=== PATIENT | male | born 1945 | race Caucasian/White ===

== ENCOUNTER → 2023-12-17 | Outpatient (CLI) | payer MEDICARE, BC, SELFPAY ==
--- NOTE | 2023-12-17 | IMM_PTH ---
PATIENT: NANCY SY LOC: [facility] U#:[id number] AGE/SX: 78/M ROOM: RE12/17/[address]: Dr. Brody Topete DO : 1945 BED: DIS: 12/17/2023 SPEC #: [id number] RECD: 12/19/23 13:13 STATUS: JULIANNE REQ #: [id number] TIMUR: 12/17/23 00:[address]: Brody Topete DEPT: IMMUNOHISTOCHEMISTRY RECD BY: Ángel Ye ENTERED: 12/19/23 13:15 SP TYPE: IMMUNO OTHR DR: Dr. George Garrett MD Tissues: Vertebra, NOS Procedures: CD138 (add) CD20 (add) CD3 (add) CD45 (add) CD5 (add) CD79A (add) KAPPA (add) KI-67 (add) LAMBDA (add) P53 (add) Pankeratin (initial) PHYSICIAN & INSTITUTION [address] [address] SPECIMEN INFORMATION: Tissue Source: T-11 kyphoplasty Clinical Info: Wedge compression fracture, T11 Specimen Number: [id number] CPT code: 22256,63694f54 METHODOLOGY: Deparaffinized sections of prefer/formalin-fixed tissue or PAP/DQ stained slides are incubated with monoclonal/polyclonal antibodies/oligonucleotide probes. Localization is made via biotin free immunoperoxidase method. Appropriate controls are performed and reacted as expected. Results on target cell population are indicated in the following table: RESULTS: ANTIBODY / CLONE RESULT AE1-3 (AE1/AE3/PCK26) negative CD3 (PS1) positive CD5 (SP10) positive CD20 (L26) positive, a few cells CD45 (RP2/18) positive CD79a (11E3) positive CD138 (B-A38) positive [place] (polyclonal) positive Lambda (polyclonal) positive P53 (DO-7) negative (null pattern) Ki-67 (30-9) positive, moderate These tests were developed and their performance characteristics determined by [facility]. They may not have been cleared or approved by the U.S. Food and Drug Administration. The FDA has determined that such clearance or approval is not necessary. The above immunohistochemical/dualISH markers are ordered by Dr. Trino Watts and reviewed by the Pathologist. INTERPRETATION: Thoracic 11 vertebral bone: A piece of bone with reactive changes. Plasma cells, polytypic in nature. Negative for malignancy. SJ/mr 12/22/23
--- NOTE | 2023-12-17 07:30 | BONBX_PTH ---
PATIENT: NANCY SY [facility] U#:[id number] AGE/SX: 78/M ROOM: RE12/17/[address]: Dr. Brody Topete DO : 1945 BED: DIS: 12/17/2023 SPEC #: [id number] RECD: 12/17/23 15:20 STATUS: JULIANNE REKalina #: [id number] TIMUR: 12/17/23 07:[address]: Brody Topete DEPT: SURGICAL PATHOLOGY RECD BY: Kaitlin Mahajan ENTERED: 12/18/23 10:14 SP TYPE: Bone OTHR DR: Dr. George Garrett MD [facility] Tissues: Vertebra, NOS Procedures: Decalcification bone/plaque Surgery Specimen Level V HEADER OPERATION: Thoracic 11 kyphoplasty PRE-OP DIAGNOSIS: Wedge compression fracture, T11 TISSUE SUBMITTED: Thoracic 11 vertebral body bone MICROSCOPIC DIAGNOSIS T 11 vertebral body, core biopsy: Chronic repair to reactive change. Polytypic (benign) plasma cell population. See comment. / 12/19/2023 COMMENT Findings are consistent with fracture site. Clinical correlation is suggested. Immunohistochemistry ([id number]) supports the above diagnosis. Case has been reviewed in consultation with Dr. Blackwood who concurs with the above diagnosis. IDC:CATERINA MICROSCOPIC DESCRIPTION Slides are reviewed. GROSS DESCRIPTION Received in fixative is one container labeled with the patient's name and designated Vertebral body T11. The specimen consists of an elongated piece of bone measuring 1.0cm in length and 0.1cm in diameter. The entire specimen is submitted in one cassette after decalcification. CATERINA/ 12/18/2023 TC:3 CPT:16218,02481
== END | disposition home or self-care (01) ==
LOC: LABSPEC 15:20
PROVIDERS: PCP Family Medicine; Visit Provider Orthopaedic Surgery
DX: M48.54XA Collapsed vertebra, not elsewhere classified, thoracic region, initial encounter for fracture (principal)
CPT/HCPCS: 88307; 88311; 88341; 88342

== ENCOUNTER 2024-01-22 16:00 | Outpatient (RCR) | payer MEDICARE, BC, SELFPAY ==
--- NOTE | 2024-01-13 16:40 | HP.PTEVAL_ITS ---
Patient's Visit Information Visit Information Visit Information: NANCY SY is a 78 year old M referred to Physical Therapy by Dr. Brody Topete, DO with a diagnosis of WEDGE COMPRESSION FRACTURE T11-T12 VERTEBRA, DDD LUMBAR. Date of Evaluation: 01/13/24 Physical Therapist: Mark Fuentes, PT, Cert MDT, OCS Visit Plan Frequency: 2-3x /Week Duration: 4-6 Weeks Plan: S/P THORACIC KYPHOPLASTY T11-12 5~ 5 WEEKS AGO PRECAUTION: OSTEOPOROSISAND PT INTERVENTIONS DLS, POSTURAL EX'S , LE FLEXABILITY , BALANCE PROGRAM , FUNCTIONAL STRENGTHENING AND MODALITIES NEEDED Subjective Subjective: This 78 y/o male presents to physical therapy with lumbar pain due to compression fracture. Patient fell Dec 3 at home . Patient fell forward . Patient to ER at [facility] did x-rays lumbar DDD. Patient pain worse thus seen DR Topete did x-rays thoracic spine and MRI showed compression fracture T11-T12. Patient had kyphoplasty T11-T12 ~ 5 weeks . Patient continue to have pain lumbar and ~ 2weeks ago had epidural injection lumbar. Patient located symmetrical lumbar. Aggravating factors walk/standing ~ 10mins ,lifting bending affect housework tasks and ADLS. Alleviating factors sitting and rest. Described ache . Coughing/sneezing-. Bowel/bladder -Denies paresthesia/tingling. Patient is good because laying flat. No prior PT. Medication Hydrocodone Patient condition affects QOL and function. Patient goals to decrease pain. 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: unremarkable FLEXABILITY: severe hamstring tightness MMT: quads/hams 4/5 ,hip flexion 4/5 ,hip abduction 4-/5 ,ankle 4/5 LUMBAR ROM: flexion mod loss ,extension mod/severe loss ,side glides mod loss Special Tests L/S Slump test left side: Negative L/S Slump test right side: Negative L/S Left Straight Leg Raise: Negative L/S Right Straight Leg Raise: Negative Balance/Special Test Scores Functional Gait Assessment Score: 12 % Disability: 60.0000 Oswestry Low Back Score: 33 Goals Goal 1:: Patient to be I with HEP for back Goal Time Frame: 4-6 Weeks Goal 2:: Patient to improve 50% function and less pain to improve ADLS Goal Time Frame: 4-6 Weeks Goal 3:: Patient to improve back oswestry score by 5 points to improve QOL and function. Goal Time Frame: 4-6 Weeks Goal 4:: Patient to be improve lumbar ROM for function of recovery to put on shoes. Goal Time Frame: 4-6 Weeks Goal 5:: Patient to improve functional gait assessment score by 5 points to improve QOL and decrease risk of falls Goal Time Frame: 4-6 Weeks Rehabilitation Potential Physical Therapy Diagnosis: Patient had compression fracture from T11-T12 with kyphoplasty ~ 5 weeks ago with weakness unsteady with gait and lumbar pain with walking and standing , < 10mins impairs function and ADL's thus benefit from skilled PT Rehabilitation Potential: Good Anticipated Interventions Patient/Client Instruction: Educate patient on: Condition and Plan of Care For the Purpose of:: To decrease pain, To increase ROM, To improve muscle performance and motor function, To improve ability to perform ADL's, To increase tolerance to activity/condition/position, To improve ability of physical actions for home/community/work/leisure, To improve health of tissue, To decrease soft tissue restriction and To increase flexibility/ROM Therapeutic Exercise to Include: Strength training, Endurance training, Body mechanics, Postural training, Flexibilty training and Dynamic Lumbar Stabilization For the Purpose of:: To decrease pain, To increase ROM, To improve muscle performance and motor function, To improve ability to perform ADL's, To increase tolerance to activity/condition/position, To improve ability of physical actions for home/community/work/leisure, To improve health of tissue, To decrease soft tissue restriction, To increase flexibility/ROM, To reduce risk of recurrence and To improve tolerance to ADL's TENS: Yes IF ES: Yes Cryotherapy (ice pack, ice massage): Yes Thermo therapy (hot pack): Yes Ultrasound (thermal/non thermal): Yes For the Purpose of:: To decrease pain, To improve nutrient delivery to tissue, To increase oxygenation perfusion, To improve health of tissue and To decrease soft tissue restriction Text: Thank you for the opportunity to evaluate your patient. For Medicare and Medicare HMO plans, please review the plan of care and approve it. It will need to be FAXED BACK to us at [phone] for Medicare purposes. For Medicare only, by signing this I certify the plan of care. Please let me know if there are questions or concerns regarding this plan of care. Physician Signature: Date:
--- NOTE | 2024-04-02 11:50 | HP.PT.NRP ---
Patient Information Patient Information: NANCY SY was seen in my office for initial evaluation on 01/13/24. The following Plan of Care was established for this patient: POC Established Initial Frequency: 2-3x /Week Initial Duration: 4-6 Weeks Anticipated Interventions Patient/Client Instruction: Educate patient on: Condition and Plan of Care For the Purpose of:: To decrease pain, To increase ROM, To improve muscle performance and motor function, To improve ability to perform ADL's, To increase tolerance to activity/condition/position, To improve ability of physical actions for home/community/work/leisure, To improve health of tissue, To decrease soft tissue restriction and To increase flexibility/ROM Therapeutic Exercise to Include: Strength training, Endurance training, Body mechanics, Postural training, Flexibilty training and Dynamic Lumbar Stabilization For the Purpose of:: To decrease pain, To increase ROM, To improve muscle performance and motor function, To improve ability to perform ADL's, To increase tolerance to activity/condition/position, To improve ability of physical actions for home/community/work/leisure, To improve health of tissue, To decrease soft tissue restriction, To increase flexibility/ROM, To reduce risk of recurrence and To improve tolerance to ADL's TENS: Yes IF ES: Yes Cryotherapy (ice pack, ice massage): Yes Thermo therapy (hot pack): Yes Ultrasound (thermal/non thermal): Yes For the Purpose of:: To decrease pain, To improve nutrient delivery to tissue, To increase oxygenation perfusion, To improve health of tissue and To decrease soft tissue restriction Last Seen Last Seen: This patient was last seen in our office . Pertinent comments regarding their Physical therapy will appear below: Patient seen for WEDGE COMPRESSION FRACTURE T11-T12 VERTEBRA, DDD LUMBAR for HEP and postural strengthening and D/C At this point I will be discontinuing this patient from physical therapy. I would be happy to see this patient again in the future if found appropriate by the physician. Thank you! Mark Fuentes, PT, Cert MDT, OCS Balance/Gait/Functional tests Balance/Special Test Scores Functional Gait Assessment Score: 12 % Disability: 60.0000 Oswestry Low Back Score: 33
== END 2024-01-22 19:00 | disposition home or self-care (01) ==
LOC: PT 16:00
PROVIDERS: PCP Nurse Practitioner Primary Care; Referring Provider Orthopaedic Surgery; Visit Provider Orthopaedic Surgery
DX: S22.080D Wedge compression fracture of T11-T12 vertebra, subsequent encounter for fracture with routine healing (principal); M51.36 Other intervertebral disc degeneration, lumbar region; M80.88XD Other osteoporosis with current pathological fracture, vertebra(e), subsequent encounter for fracture with routine healing
CPT/HCPCS: 97110; 97162

== ENCOUNTER 2025-03-23 15:58 | Inpatient (IN) | payer MEDICARE, BC, SELFPAY ==
[2025-03-23] VITALS (16 sets, daily range): BP systolic 117–165; BP diastolic 64–89; PULSE 93–106; RESP 16–23; TEMP 36.6–36.9; O2SAT 92–98; BMI 27.4; BMI 26.6
--- NOTE | 2025-03-23 17:04 | EX.ED.DYSGE1 ---
HPI History of Present Illness Chief Complaint: [facility] Medical History CKD (chronic kidney disease), stage II Former tobacco use BPH (benign prostatic hyperplasia) HLD (hyperlipidemia) Chronic anemia Pancreatitis Osteoporosis Osteopenia Kidney stones Arthritis Allergies Hemorrhoids Hypertension Home Medications ?Medication ?Instructions ?Recorded ?Last Taken ?Type carvedilol 3.125 mg tablet 3.125 mg PO BID 07/09/23 03/22/25 History amlodipine 10 mg tablet 10 mg PO QDAY 07/26/24 03/22/25 History buspirone 15 mg tablet 15 mg PO BID 07/26/24 03/22/25 History calcium carbonate 1,000 mg PO QDAY 07/26/24 03/22/25 History cyanocobalamin (vitamin B-12) 1,000 mcg PO QDAY 07/26/24 03/22/25 History 1,000 mcg capsule losartan 25 mg tablet 100 mg PO DAILY 07/26/24 03/22/25 History melatonin 5 mg capsule mg PO 07/26/24 03/22/25 History paroxetine HCl 40 mg tablet 40 mg PO QDAY 07/26/24 03/22/25 History tamsulosin 0.4 mg capsule (Flomax) 0.4 mg PO QDAY 07/26/24 03/22/25 History cholecalciferol (vitamin D3) 1,250 1,250 mcg PO QWEEK 09/23/24 Unknown History mcg (50,000 unit) capsule acetaminophen 325 mg tablet 650 mg PO Q6H PRN pain 03/23/25 03/23/25 History (Tylenol) Allergy/AdvReac Type Severity Reaction Status Date / Time No Known Allergies Allergy Verified 03/23/25 16:56 Family History Father Alcoholism Brother Depression Suicide attempt Grandmother Parkinson disease Sister Osteoporosis Mother Non-alcoholic cirrhosis Surgical History S/P tonsillectomy S/P appendectomy Hx of cholecystectomy Social History household members: spouse Smoking Status: Former smoker how long ago did patient quit smoking: Quit pipe smoking 15 yrs prior, smoked since 14 ~20 refill/day. alcohol intake: never substance use type: does not use EXAM Physical Exam Const Vital Signs: 03/23/25 15:59 03/23/25 16:56 03/23/25 18:00 Temperature 98.4 F Temperature Source Oral Pulse Rate 102 H 94 Respiratory Rate 16 18 Respiratory Effort Normal Respiratory Pattern Normal Blood Pressure 134/80 H 149/80 H Blood Pressure Mean 98 103 Pulse Ox 94 95 Oxygen Delivery Method Room Air Room Air 03/23/25 19:24 03/23/25 19:30 03/23/25 19:45 Temperature Temperature Source Pulse Rate 93 93 Respiratory Rate 19 H 21 H Respiratory Effort Respiratory Pattern Blood Pressure 148/80 H Blood Pressure Mean 100 Pulse Ox 94 95 Oxygen Delivery Method 03/23/25 20:00 03/23/25 20:00 03/23/25 20:01 Temperature 97.9 F Temperature Source Pulse Rate 97 97 97 Respiratory Rate 20 H 19 H 16 Respiratory Effort Respiratory Pattern Blood Pressure 165/84 H 165/84 H 165/84 H Blood Pressure Mean 111 105 111 Pulse Ox 95 92 98 Oxygen Delivery Method Room Air MDM MDM MDM Narrative Medical decision making narrative: HISTORY OF PRESENT ILLNESS: Chief complaint: Lower extremity swelling, difficulty ambulating 80-year-old male history of osteoporosis, hypertension, presents with a myriad complaints. States last 2 weeks has had worsening swelling in bilateral lower extremities. His daughter and state he started a water pill 2 weeks ago and use it for 3 days but did not relieve his symptoms. Patient is also concerned about difficulty walking and balance issues. Also concerned about chronic back pain. He states balance issues have made been made worse by swelling. He notes shortness of breath and dyspnea on exertion. Denies cough fever chills. Denies any bleeding diathesis. Denies any palpitations. Denies any history of liver dysfunction, alcohol abuse. Denies decreased urination or history of kidney dysfunction. In terms of balance issues his last fall was 1 month ago and has had no imaging of his back despite recent hospitalization. Patient denies active cancer, being bedridden for greater than 3 days, denies unilateral leg swelling, denies any varicose veins, denies any calf tenderness, denies tenderness along deep venous system. Denies major surgery within 12 weeks, recent paralysis, previous DVT. Of note the patient notes a fall approximate 1 month ago which he injured his back. He notes he has a history of compression fractures in the back and this was never evaluated despite his recent hospitalization because his pain was thought to be due to already known compression fractures. REVIEW OF SYSTEMS: Pertinent positives: Leg swelling, shortness of breath, back pain, balance difficulties Pertinent negatives: As per HPI PHYSICAL EXAM: Nursing triage notes reviewed, Vital signs reviewed Constitutional: Elderly, chronically ill-appearing male HENT: MMM Eyes: Pupils equal round and reactive to light, Extraocular muscles intact Neck: No stridor, no JVD, full neck ROM Lungs: Clear to auscultation, No wheezing or rales. No increased work of breathing, no conversational dyspnea, no accessory muscle use, no nasal flaring. No respiratory distress noted Heart: Regular rate and rhythm, No murmurs, No rubs and No gallops, 2+ distal pulses (radial, femoral, posterior tibial) in all extremities Abdomen: Soft, there is no tenderness, rigidity, rebound or guarding, no obvious peritoneal signs, no palpable pulsatile abdominal masses, no auscultated abdominal bruit : No CVAT Back: TTP over thoracolumbar junction Extremities: 3+ pitting edema bilaterally, no calf tenderness, no rashes or signs of infection. Compartments are soft Neuro: No new focal neurological deficits, cranial nerves II through XII intact, 5/5 strength in all present extremities. Intact sensation to light touch in all present extremities, 2+ reflexes bilateral patella tendons. Skin: Skin pallor noted MEDICAL DECISION MAKING: Chief Complaint: please see HPI External records reviewed: Reviewed prior outpatient visits, reviewed medications Factors affecting care: As per HPI Social determinants of health: Elderly History obtained from others: Family Consults: Hospitalist (Dr. Pham) recommended inpatient admission. [facility] Narrative: The patient was initially hemodynamically stable, afebrile and nontoxic-appearing. Exam without focal neurologic deficit. No ataxia, truncal ataxia. Gait was short and shuffling but not ataxic. Cardiopulmonary exam unremarkable for rales or signs of respiratory distress. Lower extremities with symmetric 3+ pitting edema bilaterally. I considered the following differential diagnosis: ICH, intracranial mass, CVA, bony injury to thoracic lumbar spine, ACS, arrhythmia, CHF, liver failure, kidney failure, venous insufficiency I obtained a broad lab and imaging workup to further determine if the patient was suffering from a life-threatening etiology. ALL IMAGES (IF OBTAINED) HAVE BEEN PERSONALLY REVIEWED AND INTERPRETED BY MYSELF. Chest x-ray was read and reviewed personally myself showed no evidence of obvious pneumonia, pneumothorax or heart failure. Radiologist agreed my interpretation CT scan of the brain shows no evidence of ICH CT scan of the thoracic spine is remarkable for T9 compression fracture [address] scan of the lumbar spine compression fracture L1 vertebra Bilateral DVT ultrasounds negative for acute DVT CBC without leukocytosis, mild anemia, no thrombocytopenia BMP without significant electrolyte abnormalities, no acute kidney injury, LFTs without evidence of hepatobiliary obstruction Initial troponin negative. Delta troponin remains negative, third troponin remains negative effectively ruling out ACS The synthesis of the patient's history, physical exam, labs and images suggest venous insufficiency causing lower extremity edema. Chronic compression fractures of the T and L-spine that are causing immobility and difficulty ambulating. Given his advanced age and his difficulty performing ADLs he will require admission to the hospital for further evaluation, management and possible placement. Discussed with hospitalist Dr. Pham The patient and/or family, caregivers express understanding. The patient and/or family, caregivers agrees with the plan. Shared decision making: I will have a discussion with the patient and or visitors regarding risk/benefits of further testing or admission. They will be made aware of of the risk/benefits inherent in this decision they will be given the opportunity to voice understanding. Total critical care time today provided was at least 0 minutes. This excludes separately billable procedures. Critical care time (if documented) is secondary to the patient having high probability of clinically significant/life threatening deterioration in the patient's condition which required my urgent intervention. Impression: 1. Bilateral lower extremity edema 2. Gait dysfunction 3. T9 compression fracture 4. L1 compression fracture Dispo: Admit This note was generated with [employer] dictation software. It may contain incorrect words, spelling, and punctuation that were not noted in review of the chart prior to signing. Lab Data Labs: Laboratory Results - last 24 hr 03/23/25 03/23/25 17:41 19:41 WBC 8.0 RBC 3.92 L Hgb 12.6 L Hct 37.2 L MCV 94.9 H MCH 32.1 H MCHC 33.9 RDW Std Deviation 47.0 H RDW Coeff of Stefanie 13.5 Plt Count 232 MPV 8.9 Immature Gran % (Auto) 0.500 Neut % (Auto) 75.3 H Lymph % (Auto) 10.3 L [place] % (Auto) 10.1 H Eos % (Auto) 3.3 Baso % (Auto) 0.5 Absolute Neuts (auto) 6.0 Absolute Lymphs (auto) 0.82 L Nucleated RBC % 0 Sodium 144 Potassium 3.8 Chloride 105 Carbon Dioxide 28.5 Anion Gap 10 BUN 15 Creatinine 0.84 Estim Creat Clear Calc 71.31 Est GFR (MDRD) Non-Af 89 BUN/Creatinine Ratio 17.4 Glucose 95 Calcium 9.2 Magnesium 1.6 Total Bilirubin 0.29 AST 16 ALT 9 Alkaline Phosphatase 112 Troponin T High Sens 33 H Troponin T Hi Sens 2 Hr 27 H NT pro BNP II 417 Total Protein 6.2 Albumin 3.8 Globulin 2.4 Albumin/Globulin Ratio 1.5 Lipase 21 Radiography Diagnostic Testing: Clinical Impression(s) from Imaging Studies Venous Duplex 03/23/25 17:33 IMPRESSION: No DVT. Reading Location: [facility] Brain CT 03/23/25 18:12 IMPRESSION: No acute intracranial abnormality. Reading Location: [facility] Lumbar Spine CT 03/23/25 18:12 IMPRESSION: 1. Severe compression deformity of L1 vertebral body, likely chronic. However, this does results in moderate spinal canal stenosis. 2. If symptoms persist, further evaluation with MRI is recommended. Reading Location: [facility] Thoracic Spine CT 03/23/25 18:12 IMPRESSION: 1. No acute fracture. 2. Moderate to severe compression deformity of T9 vertebral body with lucency along the anterior aspect, acute fracture can not be excluded. Reading Location: [facility] Chest X-Ray 03/23/25 18:20 IMPRESSION: No Acute Findings. Reading Location: [facility] Discharge Plan Disposition Disposition: Acute Care [facility] Discharge Date/Time: 03/23/25 22:13
--- NOTE | 2025-03-23 17:26 | EKG12_ITS ---
Test Reason : GENERAL Blood Pressure : */* mmHG Vent. Rate : 99 BPM Atrial Rate : 99 BPM P-R Int : 136 ms QRS Dur : 78 ms QT Int : 366 ms P-R-T Axes : 51 -9 -16 degrees QTcB Int : 469 ms Sinus rhythm with occasional Premature ventricular complexes Otherwise normal ECG Confirmed by LISANDRO GOODSON, AMANDA ([id number]), assignment editor BEVERLEY ZAPATA ([id number]) on 03/25/2025 1:10:30 PM Referred By: Confirmed By: AMANDA MCMAHON MD
--- NOTE | 2025-03-23 17:33 | US_ITS ---
PROCEDURE: VENOUS DUPLEX IMAG/EFRAIN EXTREM 03/23/2025 REASON FOR EXAM: M 80 y/o TECHNIQUE: VENOUS DUPLEX IMAG/EFRAIN EXTREM COMPARISON: None. FINDINGS: Normal compressibility and color Doppler flow of the bilateral lower extremities. Edema is visualized in the bilateral calves. US/Venous Duplex Imag/Efrain Extrem IMPRESSION: No DVT. Reading Location: [id number]
[2025-03-23 17:53] LABS: Hematocrit 37.2 % (40-54); Hemoglobin 12.6 g/dL (13.0-16.5); Immature Granulocytes Count 0.040 X10^3/uL (0.0-0.0); Mean Corp Hgb Conc 33.9 g/dL (32-36); Mean Corpuscular Volume 94.9 fL (80-94); Mean Platelet Vol. 8.9 fl (6.2-12.0); NRBC Flagged by Analyzer 0 % (0-5); Platelet Count 232 K/mm3 (150-450); RBC Distribution Width CV 13.5 % (11.6-14.6); RBC Distribution Width SD 47.0 fl (35.1-43.9); Red Blood Count 3.92 M/mm3 (4.6-6.2); White Blood Count 8.0 K/mm3 (4.4-11.0)
--- NOTE | 2025-03-23 18:12 | CT_ITS ---
EXAM: CT Thoracic Spine Without Intravenous Contrast CLINICAL INDICATION: MID BACK PAIN TECHNIQUE: Axial computed tomography images of the thoracic spine without intravenous contrast. This CT exam was performed using one or more of the following dose reduction techniques: automated exposure control, adjustment of the mA and/or kV according to patient size, and/or use of iterative reconstruction technique. COMPARISON: No relevant prior studies available. FINDINGS: VERTEBRAE: Moderate to severe compression deformity of T9 vertebral body with lucency along the anterior aspect, acute fracture can not be excluded. Severe compression deformity of T11 vertebral body status post vertebroplasty. Moderate compression deformity of the L1 vertebral body. No acute fracture. DISCS/SPINAL CANAL/NEURAL FORAMINA: No acute findings. No significant spinal canal stenosis. SOFT TISSUES: Unremarkable. CT/Spine Thoracic without Contras IMPRESSION: 1. No acute fracture. 2. Moderate to severe compression deformity of T9 vertebral body with lucency along the anterior aspect, acute fracture can not be excluded. Reading Location: [id number]
--- NOTE | 2025-03-23 18:12 | CT_ITS ---
PROCEDURE: BRAIN/HEAD WITHOUT CONTRAST 03/23/2025 REASON FOR EXAM: DIZZINESS, BALANCE ISSUE TECHNIQUE: BRAIN/HEAD WITHOUT CONTRAST Coronal and Sagittal reconstruction series were provided. One or more dose reduction techniques were used (e.g., Automated exposure control, adjustment of the mA and/or kV according to patient size, use of iterative reconstruction technique. RADIATION DOSE SUMMARY: CTDlvol: 27.09 mGy DLP: 3804.78 mGycm COMPARISON: None. FINDINGS: Mild global parenchymal atrophy. Chronic microvascular ischemia. No evidence of acute hemorrhage or infarction. No extra-axial blood or fluid collections. The paranasal sinuses are clear. The mastoid air cells are well aerated. The calvarial vault and skull base are intact. CT/Brain/Head without Contrast IMPRESSION: No acute intracranial abnormality. Reading Location: [id number]
--- NOTE | 2025-03-23 18:12 | CT_ITS ---
EXAM: CT Lumbar Spine Without Intravenous Contrast CLINICAL INDICATION: LOW BACK PAIN TECHNIQUE: Axial computed tomography images of the lumbar spine without intravenous contrast. This CT exam was performed using one or more of the following dose reduction techniques: automated exposure control, adjustment of the mA and/or kV according to patient size, and/or use of iterative reconstruction technique. COMPARISON: No relevant prior studies available. FINDINGS: VERTEBRAE: Severe compression deformity of L1 vertebral body, likely chronic. However, this does results in moderate spinal canal stenosis. DISCS/SPINAL CANAL/NEURAL FORAMINA: See above. SOFT TISSUES: Unremarkable. CT/Spine Lumbar without Contrast IMPRESSION: 1. Severe compression deformity of L1 vertebral body, likely chronic. However , this does results in moderate spinal canal stenosis. 2. If symptoms persist, further evaluation with MRI is recommended. Reading Location: [id number]
--- NOTE | 2025-03-23 18:20 | RAD_ITS ---
PROCEDURE: CHEST 1 VIEW (PORTABLE) 03/23/2025 REASON FOR EXAM: DIZZINESS, SHORTNESS OF BREATH TECHNIQUE: Frontal view of the chest. COMPARISON: None. FINDINGS: The heart is partially obscured due to low lung volumes. Left basilar linear opacities which may represent atelectasis versus scar. The lungs are otherwise clear. No acute osseous abnormalities. RAD/Chest 1 View (Portable) IMPRESSION: No Acute Findings. Reading Location: [id number]
[2025-03-23 19:03] LABS: AST(SGOT) 16 U/L (<=37); Alanine Aminotransfer ALT/SGPT 9 U/L (<=46); Albumin, Serum 3.8 g/dL (3.4-4.8); Alkaline Phosphatase 112 U/L (40-129); Anion Gap 10 (5-15); BUN 15 mg/dL (4-19); BUN/Creat Ratio 17.4 RATIO (10-20); Calcium,Total 9.2 mg/dL (7.6-11.0); Carbon Dioxide 28.5 mmol/L (21.0-32.0); Chloride 105 mmol/L (98-108); Estimated Creatinine Clearance 71.31 ml/min (50-250); Globulin 2.4 g/dL (2.2-4.2); Glucose 95 mg/dL (70-99); Lipase 21 U/L (13-75); Potassium 3.8 mmol/L (3.3-5.1); Pro- Brain NATRIURETIC PEPTIDE 417 pg/mL (<=1800); Troponin T High Sensitivity 33 ng/L (<=22)
--- NOTE | 2025-03-23 20:09 | HP.PCM.HOS_ITS ---
HPI - General General Date of Admission: 03/23/25 Date of Service: 03/23/25 Chief Complaint: Acute on Chronic back pain, increased BL LE edema, chronic debility HPI Narrative The patient is a 80 y/o M w/ PMHx: Possible Chronic macrocytic anemia, CKD stage II per GFR trending, OA, Allergic rhinitis, Former tobacco use who presents to [facility] ED on 03/23/2025 with 2 weeks of progressively worsening swelling to bilateral lower extremities started on a recent diuretic pill 2 weeks previous using it for 3 days however it did not improve his symptoms so potentially discontinued with difficulty walking, worsened back discomfort and balance issues made worse by his recent increased swelling with no specific dyspnea or any recent cough, fevers or chills prompting ED evaluation he notes that his most recent fall was within the last 2 to 3 weeks. He states that his back discomfort is primarily worsened with any activity or standing attempts. He has been much more sessile since this discomfort. When he does attempt any kind of ambulation his pain is severe, 10 out of 10 with significant debility. He has been attempting to use assistive devices. He denies any specific increased paresthesias above his baseline. He denies any urinary or stool incontinence. Workup in the ED included T98.4, heart rate 102, BP 134 bradycardia, respiratory rate 16, 94% room air with most recent repeat vital signs heart rate 97, BP 165/84, respiratory rate 16, 98% on room air, CBC with WC 8.0, hemoglobin 12.6, MCV 94.9, platelet 232 with lymphopenia, CMP with BUN/creatinine 15/0.84, GFR 89, troponin initial 33 with repeat delta pending, NT proBNP II 417, bilateral lower extremity duplex ultrasounds negative, CT brain with no acute intracranial abnormality with mild global parenchymal atrophy and chronic microvascular ischemia, CT of the lumbar spine with severe compression deformity L1 vertebral body likely chronic however it does result in moderate spinal canal stenosis, CT of the thoracic spine with no acute fracture, moderate to severe compression deformity T9 vertebral body with lucency along the anterior aspect with inability to rule out an acute fracture, chest x-ray with no acute findings. [facility] Medical History CKD (chronic kidney disease), stage II Former tobacco use BPH (benign prostatic hyperplasia) HLD (hyperlipidemia) Chronic anemia Pancreatitis Osteoporosis Osteopenia Kidney stones Arthritis Allergies Hemorrhoids Hypertension Home Medications ?Medication ?Instructions ?Recorded ?Last Taken ?Type carvedilol 3.125 mg tablet 3.125 mg PO BID 07/09/23 History amlodipine 10 mg tablet 10 mg PO QDAY 07/26/2403/22 History buspirone 15 mg tablet 15 mg PO BID 07/26/24 History calcium carbonate 1,000 mg PO QDAY 07/26/24 History cyanocobalamin (vitamin B-12) 1,000 mcg PO QDAY 03/22/25 History 1,000 mcg capsule losartan 25 mg tablet 100 mg PO DAILY 07/26/24 History melatonin 5 mg capsule mg PO 07/26/24 03/22/25 Hist ory paroxetine HCl 40 mg tablet 40 mg PO QDAY 07/26/24 History tamsulosin 0.4 mg capsule (Flomax) 0.4 mg PO QDAY 07/0303/22/25 History cholecalciferol (vitamin D3) 1,250 1,250 mcg PO QWEEK 09/23/24 Unknown History mcg (50,000 unit) capsule acetaminophen 325 mg tablet 650 mg PO Q6H PRN pain 03/23/25 History (Tylenol) Allergy/AdvReac Type Severity Reaction Status Date / Time No Known Allergies Allergy Verified 03/23/25 16:56 Family History (Updated 03/23/25 @ 21:[address] Merry Pham MD) Father Alcoholism Brother Depression Suicide attempt Grandmother Parkinson disease Sister Osteoporosis Mother Non-alcoholic cirrhosis Surgical History S/P tonsillectomy S/P appendectomy Hx of cholecystectomy Social History (Updated 03/23/25 @ 21:[address] Merry Pham MD) household members: spouse Smoking Status: Former smoker how long ago did patient quit smoking: Quit pipe smoking 15 yrs prior, smoked since 14 ~20 refill/day. alcohol intake: never substance use type: does not use ROS ROS Narrative Admission Review of Systems: CONSTITUTIONAL: No weight loss, fever, chills, weakness or fatigue. HEENT: Eyes: No visual loss, blurred vision, double vision or yellow sclerae. Ears, Nose, Throat: No hearing loss, sneezing, congestion, runny nose or sore throat. SKIN: No rash or itching, lesions, wounds except + occasional stage ecchymoses, abrasion, venous stasis skin changes. CARDIOVASCULAR: + Worsened bilateral lower extremity edema. No chest pain, chest pressure or chest discomfort, palpitations, orthopnea, syncopal events. RESPIRATORY: No shortness of breath, cough or sputum, wheezing, hemoptysis. GASTROINTESTINAL: No anorexia, nausea, vomiting or diarrhea, abdominal pain, melena, BRBPR. GENITOURINARY: + BPH with obstructive pathology. No dysuria, frequency, urgency or acute retention. NEUROLOGICAL: + Gait debility, chronic neuropathy, general debility with falls. No headache, dizziness, syncope, paralysis, ataxia, focal weakness, change in bowel or bladder control, seizure. MUSCULOSKELETAL: + muscle, back pain, joint pain or stiffness. HEMATOLOGIC: + Possible chronic anemia, easy bleeding/bruising. LYMPHATICS: No enlarged nodes. No history of splenectomy. PSYCHIATRIC: + History of anxiety and depression. ENDOCRINOLOGIC: No reports of sweating, cold or heat intolerance. No polyuria or polydipsia. ALLERGIES: No history of asthma, hives, eczema or rhinitis. Vital Signs Vital Signs Vital Signs: 03/23/25 15:59 03/23/25 16:56 03/23/25 18:00 Temperature 98.4 F Temperature Source Oral Pulse Rate 102 H 94 Respiratory Rate 16 18 Respiratory Effort Normal Respiratory Pattern Normal Blood Pressure 134/80 H 149/80 H Blood Pressure Mean 98 103 Pulse Ox 94 95 Oxygen Delivery Method Room Air Room Air 03/23/25 20:00 03/23/25 20:01 Temperature 97.9 F Temperature Source Pulse Rate 97 97 Respiratory Rate 20 H 16 Respiratory Effort Respiratory Pattern Blood Pressure 165/84 H 165/84 H Blood Pressure Mean 111 111 Pulse Ox 95 98 Oxygen Delivery Method Room Air Weight Weight: 185 lb 13.595 oz Body Mass Index (BMI) 27.4 Physical Exam Narrative Physical Examination: General: Awake, alert, oriented x 3 and cooperative, hard of hearing, seated upright in ED bed in no apparent distress, notes currently at rest his back is not hurting but with any movement attempts 10 out of 10 severe. Skin: Normal color, normal turgor, no icterus, no cyanosis except occasional stage ecchymoses, abrasion, bilateral lower extremity venous stasis skin changes. HEENT: AT/NC, EOMI, PERRLA, MMM, no carotid bruits or overt marked JVD noted. Lungs: Mildly diminished, greater bases, appropriate effort, no appreciated rales, ronchi or wheezing. Heart: Regular rate and rhythm; no gallop, rub audible. Abdomen: Soft, overweight, NTTP, ND, mildly hyperactive BS, no HSM. Extremities: No cyanosis, no clubbing, significant pedal to knee bilateral 3+ pitting edema. Neurological: Patient awake, alert, oriented as noted, hard of hearing cognitive function intact; pupils equally reactive to light and accommodation, cranial nerves grossly normal, moving all 4 extremities, no obvious specific focal deficits, strength moderately to severely globally decreased. Psychiatric: Affect appears mildly flat, fatigued, no acute evidence of depressive or anxiety feelings but does have underlying history. Results Lab / Micro Data 03/23/25 17:41 03/23/25 17:41 Labs: Laboratory Results - last 24 hr 03/23/25 17:41: WBC 8.0, RBC 3.92 L, Hgb 12.6 L, Hct 37.2 L, MCV 94.9 H, MCH 32.1 H, MCHC 33.9, RDW Std Deviation 47.0 H, RDW Coeff of Stefanie 13.5, Plt Count 232, MPV 8.9, Immature Gran % (Auto) 0.500, Neut % (Auto) 75.3 H, Lymph % (Auto) 10.3 L, [place] % (Auto) 10.1 H, Eos % (Auto) 3.3, Baso % (Auto) 0.5, Absolute Neuts (auto) 6.0, Absolute Lymphs (auto) 0.82 L, Nucleated RBC % 0, Sodium 144, Potassium 3.8, Chloride 105, Carbon Dioxide 28.5, Anion Gap 10, BUN 15, Creatinine 0.84, Estim Creat Clear Calc 71.31, Est GFR (MDRD) Non-Af 89, BUN/Creatinine Ratio 17.4, Glucose 95, Calcium 9.2, Total Bilirubin 0.29, AST 16, ALT 9, Alkaline Phosphatase 112, Troponin T High Sens 33 H, NT pro BNP II 417, Total Protein 6.2, Albumin 3.8, Globulin 2.4, Albumin/Globulin Ratio 1.5, Lipase 21 Imaging Radiology Impression Venous Duplex 03/23/25 17:33 IMPRESSION: No DVT. Reading Location: [facility] Brain CT 03/23/25 18:12 IMPRESSION: No acute intracranial abnormality. Reading Location: [facility] Lumbar Spine CT 03/23/25 18:12 IMPRESSION: 1. Severe compression deformity of L1 vertebral body, likely chronic. However, this does results in moderate spinal canal stenosis. 2. If symptoms persist, further evaluation with MRI is recommended. Reading Location: [facility] Thoracic Spine CT 03/23/25 18:12 IMPRESSION: 1. No acute fracture. 2. Moderate to severe compression deformity of T9 vertebral body with lucency along the anterior aspect, acute fracture can not be excluded. Reading Location: [facility] Chest X-Ray 03/23/25 18:20 IMPRESSION: No Acute Findings. Reading Location: [facility] Assessment & Plan Assessment/Plan (1) Acute on chronic back pain: PLAN: Plan The patient is a 80 y/o M w/ PMHx: Possible Chronic macrocytic anemia, CKD stage II per GFR trending, OA, Allergic rhinitis, Former tobacco use who presents to [facility] ED on 03/23/2025 with 2 weeks of progressively worsening swelling to bilateral lower extremities started on a recent diuretic pill 2 weeks previous using it for 3 days however it did not improve his symptoms so potentially discontinued with difficulty walking, worsened back discomfort and balance issues made worse by his recent increased swelling with no specific dyspnea or any recent cough, fevers or chills prompting ED evaluation he notes that his most recent fall was within the last 2 to 3 weeks. #1. Acute significant bilateral lower extremity swelling of unclear etiology, anasarca: Will admit to PCU given mildly elevated troponin concurrently as noted, will maintain on fall precautions, will initiate IV judicious pulse dose Lasix regimen to assist with reduction of swelling, will place snug nikki wraps of bilateral lower extremity elevation, duplex ultrasound of note negative, echocardiogram requested, will continue treatment and evaluation as noted of also acute on chronic back pain, magnesium level requested, TSH level requested, FLP in AM. Will maintain on baby aspirin in the interim. #2. Acute on chronic back pain, debility with severe compression deformity L1 vertebral body likely chronic resulting in moderate spinal canal stenosis in addition to moderate to severe compression deformity T9 vertebral body with lucency along the anterior aspect potentially secondary to an acute fracture made more difficult by #1: Complicates presentation especially given lower extremity swelling, will maintain on fall precautions, offloading, lidocaine patches, judicious low-dose IV Toradol scheduled x 5 doses, low-dose 3 times daily 100 mg gabapentin, low-dose as needed tizanidine, breakthrough oral pain medication only as needed, PT/OT/case meds consulted for discharge planning. Will request MRI of the thoracic and lumbar spine. Will consult orthospine. #3. Chronic debility, imbalance, admit FTT: Noted to be ongoing for several weeks, likely secondary to chronic findings of the back as noted #2 CT of the brain with mild global parenchymal atrophy, chronic microvascular ischemic changes with no evidence of any acute hemorrhage or infarct and at this point would have expected findings, unfortunately may be a component of the significant parenchymal atrophy component, will as noted continue treatment #1, #2, continue PT/OT/case management consultation for discharge planning. #4. Mildly elevated troponin of unclear significance: Initial troponin 33, repeat delta pending, will maintain on satellite project site monitor be cautious, will obtain magnesium level, FLP in AM, maintain on low-dose baby aspirin in the interim, if enzymes rise notably would obtain echocardiogram. #5. Chronic Kidney Disease Stage II per GFR trending although not significant amount of data: Admission BUN/Cr 15/0.4, GFR 89, baseline renal function 0.8-0.9 only 2 points of data however, repeat BMP in AM. #6. Hypertension: Continue home regimen including Coreg, losartan, amlodipine, IV Lasix as noted, PRN hydralazine. #7. Hyperlipidemia: Per current list not on statin therapy, FLP in AM. #8. Anxiety and depression: Will continue patient home buspirone as well as paroxetine home regimen, encourage continued outpatient follow-up with PCP as previously arranged. #9. BPH with obstructive pathology: Will continue patient on Flomax regimen, monitor for retention. #10. Former tobacco use: Encourage continued tobacco cessation. #11. DVT prophylaxis: Lovenox. #12. CODE status: Patient HCPOA and living will are not in place but his who is present would be his medical decision-maker if necessary. Discussed CODE status at length including difference between FULL code, DNR-CCA and DNR-CC status. Following discussions about the differences in these status, requested Full Code status. Advanced Care Planning Face to Face Time: 16 minutes. Charges/Coding Visit Charges Inpatient E&M: 05078 Init Hosp L3 Procedures Hospitalists Procedures: 24843 Advncd Care Plan 30 Min
[2025-03-23 21:26] LABS: Troponin T High Sens 2 HR 27 ng/L (<=22)
--- OUTSIDE RECORDS SUMMARY | 2025-03-23 21:34 | XMS RPT_ITS | CCD ---
Author Organization [facility] Care Team Providers Care Esthetician And Manager Medical Spa Name Role Phone YOLANDA GOODSON, ARACELI Ontiveros Primary Care Physician [phone] SUNDAY WOOD LAST MAKER-VEGETABLE LOADER MACHINE OPERATOR, KATHERINE Bowie Primary Care Physicia n SUNDAY, KATHERINE Primary Care Unavailable KATHERINE BRAND Attending Unavailable SUNDAY, KATHERINE Primary Care Unavailable KATHERINE BRAND Attending Unavailable SUNDAY, KATHERINE Primary Care Unavailable KATHERINE BRAND Attending Unavailable INDRA MORENON-VEGETABLE LOADER MACHINE OPERATOROSMEL Admitting Unavailable SUNDAY, KATHERINE Primary Care Unavailable ILDA SCHMIDT DO Attending Unavailable BRODY PATE DO Consulting Unavailable SUNDAY, KATHERINE Primary Care Unavailable EDUARDA APARICIO, DR BADILLO Attending Unavailable KILEY RIVAS-FORREST STONE Admitting Unava ilable SUNDAY KATHERINE Consulting Unavailable SUNDAY, KATHERINE Primary Care Unavailable CURLY GOODSON, DR BENDER Attending UnavailSIERRA Lao DO Attending Unavailable SUNDAY, KATHERINE Primary Care Unavailable SUNDAY, KATHERINE Primary Care Unavailable KATHERINE BRAND Attending Unavailable Abraham Martins Attending Unavailable Sunday STAFFING AND SCHEDULING COORDINATOR, Katherine Primary Care Unavailable Brody Pate Attending Unavailable Araceli Guerrero Primary Care Unavailable Brody Pate Attending Unavailable Broyd Pate Referring Unavailable Sunday STAFFING AND SCHEDULING COORDINATOR, Katherine Primary Care Unavailable Sunday STAFFING AND SCHEDULING COORDINATOR, Katherine Referring Unavailable Amber Greenwood Attending Unavailable Sunday STAFFING AND SCHEDULING COORDINATOR, Katherine Primary Care Unavailable Sunday STAFFING AND SCHEDULING COORDINATOR, Katherine Referring Unavailable Amber Greenwood Attending Unavailable Sunday STAFFING AND SCHEDULING COORDINATOR, Katherine Primary Care Unavailable SUNDAY WOOD LAST MAKER-VEGETABLE LOADER MACHINE OPERATOR, KATHERINE S Primary Care Unava ilable SUNDAY WOOD LAST MAKER-VEGETABLE LOADER MACHINE OPERATOR, KATHERINE S Attending Unava ilable SUNDAY WOOD LAST MAKER-VEGETABLE LOADER MACHINE OPERATOR, KATHERINE S Attending Unava ilable SUNDAY WOOD LAST MAKER-VEGETABLE LOADER MACHINE OPERATOR, KATHERINE S Primary Care Unava ilable SUNDAY WOOD LAST MAKER-VEGETABLE LOADER MACHINE OPERATOR, KATHERINE S Primary Care Unava ilable SUNDAY WOOD LAST MAKER-VEGETABLE LOADER MACHINE OPERATOR, KATHERINE S Attending Unava ilable SUNDAY WOOD LAST MAKER-VEGETABLE LOADER MACHINE OPERATOR, KATHERINE S Attending Unava ilable SUNDAY WOOD LAST MAKER-VEGETABLE LOADER MACHINE OPERATOR, KATHERINE S Primary Care Unava ilable SUNDAY WOOD LAST MAKER-VEGETABLE LOADER MACHINE OPERATOR, KATHERINE S Attending Unava ilable SUNDAY WOOD LAST MAKER-VEGETABLE LOADER MACHINE OPERATOR, KATHERINE S Primary Care Unava ilable SOFIA, SIERRA Attending Unavailable SUNDAY WOOD LAST MAKER-VEGETABLE LOADER MACHINE OPERATOR, KATHERINE S Primary Care Unava ilable SUNDAY WOOD LAST MAKER-VEGETABLE LOADER MACHINE OPERATOR, KATHERINE S Primary Care Unava ilable SHRUTHILALITOCOOPER WOOD LAST MAKER-VEGETABLE LOADER MACHINE OPERATOR, OSMEL Chavez Admitting Unavailable TWILA GOODSON FACP, PAULINO Glaser Attending Unavail able SUNDAY WOOD LAST MAKER-VEGETABLE LOADER MACHINE OPERATOR, KATHERINE S Primary Care Unava ilable ALEKSLEY WOOD LAST MAKER-VEGETABLE LOADER MACHINE OPERATOR, OSMEL Chavez Admitting Unavailable PATE DO, BRODY Consulting Unavailable PLUNK DO, LIDA Attending Unavailable SUNDAY WOOD LAST MAKER-VEGETABLE LOADER MACHINE OPERATOR, KATHERINE S Primary Care Unava ilable SEFFENS WOOD LAST MAKER-VEGETABLE LOADER MACHINE OPERATOR, DANY Attending Unavai lable SUNDAY WOOD LAST MAKER-VEGETABLE LOADER MACHINE OPERATOR, KATHERINE S Attending Unava ilable SUNDAY WOOD LAST MAKER-VEGETABLE LOADER MACHINE OPERATOR, KATHERINE S Primary Care Unava ilable AMBER GREENWOOD MD Attending Unavailable SUNDAY WOOD LAST MAKER-VEGETABLE LOADER MACHINE OPERATOR, KATHERINE S Primary Care Unava ilable SUNDAY WOOD LAST MAKER-VEGETABLE LOADER MACHINE OPERATOR, KATHERINE S Primary Care Unava ilable SUNDAY WOOD LAST MAKER-VEGETABLE LOADER MACHINE OPERATOR, KATHERINE S Attending Unava ilable SUNDAY WOOD LAST MAKER-VEGETABLE LOADER MACHINE OPERATOR, KATHERINE S Attending Unava ilable SUNDAY WOOD LAST MAKER-VEGETABLE LOADER MACHINE OPERATOR, KATHERINE S Primary Care Unava ilable Allergies Allergy Classification Reported Allergen(s) Allergy Type Date of Onset Reaction(s) Facility (20 sources) Atenolol; Translations: [atenolol] Drug Allergy [facility] (20 sources) buPROPion; Translations: [bupropion] Drug Allergy [facility] (20 sources) Erythromycin; Translations: [erythromycin] Drug Allergy [facility] (20 sources) Loratadine; Translations: [loratadine] Drug Allergy [facility] (20 sources) Niacin; Translations: [niacin] Drug Allergy [facility] (17 sources) cyclobenzaprine; Translations: [cyclobenzaprine ] Drug Allergy Drowsiness, function (observable entity) [facility] (17 sources) fexofenadine; Translations: [fexofenadine] Drug Allergy Nausea (finding) [facility] Medications Current Medications Medication Drug Class(es) Dates Sig (Normalized) Sig (Original) acetaminophen 500 mg oral tablet (14 sources) Start: 02-25-2024 take 1 mg by mouth every six hours as needed for pain acetaminophen 500 mg oral tablet mg = tab(s), Oral, q6hr, PRN as needed for pain, 0 Refill(s) Start Date: 02/25/24 Status: Ordered Repeat number: 1 alendronic acid 70 mg oral tablet (4 sources) Bisphosphonate Start: 08-04-2024 End: 07-06-2025 alendronate 70 mg oral tablet Dose : 70 mg = 1 tab(s), Oral, qWeek, # 12 tab(s), 3 Refill(s), Pharmacy: [facility], 167.5, cm, 07/08/24 15:00:00 EST, Height, kg, 07/08/24 15:00:00 EST, Dosing Weight Start Date: 08/04/24 Stop Date: 07/06/25 Status: Ordered Quantity: 12.0 Unit: tab(s) Repeat number: 4 amLODIPine 10 mg oral tablet (16 sources) Dihydropyridine Calcium Channel Alejandro Start: 03-09-2025 amLODIPine 10 mg oral tablet Dose : 5 mg = 0.5 tab(s), Oral, qDay, # 15 tab(s), 3 Refill(s), other reason (Rx) Start Date: 03/09/25 Status: Ordered Quantity: 15.0 Unit: tab(s) Repeat number: 4 Start: 10-19-2024 amLODIPine 10 mg oral tablet Dose : 10 mg = 1 tab(s), Oral, qDay, # 90 tab(s), 3 Refill(s), [id number] 167.5, cm, 08/05/24 14:30:00 EST, Height, kg, 08/18/24 14:39:00 EST, Dosing Weight Start Date: 10/19/24 Status: Ordered Quantity: 90.0 Unit: tab(s) Repeat number: 4 Start: 10-21-2023 amLODIPine 10 mg oral tablet Dose : 10 mg = 1 tab(s), Oral, qDay, # 30 tab(s), 11 Refill(s), [id number] 175.3, cm, 10/21/23 15:04:00 EST, Height, kg, 10/21/23 15:04:00 EST, Dosing Weight Start Date: 10/21/23 Status: Ordered Quantity: 30.0 Unit: tab(s) Repeat number: 12 Start: 10-08-2023 amLODIPine 5 m g oral tablet Dose : 5 mg = 1 tab(s), Oral, qDay, # 30 tab(s), 1 Refill(s), [id number] 175.3, cm, 10/08/23 13:00:00 EST, Height, kg, 10/08/23 13:00:00 EST, Dosing Weight Start Date: 10/08/23 Status: Ordered busPIRone hydrochloride 30 m g oral tablet (16 sources) Start: 02-15-2025 End: 02-10-2026 busPIRone 30 mg oral tablet Dose : 30 mg = 1 tab(s), Oral, BID, # 180 tab(s), 3 Refill(s), Pharmacy: [facility], 167.5, cm, 02/10/25 14:35:00 EDT, Height, kg, 02/10/25 14:35:00 EDT, Dosing Weight Start Date: 02/15/25 Stop Date: 02/10/26 Status: Ordered Quantity: 180.0 Unit: tab(s) Repeat number: 4 Start: 10-21-2023 End: 01-19-2025 busPIRone 15 mg oral tablet Dose : 15 mg = 1 tab(s), Oral, BID, # 200 tab(s), 3 Refill(s), Pharmacy: [facility] #[id number], 175.3, cm, 11/11/23 14:58:00 EDT, Height, kg, 11/11/23 14:58:00 EDT, Dosing Weight Start Date: 12/16/23 Stop Date: 01/19/25 Status: Ordered Quantity: 200.0 Unit: tab(s) Repeat number: 4 Start: 10-08-2023 End: 12-07-2023 busPIRone 10 mg oral tablet Dose : 10 mg = 1 tab(s), Oral, BID, # 60 tab(s), 1 Refill(s), Pharmacy: [facility] #[id number], 175.3, cm, 10/08/23 13:00:00 EST, Height, kg, 10/08/23 13:00:00 EST, Dosing Weight Start Date: 10/08/23 Stop Date: 12/07/23 Status: Ordered calcium carbonate 500 mg chewable tablet (3 sources) Start: 11-03-2024 calcium carbon ate 500 mg (200 mg elemental calcium) oral tablet, chewable Dose : 1,000 mg = 2 tab(s), Chewed, qDay, 0 Refill(s) Start Date: 11/03/24 Status: Ordered Repeat number: 1 carvedilol 12.5 mg oral tablet (20 sources) alpha-Adrenergic Alejandro, beta-Adrenergic Alejandro Start: 12-27-2024 carvedilol 12.5 mg oral tablet Dose : 12.5 mg = 1 tab(s), Oral, BID, # 180 tab(s), 3 Refill(s), Pharmacy: [facility], 167.5, cm, 11/03/24 15:02:00 EST, Height, kg, 11/03/24 15:02:00 EST, Dosing Weight Start Date: 12/27/24 Status: Ordered Quantity: 180.0 Unit: tab(s) Repeat number: 4 Start: 01-06-2024 carvedilol 12. 5 mg oral tablet Dose : 12.5 mg = 1 tab(s), Oral, BID, # 180 tab(s), 3 Refill(s), Pharmacy: [facility], 175.3, cm, 11/11/23 14:58:00 EDT, Height, kg, 11/11/23 14:58:00 EDT, Dosing Weight Start Date: 01/06/24 Status: Ordered Quantity: 180.0 Unit: tab(s) Repeat number: 4 Start: 10-08-2023 carvedilol 12. 5 mg oral tablet Dose : 12.5 mg = 1 tab(s), Oral, BID, # 180 tab(s), 0 Refill(s) Start Date: 10/08/23 Status: Ordered Start: 07-09-2023 take 3.125 mg by margareth th twice daily at mealtime Carvedilol Active 3.125 MG PO TWICE A DAY July 09, 2023 1:00am must administer with a meal/food Start: 04-24-2023 take 1 tablet by margareth th in the morning, then take 0.5 tablet by mouth in the evening Coreg 12.5 mg oral tablet See Instructions, 1 Tablet in the Morning and 0.5 tablet in the PM, # 135 tab(s), 3 Refill(s), Pharmacy: [facility], 175, cm, 04/24/23 13:34:00 EDT, Height, kg, 04/24/23 13:34:00 EDT, Dosing Weight Start Date: 04/24/23 Status: Ordered Start: 11-05-2021 End: 10-31-2022 take 1 tablet by mouth in the morning, then take 0.5 tablet by mouth in the evening Coreg 12.5 mg oral tablet See Instructions, 1 Tablet in the Morning and 0.5 tablet in the PM, # 135 tab(s), 3 Refill(s), Pharmacy: [facility], 175, cm, 06/04/22 14:06:00 EDT, Height, kg, 06/04/22 14:06:00 EDT, Dosing Weight Start Date: 06/04/22 Status: Ordered dexamethasone 6 mg oral tablet (1 source) Corticosteroid Start: 07-09-2023 take 6 mg by mouth once daily Dexamethasone Active 6 MG PO DAILY July 09, 2023 1:00am ferrous sulfate 325 mg delayed release oral tablet (14 sources) Start: 03-17-2019 ferrous sulfate 325 mg (65 mg elemental iron) oral delayed release tablet Dose : 325 mg = 1 tab(s), Oral, qDay, 0 Refill(s) Start Date: 03/17/19 Status: Ordered fexofenadine hydrochloride 180 mg oral tablet (2 sources) Histamine-1 Receptor Antagonist Start: 02-07-2023 Sallie 24 Hour Allergy oral tablet Dose : 180 mg = 1 tab(s), Oral, Daily, # 90 tab(s), 0 Refill(s), Pharmacy: [facility] #[id number], Seasonal allergies Allergic conjunctivitis, 177.8, cm, 02/07/23 14:35:00 EDT, Height Start Date: 02/07/23 Status: Ordered FLUoxetine 10 mg oral capsule (1 source) Serotonin Reuptake Inhibitor Start: 07-09-2023 take 10 mg by mouth once daily Fluoxetine Active 10 MG PO DAILY July 09, 2023 1:00am hydrOXYzine hydrochloride 25 mg oral tablet (8 sources) Antihistamine Start: 02-15-2025 hydrOXYzine hydrochloride 25 mg oral tablet Dose : 25 mg = 1 tab(s), Oral, QID, PRN as needed for anxiety, # 40 tab(s), 3 Refill(s), Pharmacy: [facility], 167.5, cm, 02/10/25 14:35:00 EDT, Height, kg, 02/10/25 14:35:00 EDT, Dosing Weight Start Date: 02/15/25 Status: Ordered Quantity: 40.0 Unit: tab(s) Repeat number: 4 Start: 10-08-2023 Vistaril 25 mg oral capsule Dose : 25 mg = 1 cap(s), Oral, QID, PRN as needed for anxiety, # 40 cap(s), 0 Refill(s), [id number] 175.3, cm, 10/08/23 13:00:00 EST, Height, kg, 10/08/23 13:00:00 EST, Dosing Weight Start Date: 10/08/23 Status: Ordered lidocaine 0.05 mg/mg medicated patch (3 sources) Antiarrhythmic, Amide Local Anesthetic Start: 05-01-2024 End: 05-31-2024 Lidoderm 5% topical patch Apply 2 patch(es), Topical, qDay, remove patches after 12 hours, X 30 day(s), # 60 patch(es), 0 Refill(s), [id number] 167.6, cm, 04/26/24 13:56:00 EDT, Height, 84, kg, 04/26/24 13:56:00 EDT, Dosing Weight Start Date: 05/01/24 Stop Date: 05/31/24 Status: Ordered losartan potassium 100 mg oral tablet (20 sources) Angiotensin 2 Receptor Alejandro Start: 11-15-2024 End: 11-10-2025 losartan 100 mg oral tablet Dose : 100 mg = 1 tab(s), Oral, qDay, # 90 tab(s), 3 Refill(s), Pharmacy: [facility], 167.5, cm, 11/03/24 15:02:00 EST, Height, kg, 11/03/24 15:02:00 EST, Dosing Weight Start Date: 11/15/24 Stop Date: 11/10/25 Status: Ordered Quantity: 90.0 Unit: tab(s) Repeat number: 4 Start: 11-11-2023 End: 11-05-2024 losartan 100 mg oral tablet Dose : 100 mg = 1 tab(s), Oral, qDay, # 90 tab(s), 3 Refill(s), Pharmacy: [place] [id number], 175.3, cm, 10/21/23 15:04:00 EST, Height, kg, 10/21/23 15:04:00 EST, Dosing Weight Start Date: 11/11/23 Stop Date: 11/05/24 Status: Ordered Quantity: 90.0 Unit: tab(s) Repeat number: 4 Start: 09-25-2023 losartan 100 m g oral tablet Dose : 100 mg = 1 tab(s), Oral, qDay, # 30 tab(s), 0 Refill(s), Pharmacy: [facility], 170, cm, 09/25/23 14:04:00 EST, Height, kg, 09/25/23 14:04:00 EST, Dosing Weight Start Date: 09/25/23 Status: Ordered Start: 07-09-2023 take 25 mg by mouth once daily Losartan Active 25 MG PO DAILY July 09, 2023 1:00am Start: 02-17-2023 End: 02-12-2024 losartan 50 mg oral tablet D ose : 50 mg = 1 tab(s), Oral, qDay, # 90 tab(s), 3 Refill(s), Pharmacy: [facility], 177.8, cm, 02/07/23 14:35:00 EDT, Height, kg, 02/07/23 14:35:00 EDT, Dosing Weight Start Date: 02/17/23 Stop Date: 02/12/24 Status: Ordered Start: 12-26-2021 End: 12-21-2022 losartan 50 mg oral tablet D ose : 50 mg = 1 tab(s), Oral, qDay, # 90 tab(s), 3 Refill(s), Pharmacy: [facility], 175.5, cm, 09/20/21 14:05:00 EST, Height, kg, 09/20/21 14:05:00 EST, Dosing Weight Start Date: 12/26/21 Stop Date: 12/21/22 Status: Ordered melatonin 5 mg oral tablet (20 sources) Start: 03-17-2019 melatonin 5 mg oral tablet Dose : 5 mg = 1 tab(s), Oral, qHS, PRN as needed for insomnia, 0 Refill(s) Start Date: 03/17/19 Status: Ordered Repeat number: 1 meloxicam 7.5 mg oral tablet (3 sources) Nonsteroidal Anti-inflammatory Drug Start: 02-10-2025 meloxicam 7.5 mg oral tablet Dose : 7.5 mg = 1 tab(s), Oral, qDay, 0 Refill(s) Start Date: 02/10/25 Status: Ordered Repeat number: 1 PARoxetine hydrochloride 40 mg oral tablet (20 sources) Serotonin Reuptake Inhibitor Start: 09-29-2024 End: 09-24-2025 Paxil 40 mg oral tablet Dose : 40 mg = 1 tab(s), Oral, Daily, # 90 tab(s), 3 Refill(s), Pharmacy: [facility], 167.5, cm, 08/05/24 14:30:00 EST, Height, kg, 08/18/24 14:39:00 EST, Dosing Weight Start Date: 09/29/24 Stop Date: 09/24/25 Status: Ordered Quantity: 90.0 Unit: tab(s) Repeat number: 4 Start: 09-09-2023 End: 09-03-2024 Paxil 40 mg oral tablet Dose : 40 mg = 1 tab(s), Oral, Daily, # 90 tab(s), 3 Refill(s), Pharmacy: [facility], 175, cm, 09/09/23 14:33:00 EST, Height, kg, 09/09/23 14:33:00 EST, Dosing Weight Start Date: 09/09/23 Stop Date: 09/03/24 Status: Ordered Quantity: 90.0 Unit: tab(s) Repeat number: 4 Start: 06-04-2022 End: 05-30-2023 Paxil 40 mg oral tablet Dose : 40 mg = 1 tab(s), Oral, Daily, # 90 tab(s), 3 Refill(s), Pharmacy: [facility], 175, cm, 06/04/22 14:06:00 EDT, Height, kg, 06/04/22 14:06:00 EDT, Dosing Weight Start Date: 06/04/22 Stop Date: 05/30/23 Status: Ordered Start: 06-04-2021 Paxil 40 mg or al tablet Dose : 40 mg = 1 tab(s), Oral, Daily, In absence of PCP, # 90 tab(s), 3 Refill(s), Pharmacy: [facility], 177.8, cm, 02/20/21 13:44:00 EDT, Height, kg, 02/20/21 13:44:00 EDT, Dosing Weight Start Date: 06/04/21 Status: Ordered potassium chloride 10 meq or al tablet (5 sources) Start: 03-10-2025 Potassium Chlo ride (Eqv-K-Tab) 10 mEq oral tablet, extended release Dose : 10 mEq = 1 tab(s), Oral, BID, # 60 tab(s), 11 Refill(s), Pharmacy: [facility], 167.6, cm, 03/09/25 15:00:00 EDT, Height, kg, 03/09/25 15:00:00 EDT, Dosing Weight Start Date: 03/10/25 Status: Ordered Quantity: 60.0 Unit: tab(s) Repeat number: 12 Start: 05-01-2024 End: 05-31-2024 K-Tab 20 mEq oral tablet, ex tended release Dose : 60 mEq = 3 tab(s), Oral, qDay, Take with food- 2 tabs qam, 1 tab qpm, # 90 cap(s), 0 Refill(s), [id number] 167.6, cm, 04/26/24 13:56:00 EDT, Height, kg, 04/26/24 13:56:00 EDT, Dosing Weight Start Date: 05/01/24 Stop Date: 05/31/24 Status: Ordered predniSONE 20 mg oral tablet (1 source) Start: 02-27-2025 End: 03-02-2025 predniSONE 20 mg oral tablet Dose : 40 mg = 2 tab(s), Oral, qDayM, X 3 day(s), # 6 tab(s), 0 Refill(s), 03/02/25 8:00:00 AM EDT, Pharmacy: [facility], 167.6, cm, 02/22/25 22:34:00 EDT, Height, kg, 02/22/25 22:34:00 EDT, Dosing Weight Start Date: 02/27/25 Stop Date: 03/02/25 Status: Ordered Quantity: 6.0 Unit: tab(s) Repeat number: 1 Psyllium (7 sources) Start: 04-25-2024 Metamucil 1.7 gram(s), Oral, PCSupper, PRN constipation, 0 Refill(s) Start Date: 04/25/24 Status: Ordered Start: 04-25-2024 Metamucil 1.7 gram(s), Oral, PCSupper, 0 Refill(s) Start Date: 04/25/24 Status: Ordered tamsulosin hydrochloride 0.4 mg oral capsule (15 sources) alpha-Adrenergic Alejandro Start: 02-22-2025 Floma x 0.4 mg oral capsule Dose : 0.4 mg = 1 cap(s), Oral, qDay, # 90 cap(s), 3 Refill(s), Pharmacy: [facility], 167.5, cm, 02/10/25 14:35:00 EDT, Height, kg, 02/10/25 14:35:00 EDT, Dosing Weight Start Date: 02/22/25 Status: Ordered Quantity: 90.0 Unit: cap(s) Repeat number: 4 Start: 02-25-2024 Flomax 0.4 mg oral capsule Dose : 0.4 mg = 1 cap(s), Oral, qDay, # 30 cap(s), 11 Refill(s), Pharmacy: [facility], 175.3, cm, 02/25/24 11:32:00 EDT, Height, kg, 02/25/24 11:32:00 EDT, Dosing Weight Start Date: 02/25/24 Status: Ordered Quantity: 30.0 Unit: cap(s) Repeat number: 12 Start: 07-03-2020 Flomax 0.4 mg oral capsule Dose : 0.4 mg = 1 cap(s), Oral, qDayPC, # 30 cap(s), 1 Refill(s), [id number] 177.8, cm, 06/26/20 16:09:00 EDT, Height, kg, 06/26/20 16:09:00 EDT, Dosing Weight Start Date: 07/03/20 Status: Ordered terazosin 2 mg oral capsule (7 sources) alpha-Adrenergic Alejandro Start: 09-09-2023 teraz osin 2 mg oral capsule Dose : 2 mg = 1 cap(s), Oral, BID, # 180 cap(s), 3 Refill(s), Pharmacy: [facility], 175, cm, 09/09/23 14:33:00 EST, Height, kg, 09/09/23 14:33:00 EST, Dosing Weight Start Date: 09/09/23 Status: Ordered Start: 03-17-2023 terazosin 2 mg oral capsule Dose : 2 mg = 1 cap(s), Oral, BID, filling in lieu of pcp, # 90 cap(s), 0 Refill(s), Pharmacy: [facility], 177.8, cm, 02/07/23 14:35:00 EDT, Height, kg, 02/07/23 14:35:00 EDT, Dosing Weight Start Date: 03/17/23 Status: Ordered Start: 02-03-2023 terazosin 2 mg oral capsule Dose : 2 mg = 1 cap(s), Oral, BID, filling in lieu of pcp, # 90 cap(s), 0 Refill(s), Pharmacy: [facility], 175, cm, 01/08/23 13:11:00 EDT, Height, kg, 01/08/23 13:11:00 EDT, Dosing Weight Start Date: 02/03/23 Status: Ordered Start: 08-08-2022 terazosin 2 mg oral capsule Dose : 2 mg = 1 cap(s), Oral, BID, # 90 cap(s), 3 Refill(s), Pharmacy: [facility], 175, cm, 06/04/22 14:06:00 EDT, Height, kg, 06/04/22 14:06:00 EDT, Dosing Weight Start Date: 08/08/22 Status: Ordered Start: 01-10-2022 terazosin 2 mg oral capsule Dose : 2 mg = 1 cap(s), Oral, qHS, # 90 cap(s), 3 Refill(s), Pharmacy: [facility], 175, cm, 01/10/22 13:17:00 EDT, Height, kg, 01/10/22 13:17:00 EDT, Dosing Weight Start Date: 01/10/22 Status: Ordered tetrahydrozoline (3 sources) Start: 09-25-2023 Visine A.C. 0. 05%-0.25% ophthalmic solution 0 Refill(s) Start Date: 09/25/23 Status: Ordered Start: 02-10-2023 End: 04-11-2023 Visine A.C. 0.05%-0.25% opht halmic solution Dose = 1 drop(s), Eyes, both, qDay, PRN as needed for ocular congestion, X 30 day(s), # 30 mL, 1 Refill(s), Pharmacy: [facility]/pharmacy #[id number], Allergic conjunctivitis, 177.8, cm, 02/07/23 14:35:00 EDT, Height Start Date: 02/10/23 Stop Date: 04/11/23 Status: Ordered Vitamin B12 1000 mcg oral tablet (17 sources) Start: 04-24-2023 Vitamin B12 10 00 mcg oral tablet Dose : 1,000 mcg = 1 tab(s), Oral, qDay, 0 Refill(s) Start Date: 04/24/23 Status: Ordered Repeat number: 1 Start: 04-24-2023 Vitamin B12 10 00 mcg oral tablet Dose : 1,000 mcg = 1 tab(s), Oral, qDay, 0 Refill(s) Start Date: 04/24/23 Status: Ordered Vitamin C 500 mg oral tablet (14 sources) Start: 03-17-2019 Vitamin C 500 mg oral tablet Dose : 1,000 mg = 2 tab(s), Oral, qDay, 0 Refill(s) Start Date: 03/17/19 Status: Ordered Vitamin D3 1250 mcg (50,000 intl units) oral capsule (9 sources) Start: 06-07-2024 Vitamin D3 125 0 mcg (50,000 intl units) oral capsule Dose : 1,250 mcg = 1 cap(s), Oral, qWeek, # 12 cap(s), 3 Refill(s), Pharmacy: [facility], 167.5, cm, 06/03/24 14:36:00 EDT, Height, kg, 06/03/24 14:36:00 EDT, Dosing Weight Start Date: 06/07/24 Status: Ordered Quantity: 12.0 Unit: cap(s) Repeat number: 4 Start: 06-07-2024 Vitamin D3 125 0 mcg (50,000 intl units) oral capsule Dose : 1,250 mcg = 1 cap(s), Oral, qWeek, # 12 cap(s), 3 Refill(s), Pharmacy: [facility], 167.5, cm, 06/03/24 14:36:00 EDT, Height, kg, 06/03/24 14:36:00 EDT, Dosing Weight Start Date: 06/07/24 Status: Ordered Completed/Discontinued Medications Medication Drug Class(es) Dates Sig (Normalized) Sig (Original) 1 ml denosumab 60 mg/ml prefilled syringe (3 sources) RANK Ligand Inhibitor Start: 11-03-2024 Prolia 60 mg/mL subcutaneous solution Dose : 60 mg = 1 mL, Subcutaneous, q6mo, # 1 mL, 0 Refill(s) Start Date: 11/03/24 Status: Ordered Quantity: 1.0 Unit: mL Repeat number: 1 LORazepam 1 mg oral tablet (15 sources) Benzodiazepine Start: 01-21-2025 End: 01-24-2025 LORazepam 1 mg oral tablet Dose : 1 mg = 1 tab(s), Oral, qDay, PRN as needed for anxiety, in lieu of pcp, # 3 tab(s), 0 Refill(s), Pharmacy: [facility], Anxiety, 167.5, cm, 11/03/24 15:02:00 EST, Height, 76.4, kg, 11/03/24 15:02:00 EST, Dosing Weight Start Date: 01/21/25 Stop Date: 01/24/25 Status: Ordered Quantity: 3.0 Unit: tab(s) Repeat number: 1 Indications: Anxiety disorder, unspecified; Start: 08-05-2024 End: 10-04-2024 LORazepam 1 mg oral tablet D ose : 1 mg = 1 tab(s), Oral, TID, PRN as needed for anxiety, X 30 day(s), # 30 tab(s), 1 Refill(s), 10/04/24 3:14:00 PM EST, Pharmacy: [facility] 1812, Anxiety, 167.5, cm, 08/05/24 14:30:00 EST, Height, 78.7, kg, 08/05/24 14:30:00 EST, Dosing Weight Start Date: 08/05/24 Stop Date: 10/04/24 Status: Ordered Quantity: 30.0 Unit: tab(s) Repeat number: 2 Indication: Anxiety disorder, unspecified Start: 04-25-2024 LORazepam 1 mg oral tablet Dose : 1 mg = 1 tab(s), Oral, TID, PRN as needed for anxiety, 0 Refill(s), 87.5 Start Date: 04/25/24 Status: Ordered Start: 09-09-2023 End: 11-08-2023 LORazepam 1 mg oral tablet D ose : 1 mg = 1 tab(s), Oral, qDay, PRN for anxiety, # 30 tab(s), 1 Refill(s), Pharmacy: [id number], Anxiety, 175, cm, 09/09/23 14:33:00 EST, Height, 89.3, kg, 09/09/23 14:33:00 EST, Dosing Weight Start Date: 09/09/23 Stop Date: 11/08/23 Status: Ordered Start: 09-12-2022 End: 11-11-2022 LORazepam 1 mg oral tablet D ose : 1 mg = 1 tab(s), Oral, qDay, PRN for anxiety, # 30 tab(s), 1 Refill(s), Pharmacy: [facility], Anxiety, 175, cm, 06/04/22 14:06:00 EDT, Height, 90.2, kg, 06/04/22 14:06:00 EDT, Dosing Weight Start Date: 09/12/22 Stop Date: 11/11/22 Status: Ordered Start: 06-04-2021 End: 11-01-2021 LORazepam 1 mg oral tablet D ose : 1 mg = 1 tab(s), Oral, qDay, PRN for anxiety, # 30 tab(s), 4 Refill(s), Pharmacy: [facility], Anxiety, 177.8, cm, 02/20/21 13:44:00 EDT, Height, 96.7, kg, 02/20/21 13:44:00 EDT, Dosing Weight Start Date: 06/04/21 Stop Date: 11/01/21 Status: Ordered valACYclovir 1000 mg oral tablet (1 source) Herpesvirus Nucleoside Analog DNA Polymerase Inhibitor, Herpes Simplex Virus Nucleoside Analog DNA Polymerase Inhibitor, Herpes Zoster Virus Nucleoside Analog DNA Polymerase Inhibitor Start: 10-02-2023 End: 10-09-2023 Valtrex 1 g oral tablet Dose : 1 gram(s) = 1 tab(s), Oral, BID, X 7 day(s), # 14 tab(s), 0 Refill(s), 10/09/23 7:58:00 PM EST, 87.3 Start Date: 10/02/23 Stop Date: 10/09/23 Status: Ordered Problems Active Problems Problem Classification Problem Date Documented Date Episodic/Chronic Anxiety disorders (20 sources) Anxiety; Translations: [Anxiety disorder] Onset: 04-25-2024 03-11-2020 Chronic Chronic obstructive pulmonary disease and bronchiectasis (2 sources) Bronchitis; Translations: [Bronchitis, not specified as acute or chronic] Onset: 02-22-2025 Episodic Deficiency and other anemia (20 sources) Anemia; Translations: [Anemia, unspecified] Episodic E Codes: Fall (1 source) Fall; Translations: [Unspecified fall, initial encounter] Onset: 08-18-2024 Episodic Essential hypertension (20 sources) Hypertensive disorder; Translations: [Essential hypertension] Onset: 04-23-2024 03-11-2020 Chronic Genitourinary symptoms and ill-defined conditions (15 sources) Urinary incontinence 10-15-2023 Chronic Hemorrhoids (1 source) Hemorrhoids; Translations: [Unspecified hemorrhoids] 07-09-2023 Episodic Hyperplasia of prostate (20 sources) Benign prostatic hyperplasia 02-20-2021 Chronic Inflammation; infection of eye (except that caused by tuberculosis or sexually transmitteddisease) (4 sources) Allergic conjunctivitis 02-07-2023 Episodic Inflammatory conditions of male genital organs (1 source) Prostatitis 05-26-2014 Episodic Malaise and fatigue (4 sources) Asthenia; Translations: [Weakness] Onset: 04-27-2024 Episodic Nutritional deficiencies (11 sources) Vitamin D deficiency; Translations: [Vitamin D deficiency, unspecified] Onset: 10-27-2024 06-07-2024 Chronic Osteoporosis (9 sources) Osteoporosis; Translations: [Age-related osteoporosis without current pathological fracture] Onset: 10-27-2024 06-15-2024 Chronic Other connective tissue disease (2 sources) Recurrent falls ; Translations: [Repeated falls] Onset: 02-23-2025 Episodic Other connective tissue disease (1 source) Repeated falls; Translations: [Repeated falls] Onset: 02-22-2025 Episodic Other fractures (2 sources) Closed fracture lumbar vertebra, wedge ; Translations: [Wedge compression fracture of first lumbar vertebra, initial encounter for closed fracture] Onset: 04-23-2024 Episodic Other fractures (14 sources) Compression fracture of thoracic spine 11-19-2023 Episodic Other fractures (1 source) Collapse of vertebra; Translations: [Collapsed vertebra, not elsewhere classified, site unspecified, initial encounter for fracture] Onset: 04-27-2024 Episodic Other fractures (11 sources) Burst fracture of lumbar vertebra 05-20-2024 Episodic Other fractures (1 source) Closed fracture lumbar vertebra, burst ; Translations: [Stable burst fracture of unspecified lumbar vertebra, initial encounter for closed fracture] Episodic Other fractures (1 source) Wedge compression fracture of first lumbar vertebra, initial encounter for closed fracture; Translations: [Wedge compression fracture of first lumbar vertebra, initial encounter for closed fracture] Onset: 02-22-2025 Episodic Other hereditary and degenerative nervous system conditions (3 sources) 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 Other inflammatory condition of skin (18 sources) Scalp itchy 12-10-2022 Episodic Other injuries and conditions due to external causes (2 sources) Abrasion and/or friction burn of skin 04-24-2023 Episodic Other lower respiratory disease (1 source) Solitary nodule of lung; Translations: [Solitary pulmonary nodule] Onset: 02-23-2025 Episodic Other lower respiratory disease (1 source) Lung mass 03-10-2025 Episodic Other lower respiratory disease (1 source) Solitary pulmonary nodule; Translations: [Solitary pulmonary nodule] Onset: 02-22-2025 Episodic Other nervous system disorders (17 sources) Impairment of balance 09-09-2023 Episodic Other screening for suspected conditions (not mental disorders or infectious disease) (2 sources) Encounter for screening for malignant neoplasm of prostate; Translations: [Screening for malignant neoplasm done] Episodic Pneumonia (except that caused by tuberculosis or sexually transmitted disease) (1 source) Pneumonia; Translations: [Pneumonia, unspecified organism] Onset: 04-23-2024 Episodic Residual codes; unclassified (20 sources) Insomnia 03-11-2020 Episodic Residual codes; unclassified (1 source) Edema of lower leg 03-10-2025 Episodic Respiratory failure; insufficiency; arrest (adult) (3 sources) Acute respiratory failure; Translations: [Acute respiratory failure with hypoxia] Onset: 04-23-2024 Episodic Spondylosis; intervertebral disc disorders; other back problems (1 source) Other intervertebral disc degeneration, lumbar region; Translations: [Other intervertebral disc degeneration, lumbar region] Onset: 04-07-2024 Chronic Spondylosis; intervertebral disc disorders; other back problems (7 sources) Low back pain 09-09-2023 Episodic Unclassified (20 sources) Patient encounter status 06-05-2022 Unclassified (2 sources) Pain of left shoulder region 09-25-2023 Viral infection (2 sources) Herpes zoster without complication; Translations: [Zoster without complications] Onset: 10-02-2023 Episodic Past or Other Problems Problem Classification Problem Date Documented Date Episodic/Chronic Deficiency and other anemia (2 sources) Anemia, unspecified; Translations: [Anemia, unspecified] Onset: 05-19-2024 Episodic Fluid and electrolyte disorders (11 sources) Hyperosmolality with hypernatremia; Translations: [Hyperosmolality and hypernatremia] Onset: 04-25-2024 Episodic Genitourinary symptoms and ill-defined conditions (2 sources) Unspecified symptoms and signs involving the genitourinary system; Translations: [Unspecified symptoms and signs involving the genitourinary system] Onset: 08-05-2024 Episodic Other fractures (1 source) Wedge compression fracture of T11-T12 vertebra, subsequent encounter for fracture with routine healing; Translations: [Wedge compression fracture of T11-T12 vertebra, subsequent encounter for fracture with routine healing] Onset: 04-07-2024 Episodic Other fractures (1 source) Collapsed vertebra, not elsewhere classified, thoracic region, initial encounter for fracture; Translations: [Collapsed vertebra, not elsewhere classified, thoracic region, initial encounter for fracture] Onset: 12-25-2023 Episodic Pathological fracture (1 source) Other osteoporosis with current pathological fracture, vertebra(e), initial encounter for fracture; Translations: [Other osteoporosis with current pathological fracture, vertebra(e), initial encounter for fracture] Onset: 04-07-2024 Episodic Results Test Name Value Interpretation Reference Range Facility .GFRon 03-10-2025 Estimated Glomerular Filtration Rate 90 ml/min/1.73sqm Normal [facility] Comment on above: Result Comment: Stages of Chronic Kidney Disease (CKD) Stage Description eGFR(ml/min/1.73 sq.m.) CKD 1 Normal kidney function or >=90 normal kindney function with possible kidney damage (ex. Proteinuria) CKD 2 Kidney damage with mild loss 60-89 of kidney function CKD 3a Mild to moderate loss of kidney 45-59 function CKD 3b Moderate to severe loss of 30-44 of kindey function CKD 4 Severe loss of kidney function 15-29 CKD 5 Kidney failure <15 Note: (go live 2024) the eGFR calculation was updated to the 2020 CKD-EPI creatinine equation without a race factor to calculate the eGFR results. Performed By: #### V IDH #### [address] [address] BMPon 03-10-2025 BUN/Creatinine Ratio 26 ratio Normal 7-27 [facility] Comment on above: Order Comment: stat please Performed By: #### V IDH #### [address] [address] Calcium [Mass/Vol] 8.6 mg/dL Normal 8.4-10.2 [facility] Comment on above: Order Comment: stat please Performed By: #### V IDH #### [address] [address] Chloride [Moles/Vol] 103 mmol/L Normal 98-107 [facility] Comment on above: Order Comment: stat please Performed By: #### V IDH #### [place] [address] CO2 [Moles/Vol] 33 mmol/L High 23-31 [facility] Comment on above: Order Comment: stat please Performed By: #### V IDH #### [address] [address] Creatinine [Mass/Vol] 0.81 mg/dL Normal 0.67-1.17 [facility] Comment on above: Order Comment: stat please Performed By: #### V IDH #### [address] [address] Electrolyte Balance 4.0 mEq/L Normal 4.0-15.0 [facility] Comment on above: Order Comment: stat please Performed By: #### V IDH #### [address] [address] Glucose [Mass/Vol] 109 mg/dL Normal 83-110 [facility] Comment on above: Order Comment: stat please Performed By: #### V IDH #### [address] [address] Potassium [Moles/Vol] 3.2 mmol/L Low 3.5-5.1 [facility] Comment on above: Order Comment: stat please Performed By: #### V IDH #### [facility] [address] [place], [place] [address] Sodium [Moles/Vol] 140 mmol/L Normal 136-145 [facility] Comment on above: Order Comment: stat please Performed By: #### V IDH #### [facility] [address] [place], [place] [address] Urea nitrogen [Mass/Vol] 21 mg/dL High 7-18 [facility] Comment on above: Order Comment: stat please Performed By: #### V IDH #### [facility] [address] [place], [place] [address] LABORATORYOrdered By: SYSTEM SYSTEM on 03-10-2025 Calcium [Mass/Vol] 8.6 mg/dL Normal 8.4 - 10. 2 mg/dL AO ADM SS Chloride [Moles/Vol] 103 mmol/L Normal 98 - 10 7 mmol/L AO ADM SS CO2 [Moles/Vol] 33 mmol/L High 23 - 31 mmol/L AO ADM SS Creatinine [Mass/Vol] 0.81 mg/dL Normal 0.67 - 1.17 mg/dL AO ADM SS Electrolyte Balance 4.0 mEq/L Normal 4.0 - 15 .0 mEq/L AO ADM SS Estimated Glomerular Filtration Rate 90 ml/min/1.73sqm Invalid Interpretation Code AO Chemistry S Comment on above: Interpretive Data: Stages of Chronic Kidney Disease (CKD) Stage Description eGFR(ml/min/1.73 sq.m.) CKD 1 Normal kidney function or >=90 normal kindney function with possible kidney damage (ex. Proteinuria) CKD 2 Kidney damage with mild loss 60-89 of kidney function CKD 3a Mild to moderate loss of kidney 45-59 function CKD 3b Moderate to severe loss of 30-44 of kindey function CKD 4 Severe loss of kidney function 15-29 CKD 5 Kidney failure <15 Note: (go live 2024) the eGFR calculation was updated to the 2020 CKD-EPI creatinine equation without a race factor to calculate the eGFR results. Glucose [Mass/Vol] 109 mg/dL Normal 83 - 110 mg/dL AO ADM SS Potassium [Moles/Vol] 3.2 mmol/L Low 3.5 - 5.1 mmol/L AO ADM SS Sodium [Moles/Vol] 140 mmol/L Normal 136 - 145 mmol/L AO ADM SS Urea nitrogen [Mass/Vol] 21 mg/dL High 7 - 18 mg/dL AO ADM SS Urea nitrogen/Creatinine [Mass ratio] 26 ratio Normal 7 - 27 ratio AO ADM SS .Auto Diffon 03-09-2025 Basophil, Absolute 0.1 10 3/mcL Normal 0.0-0.3 [facility] Comment on above: Performed By: #### F ERR, BMP, ANEU, MORPH, TSH, ADIFF, CBC, GFR, FE, FT4 ####[address] [address] Basophils/100 WBC (Bld) 0.5 % Normal 0.0-2.5 [facility] Comment on above: Performed By: #### F ERR, BMP, ANEU, MORPH, TSH, ADIFF, CBC, GFR, FE, FT4 ####[address] [address] Eosinophil, Absolute 0.2 10 3/mcL Normal 0.0-0.7 [facility] Comment on above: Performed By: #### F ERR, BMP, ANEU, MORPH, TSH, ADIFF, CBC, GFR, FE, FT4 ####[address] [address] Eosinophils/100 WBC (Bld) 2.5 % Normal 0.0-6.0 [facility] Comment on above: Performed By: #### F ERR, BMP, ANEU, MORPH, TSH, ADIFF, CBC, GFR, FE, FT4 ####[address] [address] Lymphocyte, Absolute 0.8 10 3/mcL Low 0.9-4.3 [facility] Comment on above: Performed By: #### F ERR, BMP, ANEU, MORPH, TSH, ADIFF, CBC, GFR, FE, FT4 ####[address] [address] Lymphocytes/100 WBC (Bld) 8.3 % Low 20.0-40.0 [facility] Comment on above: Performed By: #### F ERR, BMP, ANEU, MORPH, TSH, ADIFF, CBC, GFR, FE, FT4 ####[facility] [place], [place] [address] Monocyte, Absolute 0.6 10 3/mcL Normal 0.1-1.4 [facility] Comment on above: Performed By: #### F ERR, BMP, ANEU, MORPH, TSH, ADIFF, CBC, GFR, FE, FT4 ####[place] [address] [place], [place] [address] Monocytes/100 WBC (Bld) 6.4 % Normal 2.0-13.0 [facility] Comment on above: Performed By: #### F ERR, BMP, ANEU, MORPH, TSH, ADIFF, CBC, GFR, FE, FT4 ####[place] [address] [place], [place] [address] Neutrophils/100 WBC (Bld) 82.3 % High 50.0-75.0 [facility] Comment on above: Performed By: #### F ERR, BMP, ANEU, MORPH, TSH, ADIFF, CBC, GFR, FE, FT4 ####[place] [address] [place], [place] [address] .GFRon 03-09-2025 Estimated Glomerular Filtration Rate 90 ml/min/1.73sqm Normal [facility] Comment on above: Result Comment: Stages of Chronic Kidney Disease (CKD) Stage Description eGFR(ml/min/1.73 sq.m.) CKD 1 Normal kidney function or >=90 normal kindney function with possible kidney damage (ex. Proteinuria) CKD 2 Kidney damage with mild loss 60-89 of kidney function CKD 3a Mild to moderate loss of kidney 45-59 function CKD 3b Moderate to severe loss of 30-44 of kindey function CKD 4 Severe loss of kidney function 15-29 CKD 5 Kidney failure <15 Note: (go live 2024) the eGFR calculation was updated to the 2020 CKD-EPI creatinine equation without a race factor to calculate the eGFR results. Performed By: #### F ERR, BMP, ANEU, MORPH, TSH, ADIFF, CBC, GFR, FE, FT4 ####[place] [address] [place], [place] [address] .Morphon 03-09-2025 Platelet Estimate Normal Normal [facility] Comment on above: Performed By: #### F ERR, BMP, ANEU, MORPH, TSH, ADIFF, CBC, GFR, FE, FT4 ####[address] [address] .NEUABSon 03-09-2025 Neutrophil, Absolute 7.9 10 3/mcL Normal 2.3-8.1 [facility] Comment on above: Performed By: #### F ERR, BMP, ANEU, MORPH, TSH, ADIFF, CBC, GFR, FE, FT4 ####[place] [address] [place], [place] [address] BMPon 03-09-2025 BUN/Creatinine Ratio 25 ratio Normal 7-27 [facility] Comment on above: Performed By: #### F ERR, BMP, ANEU, MORPH, TSH, ADIFF, CBC, GFR, FE, FT4 ####[place] [address] [place] [address] Calcium [Mass/Vol] 9.1 mg/dL Normal 8.4-10.2 [facility] Comment on above: Performed By: #### F ERR, BMP, ANEU, MORPH, TSH, ADIFF, CBC, GFR, FE, FT4 ####[place] [address] [place], [place] [address] Chloride [Moles/Vol] 108 mmol/L High 98-107 [facility] Comment on above: Performed By: #### F ERR, BMP, ANEU, MORPH, TSH, ADIFF, CBC, GFR, FE, FT4 ####[address] [address] CO2 [Moles/Vol] 33 mmol/L High 23-31 [facility] Comment on above: Performed By: #### F ERR, BMP, ANEU, MORPH, TSH, ADIFF, CBC, GFR, FE, FT4 ####[place] [address] [place], [place] [address] Creatinine [Mass/Vol] 0.80 mg/dL Normal 0.67-1.17 [facility] Comment on above: Performed By: #### F ERR, BMP, ANEU, MORPH, TSH, ADIFF, CBC, GFR, FE, FT4 ####[address] [address] Electrolyte Balance 8.0 mEq/L Normal 4.0-15.0 [facility] Comment on above: Performed By: #### F ERR, BMP, ANEU, MORPH, TSH, ADIFF, CBC, GFR, FE, FT4 ####[address] [address] Glucose [Mass/Vol] 112 mg/dL High 83-110 [facility] Comment on above: Performed By: #### F ERR, BMP, ANEU, MORPH, TSH, ADIFF, CBC, GFR, FE, FT4 ####[address] [address] Potassium [Moles/Vol] 3.2 mmol/L Low 3.5-5.1 [facility] Comment on above: Performed By: #### F ERR, BMP, ANEU, MORPH, TSH, ADIFF, CBC, GFR, FE, FT4 ####[address] [address] Sodium [Moles/Vol] 149 mmol/L High 136-145 [facility] Comment on above: Performed By: #### F ERR, BMP, ANEU, MORPH, TSH, ADIFF, CBC, GFR, FE, FT4 ####[address] [address] Urea nitrogen [Mass/Vol] 20 mg/dL High 7-18 [facility] Comment on above: Performed By: #### F ERR, BMP, ANEU, MORPH, TSH, ADIFF, CBC, GFR, FE, FT4 ####[address] [address] CBCon 03-09-2025 Erythrocyte distribution width (RBC) [Ratio] 14.2 % Normal 11.5-15.5 [facility] Comment on above: Performed By: #### F ERR, BMP, ANEU, MORPH, TSH, ADIFF, CBC, GFR, FE, FT4 ####[place] [address] [place], [place] [address] Hematocrit (Bld) [Volume fraction] 40.6 % Normal 40.0-52.0 [facility] Comment on above: Performed By: #### F ERR, BMP, ANEU, MORPH, TSH, ADIFF, CBC, GFR, FE, FT4 ####[facility] [place] [id number] Hgb 13.8 G/dL Normal 13.0-17.5 [facility] Comment on above: Performed By: #### F ERR, BMP, ANEU, MORPH, TSH, ADIFF, CBC, GFR, FE, FT4 ####[place] [address] [place] [id number] MCH (RBC) [Entitic mass] 31.9 pg Normal 27.0-33.0 [facility] Comment on above: Performed By: #### F ERR, BMP, ANEU, MORPH, TSH, ADIFF, CBC, GFR, FE, FT4 ####[address] [address] MCHC 34.0 G/dL Normal 32.0-36.0 [facility] Comment on above: Performed By: #### F ERR, BMP, ANEU, MORPH, TSH, ADIFF, CBC, GFR, FE, FT4 ####[place] [address] [place], [place] [address] MCV (RBC) [Entitic vol] 93.9 fL Normal 81.0-100.0 [facility] Comment on above: Performed By: #### F ERR, BMP, ANEU, MORPH, TSH, ADIFF, CBC, GFR, FE, FT4 ####[place] [address] [place], [place] [address] Platelet 281 10 3/mcL Normal 150-450 [facility] Comment on above: Performed By: #### F ERR, BMP, ANEU, MORPH, TSH, ADIFF, CBC, GFR, FE, FT4 ####[place] [address] [place] [id number] Platelet mean volume (Bld) [Entitic vol] 7.1 fL Normal 6.4-10.5 [facility] Comment on above: Performed By: #### F ERR, BMP, ANEU, MORPH, TSH, ADIFF, CBC, GFR, FE, FT4 ####[facility] [place], [place] [address] RBC 4.33 10 6/mcL Low 4.50-6.00 [facility] Comment on above: Performed By: #### F ERR, BMP, ANEU, MORPH, TSH, ADIFF, CBC, GFR, FE, FT4 ####[place] [address] [place], [place] [address] WBC 9.7 10 3/mcL Normal 4.5-10.8 [facility] Comment on above: Performed By: #### F ERR, BMP, ANEU, MORPH, TSH, ADIFF, CBC, GFR, FE, FT4 ####[place] [address] [place], [place] [address] FEon 03-09-2025 Iron [Mass/Vol] 83 ug/dL Normal 65-175 [facility] Comment on above: Performed By: #### F ERR, BMP, ANEU, MORPH, TSH, ADIFF, CBC, GFR, FE, FT4 ####[place] [address] [place], [place] [address] Saturnino 03-09-2025 Ferritin [Mass/Vol] 731.0 ng/mL High 26.0-388.0 [facility] Comment on above: Performed By: #### F ERR, BMP, ANEU, MORPH, TSH, ADIFF, CBC, GFR, FE, FT4 ####[place] [address] [place], [place] [address] FT4on 03-09-2025 Free T4 [Mass/Vol] 1.12 ng/dL Normal 0.76-1.46 [facility] Comment on above: Performed By: #### F ERR, BMP, ANEU, MORPH, TSH, ADIFF, CBC, GFR, FE, FT4 ####[place] [address] [place], [place] [address] LABORATORYOrdered By: SYSTEM SYSTEM on 03-09-2025 Basophils (Bld) [#/Vol] 0.1 103/mcL Normal 0.0 - 0.3 10^3/mcL AO Workflow SS Basophils/100 WBC (Bld) 0.5 % Normal 0.0 - 2.5 % AO Workflow SS Calcium [Mass/Vol] 9.1 mg/dL Normal 8.4 - 10. 2 mg/dL AO ADM SS Chloride [Moles/Vol] 108 mmol/L High 98 - 10 7 mmol/L AO ADM SS CO2 [Moles/Vol] 33 mmol/L High 23 - 31 mmol/L AO ADM SS Creatinine [Mass/Vol] 0.80 mg/dL Normal 0.67 - 1.17 mg/dL AO ADM SS Electrolyte Balance 8.0 mEq/L Normal 4.0 - 15 .0 mEq/L AO ADM SS Eosinophil, Absolute 0.2 103/mcL Normal 0.0 - 0 .7 10^3/mcL AO Workflow SS Eosinophils/100 WBC (Bld) 2.5 % Normal 0.0 - 6.0 % AO Workflow SS Erythrocyte distribution width (RBC) [Ratio] 14.2 % Normal 11.5 - 15.5 % AO Workflow SS Estimated Glomerular Filtration Rate 90 ml/min/1.73sqm Invalid Interpretation Code AO Chemistry S Comment on above: Interpretive Data: Stages of Chronic Kidney Disease (CKD) Stage Description eGFR(ml/min/1.73 sq.m.) CKD 1 Normal kidney function or >=90 normal kindney function with possible kidney damage (ex. Proteinuria) CKD 2 Kidney damage with mild loss 60-89 of kidney function CKD 3a Mild to moderate loss of kidney 45-59 function CKD 3b Moderate to severe loss of 30-44 of kindey function CKD 4 Severe loss of kidney function 15-29 CKD 5 Kidney failure <15 Note: (go live 2024) the eGFR calculation was updated to the 2020 CKD-EPI creatinine equation without a race factor to calculate the eGFR results. Ferritin [Mass/Vol] 731.0 ng/mL High 26.0 - 3 88.0 ng/mL AO ADM SS Free T4 [Mass/Vol] 1.12 ng/dL Normal 0.76 - 1. 46 ng/dL AO ADM SS Glucose [Mass/Vol] 112 mg/dL High 83 - 110 mg/dL AO ADM SS Hematocrit (Bld) [Volume fraction] 40.6 % Normal 40.0 - 52.0 % AO Workflow SS Hemoglobin (Bld) [Mass/Vol] 13.8 G/dL Normal 13.0 - 17.5 G/dL AO Workflow SS Iron [Mass/Vol] 83 ug/dL Normal 65 - 175 mcg/dL AO ADM SS Lymphocytes (Bld) [#/Vol] 0.8 103/mcL Low 0.9 - 4.3 10^3/mcL AO Workflow SS Lymphocytes/100 WBC (Bld) 8.3 % Low 20.0 - 40.0 % AO Workflow SS MCH (RBC) [Entitic mass] 31.9 pg Normal 27.0 - 33.0 pg AO Workflow SS MCHC 34.0 G/dL Normal 32.0 - 36.0 G/dL AO Workflow SS MCV (RBC) [Entitic vol] 93.9 fL Normal 81.0 - 100.0 fL AO Workflow SS Monocytes (Bld) [#/Vol] 0.6 103/mcL Normal 0.1 - 1.4 10^3/mcL AO Workflow SS Monocytes/100 WBC (Bld) 6.4 % Normal 2.0 - 13.0 % AO Workflow SS Neutrophils (Bld) [#/Vol] 7.9 103/mcL Normal 2.3 - 8.1 10^3/mcL AO Workflow SS Neutrophils/100 WBC (Bld) 82.3 % High 50.0 - 75.0 % AO Workflow SS Platelet mean volume (Bld) [Entitic vol] 7.1 fL Normal 6.4 - 10.5 fL AO Workflow SS Platelets (Bld) [#/Vol] 281 103/mcL Normal 150 - 450 10^3/mcL AO Workflow SS Potassium [Moles/Vol] 3.2 mmol/L Low 3.5 - 5.1 mmol/L AO ADM SS RBC (Bld) [#/Vol] 4.33 106/mcL Low 4.50 - 6.0 0 10^6/mcL AO Workflow SS Sodium [Moles/Vol] 149 mmol/L High 136 - 145 mmol/L AO ADM SS TSH Qn 1.32 m[IU]/L Normal 0.36 - 3.74 mcIU/mL AO ADM SS Urea nitrogen [Mass/Vol] 20 mg/dL High 7 - 18 mg/dL AO ADM SS Urea nitrogen/Creatinine [Mass ratio] 25 ratio Normal 7 - 27 ratio AO ADM SS WBC (Bld) [#/Vol] 9.7 103/mcL Normal 4.5 - 10.8 10^3/mcL AO Workflow SS LABORATORYOrdered By: Bossman Sims on 03-09-2025 Platelets LM Ql (Bld) Normal (03/09/25 4:07 PM) Normal AO Hematology S TSHon 03-09-2025 TSH Qn 1.32 m[IU]/L Normal 0.36-3.74 [facility] Comment on above: Performed By: #### F ERR, BMP, ANEU, MORPH, TSH, ADIFF, CBC, GFR, FE, FT4 ####[facility] [place], [place] [address] MYCOon 02-26-2025 Mycoplasma IgG Negative Normal [facility] Comment on above: Result Comment: INTE RPRETATION OF MYCOPLASMA IgG BY EIA: Negative: No detectable M. pneumoniae IgG antibody. Positive: Mycoplasma pneumoniae IgG antibody Detected. Equivocal: Equivocal for IgG antibodies to Mycoplasma pneumoniae. Suggest repeat testing in 10-14 days. Performed By: #### V IDH #### [facility] [address] [place], [place] [address] MRSAPCRon 02-24-2025 MRSA (PCR) Not detected Normal Not Detected [facility] Comment on above: Order Comment: 2024 16:17:44 EDT @AO Notified SAMANTHA Dowell of unlabeled specimen and recollect. [facility] Result Comment: Note s [id number] Performed By: #### M RSAPCR, RESCVID #### [facility] [address] [place] [id number] MRSA PCR Int See Below Normal [facility] Comment on above: Order Comment: 2024 16:17:44 EDT @AO Notified SAMANTHA Dowell of unlabeled specimen and recollect. [facility] Result Comment: Clinical Interpretation: MRSA DNA not detected by Real-Time Polymerase Chain Reaction (PCR). A negative result may be due to intermittent colonization. Colonization may vary depending on patient treatment, patient status, or exposure to high-risk environments. As with all PCR based in vitro diagnostic tests, extremely low levels of target below the limit of detection of the assay may be detected, but results may not be reproducible. Performed By: #### M RSAPCR, RESCVID #### [place] [id number] .Auto Diffon 02-23-2025 Basophil, Absolute 0.1 10 3/mcL Normal 0.0-0.3 [facility] Comment on above: Performed By: #### A DIFF, GFR, CBC, CMP, MG, ANEU #### [address] [address] Lymphocyte, Absolute 0.7 10 3/mcL Low 0.9-4.3 [facility] Comment on above: Performed By: #### A DIFF, GFR, CBC, CMP, MG, ANEU #### [address] [address] Monocyte, Absolute 1.0 10 3/mcL Normal 0.1-1.4 [facility] Comment on above: Performed By: #### A DIFF, GFR, CBC, CMP, MG, ANEU #### [address] [address] .Auto DiffOrdered By: SYSTEM SYSTEM on 02-23-2025 Basophils/100 WBC (Bld) 0.6 % Normal 0.0-2.5 AO Workflow SS Comment on above: Performed By: #### A DIFF, GFR, CBC, CMP, MG, ANEU #### [address] [address] Eosinophil, Absolute 0.1 103/mcL Normal 0.0-0.7 AO Workflow SS Comment on above: Performed By: #### A DIFF, GFR, CBC, CMP, MG, ANEU #### [address] [address] Eosinophils/100 WBC (Bld) 1.1 % Normal 0.0-6.0 AO Workflow SS Comment on above: Performed By: #### A DIFF, GFR, CBC, CMP, MG, ANEU #### [address] [address] Lymphocytes/100 WBC (Bld) 6.9 % Low 20.0-40.0 AO Workflow SS Comment on above: Performed By: #### A DIFF, GFR, CBC, CMP, MG, ANEU #### [place] [address] [place], [place] [address] Monocytes/100 WBC (Bld) 9.4 % Normal 2.0-13.0 AO Workflow SS Comment on above: Performed By: #### A DIFF, GFR, CBC, CMP, MG, ANEU #### [place] [address] [place], [place] [address] Neutrophils/100 WBC (Bld) 82.0 % High 50.0-75.0 AO Workflow SS Comment on above: Performed By: #### A DIFF, GFR, CBC, CMP, MG, ANEU #### [address] [address] .GFRon 02-23-2025 Estimated Glomerular Filtration Rate 95 ml/min/1.73sqm Normal [facility] Comment on above: Result Comment: Stages of Chronic Kidney Disease (CKD) Stage Description eGFR(ml/min/1.73 sq.m.) CKD 1 Normal kidney function or >=90 normal kindney function with possible kidney damage (ex. Proteinuria) CKD 2 Kidney damage with mild loss 60-89 of kidney function CKD 3a Mild to moderate loss of kidney 45-59 function CKD 3b Moderate to severe loss of 30-44 of kindey function CKD 4 Severe loss of kidney function 15-29 CKD 5 Kidney failure <15 Note: (go live 2024) the eGFR calculation was updated to the 2020 CKD-EPI creatinine equation without a race factor to calculate the eGFR results. Performed By: #### M RSAPCR, RESCVID #### [address] [address] .NEUABSon 02-23-2025 Neutrophil, Absolute 8.8 10 3/mcL High 2.3-8.1 [facility] Comment on above: Performed By: #### M RSAPCR, RESCVID #### [address] [address] CBCon 02-23-2025 Hgb 12.9 G/dL Low 13.0-17.5 [facility] Comment on above: Performed By: #### A DIFF, GFR, CBC, CMP, MG, ANEU #### [address] [address] Platelet 204 10 3/mcL Normal 150-450 [facility] Comment on above: Performed By: #### A DIFF, GFR, CBC, CMP, MG, ANEU #### [address] [address] RBC 3.96 10 6/mcL Low 4.50-6.00 [facility] Comment on above: Performed By: #### A DIFF, GFR, CBC, CMP, MG, ANEU #### [address] [address] WBC 10.8 10 3/mcL Normal 4.5-10.8 [facility] Comment on above: Performed By: #### A DIFF, GFR, CBC, CMP, MG, ANEU #### [place] [address] CBCOrdered By: SYSTEM SYSTEM on 02-23-2025 Erythrocyte distribution width (RBC) [Ratio] 14.4 % Normal 11.5-15.5 AO Workflow SS Comment on above: Performed By: #### A DIFF, GFR, CBC, CMP, MG, ANEU #### [place] [address] Hematocrit (Bld) [Volume fraction] 37.0 % Low 40.0-52.0 AO Workflow SS Comment on above: Performed By: #### A DIFF, GFR, CBC, CMP, MG, ANEU #### [address] [address] MCH (RBC) [Entitic mass] 32.5 pg Normal 27.0-33.0 AO Workflow SS Comment on above: Performed By: #### A DIFF, GFR, CBC, CMP, MG, ANEU #### [place] [address] MCHC 34.7 G/dL Normal 32.0-36.0 AO Workflow SS Comment on above: Performed By: #### A DIFF, GFR, CBC, CMP, MG, ANEU #### [place] [id number] MCV (RBC) [Entitic vol] 93.5 fL Normal 81.0-100.0 AO Workflow SS Comment on above: Performed By: #### A DIFF, GFR, CBC, CMP, MG, ANEU #### [place] [address] [place], [place] [address] Platelet mean volume (Bld) [Entitic vol] 6.8 fL Normal 6.4-10.5 AO Workflow SS Comment on above: Performed By: #### A DIFF, GFR, CBC, CMP, MG, ANEU #### [place] [id number] [place], [place] [address] CMPon 02-23-2025 Albumin Level 3.2 G/dL Low 3.4-4.8 [facility] Comment on above: Performed By: #### M RSAPCR, RESCVID #### [address] [address] Albumin/Globulin [Mass ratio] 1.0 {ratio} Low 1.1-2.5 [facility] Comment on above: Performed By: #### M RSAPCR, RESCVID #### [address] [address] ALP [Catalytic activity/Vol] 67 U/L Normal 40-135 [facility] Comment on above: Performed By: #### M RSAPCR, RESCVID #### [address] [address] ALT [Catalytic activity/Vol] 15 U/L Low 16-63 [facility] Comment on above: Performed By: #### M RSAPCR, RESCVID #### [address] [address] AST [Catalytic activity/Vol] 15 U/L Normal 10-40 [facility] Comment on above: Performed By: #### M RSAPCR, RESCVID #### [address] [address] Bili Total 0.7 mg/dL Normal 0.2-1.0 [facility] Comment on above: Result Comment: Use of this assay is not recommended for patients undergoing treatment with eltrombopag due to the potential for falsely elevated results. Performed By: #### M RSAPCR, RESCVID #### [address] [address] BUN/Creatinine Ratio 37 ratio High 7-27 [facility] Comment on above: Performed By: #### M RSAPCR, RESCVID #### [address] [address] Calcium [Mass/Vol] 8.0 mg/dL Low 8.4-10.2 [facility] Comment on above: Performed By: #### M RSAPCR, RESCVID #### [address] [address] Chloride [Moles/Vol] 109 mmol/L High 98-107 [facility] Comment on above: Performed By: #### M RSAPCR, RESCVID #### [address] [address] CO2 [Moles/Vol] 27 mmol/L Normal 23-31 [facility] Comment on above: Performed By: #### M RSAPCR, RESCVID #### [address] [address] Creatinine [Mass/Vol] 0.67 mg/dL Normal 0.67-1.17 [facility] Comment on above: Performed By: #### M RSAPCR, RESCVID #### [address] [address] Electrolyte Balance 8.0 mEq/L Normal 4.0-15.0 [facility] Comment on above: Performed By: #### M RSAPCR, RESCVID #### [address] [address] Globulin 3.2 G/dL Normal 2.7-4.4 [facility] Comment on above: Performed By: #### M RSAPCR, RESCVID #### [address] [address] Glucose [Mass/Vol] 107 mg/dL Normal 83-110 [facility] Comment on above: Performed By: #### M RSAPCR, RESCVID #### [address] [address] Potassium [Moles/Vol] 3.4 mmol/L Low 3.5-5.1 [facility] Comment on above: Performed By: #### M RSAPCR, RESCVID #### [facility] [address] [place] [address] Sodium [Moles/Vol] 144 mmol/L Normal 136-145 [facility] Comment on above: Performed By: #### M RSAPCR, RESCVID #### [facility] [address] [place] [address] Total Protein 6.4 G/dL Normal 6.4-8.2 [facility] Comment on above: Performed By: #### M RSAPCR, RESCVID #### [facility] [address] [place] [address] Urea nitrogen [Mass/Vol] 25 mg/dL High 7-18 [facility] Comment on above: Performed By: #### M RSAPCR, RESCVID #### [facility] [address] [place] [address] ANGIOGRAPHY CHEST W/CONTR Diana 02-23-2025 CT ANGIOGRAPHY CHEST W/CONTRAST ORIGINAL EXAMINATION: CTA OF THE CHEST 02/22/2025 10:28 pm TECHNIQUE: CTA of the chest was performed after the administration of intravenous contrast. Multiplanar reformatted images are provided for review. MIP images are provided for review. Automated exposure control, iterative reconstruction, and/or weight based adjustment of the mA/kV was utilized to reduce the radiation dose to as low as reasonably achievable. COMPARISON: One view chest radiograph from same day, MRI lumbar spine 04/23/2024 CTA chest 10/02/2018 HISTORY: ORDERING SYSTEM PROVIDED HISTORY: Reason for Exam: SOB, hypoxia, evaluate for PE FINDINGS: Age indeterminate chronic appearing fracture of the left lateral 6th, 7th, and 8th ribs. 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 Multilevel degenerative changes of the visualized spine. No acute soft tissue abnormality. Mildly dilated fluid-filled loops of proximal small bowel measuring up to 3.2 cm (image 287 of series 2). Size prominent fluid-filled loops of transverse colon and proximal ascending colon are noted measuring up to 6.3 cm. 1.4 cm left thyroid lobe hypodense nodule, not requiring further follow-up per size criteria.. No pathologically enlarged supraclavicular, axillary, mediastinal or hilar lymph nodes. The heart is normal size. The coronary arteries are atherosclerotic. No pericardial effusion. The thoracic aorta is normal caliber and atherosclerotic. The pulmonary arteries are adequately opacified. No pulmonary embolism. The main pulmonary artery is normal in caliber. 8 mm mass arising from the posterior wall the right mainstem bronchus is new from prior exam. Scattered pleuroparenchymal scarring. Curvilinear consolidation against the left major fissure within the posterior left upper lobe and anterior left lower lobe, new from prior. Trace right pleural effusion with adjacent right lower lobe compressive atelectasis. No pneumothorax, focal consolidation, left pleural effusion, or suspicious pulmonary nodule. IMPRESSION: No pulmonary embolism. Curvilinear consolidation within the left lung against the major fissure, likely represents dependent atelectasis although pneumonia is not excluded. Trace right pleural effusion with layering subsegmental opacities, likely compressive atelectasis. 8 mm mass arising from the posterior wall of the right mainstem bronchus for which benign and malignant etiologies cannot be entirely excluded. Consider repeat CT chest preceded by vigorous coughing (to exclude the possibility of mucous) versus bronchoscopy for further evaluation. Dilated loops of partially visualized small bowel are present in the visualized upper abdomen, which could represent obstruction or ileus. Recommend further evaluation with CT abdomen pelvis. Worsening compression of a severe L1 burst fracture with retropulsion resulting in at least moderate canal stenosis. I have reviewed the resident's preliminary report and agree with findings and impression. Interpreted by: Fam Wagner Preliminary Report By: Araceli Berumen Electronically signed By Fam Wagner Dictated Date: 02/22/2025 11:42:14 PM Prelim Date: 02/23/2025 12:07:36 AM Sign Date: 02/23/2025 4:22:10 PM Ordering Provider: OSMEL BURRELL Interpreted by: Fam Wagner Preliminary Report By: Araceli Berumen Electronically signed By Fam Wagner Dictated Date: 02/22/2025 11:42:14 PM Prelim Date: 02/23/2025 12:07:36 AM Sign Date: 02/23/2025 4:22:10 PM Ordering Provider: OSMEL BURRELL [facility] LABORATORYOrdered By: Rosa Zuniga on 02-23-2025 MRSA (PCR) Not Detected 1 (02/23/25 4:33 PM) Normal Not Detected [facility] Comment on above: Result Comment: [place] [id number] MRSA PCR Int See Below 2 *NA* (02/23/25 4:33 PM) Invalid Interpretation Code AH Auto [facility]iro/Sero SS Comment on above: Result Comment: Clinical Interpretation: MRSA DNA not detected by Real-Time Polymerase Chain Reaction (PCR). A negative result may be due to intermittent colonization. Colonization may vary depending on patient treatment, patient status, or exposure to high-risk environments. As with all PCR based in vitro diagnostic tests, extremely low levels of target below the limit of detection of the assay may be detected, but results may not be reproducible. LABORATORYOrdered By: SYSTEM SYSTEM on 02-23-2025 Albumin BCP dye [Mass/Vol] 3.2 G/dL Low 3.4 - 4.8 G/dL AO ADM SS Albumin/Globulin [Mass ratio] 1.0 {ratio} Low 1.1 - 2.5 ratio AO ADM SS ALP [Catalytic activity/Vol] 67 U/L Normal 40 - 135 U/L AO ADM SS ALT With P-5'-P [Catalytic activity/Vol] 15 U/L Low 16 - 63 U/L AO ADM SS AST With P-5'-P [Catalytic activity/Vol] 15 U/L Normal 10 - 40 U/L AO ADM SS Basophils (Bld) [#/Vol] 0.1 103/mcL Normal 0.0 - 0.3 10^3/mcL AO Workflow SS Bilirubin [Mass/Vol] 0.7 mg/dL Normal 0.2 - 1 .0 mg/dL AO ADM SS Comment on above: Interpretive Data: U se of this assay is not recommended for patients undergoing treatment with eltrombopag due to the potential for falsely elevated results. Calcium [Mass/Vol] 8.0 mg/dL Low 8.4 - 10. 2 mg/dL AO ADM SS Chloride [Moles/Vol] 109 mmol/L High 98 - 10 7 mmol/L AO ADM SS CO2 [Moles/Vol] 27 mmol/L Normal 23 - 31 mmol/L AO ADM SS Creatinine [Mass/Vol] 0.67 mg/dL Normal 0.67 - 1.17 mg/dL AO ADM SS Electrolyte Balance 8.0 mEq/L Normal 4.0 - 15 .0 mEq/L AO ADM SS Estimated Glomerular Filtration Rate 95 ml/min/1.73sqm Invalid Interpretation Code AO Chemistry S Comment on above: Interpretive Data: Stages of Chronic Kidney Disease (CKD) Stage Description eGFR(ml/min/1.73 sq.m.) CKD 1 Normal kidney function or >=90 normal kindney function with possible kidney damage (ex. Proteinuria) CKD 2 Kidney damage with mild loss 60-89 of kidney function CKD 3a Mild to moderate loss of kidney 45-59 function CKD 3b Moderate to severe loss of 30-44 of kindey function CKD 4 Severe loss of kidney function 15-29 CKD 5 Kidney failure <15 Note: (go live 2024) the eGFR calculation was updated to the 2020 CKD-EPI creatinine equation without a race factor to calculate the eGFR results. Globulin 3.2 G/dL Normal 2.7 - 4.4 G/dL AO ADM SS Glucose [Mass/Vol] 107 mg/dL Normal 83 - 110 mg/dL AO ADM SS Hemoglobin (Bld) [Mass/Vol] 12.9 G/dL Low 13.0 - 17.5 G/dL AO Workflow SS Lymphocytes (Bld) [#/Vol] 0.7 103/mcL Low 0.9 - 4.3 10^3/mcL AO Workflow SS Magnesium [Mass/Vol] 2.2 mg/dL Normal 1.8 - 2 .4 mg/dL AO ADM SS Monocytes (Bld) [#/Vol] 1.0 103/mcL Normal 0.1 - 1.4 10^3/mcL AO Workflow SS Neutrophils (Bld) [#/Vol] 8.8 103/mcL High 2.3 - 8.1 10^3/mcL AO Workflow SS Platelets (Bld) [#/Vol] 204 103/mcL Normal 150 - 450 10^3/mcL AO Workflow SS Potassium [Moles/Vol] 3.4 mmol/L Low 3.5 - 5.1 mmol/L AO ADM SS Protein [Mass/Vol] 6.4 G/dL Normal 6.4 - 8.2 G/dL AO ADM SS RBC (Bld) [#/Vol] 3.96 106/mcL Low 4.50 - 6.0 0 10^6/mcL AO Workflow SS Sodium [Moles/Vol] 144 mmol/L Normal 136 - 145 mmol/L AO ADM SS Urea nitrogen [Mass/Vol] 25 mg/dL High 7 - 18 mg/dL AO ADM SS Urea nitrogen/Creatinine [Mass ratio] 37 ratio High 7 - 27 ratio AO ADM SS WBC (Bld) [#/Vol] 10.8 103/mcL Normal 4.5 - 10.8 10^3/mcL AO Workflow SS LABORATORYOrdered By: Clement Oconnor on 02-23-2025 M. pneumoniae IgM IA Ql (S) Negative 11 (02/23/25 5:52 AM) Normal Man Viro/Sero SS Comment on above: Interpretive Data: I NTERPRETATION OF MYCOPLASMA IgM: Negative: IgM to M. pneumoniae Absent, or at levels below the assay limit of detection. Positive: IgM to M. pneumoniae Present. Invalid: Test results are invalid due to invalid internal control. Assay was performed in duplicate. Repeat testing is suggested if clinically indicated. MGon 02-23-2025 Magnesium [Mass/Vol] 2.2 mg/dL Normal 1.8-2.4 [facility] Comment on above: Performed By: #### M RSAPCR, RESCVID #### [address] [address] MYCOon 02-23-2025 Mycoplasma IgM Negative Normal [facility] Comment on above: Result Comment: INTE RPRETATION OF MYCOPLASMA IgM: Negative: IgM to M. pneumoniae Absent, or at levels below the assay limit of detection. Positive: IgM to M. pneumoniae Present. Invalid: Test results are invalid due to invalid internal control. Assay was performed in duplicate. Repeat testing is suggested if clinically indicated. Performed By: #### V IDH #### [facility] [address] [place], [place] [address] RESCVIDon 02-23-2025 Adenovirus Not detected Normal Not Detected [facility] Comment on above: Performed By: #### M RSAPCR, RESCVID #### [address] [address] Bordetella Parapertussis Not detected Normal Not Detected [facility] Comment on above: Performed By: #### M RSAPCR, RESCVID #### [facility] [address] [place] [address] Bordetella Pertussis Not detected Normal Not Detected [facility] Comment on above: Performed By: #### M RSAPCR, RESCVID #### [facility] [address] [place] [address] Chlamydophila pneumoniae Not detected Normal Not Detected [facility] Comment on above: Performed By: #### M RSAPCR, RESCVID #### [facility] [address] [place] [address] Coronavirus 229E (Not COVID-19) Not detected Normal Not Detected [facility] Comment on above: Performed By: #### M RSAPCR, RESCVID #### [facility] [address] [place] [address] Coronavirus HKU1 (Not COVID-19) Not detected Normal Not Detected [facility] Comment on above: Performed By: #### M RSAPCR, RESCVID #### [facility] [address] [place] [address] Coronavirus NL63 (Not COVID-19) Not detected Normal Not Detected [facility] Comment on above: Performed By: #### M RSAPCR, RESCVID #### [facility] [address] [place], [place] [id number] Coronavirus OC43 (Not COVID-19) Not detected Normal Not Detected [facility] Comment on above: Performed By: #### M RSAPCR, RESCVID #### [facility] [address] [place], [place] [id number] Human Metapneumovirus Not detected Normal Not Detected [facility] Comment on above: Performed By: #### M RSAPCR, RESCVID #### [facility] [address] [place] [address] Influenza A Not detected Normal Not Detected [facility] Comment on above: Performed By: #### M RSAPCR, RESCVID #### [facility] [address] [place] [address] Influenza B Not detected Normal Not Detected [facility] Comment on above: Performed By: #### M RSAPCR, RESCVID #### [facility] [address] [place] [address] Mycoplasma pneumoniae Not detected Normal Not Detected [facility] Comment on above: Performed By: #### M RSAPCR, RESCVID #### [facility] [address] [place] [address] Parainfluenza 1 Not detected Normal Not Detected [facility] Comment on above: Performed By: #### M RSAPCR, RESCVID #### [facility] [address] [place], [place] [id number] Parainfluenza 2 Not detected Normal Not Detected [facility] Comment on above: Performed By: #### M RSAPCR, RESCVID #### [facility] [address] [place] [address] Parainfluenza 3 Not detected Normal Not Detected [facility] Comment on above: Performed By: #### M RSAPCR, RESCVID #### [facility] [address] [place] [address] Parainfluenza 4 Not detected Normal Not Detected [facility] Comment on above: Performed By: #### M RSAPCR, RESCVID #### [facility] [address] [place] [address] Respiratory Syncytial Virus Not detected Normal Not Detected [facility] Comment on above: Performed By: #### M RSAPCR, RESCVID #### [facility] [address] [place], [place] [id number] Rhinovirus/Enteroviru s Not detected Normal Not Detected [facility] Comment on above: Performed By: #### M RSAPCR, RESCVID #### [facility] [address] [place], [place] [id number] SARS-CoV-2 (COVID-19) RNA DARYA+probe Ql (Unsp spec) Not detected Normal Not Detected [facility] Comment on above: Result Comment: This assay has been validated in the [facility] for use with nasopharyngeal specimens in [facility]. If a non-validated specimen or test collection method was used, please interpret the results with caution, especially if the test result is negative. A positive test result for COVID-19 indicates that RNA from SARS-CoV-2 was detected, and the patient is infected with the virus and presumed to be contagious. Laboratory test results should always be considered in the context of clinical observations and epidemiological data in making a final diagnosis and patient management decisions. Patient management should follow current CDC guidelines. A negative test result for this test means that SARS-CoV-2 RNA was not present in the specimen above the limit of detection. However, a negative result does not rule out COVID-19 and should not be used as the sole basis for treatment or patient management decisions. A negative result does not exclude the possibility of COVID-19. When diagnostic testing is negative, the possibility of a false negative result should be considered in the context of a patient's recent exposures and the presence of clinical signs and symptoms consistent with COVID-19. The possibility of a false negative result should especially be considered if the patient???s recent exposures or clinical presentation indicate that COVID-19 is likely, and diagnostic tests for other causes of illness (e.g., other respiratory illness) are negative. If COVID-19 is still suspected based on exposure history together with other clinical findings, re-testing should be considered by healthcare providers in consultation with public health authorities. Performed By: #### M RSAPCR, RESCVID #### [place] [address] XR ABDOMEN APon 02-23-2025 XR ABDOMEN AP ORIGINAL EXAMINATION: ONE SUPINE XRAY VIEW(S) OF THE ABDOMEN02/23/2025 10:28 am ABDOMEN 1 VIEW/KUB COMPARISON: None HISTORY: ORDERING SYSTEM PROVIDED HISTORY: Reason for Exam: Dilated loops of bowel on CTA chest FINDINGS: Moderate small and large bowel gas visualized. Numerous tubes/wires project over the upper abdomen and are presumably extrinsic to the patient. Augmentation cement seen in the lower thoracic spine. Contrast material seen in the urinary bladder. Degenerative changes seen of the hips and spine. Enthesophytes noted in the pelvis. IMPRESSION: Nonspecific gaseous distension of the small and large bowel Interpreted by: Derrek John MD Preliminary Report By: Derrek John MD Electronically signed By Derrek John MD Dictated Date: 02/23/2025 11:01:16 AM Prelim Date: 02/23/2025 11:03:02 AM Sign Date: 02/23/2025 11:03:02 AM Ordering Provider: THAO MERINO Normal [facility] .Auto Diffon 02-22-2025 Basophil, Absolute 0.0 10 3/mcL Normal 0.0-0.3 [facility] Comment on above: Performed By: #### M RSAPCR, RESCVID #### [facility] [address] [place] [address] Basophils/100 WBC (Bld) 0.4 % Normal 0.0-2.5 [facility] Comment on above: Performed By: #### M RSAPCR, RESCVID #### [address] [address] Eosinophil, Absolute 0.2 10 3/mcL Normal 0.0-0.7 [facility] Comment on above: Performed By: #### M RSAPCR, RESCVID #### [address] [address] Eosinophils/100 WBC (Bld) 1.8 % Normal 0.0-6.0 [facility] Comment on above: Performed By: #### M RSAPCR, RESCVID #### [address] [address] Lymphocyte, Absolute 0.8 10 3/mcL Low 0.9-4.3 [facility] Comment on above: Performed By: #### M RSAPCR, RESCVID #### [address] [address] Lymphocytes/100 WBC (Bld) 6.3 % Low 20.0-40.0 [facility] Comment on above: Performed By: #### M RSAPCR, RESCVID #### [address] [address] Monocyte, Absolute 1.2 10 3/mcL Normal 0.1-1.4 [facility] Comment on above: Performed By: #### M RSAPCR, RESCVID #### [address] [address] Monocytes/100 WBC (Bld) 9.5 % Normal 2.0-13.0 [facility] Comment on above: Performed By: #### M RSAPCR, RESCVID #### [address] [address] Neutrophils/100 WBC (Bld) 82.0 % High 50.0-75.0 [facility] Comment on above: Performed By: #### M RSAPCR, RESCVID #### [address] [address] .GFRon 02-22-2025 Estimated Glomerular Filtration Rate 91 ml/min/1.73sqm Normal [facility] Comment on above: Result Comment: Stages of Chronic Kidney Disease (CKD) Stage Description eGFR(ml/min/1.73 sq.m.) CKD 1 Normal kidney function or >=90 normal kindney function with possible kidney damage (ex. Proteinuria) CKD 2 Kidney damage with mild loss 60-89 of kidney function CKD 3a Mild to moderate loss of kidney 45-59 function CKD 3b Moderate to severe loss of 30-44 of kindey function CKD 4 Severe loss of kidney function 15-29 CKD 5 Kidney failure <15 Note: (go live 2024) the eGFR calculation was updated to the 2020 CKD-EPI creatinine equation without a race factor to calculate the eGFR results. Performed By: #### V IDH #### [facility] [address] [place] [id number] .MDWon 02-22-2025 Monocyte Distribution Width 19.17 Normal 0.00-20.00 [facility] Comment on above: Result Comment: For ED adult patients suspected of sepsis, MDW<=20.0 does not rule out sepsis or risk of sepsis Performed By: #### M RSAPCR, RESCVID #### [address] [address] .NEUABSon 02-22-2025 Neutrophil, Absolute 10.5 10 3/mcL High 2.3-8.1 A [facility] Comment on above: Performed By: #### M RSAPCR, RESCVID #### [address] [address] BMPon 02-22-2025 BUN/Creatinine Ratio 38 ratio High 7-27 [facility] Comment on above: Performed By: #### M RSAPCR, RESCVID #### [address] [address] Calcium [Mass/Vol] 9.0 mg/dL Normal 8.4-10.2 [facility] Comment on above: Performed By: #### M RSAPCR, RESCVID #### [address] [address] Chloride [Moles/Vol] 106 mmol/L Normal 98-107 [facility] Comment on above: Performed By: #### M RSAPCR, RESCVID #### [address] [address] CO2 [Moles/Vol] 28 mmol/L Normal 23-31 [facility] Comment on above: Performed By: #### M RSAPCR, RESCVID #### [address] [address] Creatinine [Mass/Vol] 0.77 mg/dL Normal 0.67-1.17 [facility] Comment on above: Performed By: #### M RSAPCR, RESCVID #### [address] [address] Electrolyte Balance 8.0 mEq/L Normal 4.0-15.0 [facility] Comment on above: Performed By: #### M RSAPCR, RESCVID #### [address] [address] Glucose [Mass/Vol] 128 mg/dL High 83-110 [facility] Comment on above: Performed By: #### M RSAPCR, RESCVID #### [address] [address] Potassium [Moles/Vol] 3.7 mmol/L Normal 3.5-5.1 [facility] Comment on above: Performed By: #### M RSAPCR, RESCVID #### [address] [address] Sodium [Moles/Vol] 142 mmol/L Normal 136-145 [facility] Comment on above: Performed By: #### M RSAPCR, RESCVID #### [address] [address] Urea nitrogen [Mass/Vol] 29 mg/dL High 7-18 [facility] Comment on above: Performed By: #### M RSAPCR, RESCVID #### [place] [address] CBCon 02-22-2025 Erythrocyte distribution width (RBC) [Ratio] 14.1 % Normal 11.5-15.5 [facility] Comment on above: Performed By: #### M RSAPCR, RESCVID #### [place] [address] Hematocrit (Bld) [Volume fraction] 41.7 % Normal 40.0-52.0 [facility] Comment on above: Performed By: #### M RSAPCR, RESCVID #### [place] [address] Hgb 14.1 G/dL Normal 13.0-17.5 [facility] Comment on above: Performed By: #### M RSAPCR, RESCVID #### [place] [address] MCH (RBC) [Entitic mass] 32.0 pg Normal 27.0-33.0 [facility] Comment on above: Performed By: #### M RSAPCR, RESCVID #### [place] [address] MCHC 33.9 G/dL Normal 32.0-36.0 [facility] Comment on above: Performed By: #### M RSAPCR, RESCVID #### [place] [address] MCV (RBC) [Entitic vol] 94.3 fL Normal 81.0-100.0 [facility] Comment on above: Performed By: #### M RSAPCR, RESCVID #### [place] [address] Platelet 240 10 3/mcL Normal 150-450 [facility] Comment on above: Performed By: #### M RSAPCR, RESCVID #### [place] [address] Platelet mean volume (Bld) [Entitic vol] 7.2 fL Normal 6.4-10.5 [facility] Comment on above: Performed By: #### M RSAPCR, RESCVID #### [facility] [address] [place] [address] RBC 4.42 10 6/mcL Low 4.50-6.00 [facility] Comment on above: Performed By: #### M RSAPCR, RESCVID #### [facility] [address] [place] [address] WBC 12.8 10 3/mcL High 4.5-10.8 [facility] Comment on above: Performed By: #### M RSAPCR, RESCVID #### [address] [address] CVFLURVon 02-22-2025 FLU A PCR Negative Normal Negative [facility] Comment on above: Performed By: #### C VFLURV ####[place] [address] FLU B PCR Negative Normal Negative [facility] Comment on above: Performed By: #### C VFLURV ####[place] [address] RSV PCR Negative Normal Negative [facility] Comment on above: Performed By: #### C VFLURV ####[place] [address] SARS-CoV-2 (COVID-19) RNA DARYA+probe Ql (Unsp spec) Negative Normal Negative [facility] Comment on above: Result Comment: Resu lts from the Xpert Xpress CoV-2/Flu/RSV plus test should be correlated with the clinical history, epidemiological data, and other data available to the clinical evaluating the patient. Performance of the Xpert Xpress CoV-2/Flu/RSV plus test has only been established in nasopharyngeal swab specimen. Erroneous test results might occur from improper specimen collection, failure to follow the recommended sample collection, handling and storage procedures, technical error, or sample mix-up. False negative results may occur if a virus is present at a level below the analytical limit of detection. Viral nucleic acid may persist in vivo, independent of virus viability. Detection of analyte target(s) does not imply that the corresponding virus(es) are infectious or are the causative agents for clinical symptoms. Recent patient exposure to FluMist or other live attenuated influenza vaccines may cause inaccurate positive results. Performed By: #### C VFLURV ####[id number] [place], [place] [address] LABORATORYOrdered By: Fili Sotelo on 02-22-2025 Adenovirus DNA DARYA+non-probe Ql (Nph) Not Detected *NA* (02/22/25 6:51 PM) Invalid Interpretation Code Not Detected AH Auto Viro/Sero SS B. parapertussis [id number] DNA DARYA+non-probe Ql (Nph) Not Detected *NA* (02/22/25 6:51 PM) Invalid Interpretation Code Not Detected AH Auto Viro/Sero SS B. pertussis toxin promoter region DARYA+non-probe Ql (Nph) Not Detected *NA* (02/22/25 6:51 PM) Invalid Interpretation Code Not Detected AH Auto Viro/Sero SS C. pneumoniae DNA DARYA+non-probe Ql (Nph) Not Detected *NA* (02/22/25 6:51 PM) Invalid Interpretation Code Not Detected AH Auto Viro/Sero SS FLUAV RNA DARYA+non-probe Ql (Nph) Not Detected *NA* (02/22/25 6:51 PM) Invalid Interpretation Code Not Detected AH Auto Viro/Sero SS FLUBV RNA DARYA+non-probe Ql (Nph) Not Detected *NA* (02/22/25 6:51 PM) Invalid Interpretation Code Not Detected AH Auto Viro/Sero SS hMPV RNA DARYA+non-probe Ql (Nph) Not Detected *NA* (02/22/25 6:51 PM) Invalid Interpretation Code Not Detected AH Auto Viro/Sero SS M. pneumoniae DNA DARYA+non-probe Ql (Nph) Not Detected *NA* (02/22/25 6:51 PM) Invalid Interpretation Code Not Detected AH Auto Viro/Sero SS Parainfluenza virus 1 RNA DARYA+non-probe Ql (Nph) Not Detected *NA* (02/22/25 6:51 PM) Invalid Interpretation Code Not Detected AH Auto Viro/Sero SS Parainfluenza virus 2 RNA DARYA+non-probe Ql (Nph) Not Detected *NA* (02/22/25 6:51 PM) Invalid Interpretation Code Not Detected AH Auto Viro/Sero SS Parainfluenza virus 3 RNA DARYA+non-probe Ql (Nph) Not Detected *NA* (02/22/25 6:51 PM) Invalid Interpretation Code Not Detected AH Auto Viro/Sero SS Parainfluenza virus 4 RNA DARYA+non-probe Ql (Nph) Not Detected *NA* (02/22/25 6:51 PM) Invalid Interpretation Code Not Detected AH Auto Viro/Sero SS Rhinovirus+Enteroviru s RNA DARYA+non-probe Ql (Nph) Not Detected *NA* (02/22/25 6:51 PM) Invalid Interpretation Code Not Detected AH Auto Viro/Sero SS RSV RNA DARYA+non-probe Ql (Nph) Not Detected *NA* (02/22/25 6:51 PM) Invalid Interpretation Code Not Detected AH Auto Viro/Sero SS SARS-CoV-2 (COVID-19) RNA DARYA+probe Ql (Resp) Not Detected 5 *NA* (02/22/25 6:51 PM) Invalid Interpretation Code Not Detected AH Auto Viro/Sero SS Comment on above: Interpretive Data: T his assay has been validated in the [facility] for use with nasopharyngeal specimens in [facility]. If a non-validated specimen or test collection method was used, please interpret the results with caution, especially if the test result is negative. A positive test result for COVID-19 indicates that RNA from SARS-CoV-2 was detected, and the patient is infected with the virus and presumed to be contagious. Laboratory test results should always be considered in the context of clinical observations and epidemiological data in making a final diagnosis and patient management decisions. Patient management should follow current CDC guidelines. A negative test result for this test means that SARS-CoV-2 RNA was not present in the specimen above the limit of detection. However, a negative result does not rule out COVID-19 and should not be used as the sole basis for treatment or patient management decisions. A negative result does not exclude the possibility of COVID-19. When diagnostic testing is negative, the possibility of a false negative result should be considered in the context of a patient's recent exposures and the presence of clinical signs and symptoms consistent with COVID-19. The possibility of a false negative result should especially be considered if the patient s recent exposures or clinical presentation indicate that COVID-19 is likely, and diagnostic tests for other causes of illness (e.g., other respiratory illness) are negative. If COVID-19 is still suspected based on exposure history together with other clinical findings, re-testing should be considered by healthcare providers in consultation with public health authorities. LABORATORYOrdered By: Graciela Soliz on 02-22-2025 FLUAV RNA DARYA+probe Ql (Resp) Negative (02/22/25 6:51 PM) Normal Negative AO Auto Urine SS FLUBV RNA DARYA+probe Ql (Resp) Negative (02/22/25 6:51 PM) Normal Negative AO Auto Urine SS RSV RNA DARYA+probe Ql (Resp) Negative (02/22/25 6:51 PM) Normal Negative AO Auto Urine SS SARS-CoV-2 (COVID-19) RNA DARYA+probe Ql (Resp) Negative 10 (02/22/25 6:51 PM) Normal Negative AO Auto Urine SS Comment on above: Interpretive Data: R esults from the Xpert Xpress CoV-2/Flu/RSV plus test should be correlated with the clinical history, epidemiological data, and other data available to the clinical evaluating the patient. Performance of the Xpert Xpress CoV-2/Flu/RSV plus test has only been established in nasopharyngeal swab specimen. Erroneous test results might occur from improper specimen collection, failure to follow the recommended sample collection, handling and storage procedures, technical error, or sample mix-up. False negative results may occur if a virus is present at a level below the analytical limit of detection. Viral nucleic acid may persist in vivo, independent of virus viability. Detection of analyte target(s) does not imply that the corresponding virus(es) are infectious or are the causative agents for clinical symptoms. Recent patient exposure to FluMist or other live attenuated influenza vaccines may cause inaccurate positive results. UA RBC 3-5 /HPF Invalid Interpretation Code 0-2 AO Auto Urine SS UA Squam Epithelial Negative Normal 0-20 AO Au to Urine SS WBC LM.HPF (Urine sed) [#/Area] 0-2 /HPF Normal 0-5 AO Auto Urine SS LABORATORYOrdered By: Joyce Daniels on 02-22-2025 Appearance (U) Clear (02/22/25 5:56 PM) Normal Clear AO Auto Urine SS Bilirubin Ql (U) Moderate *ABN* (02/22/25 5:56 PM) Invalid Interpretation Code Negative AO Auto Urine SS Color (U) Yellow (02/22/25 5:56 PM) Normal AO Auto Urine SS Glucose Test strip (U) [Mass/Vol] Negative Normal Negative AO Auto Urine SS Hemoglobin Auto test strip (U) [Mass/Vol] Negative (02/22/25 5:56 PM) Normal Negative AO Auto Urine SS Ketones Ql (U) 15 mg/dL Invalid Interpretation Code Negative AO Auto Urine SS UA Leuk Est Negative (02/22/25 5:56 PM) Normal Negative AO Auto Urine SS UA Nitrite Negative (02/22/25 5:56 PM) Normal Negative AO Auto Urine SS UA pH 6.0 (02/22/25 5:56 PM) Normal 5.0 - 8.0 AO Auto Urine SS UA Protein 30 mg/dL Normal Negative AO Auto Urine SS UA Spec Grav 1.025 (02/22/25 5:56 PM) Normal 1.015-1.025 AO Auto Urine SS UA Specimen Type Void (02/22/25 5:56 PM) Normal AO Auto Urine SS UA Urobilinogen 2.0 E.U./dL Invalid Interpretation Code 0.2-1.0 AO Auto Urine SS LABORATORYOrdered By: SYSTEM SYSTEM on 02-22-2025 Basophils (Bld) [#/Vol] 0.0 103/mcL Normal 0.0 - 0.3 10^3/mcL AO Workflow SS Basophils/100 WBC (Bld) 0.4 % Normal 0.0 - 2.5 % AO Workflow SS Calcium [Mass/Vol] 9.0 mg/dL Normal 8.4 - 10. 2 mg/dL AO ADM SS Chloride [Moles/Vol] 106 mmol/L Normal 98 - 10 7 mmol/L AO ADM SS CO2 [Moles/Vol] 28 mmol/L Normal 23 - 31 mmol/L AO ADM SS Creatinine [Mass/Vol] 0.77 mg/dL Normal 0.67 - 1.17 mg/dL AO ADM SS Electrolyte Balance 8.0 mEq/L Normal 4.0 - 15 .0 mEq/L AO ADM SS Eosinophil, Absolute 0.2 103/mcL Normal 0.0 - 0 .7 10^3/mcL AO Workflow SS Eosinophils/100 WBC (Bld) 1.8 % Normal 0.0 - 6.0 % AO Workflow SS Erythrocyte distribution width (RBC) [Ratio] 14.1 % Normal 11.5 - 15.5 % AO Workflow SS Estimated Glomerular Filtration Rate 91 ml/min/1.73sqm Invalid Interpretation Code AO Chemistry S Comment on above: Interpretive Data: Stages of Chronic Kidney Disease (CKD) Stage Description eGFR(ml/min/1.73 sq.m.) CKD 1 Normal kidney function or >=90 normal kindney function with possible kidney damage (ex. Proteinuria) CKD 2 Kidney damage with mild loss 60-89 of kidney function CKD 3a Mild to moderate loss of kidney 45-59 function CKD 3b Moderate to severe loss of 30-44 of kindey function CKD 4 Severe loss of kidney function 15-29 CKD 5 Kidney failure <15 Note: (go live 2024) the eGFR calculation was updated to the 2020 CKD-EPI creatinine equation without a race factor to calculate the eGFR results. Glucose [Mass/Vol] 128 mg/dL High 83 - 110 mg/dL AO ADM SS Hematocrit (Bld) [Volume fraction] 41.7 % Normal 40.0 - 52.0 % AO Workflow SS Hemoglobin (Bld) [Mass/Vol] 14.1 G/dL Normal 13.0 - 17.5 G/dL AO Workflow SS Lymphocytes (Bld) [#/Vol] 0.8 103/mcL Low 0.9 - 4.3 10^3/mcL AO Workflow SS Lymphocytes/100 WBC (Bld) 6.3 % Low 20.0 - 40.0 % AO Workflow SS MCH (RBC) [Entitic mass] 32.0 pg Normal 27.0 - 33.0 pg AO Workflow SS MCHC 33.9 G/dL Normal 32.0 - 36.0 G/dL AO Workflow SS MCV (RBC) [Entitic vol] 94.3 fL Normal 81.0 - 100.0 fL AO Workflow SS Monocyte distribution width Auto (Bld) [Entitic vol] 19.17 1 Normal 0.00 - 20.00 AO Workflow SS Comment on above: Result Comment: For ED adult patients suspected of sepsis, MDW<=20.0 does not rule out sepsis or risk of sepsis Monocytes (Bld) [#/Vol] 1.2 103/mcL Normal 0.1 - 1.4 10^3/mcL AO Workflow SS Monocytes/100 WBC (Bld) 9.5 % Normal 2.0 - 13.0 % AO Workflow SS Natriuretic peptide.B prohormone N-Terminal [Mass/Vol] 303 pg/mL Normal 0 - 450 pg/mL AO ADM SS Comment on above: Interpretive Data: N T-proBNP results of less than 300 pg/mL effectively rules out acute congestive heart failure with 99% negative predictive value. Neutrophils (Bld) [#/Vol] 10.5 103/mcL High 2.3 - 8.1 10^3/mcL AO Workflow SS Neutrophils/100 WBC (Bld) 82.0 % High 50.0 - 75.0 % AO Workflow SS Platelet mean volume (Bld) [Entitic vol] 7.2 fL Normal 6.4 - 10.5 fL AO Workflow SS Platelets (Bld) [#/Vol] 240 103/mcL Normal 150 - 450 10^3/mcL AO Workflow SS Potassium [Moles/Vol] 3.7 mmol/L Normal 3.5 - 5.1 mmol/L AO ADM SS RBC (Bld) [#/Vol] 4.42 106/mcL Low 4.50 - 6.0 0 10^6/mcL AO Workflow SS Sodium [Moles/Vol] 142 mmol/L Normal 136 - 145 mmol/L AO ADM SS Troponin I.cardiac DL <= 0.01 ng/mL [Mass/Vol] 9 ng/L Normal 0 - 76 ng/L AO ADM SS Comment on above: Interpretive Data: H igh Sensitive Troponin I Reference Ranges: Female: 0-51 ng/L Male: 0-76 ng/L Testing performed on [employer] using a homogeneous sandwich chemiluminescent immunoassay based on [employer] technology. Urea nitrogen [Mass/Vol] 29 mg/dL High 7 - 18 mg/dL AO ADM SS Urea nitrogen/Creatinine [Mass ratio] 38 ratio High 7 - 27 ratio AO ADM SS WBC (Bld) [#/Vol] 12.8 103/mcL High 4.5 - 10.8 10^3/mcL AO Workflow SS No Panel Informationon 02-22 Legionella Urine Ag Presumptive negative for L. pneumophila serogroup 1 antigen in urine, suggesting no recent or current infection. Legionnaire's disease cannot be ruled out since other serogroups and species may also cause disease. [facility] Microscopic examination of blood, culture Culture has been received in lab and is no growth to date. Routine cultures are held for 5 days. [facility] Streptococcus Pneumoniae Urine Antig Presumptive negative for pneumococcal pneumonia, suggesting no current or recent pneumococcal infection. Infection due to Strep pneumoniae cannot be ruled out since the antigen present in the sample may be below the detection limit of the test. [facility] Comment on above: This test has not be en evaluated on patients taking antibiotics for greater than 24 hours or on patients who have recently completed an antibiotic regimen. The accuracy of this test has not been proven in young children. PBNPon 02-22-2025 Natriuretic peptide B (Bld) [Mass/Vol] 303 pg/mL Normal 0-450 [facility] Comment on above: Result Comment: NT-p roBNP results of less than 300 pg/mL effectively rules out acute congestive heart failure with 99% negative predictive value. Performed By: #### V IDH #### [address] [address] [facility] 02-22-2025 High Sensitivity Troponin I 9 ng/L Normal 0-76 [facility] Comment on above: Result Comment: High Sensitive Troponin I Reference Ranges: Female: 0-51 ng/L Male: 0-76 ng/L Testing performed on [employer] using a homogeneous sandwich chemiluminescent immunoassay based on [employer] technology. Performed By: #### M RSAPCR, RESCVID #### [facility] [address] [place] [id number] [place] [address] 02-22-2025 Color (U) Yellow Normal [facility] Comment on above: Performed By: #### U AMIC, UA ####[address] [place], [place] [address] Glucose (U) [Mass/Vol] Negative Normal Negative [facility] Comment on above: Performed By: #### U AMIC, UA ####[address] [place], [place] [address] Ketones Ql (U) 15 mg/dL Abnormal Negative [facility] Comment on above: Performed By: #### U AMIC, UA ####[address] [place] [address] UA Appear Clear Normal Clear [facility] Comment on above: Performed By: #### U AMIC, UA ####[address] [place], [place] [address] UA Bili Moderate Abnormal Negative [facility] Comment on above: Performed By: #### U AMIC, UA ####[address] [place] [address] UA Blood Negative Normal Negative [facility] Comment on above: Performed By: #### U AMIC, UA ####[address] [place] [address] UA Leuk Est Negative Normal Negative [facility] Comment on above: Performed By: #### U AMIC, UA ####[address] [place] [address] UA Nitrite Negative Normal Negative [facility] Comment on above: Performed By: #### U AMIC, UA ####[address] [place] [address] UA pH 6.0 Normal 5.0 - 8.0 [facility] Comment on above: Performed By: #### U AMIC, UA ####[address] [place] [address] UA Protein 30 mg/dL Normal Negative [facility] Comment on above: Performed By: #### U AMIC, UA ####[address] [place] [address] UA Spec Grav 1.025 Normal 1.015-1.025 [facility] Comment on above: Performed By: #### U AMIC, UA ####[address] [place] [address] UA Specimen Type Void Normal [facility] Comment on above: Performed By: #### U AMIC, UA ####[address] [place] [address] UA Urobilinogen 2.0 E.U./dL Abnormal 0.2-1.0 [facility] Comment on above: Performed By: #### U AMIC, UA ####[id number] [place], [place] [address] UAMICon 02-22-2025 UA RBC 3-5 Abnormal 0-2 [facility] Comment on above: Performed By: #### U AMIC, UA ####[address] [place], [place] [address] UA Squam Epithelial Negative Normal 0-20 [facility] Comment on above: Performed By: #### U AMIC, UA ####[address] [place], [place] [address] UA WBC 0-2 Normal 0-5 [facility] Comment on above: Performed By: #### U AMIC, UA ####[address] [place], [place] [address] XR CHEST 1 VIEWon 02-22-2025 XR CHEST 1 VIEW ORIGINAL EXAMINATION: ONE XRAY VIEW OF THE CHEST02/22/2025 6:37 pm COMPARISON: 04/22/2024. HISTORY: ORDERING SYSTEM PROVIDED HISTORY: Reason for Exam: SOB FINDINGS: The cardiomediastinal contours are stable. Atherosclerosis of the aorta. Low lung volumes with associated bronchovascular crowding. Linear opacity at the left lung base likely represents subsegmental atelectasis. Vertical lucent line extending through the right lung with lung markings beyond it likely represents a skin fold. No focal consolidation, large pleural effusion, or visible pneumothorax. No acute osseous abnormality. Degenerative changes of the spine and shoulders. IMPRESSION: Hypoventilatory changes with no definite acute radiographic findings. ATTENDING ADDENDUM: PARTIALLY VISUALIZED UPPER ABDOMEN DEMONSTRATES GAS-FILLED POSSIBLY DILATED BOWEL. IF THERE ARE REFERABLE SYMPTOMS, CONSIDER RADIOGRAPH OR CT FOR FURTHER EVALUATION. Interpreted by: Fam Wagner Preliminary Report By: Araceli Berumen Electronically signed By Fam Wagner Dictated Date: 02/22/2025 7:08:15 PM Prelim Date: 02/22/2025 7:11:47 PM Sign Date: 02/22/2025 7:30:02 PM Ordering Provider: BRYN Smallwood [facility] L/S Spine Min 4 Viewson 03 L/S Spine Min 4 Views [facility] [address] [place], [place] [id number] L/S Spine Min 4 Views MR#: [id number] Acct: [id number] Name: NANCY SY Rep #: [id number] : [id number] M [id number] From: Izaiah Fontanez MD PCP: NOAH ResendizC Status: DEP AMB Study: L/S Spine Min 4 Views Date of Exam: 11/09/24 Exam# [id number] Ordering Dr: Brody Malhotra MD PROCEDURE: L/S SPINE MIN 4 VIEWS (RADSPLS), 11/09/2024 REASON FOR EXAM: HX OF FX, PAIN TECHNIQUE: AP, lateral, bilateral oblique, and lateral flexion/extension views of the lumbar spine were obtained. COMPARISON: None FINDINGS: Fracture/dislocation: Severe L1 anterior wedge compression deformity with roughly 60-70% loss of anterior vertebral body height. Severe anterior wedge compression deformity at T11, with roughly 80-90% loss of anterior vertebral body height, post kyphoplasty/vertebrop lasty at that level. Vertebral body heights: As above. Alignment: Trace lumbar scoliosis may be positional. Limited motion with flexion/extension noted. Disc spaces: Variable disc height loss up to moderate in the visualized lower thoracic spine.. Facets: Facet arthropathy greatest from L4-S1. Soft tissues: Atherosclerosis. Presumed pelvic phleboliths. Foreign bodies: None visible. Bone mineralization: Demineralization. Other: RIGHT upper quadrant surgical clips. RAD/L/S Spine Min 4 Views IMPRESSION: 1. Demineralization with age-indeterminate T11 greater than L1 compression deformities as described, post T11 kyphoplasty/vertebrop lasty. Correlate with history and point tenderness. Comparison with any available outside imaging would also be helpful. 2. Multiple level spondylosis and additional description as above. Reading Location: [id number] CC: STAFFING AND SCHEDULING COORDINATOR-C Katherine Brand; Dr. Brody Mlahotra MD Obstetrics Gynecology Md: Signed Normal [facility] Thoracic Spine Min 4 Viewson 11-09-2024 Thoracic Spine Min 4 Views [facility] Imaging Services [address], [place] [address] Thoracic Spine Min 4 Views MR#: [id number] Acct: [id number] Name: NANCY SY Rep #: [id number] : 1945 M 79 From: Izaiah Fontanez MD PCP: LOIS Resendiz Status: DEP AMB Study: Thoracic Spine Min 4 Views Date of Exam: 11/09 Exam# [id number] Ordering Dr: Brody Malhotra MD PROCEDURE: THORACIC SPINE MIN 4 VIEWS (RADSPT4), 11/09/2024 REASON FOR EXAM: HX OF FX, PAIN TECHNIQUE: AP, lateral, lateral flexion and extension, bilateral oblique, and swimmer's views of the thoracic spine were obtained. COMPARISON: None FINDINGS: Fracture/dislocation: Severe T11 anterior wedge compression deformity with roughly 80-90% loss of anterior vertebral body height post kyphoplasty/vertebrop lasty. L1 compression deformity better depicted on concurrent lumbar spinal radiographs, reported separately. Vertebral body heights: As above. Alignment: Exaggerated kyphosis centered at the thoracolumbar junction related to the above compression fractures. Mild scoliosis. Limited motion with flexion/extension. Disc spaces: Diffuse disc height loss is up to moderate with osteophytes, endplate sclerosis, as well as disc/osteophyte complexes. Facets: Grossly unremarkable, not well evaluated. Soft tissues: Atherosclerosis. Foreign bodies: None visible. Bone mineralization: Marked demineralization. Other: RIGHT upper quadrant surgical clips. RAD/Thoracic Spine Min 4 Views IMPRESSION: 1. Marked demineralization with severe age-indeterminate T11 and L1 anterior wedge compression deformity post T11 kyphoplasty/vertebrop lasty. Correlate with history and point tenderness. Comparison with any available outside imaging would be helpful. 2. Multilevel spondylosis at additional description as above. Reading Location: [facility] CC: STAFFING AND SCHEDULING COORDINATOR-Shahla Brand; Dr. Brody Malhotra MD Obstetrics Gynecology Md: Signed Normal [facility] Office Visit Reporton 2024 Office Visit Report [place] [address] [place] [address] OFFICE VISIT Date of Service: 10/21/24 MR#: [id number] Acct: [id number] Patient: NANCY SY Rep #: [id number] : 1945 Provider: Kathy Young Age/Sex: 79/M Location: [facility] Status: Signed Intake Vital Signs 09/23/24 15:33 10/07/24 11:34 Height 5 ft 9 in 5 ft 9 in Weight: 168 lb 6 oz BMI 24.8 BP 132/81 H Blood Pressure Location Rt brachial Position Sitting Pulse 95 Pulse Source Monitor Pulse Oximetry (%) 93 Oxygen Delivery Method room air Intake Visit Reasons: Prolia - B B Chief Complaint: POSITIVE AT HOME TEST Allergies No Known Allergies Allergy (Unverified 09/23/24 15:35) Have you fallen in the past year?: No Office Procedures Injections Procedure performed by: Norma Quezada Lot number: [id number] 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: [employer] date: 02/28/27 Dose of injection: 1 mL Site of injection: Sub-Q Medication Given: Yes Is this a patient provided medication?: No Office Meds Prolia 60 mg/mL subcutaneous syringe Performing Provider: Amber Greenwood MD Performing Location: [facility] Administered by: Norma Quezada RN on 10/21/24 15:55 Dose Route Admin Location Dispensed Lot Number Expiration Date [facility] Man ufacturer 60 mg subcut Left arm 1 mL [id number] 02/28/27 88816-361-28 [employer] Assessment and Plan Assessment and Plan (1) Osteoporosis: Status: Chronic Qualifiers: Osteoporosis type: age-related Presence of current pathological fracture: without current pathological fracture Qualified Code(s): M81.0 - Age-related osteoporosis without current pathological fracture Orders: Orders Prolia Injection 10/21/24 M81.0 - Age-related osteoporosis without current pathological fracture Clinical Quality Measures Falls Risk Screening/Assistive Devices Have you fallen in the past year?: No 10/22/24 0806 Date Amber Greenwood MD Cosigner Signature: Date (if applicable) CC: Normal [facility] TFTESTon 10-14-2024 Free Testost Direct 1.8 pg/mL Low 6.6-18.1 [facility] Comment on above: Result Comment: Perf ormed At: BN [facility] [address] [place], [place] [id number] Dominick Rae MD Ph:[phone] Performed At: [facility] [address] [id number] Ernesto Vigil PhD Ph:[phone] Performed By: #### 1 [address], VI ####[place] [address]#### PTH ####[address] [address] Testosterone Lvl 489 ng/dL Normal 264-916 [facility] Comment on above: Result Comment: Adul t male reference interval is based on a population of healthy nonobese males (BMI <30) between 19 and 39 years old. Yamilex, et.al. JCEM 2017,102;7969-2290. PMID: [id number]. Performed By: #### 1 [address], VI ####[place] [id number]#### PTH ####[address] [address] .Auto Diffon 10-08-2024 Basophil, Absolute 0.1 10 3/mcL Normal 0.0-0.2 [facility] Comment on above: Performed By: #### A SHERRELL, ADIFF, GFR, LIPID, CBC, PSA, CMP ####[place] [address] [place] [id number] Basophils/100 WBC (Bld) 0.8 % Normal 0.0-2.5 [facility] Comment on above: Performed By: #### A SHERRELL, ADIFF, GFR, LIPID, CBC, PSA, CMP ####[place] [address] [place], [place] [address] Eosinophil, Absolute 0.5 10 3/mcL Normal 0.0-0.7 [facility] Comment on above: Performed By: #### A SHERRELL, ADIFF, GFR, LIPID, CBC, PSA, CMP ####[address] [address] Eosinophils/100 WBC (Bld) 7.6 % High 0.0-7.0 [facility] Comment on above: Performed By: #### A SHERRELL, ADIFF, GFR, LIPID, CBC, PSA, CMP ####[address] [address] Lymphocyte, Absolute 1.1 10 3/mcL Normal 0.9-4.3 [facility] Comment on above: Performed By: #### A SHERRELL, ADIFF, GFR, LIPID, CBC, PSA, CMP ####[address] [address] Lymphocytes/100 WBC (Bld) 15.7 % Low 20.0-40.0 [facility] Comment on above: Performed By: #### A SHERRELL, ADIFF, GFR, LIPID, CBC, PSA, CMP ####[address] [address] Monocyte, Absolute 0.8 10 3/mcL Normal 0.1-1.4 [facility] Comment on above: Performed By: #### A SHERRELL, ADIFF, GFR, LIPID, CBC, PSA, CMP ####[address] [address] Monocytes/100 WBC (Bld) 11.4 % Normal 2.0-13.0 [facility] Comment on above: Performed By: #### A SHERRELL, ADIFF, GFR, LIPID, CBC, PSA, CMP ####[address] [address] Neutrophils/100 WBC (Bld) 64.5 % Normal 50.0-75.0 [facility] Comment on above: Performed By: #### A SHERRELL, ADIFF, GFR, LIPID, CBC, PSA, CMP ####[address] [address] .GFRon 10-08-2024 Estimated Glomerular Filtration Rate 87 ml/min/1.73sqm Normal [facility] Comment on above: Result Comment: Stages of Chronic Kidney Disease (CKD) Stage Description eGFR(ml/min/1.73 sq.m.) CKD 1 Normal kidney function or >=90 normal kindney function with possible kidney damage (ex. Proteinuria) CKD 2 Kidney damage with mild loss 60-89 of kidney function CKD 3a Mild to moderate loss of kidney 45-59 function CKD 3b Moderate to severe loss of 30-44 of kindey function CKD 4 Severe loss of kidney function 15-29 CKD 5 Kidney failure <15 Note: (go live 2024) the eGFR calculation was updated to the 2020 CKD-EPI creatinine equation without a race factor to calculate the eGFR results. Performed By: #### A SHERRELL, ADIFF, GFR, LIPID, CBC, PSA, CMP ####[place] [address] .NEUABSon 10-08-2024 Neutrophil, Absolute 4.5 10 3/mcL Normal 2.3-8.1 [facility] Comment on above: Performed By: #### A SHERRELL, ADIFF, GFR, LIPID, CBC, PSA, CMP ####[place] [id number] CBCon 10-08-2024 Erythrocyte distribution width (RBC) [Ratio] 13.7 % Normal 11.5-15.5 [facility] Comment on above: Performed By: #### A SHERRELL, ADIFF, GFR, LIPID, CBC, PSA, CMP ####[place] [id number] Hematocrit (Bld) [Volume fraction] 39.2 % Low 40.0-52.0 [facility] Comment on above: Performed By: #### A SHERRELL, ADIFF, GFR, LIPID, CBC, PSA, CMP ####[place] [id number] Hgb 13.6 G/dL Normal 13.0-17.5 [facility] Comment on above: Performed By: #### A SHERRELL, ADIFF, GFR, LIPID, CBC, PSA, CMP ####[facility] [place], [place] [address] MCH (RBC) [Entitic mass] 32.2 pg Normal 27.0-33.0 [facility] Comment on above: Performed By: #### A SHERRELL, ADIFF, GFR, LIPID, CBC, PSA, CMP ####[place] [id number] [place] [phone] MCHC 34.7 G/dL Normal 32.0-36.0 [facility] Comment on above: Performed By: #### A SHERRELL, ADIFF, GFR, LIPID, CBC, PSA, CMP ####[place] [address] [place] [phone] MCV (RBC) [Entitic vol] 92.7 fL Normal 81.0-100.0 [facility] Comment on above: Performed By: #### A SHERRELL, ADIFF, GFR, LIPID, CBC, PSA, CMP ####[place] [id number] Platelet 271 10 3/mcL Normal 150-450 [facility] Comment on above: Performed By: #### A SHERRELL, ADIFF, GFR, LIPID, CBC, PSA, CMP ####[place] [id number] Platelet mean volume (Bld) [Entitic vol] 7.2 fL Normal 6.4-10.5 [facility] Comment on above: Performed By: #### A SHERRELL, ADIFF, GFR, LIPID, CBC, PSA, CMP ####[place] [id number] RBC 4.23 10 6/mcL Low 4.50-6.00 [facility] Comment on above: Performed By: #### A SHERRELL, ADIFF, GFR, LIPID, CBC, PSA, CMP ####[place] [address] [place] [phone] WBC 7.0 10 3/mcL Normal 4.5-10.8 [facility] Comment on above: Performed By: #### A SHERRELL, ADIFF, GFR, LIPID, CBC, PSA, CMP ####[address] [address] CMPon 10-08-2024 Albumin Level 3.8 G/dL Normal 3.4-4.8 [facility] Comment on above: Performed By: #### A SHERRELL, ADIFF, GFR, LIPID, CBC, PSA, CMP ####[address] [address] Albumin/Globulin [Mass ratio] 1.3 {ratio} Normal 1.1-2.5 [facility] Comment on above: Performed By: #### A SHERRELL, ADIFF, GFR, LIPID, CBC, PSA, CMP ####[place] [id number] ALP [Catalytic activity/Vol] 124 U/L Normal 40-135 [facility] Comment on above: Performed By: #### A SHERRELL, ADIFF, GFR, LIPID, CBC, PSA, CMP ####[address] [address] ALT [Catalytic activity/Vol] 15 U/L Low 16-63 [facility] Comment on above: Performed By: #### A SHERRELL, ADIFF, GFR, LIPID, CBC, PSA, CMP ####[address] [address] AST [Catalytic activity/Vol] 15 U/L Normal 10-40 [facility] Comment on above: Performed By: #### A SHERRELL, ADIFF, GFR, LIPID, CBC, PSA, CMP ####[address] [address] Bili Total 0.4 mg/dL Normal 0.2-1.0 [facility] Comment on above: Result Comment: Use of this assay is not recommended for patients undergoing treatment with eltrombopag due to the potential for falsely elevated results. Performed By: #### A SHERRELL, ADIFF, GFR, LIPID, CBC, PSA, CMP ####[place] [address] [place], [place] [address] BUN/Creatinine Ratio 24 ratio Normal 7-27 [facility] Comment on above: Performed By: #### A SHERRELL, ADIFF, GFR, LIPID, CBC, PSA, CMP ####[address] [address] Calcium [Mass/Vol] 9.2 mg/dL Normal 8.4-10.2 [facility] Comment on above: Performed By: #### A SHERRELL, ADIFF, GFR, LIPID, CBC, PSA, CMP ####[address] [address] Chloride [Moles/Vol] 106 mmol/L Normal 98-107 [facility] Comment on above: Performed By: #### A SHERRELL, ADIFF, GFR, LIPID, CBC, PSA, CMP ####[place] [address] [place], [place] [address] CO2 [Moles/Vol] 32 mmol/L High 23-31 [facility] Comment on above: Performed By: #### A SHERRELL, ADIFF, GFR, LIPID, CBC, PSA, CMP ####[address] [address] Creatinine [Mass/Vol] 0.90 mg/dL Normal 0.70-1.30 [facility] Comment on above: Result Comment: Test ing performed on Siemens Dimension EXL analyzer using a modified kinetic Mars technique. Performed By: #### A SHERRELL, ADIFF, GFR, LIPID, CBC, PSA, CMP ####[address] [address] Electrolyte Balance 5.0 mEq/L Normal 4.0-15.0 [facility] Comment on above: Performed By: #### A SHERRELL, ADIFF, GFR, LIPID, CBC, PSA, CMP ####[address] [address] Globulin 3.0 G/dL Normal 1.5-3.8 [facility] Comment on above: Performed By: #### A SHERRELL, ADIFF, GFR, LIPID, CBC, PSA, CMP ####[address] [address] Glucose [Mass/Vol] 108 mg/dL Normal 83-110 [facility] Comment on above: Performed By: #### A SHERRELL, ADIFF, GFR, LIPID, CBC, PSA, CMP ####[place] [address] [place], [place] [address] Potassium [Moles/Vol] 3.9 mmol/L Normal 3.5-5.1 [facility] Comment on above: Performed By: #### A SHERRELL, ADIFF, GFR, LIPID, CBC, PSA, CMP ####[place] [address] [place], [place] [address] Sodium [Moles/Vol] 143 mmol/L Normal 136-145 [facility] Comment on above: Performed By: #### A SHERRELL, ADIFF, GFR, LIPID, CBC, PSA, CMP ####[place] [address] [place], [place] [address] Total Protein 6.8 G/dL Normal 6.4-8.2 [facility] Comment on above: Performed By: #### A SHERRELL, ADIFF, GFR, LIPID, CBC, PSA, CMP ####[place] [address] [address] Urea nitrogen [Mass/Vol] 22 mg/dL High 7-18 [facility] Comment on above: Performed By: #### A SHERRELL, ADIFF, GFR, LIPID, CBC, PSA, CMP ####[place] [address] [place], [place] [address] LABORATORYOrdered By: SYSTEM SYSTEM on 10-08-2024 25-hydroxyvitamin D3 [Mass/Vol] 68.5 ng/mL Invalid Interpretation Code AO ADM SS Comment on above: Interpretive Data: I nterpretive Values Based on Total 25(OH) Vitamin D: Deficient <20 ng/mL Insufficient 20 - <30 ng/mL Sufficient 30-100 ng/mL Parathyrin.intact [Mass/Vol] 45.9 pg/mL Normal 18.5 - 88.0 pg/mL AH ADM SS Albumin BCP dye [Mass/Vol] 3.8 G/dL Normal 3.4 - 4.8 G/dL AO ADM SS Albumin/Globulin [Mass ratio] 1.3 {ratio} Normal 1.1 - 2.5 ratio AO ADM SS ALP [Catalytic activity/Vol] 124 U/L Normal 40 - 135 U/L AO ADM SS ALT With P-5'-P [Catalytic activity/Vol] 15 U/L Low 16 - 63 U/L AO ADM SS AST With P-5'-P [Catalytic activity/Vol] 15 U/L Normal 10 - 40 U/L AO ADM SS Basophils (Bld) [#/Vol] 0.1 103/mcL Normal 0.0 - 0.2 10^3/mcL AO Workflow SS Basophils/100 WBC (Bld) 0.8 % Normal 0.0 - 2.5 % AO Workflow SS Bilirubin [Mass/Vol] 0.4 mg/dL Normal 0.2 - 1 .0 mg/dL AO ADM SS Comment on above: Interpretive Data: U se of this assay is not recommended for patients undergoing treatment with eltrombopag due to the potential for falsely elevated results. Calcium [Mass/Vol] 9.2 mg/dL Normal 8.4 - 10. 2 mg/dL AO ADM SS Chloride [Moles/Vol] 106 mmol/L Normal 98 - 10 7 mmol/L AO ADM SS CO2 [Moles/Vol] 32 mmol/L High 23 - 31 mmol/L AO ADM SS Creatinine [Mass/Vol] 0.90 mg/dL Normal 0.70 - 1.30 mg/dL AO ADM SS Comment on above: Interpretive Data: T esting performed on Siemens Dimension EXL analyzer using a modified kinetic Mars technique. Electrolyte Balance 5.0 mEq/L Normal 4.0 - 15 .0 mEq/L AO ADM SS Eosinophil, Absolute 0.5 103/mcL Normal 0.0 - 0 .7 10^3/mcL AO Workflow SS Eosinophils/100 WBC (Bld) 7.6 % High 0.0 - 7.0 % AO Workflow SS Erythrocyte distribution width (RBC) [Ratio] 13.7 % Normal 11.5 - 15.5 % AO Workflow SS Estimated Glomerular Filtration Rate 87 ml/min/1.73sqm Invalid Interpretation Code AO Chemistry S Comment on above: Interpretive Data: Stages of Chronic Kidney Disease (CKD) Stage Description eGFR(ml/min/1.73 sq.m.) CKD 1 Normal kidney function or >=90 normal kindney function with possible kidney damage (ex. Proteinuria) CKD 2 Kidney damage with mild loss 60-89 of kidney function CKD 3a Mild to moderate loss of kidney 45-59 function CKD 3b Moderate to severe loss of 30-44 of kindey function CKD 4 Severe loss of kidney function 15-29 CKD 5 Kidney failure <15 Note: (go live 2024) the eGFR calculation was updated to the 2020 CKD-EPI creatinine equation without a race factor to calculate the eGFR results. Globulin 3.0 G/dL Normal 1.5 - 3.8 G/dL AO ADM SS Glucose [Mass/Vol] 108 mg/dL Normal 83 - 110 mg/dL AO ADM SS Hematocrit (Bld) [Volume fraction] 39.2 % Low 40.0 - 52.0 % AO Workflow SS Hemoglobin (Bld) [Mass/Vol] 13.6 G/dL Normal 13.0 - 17.5 G/dL AO Workflow SS Lymphocytes (Bld) [#/Vol] 1.1 103/mcL Normal 0.9 - 4.3 10^3/mcL AO Workflow SS Lymphocytes/100 WBC (Bld) 15.7 % Low 20.0 - 40.0 % AO Workflow SS MCH (RBC) [Entitic mass] 32.2 pg Normal 27.0 - 33.0 pg AO Workflow SS MCHC 34.7 G/dL Normal 32.0 - 36.0 G/dL AO Workflow SS MCV (RBC) [Entitic vol] 92.7 fL Normal 81.0 - 100.0 fL AO Workflow SS Monocytes (Bld) [#/Vol] 0.8 103/mcL Normal 0.1 - 1.4 10^3/mcL AO Workflow SS Monocytes/100 WBC (Bld) 11.4 % Normal 2.0 - 13.0 % AO Workflow SS Neutrophils (Bld) [#/Vol] 4.5 103/mcL Normal 2.3 - 8.1 10^3/mcL AO Workflow SS Neutrophils/100 WBC (Bld) 64.5 % Normal 50.0 - 75.0 % AO Workflow SS Platelet mean volume (Bld) [Entitic vol] 7.2 fL Normal 6.4 - 10.5 fL AO Workflow SS Platelets (Bld) [#/Vol] 271 103/mcL Normal 150 - 450 10^3/mcL AO Workflow SS Potassium [Moles/Vol] 3.9 mmol/L Normal 3.5 - 5.1 mmol/L AO ADM SS Prostate specific Ag [Mass/Vol] 0.90 ng/mL Normal 0.00 - 4.00 ng/mL AO ADM SS Protein [Mass/Vol] 6.8 G/dL Normal 6.4 - 8.2 G/dL AO ADM SS RBC (Bld) [#/Vol] 4.23 106/mcL Low 4.50 - 6.0 0 10^6/mcL AO Workflow SS Sodium [Moles/Vol] 143 mmol/L Normal 136 - 145 mmol/L AO ADM SS Urea nitrogen [Mass/Vol] 22 mg/dL High 7 - 18 mg/dL AO ADM SS Urea nitrogen/Creatinine [Mass ratio] 24 ratio Normal 7 - 27 ratio AO ADM SS WBC (Bld) [#/Vol] 7.0 103/mcL Normal 4.5 - 10.8 10^3/mcL AO Workflow SS LABORATORYOrdered By: Tan Ramos on 10-08-2024 Cholesterol [Mass/Vol] 153 mg/dL Normal 0 - 200 mg/dL AO ADM SS Comment on above: Interpretive Data: C holesterol Reference Interval: Less than 200 Desirable 200-239 Borderline high risk 240 and above High risk Cholesterol in HDL [Mass/Vol] 46 mg/dL Normal 40 - 60 mg/dL AO ADM SS Cholesterol in LDL [Mass/Vol] 99 mg/dL Normal 0 - 130 mg/dL AO ADM SS Triglyceride [Mass/Vol] 42 mg/dL Normal 0 - 150 mg/dL AO ADM SS Comment on above: Interpretive Data: T riglyceride Reference Interval: Less than 150 Normal 150-199 Borderline high risk 200-499 High risk 500 or higher Very high risk LIPIDon 10-08-2024 Cholesterol [Mass/Vol] 153 mg/dL Normal 0-200 [facility] Comment on above: Result Comment: Chol esterol Reference Interval: Less than 200 Desirable 200-239 Borderline high risk 240 and above High risk Performed By: #### A SHERRELL, ADIFF, GFR, LIPID, CBC, PSA, CMP ####[place] [address] [place], [place] [address] Cholesterol in HDL [Mass/Vol] 46 mg/dL Normal 40-60 [facility] Comment on above: Performed By: #### A SHERRELL, ADIFF, GFR, LIPID, CBC, PSA, CMP ####[place] [address] [place], [place] [address] Cholesterol in LDL [Mass/Vol] 99 mg/dL Normal 0-130 [facility] Comment on above: Performed By: #### A SHERRELL, ADIFF, GFR, LIPID, CBC, PSA, CMP ####[address] [place], [place] [address] Triglyceride [Mass/Vol] 42 mg/dL Normal 0-150 [facility] Comment on above: Result Comment: Trig lyceride Reference Interval: Less than 150 Normal 150-199 Borderline high risk 200-499 High risk 500 or higher Very high risk Performed By: #### A SHERRELL, ADIFF, GFR, LIPID, CBC, PSA, CMP ####[place] [address] [place], [place] [address] PSAon 10-08-2024 Prostate Specific Antigen 0.90 ng/mL Normal 0.00-4.00 [facility] Comment on above: Performed By: #### A SHERRELL, ADIFF, GFR, LIPID, CBC, PSA, CMP ####[place] [address] [place] [id number] PTHon 10-08-2024 PTH, Intact 45.9 pg/mL Normal 18.5-88.0 [facility] Comment on above: Performed By: #### 1 [address], [facility] ####[place] [address] [place] [address]#### PTH ####[place] [address] VIDHon 10-08-2024 Vit. D 25-Hydroxy 68.5 ng/mL Normal [facility] Comment on above: Result Comment: Inte rpretive Values Based on Total 25(OH) Vitamin D: Deficient <20 ng/mL Insufficient 20 - <30 ng/mL Sufficient 30-100 ng/mL Performed By: #### 1 [address], VIDH ####[place] [address] [place] [address]#### PTH ####[place] [address] Endocrinology Visit Reporton 09-23-2024 Endocrinology Visit Report [facility] [address] [place] [address]. [address] [place] [address] OFFICE VISIT Date of Service: 09/23/24 MR#: [id number] Acct: [id number] Name: NANCY SY Rep #: [id number] : 1945 Provider: Kathy Young Age/Sex: 79/M Location: [facility] Status: Signed Intake Vital Signs 07/09/23 14:26 09/23/24 15:33 Height 5 ft 9 in 5 ft 9 in Weight: 168 lb 6 oz BMI 24.8 BP 132/81 H Blood Pressure Location Rt brachial Position Sitting Pulse 95 Pulse Source Monitor Pulse Oximetry (%) 93 Oxygen Delivery Method room air Intake Visit Reasons: Osteoporosis Chief Complaint: POSITIVE AT HOME TEST Is patient in pain?: No Allergies No Known Allergies Allergy (Unverified 09/23/24 15:35) Medications ???Medication ???Instructions ???Recorded ???Confirmed ???Type carvedilol 3.125 mg tablet 3.125 mg PO BID 07/09/23 07/26/24 History dexamethasone 6 mg tablet 6 mg PO DAILY #5 tabs 07/09/23 07/09/23 Rx amlodipine 10 mg tablet 10 mg PO QDAY 07/26/24 07/26/24 History buspirone 15 mg tablet 15 mg PO BID 07/26/24 07/26/24 History calcium carbonate 1,000 mg PO QDAY 07/26/24 07/26/24 History cyanocobalamin (vitamin B-12) 1,000 mcg PO QDAY 07/26/24 07/26/24 History 1,000 mcg capsule losartan 25 mg tablet 100 mg PO DAILY 07/26/24 07/26/24 History melatonin 5 mg capsule mg PO 07/26/24 07/26/24 History paroxetine HCl 40 mg tablet 40 mg PO QDAY 07/26/24 07/26/24 History tamsulosin 0.4 mg capsule (Flomax) 0.4 mg PO QDAY 07/26/24 07/26/24 History alendronate 10 mg tablet 10 mg PO QAM 09/23/24 09/23/24 History cholecalciferol (vitamin D3) 1,250 1,250 mcg PO QWEEK 09/23/24 09/23/24 History mcg (50,000 unit) capsule Have you fallen in the past year?: Yes PFSH Medical History Pancreatitis Osteoporosis Osteopenia Kidney stones Gallstones Bone fracture Back problem Arthritis Allergies Hemorrhoids Hypertension Surgical History Hx of cholecystectomy Family History Father Alcoholism Brother Depression Suicide attempt Grandmother Parkinson disease Sister Osteoporosis Social History (Updated 09/23/24 @ 16:[address] Amber Greenwood MD) household members: spouse HPI JONA SY, is a 79 M who presents to the office today for evaluation and management of osteoporosis. In August, he had a fall and suffered a vertebral fracture. In April, he was lifting a case of water and felt something pop and was noted to have a vertebral fracture. Labs showed vitamin D level of 13.5 and calcium of 8.9 He was started on vitamin D 50,000 IU weekly. He states his labs improved, but I don't have a copy. He was started on Alendronate on August 07, after 3 months of being on vitamin D. He is having some heartburn. T-score left forearm -2.8 Current Symptoms: presents with heartburn, frequent falls, muscle weakness and unsteady gait/balance Risk Factors: has history of tobacco use, has history of prior fracture, has history of age is greater than 65 and has history of fall risk Pertinent treatment/medication history: biphosphonates Osteoporosis/Bone Results: No Data to Display ROS Const Constitutional: Positive for fatigue and frequent falls; No weight change ENT ENT: No dizziness/vertigo Cardio Cardiology: No chest pain at rest, chest pain with exertion, shortness of breath or palpitations Musc Musculoskeletal: Positive for muscle weakness Neuro Neurology: Positive for unsteady gait/balance and frequent falls Gastro GI: Positive for heartburn Skin Skin: No wounds Endo Endocrine: Positive for fatigue; No weight change Exam Const General: cooperative, healthy appearing, comfortable, no acute distress, well developed and not cushingoid Nutritional Appearance: well nourished Orientation: alert, awake and oriented x3 HENMT Head: normal to inspection Ears: hearing grossly normal bilaterally Nose: external nose normal Mouth: oral mucosae normal Eyes General: appearance normal, both eyes and all related structures Alignment and Position: alignment normal Periorbital: periorbital findings normal Eyelids: eyelids normal Conjunctivae: conjunctivae normal Neck Neck: normal visual inspection Neck mass: No Thyroid: thyroid normal Lymphatic: no lymphadenopathy noted Chest Chest palpation inspection: normal inspection of the chest Resp Effort Inspection: normal respiratory effort, able to speak in complete sentences, symmetric chest movement, no audible wheezes and no cough Auscultation: Bilateral: Clear to Auscultation Cardio Rate: regular rate Rhythm (more content not included)... Normal [facility] CT HEAD OR BRAIN W/O CONTRAS Ton 08-18-2024 CT HEAD OR BRAIN W/O CONTRAST ORIGINAL EXAMINATION: CT OF THE HEAD WITHOUT CONTRAST 08/18/2024 3:07 pm TECHNIQUE: CT of the head was performed without the administration of intravenous contrast. Automated exposure control, iterative reconstruction, and/or weight based adjustment of the mA/kV was utilized to reduce the radiation dose to as low as reasonably achievable. COMPARISON: None. HISTORY: ORDERING SYSTEM PROVIDED HISTORY: Reason for Exam: pain FINDINGS: BRAIN/VENTRICLES: There is no acute intracranial hemorrhage, mass effect or midline shift. No abnormal extra-axial fluid collection. The garcia-white differentiation is maintained without evidence of an acute infarct. Mild generalized volume loss is appreciated with associated prominence of the sulci and ventricles. There is no evidence of hydrocephalus. ORBITS: The visualized portion of the orbits demonstrate no acute abnormality. SINUSES: The visualized paranasal sinuses and mastoid air cells demonstrate no acute abnormality. SOFT TISSUES/SKULL: No acute abnormality of the visualized skull. Small left frontal soft tissue injury.. IMPRESSION: No acute intracranial abnormality. Suspect small left frontal soft tissue injury. Interpreted by: Ephraim Quinones Preliminary Report By: Ephraim Quinones Electronically signed By Ephraim Quinones Dictated Date: 08/18/2024 3:09:42 PM Prelim Date: 08/18/2024 3:16:57 PM Sign Date: 08/18/2024 3:16:57 PM Ordering Provider: SIERRA Smallwood [facility] XR ELBOW MINIMUM 3 VIEWS [facility] 08-18-2024 XR ELBOW MINIMUM 3 VIEWS LEFT ORIGINAL EXAMINATION: THREE XRAY VIEWS OF THE LEFT ELBOW 08/18/2024 3:06 pm COMPARISON: None. HISTORY: ORDERING SYSTEM PROVIDED HISTORY: Reason for Exam: fall FINDINGS: No acute fracture or dislocation is seen. There is mild soft tissue edema in around the elbow. Joint spaces appear maintained. No aggressive osseous lesion is seen. No large joint effusion. IMPRESSION: No acute fracture or dislocation is seen. Mild soft tissue swelling is noted. I have personally reviewed the images of this examination and agree with the resident's findings and interpretation. Interpreted by: Vasu Hathaway Preliminary Report By: Kanu North Electronically signed By Vasu Hathaway Dictated Date: 08/18/2024 3:16:46 PM Prelim Date: 08/18/2024 3:28:37 PM Sign Date: 08/18/2024 3:28:37 PM Ordering Provider: SIERRA BLACK [facility] XR RIBS 2 VIEWS LEFT/PA CHES T(AO)on 08-18-2024 XR RIBS 2 VIEWS LEFT/PA CHEST(AO) ORIGINAL EXAMINATION: 2 XRAY VIEWS OF LEFT RIBS WITH 1 XRAY VIEWS OF THE CHEST 08/18/2024 3:08 pm COMPARISON: Chest x-ray April 22, 2024. HISTORY: ORDERING SYSTEM PROVIDED HISTORY: Reason for Exam: fall FINDINGS: The cardiomediastinal silhouette is within normal limits. There is no pleural effusion, focal consolidation, or pneumothorax. There is no central vascular congestion. No displaced rib fractures are seen. No acute osseous abnormality. Augmentation cement is noted within the T12 vertebral body. IMPRESSION: No evidence of displaced rib fracture. No acute cardiopulmonary process I have personally reviewed the images of this examination and agree with the resident's findings and interpretation. Interpreted by: Vasu Hathaway Preliminary Report By: Kanu North Electronically signed By Vasu Hathaway Dictated Date: 08/18/2024 3:20:05 PM Prelim Date: 08/18/2024 3:31:12 PM Sign Date: 08/18/2024 3:31:12 PM Ordering Provider: SIERRA BLACK [facility] No Panel Informationon 08-05 Culture Urine 10,000 - 50,000 cfu/ml Mixed growth consistent with normal urogenital yobany. [facility] LABORATORYOrdered By: SYSTEM SYSTEM on 08-03-2024 25-hydroxyvitamin D3 [Mass/Vol] 44.2 ng/mL Invalid Interpretation Code AO ADM SS Comment on above: Interpretive Data: I nterpretive Values Based on Total 25(OH) Vitamin D: Deficient <20 ng/mL Insufficient 20 - <30 ng/mL Sufficient 30-100 ng/mL Ceferino 08-03-2024 Vit. D 25-Hydroxy 44.2 ng/mL Normal [facility] Comment on above: Result Comment: Inte rpretive Values Based on Total 25(OH) Vitamin D: Deficient <20 ng/mL Insufficient 20 - <30 ng/mL Sufficient 30-100 ng/mL Performed By: #### V [facility] #### [id number] [place], [place] [address] BD BONE DENSITY DEXA AXIAL S Formerly [facility] 06-11-2024 BD BONE DENSITY DEXA AXIAL SKELETON ORIGINAL EXAMINATION: BONE DENSITOMETRY 06/11/2024 2:22 pm TECHNIQUE: A bone density dual x-ray absorptiometry (DEXA) scan was performed of the axial (e.g. hips, spine) and/or appendicular (e.g. radius) skeleton as appropriate. COMPARISON: None. HISTORY: ORDERING SYSTEM PROVIDED HISTORY: Reason for Exam: Osteoporosis Screening screening multiple spine fx and kyphoplasty FINDINGS: T Score Left Femoral Neck: -1.9 Left Femoral Neck: 0.678 (g/cm2) T Score Left Hip: -2.0 Left Hip: 0.738 (g/cm2) T Score Left Forearm: -2.8 Left Forearm: 0.666 (g/cm2) IMPRESSION: Osteoporosis by WHO criteria. World Health Organization criteria: (Comparing with young normal sex matched population) - Normal: T-score at or above -1 SD (standard deviation) - Osteopenia: T-score between -1 and -2.5 SD - Osteoporosis: T-score at or below -2.5 SD The NOF recommends that FDA-approved medical therapies be considered in post-menopausal women and men age >/= 50 years with a: * Hip or vertebral fracture, or * T-score of /= 20% for major osteoporotic fractures or * >/= 3% for hip fractures All treatment decisions require clinical judgement and consideration of individual patient factors, including patient preferences, comorbidities, previous drug use, risk factors not captured in the FRAX registered model (e.g., frailty, falls, vitamin D deficiency, increased bone turnover, interval significant decline in bone density) and possible under- or over-estimation of fracture risk by FRAX. Interpreted by: Jeremiah Jha DO Preliminary Report By: Jeremiah Jha DO Electronically signed By Jeremiah Jha DO Dictated Date: 06/11/2024 3:00:53 PM Prelim Date: 06/11/2024 3:10:47 PM Sign Date: 06/11/2024 3:10:47 PM Ordering Provider: KATHERINE BRAND [facility] .Auto Diffon 06-03-2024 Basophil, Absolute 0.1 10 3/mcL Normal 0.0-0.2 [facility] Comment on above: Performed By: #### A SHERRELL, ADIFF, GFR, CBC, CMP, VIDH ####[place] [address]#### B12 ####[address] [address] Basophils/100 WBC (Bld) 0.5 % Normal 0.0-2.5 [facility] Comment on above: Performed By: #### A SHERRELL, ADIFF, GFR, CBC, CMP, VIDH ####[place] [address]#### B12 ####[address] [address] Eosinophil, Absolute 0.2 10 3/mcL Normal 0.0-0.7 [facility] Comment on above: Performed By: #### A SHERRELL, ADIFF, GFR, CBC, CMP, VIDH ####[place] [address]#### B12 ####[address] [address] Eosinophils/100 WBC (Bld) 2.4 % Normal 0.0-7.0 [facility] Comment on above: Performed By: #### A SHERRELL, ADIFF, GFR, CBC, CMP, VIDH ####[place] [address]#### B12 ####[address] [address] Lymphocyte, Absolute 0.9 10 3/mcL Normal 0.9-4.3 [facility] Comment on above: Performed By: #### A SHERRELL, ADIFF, GFR, CBC, CMP, VIDH ####[place] [address]#### B12 ####[address] [address] Lymphocytes/100 WBC (Bld) 8.6 % Low 20.0-40.0 [facility] Comment on above: Performed By: #### A SHERRELL, ADIFF, GFR, CBC, CMP, VIDH ####[place] [address]#### B12 ####[address] [address] Monocyte, Absolute 0.9 10 3/mcL Normal 0.1-1.4 [facility] Comment on above: Performed By: #### A SHERRELL, ADIFF, GFR, CBC, CMP, VIDH ####[place] [address]#### B12 ####[address] [address] Monocytes/100 WBC (Bld) 8.7 % Normal 2.0-13.0 [facility] Comment on above: Performed By: #### A SHERRELL, ADIFF, GFR, CBC, CMP, VIDH ####[place] [address]#### B12 ####[address] [address] Neutrophils/100 WBC (Bld) 79.8 % High 50.0-75.0 [facility] Comment on above: Performed By: #### A SHERRELL, ADIFF, GFR, CBC, CMP, VIDH ####[place] [address]#### B12 ####[address] [address] .GFRon 06-03-2024 GFR Non- 95 ml/min/1.73sqm Normal [facility] Comment on above: Result Comment: GFR Population mean for , Non- Americans Ages 20-29 = 116 mL/min/1.73 sq.m. Ages 30-39 = 107 mL/min/1.73 sq.m. Ages 40-49 = 99 mL/min/1.73 sq.m. Ages 50-59 = 93 mL/min/1.73 sq.m. Ages 60-69 = 85 mL/min/1.73 sq.m. Ages 70+ = 75 mL/min/1.73 sq.m. Chronic Kidney Disease: Less than 60 mL/min/1.73 square meters End Stage Renal Disease: Less than 15 mL/min/1.73 square meters Performed By: #### A SHERRELL, ADIFF, GFR, CBC, CMP, VIDH ####[place] [address]#### B12 ####[place] [address] GFR 115 ml/min/1.73sqm [facility] Comment on above: Result Comment: GFR Population mean for , Non- Americans Ages 20-29 = 116 mL/min/1.73 sq.m. Ages 30-39 = 107 mL/min/1.73 sq.m. Ages 40-49 = 99 mL/min/1.73 sq.m. Ages 50-59 = 93 mL/min/1.73 sq.m. Ages 60-69 = 85 mL/min/1.73 sq.m. Ages 70+ = 75 mL/min/1.73 sq.m. Chronic Kidney Disease: Less than 60 mL/min/1.73 square meters End Stage Renal Disease: Less than 15 mL/min/1.73 square meters Performed By: #### A SHERRELL, ADIFF, GFR, CBC, CMP, VIDH ####[place] [address]#### B12 ####[place] [address] .NEUABSon 06-03-2024 Neutrophil, Absolute 8.4 10 3/mcL High 2.3-8.1 [facility] Comment on above: Performed By: #### A SHERRELL, ADIFF, GFR, CBC, CMP, VIDH ####[place] [address]#### B12 ####[address] [address] B12on 06-03-2024 Cobalamin (Vitamin B12) [Mass/Vol] 633 pg/mL Normal 211-911 [facility] Comment on above: Performed By: #### A SHERRELL, ADIFF, GFR, CBC, CMP, VIDH ####[place] [address]#### B12 ####[place] [address] CBCon 06-03-2024 Erythrocyte distribution width (RBC) [Ratio] 13.9 % Normal 11.5-15.5 [facility] Comment on above: Performed By: #### A SHERRELL, ADIFF, GFR, CBC, CMP, VIDH ####[place] [address]#### B12 ####[place] [address] Hematocrit (Bld) [Volume fraction] 39.9 % Low 40.0-52.0 [facility] Comment on above: Performed By: #### A SHERRELL, ADIFF, GFR, CBC, CMP, VIDH ####[place] [address]#### B12 ####[place] [address] Hgb 13.8 G/dL Normal 13.0-17.5 [facility] Comment on above: Performed By: #### A SHERRELL, ADIFF, GFR, CBC, CMP, VIDH ####[place] [address]#### B12 ####[place] [address] MCH (RBC) [Entitic mass] 32.3 pg Normal 27.0-33.0 [facility] Comment on above: Performed By: #### A SHERRELL, ADIFF, GFR, CBC, CMP, VIDH ####[place] [address]#### B12 ####[place] [address] MCHC 34.5 G/dL Normal 32.0-36.0 [facility] Comment on above: Performed By: #### A SHERRELL, ADIFF, GFR, CBC, CMP, VIDH ####[place] [address]#### B12 ####[place] [address] MCV (RBC) [Entitic vol] 93.6 fL Normal 81.0-100.0 [facility] Comment on above: Performed By: #### A SHERRELL, ADIFF, GFR, CBC, CMP, VIDH ####[place] [address]#### B12 ####[place] [address] Platelet 260 10 3/mcL Normal 150-450 [facility] Comment on above: Performed By: #### A SHERRELL, ADIFF, GFR, CBC, CMP, VIDH ####[place] [address]#### B12 ####[place] [address] Platelet mean volume (Bld) [Entitic vol] 7.4 fL Normal 6.4-10.5 [facility] Comment on above: Performed By: #### A SHERRELL, ADIFF, GFR, CBC, CMP, VIDH ####[place] [address]#### B12 ####[place] [address] RBC 4.27 10 6/mcL Low 4.50-6.00 [facility] Comment on above: Performed By: #### A SHERRELL, ADIFF, GFR, CBC, CMP, VIDH ####[place] [address]#### B12 ####[place] [address] WBC 10.5 10 3/mcL Normal 4.5-10.8 [facility] Comment on above: Performed By: #### A SHERRELL, ADIFF, GFR, CBC, CMP, VIDH ####[place] [address]#### B12 ####[place] [address] CMPon 06-03-2024 Albumin Level 3.8 G/dL Normal 3.4-4.8 [facility] Comment on above: Performed By: #### A SHERRELL, ADIFF, GFR, CBC, CMP, VIDH ####[place] [address]#### B12 ####[place] [address] Albumin/Globulin [Mass ratio] 1.5 {ratio} Normal 1.1-2.5 [facility] Comment on above: Performed By: #### A SHERRELL, ADIFF, GFR, CBC, CMP, VIDH ####[place] [address]#### B12 ####[place] [address] ALP [Catalytic activity/Vol] 148 U/L High 40-135 [facility] Comment on above: Performed By: #### A SHERRELL, ADIFF, GFR, CBC, CMP, VIDH ####[place] [address]#### B12 ####[place] [address] ALT [Catalytic activity/Vol] 23 U/L Normal 16-63 [facility] Comment on above: Performed By: #### A SHERRELL, ADIFF, GFR, CBC, CMP, VIDH ####[place] [address]#### B12 ####[place] [address] AST [Catalytic activity/Vol] 15 U/L Normal 10-40 [facility] Comment on above: Performed By: #### A SHERRELL, ADIFF, GFR, CBC, CMP, VIDH ####[place] [address]#### B12 ####[place] [address] Bili Total 0.4 mg/dL Normal 0.2-1.0 [facility] Comment on above: Result Comment: Use of this assay is not recommended for patients undergoing treatment with eltrombopag due to the potential for falsely elevated results. Performed By: #### A SHERRELL, ADIFF, GFR, CBC, CMP, VIDH ####[place] [address]#### B12 ####[place] [address] BUN/Creatinine Ratio 18 ratio Normal 7-27 [facility] Comment on above: Performed By: #### A SHERRELL, ADIFF, GFR, CBC, CMP, VIDH ####[place] [address]#### B12 ####[place] [address] Calcium [Mass/Vol] 8.9 mg/dL Normal 8.4-10.2 [facility] Comment on above: Performed By: #### A SHERRELL, ADIFF, GFR, CBC, CMP, VIDH ####[place] [address]#### B12 ####[place] [address] Chloride [Moles/Vol] 104 mmol/L Normal 98-107 [facility] Comment on above: Performed By: #### A SHERRELL, ADIFF, GFR, CBC, CMP, VIDH ####[place] [address]#### B12 ####[place] [address] CO2 [Moles/Vol] 30 mmol/L Normal 23-31 [facility] Comment on above: Performed By: #### A SHERRELL, ADIFF, GFR, CBC, CMP, VIDH ####[place] [address]#### B12 ####[address] [address] Creatinine [Mass/Vol] 0.79 mg/dL Normal 0.70-1.30 [facility] Comment on above: Result Comment: Test ing performed on Siemens Dimension EXL analyzer using a modified kinetic Mars technique. Performed By: #### A SHERRELL, ADIFF, GFR, CBC, CMP, VIDH ####[place] [address]#### B12 ####[place] [address] Electrolyte Balance 9.0 mEq/L Normal 4.0-15.0 [facility] Comment on above: Performed By: #### A SHERRELL, ADIFF, GFR, CBC, CMP, VIDH ####[place] [address]#### B12 ####[place] [address] Globulin 2.5 G/dL Normal [facility] Comment on above: Performed By: #### A SHERRELL, ADIFF, GFR, CBC, CMP, VIDH ####[place] [address]#### B12 ####[place] [address] Glucose [Mass/Vol] 106 mg/dL Normal 83-110 [facility] Comment on above: Performed By: #### A SHERRELL, ADIFF, GFR, CBC, CMP, VIDH ####[place] [address]#### B12 ####[place] [address] Potassium [Moles/Vol] 3.5 mmol/L Normal 3.5-5.1 [facility] Comment on above: Performed By: #### A SHERRELL, ADIFF, GFR, CBC, CMP, VIDH ####[place] [address]#### B12 ####[place] [address] Sodium [Moles/Vol] 143 mmol/L Normal 136-145 [facility] Comment on above: Performed By: #### A SHERRELL, ADIFF, GFR, CBC, CMP, VIDH ####[place] [address]#### B12 ####[place] [address] Total Protein 6.3 G/dL Low 6.4-8.2 [facility] Comment on above: Performed By: #### A SHERRELL, ADIFF, GFR, CBC, CMP, VIDH ####[place] [address]#### B12 ####[place] [address] Urea nitrogen [Mass/Vol] 14 mg/dL Normal 7-18 [facility] Comment on above: Performed By: #### A SHERRELL, ADIFF, GFR, CBC, CMP, VIDH ####[place] [address]#### B12 ####[place] [address] LABORATORYOrdered By: SYSTEM SYSTEM on 06-03-2024 25-hydroxyvitamin D3 [Mass/Vol] 13.5 ng/mL Invalid Interpretation Code AO ADM SS Comment on above: Interpretive Data: I nterpretive Values Based on Total 25(OH) Vitamin D: Deficient <20 ng/mL Insufficient 20 - <30 ng/mL Sufficient 30-100 ng/mL Albumin BCP dye [Mass/Vol] 3.8 G/dL Normal 3.4 - 4.8 G/dL AO ADM SS Albumin/Globulin [Mass ratio] 1.5 {ratio} Normal 1.1 - 2.5 ratio AO ADM SS ALP [Catalytic activity/Vol] 148 U/L High 40 - 135 U/L AO ADM SS ALT With P-5'-P [Catalytic activity/Vol] 23 U/L Normal 16 - 63 U/L AO ADM SS AST With P-5'-P [Catalytic activity/Vol] 15 U/L Normal 10 - 40 U/L AO ADM SS Basophils (Bld) [#/Vol] 0.1 103/mcL Normal 0.0 - 0.2 10^3/mcL AO Workflow SS Basophils/100 WBC (Bld) 0.5 % Normal 0.0 - 2.5 % AO Workflow SS Bilirubin [Mass/Vol] 0.4 mg/dL Normal 0.2 - 1 .0 mg/dL AO ADM SS Comment on above: Interpretive Data: U se of this assay is not recommended for patients undergoing treatment with eltrombopag due to the potential for falsely elevated results. Calcium [Mass/Vol] 8.9 mg/dL Normal 8.4 - 10. 2 mg/dL AO ADM SS Chloride [Moles/Vol] 104 mmol/L Normal 98 - 10 7 mmol/L AO ADM SS CO2 [Moles/Vol] 30 mmol/L Normal 23 - 31 mmol/L AO ADM SS Cobalamin (Vitamin B12) [Mass/Vol] 633 pg/mL Normal 211 - 911 pg/mL AH ADM SS Creatinine [Mass/Vol] 0.79 mg/dL Normal 0.70 - 1.30 mg/dL AO ADM SS Comment on above: Interpretive Data: T esting performed on Siemens Dimension EXL analyzer using a modified kinetic Mars technique. Electrolyte Balance 9.0 mEq/L Normal 4.0 - 15 .0 mEq/L AO ADM SS Eosinophil, Absolute 0.2 103/mcL Normal 0.0 - 0 .7 10^3/mcL AO Workflow SS Eosinophils/100 WBC (Bld) 2.4 % Normal 0.0 - 7.0 % AO Workflow SS Erythrocyte distribution width (RBC) [Ratio] 13.9 % Normal 11.5 - 15.5 % AO Workflow SS GFR/1.73 sq M.predicted among blacks MDRD (S/P/Bld) [Vol rate/Area] 115 ml/min/1.73sqm Invalid Interpretation Code AO Chemistry S Comment on above: Interpretive Data: GFR Population mean for , Non- Americans Ages 20-29 = 116 mL/min/1.73 sq.m. Ages 30-39 = 107 mL/min/1.73 sq.m. Ages 40-49 = 99 mL/min/1.73 sq.m. Ages 50-59 = 93 mL/min/1.73 sq.m. Ages 60-69 = 85 mL/min/1.73 sq.m. Ages 70+ = 75 mL/min/1.73 sq.m. Chronic Kidney Disease: Less than 60 mL/min/1.73 square meters End Stage Renal Disease: Less than 15 mL/min/1.73 square meters GFR/1.73 sq M.predicted among non-blacks MDRD (S/P/Bld) [Vol rate/Area] 95 ml/min/1.73sqm Invalid Interpretation Code AO Chemistry S Comment on above: Interpretive Data: GFR Population mean for , Non- Americans Ages 20-29 = 116 mL/min/1.73 sq.m. Ages 30-39 = 107 mL/min/1.73 sq.m. Ages 40-49 = 99 mL/min/1.73 sq.m. Ages 50-59 = 93 mL/min/1.73 sq.m. Ages 60-69 = 85 mL/min/1.73 sq.m. Ages 70+ = 75 mL/min/1.73 sq.m. Chronic Kidney Disease: Less than 60 mL/min/1.73 square meters End Stage Renal Disease: Less than 15 mL/min/1.73 square meters Globulin 2.5 G/dL Invalid Interpretation Code AO ADM SS Glucose [Mass/Vol] 106 mg/dL Normal 83 - 110 mg/dL AO ADM SS Hematocrit (Bld) [Volume fraction] 39.9 % Low 40.0 - 52.0 % AO Workflow SS Hemoglobin (Bld) [Mass/Vol] 13.8 G/dL Normal 13.0 - 17.5 G/dL AO Workflow SS Lymphocytes (Bld) [#/Vol] 0.9 103/mcL Normal 0.9 - 4.3 10^3/mcL AO Workflow SS Lymphocytes/100 WBC (Bld) 8.6 % Low 20.0 - 40.0 % AO Workflow SS MCH (RBC) [Entitic mass] 32.3 pg Normal 27.0 - 33.0 pg AO Workflow SS MCHC 34.5 G/dL Normal 32.0 - 36.0 G/dL AO Workflow SS MCV (RBC) [Entitic vol] 93.6 fL Normal 81.0 - 100.0 fL AO Workflow SS Monocytes (Bld) [#/Vol] 0.9 103/mcL Normal 0.1 - 1.4 10^3/mcL AO Workflow SS Monocytes/100 WBC (Bld) 8.7 % Normal 2.0 - 13.0 % AO Workflow SS Neutrophils (Bld) [#/Vol] 8.4 103/mcL High 2.3 - 8.1 10^3/mcL AO Workflow SS Neutrophils/100 WBC (Bld) 79.8 % High 50.0 - 75.0 % AO Workflow SS Platelet mean volume (Bld) [Entitic vol] 7.4 fL Normal 6.4 - 10.5 fL AO Workflow SS Platelets (Bld) [#/Vol] 260 103/mcL Normal 150 - 450 10^3/mcL AO Workflow SS Potassium [Moles/Vol] 3.5 mmol/L Normal 3.5 - 5.1 mmol/L AO ADM SS Protein [Mass/Vol] 6.3 G/dL Low 6.4 - 8.2 G/dL AO ADM SS RBC (Bld) [#/Vol] 4.27 106/mcL Low 4.50 - 6.0 0 10^6/mcL AO Workflow SS Sodium [Moles/Vol] 143 mmol/L Normal 136 - 145 mmol/L AO ADM SS Urea nitrogen [Mass/Vol] 14 mg/dL Normal 7 - 18 mg/dL AO ADM SS Urea nitrogen/Creatinine [Mass ratio] 18 ratio Normal 7 - 27 ratio AO ADM SS WBC (Bld) [#/Vol] 10.5 103/mcL Normal 4.5 - 10.8 10^3/mcL AO Workflow SS VIDHon 06-03-2024 Vit. D 25-Hydroxy 13.5 ng/mL Normal [facility] Comment on above: Result Comment: Inte rpretive Values Based on Total 25(OH) Vitamin D: Deficient <20 ng/mL Insufficient 20 - <30 ng/mL Sufficient 30-100 ng/mL Performed By: #### A SHERRELL, ADIFF, GFR, CBC, CMP, VIDH ####[place] [address]#### B12 ####[facility] [place] [id number] .Auto Diffon 05-19-2024 Basophil, Absolute 0.0 10 3/mcL Normal 0.0-0.2 [facility] Comment on above: Performed By: #### V IDH #### [address] [address] Basophils/100 WBC (Bld) 0.5 % Normal 0.0-2.5 [facility] Comment on above: Performed By: #### V IDH #### [address] [address] Eosinophil, Absolute 0.2 10 3/mcL Normal 0.0-0.4 [facility] Comment on above: Performed By: #### V IDH #### [address] [address] Eosinophils/100 WBC (Bld) 3.6 % Normal 0.0-7.0 [facility] Comment on above: Performed By: #### V IDH #### [address] [address] Lymphocyte, Absolute 1.0 10 3/mcL Normal 0.8-3.9 [facility] Comment on above: Performed By: #### V IDH #### [address] [address] Lymphocytes/100 WBC (Bld) 15.6 % Normal 10.0-50.0 [facility] Comment on above: Performed By: #### V IDH #### [address] [address] Monocyte, Absolute 0.6 10 3/mcL Normal 0.2-1.0 [facility] Comment on above: Performed By: #### V IDH #### [address] [address] Monocytes/100 WBC (Bld) 8.6 % Normal 1.7-13.0 [facility] Comment on above: Performed By: #### V IDH #### [address] [address] Neutrophils/100 WBC (Bld) 71.7 % Normal 37.0-80.0 [facility] Comment on above: Performed By: #### V IDH #### [address] [address] .GFRon 05-19-2024 GFR Non- 92 ml/min/1.73sqm Normal [facility] Comment on above: Result Comment: GFR Population mean for , Non- Americans Ages 20-29 = 116 mL/min/1.73 sq.m. Ages 30-39 = 107 mL/min/1.73 sq.m. Ages 40-49 = 99 mL/min/1.73 sq.m. Ages 50-59 = 93 mL/min/1.73 sq.m. Ages 60-69 = 85 mL/min/1.73 sq.m. Ages 70+ = 75 mL/min/1.73 sq.m. Chronic Kidney Disease: Less than 60 mL/min/1.73 square meters End Stage Renal Disease: Less than 15 mL/min/1.73 square meters Performed By: #### [facility] #### [address] [address] GFR 112 ml/min/1.73sqm Normal [facility] Comment on above: Result Comment: GFR Population mean for , Non- Americans Ages 20-29 = 116 mL/min/1.73 sq.m. Ages 30-39 = 107 mL/min/1.73 sq.m. Ages 40-49 = 99 mL/min/1.73 sq.m. Ages 50-59 = 93 mL/min/1.73 sq.m. Ages 60-69 = 85 mL/min/1.73 sq.m. Ages 70+ = 75 mL/min/1.73 sq.m. Chronic Kidney Disease: Less than 60 mL/min/1.73 square meters End Stage Renal Disease: Less than 15 mL/min/1.73 square meters Performed By: #### V IDH #### [id number] [place], [place] [address] .NEUABSon 05-19-2024 Neutrophil, Absolute 4.8 10 3/mcL Normal 2.9-6.2 [facility] Comment on above: Performed By: #### V IDH #### [address] [address] CBCon 05-19-2024 Erythrocyte distribution width (RBC) [Ratio] 13.5 % Normal 11.5-14.5 [facility] Comment on above: Performed By: #### V IDH #### [place] [address] Hematocrit (Bld) [Volume fraction] 39.3 % Low 42.0-52.0 [facility] Comment on above: Performed By: #### V IDH #### [place] [address] Hgb 13.4 G/dL Low 14.0-18.0 [facility] Comment on above: Performed By: #### V IDH #### [address] [address] MCH (RBC) [Entitic mass] 32.1 pg High 27.0-31.2 [facility] Comment on above: Performed By: #### V IDH #### [place] [address] MCHC 34.1 G/dL Normal 31.8-35.4 [facility] Comment on above: Performed By: #### V IDH #### [address] [address] MCV (RBC) [Entitic vol] 94.0 fL Normal 80.0-94.0 [facility] Comment on above: Performed By: #### V IDH #### [address] [address] Platelet 186 10 3/mcL Normal 130-400 [facility] Comment on above: Performed By: #### V IDH #### [address] [address] Platelet mean volume (Bld) [Entitic vol] 7.3 fL Low 7.4-10.4 [facility] Comment on above: Performed By: #### V IDH #### [address] [address] RBC 4.18 10 6/mcL Normal 4.04-6.13 [facility] Comment on above: Performed By: #### V IDH #### [address] [address] WBC 6.6 10 3/mcL Normal 4.6-10.8 [facility] Comment on above: Performed By: #### V IDH #### [address] [address] CMPon 05-19-2024 Albumin Level 3.5 G/dL Normal 3.4-4.8 [facility] Comment on above: Performed By: #### V IDH #### [address] [address] Albumin/Globulin [Mass ratio] 1.3 {ratio} Normal 1.1-2.5 [facility] Comment on above: Performed By: #### V IDH #### [address] [address] ALP [Catalytic activity/Vol] 186 U/L High 40-135 [facility] Comment on above: Performed By: #### V IDH #### [address] [address] ALT [Catalytic activity/Vol] 26 U/L Normal 16-63 [facility] Comment on above: Performed By: #### V IDH #### [address] [address] AST [Catalytic activity/Vol] 14 U/L Normal 10-40 [facility] Comment on above: Performed By: #### V IDH #### [address] [address] Bili Total 0.5 mg/dL Normal 0.2-1.0 [facility] Comment on above: Result Comment: Use of this assay is not recommended for patients undergoing treatment with eltrombopag due to the potential for falsely elevated results. Performed By: #### V IDH #### [address] [address] BUN/Creatinine Ratio 21 ratio Normal 7-27 [facility] Comment on above: Performed By: #### V IDH #### [address] [address] Calcium [Mass/Vol] 9.0 mg/dL Normal 8.4-10.2 [facility] Comment on above: Performed By: #### V IDH #### [place] [id number] Chloride [Moles/Vol] 108 mmol/L High 98-107 [facility] Comment on above: Performed By: #### V IDH #### [place] [address] CO2 [Moles/Vol] 29 mmol/L Normal 23-31 [facility] Comment on above: Performed By: #### V IDH #### [place] [address] Creatinine [Mass/Vol] 0.81 mg/dL Normal 0.70-1.30 [facility] Comment on above: Result Comment: Test ing performed on Siemens Dimension EXL analyzer using a modified kinetic Mars technique. Performed By: #### V IDH #### [address] [address] Electrolyte Balance 7.0 mEq/L Normal 4.0-15.0 [facility] Comment on above: Performed By: #### V IDH #### [address] [address] Globulin 2.6 G/dL Normal [facility] Comment on above: Performed By: #### V IDH #### [address] [address] Glucose [Mass/Vol] 112 mg/dL High 83-110 [facility] Comment on above: Performed By: #### V IDH #### [address] [address] Potassium [Moles/Vol] 4.1 mmol/L Normal 3.5-5.1 [facility] Comment on above: Performed By: #### V IDH #### [id number] [place], [place] [address] Sodium [Moles/Vol] 144 mmol/L Normal 136-145 [facility] Comment on above: Performed By: #### V IDH #### [id number] [place], [place] [address] Total Protein 6.1 G/dL Low 6.4-8.2 [facility] Comment on above: Performed By: #### V IDH #### [id number] [place], [place] [address] Urea nitrogen [Mass/Vol] 17 mg/dL Normal 7-18 [facility] Comment on above: Performed By: #### V IDH #### [address] [address] LABORATORYOrdered By: SYSTEM SYSTEM on 05-19-2024 Albumin BCP dye [Mass/Vol] 3.5 G/dL Normal 3.4 - 4.8 G/dL AO ADM SS Albumin/Globulin [Mass ratio] 1.3 {ratio} Normal 1.1 - 2.5 ratio AO ADM SS ALP [Catalytic activity/Vol] 186 U/L High 40 - 135 U/L AO ADM SS ALT With P-5'-P [Catalytic activity/Vol] 26 U/L Normal 16 - 63 U/L AO ADM SS AST With P-5'-P [Catalytic activity/Vol] 14 U/L Normal 10 - 40 U/L AO ADM SS Basophils (Bld) [#/Vol] 0.0 103/mcL Normal 0.0 - 0.2 10^3/mcL AO Workflow SS Basophils/100 WBC (Bld) 0.5 % Normal 0.0 - 2.5 % AO Workflow SS Bilirubin [Mass/Vol] 0.5 mg/dL Normal 0.2 - 1 .0 mg/dL AO ADM SS Comment on above: Interpretive Data: U se of this assay is not recommended for patients undergoing treatment with eltrombopag due to the potential for falsely elevated results. Calcium [Mass/Vol] 9.0 mg/dL Normal 8.4 - 10. 2 mg/dL AO ADM SS Chloride [Moles/Vol] 108 mmol/L High 98 - 10 7 mmol/L AO ADM SS CO2 [Moles/Vol] 29 mmol/L Normal 23 - 31 mmol/L AO ADM SS Creatinine [Mass/Vol] 0.81 mg/dL Normal 0.70 - 1.30 mg/dL AO ADM SS Comment on above: Interpretive Data: T esting performed on Siemens Dimension EXL analyzer using a modified kinetic Mars technique. Electrolyte Balance 7.0 mEq/L Normal 4.0 - 15 .0 mEq/L AO ADM SS Eosinophil, Absolute 0.2 103/mcL Normal 0.0 - 0 .4 10^3/mcL AO Workflow SS Eosinophils/100 WBC (Bld) 3.6 % Normal 0.0 - 7.0 % AO Workflow SS Erythrocyte distribution width (RBC) [Ratio] 13.5 % Normal 11.5 - 14.5 % AO Workflow SS GFR/1.73 sq M.predicted among blacks MDRD (S/P/Bld) [Vol rate/Area] 112 ml/min/1.73sqm Invalid Interpretation Code AO Chemistry S Comment on above: Interpretive Data: GFR Population mean for , Non- Americans Ages 20-29 = 116 mL/min/1.73 sq.m. Ages 30-39 = 107 mL/min/1.73 sq.m. Ages 40-49 = 99 mL/min/1.73 sq.m. Ages 50-59 = 93 mL/min/1.73 sq.m. Ages 60-69 = 85 mL/min/1.73 sq.m. Ages 70+ = 75 mL/min/1.73 sq.m. Chronic Kidney Disease: Less than 60 mL/min/1.73 square meters End Stage Renal Disease: Less than 15 mL/min/1.73 square meters GFR/1.73 sq M.predicted among non-blacks MDRD (S/P/Bld) [Vol rate/Area] 92 ml/min/1.73sqm Invalid Interpretation Code AO Chemistry S Comment on above: Interpretive Data: GFR Population mean for , Non- Americans Ages 20-29 = 116 mL/min/1.73 sq.m. Ages 30-39 = 107 mL/min/1.73 sq.m. Ages 40-49 = 99 mL/min/1.73 sq.m. Ages 50-59 = 93 mL/min/1.73 sq.m. Ages 60-69 = 85 mL/min/1.73 sq.m. Ages 70+ = 75 mL/min/1.73 sq.m. Chronic Kidney Disease: Less than 60 mL/min/1.73 square meters End Stage Renal Disease: Less than 15 mL/min/1.73 square meters Globulin 2.6 G/dL Invalid Interpretation Code AO ADM SS Glucose [Mass/Vol] 112 mg/dL High 83 - 110 mg/dL AO ADM SS Hematocrit (Bld) [Volume fraction] 39.3 % Low 42.0 - 52.0 % AO Workflow SS Hemoglobin (Bld) [Mass/Vol] 13.4 G/dL Low 14.0 - 18.0 G/dL AO Workflow SS Lymphocytes (Bld) [#/Vol] 1.0 103/mcL Normal 0.8 - 3.9 10^3/mcL AO Workflow SS Lymphocytes/100 WBC (Bld) 15.6 % Normal 10.0 - 50.0 % AO Workflow SS MCH (RBC) [Entitic mass] 32.1 pg High 27.0 - 31.2 pg AO Workflow SS MCHC 34.1 G/dL Normal 31.8 - 35.4 G/dL AO Workflow SS MCV (RBC) [Entitic vol] 94.0 fL Normal 80.0 - 94.0 fL AO Workflow SS Monocytes (Bld) [#/Vol] 0.6 103/mcL Normal 0.2 - 1.0 10^3/mcL AO Workflow SS Monocytes/100 WBC (Bld) 8.6 % Normal 1.7 - 13.0 % AO Workflow SS Neutrophils (Bld) [#/Vol] 4.8 103/mcL Normal 2.9 - 6.2 10^3/mcL AO Workflow SS Neutrophils/100 WBC (Bld) 71.7 % Normal 37.0 - 80.0 % AO Workflow SS Platelet mean volume (Bld) [Entitic vol] 7.3 fL Low 7.4 - 10.4 fL AO Workflow SS Platelets (Bld) [#/Vol] 186 103/mcL Normal 130 - 400 10^3/mcL AO Workflow SS Potassium [Moles/Vol] 4.1 mmol/L Normal 3.5 - 5.1 mmol/L AO ADM SS Protein [Mass/Vol] 6.1 G/dL Low 6.4 - 8.2 G/dL AO ADM SS RBC (Bld) [#/Vol] 4.18 106/mcL Normal 4.04 - 6.1 3 10^6/mcL AO Workflow SS Sodium [Moles/Vol] 144 mmol/L Normal 136 - 145 mmol/L AO ADM SS Urea nitrogen [Mass/Vol] 17 mg/dL Normal 7 - 18 mg/dL AO ADM SS Urea nitrogen/Creatinine [Mass ratio] 21 ratio Normal 7 - 27 ratio AO ADM SS WBC (Bld) [#/Vol] 6.6 103/mcL Normal 4.6 - 10.8 10^3/mcL AO Workflow SS Brandt 05-01-2024 Potassium [Moles/Vol] 3.4 mmol/L Low 3.5-5.1 [facility] ([place] Comment on above: Performed By: #### C MANNIE, ABDIEL, ANEU, BMP, GFR #### [address] [place] [address] LABORATORYOrdered By: SYSTEM SYSTEM on 05-01-2024 Magnesium [Mass/Vol] 2.1 mg/dL Normal 1.8 - 2 .4 mg/dL AO ADM SS Potassium [Moles/Vol] 3.4 mmol/L Low 3.5 - 5.1 mmol/L AO ADM SS MGon 05-01-2024 Magnesium [Mass/Vol] 2.1 mg/dL Normal 1.8-2.4 [facility] ([place] Comment on above: Performed By: #### C MANNIE, ABDIEL, ANEU, BMP, GFR #### [address] [address] Brandt 04-30-2024 Potassium [Moles/Vol] 3.2 mmol/L Low 3.5-5.1 [facility] ([place] Comment on above: Performed By: #### C BC, ABDIEL, ANEU, BMP, GFR #### [address] [place] [address] LABORATORYOrdered By: SYSTEM SYSTEM on 04-30-2024 Potassium [Moles/Vol] 3.2 mmol/L Low 3.5 - 5.1 mmol/L AO ADM SS Brandt 04-28-2024 Potassium [Moles/Vol] 3.1 mmol/L Low 3.5-5.1 [facility] ([place] Comment on above: Performed By: #### C BC, ADIFF, ANEU, BMP, GFR #### [address] [address] LABORATORYOrdered By: SYSTEM SYSTEM on 04-28-2024 Potassium [Moles/Vol] 3.1 mmol/L Low 3.5 - 5.1 mmol/L AO ADM SS .Auto Diffon 04-27-2024 Basophil, Absolute 0.1 10 3/mcL Normal 0.0-0.2 [facility] ([place] Comment on above: Performed By: #### C BC, ADIFF, ANEU, BMP, GFR #### [address] [address] Basophils/100 WBC (Bld) 0.4 % Normal 0.0-2.5 [facility] ([place]) Comment on above: Performed By: #### C BC, ADIFF, ANEU, BMP, GFR #### [address] [address] Eosinophil, Absolute 0.3 10 3/mcL Normal 0.0-0.4 [facility] ([place] Comment on above: Performed By: #### C BC, ADIFF, ANEU, BMP, GFR #### [address] [address] Eosinophils/100 WBC (Bld) 2.4 % Normal 0.0-7.0 [facility] ([place] Comment on above: Performed By: #### C BC, ADIFF, ANEU, BMP, GFR #### [address] [address] Lymphocyte, Absolute 1.0 10 3/mcL Normal 0.8-3.9 [facility] ([place] Comment on above: Performed By: #### C BC, ADIFF, ANEU, BMP, GFR #### [address] [address] Lymphocytes/100 WBC (Bld) 8.8 % Low 10.0-50.0 [facility] ([place] Comment on above: Performed By: #### C BC, ADIFF, ANEU, BMP, GFR #### [address] [address] Monocyte, Absolute 1.0 10 3/mcL Normal 0.2-1.0 [facility] ([place] Comment on above: Performed By: #### C BC, ADIFF, ANEU, BMP, GFR #### [address] [address] Monocytes/100 WBC (Bld) 8.9 % Normal 1.7-13.0 [facility] ([place] Comment on above: Performed By: #### C BC, ADIFF, ANEU, BMP, GFR #### [address] [address] Neutrophils/100 WBC (Bld) 79.5 % Normal 37.0-80.0 [facility] ([place] Comment on above: Performed By: #### C BC, ADIFF, ANEU, BMP, GFR #### [address] [address] .GFRon 04-27-2024 GFR 122 ml/min/1.73sqm Normal [facility] ([place] Comment on above: Result Comment: GFR Population mean for , Non- Americans Ages 20-29 = 116 mL/min/1.73 sq.m. Ages 30-39 = 107 mL/min/1.73 sq.m. Ages 40-49 = 99 mL/min/1.73 sq.m. Ages 50-59 = 93 mL/min/1.73 sq.m. Ages 60-69 = 85 mL/min/1.73 sq.m. Ages 70+ = 75 mL/min/1.73 sq.m. Chronic Kidney Disease: Less than 60 mL/min/1.73 square meters End Stage Renal Disease: Less than 15 mL/min/1.73 square meters Performed By: #### C BC, ADIFF, ANEU, BMP, GFR #### [address] [address] GFR Non- 101 ml/min/1.73sqm Normal [facility] ([place] Comment on above: Result Comment: GFR Population mean for , Non- Americans Ages 20-29 = 116 mL/min/1.73 sq.m. Ages 30-39 = 107 mL/min/1.73 sq.m. Ages 40-49 = 99 mL/min/1.73 sq.m. Ages 50-59 = 93 mL/min/1.73 sq.m. Ages 60-69 = 85 mL/min/1.73 sq.m. Ages 70+ = 75 mL/min/1.73 sq.m. Chronic Kidney Disease: Less than 60 mL/min/1.73 square meters End Stage Renal Disease: Less than 15 mL/min/1.73 square meters Performed By: #### C BC, ADIFF, ANEU, BMP, GFR #### [address] [address] .NEUABSon 04-27-2024 Neutrophil, Absolute 9.2 10 3/mcL High 2.9-6.2 [facility] ([place] Comment on above: Performed By: #### C BC, ADIFF, ANEU, BMP, GFR #### [address] [address] CBCon 04-27-2024 Erythrocyte distribution width (RBC) [Ratio] 13.6 % Normal 11.5-14.5 [facility] ([place] Comment on above: Performed By: #### C BC, ADIFF, ANEU, BMP, GFR #### [address] [address] Hematocrit (Bld) [Volume fraction] 36.7 % Low 42.0-52.0 [facility] ([place] Comment on above: Performed By: #### C BC, ADIFF, ANEU, BMP, GFR #### [address] [address] Hgb 12.6 G/dL Low 14.0-18.0 [facility] ([place] Comment on above: Performed By: #### C BC, ADIFF, ANEU, BMP, GFR #### [address] [address] MCH (RBC) [Entitic mass] 32.3 pg High 27.0-31.2 [facility] ([place] Comment on above: Performed By: #### C BC, ADIFF, ANEU, BMP, GFR #### [address] [address] MCHC 34.4 G/dL Normal 31.8-35.4 [facility] ([place] Comment on above: Performed By: #### C BC, ADIFF, ANEU, BMP, GFR #### [address] [address] MCV (RBC) [Entitic vol] 93.9 fL Normal 80.0-94.0 [facility] ([place] Comment on above: Performed By: #### C BC, ADIFF, ANEU, BMP, GFR #### [address] [address] Platelet 238 10 3/mcL Normal 130-400 [facility] ([place] Comment on above: Performed By: #### C BC, ADIFF, ANEU, BMP, GFR #### [address] [address] Platelet mean volume (Bld) [Entitic vol] 7.4 fL Normal 7.4-10.4 [facility] ([place] Comment on above: Performed By: #### C BC, ADIFF, ANEU, BMP, GFR #### [address] [address] RBC 3.91 10 6/mcL Low 4.04-6.13 [facility] ([place] Comment on above: Performed By: #### C BC, ADIFF, ANEU, BMP, GFR #### [address] [address] WBC 11.5 10 3/mcL High 4.6-10.8 [facility] ([place] Comment on above: Performed By: #### C BC, ADIFF, ANEU, BMP, GFR #### [address] [address] CMPon 04-27-2024 Albumin Level 3.1 G/dL Low 3.4-4.8 [facility] ([place] Comment on above: Performed By: #### C BC, ADIFF, ANEU, BMP, GFR #### [address] [address] Albumin/Globulin [Mass ratio] 1.2 {ratio} Normal 1.1-2.5 [facility] ([place] Comment on above: Performed By: #### C BC, ADIFF, ANEU, BMP, GFR #### [address] [address] ALP [Catalytic activity/Vol] 121 U/L Normal 40-135 [facility] ([place] Comment on above: Performed By: #### C BC, ADIFF, ANEU, BMP, GFR #### [address] [address] ALT [Catalytic activity/Vol] 58 U/L Normal 16-63 [facility] ([place] Comment on above: Performed By: #### C BC, ADIFF, ANEU, BMP, GFR #### [address] [address] AST [Catalytic activity/Vol] 26 U/L Normal 10-40 [facility] ([place] Comment on above: Performed By: #### C BC, ADIFF, ANEU, BMP, GFR #### [address] [address] Bili Total 0.4 mg/dL Normal 0.2-1.0 [facility] ([place] Comment on above: Result Comment: Use of this assay is not recommended for patients undergoing treatment with eltrombopag due to the potential for falsely elevated results. Performed By: #### C BC, ADIFF, ANEU, BMP, GFR #### [address] [address] BUN/Creatinine Ratio 23 ratio Normal 7-27 [facility] ([place] Comment on above: Performed By: #### C BC, ADIFF, ANEU, BMP, GFR #### [address] [address] Calcium [Mass/Vol] 8.6 mg/dL Normal 8.4-10.2 [facility] ([place] Comment on above: Performed By: #### C BC, ADIFF, ANEU, BMP, GFR #### [place] [id number] Chloride [Moles/Vol] 107 mmol/L Normal 98-107 [facility] ([place] Comment on above: Performed By: #### C BC, ADIFF, ANEU, BMP, GFR #### [place] [address] CO2 [Moles/Vol] 32 mmol/L High 23-31 [facility] ([place] Comment on above: Performed By: #### C BC, ADIFF, ANEU, BMP, GFR #### [place] [address] Creatinine [Mass/Vol] 0.75 mg/dL Normal 0.70-1.30 [facility] ([place] Comment on above: Performed By: #### C BC, ADIFF, ANEU, BMP, GFR #### [place] [address] Electrolyte Balance 7.0 mEq/L Normal 4.0-15.0 [facility] ([place]) Comment on above: Performed By: #### C BC, ADIFF, ANEU, BMP, GFR #### [place] [address] Globulin 2.6 G/dL Normal [facility] ([place] Comment on above: Performed By: #### C BC, ADIFF, ANEU, BMP, GFR #### [place] [address] Glucose [Mass/Vol] 98 mg/dL Normal 83-110 [facility] ([place] Comment on above: Performed By: #### C BC, ADIFF, ANEU, BMP, GFR #### [place] [address] Potassium [Moles/Vol] 3.2 mmol/L Low 3.5-5.1 [facility] ([place] Comment on above: Performed By: #### C BC, ADIFF, ANEU, BMP, GFR #### [address] [place] [address] Sodium [Moles/Vol] 146 mmol/L High 136-145 [facility] ([place] Comment on above: Performed By: #### C BC, ADIFF, ANEU, BMP, GFR #### [address] [address] Total Protein 5.7 G/dL Low 6.4-8.2 [facility] ([place] Comment on above: Performed By: #### C BC, ADIFF, ANEU, BMP, GFR #### [place] [address] [address] Urea nitrogen [Mass/Vol] 17 mg/dL Normal 7-18 [facility] ([place] Comment on above: Performed By: #### C BC, ADIFF, ANEU, BMP, GFR #### [address] [address] LABORATORYOrdered By: SYSTEM SYSTEM on 04-27-2024 Albumin BCP dye [Mass/Vol] 3.1 G/dL Low 3.4 - 4.8 G/dL AO ADM SS Albumin/Globulin [Mass ratio] 1.2 {ratio} Normal 1.1 - 2.5 ratio AO ADM SS ALP [Catalytic activity/Vol] 121 U/L Normal 40 - 135 U/L AO ADM SS ALT With P-5'-P [Catalytic activity/Vol] 58 U/L Normal 16 - 63 U/L AO ADM SS AST With P-5'-P [Catalytic activity/Vol] 26 U/L Normal 10 - 40 U/L AO ADM SS Basophil, Absolute 0.1 103/mcL Normal 0.0 - 0.2 10^3/mcL AO Workflow SS Basophils/100 WBC (Bld) 0.4 % Normal 0.0 - 2.5 % AO Workflow SS Bilirubin [Mass/Vol] 0.4 mg/dL Normal 0.2 - 1 .0 mg/dL AO ADM SS Comment on above: Interpretive Data: U se of this assay is not recommended for patients undergoing treatment with eltrombopag due to the potential for falsely elevated results. Calcium [Mass/Vol] 8.6 mg/dL Normal 8.4 - 10. 2 mg/dL AO ADM SS Chloride [Moles/Vol] 107 mmol/L Normal 98 - 10 7 mmol/L AO ADM SS CO2 [Moles/Vol] 32 mmol/L High 23 - 31 mmol/L AO ADM SS Creatinine [Mass/Vol] 0.75 mg/dL Normal 0.70 - 1.30 mg/dL AO ADM SS Electrolyte Balance 7.0 mEq/L Normal 4.0 - 15 .0 mEq/L AO ADM SS Eosinophil, Absolute 0.3 103/mcL Normal 0.0 - 0 .4 10^3/mcL AO Workflow SS Eosinophils/100 WBC (Bld) 2.4 % Normal 0.0 - 7.0 % AO Workflow SS Erythrocyte distribution width (RBC) [Ratio] 13.6 % Normal 11.5 - 14.5 % AO Workflow SS GFR/1.73 sq M.predicted among blacks MDRD (S/P/Bld) [Vol rate/Area] 122 ml/min/1.73sqm Invalid Interpretation Code AO Chemistry S Comment on above: Interpretive Data: GFR Population mean for , Non- Americans Ages 20-29 = 116 mL/min/1.73 sq.m. Ages 30-39 = 107 mL/min/1.73 sq.m. Ages 40-49 = 99 mL/min/1.73 sq.m. Ages 50-59 = 93 mL/min/1.73 sq.m. Ages 60-69 = 85 mL/min/1.73 sq.m. Ages 70+ = 75 mL/min/1.73 sq.m. Chronic Kidney Disease: Less than 60 mL/min/1.73 square meters End Stage Renal Disease: Less than 15 mL/min/1.73 square meters GFR/1.73 sq M.predicted among non-blacks MDRD (S/P/Bld) [Vol rate/Area] 101 ml/min/1.73sqm Invalid Interpretation Code AO Chemistry S Comment on above: Interpretive Data: GFR Population mean for , Non- Americans Ages 20-29 = 116 mL/min/1.73 sq.m. Ages 30-39 = 107 mL/min/1.73 sq.m. Ages 40-49 = 99 mL/min/1.73 sq.m. Ages 50-59 = 93 mL/min/1.73 sq.m. Ages 60-69 = 85 mL/min/1.73 sq.m. Ages 70+ = 75 mL/min/1.73 sq.m. Chronic Kidney Disease: Less than 60 mL/min/1.73 square meters End Stage Renal Disease: Less than 15 mL/min/1.73 square meters Globulin 2.6 G/dL Invalid Interpretation Code AO ADM SS Glucose [Mass/Vol] 98 mg/dL Normal 83 - 110 mg/dL AO ADM SS Hematocrit (Bld) [Volume fraction] 36.7 % Low 42.0 - 52.0 % AO Workflow SS Hemoglobin (Bld) [Mass/Vol] 12.6 G/dL Low 14.0 - 18.0 G/dL AO Workflow SS Lymphocyte, Absolute 1.0 103/mcL Normal 0.8 - 3 .9 10^3/mcL AO Workflow SS Lymphocytes/100 WBC (Bld) 8.8 % Low 10.0 - 50.0 % AO Workflow SS MCH (RBC) [Entitic mass] 32.3 pg High 27.0 - 31.2 pg AO Workflow SS MCHC 34.4 G/dL Normal 31.8 - 35.4 G/dL AO Workflow SS MCV (RBC) [Entitic vol] 93.9 fL Normal 80.0 - 94.0 fL AO Workflow SS Monocyte, Absolute 1.0 103/mcL Normal 0.2 - 1.0 10^3/mcL AO Workflow SS Monocytes/100 WBC (Bld) 8.9 % Normal 1.7 - 13.0 % AO Workflow SS Neutrophil, Absolute 9.2 103/mcL High 2.9 - 6 .2 10^3/mcL AO Workflow SS Neutrophils/100 WBC (Bld) 79.5 % Normal 37.0 - 80.0 % AO Workflow SS Platelet mean volume (Bld) [Entitic vol] 7.4 fL Normal 7.4 - 10.4 fL AO Workflow SS Platelets (Bld) [#/Vol] 238 103/mcL Normal 130 - 400 10^3/mcL AO Workflow SS Protein [Mass/Vol] 5.7 G/dL Low 6.4 - 8.2 G/dL AO ADM SS RBC (Bld) [#/Vol] 3.91 106/mcL Low 4.04 - 6.1 3 10^6/mcL AO Workflow SS Sodium [Moles/Vol] 146 mmol/L High 136 - 145 mmol/L AO ADM SS Urea nitrogen [Mass/Vol] 17 mg/dL Normal 7 - 18 mg/dL AO ADM SS Urea nitrogen/Creatinine [Mass ratio] 23 ratio Normal 7 - 27 ratio AO ADM SS WBC (Bld) [#/Vol] 11.5 103/mcL High 4.6 - 10.8 10^3/mcL AO Workflow SS MYCOon 04-27-2024 Mycoplasma IgG Negative Normal [facility] ([place]) Comment on above: Order Comment: Cassie [place] [id number] 04/23/2024 15:31:57 EDT.Called and faxed to Archie Mayen @[address] [place] [address] Result Comment: INTE RPRETATION OF MYCOPLASMA IgG BY EIA: Negative: No detectable M. pneumoniae IgG antibody. Positive: Mycoplasma pneumoniae IgG antibody Detected. Equivocal: Equivocal for IgG antibodies to Mycoplasma pneumoniae. Suggest repeat testing in 10-14 days. Performed By: #### C MANNIE, IVETT MEADOWS, BMP, GFR #### [place] [address] [address] .GFRon 04-26-2024 GFR 112 ml/min/1.73sqm Normal [facility] ([place] Comment on above: Result Comment: GFR Population mean for , Non- Americans Ages 20-29 = 116 mL/min/1.73 sq.m. Ages 30-39 = 107 mL/min/1.73 sq.m. Ages 40-49 = 99 mL/min/1.73 sq.m. Ages 50-59 = 93 mL/min/1.73 sq.m. Ages 60-69 = 85 mL/min/1.73 sq.m. Ages 70+ = 75 mL/min/1.73 sq.m. Chronic Kidney Disease: Less than 60 mL/min/1.73 square meters End Stage Renal Disease: Less than 15 mL/min/1.73 square meters Performed By: #### C BC, ADIFF, ANEU, BMP, GFR #### [place] [address] [address] GFR Non- 92 ml/min/1.73sqm Normal [facility] ([place]) Comment on above: Result Comment: GFR Population mean for , Non- Americans Ages 20-29 = 116 mL/min/1.73 sq.m. Ages 30-39 = 107 mL/min/1.73 sq.m. Ages 40-49 = 99 mL/min/1.73 sq.m. Ages 50-59 = 93 mL/min/1.73 sq.m. Ages 60-69 = 85 mL/min/1.73 sq.m. Ages 70+ = 75 mL/min/1.73 sq.m. Chronic Kidney Disease: Less than 60 mL/min/1.73 square meters End Stage Renal Disease: Less than 15 mL/min/1.73 square meters Performed By: #### C BC, ADIFF, ANEU, BMP, GFR #### [address] [address] BMPon 04-26-2024 BUN/Creatinine Ratio 23 ratio Normal 7-27 [facility] ([place]) Comment on above: Performed By: #### C BC, ADIFF, ANEU, BMP, GFR #### [address] [address] Calcium [Mass/Vol] 8.9 mg/dL Normal 8.4-10.2 [facility] ([place]) Comment on above: Performed By: #### C BC, ADIFF, ANEU, BMP, GFR #### [address] [address] Chloride [Moles/Vol] 109 mmol/L High 98-107 [facility] ([place] Comment on above: Performed By: #### C BC, ADIFF, ANEU, BMP, GFR #### [address] [address] CO2 [Moles/Vol] 32 mmol/L High 23-31 [facility] ([place]) Comment on above: Performed By: #### C BC, ADIFF, ANEU, BMP, GFR #### [address] [address] Creatinine [Mass/Vol] 0.81 mg/dL Normal 0.70-1.30 [facility] ([place]) Comment on above: Performed By: #### C BC, ADIFF, ANEU, BMP, GFR #### [address] [address] Electrolyte Balance 6.0 mEq/L Normal 4.0-15.0 [facility] ([place]) Comment on above: Performed By: #### C BC, ADIFF, ANEU, BMP, GFR #### [address] [address] Glucose [Mass/Vol] 108 mg/dL Normal 83-110 [facility] ([place]) Comment on above: Performed By: #### C BC, ADIFF, ANEU, BMP, GFR #### [address] [address] Potassium [Moles/Vol] 3.2 mmol/L Low 3.5-5.1 [facility] ([place]) Comment on above: Performed By: #### C BC, ADIFF, ANEU, BMP, GFR #### [address] [address] Sodium [Moles/Vol] 147 mmol/L High 136-145 [facility] ([place]) Comment on above: Performed By: #### C BC, ADIFF, ANEU, BMP, GFR #### [address] [address] Urea nitrogen [Mass/Vol] 19 mg/dL High 7-18 [facility] ([place]) Comment on above: Performed By: #### C BC, ADIFF, ANEU, BMP, GFR #### [address] [address] LABORATORYOrdered By: SYSTEM SYSTEM on 04-26-2024 Calcium [Mass/Vol] 8.9 mg/dL Normal 8.4 - 10. 2 mg/dL AO ADM SS Chloride [Moles/Vol] 109 mmol/L High 98 - 10 7 mmol/L AO ADM SS CO2 [Moles/Vol] 32 mmol/L High 23 - 31 mmol/L AO ADM SS Creatinine [Mass/Vol] 0.81 mg/dL Normal 0.70 - 1.30 mg/dL AO ADM SS Electrolyte Balance 6.0 mEq/L Normal 4.0 - 15 .0 mEq/L AO ADM SS GFR/1.73 sq M.predicted among blacks MDRD (S/P/Bld) [Vol rate/Area] 112 ml/min/1.73sqm Invalid Interpretation Code AO Chemistry S Comment on above: Interpretive Data: GFR Population mean for , Non- Americans Ages 20-29 = 116 mL/min/1.73 sq.m. Ages 30-39 = 107 mL/min/1.73 sq.m. Ages 40-49 = 99 mL/min/1.73 sq.m. Ages 50-59 = 93 mL/min/1.73 sq.m. Ages 60-69 = 85 mL/min/1.73 sq.m. Ages 70+ = 75 mL/min/1.73 sq.m. Chronic Kidney Disease: Less than 60 mL/min/1.73 square meters End Stage Renal Disease: Less than 15 mL/min/1.73 square meters GFR/1.73 sq M.predicted among non-blacks MDRD (S/P/Bld) [Vol rate/Area] 92 ml/min/1.73sqm Invalid Interpretation Code AO Chemistry S Comment on above: Interpretive Data: GFR Population mean for , Non- Americans Ages 20-29 = 116 mL/min/1.73 sq.m. Ages 30-39 = 107 mL/min/1.73 sq.m. Ages 40-49 = 99 mL/min/1.73 sq.m. Ages 50-59 = 93 mL/min/1.73 sq.m. Ages 60-69 = 85 mL/min/1.73 sq.m. Ages 70+ = 75 mL/min/1.73 sq.m. Chronic Kidney Disease: Less than 60 mL/min/1.73 square meters End Stage Renal Disease: Less than 15 mL/min/1.73 square meters Glucose [Mass/Vol] 108 mg/dL Normal 83 - 110 mg/dL AO ADM SS Potassium [Moles/Vol] 3.2 mmol/L Low 3.5 - 5.1 mmol/L AO ADM SS Sodium [Moles/Vol] 147 mmol/L High 136 - 145 mmol/L AO ADM SS Urea nitrogen [Mass/Vol] 19 mg/dL High 7 - 18 mg/dL AO ADM SS Urea nitrogen/Creatinine [Mass ratio] 23 ratio Normal 7 - 27 ratio AO ADM SS .Auto Diffon 04-25-2024 Basophil, Absolute 0.0 10 3/mcL Normal 0.0-0.2 [facility] ([place] Comment on above: Performed By: #### C BC, ADIFF, ANEU, BMP, GFR #### [address] [address] Basophils/100 WBC (Bld) 0.4 % Normal 0.0-2.5 [facility] ([place] Comment on above: Performed By: #### C BC, ADIFF, ANEU, BMP, GFR #### [address] [address] Eosinophil, Absolute 0.3 10 3/mcL Normal 0.0-0.4 [facility] ([place] Comment on above: Performed By: #### C BC, ADIFF, ANEU, BMP, GFR #### [address] [address] Eosinophils/100 WBC (Bld) 3.1 % Normal 0.0-7.0 [facility] ([place] Comment on above: Performed By: #### C BC, ADIFF, ANEU, BMP, GFR #### [address] [address] Lymphocyte, Absolute 1.0 10 3/mcL Normal 0.8-3.9 [facility] ([place] Comment on above: Performed By: #### C BC, ADIFF, ANEU, BMP, GFR #### [address] [address] Lymphocytes/100 WBC (Bld) 10.3 % Normal 10.0-50.0 [facility] ([place] Comment on above: Performed By: #### C BC, ADIFF, ANEU, BMP, GFR #### [address] [address] Monocyte, Absolute 0.9 10 3/mcL Normal 0.2-1.0 [facility] ([place] Comment on above: Performed By: #### C BC, ADIFF, ANEU, BMP, GFR #### [address] [address] Monocytes/100 WBC (Bld) 9.1 % Normal 1.7-13.0 [facility] ([place] Comment on above: Performed By: #### C BC, ADIFF, ANEU, BMP, GFR #### [address] [address] Neutrophils/100 WBC (Bld) 77.1 % Normal 37.0-80.0 [facility] ([place] Comment on above: Performed By: #### C BC, ADIFF, ANEU, BMP, GFR #### [address] [address] .GFRon 04-25-2024 GFR 107 ml/min/1.73sqm Normal [facility] ([place]) Comment on above: Result Comment: GFR Population mean for , Non- Americans Ages 20-29 = 116 mL/min/1.73 sq.m. Ages 30-39 = 107 mL/min/1.73 sq.m. Ages 40-49 = 99 mL/min/1.73 sq.m. Ages 50-59 = 93 mL/min/1.73 sq.m. Ages 60-69 = 85 mL/min/1.73 sq.m. Ages 70+ = 75 mL/min/1.73 sq.m. Chronic Kidney Disease: Less than 60 mL/min/1.73 square meters End Stage Renal Disease: Less than 15 mL/min/1.73 square meters Performed By: #### C BC, ADIFF, ANEU, BMP, GFR #### [address] [address] GFR Non- 88 ml/min/1.73sqm Normal [facility] ([place]) Comment on above: Result Comment: GFR Population mean for , Non- Americans Ages 20-29 = 116 mL/min/1.73 sq.m. Ages 30-39 = 107 mL/min/1.73 sq.m. Ages 40-49 = 99 mL/min/1.73 sq.m. Ages 50-59 = 93 mL/min/1.73 sq.m. Ages 60-69 = 85 mL/min/1.73 sq.m. Ages 70+ = 75 mL/min/1.73 sq.m. Chronic Kidney Disease: Less than 60 mL/min/1.73 square meters End Stage Renal Disease: Less than 15 mL/min/1.73 square meters Performed By: #### C BC, ADIFF, ANEU, BMP, GFR #### [address] [address] .NEUABSon 04-25-2024 Neutrophil, Absolute 7.4 10 3/mcL High 2.9-6.2 [facility] ([place] Comment on above: Performed By: #### C BC, ADIFF, ANEU, BMP, GFR #### [address] [address] BMPon 04-25-2024 BUN/Creatinine Ratio 31 ratio High 7-27 [facility] ([place] Comment on above: Performed By: #### C BC, ADIFF, ANEU, BMP, GFR #### [address] [address] Calcium [Mass/Vol] 8.9 mg/dL Normal 8.4-10.2 [facility] ([place] Comment on above: Performed By: #### C BC, ADIFF, ANEU, BMP, GFR #### [address] [address] Chloride [Moles/Vol] 110 mmol/L High 98-107 [facility] [place] Comment on above: Performed By: #### C BC, ADIFF, ANEU, BMP, GFR #### [address] [address] CO2 [Moles/Vol] 30 mmol/L Normal 23-31 [facility] ([place]) Comment on above: Performed By: #### C BC, ADIFF, ANEU, BMP, GFR #### [address] [address] Creatinine [Mass/Vol] 0.84 mg/dL Normal 0.70-1.30 [facility] ([place]) Comment on above: Performed By: #### C BC, ADIFF, ANEU, BMP, GFR #### [address] [address] Electrolyte Balance 8.0 mEq/L Normal 4.0-15.0 [facility] ([place]) Comment on above: Performed By: #### C BC, ADIFF, ANEU, BMP, GFR #### [address] [address] Glucose [Mass/Vol] 120 mg/dL High 83-110 [facility] ([place] Comment on above: Performed By: #### C BC, ADIFF, ANEU, BMP, GFR #### [address] [address] Potassium [Moles/Vol] 3.5 mmol/L Normal 3.5-5.1 [facility] ([place]) Comment on above: Performed By: #### C BC, ADIFF, ANEU, BMP, GFR #### [address] [address] Sodium [Moles/Vol] 148 mmol/L High 136-145 [facility] ([place] Comment on above: Performed By: #### C BC, ADIFF, ANEU, BMP, GFR #### [address] [address] Urea nitrogen [Mass/Vol] 26 mg/dL High 7-18 [facility] ([place]) Comment on above: Performed By: #### C BC, ADIFF, ANEU, BMP, GFR #### [address] [address] CBCon 04-25-2024 Erythrocyte distribution width (RBC) [Ratio] 14.1 % Normal 11.5-14.5 [facility] ([place]) Comment on above: Performed By: #### C BC, ADIFF, ANEU, BMP, GFR #### [address] [address] Hematocrit (Bld) [Volume fraction] 36.6 % Low 42.0-52.0 [facility] ([place]) Comment on above: Performed By: #### C BC, ADIFF, ANEU, BMP, GFR #### [address] [address] Hgb 12.8 G/dL Low 14.0-18.0 [facility] ([place] Comment on above: Performed By: #### C BC, ADIFF, ANEU, BMP, GFR #### [address] [address] MCH (RBC) [Entitic mass] 32.9 pg High 27.0-31.2 [facility] ([place]) Comment on above: Performed By: #### C BC, ADIFF, ANEU, BMP, GFR #### [address] [address] MCHC 34.9 G/dL Normal 31.8-35.4 [facility] ([place] Comment on above: Performed By: #### C BC, ADIFF, ANEU, BMP, GFR #### [address] [address] MCV (RBC) [Entitic vol] 94.1 fL High 80.0-94.0 [facility] ([place]) Comment on above: Performed By: #### C BC, ADIFF, ANEU, BMP, GFR #### [address] [address] Platelet 218 10 3/mcL Normal 130-400 [facility] ([place]) Comment on above: Performed By: #### C BC, ADIFF, ANEU, BMP, GFR #### [address] [address] Platelet mean volume (Bld) [Entitic vol] 7.3 fL Low 7.4-10.4 [facility] ([place]) Comment on above: Performed By: #### C BC, ADIFF, ANEU, BMP, GFR #### [address] [address] RBC 3.89 10 6/mcL Low 4.04-6.13 [facility] ([place]) Comment on above: Performed By: #### C BC, ADIFF, ANEU, BMP, GFR #### [address] [address] WBC 9.6 10 3/mcL Normal 4.6-10.8 [facility] ([place]) Comment on above: Performed By: #### C BC, ADIFF, ANEU, BMP, GFR #### [facility] [place] [address] [place], [place] [address] LABORATORYOrdered By: SYSTEM SYSTEM on 04-25-2024 Basophil, Absolute 0.0 103/mcL Normal 0.0 - 0.2 10^3/mcL AO Workflow SS Basophils/100 WBC (Bld) 0.4 % Normal 0.0 - 2.5 % AO Workflow SS Calcium [Mass/Vol] 8.9 mg/dL Normal 8.4 - 10. 2 mg/dL AO ADM SS Chloride [Moles/Vol] 110 mmol/L High 98 - 10 7 mmol/L AO ADM SS CO2 [Moles/Vol] 30 mmol/L Normal 23 - 31 mmol/L AO ADM SS Creatinine [Mass/Vol] 0.84 mg/dL Normal 0.70 - 1.30 mg/dL AO ADM SS Electrolyte Balance 8.0 mEq/L Normal 4.0 - 15 .0 mEq/L AO ADM SS Eosinophil, Absolute 0.3 103/mcL Normal 0.0 - 0 .4 10^3/mcL AO Workflow SS Eosinophils/100 WBC (Bld) 3.1 % Normal 0.0 - 7.0 % AO Workflow SS Erythrocyte distribution width (RBC) [Ratio] 14.1 % Normal 11.5 - 14.5 % AO Workflow SS GFR/1.73 sq M.predicted among blacks MDRD (S/P/Bld) [Vol rate/Area] 107 ml/min/1.73sqm Invalid Interpretation Code AO Chemistry S Comment on above: Interpretive Data: GFR Population mean for , Non- Americans Ages 20-29 = 116 mL/min/1.73 sq.m. Ages 30-39 = 107 mL/min/1.73 sq.m. Ages 40-49 = 99 mL/min/1.73 sq.m. Ages 50-59 = 93 mL/min/1.73 sq.m. Ages 60-69 = 85 mL/min/1.73 sq.m. Ages 70+ = 75 mL/min/1.73 sq.m. Chronic Kidney Disease: Less than 60 mL/min/1.73 square meters End Stage Renal Disease: Less than 15 mL/min/1.73 square meters GFR/1.73 sq M.predicted among non-blacks MDRD (S/P/Bld) [Vol rate/Area] 88 ml/min/1.73sqm Invalid Interpretation Code AO Chemistry S Comment on above: Interpretive Data: GFR Population mean for , Non- Americans Ages 20-29 = 116 mL/min/1.73 sq.m. Ages 30-39 = 107 mL/min/1.73 sq.m. Ages 40-49 = 99 mL/min/1.73 sq.m. Ages 50-59 = 93 mL/min/1.73 sq.m. Ages 60-69 = 85 mL/min/1.73 sq.m. Ages 70+ = 75 mL/min/1.73 sq.m. Chronic Kidney Disease: Less than 60 mL/min/1.73 square meters End Stage Renal Disease: Less than 15 mL/min/1.73 square meters Glucose [Mass/Vol] 120 mg/dL High 83 - 110 mg/dL AO ADM SS Hematocrit (Bld) [Volume fraction] 36.6 % Low 42.0 - 52.0 % AO Workflow SS Hemoglobin (Bld) [Mass/Vol] 12.8 G/dL Low 14.0 - 18.0 G/dL AO Workflow SS Lymphocyte, Absolute 1.0 103/mcL Normal 0.8 - 3 .9 10^3/mcL AO Workflow SS Lymphocytes/100 WBC (Bld) 10.3 % Normal 10.0 - 50.0 % AO Workflow SS MCH (RBC) [Entitic mass] 32.9 pg High 27.0 - 31.2 pg AO Workflow SS MCHC 34.9 G/dL Normal 31.8 - 35.4 G/dL AO Workflow SS MCV (RBC) [Entitic vol] 94.1 fL High 80.0 - 94.0 fL AO Workflow SS Monocyte, Absolute 0.9 103/mcL Normal 0.2 - 1.0 10^3/mcL AO Workflow SS Monocytes/100 WBC (Bld) 9.1 % Normal 1.7 - 13.0 % AO Workflow SS Neutrophil, Absolute 7.4 103/mcL High 2.9 - 6 .2 10^3/mcL AO Workflow SS Neutrophils/100 WBC (Bld) 77.1 % Normal 37.0 - 80.0 % AO Workflow SS Platelet mean volume (Bld) [Entitic vol] 7.3 fL Low 7.4 - 10.4 fL AO Workflow SS Platelets (Bld) [#/Vol] 218 103/mcL Normal 130 - 400 10^3/mcL AO Workflow SS Potassium [Moles/Vol] 3.5 mmol/L Normal 3.5 - 5.1 mmol/L AO ADM SS RBC (Bld) [#/Vol] 3.89 106/mcL Low 4.04 - 6.1 3 10^6/mcL AO Workflow SS Sodium [Moles/Vol] 148 mmol/L High 136 - 145 mmol/L AO ADM SS Urea nitrogen [Mass/Vol] 26 mg/dL High 7 - 18 mg/dL AO ADM SS Urea nitrogen/Creatinine [Mass ratio] 31 ratio High 7 - 27 ratio AO ADM SS WBC (Bld) [#/Vol] 9.6 103/mcL Normal 4.6 - 10.8 10^3/mcL AO Workflow SS .Auto Diffon 04-24-2024 Basophil, Absolute 0.0 10 3/mcL Normal 0.0-0.2 [facility] [place] Comment on above: Performed By: #### C MANNIE, ABDIEL, ANEU, BMP, GFR #### [address] [address] Basophils/100 WBC (Bld) 0.4 % Normal 0.0-2.5 [facility] ([place]) Comment on above: Performed By: #### C BCABDIEL, ANEU, BMP, GFR #### [address] [address] Eosinophil, Absolute 0.1 10 3/mcL Normal 0.0-0.4 [facility] ([place] Comment on above: Performed By: #### C BC, ABDIEL, ANEU, BMP, GFR #### [address] [address] Eosinophils/100 WBC (Bld) 0.6 % Normal 0.0-7.0 [facility] ([place]) Comment on above: Performed By: #### C BC, ADROSIE, ANEU, BMP, GFR #### [address] [address] Lymphocyte, Absolute 1.1 10 3/mcL Normal 0.8-3.9 [facility] ([place] Comment on above: Performed By: #### C BC, ADROSIE, ANEU, BMP, GFR #### [address] [address] Lymphocytes/100 WBC (Bld) 8.7 % Low 10.0-50.0 [facility] ([place] Comment on above: Performed By: #### C BC, ADIFF, ANEU, BMP, GFR #### [address] [address] Monocyte, Absolute 1.0 10 3/mcL Normal 0.2-1.0 [facility] ([place]) Comment on above: Performed By: #### C BC, ADIFF, ANEU, BMP, GFR #### [address] [address] Monocytes/100 WBC (Bld) 7.8 % Normal 1.7-13.0 [facility] ([place]) Comment on above: Performed By: #### C BC, ADIFF, ANEU, BMP, GFR #### [address] [address] Neutrophils/100 WBC (Bld) 82.5 % High 37.0-80.0 [facility] ([place] Comment on above: Performed By: #### C BC, ADIFF, ANEU, BMP, GFR #### [address] [address] .GFRon 04-24-2024 GFR 107 ml/min/1.73sqm Normal [facility] ([place]) Comment on above: Result Comment: GFR Population mean for , Non- Americans Ages 20-29 = 116 mL/min/1.73 sq.m. Ages 30-39 = 107 mL/min/1.73 sq.m. Ages 40-49 = 99 mL/min/1.73 sq.m. Ages 50-59 = 93 mL/min/1.73 sq.m. Ages 60-69 = 85 mL/min/1.73 sq.m. Ages 70+ = 75 mL/min/1.73 sq.m. Chronic Kidney Disease: Less than 60 mL/min/1.73 square meters End Stage Renal Disease: Less than 15 mL/min/1.73 square meters Performed By: #### M RSAPCR #### [address] [address] GFR Non- 88 ml/min/1.73sqm Normal [facility] ([place]) Comment on above: Result Comment: GFR Population mean for , Non- Americans Ages 20-29 = 116 mL/min/1.73 sq.m. Ages 30-39 = 107 mL/min/1.73 sq.m. Ages 40-49 = 99 mL/min/1.73 sq.m. Ages 50-59 = 93 mL/min/1.73 sq.m. Ages 60-69 = 85 mL/min/1.73 sq.m. Ages 70+ = 75 mL/min/1.73 sq.m. Chronic Kidney Disease: Less than 60 mL/min/1.73 square meters End Stage Renal Disease: Less than 15 mL/min/1.73 square meters Performed By: #### M RSAPCR #### [place] [address] .NEUABSon 04-24-2024 Neutrophil, Absolute 10.2 10 3/mcL High 2.9-6.2 [facility] ([place]) Comment on above: Performed By: #### M RSAPCR #### [place] [id number] CBCon 04-24-2024 Erythrocyte distribution width (RBC) [Ratio] 13.5 % Normal 11.5-14.5 [facility] ([place]) Comment on above: Performed By: #### C BC ADIFF, ANEU, BMP, GFR #### [facility] [address] [address] Hematocrit (Bld) [Volume fraction] 37.7 % Low 42.0-52.0 [facility] ([place] Comment on above: Performed By: #### C BC, ADIFF, ANEU, BMP, GFR #### [facility] [address] [address] Hgb 13.1 G/dL Low 14.0-18.0 [facility] ([place] Comment on above: Performed By: #### C BC, ADIFF, ANEU, BMP, GFR #### [address] [address] MCH (RBC) [Entitic mass] 32.9 pg High 27.0-31.2 [facility] ([place]) Comment on above: Performed By: #### C BC, ADIFF, ANEU, BMP, GFR #### [place] [id number] MCHC 34.8 G/dL Normal 31.8-35.4 [facility] ([place] Comment on above: Performed By: #### C BC, ADIFF, ANEU, BMP, GFR #### [place] [id number] MCV (RBC) [Entitic vol] 94.4 fL High 80.0-94.0 [facility] ([place] Comment on above: Performed By: #### C BC, ADIFF, ANEU, BMP, GFR #### [place] [address] Platelet 226 10 3/mcL Normal 130-400 [facility] ([place] Comment on above: Performed By: #### C BC, ADIFF, ANEU, BMP, GFR #### [place] [address] Platelet mean volume (Bld) [Entitic vol] 7.5 fL Normal 7.4-10.4 [facility] ([place] Comment on above: Performed By: #### C BC, ADIFF, ANEU, BMP, GFR #### [place] [id number] RBC 4.00 10 6/mcL Low 4.04-6.13 [facility] ([place] Comment on above: Performed By: #### C BC, ADIFF, ANEU, BMP, GFR #### [place] [id number] WBC 12.3 10 3/mcL High 4.6-10.8 [facility] ([place] Comment on above: Performed By: #### C BC, ADIFF, ANEU, BMP, GFR #### [place] [address] CMPon 04-24-2024 Albumin Level 3.2 G/dL Low 3.4-4.8 [facility] ([place] Comment on above: Performed By: #### M RSAPCR #### [address] [address] Albumin/Globulin [Mass ratio] 1.1 {ratio} Normal 1.1-2.5 [facility] ([place] Comment on above: Performed By: #### M RSAPCR #### [address] [address] ALP [Catalytic activity/Vol] 150 U/L High 40-135 [facility] ([place] Comment on above: Performed By: #### M RSAPCR #### [address] [address] ALT [Catalytic activity/Vol] 90 U/L High 16-63 [facility] ([place] Comment on above: Performed By: #### M RSAPCR #### [address] [address] AST [Catalytic activity/Vol] 28 U/L Normal 10-40 [facility] ([place] Comment on above: Performed By: #### M RSAPCR #### [address] [address] Bili Total 0.5 mg/dL Normal 0.2-1.0 [facility] ([place] Comment on above: Result Comment: Use of this assay is not recommended for patients undergoing treatment with eltrombopag due to the potential for falsely elevated results. Performed By: #### M RSAPCR #### [address] [address] BUN/Creatinine Ratio 36 ratio High 7-27 [facility] [place] Comment on above: Performed By: #### M RSAPCR #### [address] [address] Calcium [Mass/Vol] 8.8 mg/dL Normal 8.4-10.2 [facility] ([place] Comment on above: Performed By: #### M RSAPCR #### [address] [address] Chloride [Moles/Vol] 109 mmol/L High 98-107 [facility] [place] Comment on above: Performed By: #### M RSAPCR #### [address] [address] CO2 [Moles/Vol] 32 mmol/L High 23-31 [facility] ([place] Comment on above: Performed By: #### M RSAPCR #### [address] [address] Creatinine [Mass/Vol] 0.84 mg/dL Normal 0.70-1.30 [facility] ([place] Comment on above: Performed By: #### M RSAPCR #### [address] [address] Electrolyte Balance 5.0 mEq/L Normal 4.0-15.0 [facility] ([place] Comment on above: Performed By: #### M RSAPCR #### [address] [address] Globulin 2.9 G/dL Normal [facility] ([place] Comment on above: Performed By: #### M RSAPCR #### [address] [address] Glucose [Mass/Vol] 111 mg/dL High 83-110 [facility] ([place] Comment on above: Performed By: #### M RSAPCR #### [address] [address] Potassium [Moles/Vol] 3.4 mmol/L Low 3.5-5.1 [facility] ([place] Comment on above: Performed By: #### M RSAPCR #### [address] [address] Sodium [Moles/Vol] 146 mmol/L High 136-145 [facility] ([place] Comment on above: Performed By: #### M RSAPCR #### [address] [address] Total Protein 6.1 G/dL Low 6.4-8.2 [facility] ([place] Comment on above: Performed By: #### M RSAPCR #### [facility] [address] [place] [address] Urea nitrogen [Mass/Vol] 30 mg/dL High 7-18 [facility] ([place]) Comment on above: Performed By: #### M RSAPCR #### [address] [address] LABORATORYOrdered By: SYSTEM SYSTEM on 04-24-2024 Albumin BCP dye [Mass/Vol] 3.2 G/dL Low 3.4 - 4.8 G/dL AO ADM SS Albumin/Globulin [Mass ratio] 1.1 {ratio} Normal 1.1 - 2.5 ratio AO ADM SS ALP [Catalytic activity/Vol] 150 U/L High 40 - 135 U/L AO ADM SS ALT With P-5'-P [Catalytic activity/Vol] 90 U/L High 16 - 63 U/L AO ADM SS AST With P-5'-P [Catalytic activity/Vol] 28 U/L Normal 10 - 40 U/L AO ADM SS Basophil, Absolute 0.0 103/mcL Normal 0.0 - 0.2 10^3/mcL AO Workflow SS Basophils/100 WBC (Bld) 0.4 % Normal 0.0 - 2.5 % AO Workflow SS Bilirubin [Mass/Vol] 0.5 mg/dL Normal 0.2 - 1 .0 mg/dL AO ADM SS Comment on above: Interpretive Data: U se of this assay is not recommended for patients undergoing treatment with eltrombopag due to the potential for falsely elevated results. Calcium [Mass/Vol] 8.8 mg/dL Normal 8.4 - 10. 2 mg/dL AO ADM SS Chloride [Moles/Vol] 109 mmol/L High 98 - 10 7 mmol/L AO ADM SS CO2 [Moles/Vol] 32 mmol/L High 23 - 31 mmol/L AO ADM SS Creatinine [Mass/Vol] 0.84 mg/dL Normal 0.70 - 1.30 mg/dL AO ADM SS Electrolyte Balance 5.0 mEq/L Normal 4.0 - 15 .0 mEq/L AO ADM SS Eosinophil, Absolute 0.1 103/mcL Normal 0.0 - 0 .4 10^3/mcL AO Workflow SS Eosinophils/100 WBC (Bld) 0.6 % Normal 0.0 - 7.0 % AO Workflow SS Erythrocyte distribution width (RBC) [Ratio] 13.5 % Normal 11.5 - 14.5 % AO Workflow SS GFR/1.73 sq M.predicted among blacks MDRD (S/P/Bld) [Vol rate/Area] 107 ml/min/1.73sqm Invalid Interpretation Code AO Chemistry S Comment on above: Interpretive Data: GFR Population mean for , Non- Americans Ages 20-29 = 116 mL/min/1.73 sq.m. Ages 30-39 = 107 mL/min/1.73 sq.m. Ages 40-49 = 99 mL/min/1.73 sq.m. Ages 50-59 = 93 mL/min/1.73 sq.m. Ages 60-69 = 85 mL/min/1.73 sq.m. Ages 70+ = 75 mL/min/1.73 sq.m. Chronic Kidney Disease: Less than 60 mL/min/1.73 square meters End Stage Renal Disease: Less than 15 mL/min/1.73 square meters GFR/1.73 sq M.predicted among non-blacks MDRD (S/P/Bld) [Vol rate/Area] 88 ml/min/1.73sqm Invalid Interpretation Code AO Chemistry S Comment on above: Interpretive Data: GFR Population mean for , Non- Americans Ages 20-29 = 116 mL/min/1.73 sq.m. Ages 30-39 = 107 mL/min/1.73 sq.m. Ages 40-49 = 99 mL/min/1.73 sq.m. Ages 50-59 = 93 mL/min/1.73 sq.m. Ages 60-69 = 85 mL/min/1.73 sq.m. Ages 70+ = 75 mL/min/1.73 sq.m. Chronic Kidney Disease: Less than 60 mL/min/1.73 square meters End Stage Renal Disease: Less than 15 mL/min/1.73 square meters Globulin 2.9 G/dL Invalid Interpretation Code AO ADM SS Glucose [Mass/Vol] 111 mg/dL High 83 - 110 mg/dL AO ADM SS Hematocrit (Bld) [Volume fraction] 37.7 % Low 42.0 - 52.0 % AO Workflow SS Hemoglobin (Bld) [Mass/Vol] 13.1 G/dL Low 14.0 - 18.0 G/dL AO Workflow SS Lymphocyte, Absolute 1.1 103/mcL Normal 0.8 - 3 .9 10^3/mcL AO Workflow SS Lymphocytes/100 WBC (Bld) 8.7 % Low 10.0 - 50.0 % AO Workflow SS MCH (RBC) [Entitic mass] 32.9 pg High 27.0 - 31.2 pg AO Workflow SS MCHC 34.8 G/dL Normal 31.8 - 35.4 G/dL AO Workflow SS MCV (RBC) [Entitic vol] 94.4 fL High 80.0 - 94.0 fL AO Workflow SS Monocyte, Absolute 1.0 103/mcL Normal 0.2 - 1.0 10^3/mcL AO Workflow SS Monocytes/100 WBC (Bld) 7.8 % Normal 1.7 - 13.0 % AO Workflow SS Neutrophil, Absolute 10.2 103/mcL High 2.9 - 6 .2 10^3/mcL AO Workflow SS Neutrophils/100 WBC (Bld) 82.5 % High 37.0 - 80.0 % AO Workflow SS Platelet mean volume (Bld) [Entitic vol] 7.5 fL Normal 7.4 - 10.4 fL AO Workflow SS Platelets (Bld) [#/Vol] 226 103/mcL Normal 130 - 400 10^3/mcL AO Workflow SS Potassium [Moles/Vol] 3.4 mmol/L Low 3.5 - 5.1 mmol/L AO ADM SS Protein [Mass/Vol] 6.1 G/dL Low 6.4 - 8.2 G/dL AO ADM SS RBC (Bld) [#/Vol] 4.00 106/mcL Low 4.04 - 6.1 3 10^6/mcL AO Workflow SS Sodium [Moles/Vol] 146 mmol/L High 136 - 145 mmol/L AO ADM SS Urea nitrogen [Mass/Vol] 30 mg/dL High 7 - 18 mg/dL AO ADM SS Urea nitrogen/Creatinine [Mass ratio] 36 ratio High 7 - 27 ratio AO ADM SS WBC (Bld) [#/Vol] 12.3 103/mcL High 4.6 - 10.8 10^3/mcL AO Workflow SS .Auto DiffOrdered By: SYSTEM SYSTEM on 04-23-2024 Basophil, Absolute 0.0 103/mcL Normal 0.0-0.2 AO Wo rkflow SS Comment on above: Performed By: #### C MANNIE, ABDIEL, ANEU, BMP, GFR #### [address] [address] Basophils/100 WBC (Bld) 0.1 % Normal 0.0-2.5 AO Workflow SS Comment on above: Performed By: #### C BC, ADIFF, ANEU, BMP, GFR #### [address] [address] Eosinophil, Absolute 0.0 103/mcL Normal 0.0-0.4 AO Workflow SS Comment on above: Performed By: #### C BC, ADIFF, ANEU, BMP, GFR #### [address] [address] Eosinophils/100 WBC (Bld) 0.1 % Normal 0.0-7.0 AO Workflow SS Comment on above: Performed By: #### C BC, ADIFF, ANEU, BMP, GFR #### [address] [address] Lymphocyte, Absolute 0.4 103/mcL Low 0.8-3.9 AO Workflow SS Comment on above: Performed By: #### C BC, ADIFF, ANEU, BMP, GFR #### [address] [address] Lymphocytes/100 WBC (Bld) 6.9 % Low 10.0-50.0 AO Workflow SS Comment on above: Performed By: #### C BC, ADIFF, ANEU, BMP, GFR #### [address] [address] Monocyte, Absolute 0.1 103/mcL Low 0.2-1.0 AO Wo rkflow SS Comment on above: Performed By: #### C BC, ADIFF, ANEU, BMP, GFR #### [address] [address] Monocytes/100 WBC (Bld) 2.7 % Normal 1.7-13.0 AO Workflow SS Comment on above: Performed By: #### C BC, ADIFF, ANEU, BMP, GFR #### [address] [address] Neutrophils/100 WBC (Bld) 90.2 % High 37.0-80.0 AO Workflow SS Comment on above: Performed By: #### C BC, ADIFF, ANEU, BMP, GFR #### [address] [address] .GFRon 04-23-2024 GFR 95 ml/min/1.73sqm Normal [facility] ([place]) Comment on above: Result Comment: GFR Population mean for , Non- Americans Ages 20-29 = 116 mL/min/1.73 sq.m. Ages 30-39 = 107 mL/min/1.73 sq.m. Ages 40-49 = 99 mL/min/1.73 sq.m. Ages 50-59 = 93 mL/min/1.73 sq.m. Ages 60-69 = 85 mL/min/1.73 sq.m. Ages 70+ = 75 mL/min/1.73 sq.m. Chronic Kidney Disease: Less than 60 mL/min/1.73 square meters End Stage Renal Disease: Less than 15 mL/min/1.73 square meters Performed By: #### C BC, ADIFF, ANEU, BMP, GFR #### [address] [address] GFR Non- 79 ml/min/1.73sqm Normal [facility] ([place]) Comment on above: Result Comment: GFR Population mean for , Non- Americans Ages 20-29 = 116 mL/min/1.73 sq.m. Ages 30-39 = 107 mL/min/1.73 sq.m. Ages 40-49 = 99 mL/min/1.73 sq.m. Ages 50-59 = 93 mL/min/1.73 sq.m. Ages 60-69 = 85 mL/min/1.73 sq.m. Ages 70+ = 75 mL/min/1.73 sq.m. Chronic Kidney Disease: Less than 60 mL/min/1.73 square meters End Stage Renal Disease: Less than 15 mL/min/1.73 square meters Performed By: #### C BC, ADIFF, ANEU, BMP, GFR #### [address] [address] .NEUABSOrdered By: SYSTEM SY STEM on 04-23-2024 Neutrophil, Absolute 4.8 103/mcL Normal 2.9-6.2 AO Workflow SS Comment on above: Performed By: #### C BC, ADIFF, ANEU, BMP, GFR #### [place] [id number] .Urinalysis Microscopic (AO) on 04-23-2024 UA RBC None Seen Normal None Seen [facility] ([place]) Comment on above: Performed By: #### C BC, ADIFF, ANEU, BMP, GFR #### [place] [address] UA Squam Epithelial None Seen Normal None Seen [facility] ([place]) Comment on above: Performed By: #### C BC, ADIFF, ANEU, BMP, GFR #### [place] [address] UA WBC None Seen Normal None Seen [facility] ([place] Comment on above: Performed By: #### C BC, ADIFF, ANEU, BMP, GFR #### [place] [address] CBCOrdered By: PeerJ SYSTEM on 04-23-2024 Erythrocyte distribution width (RBC) [Ratio] 13.5 % Normal 11.5-14.5 AO Workflow SS Comment on above: Performed By: #### C BC, ADIFF, ANEU, BMP, GFR #### [place] [address] Hematocrit (Bld) [Volume fraction] 38.7 % Low 42.0-52.0 AO Workflow SS Comment on above: Performed By: #### C BC, ADIFF, ANEU, BMP, GFR #### [place] [address]67 MCH (RBC) [Entitic mass] 32.6 pg High 27.0-31.2 AO Workflow SS Comment on above: Performed By: #### C BC, ADIFF, ANEU, BMP, GFR #### [place] [id number] MCHC 34.6 G/dL Normal 31.8-35.4 AO Workflow SS Comment on above: Performed By: #### C BC, ADIFF, ANEU, BMP, GFR #### [address] [address] MCV (RBC) [Entitic vol] 94.4 fL High 80.0-94.0 AO Workflow SS Comment on above: Performed By: #### C BC, ADIFF, ANEU, BMP, GFR #### [address] [address] Platelet mean volume (Bld) [Entitic vol] 7.7 fL Normal 7.4-10.4 AO Workflow SS Comment on above: Performed By: #### C BC, ADIFF, ANEU, BMP, GFR #### [address] [address] CBCon 04-23-2024 Hgb 13.4 G/dL Low 14.0-18.0 [facility] ([place] Comment on above: Performed By: #### C BC, ADIFF, ANEU, BMP, GFR #### [address] [address] Platelet 235 10 3/mcL Normal 130-400 [facility] ([place] Comment on above: Performed By: #### C BC, ADIFF, ANEU, BMP, GFR #### [address] [address] RBC 4.10 10 6/mcL Normal 4.04-6.13 [facility] ([place] Comment on above: Performed By: #### C BC, ADIFF, ANEU, BMP, GFR #### [address] [address] WBC 5.3 10 3/mcL Normal 4.6-10.8 [facility] ([place] Comment on above: Performed By: #### C BC, ADIFF, ANEU, BMP, GFR #### [place] [address] [address] CMPon 04-23-2024 Albumin Level 3.1 G/dL Low 3.4-4.8 [facility] ([place] Comment on above: Performed By: #### C BC, ADIFF, ANEU, BMP, GFR #### [address] [address] ALT [Catalytic activity/Vol] 125 U/L High 16-63 [facility] ([place] Comment on above: Performed By: #### C BC, ADIFF, ANEU, BMP, GFR #### [address] [address] AST [Catalytic activity/Vol] 79 U/L High 10-40 [facility] ([place] Comment on above: Performed By: #### C BC, ADIFF, ANEU, BMP, GFR #### [address] [address] Bili Total 0.4 mg/dL Normal 0.2-1.0 [facility] ([place] Comment on above: Result Comment: Use of this assay is not recommended for patients undergoing treatment with eltrombopag due to the potential for falsely elevated results. Performed By: #### C BC, ADIFF, ANEU, BMP, GFR #### [address] [address] BUN/Creatinine Ratio 33 ratio High 7-27 [facility] ([place] Comment on above: Performed By: #### C BC, ADIFF, ANEU, BMP, GFR #### [address] [address] Calcium [Mass/Vol] 8.7 mg/dL Normal 8.4-10.2 [facility] ([place] Comment on above: Performed By: #### C BC, ADIFF, ANEU, BMP, GFR #### [address] [address] Chloride [Moles/Vol] 107 mmol/L Normal 98-107 [facility] ([place] Comment on above: Performed By: #### C BC, ADIFF, ANEU, BMP, GFR #### [address] [address] CO2 [Moles/Vol] 29 mmol/L Normal 23-31 [facility] ([place] Comment on above: Performed By: #### C BC, ADIFF, ANEU, BMP, GFR #### [address] [address] Creatinine [Mass/Vol] 0.93 mg/dL Normal 0.70-1.30 [facility] ([place] Comment on above: Performed By: #### C BC, ADIFF, ANEU, BMP, GFR #### [address] [address] Electrolyte Balance 8.0 mEq/L Normal 4.0-15.0 [facility] ([place] Comment on above: Performed By: #### C BC, ADIFF, ANEU, BMP, GFR #### [address] [address] Glucose [Mass/Vol] 173 mg/dL High 83-110 [facility] ([place] Comment on above: Performed By: #### C BC, ADIFF, ANEU, BMP, GFR #### [address] [address] Potassium [Moles/Vol] 3.9 mmol/L Normal 3.5-5.1 [facility] ([place] Comment on above: Performed By: #### C BC, ADIFF, ANEU, BMP, GFR #### [address] [address] Sodium [Moles/Vol] 144 mmol/L Normal 136-145 [facility] ([place] Comment on above: Performed By: #### C BC, ADIFF, ANEU, BMP, GFR #### [address] [address] Total Protein 6.2 G/dL Low 6.4-8.2 [facility] ([place] Comment on above: Performed By: #### C BC, ADIFF, ANEU, BMP, GFR #### [address] [address] Urea nitrogen [Mass/Vol] 31 mg/dL High 7-18 [facility] ([place] Comment on above: Performed By: #### C BC, ADIFF, ANEU, BMP, GFR #### [address] [address] CMPOrdered By: SYSTEM SYSTEM on 04-23-2024 Albumin/Globulin [Mass ratio] 1.0 {ratio} Low 1.1-2.5 AO ADM SS Comment on above: Performed By: #### C BC, ADIFF, ANEU, BMP, GFR #### [place] [address] [place], [place] [address] ALP [Catalytic activity/Vol] 183 U/L High 40-135 AO ADM SS Comment on above: Performed By: #### C BC, ADIFF, ANEU, BMP, GFR #### [place] [address] [place], [place] [address] Globulin 3.1 G/dL Normal AO ADM SS Comment on above: Performed By: #### C BC, ADIFF, ANEU, BMP, GFR #### [place] [address] [place], [place] [address] LABORATORYOrdered By: Tan De León on 04-23-2024 Adenovirus DNA DARYA+non-probe Ql (Nph) Not Detected *NA* (04/23/24 10:33 AM) Invalid Interpretation Code Not Detected AH Auto Viro/Sero SS B. parapertussis [id number] DNA DARYA+non-probe Ql (Nph) Not Detected *NA* (04/23/24 10:33 AM) Invalid Interpretation Code Not Detected AH Auto Viro/Sero SS B. pertussis toxin promoter region DARYA+non-probe Ql (Nph) Not Detected *NA* (04/23/24 10:33 AM) Invalid Interpretation Code Not Detected AH Auto Viro/Sero SS C. pneumoniae DNA DARYA+non-probe Ql (Nph) Not Detected *NA* (04/23/24 10:33 AM) Invalid Interpretation Code Not Detected AH Auto Viro/Sero SS FLUAV RNA DARYA+non-probe Ql (Nph) Not Detected *NA* (04/23/24 10:33 AM) Invalid Interpretation Code Not Detected AH Auto Viro/Sero SS FLUBV RNA DARYA+non-probe Ql (Nph) Not Detected *NA* (04/23/24 10:33 AM) Invalid Interpretation Code Not Detected AH Auto Viro/Sero SS hMPV RNA DARYA+non-probe Ql (Nph) Not Detected *NA* (04/23/24 10:33 AM) Invalid Interpretation Code Not Detected AH Auto Viro/Sero SS M. pneumoniae DNA DARYA+non-probe Ql (Nph) Not Detected *NA* (04/23/24 10:33 AM) Invalid Interpretation Code Not Detected AH Auto Viro/Sero SS Parainfluenza virus 1 RNA DARYA+non-probe Ql (Nph) Not Detected *NA* (04/23/24 10:33 AM) Invalid Interpretation Code Not Detected AH Auto Viro/Sero SS Parainfluenza virus 2 RNA DARYA+non-probe Ql (Nph) Not Detected *NA* (04/23/24 10:33 AM) Invalid Interpretation Code Not Detected AH Auto Viro/Sero SS Parainfluenza virus 3 RNA DARYA+non-probe Ql (Nph) Not Detected *NA* (04/23/24 10:33 AM) Invalid Interpretation Code Not Detected AH Auto Viro/Sero SS Parainfluenza virus 4 RNA DARYA+non-probe Ql (Nph) Not Detected *NA* (04/23/24 10:33 AM) Invalid Interpretation Code Not Detected AH Auto Viro/Sero SS Rhinovirus+Enteroviru s RNA DARYA+non-probe Ql (Nph) Not Detected *NA* (04/23/24 10:33 AM) Invalid Interpretation Code Not Detected AH Auto Viro/Sero SS RSV RNA DARYA+non-probe Ql (Nph) Not Detected *NA* (04/23/24 10:33 AM) Invalid Interpretation Code Not Detected AH Auto Viro/Sero SS SARS-CoV-2 (COVID-19) RNA DARYA+probe Ql (Resp) Not Detected 4 *NA* (04/23/24 10:33 AM) Invalid Interpretation Code Not Detected AH Auto Viro/Sero SS Comment on above: Interpretive Data: T his assay has been validated in the [facility] for use with nasopharyngeal specimens in [facility]. If a non-validated specimen or test collection method was used, please interpret the results with caution, especially if the test result is negative. A positive test result for COVID-19 indicates that RNA from SARS-CoV-2 was detected, and the patient is infected with the virus and presumed to be contagious. Laboratory test results should always be considered in the context of clinical observations and epidemiological data in making a final diagnosis and patient management decisions. Patient management should follow current CDC guidelines. A negative test result for this test means that SARS-CoV-2 RNA was not present in the specimen above the limit of detection. However, a negative result does not rule out COVID-19 and should not be used as the sole basis for treatment or patient management decisions. A negative result does not exclude the possibility of COVID-19. When diagnostic testing is negative, the possibility of a false negative result should be considered in the context of a patient's recent exposures and the presence of clinical signs and symptoms consistent with COVID-19. The possibility of a false negative result should especially be considered if the patient s recent exposures or clinical presentation indicate that COVID-19 is likely, and diagnostic tests for other causes of illness (e.g., other respiratory illness) are negative. If COVID-19 is still suspected based on exposure history together with other clinical findings, re-testing should be considered by healthcare providers in consultation with public health authorities. MRSA (PCR) Not Detected 1 (04/23/24 3:29 AM) Normal Not Detected Auto Viro/Sero SS Comment on above: Result Comment: [place] [id number] MRSA PCR Int MRSA DNA not detecte d by Real-Time Polymerase Chain Reaction (PCR). A negative result may be due to intermittent colonization. Colonization may vary depending on patient treatment, patient status, or exposure to high-risk environments.As with all PCR based in vitro diagnostic tests, extremely low levels of target below the limit of detection of the assay may be detected, but results may not be reproducible. Invalid Interpretation Code Auto Viro/Sero SS LABORATORYOrdered By: SYSTEM SYSTEM on 04-23-2024 Albumin BCP dye [Mass/Vol] 3.1 G/dL Low 3.4 - 4.8 G/dL AO ADM SS ALT With P-5'-P [Catalytic activity/Vol] 125 U/L High 16 - 63 U/L AO ADM SS AST With P-5'-P [Catalytic activity/Vol] 79 U/L High 10 - 40 U/L AO ADM SS Bilirubin [Mass/Vol] 0.4 mg/dL Normal 0.2 - 1 .0 mg/dL AO ADM SS Comment on above: Interpretive Data: U se of this assay is not recommended for patients undergoing treatment with eltrombopag due to the potential for falsely elevated results. Hemoglobin (Bld) [Mass/Vol] 13.4 G/dL Low 14.0 - 18.0 G/dL AO Workflow SS Platelets (Bld) [#/Vol] 235 103/mcL Normal 130 - 400 10^3/mcL AO Workflow SS Protein [Mass/Vol] 6.2 G/dL Low 6.4 - 8.2 G/dL AO ADM SS RBC (Bld) [#/Vol] 4.10 106/mcL Normal 4.04 - 6.1 3 10^6/mcL AO Workflow SS WBC (Bld) [#/Vol] 5.3 103/mcL Normal 4.6 - 10.8 10^3/mcL AO Workflow SS LABORATORYOrdered By: Graciela Soliz on 04-23-2024 Appearance (U) Clear (04/23/24 3:19 AM) Normal Clear AO Auto Urine SS Bilirubin Ql (U) Negative (04/23/24 3:19 AM) Normal Negative AO Auto Urine SS Color (U) Dark yellow Invalid Interpretation Code AO Auto Urine SS Glucose Test strip (U) [Mass/Vol] Negative Normal Negative AO Auto Urine SS Hemoglobin Auto test strip (U) [Mass/Vol] Negative (04/23/24 3:19 AM) Normal Negative AO Auto Urine SS Ketones Ql (U) 15 mg/dL Invalid Interpretation Code Negative AO Auto Urine SS UA Leuk Est Negative (04/23/24 3:19 AM) Normal Negative AO Auto Urine SS UA Nitrite Negative (04/23/24 3:19 AM) Normal Negative AO Auto Urine SS UA pH 6.0 (04/23/24 3:19 AM) Normal 5.0 - 8.0 AO Auto Urine SS UA Protein 30 mg/dL Normal Negative AO Auto Urine SS UA RBC None Seen /HPF Normal None Seen AO Auto Ur ine SS UA Spec Grav >=1.030 *ABN* (04/23/24 3:19 AM) Invalid Interpretation Code 1.015-1.025 AO Auto Urine SS UA Specimen Type Clean Catch (04/23/24 3:19 AM) Normal AO Auto Urine SS UA Squam Epithelial None Seen /HPF Normal None Seen A O Auto Urine SS UA Urobilinogen >=8.0 E.U./dL Invalid Interpretation Code 0.2-1.0 AO Auto Urine SS WBC LM.HPF (Urine sed) [#/Area] None Seen /HPF Normal None Seen AO Auto Urine SS MGOrdered By: SYSTEM SYSTEM on 04-23-2024 Magnesium [Mass/Vol] 1.8 mg/dL Normal 1.8-2.4 AO A DM SS Comment on above: Performed By: #### C BC, ADIFF, ANEU, BMP, GFR #### [place] [address] [place], [place] [address] MRI SPINE LUMBAR W/O CONTRAS Ton 04-23-2024 MRI SPINE LUMBAR W/O CONTRAST ORIGINAL INDICATION:ORDERING SYSTEM PROVIDED HISTORY: Reason for Exam: Worsening lumbar pain, inability to ambulate TECHNIQUE: MRI of the lumbar spine was performed without the administration of intravenous contrast, according to standard protocol. COMPARISON: MRI lumbar spine 11/18/2023, lumbar spine x-rays 04/22/2024 FINDINGS: ALIGNMENT: Trace degenerative anterolisthesis of L5 on S1. VERTEBRAE: Redemonstrated is a remote compression fracture of the T11 vertebral body status post augmentation changes. Height loss is greater than 25% and unchanged. There is a recent L1 burst fracture with less than 25% height loss extending through the left paracentral posterior cortex (sagittal T2 image 10 series 5). Diffuse STIR hyperintensity with corresponding T1 hypointensity is noted. Trace posterosuperior retropulsion. There is laxity of the posterior longitudinal ligament which appears intact (sagittal T2 image 9). No epidural hematoma. Remote fracture of the approximate S2 vertebral body. DISCS: Widespread disc desiccation. Preserved disc height at each lumbar level. Widened disc height at T11-T12, T12-L1, and L1-L2 associated with adjacent compression fractures. CONUS MEDULLARIS AND CAUDA EQUINA: The conus medullaris terminates at L1-L2 and is normal. The cauda equina are unremarkable. SPINAL CANAL: Overall reduced caliber of the spinal canal secondary to congenitally short pedicles. PARAVERTEBRAL SOFT TISSUES: Mild prevertebral and bilateral paraspinal edema at the L1 level. Multilevel posterior paraspinous muscle atrophy. EVALUATION OF INDIVIDUAL LEVELS DEMONSTRATES: T12-L1: No disc herniation, central canal stenosis or significant foraminal narrowing. Mild bilateral facet arthrosis. L1-L2: No disc herniation, central canal stenosis or significant foraminal narrowing. Mild right foraminal narrowing. Mild bilateral facet arthrosis. L2-L3: Small circumferential disc bulge, small canal, and mild facet arthrosis causes mild bilateral foraminal narrowing without central canal stenosis. L3-L4: Small circumferential disc bulge asymmetric to the right extraforaminal zone and mild facet arthrosis causes moderate bilateral foraminal narrowing the central canal stenosis. L4-L5: Diffuse posterior disc bulge, dorsal lipomatosis, congenitally small canal, ligamentum flavum hypertrophy and facet arthrosis causes bilateral lateral recess narrowing, mild to moderate central canal stenosis and moderately severe bilateral foraminal narrowing. Disc may impinge the exited right L4 nerve root. L5-S1: Small diffuse posterior disc bulge, disc unroofing associated with an anterolisthesis of L5 on S1, and moderately severe facet arthrosis causes severe left and [id number] right foraminal narrowing without central canal stenosis. LIMITED EVALUATION OF UPPER SACRUM AND SACROILIAC JOINTS: Degenerative changes of the bilateral sacroiliac joints. IMPRESSION: 1. Recent L1 burst fracture with less than 25% height loss, trace retropulsion and without an associated epidural hematoma. 2. Stable remote compression fracture of the T11 vertebral body with post augmentation changes. 3. 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 4. Level by level findings as described. Interpreted by: Modesto Lunsford MD Preliminary Report By: Modesto Lunsford MD Electronically signed By Modesto Lunsford MD Dictated Date: 04/23/2024 10:34:51 AM Prelim Date: 04/23/2024 10:53:15 AM Sign Date: 04/23/2024 10:53:15 AM Ordering Provider: OSMEL BURRELL Pending [facility] To [facility] ([place]) MRSAPCRon 04-23-2024 MRSA (PCR) Not detected Normal Not Detected [facility] ([place]) Comment on above: Result Comment: [place] [id number] Performed By: #### M RSAPCR #### [place] [address] MRSA PCR Int Count includes the [facility]) Comment on above: Result Comment: MRSA DNA not detected by Real-Time Polymerase Chain Reaction (PCR). A negative result may be due to intermittent colonization. Colonization may vary depending on patient treatment, patient status, or exposure to high-risk environments. As with all PCR based in vitro diagnostic tests, extremely low levels of target below the limit of detection of the assay may be detected, but results may not be reproducible. See Below Performed By: #### M RSAPCR #### [place] [id number] [facility] 04-23-2024 Mycoplasma IgM Positive Abnormal [facility] ([place]) Comment on above: Order Comment: Resul t called to [facility] [place] [id number] 04/23/2024 15:31:57 EDT.Called and faxed to [facility] @[address] [place] [address] Result Comment: INTE RPRETATION OF MYCOPLASMA IgM: Negative: IgM to M. pneumoniae Absent, or at levels below the assay limit of detection. Positive: IgM to M. pneumoniae Present. Invalid: Test results are invalid due to invalid internal control. Assay was performed in duplicate. Repeat testing is suggested if clinically indicated. Performed By: #### C BC, ADIFF, ANEU, BMP, GFR #### [place] [id number] RESCVIDon 04-23-2024 Adenovirus Not detected Normal Not Detected [facility] ([place]) Comment on above: Performed By: #### C BC, ADIFF, ANEU, BMP, GFR #### [place] [id number] Bordetella Parapertussis Not detected Normal Not Detected [facility] ([place] Comment on above: Performed By: #### C BC, ADIFF, ANEU, BMP, GFR #### [place] [id number] Bordetella Pertussis Not detected Normal Not Detected [facility] ([place] Comment on above: Performed By: #### C BC, ADIFF, ANEU, BMP, GFR #### [address] [address] Chlamydophila pneumoniae Not detected Normal Not Detected [facility] ([place] Comment on above: Performed By: #### C BC, ADIFF, ANEU, BMP, GFR #### [place] [id number] Coronavirus 229E (Not COVID-19) Not detected Normal Not Detected [facility] ([place]) Comment on above: Performed By: #### C BC, ADIFF, ANEU, BMP, GFR #### [address] [address] Coronavirus HKU1 (Not COVID-19) Not detected Normal Not Detected [facility] ([place]) Comment on above: Performed By: #### C BC, ADIFF, ANEU, BMP, GFR #### [place] [address] Coronavirus NL63 (Not COVID-19) Not detected Normal Not Detected [facility] ([place]) Comment on above: Performed By: #### C BC, ADIFF, ANEU, BMP, GFR #### [place] [address] Coronavirus OC43 (Not COVID-19) Not detected Normal Not Detected [facility] ([place]) Comment on above: Performed By: #### C BC, ADIFF, ANEU, BMP, GFR #### [place] [address] Human Metapneumovirus Not detected Normal Not Detected [facility] ([place]) Comment on above: Performed By: #### C BC, ADIFF, ANEU, BMP, GFR #### [place] [address] Influenza A Not detected Normal Not Detected [facility] ([place]) Comment on above: Performed By: #### C BC, ADIFF, ANEU, BMP, GFR #### [address] [address] Influenza B Not detected Normal Not Detected [facility] ([place]) Comment on above: Performed By: #### C BC, ADIFF, ANEU, BMP, GFR #### [address] [address] Mycoplasma pneumoniae Not detected Normal Not Detected [facility] ([place]) Comment on above: Performed By: #### C BC, ADIFF, ANEU, BMP, GFR #### [place] [address] Parainfluenza 1 Not detected Normal Not Detected [facility] ([place] Comment on above: Performed By: #### C BC, ADIFF, ANEU, BMP, GFR #### [place] [id number] Parainfluenza 2 Not detected Normal Not Detected [facility] ([place] Comment on above: Performed By: #### C BC, ADIFF, ANEU, BMP, GFR #### [place] [id number] Parainfluenza 3 Not detected Normal Not Detected [facility] [place] Comment on above: Performed By: #### C BC, ADIFF, ANEU, BMP, GFR #### [place] [address] Parainfluenza 4 Not detected Normal Not Detected [facility] ([place] Comment on above: Performed By: #### C BC, ADIFF, ANEU, BMP, GFR #### [place] [address] Respiratory Syncytial Virus Not detected Normal Not Detected [facility] ([place] Comment on above: Performed By: #### C BC, ADIFF, ANEU, BMP, GFR #### [place] [address] Rhinovirus/Enteroviru s Not detected Normal Not Detected [facility] ([place] Comment on above: Performed By: #### C BC, ADIFF, ANEU, BMP, GFR #### [place] [id number] SARS-CoV-2 (COVID-19) RNA DARYA+probe Ql (Unsp spec) Not detected Normal Not Detected [facility] ([place]) Comment on above: Result Comment: This assay has been validated in the [facility] for use with nasopharyngeal specimens in [facility]. If a non-validated specimen or test collection method was used, please interpret the results with caution, especially if the test result is negative. A positive test result for COVID-19 indicates that RNA from SARS-CoV-2 was detected, and the patient is infected with the virus and presumed to be contagious. Laboratory test results should always be considered in the context of clinical observations and epidemiological data in making a final diagnosis and patient management decisions. Patient management should follow current CDC guidelines. A negative test result for this test means that SARS-CoV-2 RNA was not present in the specimen above the limit of detection. However, a negative result does not rule out COVID-19 and should not be used as the sole basis for treatment or patient management decisions. A negative result does not exclude the possibility of COVID-19. When diagnostic testing is negative, the possibility of a false negative result should be considered in the context of a patient's recent exposures and the presence of clinical signs and symptoms consistent with COVID-19. The possibility of a false negative result should especially be considered if the patient?s recent exposures or clinical presentation indicate that COVID-19 is likely, and diagnostic tests for other causes of illness (e.g., other respiratory illness) are negative. If COVID-19 is still suspected based on exposure history together with other clinical findings, re-testing should be considered by healthcare providers in consultation with public health authorities. Performed By: #### C BC, ABDIEL ANEU, BMP, GFR #### [place] [address] UAon 04-23-2024 Color (U) Dark yellow Normal [facility] ([place] Comment on above: Performed By: #### C ABDIEL CHAND ANEU, BMP, GFR #### [address] [address] Glucose (U) [Mass/Vol] Negative Normal Negative [facility] ([place] Comment on above: Performed By: #### C BC, ABDIEL ANEU, BMP, GFR #### [address] [address] Ketones Ql (U) 15 mg/dL Abnormal Negative [facility] ([place] Comment on above: Performed By: #### C BC, ADROSIE, ANEU, BMP, GFR #### [address] [address] UA Appear Clear Normal Clear [facility] ([place] Comment on above: Performed By: #### C BC, ADROSIE, ANEU, BMP, GFR #### [place] [id number] UA Blood Negative Normal Negative [facility] ([place] Comment on above: Performed By: #### C BC, ADIFF, ANEU, BMP, GFR #### [address] [address] UA Leuk Est Negative Normal Negative [facility] ([place] Comment on above: Performed By: #### C BC, ADIFF, ANEU, BMP, GFR #### [address] [address] UA Nitrite Negative Normal Negative [facility] ([place] Comment on above: Performed By: #### C BC, ADIFF, ANEU, BMP, GFR #### [place] [address] UA pH 6.0 Normal 5.0 - 8.0 [facility] ([place] Comment on above: Performed By: #### C BC, ADIFF, ANEU, BMP, GFR #### [place] [address] UA Protein 30 mg/dL Normal Negative [facility] ([place] Comment on above: Performed By: #### C BC, ADIFF, ANEU, BMP, GFR #### [place] [address] UA Spec Grav >=1.030 Abnormal 1.015-1.025 [facility] ([place] Comment on above: Performed By: #### C BC, ADIFF, ANEU, BMP, GFR #### [place] [address] UA Specimen Type Clean Catch Normal [facility] ([place] Comment on above: Performed By: #### C BC, ADIFF, ANEU, BMP, GFR #### [place] [address] UA Urobilinogen >=8.0 Abnormal 0.2-1.0 [facility] ([place] Comment on above: Performed By: #### C BC, ADIFF, ANEU, BMP, GFR #### [place] [address] Urobilinogen (U) [Mass/Vol] Negative Normal Negative [facility] ([place]) Comment on above: Performed By: #### C BC, ADIFF, ANEU, BMP, GFR #### [place] [address] [address] .Auto Diffon 04-22-2024 Basophil, Absolute 0.1 10 3/mcL Normal 0.0-0.2 [facility] ([place]) Comment on above: Performed By: #### M RSAPCR #### [address] [address] Basophils/100 WBC (Bld) 0.6 % Normal 0.0-2.5 [facility] ([place]) Comment on above: Performed By: #### M RSAPCR #### [address] [address] Eosinophil, Absolute 0.4 10 3/mcL Normal 0.0-0.4 [facility] ([place]) Comment on above: Performed By: #### M RSAPCR #### [address] [address] Eosinophils/100 WBC (Bld) 3.4 % Normal 0.0-7.0 [facility] ([place]) Comment on above: Performed By: #### M RSAPCR #### [address] [address] Lymphocyte, Absolute 0.7 10 3/mcL Low 0.8-3.9 [facility] ([place]) Comment on above: Performed By: #### M RSAPCR #### [address] [address] Lymphocytes/100 WBC (Bld) 6.6 % Low 10.0-50.0 [facility] ([place]) Comment on above: Performed By: #### M RSAPCR #### [address] [address] Monocyte, Absolute 0.9 10 3/mcL Normal 0.2-1.0 [facility] ([place]) Comment on above: Performed By: #### M RSAPCR #### [address] [address] Monocytes/100 WBC (Bld) 8.5 % Normal 1.7-13.0 [facility] [place] Comment [place] above: Performed By: #### M RSAPCR #### [address] [address] Neutrophils/100 WBC (Bld) 80.9 % High 37.0-80.0 [facility] ([place] Comment on above: Performed By: #### M RSAPCR #### [address] [address] .GFRon 04-22-2024 GFR Non- 115 ml/min/1.73sqm Normal [facility] ([place] Comment on above: Result Comment: GFR Population mean for , Non- Americans Ages 20-29 = 116 mL/min/1.73 sq.m. Ages 30-39 = 107 mL/min/1.73 sq.m. Ages 40-49 = 99 mL/min/1.73 sq.m. Ages 50-59 = 93 mL/min/1.73 sq.m. Ages 60-69 = 85 mL/min/1.73 sq.m. Ages 70+ = 75 mL/min/1.73 sq.m. Chronic Kidney Disease: Less than 60 mL/min/1.73 square meters End Stage Renal Disease: Less than 15 mL/min/1.73 square meters Performed By: #### M RSAPCR #### [address] [address] GFR 139 ml/min/1.73sqm Normal [facility] ([place] Comment on above: Result Comment: GFR Population mean for , Non- Americans Ages 20-29 = 116 mL/min/1.73 sq.m. Ages 30-39 = 107 mL/min/1.73 sq.m. Ages 40-49 = 99 mL/min/1.73 sq.m. Ages 50-59 = 93 mL/min/1.73 sq.m. Ages 60-69 = 85 mL/min/1.73 sq.m. Ages 70+ = 75 mL/min/1.73 sq.m. Chronic Kidney Disease: Less than 60 mL/min/1.73 square meters End Stage Renal Disease: Less than 15 mL/min/1.73 square meters Performed By: #### M RSAPCR #### [address] [address] .MDWon 04-22-2024 Monocyte Distribution Width 19.45 Normal 0.00-20.00 [facility] ([place] Comment on above: Result Comment: For ED adult patients suspected of sepsis, MDW<=20.0 does not rule out sepsis or risk of sepsis Performed By: #### M RSAPCR #### [place] [address] .NEUABSon 04-22-2024 Neutrophil, Absolute 8.8 10 3/mcL High 2.9-6.2 [facility] ([place] Comment on above: Performed By: #### M RSAPCR #### [place] [address] BMPon 04-22-2024 BUN/Creatinine Ratio 33 ratio High 7-27 [facility] [place] Comment on above: Performed By: #### M RSAPCR #### [place] [address] Calcium [Mass/Vol] 8.9 mg/dL Normal 8.4-10.2 [facility] ([place] Comment on above: Performed By: #### M RSAPCR #### [place] [address] Chloride [Moles/Vol] 106 mmol/L Normal 98-107 [facility] [place] Comment on above: Performed By: #### M RSAPCR #### [place] [phone] CO2 [Moles/Vol] 30 mmol/L Normal 23-31 [facility] ([place] Comment on above: Performed By: #### M RSAPCR #### [place] [phone] Creatinine [Mass/Vol] 0.67 mg/dL Low 0.70-1.30 [facility] ([place] Comment on above: Performed By: #### M RSAPCR #### [place] [address] Electrolyte Balance 9.0 mEq/L Normal 4.0-15.0 [facility] ([place] Comment on above: Performed By: #### M RSAPCR #### [address] [address] Glucose [Mass/Vol] 111 mg/dL High 83-110 [facility] ([place] Comment on above: Performed By: #### M RSAPCR #### [address] [address] Potassium [Moles/Vol] 3.9 mmol/L Normal 3.5-5.1 [facility] ([place] Comment on above: Performed By: #### M RSAPCR #### [address] [address] Sodium [Moles/Vol] 145 mmol/L Normal 136-145 [facility] ([place] Comment on above: Performed By: #### M RSAPCR #### [place] [phone] Urea nitrogen [Mass/Vol] 22 mg/dL High 7-18 [facility] ([place] Comment on above: Performed By: #### M RSAPCR #### [address] [address] CBCon 04-22-2024 Erythrocyte distribution width (RBC) [Ratio] 13.6 % Normal 11.5-14.5 [facility] ([place] Comment on above: Performed By: #### M RSAPCR #### [address] [address] Hematocrit (Bld) [Volume fraction] 42.5 % Normal 42.0-52.0 [facility] [place] Comment on above: Performed By: #### M RSAPCR #### [address] [address] Hgb 14.8 G/dL Normal 14.0-18.0 [facility] ([place] Comment on above: Performed By: #### M RSAPCR #### [address] [address] MCH (RBC) [Entitic mass] 32.9 pg High 27.0-31.2 [facility] [place] Comment on above: Performed By: #### M RSAPCR #### [place] [address] MCHC 34.7 G/dL Normal 31.8-35.4 [facility] [place] Comment on above: Performed By: #### M RSAPCR #### [place] [address] MCV (RBC) [Entitic vol] 94.8 fL High 80.0-94.0 [facility] [place] Comment on above: Performed By: #### M RSAPCR #### [place] [address] Platelet 223 10 3/mcL Normal 130-400 [facility] ([place] Comment on above: Performed By: #### M RSAPCR #### [place] [address] Platelet mean volume (Bld) [Entitic vol] 7.3 fL Low 7.4-10.4 [facility] [place] Comment on above: Performed By: #### M RSAPCR #### [place] [address] RBC 4.49 10 6/mcL Normal 4.04-6.13 [facility] [place] Comment on above: Performed By: #### M RSAPCR #### [place] [address] WBC 10.8 10 3/mcL Normal 4.6-10.8 [facility] [place] Comment on above: Performed By: #### M RSAPCR #### [place] [address] CVFLURVon 04-22-2024 FLU A PCR Negative Normal Negative [facility] [place] Comment on above: Performed By: #### M RSAPCR #### [place] [address] FLU B PCR Negative Normal Negative [facility] [place] Comment on above: Performed By: #### M RSAPCR #### [place] [address] RSV PCR Negative Normal Negative [facility] ([place] Comment on above: Performed By: #### M RSAPCR #### [address] [address] SARS-CoV-2 (COVID-19) RNA DAYRA+probe Ql (Unsp spec) Negative Normal Negative [facility] ([place] Comment on above: Result Comment: Resu lts from the Xpert Xpress CoV-2/Flu/RSV plus test should be correlated with the clinical history, epidemiological data, and other data available to the clinical evaluating the patient. Performance of the Xpert Xpress CoV-2/Flu/RSV plus test has only been established in nasopharyngeal swab specimen. Erroneous test results might occur from improper specimen collection, failure to follow the recommended sample collection, handling and storage procedures, technical error, or sample mix-up. False negative results may occur if a virus is present at a level below the analytical limit of detection. Viral nucleic acid may persist in vivo, independent of virus viability. Detection of analyte target(s) does not imply that the corresponding virus(es) are infectious or are the causative agents for clinical symptoms. Recent patient exposure to FluMist or other live attenuated influenza vaccines may cause inaccurate positive results. Performed By: #### M RSAPCR #### [address] [address] LABORATORYOrdered By: Leida Combs on 04-22-2024 M. pneumoniae IgM IA Ql (S) Positive 9 *ABN* (04/22/24 10:09 PM) Invalid Interpretation Code MILLER P[place]leton Viro/Sero SS Comment on above: Interpretive Data: I NTERPRETATION OF MYCOPLASMA IgM: Negative: IgM to M. pneumoniae Absent, or at levels below the assay limit of detection. Positive: IgM to M. pneumoniae Present. Invalid: Test results are invalid due to invalid internal control. Assay was performed in duplicate. Repeat testing is suggested if clinically indicated. LABORATORYOrdered By: Graciela Soliz on 04-22-2024 FLUAV RNA DARYA+probe Ql (Resp) Negative (04/22/24 6:28 PM) Normal Negative AO Auto Urine SS FLUBV RNA DARYA+probe Ql (Resp) Negative (04/22/24 6:28 PM) Normal Negative AO Auto Urine SS RSV RNA DARYA+probe Ql (Resp) Negative (04/22/24 6:28 PM) Normal Negative AO Auto Urine SS SARS-CoV-2 (COVID-19) RNA DARYA+probe Ql (Resp) Negative 8 (04/22/24 6:28 PM) Normal Negative AO Auto Urine SS Comment on above: Interpretive Data: R esults from the Xpert Xpress CoV-2/Flu/RSV plus test should be correlated with the clinical history, epidemiological data, and other data available to the clinical evaluating the patient. Performance of the Xpert Xpress CoV-2/Flu/RSV plus test has only been established in nasopharyngeal swab specimen. Erroneous test results might occur from improper specimen collection, failure to follow the recommended sample collection, handling and storage procedures, technical error, or sample mix-up. False negative results may occur if a virus is present at a level below the analytical limit of detection. Viral nucleic acid may persist in vivo, independent of virus viability. Detection of analyte target(s) does not imply that the corresponding virus(es) are infectious or are the causative agents for clinical symptoms. Recent patient exposure to FluMist or other live attenuated influenza vaccines may cause inaccurate positive results. LABORATORYOrdered By: SYSTEM SYSTEM on 04-22-2024 Monocyte distribution width Auto (Bld) [Entitic vol] 19.45 1 Normal 0.00 - 20.00 AO Workflow SS Comment on above: Result Comment: For ED adult patients suspected of sepsis, MDW<=20.0 does not rule out sepsis or risk of sepsis Natriuretic peptide.B prohormone N-Terminal [Mass/Vol] 525 pg/mL High 0 - 450 pg/mL AO ADM SS Comment on above: Interpretive Data: N T-proBNP results of less than 300 pg/mL effectively rules out acute congestive heart failure with 99% negative predictive value. Troponin I.cardiac DL <= 0.01 ng/mL [Mass/Vol] 6 ng/L Normal 0 - 76 ng/L AO ADM SS Comment on above: Interpretive Data: H igh Sensitive Troponin I Reference Ranges: Female: 0-51 ng/L Male: 0-76 ng/L Testing performed on [employer] using a homogeneous sandwich chemiluminescent immunoassay based on [employer] technology. No Panel Informationon 04-22 Legionella Urine Ag Presumptive negative for L. pneumophila serogroup 1 antigen in urine, suggesting no recent or current infection. Legionnaire's disease cannot be ruled out since other serogroups and species may also cause disease. [facility] Streptococcus Pneumoniae Urine Antig Presumptive negative for pneumococcal pneumonia, suggesting no current or recent pneumococcal infection. Infection due to Strep pneumoniae cannot be ruled out since the antigen present in the sample may be below the detection limit of the test. [facility] Comment on above: This test has not be en evaluated on patients taking antibiotics for greater than 24 hours or on patients who have recently completed an antibiotic regimen. The accuracy of this test has not been proven in young children. PBNPon 04-22-2024 Natriuretic peptide B (Bld) [Mass/Vol] 525 pg/mL High 0-450 [facility] ([place] Comment on above: Result Comment: NT-p roBNP results of less than 300 pg/mL effectively rules out acute congestive heart failure with 99% negative predictive value. Performed By: #### C BC, ADIFF, ANEU, FERR, FE, CMP, GFR, LIPID #### [address] [address] #### B12 #### [place] [address] TROPHSon 04-22-2024 High Sensitivity Troponin I 6 ng/L Normal 0-76 [facility] ([place] Comment on above: Result Comment: High Sensitive Troponin I Reference Ranges: Female: 0-51 ng/L Male: 0-76 ng/L Testing performed on [employer] using a homogeneous sandwich chemiluminescent immunoassay based on [employer] technology. Performed By: #### C BC, ADIFF, ANEU, FERR, FE, CMP, GFR, LIPID #### [address] [address] #### B12 #### [place] [address] XR CHEST 1 VIEWon 04-22-2024 XR CHEST 1 VIEW ORIGINAL EXAMINATION: ONE XRAY VIEW OF THE CHEST04/22/2024 7:55 pm COMPARISON: Chest radiograph 09/30/2018 HISTORY: ORDERING SYSTEM PROVIDED HISTORY: Reason for Exam: Low oxygen, wheezing. chest pain FINDINGS: Stable cardiomediastinal silhouette. Patchy retrocardiac and left upper lung opacities. Low lung volumes with bronchovascular crowding bilaterally. No pneumothorax or large pleural effusion. No acute osseous abnormalities. IMPRESSION: Hypoventilatory changes. Retrocardiac and left upper lung patchy opacities may represent a developing infectious/inflammato ry process such as pneumonia. Follow-up to resolution is recommended. I have personally reviewed the images and agree with the resident's findings and interpretation. Interpreted by: Ephraim Quinones Preliminary Report By: Diomedes Felix Electronically signed By Ephraim Quinones Dictated Date: 04/22/2024 8:10:38 PM Prelim Date: 04/22/2024 8:17:13 PM Sign Date: 04/22/2024 10:33:35 PM Ordering Provider: ANTOINE Smallwood [facility] ([place]) XR SPINE LUMBAR AP/LATon XR SPINE LUMBAR AP/LAT ORIGINAL EXAMINATION: 3 XRAY VIEWS OF THE LUMBAR SPINE COMPARISON: CT lumbar spine 08/11/2023, MR lumbar spine 11/18/2023 HISTORY: ORDERING SYSTEM PROVIDED HISTORY: Reason for Exam: Pt lifted a case of water and has been in bed for 4 days. Hx of a compression fx at T11 from a fall. low back pain FINDINGS: 5 lumbar-type vertebral bodies are visualized. Compression deformity of the L1 vertebral body, which appears new from prior MR. Remote T11 compression deformity with vertebral cement augmentation. No significant spondylolisthesis. [id number] multilevel degenerative changes with intervertebral disc height loss, endplate osteophyte formation, and facet arthrosis. The visualized bony pelvis is unremarkable. Pelvic phleboliths. Scattered vascular calcifications. IMPRESSION: Compression deformity of the L1 vertebral body, of indeterminate age, however new from prior 11/18/2023 exam. Remote T11 compression deformity status post augmentation. I have personally reviewed the images and agree with the resident's findings and interpretation. Interpreted by: Ephraim Quinones Preliminary Report By: Diomedes Felxi Electronically signed By Ephraim Quinones Dictated Date: 04/22/2024 8:00:23 PM Prelim Date: 04/22/2024 8:05:51 PM Sign Date: 04/22/2024 10:32:15 PM Ordering Provider: ANTOINE Smallwood [facility] ([place]) B12on 02-20-2024 Cobalamin (Vitamin B12) [Mass/Vol] 696 pg/mL Normal 211-911 [facility] ([place] Comment on above: Performed By: #### C BC, ADIFF, ANEU, BMP, GFR #### [address] [address] .Auto Diffon 02-19-2024 Basophil, Absolute 0.0 10 3/mcL Normal 0.0-0.2 [facility] ([place] Comment on above: Performed By: #### C BC, ADIFF, ANEU, FERR, FE, CMP, GFR, LIPID #### [place] [address] #### B12 #### [address] [address] Basophils/100 WBC (Bld) 0.5 % Normal 0.0-2.5 [facility] ([place] Comment on above: Performed By: #### C BC, ADIFF, ANEU, FERR, FE, CMP, GFR, LIPID #### [place] [address] #### B12 #### [address] [address] Eosinophil, Absolute 0.2 10 3/mcL Normal 0.0-0.4 [facility] ([place] Comment on above: Performed By: #### C BC, ADIFF, ANEU, FERR, FE, CMP, GFR, LIPID #### [place] [address] #### B12 #### [address] [address] Eosinophils/100 WBC (Bld) 3.2 % Normal 0.0-7.0 [facility] ([place] Comment on above: Performed By: #### C BC, ADIFF, ANEU, FERR, FE, CMP, GFR, LIPID #### [place] [address] #### B12 #### [address] [address] Lymphocyte, Absolute 0.9 10 3/mcL Normal 0.8-3.9 [facility] ([place] Comment on above: Performed By: #### C BC, ADIFF, ANEU, FERR, FE, CMP, GFR, LIPID #### [address] [address] #### B12 #### [address] [address] Lymphocytes/100 WBC (Bld) 12.6 % Normal 10.0-50.0 [facility] ([place] Comment on above: Performed By: #### C BC, ADIFF, ANEU, FERR, FE, CMP, GFR, LIPID #### [place] [address] #### B12 #### [address] [address] Monocyte, Absolute 0.8 10 3/mcL Normal 0.2-1.0 [facility] ([place]) Comment on above: Performed By: #### C BC, ADIFF, ANEU, FERR, FE, CMP, GFR, LIPID #### [place] [address] #### B12 #### [address] [address] Monocytes/100 WBC (Bld) 10.9 % Normal 1.7-13.0 [facility] ([place] Comment on above: Performed By: #### C BC, ADIFF, ANEU, FERR, FE, CMP, GFR, LIPID #### [place] [address] #### B12 #### [address] [address] Neutrophils/100 WBC (Bld) 72.8 % Normal 37.0-80.0 [facility] ([place]) Comment on above: Performed By: #### C BC, ADIFF, ANEU, FERR, FE, CMP, GFR, LIPID #### [place] [address] #### B12 #### [address] [address] .GFRon 02-19-2024 GFR 99 ml/min/1.73sqm Normal [facility] ([place] Comment on above: Result Comment: GFR Population mean for , Non- Americans Ages 20-29 = 116 mL/min/1.73 sq.m. Ages 30-39 = 107 mL/min/1.73 sq.m. Ages 40-49 = 99 mL/min/1.73 sq.m. Ages 50-59 = 93 mL/min/1.73 sq.m. Ages 60-69 = 85 mL/min/1.73 sq.m. Ages 70+ = 75 mL/min/1.73 sq.m. Chronic Kidney Disease: Less than 60 mL/min/1.73 square meters End Stage Renal Disease: Less than 15 mL/min/1.73 square meters Performed By: #### C BC, ADIFF, ANEU, BMP, GFR #### [address] [address] GFR Non- 82 ml/min/1.73sqm Normal [facility] ([place] Comment on above: Result Comment: GFR Population mean for , Non- Americans Ages 20-29 = 116 mL/min/1.73 sq.m. Ages 30-39 = 107 mL/min/1.73 sq.m. Ages 40-49 = 99 mL/min/1.73 sq.m. Ages 50-59 = 93 mL/min/1.73 sq.m. Ages 60-69 = 85 mL/min/1.73 sq.m. Ages 70+ = 75 mL/min/1.73 sq.m. Chronic Kidney Disease: Less than 60 mL/min/1.73 square meters End Stage Renal Disease: Less than 15 mL/min/1.73 square meters Performed By: #### C BC, ADIFF, ANEU, BMP, GFR #### [address] [address] .NEUABSon 02-19-2024 Neutrophil, Absolute 5.1 10 3/mcL Normal 2.9-6.2 [facility] ([place] Comment on above: Performed By: #### C BC, ADIFF, ANEU, FERR, FE, CMP, GFR, LIPID #### [address] [address] #### B12 #### [place] [address] CBCon 02-19-2024 Erythrocyte distribution width (RBC) [Ratio] 14.3 % Normal 11.5-14.5 [facility] ([place] Comment on above: Performed By: #### C BC, ADIFF, ANEU, FERR, FE, CMP, GFR, LIPID #### [place] [address] #### B12 #### [place] [address] Hematocrit (Bld) [Volume fraction] 37.8 % Low 42.0-52.0 [facility] ([place] Comment on above: Performed By: #### C BC, ADIFF, ANEU, FERR, FE, CMP, GFR, LIPID #### [place] [address] #### B12 #### [place] [address] Hgb 13.1 G/dL Low 14.0-18.0 [facility] ([place] Comment on above: Performed By: #### C BC, ADIFF, ANEU, FERR, FE, CMP, GFR, LIPID #### [place] [address] #### B12 #### [place] [address] MCH (RBC) [Entitic mass] 32.6 pg High 27.0-31.2 [facility] ([place] Comment on above: Performed By: #### C BC, ADIFF, ANEU, FERR, FE, CMP, GFR, LIPID #### [place] [address] #### B12 #### [place] [address] MCHC 34.7 G/dL Normal 31.8-35.4 [facility] ([place] Comment on above: Performed By: #### C BC, ADIFF, ANEU, FERR, FE, CMP, GFR, LIPID #### [place] [address] #### B12 #### [place] [address] MCV (RBC) [Entitic vol] 94.1 fL High 80.0-94.0 [facility] ([place] Comment on above: Performed By: #### C BC, ADIFF, ANEU, FERR, FE, CMP, GFR, LIPID #### [place] [address] #### B12 #### [place] [address] Platelet 233 10 3/mcL Normal 130-400 [facility] ([place] Comment on above: Performed By: #### C BC, ADIFF, ANEU, FERR, FE, CMP, GFR, LIPID #### [place] [address] #### B12 #### [place] [address] Platelet mean volume (Bld) [Entitic vol] 6.9 fL Low 7.4-10.4 [facility] ([place] Comment on above: Performed By: #### C BC, ADIFF, ANEU, FERR, FE, CMP, GFR, LIPID #### [place] [address] #### B12 #### [place] [address] RBC 4.02 10 6/mcL Low 4.04-6.13 [facility] ([place] Comment on above: Performed By: #### C BC, ADIFF, ANEU, FERR, FE, CMP, GFR, LIPID #### [place] [address] #### B12 #### [place] [address] WBC 7.0 10 3/mcL Normal 4.6-10.8 [facility] ([place] Comment on above: Performed By: #### C BC, ADIFF, ANEU, FERR, FE, CMP, GFR, LIPID #### [place] [address] #### B12 #### [address], [place] [id number] [place] [address] 02-19-2024 Albumin Level 3.6 G/dL Normal 3.4-4.8 [facility] ([place] Comment on above: Performed By: #### C BC, ADIFF, ANEU, BMP, GFR #### [address] [address] Albumin/Globulin [Mass ratio] 1.2 {ratio} Normal 1.1-2.5 [facility] ([place]) Comment on above: Performed By: #### C BC, ADIFF, ANEU, BMP, GFR #### [address] [address] ALP [Catalytic activity/Vol] 102 U/L Normal 40-135 [facility] ([place]) Comment on above: Performed By: #### C BC, ADIFF, ANEU, BMP, GFR #### [address] [address] ALT [Catalytic activity/Vol] 24 U/L Normal 16-63 [facility] ([place] Comment on above: Performed By: #### C BC, ADIFF, ANEU, BMP, GFR #### [address] [address] AST [Catalytic activity/Vol] 14 U/L Normal 10-40 [facility] ([place] Comment on above: Performed By: #### C BC, ADIFF, ANEU, BMP, GFR #### [address] [address] Bili Total 0.5 mg/dL Normal 0.2-1.0 [facility] ([place]) Comment on above: Result Comment: Use of this assay is not recommended for patients undergoing treatment with eltrombopag due to the potential for falsely elevated results. Performed By: #### C BC, ADIFF, ANEU, BMP, GFR #### [address] [address] BUN/Creatinine Ratio 23 ratio Normal 7-27 [facility] ([place] Comment on above: Performed By: #### C BC, ADIFF, ANEU, BMP, GFR #### [address] [address] Calcium [Mass/Vol] 8.7 mg/dL Normal 8.4-10.2 [facility] ([place] Comment on above: Performed By: #### C BC, ADIFF, ANEU, BMP, GFR #### [address] [address] Chloride [Moles/Vol] 104 mmol/L Normal 98-107 [facility] [place] Comment on above: Performed By: #### C BC, ADIFF, ANEU, BMP, GFR #### [address] [address] CO2 [Moles/Vol] 29 mmol/L Normal 23-31 [facility] ([place] Comment on above: Performed By: #### C BC, ADIFF, ANEU, BMP, GFR #### [address] [address] Creatinine [Mass/Vol] 0.90 mg/dL Normal 0.70-1.30 [facility] ([place] Comment on above: Performed By: #### C BC, ADIFF, ANEU, BMP, GFR #### [address] [address] Electrolyte Balance 10.0 mEq/L Normal 4.0-15.0 [facility] ([place]) Comment on above: Performed By: #### C BC, ADIFF, ANEU, BMP, GFR #### [address] [address] Globulin 2.9 G/dL Normal [facility] ([place] Comment on above: Performed By: #### C BC, ADIFF, ANEU, BMP, GFR #### [address] [address] Glucose [Mass/Vol] 105 mg/dL Normal 83-110 [facility] ([place] Comment on above: Performed By: #### C BC, ADIFF, ANEU, BMP, GFR #### [address] [address] Potassium [Moles/Vol] 4.1 mmol/L Normal 3.5-5.1 [facility] ([place] Comment on above: Performed By: #### C BC, ADIFF, ANEU, BMP, GFR #### [address] [address] Sodium [Moles/Vol] 143 mmol/L Normal 136-145 [facility] [place] Comment on above: Performed By: #### C BC, ADIFF, ANEU, BMP, GFR #### [address] [address] Total Protein 6.5 G/dL Normal 6.4-8.2 [facility] ([place] Comment on above: Performed By: #### C BC, ADIFF, ANEU, BMP, GFR #### [address] [address] Urea nitrogen [Mass/Vol] 21 mg/dL High 7-18 [facility] ([place] Comment on above: Performed By: #### C BC, ADIFF, ANEU, BMP, GFR #### [address] [address] FEon 02-19-2024 Iron [Mass/Vol] 79 ug/dL Normal 65-175 [facility] ([place] Comment on above: Performed By: #### C BC, ADIFF, ANEU, BMP, GFR #### [address] [address] Saturnino 02-19-2024 Ferritin [Mass/Vol] 511.0 ng/mL High 26.0-388.0 [facility] [place] Comment on above: Performed By: #### C BC, ADIFF, ANEU, FERR, FE, CMP, GFR, LIPID #### [address] [address] #### B12 #### [address] [address] LIPIDon 02-19-2024 Cholesterol [Mass/Vol] 184 mg/dL Normal 0-200 [facility] ([place] Comment on above: Result Comment: Chol esterol Reference Interval: Less than 200 Desirable 200-239 Borderline high risk 240 and above High risk Performed By: #### C BC, ADIFF, ANEU, BMP, GFR #### [place] [place], [place] [address] Cholesterol in HDL [Mass/Vol] 44 mg/dL Normal 40-60 [facility] ([place] Comment on above: Performed By: #### C BC, ADIFF, ANEU, BMP, GFR #### [address] [place], [place] [address] Cholesterol in LDL [Mass/Vol] 125 mg/dL Normal 0-130 [facility] ([place] Comment on above: Performed By: #### C BC, ADIFF, ANEU, BMP, GFR #### [address] [address] Triglyceride [Mass/Vol] 75 mg/dL Normal 0-150 [facility] [place] Comment on above: Result Comment: Trig lyceride Reference Interval: Less than 150 Normal 150-199 Borderline high risk 200-499 High risk 500 or higher Very high risk Performed By: #### C BC, ADIFF, ANEU, BMP, GFR #### [address] [address] Inital Evaluation (1) - PTon 01-13-2024 Inital Evaluation (1) - PT [facility] [address] [place] [address] [address] [place] [address] / REHABILITATION SERVICES INITIAL EVALUATION MR#: [id number] Acct: [id number] Name: NANCY SY Rep #: [id number] : 1945 78 From: Mark Fuentes PT, Cert. MD Cross, OCS Referring Dr.: Dr. Brody Pate DO Status: RE G RCR Insurance: MEDICARE PART A B [facility] Patient's Visit Information Visit Information Visit Information: NANCY SY is a 78 year old M referred to Physical Therapy by Dr. Brody Pate DO with a diagnosis of WEDGE COMPRESSION FRACTURE T11-T12 VERTEBRA, DDD LUMBAR. Date of Evaluation: 01/13/24 Physical Therapist: Mark Fuentes PT, Cert T, OCS Visit Plan Frequency: 2-3x /Week Duration: 4-6 Weeks Plan: S/P THORACIC KYPHOPLASTY T11-12 5 5 WEEKS AGO PRECAUTION: OSTEOPOROSISAND PT INTERVENTIONS DLS, POSTURAL EX'S , LE FLEXABILITY , BALANCE PROGRAM , FUNCTIONAL STRENGTHENING AND MODALITIES NEEDED Subjective Subjective: This 78 y/o male presents to physical therapy with lumbar pain due to compression fracture. Patient fell Dec 3 at home . Patient fell forward . Patient to ER at [facility] did x-rays lumbar DDD. Patient pain worse thus seen DR Pate did x-rays thoracic spine and MRI showed compression fracture T11-T12. Patient had kyphoplasty T11-T12 5 weeks . Patient continue to have pain lumbar and 2weeks ago had epidural injection lumbar. Patient located symmetrical lumbar. Aggravating factors walk/standing 10mins ,lifting bending affect housework tasks and ADLS. Alleviating factors sitting and rest. Described ache . Coughing/sneezing-. Bowel/bladder -Denies paresthesia/tingling. Patient is good because laying flat. No prior PT. Medication Hydrocodone Patient condition affects QOL and function. Patient goals to decrease pain. 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 PALPATION: unremarkable FLEXABILITY: severe hamstring tightness MMT: quads/hams 4/5 ,hip flexion 4/5 ,hip abduction 4-/5 ,ankle 4/5 LUMBAR ROM: flexion mod loss ,extension mod/severe loss ,side glides mod loss Special Tests L/S Slump test left side: Negative L/S Slump test right side: Negative L/S Left Straight Leg Raise: Negative L/S Right Straight Leg Raise: Negative Balance/Special Test Scores Functional Gait Assessment Score: 12 % Disability: 60.0000 Oswestry Low Back Score: 33 Goals Goal 1:: Patient to be I with HEP for back Goal Time Frame: 4-6 Weeks Goal 2:: Patient to improve 50% function and less pain to improve ADLS Goal Time Frame: 4-6 Weeks Goal 3:: Patient to improve back oswestry score by 5 points to improve QOL and function. Goal Time Frame: 4-6 Weeks Goal 4:: Patient to be improve lumbar ROM for function of recovery to put on shoes. Goal Time Frame: 4-6 Weeks Goal 5:: Patient to improve functional gait assessment score by 5 points to improve QOL and decrease risk of falls Goal Time Frame: 4-6 Weeks Rehabilitation Potential Physical Therapy Diagnosis: Patient had compression fracture from T11-T12 with kyphoplasty 5 weeks ago with weakness unsteady with gait and lumbar pain with walking and standing , < 10mins impairs function and ADL's thus benefit from skilled PT Rehabilitation Potential: Good Anticipated Interventions Patient/Client Instruction: Educate patient on: Condition and Plan of Care For the Purpose of:: To decrease pain, To increase ROM, To improve muscle performance and motor function, To improve ability to perform ADL's, To increase tolerance to activity/condition/po sition, To improve ability of physical actions for home/community/work/l eisure, To improve health of tissue, To decrease soft tissue restriction and To increase flexibility/ROM Therapeutic Exercise to Include: Strength training, Endurance training, Body mechanics, Postural training, Flexibilty training and Dynamic Lumbar Stabilization For the Purpose of:: To decrease pain, To increase ROM, To improve muscle performance and motor function, To improve ability to perform ADL's, To increase tolerance to activity/condition/po sition, To improve ability of physical actions for home/community/work/l eisure, To improve health of tissue, To decrease soft tissue restriction, To increase flexibility/ROM, To reduce risk of recurrence and To improve tolerance to ADL's TENS: Yes IF ES: Yes Cryotherapy (ice pack, ice massage): Yes Thermo therapy (hot pack): Yes Ultrasound (thermal/non thermal): Yes For the Purpose of:: To decrease pain, To improve nutrient delivery to tissue, To increase oxygenation perfusion, To improve health of tissue and To dec (more content not included)... Normal [facility] CD138 (add)on 12-17-2023 CD138 (add) Patient Age/Sex Location Account Attending Physician NANCY SY 78/M LABSPEC [id number] Dr. Brody Pate DO Specimen: [id number] Received: 12/19/23 Status: [facility] Num: [id number] Spec Type: IMMUNO Subm Dr: Dr. Brody Pate DO PHYSICIAN INSTITUTION [place] [address] SPECIMEN INFORMATION: Tissue Source: T-11 kyphoplasty Clinical Info: Wedge compression fracture, T11 Specimen Number: [id number] CPT code: 98617,75378i73 METHODOLOGY: Deparaffinized sections of prefer/formalin-fixed tissue or PAP/DQ stained slides are incubated with monoclonal/polyclonal antibodies/oligonucle otide probes. Localization is made via biotin free immunoperoxidase method. Appropriate controls are performed and reacted as expected. Results on target cell population are indicated in the following table: RESULTS: ANTIBODY / CLONE RESULT AE1-3 (AE1/AE3/PCK26) negative CD3 (PS1) positive CD5 (SP10) positive CD20 (L26) positive, a few cells CD45 (RP2/18) positive CD79a (11E3) positive CD138 (B-A38) positive Hanahan (polyclonal) positive Lambda (polyclonal) positive P53 (DO-7) negative (null pattern) Ki-67 (30-9) positive, moderate These tests were developed and their performance characteristics determined by [facility]. They may not have been cleared or approved by the U.S. Food and Drug Administration. The FDA has determined that such clearance or approval is not necessary. The above immunohistochemical/d ualISH markers are ordered by Dr. Trino Watts and reviewed by the Pathologist. INTERPRETATION: Thoracic 11 vertebral bone: A piece of bone with reactive changes. Plasma cells, polytypic in nature. Negative for malignancy. SJ/mr 12/22/23 Signed (signature on file) Dr. Jimenez Blackwood MD 12/22/23 0928 -------- Normal [facility] Comment on above: Performed By: #### P CD138. #### [facility] [address] [place], [address] Decalcification bone/plaqueo n 12-17-2023 Decalcification bone/plaque Patient Age/Sex Location Account Attending Physician NANCY SY 78/M LABSPEC [id number] Dr. Brody Pate DO Specimen: [id number] Received: 12/17/23 Status: [facility] Num: [id number] Spec Type: Bone Subm Dr: Dr. Brody Pate DO HEADER OPERATION: Thoracic 11 kyphoplasty PRE-OP DIAGNOSIS: Wedge compression fracture, T11 TISSUE SUBMITTED: Thoracic 11 vertebral body bone -------- MICROSCOPIC DIAGNOSIS T 11 vertebral body, core biopsy: Chronic repair to reactive change. Polytypic (benign) plasma cell population. See comment. /mr 12/19/2023 COMMENT Findings are consistent with fracture site. Clinical correlation is suggested. Immunohistochemistry ([id number]) supports the above diagnosis. Case has been reviewed in consultation with Dr. Blackwood who concurs with the above diagnosis. IDC:[email or web address] MICROSCOPIC DESCRIPTION Slides are reviewed. GROSS DESCRIPTION Received in fixative is one container labeled with the patient's name and designated Vertebral body T11. The specimen consists of an elongated piece of bone measuring 1.0cm in length and 0.1cm in diameter. The entire specimen is submitted in one cassette after decalcification. / 12/18/2023 TC:3 CPT:36662,38599 -------- Patient Age/Sex Location Account Attending Physician -------- NANCY SY 78/M LABSPEC [id number] Dr. Brody Pate, DO -------- Signed (signature on file) Dr. Jimenez Blackwood MD 12/22/23 0923 -------- Normal [facility] Comment on above: Performed By: #### P DEC #### [facility] [address] [place] [address] [address] [place], [place], [id number] MRI SPINE LUMBAR W/O CONTRAS Ton 11-18-2023 MRI SPINE LUMBAR W/O CONTRAST ORIGINAL HISTORY: Fall in August, low back pain COMPARISON: CT 11 August 2023 TECHNIQUE: 1. Sagittal T1-weighted images. 2. Sagittal T2-weighted images with and without fat saturation. 3. Axial T1-weighted images. 4. Axial T2-weighted images. FINDINGS: There are 5 lumbar type vertebral bodies for the purpose of this dictation. There is mild grade 1 anterolisthesis at L5-S1. The lumbar vertebral bodies are intact. There is a compression deformity at T11, with greater than 25% loss of anterior vertebral body height. There is mild edema in the T11 body. There is possibly a minimal compression deformity along the superior endplate of T12. There is disc desiccation and disc space narrowing in the lumbar spine, most prominently at L4-L5. The tip of the conus is at the L2 level. There is no abnormal signal within the visualized spinal cord. The specific findings by level: L2-L3: There is mild facet and ligamentum flavum hypertrophy. L3-L4: There is a mild posterior disc bulge. There is mild facet ligamentum flavum hypertrophy. L4-L5: There is a mild posterior disc bulge with a mild superimposed central protrusion. There is mild facet and ligamentum flavum hypertrophy. There is mild stenosis. L5-S1: There is a mild posterior disc bulge/pseudo bulge with a small superimposed central extrusion. There is mild to moderate left and mild right facet hypertrophy. 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 Milder degenerative changes at the remaining lumbar levels, without significant stenosis. T11 compression fracture, likely acute to subacute, with edema in the T11 body. There is questionable slight involvement of the superior endplate of T12 is well. This area is not covered on the comparison CT. Interpreted by: Mark Narvaez MD Preliminary Report By: Mark Narvaez MD Electronically signed By Mark Narvaez MD Dictated Date: 11/18/2023 3:51:11 PM Prelim Date: 11/18/2023 3:56:09 PM Sign Date: 11/18/2023 3:56:09 PM Ordering Provider: KATHERINE Smallwood [facility] ([place]) .Auto Diffon 10-20-2023 Basophil, Absolute 0.0 10 3/mcL Normal 0.0-0.2 [facility] ([place] Comment on above: Performed By: #### C ABDIEL CHAND ANEU, BMP, GFR #### [address] [address] Basophils/100 WBC (Bld) 0.6 % Normal 0.0-2.5 [facility] ([place]) Comment on above: Performed By: #### C ABDIEL CHAND ANEU, BMP, GFR #### [address] [address] Eosinophil, Absolute 0.5 10 3/mcL High 0.0-0.4 [facility] ([place]) Comment on above: Performed By: #### C BC, ADIFF, ANEU, BMP, GFR #### [address] [address] Eosinophils/100 WBC (Bld) 7.2 % High 0.0-7.0 [facility] ([place] Comment on above: Performed By: #### C BC, ADIFF, ANEU, BMP, GFR #### [address] [address] Lymphocyte, Absolute 1.0 10 3/mcL Normal 0.8-3.9 [facility] ([place] Comment on above: Performed By: #### C BC, ADIFF, ANEU, BMP, GFR #### [address] [address] Lymphocytes/100 WBC (Bld) 14.0 % Normal 10.0-50.0 [facility] ([place] Comment on above: Performed By: #### C BC, ADIFF, ANEU, BMP, GFR #### [address] [address] Monocyte, Absolute 0.7 10 3/mcL Normal 0.2-1.0 [facility] ([place] Comment on above: Performed By: #### C BC, ADIFF, ANEU, BMP, GFR #### [address] [address] Monocytes/100 WBC (Bld) 9.8 % Normal 1.7-13.0 [facility] ([place] Comment on above: Performed By: #### C BC, ADIFF, ANEU, BMP, GFR #### [address] [address] Neutrophils/100 WBC (Bld) 68.4 % Normal 37.0-80.0 [facility] ([place] Comment on above: Performed By: #### C BC, ADIFF, ANEU, BMP, GFR #### [address] [address] .GFRon 10-20-2023 GFR 88 ml/min/1.73sqm Normal [facility] ([place]) Comment on above: Result Comment: GFR Population mean for , Non- Americans Ages 20-29 = 116 mL/min/1.73 sq.m. Ages 30-39 = 107 mL/min/1.73 sq.m. Ages 40-49 = 99 mL/min/1.73 sq.m. Ages 50-59 = 93 mL/min/1.73 sq.m. Ages 60-69 = 85 mL/min/1.73 sq.m. Ages 70+ = 75 mL/min/1.73 sq.m. Chronic Kidney Disease: Less than 60 mL/min/1.73 square meters End Stage Renal Disease: Less than 15 mL/min/1.73 square meters Performed By: #### C BC, ADIFF, ANEU, BMP, GFR #### [address] [address] GFR Non- 72 ml/min/1.73sqm Normal [facility] ([place] Comment on above: Result Comment: GFR Population mean for , Non- Americans Ages 20-29 = 116 mL/min/1.73 sq.m. Ages 30-39 = 107 mL/min/1.73 sq.m. Ages 40-49 = 99 mL/min/1.73 sq.m. Ages 50-59 = 93 mL/min/1.73 sq.m. Ages 60-69 = 85 mL/min/1.73 sq.m. Ages 70+ = 75 mL/min/1.73 sq.m. Chronic Kidney Disease: Less than 60 mL/min/1.73 square meters End Stage Renal Disease: Less than 15 mL/min/1.73 square meters Performed By: #### C BC, ADIFF, ANEU, BMP, GFR #### [address] [address] .NEUABSon 10-20-2023 Neutrophil, Absolute 4.8 10 3/mcL Normal 2.9-6.2 [facility] ([place] Comment on above: Performed By: #### C BC, ADIFF, ANEU, BMP, GFR #### [place] [id number] CBCon 10-20-2023 Erythrocyte distribution width (RBC) [Ratio] 15.2 % High 11.5-14.5 [facility] ([place]) Comment on above: Performed By: #### C BC, ADIFF, ANEU, BMP, GFR #### [place] [address] Hematocrit (Bld) [Volume fraction] 41.4 % Low 42.0-52.0 [facility] ([place]) Comment on above: Performed By: #### C BC, ADIFF, ANEU, BMP, GFR #### [place] [address] Hgb 14.3 G/dL Normal 14.0-18.0 [facility] ([place] Comment on above: Performed By: #### C BC, ADIFF, ANEU, BMP, GFR #### [place] [address] MCH (RBC) [Entitic mass] 31.5 pg High 27.0-31.2 [facility] ([place] Comment on above: Performed By: #### C BC, ADIFF, ANEU, BMP, GFR #### [place] [address] MCHC 34.4 G/dL Normal 31.8-35.4 [facility] ([place] Comment on above: Performed By: #### C BC, ADIFF, ANEU, BMP, GFR #### [place] [address] MCV (RBC) [Entitic vol] 91.5 fL Normal 80.0-94.0 [facility] ([place] Comment on above: Performed By: #### C BC, ADIFF, ANEU, BMP, GFR #### [place] [address] Platelet 217 10 3/mcL Normal 130-400 [facility] ([place] Comment on above: Performed By: #### C BC, ADIFF, ANEU, BMP, GFR #### [place] [address] Platelet mean volume (Bld) [Entitic vol] 6.9 fL Low 7.4-10.4 [facility] ([place] Comment on above: Performed By: #### C BC, ADIFF, ANEU, BMP, GFR #### [address] [address] RBC 4.53 10 6/mcL Normal 4.04-6.13 [facility] ([place] Comment on above: Performed By: #### C BC, ADIFF, ANEU, BMP, GFR #### [place] [address] WBC 7.1 10 3/mcL Normal 4.6-10.8 [facility] ([place] Comment on above: Performed By: #### C BC, ADIFF, ANEU, BMP, GFR #### [address] [address] CMPon 10-20-2023 Albumin Level 3.6 G/dL Normal 3.4-4.8 [facility] ([place] Comment on above: Performed By: #### C BC, ADIFF, ANEU, BMP, GFR #### [place] [address] Albumin/Globulin [Mass ratio] 1.2 {ratio} Normal 1.1-2.5 [facility] ([place] Comment on above: Performed By: #### C BC, ADIFF, ANEU, BMP, GFR #### [address] [address] ALP [Catalytic activity/Vol] 94 U/L Normal 40-135 [facility] [place] Comment on above: Performed By: #### C BC, ADIFF, ANEU, BMP, GFR #### [place] [id number] ALT [Catalytic activity/Vol] 34 U/L Normal 16-63 [facility] ([place] Comment on above: Performed By: #### C BC, ADIFF, ANEU, BMP, GFR #### [place] [id number] AST [Catalytic activity/Vol] 24 U/L Normal 10-40 [facility] ([place] Comment on above: Performed By: #### C BC, ADIFF, ANEU, BMP, GFR #### [address] [address] Bili Total 0.4 mg/dL Normal 0.2-1.0 [facility] ([place] Comment on above: Result Comment: Use of this assay is not recommended for patients undergoing treatment with eltrombopag due to the potential for falsely elevated results. Performed By: #### C BC, ADIFF, ANEU, BMP, GFR #### [address] [address] BUN/Creatinine Ratio 17 ratio Normal 7-27 [facility] [place] Comment on above: Performed By: #### C BC, ADIFF, ANEU, BMP, GFR #### [address] [address] Calcium [Mass/Vol] 8.8 mg/dL Normal 8.4-10.2 [facility] [place] Comment on above: Performed By: #### C BC, ADIFF, ANEU, BMP, GFR #### [address] [address] Chloride [Moles/Vol] 106 mmol/L Normal 98-107 [facility] [place] Comment on above: Performed By: #### C BC, ADIFF, ANEU, BMP, GFR #### [address] [address] CO2 [Moles/Vol] 32 mmol/L High 23-31 [facility] ([place] Comment on above: Performed By: #### C BC, ADIFF, ANEU, BMP, GFR #### [address] [address] Creatinine [Mass/Vol] 1.00 mg/dL Normal 0.70-1.30 [facility] ([place] Comment on above: Performed By: #### C BC, ADIFF, ANEU, BMP, GFR #### [address] [address] Electrolyte Balance 5.0 mEq/L Normal 4.0-15.0 [facility] ([place]) Comment on above: Performed By: #### C BC, ADIFF, ANEU, BMP, GFR #### [address] [address] Globulin 3.0 G/dL Normal [facility] ([place] Comment on above: Performed By: #### C BC, ADIFF, ANEU, BMP, GFR #### [address] [address] Glucose [Mass/Vol] 120 mg/dL High 83-110 [facility] ([place] Comment on above: Performed By: #### C BC, ADIFF, ANEU, BMP, GFR #### [address] [address] Potassium [Moles/Vol] 4.5 mmol/L Normal 3.5-5.1 [facility] ([place] Comment on above: Performed By: #### C BC, ADIFF, ANEU, BMP, GFR #### [address] [address] Sodium [Moles/Vol] 143 mmol/L Normal 136-145 [facility] [place] Comment on above: Performed By: #### C BC, ADIFF, ANEU, BMP, GFR #### [address] [address] Total Protein 6.6 G/dL Normal 6.4-8.2 [facility] ([place] Comment on above: Performed By: #### C BC, ADIFF, ANEU, BMP, GFR #### [address] [address] Urea nitrogen [Mass/Vol] 17 mg/dL Normal 7-18 [facility] ([place] Comment on above: Performed By: #### C BC, ADIFF, ANEU, BMP, GFR #### [address] [address] LABORATORYOrdered By: SYSTEM SYSTEM on 10-20-2023 Albumin BCP dye [Mass/Vol] 3.6 G/dL Normal 3.4 - 4.8 G/dL AO ADM SS Albumin/Globulin [Mass ratio] 1.2 {ratio} Normal 1.1 - 2.5 ratio AO ADM SS ALP [Catalytic activity/Vol] 94 U/L Normal 40 - 135 U/L AO ADM SS ALT With P-5'-P [Catalytic activity/Vol] 34 U/L Normal 16 - 63 U/L AO ADM SS AST With P-5'-P [Catalytic activity/Vol] 24 U/L Normal 10 - 40 U/L AO ADM SS Basophil, Absolute 0.0 103/mcL Normal 0.0 - 0.2 10^3/mcL AO Workflow SS Basophils/100 WBC (Bld) 0.6 % Normal 0.0 - 2.5 % AO Workflow SS Bilirubin [Mass/Vol] 0.4 mg/dL Normal 0.2 - 1 .0 mg/dL AO ADM SS Comment on above: Interpretive Data: U se of this assay is not recommended for patients undergoing treatment with eltrombopag due to the potential for falsely elevated results. Calcium [Mass/Vol] 8.8 mg/dL Normal 8.4 - 10. 2 mg/dL AO ADM SS Chloride [Moles/Vol] 106 mmol/L Normal 98 - 10 7 mmol/L AO ADM SS CO2 [Moles/Vol] 32 mmol/L High 23 - 31 mmol/L AO ADM SS Creatinine [Mass/Vol] 1.00 mg/dL Normal 0.70 - 1.30 mg/dL AO ADM SS Electrolyte Balance 5.0 mEq/L Normal 4.0 - 15 .0 mEq/L AO ADM SS Eosinophil, Absolute 0.5 103/mcL High 0.0 - 0 .4 10^3/mcL AO Workflow SS Eosinophils/100 WBC (Bld) 7.2 % High 0.0 - 7.0 % AO Workflow SS Erythrocyte distribution width (RBC) [Ratio] 15.2 % High 11.5 - 14.5 % AO Workflow SS GFR/1.73 sq M.predicted among blacks MDRD (S/P/Bld) [Vol rate/Area] 88 ml/min/1.73sqm Invalid Interpretation Code AO Chemistry S Comment on above: Interpretive Data: GFR Population mean for , Non- Americans Ages 20-29 = 116 mL/min/1.73 sq.m. Ages 30-39 = 107 mL/min/1.73 sq.m. Ages 40-49 = 99 mL/min/1.73 sq.m. Ages 50-59 = 93 mL/min/1.73 sq.m. Ages 60-69 = 85 mL/min/1.73 sq.m. Ages 70+ = 75 mL/min/1.73 sq.m. Chronic Kidney Disease: Less than 60 mL/min/1.73 square meters End Stage Renal Disease: Less than 15 mL/min/1.73 square meters GFR/1.73 sq M.predicted among non-blacks MDRD (S/P/Bld) [Vol rate/Area] 72 ml/min/1.73sqm Invalid Interpretation Code AO Chemistry S Comment on above: Interpretive Data: GFR Population mean for , Non- Americans Ages 20-29 = 116 mL/min/1.73 sq.m. Ages 30-39 = 107 mL/min/1.73 sq.m. Ages 40-49 = 99 mL/min/1.73 sq.m. Ages 50-59 = 93 mL/min/1.73 sq.m. Ages 60-69 = 85 mL/min/1.73 sq.m. Ages 70+ = 75 mL/min/1.73 sq.m. Chronic Kidney Disease: Less than 60 mL/min/1.73 square meters End Stage Renal Disease: Less than 15 mL/min/1.73 square meters Globulin 3.0 G/dL Invalid Interpretation Code AO ADM SS Glucose [Mass/Vol] 120 mg/dL High 83 - 110 mg/dL AO ADM SS Hematocrit (Bld) [Volume fraction] 41.4 % Low 42.0 - 52.0 % AO Workflow SS Hemoglobin (Bld) [Mass/Vol] 14.3 G/dL Normal 14.0 - 18.0 G/dL AO Workflow SS Lymphocyte, Absolute 1.0 103/mcL Normal 0.8 - 3 .9 10^3/mcL AO Workflow SS Lymphocytes/100 WBC (Bld) 14.0 % Normal 10.0 - 50.0 % AO Workflow SS MCH (RBC) [Entitic mass] 31.5 pg High 27.0 - 31.2 pg AO Workflow SS MCHC 34.4 G/dL Normal 31.8 - 35.4 G/dL AO Workflow SS MCV (RBC) [Entitic vol] 91.5 fL Normal 80.0 - 94.0 fL AO Workflow SS Monocyte, Absolute 0.7 103/mcL Normal 0.2 - 1.0 10^3/mcL AO Workflow SS Monocytes/100 WBC (Bld) 9.8 % Normal 1.7 - 13.0 % AO Workflow SS Neutrophil, Absolute 4.8 103/mcL Normal 2.9 - 6 .2 10^3/mcL AO Workflow SS Neutrophils/100 WBC (Bld) 68.4 % Normal 37.0 - 80.0 % AO Workflow SS Platelet mean volume (Bld) [Entitic vol] 6.9 fL Low 7.4 - 10.4 fL AO Workflow SS Platelets (Bld) [#/Vol] 217 103/mcL Normal 130 - 400 10^3/mcL AO Workflow SS Potassium [Moles/Vol] 4.5 mmol/L Normal 3.5 - 5.1 mmol/L AO ADM SS Prostate specific Ag [Mass/Vol] 0.81 ng/mL Normal 0.00 - 4.00 ng/mL AO ADM SS Protein [Mass/Vol] 6.6 G/dL Normal 6.4 - 8.2 G/dL AO ADM SS RBC (Bld) [#/Vol] 4.53 106/mcL Normal 4.04 - 6.1 3 10^6/mcL AO Workflow SS Sodium [Moles/Vol] 143 mmol/L Normal 136 - 145 mmol/L AO ADM SS Urea nitrogen [Mass/Vol] 17 mg/dL Normal 7 - 18 mg/dL AO ADM SS Urea nitrogen/Creatinine [Mass ratio] 17 ratio Normal 7 - 27 ratio AO ADM SS WBC (Bld) [#/Vol] 7.1 103/mcL Normal 4.6 - 10.8 10^3/mcL AO Workflow SS LABORATORYOrdered By: Graciela Soliz on 10-20-2023 Cholesterol [Mass/Vol] 192 mg/dL Normal 0 - 200 mg/dL AO ADM SS Comment on above: Interpretive Data: C holesterol Reference Interval: Less than 200 Desirable 200-239 Borderline high risk 240 and above High risk Cholesterol in HDL [Mass/Vol] 39 mg/dL Low 40 - 60 mg/dL AO ADM SS Cholesterol in LDL [Mass/Vol] 136 mg/dL High 0 - 130 mg/dL AO ADM SS Triglyceride [Mass/Vol] 85 mg/dL Normal 0 - 150 mg/dL AO ADM SS Comment on above: Interpretive Data: T riglyceride Reference Interval: Less than 150 Normal 150-199 Borderline high risk 200-499 High risk 500 or higher Very high risk LIPIDon 10-20-2023 Cholesterol [Mass/Vol] 192 mg/dL Normal 0-200 [facility] ([place]) Comment on above: Result Comment: Chol esterol Reference Interval: Less than 200 Desirable 200-239 Borderline high risk 240 and above High risk Performed By: #### C BC, ADIFF, ANEU, BMP, GFR #### [address] [address] Cholesterol in HDL [Mass/Vol] 39 mg/dL Low 40-60 [facility] ([place]) Comment on above: Performed By: #### C BC, ADIFF, ANEU, BMP, GFR #### [address] [address] Cholesterol in LDL [Mass/Vol] 136 mg/dL High 0-130 [facility] ([place]) Comment on above: Performed By: #### C BC, ADIFF, ANEU, BMP, GFR #### [address] [address] Triglyceride [Mass/Vol] 85 mg/dL Normal 0-150 [facility] ([place]) Comment on above: Result Comment: Trig lyceride Reference Interval: Less than 150 Normal 150-199 Borderline high risk 200-499 High risk 500 or higher Very high risk Performed By: #### C BC, ADIFF, ANEU, BMP, GFR #### [address] [address] PSAon 10-20-2023 Prostate Specific Antigen 0.81 ng/mL Normal 0.00-4.00 [facility] ([place]) Comment on above: Performed By: #### C BC, ADIFF, ANEU, BMP, GFR #### [address] [address] [address] SPINE LUMBAR W/O CONTRAST on 08-11-2023 CT SPINE LUMBAR W/O CONTRAST ORIGINAL EXAMINATION: CT OF THE LUMBAR SPINE WITHOUT CONTRAST 08/11/2023 TECHNIQUE: CT of the lumbar spine was performed without the administration of intravenous contrast. Multiplanar reformatted images are provided for review. Adjustment of mA and/or kV according to patient size was utilized. Automated exposure control, iterative reconstruction, and/or weight based adjustment of the mA/kV was utilized to reduce the radiation dose to as low as reasonably achievable. COMPARISON: CT abdomen pelvis 06/30/2020 HISTORY: ORDERING SYSTEM PROVIDED HISTORY: Reason for Exam: lower back pain, fall FINDINGS: BONES/ALIGNMENT: There are 5 lumbar type vertebral bodies present. There is normal alignment of the spine. The vertebral body heights are maintained. No acute fracture. No osseous destructive lesion is seen. DEGENERATIVE CHANGES: Diffuse osteopenia and degenerative changes in spine and sacroiliac joints. Multilevel disc bulges, facet and ligamentum flavum hypertrophy, and endplate spurring. No high-grade (moderate or severe) spinal canal stenosis. Variable foraminal stenosis. Mild spinal canal stenosis at L4-5. At least moderate bilateral foraminal stenosis at L4-5. SOFT TISSUES/RETROPERITONE UM: No paraspinal mass is seen. Nonaneurysmal atherosclerotic aorta iliac arteries. IMPRESSION: No acute fracture or traumatic listhesis of lumbar spine. Multilevel degenerative changes in the lumbar spine are worst at L4-5, where there is mild spinal canal and moderate foraminal stenosis at L4-5. I have personally reviewed the images of this examination and agree with the resident's findings and interpretation. Interpreted by: Vasu Jensen Preliminary Report By: Gabrielle Smith Electronically signed By Vasu Jensen Dictated Date: 08/11/2023 7:16:07 PM Prelim Date: 08/11/2023 7:23:41 PM Sign Date: 08/11/2023 7:30:27 PM Ordering Provider: VANESSA JAIMES Pending Sale To [facility] ([place]) LABORATORYOrdered By: SYSTEM SYSTEM on 04-17-2023 Albumin BCP dye [Mass/Vol] 4.0 G/dL Invalid Interpretation Code 3.4 - 4.8 G/dL AO ADM SS Albumin/Globulin [Mass ratio] 1.3 {ratio} Invalid Interpretation Code 1.1 - 2.5 ratio AO ADM SS ALP [Catalytic activity/Vol] 84 U/L Invalid Interpretation Code 40 - 135 U/L AO ADM SS ALT With P-5'-P [Catalytic activity/Vol] 44 U/L Invalid Interpretation Code 16 - 63 U/L AO ADM SS AST With P-5'-P [Catalytic activity/Vol] 32 U/L Invalid Interpretation Code 10 - 40 U/L AO ADM SS Basophil, Absolute 0.0 103/mcL Invalid Interpretation Code 0.0 - 0.2 10^3/mcL AO Workflow SS Basophils/100 WBC (Bld) 0.5 % Invalid Interpretation Code 0.0 - 2.5 % AO Workflow SS Bilirubin [Mass/Vol] 0.4 mg/dL Invalid Interpretation Code 0.2 - 1.0 mg/dL AO ADM SS Comment on above: Interpretive Data: U se of this assay is not recommended for patients undergoing treatment with eltrombopag due to the potential for falsely elevated results. Calcium [Mass/Vol] 8.7 mg/dL Invalid Interpretation Code 8.4 - 10.2 mg/dL AO ADM SS Chloride [Moles/Vol] 105 mmol/L Invalid Interpretation Code 98 - 107 mmol/L AO ADM SS CO2 [Moles/Vol] 31 mmol/L Invalid Interpretation Code 23 - 31 mmol/L AO ADM SS Creatinine [Mass/Vol] 0.99 mg/dL Invalid Interpretation Code 0.70 - 1.30 mg/dL AO ADM SS Electrolyte Balance 7.0 mEq/L Invalid Interpretation Code 4.0 - 15.0 mEq/L AO ADM SS Eosinophil, Absolute 0.4 103/mcL Invalid Interpretation Code 0.0 - 0.4 10^3/mcL AO Workflow SS Eosinophils/100 WBC (Bld) 5.4 % Invalid Interpretation Code 0.0 - 7.0 % AO Workflow SS Erythrocyte distribution width (RBC) [Ratio] 13.7 % Invalid Interpretation Code 11.5 - 14.5 % AO Workflow SS GFR/1.73 sq M.predicted among blacks MDRD (S/P/Bld) [Vol rate/Area] 89 ml/min/1.73sqm Invalid Interpretation Code AO Chemistry S Comment on above: Interpretive Data: GFR Population mean for , Non- Americans Ages 20-29 = 116 mL/min/1.73 sq.m. Ages 30-39 = 107 mL/min/1.73 sq.m. Ages 40-49 = 99 mL/min/1.73 sq.m. Ages 50-59 = 93 mL/min/1.73 sq.m. Ages 60-69 = 85 mL/min/1.73 sq.m. Ages 70+ = 75 mL/min/1.73 sq.m. Chronic Kidney Disease: Less than 60 mL/min/1.73 square meters End Stage Renal Disease: Less than 15 mL/min/1.73 square meters GFR/1.73 sq M.predicted among non-blacks MDRD (S/P/Bld) [Vol rate/Area] 73 ml/min/1.73sqm Invalid Interpretation Code AO Chemistry S Comment on above: Interpretive Data: GFR Population mean for , Non- Americans Ages 20-29 = 116 mL/min/1.73 sq.m. Ages 30-39 = 107 mL/min/1.73 sq.m. Ages 40-49 = 99 mL/min/1.73 sq.m. Ages 50-59 = 93 mL/min/1.73 sq.m. Ages 60-69 = 85 mL/min/1.73 sq.m. Ages 70+ = 75 mL/min/1.73 sq.m. Chronic Kidney Disease: Less than 60 mL/min/1.73 square meters End Stage Renal Disease: Less than 15 mL/min/1.73 square meters Globulin 3.0 G/dL Invalid Interpretation Code AO ADM SS Glucose [Mass/Vol] 101 mg/dL Invalid Interpretation Code 83 - 110 mg/dL AO ADM SS Hematocrit (Bld) [Volume fraction] 40.5 % Invalid Interpretation Code 42.0 - 52.0 % AO Workflow SS Hemoglobin (Bld) [Mass/Vol] 13.9 G/dL Invalid Interpretation Code 14.0 - 18.0 G/dL AO Workflow SS Lymphocyte, Absolute 1.0 103/mcL Invalid Interpretation Code 0.8 - 3.9 10^3/mcL AO Workflow SS Lymphocytes/100 WBC (Bld) 13.6 % Invalid Interpretation Code 10.0 - 50.0 % AO Workflow SS MCH (RBC) [Entitic mass] 31.1 pg Invalid Interpretation Code 27.0 - 31.2 pg AO Workflow SS MCHC 34.3 G/dL Invalid Interpretation Code 31.8 - 35.4 G/dL AO Workflow SS MCV (RBC) [Entitic vol] 90.7 fL Invalid Interpretation Code 80.0 - 94.0 fL AO Workflow SS Monocyte, Absolute 1.0 103/mcL Invalid Interpretation Code 0.2 - 1.0 10^3/mcL AO Workflow SS Monocytes/100 WBC (Bld) 13.3 % Invalid Interpretation Code 1.7 - 13.0 % AO Workflow SS Neutrophil, Absolute 4.8 103/mcL Invalid Interpretation Code 2.9 - 6.2 10^3/mcL AO Workflow SS Neutrophils/100 WBC (Bld) 67.2 % Invalid Interpretation Code 37.0 - 80.0 % AO Workflow SS Platelet mean volume (Bld) [Entitic vol] 6.8 fL Invalid Interpretation Code 7.4 - 10.4 fL AO Workflow SS Platelets (Bld) [#/Vol] 222 103/mcL Invalid Interpretation Code 130 - 400 10^3/mcL AO Workflow SS Potassium [Moles/Vol] 4.4 mmol/L Invalid Interpretation Code 3.5 - 5.1 mmol/L AO ADM SS Protein [Mass/Vol] 7.0 G/dL Invalid Interpretation Code 6.4 - 8.2 G/dL AO ADM SS RBC (Bld) [#/Vol] 4.47 106/mcL Invalid Interpretation Code 4.04 - 6.13 10^6/mcL AO Workflow SS Sodium [Moles/Vol] 143 mmol/L Invalid Interpretation Code 136 - 145 mmol/L AO ADM SS Urea nitrogen [Mass/Vol] 16 mg/dL Invalid Interpretation Code 7 - 18 mg/dL AO ADM SS Urea nitrogen/Creatinine [Mass ratio] 16 ratio Invalid Interpretation Code 7 - 27 ratio AO ADM SS WBC (Bld) [#/Vol] 7.2 103/mcL Invalid Interpretation Code 4.6 - 10.8 10^3/mcL AO Workflow SS LABORATORYOrdered By: Chino Murcia on 04-17-2023 Protein [Mass/Vol] 6.7 G/dL Invalid Interpretation Code 5.7 - 8.2 G/dL AH ADM SS Comment on above: Interpretive Data: * *Note - New Reference Range in effect 20 LABORATORYOrdered By: SYSTEM SYSTEM on 03-05-2023 Cobalamin (Vitamin B12) [Mass/Vol] 245 pg/mL Invalid Interpretation Code 211 - 911 pg/mL ADM SS Ferritin [Mass/Vol] 345.0 ng/mL Invalid Interpretation Code 26.0 - 388.0 ng/mL AO ADM SS Folate [Mass/Vol] 13.88 ng/mL Invalid Interpretation Code 5.38 - 24.00 ng/mL AH ADM SS Iron [Mass/Vol] 85 ug/dL Invalid Interpretation Code 65 - 175 mcg/dL AO ADM SS LABORATORYOrdered By: SYSTEM SYSTEM on 12-03-2022 Albumin BCP dye [Mass/Vol] 3.7 G/dL Invalid Interpretation Code 3.4 - 4.8 G/dL AO ADM SS Albumin/Globulin [Mass ratio] 1.3 {ratio} Invalid Interpretation Code 1.1 - 2.5 ratio AO ADM SS ALP [Catalytic activity/Vol] 80 U/L Invalid Interpretation Code 40 - 135 U/L AO ADM SS ALT With P-5'-P [Catalytic activity/Vol] 43 U/L Invalid Interpretation Code 16 - 63 U/L AO ADM SS AST With P-5'-P [Catalytic activity/Vol] 25 U/L Invalid Interpretation Code 10 - 40 U/L AO ADM SS Bilirubin [Mass/Vol] 0.4 mg/dL Invalid Interpretation Code 0.2 - 1.0 mg/dL AO ADM SS Calcium [Mass/Vol] 8.8 mg/dL Invalid Interpretation Code 8.4 - 10.2 mg/dL AO ADM SS Chloride [Moles/Vol] 106 mmol/L Invalid Interpretation Code 98 - 107 mmol/L AO ADM SS CO2 [Moles/Vol] 31 mmol/L Invalid Interpretation Code 23 - 31 mmol/L AO ADM SS Creatinine [Mass/Vol] 0.88 mg/dL Invalid Interpretation Code 0.70 - 1.30 mg/dL AO ADM SS Electrolyte Balance 7.0 mEq/L Invalid Interpretation Code 4.0 - 15.0 mEq/L AO ADM SS GFR 102 ml/min/1.73sqm Invalid Interpretation Code AO Chemistry S GFR Non- 84 ml/min/1.73sqm Invalid Interpretation Code AO Chemistry S Globulin 2.9 G/dL Invalid Interpretation Code AO ADM SS Glucose [Mass/Vol] 94 mg/dL Invalid Interpretation Code 83 - 110 mg/dL AO ADM SS Potassium [Moles/Vol] 4.5 mmol/L Invalid Interpretation Code 3.5 - 5.1 mmol/L AO ADM SS Prostate specific Ag [Mass/Vol] 0.82 ng/mL Invalid Interpretation Code 0.00 - 4.00 ng/mL AO ADM SS Protein [Mass/Vol] 6.6 G/dL Invalid Interpretation Code 6.4 - 8.2 G/dL AO ADM SS Sodium [Moles/Vol] 144 mmol/L Invalid Interpretation Code 136 - 145 mmol/L AO ADM SS Urea nitrogen [Mass/Vol] 14 mg/dL Invalid Interpretation Code 7 - 18 mg/dL AO ADM SS Urea nitrogen/Creatinine [Mass ratio] 16 ratio Invalid Interpretation Code 7 - 27 ratio AO ADM SS LABORATORYOrdered By: Bossman Sims on 12-03-2022 Basophil, Absolute 0.0 103/mcL Invalid Interpretation Code 0.0 - 0.2 10^3/mcL AO Workflow SS Basophils/100 WBC (Bld) 0.4 % Invalid Interpretation Code 0.0 - 2.5 % AO Workflow SS Eosinophil, Absolute 0.3 103/mcL Invalid Interpretation Code 0.0 - 0.4 10^3/mcL AO Workflow SS Eosinophils/100 WBC (Bld) 3.9 % Invalid Interpretation Code 0.0 - 7.0 % AO Workflow SS Erythrocyte distribution width (RBC) [Ratio] 13.9 % Invalid Interpretation Code 11.5 - 14.5 % AO Workflow SS Hematocrit (Bld) [Volume fraction] 39.6 % Invalid Interpretation Code 42.0 - 52.0 % AO Workflow SS Hemoglobin (Bld) [Mass/Vol] 13.5 G/dL Invalid Interpretation Code 14.0 - 18.0 G/dL AO Workflow SS Lymphocyte, Absolute 1.0 103/mcL Invalid Interpretation Code 0.8 - 3.9 10^3/mcL AO Workflow SS Lymphocytes/100 WBC (Bld) 12.4 % Invalid Interpretation Code 10.0 - 50.0 % AO Workflow SS MCH (RBC) [Entitic mass] 31.0 pg Invalid Interpretation Code 27.0 - 31.2 pg AO Workflow SS MCHC 34.2 G/dL Invalid Interpretation Code 31.8 - 35.4 G/dL AO Workflow SS MCV (RBC) [Entitic vol] 90.7 fL Invalid Interpretation Code 80.0 - 94.0 fL AO Workflow SS Monocyte, Absolute 0.9 103/mcL Invalid Interpretation Code 0.2 - 1.0 10^3/mcL AO Workflow SS Monocytes/100 WBC (Bld) 10.8 % Invalid Interpretation Code 1.7 - 13.0 % AO Workflow SS Neutrophil, Absolute 5.8 103/mcL Invalid Interpretation Code 2.9 - 6.2 10^3/mcL AO Workflow SS Neutrophils/100 WBC (Bld) 72.5 % Invalid Interpretation Code 37.0 - 80.0 % AO Workflow SS Platelet mean volume (Bld) [Entitic vol] 7.3 fL Invalid Interpretation Code 7.4 - 10.4 fL AO Workflow SS Platelets (Bld) [#/Vol] 225 103/mcL Invalid Interpretation Code 130 - 400 10^3/mcL AO Workflow SS RBC (Bld) [#/Vol] 4.37 106/mcL Invalid Interpretation Code 4.04 - 6.13 10^6/mcL AO Workflow SS WBC (Bld) [#/Vol] 8.0 103/mcL Invalid Interpretation Code 4.6 - 10.8 10^3/mcL AO Workflow SS LABORATORYOrdered By: Jackelin Salcido on 12-03-2022 Cholesterol [Mass/Vol] 186 mg/dL Invalid Interpretation Code 0 - 200 mg/dL AO ADM SS Cholesterol in HDL [Mass/Vol] 41 mg/dL Invalid Interpretation Code 40 - 60 mg/dL AO ADM SS Cholesterol in LDL [Mass/Vol] 127 mg/dL Invalid Interpretation Code 0 - 130 mg/dL AO ADM SS Triglyceride [Mass/Vol] 90 mg/dL Invalid Interpretation Code 0 - 150 mg/dL AO ADM SS LABORATORYOrdered By: Jackelin Salcido on 01-10-2022 Albumin BCP dye [Mass/Vol] 3.8 G/dL Invalid Interpretation Code 3.4 - 4.8 G/dL AO ADM SS Albumin/Globulin [Mass ratio] 1.2 {ratio} Invalid Interpretation Code 1.1 - 2.5 ratio AO ADM SS ALP [Catalytic activity/Vol] 86 U/L Invalid Interpretation Code 40 - 135 U/L AO ADM SS ALT With P-5'-P [Catalytic activity/Vol] 29 U/L Invalid Interpretation Code 16 - 63 U/L AO ADM SS AST With P-5'-P [Catalytic activity/Vol] 23 U/L Invalid Interpretation Code 10 - 40 U/L AO ADM SS Bilirubin [Mass/Vol] 0.4 mg/dL Invalid Interpretation Code 0.2 - 1.0 mg/dL AO ADM SS Calcium [Mass/Vol] 8.8 mg/dL Invalid Interpretation Code 8.4 - 10.2 mg/dL AO ADM SS Chloride [Moles/Vol] 108 mmol/L Invalid Interpretation Code 98 - 107 mmol/L AO ADM SS Cholesterol [Mass/Vol] 212 mg/dL Invalid Interpretation Code 0 - 200 mg/dL AO ADM SS Cholesterol in HDL [Mass/Vol] 42 mg/dL Invalid Interpretation Code 40 - 60 mg/dL AO ADM SS Cholesterol in LDL [Mass/Vol] 154 mg/dL Invalid Interpretation Code 0 - 130 mg/dL AO ADM SS CO2 [Moles/Vol] 30 mmol/L Invalid Interpretation Code 23 - 31 mmol/L AO ADM SS Creatinine [Mass/Vol] 0.86 mg/dL Invalid Interpretation Code 0.70 - 1.30 mg/dL AO ADM SS Electrolyte Balance 8.0 mEq/L Invalid Interpretation Code 4.0 - 15.0 mEq/L AO ADM SS Globulin 3.1 G/dL Invalid Interpretation Code AO ADM SS Glucose [Mass/Vol] 103 mg/dL Invalid Interpretation Code 83 - 110 mg/dL AO ADM SS Potassium [Moles/Vol] 4.3 mmol/L Invalid Interpretation Code 3.5 - 5.1 mmol/L AO ADM SS Protein [Mass/Vol] 6.9 G/dL Invalid Interpretation Code 6.4 - 8.2 G/dL AO ADM SS Sodium [Moles/Vol] 146 mmol/L Invalid Interpretation Code 136 - 145 mmol/L AO ADM SS Triglyceride [Mass/Vol] 80 mg/dL Invalid Interpretation Code 0 - 150 mg/dL AO ADM SS Urea nitrogen [Mass/Vol] 17 mg/dL Invalid Interpretation Code 7 - 18 mg/dL AO ADM SS Urea nitrogen/Creatinine [Mass ratio] 20 ratio Invalid Interpretation Code 7 - 27 ratio AO ADM SS LABORATORYOrdered By: Tan Ramos on 01-10-2022 Basophil, Absolute 0.00 103/mcL Invalid Interpretation Code 0.00 - 0.19 10^3/mcL AO Auto Heme SS Basophils/100 WBC (Bld) 0.4 % Invalid Interpretation Code 0.0 - 2.5 % AO Auto Heme SS Eosinophil, Absolute 0.30 103/mcL Invalid Interpretation Code 0.00 - 0.40 10^3/mcL AO Auto Heme SS Eosinophils/100 WBC (Bld) 4.6 % Invalid Interpretation Code 0.0 - 7.0 % AO Auto Heme SS Erythrocyte distribution width (RBC) [Ratio] 13.6 % Invalid Interpretation Code 11.5 - 14.5 % AO Auto Heme SS Hematocrit (Bld) [Volume fraction] 40.6 % Invalid Interpretation Code 42.0 - 52.0 % AO Auto Heme SS Hemoglobin (Bld) [Mass/Vol] 14.0 G/dL Invalid Interpretation Code 14.0 - 18.0 G/dL AO Auto Heme SS Lymphocyte, Absolute 0.80 103/mcL Invalid Interpretation Code 0.77 - 3.85 10^3/mcL AO Auto Heme SS Lymphocytes/100 WBC (Bld) 12.6 % Invalid Interpretation Code 10.0 - 50.0 % AO Auto Heme SS MCH (RBC) [Entitic mass] 31.3 pg Invalid Interpretation Code 27.0 - 31.2 pg AO Auto Heme SS MCHC (RBC) [Mass/Vol] 34.5 G/dL Invalid Interpretation Code 31.8 - 35.4 G/dL AO Auto Heme SS MCV (RBC) [Entitic vol] 90.6 fL Invalid Interpretation Code 80.0 - 94.0 fL AO Auto Heme SS Monocyte, Absolute 0.60 103/mcL Invalid Interpretation Code 0.15 - 1.00 10^3/mcL AO Auto Heme SS Monocytes/100 WBC (Bld) 9.6 % Invalid Interpretation Code 1.7 - 13.0 % AO Auto Heme SS Neutrophil, Absolute 4.90 103/mcL Invalid Interpretation Code 2.85 - 6.16 10^3/mcL AO Auto Heme SS Neutrophils/100 WBC (Bld) 72.8 % Invalid Interpretation Code 37.0 - 80.0 % AO Auto Heme SS Platelet mean volume (Bld) [Entitic vol] 7.5 fL Invalid Interpretation Code 7.4 - 10.4 fL AO Auto Heme SS Platelets (Bld) [#/Vol] 238 103/mcL Invalid Interpretation Code 130 - 400 10^3/mcL AO Auto Heme SS RBC (Bld) [#/Vol] 4.48 106/mcL Invalid Interpretation Code 4.04 - 6.13 10^6/mcL AO Auto Heme SS WBC (Bld) [#/Vol] 6.70 103/mcL Invalid Interpretation Code 4.60 - 10.80 10^3/mcL AO Auto Heme SS LABORATORYOrdered By: SYSTEM SYSTEM on 01-10-2022 GFR 105 ml/min/1.73sqm Invalid Interpretation Code AO Chemistry S GFR Non- 87 ml/min/1.73sqm Invalid Interpretation Code AO Chemistry S Vital Signs Date Time Vital Sign Value Performing Clinician Faci lisy 08-18-2024 15:56-0500 Diastolic Blood Pressure Non-Invasive 80 mm[Hg] SIERRA BLACK DO [facility] 08-18-2024 15:56-0500 Heart rate 88 /min SIERRA FROMLEIT DO [facility] 08-18-2024 15:56-0500 Respiratory rate 16 /min SIERRA FROMMELT DO [facility] 08-18-2024 15:56-0500 Systolic Blood Pressure Non-Invasive 145 mm[Hg] SIERRA FROMMELT DO [facility] 08-18-2024 14:28-0500 Body temperature 97.52 [degF] SIERRA FROMMELT DO [facility] 08-18-2024 14:28-0500 Body weight 77 kg SIERRA FROMMELT DO [facility] 08-18-2024 14:28-0500 Diastolic Blood Pressure Non-Invasive 74 mm[Hg] SIERRA FROMMELT DO [facility] 08-18-2024 14:28-0500 Heart rate 93 /min SIERRA LOT DO [facility] 08-18-2024 14:28-0500 Respiratory rate 16 /min SIERRA FROMLEIT DO [facility] 08-18-2024 14:28-0500 Systolic Blood Pressure Non-Invasive 139 mm[Hg] SIERRA FROMMELT DO [facility] 05-01-2024 06:47-0400 Body temperature 97.7 [degF] FORREST CAO APRN-VEGETABLE LOADER MACHINE OPERATOR [facility] 05-01-2024 06:47-0400 Diastolic Blood Pressure Non-Invasive 89 mm[Hg] FORREST CAO APRN-VEGETABLE LOADER MACHINE OPERATOR [facility] 05-01-2024 06:47-0400 Heart rate 72 /min FORREST MARCANOKIMBERLEEERWIN WOOD LAST MAKER-VEGETABLE LOADER MACHINE OPERATOR [facility] 05-01-2024 06:47-0400 Reason For Taking VItal Signs FORREST CAO [employer] MAK[employer]-VEGETABLE LOADER MACHINE OPERATOR [facility] 05-01-2024 06:47-0400 Systolic Blood Pressure Non-Invasive 156 mm[Hg] FORREST RUGGIEROERWIN WOOD LAST MAKER-VEGETABLE LOADER MACHINE OPERATOR [facility] 04-30-2024 19:14-0400 Body temperature 97.88 [degF] FORREST RUGGIEROERWIN WOOD LAST MAKER-VEGETABLE LOADER MACHINE OPERATOR [facility] 04-30-2024 19:14-0400 Diastolic Blood Pressure Non-Invasive 84 mm[Hg] FORREST RUGGIEROERWIN WOOD LAST MAKER-VEGETABLE LOADER MACHINE OPERATOR [facility] 04-30-2024 19:14-0400 Heart rate 92 /min FORREST KRYSKIMBERLEEERWIN WOOD LAST MAKER-VEGETABLE LOADER MACHINE OPERATOR [facility] 04-30-2024 19:14-0400 Reason For Taking VItal Signs FORREST MARCANOKIMBERLEEERWIN WOOD LAST MAKER-VEGETABLE LOADER MACHINE OPERATOR [facility] 04-30-2024 19:14-0400 Systolic Blood Pressure Non-Invasive 158 mm[Hg] FORREST RUGGIEROERWIN WOOD LAST MAKER-VEGETABLE LOADER MACHINE OPERATOR [facility] 04-30-2024 11:41-0400 Heart rate 65 /min FORREST KRYSKIMBERLEEERWIN WOOD LAST MAKER-VEGETABLE LOADER MACHINE OPERATOR [facility] 04-30-2024 07:31-0400 Body temperature 98.24 [degF] FORREST RUGGIEROERWIN WOOD LAST MAKER-VEGETABLE LOADER MACHINE OPERATOR [facility] 04-30-2024 07:31-0400 Diastolic Blood Pressure Non-Invasive 90 mm[Hg] FORREST CAO [employer] MAKER-VEGETABLE LOADER MACHINE OPERATOR [facility] 04-30-2024 07:31-0400 Heart rate 87 /min FORREST MONIKERWIN WOOD LAST MAKER-VEGETABLE LOADER MACHINE OPERATOR [facility] 04-30-2024 07:31-0400 Reason For Taking VItal Signs FORREST MARCANOKIMBERLEEERWIN WOOD LAST MAKER-VEGETABLE LOADER MACHINE OPERATOR [facility] 04-30-2024 07:31-0400 Respiratory rate 18 /min FORREST MARCANOKIMBERLEEERWIN WOOD LAST MAKER-VEGETABLE LOADER MACHINE OPERATOR [facility] 04-30-2024 07:31-0400 Systolic Blood Pressure Non-Invasive 175 mm[Hg] FORREST RUGGIEROERWIN WOOD LAST MAKER-VEGETABLE LOADER MACHINE OPERATOR [facility] [facility] 04-29-2024 18:38-0400 Respiratory rate 18 /min FORREST CAO WOOD LAST MAKER-VEGETABLE LOADER MACHINE OPERATOR [facility] 04-29-2024 11:27-0400 Respiratory rate 18 /min FORREST RUGGIEROERWIN WOOD LAST MAKER-VEGETABLE LOADER MACHINE OPERATOR [facility] 04-26-2024 19:20-0400 Heart rate 95 /min FORREST RUGGIEROERWIN WOOD LAST MAKER-VEGETABLE LOADER MACHINE OPERATOR [facility] 04-26-2024 13:56-0400 Body height 167.6 cm FORREST CAO WOOD LAST MAKER-VEGETABLE LOADER MACHINE OPERATOR [facility] 04-26-2024 13:56-0400 Body weight 84 kg FORREST MONIKERWIN WOOD LAST MAKER-VEGETABLE LOADER MACHINE OPERATOR [facility] 04-26-2024 13:56-0400 Body weight 29.9 kg/m2 FORREST RUGGIEROERWIN WOOD LAST MAKER-VEGETABLE LOADER MACHINE OPERATOR [facility] 04-26-2024 10:52-0400 Blood Pressure Location OSMEL BURRELL WOOD LAST MAKER-VEGETABLE LOADER MACHINE OPERATOR [facility] 04-26-2024 10:52-0400 Blood Pressure Method OSMEL HARMON WOOD LAST MAKER-VEGETABLE LOADER MACHINE OPERATOR [facility] 04-26-2024 10:52-0400 Respiratory rate 18 /min OSMEL BURRELL WOOD LAST MAKER-VEGETABLE LOADER MACHINE OPERATOR [facility] 04-26-2024 10:51-0400 Body temperature 97.7 [degF] OSMEL INDRA WOOD LAST MAKER-VEGETABLE LOADER MACHINE OPERATOR [facility] 04-26-2024 10:51-0400 Diastolic Blood Pressure Non-Invasive 87 mm[Hg] OSMEL BURRELL WOOD LAST MAKER-VEGETABLE LOADER MACHINE OPERATOR [facility] 04-26-2024 10:51-0400 Heart rate 90 /min OSMEL BURRELL WOOD LAST MAKER-VEGETABLE LOADER MACHINE OPERATOR [facility] 04-26-2024 10:51-0400 Systolic Blood Pressure Non-Invasive 142 mm[Hg] OSMEL INDRA WOOD LAST MAKER-VEGETABLE LOADER MACHINE OPERATOR [facility] 04-26-2024 10:07-0400 Heart rate 86 /min OSMEL BURRELL WOOD LAST MAKER-VEGETABLE LOADER MACHINE OPERATOR [facility] 04-26-2024 10:07-0400 Respiratory rate 18 /min OSMEL BURRELL WOOD LAST MAKER-VEGETABLE LOADER MACHINE OPERATOR [facility] 04-26-2024 06:35-0400 Body temperature 98.06 [degF] OSMEL HAWKINSDarronCOOPER WOOD LAST MAKER-VEGETABLE LOADER MACHINE OPERATOR [facility] 04-26-2024 06:35-0400 Diastolic Blood Pressure Non-Invasive 71 mm[Hg] OSMEL BURRELL WOOD LAST MAKER-VEGETABLE LOADER MACHINE OPERATOR [facility] 04-26-2024 06:35-0400 Heart rate 94 /min OSMEL FINKLEY WOOD LAST MAKER-VEGETABLE LOADER MACHINE OPERATOR [facility] 04-26-2024 06:35-0400 Reason For Taking VItal Signs OSMEL BURRELL WOOD LAST MAKER-VEGETABLE LOADER MACHINE OPERATOR [facility] 04-26-2024 06:35-0400 Respiratory rate 18 /min OSMEL FINKLEY WOOD LAST MAKER-VEGETABLE LOADER MACHINE OPERATOR [facility] 04-26-2024 06:35-0400 Systolic Blood Pressure Non-Invasive 157 mm[Hg] OSMEL HAWKINS-COOPER WOOD LAST MAKER-VEGETABLE LOADER MACHINE OPERATOR [facility] 04-26-2024 06:14-0400 Heart rate 87 /min OSMEL FINKLEY WOOD LAST MAKER-VEGETABLE LOADER MACHINE OPERATOR [facility] 04-26-2024 03:04-0400 Body temperature 97.88 [degF] OSMEL BURRELL WOOD LAST MAKER-VEGETABLE LOADER MACHINE OPERATOR [facility] 04-26-2024 03:04-0400 Diastolic Blood Pressure Non-Invasive 89 mm[Hg] OSMEL BURRELL WOOD LAST MAKER-VEGETABLE LOADER MACHINE OPERATOR [facility] 04-26-2024 03:04-0400 Heart rate 93 /min OSMEL FINKLEY WOOD LAST MAKER-VEGETABLE LOADER MACHINE OPERATOR [facility] 04-26-2024 03:04-0400 Reason For Taking VItal Signs OSMEL FINKLEY WOOD LAST MAKER-VEGETABLE LOADER MACHINE OPERATOR [facility] 04-26-2024 03:04-0400 Systolic Blood Pressure Non-Invasive 168 mm[Hg] OSMEL HAWKINS-COOPER WOOD LAST MAKER-VEGETABLE LOADER MACHINE OPERATOR [facility] 04-25-2024 23:26-0400 Reason For Taking VItal Signs OSMEL SHRUTHIDOMINIK WOOD LAST MAKER-VEGETABLE LOADER MACHINE OPERATOR [facility] 04-24-2024 15:40-0400 Heart rate 77 /min OSMEL FINKLEY WOOD LAST MAKER-VEGETABLE LOADER MACHINE OPERATOR [facility] 04-24-2024 06:40-0400 Heart rate 90 /min OSMEL FINKLEY WOOD LAST MAKER-VEGETABLE LOADER MACHINE OPERATOR [facility] 04-22-2024 19:16-0400 Blood Pressure Cuff Size OSMEL GARCIAYDarronCOOPER WOOD LAST MAKER-VEGETABLE LOADER MACHINE OPERATOR [facility] 04-22-2024 19:16-0400 Blood Pressure Location OSMELTING BURRELL WOOD LAST MAKER-VEGETABLE LOADER MACHINE OPERATOR [facility] 04-22-2024 19:16-0400 Blood Pressure Method OSMELTING HARMON WOOD LAST MAKER-VEGETABLE LOADER MACHINE OPERATOR [facility] 04-22-2024 18:00-0400 Body height 175.3 cm OSMEL GARCIADOMINIK WOOD LAST MAKER-VEGETABLE LOADER MACHINE OPERATOR [facility] 04-22-2024 18:00-0400 Body weight 87.5 kg OSMEL SHRUTHIDOMINIK WOOD LAST MAKER-VEGETABLE LOADER MACHINE OPERATOR [facility] 10-02-2023 19:44-0500 Blood Pressure Cuff Size DR NAPOLEON RAWLS MD [facility] 10-02-2023 19:44-[address] NAPOLEON RAWLS MD [facility] 10-02-2023 19:44-[address] NAPOLEON RAWLS MD [facility] 10-02-2023 19:44-0500 Body height 175.[address] NAPOLEON RAWLS MD [facility] 10-02-2023 19:44-0500 Body temperature 96.98 [degF] DR NAPOLEON RAWLS MD [facility] 10-02-2023 19:44-0500 Body weight 87.[address] NAPOLEON RAWLS MD [facility] 10-02-2023 19:44-0500 Diastolic Blood Pressure Non-Invasive 91 mm[Hg] DR NAPOLEON RAWLS MD [facility] 10-02-2023 19:44-0500 Heart rate 90 /min DR NAPOLEON RAWLS MD [facility] 10-02-2023 19:44-0500 Reason For Taking VItal Signs DR NAPOLEON RAWLS MD [facility] 10-02-2023 19:44-0500 Respiratory rate 20 /min DR NAPOLEON RAWLS MD [facility] 10-02-2023 19:44-0500 Systolic Blood Pressure Non-Invasive 170 mm[Hg] DR NAPOLEON RAWLS MD [facility] Encounters Encounter Date Encounter Type Care Provider Facility Start: 03-10-2025 End: 03-10-2025 ambulatory KATHERINE BRAND WOOD LAST MAKER-VEGETABLE LOADER MACHINE OPERATOR Facility:[facility] Start: 03-10-2025 End: 03-10-2025 Patient encounter procedure KATHERINE BRAND WOOD LAST MAKER-VEGETABLE LOADER MACHINE OPERATOR [facility] Start: 03-09-2025 End: 03-09-2025 ambulatory KATHERINE BRAND WOOD LAST MAKER-VEGETABLE LOADER MACHINE OPERATOR Facility:[facility] Start: 03-09-2025 End: 03-09-2025 Patient encounter procedure KATHERINE Bowie SUNDAY WOOD LAST MAKER-VEGETABLE LOADER MACHINE OPERATOR [facility] Start: 02-22-2025 End: 02-24-2025 Evaluation and management of inpatient OSMEL HAWKINSDarronCOOPER WOOD LAST MAKER-VEGETABLE LOADER MACHINE OPERATOR [facility] Start: 11-09-2024 End: 11-09-2024 ambulatory Abraham Martins Facility:[facility] Start: 10-21-2024 End: 10-21-2024 ambulatory Katherine Brand STAFFING AND SCHEDULING COORDINATOR Facility:[facility] Start: 10-08-2024 End: 10-08-2024 ambulatory KATHERINE Jamir BRAND WOOD LAST MAKER-VEGETABLE LOADER MACHINE OPERATOR [facility] Start: 10-08-2024 End: 10-08-2024 Patient encounter procedure AMBER GREENWOOD MD [facility] Start: 09-23-2024 End: 09-23-2024 ambulatory Katherine Brand STAFFING AND SCHEDULING COORDINATOR Facility:[facility] Start: 08-18-2024 End: 08-18-2024 Emergency department patient visit SIERRA BLACK [facility] Start: 08-05-2024 End: 08-09-2024 ambulatory KATHERINE Jamir CLAYSUNDAY WOOD LAST MAKER-VEGETABLE LOADER MACHINE OPERATOR [facility] Start: 08-05-2024 End: 08-09-2024 Outreach Lab KATHERINE Jamir SUNDAY WOOD LAST MAKER-VEGETABLE LOADER MACHINE OPERATOR [facility] Start: 08-03-2024 End: 08-03-2024 ambulatory KATHERINE Jamir SUNDAY WOOD LAST MAKER-VEGETABLE LOADER MACHINE OPERATOR Facility[facility] Start: 08-03-2024 End: 08-03-2024 Patient encounter procedure KATHERINE Bowie SUNDAY WOOD LAST MAKER-VEGETABLE LOADER MACHINE OPERATOR [facility] Start: 07-02-2024 ambulatory KATHERINE Jamir TOTH ER WOOD LAST MAKER-VEGETABLE LOADER MACHINE OPERATOR Facility[facility] Start: 06-11-2024 End: 06-11-2024 ambulatory KATHERINE BRAND WOOD LAST MAKER-VEGETABLE LOADER MACHINE OPERATOR Facility[facility] Start: 06-11-2024 End: 06-11-2024 Patient encounter procedure KATHERINE BRAND WOOD LAST MAKER-VEGETABLE LOADER MACHINE OPERATOR [facility] Start: 06-03-2024 End: 06-03-2024 ambulatory KATHERINE BRAND WOOD LAST MAKER-VEGETABLE LOADER MACHINE OPERATOR Facility[facility] Start: 06-03-2024 End: 06-03-2024 Patient encounter procedure KATHERINE BRAND WOOD LAST MAKER-VEGETABLE LOADER MACHINE OPERATOR [facility] Start: 05-19-2024 End: 05-23-2024 ambulatory KATHERINE BRAND WOOD LAST MAKER-VEGETABLE LOADER MACHINE OPERATOR Facility[facility] Start: 05-19-2024 End: 05-23-2024 Outreach Lab DANY TORRES WOOD LAST MAKER-VEGETABLE LOADER MACHINE OPERATOR [facility] Start: 05-19-2024 End: 05-19-2024 AMB External Visit DANY TORRES WOOD LAST MAKER-VEGETABLE LOADER MACHINE OPERATOR [facility] Start: 04-26-2024 End: 05-01-2024 Evaluation and management of inpatient FORREST MARCANOKIMBERLEEERWIN WOOD LAST MAKER-VEGETABLE LOADER MACHINE OPERATOR [facility] Start: 04-22-2024 End: 04-26-2024 Evaluation and management of inpatient OSMEL BURRELL WOOD LAST MAKER-VEGETABLE LOADER MACHINE OPERATOR [facility] Start: 02-19-2024 End: 02-19-2024 ambulatory KATHERINE SUNDAY Facility:[facility] Start: 01-22-2024 End: 01-22-2024 ambulatory Brody Pate Facility:[facility] Start: 12-17-2023 End: 12-17-2023 ambulatory [facility] Work Phone: Start: 12-17-2023 End: 12-17-2023 Patient encounter procedure [facility] Specimen Work Phone: Start: 12-17-2023 End: 12-17-2023 ambulatory Brody Pate Facility:[facility] Start: 11-18-2023 End: 11-18-2023 ambulatory [facility]INE [facility] Facility:[facility] Start: 11-18-2023 End: 11-18-2023 Patient encounter procedure KATHERINE BRAND WOOD LAST MAKER-VEGETABLE LOADER MACHINE OPERATOR [facility] Start: 10-20-2023 End: 10-20-2023 ambulatory KATHERINEJOCELYN CLAYMER Facility:[facility] Start: 10-20-2023 End: 10-20-2023 Patient encounter procedure KATHERINE Boiwe SUNDAY WOOD LAST MAKER-VEGETABLE LOADER MACHINE OPERATOR [facility] Start: 10-02-2023 End: 10-02-2023 Emergency department patient visit DR NAPOLEON RAWLS MD [facility] Start: 09-15-2023 End: 04-01-2024 ambulatory KATHERINE BRAND Facility:[facility] Start: 08-11-2023 End: 08-11-2023 Emergency department patient visit ISERRA BLACK DO Facility:[facility] Start: 04-17-2023 End: 04-17-2023 Patient encounter procedure KATHERINE BRAND WOOD LAST MAKER-VEGETABLE LOADER MACHINE OPERATOR [facility] Start: 03-05-2023 End: 03-05-2023 Patient encounter procedure KATHERINE BRAND WOOD LAST MAKER-VEGETABLE LOADER MACHINE OPERATOR [facility] Start: 12-03-2022 End: 12-03-2022 Patient encounter procedure KATHERINE BRAND WOOD LAST MAKER-VEGETABLE LOADER MACHINE OPERATOR [facility] Start: 12-03-2022 End: 12-03-2022 Well adult monitoring check done KATHERINE BRAND WOOD LAST MAKER-VEGETABLE LOADER MACHINE OPERATOR [facility] Start: 01-10-2022 End: 01-10-2022 Patient encounter procedure ARACELI GUERRERO MD [facility] Procedures Date Procedure Procedure Detail Performing Clinician Start: 09-25-2018 Cholecystectomy ARACELI GUERRERO MD Appendectomy ARACELI GUERRERO MD Colonoscopy ARACELI GUERRERO MD CT guided kyphoplast y of fracture of thoracic spine OSMEL BURRELL WOOD LAST MAKER-VEGETABLE LOADER MACHINE OPERATOR Comment on above: Pt reports T13 and T 11 Tonsillectomy ARACELI GUERRERO MD Wrist joint structur e (body structure) ARACELI GUERRERO MD Comment on above: Left Immunizations Immunization Date Immunization Notes Care Provider Ines [facility] 12-07-2024 pneumococcal 21-hang nt [id number] OSMEL BURRELL WOOD LAST MAKER-VEGETABLE LOADER MACHINE OPERATOR [facility] 06-15-2024 influenza virus vacc ine, unspecified formulation KATHERINE BRAND WOOD LAST MAKER-VEGETABLE LOADER MACHINE OPERATOR [facility] 06-15-2024 SARS-CoV-2 (COVID-19 ) [id number] KATHERINE BRAND WOOD LAST MAKER-VEGETABLE LOADER MACHINE OPERATOR [facility] 09-08-2023 influenza virus vacc ine, unspecified formulation DR NAPOLEON RAWLS MD [facility] 09-08-2023 RSV vaccine preF3, recombinant DR NAPOLEON RAWLS MD [facility] 04-24-2023 tetanus toxoid, redu hector diphtheria toxoid, and acellular pertussis vaccine, adsorbed; Translations: [Boostrix (Tdap)] DR NAPOLEON RAWLS MD [facility] 07-24-2022 COVID-19, mRNA, LNP- S, bivalent, PF, 50 mcg/0.5 mL dose; Translations: [Moderna COVID-19 Bivalent Booster Vaccine PF] KATHERINE BRAND WOOD LAST MAKER-VEGETABLE LOADER MACHINE OPERATOR [facility] 07-24-2022 SARS-CoV-2 (CV19)mRNA-1273 bivalent vac; Translations: [Moderna COVID-19 Bivalent Booster Vaccine PF] DR NAPOLEON RAWLS MD [facility] 06-04-2022 influenza, high dose seasonal, preservative-free KATHERINE SUNDAY WOOD LAST MAKER-VEGETABLE LOADER MACHINE OPERATOR [facility] 01-10-2022 COVID-19, mRNA, LNP- S, PF, 100 mcg or 50 mcg dose; Translations: [Moderna COVID-19 Vaccine] ARACELI GUERRERO MD [facility] 08-17-2021 influenza, high dose seasonal, preservative-free; Translations: [Fluad Quadrivalent PF ] ARACELI GUERRERO MD [facility] 07-19-2021 SARS-CoV-2 (COVID-19 ) mRNA-1273 vaccine ARACELI GUERRERO MD [facility] Comment on above: Result Comment: 2020: [id number] 11-29-2020 SARS-CoV-2 (COVID-19 ) mRNA-1273 vaccine ARACELI GUERRERO MD [facility] 11-01-2020 SARS-CoV-2 (COVID-19 ) mRNA-1273 vaccine ARACELI GUERRERO MD [facility] 07-20-2020 influenza virus vacc ine, unspecified formulation ARACELI GUERRERO MD [facility] Comment on above: Result Comment: [facility] influenza, injectabl e, quadrivalent, preservative free; Translations: [Fluarix PF Quadrivalent ] ARACELI GUERRERO MD [facility] 10-28-2018 influenza virus vacc ine, unspecified formulation ARACELI GUERRERO MD [facility] 07-17-2017 influenza virus vacc ine, unspecified formulation ARACELI GUERRERO MD [facility] 08-18-2015 influenza virus vacc ine, unspecified formulation ARACELI GUERRERO MD [facility] 11-28-2014 pneumococcal conjuga te vaccine, 13 valent ARACELI GUERRERO MD [facility] 07-14-2014 influenza virus vacc ine, unspecified formulation ARACELI GUERRERO MD [facility] 10-28-2012 pneumococcal polysaccharide vaccine, 23 valent ARACELI GUERRERO MD [facility] Payers Date Payer Category Payer Medicare [id number] 2023 Self-pay [id number] 2023 Private Health Insurance [id number] [id number] 2023 Unknown [id number] 2016 Unknown [id number] 2011 Medicare [id number] 1946 Unknown [id number] 2.16.8 40.1.240738.3.579.2.627 1946 Unknown [id number] 2.16.8 40.1.409217.3.579.2.627 1946 Unknown [id number] 2.16.8 40.1.285395.3.579.2.7 1946 Unknown [id number] 2.16.8 40.1.847939.3.579.2.627 1946 Unknown [id number] 2.16.8 40.1.741948.3.579.2.627 1946 Unknown [id number] 2.16.8 40.1.214787.3.579.2.627 1946 Unknown [id number] 2.16.8 40.1.137253.3.579.2.627 1946 Unknown [id number] 2.16.8 40.1.723283.3.579.2.627 194 Unknown [id number] 2.16. 840.1.415443.3.579.2.627 1946 Unknown [id number] 2.16. 840.1.184654.3.579.2.627 194 Unknown [id number] 2.16. 840.1.510785.3.579.2.627 1946 Unknown [id number] 2.16.8 40.1.892307.3.579.2.627 1946 Unknown [id number] 2.16.8 40.1.188671.3.579.2.627 1946 Unknown [id number] 2.16.8 40.1.143984.3.579.2.627 1946 Unknown [id number] 2.16.8 40.1.667288.3.579.2.627 1946 Unknown [id number] 2.16.8 40.1.774482.3.579.2.627 194 Unknown [id number] 2.16.8 40.1.966788.3.579.2.627 1946 Unknown [id number] 2.16.8 40.1.210552.3.579.2.627 194 Unknown [id number] 2.16.8 40.1.895796.3.579.2.627 194 Unknown [id number] 2.16.8 40.1.546929.3.579.2.627 194 Unknown [id number] 2.16.8 40.1.589782.3.579.2.627 Unknown [id number] 2.16.8 40.1.097334.3.579.2.462 Unknown [id number] 2.16.8 40.1.521134.3.579.2.462 Unknown [id number] 2.16.8 40.1.199709.3.579.2.462 Unknown [id number] 2.16.8 40.1.435688.3.579.2.462 Unknown [id number] 2.16.8 40.1.826023.3.579.2.462 Social History Date Type Detail Facility Start: 09-16-2018 End: 02-10-2025 Tobacco smoking status Ex-smoker (finding) [facility] Start: 1945 Sex Assigned At Male A [facility] Sexual Orientation [facility] Start: 10-27-2019 Sex Male (finding) [facility] Functional Status Date Assessment Result Facility 08-18-2024 Functional Status Independent [facility] 08-18-2024 Functional Status Identified as high risk, Room located near nursing station [facility] 05-01-2024 Functional Status Nurse Jayden jackson q2hrs Performed Other: 7am-250pm [facility] 05-01-2024 Functional Status Walker [facility] 05-01-2024 Functional Status bilateral knee high removed/off [facility] 05-01-2024 Functional Status Non-Slip footw ear, toileting offered, supervised while toileting, Room check performed [facility] 05-01-2024 [facility] 04[facility]30[facility]24 [facility] 04[facility]30[facility] 04-30-[facility]24 Functional Status [facility] 04-30-2024 Functional Status Mod I [facility] 04-30-[facility]24 [facility] 04-29-2024 Functional Status Berkley Ho brianne [facility] 04-29-2024 [facility] 04-29-2024 Functional [facility] 04-28-2024 Functional [facility] 04-28-2024 Functional Status [facility] 04-27-2024 Functional Status Berkley Ho [facility] 04-27-2024 Functional Status OT Toilet Transfers [facility] 04-26-2024 Functional Status Single level home [facility] 04-26-2024 Functional Status Mod A Berkley Luong [facility] 04-26-2024 Functional Status Min A Berkley Luong [facility] 04-26-2024 Functional Status Identified as high risk, Fall ID band on, Room located near nursing station, Bed alert on, Door open, Non-Slip footwear [facility] 04-26-2024 Functional Status Berkley Ho [facility] 04-25-2024 Functional Status 7pm-7am Berkley Ho [facility] 04-25-2024 Functional Status 25 Berkley Ho [facility] 04-25-2024 Functional Status Berkley Ho [facility] 04-25-2024 Functional Status Berkley Ho [facility] 04-25-2024 Functional Status Berkley Ho [facility] 04-25-2024 Functional Status Berkley Ho [facility] 04-25-2024 Functional Status Berkley Ho [facility] 04-24-2024 Functional Status Berkley Ho [facility] 04-24-2024 Functional Status Done Berkley Ho [facility] 04-24-2024 Functional Status Berkley Ho [facility] 04-24-2024 Functional Status Berkley Ho [facility] 04-23-2024 Functional Status Front wheeled [facility] 04-23-2024 Functional Status Single level home [facility] 10-02-2023 Functional Status Awake, Resting [facility] Mental Status Date Assessment Result Facility 08-18-2024 Mental Status Orientation Oriented x 4 [facility] 08-18-2024 Mental Status [facility] 05-01-2024 Mental Status Oriented x 4 [facility] 04-30-2024 Mental Status [facility] 04-30-2024 Mental Status [facility] 04-30-[address] [facility] 04-26-2024 Mental Status Oriented x [address] [facility] 04-26-2024 Mental Status [facility] 04-26-2024 Mental Status [facility] 10-02-2023 Mental Status Oriented x [address] [facility] Clinical Notes 10-02-2023 to 02-28-2025 Note Date & Type Note Facility 02-28-2025 Note . MICRO - Microbiology PROCEDURE: Blood Culture (bacterial) [*1] SOURCE: Blood BODY SITE: COLLECTED DATE/TIME: 02/22/2025 17:56 EDT RECEIVED DATE/TIME: 02/23/2025 14:24 EDT START DATE/TIME: 02/23/2025 14:24 EDT FREE TEXT SOURCE: FINAL REPORTS Final Report [] Verified Date/Time/Personnel: 02/28/2025 14:59 EDT Blood Culture: No Growth at 5 days. PRELIMINARY REPORTS Preliminary Report [] Verified Date/Time/Personnel: 02/23/2025 14:59 EDT Culture has been received in lab and is no growth to date. Routine cultures are held for 5 days. Performing Locations *1: This test was performed at: [facility], [address] [place] [address], [facility] , [facility] 02-28-2025 Note . MICRO - Microbiology PROCEDURE: Blood Culture (bacterial) [*1] SOURCE: Blood BODY SITE: COLLECTED DATE/TIME: 02/22/2025 17:56 EDT RECEIVED DATE/TIME: 02/23/2025 14:24 EDT START DATE/TIME: 02/23/2025 14:24 EDT FREE TEXT SOURCE: FINAL REPORTS Final Report [] Verified Date/Time/Personnel: 02/28/2025 14:59 EDT Blood Culture: No Growth at 5 days. PRELIMINARY REPORTS Preliminary Report [] Verified Date/Time/Personnel: 02/23/2025 14:59 EDT Culture has been received in lab and is no growth to date. Routine cultures are held for 5 days. Performing Locations *1: This test was performed at: [facility], [address] [place] [address], [id number] , [facility] 02-24-2025 Hospital Discharg e instructions Patient Education 02/24/2025 12:59:09 Spinal Compression Fracture Spinal Compression Fracture A spinal compression fracture is a collapse of the bones that form the spine (vertebrae). With this type of fracture, the vertebrae become pushed (compressed) into a wedge shape. Most compression fractures happen in the middle or lower part of the spine. What are the causes? This condition may be caused by: Thinning and loss of density in the bones (osteoporosis). This is the most common cause. A fall. A car or motorcycle accident. Cancer. Trauma, such as a heavy, direct hit to the head or back. What increases the risk? You are more likely to develop this condition if: You are 60 years or older. You have osteoporosis. You have certain types of cancer, including: ?Multiple myeloma. ?Lymphoma. ?Prostate cancer. ?Lung cancer. ?Breast cancer. What are the signs or symptoms? Symptoms of this condition include: Severe pain. Pain that gets worse over time. Pain that is worse when you stand, walk, sit, or bend. Sudden pain that is so bad that it is hard for you to move. Bending or humping of the spine. Gradual loss of height. Numbness, tingling, or weakness in the back and legs. Trouble walking. Your symptoms will depend on the cause of the fracture and how quickly it develops. How is this diagnosed? This condition may be diagnosed based on symptoms, medical history, and a physical exam. During the physical exam, your health care provider may tap along the length of your spine to check for tenderness. Tests may be done to confirm the diagnosis. They may include: A bone mineral density test to check for osteoporosis. Imaging tests, such as a spine X-ray, CT scan, or MRI. How is this treated? Treatment for this condition depends on the cause and severity of the condition. Some fractures may heal on their own with supportive care. Treatment may include: Pain medicine. Rest. A back brace. Physical therapy exercises. Medicine to strengthen bone. Calcium and vitamin D supplements. Fractures that cause the back to become misshapen, cause nerve pain or weakness, or do not respond to other treatment may be treated with surgery. This may include: Vertebroplasty. Bone cement is injected into the collapsed vertebrae to stabilize them. Balloon kyphoplasty. The collapsed vertebrae are expanded with a balloon and then bone cement is injected into them. Spinal fusion. The collapsed vertebrae are connected (fused) to normal vertebrae. Follow these instructions at home: Medicines Take oxhz-pnm-tenvudl and prescription medicines only as told by your health care provider. Do not drive or operate heavy machinery while taking prescription pain medicine. If you are taking prescription pain medicine, take actions to prevent or treat constipation. Your health care provider may recommend that you: ?Drink enough fluid to keep your urine pale yellow. ?Eat foods that are high in fiber, such as fresh fruits and vegetables, whole grains, and beans. ?Limit foods that are high in fat and processed sugars, such as fried or sweet foods. ?Take an timo-fem-dxvhfag or prescription medicine for constipation. If you have a brace: Wear the brace as told by your health care provider. Remove it only as told by your health care provider. Loosen the brace if your fingers or toes tingle, become numb, or turn cold and blue. Keep the brace clean. If the brace is not waterproof: ?Do not let it get wet. ?Cover it with a watertight covering when you take a bath or a shower. Managing pain, stiffness, and swelling If directed, apply ice to the injured area: ?If you have a removable brace, remove it as told by your health care provider. ?Put ice in a plastic bag. ?Place a towel between your skin and the bag. ?Leave the ice on for 30 minutes every two hours at first. Then apply the ice as needed. Activity Rest as told by your health care provider. ?Avoid sitting for a long time without moving. Get up to take short walks every 1 2 hours. This is important to improve blood flow and breathing. Ask for help if you feel weak or unsteady. Return to your normal activities as directed by your health care provider. Ask what activities are safe for you. Do exercises to improve motion and strength in your back (physical therapy), as recommended by your health care provider. Exercise regularly as directed by your health care provider. General instructions Do not drink alcohol. Alcohol can interfere with your treatment. Do not use any products that contain nicotine or tobacco, such as cigarettes and e-cigarettes. These can delay bone healing. If you need help quitting, ask your health care provider. Keep all follow-up visits as told by your health care provider. This is important. It can help to prevent permanent injury, disability, and long-lasting (chronic) pain. Contact a health care provider if: You have a fever. You develop a cough that makes your pain worse. Your pain medicine is not helping. Your pain does not get better over time. You cannot return to your normal activities as planned or expected. Get help right away if: Your pain is very bad and it suddenly gets worse. You are unable to move any body part (paralysis) that is below the level of your injury. You have numbness, tingling, or weakness in any body part that is below the level of your injury. You cannot control your bladder or bowels. Summary A spinal compression fracture is a collapse of the bones that form the spine (vertebrae). With this type of fracture, the vertebrae become pushed (compressed) into a wedge shape. Your symptoms and treatment will depend on the cause and severity of the fracture and how quickly it develops. Some fractures may heal on their own with supportive care. Fractures that cause the back to become misshapen, cause nerve pain or weakness, or do not respond to other treatment may be treated with surgery. This information is not intended to replace advice given to you by your health care provider. Make sure you discuss any questions you have with your health care provider. Document Released: 08/18/2006 Document Revised: 10/14/2019 Document Reviewed: 09/29/2018 [employer] Patient Education 2020 [employer]. 02/24/2025 12:58:21 Weakness, Hkdq-wg-Pupc Weakness Weakness is a lack of strength. You may feel weak all over your body (generalized), or you may feel weak in one part of your body (focal). There are many potential causes of weakness. Sometimes, the cause of your weakness may not be known. Some causes of weakness can be serious, so it is important to see your doctor. Follow these instructions at home: Activity Rest as needed. Try to get enough sleep. Most adults need 7 8 hours of sleep each night. Talk to your doctor about how much sleep you need each night. Do exercises, such as arm curls and leg raises, for 30 minutes at least 2 days a week or as told by your doctor. Think about working with a physical therapist or hop strainer to help you get stronger. General instructions Take qsrr-kqu-izcmfmn and prescription medicines only as told by your doctor. Eat a healthy, well-balanced diet. This includes: ?Proteins to build muscles, such as lean meats and fish. ?Fresh fruits and vegetables. ?Carbohydrates to boost energy, such as whole grains. Drink enough fluid to keep your pee (urine) pale yellow. Keep all follow-up visits as told by your doctor. This is important. Contact a doctor if: Your weakness does not get better or it gets worse. Your weakness affects your ability to: ?Think clearly. ?Do your normal daily activities. Get help right away if you: Have sudden weakness on one side of your face or body. Have chest pain. Have trouble breathing or shortness of breath. Have problems with your vision. Have trouble talking or swallowing. Have trouble standing or walking. Are light-headed. Pass out (lose consciousness). Summary Weakness is a lack of strength. You may feel weak all over your body or just in one part of your body. There are many potential causes of weakness. Sometimes, the cause of your weakness may not be known. Rest as needed, and try to get enough sleep. Most adults need 7 8 hours of sleep each night. Eat a healthy, well-balanced diet. This information is not intended to replace advice given to you by your health care provider. Make sure you discuss any questions you have with your health care provider. Document Released: 07/31/2009 Document Revised: 03/24/2019 Document Reviewed: 03/24/2019 [employer] Patient Education 2020 [employer]. Follow Up Care 02/22/2025 17:35:43 With:IWONA ARCHER DO Address: [address] [place] [address]- [phone] When: Unknown Comments:Please call to schedule with pulmonology for post-hospital appointment regarding 8mm pulmonary nodule. With:ZANDRA RICHMOND MD Address: [address] [place] [address]- [phone] When: Unknown Comments:Please call to schedule your post-hospital follow-up appointment with orthopedic spine doctor for worsening lumbar fractures. With:KATHERINE BRAND APRN-BERTHA Address: [address] [facility] [place] [address] [phone] When:2-4 days [facility] 02-24-2025 Note Discharge Instructions Thank you for allowing [facility] to assist you with your healthcare needs. The following is important discharge information regarding your hospital visit. Your Care Team KATHERINE BRAND APRN-THAO JAIMES APRN, CNP Your Diagnosis Acute hypoxic respiratory failure Bronchitis Compression fracture of L1 lumbar vertebra Falls Pulmonary nodule Weakness What to do next Instructions From Your Doctor You were admitted after having a fall. You had a CT scan that showed worsening compression fracture of L1 vertebra. This is the same 1 that was fractured last year. Recommend that you follow-up with your orthospine surgeon. You did well with therapy and are safe to go home. You were started on prednisone for bronchitis. Your lung sounds improved with this. The prednisone will also help with back pain. Please hold off on taking any meloxicam while you are taking prednisone. You received a dose of prednisone in the hospital before discharge. You will have an additional 3 days that we will start 02/25/2025. You had a CT of your chest that showed an 8 mm nodule. 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 Your indicated that she would prefer to make your appointments. Scheduled Follow-Up Appointments Appointment Type When With Where Contact Information StatusPC OV 03/09/2025 03:00 PM EDT KATHERINE BRAND APRN-BERTHA [facility] [address] [place] [phone] Confirmed PC OV 05/05/2025 03:00 PM EDT KATHERINE BRAND APRN-BERTHA [facility] [address] [place] [phone] Confirmed Follow Up Appointments Follow Up with IWONA ARCHER DO Where:[address] [place] [address]- [phone] Additional Information: Please call to schedule with pulmonology for post-hospital appointment regarding 8mm pulmonary nodule. Follow Up with ZANDRA RICHMOND MD Where:[address] [place] [address]- [phone] Additional Information: Please call to schedule your post-hospital follow-up appointment with orthopedic spine doctor for worsening lumbar fractures. Follow Up with KATHERINE BRAND When:Within 2-4 days Where:[address] [place] [address]- [phone] The Following Activity and Diet Have Been Ordered for You Discharge Activity - Ordered -- Resume your pre-hospitalization activity, 02/24/25 12:06:00 EDT Discharge Diet - Ordered -- No changes were made to your diet during your hospital stay. Please resume your pre hospitalization diet on discharge., 02/24/25 12:06:00 EDT Someone Will Contact You Regarding These Home Health Referrals Consult Home Health - OT (Home Health OT Consult) - Ordered -- 02/24/25 12:06:00 EDT, Home Therapy Order: OT Eval & Treat, Home Therapy Instruction: Full weight bearing, Reason: ADL assistance Consult Home Health - PT (Home Health PT Consult) - Ordered -- 02/24/25 12:06:00 EDT, Home Therapy Order: PT Eval & Treat, Reason: General Debility, Home Therapy Instruction: Full weight bearing Allergies Sallie Nausea Claritin Slo-Niacin atenolol buPROPion cyclobenzaprine Drowsiness erythromycin Medications Please ask your primary doctor or pharmacist before taking any other medication not listed, including over the counter drugs, herbal medications, vitamins and or supplements as they may interact with your home medications. What How Much When Why Instructions Last Dose New predniSONE (predniSONE 20 mg oral tablet) 2 tab(s) by mouth Once a day with a meal Duration: 3 Days Pickup at [facility] Unchanged acetaminophen (acetaminophen 500 mg oral tablet) by mouth Every 6 hours as needed for as needed for pain Unchanged amLODIPine (amLODIPine 10 mg oral tablet) 1 tab(s) by mouth Once a day Unchanged busPIRone (busPIRone 30 mg oral tablet) 1 tab(s) by mouth Two (2) times a day Duration: 90 Days Unchanged calcium carbonate (calcium carbonate 500 mg (200 mg elemental calcium) oral tablet, chewable) 2 tab(s) Chewed Once a day Unchanged carvedilol (carvedilol 12.5 mg oral tablet) 1 tab(s) by mouth Two (2) times a day Unchanged cholecalciferol (Vitamin D3 1250 mcg (50,000 intl units) oral capsule) 1 cap by mouth Every week Unchanged cyanocobalamin (Vitamin B12 1000 mcg oral tablet) 1 tab(s) by mouth Once a day Unchanged denosumab (Prolia 60 mg/ mL subcutaneous solution) 1 Milliliter Subcutaneous Every 6 months Unchanged hydrOXYzine (hydrOXYzine hydrochloride 25 mg oral tablet) 1 tab(s) by mouth Four (4) times a day as needed for as needed for anxiety Unchanged LORazepam (LORazepam 1 mg oral tablet) 1 tab(s) by mouth Once a day as needed for as needed for anxiety Anxiety Duration: 3 Days in lieu of pcp Unchanged losartan (losartan 100 mg oral tablet) 1 tab(s) by mouth Once a day Duration: 90 Days Unchanged melatonin (melatonin 5 mg oral tablet) 1 tab(s) by mouth Daily at bedtime as needed for as needed for insomnia Unchanged meloxicam (meloxicam 7.5 mg oral tablet) 1 tab(s) by mouth Once a day Unchanged PARoxetine (Paxil 40 mg oral tablet) 1 tab(s) by mouth Every day Duration: 90 Days Unchanged tamsulosin (Flomax 0.4 mg oral capsule) 1 cap by mouth Once a day Pharmacy Information [facility]: [address] [place], [place] [phone] Please take this list to your next doctor s visit. Bring all medications you take, including over the counter medications, herbals and other supplements with you to your doctor s visit. Patients and families are reminded to discard old lists and to update any records with all medication providers or retail pharmacies. Medication Leaflets prednisone (JANET sandoval ashutosh Shanks What is the most important information I should know about prednisone? You should not use prednisone if you have a fungal infection anywhere in your body. You should not stop using prednisone suddenly. Follow your doctor's instructions about tapering your dose. What is prednisone? Prednisone is a steroid that reduces inflammation in the body, and also suppresses your immune system. Prednisone is used to treat many different conditions such as hormonal disorders, skin diseases, arthritis, lupus, psoriasis, allergic conditions, ulcerative colitis, Crohn's disease, eye diseases, lung diseases, asthma, tuberculosis, blood cell disorders, kidney disorders, leukemia, lymphoma, multiple sclerosis, organ transplant rejection, swelling from a brain tumor or injury. Prednisone may also be used for purposes not listed in this medication guide. What should I discuss with my healthcare provider before taking prednisone? You should not use prednisone if you are allergic to it, or if you have a fungal infection anywhere in your body. Steroid medication can weaken your immune system, making it easier for you to get an infection or worsening an infection you already have. Tell your doctor about any illness or infection you've had within the past several weeks. Tell your doctor if you have ever had: heart problems, high blood pressure, or a heart attack; glaucoma or cataracts; herpes infection of the eyes; past or present tuberculosis; a parasite infection that causes diarrhea (such as threadworms); any illness that causes diarrhea; underactive thyroid; diabetes; a stomach ulcer, diverticulitis; a colostomy or ileostomy; osteoporosis or low bone mineral density (steroid medication can increase your risk of bone loss); low levels of calcium or potassium in your blood; cirrhosis or other liver disease; mental illness or psychosis; or a muscle disorder such as myasthenia gravis. Long-term use of steroids may lead to bone loss (osteoporosis), especially if you smoke or drink alcohol, if you do not exercise, or if you do not get enough vitamin D or calcium in your diet. It is not known whether this medicine will harm an unborn baby. Tell your doctor if you are or plan to become . You should not breastfeed while using prednisone. How should I take prednisone? Follow all directions on your prescription label and read all medication guides or instruction sheets. Your doctor may occasionally change your dose. Use the medicine exactly as directed. Prednisone is taken daily or every other day, depending on the condition being treated. You may need to take the medicine at a certain time of day. Follow your doctor's instructions about when and how often to take this medicine. Take with food if prednisone upsets your stomach. Measure liquid medicine carefully. Use the dosing syringe provided, or use a medicine dose-measuring device (not a kitchen spoon). Swallow the delayed-release tablet whole and do not crush, chew, or break it. Prednisone can weaken (suppress) your immune system, and you may get an infection more easily. Call your doctor if you have signs of infection (fever, weakness, cold or flu symptoms, skin sores, diarrhea, frequent or recurring illness). If you have major surgery or a severe injury or infection, your prednisone dose needs may change. Make sure any doctor caring for you knows you are using this medicine. If you use this medicine long-term, you may need medical tests and vision exams. In case of emergency, wear or carry medical identification to let others know you use a steroid. You should not stop using prednisone suddenly. Follow your doctor's instructions about tapering your dose. Store at room temperature away from moisture, heat, and light. What happens if I miss a dose? Take the medicine as soon as you can, but skip the missed dose if it is almost time for your next dose. Do not take two doses at one time. What happens if I overdose? Seek emergency medical attention or call the Poison Help line at . High doses or long-term use of prednisone can lead to thinning skin, easy bruising, changes in body fat (especially in your face, neck, back, and waist), increased acne or facial hair, menstrual problems, impotence, or loss of interest in sex. What should I avoid while taking prednisone? Do not receive a 'live' vaccine while using prednisone. The vaccine may not work as well and may not fully protect you from disease. Live vaccines include measles, mumps, rubella (MMR), polio, rotavirus, typhoid, yellow fever, varicella (chickenpox), zoster (shingles), and nasal flu (influenza) vaccine. Avoid being near people who are sick or have infections. Call your doctor for preventive treatment if you are exposed to chickenpox or measles. These conditions can be serious or even fatal in people who are using steroid medicine. Avoid drinking alcohol. What are the possible side effects of prednisone? Get emergency medical help if you have signs of an allergic reaction: hives; difficult breathing; swelling of your face, lips, tongue, or throat. Call your doctor at once if you have: muscle pain or weakness; blurred vision, tunnel vision, eye pain, or seeing halos around lights; severe depression, changes in personality, unusual thoughts or behavior; bloody or tarry stools, coughing up blood or vomit that looks like coffee grounds; swelling, rapid weight gain, feeling short of breath; irregular heartbeats; severe headache, pounding in your neck or ears; decreased adrenal gland hormones--muscle weakness, tiredness, diarrhea, nausea, menstrual changes, skin discoloration, craving salty foods, and feeling light-headed; or low potassium level--leg cramps, constipation, irregular heartbeats, fluttering in your chest, increased thirst or urination, numbness or tingling, muscle weakness or limp feeling. Prednisone can affect growth in children. Tell your doctor if your child is not growing at a normal rate while using this medicine. Common side effects may include: weight gain (especially in your face or your upper back and torso); increased appetite; mood changes, trouble sleeping; changes in your menstrual periods; problems with memory or thought; muscle or joint pain; weakness; headache, dizziness, spinning sensation; nausea, bloating, loss of appetite; slow wound healing; or acne, increased sweating, thinning skin, bruising, pinpoint spots under your skin. This is not a complete list of side effects and others may occur. Call your doctor for medical advice about side effects. You may report side effects to FDA at 8-239-LMH-2765. What other drugs will affect prednisone? Sometimes it is not safe to use certain medications at the same time. Some drugs can affect your blood levels of other drugs you take, which may increase side effects or make the medications less effective. Tell your doctor about all your current medicines. Many drugs can affect prednisone, especially: bupropion; cyclosporine; digoxin; ketoconazole; an antibiotic; control pills or hormone replacement therapy; a diuretic or 'water pill'; insulin or oral diabetes medicine; a blood thinner--warfarin, Coumadin, Jantoven; or NSAIDs (nonsteroidal anti-inflammatory drugs)--aspirin, ibuprofen (Advil, Motrin), naproxen (Aleve), celecoxib, diclofenac, indomethacin, meloxicam, and others. This list is not complete and many other drugs may affect prednisone. This includes prescription and tqhr-zwx-dmhctcx medicines, vitamins, and herbal products. Not all possible drug interactions are listed here. Where can I get more information? Your pharmacist can provide more information about prednisone. Remember, keep this and all other medicines out of the reach of children, never share your medicines with others, and use this medication only for the indication prescribed. Every effort has been made to ensure that the information provided by [employer] is accurate, up-to-date, and complete, but no guarantee is made to that effect. Drug information contained herein may be time sensitive. [employer] information has been compiled for use by healthcare practitioners and consumers in the [place] and therefore [employer] does not warrant that uses outside of the [place] are appropriate, unless specifically indicated otherwise. [employer]'s drug information does not endorse drugs, diagnose patients or recommend therapy. [employer] drug information is an informational resource designed to assist licensed healthcare practitioners in caring for their patients and/or to serve consumers viewing this service as a supplement to, and not a substitute for, the expertise, skill, knowledge and judgment of healthcare practitioners. The absence of a warning for a given drug or drug combination in no way should be construed to indicate that the drug or drug combination is safe, effective or appropriate for any given patient. [employer] does not assume any responsibility for any aspect of healthcare administered with the aid of information [employer] provides. The information contained herein is not intended to cover all possible uses, directions, precautions, warnings, drug interactions, allergic reactions, or adverse effects. If you have questions about the drugs you are taking, check with your doctor, nurse or pharmacist. Copyright 2427-2688 [employer]. Version: 10.. Revision Date: 11/26/2018. Education Materials Spinal Compression Fracture A spinal compression fracture is a collapse of the bones that form the spine (vertebrae). With this type of fracture, the vertebrae become pushed (compressed) into a wedge shape. Most compression fractures happen in the middle or lower part of the spine. What are the causes? This condition may be caused by: Thinning and loss of density in the bones (osteoporosis). This is the most common cause. A fall. A car or motorcycle accident. Cancer. Trauma, such as a heavy, direct hit to the head or back. What increases the risk? You are more likely to develop this condition if: You are 60 years or older. You have osteoporosis. You have certain types of cancer, including: ? Multiple myeloma. ? Lymphoma. ? Prostate cancer. ? Lung cancer. ? Breast cancer. What are the signs or symptoms? Symptoms of this condition include: Severe pain. Pain that gets worse over time. Pain that is worse when you stand, walk, sit, or bend. Sudden pain that is so bad that it is hard for you to move. Bending or humping of the spine. Gradual loss of height. Numbness, tingling, or weakness in the back and legs. Trouble walking. Your symptoms will depend on the cause of the fracture and how quickly it develops. How is this diagnosed? This condition may be diagnosed based on symptoms, medical history, and a physical exam. During the physical exam, your health care provider may tap along the length of your spine to check for tenderness. Tests may be done to confirm the diagnosis. They may include: A bone mineral density test to check for osteoporosis. Imaging tests, such as a spine X-ray, CT scan, or MRI. How is this treated? Treatment for this condition depends on the cause and severity of the condition. Some fractures may heal on their own with supportive care. Treatment may include: Pain medicine. Rest. A back brace. Physical therapy exercises. Medicine to strengthen bone. Calcium and vitamin D supplements. Fractures that cause the back to become misshapen, cause nerve pain or weakness, or do not respond to other treatment may be treated with surgery. This may include: Vertebroplasty. Bone cement is injected into the collapsed vertebrae to stabilize them. Balloon kyphoplasty. The collapsed vertebrae are expanded with a balloon and then bone cement is injected into them. Spinal fusion. The collapsed vertebrae are connected (fused) to normal vertebrae. Follow these instructions at home: Medicines Take nwsl-yne-ziyrgdq and prescription medicines only as told by your health care provider. Do not drive or operate heavy machinery while taking prescription pain medicine. If you are taking prescription pain medicine, take actions to prevent or treat constipation. Your health care provider may recommend that you: ? Drink enough fluid to keep your urine pale yellow. ? Eat foods that are high in fiber, such as fresh fruits and vegetables, whole grains, and beans. ? Limit foods that are high in fat and processed sugars, such as fried or sweet foods. ? Take an nufi-ctv-umyhzxl or prescription medicine for constipation. If you have a brace: Wear the brace as told by your health care provider. Remove it only as told by your health care provider. Loosen the brace if your fingers or toes tingle, become numb, or turn cold and blue. Keep the brace clean. If the brace is not waterproof: ? Do not let it get wet. ? Cover it with a watertight covering when you take a bath or a shower. Managing pain, stiffness, and swelling If directed, apply ice to the injured area: ? If you have a removable brace, remove it as told by your health care provider. ? Put ice in a plastic bag. ? Place a towel between your skin and the bag. ? Leave the ice on for 30 minutes every two hours at first. Then apply the ice as needed. Activity Rest as told by your health care provider. ? Avoid sitting for a long time without moving. Get up to take short walks every 1 2 hours. This is important to improve blood flow and breathing. Ask for help if you feel weak or unsteady. Return to your normal activities as directed by your health care provider. Ask what activities are safe for you. Do exercises to improve motion and strength in your back (physical therapy), as recommended by your health care provider. Exercise regularly as directed by your health care provider. General instructions Do not drink alcohol. Alcohol can interfere with your treatment. Do not use any products that contain nicotine or tobacco, such as cigarettes and e-cigarettes. These can delay bone healing. If you need help quitting, ask your health care provider. Keep all follow-up visits as told by your health care provider. This is important. It can help to prevent permanent injury, disability, and long-lasting (chronic) pain. Contact a health care provider if: You have a fever. You develop a cough that makes your pain worse. Your pain medicine is not helping. Your pain does not get better over time. You cannot return to your normal activities as planned or expected. Get help right away if: Your pain is very bad and it suddenly gets worse. You are unable to move any body part (paralysis) that is below the level of your injury. You have numbness, tingling, or weakness in any body part that is below the level of your injury. You cannot control your bladder or bowels. Summary A spinal compression fracture is a collapse of the bones that form the spine (vertebrae). With this type of fracture, the vertebrae become pushed (compressed) into a wedge shape. Your symptoms and treatment will depend on the cause and severity of the fracture and how quickly it develops. Some fractures may heal on their own with supportive care. Fractures that cause the back to become misshapen, cause nerve pain or weakness, or do not respond to other treatment may be treated with surgery. This information is not intended to replace advice given to you by your health care provider. Make sure you discuss any questions you have with your health care provider. Document Released: 08/18/2006 Document Revised: 10/14/2019 Document Reviewed: 09/29/2018 [employer] Patient Education 2020 [employer]. Weakness Weakness is a lack of strength. You may feel weak all over your body (generalized), or you may feel weak in one part of your body (focal). There are many potential causes of weakness. Sometimes, the cause of your weakness may not be known. Some causes of weakness can be serious, so it is important to see your doctor. Follow these instructions at home: Activity Rest as needed. Try to get enough sleep. Most adults need 7 8 hours of sleep each night. Talk to your doctor about how much sleep you need each night. Do exercises, such as arm curls and leg raises, for 30 minutes at least 2 days a week or as told by your doctor. Think about working with a physical therapist or hop strainer to help you get stronger. General instructions Take nmrl-djk-yhnzewq and prescription medicines only as told by your doctor. Eat a healthy, well-balanced diet. This includes: ? Proteins to build muscles, such as lean meats and fish. ? Fresh fruits and vegetables. ? Carbohydrates to boost energy, such as whole grains. Drink enough fluid to keep your pee (urine) pale yellow. Keep all follow-up visits as told by your doctor. This is important. Contact a doctor if: Your weakness does not get better or it gets worse. Your weakness affects your ability to: ? Think clearly. ? Do your normal daily activities. Get help right away if you: Have sudden weakness on one side of your face or body. Have chest pain. Have trouble breathing or shortness of breath. Have problems with your vision. Have trouble talking or swallowing. Have trouble standing or walking. Are light-headed. Pass out (lose consciousness). Summary Weakness is a lack of strength. You may feel weak all over your body or just in one part of your body. There are many potential causes of weakness. Sometimes, the cause of your weakness may not be known. Rest as needed, and try to get enough sleep. Most adults need 7 8 hours of sleep each night. Eat a healthy, well-balanced diet. This information is not intended to replace advice given to you by your health care provider. Make sure you discuss any questions you have with your health care provider. Document Released: 07/31/2009 Document Revised: 03/24/2019 Document Reviewed: 03/24/2019 [employer] Patient Education 2020 [employer]. Additional Information VACCINATE! IT SAVES LIVES! Members of the community who have not yet received the COVID-19 vaccine and would like to receive it can visit one of [facility] vaccine clinics. There are many vaccine clinic locations within the [facility]. For locations and available times, please visit https://gettheshot.coronavirus.o hio.gov/. It is important to note that some COVID mobile vaccine clinics are held outdoors and may be canceled in rainy or stormy conditions. To learn more about pediatric vaccinations (ages 5-11), we invite you to visit the [facility] webpage. [email or web address] To learn more about the COVID-19 vaccine, we invite you to visit the CDC website for a list of frequently asked questions.https://www.cdc.gov/co ronavirus/2019-ncov/vaccines/faq .html [facility] Patient Portal Access Instructions: Stay connected with your healthcare team and access your personal medical information anytime with the [facility] Patient Portal. Please follow the directions below to create your [facility] account: 1.Access the email account you provided upon registration to the hospital/physician office.2.Look for an invitation email from [facility].3.Open the email and access the invitation link: Accept Invitation to [facility].4.Fill in the required britt to create your account. To access your account, visit [email or web address]. Click the blue button labeled Access Patient Portal and then log in with the username and password that you created in the steps above. You will be able to view your test results, lab results, a summary of your visits, upcoming appointments and more. There is also a convenient messaging option where you can send secure messages to your provider. In addition, you will have the ability to download any documents or summaries to your computer and/or send the information securely to a physician. Remember that your healthcare information is confidential, so carefully consider who you will allow to register on the [facility] Patient Portal for access to your information. You can also access the [facility] Patient Portal on the [facility]. Simply click on Patient Portal and then log into your account. If you would like to receive a full copy of your medical records, please contact the [facility] Medical Records Department by calling [phone], Friday through Friday between 8 a.m. and 4:30 p.m. HOW TO SAFELY DISPOSE OF PRESCRIPTION MEDICATIONS Please use one of the following methods to safely dispose of your unused medications. 1.Use a drug disposal kit: the drug disposal pouch allows you to safely discard your old and unused drugs. Ask your nurse to give you one when you are discharged.2.Visit a local take-back location: Many local pharmacies and police departments have programs that collect old and unwanted prescription drugs. Call your local pharmacy or go to http://bit.ly/7Z9Yg7a to find one close to you.3.Make use of household items: Use cat litter or old coffee grounds to dispose medications if other options are not available. Mix your drugs with these household products, seal them in an airtight container and throw it into the garbage. Call [facility]: [phone] to be sure your drugs can be disposed of in this way. Some medicines may require a different approach.4.Never flush your medications down the toilet. IF YOU HAVE BEEN PRESCRIBED AN OPIOID FOR PAIN If you have been prescribed an opioid (such as hydrocodone, oxycodone or morphine), it is critical to understand the possible side effects and risks of opioid pain medications. Even when taken as directed, opioids can have several side effects including: Tolerance, meaning you might need to take more of a medication for the same pain relief. Nausea, vomiting and/or constipation. Sleepiness, dizziness, dry mouth, confusion, depression or itching. Physical dependence, meaning you have withdrawal symptoms when a medication is stopped, can develop within a few days. KNOW YOUR RESPONSIBILITIES It is important to know exactly how much and how often to take the opioid pain medications you are prescribed. Never take opioids in higher amounts or more often than prescribed. Do not combine opioids with alcohol or other drugs that cause drowsiness, such as benzodiazepines, also known as benzos, including diazepam and alprazolam, muscle relaxants or sleep aids. Never sell or share prescription opioids. This is illegal. Store opioids in a secure place and out of reach of others (including children, family, friends and visitors). The last page of this document has been signed and retained as a CHART COPY. Signatures Patient Education Materials Spinal Compression Fracture Weakness, Jsde-qh-Nynu Medication Leaflets prednisone My discharge plan and instructions have been reviewed and explained to me and I,NANCY SY understand my current condition and have read and understand these discharge instructions. I have received a written copy of the plan/instructions. If I have questions, I am aware that I should contact my doctor. Patient/Hand Striper Signature: Date/Time: Relationship to Patient: Witness Name/Signature: Date/Time: [facility] 02-23-2025 Note . MICRO - Microbiology PROCEDURE: Legionella Urine Ag [*1] SOURCE: Urine BODY SITE: COLLECTED DATE/TIME: 02/22/2025 17:56 EDT RECEIVED DATE/TIME: 02/23/2025 15:31 EDT START DATE/TIME: 02/23/2025 15:32 EDT FREE TEXT SOURCE: FINAL REPORTS Final Report [] Verified Date/Time/Personnel: 02/23/2025 15:51 EDT Presumptive negative for L. pneumophila serogroup 1 antigen in urine, suggesting no recent or current infection. Legionnaire's disease cannot be ruled out since other serogroups and species may also cause disease. Performing Locations *1: This test was performed at: [address], [facility]- , [facility] 02-23-2025 Note . MICRO - Microbiology PROCEDURE: Streptococcus Pneumoniae Urine Antig [^1 *1] SOURCE: Urine BODY SITE: COLLECTED DATE/TIME: 02/22/2025 17:56 EDT RECEIVED DATE/TIME: 02/23/2025 15:31 EDT START DATE/TIME: 02/23/2025 15:31 EDT FREE TEXT SOURCE: FINAL REPORTS Final Report [] Verified Date/Time/Personnel: 02/23/2025 15:50 EDT Presumptive negative for pneumococcal pneumonia, suggesting no current or recent pneumococcal infection. Infection due to Strep pneumoniae cannot be ruled out since the antigen present in the sample may be below the detection limit of the test. Interpretive Data ^1: Streptococcus Pneumoniae Urine Antig This test has not been evaluated on patients taking antibiotics for greater than 24 hours or on patients who have recently completed an antibiotic regimen. The accuracy of this test has not been proven in young children. 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 Bronchitis 2. Acute hypoxic respiratory failure 3. Pulmonary nodule 4. Compression fracture of L1 lumbar vertebra 5. Weakness 6. Falls Bronchitis DuoNebs 4 times daily. Prednisone 40 mg daily. Encourage incentive spirometer. Patient has expiratory wheezing in the lung bases. No fevers or leukocytosis. CTA chest showed trace right pleural effusion with adjacent right lower lobe compressive atelectasis. Will hold off on antibiotics for now. Encourage incentive spirometer. Acute hypoxic respiratory failure secondary to the above. Attempt weaning trial. Ambulate patient on room air. Pulmonary nodule Patient has a prior history of tobacco use. He quit 20 years ago. CTA of the chest showed 8 mm soft tissue nodule arising from the posterior wall of the right mainstem bronchus. Bronchoscopy was recommended. He will be referred to pulmonology in [place]. Patient and updated on results. L1 compression fracture Patient has a known L1 compression fracture from 04/2024. At that time he had an MRI done showed less than 25% height loss, trace retropulsion. Also noted stable remote compression fracture of the T11 vertebral body with posterior augmentation changes. Multilevel spondylotic changes resulting in moderate to severe foraminal narrowing including moderate bilateral at L3-L4, moderate to severe bilateral L4-L5, severe left and mild to moderate right at L5-S1. Patient is moving fairly well with therapy though not quite ready to be independent, especially with oxygen tubing. He will need to follow up with his orthospine, Dr. Torres, who he has been seeing already. Weakness and Falls-patient sustained a mechanical fall about 3 days ago. States he tripped on a pillow. Therapy consulted. DVT prophylaxis: Lovenox Code Status: Full code Plan of care discussed with patient. All questions answered. Patient verbalizes understanding is agreeable to plan of care. This dictation was performed using voice recognition software and may include grammatical and/or spelling errors. Future Appointments Appointment Date:03/09/2025 03:00:00 PM Scheduled Provider:KATHERINE BRAND Location:[facility] ([place], [place]) Appointment Type:JUNIE PERAZA Appointment Date:05/05/2025 03:00:00 PM Scheduled Provider:KATHERINE BRAND Location:[facility] ([place], [place]) Appointment Type: OV Future Scheduled Tests Laboratory* Vitamin D Level 11/03/24 * Vitamin D Level 07/25/24 [facility] 06-25-2025 Note Date of Service 02/23/2025 Chief Complaint c/o rib pain and sob s/p fall on friday. -loc. Pt states he tripped over a pillow on the floor and fell History of Present Illness 80-year-old male with past medical history significant for hypertension, BPH, anxiety, L1 compression fracture, lumbar stenosis, chronic back pain. Patient presented to [facility] emergency department 02/22/2025 with dyspnea, weakness, falls.He sustained a mechanical fall about 3 days ago. In the emergency department he was afebrile and hemodynamically stable. Oxygen saturations were 90% on room air and dropped to 86% with ambulation. White blood cell count was 12.8. Urinalysis negative for nitrates or leukocyte esterase. BMP unremarkable. BNP 303, troponin 9. COVID/flu/RSV negative. X-ray chest showed hypoventilatory changes. Partially visualized upper abdomen demonstrates gas-filled, possibly dilated bowel. Patient was subsequently admitted. CTA of the chest was done and negative for PE. This was notable for 8 mm soft tissue nodule arisingfrom the posterior wall of the right mainstem bronchus. Consideration for malignant versus benign etiology. Bronchoscopy recommended. Also noted worsening severe L1 compression deformity with retropulsion resulting in at least moderate canal stenosis. Overnight vital signs remained stable. He had not yet been trialed on room air this morning. White blood cell count 10.8. Potassium 3.4. Denies fever or chills. No headaches or dizziness. Denies any chest pain or palpitations. Admits cough, no sputum production. He chronically has postnasal drip and raspy voice. Admits wheezing. No N/V/C/D. Noloss of bowel or bladder function. No new paresthesias. Patient states that his back pain is different but not worse. Review of Systems See HPI for specific ROS. All other systems reviewed and negative. Physical Exam Vitals and Measurements T: 36.7 C (Oral) TMIN: 36.5 C (Oral) TMAX: 37.0 C (Oral) HR: 95 (Monitored) RR: 20 BP: 144/61 SpO2:95% HT: 167.6 cm WT: 75.9 kg BMI: 27.02 Weight Dosing Weight: 75.9 kg (02/22/25) Dosing Weight: 77.3 kg (02/22/25) GEN: Appears chronically ill EYES: No conjunctival erythema, drainage. EOMI EARS: Hearing grossly intact. NOSE: No nasal discharge. THROAT: Oral cavity and pharynx pink and moist. CHEST: Normal S1 and S2. Rhythm is regular. Expiratory wheezing in the bases. ABD: Positive bowel sounds x 4 quads. Soft, nondistended, nontender. EXT: No significant deformity or joint abnormality. Peripheral pulses intact. NEURO: Sensation grossly intact SKIN: Skin color normal PSYCH: The mental examination revealed the patient was alert and oriented x 4, forgetful Lab Results 02/23 05:52 WBC: 10.8 Hgb: 12.9 L Hct: 37.0 L Platelet: 204 Neutrophil %: 82.0 H Glucose Level: 107 Sodium Level: 144 Potassium Level: 3.4 L BUN: 25 H Creatinine Lvl (s): 0.67 02/22 17:56 WBC: 12.8 H Hgb: 14.1 Hct: 41.7 Platelet: 240 Neutrophil %: 82.0 H Glucose Level: 128 H Sodium Level: 142 Potassium Level: 3.7 BUN: 29 H Creatinine Lvl (s): 0.77 Imaging Results and Diagnostics XR Abdomen AP Result Date: February 23, 2025 Verified By: BONI GOODSON, DERREK Chavez CLINICAL STATEMENT: IMPRESSION: Nonspecific gaseous distension of the small and large bowel CT Angiography Chest w/ Contrast Result Date: February 22, 2025 Verified By: CLINICAL STATEMENT: IMPRESSION: XR Chest 1 View Result Date: February 22, 2025 Verified By: FAM WAGNER DO CLINICAL STATEMENT: IMPRESSION: Hypoventilatory changes with no definite acute radiographic findings. ATTENDING ADDENDUM: PARTIALLY VISUALIZED UPPER ABDOMEN DEMONSTRATES GAS-FILLED POSSIBLY DILATEDBOWEL. IF THERE ARE REFERABLE SYMPTOMS, CONSIDER RADIOGRAPH OR CT FORFURTHER EVALUATION. Assessment/Plan 1. Bronchitis 2. Acute hypoxic respiratory failure 3. Pulmonary nodule 4. Compression fracture of L1 lumbar vertebra 5. Weakness 6. Falls Bronchitis DuoNebs 4 times daily. Prednisone 40 mg daily. Encourage incentive spirometer. Patient has expiratory wheezing in the lung bases. No fevers or leukocytosis. CTA chest showed trace right pleural effusion with adjacent right lower lobe compressive atelectasis. Will hold off on antibiotics for now. Encourage incentive spirometer. Acute hypoxic respiratory failure secondary to the above. Attempt weaning trial. Ambulate patient on room air. Pulmonary nodule Patient has a prior history of tobacco use. He quit 20 years ago. CTA of the chestshowed 8 mm soft tissue nodule arising from the posterior wall of the right mainstem bronchus. Bronchoscopy was recommended. He will be referred to pulmonology in [place]. Patient and updated onresults. L1 compression fracture Patient has a known L1 compression fracture from 04/2024. At that time he had an MRI done showed less than 25% height loss, trace retropulsion. Also noted stable remote compression fracture of the T11 vertebral body with posterior augmentation changes. Multilevel spondylotic changes resulting in moderate to severe foraminal narrowing including moderate bilateral at L3-L4, moderate to severe bilateral L4-L5, severe left and mild to moderate right at L5-S1. Patient is moving fairly well with therapy though not quite ready to be independent, especially with oxygen tubing. He will need to follow up with his orthospine, Dr. Torres, who he has been seeing already. Weakness and Falls-patient sustained a mechanical fall about 3 days ago. States he tripped on a pillow. Therapy consulted. DVT prophylaxis: Lovenox Code Status: Full code Plan of care discussed with patient. All questions answered. Patient verbalizes understanding is agreeable to plan of care. This dictation was performed using voice recognition software and may include grammatical and/or spelling errors. Problem List/Past Medical History Ongoing Anemia Anxiety Balance problem BPH (benign prostatic hyperplasia) Burst fracture of lumbar vertebra Compression fracture of T11 vertebra Generalized anxiety disorder Hypertension Insomnia Itchy scalp Osteoporosis Resting tremor Screening for colon cancer Screening for osteoporosis Screening for prostate cancer Urinary incontinence Vitamin D deficiency Well adult exam Procedure/Surgical History Cholecystectomy: 09/25/18 Kyphoplasty of fracture of thoracic spine Colonoscopy Wrist joint Tonsillectomy Appendectomy Medications Home Medications (15) Active acetaminophen 500 mg oral tablet , PRN, Oral, q6hr amLODIPine 10 mg oral tablet 10 mg = 1 tab(s), Oral, qDay busPIRone 30 mg oral tablet 30 mg = 1 tab(s), Oral, BID calcium carbonate 500 mg (200 mg elemental calcium) oral tablet, chewable 1,000 mg = 2 tab(s), Chewed, qDay carvedilol 12.5 mg oral tablet 12.5 mg = 1 tab(s), Oral, BID Flomax 0.4 mg oral capsule 0.4 mg = 1 cap(s), Oral, qDay hydrOXYzine hydrochloride 25 mg oral tablet 25 mg = 1 tab(s), PRN, Oral, QID LORazepam 1 mg oral tablet 1 mg = 1 tab(s), PRN, Oral, qDay losartan 100 mg oral tablet 100 mg = 1 tab(s), Oral, qDay melatonin 5 mg oral tablet 5 mg = 1 tab(s), PRN, Oral, qHS meloxicam 7.5 mg oral tablet 7.5 mg = 1 tab(s), Oral, qDay Paxil 40 mg oral tablet 40 mg = 1 tab(s), Oral, Daily Prolia 60 mg/mL subcutaneous solution 60 mg = 1 mL, Subcutaneous, q6mo Vitamin B12 1000 mcg oral tablet 1,000 mcg = 1 tab(s), Oral, qDay Vitamin D3 1250 mcg (50,000 intl units) oral capsule 1,250 mcg = 1 cap(s), Oral, qWeek Allergies Sallie Nausea Claritin Slo-Niacin atenolol buPROPion cyclobenzaprine Drowsiness erythromycin Social History Smoking Status - 05/26/2014 Current every day smoker Alcohol - Low Risk, 08/26/2018 Use: Current. 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 Days per week: 1-2 times/week., 03/11/2020 Home/Environment OTher risks in environment: no current smoke exposure. 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 Current Home Treatments Blood Pressure monitoring, cane multiple, grab bars in shower and bed, pulse ox. Spouse Name: Leida (10/16/1947). Marital Status: ., 02/22/2025 Nutrition/Health Caffeine intake amount: 4 servings daily., 03/16/2019 Sexual - No Risk, 07/03/2018 Substance Abuse - Denies Substance Abuse, 08/26/2018 Use: Never., 09/16/2018 Tobacco - Denies Tobacco Use, 08/26/2018 Nicotine Use: Former smoker, quit more than 30 days ago. Type: Pipe. Number of years: 40. Stopped at age: 71 Years., 02/10/2025 Family History Alcohol abuse: Father. Autism: Son. COPD - Chronic obstructive pulmonary disease: Sister. Cirrhosis of liver: Father. Hepatic failure: Mother. Hyperlipidaemia: Sister. Lymphoma: Brother. Prostate cancer: Brother. Stable: Sister. Health Status Family Member(s) Family Member(s) Relationship: Mother, Name: Alvaro, Age: 77 Years, Cause: Headache failure Relationship: Father, Name: Alvaro, Age: 62 Years, Cause: Cirrhosis of the liver Relationship: Maternal Grandmother, Age: 69 Years, Cause: Parkinson Relationship: Paternal Grandfather, Age: 84 Years, Cause: Old age Relationship: Maternal Grandfather, Age: 91 Years Relationship: Paternal Grandfather, Age: 85 Years, Cause: Old age Relationship: Brother, Name: Alvaro, #1, Age: 70 Years, Cause: Suicide, depresion,prostate cancer Immunizations pneumococcal 13-valent conjugate vaccine: 0 unknown unit (11/28/14) pneumococcal 23-valent vaccine(Pneumovax: 0 unknown unit (10/28/12) SARS-CoV-2 (COVID-19) mRNA-1273 vaccine: 50 mcg (01/10/22) SARS-CoV-2 (COVID-19) mRNA-1273 vaccine: 0.25 unknown unit (07/19/21) SARS-CoV-2 (COVID-19) mRNA-1273 vaccine: 0.5 unknown unit (11/29/20) SARS-CoV-2 (COVID-19) mRNA-1273 vaccine: 0.5 unknown unit (11/01/20) tetanus/diphtheria/pertussMUL.ORD![id number]: 0.5 mL (04/24/23) Code Status Code Status - Ordered -- 02/22/25 20:25:00 EDT, Full Code, Constant Order Digitally Signed by THAO MERINO APRN-BERTHA on 02/23/2025 11:54 AM Digitally Signed by PAULINO MATTSON MD [facility]06-25-2025 Note* Exam Date Time Procedure Performing Provider Status 02/23/25 10:27 AM XR Abdomen AP DERREK JOHN MD ; Auth (Verified) [id number] ORIGINAL EXAMINATION: ONE SUPINE XRAY VIEW(S) OF THE ABDOMEN02/23/2025 10:28 am ABDOMEN 1 VIEW/KUB COMPARISON: None HISTORY: ORDERING SYSTEM PROVIDED HISTORY: Reason for Exam: Dilated loops of bowel on CTA chest FINDINGS: Moderate small and large bowel gas visualized. Numerous tubes/wires project over the upper abdomen and are presumably extrinsic to the patient. Augmentation cement seen in the lower thoracic spine. Contrast material seen in the urinary bladder. Degenerative changes seen of the hips and spine. Enthesophytes noted in the pelvis. IMPRESSION: Nonspecific gaseous distension of the small and large bowel Interpreted by: Derrek John MD Preliminary Report By: Derrek John MD Electronically signed By Derrek John MD Dictated Date: 02/23/2025 11:01:16 AM Prelim Date: 02/23/2025 11:03:02 AM Sign Date: 02/23/2025 11:03:02 AM Ordering Provider[facility]* Exam Date Time Procedure Performing Provider Status 02/22/25 10:[address] Angiography Chest w/ Contrast FAM ROBERT DO; Auth (Verified) [id number] ORIGINAL EXAMINATION: CTA OF THE CHEST 02/22/2025 10:28 pm TECHNIQUE: CTA of the chest was performed after the administration of intravenous contrast. Multiplanar reformatted images are provided for review. MIP images are provided for review. Automated exposure control, iterative reconstruction, and/or weight based adjustment of the mA/kV was utilized to reduce the radiation dose to as low as reasonably achievable. COMPARISON: One view chest radiograph from same day, MRI lumbar spine 04/23/2024 CTA chest 10/02/2018 HISTORY: ORDERING SYSTEM PROVIDED HISTORY: Reason for Exam: SOB, hypoxia, evaluate for PE FINDINGS: Age indeterminate chronic appearing fracture of the left lateral 6th, 7th, and 8th ribs. 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 Multilevel degenerative changes of the visualized spine. No acute soft tissue abnormality. Mildly dilated fluid-filled loops of proximal small bowel measuring up to 3.2 cm (image 287 of series 2). Size prominent fluid-filled loops of transverse colon and proximal ascending colon are noted measuring up to 6.3 cm. 1.4 cm left thyroid lobe hypodense nodule, not requiring further follow-up per size criteria.. No pathologically enlarged supraclavicular, axillary, mediastinal or hilar lymph nodes. The heart is normal size. The coronary arteries are atherosclerotic. No pericardial effusion. The thoracic aorta is normal caliber and atherosclerotic. The pulmonary arteries are adequately opacified. No pulmonary embolism. The main pulmonary artery is normal in caliber. 8 mm mass arising from the posterior wall the right mainstem bronchus is new from prior exam. Scattered pleuroparenchymal scarring. Curvilinear consolidation against the left major fissure within the posterior left upper lobe and anterior left lower lobe, new from prior. Trace right pleural effusion with adjacent right lower lobe compressive atelectasis. No pneumothorax, focal consolidation, left pleural effusion, or suspicious pulmonary nodule. IMPRESSION: No pulmonary embolism. Curvilinear consolidation within the left lung against the major fissure, likely represents dependent atelectasis although pneumonia is not excluded. Trace right pleural effusion with layering subsegmental opacities, likely compressive atelectasis. 8 mm mass arising from the posterior wall of the right mainstem bronchus for which benign and malignant etiologies cannot be entirely excluded. Consider repeat CT chest preceded by vigorous coughing (to exclude the possibility of mucous) versus bronchoscopy for further evaluation. Dilated loops of partially visualized small bowel are present in the visualized upper abdomen, which could represent obstruction or ileus. Recommend further evaluation with CT abdomen pelvis. Worsening compression of a severe L1 burst fracture with retropulsion resulting in at least moderate canal stenosis. I have reviewed the resident's preliminary report and agree with findings and impression. Interpreted by: Fam Wagner Preliminary Report By: Araceli Berumen Electronically signed By Fam Wagner Dictated Date: 02/22/2025 11:42:14 PM Prelim Date: 02/23/2025 12:07:36 AM Sign Date: 02/23/2025 4:22:10 PM Ordering Provider: OSMEL BURRELL Interpreted by: Fam Wagner Preliminary Report By: Araceli Berumen Electronically signed By Fam Wagner Dictated Date: 02/22/2025 11:42:14 PM Prelim Date: 02/23/2025 12:07:36 AM Sign Date: 02/23/2025 4:22:10 PM Ordering Provider: OSMEL BURRELL [facility]06-24-2025 HCoV HKU1 RNA DARYA+non-probe Ql (Nph) Not Detected *NA* (02/22/25 6:51 PM)AH Auto Viro/Sero [id number] Note* Exam Date Time Procedure Performing Provider Status 02/22/25 6:37 PM XR Chest 1 View FAM WAGNER DO; Auth (Verified) [id number] ORIGINAL EXAMINATION: ONE XRAY VIEW OF THE CHEST02/22/2025 6:37 pm COMPARISON: 04/22/2024. HISTORY: ORDERING SYSTEM PROVIDED HISTORY: Reason for Exam: SOB FINDINGS: The cardiomediastinal contours are stable. Atherosclerosis of the aorta. Low lung volumes with associated bronchovascular crowding. Linear opacity at the left lung base likely represents subsegmental atelectasis. Vertical lucent line extending through the right lung with lung markings beyond it likely represents a skin fold. No focal consolidation, large pleural effusion, or visible pneumothorax. No acute osseous abnormality. Degenerative changes of the spine and shoulders. IMPRESSION: Hypoventilatory changes with no definite acute radiographic findings. ATTENDING ADDENDUM: PARTIALLY VISUALIZED UPPER ABDOMEN DEMONSTRATES GAS-FILLED POSSIBLY DILATED BOWEL. IF THERE ARE REFERABLE SYMPTOMS, CONSIDER RADIOGRAPH OR CT FOR FURTHER EVALUATION. Interpreted by: Fam Wagner Preliminary Report By: Araceli Berumen Electronically signed By Fam Wagner Dictated Date: 02/22/2025 7:08:15 PM Prelim Date: 02/22/2025 7:11:47 PM Sign Date: 02/22/2025 7:30:02 PM Ordering Provider: BRYN CONTRERAS [facility]06-24-2025 Note* Exam Date Time Procedure Performing Provider Status 02/22/25 5:59 PM EKG [ED AOH] - CV BRYN CONTRERAS DO; (Verified) ECG Final Report Sinus tachycardia Multiple premature complexes, vent & supraven Borderline T abnormalities, inferior leads Electronic Signature: BRYN CONTRERAS DO 02/22/2025 18:02:45 [facility]12-18-2024 Hospital Discharge instructions Patient Education 08/18/2024 15:45:08 Fall, Mechanical Mechanical Fall You have had a fall today. It appears that the cause is what is called mechanical. That means that you slipped, tripped, or lost your balance. If your fall had been because of fainting or a seizure, you might need other tests. It is normal to feel sore and tight in your muscles and back the next day, and not just the musclesyou injured at first. Remember, all the parts of your body are connected, so while initially one area hurts, the next day another may hurt. Also, when you injure yourself, it causes inflammation, which then causes the muscles to tighten up and hurt more. After the initial worsening, it should gradually improve over the next few days. Do report more severe pain. Even without a definite head injury, you can still get a concussion from your head suddenly jerkingforward, backward, or sideways when falling. Concussions and even bleeding can still happen, especially if you have had a recent injury or take blood thinner medicine. It is not unusual to have a mild headache and feel tired and even nauseous or dizzy. Home care Rest today and go back to your normal activities when you are feeling back to normal. If you were injured during the fall, follow the advice from your healthcare provider regarding careof your injury. At first, do not try to stretch out the sore spots. If there is a strain, stretching may make it worse. Massage may help relax the muscles without stretching them. You can use an ice pack or cold compress on and off to the sore spots 10 to 20 minutes at a time, as often as you feel comfortable. This may help reduce the inflammation, swelling and pain. If you have any scrapes or abrasions, they usually heal within 10 days. It is important to keep theabrasions clean while they initially start to heal. However, an infection may happen even with proper care, so watch for early signs of infection (such as warmth, redness, or swelling). Medicines Talk to your healthcare provider before taking new medicines, especially if you have other medical problems or are taking other medicines. If you need anything for pain, you can take acetaminophen or ibuprofen, unless you were given a different pain medicine to use. Talk with your healthcare provider before using these medicines if you have chronic liver or kidney disease, or ever had a stomach ulcer or gastrointestinal bleeding, or are taking blood thinner medicines. Be careful if you are given prescription pain medicines, narcotics, or medicine for muscle spasm. They can make you sleepy and dizzy, and can affect your coordination, reflexes, and judgment. Do not drive or do work where you can injure yourself when taking them. Fall prevention Fix, remove, or replace anything that caused your fall. Make your home safe by keeping walkways clear of objects you may trip over. Use nonslip pads under rugs. Don't use small area rugs or throw rugs. Don't walk in poorly lit areas. Don't stand on chairs or wobbly ladders. Use caution when reaching overhead or looking upward. This position can cause a loss of balance. Be sure your shoes fit properly, have nonslip bottoms and are in good condition. Be cautious when going up and down curbs, and walking on uneven sidewalks. If your balance is poor, consider using a cane or walker. Stay as active as you can. Balance, flexibility, strength, and endurance all come from exercise. They all play a role in preventing falls. If you have pets, know where they are before you stand up or walk so you don't trip over them. Limit alcohol intake. Alcohol can cause balance problems and increase the risk of falls. Use night lights. Have your eyes tested to be sure you are seeing well, even if you already wear glasses. Follow-up Follow up with your healthcare provider, or as advised. If X-rays or CT scans were done, you will be notified if there is a change in the reading, especially if it affects treatment. Call 911 Call 911 if any of these happen: Trouble breathing Confused or difficulty arousing Fainting or loss of consciousness Rapid or very slow heart rate Seizure Difficulty with speech or vision, weakness of an arm or leg Difficulty walking or talking, loss of balance, numbness or weakness in one side of your body, or facial droop When to seek medical advice Call your healthcare provider right away if any of these happen: Repeated mechanical falls, or unexplained falls Dizziness Severe headache Blood in vomit, stools (black or red color) 9313-2820 [employer]. [address] [place] [address], [place] [address]. All rights reserved. This information is not intended as a substitute for professional medical care. Always follow yourhealthcare professional's instructions. Follow Up Care 08/18/2024 14:28:40 With:KATHERINE BRAND APRN-VEGETABLE LOADER MACHINE OPERATOR Address: [address] [facility] [place] [phone] When:2-4 days [facility] 12-18-2024 Note Discharge Instructions Thank you for allowing [facility] to assist you with your healthcare needs. The following is importantdischarge information regarding your hospital visit. Diagnosis from Today's Visit Fall What to Do Next Instructions from Your Care Team No qualifying data available. Post Acute Orders No qualifying data available. You Need to Schedule the Following Appointments Follow Up with KATHERINE BRAND When:Within 2-4 days Where:[address] [facility] [place] [phone] Allergies Sallie Nausea Claritin Slo-Niacin atenolol buPROPion cyclobenzaprine Drowsiness erythromycin Medications Please ask your primary doctor or pharmacist before taking any other medication not listed, including over the counter drugs, herbal medications, vitamins and or supplements as they may interact withyour home medications. What How Much When Why Instructions Last Dose Unchanged acetaminophen (acetaminophen 500 mg oral tablet) by mouth Every 6 hours as needed for as needed for pain Unchanged alendronate (alendronate 70 mg oral tablet) 1 tab(s) by mouth Every week Duration: 84 Days Unchanged amLODIPine (amLODIPine 10 mg oral tablet) 1 tab(s) by mouth Once a day Unchanged busPIRone (busPIRone 15 mg oral tablet) 1 tab(s) by mouth Two (2) times a day Duration: 100 Days Unchanged carvedilol (carvedilol 12.5 mg oral tablet) 1 tab(s) by mouth Two (2) times a day Unchanged cholecalciferol (Vitamin D3 1250 mcg (50,000 intl units) oral capsule) 1 cap by mouth Every week Unchanged cyanocobalamin (Vitamin B12 1000 mcg oral tablet) 1 tab(s) by mouth Once a day Unchanged LORazepam (LORazepam 1 mg oral tablet) 1 tab(s) by mouth Three (3) times a day as needed for as needed for anxiety Anxiety Duration: 30 Days Unchanged losartan (losartan 100 mg oral tablet) 1 tab(s) by mouth Once a day Duration: 90 Days Unchanged melatonin (melatonin 5 mg oral tablet) 1 tab(s) by mouth Daily at bedtime as needed for as needed for insomnia Unchanged PARoxetine (Paxil 40 mg oral tablet) 1 tab(s) by mouth Every day Duration: 90 Days Unchanged tamsulosin (Flomax 0.4 mg oral capsule) 1 cap by mouth Once a day Please take this list to your next doctor s visit. Bring all medications you take, including over the counter medications, herbals and other supplements with you to your doctor s visit. Patients and families are reminded to discard old lists and to update any records with all medication providers or retail pharmacies. Education Materials Mechanical Fall You have had a fall today. It appears that the cause is what is called mechanical. That means that you slipped, tripped, or lost your balance. If your fall had been because of fainting or a seizure, you might need other tests. It is normal to feel sore and tight in your muscles and back the next day, and not just the musclesyou injured at first. Remember, all the parts of your body are connected, so while initially one area hurts, the next day another may hurt. Also, when you injure yourself, it causes inflammation, which then causes the muscles to tighten up and hurt more. After the initial worsening, it should gradually improve over the next few days. Do report more severe pain. Even without a definite head injury, you can still get a concussion from your head suddenly jerkingforward, backward, or sideways when falling. Concussions and even bleeding can still happen, especially if you have had a recent injury or take blood thinner medicine. It is not unusual to have a mild headache and feel tired and even nauseous or dizzy. Home care Rest today and go back to your normal activities when you are feeling back to normal. If you were injured during the fall, follow the advice from your healthcare provider regarding careof your injury. At first, do not try to stretch out the sore spots. If there is a strain, stretching may make it worse. Massage may help relax the muscles without stretching them. You can use an ice pack or cold compress on and off to the sore spots 10 to 20 minutes at a time, as often as you feel comfortable. This may help reduce the inflammation, swelling and pain. If you have any scrapes or abrasions, they usually heal within 10 days. It is important to keep theabrasions clean while they initially start to heal. However, an infection may happen even with proper care, so watch for early signs of infection (such as warmth, redness, or swelling). Medicines Talk to your healthcare provider before taking new medicines, especially if you have other medical problems or are taking other medicines. If you need anything for pain, you can take acetaminophen or ibuprofen, unless you were given a different pain medicine to use. Talk with your healthcare provider before using these medicines if you have chronic liver or kidney disease, or ever had a stomach ulcer or gastrointestinal bleeding, or are taking blood thinner medicines. Be careful if you are given prescription pain medicines, narcotics, or medicine for muscle spasm. They can make you sleepy and dizzy, and can affect your coordination, reflexes, and judgment. Do not drive or do work where you can injure yourself when taking them. Fall prevention Fix, remove, or replace anything that caused your fall. Make your home safe by keeping walkways clear of objects you may trip over. Use nonslip pads under rugs. Don't use small area rugs or throw rugs. Don't walk in poorly lit areas. Don't stand on chairs or wobbly ladders. Use caution when reaching overhead or looking upward. This position can cause a loss of balance. Be sure your shoes fit properly, have nonslip bottoms and are in good condition. Be cautious when going up and down curbs, and walking on uneven sidewalks. If your balance is poor, consider using a cane or walker. Stay as active as you can. Balance, flexibility, strength, and endurance all come from exercise. They all play a role in preventing falls. If you have pets, know where they are before you stand up or walk so you don't trip over them. Limit alcohol intake. Alcohol can cause balance problems and increase the risk of falls. Use night lights. Have your eyes tested to be sure you are seeing well, even if you already wear glasses. Follow-up Follow up with your healthcare provider, or as advised. If X-rays or CT scans were done, you will be notified if there is a change in the reading, especially if it affects treatment. Call 911 Call 911 if any of these happen: Trouble breathing Confused or difficulty arousing Fainting or loss of consciousness Rapid or very slow heart rate Seizure Difficulty with speech or vision, weakness of an arm or leg Difficulty walking or talking, loss of balance, numbness or weakness in one side of your body, or facial droop When to seek medical advice Call your healthcare provider right away if any of these happen: Repeated mechanical falls, or unexplained falls Dizziness Severe headache Blood in vomit, stools (black or red color) [phone] [employer]. [address] [place] [address]. All rights reserved. This information is not intended as a substitute for professional medical care. Always follow yourhealthcare professional's instructions. Additional Information VACCINATE! IT SAVES LIVES! Members of the community who have not yet received the COVID-19 vaccine and would like to receive it can visit one of [facility] vaccine clinics. There are many vaccine clinic locations within the [facility]. For locations and available times, please visit www.[email or web address].[email or web address]/. It is important to note that some COVID mobile vaccine clinics are held outdoors and may be canceled in rainy or stormy conditions. To learn more about pediatric vaccinations (ages 5-11), we invite you to visit the [facility] webpage. [email or web address]/[email or web address] [email or web address] learn more about the COVID-19 vaccine, we invite you to visit the CDC website for a list of frequently asked questions. https://www.cdc.gov/coronavirus/2019-ncov/vaccines/faq.html [facility] Patient Portal Access Instructions: Stay connected with your healthcare team and access your personal medical information anytime with the [facility] Patient Portal. If you would like a full copy of your medical records please contact the [facility] Medical Records Department Friday through Friday between 8a.m. and 4:30p.m. Please follow the directions below to access the portal: 1.Access the email account you provided upon registration to the hospital.2.Look for an invitation email from [facility].3.Open the email and access the invitation link: Accept Invitation to [facility]4.Fill in the required britt to create your account. Sign into [email or web address] with your username and password that you created in the above steps to stay up to date. You can then view a summary of results, a summary of your visits, and the ability to download your summaries to your computer or send the information securely to a physician. Remember that your healthcare information is confidential, so carefully consider who you will allow to register on the [facility] Patient Portal for access to your information. You can also access the [facility] Patient Portal on the [email or web address] dylan. Simply click on Health Records under [employer] and then click on the [employer] logo. HOW TO SAFELY DISPOSE OF PRESCRIPTION MEDICATIONS Please use one of the following methods to safely dispose of your unused medications. 1.Use a drug disposal kit: the drug disposal pouch allows you to safely discard your old and unuseddrugs. Ask your nurse to give you one when you are discharged.2.Visit a local take-back location: Many local pharmacies and police departments have programs that collect old and unwanted prescriptiondrugs. Call your local pharmacy or go to http://[place].Moat/0P6En6p to find one close to you.3.Make use of household items: Use cat litter or old coffee grounds to dispose medications if other options arenot available. Mix your drugs with these household products, seal them in an airtight container andthrow it into the garbage. Call [facility]: [phone] to be sure your drugs can be disposed of in this way. Some medicines may require a different approach.4.Never flush your medications down the toilet. IF YOU HAVE BEEN PRESCRIBED AN OPIOIDS FOR PAIN If you have been prescribed an opioid (such as hydrocodone, oxycodone or morphine), it is critical to understand the possible side effects and risks of opioid pain medications. Even when taken as directed, opioids can have several side effects including: Tolerance, meaning you might need to take more of a medication for the same pain relief. Nausea, vomiting and/or constipation. Sleepiness, dizziness, dry mouth, confusion, depression or itching. Physical dependence, meaning you have withdrawal symptoms when a medication is stopped ? this can develop within a few days. KNOW YOUR RESPONSIBILITIES It is important to know exactly how much and how often to take the opioid pain medications you are prescribed. Never take opioids in higher amounts or more often than prescribed. Do not combine opioids with alcohol or other drugs that cause drowsiness, such as benzodiazepines, also known as benzos,including diazepam and alprazolam, muscle relaxants or sleep aids. Never sell or share prescriptionopioids. This is illegal. Store opioids in a secure place and out of reach of others (including children, family, friends and visitors). The last page(s) of this document has been signed and retained as a CHART COPY Signatures Patient Education Materials Fall, Mechanical Medication Leaflets My discharge plan and instructions have been reviewed and explained to me and I,ALVARO NANCY Shahla understand my current condition and have read and understand these discharge instructions. I have received a written copy of the plan/instructions. If I have questions, I am aware that I should contact my doctor. Patient/Hand Striper Signature: Date/Time: Relationship to Patient: Witness Name/Signature: Date/Time: [facility]12-18-2024 Note* Exam Date Time Procedure Performing Provider Status 08/18/24 3:07 PM XR Ribs 2 Views Left /PA Chest (AO) Auth (Verified) [id number] ORIGINAL EXAMINATION: 2 XRAY VIEWS OF LEFT RIBS WITH 1 XRAY VIEWS OF THE CHEST 08/18/2024 3:08 pm COMPARISON: Chest x-ray April 22, 2024. HISTORY: ORDERING SYSTEM PROVIDED HISTORY: Reason for Exam: fall FINDINGS: The cardiomediastinal silhouette is within normal limits. There is no pleural effusion, focal consolidation, or pneumothorax. There is no central vascular congestion. No displaced rib fractures are seen. No acute osseous abnormality. Augmentation cement is noted within the T12 vertebral body. IMPRESSION: No evidence of displaced rib fracture. No acute cardiopulmonary process I have personally reviewed the images of this examination and agree with the resident's findings and interpretation. Interpreted by: Vasu Hathaway Preliminary Report By: Kanu North Electronically signed By Vasu Hathaway Dictated Date: 08/18/2024 3:20:05 PM Prelim Date: 08/18/2024 3:31:12 PM Sign Date: 08/18/2024 3:31:12 PM Ordering Provider: [facility]12-18-2024 Note* Exam Date Time Procedure Performing Provider Status 08/18/24 3:[address] Head or Brain w/o Contrast Auth (Verified) [id number] ORIGINAL EXAMINATION: CT OF THE HEAD WITHOUT CONTRAST 08/18/2024 3:07 pm TECHNIQUE: CT of the head was performed without the administration of intravenous contrast. Automated exposure control, iterative reconstruction, and/or weight based adjustment of the mA/kV was utilized to reduce the radiation dose to as low as reasonably achievable. COMPARISON: None. HISTORY: ORDERING SYSTEM PROVIDED HISTORY: Reason for Exam: pain FINDINGS: BRAIN/VENTRICLES: There is no acute intracranial hemorrhage, mass effect or midline shift. No abnormal extra-axial fluid collection. The garcia-white differentiation is maintained without evidence of an acute infarct. Mild generalized volume loss is appreciated with associated prominence of the sulci and ventricles. There is no evidence of hydrocephalus. ORBITS: The visualized portion of the orbits demonstrate no acute abnormality. SINUSES: The visualized paranasal sinuses and mastoid air cells demonstrate no acute abnormality. SOFT TISSUES/SKULL: No acute abnormality of the visualized skull. Small left frontal soft tissue injury.. IMPRESSION: No acute intracranial abnormality. Suspect small left frontal soft tissue injury. Interpreted by: Ephraim Quinones Preliminary Report By: Ephraim Quinones Electronically signed By Ephraim Quinones Dictated Date: 08/18/2024 3:09:42 PM Prelim Date: 08/18/2024 3:16:57 PM Sign Date: 08/18/2024 3:16:57 PM Ordering Provider: [facility]12-18-2024 Note* Exam Date Time Procedure Performing Provider Status 08/18/24 3:06 PM XR Elbow Minimum 3 Views Left Auth (Verified) [id number] ORIGINAL EXAMINATION: THREE XRAY VIEWS OF THE LEFT ELBOW 08/18/2024 3:06 pm COMPARISON: None. HISTORY: ORDERING SYSTEM PROVIDED HISTORY: Reason for Exam: fall FINDINGS: No acute fracture or dislocation is seen. There is mild soft tissue edema in around the elbow. Joint spaces appear maintained. No aggressive osseous lesion is seen. No large joint effusion. IMPRESSION: No acute fracture or dislocation is seen. Mild soft tissue swelling is noted. I have personally reviewed the images of this examination and agree with the resident's findings and interpretation. Interpreted by: Vasu Hathaway Preliminary Report By: Kanu North Electronically signed By Vasu Hathaway Dictated Date: 08/18/2024 3:16:46 PM Prelim Date: 08/18/2024 3:28:37 PM Sign Date: 08/18/2024 3:28:37 PM Ordering Provider: [facility]12-06-2024 Note. MICRO - Microbiology PROCEDURE: Urine Culture [*1] SOURCE: Urine, Clean Catch BODY SITE: COLLECTED DATE/TIME: 08/05/2024 15:13 EST RECEIVED DATE/TIME: 08/05/2024 19:03 EST START DATE/TIME: 08/05/2024 19:03 EST FREE TEXT SOURCE: FINAL REPORTS Final Report [] Verified Date/Time/Personnel: 08/06/2024 14:49 EST 10,000 - 50,000 cfu/ml Mixed growth consistent with normal urogenital yobany. Performing Locations *1: This test was performed at: [facility], [address] [place] [address], [facility] , [facility]10-11-2024 Note ORIGINAL EXAMINATION: BONE DENSITOMETRY 06/11/2024 2:22 pm TECHNIQUE: A bone density dual x-ray absorptiometry (DEXA) scan was performed of the axial (e.g. hips, spine) and/or appendicular (e.g. radius) skeleton as appropriate. COMPARISON: None. HISTORY: ORDERING SYSTEM PROVIDED HISTORY: Reason for Exam: Osteoporosis Screening screening multiple spine fx and kyphoplasty FINDINGS: T Score Left Femoral Neck: -1.9 Left Femoral Neck: 0.678 (g/cm2) T Score Left Hip: -2.0 Left Hip: 0.738 (g/cm2) T Score Left Forearm: -2.8 Left Forearm: 0.666 (g/cm2) IMPRESSION: Osteoporosis by WHO criteria. World Health Organization criteria: (Comparing with young normal sex matched population) - Normal: T-score at or above -1 SD (standard deviation) - Osteopenia: T-score between -1 and -2.5 SD - Osteoporosis: T-score at or below -2.5 SD The NOF recommends that FDA-approved medical therapies be considered in post-menopausal women and men age >/= 50 years with a: * Hip or vertebral fracture, or * T-score of /= 20% for major osteoporotic fractures or * >/= 3% for hip fractures All treatment decisions require clinical judgement and consideration of individual patient factors, including patient preferences, comorbidities, previous drug use, risk factors not captured in the FRAX registered model (e.g., frailty, falls, vitamin D deficiency, increased bone turnover, interval significant decline in bone density) and possible under- or over-estimation of fracture risk by FRAX. Interpreted by: Jeremiah Jha DO Preliminary Report By: Jeremiah Jha DO Electronically signed By Jeremiah Jha DO Dictated Date: 06/11/2024 3:00:53 PM Prelim Date: 06/11/2024 3:10:47 PM Sign Date: 06/11/2024 3:10:47 PM Ordering Provider: [facility]08-31-2024 Hospital Discharge instructions Patient Education 05/01/2024 12:03:53 Lumbar Spine Fracture Lumbar Spine Fracture A lumbar spine fracture is a break in one of the bones of the lower back. Lumbar spine fractures can vary from mild to severe. The most severe types are those that: Cause the broken bones to move out of place (unstable). Injure or press on the spinal cord. During recovery, it is normal to have pain and stiffness in the lower back for weeks. What are the causes? This condition may be caused by: A fall. A car accident. A gunshot wound. A hard, direct hit to the back. What increases the risk? You are more likely to develop this condition if: You are in a situation that could result in a fall or other violent injury. You have a condition that causes weakness in the bones (osteoporosis). What are the signs or symptoms? The main symptom of this condition is severe pain in the lower back. If a fracture is complex or severe, there may also be: A misshapen or swollen area on the lower back. Limited ability to move an area of the lower back. Inability to empty the bladder (urinary retention). Loss of bowel or bladder control (incontinence). Loss of strength or sensation in the legs, feet, and toes. Inability to move (paralysis). How is this diagnosed? This condition is diagnosed based on: A physical exam. Symptoms and what happened just before they developed. The results of imaging tests, such as an X-ray, CT scan, or MRI. If your nerves have been damaged, you may also have other tests to find out the extent of the damage. How is this treated? Treatment for this condition depends on how severe the injury is. Most fractures can be treated with: A back brace. Bed rest and activity restrictions. Pain medicine. Physical therapy. Fractures that are complex, involve multiple bones, or make the spine unstable may require surgery.Surgery is done: To remove pressure from the nerves or spinal cord. To stabilize the broken pieces of bone. Follow these instructions at home: Medicines Take xtot-qhe-vqgoykc and prescription medicines only as told by your health care provider. Do not drive or use heavy machinery while taking prescription pain medicine. If you are taking prescription pain medicine, take actions to prevent or treat constipation. Your health care provider may recommend that you: ?Drink enough fluid to keep your urine pale yellow. ?Eat foods that are high in fiber, such as fresh fruits and vegetables, whole grains, and beans. ?Limit foods that are high in fat and processed sugars, such as fried or sweet foods. ?Take an dikz-ivs-wifledi or prescription medicine for constipation. If you have a brace: Wear the back brace as told by your health care provider. Remove it only as told by your health care provider. Keep the brace clean. If the brace is not waterproof: ?Do not let it get wet. ?Cover it with a watertight covering when you take a bath or a shower. Activity Stay in bed (on bed rest) only as directed by your health care provider. Do exercises to improve motion and strength in your back (physical therapy), if your health care provider tells you to do so. Return to your normal activities as directed by your health care provider. Ask your health care provider what activities are safe for you. Managing pain, stiffness, and swelling If directed, put ice on the injured area: ?If you have a removable brace, remove it as told by your health care provider. ?Put ice in a plastic bag. ?Place a towel between your skin and the bag. ?Leave the ice on for 20 minutes, 2 3 times a day. General instructions Do not use any products that contain nicotine or tobacco, such as cigarettes and e-cigarettes. These can delay healing after injury. If you need help quitting, ask your health care provider. Do not drink alcohol. Alcohol can interfere with your treatment. Keep all follow-up visits as directed by your health care provider. This is important. ?Failing to follow up as recommended could result in permanent injury, disability, or long-lasting (chronic) pain. Contact a health care provider if: You have a fever. Your pain medicine is not helping. Your pain does not get better over time. You cannot return to your normal activities as planned or expected. Get help right away if: You have difficulty breathing. Your pain is very bad and it suddenly gets worse. You have numbness, tingling, or weakness in any part of your body. You are unable to empty your bladder. You cannot control your bladder or bowels. You are unable to move any body part (paralysis) that is below the level of your injury. You vomit. You have pain in your abdomen. Summary A lumbar spine fracture is a break in one of the bones of the lower back. The main symptom of this condition is severe pain in the lower back. If a fracture is complex, there may also be numbness, tingling, or paralysis in the legs. Treatment depends on how severe the injury is. Most fractures can be treated with a back brace, bedrest and activity restrictions, pain medicine, and physical therapy. Fractures that are complex, involve multiple bones, or make the spine unstable may require surgery. This information is not intended to replace advice given to you by your health care provider. Make sure you discuss any questions you have with your health care provider. Document Released: 12/03/2007 Document Revised: 10/03/2018 Document Reviewed: 10/03/2018 [employer] Patient Education 2020 [employer]. 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 Follow-up as scheduled. [facility] 08-31-2024 Note Discharge Instructions Thank you for allowing [facility] to assist you with your healthcare needs. The following is importantdischarge information regarding your hospital visit. Your Care Team [facility] Your Diagnosis Asthenia Compression fracture of spine Hypertension What to do next Scheduled Follow-Up Appointments Appointment Type When With Where Contact Information StatusPC OV 08/18/2024 03:00 PM EST KATHERINE BRAND [facility] [address] [place] [phone] Confirmed Follow Up Appointments Follow Up with KATHERINE BRAND Where:[address] [place] [address] [phone] Follow Up with BRODY PATE DO, Orthopedic When:05/25/2024 03:00 PM EDT Where:[address] [facility], [facility] [address] [place] [phone] Additional Information: This appointment can serve as your post-hospital follow- up appointment. Follow-up as scheduled. The Following Activity and Diet Have Been Ordered for You Discharge Activity - Ordered -- Resume your pre-hospitalization activity, 05/01/24 11:30:00 EDT Discharge Diet - Ordered -- No changes were made to your diet during your hospital stay. Please resume your pre hospitalization diet on discharge., 05/01/24 11:30:00 EDT The Following Equipment Has Been Ordered for You Home Equipment - Walker No qualifying data available. The Following Treatments Have Been Ordered for You Discharge Labs Discharge Outpatient Labwork - Ordered -- BMP, hypokalemia, follow-up within: 3-5 days, Results Notify to: KATHERINE BRAND, 05/01/24 11:30:00 EDT Discharge Radiology No qualifying data available. Other Therapies No qualifying data available. Post Acute Orders No qualifying data available. Someone Will Contact You Regarding These Home Health Referrals No home referrals have been ordered for you. No one will call you. Allergies Sallie Nausea Claritin Slo-Niacin atenolol buPROPion cyclobenzaprine Drowsiness erythromycin Medications Please ask your primary doctor or pharmacist before taking any other medication not listed, including over the counter drugs, herbal medications, vitamins and or supplements as they may interact withyour home medications. What How Much When Instructions Last Dose New lidocaine topical (Lidoderm 5% topical patch) 2 patch(es) Topical Once a day DUE TO BE APPLIED AT BEDTIME ON FOR 12 HOURS AND OFF FOR 12 HOURS Duration: 30 Days remove patches after 12 hours Pickup at [facility] 181104/30/24 New potassium chloride (K-Tab 20 mEq oral tablet, extended release) 3 tab(s) by mouth Once a day DUE 05/02/24 Duration: 30 Days Take with food- 2 tabs qam, 1 tab qpm Pickup at [facility] 181105/01/24 08 Unchanged acetaminophen (acetaminophen 500 mg oral tablet) by mouth Every 6 hours as needed for as needed for pain 05/01/24 08 Unchanged amLODIPine (amLODIPine 10 mg oral tablet) 1 tab(s) by mouth Once a day 04/30/24 Unchanged ascorbic acid (Vitamin C 500 mg oral tablet) 2 tab(s) by mouth Once a day 05/01/24 1130 Unchanged busPIRone (busPIRone 15 mg oral tablet) 1 tab(s) by mouth Two (2) times a day Duration: 100 Days 05/01/24 0800 Unchanged carvedilol (carvedilol 12.5 mg oral tablet) 1 tab(s) by mouth Two (2) times a day 05/01/24 0800 Unchanged cyanocobalamin (Vitamin B12 1000 mcg oral tablet) 1 tab(s) by mouth Once a day 05/01/24 0800 Unchanged ferrous sulfate (ferrous sulfate 325 mg (65 mg elemental iron) oral delayed release tablet) 1 tab(s) by mouth Once a day 05/01/24 0800 Unchanged hydrOXYzine (Vistaril 25 mg oral capsule) 1 cap by mouth Four (4) times a day as needed for as needed for anxiety N/A Unchanged LORazepam (LORazepam 1 mg oral tablet) 1 tab(s) by mouth Three (3) times a day as needed for as needed for anxiety N/A Unchanged losartan (losartan 100 mg oral tablet) 1 tab(s) by mouth Once a day Duration: 90 Days 05/01/24 0800 Unchanged melatonin (melatonin 5 mg oral tablet) 1 tab(s) by mouth Daily at bedtime as needed for as needed for insomnia N/A Unchanged PARoxetine (Paxil 40 mg oral tablet) 1 tab(s) by mouth Every day Duration: 90 Days 05/01/24 08 Unchanged psyllium (Metamucil) 1.7 gram(s) by mouth Daily after supper 04/30/2024 Unchanged tamsulosin (Flomax 0.4 mg oral capsule) 1 cap by mouth Once a day 05/01/24 08 Pharmacy Information [facility]: [address] [place], [place] [phone] Please take this list to your next doctor s visit. Bring all medications you take, including over the counter medications, herbals and other supplements with you to your doctor s visit. Patients and families are reminded to discard old lists and to update any records with all medication providers or retail pharmacies. Medication Leaflets potassium chloride (oral/injection) (eddi TASS ee um) Allan Potassium 99, Klor-Con, K-Tab, Potassium Chloride Proamp What is the most important information I should know about potassium chloride? You should not use this medicine if you have high levels of potassium in your blood (hyperkalemia),or if you also take a 'potassium-sparing' diuretic. What is potassium chloride? Potassium is a mineral that is needed for several functions of your body, especially the beating ofyour heart. Potassium chloride is used to prevent or to treat low blood levels of potassium (hypokalemia). Potassium levels can be low as a result of a disease or from taking certain medicines, or after a prolonged illness with diarrhea or vomiting. Potassium chloride may also be used for purposes not listed in this medication guide. What should I discuss with my healthcare provider before taking potassium chloride? You should not use potassium chloride if you are allergic to it, or if: you have high levels of potassium in your blood (hyperkalemia); or you take a 'potassium-sparing' diuretic (water pill) such as amiloride, spironolactone, or triamterene. Tell your doctor if you have ever had: heart problems; high blood pressure; liver or kidney disease; a large tissue injury such as a severe burn; an electrolyte imbalance (such as low levels of calcium or magnesium in your blood); trouble swallowing; slow digestion; stomach bleeding, an ulcer, or a blockage in your stomach or intestines; an adrenal gland disorder; diabetes; or severe dehydration. Tell your doctor if you are or . How should I take potassium chloride? Follow all directions on your prescription label and read all medication guides or instruction sheets. Your doctor may occasionally change your dose. Use the medicine exactly as directed. Potassium chloride oral is taken by mouth. Potassium chloride injection is given as a slow infusioninto a vein. A healthcare provider will give you this medicine by injection if you have severely low potassium levels. Tell your caregivers if you feel any burning, pain, or swelling around the IV needle when potassium chloride is injected. Take oral potassium chloride with food if the medicine upsets your stomach. Always follow directions on the medicine label about giving this medicine to a child. Take the tablet or capsule with a full glass of water. Do not crush, chew, or suck on a potassium tablet or capsule. Sucking on the pill could irritate your mouth or throat. Measure liquid medicine carefully. Use the dosing syringe provided, or use a medicine dose-measuring device (not a kitchen spoon). Mix the oral solution with least 4 ounces of water before taking it. You may need to follow a special diet while using potassium chloride. Follow all instructions of your doctor or dietitian. Learn about the foods to eat or avoid to help control your condition. Call your doctor if you have trouble swallowing a potassium chloride capsule or tablet. You may be able to dissolve the tablet in water, or mix the medicine from a capsule with soft food. Carefully follow your doctor's instructions. You may need frequent medical tests. Your heart function may need to be checked using an electrocardiograph or ECG (sometimes called an EKG). Even if you have no symptoms, tests can help your doctor determine if this medicine is effective. Some tablets are made with a shell that is not absorbed or melted in the body. Part of this shell may appear in your stool. This is normal and will not make the medicine less effective. Store at room temperature away from moisture, heat, and light. Keep the medication in a closed container. What happens if I miss a dose? Take the medicine as soon as you can, but skip the missed dose if it is almost time for your next dose. Do not take two doses at one time. What happens if I overdose? Seek emergency medical attention or call the Poison Help line at . Overdose symptoms may include stomach pain, vomiting, irregular heartbeats, chest pain, muscle weakness, loss of movement, numbness or tingling, or feeling light-headed. What should I avoid while taking potassium chloride? Do not use potassium supplements or other products that contain potassium, unless your doctor has told you to. Salt substitutes or low-salt foods often contain potassium. Read the label of any food or medicine to see if it contains potassium. What are the possible side effects of potassium chloride? Get emergency medical help if you have signs of an allergic reaction: hives; difficult breathing; swelling of your face, lips, tongue, or throat. Stop using potassium chloride and call your doctor at once if you have: severe throat irritation; chest pain, trouble breathing; pain, burning, bruising, swelling, irritation, or skin changes where the medicine was injected; stomach bloating, severe vomiting, severe stomach pain; high potassium level--nausea, weakness, tingly feeling, chest pain, irregular heartbeats, loss of movement; or signs of stomach bleeding--bloody or tarry stools, coughing up blood or vomit that looks like coffee grounds. Common side effects may include: nausea, vomiting, diarrhea; gas, stomach pain; or the appearance of a potassium chloride tablet in your stool. This is not a complete list of side effects and others may occur. Call your doctor for medical advice about side effects. You may report side effects to FDA at 6-090-JLP-6705. What other drugs will affect potassium chloride? Tell your doctor about all your other medicines, especially: medicine to prevent organ transplant rejection; a diuretic or 'water pill'; or heart or blood pressure medication. This list is not complete. Other drugs may affect potassium chloride, including prescription and yizs-vaf-rzkhwlv medicines, vitamins, and herbal products. Not all possible drug interactions are listed here. Where can I get more information? Your pharmacist can provide more information about potassium chloride. Remember, keep this and all other medicines out of the reach of children, never share your medicines with others, and use this medication only for the indication prescribed. Every effort has been made to ensure that the information provided by [employer]. ('[employer]') is accurate, up-to-date, and complete, but no guarantee is made to that effect. Drug information contained herein may be time sensitive. [employer] information has been compiled for use by healthcare practitioners and consumers in the [place] and therefore [employer] does not warrant that uses outside of the [place] are appropriate, unless specifically indicated otherwise. [employer] drug information does not endorse drugs, diagnose patients or recommend therapy. [employer] drug information isan informational resource designed to assist licensed healthcare practitioners in caring for their p atients and/or to serve consumers viewing this service as a supplement to, and not a substitute for, the expertise, skill, knowledge and judgment of healthcare practitioners. The absence of a warningfor a given drug or drug combination in no way should be construed to indicate that the drug or drug combination is safe, effective or appropriate for any given patient. [employer] does not assume any responsibility for any aspect of healthcare administered with the aid of information [employer] provides. The information contained herein is not intended to cover all possible uses, directions, precautions, warnings, drug interactions, allergic reactions, or adverse effects. If you have questions about the drugs you are taking, check with your doctor, nurse or pharmacist. Copyright 2080-2458 [employer]. Version: 16.. Revision Date: 04/09/2023. Education Materials Lumbar Spine Fracture A lumbar spine fracture is a break in one of the bones of the lower back. Lumbar spine fractures can vary from mild to severe. The most severe types are those that: Cause the broken bones to move out of place (unstable). Injure or press on the spinal cord. During recovery, it is normal to have pain and stiffness in the lower back for weeks. What are the causes? This condition may be caused by: A fall. A car accident. A gunshot wound. A hard, direct hit to the back. What increases the risk? You are more likely to develop this condition if: You are in a situation that could result in a fall or other violent injury. You have a condition that causes weakness in the bones (osteoporosis). What are the signs or symptoms? The main symptom of this condition is severe pain in the lower back. If a fracture is complex or severe, there may also be: A misshapen or swollen area on the lower back. Limited ability to move an area of the lower back. Inability to empty the bladder (urinary retention). Loss of bowel or bladder control (incontinence). Loss of strength or sensation in the legs, feet, and toes. Inability to move (paralysis). How is this diagnosed? This condition is diagnosed based on: A physical exam. Symptoms and what happened just before they developed. The results of imaging tests, such as an X-ray, CT scan, or MRI. If your nerves have been damaged, you may also have other tests to find out the extent of the damage. How is this treated? Treatment for this condition depends on how severe the injury is. Most fractures can be treated with: A back brace. Bed rest and activity restrictions. Pain medicine. Physical therapy. Fractures that are complex, involve multiple bones, or make the spine unstable may require surgery.Surgery is done: To remove pressure from the nerves or spinal cord. To stabilize the broken pieces of bone. Follow these instructions at home: Medicines Take dnmt-kaj-yyvfdzq and prescription medicines only as told by your health care provider. Do not drive or use heavy machinery while taking prescription pain medicine. If you are taking prescription pain medicine, take actions to prevent or treat constipation. Your health care provider may recommend that you: ? Drink enough fluid to keep your urine pale yellow. ? Eat foods that are high in fiber, such as fresh fruits and vegetables, whole grains, and beans. ? Limit foods that are high in fat and processed sugars, such as fried or sweet foods. ? Take an lcpe-szc-vvidfuf or prescription medicine for constipation. If you have a brace: Wear the back brace as told by your health care provider. Remove it only as told by your health care provider. Keep the brace clean. If the brace is not waterproof: ? Do not let it get wet. ? Cover it with a watertight covering when you take a bath or a shower. Activity Stay in bed (on bed rest) only as directed by your health care provider. Do exercises to improve motion and strength in your back (physical therapy), if your health care provider tells you to do so. Return to your normal activities as directed by your health care provider. Ask your health care provider what activities are safe for you. Managing pain, stiffness, and swelling If directed, put ice on the injured area: ? If you have a removable brace, remove it as told by your health care provider. ? Put ice in a plastic bag. ? Place a towel between your skin and the bag. ? Leave the ice on for 20 minutes, 2 3 times a day. General instructions Do not use any products that contain nicotine or tobacco, such as cigarettes and e-cigarettes. These can delay healing after injury. If you need help quitting, ask your health care provider. Do not drink alcohol. Alcohol can interfere with your treatment. Keep all follow-up visits as directed by your health care provider. This is important. ? Failing to follow up as recommended could result in permanent injury, disability, or long-lasting (chronic) pain. Contact a health care provider if: You have a fever. Your pain medicine is not helping. Your pain does not get better over time. You cannot return to your normal activities as planned or expected. Get help right away if: You have difficulty breathing. Your pain is very bad and it suddenly gets worse. You have numbness, tingling, or weakness in any part of your body. You are unable to empty your bladder. You cannot control your bladder or bowels. You are unable to move any body part (paralysis) that is below the level of your injury. You vomit. You have pain in your abdomen. Summary A lumbar spine fracture is a break in one of the bones of the lower back. The main symptom of this condition is severe pain in the lower back. If a fracture is complex, there may also be numbness, tingling, or paralysis in the legs. Treatment depends on how severe the injury is. Most fractures can be treated with a back brace, bedrest and activity restrictions, pain medicine, and physical therapy. Fractures that are complex, involve multiple bones, or make the spine unstable may require surgery. This information is not intended to replace advice given to you by your health care provider. Make sure you discuss any questions you have with your health care provider. Document Released: 12/03/2007 Document Revised: 10/03/2018 Document Reviewed: 10/03/2018 [employer] Patient Education 2020 [employer] Additional Information VACCINATE! IT SAVES LIVES! Members of the community who have not yet received the COVID-19 vaccine and would like to receive it can visit one of [facility] vaccine clinics. There are many vaccine clinic locations within the [facility]. For locations and available times, please visit [email or web address].[place].gov/. It is important to note that some COVID mobile vaccine clinics are held outdoors and may be canceled in rainy or stormy conditions. To learn more about pediatric vaccinations (ages 5-11), we invite you to visit the [facility] webpage. [email or web address] learn more about the COVID-19 vaccine, we invite you to visit the CDC website for a list of frequently asked questions.https://www.cdc.gov/coronavirus/2019-ncov/vaccines/faq.html [facility] Patient Portal Access Instructions: Stay connected with your healthcare team and access your personal medical information anytime with the [facility] Patient Portal. Please follow the directions below to create your [facility] account: 1.Access the email account you provided upon registration to the hospital/physician office.2.Look for an invitation email from [facility].3.Open the email and access the invitation link: AcceptInvitation to [facility]t.4.Fill in the required britt to create your account. To access your account, visit [facility]OneChart. Click the blue button labeled Access Patient Portal and then log in with the username and password that you created in the steps above. You will be able to view your test results, lab results, a summary of your visits, upcoming appointments and more. There is also a convenient messaging option where you can send secure messages to your p rovider. In addition, you will have the ability to download any documents or summaries to your computer and/or send the information securely to a physician. Remember that your healthcare information is confidential, so carefully consider who you will allowto register on the [facility] Patient Portal for access to your information. You can also access the [facility] Patient Portal on the [employer] Anywhere dylan. Simply click on Patient Portal and then log into your account. If you would like to receive a full copy of your medical records, please contact the [facility] Medical Records Department by calling [phone], Friday through Friday between 8 a.m. and 4:30 p.m. HOW TO SAFELY DISPOSE OF PRESCRIPTION MEDICATIONS Please use one of the following methods to safely dispose of your unused medications. 1.Use a drug disposal kit: the drug disposal pouch allows you to safely discard your old and unuseddrugs. Ask your nurse to give you one when you are discharged.2.Visit a local take-back location: Many local pharmacies and police departments have programs that collect old and unwanted prescriptiondrugs. Call your local pharmacy or go to http://[place].Moat/1X1Vb9o to find one close to you.3.Make use of household items: Use cat litter or old coffee grounds to dispose medications if other options arenot available. Mix your drugs with these household products, seal them in an airtight container andthrow it into the garbage. Call [facility]: [phone] to be sure your drugs can be disposed of in this way. Some medicines may require a different approach.4.Never flush your medications down the toilet. IF YOU HAVE BEEN PRESCRIBED AN OPIOID FOR PAIN If you have been prescribed an opioid (such as hydrocodone, oxycodone or morphine), it is critical to understand the possible side effects and risks of opioid pain medications. Even when taken as directed, opioids can have several side effects including: Tolerance, meaning you might need to take more of a medication for the same pain relief. Nausea, vomiting and/or constipation. Sleepiness, dizziness, dry mouth, confusion, depression or itching. Physical dependence, meaning you have withdrawal symptoms when a medication is stopped, can develop within a few days. KNOW YOUR RESPONSIBILITIES It is important to know exactly how much and how often to take the opioid pain medications you are prescribed. Never take opioids in higher amounts or more often than prescribed. Do not combine opioids with alcohol or other drugs that cause drowsiness, such as benzodiazepines, also known as benzos, including diazepam and alprazolam, muscle relaxants or sleep aids. Never sell or share prescription opioids. This is illegal. Store opioids in a secure place and out of reach of others (including children, family, friends and visitors). The last page of this document has been signed and retained as a CHART COPY. Signatures Patient Education Materials Lumbar Spine Fracture Medication Leaflets potassium chloride (oral/injection) My discharge plan and instructions have been reviewed and explained to me and I,ALVARO NANCY Shahla understand my current condition and have read and understand these discharge instructions. I have received a written copy of the plan/instructions. If I have questions, I am aware that I should contact my doctor. Patient/Hand Striper Signature: Date/Time: Relationship to Patient: Witness Name/Signature: Date/Time: [facility]08-27-2024 Note Date of Service 04/27/24 History of Present Illness This is a 79-year-old male With past medical history of T11 compression fracture, hypertension, BPH, anxiety. He presented to [facility] on 04/22/2024 with complaints of severe back pain. Has a history ofchronic back pain with chronic T11 compression fracture. He is status post a kyphoplasty from Novemberof this year. Approximately 5 days ago he had acute onset low back pain while lifting a case of water. Per patient, he has been immobile due to the pain and laying in bed for the past 5 days. Had no improvement prompting presentation to the ER. L-spine x-ray demonstrated compression deformity of the L1 vertebral body that is age-indeterminate but new since October of this year. Patient was hypoxic requiring 2 L nasal cannula. Chest x-ray demonstrating left upper lung patchy opacity that may represent developing infection. Was started on antibiotics for pneumonia with ceftriaxone and doxycycline. Lab work was largely unremarkable, however did have elevated liver enzymes with alk phos of 183, AST 79, ALT 125. These trended down, MRI L- spine was obtained which demonstrated L1 burst fracture with less than 25% height loss and moderate to severe lumbar foraminal stenosis. Was seen by Dr. Bryan orthopedic surgery who recommended pain control and mobilization. Was seen by PT/OT who recommended longterm facility. Has been maintained on 1 L nasal cannula. Completed 5 days of treatment for pneumonia. He was subsequently admitted to [facility] T[facility]. On exam today, pt denies any fever or chills. No headache or dizziness. Denies chest pain, palpitations. No cough, dyspnea, sputum production. Denies N/V/D/C. No melena/hematochezia. No dysuria or hematuria. No new paresthesias. Review of Systems See HPI for specific ROS. All other systems reviewed and negative. Physical Exam Vitals and Measurements T: 36.5 C (Oral) TMIN: 36.5 C (Oral) TMAX: 37.0 C (Oral) HR: 95 (Monitored) RR: 18 BP: 129/95 SpO2:99% Weight Dosing Weight: 84 kg (04/26/24) GEN: Appears chronically ill EYES: No conjunctival erythema, drainage. EOMI EARS: Hearing grossly intact. NOSE: No nasal discharge. THROAT: Oral cavity and pharynx pink and moist. CHEST: Normal S1 and S2. Rhythm is regular. Clear to auscultation, without rales, rhonchi, wheezing. ABD: Positive bowel sounds x 4 quads. Soft, nondistended, nontender. EXT: No significant deformity or joint abnormality. No edema. Peripheral pulses intact. NEURO: Sensation grossly intact SKIN: Skin color normal PSYCH: The mental examination revealed the patient was alert and oriented x 4 Lab Results 04/27 05:21 WBC: 11.5 H Hgb: 12.6 L Hct: 36.7 L Platelet: 238 Neutrophil %: 79.5 Glucose Level: 98 Sodium Level: 146 H Potassium Level: 3.2 L BUN: 17 Creatinine Lvl (s): 0.75 Assessment/Plan 1. Asthenia 2. Hypertension 3. Compression fracture of spine Asthenia consult PT and OT. HTN- SBP goal 140 or less. Continue home antihypertensives. Compression fracture scheduled Tylenol 1000 mg 3 times daily. Continue with physical therapy services. Code Status:Full Code. Plan of care discussed with patient. All questions answered. Patient verbalizes understanding is agreeable to plan of care. This dictation was performed using voice recognition software and may include grammatical and/or spelling errors. Problem List/Past Medical History Ongoing Anemia Anxiety Balance problem BPH (benign prostatic hyperplasia) Compression fracture of T11 vertebra Hypertension Insomnia Itchy scalp Low back pain Screening for colon cancer Screening for prostate cancer Urinary incontinence Well adult exam Procedure/Surgical History Cholecystectomy: 09/25/18 Colonoscopy Wrist joint Tonsillectomy Appendectomy Medications Home Medications (14) Active acetaminophen 500 mg oral tablet , PRN, Oral, q6hr amLODIPine 10 mg oral tablet 10 mg = 1 tab(s), Oral, qDay busPIRone 15 mg oral tablet 15 mg = 1 tab(s), Oral, BID carvedilol 12.5 mg oral tablet 12.5 mg = 1 tab(s), Oral, BID ferrous sulfate 325 mg (65 mg elemental iron) oral delayed release tablet 325 mg = 1 tab(s), Oral, qDay Flomax 0.4 mg oral capsule 0.4 mg = 1 cap(s), Oral, qDay LORazepam 1 mg oral tablet 1 mg = 1 tab(s), PRN, Oral, TID losartan 100 mg oral tablet 100 mg = 1 tab(s), Oral, qDay melatonin 5 mg oral tablet 5 mg = 1 tab(s), PRN, Oral, qHS Metamucil 1.7 gram(s), Oral, PCSupper Paxil 40 mg oral tablet 40 mg = 1 tab(s), Oral, Daily Vistaril 25 mg oral capsule 25 mg = 1 cap(s), PRN, Oral, QID Vitamin B12 1000 mcg oral tablet 1,000 mcg = 1 tab(s), Oral, qDay Vitamin C 500 mg oral tablet 1,000 mg = 2 tab(s), Oral, qDay Allergies Sallie Nausea Claritin Slo-Niacin atenolol buPROPion cyclobenzaprine Drowsiness erythromycin Social History Smoking Status - 05/26/2014 Current every day smoker Alcohol - Low Risk, 08/26/2018 Use: Current. 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 Days per week: 1-2 times/week., 03/11/2020 Home/Environment OTher risks in environment: no current smoke exposure. 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 Current Home Treatments Blood Pressure monitoring, cane multiple, grab bars, pulse ox. Spouse Name: Leida (10/16/1947)., 04/26/2024 Nutrition/Health Caffeine intake amount: 4 servings daily., 03/16/2019 Sexual - No Risk, 07/03/2018 Substance Abuse - Denies Substance Abuse, 08/26/2018 Use: Never., 09/16/2018 Tobacco - Denies Tobacco Use, 08/26/2018 Tobacco Use: Former smoker, quit more than 30 days ago. Type: Pipe. Number of years: 40. Stopped atage: 71 Years., 09/16/2018 Family History Alcohol abuse: Father. Autism: Son. COPD - Chronic obstructive pulmonary disease: Sister. Cirrhosis of liver: Father. Hepatic failure: Mother. Hyperlipidaemia: Sister. Lymphoma: Brother. Prostate cancer: Brother. Stable: Sister. Health Status Family Member(s) Family Member(s) Relationship: Mother, Name: Alvaro, Age: 77 Years, Cause: Headache failure Relationship: Father, Name: Alvaro, Age: 62 Years, Cause: Cirrhosis of the liver Relationship: Maternal Grandmother, Age: 69 Years, Cause: Parkinson Relationship: Paternal Grandfather, Age: 84 Years, Cause: Old age Relationship: Maternal Grandfather, Age: 91 Years Relationship: Paternal Grandfather, Age: 85 Years, Cause: Old age Relationship: Brother, Name: Alvaro, #1, Age: 70 Years, Cause: Suicide, depresion,prostate cancer Immunizations pneumococcal 13-valent conjugate vaccine: 0 unknown unit (11/28/14) pneumococcal 23-valent vaccine(Pneumovax: 0 unknown unit (10/28/12) SARS-CoV-2 (COVID-19) mRNA-1273 vaccine: 50 mcg (01/10/22) SARS-CoV-2 (COVID-19) mRNA-1273 vaccine: 0.25 unknown unit (07/19/21) SARS-CoV-2 (COVID-19) mRNA-1273 vaccine: 0.5 unknown unit (11/29/20) SARS-CoV-2 (COVID-19) mRNA-1273 vaccine: 0.5 unknown unit (11/01/20) tetanus/diphth/pertuss (Tdap) adult/adol: 0.5 mL (04/24/23) Code Status Code Status - Ordered -- 04/26/24 14:00:00 EDT, Full Code, Constant Order Digitally Signed by THAO MERINO on 04/27/2024 06:06 PM [facility]08-27-2024 Evaluation + Plan noteExtracted from: Title:History and Physical Author:THAO MERINO Date:04/27/24 1. Asthenia 2. Hypertension 3. Compression fracture of spine Asthenia consult PT and OT. HTN- SBP goal 140 or less. Continue home antihypertensives. Compression fracture scheduled Tylenol 1000 mg 3 times daily. Continue with physical therapy services. Code Status:Full Code. Plan of care discussed with patient. All questions answered. Patient verbalizes understanding is agreeable to plan of care. This dictation was performed using voice recognition software and may include grammatical and/or spelling errors. Future Appointments Appointment Date:08/18/2024 03:00:00 PM Scheduled Provider:KATHEIRNE BRAND Location:[facility] ([place], [place]) Appointment Type:PC OV [facility] 08-26-2024 Nurse Progress note I read and agree with Yannick Krueger vital signs documentation Digitally Signed by Elissa De La Rosa Orthopedic Technician on 04/26/2024 03:34 PM [facility]08-26-2024 Hospital Discharge instructions Patient Education 04/26/2024 13:32:24 Acute Pain, Adult Acute Pain, Adult Acute pain is a type of sudden pain that may last for just a few days or for as long as six months.It is often related to an illness, injury, or medical procedure. Acute pain may be mild, moderate, or severe. Pain can make it hard for you to do your normal, daily activities. It can cause anxiety and lead toother problems if it is left untreated. Treatment depends on the cause and severity of your pain. Acute pain usually goes away once your injury has healed or you are no longer ill. Follow these instructions at home: Medicines Take hyqh-qmn-xogdmuy and prescription medicines only as told by your health care provider. Take the lowest dose of medicine for the shortest amount of time needed to relieve the pain. If you are taking prescription pain medicine: ?Do not stop taking the medicine suddenly. Talk to your health care provider about how and when to discontinue prescription medicine. ?Do not take more pills than told by your health care provider even if your pain is severe. ?Do not take other nfez-gij-ixfkewq pain medicines in addition to prescription pain medicine unlesstold by your health care provider. ?Ask your health care provider if the medicine requires you to avoid driving or using heavy machinery. ?Ask your health care provider if the medicine can cause constipation. You may need to take these actions to prevent or treat constipation: ?Drink enough fluid to keep your urine pale yellow. ?Eat foods that are high in fiber, such as beans, whole grains, and fresh fruits and vegetables. ?Take btcf-sda-ojsatfq or prescription medicines. ?Limit foods that are high in fat and processed sugars, such as fried or sweet foods. Managing pain, stiffness, and swelling If directed, put ice on the affected area. To do this: Put ice in a plastic bag. Place a towel between your skin and the bag. Leave the ice on for 20 minutes, 2 3 times a day. If directed, apply heat to the affected area as often as told by your health care provider. Use theheat source that your health care provider recommends, such as a moist heat pack or a heating pad. Place a towel between your skin and the heat source. Leave the heat on for 20 30 minutes. Remove the heat if your skin turns bright red. This is especially important if you are unable to feel pain, heat, or cold. You may have a greater risk of getting burned. Activity Rest as told by your health care provider. Return to your normal activities as told by your health care provider. Ask your health care provider what activities are safe for you. General instructions Check your pain level as told by your health care provider. Ask your health care provider if other strategies such as distraction, relaxation, or physical therapies can help your pain. Keep all follow-up visits as told by your health care provider. This is important. Contact a health care provider if: Your pain is not controlled by medicine. Your pain does not improve or gets worse. You have side effects from pain medicines, such as vomiting or confusion. Get help right away if you: Have severe pain. Have trouble breathing. Lose consciousness. Have chest pain or pressure that lasts for more than a few minutes, or if you have other symptoms along with chest pain, including if you: ?Have pain or discomfort in one or both arms, your back, neck, jaw, or stomach. ?Have shortness of breath. ?Break out in a cold sweat. ?Feel nauseous. ?Become light-headed. These symptoms may represent a serious problem that is an emergency. Do not wait to see if the symptoms will go away. Get medical help right away. Call your local emergency services (911 in the [place] Do not drive yourself to the hospital. Summary Acute pain may be mild, moderate, or severe. It usually goes away once your injury has healed or you are no longer ill. Take nnay-rrj-tltpqek and prescription medicines only as told by your health care provider. Ask your health care provider if the medicine prescribed to you can cause constipation. Contact a health care provider if your pain is not controlled by medicine. This information is not intended to replace advice given to you by your health care provider. Make sure you discuss any questions you have with your health care provider. Document Released: 09/01/2016 Document Revised: 01/03/2020 Document Reviewed: 01/03/2020 [employer] Patient Education 2020 [employer]. Follow Up Care 04/22/2024 17:53:30 With:KATHERINE BRAND APRN-VEGETABLE LOADER MACHINE OPERATOR Address: [address] [facility] [place] [address]- [phone] When:3-5 days Comments:Please call to schedule your post-hospital follow-up appointment. With:BRODY PATE DO, Orthopedic Address: [address] [place] [address], [address] [facility] [place] [address]- [phone] When:05/25/2024 15:00:00 Comments:This appointment can serve as your post-hospital follow-up appointment with orthopedics. Follow-up as scheduled. [facility] 08-26-2024 Nurse Progress note I agree with Yannick FOX Digital Campaign Specialist assessment and vital signs. I was present forall care Digitally Signed by Elissa De La Rosa Orthopedic Technician on 04/26/2024 01:36 PM [facility]08-26-2024 Note Discharge Instructions Thank you for allowing [facility] to assist you with your healthcare needs. The following is importantdischarge information regarding your hospital visit. Your Care Team Reji Cao CNP Your Diagnosis Acute hypoxic respiratory failure Anxiety Compression fracture of L1 vertebra HTN (hypertension) Hypernatremia Pneumonia What to do next Scheduled Follow-Up Appointments Appointment Type When With Where Contact Information StatusPC OV 08/18/2024 03:00 PM EST KATHERINE BRAND APRN-BERTHA [facility] [address] [place] [address] [phone] Confirmed Follow Up Appointments Follow Up with KATHERINE BRAND When:Within 3-5 days Where:[address], [place] [id number] [phone] Additional Information: Please call to schedule your post-hospital follow-up appointment. Follow Up with BRODY PATE DO, Orthopedic When:05/25/2024 03:00 PM EDT Where:[facility] [address] [facility] [place] [address]- [phone] Additional Information: This appointment can serve as your post-hospital follow- up appointment withorthopedics. Follow-up as scheduled. The Following Activity and Diet Have Been Ordered for You Transfer of Care Activity - Ordered -- Activity As Tolerated, 04/26/24 10:43:00 EDT Transfer of Care Diet - Ordered -- Type of Diet: Regular Diet, 04/26/24 10:43:00 EDT The Following Treatments Have Been Ordered for You Discharge Labs No qualifying data available. Discharge Radiology No qualifying data available. Other Therapies Transfer of Care OT - Ordered -- Reason for therapy: weakness, 04/26/24 10:43:00 EDT Transfer of Care PT - Ordered -- Reason for therapy: weakness, 04/26/24 10:43:00 EDT Post Acute Orders Transfer of Care Admission Level of Care - Ordered -- Level of Care SNF, 04/26/24 10:44:15 EDT Transfer of Care Code Status - Ordered -- Full Code, Constant Order Transfer of Care Orders Electronically Signed By - Ordered -- 04/26/24 10:43:00 EDT, FORREST CAO APRN-VEGETABLE LOADER MACHINE OPERATOR Transfer of Care Oxygen Therapy - Ordered -- Oxygen (CONTINUOUS), Mobile in the Home, Nasal Cannula, 2 liters per minute, 99 month(s), 04/26/24 10:43:00 EDT Transfer of Care Prognosis - Ordered -- Fair, Patient Aware: Yes Transfer of Care Rehab Potential - Ordered -- Rehab potential fair, 04/26/24 10:44:15 EDT Allergies Sallie Nausea Claritin Slo-Niacin atenolol buPROPion cyclobenzaprine Drowsiness erythromycin Medications Please ask your primary doctor or pharmacist before taking any other medication not listed, including over the counter drugs, herbal medications, vitamins and or supplements as they may interact withyour home medications. What How Much When Instructions Last Dose Unchanged acetaminophen (acetaminophen 500 mg oral tablet) by mouth Every 6 hours as needed for as needed for pain Unchanged amLODIPine (amLODIPine 10 mg oral tablet) 1 tab(s) by mouth Once a day Unchanged ascorbic acid (Vitamin C 500 mg oral tablet) 2 tab(s) by mouth Once a day Unchanged busPIRone (busPIRone 15 mg oral tablet) 1 tab(s) by mouth Two (2) times a day Duration: 100 Days Unchanged carvedilol (carvedilol 12.5 mg oral tablet) 1 tab(s) by mouth Two (2) times a day Unchanged cyanocobalamin (Vitamin B12 1000 mcg oral tablet) 1 tab(s) by mouth Once a day Unchanged ferrous sulfate (ferrous sulfate 325 mg (65 mg elemental iron) oral delayed release tablet) 1 tab(s) by mouth Once a day Unchanged hydrOXYzine (Vistaril 25 mg oral capsule) 1 cap by mouth Four (4) times a day as needed for as needed for anxiety Unchanged LORazepam (LORazepam 1 mg oral tablet) 1 tab(s) by mouth Three (3) times a day as needed for as needed for anxiety Unchanged losartan (losartan 100 mg oral tablet) 1 tab(s) by mouth Once a day Duration: 90 Days Unchanged melatonin (melatonin 5 mg oral tablet) 1 tab(s) by mouth Daily at bedtime as needed for as needed for insomnia Unchanged PARoxetine (Paxil 40 mg oral tablet) 1 tab(s) by mouth Every day Duration: 90 Days Unchanged psyllium (Metamucil) 1.7 gram(s) by mouth Daily after supper Unchanged tamsulosin (Flomax 0.4 mg oral capsule) 1 cap by mouth Once a day What How Much When Comments Stop Taking ibuprofen (ibuprofen 200 mg oral tablet) by mouth Every 6 hours as needed for as needed for pain Please take this list to your next doctor s visit. Bring all medications you take, including over the counter medications, herbals and other supplements with you to your doctor s visit. Patients and families are reminded to discard old lists and to update any records with all medication providers or retail pharmacies. Education Materials Acute Pain, Adult Acute pain is a type of sudden pain that may last for just a few days or for as long as six months.It is often related to an illness, injury, or medical procedure. Acute pain may be mild, moderate, or severe. Pain can make it hard for you to do your normal, daily activities. It can cause anxiety and lead toother problems if it is left untreated. Treatment depends on the cause and severity of your pain. Acute pain usually goes away once your injury has healed or you are no longer ill. Follow these instructions at home: Medicines Take qall-jzr-bwxbhbq and prescription medicines only as told by your health care provider. Take the lowest dose of medicine for the shortest amount of time needed to relieve the pain. If you are taking prescription pain medicine: ? Do not stop taking the medicine suddenly. Talk to your health care provider about how and when to discontinue prescription medicine. ? Do not take more pills than told by your health care provider even if your pain is severe. ? Do not take other yyay-ghy-klykiig pain medicines in addition to prescription pain medicine unless told by your health care provider. ? Ask your health care provider if the medicine requires you to avoid driving or using heavy machinery. ? Ask your health care provider if the medicine can cause constipation. You may need to take these actions to prevent or treat constipation: ? Drink enough fluid to keep your urine pale yellow. ? Eat foods that are high in fiber, such as beans, whole grains, and fresh fruits and vegetables. ? Take atyc-ias-ubyzxhp or prescription medicines. ? Limit foods that are high in fat and processed sugars, such as fried or sweet foods. Managing pain, stiffness, and swelling If directed, put ice on the affected area. To do this: Put ice in a plastic bag. Place a towel between your skin and the bag. Leave the ice on for 20 minutes, 2 3 times a day. If directed, apply heat to the affected area as often as told by your health care provider. Use theheat source that your health care provider recommends, such as a moist heat pack or a heating pad. Place a towel between your skin and the heat source. Leave the heat on for 20 30 minutes. Remove the heat if your skin turns bright red. This is especially important if you are unable to feel pain, heat, or cold. You may have a greater risk of getting burned. Activity Rest as told by your health care provider. Return to your normal activities as told by your health care provider. Ask your health care provider what activities are safe for you. General instructions Check your pain level as told by your health care provider. Ask your health care provider if other strategies such as distraction, relaxation, or physical therapies can help your pain. Keep all follow-up visits as told by your health care provider. This is important. Contact a health care provider if: Your pain is not controlled by medicine. Your pain does not improve or gets worse. You have side effects from pain medicines, such as vomiting or confusion. Get help right away if you: Have severe pain. Have trouble breathing. Lose consciousness. Have chest pain or pressure that lasts for more than a few minutes, or if you have other symptoms along with chest pain, including if you: ? Have pain or discomfort in one or both arms, your back, neck, jaw, or stomach. ? Have shortness of breath. ? Break out in a cold sweat. ? Feel nauseous. ? Become light-headed. These symptoms may represent a serious problem that is an emergency. Do not wait to see if the symptoms will go away. Get medical help right away. Call your local emergency services (911 in the [place] Do not drive yourself to the hospital. Summary Acute pain may be mild, moderate, or severe. It usually goes away once your injury has healed or you are no longer ill. Take izni-omu-hwkevic and prescription medicines only as told by your health care provider. Ask your health care provider if the medicine prescribed to you can cause constipation. Contact a health care provider if your pain is not controlled by medicine. This information is not intended to replace advice given to you by your health care provider. Make sure you discuss any questions you have with your health care provider. Document Released: 09/01/2016 Document Revised: 01/03/2020 Document Reviewed: 01/03/2020 Elsevier Patient Education 2020 [employer]. Additional Information VACCINATE! IT SAVES LIVES! Members of the community who have not yet received the COVID-19 vaccine and would like to receive it can visit one of [facility] vaccine clinics. There are many vaccine clinic locations within the [facility]. For locations and available times, please visit https://gettheshot.coronavirus.[place].gov/. It is important to note that some COVID mobile vaccine clinics are held outdoors and may be canceled in rainy or stormy conditions. To learn more about pediatric vaccinations (ages 5-11), we invite you to visit the [facility] webpage. https://www.[employer].org/pages/9582-Wapdg-Gfcztzgjirc-Rqyiwzjqvy-Poorz-Enf stions.htmlTo learn more about the COVID-19 vaccine, we invite you to visit the CDC website for a list of frequently asked questions.https://www.cdc.gov/coronavirus/2019-ncov/vaccines/faq.html [facility] Patient Portal Access Instructions: Stay connected with your healthcare team and access your personal medical information anytime with the [facility] Patient Portal. Please follow the directions below to create your [facility] account: 1.Access the email account you provided upon registration to the hospital/physician office.2.Look for an invitation email from [facility].3.Open the email and access the invitation link: AcceptInvitation to [facility].4.Fill in the required britt to create your account. To access your account, visit [facility]. Click the blue button labeled Access Patient Portal and then log in with the username and password that you created in the steps above. You will be able to view your test results, lab results, a summary of your visits, upcoming appointments and more. There is also a convenient messaging option where you can send secure messages to your p rovider. In addition, you will have the ability to download any documents or summaries to your computer and/or send the information securely to a physician. Remember that your healthcare information is confidential, so carefully consider who you will allowto register on the [facility] [place] [facility] Patient Portal for access to your information. You can also access the [facility] on the [facility] dylan. Simply click on Patient Portal and then log into your account. If you would like to receive a full copy of your medical records, please contact the [facility] Medical Records Department by calling [phone], Friday through Friday between 8 a.m. and 4:30 p.m. HOW TO SAFELY DISPOSE OF PRESCRIPTION MEDICATIONS Please use one of the following methods to safely dispose of your unused medications. 1.Use a drug disposal kit: the drug disposal pouch allows you to safely discard your old and unuseddrugs. Ask your nurse to give you one when you are discharged.2.Visit a local take-back location: Many local pharmacies and police departments have programs that collect old and unwanted prescriptiondrugs. Call your local pharmacy or go to http://jslyhl/2L8Tw5f to find one close to you.3.Make use of household items: Use cat litter or old coffee grounds to dispose medications if other options arenot available. Mix your drugs with these household products, seal them in an airtight container andthrow it into the garbage. Call [facility]: [phone] to be sure your drugs can be disposed of in this way. Some medicines may require a different approach.4.Never flush your medications down the toilet. IF YOU HAVE BEEN PRESCRIBED AN OPIOID FOR PAIN If you have been prescribed an opioid (such as hydrocodone, oxycodone or morphine), it is critical to understand the possible side effects and risks of opioid pain medications. Even when taken as directed, opioids can have several side effects including: Tolerance, meaning you might need to take more of a medication for the same pain relief. Nausea, vomiting and/or constipation. Sleepiness, dizziness, dry mouth, confusion, depression or itching. Physical dependence, meaning you have withdrawal symptoms when a medication is stopped, can develop within a few days. KNOW YOUR RESPONSIBILITIES It is important to know exactly how much and how often to take the opioid pain medications you are prescribed. Never take opioids in higher amounts or more often than prescribed. Do not combine opioids with alcohol or other drugs that cause drowsiness, such as benzodiazepines, also known as benzos, including diazepam and alprazolam, muscle relaxants or sleep aids. Never sell or share prescription opioids. This is illegal. Store opioids in a secure place and out of reach of others (including children, family, friends and visitors). The last page of this document has been signed and retained as a CHART COPY. Signatures Patient Education Materials Acute Pain, Adult Medication Leaflets My discharge plan and instructions have been reviewed and explained to me and I,NANCY SY understand my current condition and have read and understand these discharge instructions. I have received a written copy of the plan/instructions. If I have questions, I am aware that I should contact my doctor. Patient/Hand Striper Signature: Date/Time: Relationship to Patient: Witness Name/Signature: Date/Time: [facility]08-26-2024 Nurse Progress note I read and agree with Yannick FOX student nursing assessment and vital signs. I was present for all care. Digitally Signed by Elissa De La Rosa Orthopedic Technician on 04/26/2024 11:49 AM [facility]08-26-2024 Pastoral care Progress note Pastoral Care Note Entered On: 04/26/2024 9:52 EDT Performed On: 04/26/2024 9:49 EDT by Shakir Braxton Pastoral Care Type of Pastoral Visit : Initial visit Spiritual Care Visit Initiated by : Neuropsychologist Spiritual Care Reason for Visit : General Spiritual Assessment : Spiritual, not Baptism, Peaceful Spiritual Care Emotional Assessment : Accepting of Situation, Thoughtful/Reflective Spiritual Care Intervention : Affirmation, Supportive presence Spiritual Outcomes : Embraces Present Moment Spiritual Plan of Care : Spiritual Care Declined, No Further Action Pastoral Care Comments : patient states that he is doing some better slowly and surely; talked about his acceptance of slow but sure process; 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 Pt usually only drinks cola. at bedside and also updated on plan of care. Digitally Signed by Ines Santiago RN on 04/25/2024 05:12 PM [facility]08-25-2024 Note Date of Service 04/25/2024 Chief Complaint Back pain Subjective Per nursing, did have some confusion overnight. On and off of 2 L nasal cannula. No complaint of shortness of breath. Noncompliant with incentive spirometer. Encourage compliance. Sodium mildly elevated 148, per nursing and patient he does not drink much water, drinks mostly Coca-Cola. Encourage toincrease water intake. Objective Vitals and Measurements T: 36.8 C (Oral) TMIN: 36.5 C (Oral) TMAX: 36.8 C (Oral) HR: 87 RR: 18 BP: 148/80 SpO2: 95% Intake and Output 7AM Yesterday to 7AM Today Intake and Output (Last 24 hours) Intake Oral Intake 480.00 Output Urine Voided 1340.00 Urine Count 5.00 Total Summary Total Intake 480.00 Total Output 1340.00 Fluid Balance -860.00 Physical Exam Physical Exam General: Alert, appropriate and awake, oriented to time, people and place Skin: No rash. Warm, Dry, Intact HEENT: Head is normocephalic and atraumatic. No lesions. Pupils equal in size. Extraocular movements within normal limits. Nose: No septal deviation. Mouth: Oropharynx mucosa is without lesion. Neck: Supple. No lymphadenopathy, thyromegaly noted. Lungs: Bilaterally clear/diminished breath sounds with no crepitation or wheeze. Unlabored Cardiovascular: Heart is regular rhythm, S1S2, No extra-audible heart tones Abdomen: Abdomen is soft, nontender. Bowel sounds positive all four quadrants. Extremities: No clubbing, cyanosis or edema. Peripheral pulses palpable. No calf tenderness. Adequate peripheral circulation. Neurological: Following simple commands, moving all extremities. Weight Dosing Weight: 87.5 kg (04/22/24) Medications Medications (22) Active Scheduled: (14) acetaminophen 500 mg Tablet 1,000 mg 2 tab(s), Oral, TID albuterol - ipratropium 2.5 mg-0.5 mg/3 mL Inhal Gay UD 3 mL, Inhalation, QIDRT amLODIPine 5 mg tablet 10 mg 2 tab(s), Oral, qDay busPIRone 5 mg Tablet 15 mg 3 tab(s), Oral, BID carvedilol 12.5 mg tablet 12.5 mg 1 tab(s), Oral, BID cefTRIAXone 2 g, IV Piggyback, qDay docusate-senna (Senokot S) 50 mg-8.6 mg Tablet 1 tab(s), Oral, BID heparin 5,000 units/mL (1 mL) vial 5,000 unit(s) 1 mL, Subcutaneous, q8h lidocaine patch REMOVAL 1 EA, Miscellaneous, q24h lidocaine topical 4% patch 1 patch(es), Transdermal, q24h losartan 50 mg tablet 100 mg 2 tab(s), Oral, qDay paroxetine 20 mg tablet 40 mg 2 tab(s), Oral, Daily psyllium REC Packet 0.5 packet(s), Oral, qDay tamsulosin 0.4 mg Capsule 0.4 mg 1 cap(s), Oral, qDay Continuous: (0) PRN: (8) acetaminophen 325 mg Tablet 650 mg 2 tab(s), Oral, q4h acetaminophen 325 mg Tablet 650 mg 2 tab(s), Oral, q6hr albuterol 0.083% Soln UD (2.5mg/3 mL) 2.5 mg 3 mL, Inhalation, q4hRT melatonin 3 mg tablet 6 mg 2 tab(s), Oral, qHS morphine 2 mg/mL 1 mL syringe 1 mg 0.5 mL, IV Push, q3h ondansetron 2 mg/ 1 mL 2 mL INJ 4 mg 2 mL, IV Push, q4h oxycodone 5 mg tablet (immediate release) 5 mg 1 tab(s), Oral, q4h tramadol 50 mg Tablet 50 mg 1 tab(s), Oral, q4h Lab Results 04/25 05:36 WBC: 9.6 Hgb: 12.8 L Hct: 36.6 L Platelet: 218 Neutrophil %: 77.1 Glucose Level: 120 H Sodium Level: 148 H Potassium Level: 3.5 BUN: 26 H Creatinine Lvl (s): 0.84 04/24 05:29 WBC: 12.3 H Hgb: 13.1 L Hct: 37.7 L Platelet: 226 Neutrophil %: 82.5 H Glucose Level: 111 H Sodium Level: 146 H Potassium Level: 3.4 L BUN: 30 H Creatinine Lvl (s): 0.84 EKG No qualifying data available. Assessment/Plan Acute hypoxic respiratory failure Pneumonia L1 compression fracture Lumbar spine foraminal stenosis Hypernatremia Hypertension BPH Anxiety Acute hypoxic respiratory failure secondary to pneumonia, currently on 2 L nasal cannula. Wean for oxygen saturation of 90% or greater. Encourage incentive spirometer Continue ceftriaxone for treatment of pneumonia. L1 compression fracture with lumbar spine foraminal stenosis on MRI. Continue conservative management, continue pain control and PT/OT. Will need outpatient follow-up with orthospine at [place] Hypernatremia, sodium 148. Encourage increased water intake. Patient states he drinks mostly Coca-Cola, per nursing has not drink much water here. Hypertension, blood pressure stable. BPH, continue Flomax Anxiety, patient takes as needed Ativan at home. Typically takes this 1-2 times per week. Was givenone-time dose of Ativan yesterday, did have some increased confusion overnight. Hold off on any other benzodiazepines as this most likely contributed to his confusion accompanied by narcotics. PT/OT recommending SNF, anticipate placement and discharge tomorrow. CODE STATUS: Full code Discussed with Dr. Schmidt Time Spent Total time spent reviewing labs, diagnostics, evaluating the patient, and medical decision makin minutes Digitally Signed by FORREST CAO on 04/25/2024 11:21 AM Digitally Signed by FORREST CAO on 04/25/2024 11:22 AM [facility]08-24-2024 Note Date of Service 04/04/2024 Chief Complaint Weakness, back pain Subjective Patient seen and examined at the bedside. In no acute distress. Continues to endorse back pain. No chest pain or shortness of breath. No nausea, vomiting, diarrhea Objective Vitals and Measurements T: 36.4 C (Oral) TMIN: 36.4 C (Oral) TMAX: 36.9 C (Oral) HR: 84 RR: 20 BP: 138/80 SpO2: 94% Intake and Output 7AM Yesterday to 7AM Today Intake and Output (Last 24 hours) Intake Oral Intake 240.00 Output Urine Voided 820.00 Stool Count 0.00 Emesis Count 0.00 Total Summary Total Intake 240.00 Total Output 820.00 Fluid Balance -580.00 Physical Exam Physical Exam General: Alert, appropriate and awake, oriented to time, people and place Skin: No rash. Warm, Dry, Intact HEENT: Head is normocephalic and atraumatic. No lesions. Pupils equal in size. Extraocular movements within normal limits. Nose: No septal deviation. Mouth: Oropharynx mucosa is without lesion. Neck: Supple. No lymphadenopathy, thyromegaly noted. Lungs: Bilaterally clear/diminished breath sounds with no crepitation or wheeze. Unlabored Cardiovascular: Heart is regular rhythm, S1S2, No extra-audible heart tones Abdomen: Abdomen is soft, nontender. Bowel sounds positive all four quadrants. Extremities: No clubbing, cyanosis or edema. Peripheral pulses palpable. No calf tenderness. Adequate peripheral circulation. Neurological: Following simple commands, moving all extremities. Weight Dosing Weight: 87.5 kg (04/22/24) Medications Medications (20) Active Scheduled: (12) acetaminophen 500 mg Tablet 1,000 mg 2 tab(s), Oral, TID albuterol - ipratropium 2.5 mg-0.5 mg/3 mL Inhal Gay UD 3 mL, Inhalation, QIDRT amLODIPine 5 mg tablet 10 mg 2 tab(s), Oral, qDay busPIRone 5 mg Tablet 15 mg 3 tab(s), Oral, BID carvedilol 12.5 mg tablet 12.5 mg 1 tab(s), Oral, BID cefTRIAXone 2 g, IV Piggyback, qDay heparin 5,000 units/mL (1 mL) vial 5,000 unit(s) 1 mL, Subcutaneous, q8h lidocaine patch REMOVAL 1 EA, Miscellaneous, q24h lidocaine topical 4% patch 1 patch(es), Transdermal, q24h losartan 50 mg tablet 100 mg 2 tab(s), Oral, qDay paroxetine 20 mg tablet 40 mg 2 tab(s), Oral, Daily tamsulosin 0.4 mg Capsule 0.4 mg 1 cap(s), Oral, qDay Continuous: (0) PRN: (8) acetaminophen 325 mg Tablet 650 mg 2 tab(s), Oral, q4h acetaminophen 325 mg Tablet 650 mg 2 tab(s), Oral, q6hr albuterol 0.083% Soln UD (2.5mg/3 mL) 2.5 mg 3 mL, Inhalation, q4hRT melatonin 3 mg tablet 6 mg 2 tab(s), Oral, qHS morphine 2 mg/mL 1 mL syringe 1 mg 0.5 mL, IV Push, q3h ondansetron 2 mg/ 1 mL 2 mL INJ 4 mg 2 mL, IV Push, q4h oxycodone 5 mg tablet (immediate release) 5 mg 1 tab(s), Oral, q4h tramadol 50 mg Tablet 50 mg 1 tab(s), Oral, q4h Lab Results 04/24 05:29 WBC: 12.3 H Hgb: 13.1 L Hct: 37.7 L Platelet: 226 Neutrophil %: 82.5 H Glucose Level: 111 H Sodium Level: 146 H Potassium Level: 3.4 L BUN: 30 H Creatinine Lvl (s): 0.84 04/23 05:00 WBC: 5.3 Hgb: 13.4 L Hct: 38.7 L Platelet: 235 Neutrophil %: 90.2 H Glucose Level: 173 H Sodium Level: 144 Potassium Level: 3.9 BUN: 31 H Creatinine Lvl (s): 0.93 EKG No qualifying data available. Assessment/Plan Acute hypoxic respiratory failure Pneumonia L1 compression fracture Lumbar spine foraminal stenosis Hypertension BPH Anxiety Acute hypoxic respiratory failure secondary to pneumonia, currently on 2 L nasal cannula. Wean for oxygen saturation of 90% or greater Continue antibiotics for pneumonia. Mycoplasma IgM is positive, however patient is nontoxic. No fevers. Respiratory ID panel PCR mycoplasma negative. Very low suspicion for acute mycoplasma infection, discontinue doxycycline. L1 compression fracture with lumbar spine foraminal stenosis on MRI. Continue conservative management, continue pain control and PT/OT. Will need outpatient follow-up with orthospine at [place] Hypertension, blood pressure stable. BPH, continue Flomax Anxiety, continue home medications CODE STATUS: Full code Discussed with Dr. Schmidt Time Spent Total time spent reviewing labs, diagnostics, evaluating the patient, and medical decision makin minutes Digitally Signed by FORREST CAO on 04/24/2024 11:27 AM [facility]08-23-2024 Note. MICRO - Microbiology PROCEDURE: Legionella Urine Ag [*1] SOURCE: Urine BODY SITE: COLLECTED DATE/TIME: 04/22/2024 22:09 EDT RECEIVED DATE/TIME: 04/23/2024 16:31 EDT START DATE/TIME: 04/23/2024 16:31 EDT FREE TEXT SOURCE: FINAL REPORTS Final Report [] Verified Date/Time/Personnel: 04/23/2024 16:49 EDT Presumptive negative for L. pneumophila serogroup 1 antigen in urine, suggesting no recent or current infection. Legionnaire's disease cannot be ruled out since other serogroups and species may also cause disease. Performing Locations *1: This test was performed at: [address], [facility] , [facility] ([place])04-23-2024 Note. MICRO - Microbiology PROCEDURE: Streptococcus Pneumoniae Urine Antig [^1 *1] SOURCE: Urine BODY SITE: COLLECTED DATE/TIME: 04/22/2024 22:09 EDT RECEIVED DATE/TIME: 04/23/2024 16:31 EDT START DATE/TIME: 04/23/2024 16:31 EDT FREE TEXT SOURCE: FINAL REPORTS Final Report [] Verified Date/Time/Personnel: 04/23/2024 16:49 EDT Presumptive negative for pneumococcal pneumonia, suggesting no current or recent pneumococcal infection. Infection due to Strep pneumoniae cannot be ruled out since the antigen present in the sample may be below the detection limit of the test. Interpretive Data ^1: Streptococcus Pneumoniae Urine Antig This test has not been evaluated on patients taking antibiotics for greater than 24 hours or on patients who have recently completed an antibiotic regimen. The accuracy of this test has not been proven in young children. Performing Locations *1: This test was performed at: [address], [id number] , [facility] ([place])04-23-2024 Evaluation + Plan noteExtracted from: Title:History and Physical Author:RADHA CAO WOOD LAST MAKER-VEGETABLE LOADER MACHINE OPERATOR Date:04/23/24 Acute hypoxic respiratory fa ilure Pneumonia L1 compression fracture Lumbar spine foraminal stenosis Hypertension BPH Anxiety Acute hypoxic respiratory failure secondary to pneumonia, currently on 2 L nasal cannula. Wean for oxygen saturation of 90% or greater Chest x-ray, no productive cough or fevers but is hypoxic with radiographic findings suggestive of pneumonia. Continue ceftriaxone. Continue doxycycline, awaiting respiratory ID panel. L1 compression fracture that is new, most likely from injury approximately 5 days ago. MRI L-spine done here demonstrating L1 burst fracture with less than 25% height loss with trace retropulsion. Stable remote T11 compression fracture. Spondylotic changes resulting in moderate to severe foraminal stenosis throughout the lumbar spine down to S1. No loss of bowel or bladder control, no lower extremity weakness, numbness, paresthesia. Dr. Pate who the patient follows with was consulted who recommended mobilization and pain control. To follow-up with him in the outpatient setting. Hypertension, blood pressure stable. BPH, continue Flomax Anxiety, continue home medications CODE STATUS: Full code Discussed with patient and at the bedside, discussed with Dr. Schmidt. Future Appointments Appointment Date:08/18/2024 03:00:00 PM Scheduled Provider:KATHERINE BRAND APRN-VEGETABLE LOADER MACHINE OPERATOR Location:[facility] ([place], [place]) Appointment Type:[facility] 08-23-2024 Note Date of Service 04/23/2024 Chief Complaint C/o bilat low back pain since Friday this week. States lifted a case of water and has been sore since. States unable to ambulate around house or get out of bed for the past few days. Denies numbness/tingling. Audible wheezing also noted. History of Present Illness This is a 79-year-old male With past medical history of T11 compression fracture, hypertension, BPH, anxiety. He presented to [facility] on 04/22/2024 with complaints of severe back pain. Has a history of chronic back pain with chronic T11 compression fracture. He is status post a kyphoplasty from November of this year. Approximately 5 days ago he had acute onset low back pain while lifting a case of water. Per patient, he has been immobile due to the pain and laying in bed for the past 5 days. Had no improvement prompting presentation to the ER. L-spine x-ray demonstrated compression deformity of the L1 vertebral body that is age-indeterminate but new since October of this year. Patient was hypoxic requiring 2 L nasal cannula. Chest x-ray demonstrating left upper lung patchy opacity thatmay represent developing infection. Was started on antibiotics for pneumonia with ceftriaxone and doxycycline. Lab work was largely unremarkable, however did have elevated liver enzymes with alk phosof 183, AST 79, ALT 125. On exam, patient continues to endorse low back pain. Does not feel he is able to mobilize. No chestpain, no shortness of breath. Does endorse a nonproductive cough. No nausea, vomiting, diarrhea. Review of Systems Review of Systems: Reviewed in detail, including general health, HEENT, cardiovascular, respiratory, gastrointestinal, genitourinary, endocrine, musculoskeletal, neurologic, vascular, skin, and psychiatric. All are negative except for those listed in the History of Present Illness Physical Exam Vitals and Measurements T: 36.7 C (Oral) TMIN: 36.5 C (Oral) TMAX: 36.7 C (Oral) HR: 86 RR: 20 BP: 134/82 SpO2: 95% HT: 175.3 cm WT: 87.5 kg Weight Dosing Weight: 87.5 kg (04/22/24) Physical Exam General: Alert, appropriate and awake, oriented to time, people and place Skin: No rash. Warm, Dry, Intact HEENT: Head is normocephalic and atraumatic. No lesions. Pupils equal in size. Extraocular movements within normal limits. Nose: No septal deviation. Mouth: Oropharynx mucosa is without lesion. Neck: Supple. No lymphadenopathy, thyromegaly noted. Lungs: Bilaterally clear/diminished breath sounds with no crepitation or wheeze. Unlabored Cardiovascular: Heart is regular rhythm, S1S2, No extra-audible heart tones Abdomen: Abdomen is soft, nontender. Bowel sounds positive all four quadrants. Extremities: No clubbing, cyanosis or edema. Peripheral pulses palpable. No calf tenderness. Adequate peripheral circulation. Neurological: Following simple commands, moving all extremities. Lab Results 04/23 05:00 WBC: 5.3 Hgb: 13.4 L Hct: 38.7 L Platelet: 235 Neutrophil %: 90.2 H Glucose Level: 173 H Sodium Level: 144 Potassium Level: 3.9 BUN: 31 H Creatinine Lvl (s): 0.93 04/22 18:28 WBC: 10.8 Hgb: 14.8 Hct: 42.5 Platelet: 223 Neutrophil %: 80.9 H Glucose Level: 111 H Sodium Level: 145 Potassium Level: 3.9 BUN: 22 H Creatinine Lvl (s): 0.67 L Assessment/Plan Acute hypoxic respiratory failure Pneumonia L1 compression fracture Lumbar spine foraminal stenosis Hypertension BPH Anxiety Acute hypoxic respiratory failure secondary to pneumonia, currently on 2 L nasal cannula. Wean for oxygen saturation of 90% or greater Chest x-ray, no productive cough or fevers but is hypoxic with radiographic findings suggestive of pneumonia. Continue ceftriaxone. Continue doxycycline, awaiting respiratory ID panel. L1 compression fracture that is new, most likely from injury approximately 5 days ago. MRI L-spine done here demonstrating L1 burst fracture with less than 25% height loss with trace retropulsion. Stable remote T11 compression fracture. Spondylotic changes resulting in moderate to severe foraminal stenosis throughout the lumbar spine down to S1. No loss of bowel or bladder control, no lower extremity weakness, numbness, paresthesia. Dr. Pate who the patient follows with was consulted who recommended mobilization and pain control. To follow-up with him in the outpatient setting. Hypertension, blood pressure stable. BPH, continue Flomax Anxiety, continue home medications CODE STATUS: Full code Discussed with patient and at the bedside, discussed with Dr. Schmidt. Problem List/Past Medical History Ongoing Anemia Anxiety Balance problem BPH (benign prostatic hyperplasia) Compression fracture of T11 vertebra Hypertension Insomnia Itchy scalp Low back pain Screening for colon cancer Screening for prostate cancer Urinary incontinence Well adult exam Procedure/Surgical History Cholecystectomy: 09/25/18 Colonoscopy Wrist joint Tonsillectomy Appendectomy Medications Home Medications (14) Active acetaminophen 500 mg oral tablet , PRN, Oral, q6hr amLODIPine 10 mg oral tablet 10 mg = 1 tab(s), Oral, qDay busPIRone 15 mg oral tablet 15 mg = 1 tab(s), Oral, BID carvedilol 12.5 mg oral tablet 12.5 mg = 1 tab(s), Oral, BID ferrous sulfate 325 mg (65 mg elemental iron) oral delayed release tablet 325 mg = 1 tab(s), Oral, qDay Flomax 0.4 mg oral capsule 0.4 mg = 1 cap(s), Oral, qDay ibuprofen 200 mg oral tablet , PRN, Oral, q6hr losartan 100 mg oral tablet 100 mg = 1 tab(s), Oral, qDay melatonin 5 mg oral tablet 5 mg = 1 tab(s), PRN, Oral, qHS Paxil 40 mg oral tablet 40 mg = 1 tab(s), Oral, Daily terazosin 2 mg oral capsule 2 mg = 1 cap(s), Oral, BID Vistaril 25 mg oral capsule 25 mg = 1 cap(s), PRN, Oral, QID Vitamin B12 1000 mcg oral tablet 1,000 mcg = 1 tab(s), Oral, qDay Vitamin C 500 mg oral tablet 1,000 mg = 2 tab(s), Oral, qDay Allergies Sallie Nausea Claritin Slo-Niacin atenolol buPROPion cyclobenzaprine Drowsiness erythromycin Social History Smoking Status - 05/26/2014 Current every day smoker Alcohol - Low Risk, 08/26/2018 Use: Current. 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 Days per week: 1-2 times/week., 03/11/2020 Home/Environment Primary Border Measurer: Self, lives with his Leida, and their son Juan. OTher risks in environment: no current smoke exposure. Spouse Name: Leida (10/16/1947)., 01/10/2022 Nutrition/Health Caffeine intake amount: 4 servings daily., 03/16/2019 Sexual - No Risk, 07/03/2018 Substance Abuse - Denies Substance Abuse, 08/26/2018 Use: Never., 09/16/2018 Tobacco - Denies Tobacco Use, 08/26/2018 Tobacco Use: Former smoker, quit more than 30 days ago. Type: Pipe. Number of years: 40. Stopped atage: 71 Years., 09/16/2018 Family History Alcohol abuse: Father. Autism: Son. COPD - Chronic obstructive pulmonary disease: Sister. Cirrhosis of liver: Father. Hepatic failure: Mother. Hyperlipidaemia: Sister. Lymphoma: Brother. Prostate cancer: Brother. Stable: Sister. Health Status Family Member(s) Family Member(s) Relationship: Mother, Name: Alvaro, Age: 77 Years, Cause: Headache failure Relationship: Father, Name: Alvaro, Age: 62 Years, Cause: Cirrhosis of the liver Relationship: Maternal Grandmother, Age: 69 Years, Cause: Parkinson Relationship: Paternal Grandfather, Age: 84 Years, Cause: Old age Relationship: Maternal Grandfather, Age: 91 Years Relationship: Paternal Grandfather, Age: 85 Years, Cause: Old age Relationship: Brother, Name: Alvaro, #1, Age: 70 Years, Cause: Suicide, depresion,prostate cancer Immunizations pneumococcal 13-valent conjugate vaccine: 0 unknown unit (11/28/14) pneumococcal 23-valent vaccine(Pneumovax: 0 unknown unit (10/28/12) SARS-CoV-2 (COVID-19) mRNA-1273 vaccine: 50 mcg (01/10/22) SARS-CoV-2 (COVID-19) mRNA-1273 vaccine: 0.25 unknown unit (07/19/21) SARS-CoV-2 (COVID-19) mRNA-1273 vaccine: 0.5 unknown unit (11/29/20) SARS-CoV-2 (COVID-19) mRNA-1273 vaccine: 0.5 unknown unit (11/01/20) tetanus/diphth/pertuss (Tdap) adult/adol: 0.5 mL (04/24/23) Code Status Code Status - Ordered -- 04/22/24 20:56:00 EDT, Full Code, Constant Order Digitally Signed by FORREST CAO on 04/23/2024 12:30 PM Digitally Signed by FORREST CAO on 04/23/2024 12:30 PM [facility]08-23-2024 Orthopaedic surgery Consult note Date of Service 04/23/2024 Reason for Consultation Back pain History of Present Illness The patient is a 79-year-old male known to myself who has been admitted for acute severe exacerbation of chronic back pain. He presented to the ER last night and was subsequently admitted. Lumbar MRIwas performed which showed subacute compression of the L1 vertebral body. The patient describes pain in the lumbar region and is worse with activity. He denies any other acute numbness tingling weakness or changes in bowel or bladder function Physical Exam Vitals and Measurements T: 36.7 C (Oral) TMIN: 36.5 C (Oral) TMAX: 36.7 C (Oral) HR: 86 RR: 20 BP: 134/82 SpO2: 95% HT: 175.3 cm WT: 87.5 kg Weight Dosing Weight: 87.5 kg (04/22/24) A&O, NAD Abdomen soft and nontender No tenderness of the cervical or thoracic spine Minimal tenderness of the upper lumbar midline Mild to moderate back pain with movement Extremities: Sensation and motor intact grossly without focal deficit. Pulses and reflexes are normal and symmetric Lab Results 04/23 05:00 WBC: 5.3 Hgb: 13.4 L Hct: 38.7 L Platelet: 235 Neutrophil %: 90.2 H Glucose Level: 173 H Sodium Level: 144 Potassium Level: 3.9 BUN: 31 H Creatinine Lvl (s): 0.93 04/22 18:28 WBC: 10.8 Hgb: 14.8 Hct: 42.5 Platelet: 223 Neutrophil %: 80.9 H Glucose Level: 111 H Sodium Level: 145 Potassium Level: 3.9 BUN: 22 H Creatinine Lvl (s): 0.67 L Assessment/Plan L1 compression fracture I had a lengthy discussion with the patient. I reviewed his imaging with him. He does have an acute/subacute compression fracture at L1. At this point I recommend pain control and mobilization as tolerated with physical therapy. The patient can follow-up in the clinic upon discharge for reevaluation and to discuss further treatment options. He understands and agrees with the treatment plan Problem List/Past Medical History Ongoing Anemia Anxiety Balance problem BPH (benign prostatic hyperplasia) Compression fracture of T11 vertebra Hypertension Insomnia Itchy scalp Low back pain Screening for colon cancer Screening for prostate cancer Urinary incontinence Well adult exam Procedure/Surgical History Cholecystectomy: 09/25/18 Colonoscopy Tonsillectomy Wrist joint Appendectomy Medications Inpatient albuterol 2.5 mg/3 mL (0.083%) inhalation solution, 2.5 mg= 3 mL, Inhalation, q4hRT, PRN amLODIPine, 10 mg= 2 tab(s), Oral, qDay busPIRone, 15 mg= 3 tab(s), Oral, BID carvedilol 12.5 mg oral tablet, 12.5 mg= 1 tab(s), Oral, BID DuoNeb, 3 mL, Inhalation, QIDRT Flomax, 0.4 mg= 1 cap(s), Oral, qDay heparin 5000 units/mL injection, 5000 unit(s)= 1 mL, Subcutaneous, q8h lidocaine (lidocaine Patch REMOVAL), 1 EA, Miscellaneous, q24h lidocaine 4% topical patch, 1 patch(es), Transdermal, q24h losartan, 100 mg= 2 tab(s), Oral, qDay melatonin, 6 mg= 2 tab(s), Oral, qHS, PRN morphine, 1 mg= 0.5 mL, IV Push, q3h, PRN Paxil, 40 mg= 2 tab(s), Oral, Daily Rocephin terazosin, 2 mg= 1 cap(s), Oral, BID traMADol, 50 mg= 1 tab(s), Oral, q4h, PRN Tylenol, 650 mg= 2 tab(s), Oral, q4h, PRN Tylenol, 650 mg= 2 tab(s), Oral, q6hr, PRN Tylenol, 1000 mg= 2 tab(s), Oral, TID Vibramycin Zofran, 4 mg= 2 mL, IV Push, q4h, PRN Home acetaminophen 500 mg oral tablet, Oral, q6hr, PRN amLODIPine 10 mg oral tablet, 10 mg= 1 tab(s), Oral, qDay, 11 refills busPIRone 15 mg oral tablet, 15 mg= 1 tab(s), Oral, BID, 3 refills carvedilol 12.5 mg oral tablet, 12.5 mg= 1 tab(s), Oral, BID, 3 refills ferrous sulfate 325 mg (65 mg elemental iron) oral delayed release tablet, 325 mg= 1 tab(s), Oral, qDay Flomax 0.4 mg oral capsule, 0.4 mg= 1 cap(s), Oral, qDay, 11 refills ibuprofen 200 mg oral tablet, Oral, q6hr, PRN losartan 100 mg oral tablet, 100 mg= 1 tab(s), Oral, qDay, 3 refills melatonin 5 mg oral tablet, 5 mg= 1 tab(s), Oral, qHS, PRN Paxil 40 mg oral tablet, 40 mg= 1 tab(s), Oral, Daily, 3 refills terazosin 2 mg oral capsule, 2 mg= 1 cap(s), Oral, BID Vistaril 25 mg oral capsule, 25 mg= 1 cap(s), Oral, QID, PRN Vitamin B12 1000 mcg oral tablet, 1000 mcg= 1 tab(s), Oral, qDay Vitamin C 500 mg oral tablet, 1000 mg= 2 tab(s), Oral, qDay Allergies Sallie Nausea Claritin Slo-Niacin atenolol buPROPion cyclobenzaprine Drowsiness erythromycin Social History Smoking Status - 05/26/2014 Current every day smoker Alcohol - Low Risk, 08/26/2018 Use: Current. 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 Days per week: 1-2 times/week., 03/11/2020 Home/Environment Primary Border Measurer: Self, lives with his Leida, and their son Juan. OTher risks in environment: no current smoke exposure. Spouse Name: Leida (10/16/1947)., 01/10/2022 Nutrition/Health Caffeine intake amount: 4 servings daily., 03/16/2019 Sexual - No Risk, 07/03/2018 Substance Abuse - Denies Substance Abuse, 08/26/2018 Use: Never., 09/16/2018 Tobacco - Denies Tobacco Use, 08/26/2018 Tobacco Use: Former smoker, quit more than 30 days ago. Type: Pipe. Number of years: 40. Stopped atage: 71 Years., 09/16/2018 Family History Alcohol abuse: Father. Autism: Son. COPD - Chronic obstructive pulmonary disease: Sister. Cirrhosis of liver: Father. Hepatic failure: Mother. Hyperlipidaemia: Sister. Lymphoma: Brother. Prostate cancer: Brother. Stable: Sister. Health Status Family Member(s) Family Member(s) Relationship: Mother, Name: Alvaro, Age: 77 Years, Cause: Headache failure Relationship: Father, Name: Alvaro, Age: 62 Years, Cause: Cirrhosis of the liver Relationship: Maternal Grandmother, Age: 69 Years, Cause: Parkinson Relationship: Paternal Grandfather, Age: 84 Years, Cause: Old age Relationship: Maternal Grandfather, Age: 91 Years Relationship: Paternal Grandfather, Age: 85 Years, Cause: Old age Relationship: Brother, Name: Alvaro, #1, Age: 70 Years, Cause: Suicide, depresion,prostate cancer Immunizations pneumococcal 13-valent conjugate vaccine: 0 unknown unit (11/28/14) pneumococcal 23-valent vaccine(Pneumovax: 0 unknown unit (10/28/12) SARS-CoV-2 (COVID-19) mRNA-1273 vaccine: 50 mcg (01/10/22) SARS-CoV-2 (COVID-19) mRNA-1273 vaccine: 0.25 unknown unit (07/19/21) SARS-CoV-2 (COVID-19) mRNA-1273 vaccine: 0.5 unknown unit (11/29/20) SARS-CoV-2 (COVID-19) mRNA-1273 vaccine: 0.5 unknown unit (11/01/20) tetanus/diphth/pertuss (Tdap) adult/adol: 0.5 mL (04/24/23) Digitally Signed by BRODY PATE DO on 04/23/2024 11:58 AM [facility]08-23-2024 HCoV 229E RNA DARYA+non-probe Ql (Nph) Not Detected *NA* (04/23/24 10:33 AM) Auto Viro/Sero [id number] Note ORIGINAL INDICATION:ORDERING SYSTEM PROVIDED HISTORY: Reason for Exam: Worsening lumbar pain, inability to ambulate TECHNIQUE: MRI of the lumbar spine was performed without the administration of intravenous contrast, according to standard protocol. COMPARISON: MRI lumbar spine 11/18/2023, lumbar spine x-rays 04/22/2024 FINDINGS: ALIGNMENT: Trace degenerative anterolisthesis of L5 on S1. VERTEBRAE: Redemonstrated is a remote compression fracture of the T11 vertebral body status post augmentation changes. Height loss is greater than 25% and unchanged. There is a recent L1 burst fracture with less than 25% height loss extending through the left paracentral posterior cortex (sagittal T2 image 10 series 5). Diffuse STIR hyperintensity with corresponding T1 hypointensity is noted. Trace posterosuperior retropulsion. There is laxity of the posterior longitudinal ligament which appears intact (sagittal T2 image 9). No epidural hematoma. Remote fracture of the approximate S2 vertebral body. DISCS: Widespread disc desiccation. Preserved disc height at each lumbar level. Widened disc height at T11-T12, T12-L1, and L1-L2 associated with adjacent compression fractures. CONUS MEDULLARIS AND CAUDA EQUINA: The conus medullaris terminates at L1-L2 and is normal. The cauda equina are unremarkable. SPINAL CANAL: Overall reduced caliber of the spinal canal secondary to congenitally short pedicles. PARAVERTEBRAL SOFT TISSUES: Mild prevertebral and bilateral paraspinal edema at the L1 level. Multilevel posterior paraspinous muscle atrophy. EVALUATION OF INDIVIDUAL LEVELS DEMONSTRATES: T12-L1: No disc herniation, central canal stenosis or significant foraminal narrowing. Mild bilateral facet arthrosis. L1-L2: No disc herniation, central canal stenosis or significant foraminal narrowing. Mild right foraminal narrowing. Mild bilateral facet arthrosis. L2-L3: Small circumferential disc bulge, small canal, and mild facet arthrosis causes mild bilateral foraminal narrowing without central canal stenosis. L3-L4: Small circumferential disc bulge asymmetric to the right extraforaminal zone and mild facet arthrosis causes moderate bilateral foraminal narrowing the central canal stenosis. L4-L5: Diffuse posterior disc bulge, dorsal lipomatosis, congenitally small canal, ligamentum flavum hypertrophy and facet arthrosis causes bilateral lateral recess narrowing, mild to moderate central canal stenosis and moderately severe bilateral foraminal narrowing. Disc may impinge the exited right L4 nerve root. L5-S1: Small diffuse posterior disc bulge, disc unroofing associated with an anterolisthesis of L5 on S1, and moderately severe facet arthrosis causes severe left and ckdh-ei-aqolfopd right foraminal narrowing without central canal stenosis. LIMITED EVALUATION OF UPPER SACRUM AND SACROILIAC JOINTS: Degenerative changes of the bilateral sacroiliac joints. IMPRESSION: 1. Recent L1 burst fracture with less than 25% height loss, trace retropulsion and without an associated epidural hematoma. 2. Stable remote compression fracture of the T11 vertebral body with post augmentation changes. 3. Multilevel spondylotic changes resulting in moderate to severe foraminal narrowing including moderate bilateral at L3-L4, moderately severe bilateral L4-5, and severe left and cekw-di-doyalrog right at L5-S1. 4. Level by level findings as described. Interpreted by: Modesto Lunsford MD Preliminary Report By: Modesto Lunsford MD Electronically signed By Modesto Lunsford MD Dictated Date: 04/23/2024 10:34:51 AM Prelim Date: 04/23/2024 10:53:15 AM Sign Date: 04/23/2024 10:53:15 AM [facility] Note ORIGINAL EXAMINATION: ONE XRAY VIEW OF THE CHEST04/22/2024 7:55 pm COMPARISON: Chest radiograph 09/30/2018 HISTORY: ORDERING SYSTEM PROVIDED HISTORY: Reason for Exam: Low oxygen, wheezing. chest pain FINDINGS: Stable cardiomediastinal silhouette. Patchy retrocardiac and left upper lung opacities. Low lung volumes with bronchovascular crowding bilaterally. No pneumothorax or large pleural effusion. No acute osseous abnormalities. IMPRESSION: Hypoventilatory changes. Retrocardiac and left upper lung patchy opacities may represent a developing infectious/inflammatory process such as pneumonia. Follow-up to resolution is recommended. I have personally reviewed the images and agree with the resident's findings and interpretation. Interpreted by: Ephraim Quinones Preliminary Report By: Diomedes Felix Electronically signed By Ephraim Quinones Dictated Date: 04/22/2024 8:10:38 PM Prelim Date: 04/22/2024 8:17:13 PM Sign Date: 04/22/2024 10:33:35 PM Ordering Provider: [facility]08-22[facility]2024 Note ORIGINAL EXAMINATION: 3 XRAY VIEWS OF THE LUMBAR SPINE COMPARISON: CT lumbar spine 08/11/2023, MR lumbar spine 11/18/2023 HISTORY: ORDERING SYSTEM PROVIDED HISTORY: Reason for Exam: Pt lifted a case of water and has been in bed for 4 days. Hx of a compression fx at T11 from a fall. low back pain FINDINGS: 5 lumbar-type vertebral bodies are visualized. Compression deformity of the L1 vertebral body, which appears new from prior MR. Remote T11 compression deformity with vertebral cement augmentation. No significant spondylolisthesis. Pixu-un-pxbqvgkj multilevel degenerative changes with intervertebral disc height loss, endplate osteophyte formation, and facet arthrosis. The visualized bony pelvis is unremarkable. Pelvic phleboliths. Scattered vascular calcifications. IMPRESSION: Compression deformity of the L1 vertebral body, of indeterminate age, however new from prior 11/18/2023 exam. Remote T11 compression deformity status post augmentation. I have personally reviewed the images and agree with the resident's findings and interpretation. Interpreted by: Ephraim Quinones Preliminary Report By: Diomedes Felix Electronically signed By Ephraim Quinones Dictated Date: 04/22/2024 8:00:23 PM Prelim Date: 04/22/2024 8:05:51 PM Sign Date: 04/22/2024 10:32:15 PM [facility]ing [facility] Sinus rhythm Borderline repolarization abnormality Compared to ECG at 09/25/2018 15:33:45 BORDERLINE ECG Electronic Signature: SIERRA BLACK DO 04/22/2024 18:29:41[facility] 03-19-2024 Note ORIGINAL HISTORY: Fall in August, low back pain COMPARISON: CT 11 August 2023 TECHNIQUE: 1. Sagittal T1-weighted images. 2. Sagittal T2-weighted images with and without fat saturation. 3. Axial T1-weighted images. 4. Axial T2-weighted images. FINDINGS: There are 5 lumbar type vertebral bodies for the purpose of this dictation. There is mild grade 1 anterolisthesis at L5-S1. The lumbar vertebral bodies are intact. There is a compression deformity at T11, with greater than 25% loss of anterior vertebral body height. There is mild edema in the T11 body. There is possibly a minimal compression deformity along the superior endplate of T12. There is disc desiccation and disc space narrowing in the lumbar spine, most prominently at L4-L5. The tip of the conus is at the L2 level. There is no abnormal signal within the visualized spinal cord. The specific findings by level: L2-L3: There is mild facet and ligamentum flavum hypertrophy. L3-L4: There is a mild posterior disc bulge. There is mild facet ligamentum flavum hypertrophy. L4-L5: There is a mild posterior disc bulge with a mild superimposed central protrusion. There is mild facet and ligamentum flavum hypertrophy. There is mild stenosis. L5-S1: There is a mild posterior disc bulge/pseudo bulge with a small superimposed central extrusion. There is mild to moderate left and mild right facet hypertrophy. 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 Milder degenerative changes at the remaining lumbar levels, without significant stenosis. T11 compression fracture, likely acute to subacute, with edema in the T11 body. There is questionable slight involvement of the superior endplate of T12 is well. This area is not covered on the comparison CT. Interpreted by: Mark Narvaez MD Preliminary Report By: Mark Narvaez MD Electronically signed By Mark Narvaez MD Dictated Date: 11/18/2023 3:51:11 PM Prelim Date: 11/18/2023 3:56:09 PM Sign Date: 11/18/2023 3:56:09 PM Ordering Provider: [facility]2024 Hospital Discharge instructions Patient Education 10/02/2023 19:58:09 Shingles (Herpes Zoster) Shingles (Herpes Zoster) Talk to your healthcare provider about the shingles vaccine. Shingles is also called herpes zoster. It is a painful skin rash caused by the herpes zoster virus.This is the same virus that causes chickenpox. After a person has chickenpox, the virus remains inactive in the nerve cells. Years later, the virus can become active again and travel to the skin. Most people have shingles only once, but it is possible to have it more than once. What are the risk factors for shingles? Anyone who has ever had chickenpox can develop shingles. But your risk is greater if you: Are 50 years of age or older Have an illness that weakens your immune system, such as HIV/AIDS Have cancer, especially Hodgkin disease or lymphoma Take medicines that weaken your immune system What are the symptoms of shingles? The first sign of shingles is usually pain, burning, tingling, or itching on one part of your face or body. You may also feel as if you have the flu, with fever and chills. A red rash with small blisters appears within a few days. The rash may appear as follows: oThe blisters can occur anywhere, but they re most common on the back, chest, or abdomen. oThey usually appear on only one side of the body, spreading along the nerve pathway where the virus was inactive. oThe rash can also form around an eye, along one side of the face or neck, or in the mouth. oIn a few people, usually those with weakened immune systems, shingles appear on more than one partof the body at once. After a few days, the blisters become dry and form a crust. The crust falls off in days to weeks. The blisters generally do not leave scars. How is shingles treated? For most people, shingles heals on its own in a few weeks. But treatment is recommended to help relieve pain, speed healing, and reduce the risk of complications. Antiviral medicines are prescribed within the first 72 hours of the appearance of the rash. To lessen symptoms: Apply ice packs (wrapped in a thin towel) or cool compresses, or soak in a cool bath. Use calamine lotion to calm itchy skin. Ask your healthcare provider about bydv-xme-nascdme pain relievers. If your pain is severe, your healthcare provider may prescribe stronger pain medicines. What are the complications of shingles? Shingles often goes away with no lasting effects. But some people have serious problems long after the blisters have healed: Postherpetic neuralgia. This is the most common complication. It is severe nerve pain at the place where the rash used to be. It can last for months, or even years after you have had shingles. Medicines can be prescribed to help relieve the pain and improve quality of life. Bacterial infection. Shingles blisters may become infected with bacteria. Antibiotic medicine is used to treat the infection. Eye problems. A person with shingles on the face should see his or her healthcare provider right away. Shingles can cause serious problems with vision, and even blindness. Very rarely shingles can also lead to pneumonia, hearing problems, brain inflammation, or even . When to seek medical care Contact your healthcare provider if you experience any of the following: Symptoms that don t go away with treatment A rash or blisters near your eye Increased drainage, fever, or rash after treatment, or severe pain that doesn t go away How can shingles be prevented? You can only get shingles if you have had chickenpox in the past. Those who have never had chickenpox can get the virus from you. Although instead of developing shingles, the person may get chickenpox. Until your blisters form scabs, avoid contact with others, especially the following: women who have never had chickenpox or the vaccine Infants who were born early (prematurely) or who had low weight at People with weak immune system (for example, people receiving chemotherapy for cancer, people who have had organ transplants, or people with HIV infections) The shingles vaccine Shingles vaccines are available to help prevent shingles or make it less painful. Vaccination is recommended for adults 50 and older, even if you've had shingles in the past. Talk with your healthcare provider about the most appropriate time for you to get vaccinated, and which vaccine is best for you. 6981-3370 The [employer]. [address] [place] [address]. All rights reserved. This information is not intended as a substitute for professional medical care. Always follow yourhealthcare professional's instructions. 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 The following is importantdischarge information regarding your hospital visit. Diagnosis from Today's Visit Rash Shingles What to Do Next Instructions from Your Care Team No qualifying data available. Post Acute Orders No qualifying data available. You Need to Schedule the Following Appointments Follow Up with KATHERINE BRAND When Within 2-4 days Where: [address] [place] [phone] Allergies Sallie (Nausea) Claritin Slo-Niacin atenolol buPROPion cyclobenzaprine (Drowsiness) erythromycin Medications Please ask your primary doctor or pharmacist before taking any other medication not listed, including over the counter drugs, herbal medications, vitamins and or supplements as they may interact withur home medications. What How Much When Why Instructions Last Dose New valACYclovir (Valtrex 1 g oral tablet) 1 tab(s) by mouth Two (2) times a day Duration: 7 Days Printed Prescription Unchanged ascorbic acid (Vitamin C 500 mg oral tablet) 2 tab(s) by mouth Once a day Unchanged carvedilol (Coreg 12.5 mg oral tablet) See instructions 1 Tablet in the Morning and 0.5 tablet in the PM Unchanged cyanocobalamin (Vitamin B12 1000 mcg oral tablet) 1 tab(s) by mouth Once a day Unchanged ferrous sulfate (ferrous sulfate 325 mg (65 mg elemental iron) oral delayed release tablet) 1 tab(s) by mouth Once a day Unchanged LORazepam (LORazepam 1 mg oral tablet) 1 tab(s) by mouth Once a day as needed for for anxiety Anxiety Duration: 30 Days Unchanged losartan (losartan 100 mg oral tablet) 1 tab(s) by mouth Once a day Unchanged melatonin (melatonin 5 mg oral tablet) 1 tab(s) by mouth Daily at bedtime as needed for as needed for insomnia Unchanged PARoxetine (Paxil 40 mg oral tablet) 1 tab(s) by mouth Every day Duration: 90 Days Unchanged terazosin (terazosin 2 mg oral capsule) 1 cap by mouth Two (2) times a day Unchanged tetrahydrozoline ophthalmic (Visine A.C. 0.05%-0.25% ophthalmic solution) Please take this list to your next doctor s visit. Bring all medications you take, including over the counter medications, herbals and other supplements with you to your doctor s visit. Patients and families are reminded to discard old lists and to update any records with all medication providers or retail pharmacies. Medication Leaflets valacyclovir (mike a LENARD escamilla) Valtrex What is the most important information I should know about valacyclovir? Follow all directions on your medicine label and package. Tell each of your healthcare providers about all your medical conditions, allergies, and all medicines you use. What is valacyclovir? Valacyclovir is an antiviral medicine that is used to treat or prevent herpes virus episodes, including genital herpes or shingles (herpes zoster) in adults. Valacyclovir is used to reduce the chance that an adult with genital herpes will pass this virus jose uninfected sex partner. Valacyclovir is also used to treat cold sores in adults and children at least 12 years old, or chickenpox in children 2 to 18 years old. There is no cure for herpes and valacyclovir will not prevent you from developing symptoms in the future. If you have genital herpes, your sex partner may be infected even if they have no symptoms. Amedical test is the only way to accurately diagnose genital herpes. Valacyclovir may also be used for purposes not listed in this medication guide. What should I discuss with my healthcare provider before taking valacyclovir? You should not use this medicine if you are allergic to valacyclovir or acyclovir (Zovirax). Tell your doctor if you have ever had: kidney disease (or if you are on dialysis); a weak immune system; HIV or AIDS; or a kidney transplant or bone marrow transplant. Tell your doctor if you are or plan to become . Herpes can be passed to your baby during childbirth if you have a genital lesion when your baby is born. If you have genital herpes, it is very important to prevent herpes lesions during . Take your medicine as directed to best control your infection. It may not be safe to breastfeed while using this medicine. Ask your doctor about any risk. Do not give this medicine to a child without medical advice. How should I take valacyclovir? Follow all directions on your prescription label and read all medication guides or instruction sheets. Your doctor may occasionally change your dose. Use the medicine exactly as directed. Start taking valacyclovir as soon as possible after the first appearance of symptoms (such as tingling, burning, blisters, or rash). This medicine may not be effective if taken after you already havesymptoms. You may take valacyclovir with or without food. Tell your doctor if a child taking this medicine cannot swallow the valacyclovir tablet. Your pharmacist may prepare an oral suspension (liquid) form of valacyclovir. Shake this suspensionbefore you measure a dose. Use the dosing syringe provided, or use a medicine dose-measuring device(not a kitchen spoon). Lesions caused by herpes viruses should be kept as clean and dry as possible. Wearing loose clothing may help to prevent irritation of the lesions. Some herpes infections need to be treated for longer than others. You may need to take the medicinefor only 1 day or for just a few days. To prevent recurrent genital herpes, you may need to take valacyclovir for up to 1 year. Use this medicine for the full prescribed length of time, even if your symptoms quickly improve. Follow your doctor's dosing instructions very carefully. Taking more valacyclovir than prescribed will not make this medicine more effective. Drink plenty of water while you are taking valacyclovir to keep your kidneys working properly. Store at room temperature away from moisture and heat. Keep the bottle tightly closed when not in use. Store the oral suspension in a refrigerator and throw away suspension any left over after 28 days of use. What happens if I miss a dose? Take the medicine as soon as you can, but skip the missed dose if it is almost time for your next dose. Do not take two doses at one time. What happens if I overdose? Seek emergency medical attention or call the Poison Help line at . What should I avoid while taking valacyclovir? Avoid sexual intercourse or use a latex condom to help keep you from spreading the herpes virus to others. Avoid letting infected areas come into contact with other people. Avoid touching an infectedarea and then touching your eyes. Wash your hands frequently to prevent the spread of infection. Valacyclovir will not prevent the spread of sexually transmitted diseases other than the virus thatcauses genital herpes. Do not share this medicine with another person, even if they have the same symptoms you have. What are the possible side effects of valacyclovir? Get emergency medical help if you have signs of an allergic reaction: hives; difficult breathing; swelling of your face, lips, tongue, or throat. Call your doctor at once if you have: confusion, agitation, or you feel shaky or unsteady; hallucinations (seeing or hearing things that are not real); problems with speech; a seizure; or kidney problems--little or no urination, swelling in your feet or ankles, feeling tired or short ofbreath. Serious side effects may be more likely in adults who are 65 or older. Stop taking valacyclovir and call your doctor right away if you have any of the following signs of a serious side effect that can harm red blood cells: fever, pale skin; unusual bleeding (nosebleeds, bleeding gums); red or pink urine, little or no urination; purple or red spots on the skin (not related to herpes or chickenpox); feeling weak or tired; stomach pain, bloody diarrhea, vomiting; or swelling in your face, hands, or feet. Common side effects may include: nausea, stomach pain; or headache. This is not a complete list of side effects and others may occur. Call your doctor for medical advice about side effects. You may report side effects to FDA at 5-484-SYL-9627. What other drugs will affect valacyclovir? Valacyclovir can harm your kidneys, especially if you also use certain medicines for infections, cancer, osteoporosis, organ transplant rejection, bowel disorders, high blood pressure, or pain or arthritis (including Advil, Motrin, and Aleve). Other drugs may affect valacyclovir, including prescription and disj-hwn-ohwldyq medicines, vitamins, and herbal products. Tell your doctor about all your current medicines and any medicine you startor stop using. Where can I get more information? Your pharmacist can provide more information about valacyclovir. Remember, keep this and all other medicines out of the reach of children, never share your medicines with others, and use this medication only for the indication prescribed. Every effort has been made to ensure that the information provided by [employer]') is accurate, up-to-date, and complete, but no guarantee is made to that effect. Drug information contained herein may be time sensitive. [employer] information has been compiled for use by healthcare practitioners and consumers in the [place] and therefore [employer] does not warrant that uses outside of the [place] are appropriate, unless specifically indicated otherwise. [employer] drug information does not endorse drugs, diagnose patients or recommend therapy. [employer] drug information isan informational resource designed to assist licensed healthcare practitioners in caring for their p atients and/or to serve consumers viewing this service as a supplement to, and not a substitute for, the expertise, skill, knowledge and judgment of healthcare practitioners. The absence of a warningfor a given drug or drug combination in no way should be construed to indicate that the drug or drug combination is safe, effective or appropriate for any given patient. [employer] does not assume any responsibility for any aspect of healthcare administered with the aid of information [employer] provides. The information contained herein is not intended to cover all possible uses, directions, precautions, warnings, drug interactions, allergic reactions, or adverse effects. If you have questions about the drugs you are taking, check with your doctor, nurse or pharmacist. Copyright 4930-5338 [employer]. Version: 12.. Revision Date: 10/27/2020. Education Materials Shingles (Herpes Zoster) Talk to your healthcare provider about the shingles vaccine. Shingles is also called herpes zoster. It is a painful skin rash caused by the herpes zoster virus.This is the same virus that causes chickenpox. After a person has chickenpox, the virus remains inactive in the nerve cells. Years later, the virus can become active again and travel to the skin. Most people have shingles only once, but it is possible to have it more than once. What are the risk factors for shingles? Anyone who has ever had chickenpox can develop shingles. But your risk is greater if you: Are 50 years of age or older Have an illness that weakens your immune system, such as HIV/AIDS Have cancer, especially Hodgkin disease or lymphoma Take medicines that weaken your immune system What are the symptoms of shingles? The first sign of shingles is usually pain, burning, tingling, or itching on one part of your face or body. You may also feel as if you have the flu, with fever and chills. A red rash with small blisters appears within a few days. The rash may appear as follows: oThe blisters can occur anywhere, but they re most common on the back, chest, or abdomen. oThey usually appear on only one side of the body, spreading along the nerve pathway where the virus was inactive. oThe rash can also form around an eye, along one side of the face or neck, or in the mouth. oIn a few people, usually those with weakened immune systems, shingles appear on more than one partof the body at once. After a few days, the blisters become dry and form a crust. The crust falls off in days to weeks. The blisters generally do not leave scars. How is shingles treated? For most people, shingles heals on its own in a few weeks. But treatment is recommended to help relieve pain, speed healing, and reduce the risk of complications. Antiviral medicines are prescribed within the first 72 hours of the appearance of the rash. To lessen symptoms: Apply ice packs (wrapped in a thin towel) or cool compresses, or soak in a cool bath. Use calamine lotion to calm itchy skin. Ask your healthcare provider about zbci-dcx-ulfxibo pain relievers. If your pain is severe, your healthcare provider may prescribe stronger pain medicines. What are the complications of shingles? Shingles often goes away with no lasting effects. But some people have serious problems long after the blisters have healed: Postherpetic neuralgia. This is the most common complication. It is severe nerve pain at the place where the rash used to be. It can last for months, or even years after you have had shingles. Medicines can be prescribed to help relieve the pain and improve quality of life. Bacterial infection. Shingles blisters may become infected with bacteria. Antibiotic medicine is used to treat the infection. Eye problems. A person with shingles on the face should see his or her healthcare provider right away. Shingles can cause serious problems with vision, and even blindness. Very rarely shingles can also lead to pneumonia, hearing problems, brain inflammation, or even . When to seek medical care Contact your healthcare provider if you experience any of the following: Symptoms that don t go away with treatment A rash or blisters near your eye Increased drainage, fever, or rash after treatment, or severe pain that doesn t go away How can shingles be prevented? You can only get shingles if you have had chickenpox in the past. Those who have never had chickenpox can get the virus from you. Although instead of developing shingles, the person may get chickenpox. Until your blisters form scabs, avoid contact with others, especially the following: women who have never had chickenpox or the vaccine Infants who were born early (prematurely) or who had low weight at People with weak immune system (for example, people receiving chemotherapy for cancer, people who have had organ transplants, or people with HIV infections) The shingles vaccine Shingles vaccines are available to help prevent shingles or make it less painful. Vaccination is recommended for adults 50 and older, even if you've had shingles in the past. Talk with your healthcare provider about the most appropriate time for you to get vaccinated, and which vaccine is best for you. 0588-8623 The [employer]. [address] [place] [address], [place] [address]. All rights reserved. This information is not intended as a substitute for professional medical care. Always follow yourhealthcare professional's instructions. Additional Information VACCINATE! IT SAVES LIVES! Members of the community who have not yet received the COVID-19 vaccine and would like to receive it can visit one of [facility] vaccine clinics. There are many vaccine clinic locations within the [facility]. For locations and available times, please visit [email or web address] It is important to note that some COVID mobile vaccine clinics are held outdoors and may be canceled in rainy or stormy conditions. To learn more about pediatric vaccinations (ages 5-11), we invite you to visit the [facility] webpage. https://www.[email or web address]/[email or web address]-[email or web address] stions.htmlTo learn more about the COVID-19 vaccine, we invite you to visit the CDC website for a list of frequently asked questions. https://www.cdc.gov/coronavirus/2019-ncov/vaccines/faq.html [facility] Patient Portal Access Instructions: Stay connected with your healthcare team and access your personal medical information anytime with the [facility] Patient Portal. If you would like a full copy of your medical records please contact the [facility] Medical Records Department Friday through Friday between 8a.m. and 4:30p.m. Please follow the directions below to access the portal: 1.Access the email account you provided upon registration to the [facility].2.Look for an invitation email from [facility].3.Open the email and access the invitation link: Accept Invitation to [facility]4.Fill in the required britt to create your account. Sign into [email or web address] with your username and password that you created in the above steps to stay up to date. You can then view a summary of results, a summary of your visits, and the ability to download your summaries to your computer or send the information securely to a physician. Remember that your healthcare information is confidential, so carefully consider who you will allow to register on the [facility] Patient Portal for access to your information. You can also access the [facility] Patient Portal on the [employer]. Simply click on Health Records under [employer] and then click on the [employer] logo. HOW TO SAFELY DISPOSE OF PRESCRIPTION MEDICATIONS Please use one of the following methods to safely dispose of your unused medications. 1.Use a drug disposal kit: the drug disposal pouch allows you to safely discard your old and unuseddrugs. Ask your nurse to give you one when you are discharged.2.Visit a local take-back location: Many local pharmacies and police departments have programs that collect old and unwanted prescriptiondrugs. Call your local pharmacy or go to http://[place].Moat/2K4Zb3r to find one close to you.3.Make use of household items: Use cat litter or old coffee grounds to dispose medications if other options arenot available. Mix your drugs with these household products, seal them in an airtight container andthrow it into the garbage. Call [facility]: [phone] to be sure your drugs can be disposed of in this way. Some medicines may require a different approach.4.Never flush your medications down the toilet. IF YOU HAVE BEEN PRESCRIBED AN OPIOIDS FOR PAIN If you have been prescribed an opioid (such as hydrocodone, oxycodone or morphine), it is critical to understand the possible side effects and risks of opioid pain medications. Even when taken as directed, opioids can have several side effects including: Tolerance, meaning you might need to take more of a medication for the same pain relief. Nausea, vomiting and/or constipation. Sleepiness, dizziness, dry mouth, confusion, depression or itching. Physical dependence, meaning you have withdrawal symptoms when a medication is stopped ? this can develop within a few days. KNOW YOUR RESPONSIBILITIES It is important to know exactly how much and how often to take the opioid pain medications you are prescribed. Never take opioids in higher amounts or more often than prescribed. Do not combine opioids with alcohol or other drugs that cause drowsiness, such as benzodiazepines, also known as benzos,including diazepam and alprazolam, muscle relaxants or sleep aids. Never sell or share prescriptionopioids. This is illegal. Store opioids in a secure place and out of reach of others (including children, family, friends and visitors). The last page(s) of this document has been signed and retained as a CHART COPY Signatures Patient Education Materials Shingles (Herpes Zoster) Medication Leaflets valacyclovir My discharge plan and instructions have been reviewed and explained to me and IALVARO KENNETH C understand my current condition and have read and understand these discharge instructions. I have received a written copy of the plan/instructions. If I have questions, I am aware that I should contact my doctor. Patient/Hand Striper Signature: Date/Time: Relationship to Patient: Witness Name/Signature: [facility] No data available for this section [facility] + Plan note Future Appointments Appointment Date:12/10/2022 02:30:00 PM Scheduled Provider:KATHERINE BRAND APRN-BERTHA Location:[facility] Appointment Type:PC OV Follow Up [facility] Evaluation + Plan note Future Appointments Appointment Date:06/10/2023 02:30:00 PM Scheduled Provider:KATHERINE BRAND APRN-BERTHA Location:[facility] Appointment Type:PC OV [facility] Evaluation + Plan note Future Appointments Appointment Date:04/24/2023 01:30:00 PM Scheduled Provider:KATHERINE BRAND APRN-BERTHA Location:[facility] Appointment Type:PC OV Appointment Date:06/10/2023 02:30:00 PM Scheduled Provider:KATHERINE BRAND APRN-BERTHA Location:[facility] Appointment Type:PC OV Future Scheduled Tests Laboratory* Protein Electrophoresis Urine 04/15/23 [facility] Evaluation + Plan note Future Appointments Appointment Date:10/23/2023 02:00:00 PM Scheduled Provider:KATHERINE BRAND APRN-VEGETABLE LOADER MACHINE OPERATOR Location:[facility] Appointment Type:PC OV Future Scheduled Tests Laboratory* Ferritin 10/12/23 * Iron Level 10/12/23 * Protein Electrophoresis Urine 04/15/23 * Vitamin B12 Level 10/12/23 * Complete Blood Count 10/12/23 * Lipid Profile 10/12/23 * Complete Metabolic Panel 10/12/23 [facility] Evaluation + Plan note Future Appointments Appointment Date:10/21/2023 03:00:00 PM Scheduled Provider:KATHERINE BRAND APRN-BERTHA Location[facility] Appointment Type:PC OV Future Scheduled Tests Laboratory* Ferritin 10/12/23 * Iron Level 10/12/23 * Protein Electrophoresis Urine 04/15/23 * Vitamin B12 Level 10/12/23 * Complete Blood Count 10/12/23 * Lipid Profile 10/12/23 * Complete Metabolic Panel 10/12/23 Radiology* MRI Spine Lumbar w/o Contrast 10/15/23 [facility] Evaluation + Plan note Future Appointments Appointment Date:03/09/2024 03:30:00 PM Scheduled Provider:KATHERINE BRAND APRN-VEGETABLE LOADER MACHINE OPERATOR Location:[facility] Appointment Type:PC OV Future Scheduled Tests Laboratory* Ferritin 10/12/23 * Iron Level 10/12/23 * Protein Electrophoresis Urine 04/15/23 * Vitamin B12 Level 10/12/23 * Complete Blood Count 10/12/23 * Lipid Profile 10/12/23 * Complete Metabolic Panel 10/12/23 [facility] Evaluation + Plan note Future Appointments Appointment Date:08/18/2024 03:00:00 PM Scheduled Provider:KATHERINE BRAND APRN-BERTHA Location:[facility] Appointment Type:PC OV [facility] evaluation + Plan note Future Appointments Appointment Date:07/08/2024 03:00:00 PM Scheduled Provider:KATHERINE BRAND APRN-BERTHA Location:[facility] Appointment Type:PC OV Appointment Date:08/18/2024 03:00:00 PM Scheduled Provider:KATHERINE BRAND APRN-VEGETABLE LOADER MACHINE OPERATOR Location:[facility] Appointment Type:PC OV Future Scheduled Tests Radiology* BD Bone Density DEXA Axial Skeleton Adult (21 yrs or older) 06/03/24 [facility] Evaluation + Plan note Future Appointments Appointment Date:07/08/2024 03:00:00 PM Scheduled Provider:KATHERINE BRAND APRN-BERTHA Location:[facility] ([place], [place]) Appointment Type:PC OV Appointment Date:08/18/2024 03:00:00 PM Scheduled Provider:KATHERINE BRAND APRN-BERTHA Location:[facility] Appointment Type:PC OV [facility] Evaluation + Plan note Future Appointments Appointment Date:08/05/2024 02:30:00 PM Scheduled Provider:KATHERINE BRAND APRN-BERTHA Location:[facility] ([place] [place]) Appointment Type:PC OV Future Scheduled Tests Laboratory* Vitamin D Level 07/25/24 [facility] Evaluation + Plan note Future Appointments Appointment Date:11/03/2024 03:00:00 PM Scheduled Provider:KATHERINE BRAND APRN-BERTHA Location:[facility] ([place], [place]) Appointment Type:PC OV Future Scheduled Tests Laboratory* Prostate Specific Antigen 11/03/24 * Complete Blood Count 11/03/24 * Lipid Profile 11/03/24 * Vitamin D Level 11/03/24 * Vitamin D Level 07/25/24 * Complete Metabolic Panel 11/03/24 [facility] Evaluation + Plan note Future Appointments Appointment Date:11/03/2024 03:00:00 PM Scheduled Provider:KATHERINE BRAND APRN-BERTHA Location:[facility] ([place], [place]) Appointment Type:PC OV Diagnostic Tests Pending * Testosterone,Free and Total 10/08/24 Future Scheduled Tests Laboratory* Vitamin D Level 11/03/24 * Vitamin D Level 07/25/24 [facility] Evaluation + Plan note Future Appointments Appointment Date:11/03/2024 03:00:00 PM Scheduled Provider:KATHERINE BRAND APRN-BERTHA Location:[facility] Appointment Type:PC OV Future Scheduled Tests Laboratory* Vitamin D Level 25 * Vitamin D Level 07/25/24 [facility] Evaluation + Plan note Future Appointments Appointment Date:03/23/2025 02:30:00 PM Scheduled Provider:KATHERINE BRAND Location:[facility] Appointment Type:PC OV Appointment Date:05/05/2025 03:00:00 PM Scheduled Provider:KATHERINE BRAND Location:[facility] Appointment Type:PC OV Future Scheduled Tests Laboratory* Vitamin D Level 25 * Vitamin D Level 07/25/24 [facility] Evaluation + Plan note Future Appointments Appointment Date:03/23/2025 02:30:00 PM Scheduled Provider:KATHERINE BRAND Location:[facility] Appointment Type:PC OV Appointment Date:05/05/2025 03:00:00 PM Scheduled Provider:KATHERINE BRAND Location:[facility] Appointment Type:PC OV Future Scheduled Tests Laboratory* Basic Metabolic Panel 03/24/25 * Vitamin D Level 25 * Vitamin D Level 07/25/24 [facility] Evaluation noteNo assessment information available [facility] Work Phone: Hospital Discharge instructions No data available for this section [facility] Progress note No data available for this section [facility] Chief Complaint and Reason for Visit Chief Complaint THORACIC 11 KYPHOPLA STY Summary Purpose Family History No Family History Records Found Advance Directives No Advanced Directives Records FoundNo Advanced Directives Records FoundNo Advanced Directives Records Found Additional Source Comments Care Team (unrecognized sect ion and content) Team Status: Active Member Role Status Dates Dr. Araceli Guerrero MD Family Provider Active Dr. Araceli Guerrero MD Primary Care Provider Active Team Status: Inactive Member Role Status Dates Dr. Araceli Guerrero MD Primary Care Provider Active Dr. Brody Pate , DO Attending Provider Active Goals (unrecognized section and content) Goals may be documented in a n alternate section (unrecognized sect ion and content) No Status Records FoundNo Status Records FoundNo Status Records Found INFORMATION SOURCE (unrecogn ized section and content) DATE CREATED AUTHOR 05/06/2024 [facility] ([place]) DATE CREATED AUTHOR AUTHOR'S ORGANIZ ATION 11/19/2024 [facility] DATE CREATED AUTHOR AUTHOR'S ORGANIZ ATION 03/13/2025 [facility] FOR RECORDS PERTAINING TO PATIENTS WHO ARE OR HAVE BEEN ENROLLED IN A CHEMICAL DEPENDENCY/SUBSTANCEABUSE PROGRAM, SOME INFORMATION MAY BE OMITTED. This clinical summary was aggregated from multiple sources. Caution should be exercised in using it in the provision of clinical care. This summary normalizes information from multiple sources, and as a consequence, information in this document may materially change the coding, format and clinical context of patient data. In addition, data may be omitted in some cases. CLINICAL DECISIONS SHOULD BE BASED ON THE PRIMARY CLINICAL RECORDS. [facility]. provides no warranty or guarantee of the accuracy or completeness of information in this document.
[2025-03-23 21:49] LABS: Magnesium 1.6 mg/dL (1.5-2.2)
--- NOTE | 2025-03-23 22:14 | ECHOD_ITS ---
Reason For Study Reason For Study: Edema Procedure This was a 2D Doppler, Color Flow transthoracic echocardiogram. Patient scanned supine due to back pain. Exam performed portable in patient room. Left Ventricle Normal LV size. The estimated ejection fraction is 55 %. No evidence for diastolic dysfunction. No regional wall motion abnormalities noted. Right Ventricle Normal RV size. Normal systolic function. Atria The left atrium is mildly enlarged. Normal right atrium. No doppler evidence for ASD. Mitral Valve There is no mitral valve stenosis. Trivial mitral valve insufficiency. Tricuspid Valve There is no tricuspid stenosis. Trivial tricuspid valve insufficiency. Pulmonary artery systolic pressure is 35 mmHg. Aortic Valve Trisinus/trileaflet aortic valve. There is no aortic stenosis. No aortic valve insufficiency. Pulmonic Valve There is no pulmonic valvular stenosis. No pulmonic valve insufficiency. Great Vessels Normal sized aortic root. Pericardium/Pleural No pericardial effusion. MMode/2D Measurements & Calculations LVIDd: 4.7 cm IVSd: 1.3 cm Ao root diam: 3.7 cm LVIDs: 3.0 cm LVPWd: 1.1 cm RVDd: 3.7 cm FS: 35.4 % LAV(MOD-bp): 65.6 ml LVAd ap4: 31.1 cm2 SV(MOD-sp4): 52.0 ml LAV(MOD-bp) Indexed: 34.0 ml/m2 LVLd ap4: 7.9 cm SI(MOD-sp4): 27.0 ml/m2 LAV(MOD-sp2): 69.4 ml EDV(MOD-sp4): 98.1 ml LAV(MOD-sp4): 61.0 ml EDV(sp4-el): 103.4 ml LVAs ap4: 18.0 cm2 LVLs ap4: 6.2 cm ESV(MOD-sp4): 46.1 ml ESV(sp4-el): 44.3 ml EF(MOD-sp4): 53.0 % EF(sp4-el): 57.2 % SV(sp4-el): 59.1 ml LA A4 area: 21.9 cm2 LA dimension(2D): 4.3 cm RA A4 area: 17.7 cm2 TAPSE: 2.0 cm Time Measurements MV dec time: 0.17 sec Doppler Measurements & Calculations MV E max lino: 76.2 cm/sec Lat Peak E' Lino: 11.1 cm/sec Med Peak E' Lino: 10.6 cm/sec MV A max lino: 89.9 cm/sec E/E' lat: 6.9 E/E' med: 7.2 MV E/A: 0.85 MV V2 max: 112.6 cm/sec MV P1/2t max lino: 96.2 cm/sec Ao V2 max: 154.5 cm/sec MV max P.1 mmHg MV P1/2t: 66.5 msec Ao max P.6 mmHg MV V2 mean: 68.5 cm/sec Ao V2 mean: 99.7 cm/sec MV mean P.2 mmHg MV dec slope: 423.5 cm/sec2 Ao mean P.6 mmHg MV V2 VTI: 23.6 cm MVA(P1/2t): 3.3 cm2 Ao V2 VTI: 32.3 cm AV (velocity ratio): 0.73 LV V1 max: 114.5 cm/sec TR max lino: 305.9 cm/sec LV V1 max P.3 mmHg TR max P.4 mmHg LV V1 mean P.8 mmHg LV V1 mean: 78.7 cm/sec LV V1 VTI: 23.7 cm ECHO/Echo Complete Interpretation Summary The estimated ejection fraction is 55 %. No evidence for diastolic dysfunction. The left atrium is mildly enlarged. Trivial mitral valve insufficiency. Ordering Physician: Merry Pham Performed By: Tommie Gurrola RCS
[2025-03-23 22:31] LABS: Troponin T High Sens 4 HR 28 ng/L (<=22)
[2025-03-23] MEDS: 0.9% Saline Lock 10 ML Syringe IV (23:14)
[2025-03-24] MEDS: MELATONIN 3 MG TABLET PO (01:31)
[2025-03-24 01:35] VITALS: BP 128/67; PULSE 98; RESP 18; TEMP 36.7; O2SAT 92
[2025-03-24] MEDS: hydrOXYzine PAM 25 MG Capsule PO ×5 (02:22→21:51)
[2025-03-24 04:33] VITALS: BMI 26.6
[2025-03-24 05:45] VITALS: BP 136/71; PULSE 90; RESP 16; TEMP 36.7; O2SAT 92
[2025-03-24] MEDS: 0.9% Saline Lock 10 ML Syringe IV (05:50)
[2025-03-24 06:13] LABS: Hematocrit 34.2 % (40-54); Hemoglobin 11.6 g/dL (13.0-16.5); Immature Granulocytes Count 0.030 X10^3/uL (0.0-0.0); Mean Corp Hgb Conc 33.9 g/dL (32-36); Mean Corpuscular Volume 94.5 fL (80-94); Mean Platelet Vol. 9.0 fl (6.2-12.0); NRBC Flagged by Analyzer 0 % (0-5); Platelet Count 219 K/mm3 (150-450); RBC Distribution Width CV 13.6 % (11.6-14.6); RBC Distribution Width SD 47.5 fl (35.1-43.9); Red Blood Count 3.62 M/mm3 (4.6-6.2); White Blood Count 7.2 K/mm3 (4.4-11.0)
[2025-03-24 07:28] LABS: AST(SGOT) 14 U/L (<=37); Alanine Aminotransfer ALT/SGPT 7 U/L (<=46); Albumin, Serum 3.3 g/dL (3.4-4.8); Alkaline Phosphatase 102 U/L (40-129); Anion Gap 9 (5-15); BUN 16 mg/dL (4-19); BUN/Creat Ratio 18.8 RATIO (10-20); Calcium,Total 8.7 mg/dL (7.6-11.0); Carbon Dioxide 30.9 mmol/L (21.0-32.0); Chloride 105 mmol/L (98-108); Cholesterol 106 mg/dL (<=200); Estimated Creatinine Clearance 65.88 ml/min (50-250); Ferritin 680 ng/mL (37-417); Globulin 2.2 g/dL (2.2-4.2); Glucose 96 mg/dL (70-99); Low Density Lipoprotein Calc. 62 mg/dL; Potassium 3.7 mmol/L (3.3-5.1); Triglycerides 45 mg/dL; Very Low Density Lipoprotein 9 mg/dL (5-40); Vitamin B12 1246 pg/mL (180-914); cholesterol:hdl ratio screen 3.02
[2025-03-24 07:50] LABS: Iron 49 ug/dL (65-175); Iron Binding Capacity,Unsat 119 ug/dL (228-428)
[2025-03-24 07:56] LABS: Iron Binding Capacity,Total 168 ug/dL (250-450)
--- NOTE | 2025-03-24 09:00 | MRI_ITS ---
PROCEDURE: SPINE THORACIC (ROUTINE) 03/24/2025 REASON FOR EXAM: THORACIC SPINE ACUTE FX TECHNIQUE: SPINE THORACIC (ROUTINE) Multiplanar and multisequence images were obtained. CONTRAST: None COMPARISON: March 23, 2025 FINDINGS: Vertebrae: Grade 3 biconcave compression fracture of T9 vertebral body with some fluid signal in the central portion of the body. Review of prior CT also showed vacuum disc on either side of the vertebral body and in the vertebral body itself. This is likely chronic. Retropulsion of the posterior aspect of the mid body 5 mm. Grade 3 T11 biconcave and anterior wedge compression fracture. Some low signal in the vertebral body from augmentation is seen. Very mild T2 prolongation on the inversion recovery images at the mid and anterior aspect of the vertebral body suggesting chronic fracture. There is some retropulsion of the posterior inferior margin of the proximally 3.8 mm. Grade 3 biconcave compression fracture of L1 vertebral body. Moderate bone marrow edema is seen involving the vertebral body. Retropulsion of the posterior superior margin of the vertebral body of the proximally 7 mm. Additionally, there is protrusion of the anterior aspect of the vertebral body a proximally 8 mm. Alignment: Straightening of the normal thoracic kyphosis. Acute kyphosis lower thoracic spine related to fractures. Spinal Cord: There is effacement of the anterior thecal sac from the fracture T9 vertebral body in the retropulsed portion of the body. This contacts the cord but is not associated with any abnormal cord signal. Exit foramina at T9/10 are severely narrowed. Retropulsion of T11 creates an extradural defect that approaches the cord but does not deform the cord. No abnormal cord signal seen there. images: MRI/Spine Thoracic (Routine) IMPRESSION: 1. Straightening of the upper thoracic spine. Acute kyphosis lower thoracic s pine related to multiple fractures. 2. There is contact of the spinal cord by the T9 vertebral body with no abnorm al signal seen. 3. Severe exit foraminal narrowing T9/10. Correlate with radiculopathy at T9. Reading Location: [id number]
--- NOTE | 2025-03-24 09:00 | MRI_ITS ---
PROCEDURE: SPINE LUMBAR (ROUTINE) 03/24/2025 REASON FOR EXAM: L1 VERTEBRAL BODY FX, SPINAL CANAL NARROWING TECHNIQUE: SPINE LUMBAR (ROUTINE) COMPARISON: November 09, 2024 FINDINGS: Vertebrae: Grade 3 T11 biconcave and anterior wedge compression fracture. Some low signal in the vertebral body from augmentation is seen. Very mild T2 prolongation on the inversion recovery images at the mid and anterior aspect of the vertebral body suggesting chronic fracture. There is some retropulsion of the posterior inferior margin of the proximally 3.8 mm. Grade 3 biconcave compression fracture of L1 vertebral body. Moderate bone marrow edema is seen involving the vertebral body. Retropulsion of the posterior superior margin of the vertebral body of the proximally 7 mm. Additionally, there is protrusion of the anterior aspect of the vertebral body a proximally 8 mm. No abnormal signal in the other vertebral bodies. No fluid signal in the intervertebral discs. No paraspinal soft tissue mass is seen. Alignment: Acute kyphosis at T12. Lumbar lordosis is otherwise preserved. Conus Medullaris: Terminates at L1/2. There is contact of the distal spinal cord by the retropulsed L1 vertebral body. This is not imaged in the axial plane. No abnormal signal in the sagittal plane. T12-L1: In the sagittal plane, there is no significant disc protrusion. Exit foramina are narrowed but there is fat around the exiting nerve roots. L1-2: Minimal, diffuse disc bulge slightly greater at the level of the foramen and far left lateral. Moderate thickening of the ligamentum flavum. No central stenosis. However, there is exit foraminal narrowing on the right greater than the left. Correlate with L1 radiculopathy on the right. L2-3: Mild, diffuse disc bulge. Pium-to-qmfxkope thickening of ligamentum flavum. Minimal facet hypertrophy. No central stenosis or exit foraminal narrowing. L3-4: Mild, diffuse disc bulge. Moderate thickening of ligamentum flavum. Minimal bilateral facet hypertrophy. Borderline narrowing of the exit foramina. Correlate with L3 radiculopathy. L4-5: Moderate, diffuse disc bulge. Severe thickening of ligamentum flavum. Lmop-xz-iyronmaw facet hypertrophy. Central stenosis to 9 mm AP. Wlkdn-tzwomqf-ajnu-left severe exit foraminal narrowing. Correlate with L4 radiculopathy. L5-S1: Mild, diffuse disc bulge. Moderate facet hypertrophy. Mild thickening of ligamentum flavum. No central stenosis. Exit foraminal narrowing primarily from facet disease. Correlate with L5 radiculopathy. Sacrum: Unremarkable MRI/Spine Lumbar (Routine) IMPRESSION: 1. Fractures of T11 and L1 vertebral bodies. Very mild bone marrow edema invo lving the T11 vertebral body along with evidence of prior vertebroplasty suggesting it is chronic. Moderate bone marrow edema i nvolving the L1 vertebral body. This is likely subacute to chronic. Retropulsion of T11 of approximately 4 mm, and retropulsi on of L1 of approximately 7 mm. This contacts the distal cord. No abnormal cord signal seen. 2. Multilevel degenerative changes throughout the remainder of the lumbar spin e. Central stenosis at L4/5. Exit foraminal narrowing at L1/2 on the right, L3/4, L4/5 and L5/S1 as above. Reading Location: [id number]
[2025-03-24] MEDS: Lidocaine 5% Patch 2 PATCH TOPICAL (10:27)
[2025-03-24 10:59] VITALS: O2SAT 95
[2025-03-24 11:45] VITALS: BP 152/74; PULSE 84; RESP 16; TEMP 36.6; O2SAT 95
[2025-03-24 12:02] LABS: FOLATES,SERUM (FOLIC ACID) 8.06 ng/mL (4.60-34.80)
--- NOTE | 2025-03-24 13:04 | CASEMGMT ---
SAMANTHA SALAZAR Assessment Face to Face with patient for initial transition planning/care coordination assessment. SAMANTHA SALAZAR introduced self and role at [facility], pt voices understanding. Pt is A&Ox4 and is resting comfortably in bed and is calm. Care providers, pharmacy, and demographics verified. Admitting dx: Acute on chronic back pain, Worsening BL LE Edema LACE Strata: 1 PCP: Katherine Brand Specialists: Hx with Dr Topete ([facility]), Roscoe (PM), Dr Greenwood (Endocrinology) [facility] Insurance: [employer] A[employer], [employer] Prescription Benefit: Yes LNOK: Leida (W) Living Arrangements: Pt lives with his in a single story home with 2 steps to enter ADLs/IADLs: Pt reports that he is indep at baseline. However, pt states that he has recently been requiring assistance through his Transportation: Self, DME: [facility]. Shower chair. Grab bars. BP Machine. Pulse ox. Noted that the pt has a hx of recent falls. Medical alert system resources offered. However, pt declined these resources and states that he will set this up at a later time HHC/SNF: Hx @ for OP PT. Hx with HHC in November but is unsure of the agency. Hx @ [facility]. Pt?s goal: Return to PLOF Plan: TBD. Anticipate SNF vs Home with HHC. Current 6-Click score is 16. PT/OT ordered and pending. Spine MRIs pending. Ortho consult. Per nursing, pt has been a x2 assist. At this time, the pt states that he would be open to SNF @ [place] if warranted. However, if pt is safe to return home pt would be agreeable for skilled HHC. Pt denies any further questions or concerns at this time. Report given to PRODUCTION HARDENER CM. Marck Walton RN, CM
--- NOTE | 2025-03-24 14:57 | PCM.PROGNOTE ---
Subjective Subjective Patient seen and examined. He complains of the lower extremity swelling. He denied any fever or chills, shortness of breath, palpitations, dizziness, nausea or vomiting. I saw him with his nurse present bedside. Review of systems otherwise negative. Objective Data Objective Data Vital Signs: Vital Signs Temp Pulse Resp BP Pulse Ox O2 Del Method 97.9 F 84 16 152/74 H 95 Room Air 03/24/25 11:45 03/24/25 11:45 03/24/25 11:45 03/24/25 11:45 03/24/25 11:45 03/24/25 11:45 Oxygen Delivery Method Room Air Weight: 170 lb 6.995 oz Body Mass Index (BMI) 26.6 Intake & Output: Intake and Output for Last 24 Hours 03/22/25 03/23/25 03/24/25 23:59 23:59 23:59 Intake Total 240 / 240 240 / 240 Output Total 700 / 700 1050 / 1050 Balance -460 / -460 -810 / -810 Lab / Micro Data 03/24/25 05:40 03/24/25 05:40 Labs: Laboratory Results - last 24 hr 03/23/25 17:41: WBC 8.0, RBC 3.92 L, Hgb 12.6 L, Hct 37.2 L, MCV 94.9 H, MCH 32.1 H, MCHC 33.9, RDW Std Deviation 47.0 H, RDW Coeff of Stefanie 13.5, Plt Count 232, MPV 8.9, Immature Gran % (Auto) 0.500, Neut % (Auto) 75.3 H, Lymph % (Auto) 10.3 L, Boone % (Auto) 10.1 H, Eos % (Auto) 3.3, Baso % (Auto) 0.5, Absolute Neuts (auto) 6.0, Absolute Lymphs (auto) 0.82 L, Nucleated RBC % 0, Sodium 144, Potassium 3.8, Chloride 105, Carbon Dioxide 28.5, Anion Gap 10, BUN 15, Creatinine 0.84, Estim Creat Clear Calc 71.31, Est GFR (MDRD) Non-Af 89, BUN/Creatinine Ratio 17.4, Glucose 95, Calcium 9.2, Total Bilirubin 0.29, AST 16, ALT 9, Alkaline Phosphatase 112, Troponin T High Sens 33 H, NT pro BNP II 417, Total Protein 6.2, Albumin 3.8, Globulin 2.4, Albumin/Globulin Ratio 1.5, Lipase 21 03/23/25 19:41: Magnesium 1.6, Troponin T Hi Sens 2 Hr 27 H 03/23/25 21:52: Troponin T Hi Sens 4Hr 28 H 03/24/25 05:40: WBC 7.2, RBC 3.62 L, Hgb 11.6 L, Hct 34.2 L, MCV 94.5 H, MCH 32.0, MCHC 33.9, RDW Std Deviation 47.5 H, RDW Coeff of Stefanie 13.6, Plt Count 219, MPV 9.0, Immature Gran % (Auto) 0.400, Neut % (Auto) 61.6, Lymph % (Auto) 19.2, Boone % (Auto) 13.4 H, Eos % (Auto) 5.0, Baso % (Auto) 0.4, Absolute Neuts (auto) 4.4, Absolute Lymphs (auto) 1.38, Nucleated RBC % 0, Sodium 145, Potassium 3.7, Chloride 105, Carbon Dioxide 30.9, Anion Gap 9, BUN 16, Creatinine 0.85, Estim Creat Clear Calc 65.88, Est GFR (MDRD) Non-Af 88, BUN/Creatinine Ratio 18.8, Glucose 96, Calcium 8.7, Iron 49 L, TIBC 168 L, Iron Saturation 29.2, Unsaturated IBC 119 L, Ferritin 680 H, Total Bilirubin 0.36, AST 14, ALT 7, Alkaline Phosphatase 102, Total Protein 5.6 L, Albumin 3.3 L, Globulin 2.2, Albumin/Globulin Ratio 1.5, Triglycerides 45, Cholesterol 106, LDL Cholesterol, Calc 62, VLDL Cholesterol 9, HDL Cholesterol 35 L, Cholesterol/HDL Ratio 3.02, Vitamin B12 1246 H, TSH 0.640 03/24/25 10:38: Serum Folate 8.06 Radiography Diagnostic Testing: Radiology Impression Venous Duplex 03/23/25 17:33 IMPRESSION: No DVT. Reading Location: [facility] Brain CT 03/23/25 18:12 IMPRESSION: No acute intracranial abnormality. Reading Location: [facility] Lumbar Spine CT 03/23/25 18:12 IMPRESSION: 1. Severe compression deformity of L1 vertebral body, likely chronic. However, this does results in moderate spinal canal stenosis. 2. If symptoms persist, further evaluation with MRI is recommended. Reading Location: [facility] Thoracic Spine CT 03/23/25 18:12 IMPRESSION: 1. No acute fracture. 2. Moderate to severe compression deformity of T9 vertebral body with lucency along the anterior aspect, acute fracture can not be excluded. Reading Location: [facility] Chest X-Ray 03/23/25 18:20 IMPRESSION: No Acute Findings. Reading Location: [facility] Echocardiogram 03/23/25 22:14 Interpretation Summary The estimated ejection fraction is 55 %. No evidence for diastolic dysfunction. The left atrium is mildly enlarged. Trivial mitral valve insufficiency. Ordering Physician: Merry Pham Performed By: Tommie Gurrola RCS Physical Exam Const alert, oriented x3 and no apparent distress Constitutional Narrative: frail General Appearance: cooperative HEENT normocephalic and head/scalp atraumatic Mouth: dry mucous membranes Eyes PERRL Neck no lymphadenopathy and supple Lymph Lymphatic: no lymphadenopathy noted and no lymphedema noted Resp Resp Narrative: mildly diminished breath sounds bibasally, Cardio regular rate, regular rhythm, S1 normal heart sound, S2 normal heart sound and no murmurs GI normal to inspection, nondistended, normoactive bowel sounds and soft to palpation Extremity Extremity Narrative: both LEs wrapped in IAN bandage. Skin Skin Narrative: as under extremities. Neuro CN's II-XII intact bilaterally Motor Exam: general weakness Psych thought process normal and cooperative Appearance: appropriate Assessment & Plan Assessment/Plan (1) Acute on chronic back pain: PLAN: Plan #Debility and weakness due to mechanical falls with resultant compression fractures Patient complaining of acute on chronic back pain. Imaging done showed severe compression fracture of L1 with moderate spinal canal stenosis in addition to moderate to severe compression deformity of T9 vertebral body. MRI of the lumbar spine and thoracic spine ordered. Orthospine consulted. On IV Toradol as well as gabapentin and tenacity and then as needed. Lidocaine patch pain meds as needed. B2 tomorrow. Fall precautions. #Bilateral lower extremity swelling Etiology is unclear. 2D echo done today showed EF of 55% with no diastolic dysfunction. His got on the phone and give more of his history. She said he had been having this lower extremity edema for some weeks now and was seen at [facility] where he was told that he may need Lasix. She states that he had some cardiac testing done though she does not know the exact ones he had done and these were all negative. He was on Lasix for some time but it did not really help. Patient currently on IV Lasix. He is diuresing very well. Bilateral lower extremities wrapped in Ian bandage but swelling does seem to have improved a bit. Hypertension: On Coreg and losartan as well as amlodipine. 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
[2025-03-24 17:45] VITALS: BP 135/89; PULSE 64; RESP 16; TEMP 36.5; O2SAT 93
[2025-03-24 21:47] VITALS: BP 117/64; PULSE 91; RESP 18; TEMP 36.5; O2SAT 92
[2025-03-25] VITALS (7 sets, daily range): BP systolic 101–144; BP diastolic 64–73; PULSE 88–103; RESP 18–20; TEMP 36.6–36.7; O2SAT 94–98; BMI 25.8
[2025-03-25] MEDS: 0.9% Saline Lock 10 ML Syringe IV (06:08)
[2025-03-25 06:48] LABS: Hematocrit 34.4 % (40-54); Hemoglobin 11.5 g/dL (13.0-16.5); Immature Granulocytes Count 0.020 X10^3/uL (0.0-0.0); Mean Corp Hgb Conc 33.4 g/dL (32-36); Mean Corpuscular Volume 95.3 fL (80-94); Mean Platelet Vol. 9.2 fl (6.2-12.0); NRBC Flagged by Analyzer 0 % (0-5); Platelet Count 208 K/mm3 (150-450); RBC Distribution Width CV 13.4 % (11.6-14.6); RBC Distribution Width SD 47.3 fl (35.1-43.9); Red Blood Count 3.61 M/mm3 (4.6-6.2); White Blood Count 7.2 K/mm3 (4.4-11.0)
[2025-03-25 08:36] LABS: Anion Gap 10 (5-15); BUN 17 mg/dL (4-19); BUN/Creat Ratio 22.6 RATIO (10-20); Calcium,Total 8.1 mg/dL (7.6-11.0); Carbon Dioxide 30.4 mmol/L (21.0-32.0); Chloride 104 mmol/L (98-108); Estimated Creatinine Clearance 70.00 ml/min (50-250); Glucose 94 mg/dL (70-99); Potassium 3.1 mmol/L (3.3-5.1)
[2025-03-25] MEDS: hydrOXYzine PAM 25 MG Capsule PO ×2 (09:49→15:06)
--- NOTE | 2025-03-25 10:10 | PN_ITS ---
Subjective Subjective Patient seen and examined. He said he felt short of breath during the night and felt like he was dying. He denies any chest pain, palpitations, nausea, vomitng or any other symptoms. He is on 2L of oxygen. He is cumulative negative balance by 1.79L. K is 3.1 today. Objective Data Objective Data Vital Signs: Vital Signs Temp Pulse Resp BP Pulse Ox O2 Del Method O2 Flow Rate 97.9 F 93 18 126/67 H 94 Nasal Cannula 2 03/25/25 09:41 03/25/25 09:41 03/25/25 09:41 03/25/25 09:41 03/25/25 09:41 03/25/25 09:41 03/25/25 09:41 Oxygen Flow Rate (L/min) 2 Oxygen Delivery Method Nasal Cannula Weight: 165 lb 2.02 oz Body Mass Index (BMI) 25.8 Intake & Output: Intake and Output for Last 24 Hours 03/23/25 03/24/25 03/25/25 23:59 23:59 23:59 Intake Total 240 / 240 720 / 720 Output Total 700 / 700 1850 / 1850 200 / 200 Balance -460 / -460 -1130 / -1130 -200 / -200 Lab / Micro Data 03/25/25 05:35 03/25/25 05:35 Labs: Laboratory Results - last 24 hr 03/24/25 10:38: Serum Folate 8.06 03/25/25 05:35: WBC 7.2, RBC 3.61 L, Hgb 11.5 L, Hct 34.4 L, MCV 95.3 H, MCH 31.9, MCHC 33.4, RDW Std Deviation 47.3 H, RDW Coeff of Stefanie 13.4, Plt Count 208, MPV 9.2, Immature Gran % (Auto) 0.300, Neut % (Auto) 60.9, Lymph % (Auto) 18.3 L , Hardeman % (Auto) 13.5 H, Eos % (Auto) 6.6 H, Baso % (Auto) 0.4, Absolute Neuts (auto) 4.4, Absolute Lymphs (auto) 1.31, Nucleated RBC % 0, Sodium 145, P otassium 3.1 L, Chloride 104, Carbon Dioxide 30.4, Anion Gap 10, BUN 17, Creatinine 0.75, Estim Creat Clear Calc 70.00, Est GFR (MDRD) Non-Af 92, B UN/Creatinine Ratio 22.6 H, Glucose 94, Calcium 8.1 Radiography Diagnostic Testing: Radiology Impression Echocardiogram 03/23/25 22:14 Interpretation Summary The estimated ejection fraction is 55 %. No evidence for diastolic dysfunction. The left atrium is mildly enlarged. Trivial mitral valve insufficiency. Ordering Physician: Merry Pham Performed By: Tommie Gurrola RCS Lumbar Spine MRI 03/24/25 09:00 IMPRESSION: 1. Fractures of T11 and L1 vertebral bodies. Very mild bone marrow edema involving the T11 vertebral body along with evidence of prior vertebroplasty suggesting it is chronic. Moderate bone marrow edema involving the L1 vertebral body. This is likely subacute to chronic. Retropulsion of T11 of approximately 4 mm, and retropulsion of L1 of approximately 7 mm. This contacts the distal cord. No abnormal cord signal seen. 2. Multilevel degenerative changes throughout the remainder of the lumbar spine. Central stenosis at L4/5. Exit foraminal narrowing at L1/2 on the right, L3/4, L4/5 and L5/S1 as above. Reading Location: [facility] Thoracic Spine MRI 03/24/25 09:00 IMPRESSION: 1. Straightening of the upper thoracic spine. Acute kyphosis lower thoracic spine related to multiple fractures. 2. There is contact of the spinal cord by the T9 vertebral body with no abnormal signal seen. 3. Severe exit foraminal narrowing T9/10. Correlate with radiculopathy at T9. Reading Location: [facility] Physical Exam Const alert, oriented x3 and no apparent distress Constitutional Narrative: frail General Appearance: cooperative HEENT normocephalic and head/scalp atraumatic Eyes PERRL Neck no lymphadenopathy and supple Lymph Lymphatic: no lymphadenopathy noted and no lymphedema noted Resp Resp Narrative: mildly diminished breath sounds bibasally, Cardio regular rate, regular rhythm, S1 normal heart sound, S2 normal heart sound and no murmurs GI normal to inspection, nondistended, normoactive bowel sounds and soft to palpation Extremity Extremity Narrative: both LEs wrapped in IAN bandage. Skin Skin Narrative: as under extremities. Neuro CN's II-XII intact bilaterally Motor Exam: general weakness Psych thought process normal and cooperative Appearance: appropriate Assessment & Plan Assessment/Plan (1) Acute on chronic back pain: PLAN: Plan #Debility and weakness due to mechanical falls with resultant compression fractures * Patient complaining of acute on chronic back pain. Imaging done showed severe compression fracture of L1 with moderate spinal canal stenosis in addition to moderate to severe compression deformity of T9 vertebral body. * Lumbar spine MRI showed fractures of T11 and L1 vertebral bodies which is chronic with moderate bone marrow edema and foraminal narrowing at L1 and L2 and L3-L4, L4-L5, L5-S1. * Thoracic spine MRI showed straightening of the upper thoracic spine with acute kyphosis of the lower thoracic spine related to multiple fractures and severe exit foraminal narrowing at T9-10. * PT OT on board. Fall precautions. On lidocaine patch as needed as well as IV Toradol and gabapentin. * PT/OT on board. Fall precautions. * orthospine consulted. #Bilateral lower extremity swelling * Etiology is unclear. 2D echo done today showed EF of 55% with no diastolic dysfunction. His got on the phone and give more of his history. She said he had been having this lower extremity edema for some weeks now and was seen at [facility] where he was told that he may need Lasix. She states that he had some cardiac testing done though she does not know the exact ones he had done and these were all negative. He was on Lasix for some time but it did not really help. * Patient currently on IV Lasix. He is diuresing very well. Bilateral lower extremities wrapped in Ian bandage but swelling does seem to have improved a bit. #Hypoxia: * Patient requiring 2 L of oxygen today. His lungs have bilateral crackles. He is being diuresed so is not likely fluid overload. * I suspect patient likely has atelectasis and chest x-ray on admission 2 days ago did show linear basilar opacities on the left which could to represent atelectasis versus scar * Encourage incentive spirometry use. * Breathing treatments bronchodilators. Titrate oxygen to maintain saturation above 90%. * Hypertension: On Coreg and losartan as well as amlodipine. 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
--- NOTE | 2025-03-25 12:29 | CASEMGMT ---
Addendum entered by Rom Schaefer 03/25/25 13:28: SAMANTHA SALAZAR spoke w/pt and again. They choose [facility] as 1st choice. did not want to give additional choices until hearing back from [facility]. Addendum entered by Rom Schaefer 03/25/25 13:02: Reviewed SNF list w/pt and also w/ on the phone. inquired about [facility]. This was not on original SNF list. A new list of SNF providers including quality and resource use data and consistent with the patient?s preferred geographic region, medical needs, and insurance network were provided from the [employer] Guide that included [facility], which has a 2-star rating. New list e-mailed to , Leida, @ [email or web address]. Original Note: SAMANTHA SALAZAR NOTE: Therapy notes reviewed. Additional therapy recommended. SAMANTHA SALAZAR to room. Pt sitting up in chair. Introduced self and role. Pt states he thinks it would be a good idea to go somewhere to get therapy before returning home, stating he has fallen @ home & wants to get stronger before returning home. A list of SNF providers including quality and resource use data and consistent with the patient?s preferred geographic region, medical needs, and insurance network were provided from the [employer] Guide. Chao KNIGHT RN, CM
--- NOTE | 2025-03-25 13:07 | CONS.ORTHO ---
HPI Consult Data Date of Consult: 03/25/25 HPI Narrative HPI Narrative: NANCY SY, is a 80 M who presents with back pain. Patient was admitted on Friday night because of hypoxia and pedal edema. Patient is a poor historian. Most of the history was taken through patient's on speaker phone. Patient apparently had multiple falls over the last 2 to 3 years. He initially underwent kyphoplasty by Dr. Topete or Dr. Torres, patient is unsure. He had good improvement of his pain from this. He has had multiple falls since this kyphoplasty procedure which was based on imaging likely at T11 level. He however had more recent falls about a month ago which caused him to have worsening back pain. He denies any mid back or upper back pain at this time but says that she has significant pain throughout the back most severe in the beltline region in the lower lumbar region. He is on nasal oxygen. He has been evaluated for cardiac and pulmonary reasons for hypoxia and pedal edema. He says that the pain has been constant since the fall about a month ago. He says that he has worked with physical therapy here in the hospital and has been able to walk with the help of a walker. Past medical history: Chronic macrocytic anemia, CKD stage II per GFR trending, OA, Allergic rhinitis, Former tobacco use [facility] Medical History CKD (chronic kidney disease), stage II Former tobacco use BPH (benign prostatic hyperplasia) HLD (hyperlipidemia) Chronic anemia Pancreatitis Osteoporosis Osteopenia Kidney stones Arthritis Allergies Hemorrhoids Hypertension Home Medications ?Medication ?Instructions ?Recorded ?Last Taken ?Type carvedilol 3.125 mg tablet 3.125 mg PO BID 07/09/23 03/22/25 History amlodipine 10 mg tablet 10 mg PO QDAY 07/26/24 03/22/25 History buspirone 15 mg tablet 15 mg PO BID 07/26/24 03/22/25 History calcium carbonate 1,000 mg PO QDAY 07/26/24 03/22/25 History cyanocobalamin (vitamin B-12) 1,000 mcg PO QDAY 07/26/24 03/22/25 History 1,000 mcg capsule losartan 25 mg tablet 100 mg PO DAILY 07/26/24 03/22/25 History melatonin 5 mg capsule 5 mg PO QHS PRN Sleep 07/26/24 03/22/25 History paroxetine HCl 40 mg tablet 40 mg PO QDAY 07/26/24 03/22/25 History tamsulosin 0.4 mg capsule (Flomax) 0.4 mg PO QDAY 07/26/24 03/22/25 History cholecalciferol (vitamin D3) 1,250 1,250 mcg PO QWEEK 09/23/24 Unknown History mcg (50,000 unit) capsule acetaminophen 325 mg tablet 650 mg PO Q6H PRN pain 03/23/25 03/23/25 History (Tylenol) hydroxyzine HCl 25 mg tablet 25 mg PO 4X/DAY Anxiety 03/24/25 Unknown History Allergy/AdvReac Type Severity Reaction Status Date / Time No Known Allergies Allergy Verified 03/23/25 16:56 Family History Father Alcoholism Brother Depression Suicide attempt Grandmother Parkinson disease Sister Osteoporosis Mother Non-alcoholic cirrhosis Surgical History S/P tonsillectomy S/P appendectomy Hx of cholecystectomy Social History household members: spouse Smoking Status: Former smoker how long ago did patient quit smoking: Quit pipe smoking 15 yrs prior, smoked since 14 ~20 refill/day. alcohol intake: never substance use type: does not use Vital Signs Vital Signs Vital Signs: 03/24/25 17:45 03/24/25 21:47 03/24/25 22:00 Temperature 97.7 F L 97.7 F L Temperature Source Oral Temporal Pulse Rate 64 91 Respiratory Rate 16 18 Respiratory Effort Normal Non-Labored Respiratory Depth Normal Respiratory Pattern Normal Blood Pressure 135/89 H 117/64 Blood Pressure Mean 104 81 Blood Pressure Source Monitor Monitor Blood Pressure Position Semi-Fowlers Semi-Fowlers Blood Pressure Location Left Arm Right Arm Pulse Ox 93 92 Oxygen Delivery Method Room Air Room Air Room Air Oxygen Flow Rate (L/min) 03/25/25 03:52 03/25/25 04:27 03/25/25 07:44 Temperature 97.9 F Temperature Source Temporal Pulse Rate 90 Respiratory Rate 18 Respiratory Effort Normal Non-Labored Respiratory Depth Normal Respiratory Pattern Normal Blood Pressure 130/71 H Blood Pressure Mean 90 Blood Pressure Source Monitor Blood Pressure Position Semi-Fowlers Blood Pressure Location Right Arm Pulse Ox 95 Oxygen Delivery Method Nasal Cannula Nasal Cannula Oxygen Flow Rate (L/min) 2 2 03/25/25 09:41 03/25/25 10:00 03/25/25 11:24 Temperature 97.9 F Temperature Source Temporal Pulse Rate 93 Respiratory Rate 18 Respiratory Effort Normal Non-Labored Respiratory Depth Normal Respiratory Pattern Normal Blood Pressure 126/67 H Blood Pressure Mean 86 Blood Pressure Source Blood Pressure Position Blood Pressure Location Pulse Ox 94 97 Oxygen Delivery Method Nasal Cannula Nasal Cannula Oxygen Flow Rate (L/min) 2 2 2 03/25/25 11:24 Temperature Temperature Source Pulse Rate Respiratory Rate Respiratory Effort Respiratory Depth Respiratory Pattern Blood Pressure Blood Pressure Mean Blood Pressure Source Blood Pressure Position Blood Pressure Location Pulse Ox Oxygen Delivery Method Oxygen Flow Rate (L/min) 2 Weight Weight: 165 lb 2.02 oz Body Mass Index (BMI) 25.8 Physical Exam Narrative Examination the back shows midline tenderness throughout the thoracic and lumbar spine. Paraspinal tenderness to lower lumbar region. Neurologic evaluation of lower extremity shows 4 x 5 power in all muscle groups. There is obvious kyphosis in the lower thoracic region. Patient is able to sit up and lean forward without significant worsening of pain. Lab / Micro Data 03/25/25 05:35 03/25/25 05:35 Labs: Laboratory Results - last 24 hr 03/25/25 05:35: WBC 7.2, RBC 3.61 L, Hgb 11.5 L, Hct 34.4 L, MCV 95.3 H, MCH 31.9, MCHC 33.4, RDW Std Deviation 47.3 H, RDW Coeff of Stefanie 13.4, Plt Count 208, MPV 9.2, Immature Gran % (Auto) 0.300, Neut % (Auto) 60.9, Lymph % (Auto) 18.3 L, [place] % (Auto) 13.5 H, Eos % (Auto) 6.6 H, Baso % (Auto) 0.4, Absolute Neuts (auto) 4.4, Absolute Lymphs (auto) 1.31, Nucleated RBC % 0, Sodium 145, Potassium 3.1 L, Chloride 104, Carbon Dioxide 30.4, Anion Gap 10, BUN 17, Creatinine 0.75, Estim Creat Clear Calc 70.00, Est GFR (MDRD) Non-Af 92, BUN/Creatinine Ratio 22.6 H, Glucose 94, Calcium 8.1 Imaging Radiology Impression Lumbar Spine MRI 03/24/25 09:00 IMPRESSION: 1. Fractures of T11 and L1 vertebral bodies. Very mild bone marrow edema involving the T11 vertebral body along with evidence of prior vertebroplasty suggesting it is chronic. Moderate bone marrow edema involving the L1 vertebral body. This is likely subacute to chronic. Retropulsion of T11 of approximately 4 mm, and retropulsion of L1 of approximately 7 mm. This contacts the distal cord. No abnormal cord signal seen. 2. Multilevel degenerative changes throughout the remainder of the lumbar spine. Central stenosis at L4/5. Exit foraminal narrowing at L1/2 on the right, L3/4, L4/5 and L5/S1 as above. Reading Location: [facility] Thoracic Spine MRI 03/24/25 09:00 IMPRESSION: 1. Straightening of the upper thoracic spine. Acute kyphosis lower thoracic spine related to multiple fractures. 2. There is contact of the spinal cord by the T9 vertebral body with no abnormal signal seen. 3. Severe exit foraminal narrowing T9/10. Correlate with radiculopathy at T9. Reading Location: [facility] Assessment & Plan Assessment/Plan (1) Thoracic compression fracture: QUALIFIERS: Encounter type: initial encounter Thoracic vertebra fracture level: T9 Qualified Code(s): S22.070A - Wedge compression fracture of T9-T10 vertebra, initial encounter for closed fracture (2) Lumbar compression fracture: QUALIFIERS: Encounter type: initial encounter Lumbar vertebra fracture level: L1 Qualified Code(s): S32.010A - Wedge compression fracture of first lumbar vertebra, initial encounter for closed fracture (3) History of kyphoplasty: (4) Thoracolumbar kyphosis: QUALIFIERS: Kyphosis type: other secondary Qualified Code(s): M40.15 - Other secondary kyphosis, thoracolumbar region (5) Osteoporosis: QUALIFIERS: Osteoporosis type: age-related Presence of current pathological fracture: without current pathological fracture Qualified Code(s): M81.0 - Age-related osteoporosis without current pathological fracture PLAN: Plan Reviewed recently done CT and MRI of thoracic and lumbar spine since admission. Also reviewed thoracic and lumbar x-rays from October. These show compression fracture deformities at L1, T11, T9. T11 has cement augmentation from history of kyphoplasty. L1 fracture was visible even in the October x-ray. T9 fracture however is not new as it was not present in October x-ray. MRI shows intravertebral cleft at T9 from compression fracture nonhealing. Hyperintensity also noticed on L1 suggesting subacute nature of the L1 fracture. Internal gibbus and cord indentation noticed. Significant thoracolumbar kyphosis noticed. Osteopenia noticed. Explained imaging findings in detail. Patient has had multiple compression fractures likely pathologic from osteoporosis. Patient is on Prolia and is anticipating second dose in late April. He should continue with this treatment. For his more recent T9 fracture and subacute L1 fracture, treatment options were discussed. Explained to him that most compression fractures heal over 6 to 12 weeks. Patient may consider kyphoplasty for either T9 or T9 and L1 if his pain is affecting his quality of life and not improving with time. His most recent fall about a month ago may have caused a new T9 fracture. Explained to patient and that the fractures are not related to hypoxia or pedal edema. However, use of pain medications for the pain may cause respiratory depression. Purpose of kyphoplasty at T9 or T11 would be for pain control alone and not improve hypoxia, pedal edema or balance issues. Explained that there is internal gibbus with cord indentation which may cause myelopathy. If the balance difficulties are not worsening with time, this may be observed. Kyphoplasty will likely not improve myelopathy. Patient wishes to think over his options and follow-up with me on an outpatient basis. Charges/Coding Visit Charges Inpatient E&M: 40497 Init Hosp L3
--- NOTE | 2025-03-25 13:34 | CASEMGMT ---
Addendum entered by Cindy Jo 03/25/25 14:06: [facility] declined. RN CM updated. Cindy Jo DC Planning Asst. Original Note: Discharge Planning SNF referral made to [facility]. Cindy Jo DC Planning Asst.
--- NOTE | 2025-03-25 14:16 | CASEMGMT ---
Addendum entered by Rom Schaefer 03/25/25 17:16: Dr Fabian states pt may be medically ready Sat or Sun. Alta @ [facility] has been made aware. Received message from Alta, [facility] staff development coordinator rn, that they are able to accept pt. Pt and family made aware and voice appreciation. Message sent to [facility] that pt has chosen another facility and to cancel referral. Dr Fabian made aware [facility] has accepted pt & they can take pt as early as tomorrow. Green sheet on chart w/instructions for pt dc to [facility] when medically ready. Addendum entered by Rom Schaefer 03/25/25 16:22: Pt and family made aware, if pt not accepted @ [facility], of cost of W/C van transport to [facility] and that insurance does not cover this. states she is aware of this. She is considering transporting pt herself, but she is not sure yet. Addendum entered by Rom Schaefer 03/25/25 16:10: SAMANTHA SALAZAR to room. and dtr in room visiting. Pt remains sitting up in recliner. They were notified [facility] has accepted. They state they really have their heart set on [facility]. Reinforced that [facility] not able to accept and made aware they stated they do not have any beds available. Further questions answered. They stated they would now like a referral sent to [facility]. They state if [facility] not able to accept pt, then they would be agreeable to pt going to [facility]. Referral sent to [facility]. Addendum entered by Cindy Jo 03/25/25 15:22: [facility] declined and [facility] has accepted. SAMANTHA SALAZAR updated. Cindy Jo DC Planning Asst. Original Note: SAMANTHA SALAZAR note: SAMANTHA SALAZAR to room. Pt placed call to . Pt and both updated that [facility] not able to accept pt. states the next 2 preferences are: 1) [facility] 2) [facility] Referrals sent. Awaiting response. Chao KNIGHT RN, CM
[2025-03-26] VITALS (10 sets, daily range): BP systolic 114–159; BP diastolic 64–82; PULSE 82–101; RESP 16–18; TEMP 36.6–36.8; O2SAT 96–98; BMI 23.8; BMI 25.7
[2025-03-26] MEDS: hydrOXYzine PAM 25 MG Capsule PO ×5 (00:19→23:45)
[2025-03-26 05:38] LABS: Hematocrit 34.4 % (40-54); Hemoglobin 11.6 g/dL (13.0-16.5); Immature Granulocytes Count 0.030 X10^3/uL (0.0-0.0); Mean Corp Hgb Conc 33.7 g/dL (32-36); Mean Corpuscular Volume 95.3 fL (80-94); Mean Platelet Vol. 9.1 fl (6.2-12.0); NRBC Flagged by Analyzer 0.3 % (0-5); Platelet Count 210 K/mm3 (150-450); RBC Distribution Width CV 13.2 % (11.6-14.6); RBC Distribution Width SD 46.3 fl (35.1-43.9); Red Blood Count 3.61 M/mm3 (4.6-6.2); White Blood Count 7.2 K/mm3 (4.4-11.0)
[2025-03-26 06:15] LABS: Anion Gap 8 (5-15); BUN 17 mg/dL (4-19); BUN/Creat Ratio 21.8 RATIO (10-20); Calcium,Total 8.5 mg/dL (7.6-11.0); Carbon Dioxide 32.6 mmol/L (21.0-32.0); Chloride 103 mmol/L (98-108); Estimated Creatinine Clearance 70.00 ml/min (50-250); Glucose 96 mg/dL (70-99); Potassium 3.3 mmol/L (3.3-5.1)
[2025-03-26] MEDS: Senna/Docusate Sodium 1 Tablet 2 TABLET PO (08:53)
[2025-03-26] MEDS: Albuterol 2.5 MG/3 ML VIAL.NEB. INHALATION (08:55)
--- NOTE | 2025-03-26 10:57 | PN_ITS ---
Subjective Subjective Patient seen and examined. He had no active complaints. I saw him with his nurse by his bedside. The swelling in his lower extremities has improved markedly. Patient however has bilateral crackles which is likely due to atelectasis. He is not doing very well with the incentive spirometry and encouraged to use it. His is also on the phone and was reviewing him and she was updated. He is to go to the TCU upon discharge. Objective Data Objective Data Vital Signs: Vital Signs Temp Pulse Resp BP Pulse Ox O2 Del Method O2 Flow Rate 98.2 F 101 H 18 159/82 H 96 Nasal Cannula 2 03/26/25 08:38 03/26/25 08:38 03/26/25 09:07 03/26/25 08:38 03/26/25 08:38 03/26/25 08:38 03/26/25 08:38 Oxygen Flow Rate (L/min) 2 Oxygen Delivery Method Nasal Cannula Weight: 164 lb Body Mass Index (BMI) 25.7 Intake & Output: Intake and Output for Last 24 Hours 03/24/25 03/25/25 03/26/25 23:59 23:59 23:59 Intake Total 720 / 720 400 / 400 Output Total 1850 / 1850 1300 / 1300 300 / 300 Balance -1130 / -1130 -900 / -900 -300 / -300 Lab / Micro Data 03/26/25 05:05 03/26/25 05:05 Labs: Laboratory Results - last 24 hr 03/26/25 05:05: WBC 7.2, RBC 3.61 L, Hgb 11.6 L, Hct 34.4 L, MCV 95.3 H, MCH 32.1 H, MCHC 33.7, RDW Std Deviation 46.3 H, RDW Coeff of Stefanie 13.2, Plt Count 210, MPV 9.1, Immature Gran % (Auto) 0.400, Neut % (Auto) 64.6, Lymph % (Auto) 14.1 L, [place] % (Auto) 13.0 H, Eos % (Auto) 7.5 H, Baso % (Auto) 0.4, Absolute Neuts (auto) 4.6, Absolute Lymphs (auto) 1.01, Nucleated RBC % 0.3, Sodium 144, Potassium 3.3, Chloride 103, Carbon Dioxide 32.6 H, Anion Gap 8, BUN 17, Creatinine 0.79, Estim Creat Clear Calc 70.00, Est GFR (MDRD) Non-Af 91, B UN/Creatinine Ratio 21.8 H, Glucose 96, Calcium 8.5 Physical Exam Const alert, oriented x3 and no apparent distress Constitutional Narrative: frail General Appearance: cooperative HEENT normocephalic and head/scalp atraumatic Eyes PERRL Neck no lymphadenopathy and supple Lymph Lymphatic: no lymphadenopathy noted and no lymphedema noted Resp Resp Narrative: mildly diminished breath sounds bibasally, Cardio regular rate, regular rhythm, S1 normal heart sound, S2 normal heart sound and no murmurs GI normal to inspection, nondistended, normoactive bowel sounds and soft to palpation Extremity Extremity Narrative: bilateral LE swelling has resolved. General Extremity: no tenderness to palpation of joints or extremities Skin Skin Narrative: as under extremities. Neuro CN's II-XII intact bilaterally Motor Exam: general weakness Psych thought process normal and cooperative Appearance: appropriate Assessment & Plan Assessment/Plan (1) Acute on chronic back pain: PLAN: Plan #Debility and weakness due to mechanical falls with resultant compression fractures * Patient complaining of acute on chronic back pain. Imaging done showed severe compression fracture of L1 with moderate spinal canal stenosis in addition to moderate to severe compression deformity of T9 vertebral body. * Lumbar spine MRI showed fractures of T11 and L1 vertebral bodies which is chronic with moderate bone marrow edema and foraminal narrowing at L1 and L2 and L3-L4, L4-L5, L5-S1. * Thoracic spine MRI showed straightening of the upper thoracic spine with acute kyphosis of the lower thoracic spine related to multiple fractures and severe exit foraminal narrowing at T9-10. * PT OT on board. Fall precautions. On lidocaine patch as needed as well as IV Toradol and gabapentin. * PT/OT on board. Fall precautions. * orthospine consulted. #Bilateral lower extremity swelling * Etiology is unclear. 2D echo done today showed EF of 55% with no diastolic dysfunction. His got on the phone and give more of his history. She said he had been having this lower extremity edema for some weeks now and was seen at [facility] where he was told that he may need Lasix. She states that he had some cardiac testing done though she does not know the exact ones he had done and these were all negative. He was on Lasix for some time but it did not really help. * Patient currently on IV Lasix. He is diuresing very well. * bilateral LE sweling has resolved. * will switch to PO lasix #Hypoxia: * Patient still on 2 L of oxygen. His lungs have bilateral crackles. He is being diuresed so is not likely fluid overload. * likely has atelectasis. Will repeat CXR today. * encourage incentive spirometry. * Breathing treatments bronchodilators. Titrate oxygen to maintain saturation above 90%. * #Hypokalemia: K is 3.3. Improved from 3.1 yesterday. Hypertension: On Coreg and losartan as well as amlodipine. 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 DVT prophylaxis: lovenox COde status: full code Charges/Coding Visit Charges Inpatient E&M: 95628 Subs Hosp L2
--- NOTE | 2025-03-26 15:20 | RAD_ITS ---
EXAM: XR Chest, 1 View CLINICAL INDICATION: 2 L NC REQUIREMENT TECHNIQUE: Frontal view of the chest. COMPARISON: No relevant prior studies available. FINDINGS: LUNGS AND PLEURAL SPACES: See below. HEART: Cardiomegaly with mild congestion. MEDIASTINUM: Unremarkable. Normal mediastinal contour. BONES/JOINTS: Unremarkable. No acute fracture. RAD/Chest 1 View (Portable) IMPRESSION: Cardiomegaly with mild congestion. Reading Location: [id number]
[2025-03-27 02:37] VITALS: BP 121/67; PULSE 85; RESP 18; TEMP 36.6; O2SAT 96
[2025-03-27 02:42] VITALS: BMI 25.5
[2025-03-27 06:10] LABS: Hematocrit 33.8 % (40-54); Hemoglobin 11.5 g/dL (13.0-16.5); Immature Granulocytes Count 0.040 X10^3/uL (0.0-0.0); Mean Corp Hgb Conc 34.0 g/dL (32-36); Mean Corpuscular Volume 94.4 fL (80-94); Mean Platelet Vol. 9.1 fl (6.2-12.0); NRBC Flagged by Analyzer 0 % (0-5); Platelet Count 211 K/mm3 (150-450); RBC Distribution Width CV 13.4 % (11.6-14.6); RBC Distribution Width SD 45.9 fl (35.1-43.9); Red Blood Count 3.58 M/mm3 (4.6-6.2); White Blood Count 8.2 K/mm3 (4.4-11.0)
[2025-03-27 06:31] LABS: Anion Gap 8 (5-15); BUN 18 mg/dL (4-19); BUN/Creat Ratio 26.9 RATIO (10-20); Calcium,Total 8.5 mg/dL (7.6-11.0); Carbon Dioxide 32.2 mmol/L (21.0-32.0); Chloride 104 mmol/L (98-108); Estimated Creatinine Clearance 70.00 ml/min (50-250); Glucose 95 mg/dL (70-99); Potassium 3.0 mmol/L (3.3-5.1)
[2025-03-27] MEDS: Potassium Chloride 10mEq/100mL 10 MEQ/100 ML IV.SOLN. 100 MEQ IV BOLUS ×4 (08:29→11:26)
[2025-03-27 08:35] VITALS: BP 126/81; PULSE 112; RESP 18; TEMP 36.9; O2SAT 93
[2025-03-27] MEDS: hydrOXYzine PAM 25 MG Capsule PO ×2 (08:38→13:29)
[2025-03-27] MEDS: Senna/Docusate Sodium 1 Tablet 2 TABLET PO (08:39)
[2025-03-27 09:37] VITALS: O2SAT 87; O2SAT 93; O2SAT 94
[2025-03-27 11:30] VITALS: BP 115/67; PULSE 97; RESP 16; TEMP 36.8; O2SAT 93
--- NOTE | 2025-03-27 12:23 | TREXTCAR_ITS ---
Diet Diet Order/Speech Therapy: INPATIENT Hospital Diet / Speech Therapy Order(s) 03/23/25 22:15 Diet: Cardiac - Heart Healthy Food consistency:: Regular Liquid Consistency:: Regular/Thin Routine Orders/Code Status Enema Type: Fleetz Enema Frequency: Daily PRN Suppository Frequency: Daily PRN Code Status: Full Code DC O2, CPAP, BIPAP needs Home O2 Discharge instructions: Yes Type of respiratory needs?: Oxygen Oxygen frequency: Continuous Continuous oxygen liters per minute: 2 Wound(s) Intergluteal Cleft: Wound Type: excoriated Therapies Weight Bearing: Weight bearing as tolerated Physical Therapy: Eval and Treat Occupational Therapy: Eval and Treat Problem/Diagnosis (1) Acute on chronic back pain: Status: Acute Code(s): M54.9 - Dorsalgia, unspecified; G89.29 - Other chronic pain Plan #Debility and weakness due to mechanical falls with resultant compression fractures * Patient complaining of acute on chronic back pain. Imaging done showed severe compression fracture of L1 with moderate spinal canal stenosis in addition to moderate to severe compression deformity of T9 vertebral body. * Lumbar spine MRI showed fractures of T11 and L1 vertebral bodies which is chronic with moderate bone marrow edema and foraminal narrowing at L1 and L2 and L3-L4, L4-L5, L5-S1. * Thoracic spine MRI showed straightening of the upper thoracic spine with acute kyphosis of the lower thoracic spine related to multiple fractures and severe exit foraminal narrowing at T9-10. * PT OT on board. Fall precautions. On lidocaine patch as needed as well as IV Toradol and gabapentin. * PT/OT on board. Fall precautions. * orthospine consulted. #Bilateral lower extremity swelling * Etiology is unclear. 2D echo done today showed EF of 55% with no diastolic dysfunction. His got on the phone and give more of his history. She said he had been having this lower extremity edema for some weeks now and was seen at [facility] where he was told that he may need Lasix. She states that he had some cardiac testing done though she does not know the exact ones he had done and these were all negative. He was on Lasix for some time but it did not really help. * Patient currently on IV Lasix. He is diuresing very well. * bilateral LE sweling has resolved. * will switch to PO lasix #Hypoxia: * Patient still on 2 L of oxygen. His lungs have bilateral crackles. He is being diuresed so is not likely fluid overload. * likely has atelectasis. Will repeat CXR today. * encourage incentive spirometry. * Breathing treatments bronchodilators. Titrate oxygen to maintain saturation above 90%. * #Hypokalemia: K is 3.3. Improved from 3.1 yesterday. Hypertension: On Coreg and losartan as well as amlodipine. 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 Will discontinue 120ml EPHP TID with medpass, per pt request. Discharge Plan Admission Admit Date/Time: 03/23/25 20:15 Primary Reason for Your Visit: lower extremity swelling, hypoxia Attending Provider: Katarina Fabian Primary Care Provider: Katherine Brand NP Consulting Providers: Mike Freire; Merry Pham Instructions Patient Instructions: ED Peripheral Edema, Bilateral Additional Instructions / Restrictions: amlodipine stopped as it can cause lower extremity swelling also Discharge Orders/Prescriptions Prescriptions: New furosemide 40 mg Tablet 40 mg PO DAILY Qty: 30 2RF albuterol sulfate 90 mcg/actuation aerosol powdr breath activated 1 inh inhalation Q6H PRN (Reason: shortness of breath) Qty: 1 0RF potassium chloride [K-Tab] 20 mEq tablet extended release 20 meq PO DAILY Qty: 30 0RF Continued carvedilol 3.125 mg tablet 3.125 mg PO BID Rx Instructions: must administer with a meal/food losartan 25 mg tablet 100 mg PO DAILY calcium carbonate 500 mg calcium (1,250 mg) tablet,chewable 1,000 mg PO QDAY paroxetine HCl 40 mg tablet 40 mg PO QDAY tamsulosin [Flomax] 0.4 mg capsule 0.4 mg PO QDAY buspirone 15 mg tablet 15 mg PO BID cyanocobalamin (vitamin B-12) 1,000 mcg capsule 1,000 mcg PO QDAY melatonin 5 mg capsule 5 mg PO QHS PRN cholecalciferol (vitamin D3) 1,250 mcg (50,000 unit) capsule 1,250 mcg PO QWEEK acetaminophen [Tylenol] 325 mg tablet 650 mg PO Q6H PRN (Reason: pain) hydroxyzine HCl 25 mg tablet 25 mg PO 4X/DAY Discontinued amlodipine 10 mg tablet 10 mg PO QDAY Referrals / Follow Up: Mike Freire MD [Med Staff - Active Staff] - Within 2 Weeks (see to establish care for back pain) Katherine Brand NP, [facility] [Primary Care Provider] - Within 1 Week Disposition Disposition (needs filled in before D/C Order can be placed): [facility]
[2025-03-27 13:28] VITALS: BP 127/71; PULSE 95; RESP 18; TEMP 36.3; O2SAT 96
--- NOTE | 2025-03-27 13:37 | DS.PCM_ITS ---
Providers Date of Admission: 03/23/25 Date of Discharge: 03/27/25 Primary Care Physician: Katherine Brand, LOIS Consultations 03/23/25 22:14 Consult: Orthopedics Routine Consulting Provider: Mike Freire Reason for Consult: Acute on chronic back pain, fall w/ L1 vertebral body comp fx, canal narrow EMERGENT Consult: No MD Notified: Yes Date Notified: 03/23/25 Time Notified: 20:20 Method of Notification: Text Reason For Visit: ACUTE ON CHRONIC BACK PAIN, WORSENING BL LE EDEMA Diagnosis Discharge Diagnosis (1) Acute on chronic back pain: Status: Acute Code(s): M54.9 - Dorsalgia, unspecified; G89.29 - Other chronic pain Plan #Debility and weakness due to mechanical falls with resultant compression fractures * Patient complaining of acute on chronic back pain. Imaging done showed severe compression fracture of L1 with moderate spinal canal stenosis in addition to moderate to severe compression deformity of T9 vertebral body. * Lumbar spine MRI showed fractures of T11 and L1 vertebral bodies which is chronic with moderate bone marrow edema and foraminal narrowing at L1 and L2 and L3-L4, L4-L5, L5-S1. * Thoracic spine MRI showed straightening of the upper thoracic spine with acute kyphosis of the lower thoracic spine related to multiple fractures and severe exit foraminal narrowing at T9-10. * PT OT on board. Fall precautions. On lidocaine patch as needed as well as IV Toradol and gabapentin. * PT/OT on board. Fall precautions. * orthospine consulted. #Bilateral lower extremity swelling * Etiology is unclear. 2D echo done today showed EF of 55% with no diastolic dysfunction. His got on the phone and give more of his history. She said he had been having this lower extremity edema for some weeks now and was seen at [facility] where he was told that he may need Lasix. She states that he had some cardiac testing done though she does not know the exact ones he had done and these were all negative. He was on Lasix for some time but it did not really help. * Patient currently on IV Lasix. He is diuresing very well. * bilateral LE sweling has resolved. * will switch to PO lasix #Hypoxia: * Patient still on 2 L of oxygen. His lungs have bilateral crackles. He is being diuresed so is not likely fluid overload. * likely has atelectasis. Will repeat CXR today. * encourage incentive spirometry. * Breathing treatments bronchodilators. Titrate oxygen to maintain saturation above 90%. * #Hypokalemia: K is 3.3. Improved from 3.1 yesterday. Hypertension: On Coreg and losartan as well as amlodipine. 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 DVT prophylaxis: lovenox COde status: full code Medications at Discharge Home Medications carvedilol 3.125 mg tablet 3.125 mg PO BID 07/09/23 buspirone 15 mg tablet 15 mg PO BID 07/26/24 calcium carbonate 1,000 mg PO QDAY 07/26/24 cyanocobalamin (vitamin B-12) 1,000 mcg capsule 1,000 mcg PO QDAY 07/26/24 losartan 25 mg tablet 100 mg PO DAILY 07/26/24 melatonin 5 mg capsule 5 mg PO QHS PRN Sleep 07/26/24 paroxetine HCl 40 mg tablet 40 mg PO QDAY 07/26/24 tamsulosin 0.4 mg capsule (Flomax) 0.4 mg PO QDAY 07/26/24 cholecalciferol (vitamin D3) 1,250 mcg (50,000 unit) capsule 1,250 mcg PO QWEEK 09/23/24 acetaminophen 325 mg tablet (Tylenol) 650 mg PO Q6H PRN pain 03/23/25 hydroxyzine HCl 25 mg tablet 25 mg PO 4X/DAY Anxiety 03/24/25 albuterol sulfate 90 mcg/actuation breath activated powder inhaler 1 inh inhalation Q6H PRN shortness of breath #1 ea 03/27/25 furosemide 40 mg tablet 40 mg PO DAILY #30 tabs 03/27/25 potassium chloride 20 mEq tablet,extended release (K-Tab) 20 meq PO DAILY #30 tabs 03/27/25 Hospital Course Operations None Procedures 2-D Echocardiogram Summary of Care Provided Minutes Spent on Discharge: 45 Hospital Course: Patient is a 80-year-old male with past medical history as outlined who was admitted through the ED on 03/23/2025 with complaint of progressively worsening swelling of his lower extremities. He had recently been started on Lasix about 2 weeks prior to admission. He used it for 3 days but said his symptoms did not improve so he stopped the Lasix. He had a history of back pain and balance issues and so went back to the ED after he fell. He said the back pain was worsened by activity. He went back to the ED and proBNP was 417. Bilateral lower extremity duplex were negative and CT brain showed no acute intracranial pathology. CT of the lumbar spine showed severe compression deformity of the L1 vertebral body which was likely chronic and resulting in moderate spinal canal stenosis and CT of the thoracic spine showed no acute fracture and showed moderate to severe compression deformity at T9 vertebral body with inability to rule out acute fracture. Chest x-ray showed no acute cardiopulmonary findings. He was admitted and managed for bilateral lower extremity edema. Patient did develop some hypoxia during this admission requiring 2 L of oxygen. He was diuresed with IV Lasix 40 mg twice daily. He did have 2D echo which showed EF of 55% with no evidence of diastolic dysfunction and no regional wall motion abnormalities noted and pulmonary artery systolic pressure of 35 mmHg. The lower extremity swelling subsequently resolved. Orthopedic surgery was consulted and recommended patient follow-up on outpatient basis with spine surgery. Patient was discharged to transitional care unit on 03/27/2025 on p.o. Lasix 40 mg daily with potassium supplementation. His amlodipine was discontinued as it could be the cause of his lower extremity swelling. He is to follow-up with his primary care doctor within 1 to 2 weeks. Patient did have walking pulse ox and required 2 L of oxygen. Patient seen and examined prior to discharge. He had no active complaints. He still felt weak due to the back pain. He was encouraged to use his incentive spirometer. Labs and vitals reviewed. Home medication reviewed and reconciled. Physical Exam Const alert, oriented x3 and no apparent distress Constitutional Narrative: frail General Appearance: cooperative HEENT normocephalic and head/scalp atraumatic Mouth: oral and palatal mucosa normal Eyes PERRL, EOMs intact bilaterally and conjunctivae normal Neck no lymphadenopathy and supple Lymph Lymphatic: no lymphadenopathy noted and no lymphedema noted Resp Resp Narrative: mildly diminished breath sounds bibasally, Cardio regular rate, regular rhythm, S1 normal heart sound, S2 normal heart sound and no murmurs GI normal to inspection, nondistended, normoactive bowel sounds and soft to palpation Extremity normal to inspection, full ROM and no clubbing, cyanosis or edema Extremity Narrative: bilateral LE swelling has resolved. General Extremity: no tenderness to palpation of joints or extremities Skin Skin Narrative: as under extremities. Neuro oriented x3, CN's II-XII intact bilaterally and moves all extremities Sensorium / Orientation: awake Motor Exam: general weakness Psych thought process normal and cooperative Mood & Affect: anxious Weight / BMI Weight Weight: 163 lb 2.273 oz Body Mass Index (BMI) 25.5 ABG / Lab / Microbiology Data 03/27/25 05:25 03/27/25 05:25 Laboratory: Laboratory Results - last 24 hr 03/27/25 05:25: WBC 8.2, RBC 3.58 L, Hgb 11.5 L, Hct 33.8 L, MCV 94.4 H, MCH 32.1 H, MCHC 34.0, RDW Std Deviation 45.9 H, RDW Coeff of Stefanie 13.4, Plt Count 211, MPV 9.1, Immature Gran % (Auto) 0.500, Neut % (Auto) 69.0, Lymph % (Auto) 12.6 L, Dent % (Auto) 11.8 H, Eos % (Auto) 5.7 H, Baso % (Auto) 0.4, Absolute Neuts (auto) 5.7, Absolute Lymphs (auto) 1.03, Nucleated RBC % 0, Sodium 145, P otassium 3.0 L, Chloride 104, Carbon Dioxide 32.2 H, Anion Gap 8, BUN 18, C reatinine 0.67 L, Estim Creat Clear Calc 70.00, Est GFR (MDRD) Non-Af 95, B UN/Creatinine Ratio 26.9 H, Glucose 95, Calcium 8.5 Radiography Diagnostic Testing: Radiology Impression Chest X-Ray 03/26/25 15:20 IMPRESSION: Cardiomegaly with mild congestion. Reading Location: [facility] D/C Instructions Discharge Activity: Return to Normal Activity Weight Bearing Status: Weight bearing as tolerated Call your doctor if you observe: Fever of 101 or Higher, Shortness of breath, Dizziness, Swelling in the ankles and Chest pain DC O2, CPAP, BIPAP Needs Home O2 Discharge instructions: Yes Type of respiratory needs?: Oxygen Oxygen frequency: Continuous Continuous oxygen liters per minute: 2 DC home with Oxygen: Yes Home O2 MD Review: I have reviewed the oxygen testing, and the patient qualifies for home oxygen equipment and portability. The patient is mobile in the home and the community. Meaningful Use Info Meaningful Use Meaningful Use Diagnoses (Choose all that apply): None applicable Discharge Plan Admission Admit Date/Time: 03/23/25 20:15 Primary Reason for Your Visit: lower extremity swelling, hypoxia Attending Provider: Katarina Fabian Primary Care Provider: Katherine Brand NP Consulting Providers: Mike Freire; Merry Pham Instructions Patient Instructions: ED Peripheral Edema, Bilateral Additional Instructions / Restrictions: amlodipine stopped as it can cause lower extremity swelling also Discharge Orders/Prescriptions Prescriptions: New furosemide 40 mg Tablet 40 mg PO DAILY Qty: 30 2RF albuterol sulfate 90 mcg/actuation aerosol powdr breath activated 1 inh inhalation Q6H PRN (Reason: shortness of breath) Qty: 1 0RF potassium chloride [K-Tab] 20 mEq tablet extended release 20 meq PO DAILY Qty: 30 0RF Continued carvedilol 3.125 mg tablet 3.125 mg PO BID Rx Instructions: must administer with a meal/food losartan 25 mg tablet 100 mg PO DAILY calcium carbonate 500 mg calcium (1,250 mg) tablet,chewable 1,000 mg PO QDAY paroxetine HCl 40 mg tablet 40 mg PO QDAY tamsulosin [Flomax] 0.4 mg capsule 0.4 mg PO QDAY buspirone 15 mg tablet 15 mg PO BID cyanocobalamin (vitamin B-12) 1,000 mcg capsule 1,000 mcg PO QDAY melatonin 5 mg capsule 5 mg PO QHS PRN cholecalciferol (vitamin D3) 1,250 mcg (50,000 unit) capsule 1,250 mcg PO QWEEK acetaminophen [Tylenol] 325 mg tablet 650 mg PO Q6H PRN (Reason: pain) hydroxyzine HCl 25 mg tablet 25 mg PO 4X/DAY Discontinued amlodipine 10 mg tablet 10 mg PO QDAY Referrals / Follow Up: Mike Freire MD [Med Staff - Active Staff] - Within 2 Weeks (see to establish care for back pain) Katherine Brand NP, [employer] [Primary Care Provider] - Within 1 Week Disposition Disposition (needs filled in before D/C Order can be placed): [facility] Charges/Coding Visit Charges Inpatient E&M: 59050 Disch Hosp >30min
== END 2025-03-27 13:40 | disposition skilled nursing facility (03) | DRG 552 ==
LOC: ED 20:06 → PCU 21:30
PROVIDERS: Admitting Provider Family Medicine; Emergency Provider Emergency Medicine; PCP Nurse Practitioner Primary Care; Visit Provider Student in an Organized Health Care Education/Training Program
DX: M54.9 Dorsalgia, unspecified (principal); M80.08XA Age-related osteoporosis with current pathological fracture, vertebra(e), initial encounter for fracture; J98.11 Atelectasis; N13.8 Other obstructive and reflux uropathy; D63.1 Anemia in chronic kidney disease; R62.7 Adult failure to thrive; I12.9 Hypertensive chronic kidney disease with stage 1 through stage 4 chronic kidney disease, or unspecified chronic kidney disease; F32.A Depression, unspecified; N18.2 Chronic kidney disease, stage 2 (mild); M19.90 Unspecified osteoarthritis, unspecified site; E78.5 Hyperlipidemia, unspecified; D53.9 Nutritional anemia, unspecified; E87.6 Hypokalemia; F41.9 Anxiety disorder, unspecified; M40.15 Other secondary kyphosis, thoracolumbar region; R60.0 Localized edema; R53.81 Other malaise; Z87.891 Personal history of nicotine dependence; N40.1 Benign prostatic hyperplasia with lower urinary tract symptoms; G89.29 Other chronic pain; M85.80 Other specified disorders of bone density and structure, unspecified site; R09.02 Hypoxemia; Z90.49 Acquired absence of other specified parts of digestive tract; R29.6 Repeated falls; Z68.25 Body mass index [BMI] 25.0-25.9, adult
CPT/HCPCS: 36415; 70450; 71045; 72128; 72131; 72146; 72148; 80048; 80053; 80061; 82607; 82728; 82746; 83540; 83550; 83690; 83735; 83880; 84443; 84484; 85025; 93005; 93306; 93970; 94640; 94668; 97116; 97162; 97166; 97530; 97535; 97802; 99285; Q9957; A4216; J1938

== ENCOUNTER 2025-03-27 14:11 | Inpatient (IN) | payer MEDICARE, BC, SELFPAY ==
--- OUTSIDE RECORDS SUMMARY | 2025-03-27 14:24 | XMS RPT_ITS | CCD ---
Author Organization [facility] Care Team Providers Care Director Of Analytical Development Name Role Phone YOLANDA GOODSON, ARACELI Ontiveros Primary Care Physician SUNDAY PARKING OFFICER-RIP AND GROOVE MACHINE OPERATOR, KATHERINE Bowie Primary Care Physicia n KATHERINE BRAND Primary Care Unavailable KATHERINE BRAND Attending Unavailable SUNDAY, KATHERINE Primary Care Unavailable KATHERINE BRAND Attending Unavailable SUNDAY, KATHERINE Primary Care Unavailable KATHERINE BRAND Attending Unavailable INDRA PARKING OFFICER-RIP AND GROOVE MACHINE OPERATOR, OSMEL Chavez Admitting Unavailable SUNDAY, KATHERINE Primary Care Unavailable LIDA SCHMIDT DO Attending Unavailable PATE DOBRODY Consulting Unavailable SUNDAY, KATHERINE Primary Care Unavailable EDUARDA APARICIO, DR BADILLO Attending Unavailable KILEY PARKING OFFICER-RIP AND GROOVE MACHINE OPERATORFORREST Admitting Unava ilable KATHERINE BRAND Consulting Unavailable SUNDAY, KATHERINE Primary Care Unavailable CURLY GOODSON, DR BENDER Attending Unavailab SIERRA Keyes DO Attending Unavailable SUNDAY, KATHERINE Primary Care Unavailable SUNDAY, KATHERINE Primary Care Unavailable KATHERINE BRAND Attending Unavailable SUNDAY PARKING OFFICER-RIP AND GROOVE MACHINE OPERATOR, KATHERINE S Primary Care Unava ilable SUNDAY PARKING OFFICER-RIP AND GROOVE MACHINE OPERATOR, KATHERINE S Attending Unava ilable SUNDAY PARKING OFFICER-RIP AND GROOVE MACHINE OPERATOR, KATHERINE S Attending Unava ilable SUNDAY PARKING OFFICER-RIP AND GROOVE MACHINE OPERATOR, KATHERINE S Primary Care Unava ilable SUNDAY PARKING OFFICER-RIP AND GROOVE MACHINE OPERATOR, KATHERINE S Primary Care Unava ilable SUNDAY PARKING OFFICER-RIP AND GROOVE MACHINE OPERATOR, KATHERINE S Attending Unava ilable SUNDAY PARKING OFFICER-RIP AND GROOVE MACHINE OPERATOR, KATHERINE S Attending Unava ilable SUNDAY PARKING OFFICER-RIP AND GROOVE MACHINE OPERATOR, KATHERINE S Primary Care Unava ilable SUNDAY PARKING OFFICER-RIP AND GROOVE MACHINE OPERATOR, KATHERINE S Attending Unava ilable SUNDAY PARKING OFFICER-RIP AND GROOVE MACHINE OPERATOR, KATHERINE S Primary Care Unava ilable SIERRA BLACK Attending Unavailable SUNDAY PARKING OFFICER-RIP AND GROOVE MACHINE OPERATOR, KATHERINE S Primary Care Unava ilable SUNDAY PARKING OFFICER-RIP AND GROOVE MACHINE OPERATOR, KATHERINE S Primary Care Unava ilable SHRUTHI-COOPER PARKING OFFICER-RIP AND GROOVE MACHINE OPERATOR, OSMEL Chavez Admitting Unavailable TWILA GOODSON FACP, PAULINO Glaser Attending Unavail able SUNDAY PARKING OFFICER-RIP AND GROOVE MACHINE OPERATOR, KATHERINE S Primary Care Unava ilable SHRUTHI-COOPER PARKING OFFICER-RIP AND GROOVE MACHINE OPERATOR, OSMEL Chavez Admitting Unavailable BRODY PATE DO Consulting Unavailable LIDA SCHMIDT DO Attending Unavailable SUNDAY PARKING OFFICER-RIP AND GROOVE MACHINE OPERATOR, KATHERINE S Primary Care Unava ilable SEFFENS PARKING OFFICER-RIP AND GROOVE MACHINE OPERATOR, DANY Attending Unavai lable SUNDAY PARKING OFFICER-RIP AND GROOVE MACHINE OPERATOR, KATHERINE S Attending Unava ilable SUNDAY PARKING OFFICER-RIP AND GROOVE MACHINE OPERATOR, KATHERINE S Primary Care Unava ilable AMBER GREENWOOD MD Attending Unavailable SUNDAY PARKING OFFICER-RIP AND GROOVE MACHINE OPERATOR, KATHERINE S Primary Care Unava ilable SUNDAY PARKING OFFICER-RIP AND GROOVE MACHINE OPERATOR, KATHERINE S Primary Care Unava ilable SUNDAY PARKING OFFICER-RIP AND GROOVE MACHINE OPERATOR, KATHERINE S Attending Unava ilable SUNDAY PARKING OFFICER-RIP AND GROOVE MACHINE OPERATOR, KATHERINE S Attending Unava ilable SUNDAY PARKING OFFICER-RIP AND GROOVE MACHINE OPERATOR, KATHERINE S Primary Care Unava ilable Sunday HOUSEKEEPING ROOM INSPECTOR-C, Katherine Primary Care Provider Dr. Marco Camahco DO Emergency Provider Dr. Merry Pham MD Admit Provider [phone] Dr. Merry Pham MD Attending Provider Sunday, Katherine Referring Unavailable [place], Katherine Primary Care Unavailable Amber Greenwood Attending Unavailable Sunday, Katherine Primary Care Unavailable Abraham Martins Attending Unavailable Merry Pham Admitting Unavailable Koram, Katarina Annette Attending Unavailable Sunday, Katherine Primary Care Unavailable Zandra Freire Consulting Unavailable Merry Pham Consulting Unavailable Koram, Katarina Annette Consulting Unavailable Shady Loving Attending Unavailabl e Sunday, Katherine Primary Care Unavailable Zandra Freire Attending Unavailable Merry Pham Attending Unavailable Sunday, Katherine Referring Unavailable Sunday, Katherine Primary Care Unavailable Amber Greenwood Attending Unavailable Vero GOODSON, Dr. Merry Wheat Other Provider [phone] Tani GOODSON, Dr. Mckeon Other Provider [phone] Caren GOODSON, Dr. Katarina Bryant Attending Provider Inder GOODSON, Dr. Caruso Attending Provider Caren GOODSON, Dr. Katarina Bryant Other Provider [phone] Tani GOODSON, Dr. Mckeon Attending Provider [phone] Allergies Allergy Classification Reported Allergen(s) Allergy Type Date of Onset Reaction(s) Facility (20 sources) Atenolol; Translations: [atenolol] Drug Allergy [facility] (20 sources) buPROPion; Translations: [bupropion] Drug Allergy [facility] (20 sources) Erythromycin; Translations: [erythromycin] Drug Allergy [facility] (20 sources) Loratadine; Translations: [loratadine] Drug Allergy [facility] (20 sources) Niacin; Translations: [niacin] Drug Allergy [facility] (17 sources) cyclobenzaprine; Translations: [cyclobenzaprine ] Drug Allergy Drowsiness, function (observable entity) [facility] (17 sources) fexofenadine; Translations: [fexofenadine] Drug Allergy Nausea (finding) [facility] Medications Current Medications Medication Drug Class(es) Dates Sig (Normalized) Sig (Original) acetaminophen 325 mg oral tablet (16 sources) Start: 03-23-2025 take 2 tablets by mouth every six hours as needed for pain Acetaminophen (Tylenol) 325 mg tablet Active 650 mg PO EVERY 6 HOURS as needed for pain March 23, 2025 12:00am Start: 02-25-2024 take 1 mg by mouth e very six hours as needed for pain acetaminophen 500 mg oral tablet mg = tab(s), Oral, q6hr, PRN as needed for pain, 0 Refill(s) Start Date: 02/25/24 Status: Ordered Repeat number: 1 200 actuat albuterol 0.09 mg/actuat dry powder inhaler (1 source) beta2-Adrenergic Agonist Start: 03-27-2025 Albut bryant Sulfate 90 mcg/actuation aerosol powdr breath activated Active 1 NMA INHALATION EVERY 6 HOURS as needed for shortness of breath 1 0 March 27, 2025 12:00am amLODIPine 10 mg oral tablet (18 sources) Dihydropyridine Calcium Channel Alejandro Start: 10-21-2023 End: 03-27-2025 amLODIPine 10 mg oral tablet Dose : 5 mg = 0.5 tab(s), Oral, qDay, # 15 tab(s), 3 Refill(s), other reason (Rx) Start Date: 03/09/25 Status: Ordered Quantity: 15.0 Unit: tab(s) Repeat number: 4 Start: 10-08-2023 amLODIPine 5 m g oral tablet Dose : 5 mg = 1 tab(s), Oral, qDay, # 30 tab(s), 1 Refill(s), [id number] 175.3, cm, 10/08/23 13:00:00 EST, Height, kg, 10/08/23 13:00:00 EST, Dosing Weight Start Date: 10/08/23 Status: Ordered busPIRone hydrochloride 30 m g oral tablet (18 sources) Start: 02-15-2025 End: 02-10-2026 busPIRone 30 mg oral tablet Dose : 30 mg = 1 tab(s), Oral, BID, # 180 tab(s), 3 Refill(s), Pharmacy: [facility], 167.5, cm, 02/10/25 14:35:00 EDT, Height, kg, 02/10/25 14:35:00 EDT, Dosing Weight Start Date: 02/15/25 Stop Date: 02/10/26 Status: Ordered Quantity: 180.0 Unit: tab(s) Repeat number: 4 Start: 10-21-2023 End: 01-19-2025 take 1 tablet by mouth twice daily Buspirone 15 mg tablet Active 15 mg PO TWICE A DAY July 26, 2024 1:00am Start: 10-08-2023 End: 12-07-2023 busPIRone 10 mg oral tablet Dose : 10 mg = 1 tab(s), Oral, BID, # 60 tab(s), 1 Refill(s), [id number] 175.3, cm, 10/08/23 13:00:00 EST, Height, kg, 10/08/23 13:00:00 EST, Dosing Weight Start Date: 10/08/23 Stop Date: 12/07/23 Status: Ordered calcium carbonate 500 mg chewable tablet (5 sources) Start: 11-03-2024 calcium carbon ate 500 mg (200 mg elemental calcium) oral tablet, chewable Dose : 1,000 mg = 2 tab(s), Chewed, qDay, 0 Refill(s) Start Date: 11/03/24 Status: Ordered Repeat number: 1 Start: 07-26-2024 take 1 tablet by margareth once daily Calcium Carbonate 500 mg calcium (1,250 mg) tablet,chewable Active 1000 mg PO daily July 26, 2024 1:00am carvedilol 12.5 mg oral tablet (20 sources) alpha-Adrenergic Alejandro, beta-Adrenergic Alejandro Start: 12-27-2024 carvedilol 12.5 mg oral tablet Dose : 12.5 mg = 1 tab(s), Oral, BID, # 180 tab(s), 3 Refill(s), Pharmacy: [facility], 167.5, cm, 11/03/24 15:02:00 EST, Height, kg, 11/03/24 15:02:00 EST, Dosing Weight Start Date: 12/27/24 Status: Ordered Quantity: 180.0 Unit: tab(s) Repeat number: 4 Start: 01-06-2024 carvedilol 12. 5 mg oral tablet Dose : 12.5 mg = 1 tab(s), Oral, BID, # 180 tab(s), 3 Refill(s), Pharmacy: [facility], 175.3, cm, 11/11/23 14:58:00 EDT, Height, kg, 11/11/23 14:58:00 EDT, Dosing Weight Start Date: 01/06/24 Status: Ordered Quantity: 180.0 Unit: tab(s) Repeat number: 4 Start: 10-08-2023 carvedilol 12. 5 mg oral tablet Dose : 12.5 mg = 1 tab(s), Oral, BID, # 180 tab(s), 0 Refill(s) Start Date: 10/08/23 Status: Ordered Start: 07-09-2023 take 1 tablet by margareth th twice daily at mealtime Carvedilol 3.125 mg tablet Active 3.125 mg PO TWICE A DAY July 09, 2023 1:00am must administer with a meal/food Start: 04-24-2023 take 1 tablet by margareth th in the morning, then take 0.5 tablet by mouth in the evening Coreg 12.5 mg oral tablet See Instructions, 1 Tablet in the Morning and 0.5 tablet in the PM, # 135 tab(s), 3 Refill(s), Pharmacy: [facility], 175, cm, 04/24/23 [...] PM, # 135 tab(s), 3 Refill(s), Pharmacy: [facility], 175, cm, 06/04/22 14:06:00 EDT, Height, kg, 06/04/22 14:06:00 EDT, Dosing Weight Start Date: 06/04/22 Status: Ordered cholecalciferol 1.25 mg oral capsule (4 sources) Vitamin D Start: 09-23-2024 take 1 capsule by mouth every week Cholecalciferol (Vitamin D3) 1,250 mcg (50,000 unit) capsule Active 1250 ug PO EVERY WEEK September 23, 2024 1:00am Start: 07-26-2024 End: 09-23-2024 take 1 capsule by mouth once daily Cholecalciferol (Vitamin D3) 25 mcg (1,000 unit) capsule Discontinued 25 ug PO daily July 26, 2024 1:00am September 23, 2024 4:37pm ferrous sulfate 325 mg delayed release oral [...] Daily, # 90 tab(s), 0 Refill(s), Pharmacy: [id number], Seasonal allergies Allergic conjunctivitis, 177.8, cm, 02/07/23 14:35:00 EDT, Height Start Date: 02/07/23 Status: Ordered furosemide 40 mg oral tablet (1 source) Loop Diuretic Start: 03-27-2025 take 1 tablet by mouth once daily Furosemide 40 mg Tablet Active 40 mg PO DAILY 30 2 March 27, 2025 12:00am hydrOXYzine hydrochloride 25 mg oral tablet (9 sources) Antihistamine Start: 03-24-2025 take 1 tablet by mouth four times daily Hydroxyzine Hcl 25 mg tablet Active 25 mg PO 4 TIMES DAILY March 24, 2025 12:00am Anxiety Start: 02-15-2025 hydrOXYzine hy drochloride 25 mg oral tablet Dose : 25 mg = 1 tab(s), Oral, QID, PRN as needed for anxiety, # 40 tab(s), 3 Refill(s), Pharmacy: [facility], 167.5, cm, 02/10/25 14:35:00 EDT, Height, kg, 02/10/25 14:35:00 EDT, Dosing Weight Start Date: 02/15/25 Status: Ordered Quantity: 40.0 Unit: tab(s) Repeat number: 4 Start: 10-08-2023 Vistaril 25 mg oral capsule Dose : 25 mg = 1 cap(s), Oral, QID, PRN as needed for anxiety, # 40 cap(s), 0 Refill(s), Pharmacy: [id number], 175.3, cm, 10/08/23 13:00:00 EST, Height, kg, 10/08/23 13:00:00 EST, Dosing Weight Start Date: 10/08/23 Status: Ordered lidocaine 0.05 mg/mg medicated patch (3 sources) Antiarrhythmic, Amide Local Anesthetic Start: 05-01-2024 End: 05-31-2024 Lidoderm 5% topical patch Apply 2 patch(es), Topical, qDay, remove patches after 12 hours, X 30 day(s), # 60 patch(es), 0 Refill(s), [id number] 167.6, cm, 04/26/24 13:56:00 EDT, Height, 84, kg, 04/26/24 13:56:00 EDT, Dosing Weight Start Date: 05/01/24 Stop Date: 05/31/24 Status: Ordered losartan potassium 100 mg oral tablet (20 sources) Angiotensin 2 Receptor Alejandro Start: 11-15-2024 End: 11-10-2025 losartan 100 mg oral tablet Dose : 100 mg = 1 tab(s), Oral, qDay, # 90 tab(s), 3 Refill(s), Pharmacy: [facility], 167.5, cm, 11/03/24 15:02:00 EST, Height, kg, 11/03/24 15:02:00 EST, Dosing Weight Start Date: 11/15/24 Stop Date: 11/10/25 Status: Ordered Quantity: 90.0 Unit: tab(s) Repeat number: 4 Start: 07-26-2024 take 4 tablets by [facility] once daily Losartan 25 mg tablet Active 100 mg PO DAILY July 26, 2024 9:46am Start: 11-11-2023 End: 11-05-2024 losartan 100 mg oral tablet Dose : 100 mg = 1 tab(s), Oral, qDay, # 90 tab(s), 3 Refill(s), Pharmacy: [facility], 175.3, cm, 10/21/23 15:04:00 EST, Height, kg, 10/21/23 15:04:00 EST, Dosing Weight Start Date: 11/11/23 Stop Date: 11/05/24 Status: Ordered Quantity: 90.0 Unit: tab(s) Repeat number: 4 Start: 09-25-2023 losartan 100 m g oral tablet Dose : 100 mg = 1 tab(s), Oral, qDay, # 30 tab(s), 0 Refill(s), Pharmacy: [facility], 170, cm, 09/25/23 14:04:00 EST, Height, kg, 09/25/23 14:04:00 EST, Dosing Weight Start Date: 09/25/23 Status: Ordered Start: 07-09-2023 End: 07-26-2024 take 1 tablet by mouth once daily Losartan 25 mg tablet Discontinued 25 mg PO DAILY July 09, 2023 1:00am July 26, 2024 9:49am Start: 02-17-2023 End: 02-12-2024 losartan 50 mg oral tablet D ose : 50 mg = 1 tab(s), Oral, qDay, # 90 tab(s), 3 Refill(s), Pharmacy: [facility], 177.8, cm, 02/07/23 14:35:00 EDT, Height, kg, 02/07/23 14:35:00 EDT, Dosing Weight Start Date: 02/17/23 Stop Date: 02/12/24 Status: Ordered Start: 12-26-2021 End: 12-21-2022 losartan 50 mg oral tablet D ose : 50 mg = 1 tab(s), Oral, qDay, # 90 tab(s), 3 Refill(s), Pharmacy: [facility], 175.5, cm, 09/20/21 14:05:00 EST, Height, kg, 09/20/21 14:05:00 EST, Dosing Weight Start Date: 12/26/21 Stop Date: 12/21/22 Status: Ordered melatonin 5 mg oral capsule (20 sources) Start: 07-26-2024 take 1 capsule by mouth at bedtime as needed Melatonin 5 mg capsule Active 5 mg PO AT BEDTIME NEEDED July 26, 2024 1:00am Sleep Start: 03-17-2019 melatonin 5 mg oral tablet [...] tablet (20 sources) Serotonin Reuptake Inhibitor Start: 09-09-2023 End: 09-24-2025 take 1 tablet by mouth once daily Paroxetine Hcl 40 mg tablet Active 40 mg PO daily July 26, 2024 1:00am Start: 06-04-2022 End: 05-30-2023 Paxil 40 mg oral tablet Dose : 40 mg = 1 tab(s), Oral, Daily, # 90 tab(s), 3 Refill(s), Pharmacy: [facility], 175, cm, 06/04/22 14:06:00 EDT, Height, kg, 06/04/22 14:06:00 EDT, Dosing Weight Start Date: 06/04/22 Stop Date: 05/30/23 Status: Ordered Start: 06-04-2021 Paxil 40 mg or al tablet Dose : 40 mg = 1 tab(s), Oral, Daily, In absence of PCP, # 90 tab(s), 3 Refill(s), Pharmacy: [facility], 177.8, cm, 02/20/21 13:44:00 EDT, Height, kg, 02/20/21 13:44:00 EDT, Dosing Weight Start Date: 06/04/21 Status: Ordered potassium chloride 20 meq extended release oral tablet (6 sources) Start: 03-27-2025 take 1 tablet by mouth once daily Potassium Chloride (K-Tab) 20 mEq tablet extended release Active 20 meq PO DAILY 30 0 March 27, 2025 12:00am Start: 03-10-2025 Potassium Chlo ride (Eqv-K-Tab) 10 mEq oral tablet, extended release Dose : 10 mEq = 1 tab(s), Oral, BID, # 60 tab(s), 11 Refill(s), Pharmacy: [facility], 167.6, cm, 03/09/25 [...] qpm, # 90 cap(s), 0 Refill(s), [id number] 167.6, cm, 04/26/24 13:56:00 EDT, Height, kg, 04/26/24 13:56:00 EDT, Dosing Weight Start Date: 05/01/24 Stop Date: 05/31/24 Status: Ordered predniSONE 20 mg oral tablet (1 source) Start: 02-27-2025 End: 03-02-2025 predniSONE 20 mg oral tablet Dose : 40 mg = 2 tab(s), Oral, qDayM, X 3 day(s), # 6 tab(s), 0 Refill(s), 03/02/25 8:00:00 AM EDT, Pharmacy: [facility], 167.6, cm, 02/22/25 [...] Ordered tamsulosin hydrochloride 0.4 mg oral capsule (17 sources) alpha-Adrenergic Alejandro Start: 02-25-2024 take 1 capsule by mouth once daily Tamsulosin (Flomax) 0.4 mg capsule Active 0.4 mg PO daily July 26, 2024 1:00am Start: 07-03-2020 Flomax 0.4 mg oral capsule Dose : 0.4 mg = 1 cap(s), Oral, qDayPC, # 30 cap(s), 1 Refill(s), [id number] 177.8, cm, 06/26/20 16:09:00 EDT, Height, kg, 06/26/20 16:09:00 EDT, Dosing Weight Start Date: 07/03/20 Status: Ordered terazosin 2 mg oral capsule (7 sources) alpha-Adrenergic Alejandro Start: 09-09-2023 teraz osin 2 mg oral capsule Dose : 2 mg = 1 cap(s), Oral, BID, # 180 cap(s), 3 Refill(s), Pharmacy: [facility], 175, cm, 09/09/23 14:33:00 EST, Height, kg, 09/09/23 14:33:00 EST, Dosing Weight Start Date: 09/09/23 Status: Ordered Start: 03-17-2023 terazosin 2 mg oral capsule Dose : 2 mg = 1 cap(s), Oral, BID, filling in lieu of pcp, # 90 cap(s), 0 Refill(s), Pharmacy: [facility], 177.8, cm, 02/07/23 14:35:00 EDT, Height, kg, 02/07/23 14:35:00 EDT, Dosing Weight Start Date: 03/17/23 Status: Ordered Start: 02-03-2023 terazosin 2 mg oral capsule Dose : 2 mg = 1 cap(s), Oral, BID, filling in lieu of pcp, # 90 cap(s), 0 Refill(s), Pharmacy: [facility], 175, cm, 01/08/23 13:11:00 EDT, Height, kg, 01/08/23 13:11:00 EDT, Dosing Weight Start Date: 02/03/23 Status: Ordered Start: 08-08-2022 terazosin 2 mg oral capsule Dose : 2 mg = 1 cap(s), Oral, BID, # 90 cap(s), 3 Refill(s), Pharmacy: [facility], 175, cm, 06/04/22 14:06:00 EDT, Height, kg, 06/04/22 14:06:00 EDT, Dosing Weight Start Date: 08/08/22 Status: Ordered Start: 01-10-2022 terazosin 2 mg oral capsule Dose : 2 mg = 1 cap(s), Oral, qHS, # 90 cap(s), 3 Refill(s), Pharmacy: [facility], 175, cm, 01/10/22 [...] day(s), # 30 mL, 1 Refill(s), Pharmacy: [id number], Allergic conjunctivitis, 177.8, cm, 02/07/23 14:35:00 EDT, Height Start Date: 02/10/23 Stop Date: 04/11/23 Status: Ordered vitamin b12 1 mg oral capsule (2 sources) Vitamin B12 Start: 07-26-2024 take 1 capsule by mouth once daily Cyanocobalamin (Vitamin B-12) 1,000 mcg capsule Active 1000 ug PO daily July 26, 2024 1:00am Vitamin B12 1000 mcg oral tablet (17 [...] qWeek, # 12 cap(s), 3 Refill(s), Pharmacy: [facility], 167.5, cm, 06/03/24 14:36:00 EDT, Height, kg, 06/03/24 14:36:00 EDT, Dosing Weight Start Date: 06/07/24 Status: Ordered Quantity: 12.0 Unit: cap(s) Repeat number: 4 Start: 06-07-2024 Vitamin D3 125 0 mcg (50,000 intl units) oral capsule Dose : 1,250 mcg = 1 cap(s), Oral, qWeek, # 12 cap(s), 3 Refill(s), Pharmacy: [facility], 167.5, cm, 06/03/24 14:36:00 EDT, Height, kg, 06/03/24 14:36:00 EDT, Dosing Weight Start Date: 06/07/24 Status: Ordered Completed/Discontinued Medications Medication Drug Class(es) Dates Sig (Normalized) Sig (Original) alendronic acid 10 mg oral tablet (6 sources) Bisphosphonate Start: 09-23-2024 End: 03-23-2025 take 1 tablet by mouth once daily in the morning Alendronate 10 mg tablet Discontinued 10 mg PO EVERY MORNING September 23, 2024 1:00am March 23, 2025 5:02pm Start: 08-04-2024 End: 07-06-2025 alendronate 70 mg oral table t Dose : 70 mg = 1 tab(s), Oral, qWeek, # 12 tab(s), 3 Refill(s), Pharmacy: [facility], 167.5, cm, 07/08/24 15:00:00 EST, Height, kg, 07/08/24 15:00:00 EST, Dosing Weight Start Date: 08/04/24 Stop Date: 07/06/25 Status: Ordered Quantity: 12.0 Unit: tab(s) Repeat number: 4 1 ml denosumab 60 mg/ml prefilled syringe (3 sources) RANK Ligand Inhibitor Start: 11-03-2024 Prolia 60 mg/mL subcutaneous solution Dose : 60 mg = 1 mL, Subcutaneous, q6mo, # 1 mL, 0 Refill(s) Start Date: 11/03/24 Status: Ordered Quantity: 1.0 Unit: mL Repeat number: 1 dexamethasone 6 mg oral tablet (3 sources) Corticosteroid Start: 07-09-2023 End: 03-23-2025 take 1 tablet by mouth once daily Dexamethasone 6 mg tablet Discontinued 6 mg PO DAILY 5 July 09, 2023 1:00am March 23, 2025 5:01pm FLUoxetine 10 mg oral capsule (3 sources) Serotonin Reuptake Inhibitor Start: 07-09-2023 End: 07-26-2024 take 1 capsule by mouth once daily Fluoxetine 10 mg capsule Discontinued 10 mg PO DAILY July 09, 2023 1:00am July 26, 2024 9:49am LORazepam 1 mg oral tablet (15 sources) Benzodiazepine Start: 01-21-2025 End: 01-24-2025 LORazepam 1 mg oral tablet Dose : 1 mg = 1 tab(s), Oral, qDay, PRN as needed for anxiety, in lieu of pcp, # 3 tab(s), 0 Refill(s), Pharmacy: [facility], Anxiety, 167.5, cm, 11/03/24 15:02:00 EST, Height, [...] 1 Refill(s), 10/04/24 3:14:00 PM EST, Pharmacy: [facility], Anxiety, 167.5, cm, 08/05/24 14:30:00 EST, Height, [...] anxiety, # 30 tab(s), 1 Refill(s), Pharmacy: [facility], Anxiety, 175, cm, 09/09/23 14:33:00 EST, Height, 89.3, kg, 09/09/23 14:33:00 EST, Dosing Weight Start Date: 09/09/23 Stop Date: 11/08/23 Status: Ordered Start: 09-12-2022 End: 11-11-2022 LORazepam 1 mg oral tablet D ose : 1 mg = 1 tab(s), Oral, qDay, PRN for anxiety, # 30 tab(s), 1 Refill(s), Pharmacy: [facility], Anxiety, 175, cm, 06/04/22 14:06:00 EDT, Height, 90.2, kg, 06/04/22 14:06:00 EDT, Dosing Weight Start Date: 09/12/22 Stop Date: 11/11/22 Status: Ordered Start: 06-04-2021 End: 11-01-2021 LORazepam 1 mg oral tablet D ose : 1 mg = 1 tab(s), Oral, qDay, PRN for anxiety, # 30 tab(s), 4 Refill(s), Pharmacy: [facility], Anxiety, 177.8, cm, 02/20/21 13:44:00 EDT, Height, 96.7, kg, 02/20/21 13:44:00 EDT, Dosing Weight Start Date: 10/4/21 Stop Date: 11/01/21 Status: Ordered valACYclovir 1000 [...] (15 sources) Urinary incontinence 10-15-2023 Chronic Hemorrhoids (3 sources) Hemorrhoids; Translations: [Unspecified hemorrhoids] 07-09-2023 Episodic Hyperplasia [...] deficiency, unspecified] Onset: 10-27-2024 06-07-2024 Chronic Osteoporosis (13 sources) Osteoporosis; Translations: [Age-related osteoporosis without current pathological fracture] Onset: 10-27-2024 06-15-2024 Chronic Other acquired deformities (1 source) Other secondary kyphosis, thoracolumbar region; Translations: [Other secondary kyphosis, thoracolumbar region] Onset: 03-27-2025 Chronic Other acquired deformities (2 sources) Acquired kyphosis; Translations: [Unspecified kyphosis, thoracolumbar region] 03-25-2025 Chronic Other connective tissue disease (2 sources) Recurrent falls ; Translations: [Repeated falls] Onset: 02-23-2025 Episodic Other connective tissue disease (1 source) Repeated falls; Translations: [Repeated falls] Onset: 02-22-2025 Episodic Other fractures (2 sources) Closed fracture lumbar vertebra, wedge ; Translations: [Wedge compression fracture of first lumbar vertebra, initial encounter for closed fracture] Onset: 04-23-2024 Episodic Other fractures (16 sources) Compression fracture of thoracic spine; Translations: [Wedge compression fracture of unspecified thoracic vertebra, initial encounter for closed fracture] 11-19-2023 Episodic Other fractures (1 source) Collapse of vertebra; Translations: [Collapsed vertebra, not elsewhere classified, site unspecified, initial encounter for fracture] Onset: 04-27-2024 Episodic Other fractures (11 sources) Burst fracture of lumbar vertebra 05-20-2024 Episodic Other fractures (1 source) Closed fracture lumbar vertebra, burst ; Translations: [Stable burst fracture of unspecified lumbar vertebra, initial encounter for closed fracture] Episodic Other fractures (2 sources) Wedge compression fracture of first lumbar vertebra, initial encounter for closed fracture; Translations: [Wedge compression fracture of first lumbar vertebra, initial encounter for closed fracture] Onset: 02-22-2025 Episodic Other fractures (1 source) Wedge compression fracture of T9-T10 vertebra, initial encounter for closed fracture; Translations: [Wedge compression fracture of T9-T10 vertebra, initial encounter for closed fracture] Onset: 03-27-2025 Episodic Other fractures (2 sources) Compression fracture of lumbar spine; Translations: [Wedge compression fracture of unspecified lumbar vertebra, initial encounter for closed fracture] 03-25-2025 Episodic Other hereditary and degenerative nervous system [...] Onset: 02-22-2025 Episodic Other nervous system disorders (1 source) Other chronic pain; Translations: [Other chronic pain] Onset: 03-27-2025 Chronic Other nervous system disorders (17 sources) Impairment [...] source) Edema of lower leg 03-10-2025 Episodic Residual codes; unclassified (1 source) Other specified postprocedural states; Translations: [Other specified postprocedural states] Onset: 03-27-2025 Episodic Residual codes; unclassified (2 sources) H/O Spinal surgery; Translations: [Other specified postprocedural states] 03-25-2025 Episodic Respiratory failure; insufficiency; arrest (adult) (3 sources) Acute respiratory failure; Translations: [Acute respiratory failure with hypoxia] Onset: 04-23-2024 Episodic Spondylosis; intervertebral disc disorders; other back problems (12 sources) Low back pain; Translations: [Exacerbation of backache] Onset: 03-27-2025 09-09-2023 Episodic Unclassified (20 sources) Patient encounter status 06-05-2022 Unclassified (2 sources) Pain of left shoulder region 09-25-2023 Unclassified (1 source) see to establish care for back pain Viral infection (4 sources) Herpes zoster without complication; Translations: [Zoster [...] involving the genitourinary system] Onset: 08-05-2024 Episodic Results Test Name Value Interpretation Reference Range Facility Absolute lymphocyte countOrd ered By: Katarina Fabian on 03-27-2025 Lymphocytes Auto (Unsp spec) [#/Vol] 1.03 10*3/uL 0.83-4.51 [facility] Absolute neutrophil countOrd ered By: Katarina Fabian on 03-27-2025 Neutrophils (Bld) [#/Vol] 5.7 10*3/uL 2.0-7.7 [facility] Anion gap in Serum or Plasma Ordered By: Katarina Fabian on 03-27-2025 Anion gap [Moles/Vol] 8 mmol/L 5-15 [facility] Automated lymphocyte count a s percentage of total leukocytesOrdered By: Katarina Fabian on 03-27-2025 Lymphocytes/100 WBC Auto (Unsp spec) 12.6 % Low 19-41 [facility] BUN/creatinine ratioOrdered By: Katarina Fabian on 03-27-2025 Urea nitrogen/Creatinine [Mass ratio] 26.9 mg/mg High 10- [facility] Basic Metabolic Profile (BMP )on 03-27-2025 BUN/CRE 26.9 RATIO High 10 [facility] Comment on above: Performed By: #### L 500.2500, L100.0100 #### [facility] [address] [place], [address] Calcium [Mass/Vol] 8.5 mg/dL Normal 7.6-11.0 [facility] Comment on above: Performed By: #### L 500.2500, L100.0100 #### [facility] [address] [place], [address] Chloride [Moles/Vol] 104 mmol/L Normal 98-108 [facility] Comment on above: Performed By: #### L 500.2500, L100.0100 #### [facility] [address] [place], [address] CO2 [Moles/Vol] 32.2 mmol/L High 21.0-32.0 [facility] Comment on above: Performed By: #### L 500.2500, L100.0100 #### [facility] [address] [place], [address] Creatinine [Mass/Vol] 0.67 mg/dL Low 0.70-1.20 [facility] Comment on above: Performed By: #### L 500.2500, L100.0100 #### [facility] [address] [place], [address] ECRCL 70.00 ml/min Normal 50-250 [facility] Comment on above: Performed By: #### L 500.2500, L100.0100 #### [facility] [address] [place], [address] GAP 8 Normal 5-15 [facility] Comment on above: Performed By: #### L 500.2500, L100.0100 #### [facility] [address] [place], [address] GFR/1.73 sq M.predicted among non-blacks MDRD (S/P/Bld) [Vol rate/Area] 95 mL/min/{1.73_m2} Normal >60 [facility] Comment on above: Result Comment: mL/m in/1.73m2 CKD-EPI Creatinine Equation (2020) Performed By: #### L 500.2500, L100.0100 #### [facility] [address] [place], [address] Glucose [Mass/Vol] 95 mg/dL Normal 70-99 [facility] Comment on above: Performed By: #### L 500.2500, L100.0100 #### [facility] [address] [place], [address] Potassium [Moles/Vol] 3.0 mmol/L Low 3.3-5.1 [facility] Comment on above: Performed By: #### L 500.2500, L100.0100 #### [facility] [address] [place], [address] Sodium [Moles/Vol] 145 mmol/L Normal 133-145 [facility] Comment on above: Performed By: #### L 500.2500, L100.0100 #### [facility] [address] [place], [address] Urea nitrogen [Mass/Vol] 18 mg/dL Normal 4-19 [facility] Comment on above: Performed By: #### L 500.2500, L100.0100 #### [facility] [address] [place], [address] Basophil percentageOrdered B y: Katarina Fabian on 03-27-2025 Basophils/100 WBC (Bld) 0.4 % 0-1 [facility] CBC W/Diff, Automatedon 03-02 Absolute Lymph 1.03 X10 3/uL Normal 0.83-4.51 [facility] Comment on above: Performed By: #### L 500.2500, L100.0100 #### [facility] [address] [place], [address] Absolute Neut 5.7 X10 3/uL Normal 2.0-7.7 [facility] Comment on above: Performed By: #### L 500.2500, L100.0100 #### [facility] [address] [place], [address] Basophils/100 WBC (Bld) 0.4 % Normal 0-1 [facility] Comment on above: Performed By: #### L 500.2500, L100.0100 #### [facility] [address] [place], [address] Eosinophils/100 WBC (Bld) 5.7 % High 0-5 [facility] Comment on above: Performed By: #### L 500.2500, L100.0100 #### [facility] [address] [place], [address] Erythrocyte distribution width (RBC) [Ratio] 13.4 % Normal 11.6-14.6 [facility] Comment on above: Performed By: #### L 500.2500, L100.0100 #### [facility] [address] [place], [address] Hematocrit (Bld) [Volume fraction] 33.8 % Low 40-54 [facility] Comment on above: Performed By: #### L 500.2500, L100.0100 #### [facility] [address] [place], [address] Hemoglobin (Bld) [Mass/Vol] 11.5 g/dL Low 13.0-16.5 [facility] Comment on above: Performed By: #### L 500.2500, L100.0100 #### [facility] [address] [place], [address] IG% 0.500 Normal 0.0-0.9 [facility] Comment on above: Result Comment: IG% - Immature Granulocytes (promyelocytes, myelocytes and metamyelocytes) > 1% indicates that a LEFT SHIFT is Present. Performed By: #### L 500.2500, L100.0100 #### [facility] [address] [place], [address] Lymphocytes/100 WBC (Bld) 12.6 % Low 19-41 [facility] Comment on above: Performed By: #### L 500.2500, L100.0100 #### [facility] [address] [place], [address] MCH (RBC) [Entitic mass] 32.1 pg High 27.0-32.0 [facility] Comment on above: Performed By: #### L 500.2500, L100.0100 #### [facility] [address] [place], [address] MCHC (RBC) [Mass/Vol] 34.0 g/dL Normal 32-36 [facility] Comment on above: Performed By: #### L 500.2500, L100.0100 #### [facility] [address] [place], [address] MCV (RBC) [Entitic vol] 94.4 fL High 80-94 [facility] Comment on above: Performed By: #### L 500.2500, L100.0100 #### [facility] [address] [place], [address] Monocytes/100 WBC (Bld) 11.8 % High 0-10 [facility] Comment on above: Performed By: #### L 500.2500, L100.0100 #### [facility] [address] [place], [address] Neutrophils/100 WBC (Bld) 69.0 % Normal 47-70 [facility] Comment on above: Performed By: #### L 500.2500, L100.0100 #### [facility] [address] [place], [address] Nucleated RBC (Bld) [#/Vol] 0 10*3/uL Normal 0-5 [facility] Comment on above: Performed By: #### L 500.2500, L100.0100 #### [facility] [address] [place], [address] Platelet mean volume (Bld) [Entitic vol] 9.1 fL Normal 6.2-12.0 [facility] Comment on above: Performed By: #### L 500.2500, L100.0100 #### [facility] [address] [place], [address] Platelets (Bld) [#/Vol] 211 10*3/uL Normal 150-450 [facility] Comment on above: Performed By: #### L 500.2500, L100.0100 #### [facility] [address] [place], [address] RBC (Bld) [#/Vol] 3.58 10*6/uL Low 4.6-6.2 [facility] Comment on above: Performed By: #### L 500.2500, L100.0100 #### [facility] [address] [place], [address] RDW SD 45.9 fl High 35.1-43.9 [facility] Comment on above: Performed By: #### L 500.2500, L100.0100 #### [facility] [address] [place], [address] WBC (Bld) [#/Vol] 8.2 10*3/uL Normal 4.4-11.0 [facility] Comment on above: Performed By: #### L 500.2500, L100.0100 #### [facility] [address] [place], [address] Carbon dioxide, total [Moles /volume] in Central venous bloodOrdered By: Katarina Fabian on 03-27-2025 CO2 [Moles/Vol] 32.2 mmol/L High 21.0-32.0 [facility] Chloride assayOrdered By: Smiley Fabian on 03-27-2025 Chloride [Moles/Vol] 104 mmol/L 98-108 [facility] Eosinophil percentageOrdered By: Katarina Fabian on 03-27-2025 Eosinophils/100 WBC (Bld) 5.7 % High 0-5 [facility] Erythrocyte distribution wid th ratioOrdered By: Katarina Fabian on 03-27-2025 Erythrocyte distribution width (RBC) [Ratio] 13.4 % 11.6-14.6 [facility] Erythrocyte distribution wid th standard deviationOrdered By: Katarina Fabian on 03-27-2025 Erythrocyte distribution width (RBC) [Ratio] 45.9 fl High 35.1-43.9 [facility] Glomerular filtration rate ( GFR) estimation/1.73 sq m using serum, plasma, or whole bOrdered By: Katarina Fabian on 03-27-2025 GFR/1.73 sq M.predicted among non-blacks MDRD (S/P/Bld) [Vol rate/Area] 95 mL/min/{1.73_m2} >60 [facility] Comment on above: mL/min/1.73m2 CKD-EP I Creatinine Equation (2020) Hematocrit Auto (Bld) [Volum e fraction]Ordered By: Katarina Fabian on 03-27-2025 Hematocrit (Bld) [Volume fraction] 33.8 % Low 40-54 [facility] Hemoglobin measurementOrdere d By: Katarina Fabian on 03-27-2025 Hemoglobin (Bld) [Mass/Vol] 11.5 g/dL Low 13.0-16.5 [facility] Immature granulocytes/100 WB C Auto (Bld)Ordered By: Katarina Fabian 03-27-2025 Immature granulocytes/100 WBC (Bld) 0.500 % 0.0-0.9 [facility] Comment on above: IG% - Immature Granu locytes (promyelocytes, myelocytes and metamyelocytes) > 1% indicates that a LEFT SHIFT is Present. MCV (mean corpuscular volume ) determinationOrdered By: Katarina Fabian on 03-27-2025 MCV (RBC) [Entitic vol] 94.4 fL High 80-94 [facility] Mean corpuscular hemoglobin (MCH) determinationOrdered By: Katarina Fabian 03-27-2025 MCH (RBC) [Entitic mass] 32.1 pg High 27.0-32.0 [facility] Mean corpuscular hemoglobin concentration (MCHC) determinationOrdered By: Katarina Fabian 03-27-2025 MCHC (RBC) [Mass/Vol] 34.0 g/dL 32-36 [facility] Mean platelet volume determi nationOrdered By: Katarina Fabian on 03-27-2025 Platelet mean volume (Bld) [Entitic vol] 9.1 fL 6.2-12.0 [facility] Monocyte percentageOrdered B y: Katarina Fabian on 03-27-2025 Monocytes/100 WBC (Bld) 11.8 % High 0-10 [facility] Neutrophil percentageOrdered By: Katarina Fabian on 03-27-2025 Neutrophils/100 WBC (Bld) 69.0 % 47-70 [facility] Nucleated red blood cell per centageOrdered By: Katarina Fabian on 03-27-2025 Nucleated RBC/100 WBC (Bld) [Ratio] 0 % 0-5 [facility] Platelet countOrdered By: Smiley Fabian on 03-27-2025 Platelets (Bld) [#/Vol] 211 10*3/uL 150-450 [facility] Potassium measurement (mass/ volume)Ordered By: Katarina Fabian on 03-27-2025 Potassium (Unsp spec) [Mass/Vol] 3.0 mmol/L Low 3.3-5.1 [facility] RBC Auto (Bld) [#/Vol]Ordere d By: Katarina Fabian on 03-27-2025 RBC (Bld) [#/Vol] 3.58 10*6/uL Low 4.6-6.2 [facility] Serum creatinine measurement (mass/volume)Ordered By: Katarina Fabian on 03-27-2025 Creatinine [Mass/Vol] 0.67 mg/dL Low 0.70-1.20 [facility] Serum glucose measurement (m ass/volume)Ordered By: Katarina Fabian on 03-27-2025 Glucose [Mass/Vol] 95 mg/dL 70-99 [facility] Serum or plasma calcium jovita urement (mass/volume)Ordered By: Katarina Fabian on 03-27-2025 Calcium [Mass/Vol] 8.5 mg/dL 7.6-11.0 [facility] Serum or plasma urea nitroge n measurement (mass/volume)Ordered By: Katarina Fabian on 03-27-2025 Urea nitrogen [Mass/Vol] 18 mg/dL 4-19 [facility] Sodium levelOrdered By: Katarina Fabian on 03-27-2025 Sodium [Moles/Vol] 145 mmol/L 133-145 [facility] White blood cell (WBC) count Ordered By: Katarina Fabian on 03-27-2025 WBC (Bld) [#/Vol] 8.2 10*3/uL 4.4-11.0 [facility] Basic Metabolic Profile (BMP )on 03-26-2025 BUN/CRE 21.8 RATIO High 10-20 [facility] Comment on above: Performed By: #### L 100.0100, L500.2500 #### [facility] [address] [place], [address] Calcium [Mass/Vol] 8.5 mg/dL Normal 7.6-11.0 [facility] Comment on above: Performed By: #### L 100.0100, L500.2500 #### [facility] [address] [place], [address] Chloride [Moles/Vol] 103 mmol/L Normal 98-108 [facility] Comment on above: Performed By: #### L 100.0100, L500.2500 #### [facility] [address] [place], [address] CO2 [Moles/Vol] 32.6 mmol/L High 21.0-32.0 [facility] Comment on above: Result Comment: QC O K Performed By: #### L 100.0100, L500.2500 #### [facility] [address] [place], [address] Creatinine [Mass/Vol] 0.79 mg/dL Normal 0.70-1.20 [facility] Comment on above: Performed By: #### L 100.0100, L500.2500 #### [facility] [address] [place], [address] ECRCL 70.00 ml/min Normal 50-250 [facility] Comment on above: Performed By: #### L 100.0100, L500.2500 #### [facility] [address] [place], [address] GAP 8 Normal 5-15 [facility] Comment on above: Performed By: #### L 100.0100, L500.2500 #### [facility] [address] [place], [address] GFR/1.73 sq M.predicted among non-blacks MDRD (S/P/Bld) [Vol rate/Area] 91 mL/min/{1.73_m2} Normal >60 [facility] Comment on above: Result Comment: mL/m in/1.73m2 CKD-EPI Creatinine Equation (2020) Performed By: #### L 100.0100, L500.2500 #### [facility] [address] [place], [address] Glucose [Mass/Vol] 96 mg/dL Normal 70-99 [facility] Comment on above: Performed By: #### L 100.0100, L500.2500 #### [facility] [address] [place], [address] Potassium [Moles/Vol] 3.3 mmol/L Normal 3.3-5.1 [facility] Comment on above: Performed By: #### L 100.0100, L500.2500 #### [facility] [address] [place], [address] Sodium [Moles/Vol] 144 mmol/L Normal 133-145 [facility] Comment on above: Performed By: #### L 100.0100, L500.2500 #### [facility] [address] [place], [address] Urea nitrogen [Mass/Vol] 17 mg/dL Normal 4-19 [facility] Comment on above: Performed By: #### L 100.0100, L500.2500 #### [facility] [address] [place], [address] CBC W/Diff, Automatedon 07-2 -2024 Absolute Lymph 1.01 X10 3/uL Normal 0.83-4.51 [facility] Comment on above: Performed By: #### L 100.0100, L500.2500 #### [facility] [address] [place], [address] Absolute Neut 4.6 X10 3/uL Normal 2.0-7.7 [facility] Comment on above: Performed By: #### L 100.0100, L500.2500 #### [facility] [address] [place], [address] Basophils/100 WBC (Bld) 0.4 % Normal 0-1 [facility] Comment on above: Performed By: #### L 100.0100, L500.2500 #### [facility] [address] [place], [address] Eosinophils/100 WBC (Bld) 7.5 % High 0-5 [facility] Comment on above: Performed By: #### L 100.0100, L500.2500 #### [facility] [address] [place], [address] Erythrocyte distribution width (RBC) [Ratio] 13.2 % Normal 11.6-14.6 [facility] Comment on above: Performed By: #### L 100.0100, L500.2500 #### [facility] [address] [place], [address] Hematocrit (Bld) [Volume fraction] 34.4 % Low 40-54 [facility] Comment on above: Performed By: #### L 100.0100, L500.2500 #### [facility] [address] [place], [address] Hemoglobin (Bld) [Mass/Vol] 11.6 g/dL Low 13.0-16.5 [facility] Comment on above: Performed By: #### L 100.0100, L500.2500 #### [facility] [address] [place], [address] IG% 0.400 Normal 0.0-0.9 [facility] Comment on above: Result Comment: IG% - Immature Granulocytes (promyelocytes, myelocytes and metamyelocytes) > 1% indicates that a LEFT SHIFT is Present. Performed By: #### L 100.0100, L500.2500 #### [facility] [address] [place], [address] Lymphocytes/100 WBC (Bld) 14.1 % Low 19-41 [facility] Comment on above: Performed By: #### L 100.0100, L500.2500 #### [facility] [address] [place], [address] MCH (RBC) [Entitic mass] 32.1 pg High 27.0-32.0 [facility] Comment on above: Performed By: #### L 100.0100, L500.2500 #### [facility] [address] [place], [address] MCHC (RBC) [Mass/Vol] 33.7 g/dL Normal 32-36 [facility] Comment on above: Performed By: #### L 100.0100, L500.2500 #### [facility] [address] [place], [address] MCV (RBC) [Entitic vol] 95.3 fL High 80-94 [facility] Comment on above: Performed By: #### L 100.0100, L500.2500 #### [facility] [address] [place], [address] Monocytes/100 WBC (Bld) 13.0 % High 0-10 [facility] Comment on above: Performed By: #### L 100.0100, L500.2500 #### [facility] [address] [place], [address] Neutrophils/100 WBC (Bld) 64.6 % Normal 47-70 [facility] Comment on above: Performed By: #### L 100.0100, L500.2500 #### [facility] [address] [place], [address] Nucleated RBC (Bld) [#/Vol] 0.3 10*3/uL Normal 0-5 [facility] Comment on above: Performed By: #### L 100.0100, L500.2500 #### [facility] [address] [place], [address] Platelet mean volume (Bld) [Entitic vol] 9.1 fL Normal 6.2-12.0 [facility] Comment on above: Performed By: #### L 100.0100, L500.2500 #### [facility] [address] [place], [address] Platelets (Bld) [#/Vol] 210 10*3/uL Normal 150-450 [facility] Comment on above: Performed By: #### L 100.0100, L500.2500 #### [facility] [address] [place], [address] RBC (Bld) [#/Vol] 3.61 10*6/uL Low 4.6-6.2 [facility] Comment on above: Performed By: #### L 100.0100, L500.2500 #### [facility] [address] [place], [address] RDW SD 46.3 fl High 35.1-43.9 [facility] Comment on above: Performed By: #### L 100.0100, L500.2500 #### [facility] [address] [place], [address] WBC (Bld) [#/Vol] 7.2 10*3/uL Normal 4.4-11.0 [facility] Comment on above: Performed By: #### L 100.0100, L500.2500 #### [facility] [address] [place], [place], [id number] Chest 1 View (Portable)on Chest 1 View (Portable) [facility] [address] [place], [place] [address] Chest 1 View (Portable) MR#: [id number] Acct: [id number] Name: NANCY SY Rep #: [id number] : 1945 M 80 From: Izaiah Baptiste MD PCP: LOIS Resendiz Status: ADM IN Study: Chest 1 View (Portable) Date of Exam: 03/26/25 Exam# [id number] Ordering Dr: Katarina Fabian MD EXAM: XR Chest, 1 View CLINICAL INDICATION: 2 L NC REQUIREMENT TECHNIQUE: Frontal view of the chest. COMPARISON: No relevant prior studies available. FINDINGS: LUNGS AND PLEURAL SPACES: See below. HEART: Cardiomegaly with mild congestion. MEDIASTINUM: Unremarkable. Normal mediastinal contour. BONES/JOINTS: Unremarkable. No acute fracture. RAD/Chest 1 View (Portable) IMPRESSION: Cardiomegaly with mild congestion. Reading Location: [facility] CC: HOUSEKEEPING ROOM INSPECTOR-C Katherine Brand; Dr. Katarina Fabian MD Lard Renderer: Signed Normal [facility] Basic Metabolic Profile (BMP )on 03-25-2025 BUN/CRE 22.6 RATIO High 10-20 [facility] Comment on above: Performed By: #### L 100.0100, L500.2500 #### [facility] [address] [place], [place], [id number] Calcium [Mass/Vol] 8.1 mg/dL Normal 7.6-11.0 [facility] Comment on above: Performed By: #### L 100.0100, L500.2500 #### [facility] [address] [place], [address] Chloride [Moles/Vol] 104 mmol/L Normal 98-108 [facility] Comment on above: Performed By: #### L 100.0100, L500.2500 #### [facility] [address] [place], [address] CO2 [Moles/Vol] 30.4 mmol/L Normal 21.0-32.0 [facility] Comment on above: Performed By: #### L 100.0100, L500.2500 #### [facility] [address] [place], [address] Creatinine [Mass/Vol] 0.75 mg/dL Normal 0.70-1.20 [facility] Comment on above: Performed By: #### L 100.0100, L500.2500 #### [facility] [address] [place], [address] ECRCL 70.00 ml/min Normal 50-250 [facility] Comment on above: Performed By: #### L 100.0100, L500.2500 #### [facility] [address] [place], [address] GAP 10 Normal 5-15 [facility] Comment on above: Performed By: #### L 100.0100, L500.2500 #### [facility] [address] [place], [address] GFR/1.73 sq M.predicted among non-blacks MDRD (S/P/Bld) [Vol rate/Area] 92 mL/min/{1.73_m2} Normal >60 [facility] [facility] Comment on above: Result Comment: mL/m in/1.73m2 CKD-EPI Creatinine Equation (2020) Performed By: #### L 100.0100, L500.2500 #### [facility] [address] [place], [address] Glucose [Mass/Vol] 94 mg/dL Normal 70-99 [facility] Comment on above: Performed By: #### L 100.0100, L500.2500 #### [facility] [address] [place], [address] Potassium [Moles/Vol] 3.1 mmol/L Low 3.3-5.1 [facility] Comment on above: Performed By: #### L 100.0100, L500.2500 #### [facility] [address] [place], [address] Sodium [Moles/Vol] 145 mmol/L Normal 133-145 [facility] Comment on above: Performed By: #### L 100.0100, L500.2500 #### [facility] [address] [place], [address] Urea nitrogen [Mass/Vol] 17 mg/dL Normal 4-19 [facility] Comment on above: Performed By: #### L 100.0100, L500.2500 #### [facility] [address] [place], [address] CBC W/Diff, Automatedon 07-2 -2024 Absolute Lymph 1.31 X10 3/uL Normal 0.83-4.51 [facility] Comment on above: Performed By: #### L 100.0100, L500.2500 #### [facility] [address] [place], [address] Absolute Neut 4.4 X10 3/uL Normal 2.0-7.7 [facility] Comment on above: Performed By: #### L 100.0100, L500.2500 #### [facility] [address] [place], [address] Basophils/100 WBC (Bld) 0.4 % Normal 0-1 [facility] Comment on above: Performed By: #### L 100.0100, L500.2500 #### [facility] [address] [place], [address] Eosinophils/100 WBC (Bld) 6.6 % High 0-5 [facility] Comment on above: Performed By: #### L 100.0100, L500.2500 #### [facility] [address] [place], [address] Erythrocyte distribution width (RBC) [Ratio] 13.4 % Normal 11.6-14.6 [facility] Comment on above: Performed By: #### L 100.0100, L500.2500 #### [facility] [address] [place], [address] Hematocrit (Bld) [Volume fraction] 34.4 % Low 40-54 [facility] Comment on above: Performed By: #### L 100.0100, L500.2500 #### [facility] [address] [place], [address] Hemoglobin (Bld) [Mass/Vol] 11.5 g/dL Low 13.0-16.5 [facility] Comment on above: Performed By: #### L 100.0100, L500.2500 #### [facility] [address] [place], [address] IG% 0.300 Normal 0.0-0.9 [facility] Comment on above: Result Comment: IG% - Immature Granulocytes (promyelocytes, myelocytes and metamyelocytes) > 1% indicates that a LEFT SHIFT is Present. Performed By: #### L 100.0100, L500.2500 #### [facility] [address] [place], [address] Lymphocytes/100 WBC (Bld) 18.3 % Low 19-41 [facility] Comment on above: Performed By: #### L 100.0100, L500.2500 #### [facility] [address] [place], [address] MCH (RBC) [Entitic mass] 31.9 pg Normal 27.0-32.0 [facility] Comment on above: Performed By: #### L 100.0100, L500.2500 #### [facility] [address] [place], [address] MCHC (RBC) [Mass/Vol] 33.4 g/dL Normal 32-36 [facility] Comment on above: Performed By: #### L 100.0100, L500.2500 #### [facility] [address] [place], [address] MCV (RBC) [Entitic vol] 95.3 fL High 80-94 [facility] Comment on above: Performed By: #### L 100.0100, L500.2500 #### [facility] [address] [place], [address] Monocytes/100 WBC (Bld) 13.5 % High 0-10 [facility] Comment on above: Performed By: #### L 100.0100, L500.2500 #### [facility] [address] [place], [address] Neutrophils/100 WBC (Bld) 60.9 % Normal 47-70 [facility] Comment on above: Performed By: #### L 100.0100, L500.2500 #### [facility] [address] [place], [address] Nucleated RBC (Bld) [#/Vol] 0 10*3/uL Normal 0-5 [facility] Comment on above: Performed By: #### L 100.0100, L500.2500 #### [facility] [address] [place], [address] Platelet mean volume (Bld) [Entitic vol] 9.2 fL Normal 6.2-12.0 [facility] Comment on above: Performed By: #### L 100.0100, L500.2500 #### [facility] [address] [place], [address] Platelets (Bld) [#/Vol] 208 10*3/uL Normal 150-450 [facility] Comment on above: Performed By: #### L 100.0100, L500.2500 #### [facility] [address] [place], [address] RBC (Bld) [#/Vol] 3.61 10*6/uL Low 4.6-6.2 [facility] Comment on above: Performed By: #### L 100.0100, L500.2500 #### [facility] [address] [place], [address] RDW SD 47.3 fl High 35.1-43.9 [facility] Comment on above: Performed By: #### L 100.0100, L500.2500 #### [facility] [address] [place], [address] WBC (Bld) [#/Vol] 7.2 10*3/uL Normal 4.4-11.0 [facility] Comment on above: Performed By: #### L 100.0100, L500.2500 #### [facility] [address] [place], [address] Consultation - Orthopedicson 03-25-2025 Consultation - Orthopedics [facility] Medical Records Department [address] [place] [address] Consultation - Orthopedics 03/25/25 1307 MR#: [id number] Acct: [id number] Name: NANCY SY Rep #: [id number] : 1945 80 From: Zandra Freire MD PCP: LOIS Resendiz Status:ADM IN Location: [place] [address] HPI Consult Data Date of Consult: 03/25/25 HPI Narrative HPI Narrative: NANCY SY, is a 80 M who presents with back pain. Patient was admitted on Friday night because of hypoxia and pedal edema. Patient is a poor historian. Most of the history was taken through patient's on speaker phone. Patient apparently had multiple falls over the last 2 to 3 years. He initially underwent kyphoplasty by Dr. Pate or Dr. Torres, patient is unsure. He had good improvement of his pain from this. He has had multiple falls since this kyphoplasty procedure which was based on imaging likely at T11 level. He however had more recent falls about a month ago which caused him to have worsening back pain. He denies any mid back or upper back pain at this time but says that she has significant pain throughout the back most severe in the beltline region in the lower lumbar region. He is on nasal oxygen. He has been evaluated for cardiac and pulmonary reasons for hypoxia and pedal edema. He says that the pain has been constant since the fall about a month ago. He says that he has worked with physical therapy here in the hospital and has been able to walk with the help of a walker. Past medical history: Chronic macrocytic anemia, CKD stage II per GFR trending, OA, Allergic rhinitis, Former tobacco use [facility] Medical History CKD (chronic kidney disease), stage II Former tobacco use BPH (benign prostatic hyperplasia) HLD (hyperlipidemia) Chronic anemia Pancreatitis Osteoporosis Osteopenia Kidney stones Arthritis Allergies Hemorrhoids Hypertension Home Medications ???Medication ???Instructions ???Recorded ???Last Taken ???Type carvedilol 3.125 mg tablet 3.125 mg PO BID 07/09/23 03/22/25 History amlodipine 10 mg tablet 10 mg PO QDAY 07/26/24 03/22/25 Hi story buspirone 15 mg tablet 15 mg PO BID 07/26/24 03/22/25 His tory calcium carbonate 1,000 mg PO QDAY 07/26/24 03/22/25 History cyanocobalamin (vitamin B-12) 1,000 mcg PO QDAY 07/26/24 5 History 1,000 mcg capsule losartan 25 mg tablet 100 mg PO DAILY 07/26/24 03/22/25 History melatonin 5 mg capsule 5 mg PO QHS PRN Sleep 07/26/24 History paroxetine HCl 40 mg tablet 40 mg PO QDAY 07/26/24 03/22/25 Hi story tamsulosin 0.4 mg capsule (Flomax) 0.4 mg PO QDAY 07/26/24 03/22/25 History cholecalciferol (vitamin D3) 1,250 1,250 mcg PO QWEEK 09/23/24 Unkn own History mcg (50,000 unit) capsule acetaminophen 325 mg tablet 650 mg PO Q6H PRN pain 03/23/25 History (Tylenol) hydroxyzine HCl 25 mg tablet 25 mg PO 4X/DAY Anxiety 03/24/25 U nknown History Allergy/AdvReac Type Severity Reaction Status Date / Time No Known Allergies Allergy Verified 03/23/25 16:56 Family History Father Alcoholism Brother Depression Suicide attempt Grandmother Parkinson disease Sister Osteoporosis Mother Non-alcoholic cirrhosis Surgical History S/P tonsillectomy S/P appendectomy Hx of cholecystectomy Social History household members: spouse Smoking Status: Former smoker how long ago did patient quit smoking: Quit pipe smoking 15 yrs prior, smoked since 13 20 refill/day. alcohol intake: never substance use type: does not use Vital Signs Vital Signs Vital Signs: 03/24/25 17:45 03/24/25 21:47 03/24/25 22:00 Temperature 97.7 F L 97.7 F L Temperature Source Oral Temporal Pulse Rate 64 91 Respiratory Rate 16 18 Respiratory Effort Normal Non-Labored Respiratory Depth Normal Respiratory Pattern Normal Blood Pressure 135/89 H 117/64 Blood Pressure Mean 104 81 Blood Pressure Source Monitor Monitor Blood Pressure Position Semi-Fowlers Semi-Fowlers Blood Pressure Location Left Arm Right Arm Pulse Ox 93 92 Oxygen Delivery Method Room Air Room Air Room Air Oxygen Flow Rate (L/min) 03/25/25 03:52 03/25/25 04:27 03/25/25 07:44 Temperature 97.9 F Temperature Source Temporal Pulse Rate 90 Respiratory Rate 18 Respiratory Effort Normal Non-Labored Respiratory Depth Normal Respiratory Pattern Normal Blood Pressure 130/71 H Blood Pressure Mean 90 Blood Pressure Source Monitor Blood Pressure Position Semi-Fowlers Blood Pressure Location Right Arm Pulse Ox 95 Oxygen Delivery Metho (more content not included)... Normal [facility] Electrocardiogram reportOrde red By: Shady Loving on 03-25-2025 EKG study [facility] Cardiovascular Services [address] [place] [address] 12 Lead EKG 03/23/25 1734 MR#: [id number] Acct: [id number] Name: NANCY SY Rep #:[id number] : 1945 80 From: Shady wang MD Attending Dr: Dr. Katarina Fabian MD Status: ADM IN Ordering Dr: Marco Camacho DO Date: 03/23/25 Location: [facility] Sex: M C Admitted: 03/23/25 Test Reason : GENERAL Blood Pressure : */* mmHG Vent. Rate : 99 BPM Atrial Rate : 99 BPM P-R Int : 136 ms QRS Dur : 78 ms QT Int : 366 ms P-R-T Axes : 51 -9 -16 degrees QTcB Int : 469 ms Sinus rhythm with occasional Premature ventricular complexes Otherwise normal ECG Confirmed by INDER GOODSON, FRANNY ([id number]), editor managing director BEVERLEY ZAPATA ([id number]) on 03/25/2025 1:10:30 PM Referred By: Confirmed By: FRANNY LOVING MD 03/25/25 1310 Date _ Shady Loving MD CC: LOIS Brand; Dr. Katarina Fabian MD; Dr. Marco Camacho DO ~ Signed [facility] Work Phone: Magnetic resonance imaging r eportOrdered By: Abraham Marlow on 03-25-2025 Study report [facility] Imaging Services [address] [place] [address] Spine Thoracic (Routine) MR#: [id number] Acct: [id number] Name: NANCY SY Rep #: [id number] : 1945 M 80 From: Eloise Marlow MD PCP: NOAH ResendizC Status: ADM I N Study:Spine Thoracic (Routine) Date of Exam: 03/24/25 Exam# [id number] Ordering Dr: Kimberlee Pham MD PROCEDURE: SPINE THORACIC (ROUTINE) 03/24/2025 REASON FOR EXAM: THORACIC SPINE ACUTE FX TECHNIQUE: SPINE THORACIC (ROUTINE) Multiplanar and multisequence images were obtained. CONTRAST: None COMPARISON: March 23, 2025 FINDINGS: Vertebrae: Grade 3 biconcave compression fracture of T9 vertebral body with somefluid signal in the central portion of the body. Review of prior CT also showed vacuum disc on either side of the vertebral body and in the vertebral body itself. This is likely chronic. Retropulsion of the posterior aspect of the mid body 5 mm. Grade 3 T11 biconcave and anterior wedge compression fracture. Some low signal in the vertebral body from augmentation is seen. Very mild T2 prolongation on the inversion recovery images at the mid and anterior aspect of the vertebral body suggesting chronic fracture. There is some retropulsion of the posterior inferior margin of the proximally 3.8 mm. Grade 3 biconcave compression fracture of L1 vertebral body. Moderate bone marrow edema is seen involving the vertebral body. Retropulsion of the posterior superior margin of the vertebral body of the proximally 7 mm. Additionally, there is protrusion of the anterior aspect of the vertebral body a proximally 8 mm. Alignment: Straightening of the normal thoracic kyphosis. Acute kyphosis lower thoracic spine related to fractures. Spinal Cord: There is effacement of the anterior thecal sac from the fracture [id number] body in the retropulsed portion of the body. This contacts the cord but is not associated with any abnormal cord signal. Exit foramina at T9/10 are severely narrowed. Retropulsion of T11 creates an extradural defect that approaches the cord but does not deform the cord. No abnormal cord signal seen there. images: MRI/Spine Thoracic (Routine) IMPRESSION: 1. Straightening of the upper thoracic spine. Acute kyphosis lower thoracic spine related to multiple fractures. 2. There is contact of the spinal cord by the T9 vertebral body with no abnormal signal seen. 3. Severe exit foraminal narrowing T9/10. Correlate with radiculopathy at T9. Reading Location: [id number] CC: HOUSEKEEPING ROOM INSPECTORLeighann Brand; Dr. Merry Pham MD ~ Lard Renderer: Signed [facility] Study report [facility] Imaging Services [address] [place], [place] [address] Spine Lumbar (Routine) MR#: [id number] Acct: [id number] Name: NANCY SY Rep #: [id number] : 1945 M 80 From: Eloise Marlow MD PCP: LOIS Resendiz Status: ADM I N Study:Spine Lumbar (Routine) Date of Exam: 03/24/25 Exam# [id number] Ordering Dr: Kimberlee Pham MD PROCEDURE: SPINE LUMBAR (ROUTINE) 03/24/2025 REASON FOR EXAM: L1 VERTEBRAL BODY FX, SPINAL CANAL NARROWING TECHNIQUE: SPINE LUMBAR (ROUTINE) COMPARISON: November 09, 2024 FINDINGS: Vertebrae: Grade 3 T11 biconcave and anterior wedge compression fracture. Some low signal in the vertebral body from augmentation is seen. Very mild T2 prolongation on the inversion recovery images at the mid and anterior aspect of the vertebral body suggesting chronic fracture. There is some retropulsion of the posterior inferior margin of the proximally 3.8 mm. Grade 3 biconcave compression fracture of L1 vertebral body. Moderate bone marrow edema is seen involving the vertebral body. Retropulsion of the posterior superior margin of the vertebral body of the proximally 7 mm. Additionally, there is protrusion of the anterior aspect of the vertebral body a proximally 8 mm. No abnormal signal in the other vertebral bodies. No fluid signal in the intervertebral discs. No paraspinal soft tissue mass is seen. Alignment: Acute kyphosis at T12. Lumbar lordosis is otherwise preserved. Conus Medullaris: Terminates at L1/2. There is contact of the distal spinal cord by the retropulsed L1 vertebral body. This is not imaged in the axial plane. No abnormal signal in the sagittal plane. T12-L1: In the sagittal plane, there is no significant disc protrusion. Exit foramina are narrowed but there is fat around the exiting nerve roots. L1-2: Minimal, diffuse disc bulge slightly greater at the level of the foramen and far left lateral. Moderate thickening of the ligamentum flavum. No central stenosis. However, there is exit foraminal narrowing on the right greater than the left. Correlate with L1 radiculopathy on the right. L2-3: Mild, diffuse disc bulge. Jrkx-zl-gqjaycny thickening of ligamentum flavum. Minimal facet hypertrophy. No central stenosis or exit foraminal narrowing. L3-4: Mild, diffuse disc bulge. Moderate thickening of ligamentum flavum. Minimal bilateral facet hypertrophy. Borderline narrowing of the exit foramina. Correlate with L3 radiculopathy. L4-5: Moderate, diffuse disc bulge. Severe thickening of ligamentum flavum. Zute-ab-ogaihheu facet hypertrophy. Central stenosis to 9 mm AP. Fpvhe-uhrckea-uldr-l eft severe exit foraminal narrowing. Correlate with L4 radiculopathy. L5-S1: Mild, diffuse disc bulge. Moderate facet hypertrophy. Mild thickening of ligamentum flavum. No central stenosis. Exit foraminal narrowing primarily from facet disease. Correlate with L5 radiculopathy. Sacrum: Unremarkable MRI/Spine Lumbar (Routine) IMPRESSION: 1. Fractures of T11 and L1 vertebral bodies. Very mild bone marrow edema involving the T11 vertebral body along with evidence of prior vertebroplasty suggesting it is chronic. Moderate bone marrow edema involving the L1 vertebral body. This is likely subacute to chronic. Retropulsion of T11 of approximately 4 mm, and retropulsion of L1 of approximately 7 mm. This contacts the distal cord. No abnormal cord signal seen. 2. Multilevel degenerative changes throughout the remainder of the lumbar spine. Central stenosis at L4/5. Exit foraminal narrowing at L1/2 on the right, L3/4, L4/5 and L5/S1 as above. Reading Location: [id number] CC: LOIS Brand; Dr. Merry Pham MD ~ Lard Renderer: Signed [facility] Bilirubin, totalOrdered By: Merry Pham on 03-24-2025 Bilirubin [Mass/Vol] 0.36 mg/dL 0.00-1.30 [facility] CBC W/Diff, Automatedon 07-2 -2024 Absolute Lymph 1.38 X10 3/uL Normal 0.83-4.51 [facility] Comment on above: Performed By: #### L 503.6550, L501.9520, L503.0106, L503.6030, L100.0100, L500.4050, L500.4100 #### [facility] [address] [place], [address] Absolute Neut 4.4 X10 3/uL Normal 2.0-7.7 [facility] Comment on above: Performed By: #### L 503.6550, L501.9520, L503.0106, L503.6030, L100.0100, L500.4050, L500.4100 #### [facility] [address] [place], [address] Basophils/100 WBC (Bld) 0.4 % Normal 0-1 [facility] Comment on above: Performed By: #### L 503.6550, L501.9520, L503.0106, L503.6030, L100.0100, L500.4050, L500.4100 #### [facility] [address] [place], [address] Eosinophils/100 WBC (Bld) 5.0 % Normal 0-5 [facility] Comment on above: Performed By: #### L 503.6550, L501.9520, L503.0106, L503.6030, L100.0100, L500.4050, L500.4100 #### [facility] [address] [place], [address] Erythrocyte distribution width (RBC) [Ratio] 13.6 % Normal 11.6-14.6 [facility] Comment on above: Performed By: #### L 503.6550, L501.9520, L503.0106, L503.6030, L100.0100, L500.4050, L500.4100 #### [facility] [address] [place], [address] Hematocrit (Bld) [Volume fraction] 34.2 % Low 40-54 [facility] Comment on above: Performed By: #### L 503.6550, L501.9520, L503.0106, L503.6030, L100.0100, L500.4050, L500.4100 #### [facility] [address] [place], [address] Hemoglobin (Bld) [Mass/Vol] 11.6 g/dL Low 13.0-16.5 [facility] Comment on above: Performed By: #### L 503.6550, L501.9520, L503.0106, L503.6030, L100.0100, L500.4050, L500.4100 #### [facility] [address] [place], [address] IG% 0.400 Normal 0.0-0.9 [facility] Comment on above: Result Comment: IG% - Immature Granulocytes (promyelocytes, myelocytes and metamyelocytes) > 1% indicates that a LEFT SHIFT is Present. Performed By: #### L 503.6550, L501.9520, L503.0106, L503.6030, L100.0100, L500.4050, L500.4100 #### [facility] [address] [place], [address] Lymphocytes/100 WBC (Bld) 19.2 % Normal 19-41 [facility] Comment on above: Performed By: #### L 503.6550, L501.9520, L503.0106, L503.6030, L100.0100, L500.4050, L500.4100 #### [facility] [address] [place], [address] MCH (RBC) [Entitic mass] 32.0 pg Normal 27.0-32.0 [facility] Comment on above: Performed By: #### L 503.6550, L501.9520, L503.0106, L503.6030, L100.0100, L500.4050, L500.4100 #### [facility] [address] [place], [address] MCHC (RBC) [Mass/Vol] 33.9 g/dL Normal 32-36 [facility] Comment on above: Performed By: #### L 503.6550, L501.9520, L503.0106, L503.6030, L100.0100, L500.4050, L500.4100 #### [facility] [address] [place], [address] MCV (RBC) [Entitic vol] 94.5 fL High 80-[address] [facility] Comment on above: Performed By: #### L 503.6550, L501.9520, L503.0106, L503.6030, L100.0100, L500.4050, L500.4100 #### [facility] [address] [place], [address] Monocytes/100 WBC (Bld) 13.4 % High 0-10 [facility] Comment on above: Performed By: #### L 503.6550, L501.9520, L503.0106, L503.6030, L100.0100, L500.4050, L500.4100 #### [facility] [address] [place], [address] Neutrophils/100 WBC (Bld) 61.6 % Normal 47-70 [facility] Comment on above: Performed By: #### L 503.6550, L501.9520, L503.0106, L503.6030, L100.0100, L500.4050, L500.4100 #### [facility] [address] [place], [address] Nucleated RBC (Bld) [#/Vol] 0 10*3/uL Normal 0-5 [facility] Comment on above: Performed By: #### L 503.6550, L501.9520, L503.0106, L503.6030, L100.0100, L500.4050, L500.4100 #### [facility] [address] [place], [address] Platelet mean volume (Bld) [Entitic vol] 9.0 fL Normal 6.2-12.0 [facility] Comment on above: Performed By: #### L 503.6550, L501.9520, L503.0106, L503.6030, L100.0100, L500.4050, L500.4100 #### [facility] [address] [place], [address] Platelets (Bld) [#/Vol] 219 10*3/uL Normal 150-450 [facility] Comment on above: Performed By: #### L 503.6550, L501.9520, L503.0106, L503.6030, L100.0100, L500.4050, L500.4100 #### [facility] [address] [place], [address] RBC (Bld) [#/Vol] 3.62 10*6/uL Low 4.6-6.2 [facility] Comment on above: Performed By: #### L 503.6550, L501.9520, L503.0106, L503.6030, L100.0100, L500.4050, L500.4100 #### [facility] [address] [place], [address] RDW SD 47.5 fl High 35.1-43.9 [facility] Comment on above: Performed By: #### L 503.6550, L501.9520, L503.0106, L503.6030, L100.0100, L500.4050, L500.4100 #### [facility] [address] [place], [address] WBC (Bld) [#/Vol] 7.2 10*3/uL Normal 4.4-11.0 [facility] Comment on above: Performed By: #### L 503.6550, L501.9520, L503.0106, L503.6030, L100.0100, L500.4050, L500.4100 #### [facility] [address] [place], [address] Calculated very low density lipoprotein (VLDL) cholesterol measurementOrdered By: Merry Pham on 03-24-2025 Calculated very low density lipoprotein (VLDL) cholesterol measurement 9 mg/dL 5-40 [facility] Metabolic Prof ilon 03-24-2025 Albumin [Mass/Vol] 3.3 g/dL Low 3.4-4.8 [facility] Comment on above: Performed By: #### L 503.6550, L501.9520, L503.0106, L503.6030, L100.0100, L500.4050, L500.4100 ####[facility] [address] [place], [place], [id number] Albumin/Globulin [Mass ratio] 1.5 {ratio} Normal 0.9-2.4 [facility] Comment on above: Performed By: #### L 503.6550, L501.9520, L503.0106, L503.6030, L100.0100, L500.4050, L500.4100 ####[facility] [facility] [address] [place], [address] ALK PHOS 102 U/L Normal 40-129 [facility] Comment on above: Performed By: #### L 503.6550, L501.9520, L503.0106, L503.6030, L100.0100, L500.4050, L500.4100 ####[facility] [address] [place], [address] ALT [Catalytic activity/Vol] 7 U/L Normal <=46 [facility] Comment on above: Performed By: #### L 503.6550, L501.9520, L503.0106, L503.6030, L100.0100, L500.4050, L500.4100 ####[facility] [address] [place], [address] AST [Catalytic activity/Vol] 14 U/L Normal <=37 [facility] Comment on above: Performed By: #### L 503.6550, L501.9520, L503.0106, L503.6030, L100.0100, L500.4050, L500.4100 ####[facility] [address] [place], [address] Bilirubin [Mass/Vol] 0.36 mg/dL Normal 0.00-1.30 [facility] Comment on above: Performed By: #### L 503.6550, L501.9520, L503.0106, L503.6030, L100.0100, L500.4050, L500.4100 ####[facility] [address] [place], [address] BUN/CRE 18.8 RATIO Normal 10-20 [facility] Comment on above: Performed By: #### L 503.6550, L501.9520, L503.0106, L503.6030, L100.0100, L500.4050, L500.4100 ####[facility] [address] [place], [address] Calcium [Mass/Vol] 8.7 mg/dL Normal 7.6-11.0 [facility] Comment on above: Performed By: #### L 503.6550, L501.9520, L503.0106, L503.6030, L100.0100, L500.4050, L500.4100 ####[facility] [address] [place], [address] Chloride [Moles/Vol] 105 mmol/L Normal 98-108 [facility] Comment on above: Performed By: #### L 503.6550, L501.9520, L503.0106, L503.6030, L100.0100, L500.4050, L500.4100 ####[facility] [address] [place], [address] CO2 [Moles/Vol] 30.9 mmol/L Normal 21.0-32.0 [facility] Comment on above: Performed By: #### L 503.6550, L501.9520, L503.0106, L503.6030, L100.0100, L500.4050, L500.4100 ####[facility] [address] [place], [address] Creatinine [Mass/Vol] 0.85 mg/dL Normal 0.70-1.20 [facility] Comment on above: Performed By: #### L 503.6550, L501.9520, L503.0106, L503.6030, L100.0100, L500.4050, L500.4100 ####[facility] [address] [place], [address] ECRCL 65.88 ml/min Normal 50-250 [facility] Comment on above: Performed By: #### L 503.6550, L501.9520, L503.0106, L503.6030, L100.0100, L500.4050, L500.4100 ####[facility] [address] [place], [address] GAP 9 Normal 5-15 [facility] Comment on above: Performed By: #### L 503.6550, L501.9520, L503.0106, L503.6030, L100.0100, L500.4050, L500.4100 ####[facility] [address] [place], [address] GFR/1.73 sq M.predicted among non-blacks MDRD (S/P/Bld) [Vol rate/Area] 88 mL/min/{1.73_m2} Normal >60 [facility] Comment on above: Result Comment: mL/m in/1.73m2 CKD-EPI Creatinine Equation (2020) Performed By: #### L 503.6550, L501.9520, L503.0106, L503.6030, L100.0100, L500.4050, L500.4100 ####[facility] [address] [place], [address] Globulin (S) [Mass/Vol] 2.2 g/dL Normal 2.2-4.[address] [facility] Comment on above: Performed By: #### L 503.6550, L501.9520, L503.0106, L503.6030, L100.0100, L500.4050, L500.4100 ####[facility] [address] [place], [address] Glucose [Mass/Vol] 96 mg/dL Normal 70-99 [facility] Comment on above: Performed By: #### L 503.6550, L501.9520, L503.0106, L503.6030, L100.0100, L500.4050, L500.4100 ####[facility] [address] [place], [address] Potassium [Moles/Vol] 3.7 mmol/L Normal 3.3-5.1 [facility] Comment on above: Performed By: #### L 503.6550, L501.9520, L503.0106, L503.6030, L100.0100, L500.4050, L500.4100 ####[facility] [address] [place], [address] Sodium [Moles/Vol] 145 mmol/L Normal 133-145 [facility] Comment on above: Performed By: #### L 503.6550, L501.9520, L503.0106, L503.6030, L100.0100, L500.4050, L500.4100 ####[facility] [address] [place], [address] T PROT 5.6 g/dL Low 5.9-8.4 [facility] Comment on above: Performed By: #### L 503.6550, L501.9520, L503.0106, L503.6030, L100.0100, L500.4050, L500.4100 ####[facility] [address] [place], [address] Urea nitrogen [Mass/Vol] 16 mg/dL Normal 4-19 [facility] Comment on above: Performed By: #### L 503.6550, L501.9520, L503.0106, L503.6030, L100.0100, L500.4050, L500.4100 ####[facility] [address] [place], [address] Echocardiogram study reportO rdered By: Shady Loving on 03-24-2025 Study report [facility] [address] [place] [address] Echo Complete 03/24/25 0814 MR#: [id number] Acct: [id number] Name: NANCY SY Rep #:[id number] : 1945 80 From: Shady lea MD Attending Dr: Dr. Katarina Fabian MD Status: ADM IN Ordering Dr: Merry Pham MD Date: 03/23/25 Location: [facility] Sex: M C Admitted: 03/23/25 Reason For Study Reason For Study: Edema Procedure This was a 2D Doppler, Color Flow transthoracic echocardiogram. Patient scanned supine due to back pain. Exam performed portable in patient room. Left Ventricle Normal LV size. The estimated ejection fraction is 55 %. No evidence for diastolic dysfunction. No regional wall motion abnormalities noted. Right Ventricle Normal RV size. Normal systolic function. Atria The left atrium is mildly enlarged. Normal right atrium. No doppler evidence forASD. Mitral Valve There is no mitral valve stenosis. Trivial mitral valve insufficiency. Tricuspid Valve There is no tricuspid stenosis. Trivial tricuspid valve insufficiency. Pulmonaryartery systolic pressure is 35 mmHg. Aortic Valve Trisinus/trileaflet aortic valve. There is no aortic stenosis. No aortic valve insufficiency. Pulmonic Valve There is no pulmonic valvular stenosis. No pulmonic valve insufficiency. Great Vessels Normal sized aortic root. Pericardium/Pleural No pericardial effusion. MMode/2D Measurements & Calculations LVIDd: 4.7 cm IVSd: 1.3 cm Ao root diam: 3.7 cm LVIDs: 3.0 cm LVPWd: 1.1 cm RVDd: 3.7 cm FS: 35.4 % LAV(MOD-bp): 65.6 ml LVAd ap4: 31.1 cm2 SV(MOD-sp4): 52.0 ml LAV(MOD-bp) Indexed: 34.0 ml/m2 LVLd ap4: 7.9 cm SI(MOD-sp4): 27.0 ml/m2 LAV(MOD-sp2): 69.4 ml EDV(MOD-sp4): 98.1 ml LAV(MOD-sp4): 61.0 ml EDV(sp4-el): 103.4 ml LVAs ap4: 18.0 cm2 LVLs ap4: 6.2 cm ESV(MOD-sp4): 46.1 ml ESV(sp4-el): 44.3 ml EF(MOD-sp4): 53.0 % EF(sp4-el): 57.2 % SV(sp4-el): 59.1 ml LA A4 area: 21.9 cm2 LA dimension(2D): 4.3 cm RA A4 area: 17.7 cm2 TAPSE: 2.0 cm Time Measurements MV dec time: 0.17 sec Doppler Measurements & Calculations MV E max luz elena: 76.2 cm/sec Lat Peak E' Luz Elena: 11.1 cm/sec Med Peak E' Luz Elena: 10.6 cm/sec MV A max luz elena: 89.9 cm/sec E/E' lat: 6.9 E/E' med: 7.2 MV E/A: 0.85 MV V2 max: 112.6 cm/sec MV P1/2t max luz elena: 96.2 cm/sec Ao V2 max: 154.5 cm/sec MV max P.1 mmHg MV P1/2t: 66.5 msec Ao max P.6 mmHg MV V2 mean: 68.5 cm/sec Ao V2 mean: 99.7 cm/sec MV mean P.2 mmHg MV dec slope: 423.5 cm/sec2 Ao mean P.6 mmHg MV V2 VTI: 23.6 cm MVA(P1/2t): 3.3 cm2 Ao V2 VTI: 32.3 cm AV (velocity ratio): 0.73 LV V1 max: 114.5 cm/sec TR max luz elena: 305.9 cm/sec LV V1 max P.3 mmHg TR max P.4 mmHg LV V1 mean P.8 mmHg LV V1 mean: 78.7 cm/sec LV V1 VTI: 23.7 cm ECHO/Echo Complete Interpretation Summary The estimated ejection fraction is 55 %. No evidence for diastolic dysfunction. The left atrium is mildly enlarged. Trivial mitral valve insufficiency. Ordering Physician: Merry Pham Performed By: Tommie Gurrola RCS 03/24/25 1132 Date _ Shady Loving MD CC: LOIS Brand; Dr. Merry Pham MD; Dr. Katarina Fabian MD ~ Date Dictated: 03/24/25813 Date Transcribed: 03/24/25 1132 Lard Renderer: Signed [facility] Work Phone: Ferritinon 03-24-2025 Ferritin [Mass/Vol] 680 ng/mL High 37-417 [facility] Comment on above: Performed By: #### L 503.6550, L501.9520, L503.0106, L503.6030, L100.0100, L500.4050, L500.4100 ####[facility] [address] [place], [address] Folate [Mass/volume] in Seru m or PlasmaOrdered By: Merry Pham on 03-24-2025 Folate [Mass/Vol] 8.06 ng/mL 4.60-34.80 [facility] Comment on above: Hemolysis, Results w ill be affected, Requires Recollection. Folates,Serum (Folic Acid)on 03-24-2025 FOLATES,SERUM 8.06 ng/mL Normal 4.60-34.80 [facility] Comment on above: Result Comment: Hemo lysis, Results will be affected, Requires Recollection. Performed By: #### L 506.0200 ####[facility] [address] [place], [place], [address] Iron measurement (mass/mass) Ordered By: Merry Pham on 03-24-2025 Iron (Unsp spec) [Mass/Mass] 49 ug/dL Low 65-175 [facility] Iron+Iron Binding Capacityon 03-24-2025 TIBC 168 ug/dL Low 250-450 [facility] Comment on above: Performed By: #### L 503.6550, L501.9520, L503.0106, L503.6030, L100.0100, L500.4050, L500.4100 ####[facility] [address] [place], [address] LDL calc ser/plasOrdered By: Merry Pham on 03-24-2025 Cholesterol in LDL [Mass/Vol] 62 mg/dL [facility] Comment on above: Qbjacmkvzl=686-227 m g/dL & Higher Nkli=400 mg/dL or greater Laboratory - Chemistry and C hemistry - challengeOrdered By: Merry Pham on 03-24-2025 AST [Catalytic activity/Vol] 14 U/L <38 [facility] Lipid Profileon 03-24-2025 CHOL:HDL 3.02 Normal [facility] Comment on above: Performed By: #### L 503.6550, L501.9520, L503.0106, L503.6030, L100.0100, L500.4050, L500.4100 ####[facility] [address] [place], [address] Cholesterol [Mass/Vol] 106 mg/dL Normal <=200 [facility] Comment on above: Result Comment: Chol esterol level, Desirable <200 mg/dL Borderline high cholesterol 200-239 mg/dL High cholesterol >=240 mg/dL Recommendations of the NCEP Adult Treatment Panel for the following risk-cutoff thresholds for the [place] population. Performed By: #### L 503.6550, L501.9520, L503.0106, L503.6030, L100.0100, L500.4050, L500.4100 ####[facility] [address] [place], [address] Cholesterol in HDL [Mass/Vol] 35 mg/dL Low [facility] Comment on above: Result Comment: Zenia onal Cholesterol Education Program (NCEP) guidelines: <40 mg/dL: Low HDL-cholesterol (major risk factor for CHD) >= 60 mg/dL: High HDL-cholesterol (negative risk factor for CHD) HDL-cholesterol is affected by a number of factors, e.g. smoking, exercise, hormones, sex and age. Performed By: #### L 503.6550, L501.9520, L503.0106, L503.6030, L100.0100, L500.4050, L500.4100 ####[facility] [address] [place], [address] Cholesterol in LDL [Mass/Vol] 62 mg/dL Normal [facility] Comment on above: Result Comment: Bord golmqr=652-189 mg/dL Higher Ktaf=773 mg/dL or greater Performed By: #### L 503.6550, L501.9520, L503.0106, L503.6030, L100.0100, L500.4050, L500.4100 ####[facility] [address] [place], [address] Cholesterol in VLDL [Mass/Vol] 9 mg/dL Normal 5-40 [facility] Comment on above: Performed By: #### L 503.6550, L501.9520, L503.0106, L503.6030, L100.0100, L500.4050, L500.4100 ####[facility] [address] [place], [address] Triglyceride [Mass/Vol] 45 mg/dL Normal [facility] Comment on above: Result Comment: The drugs N-Acetylcysteine and Metamizole may falsely depress this assay. Normal range: <150 mg/dL Borderline High: 150-199 mg/dL High: 200-499 mg/dL Very High: >500 mg/dL Performed By: #### L 503.6550, L501.9520, L503.0106, L503.6030, L100.0100, L500.4050, L500.4100 ####[facility] [address] [place], [address] No Panel InformationOrdered By: Merry Pham on 03-24-2025 Unsaturated Iron Binding Capacity 119 ug/dL Low 228-428 [facility] Screening total cholesterol/ high density lipoprotein (HDL) cholesterol ratioOrdered By: Merry Pham on 03-24-2025 Cholesterol.total/Annia sterol in HDL [Mass ratio] 3.02 {ratio} [facility] Serum globulin measurementOr dered By: Merry Pham 03-24-2025 Globulin (S) [Mass/Vol] 2.2 g/dL 2.2-4.2 [facility] Serum or plasma alanine gann otransferase (ALT) measurementOrdered By: Merry Pham 03-24-2025 ALT [Catalytic activity/Vol] 7 U/L <47 [facility] Serum or plasma albumin jovita urement (mass/volume)Ordered By: Merry Pham 03-24-2025 Albumin [Mass/Vol] 3.3 g/dL Low 3.4-4.8 [facility] Serum or plasma albumin/glob ulin mass ratioOrdered By: Merry Vero 03-24-2025 Albumin/Globulin [Mass ratio] 1.5 {ratio} 0.9-2.4 [facility] Serum or plasma alkaline vincent sphatase measurementOrdered By: Merry Pham 03-24-2025 ALP [Catalytic activity/Vol] 102 U/L 40-129 [facility] Serum or plasma cholesterol in HDL measurement (mass/volume)Ordered By: Merry Pham 03-24-2025 Cholesterol in HDL [Mass/Vol] 35 mg/dL Low >40 [facility] Comment on above: National Cholesterol Education Program (NCEP) guidelines:<40 mg/dL: Low HDL-cholesterol (major risk factor for CHD)>= 60 mg/dL: High HDL-cholesterol (negative risk factor for CHD)HDL-cholesterol is affected by a number of factors, e.g. smoking, exercise, hormones, sex and age. Serum or plasma cholesterol measurement (mass/volume)Ordered By: Merry Pham 03-24-2025 Cholesterol [Mass/Vol] 106 mg/dL <201 [facility] Comment on above: Cholesterol level, D esirable <200 mg/dLBorderline high cholesterol 200-239 mg/dLHigh cholesterol >=240 mg/dLRecommendations of the NCEP Adult Treatment Panel for the following risk-cutoff thresholds for the [place] population. Serum or plasma ferritin jermain surement (mass/volume)Ordered By: Merry Pham 03-24-2025 Ferritin [Mass/Vol] 680 ng/mL High 37-417 [facility] Serum or plasma iron saturat ion measurement (mass fraction)Ordered By: Merry Pham 03-24-2025 Iron saturation [Mass fraction] 29.2 % [facility] Comment on above: Previous reported re sult: 29.0 %Edited by: VIRIDIANA on 03/24/25:0756 AMENDED REPORT 03/24/25 0756 IRON SATURATION previously reported as: 29.0 % Spine Lumbar (Routine)on Spine Lumbar (Routine) [facility] Imaging Services [address] [place] [address] Spine Lumbar (Routine) MR#: [id number] Acct: [id number] Name: NANCY SY Rep #: [id number] : 1945 M 80 From: Abraham Marlow MD PCP: LOIS Resendiz Status: ADM IN Study: Spine Lumbar (Routine) Date of Exam: 03/24/25 Exam# [id number] Ordering Dr: Merry Pham MD PROCEDURE: SPINE LUMBAR (ROUTINE) 03/24/2025 REASON FOR EXAM: L1 VERTEBRAL BODY FX, SPINAL CANAL NARROWING TECHNIQUE: SPINE LUMBAR (ROUTINE) COMPARISON: November 09, 2024 FINDINGS: Vertebrae: Grade 3 T11 biconcave and anterior wedge compression fracture. Some low signal in the vertebral body from augmentation is seen. Very mild T2 prolongation on the inversion recovery images at the mid and anterior aspect of the vertebral body suggesting chronic fracture. There is some retropulsion of the posterior inferior margin of the proximally 3.8 mm. Grade 3 biconcave compression fracture of L1 vertebral body. Moderate bone marrow edema is seen involving the vertebral body. Retropulsion of the posterior superior margin of the vertebral body of the proximally 7 mm. Additionally, there is protrusion of the anterior aspect of the vertebral body a proximally 8 mm. No abnormal signal in the other vertebral bodies. No fluid signal in the intervertebral discs. No paraspinal soft tissue mass is seen. Alignment: Acute kyphosis at T12. Lumbar lordosis is otherwise preserved. Conus Medullaris: Terminates at L1/2. There is contact of the distal spinal cord by the retropulsed L1 vertebral body. This is not imaged in the axial plane. No abnormal signal in the sagittal plane. T12-L1: In the sagittal plane, there is no significant disc protrusion. Exit foramina are narrowed but there is fat around the exiting nerve roots. L1-2: Minimal, diffuse disc bulge slightly greater at the level of the foramen and far left lateral. Moderate thickening of the ligamentum flavum. No central stenosis. However, there is exit foraminal narrowing on the right greater than the left. Correlate with L1 radiculopathy on the right. L2-3: Mild, diffuse disc bulge. Upae-xa-prauyigp thickening of ligamentum flavum. Minimal facet hypertrophy. No central stenosis or exit foraminal narrowing. L3-4: Mild, diffuse disc bulge. Moderate thickening of ligamentum flavum. Minimal bilateral facet hypertrophy. Borderline narrowing of the exit foramina. Correlate with L3 radiculopathy. L4-5: Moderate, diffuse disc bulge. Severe thickening of ligamentum flavum. Vpcp-ix-ycijfhuo facet hypertrophy. Central stenosis to 9 mm AP. Kecqo-olviyzj-lups-l eft severe exit foraminal narrowing. Correlate with L4 radiculopathy. L5-S1: Mild, diffuse disc bulge. Moderate facet hypertrophy. Mild thickening of ligamentum flavum. No central stenosis. Exit foraminal narrowing primarily from facet disease. Correlate with L5 radiculopathy. Sacrum: Unremarkable MRI/Spine Lumbar (Routine) IMPRESSION: 1. Fractures of T11 and L1 vertebral bodies. Very mild bone marrow edema involving the T11 vertebral body along with evidence of prior vertebroplasty suggesting it is chronic. Moderate bone marrow edema involving the L1 vertebral body. This is likely subacute to chronic. Retropulsion of T11 of approximately 4 mm, and retropulsion of L1 of approximately 7 mm. This contacts the distal cord. No abnormal cord signal seen. 2. Multilevel degenerative changes throughout the remainder of the lumbar spine. Central stenosis at L4/5. Exit foraminal narrowing at L1/2 on the right, L3/4, L4/5 and L5/S1 as above. Reading Location: [id number] CC: LOIS Brand; Dr. 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 CONTRAST: None COMPARISON: March 23, 2025 FINDINGS: Vertebrae: Grade 3 biconcave compression fracture of T9 vertebral body with some fluid signal in the central portion of the body. Review of prior CT also showed vacuum disc on either side of the vertebral body and in the vertebral body itself. This is likely chronic. Retropulsion of the posterior aspect of the mid body 5 mm. Grade 3 T11 biconcave and anterior wedge compression fracture. Some low signal in the vertebral body from augmentation is seen. Very mild T2 prolongation on the inversion recovery images at the mid and anterior aspect of the vertebral body suggesting chronic fracture. There is some retropulsion of the posterior inferior margin of the proximally 3.8 mm. Grade 3 biconcave compression fracture of L1 vertebral body. Moderate bone marrow edema is seen involving the vertebral body. Retropulsion of the posterior superior margin of the vertebral body of the proximally 7 mm. Additionally, there is protrusion of the anterior aspect of the vertebral body a proximally 8 mm. Alignment: Straightening of the normal thoracic kyphosis. Acute kyphosis lower thoracic spine related to fractures. Spinal Cord: There is effacement of the anterior thecal sac from the fracture T9 vertebral body in the retropulsed portion of the body. This contacts the cord but is not associated with any abnormal cord signal. Exit foramina at T9/10 are severely narrowed. Retropulsion of T11 creates an extradural defect that approaches the cord but does not deform the cord. No abnormal cord signal seen there. images: MRI/Spine Thoracic (Routine) IMPRESSION: 1. Straightening of the upper thoracic spine. Acute kyphosis lower thoracic spine related to multiple fractures. 2. There is contact of the spinal cord by the T9 vertebral body with no abnormal signal seen. 3. Severe exit foraminal narrowing T9/10. Correlate with radiculopathy at T9. Reading Location: [facility] CC: LOIS Brand; Dr. Merry Pham MD Lard Renderer: Signed Normal [facility] TSH DL <= 0.005 mIU/L QnOrde red By: Merry Pham on 03-24-2025 TSH Qn 0.640 uIU/mL 0.300-4.200 [facility] Thyroid Stim Hormone (TSH)on 03-24-2025 TSH 0.640 uIU/mL Normal 0.300-4.200 [facility] Comment on above: Performed By: #### L 503.6550, L501.9520, L503.0106, L503.6030, L100.0100, L500.4050, L500.4100 ####[facility] [address] [place], [place], [address] Total proteinOrdered By: Ludwig Pham on 03-24-2025 Protein [Mass/Vol] 5.6 g/dL Low 5.9-8.4 [facility] Triglycerides measurementOrd ered By: Merry Pham on 03-24-2025 Triglyceride [Mass/Vol] 45 mg/dL <199 [facility] Comment on above: The drugs N-Acetylcy steine and Metamizole may falsely depress this assay. Normal range: <150 mg/dLBorderline High: 150-199 mg/dLHigh: 200-499 mg/dLVery High: >500 mg/dL Vitamin B12on 03-24-2025 Cobalamin (Vitamin B12) [Mass/Vol] 1246 pg/mL High 180-914 [facility] Comment on above: Performed By: #### L 503.6550, L501.9520, L503.0106, L503.6030, L100.0100, L500.4050, L500.4100 ####[facility] [address] [place], [address] Vitamin B12 ser/plasOrdered By: Merry Pham on 03-24-2025 Cobalamin (Vitamin B12) [Mass/Vol] 1246 pg/mL High 180-914 [facility] 12 Lead EKGon 03-23-2025 12 Lead EKG [facility] Cardiovascular Services [address] [place] [address] 12 Lead EKG 03/23/25 1734 MR#: [id number] Acct: [id number] Name: NANCY SY Rep #: [id number] : 1945 80 From: Shady Loving MD Attending Dr: Dr. Katarina Fabian MD Status: AD M IN Ordering Dr: Marco Camacho DO Date: 03/23/25 Location: [facility] Sex: M C Admitted: 03/23/25 Test Reason : GENERAL Blood Pressure : */* mmHG Vent. Rate : 99 BPM Atrial Rate : 99 BPM P-R Int : 136 ms QRS Dur : 78 ms QT Int : 366 ms P-R-T Axes : 51 -9 -16 degrees QTcB Int : 469 ms Sinus rhythm with occasional Premature ventricular complexes Otherwise normal ECG Confirmed by INDER GOODSON, FRANNY ([id number]), editor managing director BEVERLEY ZAPATA ([id number]) on 03/25/2025 1:10:30 PM Referred By: Confirmed By: FRANNY LOVING MD 03/25/25 1310 Date Shady Loving MD CC: LOIS Brand; Dr. Katarina Fabian MD; Dr. Marco Camacho DO Signed Normal [facility] Absolute lymphocyte countOrd ered By: Marco Camacho on 03-23-2025 Lymphocytes Auto (Unsp spec) [#/Vol] 0.82 10*3/uL Low 0.83-4.51 [facility] Absolute neutrophil countOrd ered By: Marco Camacho on 03-23-2025 Neutrophils (Bld) [#/Vol] 6.0 10*3/uL 2.0-7.7 [facility] Anion gap in Serum or Plasma Ordered By: Marco Camacho on 03-23-2025 Anion gap [Moles/Vol] 10 mmol/L 5-15 [facility] Automated lymphocyte count a s percentage of total leukocytesOrdered By: Marco Camacho on 03-23-2025 Lymphocytes/100 WBC Auto (Unsp spec) 10.3 % Low 19-41 [facility] BUN/creatinine ratioOrdered By: Marco Camacho on 03-23-2025 Urea nitrogen/Creatinine [Mass ratio] 17.4 mg/mg 10-20 [facility] Basophil percentageOrdered B y: Marco Camacho on 03-23-2025 Basophils/100 WBC (Bld) 0.5 % 0-1 [facility] Bilirubin, totalOrdered By: Marco Camacho on 03-23-2025 Bilirubin [Mass/Vol] 0.29 mg/dL 0.00-1.30 [facility] Brain/Head without Contrasto n 03-23-2025 Brain/Head without Contrast [facility] Imaging Services [address] [place] [address] Brain/Head without Contrast MR#: [id number] Acct: [id number] Name: NANCY SY Rep #: [id number] : 1945 M 80 From: Presley Delatorre MD PCP: LOIS Resendiz Status: REG ER Study: Brain/Head without Contrast Date of Exam: 03/02 11/23 Exam# [id number] Ordering Dr: Marco Camacho DO PROCEDURE: BRAIN/HEAD WITHOUT CONTRAST 03/23/2025 REASON FOR EXAM: DIZZINESS, BALANCE ISSUE TECHNIQUE: BRAIN/HEAD WITHOUT CONTRAST Coronal and Sagittal reconstruction series were provided. One or more dose reduction techniques were used (e.g., Automated exposure control, adjustment of the mA and/or kV according to patient size, use of iterative reconstruction technique. RADIATION DOSE SUMMARY: CTDlvol: 27.09 mGy DLP: 3804.78 mGycm COMPARISON: None. FINDINGS: Mild global parenchymal atrophy. Chronic microvascular ischemia. No evidence of acute hemorrhage or infarction. No extra-axial blood or fluid collections. The paranasal sinuses are clear. The mastoid air cells are well aerated. The calvarial vault and skull base are intact. CT/Brain/Head without Contrast IMPRESSION: No acute intracranial abnormality. Reading Location: [id number] CC: LOIS Brand; Dr. Marco Camacho DO Lard Renderer: Signed Normal [facility] CBC W/Diff, Automatedon 03-02 Absolute Lymph 0.82 X10 3/uL Low 0.83-4.51 [facility] Comment on above: Performed By: #### L 503.7505, L100.0100, L500.4050, L501.2450, L501.4021 ####[facility] [address] [place], [address] Absolute Neut 6.0 X10 3/uL Normal 2.0-7.7 [facility] Comment on above: Performed By: #### L 503.7505, L100.0100, L500.4050, L501.2450, L501.4021 ####[facility] [address] [place], [address] Basophils/100 WBC (Bld) 0.5 % Normal 0-1 [facility] Comment on above: Performed By: #### L 503.7505, L100.0100, L500.4050, L501.2450, L501.4021 ####[facility] [address] [place], [address] Eosinophils/100 WBC (Bld) 3.3 % Normal 0-5 [facility] Comment on above: Performed By: #### L 503.7505, L100.0100, L500.4050, L501.2450, L501.4021 ####[facility] [address] [place], [address] Erythrocyte distribution width (RBC) [Ratio] 13.5 % Normal 11.6-14.6 [facility] Comment on above: Performed By: #### L 503.7505, L100.0100, L500.4050, L501.2450, L501.4021 ####[facility] [address] [place], [address] Hematocrit (Bld) [Volume fraction] 37.2 % Low 40-54 [facility] Comment on above: Performed By: #### L 503.7505, L100.0100, L500.4050, L501.2450, L501.4021 ####[facility] [address] [place], [address] Hemoglobin (Bld) [Mass/Vol] 12.6 g/dL Low 13.0-16.5 [facility] Comment on above: Performed By: #### L 503.7505, L100.0100, L500.4050, L501.2450, L501.4021 ####[facility] [address] [place], [address] IG% 0.500 Normal 0.0-0.9 [facility] Comment on above: Result Comment: IG% - Immature Granulocytes (promyelocytes, myelocytes and metamyelocytes) > 1% indicates that a LEFT SHIFT is Present. Performed By: #### L 503.7505, L100.0100, L500.4050, L501.2450, L501.4021 ####[facility] [address] [place], [address] Lymphocytes/100 WBC (Bld) 10.3 % Low 19-41 [facility] Comment on above: Performed By: #### L 503.7505, L100.0100, L500.4050, L501.2450, L501.4021 ####[facility] [address] [place], [address] MCH (RBC) [Entitic mass] 32.1 pg High 27.0-32.0 [facility] Comment on above: Performed By: #### L 503.7505, L100.0100, L500.4050, L501.2450, L501.4021 ####[facility] [address] [place], [address] MCHC (RBC) [Mass/Vol] 33.9 g/dL Normal 32-36 [facility] Comment on above: Performed By: #### L 503.7505, L100.0100, L500.4050, L501.2450, L501.4021 ####[facility] [address] [place], [address] MCV (RBC) [Entitic vol] 94.9 fL High 80-94 [facility] Comment on above: Performed By: #### L 503.7505, L100.0100, L500.4050, L501.2450, L501.4021 ####[facility] [address] [place], [address] Monocytes/100 WBC (Bld) 10.1 % High 0-10 [facility] Comment on above: Performed By: #### L 503.7505, L100.0100, L500.4050, L501.2450, L501.4021 ####[facility] [address] [place], [address] Neutrophils/100 WBC (Bld) 75.3 % High 47-70 [facility] Comment on above: Performed By: #### L 503.7505, L100.0100, L500.4050, L501.2450, L501.4021 ####[facility] [address] [place], [address] Nucleated RBC (Bld) [#/Vol] 0 10*3/uL Normal 0-5 [facility] Comment on above: Performed By: #### L 503.7505, L100.0100, L500.4050, L501.2450, L501.4021 ####[facility] [address] [place], [address] Platelet mean volume (Bld) [Entitic vol] 8.9 fL Normal 6.2-12.0 [facility] Comment on above: Performed By: #### L 503.7505, L100.0100, L500.4050, L501.2450, L501.4021 ####[facility] [address] [place], [address] Platelets (Bld) [#/Vol] 232 10*3/uL Normal 150-450 [facility] Comment on above: Performed By: #### L 503.7505, L100.0100, L500.4050, L501.2450, L501.4021 ####[facility] [address] [place], [address] RBC (Bld) [#/Vol] 3.92 10*6/uL Low 4.6-6.2 [facility] Comment on above: Performed By: #### L 503.7505, L100.0100, L500.4050, L501.2450, L501.4021 ####[facility] [address] [place], [address] RDW SD 47.0 fl High 35.1-43.9 [facility] Comment on above: Performed By: #### L 503.7505, L100.0100, L500.4050, L501.2450, L501.4021 ####[facility] [address] [place], [address] WBC (Bld) [#/Vol] 8.0 10*3/uL Normal 4.4-11.0 [facility] Comment on above: Performed By: #### L 503.7505, L100.0100, L500.4050, L501.2450, L501.4021 ####[facility] [address] [place], [address] Carbon dioxide, total [Moles /volume] in Central venous bloodOrdered By: Marco Camacho on 03-23-2025 CO2 [Moles/Vol] 28.5 mmol/L 21.0-32.0 [facility] Chest 1 View (Portable)on Chest 1 View (Portable) [facility] Imaging Services [address] [place] [address] Chest 1 View (Portable) MR#: [id number] Acct: [id number] Name: NANCY SY Rep #: [id number] : 1945 M 80 From: Presley Delatorre MD PCP: LOIS Resendiz Status: REG ER Study: Chest 1 View (Portable) Date of Exam: 03/23/25 Exam# [id number] Ordering Dr: Marco Camacho DO PROCEDURE: CHEST 1 VIEW (PORTABLE) 03/23/2025 REASON FOR EXAM: DIZZINESS, SHORTNESS OF BREATH TECHNIQUE: Frontal view of the chest. COMPARISON: None. FINDINGS: The heart is partially obscured due to low lung volumes. Left basilar linear opacities which may represent atelectasis versus scar. The lungs are otherwise clear. No acute osseous abnormalities. RAD/Chest 1 View (Portable) IMPRESSION: No Acute Findings. Reading Location: [id number] CC: LOIS Brand; Dr. Marco Camacho DO Lard Renderer: Signed Normal [facility] Chloride assayOrdered By: Eric Camacho on 03-23-2025 Chloride [Moles/Vol] 105 mmol/L 98-108 [facility] Comprehensive Metabolic Prof ilon 03-23-2025 Albumin [Mass/Vol] 3.8 g/dL Normal 3.4-4.8 [facility] Comment on above: Performed By: #### L 503.7505, L100.0100, L500.4050, L501.2450, L501.4021 ####[facility] [address] [place], [address] Albumin/Globulin [Mass ratio] 1.5 {ratio} Normal 0.9-2.4 [facility] Comment on above: Performed By: #### L 503.7505, L100.0100, L500.4050, L501.2450, L501.4021 ####[facility] [address] [place], [address] ALK PHOS 112 U/L Normal 40-129 [facility] Comment on above: Performed By: #### L 503.7505, L100.0100, L500.4050, L501.2450, L501.4021 ####[facility] [address] [place], [address] ALT [Catalytic activity/Vol] 9 U/L Normal <=46 [facility] Comment on above: Performed By: #### L 503.7505, L100.0100, L500.4050, L501.2450, L501.4021 ####[facility] [address] [place], [address] AST [Catalytic activity/Vol] 16 U/L Normal <=37 [facility] Comment on above: Performed By: #### L 503.7505, L100.0100, L500.4050, L501.2450, L501.4021 ####[facility] [address] [place], [address] Bilirubin [Mass/Vol] 0.29 mg/dL Normal 0.00-1.30 [facility] Comment on above: Performed By: #### L 503.7505, L100.0100, L500.4050, L501.2450, L501.4021 ####[facility] [address] [place], [address] BUN/CRE 17.4 RATIO Normal 10-20 [facility] Comment on above: Performed By: #### L 503.7505, L100.0100, L500.4050, L501.2450, L501.4021 ####[facility] [address] [place], [address] Calcium [Mass/Vol] 9.2 mg/dL Normal 7.6-11.0 [facility] Comment on above: Performed By: #### L 503.7505, L100.0100, L500.4050, L501.2450, L501.4021 ####[facility] [address] [place], [address] Chloride [Moles/Vol] 105 mmol/L Normal 98-108 [facility] Comment on above: Performed By: #### L 503.7505, L100.0100, L500.4050, L501.2450, L501.4021 ####[facility] [address] [place], [address] CO2 [Moles/Vol] 28.5 mmol/L Normal 21.0-32.0 [facility] Comment on above: Performed By: #### L 503.7505, L100.0100, L500.4050, L501.2450, L501.4021 ####[facility] [address] [place], [address] Creatinine [Mass/Vol] 0.84 mg/dL Normal 0.70-1.20 [facility] Comment on above: Performed By: #### L 503.7505, L100.0100, L500.4050, L501.2450, L501.4021 ####[facility] [address] [place], [address] ECRCL 71.31 ml/min Normal 50-250 [facility] Comment on above: Performed By: #### L 503.7505, L100.0100, L500.4050, L501.2450, L501.4021 ####[facility] [address] [place], [address] GAP 10 Normal 5-15 [facility] Comment on above: Performed By: #### L 503.7505, L100.0100, L500.4050, L501.2450, L501.4021 ####[facility] [address] [place], [address] GFR/1.73 sq M.predicted among non-blacks MDRD (S/P/Bld) [Vol rate/Area] 89 mL/min/{1.73_m2} Normal >60 [facility] Comment on above: Result Comment: mL/m in/1.73m2 CKD-EPI Creatinine Equation (2020) Performed By: #### L 503.7505, L100.0100, L500.4050, L501.2450, L501.4021 ####[facility] [address] [place], [address] Globulin (S) [Mass/Vol] 2.4 g/dL Normal 2.2-4.[address] [facility] Comment on above: Performed By: #### L 503.7505, L100.0100, L500.4050, L501.2450, L501.4021 ####[facility] [address] [place], [address] Glucose [Mass/Vol] 95 mg/dL Normal 70-99 [facility] Comment on above: Performed By: #### L 503.7505, L100.0100, L500.4050, L501.2450, L501.4021 ####[facility] [address] [place], [address] Potassium [Moles/Vol] 3.8 mmol/L Normal 3.3-5.1 [facility] Comment on above: Performed By: #### L 503.7505, L100.0100, L500.4050, L501.2450, L501.4021 ####[facility] [address] [place], [address] Sodium [Moles/Vol] 144 mmol/L Normal 133-145 [facility] Comment on above: Performed By: #### L 503.7505, L100.0100, L500.4050, L501.2450, L501.4021 ####[facility] [address] [place], [address] T PROT 6.2 g/dL Normal 5.9-8.4 [facility] Comment on above: Performed By: #### L 503.7505, L100.0100, L500.4050, L501.2450, L501.4021 ####[facility] [address] [place], [address] Urea nitrogen [Mass/Vol] 15 mg/dL Normal 4-19 [facility] Comment on above: Performed By: #### L 503.7505, L100.0100, L500.4050, L501.2450, L501.4021 ####[facility] [address] [place], [address] Echo Completeon 03-23-2025 Echo Complete [facility] Cardiovascular Services [address] [place] [address] Echo Complete 03/24/25 0814 MR#: [id number] Acct: [id number] Name: NANCY SY Rep #: [id number] : 1945 80 From: Shady Loving MD Attending Dr: Dr. Katarina Fabian MD Status: AD M IN Ordering Dr: Merry Pham MD Date: 03/23/25 Location: [facility] Sex: M Shahla Admitted: 03/23/25 Reason For Study Reason For Study: Edema Procedure This was a 2D Doppler, Color Flow transthoracic echocardiogram. Patient scanned supine due to back pain. Exam performed portable in patient room. Left Ventricle Normal LV size. The estimated ejection fraction is 55 %. No evidence for diastolic dysfunction. No regional wall motion abnormalities noted. Right Ventricle Normal RV size. Normal systolic function. Atria The left atrium is mildly enlarged. Normal right atrium. No doppler evidence for ASD. Mitral Valve There is no mitral valve stenosis. Trivial mitral valve insufficiency. Tricuspid Valve There is no tricuspid stenosis. Trivial tricuspid valve insufficiency. Pulmonary artery systolic pressure is 35 mmHg. Aortic Valve Trisinus/trileaflet aortic valve. There is no aortic stenosis. No aortic valve insufficiency. Pulmonic Valve There is no pulmonic valvular stenosis. No pulmonic valve insufficiency. Great Vessels Normal sized aortic root. Pericardium/Pleural No pericardial effusion. MMode/2D Measurements Calculations LVIDd: 4.7 cm IVSd: 1.3 cm Ao root diam: 3.7 cm LVIDs: 3.0 cm LVPWd: 1.1 cm RVDd: 3.7 cm FS: 35.4 % LAV(MOD-bp): 65.6 ml LVAd ap4: 31.1 cm2 SV(MOD-sp4): 52.0 ml LAV(MOD-bp) Indexed: 34.0 ml/m2 LVLd ap4: 7.9 cm SI(MOD-sp4): 27.0 ml/m2 LAV(MOD-sp2): 69.4 ml EDV(MOD-sp4): 98.1 ml LAV(MOD-sp4): 61.0 ml EDV(sp4-el): 103.4 ml LVAs ap4: 18.0 cm2 LVLs ap4: 6.2 cm ESV(MOD-sp4): 46.1 ml ESV(sp4-el): 44.3 ml EF(MOD-sp4): 53.0 % EF(sp4-el): 57.2 % SV(sp4-el): 59.1 ml LA A4 area: 21.9 cm2 LA dimension(2D): 4.3 cm RA A4 area: 17.7 cm2 TAPSE: 2.0 cm Time Measurements MV dec time: 0.17 sec Doppler Measurements Calculations MV E max luz elena: 76.2 cm/sec Lat Peak E' Luz Elena: 11.1 cm/sec Med Peak E' Luz Elena: 10.6 cm/sec MV A max luz elena: 89.9 cm/sec E/E' lat: 6.9 E/E' med: 7.2 MV E/A: 0.85 MV V2 max: 112.6 cm/sec MV P1/2t max luz elena: 96.2 cm/sec Ao V2 max: 154.5 cm/sec MV max P.1 mmHg MV P1/2t: 66.5 msec Ao max P.6 mmHg MV V2 mean: 68.5 cm/sec Ao V2 mean: 99.7 cm/sec MV mean P.2 mmHg MV dec slope: 423.5 cm/sec2 Ao mean P.6 mmHg MV V2 VTI: 23.6 cm MVA(P1/2t): 3.3 cm2 Ao V2 VTI: 32.3 cm AV (velocity ratio): 0.73 LV V1 max: 114.5 cm/sec TR max luz elena: 305.9 cm/sec LV V1 max P.3 mmHg TR max P.4 mmHg LV V1 mean P.8 mmHg LV V1 mean: 78.7 cm/sec LV V1 VTI: 23.7 cm ECHO/Echo Complete Interpretation Summary The estimated ejection fraction is 55 %. No evidence for diastolic dysfunction. The left atrium is mildly enlarged. Trivial mitral valve insufficiency. Ordering Physician: Merry Pham Performed By: Tommie Gurrola RCS 03/24/25 1132 Date Shady Loving MD CC: LOIS Brand; Dr. Merry Pham MD; Dr. Katarina Fabian MD Date Dictated: 03/24/25 0814 Date Transcribed: 03/24/25 1132 Lard Renderer: Signed Normal [facility] Emergency Department Summary on 03-23-2025 Emergency Department Summary [facility] Medical Records Department [address] [place] [address] Emergency Department Summary 03/23/25 MR#: [id number] Acct: [id number] Name: NANCY SY Rep #: [id number] : 1945 80 From: Marco Camacho DO PCP: LOIS Resendiz Status:ADM IN Location: [address] History of Present Illness Chief Complaint: Edema PFSH [facility] Medical History CKD (chronic kidney disease), stage II Former tobacco use BPH (benign prostatic hyperplasia) HLD (hyperlipidemia) Chronic anemia Pancreatitis Osteoporosis Osteopenia Kidney stones Arthritis Allergies Hemorrhoids Hypertension Home Medications ???Medication ???Instructions ???Recorded ???Last Taken ???Type carvedilol 3.125 mg tablet 3.125 mg PO BID 07/09/23 03/22/25 History amlodipine 10 mg tablet 10 mg PO QDAY 07/26/24 03/22/25 Hi story buspirone 15 mg tablet 15 mg PO BID 07/26/24 03/22/25 His tory calcium carbonate 1,000 mg PO QDAY 07/26/24 03/22/25 History cyanocobalamin (vitamin B-12) 1,000 mcg PO QDAY 07/26/24 5 History 1,000 mcg capsule losartan 25 mg tablet 100 mg PO DAILY 07/26/24 03/22/25 History melatonin 5 mg capsule mg PO 07/26/24 03/22/25 History paroxetine HCl 40 mg tablet 40 mg PO QDAY 07/26/24 03/22/25 Hi story tamsulosin 0.4 mg capsule (Flomax) 0.4 mg PO QDAY 07/26/24 03/22/25 History cholecalciferol (vitamin D3) 1,250 1,250 mcg PO QWEEK 09/23/24 Unkn own History mcg (50,000 unit) capsule acetaminophen 325 mg tablet 650 mg PO Q6H PRN pain 03/23/25 History (Tylenol) Allergy/AdvReac Type Severity Reaction Status Date / Time No Known Allergies Allergy Verified 03/23/25 16:56 Family History Father Alcoholism Brother Depression Suicide attempt Grandmother Parkinson disease Sister Osteoporosis Mother Non-alcoholic cirrhosis Surgical History S/P tonsillectomy S/P appendectomy Hx of cholecystectomy Social History household members: spouse Smoking Status: Former smoker how long ago did patient quit smoking: Quit pipe smoking 15 yrs prior, smoked since 13 20 refill/day. alcohol intake: never substance use type: does not use EXAM Physical Exam Const Vital Signs: 03/23/25 15:59 03/23/25 16:56 03/23/25 18:00 Temperature 98.4 F Temperature Source Oral Pulse Rate 102 H 94 Respiratory Rate 16 18 Respiratory Effort Normal Respiratory Pattern Normal Blood Pressure 134/80 H 149/80 H Blood Pressure Mean 98 103 Pulse Ox 94 95 Oxygen Delivery Method Room Air Room Air 03/23/25 19:24 03/23/25 19:30 03/23/25 19:45 Temperature Temperature Source Pulse Rate 93 93 Respiratory Rate 19 H 21 H Respiratory Effort Respiratory Pattern Blood Pressure 148/80 H Blood Pressure Mean 100 Pulse Ox 94 95 Oxygen Delivery Method 03/23/25 20:00 03/23/25 20:00 03/23/25 20:01 Temperature 97.9 F Temperature Source Pulse Rate 97 97 97 Respiratory Rate 20 H 19 H 16 Respiratory Effort Respiratory Pattern Blood Pressure 165/84 H 165/84 H 165/84 H Blood Pressure Mean 111 105 111 Pulse Ox 95 92 98 Oxygen Delivery Method Room Air MDM MDM MDM Narrative Medical decision making narrative: HISTORY OF PRESENT ILLNESS: Chief complaint: Lower extremity swelling, difficulty ambulating 80-year-old male history of osteoporosis, hypertension, presents with a myriad complaints. States last 2 weeks has had worsening swelling in bilateral lower extremities. His daughter and state he started a water pill 2 weeks ago and use it for 3 days but did not relieve his symptoms. Patient is also concerned about difficulty walking and balance issues. Also concerned about chronic back pain. He states balance issues have made been made worse by swelling. He notes shortness of breath and dyspnea on exertion. Denies cough fever chills. Denies any bleeding diathesis. Denies any palpitations. Denies any history of liver dysfunction, alcohol abuse. Denies decreased urination or history of kidney dysfunction. In terms of balance issues his last fall was 1 month ago and has had no imaging of his back despite recent hospitalization. Patient denies active cancer, being bedridden for greater than 3 days, denies unilateral leg swelling, denies any varicose veins, denies any calf tenderness, denies tenderness along deep venous system. Denies major surgery within 12 weeks, recent paralysis, previous DVT. Of note the patient notes a fall approximate 1 month ago which he injured his back. He notes he has a history of compre (more content not included)... Normal [facility] Eosinophil percentageOrdered By: Marco Camacho on 03-23-2025 Eosinophils/100 WBC (Bld) 3.3 % 0-5 [facility] Erythrocyte distribution wid th ratioOrdered By: Marco Camacho on 03-23-2025 Erythrocyte distribution width (RBC) [Ratio] 13.5 % 11.6-14.6 [facility] Erythrocyte distribution wid th standard deviationOrdered By: Marco Camacho on 03-23-2025 Erythrocyte distribution width (RBC) [Ratio] 47.0 fl High 35.1-43.9 [facility] Glomerular filtration rate ( GFR) estimation/1.73 sq m using serum, plasma, or whole bOrdered By: Marco Camacho on 03-23-2025 GFR/1.73 sq M.predicted among non-blacks MDRD (S/P/Bld) [Vol rate/Area] 89 mL/min/{1.73_m2} >60 [facility] Comment on above: mL/min/1.73m2 CKD-EP I Creatinine Equation (2020) H AND P Exam - [facility] 03-23-2025 H&P Exam - Hospitalist [facility] Medical Records Department [address] [place] [address] H P Exam - Hospitalist 03/23/252008 MR#: [id number] Acct: [id number] Name: NANCY SY Rep #: [id number] : 1945 80 From: Merry Pham MD PCP: NOAH ResendizC Status:ADM IN Location: [facility] [id number] HPI - General General Date of Admission: 03/23/25 Date of Service: 03/23/25 Chief Complaint: Acute on Chronic back pain, increased BL LE edema, chronic debility HPI Narrative The patient is a 80 y/o M w/ PMHx: Possible Chronic macrocytic anemia, CKD stage II per GFR trending, OA, Allergic rhinitis, Former tobacco use who presents to [facility] ED on 03/23/2025 with 2 weeks of progressively worsening swelling to bilateral lower extremities started on a recent diuretic pill 2 weeks previous using it for 3 days however it did not improve his symptoms so potentially discontinued with difficulty walking, worsened back discomfort and balance issues made worse by his recent increased swelling with no specific dyspnea or any recent cough, fevers or chills prompting ED evaluation he notes that his most recent fall was within the last 2 to 3 weeks. He states that his back discomfort is primarily worsened with any activity or standing attempts. He has been much more sessile since this discomfort. When he does attempt any kind of ambulation his pain is severe, 10 out of 10 with significant debility. He has been attempting to use assistive devices. He denies any specific increased paresthesias above his baseline. He denies any urinary or stool incontinence. Workup in the ED included T98.4, heart rate 102, BP 134 bradycardia, respiratory rate 16, 94% room air with most recent repeat vital signs heart rate 97, BP 165/84, respiratory rate 16, 98% on room air, CBC with WC 8.0, hemoglobin 12.6, MCV 94.9, platelet 232 with lymphopenia, CMP with BUN/creatinine 15/0.84, GFR 89, troponin initial 33 with repeat delta pending, NT proBNP II 417, bilateral lower extremity duplex ultrasounds negative, CT brain with no acute intracranial abnormality with mild global parenchymal atrophy and chronic microvascular ischemia, CT of the lumbar spine with severe compression deformity L1 vertebral body likely chronic however it does result in moderate spinal canal stenosis, CT of the thoracic spine with no acute fracture, moderate to severe compression deformity T9 vertebral body with lucency along the anterior aspect with inability to rule out an acute fracture, chest x-ray with no acute findings. [facility] Medical History CKD (chronic kidney disease), stage II Former tobacco use BPH (benign prostatic hyperplasia) HLD (hyperlipidemia) Chronic anemia Pancreatitis Osteoporosis Osteopenia Kidney stones Arthritis Allergies Hemorrhoids Hypertension Home Medications ???Medication ???Instructions ???Recorded ???Last Taken ???Type carvedilol 3.125 mg tablet 3.125 mg PO BID 07/09/23 03/22/25 History amlodipine 10 mg tablet 10 mg PO QDAY 07/26/24 03/22/25 Hi story buspirone 15 mg tablet 15 mg PO BID 07/26/24 03/22/25 His tory calcium carbonate 1,000 mg PO QDAY 07/26/24 03/22/25 History cyanocobalamin (vitamin B-12) 1,000 mcg PO QDAY 07/26/24 5 History 1,000 mcg capsule losartan 25 mg tablet 100 mg PO DAILY 07/26/24 03/22/25 History melatonin 5 mg capsule mg PO 07/26/24 03/22/25 History paroxetine HCl 40 mg tablet 40 mg PO QDAY 07/26/24 03/22/25 Hi story tamsulosin 0.4 mg capsule (Flomax) 0.4 mg PO QDAY 07/26/24 03/22/25 History cholecalciferol (vitamin D3) 1,250 1,250 mcg PO QWEEK 09/23/24 Unkn own History mcg (50,000 unit) capsule acetaminophen 325 mg tablet 650 mg PO Q6H PRN pain 03/23/25 History (Tylenol) Allergy/AdvReac Type Severity Reaction Status Date / Time No Known Allergies Allergy Verified 03/23/25 16:56 Family History (Updated 03/23/25 @ 21:[address] Merry Pham MD) Father Alcoholism Brother Depression Suicide attempt Grandmother Parkinson disease Sister Osteoporosis Mother Non-alcoholic cirrhosis Surgical History S/P tonsillectomy S/P appendectomy Hx of cholecystectomy Social History (Updated 07/23/25 @ 21:[address] Merry Pham MD) household members: spouse Smoking Status: Former smoker how long ago did patient quit smoking: Quit pipe smoking 15 yrs prior, smoked since 13 20 refill/day. alcohol intake: never substance use type: does not use ROS ROS Narrative Admission Review of Systems: CONSTITUTIONAL: No weight loss, fever, chills, weakness or fatigue. HEENT: Eyes: No visual loss, blurred vision, double vision or yellow sclerae. Ears, Nose, Throat: No hearing loss, sneezing, congestion, runny nose or sore throat. (more content not included)... Normal [facility] Hematocrit Auto (Bld) [Volum e fraction]Ordered By: Marco Camacho on 03-23-2025 Hematocrit (Bld) [Volume fraction] 37.2 % Low 40-54 [facility] Hemoglobin measurementOrdere d By: Marco Camacho on 03-23-2025 Hemoglobin (Bld) [Mass/Vol] 12.6 g/dL Low 13.0-16.5 [facility] Immature granulocytes/100 WB C Auto (Bld)Ordered By: Marco Camacho on 03-23-2025 Immature granulocytes/100 WBC (Bld) 0.500 % 0.0-0.9 [facility] Comment on above: IG% - Immature Granu locytes (promyelocytes, myelocytes and metamyelocytes) > 1% indicates that a LEFT SHIFT is Present. L501.4021on 03-23-2025 Trop T High Sen 33 ng/L High <=22 [facility] Comment on above: Performed By: #### L 503.7505, L100.0100, L500.4050, L501.2450, L501.4021 ####[facility] [address] [place], [place], [id number] L503.7505on 03-23-2025 Natriuretic peptide B (Bld) [Mass/Vol] 417 pg/mL Normal <=1800 [facility] Comment on above: Result Comment: Hear t Failure Unlikely: < 300 pg/mL Heart Failure Likely < 50 Years: > 450 pg/mL 50-75 Years: > 900 pg/mL >75 Years: > 1800 pg/mL Performed By: #### L 503.7505, L100.0100, L500.4050, L501.2450, L501.4021 ####[facility] [address] [place], [place], [id number] Laboratory - Chemistry and C hemistry - challengeOrdered By: Marco Camacho on 03-23-2025 AST [Catalytic activity/Vol] 16 U/L <38 [facility] Lipaseon 03-23-2025 Lipase [Catalytic activity/Vol] 21 U/L Normal 13-75 [facility] Comment on above: Result Comment: Greg blanco note: LIPASE revised reference range effective 22. New Lipase methodology. Expected to produce lower values than the previous assay method. NEW Reference Range: 13 - 75 U/L Performed By: #### L 503.7505, L100.0100, L500.4050, L501.2450, L501.4021 ####[facility] [address] [place], [place], [id number] Lipase measurementOrdered By : Marco Camacho on 03-23-2025 Lipase [Catalytic activity/Vol] 21 U/L 13-75 [facility] Comment on above: Please note:LIPASE r evised reference range effective 22. New Lipase methodology. Expected to produce lower values than the previous assay method. NEW Reference Range: 13 - 75 U/L MCV (mean corpuscular volume ) determinationOrdered By: Marco Camacho on 03-23-2025 MCV (RBC) [Entitic vol] 94.9 fL High 80-94 [facility] Magnesiumon 03-23-2025 Magnesium [Mass/Vol] 1.6 mg/dL Normal 1.5-2.2 [facility] Comment on above: Order Comment: Comme nts: may add to ED labs Performed By: #### L 501.5200 ####[facility] [address] [place], [address] Magnesium measurement (mass/ volume)Ordered By: Merry Pham on 03-23-2025 Magnesium (Unsp spec) [Mass/Vol] 1.6 mg/dL 1.5-2.2 [facility] Mean corpuscular hemoglobin (MCH) determinationOrdered By: Marco Camacho on 03-23-2025 MCH (RBC) [Entitic mass] 32.1 pg High 27.0-32.0 [facility] Mean corpuscular hemoglobin concentration (MCHC) determinationOrdered By: Marco Camacho on 03-23-2025 MCHC (RBC) [Mass/Vol] 33.9 g/dL 32-36 [facility] Mean platelet volume determi nationOrdered By: Marco Camacho on 03-23-2025 Platelet mean volume (Bld) [Entitic vol] 8.9 fL 6.2-12.0 [facility] Monocyte percentageOrdered B y: Marco Camacho on 03-23-2025 Monocytes/100 WBC (Bld) 10.1 % High 0-10 [facility] Natriuretic peptide.B prohor jem N-Terminal [Mass/volume] in Serum or PlasmaOrdered By: Marco Camacho on 03-23-2025 Natriuretic peptide.B prohormone N-Terminal [Mass/Vol] 417 pg/mL <1800 [facility] Comment on above: Heart Failure Unlike ly: < 300 pg/mLHeart Failure Likely< 50 Years: > 450 pg/mL50-75 Years: > 900 pg/mL>75 Years: > 1800 pg/mL Neutrophil percentageOrdered By: Marco Camacho on 03-23-2025 Neutrophils/100 WBC (Bld) 75.3 % High 47-70 [facility] Nucleated red blood cell per centageOrdered By: Marco Camacho on 03-23-2025 Nucleated RBC/100 WBC (Bld) [Ratio] 0 % 0-5 [facility] Platelet countOrdered By: Eric Camacho on 03-23-2025 Platelets (Bld) [#/Vol] 232 10*3/uL 150-450 [facility] Potassium measurement (mass/ volume)Ordered By: Marco Camacho on 03-23-2025 Potassium (Unsp spec) [Mass/Vol] 3.8 mmol/L 3.3-5.1 [facility] RBC Auto (Bld) [#/Vol]Ordere d By: Marco Camacho on 03-23-2025 RBC (Bld) [#/Vol] 3.92 10*6/uL Low 4.6-6.2 [facility] Serum creatinine measurement (mass/volume)Ordered By: Marco Camacho on 03-23-2025 Creatinine [Mass/Vol] 0.84 mg/dL 0.70-1.20 [facility] Serum globulin measurementOr dered By: Marco Camacho on 03-23-2025 Globulin (S) [Mass/Vol] 2.4 g/dL 2.2-4.2 [facility] Serum glucose measurement (m ass/volume)Ordered By: Marco Camacho on 03-23-2025 Glucose [Mass/Vol] 95 mg/dL 70-99 [facility] Serum or plasma alanine gann otransferase (ALT) measurementOrdered By: Marco Camacho on 03-23-2025 ALT [Catalytic activity/Vol] 9 U/L <47 [facility] Serum or plasma albumin jovita urement (mass/volume)Ordered By: Marco Camacho on 03-23-2025 Albumin [Mass/Vol] 3.8 g/dL 3.4-4.8 [facility] Serum or plasma albumin/glob ulin mass ratioOrdered By: Marco Camacho on 03-23-2025 Albumin/Globulin [Mass ratio] 1.5 {ratio} 0.9-2.4 [facility] Serum or plasma alkaline vincent sphatase measurementOrdered By: Marco Camacho on 03-23-2025 ALP [Catalytic activity/Vol] 112 U/L 40-129 [facility] Serum or plasma calcium jovita urement (mass/volume)Ordered By: Marco Camacho on 03-23-2025 Calcium [Mass/Vol] 9.2 mg/dL 7.6-11.0 [facility] Serum or plasma urea nitroge n measurement (mass/volume)Ordered By: Marco Camacho on 03-23-2025 Urea nitrogen [Mass/Vol] 15 mg/dL 4-19 [facility] Sodium levelOrdered By: Tianna Camacho on 03-23-2025 Sodium [Moles/Vol] 144 mmol/L 133-145 [facility] Spine Lumbar without Contras ton 03-23-2025 Spine Lumbar without Contrast [facility] Imaging Services [address] [place], [place] [id number] Spine Lumbar without Contrast MR#: [id number] Acct: [id number] Name: NANCY SY Rep #: [id number] : 1945 M 80 From: Izaiah Baptiste MD PCP: LOIS Resendiz Status: REG ER Study: Spine Lumbar without Contrast Date of Exam: Exam# [id number] Ordering Dr: Marco Camacho DO EXAM: CT Lumbar Spine Without Intravenous Contrast CLINICAL INDICATION: LOW BACK PAIN TECHNIQUE: Axial computed tomography images of the lumbar spine without intravenous contrast. This CT exam was performed using one or more of the following dose reduction techniques: automated exposure control, adjustment of the mA and/or kV according to patient size, and/or use of iterative reconstruction technique. COMPARISON: No relevant prior studies available. FINDINGS: VERTEBRAE: Severe compression deformity of L1 vertebral body, likely chronic. However, this does results in moderate spinal canal stenosis. DISCS/SPINAL CANAL/NEURAL FORAMINA: See above. SOFT TISSUES: Unremarkable. CT/Spine Lumbar without Contrast IMPRESSION: 1. Severe compression deformity of L1 vertebral body, likely chronic. However, this does results in moderate spinal canal stenosis. 2. If symptoms persist, further evaluation with MRI is recommended. Reading Location: [facility] CC: HOUSEKEEPING ROOM INSPECTOR-C Katherine Brand; Dr. Marco Camacho DO Lard Renderer: Signed Normal [facility] Spine Thoracic without Contr ason 03-23-2025 Spine Thoracic without Contras [facility] Imaging Services [address] [place] [address] Spine Thoracic without Contras MR#: [id number] Acct: [id number] Name: NANCY SY Rep #: [id number] : 1945 M 80 From: Izaiah Baptiste MD PCP: LOIS Resendiz Status: REG ER Study: Spine Thoracic without Contras Date of Exam: 0 03/23/25 Exam# [id number] Ordering Dr: Marco Camacho DO EXAM: CT Thoracic Spine Without Intravenous Contrast CLINICAL INDICATION: MID BACK PAIN TECHNIQUE: Axial computed tomography images of the thoracic spine without intravenous contrast. This CT exam was performed using one or more of the following dose reduction techniques: automated exposure control, adjustment of the mA and/or kV according to patient size, and/or use of iterative reconstruction technique. COMPARISON: No relevant prior studies available. FINDINGS: VERTEBRAE: Moderate to severe compression deformity of T9 vertebral body with lucency along the anterior aspect, acute fracture can not be excluded. Severe compression deformity of T11 vertebral body status post vertebroplasty. Moderate compression deformity of the L1 vertebral body. No acute fracture. DISCS/SPINAL CANAL/NEURAL FORAMINA: No acute findings. No significant spinal canal stenosis. SOFT TISSUES: Unremarkable. CT/Spine Thoracic without Contras IMPRESSION: 1. No acute fracture. 2. Moderate to severe compression deformity of T9 vertebral body with lucency along the anterior aspect, acute fracture can not be excluded. Reading Location: [facility] CC: LOIS Brand; Dr. Marco Camacho DO Lard Renderer: Signed Normal [facility] Total proteinOrdered By: Mary Kay Camacho on 03-23-2025 Protein [Mass/Vol] 6.2 g/dL 5.9-8.4 [facility] Troponin T HS 2 HRon 025 Trop T High Sen 27 ng/L High <=22 [facility] Comment on above: Performed By: #### L 499.0042 ####[facility] [address] [place], [address] Troponin T HS 4 HRon 025 Trop T High Sen 28 ng/L High <=22 [facility] Comment on above: Performed By: #### L 499.0043 ####[facility] [address] [place], [address] Troponin T.cardiac [Mass/vol ume] in Serum or Plasma by High sensitivity methodOrdered By: Marco Camacho on 03-23-2025 Troponin T.cardiac High sensitivity method [Mass/Vol] 28 ng/L High <22 [facility] Troponin T.cardiac High sensitivity method [Mass/Vol] 27 ng/L High <22 [facility] Troponin T.cardiac High sensitivity method [Mass/Vol] 33 ng/L High <22 [facility] Venous Duplex Imag/Efrain Extre mon 03-23-2025 Venous Duplex Imag/Efrain Extrem [facility] Imaging Services [address] [place] [address] Venous Duplex Imag/Efrain Extrem MR#: [id number] Acct: [id number] Name: NANCY SY Rep #: [id number] : 1945 M 80 From: Presley Delatorre MD PCP: LOIS Resendiz Status: REG ER Study: Venous Duplex Imag/Efrain Extrem Date of Exam: Exam# [id number] Ordering Dr: Marco Camacho DO PROCEDURE: VENOUS DUPLEX IMAG/EFRAIN EXTREM 03/23/2025 REASON FOR EXAM: M 80 y/o TECHNIQUE: VENOUS DUPLEX IMAG/EFRAIN EXTREM COMPARISON: None. FINDINGS: Normal compressibility and color Doppler flow of the bilateral lower extremities. Edema is visualized in the bilateral calves. US/Venous Duplex Imag/Efrain Extrem IMPRESSION: No DVT. Reading Location: [facility] CC: HOUSEKEEPING ROOM INSPECTOR-C Katherine Brand; Dr. Macro Camacho DO Lard Renderer: Signed Normal [facility] White blood cell (WBC) count Ordered By: Marco Camacho on 03-23-2025 WBC (Bld) [#/Vol] 8.0 10*3/uL 4.4-11.0 [facility] .GFRon 03-10-2025 Estimated Glomerular Filtration Rate 90 ml/min/1.73sqm Normal [facility] Comment on above: Result Comment: Stages of [...] results. Performed By: #### V IDH #### [address] [address] BMPon 03-10-2025 BUN/Creatinine Ratio 26 ratio Normal 7-27 [facility] Comment on above: Order Comment: stat please Performed By: #### V IDH #### [address] [address] Calcium [Mass/Vol] 8.6 mg/dL Normal 8.4-10.2 [facility] Comment on above: Order Comment: stat please Performed By: #### V IDH #### [address] [address] Chloride [Moles/Vol] 103 mmol/L Normal 98-107 [facility] Comment on above: Order Comment: stat please Performed By: #### V IDH #### [address] [address] CO2 [Moles/Vol] 33 mmol/L High 23-31 [facility] Comment on above: Order Comment: stat please Performed By: #### V IDH #### [address] [address] Creatinine [Mass/Vol] 0.81 mg/dL Normal 0.67-1.17 [facility] Comment on above: Order Comment: stat please Performed By: #### V IDH #### [address] [address] Electrolyte Balance 4.0 mEq/L Normal 4.0-15.0 [place] Comment on above: Order Comment: stat please Performed By: #### V IDH #### [address] [address] [place], [place] [address] Glucose [Mass/Vol] 109 mg/dL Normal 83-110 [facility] Comment on above: Order Comment: stat please Performed By: #### V IDH #### [address] [place], [place] [address] Potassium [Moles/Vol] 3.2 mmol/L Low 3.5-5.1 L [facility] Comment on above: Order Comment: stat please Performed By: #### V IDH #### [address] [place], [place] [address] Sodium [Moles/Vol] 140 mmol/L Normal 136-145 [facility] Comment on above: Order Comment: stat please Performed By: #### V IDH #### [address] [place], [place] [address] Urea nitrogen [Mass/Vol] 21 mg/dL High 7-18 [facility] Comment on above: Order Comment: stat please Performed By: #### V IDH #### [address] [address] LABORATORYOrdered By: SYSTEM SYSTEM on 03-10-2025 Calcium [...] Basophil, Absolute 0.1 10 3/mcL Normal 0.0-0.3 [facility] Comment on above: Performed By: #### F ERR, BMP, ANEU, MORPH, TSH, ADIFF, CBC, GFR, FE, FT4 ####[address] [place], [place] [address] Basophils/100 WBC (Bld) 0.5 % Normal 0.0-2.5 [facility] Comment on above: Performed By: #### F ERR, BMP, ANEU, MORPH, TSH, ADIFF, CBC, GFR, FE, FT4 ####[facility] [place], [place] [address] Eosinophil, Absolute 0.2 10 3/mcL Normal 0.0-0.7 [facility] Comment on above: Performed By: #### F ERR, BMP, ANEU, MORPH, TSH, ADIFF, CBC, GFR, FE, FT4 ####[facility] [place], [place] [address] Eosinophils/100 WBC (Bld) 2.5 % Normal 0.0-6.0 [facility] Comment on above: Performed By: #### F ERR, BMP, ANEU, MORPH, TSH, ADIFF, CBC, GFR, FE, FT4 ####[facility] [place], [place] [address] Lymphocyte, Absolute 0.8 10 3/mcL Low 0.9-4.3 [facility] Comment on above: Performed By: #### F ERR, BMP, ANEU, MORPH, TSH, ADIFF, CBC, GFR, FE, FT4 ####[address] [place], [place] [address] Lymphocytes/100 WBC (Bld) 8.3 % Low 20.0-40.0 [facility] Comment on above: Performed By: #### F ERR, BMP, ANEU, MORPH, TSH, ADIFF, CBC, GFR, FE, FT4 ####[address] [place], [place] [address] Monocyte, Absolute 0.6 10 3/mcL Normal 0.1-1.4 [facility] Comment on above: Performed By: #### F ERR, BMP, ANEU, MORPH, TSH, ADIFF, CBC, GFR, FE, FT4 ####[address] [address] Monocytes/100 WBC (Bld) 6.4 % Normal 2.0-13.0 [facility] Comment on above: Performed By: #### F ERR, BMP, ANEU, MORPH, TSH, ADIFF, CBC, GFR, FE, FT4 ####[address] [address] Neutrophils/100 WBC (Bld) 82.3 % High 50.0-75.0 [facility] Comment on above: Performed By: #### F ERR, BMP, ANEU, MORPH, TSH, ADIFF, CBC, GFR, FE, FT4 ####[address] [address] .GFRon 03-09-2025 Estimated Glomerular Filtration Rate 90 ml/min/1.73sqm Normal [facility] Comment on above: Result Comment: Stages of [...] MORPH, TSH, ADIFF, CBC, GFR, FE, FT4 ####[facility] [place], [place] [address] .Morphon 03-09-2025 Platelet Estimate Normal Normal [facility] Comment on above: Performed By: #### F ERR, BMP, ANEU, MORPH, TSH, ADIFF, CBC, GFR, FE, FT4 ####[address] [place], [place] [address] .NEUABSon 03-09-2025 Neutrophil, Absolute 7.9 10 3/mcL Normal 2.3-8.1 [facility] Comment on above: Performed By: #### F ERR, BMP, ANEU, MORPH, TSH, ADIFF, CBC, GFR, FE, FT4 ####[address] [place], [place] [address] BMPon 03-09-2025 BUN/Creatinine Ratio 25 ratio Normal 7-27 [facility] Comment on above: Performed By: #### F ERR, BMP, ANEU, MORPH, TSH, ADIFF, CBC, GFR, FE, FT4 ####[address] [address] Calcium [Mass/Vol] 9.1 mg/dL Normal 8.4-10.2 [facility] Comment on above: Performed By: #### F ERR, BMP, ANEU, MORPH, TSH, ADIFF, CBC, GFR, FE, FT4 ####[address] [address] Chloride [Moles/Vol] 108 mmol/L High 98-107 [facility] Comment on above: Performed By: #### F ERR, BMP, ANEU, MORPH, TSH, ADIFF, CBC, GFR, FE, FT4 ####[address] [address] CO2 [Moles/Vol] 33 mmol/L High 23-31 [facility] Comment on above: Performed By: #### F ERR, BMP, ANEU, MORPH, TSH, ADIFF, CBC, GFR, FE, FT4 ####[address] [address] Creatinine [Mass/Vol] 0.80 mg/dL Normal 0.67-1.17 [facility] Comment on above: Performed By: #### F ERR, BMP, ANEU, MORPH, TSH, ADIFF, CBC, GFR, FE, FT4 ####[address] [address] Electrolyte Balance 8.0 mEq/L Normal 4.0-15.0 [facility] Comment on above: Performed By: #### F ERR, BMP, ANEU, MORPH, TSH, ADIFF, CBC, GFR, FE, FT4 ####[address] [address] Glucose [Mass/Vol] 112 mg/dL High 83-110 [facility] Comment on above: Performed By: #### F ERR, BMP, ANEU, MORPH, TSH, ADIFF, CBC, GFR, FE, FT4 ####[address] [address] Potassium [Moles/Vol] 3.2 mmol/L Low 3.5-5.1 [facility] Comment on above: Performed By: #### F ERR, BMP, ANEU, MORPH, TSH, ADIFF, CBC, GFR, FE, FT4 ####[address] [address] Sodium [Moles/Vol] 149 mmol/L High 136-145 [facility] Comment on above: Performed By: #### F ERR, BMP, ANEU, MORPH, TSH, ADIFF, CBC, GFR, FE, FT4 ####[address] [address] Urea nitrogen [Mass/Vol] 20 mg/dL High 7-18 [facility] Comment on above: Performed By: #### F ERR, BMP, ANEU, MORPH, TSH, ADIFF, CBC, GFR, FE, FT4 ####[address] [address] CBCon 03-09-2025 Erythrocyte distribution width (RBC) [Ratio] 14.2 % Normal 11.5-15.5 [facility] Comment on above: Performed By: #### F ERR, BMP, ANEU, MORPH, TSH, ADIFF, CBC, GFR, FE, FT4 ####[address] [id number] Hematocrit (Bld) [Volume fraction] 40.6 % Normal 40.0-52.0 [facility] Comment on above: Performed By: #### F ERR, BMP, ANEU, MORPH, TSH, ADIFF, CBC, GFR, FE, FT4 ####[address] [address] Hgb 13.8 G/dL Normal 13.0-17.5 [facility] Comment on above: Performed By: #### F ERR, BMP, ANEU, MORPH, TSH, ADIFF, CBC, GFR, FE, FT4 ####[address] [address] MCH (RBC) [Entitic mass] 31.9 pg Normal 27.0-33.0 [facility] Comment on above: Performed By: #### F ERR, BMP, ANEU, MORPH, TSH, ADIFF, CBC, GFR, FE, FT4 ####[address] [address] MCHC 34.0 G/dL Normal 32.0-36.0 [facility] Comment on above: Performed By: #### F ERR, BMP, ANEU, MORPH, TSH, ADIFF, CBC, GFR, FE, FT4 ####[place] [id number] MCV (RBC) [Entitic vol] 93.9 fL Normal 81.0-100.0 [facility] Comment on above: Performed By: #### F ERR, BMP, ANEU, MORPH, TSH, ADIFF, CBC, GFR, FE, FT4 ####[facility] [place], [place] [address] Platelet 281 10 3/mcL Normal 150-450 [facility] Comment on above: Performed By: #### F ERR, BMP, ANEU, MORPH, TSH, ADIFF, CBC, GFR, FE, FT4 ####[address] [address] Platelet mean volume (Bld) [Entitic vol] 7.1 fL Normal 6.4-10.5 [facility] Comment on above: Performed By: #### F ERR, BMP, ANEU, MORPH, TSH, ADIFF, CBC, GFR, FE, FT4 ####[address] [place] [id number] RBC 4.33 10 6/mcL Low 4.50-6.00 [facility] Comment on above: Performed By: #### F ERR, BMP, ANEU, MORPH, TSH, ADIFF, CBC, GFR, FE, FT4 ####[address] [address] WBC 9.7 10 3/mcL Normal 4.5-10.8 [facility] Comment on above: Performed By: #### F ERR, BMP, ANEU, MORPH, TSH, ADIFF, CBC, GFR, FE, FT4 ####[address] [address] FEon 03-09-2025 Iron [Mass/Vol] 83 ug/dL Normal 65-175 [facility] Comment on above: Performed By: #### F ERR, BMP, ANEU, MORPH, TSH, ADIFF, CBC, GFR, FE, FT4 ####[address] [address] [place] 03-09-2025 Ferritin [Mass/Vol] 731.0 ng/mL High 26.0-388.0 [facility] Comment on above: Performed By: #### F ERR, BMP, ANEU, MORPH, TSH, ADIFF, CBC, GFR, FE, FT4 ####[place] [address] [place], [place] [address] FT4on 03-09-2025 Free T4 [Mass/Vol] 1.12 ng/dL Normal 0.76-1.46 [facility] Comment on above: Performed By: #### F ERR, BMP, ANEU, MORPH, TSH, ADIFF, CBC, GFR, FE, FT4 ####[place] [address] [place], [place] [address] LABORATORYOrdered By: SYSTEM SYSTEM on 03-09-2025 Basophils [...] 03-09-2025 TSH Qn 1.32 m[IU]/L Normal 0.36-3.74 [facility] Comment on above: Performed By: #### F ERR, BMP, ANEU, MORPH, TSH, ADIFF, CBC, GFR, FE, FT4 ####[address] [place], [place] [address] MYCOon 02-26-2025 Mycoplasma IgG Negative Normal [facility] Comment on above: Result Comment: INTE RPRETATION OF MYCOPLASMA IgG BY EIA: Negative: No detectable M. pneumoniae IgG antibody. Positive: Mycoplasma pneumoniae IgG antibody Detected. Equivocal: Equivocal for IgG antibodies to Mycoplasma pneumoniae. Suggest repeat testing in 10-14 days. Performed By: #### V IDH #### [facility] [address] [place], [place] [address] MRSAPCRon 02-24-2025 MRSA (PCR) Not detected Normal Not Detected [facility] Comment on above: Order Comment: 2024 16:17:44 EDT @AO Notified SAMANTHA Dowell of unlabeled specimen and recollect. [facility] Result Comment: Note s [id number] Performed By: #### M RSAPCR, RESCVID #### [facility] [address] [place] [id number] MRSA PCR Int See Below Normal [facility] Comment on above: Order Comment: 2024 16:17:44 EDT @AO Notified SAMANTHA Dowell of unlabeled specimen and recollect. [facility] Result Comment: Clinical Interpretation: MRSA DNA not [...] Performed By: #### M RSAPCR, RESCVID #### [place] [address] .Auto Diffon 02-23-2025 Basophil, Absolute 0.1 10 3/mcL Normal 0.0-0.3 [facility] Comment on above: Performed By: #### A DIFF, GFR, CBC, CMP, MG, ANEU #### [address] [address] Lymphocyte, Absolute 0.7 10 3/mcL Low 0.9-4.3 [facility] Comment on above: Performed By: #### A DIFF, GFR, CBC, CMP, MG, ANEU #### [address] [address] Monocyte, Absolute 1.0 10 3/mcL Normal 0.1-1.4 [facility] Comment on above: Performed By: #### A DIFF, GFR, CBC, CMP, MG, ANEU #### [address] [address] .Auto DiffOrdered By: SYSTEM SYSTEM on 02-23-2025 Basophils/100 WBC (Bld) 0.6 % Normal 0.0-2.5 A O Workflow SS Comment on above: Performed By: #### A DIFF, GFR, CBC, CMP, MG, ANEU #### [address] [address] Eosinophil, Absolute 0.1 103/mcL Normal 0.0-0.7 [facility] Comment on above: Performed By: #### A DIFF, GFR, CBC, CMP, MG, ANEU #### [address] [address] Eosinophils/100 WBC (Bld) 1.1 % Normal 0.0-6.0 [facility] Comment on above: Performed By: #### A DIFF, GFR, CBC, CMP, MG, ANEU #### [address] [address] Lymphocytes/100 WBC (Bld) 6.9 % Low 20.0-40.0 [facility] Comment on above: Performed By: #### A DIFF, GFR, CBC, CMP, MG, ANEU #### [address] [address] Monocytes/100 WBC (Bld) 9.4 % Normal 2.0-13.0 A O Workflow SS Comment on above: Performed By: #### A DIFF, GFR, CBC, CMP, MG, ANEU #### [address] [address] Neutrophils/100 WBC (Bld) 82.0 % High 50.0-75.0 [facility] SS Comment on above: Performed By: #### A DIFF, GFR, CBC, CMP, MG, ANEU #### [address] [address] .GFRon 02-23-2025 Estimated Glomerular Filtration Rate 95 ml/min/1.73sqm Normal [facility] Comment on above: Result Comment: Stages of [...] Performed By: #### M RSAPCR, RESCVID #### [address] [address] .NEUABSon 02-23-2025 Neutrophil, Absolute 8.8 10 3/mcL High 2.3-8.1 [facility] Comment on above: Performed By: #### M RSAPCR, RESCVID #### [facility] [address] [place] [address] CBCon 02-23-2025 Hgb 12.9 G/dL Low 13.0-17.5 [facility] Comment on above: Performed By: #### A DIFF, GFR, CBC, CMP, MG, ANEU #### [address] [address] Platelet 204 10 3/mcL Normal 150-450 [facility] Comment on above: Performed By: #### A DIFF, GFR, CBC, CMP, MG, ANEU #### [address] [address] RBC 3.96 10 6/mcL Low 4.50-6.00 [facility] Comment on above: Performed By: #### A DIFF, GFR, CBC, CMP, MG, ANEU #### [address] [address] WBC 10.8 10 3/mcL Normal 4.5-10.8 [facility] Comment on above: Performed By: #### A DIFF, GFR, CBC, CMP, MG, ANEU #### [address] [address] CBCOrdered By: SYSTEM SYSTEM on 02-23-2025 Erythrocyte distribution width (RBC) [Ratio] 14.4 % Normal 11.5-15.5 AO Workflow SS Comment on above: Performed By: #### A DIFF, GFR, CBC, CMP, MG, ANEU #### [address] [address] Hematocrit (Bld) [Volume fraction] 37.0 % Low 40.0-52.0 [facility] Workflow SS Comment on above: Performed By: #### A DIFF, GFR, CBC, CMP, MG, ANEU #### [address] [address] MCH (RBC) [Entitic mass] 32.5 pg Normal 27.0-33.0 AO Workflow SS Comment on above: Performed By: #### A DIFF, GFR, CBC, CMP, MG, ANEU #### [address] [address] MCHC 34.7 G/dL Normal 32.0-36.0 AO Workflow SS Comment on above: Performed By: #### A DIFF, GFR, CBC, CMP, MG, ANEU #### [address] [address] MCV (RBC) [Entitic vol] 93.5 fL Normal 81.0-100.0 A O Workflow SS Comment on above: Performed By: #### A DIFF, GFR, CBC, CMP, MG, ANEU #### [address] [address] Platelet mean volume (Bld) [Entitic vol] 6.8 fL Normal 6.4-10.5 [facility] Comment on above: Performed By: #### A DIFF, GFR, CBC, CMP, MG, ANEU #### [address] [address] CMPon 02-23-2025 Albumin Level 3.2 G/dL Low 3.4-4.8 [facility] Comment on above: Performed By: #### M RSAPCR, RESCVID #### [address] [address] Albumin/Globulin [Mass ratio] 1.0 {ratio} Low 1.1-2.5 [facility] Comment on above: Performed By: #### M RSAPCR, RESCVID #### [address] [address] ALP [Catalytic activity/Vol] 67 U/L Normal 40-135 [facility] Comment on above: Performed By: #### M RSAPCR, RESCVID #### [address] [address] ALT [Catalytic activity/Vol] 15 U/L Low 16-63 [facility] Comment on above: Performed By: #### M RSAPCR, RESCVID #### [address] [address] AST [Catalytic activity/Vol] 15 U/L Normal 10-40 [facility] Comment on above: Performed By: #### M RSAPCR, RESCVID #### [address] [address] Bili Total 0.7 mg/dL Normal 0.2-1.0 [facility] Comment on above: Result Comment: Use of this assay is not recommended for patients undergoing treatment with eltrombopag due to the potential for falsely elevated results. Performed By: #### M RSAPCR, RESCVID #### [place] [address] BUN/Creatinine Ratio 37 ratio High 7-27 [facility] Comment on above: Performed By: #### M RSAPCR, RESCVID #### [place] [address] Calcium [Mass/Vol] 8.0 mg/dL Low 8.4-10.2 [facility] Comment on above: Performed By: #### M RSAPCR, RESCVID #### [place] [id number] Chloride [Moles/Vol] 109 mmol/L High 98-107 [facility] Comment on above: Performed By: #### M RSAPCR, RESCVID #### [place] [address] CO2 [Moles/Vol] 27 mmol/L Normal 23-31 [facility] Comment on above: Performed By: #### M RSAPCR, RESCVID #### [place] [id number] Creatinine [Mass/Vol] 0.67 mg/dL Normal 0.67-1.17 [facility] Comment on above: Performed By: #### M RSAPCR, RESCVID #### [place] [address] Electrolyte Balance 8.0 mEq/L Normal 4.0-15.0 [facility] Comment on above: Performed By: #### M RSAPCR, RESCVID #### [place] [address] Globulin 3.2 G/dL Normal 2.7-4.4 [facility] Comment on above: Performed By: #### M RSAPCR, RESCVID #### [address] [address] Glucose [Mass/Vol] 107 mg/dL Normal 83-110 [facility] Comment on above: Performed By: #### M RSAPCR, RESCVID #### [address] [address] Potassium [Moles/Vol] 3.4 mmol/L Low 3.5-5.1 [facility] Comment on above: Performed By: #### M RSAPCR, RESCVID #### [address] [address] Sodium [Moles/Vol] 144 mmol/L Normal 136-145 [facility] Comment on above: Performed By: #### M RSAPCR, RESCVID #### [address] [address] Total Protein 6.4 G/dL Normal 6.4-8.2 [facility] Comment on above: Performed By: #### M RSAPCR, RESCVID #### [address] [address] Urea nitrogen [Mass/Vol] 25 mg/dL High 7-18 [facility] Comment on above: Performed By: #### M RSAPCR, RESCVID #### [address] [address] [address] ANGIOGRAPHY CHEST W/CONTR Diana 02-23-2025 CT [...] 02/23/2025 4:22:10 PM Ordering Provider: OSMEL BURRELL Normal [facility] LABORATORYOrdered By: Rosa Zuniga on 02-23-2025 MRSA (PCR) Not Detected 1 (02/23/25 4:33 PM) Normal Not Detected [facility] Comment on above: Result Comment: [place] [id number] MRSA PCR Int See Below 2 *NA* [...] (S) Negative 11 (02/23/25 5:52 AM) Normal [facility] Comment on above: Interpretive Data: I NTERPRETATION OF MYCOPLASMA IgM: Negative: IgM to M. pneumoniae Absent, or at levels below the assay limit of detection. Positive: IgM to M. pneumoniae Present. Invalid: Test results are invalid due to invalid internal control. Assay was performed in duplicate. Repeat testing is suggested if clinically indicated. MGon 02-23-2025 Magnesium [Mass/Vol] 2.2 mg/dL Normal 1.8-2.4 [facility] Comment on above: Performed By: #### M RSAPCR, RESCVID #### [place] [address] MYCOon 02-23-2025 Mycoplasma IgM Negative Normal [facility] Comment on above: Result Comment: INTE RPRETATION OF MYCOPLASMA IgM: Negative: IgM to M. pneumoniae Absent, or at levels below the assay limit of detection. Positive: IgM to M. pneumoniae Present. Invalid: Test results are invalid due to invalid internal control. Assay was performed in duplicate. Repeat testing is suggested if clinically indicated. Performed By: #### V IDH #### [facility] [address] [place], [place] [address] RESCVIDon 02-23-2025 Adenovirus Not detected Normal Not Detected [facility] Comment on above: Performed By: #### M RSAPCR, RESCVID #### [facility] [address] [place] [address] Bordetella Parapertussis Not detected Normal Not Detected [facility] Comment on above: Performed By: #### M RSAPCR, RESCVID #### [facility] [address] [place] [address] Bordetella Pertussis Not detected Normal Not Detected [facility] Comment on above: Performed By: #### M RSAPCR, RESCVID #### [facility] [address] [place] [address] Chlamydophila pneumoniae Not detected Normal Not Detected [facility] Comment on above: Performed By: #### M RSAPCR, RESCVID #### [facility] [address] [place] [address] Coronavirus 229E (Not COVID-19) Not detected Normal Not Detected [facility] Comment on above: Performed By: #### M RSAPCR, RESCVID #### [facility] [address] [place] [address] Coronavirus HKU1 (Not COVID-19) Not detected Normal Not Detected [facility] Comment on above: Performed By: #### M RSAPCR, RESCVID #### [facility] [address] [place] [address] Coronavirus NL63 (Not COVID-19) Not detected Normal Not Detected [facility] Comment on above: Performed By: #### M RSAPCR, RESCVID #### [facility] [address] [place] [address] Coronavirus OC43 (Not COVID-19) Not detected Normal Not Detected [facility] Comment on above: Performed By: #### M RSAPCR, RESCVID #### [facility] [address] [place] [address] Human Metapneumovirus Not detected Normal Not Detected [facility] Comment on above: Performed By: #### M RSAPCR, RESCVID #### [facility] [address] [place] [address] Influenza A Not detected Normal Not Detected [facility] Comment on above: Performed By: #### M RSAPCR, RESCVID #### [facility] [address] [place] [address] Influenza B Not detected Normal Not Detected [facility] Comment on above: Performed By: #### M RSAPCR, RESCVID #### [facility] [address] [place] [address] Mycoplasma pneumoniae Not detected Normal Not Detected [facility] Comment on above: Performed By: #### M RSAPCR, RESCVID #### [facility] [address] [place] [address] Parainfluenza 1 Not detected Normal Not Detected [facility] Comment on above: Performed By: #### M RSAPCR, RESCVID #### [facility] [address] [place] [address] Parainfluenza 2 Not detected Normal Not Detected [facility] Comment on above: Performed By: #### M RSAPCR, RESCVID #### [facility] [address] [place] [address] Parainfluenza 3 Not detected Normal Not Detected [facility] Comment on above: Performed By: #### M RSAPCR, RESCVID #### [facility] [address] [place] [address] Parainfluenza 4 Not detected Normal Not Detected [facility] Comment on above: Performed By: #### M RSAPCR, RESCVID #### [facility] [address] [place] [address] Respiratory Syncytial Virus Not detected Normal Not Detected [facility] Comment on above: Performed By: #### M RSAPCR, RESCVID #### [facility] [address] [place] [address] Rhinovirus/Enterovirus Not detected Normal Not Detecte d [facility] Comment on above: Performed By: #### M RSAPCR, RESCVID #### [address] [address] SARS-CoV-2 (COVID-19) RNA DARYA+probe Ql (Unsp spec) Not detected Normal Not Detected [facility] Comment on above: Result Comment: This assay has been validated in the [facility] for use with nasopharyngeal specimens in [facility]. If a non-validated specimen or test [...] Performed By: #### M RSAPCR, RESCVID #### [address] [address] XR ABDOMEN APon 02-23-2025 XR ABDOMEN AP [...] Date: 02/23/2025 11:03:02 AM Ordering Provider: THAO Smallwood [facility] .Auto Diffon 02-22-2025 Basophil, Absolute 0.0 10 3/mcL Normal 0.0-0.3 [facility] Comment on above: Performed By: #### M RSAPCR, RESCVID #### [address] [address] Basophils/100 WBC (Bld) 0.4 % Normal 0.0-2.5 [facility] Comment on above: Performed By: #### M RSAPCR, RESCVID #### [address] [address] Eosinophil, Absolute 0.2 10 3/mcL Normal 0.0-0.7 [facility] Comment on above: Performed By: #### M RSAPCR, RESCVID #### [address] [address] Eosinophils/100 WBC (Bld) 1.8 % Normal 0.0-6.0 [facility] Comment on above: Performed By: #### M RSAPCR, RESCVID #### [address] [address] Lymphocyte, Absolute 0.8 10 3/mcL Low 0.9-4.3 [facility] Comment on above: Performed By: #### M RSAPCR, RESCVID #### [address] [address] Lymphocytes/100 WBC (Bld) 6.3 % Low 20.0-40.0 [facility] Comment on above: Performed By: #### M RSAPCR, RESCVID #### [address] [address] Monocyte, Absolute 1.2 10 3/mcL Normal 0.1-1.4 [facility] Comment on above: Performed By: #### M RSAPCR, RESCVID #### [address] [address] Monocytes/100 WBC (Bld) 9.5 % Normal 2.0-13.0 [facility] Comment on above: Performed By: #### M RSAPCR, RESCVID #### [address] [address] Neutrophils/100 WBC (Bld) 82.0 % High 50.0-75.0 [facility] Comment on above: Performed By: #### M RSAPCR, RESCVID #### [address] [address] .GFRon 02-22-2025 Estimated Glomerular Filtration Rate 91 ml/min/1.73sqm Normal [facility] Comment on above: Result Comment: Stages of [...] results. Performed By: #### V IDH #### [facility] [address] [place], [place] [address] .MDWon 02-22-2025 Monocyte Distribution Width 19.17 Normal 0.00-20.00 [facility] Comment on above: Result Comment: For ED adult patients suspected of sepsis, MDW<=20.0 does not rule out sepsis or risk of sepsis Performed By: #### M RSAPCR, RESCVID #### [address] [address] .NEUABSon 02-22-2025 Neutrophil, Absolute 10.5 10 3/mcL High 2.3-8.1 [facility] Comment on above: Performed By: #### M RSAPCR, RESCVID #### [address] [address] BMPon 02-22-2025 BUN/Creatinine Ratio 38 ratio High 7-27 [facility] Comment on above: Performed By: #### M RSAPCR, RESCVID #### [address] [address] Calcium [Mass/Vol] 9.0 mg/dL Normal 8.4-10.2 [facility] Comment on above: Performed By: #### M RSAPCR, RESCVID #### [address] [address] Chloride [Moles/Vol] 106 mmol/L Normal 98-107 [facility] Comment on above: Performed By: #### M RSAPCR, RESCVID #### [address] [address] CO2 [Moles/Vol] 28 mmol/L Normal 23-31 [facility] Comment on above: Performed By: #### M RSAPCR, RESCVID #### [address] [address] Creatinine [Mass/Vol] 0.77 mg/dL Normal 0.67-1.17 [facility] Comment on above: Performed By: #### M RSAPCR, RESCVID #### [address] [address] Electrolyte Balance 8.0 mEq/L Normal 4.0-15.0 [facility] Comment on above: Performed By: #### M RSAPCR, RESCVID #### [address] [address] Glucose [Mass/Vol] 128 mg/dL High 83-110 [facility] Comment on above: Performed By: #### M RSAPCR, RESCVID #### [address] [address] Potassium [Moles/Vol] 3.7 mmol/L Normal 3.5-5.1 [facility] Comment on above: Performed By: #### M RSAPCR, RESCVID #### [place] [address] Sodium [Moles/Vol] 142 mmol/L Normal 136-145 [facility] Comment on above: Performed By: #### M RSAPCR, RESCVID #### [place] [address] Urea nitrogen [Mass/Vol] 29 mg/dL High 7-18 [facility] Comment on above: Performed By: #### M RSAPCR, RESCVID #### [place] [id number] CBCon 02-22-2025 Erythrocyte distribution width (RBC) [Ratio] 14.1 % Normal 11.5-15.5 [facility] Comment on above: Performed By: #### M RSAPCR, RESCVID #### [place] [address] Hematocrit (Bld) [Volume fraction] 41.7 % Normal 40.0-52.0 [facility] Comment on above: Performed By: #### M RSAPCR, RESCVID #### [place] [address] Hgb 14.1 G/dL Normal 13.0-17.5 [facility] Comment on above: Performed By: #### M RSAPCR, RESCVID #### [place] [id number] MCH (RBC) [Entitic mass] 32.0 pg Normal 27.0-33.0 [facility] Comment on above: Performed By: #### M RSAPCR, RESCVID #### [place] [address] MCHC 33.9 G/dL Normal 32.0-36.0 [facility] Comment on above: Performed By: #### M RSAPCR, RESCVID #### [place] [id number] MCV (RBC) [Entitic vol] 94.3 fL Normal 81.0-100.0 [facility] Comment on above: Performed By: #### M RSAPCR, RESCVID #### [address] [address] Platelet 240 10 3/mcL Normal 150-450 [facility] Comment on above: Performed By: #### M RSAPCR, RESCVID #### [place] [address] Platelet mean volume (Bld) [Entitic vol] 7.2 fL Normal 6.4-10.5 [facility] Comment on above: Performed By: #### M RSAPCR, RESCVID #### [address] [address] RBC 4.42 10 6/mcL Low 4.50-6.00 [facility] Comment on above: Performed By: #### M RSAPCR, RESCVID #### [address] [address] WBC 12.8 10 3/mcL High 4.5-10.8 [facility] Comment on above: Performed By: #### M RSAPCR, RESCVID #### [place] [address] CVFLURVon 02-22-2025 FLU A PCR Negative Normal Negative [facility] Comment on above: Performed By: #### C VFLURV ####[place] [address] FLU B PCR Negative Normal Negative [facility] Comment on above: Performed By: #### C VFLURV ####[place] [address] [place], [place] [address] RSV PCR Negative Normal Negative [facility] Comment on above: Performed By: #### C VFLURV ####[place] [address] [place], [place] [address] SARS-CoV-2 (COVID-19) RNA DARYA+probe Ql (Unsp spec) Negative Normal Negative [facility] Comment on above: Result Comment: Resu lts [...] results. Performed By: #### C VFLURV ####[place] [id number] [place], [place] [address] LABORATORYOrdered By: Fili Sotelo on 02-22-2025 Adenovirus DNA DARYA+non-probe Ql (Nph) Not Detected *NA* (02/22/25 6:51 PM) Invalid Interpretation Code Not Detected [facility] Auto Viro/Sero SS B. parapertussis [id number] DNA DARYA+non-probe Ql (Nph) Not Detected *NA* [...] Code Not Detected [facility] Auto [facility]iro/Sero SS Rhinovirus+Enterovirus RNA DARYA+non-probe Ql (Nph) Not Detected *NA* [...] his assay has been validated in the [facility] for use with nasopharyngeal specimens in [facility]. If a non-validated specimen or test [...] ng/L Male: 0-76 ng/L Testing performed on Viss using a homogeneous sandwich chemiluminescent immunoassay based on [employer] technology. Urea nitrogen [Mass/Vol] 29 mg/dL High [...] serogroups and species may also cause disease. [facility] Microscopic examination of blood, culture Culture has been received in lab and is no growth to date. Routine cultures are held for 5 days. [facility] Streptococcus Pneumoniae Urine Antig Presumptive negative for pneumococcal pneumonia, suggesting no current or recent pneumococcal infection. Infection due to Strep pneumoniae cannot be ruled out since the antigen present in the sample may be below the detection limit of the test. [facility] Comment on above: This test has not be en evaluated on patients taking antibiotics for greater than 24 hours or on patients who have recently completed an antibiotic regimen. The accuracy of this test has not been proven in young children. PBNPon 02-22-2025 Natriuretic peptide B (Bld) [Mass/Vol] 303 pg/mL Normal 0-450 [facility] Comment on above: Result Comment: NT-p roBNP results of less than 300 pg/mL effectively rules out acute congestive heart failure with 99% negative predictive value. Performed By: #### V IDH #### [facility] [address] [place], [place] [address] [facility] 02-22-2025 High Sensitivity Troponin I 9 ng/L Normal 0-76 [facility] Comment on above: Result Comment: High Sensitive Troponin I Reference Ranges: Female: 0-51 ng/L Male: 0-76 ng/L Testing performed on Viss using a homogeneous sandwich chemiluminescent immunoassay based on [employer] technology. Performed By: #### M RSAPCR, RESCVID #### [facility] [address] [place] [address] UAon 02-22-2025 Color (U) Yellow Normal [facility] Comment on above: Performed By: #### U AMIC, UA ####[place] [address] [place], [place] [address] Glucose (U) [Mass/Vol] Negative Normal Negative [facility] Comment on above: Performed By: #### U AMIC, UA ####[place] [address] [place] [id number] Ketones Ql (U) 15 mg/dL Abnormal Negative [facility] Comment on above: Performed By: #### U AMIC, UA ####[facility] [address] [place] [address] UA Appear Clear Normal Clear [facility] Comment on above: Performed By: #### U AMIC, UA ####[address] [place] [address] UA Bili Moderate Abnormal Negative [facility] Comment on above: Performed By: #### U AMIC, UA ####[address] [place] [address] UA Blood Negative Normal Negative [facility] Comment on above: Performed By: #### U AMIC, UA ####[place] [address] [place] [address] UA Leuk Est Negative Normal Negative [facility] Comment on above: Performed By: #### U AMIC, UA ####[address] [place], [place] [address] UA Nitrite Negative Normal Negative [facility] Comment on above: Performed By: #### U AMIC, UA ####[place] [address] [place] [address] UA pH 6.0 Normal 5.0 - 8.0 [facility] Comment on above: Performed By: #### U AMIC, UA ####[place] [address] [place] [address] UA Protein 30 mg/dL Normal Negative [facility] Comment on above: Performed By: #### U AMIC, UA ####[place] [address] [place] [id number] UA Spec Grav 1.025 Normal 1.015-1.025 [facility] Comment on above: Performed By: #### U AMIC, UA ####[id number] [place], [place] [address] UA Specimen Type Void Normal [facility] Comment on above: Performed By: #### U AMIC, UA ####[facility] [address] [place], [place] [address] UA Urobilinogen 2.0 E.U./dL Abnormal 0.2-1.0 [facility] Comment on above: Performed By: #### U AMIC, UA ####[address] [place], [place] [address] UAMICon 02-22-2025 UA RBC 3-5 Abnormal 0-2 [facility] Comment on above: Performed By: #### U AMIC, UA ####[address] [place], [place] [address] UA Squam Epithelial Negative Normal 0-20 [facility] Comment on above: Performed By: #### U AMIC, UA ####[address] [place], [place] [address] UA WBC 0-2 Normal 0-5 [facility] Comment on above: Performed By: #### U AMIC, UA ####[address] [address] [place], [place] [address] XR CHEST 1 VIEWon 02-22-2025 XR CHEST [...] 02/22/2025 7:30:02 PM Ordering Provider: BRYN Smallwood [facility] L/S Spine Min 4 Viewson 10-30 L/S Spine Min 4 Views [facility] Imaging Services [address] [place], [place] [address] L/S Spine Min 4 Views MR#: [id number] Acct: [id number] Name: NANCY SY Rep #: [id number] : 1945 M [id number] From: Izaiah Fontanez MD PCP: LOIS Resendiz Status: DEP AMB Study: L/S Spine Min 4 Views Date of Exam: 11/09/24 Exam# [id number] Ordering Dr: Brody Malhotra MD PROCEDURE: L/S SPINE MIN 4 VIEWS (RADSPLS), 11/09/2024 REASON FOR EXAM: HX OF FX, PAIN TECHNIQUE: AP, lateral, bilateral oblique, and lateral flexion/extension views of the lumbar spine were obtained. COMPARISON: None FINDINGS: Fracture/dislocation : Severe L1 anterior wedge compression deformity with roughly 60-70% loss of anterior vertebral body height. Severe anterior wedge compression deformity at T11, with roughly 80-90% loss of anterior vertebral body height, post kyphoplasty/vertebro plasty at that level. Vertebral body heights: As [...] L1 compression deformities as described, post T11 kyphoplasty/vertebro plasty. Correlate with history and point tenderness. Comparison with any available outside imaging would also be helpful. 2. Multiple level spondylosis and additional description as above. Reading Location: [id number] CC: LOIS Brand; Dr. Brody Malhotra MD Lard Renderer: Signed Normal [facility] Thoracic Spine Min 4 Viewson 11-09-2024 Thoracic Spine Min 4 Views [facility] Imaging Services [address] [place] [address] Thoracic Spine Min 4 Views MR#: [id number] Acct: [id number] Name: NANCY SY Rep #: [id number] : 1945 79 From: Izaiah Fontanez MD PCP: LOIS Resendiz Status: DEP AMB Study: Thoracic Spine Min 4 Views Date of Exam: 11/09 Exam# [id number] Ordering Dr: Brody Malhotra MD PROCEDURE: THORACIC SPINE MIN 4 VIEWS (RADSPT4), 11/09/2024 REASON FOR EXAM: HX OF FX, PAIN TECHNIQUE: AP, lateral, lateral flexion and extension, bilateral oblique, and swimmer's views of the thoracic spine were obtained. COMPARISON: None FINDINGS: Fracture/dislocation : Severe T11 anterior wedge compression deformity with roughly 80-90% loss of anterior vertebral body height post kyphoplasty/vertebro plasty. L1 compression deformity better depicted on concurrent [...] L1 anterior wedge compression deformity post T11 kyphoplasty/vertebro plasty. Correlate with history and point tenderness. Comparison with any available outside imaging would be helpful. 2. Multilevel spondylosis at additional description as above. Reading Location: [id number] CC: LOIS Brand; Dr. 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: [employer] date: 02/28/27 Dose of injection: 1 mL Site of injection: Sub-Q Medication Given: Yes Is this a patient provided medication?: No Office Meds Prolia 60 mg/mL subcutaneous syringe Performing Provider: Amber Greenwood MD Performing Location: [facility] Administered by: Norma Quezada RN on 10/21/24 15:55 Dose Route Admin Location Dispensed Lot Number Expiration Date NDC Man ufacturer 60 mg subcut Left arm 1 mL [id number] 02/28/27 94188-919-12 [employer] Assessment and Plan Assessment and Plan [...] Cosigner Signature: Date (if applicable) CC: Normal [facility] TFTESTon 10-14-2024 Free Testost Direct 1.8 pg/mL Low 6.6-18.1 [place] Comment on above: Result Comment: Perf ormed At: [facility] [address] [id number] Dominick Rae MD Ph:[phone] Performed At: [facility] [address] [id number] Ernesto Vigil PhD Ph:[phone] Performed By: #### 1 [address], CAROLA ####[place] [address]#### PTH ####[place] [address] Testosterone Lvl 489 ng/dL Normal 264-916 [facility] Comment on above: Result Comment: Adul t male reference interval is based on a population of healthy nonobese males (BMI <30) between 19 and 39 years old. Yamilex et.al. JCEM 2017,102;8111-2734. PMID: [id number]. Performed By: #### 1 39542, CAROLA ####[place] [address]#### PTH ####[place] [address] .Auto Diffon 10-08-2024 Basophil, Absolute 0.1 10 3/mcL Normal 0.0-0.2 [facility] Comment on above: Performed By: #### A SHERRELL, ADIFF, GFR, LIPID, CBC, PSA, CMP ####[address] [address] Basophils/100 WBC (Bld) 0.8 % Normal 0.0-2.5 [facility] Comment on above: Performed By: #### A SHERRELL, ADIFF, GFR, LIPID, CBC, PSA, CMP ####[address] [address] Eosinophil, Absolute 0.5 10 3/mcL Normal 0.0-0.7 [facility] Comment on above: Performed By: #### A SHERRELL, ADIFF, GFR, LIPID, CBC, PSA, CMP ####[address] [address] Eosinophils/100 WBC (Bld) 7.6 % High 0.0-7.0 [facility] Comment on above: Performed By: #### A SHERRELL, ADIFF, GFR, LIPID, CBC, PSA, CMP ####[address] [address] Lymphocyte, Absolute 1.1 10 3/mcL Normal 0.9-4.3 [facility] Comment on above: Performed By: #### A SHERRELL, ADIFF, GFR, LIPID, CBC, PSA, CMP ####[address] [address] Lymphocytes/100 WBC (Bld) 15.7 % Low 20.0-40.0 [facility] Comment on above: Performed By: #### A SHERRELL, ADIFF, GFR, LIPID, CBC, PSA, CMP ####[address] [address] Monocyte, Absolute 0.8 10 3/mcL Normal 0.1-1.4 [facility] Comment on above: Performed By: #### A SHERRLEL, ADIFF, GFR, LIPID, CBC, PSA, CMP ####[address] [address] Monocytes/100 WBC (Bld) 11.4 % Normal 2.0-13.0 [facility] Comment on above: Performed By: #### A SHERRELL, ADIFF, GFR, LIPID, CBC, PSA, CMP ####[place] [address] [place], [place] [address] Neutrophils/100 WBC (Bld) 64.5 % Normal 50.0-75.0 [facility] Comment on above: Performed By: #### A SHERRELL, ADIFF, GFR, LIPID, CBC, PSA, CMP ####[place] [address] [place], [place] [address] .GFRon 10-08-2024 Estimated Glomerular Filtration Rate 87 ml/min/1.73sqm Normal [facility] Comment on above: Result Comment: Stages of [...] SHERRELL, ADIFF, GFR, LIPID, CBC, PSA, CMP ####[place] [address] [place], [place] [address] .NEUABSon 10-08-2024 Neutrophil, Absolute 4.5 10 3/mcL Normal 2.3-8.1 [facility] Comment on above: Performed By: #### A SHERRELL, ADIFF, GFR, LIPID, CBC, PSA, CMP ####[facility] [place], [place] [address] CBCon 10-08-2024 Erythrocyte distribution width (RBC) [Ratio] 13.7 % Normal 11.5-15.5 [facility] Comment on above: Performed By: #### A SHERRELL, ADIFF, GFR, LIPID, CBC, PSA, CMP ####[place] [address] [place] [address] Hematocrit (Bld) [Volume fraction] 39.2 % Low 40.0-52.0 [facility] Comment on above: Performed By: #### A SHERRELL, ADIFF, GFR, LIPID, CBC, PSA, CMP ####[place] [address] [place] [id number] Hgb 13.6 G/dL Normal 13.0-17.5 [facility] Comment on above: Performed By: #### A SHERRELL, ADIFF, GFR, LIPID, CBC, PSA, CMP ####[place] [address] MCH (RBC) [Entitic mass] 32.2 pg Normal 27.0-33.0 [facility] Comment on above: Performed By: #### A SHERRELL, ADIFF, GFR, LIPID, CBC, PSA, CMP ####[place] [address] MCHC 34.7 G/dL Normal 32.0-36.0 [facility] Comment on above: Performed By: #### A SHERRELL, ADIFF, GFR, LIPID, CBC, PSA, CMP ####[place] [address] MCV (RBC) [Entitic vol] 92.7 fL Normal 81.0-100.0 [facility] Comment on above: Performed By: #### A SHERRELL, ADIFF, GFR, LIPID, CBC, PSA, CMP ####[place] [address] Platelet 271 10 3/mcL Normal 150-450 [facility] Comment on above: Performed By: #### A SHERRELL, ADIFF, GFR, LIPID, CBC, PSA, CMP ####[place] [address] Platelet mean volume (Bld) [Entitic vol] 7.2 fL Normal 6.4-10.5 [facility] Comment on above: Performed By: #### A SHERRELL, ADIFF, GFR, LIPID, CBC, PSA, CMP ####[address] [address] RBC 4.23 10 6/mcL Low 4.50-6.00 [facility] Comment on above: Performed By: #### A SHERRELL, ADIFF, GFR, LIPID, CBC, PSA, CMP ####[place] [address] [place], [place] [address] WBC 7.0 10 3/mcL Normal 4.5-10.8 [facility] Comment on above: Performed By: #### A SHERRELL, ADIFF, GFR, LIPID, CBC, PSA, CMP ####[place] [address] CMPon 10-08-2024 Albumin Level 3.8 G/dL Normal 3.4-4.8 [facility] Comment on above: Performed By: #### A SHERRELL, ADIFF, GFR, LIPID, CBC, PSA, CMP ####[place] [id number] Albumin/Globulin [Mass ratio] 1.3 {ratio} Normal 1.1-2.5 [facility] Comment on above: Performed By: #### A SHERRELL, ADIFF, GFR, LIPID, CBC, PSA, CMP ####[place] [id number] ALP [Catalytic activity/Vol] 124 U/L Normal 40-135 [facility] Comment on above: Performed By: #### A SHERRELL, ADIFF, GFR, LIPID, CBC, PSA, CMP ####[place] [id number] ALT [Catalytic activity/Vol] 15 U/L Low 16-63 [facility] Comment on above: Performed By: #### A SHERRELL, ADIFF, GFR, LIPID, CBC, PSA, CMP ####[place] [id number] AST [Catalytic activity/Vol] 15 U/L Normal 10-40 [facility] Comment on above: Performed By: #### A SHERRELL, ADIFF, GFR, LIPID, CBC, PSA, CMP ####[place] [id number] Bili Total 0.4 mg/dL Normal 0.2-1.0 [facility] Comment on above: Result Comment: Use of this assay is not recommended for patients undergoing treatment with eltrombopag due to the potential for falsely elevated results. Performed By: #### A SHERRELL, ADIFF, GFR, LIPID, CBC, PSA, CMP ####[place] [address] [place] [address] BUN/Creatinine Ratio 24 ratio Normal 7-27 [facility] Comment on above: Performed By: #### A SHERRELL, ADIFF, GFR, LIPID, CBC, PSA, CMP ####[place] [address] [place] [address] Calcium [Mass/Vol] 9.2 mg/dL Normal 8.4-10.2 [facility] Comment on above: Performed By: #### A SHERRELL, ADIFF, GFR, LIPID, CBC, PSA, CMP ####[place] [address] Chloride [Moles/Vol] 106 mmol/L Normal 98-107 [facility] Comment on above: Performed By: #### A SHERRELL, ADIFF, GFR, LIPID, CBC, PSA, CMP ####[place] [address] CO2 [Moles/Vol] 32 mmol/L High 23-31 [facility] Comment on above: Performed By: #### A SHERRELL, ADIFF, GFR, LIPID, CBC, PSA, CMP ####[place] [id number] Creatinine [Mass/Vol] 0.90 mg/dL Normal 0.70-1.30 [facility] Comment on above: Result Comment: Test ing performed on Siemens Dimension EXL analyzer using a modified kinetic Mars technique. Performed By: #### A SHERRELL, ADIFF, GFR, LIPID, CBC, PSA, CMP ####[place] [address] [place] [address] Electrolyte Balance 5.0 mEq/L Normal 4.0-15.0 [place] Comment on above: Performed By: #### A SHERRELL, ADIFF, GFR, LIPID, CBC, PSA, CMP ####[place] [address] [place], [place] [address] Globulin 3.0 G/dL Normal 1.5-3.8 [facility] Comment on above: Performed By: #### A SHERRELL, ADIFF, GFR, LIPID, CBC, PSA, CMP ####[place] [address] [place], [place] [address] Glucose [Mass/Vol] 108 mg/dL Normal 83-110 [facility] Comment on above: Performed By: #### A SHERRELL, ADIFF, GFR, LIPID, CBC, PSA, CMP ####[place] [address] [place], [place] [address] Potassium [Moles/Vol] 3.9 mmol/L Normal 3.5-5.1 [facility] Comment on above: Performed By: #### A SHERRELL, ADIFF, GFR, LIPID, CBC, PSA, CMP ####[address] [address] Sodium [Moles/Vol] 143 mmol/L Normal 136-145 [facility] Comment on above: Performed By: #### A SHERRELL, ADIFF, GFR, LIPID, CBC, PSA, CMP ####[place] [address] [place], [place] [address] Total Protein 6.8 G/dL Normal 6.4-8.2 [facility] Comment on above: Performed By: #### A SHERRELL, ADIFF, GFR, LIPID, CBC, PSA, CMP ####[address] [address] Urea nitrogen [Mass/Vol] 22 mg/dL High 7-18 [facility] Comment on above: Performed By: #### A SHERRELL, ADIFF, GFR, LIPID, CBC, PSA, CMP ####[place] [address] [place], [place] [address] LABORATORYOrdered By: SYSTEM SYSTEM on 10-08-2024 25-hydroxyvitamin [...] Cholesterol [Mass/Vol] 153 mg/dL Normal 0 - 2 00 mg/dL AO ADM SS Comment on above: [...] 10-08-2024 Cholesterol [Mass/Vol] 153 mg/dL Normal 0-200 [facility] Comment on above: Result Comment: Chol esterol Reference Interval: Less than 200 Desirable 200-239 Borderline high risk 240 and above High risk Performed By: #### A SHERRELL, ADIFF, GFR, LIPID, CBC, PSA, CMP ####[place] [address] [address] Cholesterol in HDL [Mass/Vol] 46 mg/dL Normal 40-60 [facility] Comment on above: Performed By: #### A SHERRELL, ADIFF, GFR, LIPID, CBC, PSA, CMP ####[address] [address] Cholesterol in LDL [Mass/Vol] 99 mg/dL Normal 0-130 [facility] Comment on above: Performed By: #### A SHERRELL, ADIFF, GFR, LIPID, CBC, PSA, CMP ####[place] [id number] [place] [id number] Triglyceride [Mass/Vol] 42 mg/dL Normal 0-150 [facility] Comment on above: Result Comment: Trig lyceride Reference Interval: Less than 150 Normal 150-199 Borderline high risk 200-499 High risk 500 or higher Very high risk Performed By: #### A SHERRELL, ADIFF, GFR, LIPID, CBC, PSA, CMP ####[address] [address] PSAon 10-08-2024 Prostate Specific Antigen 0.90 ng/mL Normal 0.00-4.00 [facility] Comment on above: Performed By: #### A SHERRELL, ADIFF, GFR, LIPID, CBC, PSA, CMP ####[address] [address] PTHon 10-08-2024 PTH, Intact 45.9 pg/mL Normal 18.5-88.0 [facility] Comment on above: Performed By: #### 1 [address], VIDH ####[place] [address] [address]#### PTH ####[address] [address] VIDHon 10-08-2024 Vit. D 25-Hydroxy 68.5 ng/mL Normal [facility] Comment on above: Result Comment: Inte rpretive Values Based on Total 25(OH) Vitamin D: Deficient <20 ng/mL Insufficient 20 - <30 ng/mL Sufficient 30-100 ng/mL Performed By: #### 1 [address], CAR[place]A ####[place] [address] [place], [place] [address]#### PTH ####[place] [address] Endocrinology Visit Reporton 09-23-2024 Endocrinology Visit Report [facility] [address] [facility] [place] [address] OFFICE VISIT Date of Service: 09/23/24 MR#: [id number] Acct: [id number] Name: NANCY SY Rep #: [id number] : 1945 Provider: Kathy Young Age/Sex: 79/M Location: [facility] Status: Signed Intake Vital Signs 07/09/23 14:26 [...] rate Rhythm (more content not included)... Normal [facility] CT HEAD OR BRAIN W/O CONTRAS Ton [...] Sign Date: 08/18/2024 3:16:57 PM Ordering Provider: [facility] XR ELBOW MINIMUM 3 VIEWS LEF Ton 08-18-2024 XR ELBOW MINIMUM 3 VIEWS LEFT [...] Sign Date: 08/18/2024 3:28:37 PM Ordering Provider: [facility] XR RIBS 2 VIEWS LEFT/PA CHES T(AO)on [...] 08/18/2024 3:31:12 PM Ordering Provider: SIERRA BLACK Normal [facility] No Panel Informationon 08-05 Culture Urine 10,000 - 50,000 cfu/ml Mixed growth consistent with normal urogenital yobany. [facility] LABORATORYOrdered By: SYSTEM SYSTEM on 08-03-2024 25-hydroxyvitamin D3 [Mass/Vol] 44.2 ng/mL Invalid Interpretation Code AO ADM SS Comment on above: Interpretive Data: I nterpretive Values Based on Total 25(OH) Vitamin D: Deficient <20 ng/mL Insufficient 20 - <30 ng/mL Sufficient 30-100 ng/mL VIDHon 08-03-2024 Vit. D 25-Hydroxy 44.2 ng/mL [facility] Comment on above: Result Comment: Inte rpretive Values Based on Total 25(OH) Vitamin D: Deficient <20 ng/mL Insufficient 20 - <30 ng/mL Sufficient 30-100 ng/mL Performed By: #### [facility] #### [address] [address] BD BONE DENSITY DEXA AXIAL S [facility] 06-11-2024 BD BONE DENSITY DEXA AXIAL SKELETON [...] 06/11/2024 3:10:47 PM Ordering Provider: KATHERINE BRAND [facility] .Auto Diffon 06-03-2024 Basophil, Absolute 0.1 10 3/mcL Normal 0.0-0.2 [facility] Comment on above: Performed By: #### A SHERRELL, ADIFF, GFR, CBC, CMP, VIDH ####[place] [address]#### B12 ####[address] [address] Basophils/100 WBC (Bld) 0.5 % Normal 0.0-2.5 [facility] Comment on above: Performed By: #### A SHERRELL, ADIFF, GFR, CBC, CMP, VIDH ####[address] [address]#### B12 ####[address] [address] Eosinophil, Absolute 0.2 10 3/mcL Normal 0.0-0.7 [facility] Comment on above: Performed By: #### A SHERRELL, ADIFF, GFR, CBC, CMP, VIDH ####[place] [address]#### B12 ####[address] [address] Eosinophils/100 WBC (Bld) 2.4 % Normal 0.0-7.0 [facility] Comment on above: Performed By: #### A SHERRELL, ADIFF, GFR, CBC, CMP, VIDH ####[place] [address]#### B12 ####[address] [address] Lymphocyte, Absolute 0.9 10 3/mcL Normal 0.9-4.3 [facility] Comment on above: Performed By: #### A SHERRELL, ADIFF, GFR, CBC, CMP, VIDH ####[place] [address]#### B12 ####[address] [address] Lymphocytes/100 WBC (Bld) 8.6 % Low 20.0-40.0 [facility] Comment on above: Performed By: #### A SHERRELL, ADIFF, GFR, CBC, CMP, VIDH ####[place] [address]#### B12 ####[address] [address] Monocyte, Absolute 0.9 10 3/mcL Normal 0.1-1.4 [facility] Comment on above: Performed By: #### A SHERRELL, ADIFF, GFR, CBC, CMP, VIDH ####[place] [address]#### B12 ####[address] [address] Monocytes/100 WBC (Bld) 8.7 % Normal 2.0-13.0 [facility] Comment on above: Performed By: #### A SHERRELL, ADIFF, GFR, CBC, CMP, VIDH ####[place] [address]#### B12 ####[place] [address] [place] [address] Neutrophils/100 WBC (Bld) 79.8 % High 50.0-75.0 [facility] Comment on above: Performed By: #### A SHERRELL, ADIFF, GFR, CBC, CMP, VIDH ####[facility] [place], [place] [address]#### B12 ####[address] [address] .GFRon 06-03-2024 GFR Non- 95 ml/min/1.73sqm Normal [facility] Comment on above: Result Comment: GFR Population [...] A SHERRELL, ADIFF, GFR, CBC, CMP, VIDH ####[place] [address] [place], [place] [address]#### B12 ####[place] [address] [place] [address] GFR 115 ml/min/1.73sqm Normal [facility] Comment on above: Result Comment: GFR Population [...] A SHERRELL, ADIFF, GFR, CBC, CMP, VIDH ####[place] [address]#### B12 ####[place] [address] .NEUABSon 06-03-2024 Neutrophil, Absolute 8.4 10 3/mcL High 2.3-8.1 [facility] Comment on above: Performed By: #### A SHERRELL, ADIFF, GFR, CBC, CMP, VIDH ####[place] [address]#### B12 ####[place] [address] B12on 06-03-2024 Cobalamin (Vitamin B12) [Mass/Vol] 633 pg/mL Normal 211-911 [facility] Comment on above: Performed By: #### A SHERRELL, ADIFF, GFR, CBC, CMP, VIDH ####[place] [address]#### B12 ####[place] [address] CBCon 06-03-2024 Erythrocyte distribution width (RBC) [Ratio] 13.9 % Normal 11.5-15.5 [facility] Comment on above: Performed By: #### A SHERRELL, ADIFF, GFR, CBC, CMP, VIDH ####[place] [address]#### B12 ####[place] [address] Hematocrit (Bld) [Volume fraction] 39.9 % Low 40.0-52.0 [facility] Comment on above: Performed By: #### A SHERRELL, ADIFF, GFR, CBC, CMP, VIDH ####[place] [address]#### B12 ####[place] [address] Hgb 13.8 G/dL Normal 13.0-17.5 [facility] Comment on above: Performed By: #### A SHERRELL, ADIFF, GFR, CBC, CMP, VIDH ####[place] [address]#### B12 ####[place] [address] MCH (RBC) [Entitic mass] 32.3 pg Normal 27.0-33.0 [facility] Comment on above: Performed By: #### A SHERRELL, ADIFF, GFR, CBC, CMP, VIDH ####[place] [address]#### B12 ####[place] [address] MCHC 34.5 G/dL Normal 32.0-36.0 [facility] Comment on above: Performed By: #### A SHERRELL, ADIFF, GFR, CBC, CMP, VIDH ####[place] [address]#### B12 ####[place] [address] MCV (RBC) [Entitic vol] 93.6 fL Normal 81.0-100.0 [facility] Comment on above: Performed By: #### A SHERRELL, ADIFF, GFR, CBC, CMP, VIDH ####[place] [address]#### B12 ####[place] [address] Platelet 260 10 3/mcL Normal 150-450 [facility] Comment on above: Performed By: #### A SHERRELL, ADIFF, GFR, CBC, CMP, VIDH ####[place] [address]#### B12 ####[place] [address] Platelet mean volume (Bld) [Entitic vol] 7.4 fL Normal 6.4-10.5 [facility] Comment on above: Performed By: #### A SHERRELL, ADIFF, GFR, CBC, CMP, VIDH ####[place] [address]#### B12 ####[place] [address] RBC 4.27 10 6/mcL Low 4.50-6.00 [facility] Comment on above: Performed By: #### A SHERRELL, ADIFF, GFR, CBC, CMP, VIDH ####[place] [address]#### B12 ####[place] [address] WBC 10.5 10 3/mcL Normal 4.5-10.8 [facility] Comment on above: Performed By: #### A SHERRELL, ADIFF, GFR, CBC, CMP, VIDH ####[place] [address]#### B12 ####[place] [address] CMPon 06-03-2024 Albumin Level 3.8 G/dL Normal 3.4-4.8 [facility] Comment on above: Performed By: #### A SHERRELL, ADIFF, GFR, CBC, CMP, VIDH ####[place] [address]#### B12 ####[place] [address] Albumin/Globulin [Mass ratio] 1.5 {ratio} Normal 1.1-2.5 [facility] Comment on above: Performed By: #### A SHERRELL, ADIFF, GFR, CBC, CMP, VIDH ####[place] [address]#### B12 ####[place] [address] ALP [Catalytic activity/Vol] 148 U/L High 40-135 [facility] Comment on above: Performed By: #### A SHERRELL, ADIFF, GFR, CBC, CMP, VIDH ####[place] [address]#### B12 ####[place] [address] ALT [Catalytic activity/Vol] 23 U/L Normal 16-63 [facility] Comment on above: Performed By: #### A SHERRELL, ADIFF, GFR, CBC, CMP, VIDH ####[place] [address]#### B12 ####[place] [address] AST [Catalytic activity/Vol] 15 U/L Normal 10-40 [facility] Comment on above: Performed By: #### A SHERRELL, ADIFF, GFR, CBC, CMP, VIDH ####[place] [address]#### B12 ####[place] [address] Bili Total 0.4 mg/dL Normal 0.2-1.0 [facility] Comment on above: Result Comment: Use of this assay is not recommended for patients undergoing treatment with eltrombopag due to the potential for falsely elevated results. Performed By: #### A SHERRELL, ADIFF, GFR, CBC, CMP, VIDH ####[place] [address]#### B12 ####[place] [address] BUN/Creatinine Ratio 18 ratio Normal 7-27 [facility] Comment on above: Performed By: #### A SHERRELL, ADIFF, GFR, CBC, CMP, VIDH ####[place] [address]#### B12 ####[place] [address] Calcium [Mass/Vol] 8.9 mg/dL Normal 8.4-10.2 [facility] Comment on above: Performed By: #### A SHERRELL, ADIFF, GFR, CBC, CMP, VIDH ####[place] [address]#### B12 ####[place] [address] Chloride [Moles/Vol] 104 mmol/L Normal 98-107 [facility] Comment on above: Performed By: #### A SHERRELL, ADIFF, GFR, CBC, CMP, VIDH ####[place] [address]#### B12 ####[place] [address] CO2 [Moles/Vol] 30 mmol/L Normal 23-31 [facility] Comment on above: Performed By: #### A SHERRELL, ADIFF, GFR, CBC, CMP, VIDH ####[place] [address]#### B12 ####[place] [address] Creatinine [Mass/Vol] 0.79 mg/dL Normal 0.70-1.30 [facility] Comment on above: Result Comment: Test ing performed on Siemens Dimension EXL analyzer using a modified kinetic Mars technique. Performed By: #### A SHERRELL, ADIFF, GFR, CBC, CMP, VIDH ####[place] [address]#### B12 ####[place] [address] Electrolyte Balance 9.0 mEq/L Normal 4.0-15.0 [place] Comment on above: Performed By: #### A SHERRELL, ADIFF, GFR, CBC, CMP, VIDH ####[place] [id number]#### B12 ####[place] [address] Globulin 2.5 G/dL Normal [facility] Comment on above: Performed By: #### A SHERRELL, ADIFF, GFR, CBC, CMP, VIDH ####[place] [id number]#### B12 ####[place] [address] Glucose [Mass/Vol] 106 mg/dL Normal 83-110 [facility] Comment on above: Performed By: #### A SHERRELL, ADIFF, GFR, CBC, CMP, VIDH ####[place] [id number]#### B12 ####[place] [address] Potassium [Moles/Vol] 3.5 mmol/L Normal 3.5-5.1 [facility] Comment on above: Performed By: #### A SHERRELL, ADIFF, GFR, CBC, CMP, VIDH ####[place] [id number]#### B12 ####[place] [address] Sodium [Moles/Vol] 143 mmol/L Normal 136-145 [facility] Comment on above: Performed By: #### A SHERRELL, ADIFF, GFR, CBC, CMP, VIDH ####[place] [id number]#### B12 ####[place] [address] Total Protein 6.3 G/dL Low 6.4-8.2 [facility] Comment on above: Performed By: #### A SHERRELL, ADIFF, GFR, CBC, CMP, VIDH ####[place] [id number]#### B12 ####[place] [address] Urea nitrogen [Mass/Vol] 14 mg/dL Normal 7-18 [facility] Comment on above: Performed By: #### A SHERRELL, ADIFF, GFR, CBC, CMP, VIDH ####[place] [id number]#### B12 ####[place] [address] LABORATORYOrdered By: SYSTEM SYSTEM on 06-03-2024 25-hydroxyvitamin [...] 06-03-2024 Vit. D 25-Hydroxy 13.5 ng/mL Normal [facility] Comment on above: Result Comment: Inte rpretive Values Based on Total 25(OH) Vitamin D: Deficient <20 ng/mL Insufficient 20 - <30 ng/mL Sufficient 30-100 ng/mL Performed By: #### A SHERRELL, ADIFF, GFR, CBC, CMP, VIDH ####[address] [address]#### B12 ####[place] [address] .Auto Diffon 05-19-2024 Basophil, Absolute 0.0 10 3/mcL Normal 0.0-0.2 [facility] Comment on above: Performed By: #### V IDH #### [address] [address] Basophils/100 WBC (Bld) 0.5 % Normal 0.0-2.5 [facility] Comment on above: Performed By: #### V IDH #### [address] [address] Eosinophil, Absolute 0.2 10 3/mcL Normal 0.0-0.4 [facility] Comment on above: Performed By: #### V IDH #### [address] [address] Eosinophils/100 WBC (Bld) 3.6 % Normal 0.0-7.0 [facility] Comment on above: Performed By: #### V IDH #### [address] [address] Lymphocyte, Absolute 1.0 10 3/mcL Normal 0.8-3.9 [facility] Comment on above: Performed By: #### V IDH #### [address] [address] Lymphocytes/100 WBC (Bld) 15.6 % Normal 10.0-50.0 [facility] Comment on above: Performed By: #### V IDH #### [address] [address] Monocyte, Absolute 0.6 10 3/mcL Normal 0.2-1.0 [facility] Comment on above: Performed By: #### V IDH #### [address] [address] Monocytes/100 WBC (Bld) 8.6 % Normal 1.7-13.0 [facility] Comment on above: Performed By: #### V IDH #### [address] [address] Neutrophils/100 WBC (Bld) 71.7 % Normal 37.0-80.0 [facility] Comment on above: Performed By: #### V IDH #### [address] [address] .GFRon 05-19-2024 GFR Non- 92 ml/min/1.73sqm Normal [facility] Comment on above: Result Comment: GFR Population [...] meters Performed By: #### V IDH #### [address] [address] GFR 112 ml/min/1.73sqm Normal [facility] Comment on above: Result Comment: GFR Population [...] meters Performed By: #### V IDH #### [address] [address] .NEUABSon 05-19-2024 Neutrophil, Absolute 4.8 10 3/mcL Normal 2.9-6.2 [facility] Comment on above: Performed By: #### V IDH #### [place] [address] CBCon 05-19-2024 Erythrocyte distribution width (RBC) [Ratio] 13.5 % Normal 11.5-14.5 [facility] Comment on above: Performed By: #### V IDH #### [place] [address] Hematocrit (Bld) [Volume fraction] 39.3 % Low 42.0-52.0 [facility] Comment on above: Performed By: #### V IDH #### [place] [address] Hgb 13.4 G/dL Low 14.0-18.0 [facility] Comment on above: Performed By: #### V IDH #### [place] [address] MCH (RBC) [Entitic mass] 32.1 pg High 27.0-31.2 [facility] Comment on above: Performed By: #### V IDH #### [place] [address] MCHC 34.1 G/dL Normal 31.8-35.4 [facility] Comment on above: Performed By: #### V IDH #### [place] [phone] MCV (RBC) [Entitic vol] 94.0 fL Normal 80.0-94.0 [facility] Comment on above: Performed By: #### V IDH #### [address] [address] Platelet 186 10 3/mcL Normal 130-400 [facility] Comment on above: Performed By: #### V IDH #### [address] [address] Platelet mean volume (Bld) [Entitic vol] 7.3 fL Low 7.4-10.4 [facility] Comment on above: Performed By: #### V IDH #### [address] [address] RBC 4.18 10 6/mcL Normal 4.04-6.13 [facility] Comment on above: Performed By: #### V IDH #### [address] [address] WBC 6.6 10 3/mcL Normal 4.6-10.8 [facility] Comment on above: Performed By: #### V IDH #### [address] [address] CMPon 05-19-2024 Albumin Level 3.5 G/dL Normal 3.4-4.8 [facility] Comment on above: Performed By: #### V IDH #### [address] [address] Albumin/Globulin [Mass ratio] 1.3 {ratio} Normal 1.1-2.5 [facility] Comment on above: Performed By: #### V IDH #### [address] [address] ALP [Catalytic activity/Vol] 186 U/L High 40-135 [facility] Comment on above: Performed By: #### V IDH #### [address] [address] ALT [Catalytic activity/Vol] 26 U/L Normal 16-63 [facility] Comment on above: Performed By: #### V IDH #### [address] [address] AST [Catalytic activity/Vol] 14 U/L Normal 10-40 [facility] Comment on above: Performed By: #### V IDH #### [place] [phone] Bili Total 0.5 mg/dL Normal 0.2-1.0 [facility] Comment on above: Result Comment: Use of this assay is not recommended for patients undergoing treatment with eltrombopag due to the potential for falsely elevated results. Performed By: #### V IDH #### [place] [address] BUN/Creatinine Ratio 21 ratio Normal 7-27 [facility] Comment on above: Performed By: #### V IDH #### [place] [address] Calcium [Mass/Vol] 9.0 mg/dL Normal 8.4-10.2 [facility] Comment on above: Performed By: #### V IDH #### [place] [address] Chloride [Moles/Vol] 108 mmol/L High 98-107 [facility] Comment on above: Performed By: #### V IDH #### [place] [address] CO2 [Moles/Vol] 29 mmol/L Normal 23-31 [facility] Comment on above: Performed By: #### V IDH #### [place] [address] Creatinine [Mass/Vol] 0.81 mg/dL Normal 0.70-1.30 [facility] Comment on above: Result Comment: Test ing performed on Siemens Dimension EXL analyzer using a modified kinetic Mars technique. Performed By: #### V IDH #### [place] [phone] Electrolyte Balance 7.0 mEq/L Normal 4.0-15.0 [place] Comment on above: Performed By: #### V IDH #### [place] [phone] Globulin 2.6 G/dL Normal [facility] Comment on above: Performed By: #### V IDH #### [address] [address] Glucose [Mass/Vol] 112 mg/dL High 83-110 [facility] Comment on above: Performed By: #### V IDH #### [place] [id number] [place], [place] [address] Potassium [Moles/Vol] 4.1 mmol/L Normal 3.5-5.1 [facility] Comment on above: Performed By: #### V IDH #### [address] [address] Sodium [Moles/Vol] 144 mmol/L Normal 136-145 [facility] Comment on above: Performed By: #### V IDH #### [address] [address] Total Protein 6.1 G/dL Low 6.4-8.2 [facility] Comment on above: Performed By: #### V IDH #### [address] [address] Urea nitrogen [Mass/Vol] 17 mg/dL Normal 7-18 [facility] Comment on above: Performed By: #### V IDH #### [address] [address] LABORATORYOrdered By: SYSTEM SYSTEM on 05-19-2024 Albumin [...] 05-01-2024 Potassium [Moles/Vol] 3.4 mmol/L Low 3.5-5.1 [facility] ([place]) Comment on above: Performed By: #### C MANNIE, ABDIEL, ANEU, BMP, GFR #### [place] [id number] LABORATORYOrdered By: SYSTEM SYSTEM on 05-01-2024 Magnesium [Mass/Vol] 2.1 mg/dL Normal 1.8 - 2 .4 mg/dL AO ADM SS Potassium [Moles/Vol] 3.4 mmol/L Low 3.5 - 5.1 mmol/L AO ADM SS MGon 05-01-2024 Magnesium [Mass/Vol] 2.1 mg/dL Normal 1.8-2.4 [facility] ([place]) Comment on above: Performed By: #### C BC, ADIFF, ANEU, BMP, GFR #### [place] [phone] [place] 04-30-2024 Potassium [Moles/Vol] 3.2 mmol/L Low 3.5-5.1 [facility] ([place]) Comment on above: Performed By: #### C MANNIE, ABDIEL, ANEU, BMP, GFR #### [address] [address] LABORATORYOrdered By: SYSTEM SYSTEM on 04-30-2024 Potassium [Moles/Vol] 3.2 mmol/L Low 3.5 - 5.1 mmol/L AO ADM SS [place] 04-28-2024 Potassium [Moles/Vol] 3.1 mmol/L Low 3.5-5.1 [facility] ([place]) Comment on above: Performed By: #### C MANNIE, ABDIEL, ANEU, BMP, GFR #### [address] [address] LABORATORYOrdered By: SYSTEM SYSTEM on 04-28-2024 Potassium [Moles/Vol] 3.1 mmol/L Low 3.5 - 5.1 mmol/L AO ADM SS .Auto Diffon 04-27-2024 Basophil, Absolute 0.1 10 3/mcL Normal 0.0-0.2 [facility] ([place]) Comment on above: Performed By: #### C MANNIE, ABDIEL, ANEU, BMP, GFR #### [address] [address] Basophils/100 WBC (Bld) 0.4 % Normal 0.0-2.5 [facility] ([place]) Comment on above: Performed By: #### C BC, ADROSIE, ANEU, BMP, GFR #### [address] [address] Eosinophil, Absolute 0.3 10 3/mcL Normal 0.0-0.4 [facility] ([place]) Comment on above: Performed By: #### C BC, ADIFF, ANEU, BMP, GFR #### [address] [address] Eosinophils/100 WBC (Bld) 2.4 % Normal 0.0-7.0 [facility] ([place]) Comment on above: Performed By: #### C BC, ADIFF, ANEU, BMP, GFR #### [address] [address] Lymphocyte, Absolute 1.0 10 3/mcL Normal 0.8-3.9 [facility] ([place]) Comment on above: Performed By: #### C BC, ADIFF, ANEU, BMP, GFR #### [address] [address] Lymphocytes/100 WBC (Bld) 8.8 % Low 10.0-50.0 [facility] ([place]) Comment on above: Performed By: #### C BC, ADIFF, ANEU, BMP, GFR #### [address] [address] Monocyte, Absolute 1.0 10 3/mcL Normal 0.2-1.0 [facility] ([place]) Comment on above: Performed By: #### C BC, ADIFF, ANEU, BMP, GFR #### [address] [address] Monocytes/100 WBC (Bld) 8.9 % Normal 1.7-13.0 [facility] ([place]) Comment on above: Performed By: #### C BC, ADIFF, ANEU, BMP, GFR #### [address] [address] Neutrophils/100 WBC (Bld) 79.5 % Normal 37.0-80.0 [facility] ([place]) Comment on above: Performed By: #### C BC, ADIFF, ANEU, BMP, GFR #### [address] [address] .GFRon 04-27-2024 GFR 122 ml/min/1.73sqm Normal [facility] ([place]) Comment on above: Result Comment: GFR Population [...] C BC, ADIFF, ANEU, BMP, GFR #### [address] [address] GFR Non- 101 ml/min/1.73sqm Normal [facility] ([place]) Comment on above: Result Comment: GFR Population [...] C BC, ADIFF, ANEU, BMP, GFR #### [address] [address] .NEUABSon 04-27-2024 Neutrophil, Absolute 9.2 10 3/mcL High 2.9-6.2 [facility] ([place]) Comment on above: Performed By: #### C BC, ADIFF, ANEU, BMP, GFR #### [address] [address] CBCon 04-27-2024 Erythrocyte distribution width (RBC) [Ratio] 13.6 % Normal 11.5-14.5 [facility] ([place]) Comment on above: Performed By: #### C BC, ADIFF, ANEU, BMP, GFR #### [address] [address] Hematocrit (Bld) [Volume fraction] 36.7 % Low 42.0-52.0 [facility] ([place]) Comment on above: Performed By: #### C BC, ADIFF, ANEU, BMP, GFR #### [address] [address] Hgb 12.6 G/dL Low 14.0-18.0 [facility] ([place]) Comment on above: Performed By: #### C BC, ADIFF, ANEU, BMP, GFR #### [place] [phone] MCH (RBC) [Entitic mass] 32.3 pg High 27.0-31.2 [facility] ([place]) Comment on above: Performed By: #### C BC, ADIFF, ANEU, BMP, GFR #### [place] [phone] MCHC 34.4 G/dL Normal 31.8-35.4 [facility] ([place]) Comment on above: Performed By: #### C BC, ADIFF, ANEU, BMP, GFR #### [address] [address] MCV (RBC) [Entitic vol] 93.9 fL Normal 80.0-94.0 [facility] ([place]) Comment on above: Performed By: #### C BC, ADIFF, ANEU, BMP, GFR #### [address] [address] Platelet 238 10 3/mcL Normal 130-400 [facility] ([place]) Comment on above: Performed By: #### C BC, ADIFF, ANEU, BMP, GFR #### [address] [address] Platelet mean volume (Bld) [Entitic vol] 7.4 fL Normal 7.4-10.4 [facility] ([place]) Comment on above: Performed By: #### C BC, ADIFF, ANEU, BMP, GFR #### [address] [address] RBC 3.91 10 6/mcL Low 4.04-6.13 [facility] ([place]) Comment on above: Performed By: #### C BC, ADIFF, ANEU, BMP, GFR #### [address] [address] WBC 11.5 10 3/mcL High 4.6-10.8 [facility] ([place]) Comment on above: Performed By: #### C BC, ADIFF, ANEU, BMP, GFR #### [address] [address] CMPon 04-27-2024 Albumin Level 3.1 G/dL Low 3.4-4.8 [facility] ([place]) Comment on above: Performed By: #### C BC, ADIFF, ANEU, BMP, GFR #### [address] [address] Albumin/Globulin [Mass ratio] 1.2 {ratio} Normal 1.1-2.5 [facility] ([place]) Comment on above: Performed By: #### C BC, ADIFF, ANEU, BMP, GFR #### [address] [address] ALP [Catalytic activity/Vol] 121 U/L Normal 40-135 [facility] ([place]) Comment on above: Performed By: #### C BC, ADIFF, ANEU, BMP, GFR #### [address] [address] ALT [Catalytic activity/Vol] 58 U/L Normal 16-63 [facility] ([place]) Comment on above: Performed By: #### C BC, ADIFF, ANEU, BMP, GFR #### [address] [address] AST [Catalytic activity/Vol] 26 U/L Normal 10-40 [facility] ([place]) Comment on above: Performed By: #### C BC, ADIFF, ANEU, BMP, GFR #### [address] [address] Bili Total 0.4 mg/dL Normal 0.2-1.0 [facility] ([place]) Comment on above: Result Comment: Use of this assay is not recommended for patients undergoing treatment with eltrombopag due to the potential for falsely elevated results. Performed By: #### C BC, ADIFF, ANEU, BMP, GFR #### [place] [address] BUN/Creatinine Ratio 23 ratio Normal 7-27 [facility] ([place]) Comment on above: Performed By: #### C BC, ADIFF, ANEU, BMP, GFR #### [place] [phone] Calcium [Mass/Vol] 8.6 mg/dL Normal 8.4-10.2 [facility] ([place]) Comment on above: Performed By: #### C BC, ADIFF, ANEU, BMP, GFR #### [place] [address] Chloride [Moles/Vol] 107 mmol/L Normal 98-107 [facility] ([place]) Comment on above: Performed By: #### C BC, ADIFF, ANEU, BMP, GFR #### [place] [address] CO2 [Moles/Vol] 32 mmol/L High 23-31 [facility] ([place]) Comment on above: Performed By: #### C BC, ADIFF, ANEU, BMP, GFR #### [place] [address] Creatinine [Mass/Vol] 0.75 mg/dL Normal 0.70-1.30 [facility] ([place]) Comment on above: Performed By: #### C BC, ADIFF, ANEU, BMP, GFR #### [place] [phone] Electrolyte Balance 7.0 mEq/L Normal 4.0-15.0 [facility] [place] Comment on above: Performed By: #### C BC, ADIFF, ANEU, BMP, GFR #### [place] [address] Globulin 2.6 G/dL Normal [facility] ([place]) Comment on above: Performed By: #### C BC, ADIFF, ANEU, BMP, GFR #### [place] [address] Glucose [Mass/Vol] 98 mg/dL Normal 83-110 [facility] ([place] Comment on above: Performed By: #### C BC, ADIFF, ANEU, BMP, GFR #### [address] [address] Potassium [Moles/Vol] 3.2 mmol/L Low 3.5-5.1 [facility] ([place]) Comment on above: Performed By: #### C BC, ADIFF, ANEU, BMP, GFR #### [address] [address] Sodium [Moles/Vol] 146 mmol/L High 136-145 [facility] ([place] Comment on above: Performed By: #### C BC, ADIFF, ANEU, BMP, GFR #### [address] [address] Total Protein 5.7 G/dL Low 6.4-8.2 [facility] ([place]) Comment on above: Performed By: #### C BC, ADIFF, ANEU, BMP, GFR #### [address] [address] Urea nitrogen [Mass/Vol] 17 mg/dL Normal 7-18 [facility] ([place]) Comment on above: Performed By: #### C BC, ADIFF, ANEU, BMP, GFR #### [address] [address] LABORATORYOrdered By: SYSTEM SYSTEM on 04-27-2024 Albumin [...] SS MYCOon 04-27-2024 Mycoplasma IgG Negative Normal [facility] ([place]) Comment on above: Order Comment: [place]ul [place] [phone] 04/23/2024 15:31:57 EDT.Called and faxed to Archie Mayen [email or web address] Result Comment: INTE RPRETATION OF MYCOPLASMA IgG BY EIA: Negative: No detectable M. pneumoniae IgG antibody. Positive: Mycoplasma pneumoniae IgG antibody Detected. Equivocal: Equivocal for IgG antibodies to Mycoplasma pneumoniae. Suggest repeat testing in 10-14 days. Performed By: #### C BC, ADIFF, ANEU, BMP, GFR #### [place] [address] [address] .GFRon 04-26-2024 GFR 112 ml/min/1.73sqm Normal [facility] ([place]) Comment on above: Result Comment: GFR Population [...] C BC, ADIFF, ANEU, BMP, GFR #### [address] [address] GFR Non- 92 ml/min/1.73sqm Normal [facility] ([place]) Comment on above: Result Comment: GFR Population [...] C BC, ADIFF, ANEU, BMP, GFR #### [address] [address] BMPon 04-26-2024 BUN/Creatinine Ratio 23 ratio Normal 7-27 [facility] ([place]) Comment on above: Performed By: #### C BC, ADIFF, ANEU, BMP, GFR #### [address] [address] Calcium [Mass/Vol] 8.9 mg/dL Normal 8.4-10.2 [facility] ([place] Comment on above: Performed By: #### C BC, ADIFF, ANEU, BMP, GFR #### [address] [address] Chloride [Moles/Vol] 109 mmol/L High 98-107 [facility] ([place]) Comment on above: Performed By: #### C BC, ADIFF, ANEU, BMP, GFR #### [address] [address] CO2 [Moles/Vol] 32 mmol/L High 23-31 [facility] ([place]) Comment on above: Performed By: #### C BC, ADIFF, ANEU, BMP, GFR #### [address] [address] Creatinine [Mass/Vol] 0.81 mg/dL Normal 0.70-1.30 [facility] ([place]) Comment on above: Performed By: #### C BC, ADIFF, ANEU, BMP, GFR #### [address] [address] Electrolyte Balance 6.0 mEq/L Normal 4.0-15.0 [facility] [place] Comment on above: Performed By: #### C BC, ADIFF, ANEU, BMP, GFR #### [address] [address] Glucose [Mass/Vol] 108 mg/dL Normal 83-110 [facility] ([place] Comment on above: Performed By: #### C BC, ADIFF, ANEU, BMP, GFR #### [address] [address] Potassium [Moles/Vol] 3.2 mmol/L Low 3.5-5.1 [facility] ([place]) Comment on above: Performed By: #### C BC, ADIFF, ANEU, BMP, GFR #### [address] [address] Sodium [Moles/Vol] 147 mmol/L High 136-145 [facility] ([place] Comment on above: Performed By: #### C BC, ADIFF, ANEU, BMP, GFR #### [address] [address] Urea nitrogen [Mass/Vol] 19 mg/dL High 7-18 [facility] ([place]) Comment on above: Performed By: #### C BC, ADIFF, ANEU, BMP, GFR #### [address] [address] LABORATORYOrdered By: SYSTEM SYSTEM on 04-26-2024 Calcium [...] Basophil, Absolute 0.0 10 3/mcL Normal 0.0-0.2 [facility] ([place]) Comment on above: Performed By: #### C BC, ADIFF, ANEU, BMP, GFR #### [address] [address] Basophils/100 WBC (Bld) 0.4 % Normal 0.0-2.5 [facility] ([place]) Comment on above: Performed By: #### C BC, ADIFF, ANEU, BMP, GFR #### [address] [address] Eosinophil, Absolute 0.3 10 3/mcL Normal 0.0-0.4 [facility] ([place]) Comment on above: Performed By: #### C BC, ADIFF, ANEU, BMP, GFR #### [address] [address] Eosinophils/100 WBC (Bld) 3.1 % Normal 0.0-7.0 [facility] ([place]) Comment on above: Performed By: #### C BC, ADIFF, ANEU, BMP, GFR #### [address] [address] Lymphocyte, Absolute 1.0 10 3/mcL Normal 0.8-3.9 [facility] ([place]) Comment on above: Performed By: #### C BC, ADIFF, ANEU, BMP, GFR #### [address] [address] Lymphocytes/100 WBC (Bld) 10.3 % Normal 10.0-50.0 [facility] ([place]) Comment on above: Performed By: #### C BC, ADIFF, ANEU, BMP, GFR #### [address] [address] Monocyte, Absolute 0.9 10 3/mcL Normal 0.2-1.0 [facility] ([place]) Comment on above: Performed By: #### C BC, ADIFF, ANEU, BMP, GFR #### [address] [address] Monocytes/100 WBC (Bld) 9.1 % Normal 1.7-13.0 [facility] ([place]) Comment on above: Performed By: #### C BC, ADIFF, ANEU, BMP, GFR #### [address] [address] Neutrophils/100 WBC (Bld) 77.1 % Normal 37.0-80.0 [facility] ([place]) Comment on above: Performed By: #### C BC, ADIFF, ANEU, BMP, GFR #### [address] [address] .GFRon 04-25-2024 GFR 107 ml/min/1.73sqm Normal [facility] ([place]) Comment on above: Result Comment: GFR Population [...] C BC, ADIFF, ANEU, BMP, GFR #### [address] [address] GFR Non- 88 ml/min/1.73sqm Normal [facility] ([place]) Comment on above: Result Comment: GFR Population [...] C BC, ADIFF, ANEU, BMP, GFR #### [address] [address] .NEUABSon 04-25-2024 Neutrophil, Absolute 7.4 10 3/mcL High 2.9-6.2 [facility] ([place]) Comment on above: Performed By: #### C BC, ADIFF, ANEU, BMP, GFR #### [address] [address] BMPon 04-25-2024 BUN/Creatinine Ratio 31 ratio High 7-27 [facility] ([place]) Comment on above: Performed By: #### C BC, ADIFF, ANEU, BMP, GFR #### [address] [address] Calcium [Mass/Vol] 8.9 mg/dL Normal 8.4-10.2 [facility] ([place] Comment on above: Performed By: #### C BC, ADIFF, ANEU, BMP, GFR #### [address] [address] Chloride [Moles/Vol] 110 mmol/L High 98-107 [facility] ([place]) Comment on above: Performed By: #### C BC, ADIFF, ANEU, BMP, GFR #### [address] [address] CO2 [Moles/Vol] 30 mmol/L Normal 23-31 [facility] ([place]) Comment on above: Performed By: #### C BC, ADIFF, ANEU, BMP, GFR #### [address] [address] Creatinine [Mass/Vol] 0.84 mg/dL Normal 0.70-1.30 [facility] ([place]) Comment on above: Performed By: #### C BC, ADIFF, ANEU, BMP, GFR #### [address] [address] Electrolyte Balance 8.0 mEq/L Normal 4.0-15.0 [facility] [place] Comment on above: Performed By: #### C BC, ADIFF, ANEU, BMP, GFR #### [address] [address] Glucose [Mass/Vol] 120 mg/dL High 83-110 [facility] ([place] Comment on above: Performed By: #### C BC, ADIFF, ANEU, BMP, GFR #### [address] [address] Potassium [Moles/Vol] 3.5 mmol/L Normal 3.5-5.1 [facility] ([place]) Comment on above: Performed By: #### C BC, ADIFF, ANEU, BMP, GFR #### [address] [address] Sodium [Moles/Vol] 148 mmol/L High 136-145 [facility] ([place] Comment on above: Performed By: #### C BC, ADIFF, ANEU, BMP, GFR #### [address] [address] Urea nitrogen [Mass/Vol] 26 mg/dL High 7-18 [facility] ([place]) Comment on above: Performed By: #### C BC, ADIFF, ANEU, BMP, GFR #### [address] [address] CBCon 04-25-2024 Erythrocyte distribution width (RBC) [Ratio] 14.1 % Normal 11.5-14.5 [facility] ([place]) Comment on above: Performed By: #### C BC, ADIFF, ANEU, BMP, GFR #### [address] [address] Hematocrit (Bld) [Volume fraction] 36.6 % Low 42.0-52.0 [facility] ([place]) Comment on above: Performed By: #### C BC, ADIFF, ANEU, BMP, GFR #### [place] [phone] Hgb 12.8 G/dL Low 14.0-18.0 [facility] ([place]) Comment on above: Performed By: #### C BC, ADIFF, ANEU, BMP, GFR #### [address] [address] MCH (RBC) [Entitic mass] 32.9 pg High 27.0-31.2 [facility] ([place]) Comment on above: Performed By: #### C BC, ADIFF, ANEU, BMP, GFR #### [place] [phone] MCHC 34.9 G/dL Normal 31.8-35.4 [facility] ([place]) Comment on above: Performed By: #### C BC, ADIFF, ANEU, BMP, GFR #### [address] [address] MCV (RBC) [Entitic vol] 94.1 fL High 80.0-94.0 [facility] ([place]) Comment on above: Performed By: #### C BC, ADIFF, ANEU, BMP, GFR #### [address] [address] Platelet 218 10 3/mcL Normal 130-400 [facility] ([place]) Comment on above: Performed By: #### C BC, ADIFF, ANEU, BMP, GFR #### [address] [address] Platelet mean volume (Bld) [Entitic vol] 7.3 fL Low 7.4-10.4 [facility] ([place]) Comment on above: Performed By: #### C BC, ADIFF, ANEU, BMP, GFR #### [place] [id number] [place], [place] [address] RBC 3.89 10 6/mcL Low 4.04-6.13 [facility] ([place]) Comment on above: Performed By: #### C BC, ADIFF, ANEU, BMP, GFR #### [address] [place] [address] [place], [place] [address] WBC 9.6 10 3/mcL Normal 4.6-10.8 [facility] ([place] Comment on above: Performed By: #### C BC, ADIFF, ANEU, BMP, GFR #### [place] [id number] [place], [place] [address] LABORATORYOrdered By: SYSTEM SYSTEM on 04-25-2024 Basophil, [...] Basophil, Absolute 0.0 10 3/mcL Normal 0.0-0.2 [facility] ([place]) Comment on above: Performed By: #### C ABDIEL CHAND ANEU, BMP, GFR #### [address] [address] Basophils/100 WBC (Bld) 0.4 % Normal 0.0-2.5 [facility] ([place]) Comment on above: Performed By: #### C ABDIEL CHAND, IVETT, BMP, GFR #### [place] [id number] [place], [place] [address] Eosinophil, Absolute 0.1 10 3/mcL Normal 0.0-0.4 [facility] ([place]) Comment on above: Performed By: #### C ABDIEL CHAND ANEU, BMP, GFR #### [address] [address] Eosinophils/100 WBC (Bld) 0.6 % Normal 0.0-7.0 [facility] ([place]) Comment on above: Performed By: #### C BC, ADIFF, ANEU, BMP, GFR #### [address] [address] Lymphocyte, Absolute 1.1 10 3/mcL Normal 0.8-3.9 [facility] ([place] Comment on above: Performed By: #### C BC, ADIFF, ANEU, BMP, GFR #### [address] [address] Lymphocytes/100 WBC (Bld) 8.7 % Low 10.0-50.0 [facility] ([place]) Comment on above: Performed By: #### C BC, ADIFF, ANEU, BMP, GFR #### [address] [address] Monocyte, Absolute 1.0 10 3/mcL Normal 0.2-1.0 [facility] ([place]) Comment on above: Performed By: #### C BC, ADIFF, ANEU, BMP, GFR #### [address] [address] Monocytes/100 WBC (Bld) 7.8 % Normal 1.7-13.0 [facility] ([place]) Comment on above: Performed By: #### C BC, ADIFF, ANEU, BMP, GFR #### [address] [address] Neutrophils/100 WBC (Bld) 82.5 % High 37.0-80.0 [facility] ([place]) Comment on above: Performed By: #### C BC, ADIFF, ANEU, BMP, GFR #### [address] [address] .GFRon 04-24-2024 GFR 107 ml/min/1.73sqm Normal [facility] ([place]) Comment on above: Result Comment: GFR Population [...] meters Performed By: #### M RSAPCR #### [address] [address] GFR Non- 88 ml/min/1.73sqm Normal [facility] ([place]) Comment on above: Result Comment: GFR Population [...] meters Performed By: #### M RSAPCR #### [address] [address] .NEUABSon 04-24-2024 Neutrophil, Absolute 10.2 10 3/mcL High 2.9-6.2 [facility] ([place]) Comment on above: Performed By: #### M RSAPCR #### [address] [address] CBCon 04-24-2024 Erythrocyte distribution width (RBC) [Ratio] 13.5 % Normal 11.5-14.5 [facility] ([place]) Comment on above: Performed By: #### C BC, ADIFF, ANEU, BMP, GFR #### [address] [address] Hematocrit (Bld) [Volume fraction] 37.7 % Low 42.0-52.0 [facility] ([place]) Comment on above: Performed By: #### C BC, ADIFF, ANEU, BMP, GFR #### [address] [address] Hgb 13.1 G/dL Low 14.0-18.0 [facility] ([place] Comment on above: Performed By: #### C BC, ADIFF, ANEU, BMP, GFR #### [address] [address] MCH (RBC) [Entitic mass] 32.9 pg High 27.0-31.2 [facility] ([place]) Comment on above: Performed By: #### C BC, ADIFF, ANEU, BMP, GFR #### [place] [id number] MCHC 34.8 G/dL Normal 31.8-35.4 [facility] ([place] Comment on above: Performed By: #### C BC, ADIFF, ANEU, BMP, GFR #### [address] [address] MCV (RBC) [Entitic vol] 94.4 fL High 80.0-94.0 [facility] ([place]) Comment on above: Performed By: #### C BC, ADIFF, ANEU, BMP, GFR #### [address] [address] Platelet 226 10 3/mcL Normal 130-400 [facility] ([place]) Comment on above: Performed By: #### C BC, ADIFF, ANEU, BMP, GFR #### [address] [address] Platelet mean volume (Bld) [Entitic vol] 7.5 fL Normal 7.4-10.4 [facility] ([place]) Comment on above: Performed By: #### C BC, ADIFF, ANEU, BMP, GFR #### [address] [address] RBC 4.00 10 6/mcL Low 4.04-6.13 [facility] ([place] Comment on above: Performed By: #### C BC, ADIFF, ANEU, BMP, GFR #### [place] [address] [place], [place] [address] WBC 12.3 10 3/mcL High 4.6-10.8 [facility] ([place]) Comment on above: Performed By: #### C BC, ADIFF, ANEU, BMP, GFR #### [place] [address] [address] CMPon 04-24-2024 Albumin Level 3.2 G/dL Low 3.4-4.8 [facility] ([place] Comment on above: Performed By: #### M RSAPCR #### [address] [address] Albumin/Globulin [Mass ratio] 1.1 {ratio} Normal 1.1-2.5 [facility] ([place] Comment on above: Performed By: #### M RSAPCR #### [address] [address] ALP [Catalytic activity/Vol] 150 U/L High 40-135 [facility] ([place] Comment on above: Performed By: #### M RSAPCR #### [address] [address] ALT [Catalytic activity/Vol] 90 U/L High 16-63 [facility] ([place] Comment on above: Performed By: #### M RSAPCR #### [address] [address] AST [Catalytic activity/Vol] 28 U/L Normal 10-40 [facility] ([place] Comment on above: Performed By: #### M RSAPCR #### [address] [address] Bili Total 0.5 mg/dL Normal 0.2-1.0 [facility] ([place]) Comment on above: Result Comment: Use of this assay is not recommended for patients undergoing treatment with eltrombopag due to the potential for falsely elevated results. Performed By: #### M RSAPCR #### [address] [address] BUN/Creatinine Ratio 36 ratio High 7-27 [facility] ([place]) Comment on above: Performed By: #### M RSAPCR #### [address] [address] Calcium [Mass/Vol] 8.8 mg/dL Normal 8.4-10.2 [facility] ([place] Comment on above: Performed By: #### M RSAPCR #### [address] [address] Chloride [Moles/Vol] 109 mmol/L High 98-107 [facility] ([place] Comment on above: Performed By: #### M RSAPCR #### [place] [id number] CO2 [Moles/Vol] 32 mmol/L High 23-31 [facility] ([place] Comment on above: Performed By: #### M RSAPCR #### [place] [id number] Creatinine [Mass/Vol] 0.84 mg/dL Normal 0.70-1.30 [facility] ([place] Comment on above: Performed By: #### M RSAPCR #### [address] [address] Electrolyte Balance 5.0 mEq/L Normal 4.0-15.0 [facility] [place] Comment on above: Performed By: #### M RSAPCR #### [place] [id number] Globulin 2.9 G/dL Normal [facility] ([place] Comment on above: Performed By: #### M RSAPCR #### [address] [address] Glucose [Mass/Vol] 111 mg/dL High 83-110 [facility] ([place] Comment on above: Performed By: #### M RSAPCR #### [place] [id number] Potassium [Moles/Vol] 3.4 mmol/L Low 3.5-5.1 [facility] ([place] Comment on above: Performed By: #### M RSAPCR #### [address] [address] Sodium [Moles/Vol] 146 mmol/L High 136-145 [facility] ([place] Comment on above: Performed By: #### M RSAPCR #### [address] [address] Total Protein 6.1 G/dL Low 6.4-8.2 [facility] ([place] Comment on above: Performed By: #### M RSAPCR #### [address] [address] Urea nitrogen [Mass/Vol] 30 mg/dL High 7-18 [facility] ([place] Comment on above: Performed By: #### M RSAPCR #### [address] [address] LABORATORYOrdered By: SYSTEM SYSTEM on 04-24-2024 Albumin [...] C BC, ADIFF, ANEU, BMP, GFR #### [address] [address] Basophils/100 WBC (Bld) 0.1 % Normal 0.0-2.5 A O Workflow SS Comment on above: Performed By: #### C BC, ADIFF, ANEU, BMP, GFR #### [address] [address] Eosinophil, Absolute 0.0 103/mcL Normal 0.0-0.4 AO Workflow SS Comment on above: Performed By: #### C BC, ADIFF, ANEU, BMP, GFR #### [address] [address] Eosinophils/100 WBC (Bld) 0.1 % Normal 0.0-7.0 AO Workflow SS Comment on above: Performed By: #### C BC, ADIFF, ANEU, BMP, GFR #### [address] [address] Lymphocyte, Absolute 0.4 103/mcL Low 0.8-3.9 AO Workflow SS Comment on above: Performed By: #### C BC, ADIFF, ANEU, BMP, GFR #### [address] [address] Lymphocytes/100 WBC (Bld) 6.9 % Low 10.0-50.0 AO Workflow SS Comment on above: Performed By: #### C BC, ADIFF, ANEU, BMP, GFR #### [address] [address] Monocyte, Absolute 0.1 103/mcL Low 0.2-1.0 AO Wo rkflow SS Comment on above: Performed By: #### C BC, ADIFF, ANEU, BMP, GFR #### [address] [address] Monocytes/100 WBC (Bld) 2.7 % Normal 1.7-13.0 A O Workflow SS Comment on above: Performed By: #### C BC, ADIFF, ANEU, BMP, GFR #### [address] [address] Neutrophils/100 WBC (Bld) 90.2 % High 37.0-80.0 AO Workflow SS Comment on above: Performed By: #### C BC, ADIFF, ANEU, BMP, GFR #### [address] [address] .GFRon 04-23-2024 GFR 95 ml/min/1.73sqm Normal [facility] ([place]) Comment on above: Result Comment: GFR Population [...] C BC, ADIFF, ANEU, BMP, GFR #### [address] [address] GFR Non- 79 ml/min/1.73sqm Normal [facility] ([place]) Comment on above: Result Comment: GFR Population [...] C BC, ADIFF, ANEU, BMP, GFR #### [place] [address] .NEUABSOrdered By: SYSTEM SY STEM on 04-23-2024 Neutrophil, Absolute 4.8 103/mcL Normal 2.9-6.2 AO Workflow SS Comment on above: Performed By: #### C BC, ADIFF, ANEU, BMP, GFR #### [place] [address] .Urinalysis Microscopic (AO) on 04-23-2024 UA RBC None Seen Normal None Seen [facility] ([place]) Comment on above: Performed By: #### C BC, ADIFF, ANEU, BMP, GFR #### [place] [address] UA Squam Epithelial None Seen Normal None Seen [facility] [place] Comment on above: Performed By: #### C BC, ADIFF, ANEU, BMP, GFR #### [address] [address] UA WBC None Seen Normal None Seen [facility] ([place] Comment on above: Performed By: #### C BC, ADIFF, ANEU, BMP, GFR #### [address] [address] CBCOrdered By: [employer] SYSTEM on 04-23-2024 Erythrocyte distribution width (RBC) [Ratio] 13.5 % Normal 11.5-14.5 AO Workflow SS Comment on above: Performed By: #### C BC, ADIFF, ANEU, BMP, GFR #### [place] [address] Hematocrit (Bld) [Volume fraction] 38.7 % Low 42.0-52.0 AO Workflow SS Comment on above: Performed By: #### C BC, ADIFF, ANEU, BMP, GFR #### [address] [address] MCH (RBC) [Entitic mass] 32.6 pg High 27.0-31.2 AO Workflow SS Comment on above: Performed By: #### C BC, ADIFF, ANEU, BMP, GFR #### [address] [address] MCHC 34.6 G/dL Normal 31.8-35.4 AO Workflow SS Comment on above: Performed By: #### C BC, ADIFF, ANEU, BMP, GFR #### [address] [address] MCV (RBC) [Entitic vol] 94.4 fL High 80.0-94.0 A O Workflow SS Comment on above: Performed By: #### C BC, ADIFF, ANEU, BMP, GFR #### [address] [address] Platelet mean volume (Bld) [Entitic vol] 7.7 fL Normal 7.4-10.4 AO Workflow SS Comment on above: Performed By: #### C BC, ADIFF, ANEU, BMP, GFR #### [address] [address] CBCon 04-23-2024 Hgb 13.4 G/dL Low 14.0-18.0 [facility] ([place] Comment on above: Performed By: #### C BC, ADIFF, ANEU, BMP, GFR #### [address] [address] Platelet 235 10 3/mcL Normal 130-400 [facility] ([place]) Comment on above: Performed By: #### C BC, ADIFF, ANEU, BMP, GFR #### [address] [address] RBC 4.10 10 6/mcL Normal 4.04-6.13 [facility] ([place]) Comment on above: Performed By: #### C BC, ADIFF, ANEU, BMP, GFR #### [address] [address] WBC 5.3 10 3/mcL Normal 4.6-10.8 [facility] ([place]) Comment on above: Performed By: #### C BC, ADIFF, ANEU, BMP, GFR #### [address] [address] CMPon 04-23-2024 Albumin Level 3.1 G/dL Low 3.4-4.8 [facility] ([place]) Comment on above: Performed By: #### C BC, ADIFF, ANEU, BMP, GFR #### [address] [address] ALT [Catalytic activity/Vol] 125 U/L High 16-63 [facility] ([place]) Comment on above: Performed By: #### C BC, ADIFF, ANEU, BMP, GFR #### [address] [address] AST [Catalytic activity/Vol] 79 U/L High 10-40 [facility] ([place]) Comment on above: Performed By: #### C BC, ADIFF, ANEU, BMP, GFR #### [address] [address] Bili Total 0.4 mg/dL Normal 0.2-1.0 [facility] ([place]) Comment on above: Result Comment: Use of this assay is not recommended for patients undergoing treatment with eltrombopag due to the potential for falsely elevated results. Performed By: #### C BC, ADIFF, ANEU, BMP, GFR #### [address] [address] BUN/Creatinine Ratio 33 ratio High 7-27 [facility] ([place]) Comment on above: Performed By: #### C BC, ADIFF, ANEU, BMP, GFR #### [address] [address] Calcium [Mass/Vol] 8.7 mg/dL Normal 8.4-10.2 [facility] ([place] Comment on above: Performed By: #### C BC, ADIFF, ANEU, BMP, GFR #### [place] [address] Chloride [Moles/Vol] 107 mmol/L Normal 98-107 [facility] ([place]) Comment on above: Performed By: #### C BC, ADIFF, ANEU, BMP, GFR #### [place] [address] CO2 [Moles/Vol] 29 mmol/L Normal 23-31 [facility] ([place] Comment on above: Performed By: #### C BC, ADIFF, ANEU, BMP, GFR #### [place] [address] Creatinine [Mass/Vol] 0.93 mg/dL Normal 0.70-1.30 [facility] ([place] Comment on above: Performed By: #### C BC, ADIFF, ANEU, BMP, GFR #### [place] [address] Electrolyte Balance 8.0 mEq/L Normal 4.0-15.0 [facility] [place] Comment on above: Performed By: #### C BC, ADIFF, ANEU, BMP, GFR #### [place] [address] Glucose [Mass/Vol] 173 mg/dL High 83-110 [facility] ([place] Comment on above: Performed By: #### C BC, ADIFF, ANEU, BMP, GFR #### [place] [address] Potassium [Moles/Vol] 3.9 mmol/L Normal 3.5-5.1 [facility] ([place] Comment on above: Performed By: #### C BC, ADIFF, ANEU, BMP, GFR #### [place] [address] Sodium [Moles/Vol] 144 mmol/L Normal 136-145 [facility] ([place] Comment on above: Performed By: #### C BC, ADIFF, ANEU, BMP, GFR #### [place] [id number] Total Protein 6.2 G/dL Low 6.4-8.2 [facility] ([place]) Comment on above: Performed By: #### C BC, ADIFF, ANEU, BMP, GFR #### [place] [address] Urea nitrogen [Mass/Vol] 31 mg/dL High 7-18 [facility] ([place]) Comment on above: Performed By: #### C BC, ADIFF, ANEU, BMP, GFR #### [address] [address] CMPOrdered By: SYSTEM SYSTEM on 04-23-2024 Albumin/Globulin [Mass ratio] 1.0 {ratio} Low 1.1-2.5 AO ADM SS Comment on above: Performed By: #### C BC, ADIFF, ANEU, BMP, GFR #### [address] [address] ALP [Catalytic activity/Vol] 183 U/L High 40-135 AO ADM SS Comment on above: Performed By: #### C BC, ADIFF, ANEU, BMP, GFR #### [address] [address] Globulin 3.1 G/dL Normal AO ADM SS Comment on above: Performed By: #### C BC, ADIFF, ANEU, BMP, GFR #### [place] [address] LABORATORYOrdered By: Tan De León on 04-23-2024 Adenovirus DNA DARYA+non-probe Ql (Nph) Not Detected *NA* (04/23/24 10:33 AM) Invalid Interpretation Code Not Detected AH Auto Viro/Sero SS B. parapertussis [id number] DNA DARYA+non-probe Ql (Nph) Not Detected *NA* [...] Code Not Detected AH Auto Viro/Sero SS Rhinovirus+Enterovirus RNA DARYA+non-probe Ql (Nph) Not Detected *NA* [...] his assay has been validated in the [facility] for use with nasopharyngeal specimens in [facility]. If a non-validated specimen or test [...] Comment on above: Result Comment: Note s [id number] MRSA PCR Int MRSA DNA not detected by Real-Time Polymerase [...] BC, ADIFF, ANEU, BMP, GFR #### [place] [address] MRI SPINE LUMBAR W/O CONTRAS Ton 04-23-2024 [...] severe facet arthrosis causes severe left and uutm-tu-[id number] right foraminal narrowing without central canal stenosis. [...] severe bilateral L4-5, and severe left and [id number]-sd-[id number] right at L5-S1. 4. Level by level findings as described. Interpreted by: Modesto Lunsford MD Preliminary Report By: Modesto Lunsford MD Electronically signed By Modesto Lunsford MD Dictated Date: 04/23/2024 10:34:51 AM Prelim Date: 04/23/2024 10:53:15 AM Sign Date: 04/23/2024 10:53:15 AM Ordering Provider: O[facility] [place] MRSAPCRon 04-23-2024 MRSA (PCR) Not detected Normal Not Detected [facility] ([place]) Comment on above: Result Comment: [place] [id number] Performed By: #### M RSAPCR #### [facility] [address] [place] [address] MRSA PCR Int Normal [facility] ([place]) Comment on above: Result Comment: MRSA DNA [...] Below Performed By: #### M RSAPCR #### [facility] [address] [place] [address] MYCOon 04-23-2024 Mycoplasma IgM Positive Abnormal [facility] ([place]) Comment on above: Order Comment: Resul t [place] [facility] [place] [phone] 04/23/2024 15:31:57 EDT.Call[facility] and [facility] Archie May[email or web address] Result Comment: INTE RPRETATION OF MYCOPLASMA IgM: Negative: IgM to M. pneumoniae Absent, or at levels below the assay limit of detection. Positive: IgM to M. pneumoniae Present. Invalid: Test results are invalid due to invalid internal control. Assay was performed in duplicate. Repeat testing is suggested if clinically indicated. Performed By: #### C BC, ADIFF, ANEU, BMP, GFR #### [place] [address] [address] RESCVIDon 04-23-2024 Adenovirus Not detected Normal Not Detected [facility] ([place]) Comment on above: Performed By: #### C BC, ADIFF, ANEU, BMP, GFR #### [place] [address] [address] Bordetella Parapertussis Not detected Normal Not Detected [facility] ([place]) Comment on above: Performed By: #### C BC, ADIFF, ANEU, BMP, GFR #### [place] [address] [address] Bordetella Pertussis Not detected Normal Not Detected [facility] ([place]) Comment on above: Performed By: #### C BC, ADIFF, ANEU, BMP, GFR #### [address] [address] Chlamydophila pneumoniae Not detected Normal Not Detected [facility] ([place]) Comment on above: Performed By: #### C BC, ADIFF, ANEU, BMP, GFR #### [address] [address] Coronavirus 229E (Not COVID-19) Not detected Normal Not Detected [facility] ([place]) Comment on above: Performed By: #### C BC, ADIFF, ANEU, BMP, GFR #### [address] [address] Coronavirus HKU1 (Not COVID-19) Not detected Normal Not Detected [facility] ([place]) Comment on above: Performed By: #### C BC, ADIFF, ANEU, BMP, GFR #### [address] [address] Coronavirus NL63 (Not COVID-19) Not detected Normal Not Detected [facility] ([place]) Comment on above: Performed By: #### C BC, ADIFF, ANEU, BMP, GFR #### [address] [address] Coronavirus OC43 (Not COVID-19) Not detected Normal Not Detected [facility] ([place]) Comment on above: Performed By: #### C BC, ADIFF, ANEU, BMP, GFR #### [address] [address] Human Metapneumovirus Not detected Normal Not Detected [facility] ([place]) Comment on above: Performed By: #### C BC, ADIFF, ANEU, BMP, GFR #### [address] [address] Influenza A Not detected Normal Not Detected [facility] ([place] Comment on above: Performed By: #### C BC, ADIFF, ANEU, BMP, GFR #### [address] [address] Influenza B Not detected Normal Not Detected [facility] ([place] Comment on above: Performed By: #### C BC, ADIFF, ANEU, BMP, GFR #### [address] [address] Mycoplasma pneumoniae Not detected Normal Not Detected [facility] ([place] Comment on above: Performed By: #### C BC, ADIFF, ANEU, BMP, GFR #### [address] [address] Parainfluenza 1 Not detected Normal Not Detected [facility] [place] Comment on above: Performed By: #### C BC, ADIFF, ANEU, BMP, GFR #### [address] [address] Parainfluenza 2 Not detected Normal Not Detected [facility] [place] Comment on above: Performed By: #### C BC, ADIFF, ANEU, BMP, GFR #### [address] [address] Parainfluenza 3 Not detected Normal Not Detected [facility] [place] Comment on above: Performed By: #### C BC, ADIFF, ANEU, BMP, GFR #### [address] [address] Parainfluenza 4 Not detected Normal Not Detected [facility] [place] Comment on above: Performed By: #### C BC, ADIFF, ANEU, BMP, GFR #### [address] [address] Respiratory Syncytial Virus Not detected Normal Not Detected [facility] ([place] Comment on above: Performed By: #### C BC, ADIFF, ANEU, BMP, GFR #### [address] [address] Rhinovirus/Enterovirus Not detected Normal Not Detecte d [facility] ([place] Comment on above: Performed By: #### C BC, ADIFF, ANEU, BMP, GFR #### [address] [address] SARS-CoV-2 (COVID-19) RNA DARYA+probe Ql (Unsp spec) Not detected Normal Not Detected [facility] ([place]) Comment on above: Result Comment: This assay has been validated in the [facility] for use with nasopharyngeal specimens in [facility]. If a non-validated specimen or test [...] health authorities. Performed By: #### C BC, ABDIEL, ANEU, BMP, GFR #### [place] [id number] [place], [place] [address] UAon 04-23-2024 Color (U) Dark yellow Normal [facility] ([place]) Comment on above: Performed By: #### C BC, ABDIEL, ANEU, BMP, GFR #### [place] [address] [place], [place] [address] Glucose (U) [Mass/Vol] Negative Normal Negative [facility] ([place]) Comment on above: Performed By: #### C BC, IVETT MEADOWS, BMP, GFR #### [address] [address] Ketones Ql (U) 15 mg/dL Abnormal Negative [facility] ([place]) Comment on above: Performed By: #### C BC, ADIFF, ANEU, BMP, GFR #### [address] [address] UA Appear Clear Normal Clear [facility] ([place] Comment on above: Performed By: #### C BC, ADIFF, ANEU, BMP, GFR #### [address] [address] UA Blood Negative Normal Negative [facility] ([place] Comment on above: Performed By: #### C BC, ADIFF, ANEU, BMP, GFR #### [place] [address] UA Leuk Est Negative Normal Negative [facility] ([place] Comment on above: Performed By: #### C BC, ADIFF, ANEU, BMP, GFR #### [place] [address] UA Nitrite Negative Normal Negative [facility] ([place] Comment on above: Performed By: #### C BC, ADIFF, ANEU, BMP, GFR #### [place] [address] UA pH 6.0 Normal 5.0 - 8.0 [facility] ([place]) Comment on above: Performed By: #### C BC, ADIFF, ANEU, BMP, GFR #### [place] [address] UA Protein 30 mg/dL Normal Negative [facility] ([place] Comment on above: Performed By: #### C BC, ADIFF, ANEU, BMP, GFR #### [place] [address] UA Spec Grav >=1.030 Abnormal 1.015-1.025 [facility] ([place]) Comment on above: Performed By: #### C BC, ADIFF, ANEU, BMP, GFR #### [place] [address] UA Specimen Type Clean Catch Normal [facility] ([place]) Comment on above: Performed By: #### C BC, ADIFF, ANEU, BMP, GFR #### [place] [address] [address] UA Urobilinogen >=8.0 Abnormal 0.2-1.0 [facility] ([place]) Comment on above: Performed By: #### C BC, ADIFF, ANEU, BMP, GFR #### [place] [address] [address] Urobilinogen (U) [Mass/Vol] Negative Normal Negative [facility] ([place]) Comment on above: Performed By: #### C BC, ADIFF, ANEU, BMP, GFR #### [place] [address] [address] .Auto Diffon 04-22-2024 Basophil, Absolute 0.1 10 3/mcL Normal 0.0-0.2 [facility] ([place]) Comment on above: Performed By: #### M RSAPCR #### [address] [address] Basophils/100 WBC (Bld) 0.6 % Normal 0.0-2.5 [facility] ([place]) Comment on above: Performed By: #### M RSAPCR #### [address] [address] Eosinophil, Absolute 0.4 10 3/mcL Normal 0.0-0.4 [facility] ([place]) Comment on above: Performed By: #### M RSAPCR #### [address] [address] Eosinophils/100 WBC (Bld) 3.4 % Normal 0.0-7.0 [facility] ([place]) Comment on above: Performed By: #### M RSAPCR #### [address] [address] Lymphocyte, Absolute 0.7 10 3/mcL Low 0.8-3.9 [facility] ([place] Comment on above: Performed By: #### M RSAPCR #### [address] [address] Lymphocytes/100 WBC (Bld) 6.6 % Low 10.0-50.0 [facility] ([place]) Comment on above: Performed By: #### M RSAPCR #### [address] [address] Monocyte, Absolute 0.9 10 3/mcL Normal 0.2-1.0 [facility] ([place]) Comment on above: Performed By: #### M RSAPCR #### [address] [address] Monocytes/100 WBC (Bld) 8.5 % Normal 1.7-13.0 [facility] ([place]) Comment on above: Performed By: #### M RSAPCR #### [address] [address] Neutrophils/100 WBC (Bld) 80.9 % High 37.0-80.0 [facility] ([place]) Comment on above: Performed By: #### M RSAPCR #### [address] [address] .GFRon 04-22-2024 GFR Non- 115 ml/min/1.73sqm Normal [facility] ([place]) Comment on above: Result Comment: GFR Population [...] meters Performed By: #### M RSAPCR #### [address] [address] GFR 139 ml/min/1.73sqm Normal [facility] ([place]) Comment on above: Result Comment: GFR Population [...] meters Performed By: #### M RSAPCR #### [address] [address] .MDWon 04-22-2024 Monocyte Distribution Width 19.45 Normal 0.00-20.00 [facility] ([place]) Comment on above: Result Comment: For ED adult patients suspected of sepsis, MDW<=20.0 does not rule out sepsis or risk of sepsis Performed By: #### M RSAPCR #### [address] [address] .NEUABSon 04-22-2024 Neutrophil, Absolute 8.8 10 3/mcL High 2.9-6.2 [facility] ([place] Comment on above: Performed By: #### M RSAPCR #### [address] [address] BMPon 04-22-2024 BUN/Creatinine Ratio 33 ratio High 7-27 [facility] ([place]) Comment on above: Performed By: #### M RSAPCR #### [address] [address] Calcium [Mass/Vol] 8.9 mg/dL Normal 8.4-10.2 [facility] ([place] Comment on above: Performed By: #### M RSAPCR #### [address] [address] Chloride [Moles/Vol] 106 mmol/L Normal 98-107 [facility] ([place] Comment on above: Performed By: #### M RSAPCR #### [address] [address] CO2 [Moles/Vol] 30 mmol/L Normal 23-31 [facility] ([place] Comment on above: Performed By: #### M RSAPCR #### [place] [id number] Creatinine [Mass/Vol] 0.67 mg/dL Low 0.70-1.30 [facility] ([place] Comment on above: Performed By: #### M RSAPCR #### [place] [id number] Electrolyte Balance 9.0 mEq/L Normal 4.0-15.0 [facility] [place] Comment on above: Performed By: #### M RSAPCR #### [place] [id number] Glucose [Mass/Vol] 111 mg/dL High 83-110 [facility] ([place] Comment on above: Performed By: #### M RSAPCR #### [place] [id number] Potassium [Moles/Vol] 3.9 mmol/L Normal 3.5-5.1 [facility] ([place] Comment on above: Performed By: #### M RSAPCR #### [place] [id number] Sodium [Moles/Vol] 145 mmol/L Normal 136-145 [facility] ([place] Comment on above: Performed By: #### M RSAPCR #### [place] [address] Urea nitrogen [Mass/Vol] 22 mg/dL High 7-18 [facility] ([place]) Comment on above: Performed By: #### M RSAPCR #### [address] [address] CBCon 04-22-2024 Erythrocyte distribution width (RBC) [Ratio] 13.6 % Normal 11.5-14.5 [facility] ([place]) Comment on above: Performed By: #### M RSAPCR #### [place] [id number] Hematocrit (Bld) [Volume fraction] 42.5 % Normal 42.0-52.0 [facility] ([place]) Comment on above: Performed By: #### M RSAPCR #### [place] [id number] Hgb 14.8 G/dL Normal 14.0-18.0 [facility] ([place]) Comment on above: Performed By: #### M RSAPCR #### [place] [id number] MCH (RBC) [Entitic mass] 32.9 pg High 27.0-31.2 [facility] ([place]) Comment on above: Performed By: #### M RSAPCR #### [place] [address] MCHC 34.7 G/dL Normal 31.8-35.4 [facility] ([place]) Comment on above: Performed By: #### M RSAPCR #### [place] [address] MCV (RBC) [Entitic vol] 94.8 fL High 80.0-94.0 [facility] ([place]) Comment on above: Performed By: #### M RSAPCR #### [place] [id number] Platelet 223 10 3/mcL Normal 130-400 [facility] ([place]) Comment on above: Performed By: #### M RSAPCR #### [place] [address] Platelet mean volume (Bld) [Entitic vol] 7.3 fL Low 7.4-10.4 [facility] ([place]) Comment on above: Performed By: #### M RSAPCR #### [place] [id number] RBC 4.49 10 6/mcL Normal 4.04-6.13 [facility] ([place]) Comment on above: Performed By: #### M RSAPCR #### [place] [id number] WBC 10.8 10 3/mcL Normal 4.6-10.8 [facility] ([place]) Comment on above: Performed By: #### M RSAPCR #### [facility] [address] [place] [address] CVFLURVon 04-22-2024 FLU A PCR Negative Normal Negative [facility] ([place]) Comment on above: Performed By: #### M RSAPCR #### [place] [id number] [address] [place] [address] FLU B PCR Negative Normal Negative [facility] ([place]) Comment on above: Performed By: #### M RSAPCR #### [place] [id number] [address] [place] [address] RSV PCR Negative Normal Negative [facility] ([place]) Comment on above: Performed By: #### M RSAPCR #### [place] [address] SARS-CoV-2 (COVID-19) RNA DARYA+probe Ql (Unsp spec) Negative Normal Negative [facility] ([place]) Comment on above: Result Comment: Resu lts [...] results. Performed By: #### M RSAPCR #### [place] [address] LABORATORYOrdered By: Leida Combs on 04-22-2024 M. pneumoniae IgM IA Ql (S) Positive 9 *ABN* (04/22/24 10:09 PM) Invalid Interpretation Code AH Man Viro/Sero SS Comment on above: Interpretive [...] ng/L Male: 0-76 ng/L Testing performed on Viss using a homogeneous sandwich chemiluminescent immunoassay based on [employer] technology. No Panel Informationon 04-22 Legionella Urine Ag Presumptive negative for L. pneumophila serogroup 1 antigen in urine, suggesting no recent or current infection. Legionnaire's disease cannot be ruled out since other serogroups and species may also cause disease. [facility] Streptococcus Pneumoniae Urine Antig Presumptive negative for pneumococcal pneumonia, suggesting no current or recent pneumococcal infection. Infection due to Strep pneumoniae cannot be ruled out since the antigen present in the sample may be below the detection limit of the test. [facility] Comment on above: This test has not be en evaluated on patients taking antibiotics for greater than 24 hours or on patients who have recently completed an antibiotic regimen. The accuracy of this test has not been proven in young children. PBNPon 04-22-2024 Natriuretic peptide B (Bld) [Mass/Vol] 525 pg/mL High 0-450 [facility] ([place]) Comment on above: Result Comment: NT-p roBNP results of less than 300 pg/mL effectively rules out acute congestive heart failure with 99% negative predictive value. Performed By: #### C BC, ADIFF, ANEU, FERR, FE, CMP, GFR, LIPID #### [facility] [address] [place], [place] [address] #### B12 #### [id number] [place], [place] [address]Son 04-22-2024 High Sensitivity Troponin I 6 ng/L Normal 0-76 [facility] ([place]) Comment on above: Result Comment: High Sensitive Troponin I Reference Ranges: Female: 0-51 ng/L Male: 0-76 ng/L Testing performed on Viss using a homogeneous sandwich chemiluminescent immunoassay based on [employer] technology. Performed By: #### C BC, ADIFF, ANEU, FERR, FE, CMP, GFR, LIPID #### [facility] [address] [place], [place] [address] #### B12 #### [place] [id number] [place] [address] XR CHEST 1 VIEWon 04-22-2024 XR CHEST [...] lung patchy opacities may represent a developing infectious/inflammat ory process such as pneumonia. Follow-up to resolution is recommended. I have personally reviewed the images and agree with the resident's findings and interpretation. Interpreted by: Ephraim Quinones Preliminary Report By: Diomedes Felix Electronically signed By Ephraim Quinones Dictated Date: 04/22/2024 8:10:38 PM Prelim Date: 04/22/2024 8:17:13 PM Sign Date: 04/22/2024 10:33:35 PM Ordering Provider: ANTOINE Smallwood [facility] ([place]) XR SPINE LUMBAR AP/LATon XR SPINE LUMBAR [...] with vertebral cement augmentation. No significant spondylolisthesis. [id number] multilevel degenerative changes with intervertebral disc height [...] 04/22/2024 10:32:15 PM Ordering Provider: ANTOINE Smallwood [facility] ([place]) B12on 02-20-2024 Cobalamin (Vitamin B12) [Mass/Vol] 696 pg/mL Normal 211-911 [facility] Comment on above: Performed By: #### C BC, ADIFF, ANEU, BMP, GFR #### [place] [address] .Auto Diffon 02-19-2024 Basophil, Absolute 0.0 10 3/mcL Normal 0.0-0.2 [facility] ([place]) Comment on above: Performed By: #### C BC, ADIFF, ANEU, FERR, FE, CMP, GFR, LIPID #### [place] [address] #### B12 #### [place] [address] Basophils/100 WBC (Bld) 0.5 % Normal 0.0-2.5 [facility] ([place]) Comment on above: Performed By: #### C BC, ADIFF, ANEU, FERR, FE, CMP, GFR, LIPID #### [place] [address] #### B12 #### [address] [address] Eosinophil, Absolute 0.2 10 3/mcL Normal 0.0-0.4 [facility] ([place]) Comment on above: Performed By: #### C BC, ADIFF, ANEU, FERR, FE, CMP, GFR, LIPID #### [place] [address] #### B12 #### [place] [address] Eosinophils/100 WBC (Bld) 3.2 % Normal 0.0-7.0 [facility] ([place]) Comment on above: Performed By: #### C BC, ADIFF, ANEU, FERR, FE, CMP, GFR, LIPID #### [address] [address] #### B12 #### [address] [address] Lymphocyte, Absolute 0.9 10 3/mcL Normal 0.8-3.9 [facility] ([place]) Comment on above: Performed By: #### C BC, ADIFF, ANEU, FERR, FE, CMP, GFR, LIPID #### [address] [address] #### B12 #### [address] [address] Lymphocytes/100 WBC (Bld) 12.6 % Normal 10.0-50.0 [facility] ([place]) Comment on above: Performed By: #### C BC, ADIFF, ANEU, FERR, FE, CMP, GFR, LIPID #### [address] [address] #### B12 #### [address] [address] Monocyte, Absolute 0.8 10 3/mcL Normal 0.2-1.0 [facility] ([place]) Comment on above: Performed By: #### C BC, ADIFF, ANEU, FERR, FE, CMP, GFR, LIPID #### [place] [address] #### B12 #### [address] [address] Monocytes/100 WBC (Bld) 10.9 % Normal 1.7-13.0 [facility] ([place]) Comment on above: Performed By: #### C BC, ADIFF, ANEU, FERR, FE, CMP, GFR, LIPID #### [place] [address] #### B12 #### [address] [address] Neutrophils/100 WBC (Bld) 72.8 % Normal 37.0-80.0 [facility] ([place]) Comment on above: Performed By: #### C BC, ADIFF, ANEU, FERR, FE, CMP, GFR, LIPID #### [place] [address] [place], [place] [address] #### B12 #### [address] [address] .GFRon 02-19-2024 GFR 99 ml/min/1.73sqm Normal [facility] ([place]) Comment on above: Result Comment: GFR Population [...] BC, ADIFF, ANEU, BMP, GFR #### [place] [address] [place], [place] [address] GFR Non- 82 ml/min/1.73sqm Normal [facility] ([place]) Comment on above: Result Comment: GFR Population [...] C BC, ADIFF, ANEU, BMP, GFR #### [place] [address] .NEUABSon 02-19-2024 Neutrophil, Absolute 5.1 10 3/mcL Normal 2.9-6.2 [facility] ([place]) Comment on above: Performed By: #### C BC, ADIFF, ANEU, FERR, FE, CMP, GFR, LIPID #### [place] [address] #### B12 #### [place] [address] CBCon 02-19-2024 Erythrocyte distribution width (RBC) [Ratio] 14.3 % Normal 11.5-14.5 [facility] ([place]) Comment on above: Performed By: #### C BC, ADIFF, ANEU, FERR, FE, CMP, GFR, LIPID #### [place] [address] #### B12 #### [place] [address] Hematocrit (Bld) [Volume fraction] 37.8 % Low 42.0-52.0 [facility] ([place]) Comment on above: Performed By: #### C BC, ADIFF, ANEU, FERR, FE, CMP, GFR, LIPID #### [place] [address] #### B12 #### [place] [address] Hgb 13.1 G/dL Low 14.0-18.0 [facility] ([place]) Comment on above: Performed By: #### C BC, ADIFF, ANEU, FERR, FE, CMP, GFR, LIPID #### [place] [address] #### B12 #### [place] [address] MCH (RBC) [Entitic mass] 32.6 pg High 27.0-31.2 [facility] ([place]) Comment on above: Performed By: #### C BC, ADIFF, ANEU, FERR, FE, CMP, GFR, LIPID #### [place] [address] #### B12 #### [place] [address] MCHC 34.7 G/dL Normal 31.8-35.4 [facility] ([place]) Comment on above: Performed By: #### C BC, ADIFF, ANEU, FERR, FE, CMP, GFR, LIPID #### [place] [address] #### B12 #### [place] [address] MCV (RBC) [Entitic vol] 94.1 fL High 80.0-94.0 [facility] ([place]) Comment on above: Performed By: #### C BC, ADIFF, ANEU, FERR, FE, CMP, GFR, LIPID #### [place] [address] #### B12 #### [place] [address] Platelet 233 10 3/mcL Normal 130-400 [facility] ([place]) Comment on above: Performed By: #### C BC, ADIFF, ANEU, FERR, FE, CMP, GFR, LIPID #### [place] [address] #### B12 #### [place] [address] Platelet mean volume (Bld) [Entitic vol] 6.9 fL Low 7.4-10.4 [facility] ([place]) Comment on above: Performed By: #### C BC, ADIFF, ANEU, FERR, FE, CMP, GFR, LIPID #### [place] [address] #### B12 #### [place] [address] RBC 4.02 10 6/mcL Low 4.04-6.13 [facility] ([place]) Comment on above: Performed By: #### C BC, ADIFF, ANEU, FERR, FE, CMP, GFR, LIPID #### [address] [address] #### B12 #### [address] [address] WBC 7.0 10 3/mcL Normal 4.6-10.8 [facility] ([place]) Comment on above: Performed By: #### C BC, ADIFF, ANEU, FERR, FE, CMP, GFR, LIPID #### [address] [address] #### B12 #### [address] [address] CMPon 02-19-2024 Albumin Level 3.6 G/dL Normal 3.4-4.8 [facility] ([place]) Comment on above: Performed By: #### C BC, ADIFF, ANEU, BMP, GFR #### [address] [address] Albumin/Globulin [Mass ratio] 1.2 {ratio} Normal 1.1-2.5 [facility] ([place]) Comment on above: Performed By: #### C BC, ADIFF, ANEU, BMP, GFR #### [address] [address] ALP [Catalytic activity/Vol] 102 U/L Normal 40-135 [facility] ([place]) Comment on above: Performed By: #### C BC, ADIFF, ANEU, BMP, GFR #### [address] [address] ALT [Catalytic activity/Vol] 24 U/L Normal 16-63 [facility] ([place]) Comment on above: Performed By: #### C BC, ADIFF, ANEU, BMP, GFR #### [address] [address] AST [Catalytic activity/Vol] 14 U/L Normal 10-40 [facility] ([place]) Comment on above: Performed By: #### C BC, ADIFF, ANEU, BMP, GFR #### [address] [address] Bili Total 0.5 mg/dL Normal 0.2-1.0 [facility] ([place]) Comment on above: Result Comment: Use of this assay is not recommended for patients undergoing treatment with eltrombopag due to the potential for falsely elevated results. Performed By: #### C BC, ADIFF, ANEU, BMP, GFR #### [place] [address] BUN/Creatinine Ratio 23 ratio Normal 7-27 [facility] ([place]) Comment on above: Performed By: #### C BC, ADIFF, ANEU, BMP, GFR #### [place] [address] Calcium [Mass/Vol] 8.7 mg/dL Normal 8.4-10.2 [facility] ([place]) Comment on above: Performed By: #### C BC, ADIFF, ANEU, BMP, GFR #### [place] [id number] Chloride [Moles/Vol] 104 mmol/L Normal 98-107 [facility] ([place]) Comment on above: Performed By: #### C BC, ADIFF, ANEU, BMP, GFR #### [place] [address] CO2 [Moles/Vol] 29 mmol/L Normal 23-31 [facility] ([place]) Comment on above: Performed By: #### C BC, ADIFF, ANEU, BMP, GFR #### [address] [address] Creatinine [Mass/Vol] 0.90 mg/dL Normal 0.70-1.30 [facility] ([place]) Comment on above: Performed By: #### C BC, ADIFF, ANEU, BMP, GFR #### [place] [id number] Electrolyte Balance 10.0 mEq/L Normal 4.0-15.0 [facility] ([place] Comment on above: Performed By: #### C BC, ADIFF, ANEU, BMP, GFR #### [address] [address] Globulin 2.9 G/dL Normal [facility] ([place]) Comment on above: Performed By: #### C BC, ADIFF, ANEU, BMP, GFR #### [address] [address] Glucose [Mass/Vol] 105 mg/dL Normal 83-110 [facility] ([place]) Comment on above: Performed By: #### C BC, ADIFF, ANEU, BMP, GFR #### [address] [address] Potassium [Moles/Vol] 4.1 mmol/L Normal 3.5-5.1 [facility] ([place]) Comment on above: Performed By: #### C BC, ADIFF, ANEU, BMP, GFR #### [address] [address] Sodium [Moles/Vol] 143 mmol/L Normal 136-145 [facility] ([place]) Comment on above: Performed By: #### C BC, ADIFF, ANEU, BMP, GFR #### [address] [address] Total Protein 6.5 G/dL Normal 6.4-8.2 [facility] ([place]) Comment on above: Performed By: #### C BC, ADIFF, ANEU, BMP, GFR #### [address] [address] Urea nitrogen [Mass/Vol] 21 mg/dL High 7-18 [facility] ([place]) Comment on above: Performed By: #### C BC, ADIFF, ANEU, BMP, GFR #### [address] [address] FEon 02-19-2024 Iron [Mass/Vol] 79 ug/dL Normal 65-175 [facility] ([place]) Comment on above: Performed By: #### C BC, ADIFF, ANEU, BMP, GFR #### [address] [address] [place] 02-19-2024 Ferritin [Mass/Vol] 511.0 ng/mL High 26.0-388.0 [facility] ([place]) Comment on above: Performed By: #### C BC, ADIFF, ANEU, FERR, FE, CMP, GFR, LIPID #### [address] [address] #### B12 #### [facility] [address] [place] [address] LIPIDon 02-19-2024 Cholesterol [Mass/Vol] 184 mg/dL Normal 0-200 [facility] ([place]) Comment on above: Result Comment: Chol esterol Reference Interval: Less than 200 Desirable 200-239 Borderline high risk 240 and above High risk Performed By: #### C BC, ADIFF, ANEU, BMP, GFR #### [address] [address] Cholesterol in HDL [Mass/Vol] 44 mg/dL Normal 40-60 [facility] ([place]) Comment on above: Performed By: #### C BC, ADIFF, ANEU, BMP, GFR #### [address] [address] Cholesterol in LDL [Mass/Vol] 125 mg/dL Normal 0-130 [facility] ([place]) Comment on above: Performed By: #### C BC, ADIFF, ANEU, BMP, GFR #### [address] [address] Triglyceride [Mass/Vol] 75 mg/dL Normal 0-150 [facility] ([place]) Comment on above: Result Comment: Trig lyceride Reference Interval: Less than 150 Normal 150-199 Borderline high risk 200-499 High risk 500 or higher Very high risk Performed By: #### C BC, ADIFF, ANEU, BMP, GFR #### [address] [address] MRI SPINE LUMBAR W/O CONTRAS Ton 11-18-2023 [...] 11/18/2023 3:56:09 PM Ordering Provider: KATHERINE Smallwood [facility] ([place]) .Auto Diffon 10-20-2023 Basophil, Absolute 0.0 10 3/mcL Normal 0.0-0.2 [facility] ([place]) Comment on above: Performed By: #### C BC, ADIFF, ANEU, BMP, GFR #### [address] [address] Basophils/100 WBC (Bld) 0.6 % Normal 0.0-2.5 [facility] ([place]) Comment on above: Performed By: #### C BC, ADIFF, ANEU, BMP, GFR #### [address] [address] Eosinophil, Absolute 0.5 10 3/mcL High 0.0-0.4 [facility] ([place]) Comment on above: Performed By: #### C BC, ADIFF, ANEU, BMP, GFR #### [address] [address] Eosinophils/100 WBC (Bld) 7.2 % High 0.0-7.0 [facility] ([place]) Comment on above: Performed By: #### C BC, ADIFF, ANEU, BMP, GFR #### [address] [address] Lymphocyte, Absolute 1.0 10 3/mcL Normal 0.8-3.9 [facility] ([place]) Comment on above: Performed By: #### C BC, ADIFF, ANEU, BMP, GFR #### [address] [address] Lymphocytes/100 WBC (Bld) 14.0 % Normal 10.0-50.0 [facility] ([place]) Comment on above: Performed By: #### C BC, ADIFF, ANEU, BMP, GFR #### [address] [address] Monocyte, Absolute 0.7 10 3/mcL Normal 0.2-1.0 [facility] ([place]) Comment on above: Performed By: #### C BC, ADIFF, ANEU, BMP, GFR #### [address] [address] Monocytes/100 WBC (Bld) 9.8 % Normal 1.7-13.0 [facility] ([place]) Comment on above: Performed By: #### C BC, ADIFF, ANEU, BMP, GFR #### [address] [address] Neutrophils/100 WBC (Bld) 68.4 % Normal 37.0-80.0 [facility] ([place]) Comment on above: Performed By: #### C BC, ADIFF, ANEU, BMP, GFR #### [address] [address] .GFRon 10-20-2023 GFR 88 ml/min/1.73sqm Normal [facility] ([place]) Comment on above: Result Comment: GFR Population [...] C BC, ADIFF, ANEU, BMP, GFR #### [address] [address] GFR Non- 72 ml/min/1.73sqm Normal [facility] ([place]) Comment on above: Result Comment: GFR Population [...] C BC, ADIFF, ANEU, BMP, GFR #### [address] [address] .NEUABSon 10-20-2023 Neutrophil, Absolute 4.8 10 3/mcL Normal 2.9-6.2 [facility] ([place]) Comment on above: Performed By: #### C BC, ADIFF, ANEU, BMP, GFR #### [address] [address] CBCon 10-20-2023 Erythrocyte distribution width (RBC) [Ratio] 15.2 % High 11.5-14.5 [facility] ([place]) Comment on above: Performed By: #### C BC, ADIFF, ANEU, BMP, GFR #### [place] [address] Hematocrit (Bld) [Volume fraction] 41.4 % Low 42.0-52.0 [facility] ([place]) Comment on above: Performed By: #### C BC, ADIFF, ANEU, BMP, GFR #### [place] [id number] Hgb 14.3 G/dL Normal 14.0-18.0 [facility] ([place]) Comment on above: Performed By: #### C BC, ADIFF, ANEU, BMP, GFR #### [address] [address] MCH (RBC) [Entitic mass] 31.5 pg High 27.0-31.2 [facility] ([place]) Comment on above: Performed By: #### C BC, ADIFF, ANEU, BMP, GFR #### [place] [address] MCHC 34.4 G/dL Normal 31.8-35.4 [facility] ([place]) Comment on above: Performed By: #### C BC, ADIFF, ANEU, BMP, GFR #### [address] [address] MCV (RBC) [Entitic vol] 91.5 fL Normal 80.0-94.0 [facility] ([place]) Comment on above: Performed By: #### C BC, ADIFF, ANEU, BMP, GFR #### [address] [address] Platelet 217 10 3/mcL Normal 130-400 [facility] ([place]) Comment on above: Performed By: #### C BC, ADIFF, ANEU, BMP, GFR #### [address] [address] Platelet mean volume (Bld) [Entitic vol] 6.9 fL Low 7.4-10.4 [facility] ([place]) Comment on above: Performed By: #### C BC, ADIFF, ANEU, BMP, GFR #### [address] [address] RBC 4.53 10 6/mcL Normal 4.04-6.13 [facility] ([place]) Comment on above: Performed By: #### C BC, ADIFF, ANEU, BMP, GFR #### [address] [address] WBC 7.1 10 3/mcL Normal 4.6-10.8 [facility] Comment on above: Performed By: #### C BC, ADIFF, ANEU, BMP, GFR #### [address] [address] CMPon 10-20-2023 Albumin Level 3.6 G/dL Normal 3.4-4.8 [facility] Comment on above: Performed By: #### C BC, ADIFF, ANEU, BMP, GFR #### [address] [address] Albumin/Globulin [Mass ratio] 1.2 {ratio} Normal 1.1-2.5 [facility] Comment on above: Performed By: #### C BC, ADIFF, ANEU, BMP, GFR #### [address] [address] ALP [Catalytic activity/Vol] 94 U/L Normal 40-135 [facility] Comment on above: Performed By: #### C BC, ADIFF, ANEU, BMP, GFR #### [address] [address] ALT [Catalytic activity/Vol] 34 U/L Normal 16-63 [facility] ([place]) Comment on above: Performed By: #### C BC, ADIFF, ANEU, BMP, GFR #### [address] [address] AST [Catalytic activity/Vol] 24 U/L Normal 10-40 [facility] ([place]) Comment on above: Performed By: #### C BC, ADIFF, ANEU, BMP, GFR #### [address] [address] Bili Total 0.4 mg/dL Normal 0.2-1.0 [facility] ([place]) Comment on above: Result Comment: Use of this assay is not recommended for patients undergoing treatment with eltrombopag due to the potential for falsely elevated results. Performed By: #### C BC, ADIFF, ANEU, BMP, GFR #### [address] [address] BUN/Creatinine Ratio 17 ratio Normal 7-27 [facility] ([place]) Comment on above: Performed By: #### C BC, ADIFF, ANEU, BMP, GFR #### [address] [address] Calcium [Mass/Vol] 8.8 mg/dL Normal 8.4-10.2 [facility] ([place]) Comment on above: Performed By: #### C BC, ADIFF, ANEU, BMP, GFR #### [address] [address] Chloride [Moles/Vol] 106 mmol/L Normal 98-107 [facility] ([place]) Comment on above: Performed By: #### C BC, ADIFF, ANEU, BMP, GFR #### [address] [address] CO2 [Moles/Vol] 32 mmol/L High 23-31 [facility] ([place]) Comment on above: Performed By: #### C BC, ADIFF, ANEU, BMP, GFR #### [address] [address] Creatinine [Mass/Vol] 1.00 mg/dL Normal 0.70-1.30 [facility] ([place]) Comment on above: Performed By: #### C BC, ADIFF, ANEU, BMP, GFR #### [address] [address] Electrolyte Balance 5.0 mEq/L Normal 4.0-15.0 [facility] [place] Comment on above: Performed By: #### C BC, ADIFF, ANEU, BMP, GFR #### [address] [address] Globulin 3.0 G/dL Normal [facility] ([place]) Comment on above: Performed By: #### C BC, ADIFF, ANEU, BMP, GFR #### [address] [address] Glucose [Mass/Vol] 120 mg/dL High 83-110 [facility] ([place]) Comment on above: Performed By: #### C BC, ADIFF, ANEU, BMP, GFR #### [place] [address] Potassium [Moles/Vol] 4.5 mmol/L Normal 3.5-5.1 [facility] ([place]) Comment on above: Performed By: #### C BC, ADIFF, ANEU, BMP, GFR #### [place] [id number] Sodium [Moles/Vol] 143 mmol/L Normal 136-145 [facility] ([place]) Comment on above: Performed By: #### C BC, ADIFF, ANEU, BMP, GFR #### [address] [address] Total Protein 6.6 G/dL Normal 6.4-8.2 [facility] ([place]) Comment on above: Performed By: #### C BC, ADIFF, ANEU, BMP, GFR #### [address] [address] Urea nitrogen [Mass/Vol] 17 mg/dL Normal 7-18 [facility] ([place]) Comment on above: Performed By: #### C BC, ADIFF, ANEU, BMP, GFR #### [address] [address] LABORATORYOrdered By: SYSTEM SYSTEM on 10-20-2023 Albumin [...] Cholesterol [Mass/Vol] 192 mg/dL Normal 0 - 2 00 mg/dL AO ADM SS Comment on above: [...] 10-20-2023 Cholesterol [Mass/Vol] 192 mg/dL Normal 0-200 [facility] ([place]) Comment on above: Result Comment: Chol esterol Reference Interval: Less than 200 Desirable 200-239 Borderline high risk 240 and above High risk Performed By: #### C BC, ADIFF, ANEU, BMP, GFR #### [address] [address] Cholesterol in HDL [Mass/Vol] 39 mg/dL Low 40-60 [facility] ([place]) Comment on above: Performed By: #### C BC, ADIFF, ANEU, BMP, GFR #### [address] [address] Cholesterol in LDL [Mass/Vol] 136 mg/dL High 0-130 [facility] ([place]) Comment on above: Performed By: #### C BC, ADIFF, ANEU, BMP, GFR #### [address] [address] Triglyceride [Mass/Vol] 85 mg/dL Normal 0-150 [facility] ([place]) Comment on above: Result Comment: Trig lyceride Reference Interval: Less than 150 Normal 150-199 Borderline high risk 200-499 High risk 500 or higher Very high risk Performed By: #### C BC, ADIFF, ANEU, BMP, GFR #### [address] [address] PSAon 10-20-2023 Prostate Specific Antigen 0.81 ng/mL Normal 0.00-4.00 [facility] ([place]) Comment on above: Performed By: #### C BC, ADIFF, ANEU, BMP, GFR #### [address] [address] [address] SPINE LUMBAR W/O CONTRAST on 08-11-2023 [...] moderate bilateral foraminal stenosis at L4-5. SOFT TISSUES/RETROPERITON EUM: No paraspinal mass is seen. Nonaneurysmal atherosclerotic [...] 08/11/2023 7:30:27 PM Ordering Provider: VANESSA JAIMES [facility] ([place] LABORATORYOrdered By: SYSTEM SYSTEM on 04-17-2023 Albumin [...] Invalid Interpretation Code 211 - 911 pg/mL AH ADM SS Ferritin [Mass/Vol] 345.0 ng/mL Invalid [...] Date Time Vital Sign Value Performing Clinician Facility 03-27-2025 13:28-0400 Body temperature 97.3 [degF] Katherine Brand [employer]SEKEEPING [employer] INSPECTOR-C Work Phone: [facility] 03-27-2025 13:28-0400 Diastolic blood pressure 71 mm[Hg] Katherine Brand HOUSEKEEPING ROOM INSPECTOR-C Work Phone: [facility] 03-27-2025 13:28-0400 Heart rate 95 /min Katherine Brand HOUSEKEEPING ROOM INSPECTOR-C Work Phone: [facility] 03-27-2025 13:28-0400 Inhaled oxygen flow rate 2 L/min Katherine Brand HOUSEKEEPING ROOM INSPECTOR-C Work Phone: [facility] 03-27-2025 13:28-0400 Respiratory rate 18 /min Katherine Brand HOUSEKEEPING ROOM INSPECTOR-C Work Phone: [facility] 03-27-2025 13:28-0400 SaO2% (BldA) [Mass fraction] 96 % Katherine Brand HOUSEKEEPING ROOM INSPECTOR-C Work Phone: [facility] 03-27-2025 13:28-0400 Systolic blood pressure 127 mm[Hg] Katherine Brand HOUSEKEEPING ROOM INSPECTOR-C Work Phone: [facility] 03-27-2025 02:42-0400 Body mass index (BMI) [Ratio] 25.5 kg/m2 Katherine Brand HOUSEKEEPING ROOM INSPECTOR-C Work Phone: [facility] 03-27-2025 02:42-0400 Body weight 74 kg Katherine Brand HOUSEKEEPING ROOM INSPECTOR-C Work Phone: [facility] 03-24-2025 11:16-0400 Body height 170.18 cm Katherine Brand HOUSEKEEPING ROOM INSPECTOR-C Work Phone: [facility] 03-23-2025 22:00-0400 Diastolic blood pressure 64 mm[Hg] Katherine Brand HOUSEKEEPING ROOM INSPECTOR-C Work Phone: [facility] 03-23-2025 22:00-0400 Heart rate 102 /min Katherine Brand HOUSEKEEPING ROOM INSPECTOR-C Work Phone: [facility] [facility] 03-23-2025 22:00-0400 Respiratory rate 21 /min 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 Phone: [facility] 03-23-2025 22:00-0400 SaO2% (BldA) [Mass fraction] 94 % 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 Phone: [facility] 03-23-2025 22:00-0400 Systolic blood pressure 117 mm[Hg] Katherinengozi Brand HOUSEKEEPING ROOM INSPECTOR-C Work Phone: [facility] 03-23-2025 20:00-0400 Body temperature 97.9 [degF] Katherinengozi Brand HOUSEKEEPING ROOM INSPECTOR-C Work Phone: [facility] 03-23-2025 16:53-0400 Body mass index (BMI) [Ratio] 27.4 kg/m2 Katherinengozi Brand HOUSEKEEPING ROOM INSPECTOR-C Work Phone: [facility] 03-23-2025 16:53-0400 Body weight 84.3 kg 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 Phone: [facility] 03-23-2025 15:59-0400 Body height 175.26 cm 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 Phone: [facility] 08-18-2024 15:56-0500 Diastolic Blood Pressure Non-Invasive 80 mm[Hg] SIERRA LOT DO [facility] 08-18-2024 15:56-0500 Heart rate 88 /min SIERRA LOT DO [facility] 08-18-2024 15:56-0500 Respiratory rate 16 /min SIERRA LOT DO [facility] 08-18-2024 15:56-0500 Systolic Blood Pressure Non-Invasive 145 mm[Hg] SIERRA TERESITAT DO [facility] 08-18-2024 14:28-0500 Body temperature 97.52 [degF] SIERRA LOEdxact [facility] 08-18-2024 14:28-0500 Body weight 77 kg SIERRA [employer]Ed[employer] [facility] 08-18-2024 14:28-0500 Diastolic Blood Pressure Non-Invasive 74 mm[Hg] SIERRA [employer] [facility] 08-18-2024 14:28-0500 Heart rate 93 /min SIERRA [employer] [facility] 08-18-2024 14:28-0500 Respiratory rate 16 /min SIERRA [employer] [facility] 08-18-2024 14:28-0500 Systolic Blood Pressure Non-Invasive 139 mm[Hg] SIERRA [employer] [facility] 05-01-2024 06:47-0400 Body temperature 97.7 [degF] FORREST CAO PARKING OFFICER-RIP AND GROOVE MACHINE OPERATOR [facility] 05-01-2024 06:47-0400 Diastolic Blood Pressure Non-Invasive 89 mm[Hg] FORREST CAO PARKING OFFICER-RIP AND GROOVE MACHINE OPERATOR [facility] 05-01-2024 06:47-0400 Heart rate 72 /min FORREST CAO PARKING OFFICER[employer]RIP AND GROOVE MACHINE OPERATOR [facility] 05-01-2024 06:47-0400 Reason For Taking VItal Signs FORREST CAO PARKING OFFICER[employer]RIP AND GROOVE MACHINE OPERATOR [facility] 05-01-2024 06:47-0400 Systolic Blood Pressure Non-Invasive 156 mm[Hg] FORREST CAO PARKING OFFICER-RIP AND GROOVE MACHINE OPERATOR [facility] 04-30-2024 19:14-0400 Body temperature 97.88 [degF] FORREST RUGGIEROERWIN PARKING OFFICER-RIP AND GROOVE MACHINE OPERATOR [facility] 04-30-2024 19:14-0400 Diastolic Blood Pressure Non-Invasive 84 mm[Hg] FORREST RUGGIEROERWIN PARKING OFFICER-RIP AND GROOVE MACHINE OPERATOR [facility] 04-30-2024 19:14-0400 Heart rate 92 /min FORREST RUGGIEROERWIN PARKING OFFICER-RIP AND GROOVE MACHINE OPERATOR [facility] 04-30-2024 19:14-0400 Reason For Taking VItal Signs FORREST RUGGIEROERWIN PARKING OFFICER-RIP AND GROOVE MACHINE OPERATOR [facility] 04-30-2024 19:14-0400 Systolic Blood Pressure Non-Invasive 158 mm[Hg] FORREST RUGGIEORERWIN PARKING OFFICER-RIP AND GROOVE MACHINE OPERATOR [facility] 04-30-2024 11:41-0400 Heart rate 65 /min FORREST RUGGIEROERWIN PARKING OFFICER-RIP AND GROOVE MACHINE OPERATOR [facility] 04-30-2024 07:31-0400 Body temperature 98.24 [degF] FORREST RUGGIEROERWIN PARKING OFFICER-RIP AND GROOVE MACHINE OPERATOR [facility] 04-30-2024 07:31-0400 Diastolic Blood Pressure Non-Invasive 90 mm[Hg] FORREST RUGGIEROERWIN PARKING OFFICER-RIP AND GROOVE MACHINE OPERATOR [facility] 04-30-2024 07:31-0400 Heart rate 87 /min FORREST RUGGIEROERWIN PARKING OFFICER[employer]RIP AND GROOVE MACHINE OPERATOR [facility] 04-30-2024 07:31-0400 Reason For Taking VItal Signs FORREST RUGGIEROERWIN PARKING OFFICER-RIP AND GROOVE MACHINE OPERATOR [facility] 04-30-2024 07:31-0400 Respiratory rate 18 /min FORREST CAO PARKING OFFICER-RIP AND GROOVE MACHINE OPERATOR [facility] 04-30-2024 07:31-0400 Systolic Blood Pressure Non-Invasive 175 mm[Hg] FORREST MONIKERWIN PARKING OFFICER-RIP AND GROOVE MACHINE OPERATOR [facility] 04-29-2024 18:38-0400 Respiratory rate 18 /min FORREST CAO PARKING OFFICER[employer]RIP AND GROOVE MACHINE OPERATOR [facility] 04-29-2024 11:27-0400 Respiratory rate 18 /min FORREST CAO PARKING OFFICER-RIP AND GROOVE MACHINE OPERATOR [facility] 04-26-2024 19:20-0400 Heart rate 95 /min FORREST MARCANOKIMBERLEEERWIN PARKING OFFICER-RIP AND GROOVE MACHINE OPERATOR [facility] 04-26-2024 13:56-0400 Body height 167.6 cm FORREST MONIKERWIN PARKING OFFICER-RIP AND GROOVE MACHINE OPERATOR [facility] 04-26-2024 13:56-0400 Body weight 84 kg FORREST CAO PARKING OFFICER-RIP AND GROOVE MACHINE OPERATOR [facility] 04-26-2024 13:56-0400 Body weight 29.9 kg/m2 FORREST MARCANOKIMBERLEEERWIN PARKING OFFICER-RIP AND GROOVE MACHINE OPERATOR [facility] 04-26-2024 10:52-0400 Blood Pressure Location OSMEL BURRELL PARKING OFFICER-RIP AND GROOVE MACHINE OPERATOR [facility] 04-26-2024 10:52-0400 Blood Pressure Method OSMEL BURRELL PARKING OFFICER-RIP AND GROOVE MACHINE OPERATOR [facility] 04-26-2024 10:52-0400 Respiratory rate 18 /min OSMEL BURRELL PARKING OFFICER[employer]RIP AND GROOVE MACHINE OPERATOR [facility] 04-26-2024 10:51-0400 Body temperature 97.7 [degF] OSMEL BURRELL PARKING OFFICER-RIP AND GROOVE MACHINE OPERATOR [facility] 04-26-2024 10:51-0400 Diastolic Blood Pressure Non-Invasive 87 mm[Hg] OSMEL HAWKINS-COOPER PARKING OFFICER-RIP AND GROOVE MACHINE OPERATOR [facility] 04-26-2024 10:51-0400 Heart rate 90 /min OSMEL BURRELL PARKING OFFICER[employer]RIP AND GROOVE MACHINE OPERATOR [facility] 04-26-2024 10:51-0400 Systolic Blood Pressure Non-Invasive 142 mm[Hg] OSMEL BURRELL PARKING OFFICER-RIP AND GROOVE MACHINE OPERATOR [facility] 04-26-2024 10:07-0400 Heart rate 86 /min OSMEL HAWKINS-COOPER PARKING OFFICER-RIP AND GROOVE MACHINE OPERATOR [facility] 04-26-2024 10:07-0400 Respiratory rate 18 /min OSMEL BURRELL PARKING OFFICER[employer]RIP AND GROOVE MACHINE OPERATOR [facility] 04-26-2024 06:35-0400 Body temperature 98.06 [degF] OSMEL BURRELL PARKING OFFICER-RIP AND GROOVE MACHINE OPERATOR [facility] 04-26-2024 06:35-0400 Diastolic Blood Pressure Non-Invasive 71 mm[Hg] OSMEL HAWKINS-COOPER PARKING OFFICER-RIP AND GROOVE MACHINE OPERATOR [facility] 04-26-2024 06:35-0400 Heart rate 94 /min OSMEL BURRELL PARKING OFFICER[employer]RIP AND GROOVE MACHINE OPERATOR [facility] 04-26-2024 06:35-0400 Reason For Taking VItal Signs OSMEL BURRELL PARKING OFFICER[employer]RIP AND GROOVE MACHINE OPERATOR [facility] 04-26-2024 06:35-0400 Respiratory rate 18 /min OSMEL BURRELL PARKING OFFICER-RIP AND GROOVE MACHINE OPERATOR [facility] 04-26-2024 06:35-0400 Systolic Blood Pressure Non-Invasive 157 mm[Hg] OSMEL HAWKINS-COOPER PARKING OFFICER-RIP AND GROOVE MACHINE OPERATOR [facility] 04-26-2024 06:14-0400 Heart rate 87 /min OSMEL BURRELL PARKING OFFICER[employer]RIP AND GROOVE MACHINE OPERATOR [facility] 04-26-2024 03:04-0400 Body temperature 97.88 [degF] OSMEL BURRELL PARKING OFFICER-RIP AND GROOVE MACHINE OPERATOR [facility] 04-26-2024 03:04-0400 Diastolic Blood Pressure Non-Invasive 89 mm[Hg] OSMEL HAWKINS-COOPER PARKING OFFICER-RIP AND GROOVE MACHINE OPERATOR [facility] 04-26-2024 03:04-0400 Heart rate 93 /min OSMEL BURRELL PARKING OFFICER[employer]RIP AND GROOVE MACHINE OPERATOR [facility] 04-26-2024 03:04-0400 Reason For Taking VItal Signs OSMEL BURRELL PARKING OFFICER-RIP AND GROOVE MACHINE OPERATOR [facility] 04-26-2024 03:04-0400 Systolic Blood Pressure Non-Invasive 168 mm[Hg] OSMEL HAWKINS-COOPER PARKING OFFICER-RIP AND GROOVE MACHINE OPERATOR [facility] 04-25-2024 23:26-0400 Reason For Taking VItal Signs OSMEL BURRELL PARKING OFFICER[employer]RIP AND GROOVE MACHINE OPERATOR [facility] 04-24-2024 15:40-0400 Heart rate 77 /min OSMEL HAWKINS-COOPER PARKING OFFICER-RIP AND GROOVE MACHINE OPERATOR [facility] 04-24-2024 06:40-0400 Heart rate 90 /min OSMEL HAWKINS-COOPER PARKING OFFICER[employer]RIP AND GROOVE MACHINE OPERATOR [facility] 04-22-2024 19:16-0400 Blood Pressure Cuff Size OSMEL BURRELL PARKING OFFICER[employer]RIP AND GROOVE MACHINE OPERATOR [facility] 04-22-2024 19:16-0400 Blood Pressure Location OSMEL BURRELL PARKING OFFICER[employer]RIP AND GROOVE MACHINE OPERATOR [facility] 04-22-2024 19:16-0400 Blood Pressure Method OSMEL BURRELL PARKING OFFICER-RIP AND GROOVE MACHINE OPERATOR [facility] 04-22-2024 18:00-0400 Body height 175.3 cm OSMEL BURRELL PARKING OFFICER[employer]RIP AND GROOVE MACHINE OPERATOR [facility] 04-22-2024 18:00-0400 Body weight 87.5 kg OSMEL BURRELL PARKING OFFICER[employer]RIP AND GROOVE MACHINE OPERATOR [facility] 10-02-2023 19:44-0500 Blood Pressure Cuff Size DR NAPOLEON RAWLS MD [facility] 10-02-2023 19:44-[address] NAPOLEON RAWLS MD [facility] 10-02-2023 19:44-[address] NAPOLEON RAWLS MD [facility] 10-02-2023 19:44-0500 Body height 175.[address] NAPOLEON RAWLS MD [facility] 10-02-2023 19:44-0500 Body temperature 96.98 [degF] DR NAPOLEON RAWLS MD [facility] 10-02-2023 19:44-0500 Body weight 87.[address] NAPOLEON RAWLS MD [facility] 10-02-2023 19:44-0500 Diastolic Blood Pressure Non-Invasive 91 mm[Hg] DR NAPOLEON RAWLS MD [facility] 10-02-2023 19:44-0500 Heart rate 90 /min DR NAPOLEON RAWLS MD [facility] 10-02-2023 19:44-0500 Reason For Taking VItal Signs DR NAPOLEON RAWLS MD [facility] 10-02-2023 19:44-0500 Respiratory rate 20 /min DR NAPOLEON RAWLS MD [facility] 10-02-2023 19:44-0500 Systolic Blood Pressure Non-Invasive 170 mm[Hg] DR NAPOLEON RAWLS MD [facility] Encounters Encounter Date Encounter Type Care Provider Facility Start: 03-27-2025 Non-patient / Non-visit Dr. Katarina Fabian MD -[facility] Work Phone: Start: 03-26-2025 Non-patient / Non-visit Dr. Katarina Fabian MD -[facility] Work Phone: Start: 03-25-2025 Non-patient / Non-visit Dr. Zandra bucio MD -[facility] Start: 03-25-2025 Non-patient / Non-visit Dr. Katarina Fabian MD [facility] Work Phone: Start: 03-24-2025 Non-patient / Non-visit Dr. Katarina Fabian MD -[facility] Work Phone: Start: 03-24-2025 ambulatory [facility] Start: 03-24-2025 Non-patient / Non-visit Dr. Smiley Loving MD -[facility] Start: 03-23-2025 ambulatory Merry [facility] Facility :[facility] Start: 03-23-2025 End: 03-27-2025 Evaluation and management of inpatient Dr. Merry Pham MD -[facility] Work Phone: Start: 03-10-2025 End: 03-10-2025 ambulatory KATHERINE S SUNDAY PARKING OFFICER-RIP AND GROOVE MACHINE OPERATOR Facility:[facility] Start: 03-10-2025 End: 03-10-2025 Patient encounter procedure KATHERINE Bowie SUNDAY PARKING OFFICER[employer]RIP AND GROOVE MACHINE OPERATOR [facility] Start: 03-09-2025 End: 03-09-2025 ambulatory KATHERINE Jamir SUNDAY PARKING OFFIC[employer]RIP AND GROOVE MACHINE OPERATOR Facility:[facility] Start: 03-09-2025 End: 03-09-2025 Patient encounter procedure KATHERINE Bowie SUNDAY PARKING OFFICER[employer]RIP AND GROOVE MACHINE OPERATOR [facility] Start: 02-22-2025 End: 02-24-2025 Evaluation and management of inpatient OSMEL BURRELL PARKING OFFICER[employer]IP AND [employer]OOVE MACHINE OPERATOR [facility] Start: 11-09-2024 End: 11-09-2024 ambulatory Katherine Sunday Facility:[facility] Start: 10-21-2024 End: 10-21-2024 ambulatory Katherine Sunday Facility:[facility] Start: 10-08-2024 End: 10-08-2024 ambulatory KATHERINE Jamir SUNDAY PARKING OFFICER-RIP AND GROOVE MACHINE OPERATOR Facility:[facility] Start: 10-08-2024 End: 10-08-2024 Patient encounter procedure AMBER GREENWOOD MD [facility] Start: 09-23-2024 End: 09-23-2024 ambulatory Katherine Sunday Facility:[facility] Start: 08-18-2024 End: 08-18-2024 Emergency department patient visit SIERRA BLACK DO [facility] Start: 08-05-2024 End: 08-09-2024 ambulatory KATHERINE Jamir SUNDAY PARKING OFFIC[employer] AND GROOVE MACHINE OPERATOR Facility:[facility] Start: 08-05-2024 End: 08-09-2024 Outreach Lab KATHERINE BRAND PARKING OFFICER[employer]IP AND [employer]OVE MACHINE OPERATOR [facility] Start: 08-03-2024 End: 08-03-2024 ambulatory KATHERINE BRAND PARKING OFFIC[employer]IP AND GROOVE MACHINE OPERATOR Facility:[facility] Start: 08-03-2024 End: 08-03-2024 Patient encounter procedure KATHEIRNE BRAND PARKING OFFICER[employer] AND [employer]OVE MACHINE OPERATOR [facility] Start: 07-02-2024 ambulatory KATHERINE TOTH ER PARKING OFFICER[employer]RIP AND [employer]OOVE MACHINE OPERATOR Facility:[facility] Start: 06-11-2024 End: 06-11-2024 ambulatory KATHERINE BRAND PARKING OFFICER[employer]RIP AND GROOVE MACHINE OPERATOR Facility:[facility] Start: 06-11-2024 End: 06-11-2024 Patient encounter procedure KATHERINE BRAND PARKING OFFIC[employer] AND [employer]OVE MACHINE OPERATOR [facility] Start: 06-03-2024 End: 06-03-2024 ambulatory KATHERINE BRAND PARKING OFF[employer] AND GROOVE MACHINE OPERATOR Facility:[facility] Start: 06-03-2024 End: 06-03-2024 Patient encounter procedure KATHERINE BRAND PARKING OFFICER[employer] AND [employer]OVE MACHINE OPERATOR [facility] Start: 05-19-2024 End: 05-23-2024 ambulatory KATHERINE BRAND PARKING OFFICER[employer]IP AND GROOVE MACHINE OPERATOR Facility:[facility] Start: 05-19-2024 End: 05-23-2024 Outreach Lab DANY TORRES PARKING OFFICER[employer] AND [employer]OVE MACHINE OPERATOR [facility] Start: 05-19-2024 End: 05-19-2024 AMB External Visit DANY SENAHOMY PARKING OFFICER[employer]RIP AND [employer]OVE MACHINE OPERATOR [facility] [place] Start: 04-26-2024 End: 05-01-2024 Evaluation and management of inpatient FORREST CAO PARKING OFFIC[employer] AND [employer]OVE MACHINE OPERATOR [facility] Start: 04-22-2024 End: 04-26-2024 Evaluation and management of inpatient OSMEL BURRELL PARKING OFF[employer] AND [employer]OVE MACHINE OPERATOR [facility] Start: 02-19-2024 End: 02-19-2024 ambulatory KATHERINE BRAND Facility:[facility] Start: 12-17-2023 End: 12-17-2023 ambulatory [facility] Work Phone: Start: 12-17-2023 End: 12-17-2023 Patient encounter procedure [facility] Work Phone: Start: 11-18-2023 End: 11-18-2023 ambulatory KATHERINE BRAND Facility:[facility] Start: 11-18-2023 End: 11-18-2023 Patient encounter procedure KATHERINE BRAND PARKING OFF[employer] AND [employer]OVE MACHINE OPERATOR [facility] Start: 10-20-2023 End: 10-20-2023 ambulatory KATHERINE BRAND Facility:[facility] Start: 10-20-2023 End: 10-20-2023 Patient encounter procedure KATHERINE Bowie SUNDAY [employer]ING OFF[employer]OVE MACHINE OPERATOR [facility] Start: 10-02-2023 End: 10-02-2023 Emergency department patient visit DR NAPOLEON RAWLS MD [facility] Start: 09-15-2023 End: 04-01-2024 ambulatory KATHERINE BRAND Facility:[facility] Start: 08-11-2023 End: 08-11-2023 Emergency department patient visit SIERRA BLACK DO Facility:[facility] Start: 04-17-2023 End: 04-17-2023 Patient encounter procedure KATHERINE Bowie SUNDAY P[employer]ING OFF[employer] AND [employer]OVE MACHINE OPERATOR [facility] Start: 03-05-2023 End: 03-05-2023 Patient encounter procedure KATHERINE Bowie SUNDAY [employer]ING OFF[employer] AND [employer]OVE MACHINE OPERATOR [facility] Start: 12-03-2022 End: 12-03-2022 Patient encounter procedure KATHERINE Bowie SUNDAY PARKING OFF[employer] AND [employer]OVE MACHINE OPERATOR [facility] Start: 12-03-2022 End: 12-03-2022 Well adult monitoring check done KATHERINE Bowie SUNDAY PARKING OFF[employer] AND [employer]OVE MACHINE OPERATOR [facility] Start: 01-10-2022 End: 01-10-2022 Patient encounter procedure ARACELI GUERRERO MD [facility] Procedures Date Procedure Procedure Detail Performing Clinician Start: 03-27-2025 Estimated creatinine clearance Katherine Brand HOUSEKEEPING ROOM INSPECTOR-C Work Phone: Start: 03-26-2025 Plain chest X-ray Ofelia Brand HOUSEKEEPING ROOM INSPECTOR-C Work Phone: Start: 03-24-2025 MRI of lumbar spine Allison Brand HOUSEKEEPING ROOM INSPECTOR-C Work Phone: Start: 03-24-2025 MRI of thoracic spine Rama Brand HOUSEKEEPING ROOM INSPECTOR-C Work Phone: Start: 03-24-2025 Total iron binding c apacity measurement Katherine Brand HOUSEKEEPING ROOM INSPECTOR-C Work Phone: Start: 03-23-2025 Plain chest X-ray Ofelia Brand HOUSEKEEPING ROOM INSPECTOR-C Work Phone: Start: 03-23-2025 Computed tomography of thoracic spine without contrast Katherine Brand HOUSEKEEPING ROOM INSPECTOR-C Work Phone: Start: 03-23-2025 CT of head without contrast Katherine Brand HOUSEKEEPING ROOM INSPECTOR-C Work Phone: Start: 03-23-2025 CT of lumbar spine Catina Brand HOUSEKEEPING ROOM INSPECTOR-C Work Phone: Start: 03-23-2025 Estimated creatinine clearance Katherine Brand HOUSEKEEPING ROOM INSPECTOR-C Work Phone: Start: 09-25-2018 Cholecystectomy ARACELI GUERRERO MD Appendectomy ARACELI GUERRERO MD Colonoscopy ARACELI GUERRERO MD CT guided kyphoplast y of fracture of thoracic spine OSMEL INDRA PARKING OFFICER[employer] AND [employer]OVE MACHINE OPERATOR Comment on above: Pt reports T13 and T 11 Tonsillectomy ARACELI GUERRERO MD Wrist joint structur e (body structure) ARACELI GUERRERO MD Comment on above: Left Plan of Treatment Date Care Activity Detail Author Start: 03-27-2025 Patient discharge [facility] Start: 03-23-2025 Following clinical pathway protocol [facility] Start: 03-23-2025 Application of elastic bandage [facility] Start: 03-23-2025 Assessment of risk of venous thromboembolism [facility] Start: 03-23-2025 Consultation [facility] Start: 03-23-2025 Elevation of head of bed [facility] Start: 03-23-2025 Fall prevention [facility] Start: 03-23-2025 Inhalation therapy procedure [facility] Start: 03-23-2025 Insertion of catheter into peripheral vein [facility] Start: 03-23-2025 Introduction of urinary catheter [facility] Start: 03-23-2025 Measuring intake and output [facility] Start: 03-23-2025 Oxygen therapy [facility] Start: 03-23-2025 Patient referral to dietitian [facility] Start: 03-23-2025 Providing care according to standard [facility] Start: 03-23-2025 Provision of activity privileges [facility] Start: 03-23-2025 Referral to occupational therapist [facility] Start: 03-23-2025 Referral to service [facility] Start: 03-23-2025 [facility] Start: 03-23-2025 Admission procedure [facility] Start: 03-23-2025 Verification routine [facility] Start: 03-23-2025 Hospital admission, emergency, from emergency room, medical nature [facility] Start: 03-23-2025 [facility] Start: 03-23-2025 Patient referral to dietitian [facility] Patient Education ED Peripheral Edema, Bilateral [facility] Work Phone: Troponin T.cardiac [Mass/volume] in Serum or Plasma by High sensitivity method [facility] Immunizations Immunization Date Immunization Notes Care Provider Ines transwetha 12-07-2024 pneumococcal 21-hang nt [id number] OSMEL BURRELL PARKING OFFICER[employer] AND [employer]OOVE MACHINE OPERATOR [facility] 06-15-2024 Covid (Spikevax) Katherine presley HOUSEKEEPING ROOM INSPECTOR-C Work Phone: [facility] 06-15-2024 influenza virus vacc ine, unspecified formulation KATHERINE BRAND PARKING OFF[employer] AND [employer]OOVE MACHINE OPERATOR [facility] 06-15-2024 influenza, high dose seasonal, preservative-free Katherine Brand HOUSEKEEPING ROOM INSPECTOR-C Work Phone: [facility] 06-15-2024 SARS-CoV-2 (COVID-19 ) [id number] KATHERINE BRAND PARKING OFF[employer] AND [employer]OOVE MACHINE OPERATOR [facility] 09-08-2023 influenza virus vacc ine, unspecified formulation DR NAPOLEON RAWLS MD [facility] 09-08-2023 Influenza, injectabl e, Madin Vaishali Canine Kidney, preservative free, quadrivalent Katherine Brand HOUSEKEEPING ROOM INSPECTOR-C Work Phone: [facility] 09-08-2023 RSV Adult Recombinan t (Arexvy) Katherine Brand HOUSEKEEPING ROOM INSPECTOR-C Work Phone: [facility] 01-08-2024 RSV vaccine preF3, recombinant DR NAPOLEON RAWLS MD [facility] 04-24-2023 tetanus toxoid, redu hector diphtheria toxoid, and acellular pertussis vaccine, adsorbed; Translations: [Boostrix (Tdap)] DR NAPOLEON RAWLS MD [facility] 07-24-2022 COVID-19, mRNA, LNP- S, bivalent, PF, 50 mcg/0.5 mL dose; Translations: [Moderna COVID-19 Bivalent Booster Vaccine PF] KATHERINE BRAND PARKING OFFICER[employer]RIP AND GROOVE MACHINE OPERATOR [facility] 07-24-2022 SARS-CoV-2 (CV19)[id number] bivalent vac; Translations: [Moderna COVID-19 Bivalent Booster Vaccine PF] DR NAPOLEON RAWLS MD [facility] 06-04-2022 influenza, high dose seasonal, preservative-free KATHERINE BRAND PARKING OFFICER[employer]IP AND [employer]OOVE MACHINE OPERATOR [facility] 06-04-2022 influenza, injectabl e, quadrivalent, preservative free Katherine Brand HOUSEKEEPING ROOM INSPECTOR-C Work Phone: [facility] 01-10-2022 COVID-19, mRNA, LNP- S, PF, 100 mcg or 50 mcg dose; Translations: [Moderna COVID-19 Vaccine] ARACELI GUERRERO MD [facility] 08-17-2021 influenza, high dose seasonal, preservative-free; Translations: [Fluad Quadrivalent PF ] ARACELI GUERRERO MD [facility] 08-17-2021 influenza, injectabl e, quadrivalent, preservative free Katherine Brand HOUSEKEEPING ROOM INSPECTOR-C Work Phone: [facility] 07-19-2021 SARS-CoV-2 (COVID-19 ) [id number] vaccine ARACELI GUERRERO MD [facility] Comment on above: Result Comment: 2020: [id number] 11-29-2020 SARS-CoV-2 (COVID-19 ) mRNA-1273 vaccine ARACELI GUERRERO MD [facility] 11-01-2020 SARS-CoV-2 (COVID-19 ) mRNA-1273 vaccine ARACELI GUERRERO MD [facility] 07-20-2020 Influenza High-Dose Quadrivalent Katherine Brand HOUSEKEEPING ROOM INSPECTOR-C Work Phone: [facility] 07-20-2020 influenza virus vacc ine, unspecified formulation ARACELI GUERRERO MD [facility] Comment on above: Result Comment: [facility] 09-08-2019 influenza, injectabl e, quadrivalent, preservative free; Translations: [Fluarix PF Quadrivalent ] ARACELI GUERRERO MD [facility] 10-28-2018 influenza virus vacc ine, unspecified formulation ARACELI GUERRERO MD [facility] 10-28-2018 influenza, injectabl e, quadrivalent, preservative free Katherine Brand HOUSEKEEPING ROOM INSPECTOR-C Work Phone: [facility] 07-17-2017 influenza virus vacc ine, unspecified formulation ARACELI GUERRERO MD [facility] 07-17-2017 influenza, injectabl e, quadrivalent, preservative free 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 Phone: [facility] 08-18-2015 influenza virus vacc ine, unspecified formulation ARACELI GUERRERO MD [facility] 08-18-2015 influenza, seasonal, injectable, preservative free Katherine [facility] HOUSEKEEPING ROOM INSPECTOR-C Work Phone: [facility] 11-28-2014 pneumococcal conjuga te vaccine, 13 valent ARACELI GUERRERO MD [facility] 07-14-2014 influenza virus vacc ine, unspecified formulation ARACELI GUERRERO MD [facility] 07-14-2014 influenza, seasonal, injectable, preservative free 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 Phone: [facility] 10-28-2012 pneumococcal polysaccharide vaccine, 23 valent ARACELI GUERRERO MD [facility] Payers Date Payer Category Payer Self-pay [id number] 2024 Medicare [id number] 2023 Private Health Insurance [id number] 2023 Unknown [id number] 2016 Unknown [id number] 2011 Medicare [id number] 1945 Unknown [id number] 2.16.8 40.1.885235.3.579.2.627 1946 Unknown [id number] 2.16.8 40.1.997220.3.579.2.627 1946 Unknown [id number] 2.16.8 40.1.156160.3.579.2.627 1946 Unknown [id number] 2.16.8 40.1.168225.3.579.2.627 1946 Unknown [id number] 2.16.8 40.1.614170.3.579.2.627 1946 Unknown [id number] 2.16.8 40.1.560798.3.579.2.627 1946 Unknown [id number] 2.16.8 40.1.307005.3.579.2.627 1946 Unknown [id number] 2.16.8 40.1.626405.3.579.2.627 1946 Unknown [id number] 2.16. 840.1.610357.3.579.2.627 1946 Unknown [id number] 2.16. 840.1.648200.3.579.2.627 1946 Unknown [id number] 2.16. 840.1.725281.3.579.2.627 1946 Unknown [id number] 2.16.8 40.1.514840.3.579.2.627 1946 Unknown [id number] 2.16.8 40.1.495772.3.579.2.627 1946 Unknown [id number] 2.16.8 40.1.431089.3.579.2.627 1946 Unknown [id number] 2.16.8 40.1.824519.3.579.2.627 1946 Unknown [id number] 2.16.8 40.1.918188.3.579.2.627 1946 Unknown [id number] 2.16.8 40.1.398953.3.579.2.627 1946 Unknown [id number] 2.16.8 40.1.033639.3.579.2.627 1946 Unknown [id number] 2.16.8 40.1.657519.3.579.2.627 1946 Unknown [id number] 2.16.8 40.1.625133.3.579.2.627 1946 Unknown [id number] 2.16.8 40.1.262769.3.579.2.627 Unknown [id number] 2.16.8 40.1.725121.3.579.2.462 Unknown [id number] 2.16.8 40.1.657044.3.579.2.462 Unknown [id number] 2.16.8 40.1.632510.3.579.2.462 Unknown [id number] 2.16.8 40.1.303072.3.579.2.462 Unknown [id number] 2.16.8 40.1.300671.3.579.2.462 Unknown [id number] 2.16.8 40.1.706616.3.579.2.462 Unknown [id number] 2.16.8 40.1.207442.3.579.2.462 Unknown [id number] 2.16.8 40.1.821478.3.579.2.462 Unknown [id number] 2.16.8 40.1.051853.3.579.2.462 Unknown [id number] 2.16.8 40.1.534052.3.579.2.462 Social History Date Type Detail Facility Start: 09-16-2018 End: 03-23-2025 Tobacco smoking status Ex-smoker (finding) [facility] Start: 1945 Sex Assigned At Male [facility] Sexual Orientation [facility] Start: 10-27-2019 Sex Male (finding) [facility] Goals Date Patient Goal Desired Activity /State Functional Status Date Assessment Result Facility 03-27-2025 Functional status Ambulates [facility] Work Phone: 08-18-2024 Functional Status Independent [facility] 08-18-2024 Functional Status Identified as high risk, Room located near nursing station [facility] 05-01-2024 Functional Status Nurse Jayden jackson q2hrs Performed Other: 7am-250pm [facility] 05-01-2024 Functional [facility]01[facility] Functional Status bilateral knee high removed/off [facility] 05-01-2024 Functional Status Non-Slip footw ear, toileting offered, supervised while toileting, Room check performed [facility] 05-01-2024 Functional Status [facility] 05-01-2024 Functional Status [facility] 04-30-2024 Functional Status [facility] 04-30-2024 Functional Status [facility] 04-30-2024 Functional Status [facility] 04-30-2024 Functional Status Mod I [facility] 04-30-2024 Functional Status Berkley [facility] 04-29-2024 Functional Status Berkley [facility] 04-29-2024 Functional Status [facility] 04-29-2024 Functional Status [facility]kley Ho [facility]ne [facility] 04-28-2024 Functional Status Berkley Ho brianne [facility] 04-28-2024 Functional Status Berkley Ho brianne [facility] 04-27-2024 Functional Status [facility]ley Ho brianne [facility] 04-27-2024 Functional Status OT Toilet Transfers Sup [facility] 04-26-2024 Functional Status Single level home [facility] 04-26-2024 Functional Status Mod A [facility] 04-26-2024 Functional Status Min A [facility] 04-26-2024 Functional Status Identified as high risk, Fall ID band on, Room located near nursing station, Bed alert on, Door open, Non-Slip footwear [facility] 04-26-2024 Functional Status [facility]ley Ho brianne [facility] 04-25-2024 Functional Status 7pm-7am [facility] 04-25-2024 Functional Status [facility] 04-25-2024 Functional [facility] 04-25-2024 Functional Status [facility]kley Ho brianne [facility] 04-25-2024 Functional Status [facility] 04-25-2024 Functional [facility] 04-25-2024 Functional [facility] 04-24-2024 Functional Status Berkley Ho brianne [facility] 04-24-2024 Functional Status Done [facility] 04-24-2024 Functional [facility] 04-24-2024 Functional [facility] 04-23-2024 Functional Status Front wheeled [facility] 04-23-2024 Functional Status Single level home [facility] 10-02-2023 Functional Status Awake, Resting [facility] Mental Status Date Assessment Result Facility 03-27-2025 Cognitive function Voice/Name [facility] Work Phone: 03-23-2025 Cognitive function Level Of Cons ciousness Awake;Alert;Appropriate;Follow s Commands [facility] Work Phone: 08-18-2024 Mental Status Orientation Oriented x 4 [facility] 08-18-2024 Mental Status [facility] 05-01-2024 Mental Status Oriented x 4 [facility] 04-30-2024 Mental Status [facility] 04-30-2024 Mental Status [facility] 04-30-2024 Mental Status [facility] 04-26-2024 Mental Status Oriented x 4 [facility] 04-26-2024 [facility] Status [facility] 10-02-2023 Mental Status Oriented x 4 [facility] Clinical Notes 10-02-2023 to 03-27-2025 Note Date & Type Note Facility 03-27-2025 Discharge summary [facility] 03-27-2025 Discharge summary [facility] 03-26-2025 Radiology Diagnostic study note [facility] Imaging Services [address] [place] [address] Chest 1 View (Portable) MR#: [id number] Acct: [id number] Name: NANCY SY Rep #: [id number] : 1945 M 80 From: Margarita Baptiste MD PCP: 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 COMPARISON: No relevant prior studies available. FINDINGS: LUNGS AND PLEURAL SPACES: See below. HEART: Cardiomegaly with mild congestion. MEDIASTINUM: Unremarkable. Normal mediastinal contour. BONES/JOINTS: Unremarkable. No acute fracture. RAD/Chest 1 View (Portable) IMPRESSION: Cardiomegaly with mild congestion. Reading Location: [facility] CC: HOUSEKEEPING ROOM INSPECTOR-C Katherine Brand; Dr. Katarina Fabian MD ~ Lard Renderer: Signed [facility] 03-26-2025 Progress note Note Date/Time March 26, 2025 11:10am [facility] Medical Records Department [address] [place] [address] Progress Note 03/26/25 1057 MR#: [id number] Acct: [id number] Name: NANCY SY Rep #:[id number] : 1945 80 From: Katarina Fabian MD PCP: LOIS Resendiz Status:ADM I N Location: [place] [address] Subjective Subjective Patient seen and examined. He had no active complaints. I saw him with his nurse by his bedside. The swelling in his lower extremities has improved markedly. Patient however has bilateral crackles which is likely due to atelectasis. He is not doing very well with the incentive spirometry and encouraged to use it. His is also on the phone and was reviewing him and she was updated. He is to go to the TCU upon discharge. Objective Data Objective Data Vital Signs: Vital Signs Temp Pulse Resp BP Pulse Ox O2 Del Method O2 Flow Rate 98.2 F 101 H 18 159/82 H 96 Nasal Cannula 2 03/26/25 08:38 03/26/25 08:38 03/26/25 09:07 03/26/25 08:38 03/26/25 08:38 03/26/25 08:38 03/26/25 08:38 Oxygen Flow Rate (L/min) 2 Oxygen Delivery Method Nasal Cannula Weight: 164 lb Body Mass Index (BMI) 25.7 Intake & Output: Intake and Output for Last 24 Hours 03/24/25 03/25/25 03/26/25 23:59 23:59 23:59 Intake Total 720 / 720 400 / 400 Output Total 1850 / 1850 1300 / 1300 300 / 300 Balance -1130 / -1130 -900 / -900 -300 / -300 Lab / Micro Data 03/26/25 05:05 03/26/25 05:05 Labs: Laboratory Results - last 24 hr 03/26/25 05:05: WBC 7.2, RBC 3.61 L, Hgb 11.6 L, Hct 34.4 L, MCV 95.3 H, MCH 32.1 H, MCHC 33.7, RDW Std Deviation 46.3 H, RDW Coeff of Stefanie 13.2, Plt Count 210, MPV 9.1, Immature Gran % (Auto) 0.400, Neut % (Auto) 64.6, Lymph % (Auto) 14.1 L, Elliott % (Auto) 13.0 H, Eos % (Auto) 7.5 H, Baso % (Auto) 0.4, Absolute Neuts (auto) 4.6, Absolute Lymphs (auto) 1.01, Nucleated RBC % 0.3, Sodium 144, Potassium 3.3, Chloride 103, Carbon Dioxide 32.6 H, Anion Gap 8, BUN 17, Creatinine 0.79, Estim Creat Clear Calc 70.00, Est GFR (MDRD) Non-Af 91, BUN/Creatinine Ratio 21.8 H, Glucose 96, Calcium 8.5 Physical Exam Const alert, oriented x3 and no apparent distress Constitutional Narrative: frail General Appearance: cooperative HEENT normocephalic and head/scalp atraumatic Eyes PERRL Neck no lymphadenopathy and supple Lymph Lymphatic: no lymphadenopathy noted and no lymphedema noted Resp Resp Narrative: mildly diminished breath sounds bibasally, Cardio regular rate, regular rhythm, S1 normal heart sound, S2 normal heart sound and no murmurs GI normal to inspection, nondistended, normoactive bowel sounds and soft to palpation Extremity Extremity Narrative: bilateral LE swelling has resolved. General Extremity: no tenderness to palpation of joints or extremities Skin Skin Narrative: as under extremities. Neuro CN's II-XII intact bilaterally Motor Exam: general weakness Psych thought process normal and cooperative Appearance: appropriate Assessment & Plan Assessment/Plan (1) Acute on chronic back pain: PLAN: Plan #Debility and weakness due to mechanical falls with resultant compression fractures * Patient complaining of acute on chronic back pain. Imaging done showed severe compression fracture of L1 with moderate spinal canal stenosis in addition to moderate to severe compression deformity of T9 vertebral body. * Lumbar spine MRI showed fractures of T11 and L1 vertebral bodies which is chronic with moderate bone marrow edema and foraminal narrowing at L1 and L2 and L3-L4, L4-L5, L5-S1. * Thoracic spine MRI showed straightening of the upper thoracic spine with acute kyphosis of the lower thoracic spine related to multiple fractures and severe exit foraminal narrowing at T9-10. * PT OT on board. Fall precautions. On lidocaine patch as needed as well as IV Toradol and gabapentin. * PT/OT on board. Fall precautions. * orthospine consulted. #Bilateral lower extremity swelling * Etiology is unclear. 2D echo done today showed EF of 55% with no diastolic dysfunction. His got on the phone and give more of his history. She said he had been having this lower extremity edema for some weeks now and was seen at [facility] where he was told that he may need Lasix. She states that he had some cardiac testing done though she does not know the exact ones he had done and these were all negative. He was on Lasix for some time but it did not really help. * Patient currently on IV Lasix. He is diuresing very well. * bilateral LE sweling has resolved. * will switch to PO lasix #Hypoxia: * Patient still on 2 L of oxygen. His lungs have bilateral crackles. He is being diuresed so is not likely fluid overload. * likely has atelectasis. Will repeat CXR today. * encourage incentive spirometry. * Breathing treatments bronchodilators. Titrate oxygen to maintain saturation above 90%. * #Hypokalemia: K is 3.3. Improved from 3.1 yesterday. Hypertension: On Coreg and losartan as well as amlodipine. 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 DVT prophylaxis: lovenox COde status: full code Charges/Coding Visit Charges Inpatient E&M: 44346 Subs Hosp L2 03/26/25 1110 <Electronically signed by Katarina Fabian MD> Katarina Fabian MD Cosigner Signature (if applicable): CC: ~ Signed [facility] Work Phone: 1(273) 204-802607-26-2025 Progress note [facility] Medical Records Department [address] [place] [address] Progress Note 03/26/25 1057 MR#: [id number] Acct: [id number] Name: NANCY SY Rep #:[id number] : 1945 80 From: Katarina Fabian MD PCP: Katherine Brand, HOUSEKEEPING ROOM INSPECTOR-C Status:ADM I N Location: [place] [address] Subjective Subjective Patient seen and examined. He had no active complaints. I saw him with his nurse by his bedside. The swelling in his lower extremities has improved markedly. Patient however has bilateral crackles which is likely due to atelectasis. He is not doing very well with the incentive spirometry and encouraged to use it. His is also on the phone and was reviewing him and she was updated. He is to go to the TCU upon discharge. Objective Data Objective Data Vital Signs: Vital Signs Temp Pulse Resp BP Pulse Ox O2 Del Method O2 Flow Rate 98.2 F 101 H 18 159/82 H 96 Nasal Cannula 2 03/26/25 08:38 03/26/25 08:38 03/26/25 09:07 03/26/25 08:38 03/26/25 08:38 03/26/25 08:38 03/26/25 08:38 Oxygen Flow Rate (L/min) 2 Oxygen Delivery Method Nasal Cannula Weight: 164 lb Body Mass Index (BMI) 25.7 Intake & Output: Intake and Output for Last 24 Hours 03/24/25 03/25/25 03/26/25 23:59 23:59 23:59 Intake Total 720 / 720 400 / 400 Output Total 1850 / 1850 1300 / 1300 300 / 300 Balance -1130 / -1130 -900 / -900 -300 / -300 Lab / Micro Data 03/26/25 05:05 03/26/25 05:05 Labs: Laboratory Results - last 24 hr 03/26/25 05:05: WBC 7.2, RBC 3.61 L, Hgb 11.6 L, Hct 34.4 L, MCV 95.3 H, MCH 32.1 H, MCHC 33.7, RDWStd Deviation 46.3 H, RDW Coeff of Stefanie 13.2, Plt Count 210, MPV 9.1, Immature Gran % (Auto) 0.400, Neut % (Auto) 64.6, Lymph % (Auto) 14.1 L, Elliott % (Auto) 13.0 H, Eos % (Auto) 7.5 H, Baso % (Auto) 0.4, Absolute Neuts (auto) 4.6, Absolute Lymphs (auto) 1.01, Nucleated RBC % 0.3, Sodium 144, Potassium 3.3, Chloride 103, Carbon Dioxide 32.6 H, Anion Gap 8, BUN 17, Creatinine 0.79, Estim Creat ClearCalc 70.00, Est GFR (MDRD) Non-Af 91, BUN/Creatinine Ratio 21.8 H, Glucose 96, Calcium 8.5 Physical Exam Const alert, oriented x3 and no apparent distress Constitutional Narrative: frail General Appearance: cooperative HEENT normocephalic and head/scalp atraumatic Eyes PERRL Neck no lymphadenopathy and supple Lymph Lymphatic: no lymphadenopathy noted and no lymphedema noted Resp Resp Narrative: mildly diminished breath sounds bibasally, Cardio regular rate, regular rhythm, S1 normal heart sound, S2 normal heart sound and no murmurs GI normal to inspection, nondistended, normoactive bowel sounds and soft to palpation Extremity Extremity Narrative: bilateral LE swelling has resolved. General Extremity: no tenderness to palpation of joints or extremities Skin Skin Narrative: as under extremities. Neuro CN's II-XII intact bilaterally Motor Exam: general weakness Psych thought process normal and cooperative Appearance: appropriate Assessment & Plan Assessment/Plan (1) Acute on chronic back pain: PLAN: Plan #Debility and weakness due to mechanical falls with resultant compression fractures * Patient complaining of acute on chronic back pain. Imaging done showed severe compression fracture of L1 with moderate spinal canal stenosis in addition to moderate to severe compression deformity of T9 vertebral body. * Lumbar spine MRI showed fractures of T11 and L1 vertebral bodies which is chronic with moderate bone marrow edema and foraminal narrowing at L1 and L2 and L3-L4, L4-L5, L5-S1. * Thoracic spine MRI showed straightening of the upper thoracic spine with acute kyphosis of the lower thoracic spine related to multiple fractures and severe exit foraminal narrowing at T9-10. * PT OT on board. Fall precautions. On lidocaine patch as needed as well as IV Toradol and gabapentin. * PT/OT on board. Fall precautions. * orthospine consulted. #Bilateral lower extremity swelling * Etiology is unclear. 2D echo done today showed EF of 55% with no diastolic dysfunction. His got on the phone and give more of his history. She said he had been having this lower extremity edema for some weeks now and was seen at [facility] where he was told that he may need Lasix. She states that he had some cardiac testing done though she does not know the exact ones he haddone and these were all negative. He was on Lasix for some time but it did not really help. * Patient currently on IV Lasix. He is diuresing very well. * bilateral LE sweling has resolved. * will switch to PO lasix #Hypoxia: * Patient still on 2 L of oxygen. His lungs have bilateral crackles. He is being diuresed so is notlikely fluid overload. * likely has atelectasis. Will repeat CXR today. * encourage incentive spirometry. * Breathing treatments bronchodilators. Titrate oxygen to maintain saturation above 90%. * #Hypokalemia: K is 3.3. Improved from 3.1 yesterday. Hypertension: On Coreg and losartan as well as amlodipine. 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 DVT prophylaxis: lovenox COde status: full code Charges/Coding Visit Charges Inpatient E&M: 22758 Subs Hosp L2 03/26/25 1110 Katarina Fabian MD Cosigner Signature (if applicable): CC: ~ Signed [facility]07-25-2025 Consult note Author Zandra Freire [facility] Note Date/Time March 25, 2025 1:18 pm [facility] Medical Records Department [address] [place] [address] Consultation - Orthopedics 03/25/25 1307 MR#: [id number] Acct: [id number] Name: NANCY SY Rep #:[id number] : 1945 80 From: Zandra Freire MD PCP: LOIS Resendiz Status:ADM I N Location: [place] [address] HPI Consult Data Date of Consult: 03/25/25 HPI Narrative HPI Narrative: NANCY SY, is a 80 M who presents with back pain. Patient was admitted on Friday night because of hypoxia and pedal edema. Patient is a poor historian. Most of the history was taken through patient's on speaker phone. Patient apparently had multiple falls over the last 2 to3 years. He initially underwent kyphoplasty by Dr. Pate or Dr. Torres, patient is unsure. He had good improvement of his pain from this. He has had multiple falls since this kyphoplasty procedure which was based on imaging likely at T11 level. He however had more recent falls about a month ago which caused him to have worsening back pain. He denies any mid back or upper back pain at this time but says that she has significant pain throughout the back most severe in the beltline region in the lower lumbar region. He is on nasal oxygen. He has been evaluated for cardiac and pulmonary reasons for hypoxia andpedal edema. He says that the pain has been constant since the fall about a month ago. He says that he has worked with physical therapy here in the hospital and has been able to walk with the help of a walker. Past medical history: Chronic macrocytic anemia, CKD stage II per GFR trending, OA, Allergic rhinitis, Former tobacco use [facility] Medical History CKD (chronic kidney disease), stage II Former tobacco use BPH (benign prostatic hyperplasia) HLD (hyperlipidemia) Chronic anemia Pancreatitis Osteoporosis Osteopenia Kidney stones Arthritis Allergies Hemorrhoids Hypertension Home Medications ?Medication ?Instructions ?Recorded ?Last Taken ?Type carvedilol 3.125 mg tablet 3.125 mg PO BID 07/09/23 History amlodipine 10 mg tablet 10 mg PO QDAY 07/26/2403/22 History buspirone 15 mg tablet 15 mg PO BID 07/26/24 History calcium carbonate 1,000 mg PO QDAY 07/26/24 History cyanocobalamin (vitamin B-12) 1,000 mcg PO QDAY 03/22/25 History 1,000 mcg capsule losartan 25 mg tablet 100 mg PO DAILY 07/26/24 History melatonin 5 mg capsule 5 mg PO QHS PRN Sleep 03/22/25 History paroxetine HCl 40 mg tablet 40 mg PO QDAY 07/26/24 History tamsulosin 0.4 mg capsule (Flomax) 0.4 mg PO QDAY 07/0303/22/25 History cholecalciferol (vitamin D3) 1,250 1,250 mcg PO QWEEK 09/23/24 Unknown History mcg (50,000 unit) capsule acetaminophen 325 mg tablet 650 mg PO Q6H PRN pain 03/23/25 History (Tylenol) hydroxyzine HCl 25 mg tablet 25 mg PO 4X/DAY Anxiety 0 03/24/25 Unknown History Allergy/AdvReac Type Severity Reaction Status Date / Time No Known Allergies Allergy Verified 03/23/25 16:56 Family History Father Alcoholism Brother Depression Suicide attempt Grandmother Parkinson disease Sister Osteoporosis Mother Non-alcoholic cirrhosis Surgical History S/P tonsillectomy S/P appendectomy Hx of cholecystectomy Social History household members: spouse Smoking Status: Former smoker how long ago did patient quit smoking: Quit pipe smoking 15 yrs prior, smoked since 13 ~20 refill/day. alcohol intake: never substance use type: does not use Vital Signs Vital Signs Vital Signs: 03/24/25 17:45 03/24/25 21:47 03/24/25 22:00 Temperature 97.7 F L 97.7 F L Temperature Source Oral Temporal Pulse Rate 64 91 Respiratory Rate 16 18 Respiratory Effort Normal Non-Labored Respiratory Depth Normal Respiratory Pattern Normal Blood Pressure 135/89 H 117/64 Blood Pressure Mean 104 81 Blood Pressure Source Monitor Monitor Blood Pressure Position Semi-Fowlers Semi-Fowlers Blood Pressure Location Left Arm Right Arm Pulse Ox 93 92 Oxygen Delivery Method Room Air Room Air Room Air Oxygen Flow Rate (L/min) 03/25/25 03:52 03/25/25 04:27 03/25/25 07:44 Temperature 97.9 F Temperature Source Temporal Pulse Rate 90 Respiratory Rate 18 Respiratory Effort Normal Non-Labored Respiratory Depth Normal Respiratory Pattern Normal Blood Pressure 130/71 H Blood Pressure Mean 90 Blood Pressure Source Monitor Blood Pressure Position Semi-Fowlers Blood Pressure Location Right Arm Pulse Ox 95 Oxygen Delivery Method Nasal Cannula Nasal Cannula Oxygen Flow Rate (L/min) 2 2 03/25/25 09:41 03/25/25 10:00 03/25/25 11:24 Temperature 97.9 F Temperature Source Temporal Pulse Rate 93 Respiratory Rate 18 Respiratory Effort Normal Non-Labored Respiratory Depth Normal Respiratory Pattern Normal Blood Pressure 126/67 H Blood Pressure Mean 86 Blood Pressure Source Blood Pressure Position Blood Pressure Location Pulse Ox 94 97 Oxygen Delivery Method Nasal Cannula Nasal Cannula Oxygen Flow Rate (L/min) 2 2 2 03/25/25 11:24 Temperature Temperature Source Pulse Rate Respiratory Rate Respiratory Effort Respiratory Depth Respiratory Pattern Blood Pressure Blood Pressure Mean Blood Pressure Source Blood Pressure Position Blood Pressure Location Pulse Ox Oxygen Delivery Method Oxygen Flow Rate (L/min) 2 Weight Weight: 165 lb 2.02 oz Body Mass Index (BMI) 25.8 Physical Exam Narrative Examination the back shows midline tenderness throughout the thoracic and lumbarspine. Paraspinal tenderness to lower lumbar region. Neurologic evaluation of lower extremity shows 4 x 5 power in all muscle groups. There is obvious kyphosis in the lower thoracic region. Patient is able to sit up and lean forward without significant worsening of pain. Lab / Micro Data 03/25/25 05:35 03/25/25 05:35 Labs: Laboratory Results - last 24 hr 03/25/25 05:35: WBC 7.2, RBC 3.61 L, Hgb 11.5 L, Hct 34.4 L, MCV 95.3 H, MCH 31.9, MCHC 33.4, RDW Std Deviation 47.3 H, RDW Coeff of Stefanie 13.4, Plt Count 208,MPV 9.2, Immature Gran % (Auto) 0.300, Neut % (Auto) 60.9, Lymph % (Auto) 18.3 L, Elliott % (Auto) 13.5 H, Eos % (Auto) 6.6 H, Baso % (Auto) 0.4, Absolute Neuts (auto) 4.4, Absolute Lymphs (auto) 1.31, Nucleated RBC % 0, Sodium 145, Potassium 3.1 L, Chloride 104, Carbon Dioxide 30.4, Anion Gap 10, BUN 17, Creatinine 0.75, Estim Creat Clear Calc 70.00, Est GFR (MDRD) Non-Af 92, BUN/Creatinine Ratio 22.6 H, Glucose 94, Calcium 8.1 Imaging Radiology Impression Lumbar Spine MRI 03/24/25 09:00 IMPRESSION: 1. Fractures of T11 and L1 vertebral bodies. Very mild bone marrow edema involving the T11 vertebral body along with evidence of prior vertebroplasty suggesting it is chronic. Moderate bone marrow edema involving the L1 vertebral body. This is likely subacute to chronic. Retropulsion of T11 of approximately 4 mm, and retropulsion of L1 of approximately 7 mm. This contacts the distal cord. No abnormal cord signal seen. 2. Multilevel degenerative changes throughout the remainder of the lumbar spine. Central stenosis at L4/5. Exit foraminal narrowing at L1/2 on the right, L3/4, L4/5 and L5/S1 as above. Reading Location: [facility] Thoracic Spine MRI 03/24/25 09:00 IMPRESSION: 1. Straightening of the upper thoracic spine. Acute kyphosis lower thoracic spine related to multiple fractures. 2. There is contact of the spinal cord by the T9 vertebral body with no abnormal signal seen. 3. Severe exit foraminal narrowing T9/10. Correlate with radiculopathy at T9. Reading Location: [facility] Assessment & Plan Assessment/Plan (1) Thoracic compression fracture: QUALIFIERS: Encounter type: initial encounter Thoracic vertebra fracture level: T9 Qualified Code(s): S22.070A - Wedge compression fracture of T9-T10 vertebra, initial encounter for closed fracture (2) Lumbar compression fracture: QUALIFIERS: Encounter type: initial encounter Lumbar vertebra fracture level: L1 Qualified Code(s): S32.010A - Wedge compression fracture of first lumbar vertebra, initial encounter for closed fracture (3) History of kyphoplasty: (4) Thoracolumbar kyphosis: QUALIFIERS: Kyphosis type: other secondary Qualified Code(s): M40.15 - Other secondary kyphosis, thoracolumbar region (5) Osteoporosis: QUALIFIERS: Osteoporosis type: age-related Presence of current pathological fracture: without current pathological fracture Qualified Code(s):M81.0 - Age-related osteoporosis without current pathological fracture PLAN: Plan Reviewed recently done CT and MRI of thoracic and lumbar spine since admission. Also reviewed thoracic and lumbar x-rays from October. These show compression fracture deformities at L1, T11, T9. T11 has cement augmentation from history of kyphoplasty. L1 fracture was visible even in the October x-ray. T9 fracture however is not new as it was not present in October x-ray. MRI shows intravertebral cleft at T9 from compression fracture nonhealing. Hyperintensityalso noticed on L1 suggesting subacute nature of the L1 fracture. Internal gibbus and cord indentation noticed. Significant thoracolumbar kyphosis noticed. Osteopenia noticed. Explained imaging findings in detail. Patient has had multiple compression fractures likely pathologic from osteoporosis. Patient is on Prolia and is anticipating second dose in late April. He should continue with this treatment. For his more recent T9 fracture and subacute L1 fracture, treatment options were discussed. Explained to him that most compression fractures heal over 6 to 12 weeks. Patient may consider kyphoplasty for either T9 or T9 and L1if his pain is affecting his quality of life and not improving with time. His most recent fall about a month ago may have caused a new T9 fracture. Explainedto patient and that the fractures are not related to hypoxia or pedal edema. However, use of pain medications for the pain may cause respiratory depression. Purpose of kyphoplasty at T9 or T11 would be for pain control aloneand not improve hypoxia, pedal edema or balance issues. Explained that there isinternal gibbus with cord indentation which may cause myelopathy. If the balance difficulties are not worsening with time, this may be observed. Kyphoplasty will likely not improve myelopathy. Patient wishes to think over his options and follow-up with me on an outpatient basis. Charges/Coding Visit Charges Inpatient E&M: 59187 Init Hosp L3 03/25/25 1318 <Electronically signed by Zandra Freire MD> Cosigner Signature (if applicable): CC: LOIS Brand; Dr. Katarina Fabian MD~ Signed [facility] Work Phone: [phone] Consult note [facility] Medical Records Department [address] [place] [address] Consultation - Orthopedics 03/25/25 1307 MR#: [id number] Acct: [id number] Name: NANCY SY Rep #:[id number] : 1945 80 From: Zandra Freire MD PCP: Katherine Brand, ISAÍAS-C Status:ADM I N Location: [place] [address] HPI Consult Data Date of Consult: 03/25/25 HPI Narrative HPI Narrative: NANCY SY, is a 80 M who presents with back pain. Patient was admitted on Friday night because of hypoxia and pedal edema. Patient is a poor historian. Most of the history was taken through patient's on speaker phone. Patient apparently had multiple falls over the last 2 to3 years. He initially underwent kyphoplasty by Dr. Pate or Dr. Torres, patient is unsure. He had good improvement of his pain from this. He has had multiple falls since this kyphoplasty procedure which was based on imaging likely at T11 level. He however had more recent falls about a month ago which caused him to have worsening back pain. He denies any mid back or upper back pain at this time but says that she has significant pain throughout the back most severe in the beltline region in the lower lumbar region. He is on nasal oxygen. He has been evaluated for cardiac and pulmonary reasons for hypoxia andpedal edema. He says that the pain has been constant since the fall about a month ago. He says that he has worked with physical therapy here in the hospital and has been able to walk with the help of a walker. Past medical history: Chronic macrocytic anemia, CKD stage II per GFR trending, OA, Allergic rhinitis, Former tobacco use [facility] Medical History CKD (chronic kidney disease), stage II Former tobacco use BPH (benign prostatic hyperplasia) HLD (hyperlipidemia) Chronic anemia Pancreatitis Osteoporosis Osteopenia Kidney stones Arthritis Allergies Hemorrhoids Hypertension Home Medications ?Medication ?Instructions ?Recorded ?Last Taken ?Type carvedilol 3.125 mg tablet 3.125 mg PO BID 07/09/23 History amlodipine 10 mg tablet 10 mg PO QDAY 07/26/2403/22 History buspirone 15 mg tablet 15 mg PO BID 07/26/24 History calcium carbonate 1,000 mg PO QDAY 07/26/24 History cyanocobalamin (vitamin B-12) 1,000 mcg PO QDAY 03/22/25 History 1,000 mcg capsule losartan 25 mg tablet 100 mg PO DAILY 07/26/24 History melatonin 5 mg capsule 5 mg PO QHS PRN Sleep 03/22/25 History paroxetine HCl 40 mg tablet 40 mg PO QDAY 07/26/24 History tamsulosin 0.4 mg capsule (Flomax) 0.4 mg PO QDAY 07/0303/22/25 History cholecalciferol (vitamin D3) 1,250 1,250 mcg PO QWEEK 09/23/24 Unknown History mcg (50,000 unit) capsule acetaminophen 325 mg tablet 650 mg PO Q6H PRN pain 03/23/25 History (Tylenol) hydroxyzine HCl 25 mg tablet 25 mg PO 4X/DAY Anxiety 0 03/24/25 Unknown History Allergy/AdvReac Type Severity Reaction Status Date / Time No Known Allergies Allergy Verified 03/23/25 16:56 Family History Father Alcoholism Brother Depression Suicide attempt Grandmother Parkinson disease Sister Osteoporosis Mother Non-alcoholic cirrhosis Surgical History S/P tonsillectomy S/P appendectomy Hx of cholecystectomy Social History household members: spouse Smoking Status: Former smoker how long ago did patient quit smoking: Quit pipe smoking 15 yrs prior, smoked since 14 ~20 refill/day. alcohol intake: never substance use type: does not use Vital Signs Vital Signs Vital Signs: 03/24/25 17:45 03/24/25 21:47 03/24/25 22:00 Temperature 97.7 F L 97.7 F L Temperature Source Oral Temporal Pulse Rate 64 91 Respiratory Rate 16 18 Respiratory Effort Normal Non-Labored Respiratory Depth Normal Respiratory Pattern Normal Blood Pressure 135/89 H 117/64 Blood Pressure Mean 104 81 Blood Pressure Source Monitor Monitor Blood Pressure Position Semi-Fowlers Semi-Fowlers Blood Pressure Location Left Arm Right Arm Pulse Ox 93 92 Oxygen Delivery Method Room Air Room Air Room Air Oxygen Flow Rate (L/min) 03/25/25 03:52 03/25/25 04:27 03/25/25 07:44 Temperature 97.9 F Temperature Source Temporal Pulse Rate 90 Respiratory Rate 18 Respiratory Effort Normal Non-Labored Respiratory Depth Normal Respiratory Pattern Normal Blood Pressure 130/71 H Blood Pressure Mean 90 Blood Pressure Source Monitor Blood Pressure Position Semi-Fowlers Blood Pressure Location Right Arm Pulse Ox 95 Oxygen Delivery Method Nasal Cannula Nasal Cannula Oxygen Flow Rate (L/min) 2 2 03/25/25 09:41 03/25/25 10:00 03/25/25 11:24 Temperature 97.9 F Temperature Source Temporal Pulse Rate 93 Respiratory Rate 18 Respiratory Effort Normal Non-Labored Respiratory Depth Normal Respiratory Pattern Normal Blood Pressure 126/67 H Blood Pressure Mean 86 Blood Pressure Source Blood Pressure Position Blood Pressure Location Pulse Ox 94 97 Oxygen Delivery Method Nasal Cannula Nasal Cannula Oxygen Flow Rate (L/min) 2 2 2 03/25/25 11:24 Temperature Temperature Source Pulse Rate Respiratory Rate Respiratory Effort Respiratory Depth Respiratory Pattern Blood Pressure Blood Pressure Mean Blood Pressure Source Blood Pressure Position Blood Pressure Location Pulse Ox Oxygen Delivery Method Oxygen Flow Rate (L/min) 2 Weight Weight: 165 lb 2.02 oz Body Mass Index (BMI) 25.8 Physical Exam Narrative Examination the back shows midline tenderness throughout the thoracic and lumbarspine. Paraspinal tenderness to lower lumbar region. Neurologic evaluation of lower extremity shows 4 x 5 power in all muscle groups. There is obvious kyphosis in the lower thoracic region. Patient is able to sit up andlean forward without significant worsening of pain. Lab / Micro Data 03/25/25 05:35 03/25/25 05:35 Labs: Laboratory Results - last 24 hr 03/25/25 05:35: WBC 7.2, RBC 3.61 L, Hgb 11.5 L, Hct 34.4 L, MCV 95.3 H, MCH 31.9, MCHC 33.4, RDW Std Deviation 47.3 H, RDW Coeff of Stefanie 13.4, Plt Count 208,MPV 9.2, Immature Gran % (Auto) 0.300, Neut % (Auto) 60.9, Lymph % (Auto) 18.3 L, Elliott % (Auto) 13.5 H, Eos % (Auto) 6.6 H, Baso % (Auto) 0.4,Absolute Neuts (auto) 4.4, Absolute Lymphs (auto) 1.31, Nucleated RBC % 0, Sodium 145, Potassium 3.1 L, Chloride 104, Carbon Dioxide 30.4, Anion Gap 10, BUN 17, Creatinine 0.75, Estim Creat Clear Calc 70.00, Est GFR (MDRD) Non-Af 92, BUN/Creatinine Ratio 22.6 H, Glucose 94, Calcium 8.1 Imaging Radiology Impression Lumbar Spine MRI 03/24/25 09:00 IMPRESSION: 1. Fractures of T11 and L1 vertebral bodies. Very mild bone marrow edema involving the T11 vertebral body along with evidence of prior vertebroplasty suggesting it is chronic. Moderate bone marrow edema involving the L1 vertebral body. This is likely subacute to chronic. Retropulsion of T11 of approximately 4 mm, and retropulsion of L1 of approximately 7 mm. This contacts the distal cord. No abnormal cord signal seen. 2. Multilevel degenerative changes throughout the remainder of the lumbar spine. Central stenosis at L4/5. Exit foraminal narrowing at L1/2 on the right, L3/4, L4/5 and L5/S1 as above. Reading Location: [facility] Thoracic Spine MRI 03/24/25 09:00 IMPRESSION: 1. Straightening of the upper thoracic spine. Acute kyphosis lower thoracic spine related to multiple fractures. 2. There is contact of the spinal cord by the T9 vertebral body with no abnormal signal seen. 3. Severe exit foraminal narrowing T9/10. Correlate with radiculopathy at T9. Reading Location: [facility] Assessment & Plan Assessment/Plan (1) Thoracic compression fracture: QUALIFIERS: Encounter type: initial encounter Thoracic vertebra fracture level: T9 Qualified Code(s): S22.070A - Wedge compression fracture of T9-T10 vertebra, initial encounter for closed fracture (2) Lumbar compression fracture: QUALIFIERS: Encounter type: initial encounter Lumbar vertebra fracture level: L1 Qualified Code(s):S32.010A - Wedge compression fracture of first lumbar vertebra, initial encounter for closed fracture (3) History of kyphoplasty: (4) Thoracolumbar kyphosis: QUALIFIERS: Kyphosis type: other secondary Qualified Code(s): M40.15 - Other secondary kyphosis, thoracolumbar region (5) Osteoporosis: QUALIFIERS: Osteoporosis type: age-related Presence of current pathological fracture: without current pathological fracture Qualified Code(s):M81.0 - Age- related osteoporosis without current pathological fracture PLAN: Plan Reviewed recently done CT and MRI of thoracic and lumbar spine since admission. Also reviewed thoracic and lumbar x-rays from October. These show compression fracture deformities at L1, T11, T9. T11 has cement augmentation from history of kyphoplasty. L1 fracture was visible even in the October x-ray. T9 fracture however is not new as it was not present in October x-ray. MRI shows intravertebral cleft at T9 from compression fracture nonhealing. Hyperintensityalso noticed on L1 suggesting subacute nature of the L1 fracture. Internal gibbus and cord indentation noticed. Significant thoracolumbar kyphosis noticed. Osteopenia noticed. Explained imaging findings in detail. Patient has had multiple compression fractures likely pathologic from osteoporosis. Patient is on Prolia and is anticipating second dose in late April. He should continue with this treatment. For his more recent T9 fracture and subacute L1 fracture, treatment options were discussed. Explained to him that most compression fractures heal over 6 to 12 weeks. Patient may consider kyphoplasty for either T9 or T9 and L1if his pain is affecting his quality of life and not improving with time. His most recent fall about a month ago may have caused a new T9 fracture. Explainedto patient and that the fractures are not related to hypoxia or pedal edema. However, use of pain medications for the pain may cause respiratory depression. Purpose of kyphoplasty at T9 or T11 would be for pain control aloneand not improve hypoxia, pedal edema or balance issues. Explained that there isinternal gibbus with cord indentation which may cause myelopathy. If the balance difficulties are not worsening with time, this may be observed. Kyphoplasty will likely not improve myelopathy. Patient wishes to think over his options and follow-up with me on an outpatient basis. Charges/Coding Visit Charges Inpatient E&M: 65916 Init Hosp L3 03/25/25 6529 Cosigner Signature (if applicable): CC: LOIS Brand; Dr. Katarina Fabian MD~ Signed [facility]07-25-2025 Progress note Author Katarina Fabian [facility] Note Date/Time March 25, 2025 10:3 2am [facility] Medical Records Department [address] [place] [address] Progress Note 03/25/25 1010 MR#: [id number] Acct: [id number] Name: NANCY SY Rep #:[id number] : 1945 80 From: Katarina Fabian MD PCP: Katherine Brand, [employer]SEKEEPING RO[employer] INSPECTOR-C Status:ADM I N Location: [place] [address] Subjective Subjective Patient seen and examined. He said he felt short of breath during the night and felt like he was dying. He denies any chest pain, palpitations, nausea, vomitng or any other symptoms. He is on 2L of oxygen. He is cumulative negative balance by 1.79L. K is 3.1 today. Objective Data Objective Data Vital Signs: Vital Signs Temp Pulse Resp BP Pulse Ox O2 Del Method O2 Flow Rate 97.9 F 93 18 126/67 H 94 Nasal Cannula 2 03/25/25 09:41 03/25/25 09:41 03/25/25 09:41 03/25/25 09:41 03/25/25 09:41 03/25/25 09:41 03/25/25 09:41 Oxygen Flow Rate (L/min) 2 Oxygen Delivery Method Nasal Cannula Weight: 165 lb 2.02 oz Body Mass Index (BMI) 25.8 Intake & Output: Intake and Output for Last 24 Hours 03/23/25 03/24/25 03/25/25 23:59 23:59 23:59 Intake Total 240 / 240 720 / 720 Output Total 700 / 700 1850 / 1850 200 / 200 Balance -460 / -460 -1130 / -1130 -200 / -200 Lab / Micro Data 03/25/25 05:35 03/25/25 05:35 Labs: Laboratory Results - last 24 hr 03/24/25 10:38: Serum Folate 8.06 03/25/25 05:35: WBC 7.2, RBC 3.61 L, Hgb 11.5 L, Hct 34.4 L, MCV 95.3 H, MCH 31.9, MCHC 33.4, RDW Std Deviation 47.3 H, RDW Coeff of Stefanie 13.4, Plt Count 208,MPV 9.2, Immature Gran % (Auto) 0.300, Neut % (Auto) 60.9, Lymph % (Auto) 18.3 L, Elliott % (Auto) 13.5 H, Eos % (Auto) 6.6 H, Baso % (Auto) 0.4, Absolute Neuts (auto) 4.4, Absolute Lymphs (auto) 1.31, Nucleated RBC % 0, Sodium 145, Potassium 3.1 L, Chloride 104, Carbon Dioxide 30.4, Anion Gap 10, BUN 17, Creatinine 0.75, Estim Creat Clear Calc 70.00, Est GFR (MDRD) Non-Af 92, BUN/Creatinine Ratio 22.6 H, Glucose 94, Calcium 8.1 Radiography Diagnostic Testing: Radiology Impression Echocardiogram 03/23/25 22:14 Interpretation Summary The estimated ejection fraction is 55 %. No evidence for diastolic dysfunction. The left atrium is mildly enlarged. Trivial mitral valve insufficiency. Ordering Physician: Merry Pham Performed By: Tommie Gurrola, [facility] Lumbar Spine MRI 03/24/25 09:00 IMPRESSION: 1. Fractures of T11 and L1 vertebral bodies. Very mild bone marrow edema involving the T11 vertebral body along with evidence of prior vertebroplasty suggesting it is chronic. Moderate bone marrow edema involving the L1 vertebral body. This is likely subacute to chronic. Retropulsion of T11 of approximately 4 mm, and retropulsion of L1 of approximately 7 mm. This contacts the distal cord. No abnormal cord signal seen. 2. Multilevel degenerative changes throughout the remainder of the lumbar spine. Central stenosis at L4/5. Exit foraminal narrowing at L1/2 on the right, L3/4, L4/5 and L5/S1 as above. Reading Location: [facility] Thoracic Spine MRI 03/24/25 09:00 IMPRESSION: 1. Straightening of the upper thoracic spine. Acute kyphosis lower thoracic spine related to multiple fractures. 2. There is contact of the spinal cord by the T9 vertebral body with no abnormal signal seen. 3. Severe exit foraminal narrowing T9/10. Correlate with radiculopathy at T9. Reading Location: [facility] Physical Exam Const alert, oriented x3 and no apparent distress Constitutional Narrative: frail General Appearance: cooperative HEENT normocephalic and head/scalp atraumatic Eyes PERRL Neck no lymphadenopathy and supple Lymph Lymphatic: no lymphadenopathy noted and no lymphedema noted Resp Resp Narrative: mildly diminished breath sounds bibasally, Cardio regular rate, regular rhythm, S1 normal heart sound, S2 normal heart sound and no murmurs GI normal to inspection, nondistended, normoactive bowel sounds and soft to palpation Extremity Extremity Narrative: both LEs wrapped in NIKKI bandage. Skin Skin Narrative: as under extremities. Neuro CN's II-XII intact bilaterally Motor Exam: general weakness Psych thought process normal and cooperative Appearance: appropriate Assessment & Plan Assessment/Plan (1) Acute on chronic back pain: PLAN: Plan #Debility and weakness due to mechanical falls with resultant compression fractures * Patient complaining of acute on chronic back pain. Imaging done showed severe compression fracture of L1 with moderate spinal canal stenosis in addition to moderate to severe compression deformity of T9 vertebral body. * Lumbar spine MRI showed fractures of T11 and L1 vertebral bodies which is chronic with moderate bone marrow edema and foraminal narrowing at L1 and L2 and L3-L4, L4-L5, L5-S1. * Thoracic spine MRI showed straightening of the upper thoracic spine with acute kyphosis of the lower thoracic spine related to multiple fractures and severe exit foraminal narrowing at T9-10. * PT OT on board. Fall precautions. On lidocaine patch as needed as well as IV Toradol and gabapentin. * PT/OT on board. Fall precautions. * orthospine consulted. #Bilateral lower extremity swelling * Etiology is unclear. 2D echo done today showed EF of 55% with no diastolic dysfunction. His got on the phone and give more of his history. She said he had been having this lower extremity edema for some weeks now and was seen at [facility] where he was told that he may need Lasix. She states that he had some cardiac testing done though she does not know the exact ones he had done and these were all negative. He was on Lasix for some time but it did not really help. * Patient currently on IV Lasix. He is diuresing very well. Bilateral lower extremities wrapped in Nikki bandage but swelling does seem to have improved a bit. #Hypoxia: * Patient requiring 2 L of oxygen today. His lungs have bilateral crackles. He is being diuresed so is not likely fluid overload. * I suspect patient likely has atelectasis and chest x-ray on admission 2 days ago did show linear basilar opacities on the left which could to represent atelectasis versus scar * Encourage incentive spirometry use. * Breathing treatments bronchodilators. Titrate oxygen to maintain saturation above 90%. * Hypertension: On Coreg and losartan as well as amlodipine. 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 DVT prophylaxis: lovenox COde status: full code Charges/Coding Visit Charges Inpatient E&M: 24611 Subs Hosp L2 03/25/25 1032 <Electronically signed by Katarina Fabian MD> Katarina Fabian MD Cosigner Signature (if applicable): CC: ~ Signed [facility] Work Phone: 1(141) 480-973007-25-2025 Progress note [facility] Medical Records Department [address] [place] [address] Progress Note 03/25/25 1010 MR#: [id number] Acct: [id number] Name: NANCY SY Rep #:[id number] : 1945 80 From: Katarina Fabian MD PCP: NOAH ResendizC Status:ADM I N Location: [place] [address] Subjective Subjective Patient seen and examined. He said he felt short of breath during the night and felt like he was dying. He denies any chest pain, palpitations, nausea, vomitng or any other symptoms. He is on 2L of oxygen. He is cumulative negative balance by 1.79L. K is 3.1 today. Objective Data Objective Data Vital Signs: Vital Signs Temp Pulse Resp BP Pulse Ox O2 Del Method O2 Flow Rate 97.9 F 93 18 126/67 H 94 Nasal Cannula 2 03/25/25 09:41 03/25/25 09:41 03/25/25 09:41 03/25/25 09:41 03/25/25 09:41 03/25/25 09:41 03/25/25 09:41 Oxygen Flow Rate (L/min) 2 Oxygen Delivery Method Nasal Cannula Weight: 165 lb 2.02 oz Body Mass Index (BMI) 25.8 Intake & Output: Intake and Output for Last 24 Hours 03/23/25 03/24/25 03/25/25 23:59 23:59 23:59 Intake Total 240 / 240 720 / 720 Output Total 700 / 700 1850 / 1850 200 / 200 Balance -460 / -460 -1130 / -1130 -200 / -200 Lab / Micro Data 03/25/25 05:35 03/25/25 05:35 Labs: Laboratory Results - last 24 hr 03/24/25 10:38: Serum Folate 8.06 03/25/25 05:35: WBC 7.2, RBC 3.61 L, Hgb 11.5 L, Hct 34.4 L, MCV 95.3 H, MCH 31.9, MCHC 33.4, RDW Std Deviation 47.3 H, RDW Coeff of Stefanie 13.4, Plt Count 208,MPV 9.2, Immature Gran % (Auto) 0.300, Neut % (Auto) 60.9, Lymph % (Auto) 18.3 L, Elliott % (Auto) 13.5 H, Eos % (Auto) 6.6 H, Baso % (Auto) 0.4,Absolute Neuts (auto) 4.4, Absolute Lymphs (auto) 1.31, Nucleated RBC % 0, Sodium 145, Potassium 3.1 L, Chloride 104, Carbon Dioxide 30.4, Anion Gap 10, BUN 17, Creatinine 0.75, Estim Creat Clear Calc 70.00, Est GFR (MDRD) Non-Af 92, BUN/Creatinine Ratio 22.6 H, Glucose 94, Calcium 8.1 Radiography Diagnostic Testing: Radiology Impression Echocardiogram 03/23/25 22:14 Interpretation Summary The estimated ejection fraction is 55 %. No evidence for diastolic dysfunction. The left atrium is mildly enlarged. Trivial mitral valve insufficiency. Ordering Physician: Merry Pham Performed By: Tommie Gurrola RCS Lumbar Spine MRI 03/24/25 09:00 IMPRESSION: 1. Fractures of T11 and L1 vertebral bodies. Very mild bone marrow edema involving the T11 vertebral body along with evidence of prior vertebroplasty suggesting it is chronic. Moderate bone marrow edema involving the L1 vertebral body. This is likely subacute to chronic. Retropulsion of T11 of approximately 4 mm, and retropulsion of L1 of approximately 7 mm. This contacts the distal cord. No abnormal cord signal seen. 2. Multilevel degenerative changes throughout the remainder of the lumbar spine. Central stenosis at L4/5. Exit foraminal narrowing at L1/2 on the right, L3/4, L4/5 and L5/S1 as above. Reading Location: [facility] Thoracic Spine MRI 03/24/25 09:00 IMPRESSION: 1. Straightening of the upper thoracic spine. Acute kyphosis lower thoracic spine related to multiple fractures. 2. There is contact of the spinal cord by the T9 vertebral body with no abnormal signal seen. 3. Severe exit foraminal narrowing T9/10. Correlate with radiculopathy at T9. Reading Location: [facility] Physical Exam Const alert, oriented x3 and no apparent distress Constitutional Narrative: frail General Appearance: cooperative HEENT normocephalic and head/scalp atraumatic Eyes PERRL Neck no lymphadenopathy and supple Lymph Lymphatic: no lymphadenopathy noted and no lymphedema noted Resp Resp Narrative: mildly diminished breath sounds bibasally, Cardio regular rate, regular rhythm, S1 normal heart sound, S2 normal heart sound and no murmurs GI normal to inspection, nondistended, normoactive bowel sounds and soft to palpation Extremity Extremity Narrative: both LEs wrapped in NIKKI bandage. Skin Skin Narrative: as under extremities. Neuro CN's II-XII intact bilaterally Motor Exam: general weakness Psych thought process normal and cooperative Appearance: appropriate Assessment & Plan Assessment/Plan (1) Acute on chronic back pain: PLAN: Plan #Debility and weakness due to mechanical falls with resultant compression fractures * Patient complaining of acute on chronic back pain. Imaging done showed severe compression fracture of L1 with moderate spinal canal stenosis in addition to moderate to severe compression deformity of T9 vertebral body. * Lumbar spine MRI showed fractures of T11 and L1 vertebral bodies which is chronic with moderate bone marrow edema and foraminal narrowing at L1 and L2 and L3-L4, L4-L5, L5-S1. * Thoracic spine MRI showed straightening of the upper thoracic spine with acute kyphosis of the lower thoracic spine related to multiple fractures and severe exit foraminal narrowing at T9-10. * PT OT on board. Fall precautions. On lidocaine patch as needed as well as IV Toradol and gabapentin. * PT/OT on board. Fall precautions. * orthospine consulted. #Bilateral lower extremity swelling * Etiology is unclear. 2D echo done today showed EF of 55% with no diastolic dysfunction. His got on the phone and give more of his history. She said he had been having this lower extremity edema for some weeks now and was seen at [facility] where he was told that he may need Lasix. She states that he had some cardiac testing done though she does not know the exact ones he haddone and these were all negative. He was on Lasix for some time but it did not really help. * Patient currently on IV Lasix. He is diuresing very well. Bilateral lower extremities wrapped in Nkiki bandage but swelling does seem to have improved a bit. #Hypoxia: * Patient requiring 2 L of oxygen today. His lungs have bilateral crackles. He is being diuresed sois not likely fluid overload. * I suspect patient likely has atelectasis and chest x-ray on admission 2 days ago did show linear basilar opacities on the left which could to represent atelectasis versus scar * Encourage incentive spirometry use. * Breathing treatments bronchodilators. Titrate oxygen to maintain saturation above 90%. * Hypertension: On Coreg and losartan as well as amlodipine. 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 DVT prophylaxis: lovenox COde status: full code Charges/Coding Visit Charges Inpatient E&M: 95661 Subs Hosp L2 03/25/25 1032 Katarnia Fabian MD Cosigner Signature (if applicable): CC: ~ Signed [facility]07-24-2025 Progress note Author [facility] Note Date/Time March 24, 2025 3:20 pm [facility] Medical Records Department [address] [place] [address] Progress Note 03/24/25 1457 MR#: [id number] Acct: [id number] Name: NANCY SY Rep #:[id number] : 1945 80 From: Katarina Fabian MD PCP: Katherine Brand, HOUSEKEEPING ROOM INSPECTOR-C Status:ADM I N Location: [place] [address] Subjective Subjective Patient seen and examined. He complains of the lower extremity swelling. He denied any fever or chills, shortness of breath, palpitations, dizziness, nauseaor vomiting. I saw him with his nurse present bedside. Review of systems otherwise negative. Objective Data Objective Data Vital Signs: Vital Signs Temp Pulse Resp BP Pulse Ox O2 Del Method 97.9 F 84 16 152/74 H 95 Room Air 03/24/25 11:45 03/24/25 11:45 03/24/25 11:45 03/24/25 11:45 03/24/25 11:45 03/24/25 11:45 Oxygen Delivery Method Room Air Weight: 170 lb 6.995 oz Body Mass Index (BMI) 26.6 Intake & Output: Intake and Output for Last 24 Hours 03/22/25 03/23/25 03/24/25 23:59 23:59 23:59 Intake Total 240 / 240 240 / 240 Output Total 700 / 700 1050 / 1050 Balance -460 / -460 -810 / -810 Lab / Micro Data 03/24/25 05:40 03/24/25 05:40 Labs: Laboratory Results - last 24 hr 03/23/25 17:41: WBC 8.0, RBC 3.92 L, Hgb 12.6 L, Hct 37.2 L, MCV 94.9 H, MCH 32.1 H, MCHC 33.9, RDW Std Deviation 47.0 H, RDW Coeff of Stefanie 13.5, Plt Count 232, MPV 8.9, Immature Gran % (Auto) 0.500, Neut % (Auto) 75.3 H, Lymph % (Auto)10.3 L, Elliott % (Auto) 10.1 H, Eos % (Auto) 3.3, Baso % (Auto) 0.5, Absolute Neuts (auto) 6.0, Absolute Lymphs (auto) 0.82 L, Nucleated RBC % 0, Sodium 144, Potassium 3.8, Chloride 105, Carbon Dioxide 28.5, Anion Gap 10, BUN 15, Creatinine 0.84, Estim Creat Clear Calc 71.31, Est GFR (MDRD) Non-Af 89, BUN/Creatinine Ratio 17.4, Glucose 95, Calcium 9.2, Total Bilirubin 0.29, AST 16, ALT 9, Alkaline Phosphatase 112, Troponin T High Sens 33 H, NT pro BNP II 417, Total Protein 6.2, Albumin 3.8, Globulin 2.4, Albumin/Globulin Ratio 1.5, Lipase 21 03/23/25 19:41: Magnesium 1.6, Troponin T Hi Sens 2 Hr 27 H 03/23/25 21:52: Troponin T Hi Sens 4Hr 28 H 03/24/25 05:40: WBC 7.2, RBC 3.62 L, Hgb 11.6 L, Hct 34.2 L, MCV 94.5 H, MCH 32.0, MCHC 33.9, RDW Std Deviation 47.5 H, RDW Coeff of Stefanie 13.6, Plt Count 219,MPV 9.0, Immature Gran % (Auto) 0.400, Neut % (Auto) 61.6, Lymph % (Auto) 19.2, Elliott % (Auto) 13.4 H, Eos % (Auto) 5.0, Baso % (Auto) 0.4, Absolute Neuts (auto)4.4, Absolute Lymphs (auto) 1.38, Nucleated RBC % 0, Sodium 145, Potassium 3.7, Chloride 105, Carbon Dioxide 30.9, Anion Gap 9, BUN 16, Creatinine 0.85, Estim Creat Clear Calc 65.88, Est GFR (MDRD) Non-Af 88, BUN/Creatinine Ratio 18.8, Glucose 96, Calcium 8.7, Iron 49 L, TIBC 168 L, Iron Saturation 29.2, Unsaturated IBC 119 L, Ferritin 680 H, Total Bilirubin 0.36, AST 14, ALT 7, Alkaline Phosphatase 102, Total Protein 5.6 L, Albumin 3.3 L, Globulin 2.2, Albumin/Globulin Ratio 1.5, Triglycerides 45, Cholesterol 106, LDL Cholesterol, Calc 62, VLDL Cholesterol 9, HDL Cholesterol 35 L, Cholesterol/HDL Ratio 3.02, Vitamin B12 1246 H, TSH 0.640 03/24/25 10:38: Serum Folate 8.06 Radiography Diagnostic Testing: Radiology Impression Venous Duplex 03/23/25 17:33 IMPRESSION: No DVT. Reading Location: [facility] Brain CT 03/23/25 18:12 IMPRESSION: No acute intracranial abnormality. Reading Location: [facility] Lumbar Spine CT 03/23/25 18:12 IMPRESSION: 1. Severe compression deformity of L1 vertebral body, likely chronic. However,this does results in moderate spinal canal stenosis. 2. If symptoms persist, further evaluation with MRI is recommended. Reading Location: [facility] Thoracic Spine CT 03/23/25 18:12 IMPRESSION: 1. No acute fracture. 2. Moderate to severe compression deformity of T9 vertebral body with lucency along the anterior aspect, acute fracture can not be excluded. Reading Location: [facility] Chest X-Ray 03/23/25 18:20 IMPRESSION: No Acute Findings. Reading Location: [facility] Echocardiogram 03/23/25 22:14 Interpretation Summary The estimated ejection fraction is 55 %. No evidence for diastolic dysfunction. The left atrium is mildly enlarged. Trivial mitral valve insufficiency. Ordering Physician: Merry Pham Performed By: Tommie Gurrola RCS Physical Exam Const alert, oriented x3 and no apparent distress Constitutional Narrative: frail General Appearance: cooperative HEENT normocephalic and head/scalp atraumatic Mouth: dry mucous membranes Eyes PERRL Neck no lymphadenopathy and supple Lymph Lymphatic: no lymphadenopathy noted and no lymphedema noted Resp Resp Narrative: mildly diminished breath sounds bibasally, Cardio regular rate, regular rhythm, S1 normal heart sound, S2 normal heart sound and no murmurs GI normal to inspection, nondistended, normoactive bowel sounds and soft to palpation Extremity Extremity Narrative: both LEs wrapped in NIKKI bandage. Skin Skin Narrative: as under extremities. Neuro CN's II-XII intact bilaterally Motor Exam: general weakness Psych thought process normal and cooperative Appearance: appropriate Assessment & Plan Assessment/Plan (1) Acute on chronic back pain: PLAN: Plan #Debility and weakness due to mechanical falls with resultant compression fractures * Patient complaining of acute on chronic back pain. Imaging done showed severe compression fracture of L1 with moderate spinal canal stenosis in addition to moderate to severe compression deformity of T9 vertebral body. * MRI of the lumbar spine and thoracic spine ordered. Orthospine consulted. On IV Toradol as well as gabapentin and tenacity and then as needed. Lidocaine patch pain meds as needed. * B2 tomorrow. Fall precautions. #Bilateral lower extremity swelling * Etiology is unclear. 2D echo done today showed EF of 55% with no diastolic dysfunction. His got on the phone and give more of his history. She said he had been having this lower extremity edema for some weeks now and was seen at [facility] where he was told that he may need Lasix. She states that he had some cardiac testing done though she does not know the exact ones he had done and these were all negative. He was on Lasix for some time but it did not really help. * Patient currently on IV Lasix. He is diuresing very well. Bilateral lower extremities wrapped in Nikki bandage but swelling does seem to have improved a bit. Hypertension: On Coreg and losartan as well as amlodipine. 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 DVT prophylaxis: lovenox COde status: full code Charges/Coding Visit Charges Inpatient E&M: 55670 Subs Hosp L2 03/24/25 1520 <Electronically signed by Katarina Fabian MD> Katarina Fabian MD Cosigner Signature (if applicable): CC: ~ Signed [facility] Work Phone: [phone]) 344-983107-24-2025 Progress note [facility] Medical Records Department [address] [place] [id number] Progress Note 03/24/25 1457 MR#: [id number] Acct: [id number] Name: NANCY SY Rep #:[id number] : 1945 80 From: Katarina Fabian MD PCP: NOAH ResendizC Status:ADM I N Location: [place] [address] Subjective Subjective Patient seen and examined. He complains of the lower extremity swelling. He denied any fever or chills, shortness of breath, palpitations, dizziness, nauseaor vomiting. I saw him with his nurse present bedside. Review of systems otherwise negative. Objective Data Objective Data Vital Signs: Vital Signs Temp Pulse Resp BP Pulse Ox O2 Del Method 97.9 F 84 16 152/74 H 95 Room Air 03/24/25 11:45 03/24/25 11:45 03/24/25 11:45 03/24/25 11:45 03/24/25 11:45 03/24/25 11:45 Oxygen Delivery Method Room Air Weight: 170 lb 6.995 oz Body Mass Index (BMI) 26.6 Intake & Output: Intake and Output for Last 24 Hours 03/22/25 03/23/25 03/24/25 23:59 23:59 23:59 Intake Total 240 / 240 240 / 240 Output Total 700 / 700 1050 / 1050 Balance -460 / -460 -810 / -810 Lab / Micro Data 03/24/25 05:40 03/24/25 05:40 Labs: Laboratory Results - last 24 hr 03/23/25 17:41: WBC 8.0, RBC 3.92 L, Hgb 12.6 L, Hct 37.2 L, MCV 94.9 H, MCH 32.1 H, MCHC 33.9, RDWStd Deviation 47.0 H, RDW Coeff of Stefanie 13.5, Plt Count 232, MPV 8.9, Immature Gran % (Auto) 0.500, Neut % (Auto) 75.3 H, Lymph % (Auto)10.3 L, Elliott % (Auto) 10.1 H, Eos % (Auto) 3.3, Baso % (Auto) 0.5, Absolute Neuts (auto) 6.0, Absolute Lymphs (auto) 0.82 L, Nucleated RBC % 0, Sodium 144, Potassium 3.8, Chloride 105, Carbon Dioxide 28.5, Anion Gap 10, BUN 15, Creatinine 0.84, Estim Creat Clear Calc 71.31, Est GFR (MDRD) Non-Af 89, BUN/Creatinine Ratio 17.4, Glucose 95, Calcium 9.2, Total Bilirubin 0.29, AST 16, ALT 9, Alkaline Phosphatase 112, Troponin T High Sens 33 H, NT pro BNP II 417, Total Protein 6.2, Albumin 3.8, Globulin 2.4, Albumin/Globulin Ratio 1.5, Lipase 21 03/23/25 19:41: Magnesium 1.6, Troponin T Hi Sens 2 Hr 27 H 03/23/25 21:52: Troponin T Hi Sens 4Hr 28 H 03/24/25 05:40: WBC 7.2, RBC 3.62 L, Hgb 11.6 L, Hct 34.2 L, MCV 94.5 H, MCH 32.0, MCHC 33.9, RDW Std Deviation 47.5 H, RDW Coeff of Stefanie 13.6, Plt Count 219,MPV 9.0, Immature Gran % (Auto) 0.400, Neut % (Auto) 61.6, Lymph % (Auto) 19.2, Elliott % (Auto) 13.4 H, Eos % (Auto) 5.0, Baso % (Auto) 0.4, Absolute Neuts (auto)4.4, Absolute Lymphs (auto) 1.38, Nucleated RBC % 0, Sodium 145, Potassium 3.7, Chloride 105, Carbon Dioxide 30.9, Anion Gap 9, BUN 16, Creatinine 0.85, Estim Creat Clear Calc 65.88,Est GFR (MDRD) Non-Af 88, BUN/Creatinine Ratio 18.8, Glucose 96, Calcium 8.7, Iron 49 L, TIBC 168 L, Iron Saturation 29.2, Unsaturated IBC 119 L, Ferritin 680 H, Total Bilirubin 0.36, AST 14, ALT 7, A lkaline Phosphatase 102, Total Protein 5.6 L, Albumin 3.3 L, Globulin 2.2, Albumin/Globulin Ratio 1.5, Triglycerides 45, Cholesterol 106, LDL Cholesterol, Calc 62, VLDL Cholesterol 9, HDL Pamizzjentl02 L, Cholesterol/HDL Ratio 3.02, Vitamin B12 1246 H, TSH 0.640 03/24/25 10:38: Serum Folate 8.06 Radiography Diagnostic Testing: Radiology Impression Venous Duplex 03/23/25 17:33 IMPRESSION: No DVT. Reading Location: [facility] Brain CT 03/23/25 18:12 IMPRESSION: No acute intracranial abnormality. Reading Location: [facility] Lumbar Spine CT 03/23/25 18:12 IMPRESSION: 1. Severe compression deformity of L1 vertebral body, likely chronic. However,this does results in moderate spinal canal stenosis. 2. If symptoms persist, further evaluation with MRI is recommended. Reading Location: [facility] Thoracic Spine CT 03/23/25 18:12 IMPRESSION: 1. No acute fracture. 2. Moderate to severe compression deformity of T9 vertebral body with lucency along the anterior aspect, acute fracture can not be excluded. Reading Location: [facility] Chest X-Ray 03/23/25 18:20 IMPRESSION: No Acute Findings. Reading Location: [facility] Echocardiogram 03/23/25 22:14 Interpretation Summary The estimated ejection fraction is 55 %. No evidence for diastolic dysfunction. The left atrium is mildly enlarged. Trivial mitral valve insufficiency. Ordering Physician: Merry Pham Performed By: Tommie Gurrola RCS Physical Exam Const alert, oriented x3 and no apparent distress Constitutional Narrative: frail General Appearance: cooperative HEENT normocephalic and head/scalp atraumatic Mouth: dry mucous membranes Eyes PERRL Neck no lymphadenopathy and supple Lymph Lymphatic: no lymphadenopathy noted and no lymphedema noted Resp Resp Narrative: mildly diminished breath sounds bibasally, Cardio regular rate, regular rhythm, S1 normal heart sound, S2 normal heart sound and no murmurs GI normal to inspection, nondistended, normoactive bowel sounds and soft to palpation Extremity Extremity Narrative: both LEs wrapped in NIKKI bandage. Skin Skin Narrative: as under extremities. Neuro CN's II-XII intact bilaterally Motor Exam: general weakness Psych thought process normal and cooperative Appearance: appropriate Assessment & Plan Assessment/Plan (1) Acute on chronic back pain: PLAN: Plan #Debility and weakness due to mechanical falls with resultant compression fractures * Patient complaining of acute on chronic back pain. Imaging done showed severe compression fracture of L1 with moderate spinal canal stenosis in addition to moderate to severe compression deformity of T9 vertebral body. * MRI of the lumbar spine and thoracic spine ordered. Orthospine consulted. On IV Toradol as well as gabapentin and tenacity and then as needed. Lidocaine patch pain meds as needed. * B2 tomorrow. Fall precautions. #Bilateral lower extremity swelling * Etiology is unclear. 2D echo done today showed EF of 55% with no diastolic dysfunction. His got on the phone and give more of his history. She said he had been having this lower extremity edema for some weeks now and was seen at [facility] where he was told that he may need Lasix. She states that he had some cardiac testing done though she does not know the exact ones he haddone and these were all negative. He was on Lasix for some time but it did not really help. * Patient currently on IV Lasix. He is diuresing very well. Bilateral lower extremities wrapped in Nikki bandage but swelling does seem to have improved a bit. Hypertension: On Coreg and losartan as well as amlodipine. 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 DVT prophylaxis: lovenox COde status: full code Charges/Coding Visit Charges Inpatient E&M: 89299 Subs Hosp L2 03/24/25 1520 Katarina Fabian MD Cosigner Signature (if applicable): CC: ~ Signed [facility]07-24-2025 Discharge summary Author Marco Camacho [facility] Note Date/Time March 23, 2025 11:2 7pm [facility] Medical Records Department [address] [place] [address] Emergency Department Summary 03/23/25 MR#: [id number] Acct: [id number] Name: NANCY SY Rep #:[id number] : 1945 80 From: Marco Askew PCP: LOIS Resendiz Status:ADM I N Location: [address] History of Present Illness Chief Complaint: Edema [facility] Medical History CKD (chronic kidney disease), stage II Former tobacco use BPH (benign prostatic hyperplasia) HLD (hyperlipidemia) Chronic anemia Pancreatitis Osteoporosis Osteopenia Kidney stones Arthritis Allergies Hemorrhoids Hypertension Home Medications ?Medication ?Instructions ?Recorded ?Last Taken ?Type carvedilol 3.125 mg tablet 3.125 mg PO BID 07/09/23 History amlodipine 10 mg tablet 10 mg PO QDAY 07/26/2403/22 History buspirone 15 mg tablet 15 mg PO BID 07/26/24 History calcium carbonate 1,000 mg PO QDAY 07/26/24 History cyanocobalamin (vitamin B-12) 1,000 mcg PO QDAY 03/22/25 History 1,000 mcg capsule losartan 25 mg tablet 100 mg PO DAILY 07/26/24 History melatonin 5 mg capsule mg PO 07/26/24 03/22/25 Hist ory paroxetine HCl 40 mg tablet 40 mg PO QDAY 07/26/24 History tamsulosin 0.4 mg capsule (Flomax) 0.4 mg PO QDAY 07/0303/22/25 History cholecalciferol (vitamin D3) 1,250 1,250 mcg PO QWEEK 09/23/24 Unknown History mcg (50,000 unit) capsule acetaminophen 325 mg tablet 650 mg PO Q6H PRN pain 03/23/25 History (Tylenol) Allergy/AdvReac Type Severity Reaction Status Date / Time No Known Allergies Allergy Verified 03/23/25 16:56 Family History Father Alcoholism Brother Depression Suicide attempt Grandmother Parkinson disease Sister Osteoporosis Mother Non-alcoholic cirrhosis Surgical History S/P tonsillectomy S/P appendectomy Hx of cholecystectomy Social History household members: spouse Smoking Status: Former smoker how long ago did patient quit smoking: Quit pipe smoking 15 yrs prior, smoked since 14 ~20 refill/day. alcohol intake: never substance use type: does not use EXAM Physical Exam Const Vital Signs: 03/23/25 15:59 03/23/25 16:56 03/23/25 18:00 Temperature 98.4 F Temperature Source Oral Pulse Rate 102 H 94 Respiratory Rate 16 18 Respiratory Effort Normal Respiratory Pattern Normal Blood Pressure 134/80 H 149/80 H Blood Pressure Mean 98 103 Pulse Ox 94 95 Oxygen Delivery Method Room Air Room Air 03/23/25 19:24 03/23/25 19:30 03/23/25 19:45 Temperature Temperature Source Pulse Rate 93 93 Respiratory Rate 19 H 21 H Respiratory Effort Respiratory Pattern Blood Pressure 148/80 H Blood Pressure Mean 100 Pulse Ox 94 95 Oxygen Delivery Method 03/23/25 20:00 03/23/25 20:00 03/23/25 20:01 Temperature 97.9 F Temperature Source Pulse Rate 97 97 97 Respiratory Rate 20 H 19 H 16 Respiratory Effort Respiratory Pattern Blood Pressure 165/84 H 165/84 H 165/84 H Blood Pressure Mean 111 105 111 Pulse Ox 95 92 98 Oxygen Delivery Method Room Air MDM MDM MDM Narrative Medical decision making narrative: HISTORY OF PRESENT ILLNESS: Chief complaint: Lower extremity swelling, difficulty ambulating 80-year-old male history of osteoporosis, hypertension, presents with a myriad complaints. States last 2 weeks has had worsening swelling in bilateral lower extremities. His daughter and state he started a water pill 2 weeks ago and use it for 3 days but did not relieve his symptoms. Patient is also concerned about difficulty walking and balance issues. Also concerned about chronic back pain. He states balance issues have made been made worse by swelling. He notes shortness of breath and dyspnea on exertion. Denies cough fever chills. Denies any bleeding diathesis. Denies any palpitations. Denies any history of liver dysfunction, alcohol abuse. Denies decreased urination or history of kidney dysfunction. In terms of balance issues his last fall was 1 month ago and has had no imaging of his back despite recent hospitalization. Patient denies active cancer, being bedridden for greater than 3 days, denies unilateral leg swelling, denies any varicose veins, denies any calf tenderness, denies tenderness along deep venous system. Denies major surgery within 12 weeks, recent paralysis, previous DVT. Of note the patient notes a fall approximate 1 month ago which he injured his back. He notes he has a history ofcompression fractures in the back and this was never evaluated despite his recent hospitalization because his pain was thought to be due to already known compression fractures. REVIEW OF SYSTEMS: Pertinent positives: Leg swelling, shortness of breath, back pain, balance difficulties Pertinent negatives: As per HPI PHYSICAL EXAM: Nursing triage notes reviewed, Vital signs reviewed Constitutional: Elderly, chronically ill-appearing male HENT: MMM Eyes: Pupils equal round and reactive to light, Extraocular muscles intact Neck: No stridor, no JVD, full neck ROM Lungs: Clear to auscultation, No wheezing or rales. No increased work of breathing, no conversational dyspnea, no accessory muscle use, no nasal flaring. No respiratory distress noted Heart: Regular rate and rhythm, No murmurs, No rubs and No gallops, 2+ distal pulses (radial, femoral, posterior tibial) in all extremities Abdomen: Soft, there is no tenderness, rigidity, rebound or guarding, no obviousperitoneal signs, no palpable pulsatile abdominal masses, no auscultated abdominal bruit : No CVAT Back: TTP over thoracolumbar junction Extremities: 3+ pitting edema bilaterally, no calf tenderness, no rashes or signs of infection. Compartments are soft Neuro: No new focal neurological deficits, cranial nerves II through XII intact,5/5 strength in all present extremities. Intact sensation to light touch in all present extremities, 2+ reflexes bilateral patella tendons. Skin: Skin pallor noted MEDICAL DECISION MAKING: Chief Complaint: please see [facility] External records reviewed: Reviewed prior outpatient visits, reviewed medications Factors affecting care: As per [facility] Social determinants of health: Elderly History obtained from others: Family Consults: Hospitalist (Dr. Pham) recommended inpatient admission. [facility] Narrative: The patient was initially hemodynamically stable, afebrile and nontoxic- appearing. Exam without focal neurologic deficit. No ataxia, truncal ataxia. Gait was short and shuffling but not ataxic. Cardiopulmonary exam unremarkable for rales or signs of respiratory distress. Lower extremities with symmetric 3+pitting edema bilaterally. I considered the following differential diagnosis: ICH, intracranial mass, CVA, bony injury to thoracic lumbar spine, ACS, arrhythmia, CHF, liver failure, kidney failure, venous insufficiency I obtained a broad lab and imaging workup to further determine if the patient was suffering from a life-threatening etiology. ALL IMAGES (IF OBTAINED) HAVE BEEN PERSONALLY REVIEWED AND INTERPRETED BY MYSELF. Chest x-ray was read and reviewed personally myself showed no evidence of obvious pneumonia, pneumothorax or heart failure. Radiologist agreed my interpretation CT scan of the brain shows no evidence of ICH CT scan of the thoracic spine is remarkable for T9 compression fracture CT scan of the lumbar spine compression fracture L1 vertebra Bilateral DVT ultrasounds negative for acute DVT CBC without leukocytosis, mild anemia, no thrombocytopenia BMP without significant electrolyte abnormalities, no acute kidney injury, LFTs without evidence of hepatobiliary obstruction Initial troponin negative. Delta troponin remains negative, third troponin remains negative effectively ruling out ACS The synthesis of the patient's history, physical exam, labs and images suggest venous insufficiency causing lower extremity edema. Chronic compression fractures of the T and L-spine that are causing immobility and difficulty ambulating. Given his advanced age and his difficulty performing ADLs he will require admission to the hospital for further evaluation, management and possible placement. Discussed with hospitalist Dr. Pham The patient and/or family, caregivers express understanding. The patient and/orfamily, caregivers agrees with the plan. Shared decision making: I will have a discussion with the patient and or visitors regarding risk/benefits of further testing or admission. They will be made aware of of the risk/benefits inherent in this decision they will be given the opportunity to voice understanding. Total critical care time today provided was at least 0 minutes. This excludes separately billable procedures. Critical care time (if documented) is secondary to the patient having high probability of clinically significant/life threatening deterioration in the patient's condition which required my urgent intervention. Impression: 1. Bilateral lower extremity edema 2. Gait dysfunction 3. T9 compression fracture 4. L1 compression fracture Dispo: Admit This note was generated with [employer] dictation software. It may contain incorrectwords, spelling, and punctuation that were not noted in review of the chart prior to signing. Lab Data Labs: Laboratory Results - last 24 hr 03/23/25 03/23/25 17:41 19:41 WBC 8.0 RBC 3.92 L Hgb 12.6 L Hct 37.2 L MCV 94.9 H MCH 32.1 H MCHC 33.9 RDW Std Deviation 47.0 H RDW Coeff of Stefanie 13.5 Plt Count 232 MPV 8.9 Immature Gran % (Auto) 0.500 Neut % (Auto) 75.3 H Lymph % (Auto) 10.3 L Elliott % (Auto) 10.1 H Eos % (Auto) 3.3 Baso % (Auto) 0.5 Absolute Neuts (auto) 6.0 Absolute Lymphs (auto) 0.82 L Nucleated RBC % 0 Sodium 144 Potassium 3.8 Chloride 105 Carbon Dioxide 28.5 Anion Gap 10 BUN 15 Creatinine 0.84 Estim Creat Clear Calc 71.31 Est GFR (MDRD) Non-Af 89 BUN/Creatinine Ratio 17.4 Glucose 95 Calcium 9.2 Magnesium 1.6 Total Bilirubin 0.29 AST 16 ALT 9 Alkaline Phosphatase 112 Troponin T High Sens 33 H Troponin T Hi Sens 2 Hr 27 H NT pro BNP II 417 Total Protein 6.2 Albumin 3.8 Globulin 2.4 Albumin/Globulin Ratio 1.5 Lipase 21 Radiography Diagnostic Testing: Clinical Impression(s) from Imaging Studies Venous Duplex 03/23/25 17:33 IMPRESSION: No DVT. Reading Location: [facility] Brain CT 03/23/25 18:12 IMPRESSION: No acute intracranial abnormality. Reading Location: [facility] Lumbar Spine CT 03/23/25 18:12 IMPRESSION: 1. Severe compression deformity of L1 vertebral body, likely chronic. However,this does results in moderate spinal canal stenosis. 2. If symptoms persist, further evaluation with MRI is recommended. Reading Location: [facility] Thoracic Spine CT 03/23/25 18:12 IMPRESSION: 1. No acute fracture. 2. Moderate to severe compression deformity of T9 vertebral body with lucency along the anterior aspect, acute fracture can not be excluded. Reading Location: [facility] Chest X-Ray 03/23/25 18:20 IMPRESSION: No Acute Findings. Reading Location: [facility] Discharge Plan Disposition Disposition: Acute Care Hospital [facility] Discharge Date/Time: 03/23/25 22:13 What to do if you have Problems For any increased pain, shortness of breath, bleeding, nausea or vomiting, chestpain, or any unexpected problems, contact your Primary Care Provider. Call [facility] ([phone]) or report to the closest Emergency Room. Call 911 if necessary. 03/23/252326 <Electronically signed by Marco Camacho DO> Cosigner Signature (if applicable): CC: LOIS Brand ~ Signed [facility] Work Phone: [phone]) 417-989507-23-2025 History and physical note Author Merry Pham [facility] Note Date/Time March 23, 2025 9:49 pm [facility] Medical Records Department [address] [place] [address] H&P Exam - Hospitalist 03/23/252008 MR#: [id number] Acct: [id number] Name: NANCY SY Rep #:[id number] : 1945 80 From: Merry Pham MD PCP: Katherine Brand, HOUSEKEEPING ROOM INSPECTOR-C Status:ADM I N Location: [place] [address] HPI - General General Date of Admission: 03/23/25 Date of Service: 03/23/25 Chief Complaint: Acute on Chronic back pain, increased BL LE edema, chronic debility HPI Narrative The patient is a 80 y/o M w/ PMHx: Possible Chronic macrocytic anemia, CKD stageII per GFR trending, OA, Allergic rhinitis, Former tobacco use who presents to [facility] ED on 03/23/2025 with 2 weeks of progressively worsening swelling to bilateral lower extremities started on a recent diuretic pill 2 weeks previous using it for 3 days however it did not improve his symptoms so potentially discontinued with difficulty walking, worsened back discomfort and balance issues made worse by his recent increased swelling with no specific dyspnea or any recent cough, fevers or chills prompting ED evaluation he notes that his most recent fall was within the last 2 to 3 weeks. He states that his back discomfort is primarily worsened with any activity or standing attempts. He hasbeen much more sessile since this discomfort. When he does attempt any kind of ambulation his pain is severe, 10 out of 10 with significant debility. He has been attempting to use assistive devices. He denies any specific increased paresthesias above his baseline. He denies any urinary or stool incontinence. Workup in the ED included T98.4, heart rate 102, BP 134 bradycardia, respiratoryrate 16, 94% room air with most recent repeat vital signs heart rate 97, BP 165/84, respiratory rate 16, 98% on room air, CBC with WC 8.0, hemoglobin 12.6, MCV 94.9, platelet 232 with lymphopenia, CMP with BUN/creatinine 15/0.84, GFR 89, troponin initial 33 with repeat delta pending, NT proBNP II 417, bilateral lower extremity duplex ultrasounds negative, CT brain with no acute intracranialabnormality with mild global parenchymal atrophy and chronic microvascular ischemia, CT of the lumbar spine with severe compression deformity L1 vertebral body likely chronic however it does result in moderate spinal canal stenosis, CTof the thoracic spine with no acute fracture, moderate to severe compression deformity T9 vertebral body with lucency along the anterior aspect with inability to rule out an acute fracture, chest x-ray with no acute findings. [facility] Medical History CKD (chronic kidney disease), stage II Former tobacco use BPH (benign prostatic hyperplasia) HLD (hyperlipidemia) Chronic anemia Pancreatitis Osteoporosis Osteopenia Kidney stones Arthritis Allergies Hemorrhoids Hypertension Home Medications ?Medication ?Instructions ?Recorded ?Last Taken ?Type carvedilol 3.125 mg tablet 3.125 mg PO BID 07/09/23 History amlodipine 10 mg tablet 10 mg PO QDAY 07/26/2403/22 History buspirone 15 mg tablet 15 mg PO BID 07/26/24 History calcium carbonate 1,000 mg PO QDAY 07/26/24 History cyanocobalamin (vitamin B-12) 1,000 mcg PO QDAY 03/22/25 History 1,000 mcg capsule losartan 25 mg tablet 100 mg PO DAILY 07/26/24 History melatonin 5 mg capsule mg PO 07/26/24 03/22/25 Hist ory paroxetine HCl 40 mg tablet 40 mg PO QDAY 07/26/24 History tamsulosin 0.4 mg capsule (Flomax) 0.4 mg PO QDAY 07/0303/22/25 History cholecalciferol (vitamin D3) 1,250 1,250 mcg PO QWEEK 09/23/24 Unknown History mcg (50,000 unit) capsule acetaminophen 325 mg tablet 650 mg PO Q6H PRN pain 03/23/25 History (Tylenol) Allergy/AdvReac Type Severity Reaction Status Date / Time No Known Allergies Allergy Verified 03/23/25 16:56 Family History (Updated 03/23/25 @ 21:[address] Merry Pham MD) Father Alcoholism Brother Depression Suicide attempt Grandmother Parkinson disease Sister Osteoporosis Mother Non-alcoholic cirrhosis Surgical History S/P tonsillectomy S/P appendectomy Hx of cholecystectomy Social History (Updated 03/23/25 @ 21:[address] Merry Pham MD) household members: spouse Smoking Status: Former smoker how long ago did patient quit smoking: Quit pipe smoking 15 yrs prior, smoked since 14 ~20 refill/day. alcohol intake: never substance use type: does not use ROS ROS Narrative Admission Review of Systems: CONSTITUTIONAL: No weight loss, fever, chills, weakness or fatigue. HEENT: Eyes: No visual loss, blurred vision, double vision or yellow sclerae. Ears, Nose, Throat: No hearing loss, sneezing, congestion, runny nose or sore throat. SKIN: No rash or itching, lesions, wounds except + occasional stage ecchymoses, abrasion, venous stasis skin changes. CARDIOVASCULAR: + Worsened bilateral lower extremity edema. No chest pain, chest pressure or chest discomfort, palpitations, orthopnea, syncopal events. RESPIRATORY: No shortness of breath, cough or sputum, wheezing, hemoptysis. GASTROINTESTINAL: No anorexia, nausea, vomiting or diarrhea, abdominal pain, melena, BRBPR. GENITOURINARY: + BPH with obstructive pathology. No dysuria, frequency, urgencyor acute retention. NEUROLOGICAL: + Gait debility, chronic neuropathy, general debility with falls. No headache, dizziness, syncope, paralysis, ataxia, focal weakness, change in bowel or bladder control, seizure. MUSCULOSKELETAL: + muscle, back pain, joint pain or stiffness. HEMATOLOGIC: + Possible chronic anemia, easy bleeding/bruising. LYMPHATICS: No enlarged nodes. No history of splenectomy. PSYCHIATRIC: + History of anxiety and depression. ENDOCRINOLOGIC: No reports of sweating, cold or heat intolerance. No polyuria orpolydipsia. ALLERGIES: No history of asthma, hives, eczema or rhinitis. Vital Signs Vital Signs Vital Signs: 03/23/25 15:59 03/23/25 16:56 03/23/25 18:00 Temperature 98.4 F Temperature Source Oral Pulse Rate 102 H 94 Respiratory Rate 16 18 Respiratory Effort Normal Respiratory Pattern Normal Blood Pressure 134/80 H 149/80 H Blood Pressure Mean 98 103 Pulse Ox 94 95 Oxygen Delivery Method Room Air Room Air 03/23/25 20:00 03/23/25 20:01 Temperature 97.9 F Temperature Source Pulse Rate 97 97 Respiratory Rate 20 H 16 Respiratory Effort Respiratory Pattern Blood Pressure 165/84 H 165/84 H Blood Pressure Mean 111 111 Pulse Ox 95 98 Oxygen Delivery Method Room Air Weight Weight: 185 lb 13.595 oz Body Mass Index (BMI) 27.4 Physical Exam Narrative Physical Examination: General: Awake, alert, oriented x 3 and cooperative, hard of hearing, seated upright in ED bed in no apparent distress, notes currently at rest his back is not hurting but with any movement attempts 10 out of 10 severe. Skin: Normal color, normal turgor, no icterus, no cyanosis except occasional stage ecchymoses, abrasion, bilateral lower extremity venous stasis skin changes. HEENT: AT/NC, EOMI, PERRLA, MMM, no carotid bruits or overt marked JVD noted. Lungs: Mildly diminished, greater bases, appropriate effort, no appreciated rales, ronchi or wheezing. Heart: Regular rate and rhythm; no gallop, rub audible. Abdomen: Soft, overweight, NTTP, ND, mildly hyperactive BS, no HSM. Extremities: No cyanosis, no clubbing, significant pedal to knee bilateral 3+ pitting edema. Neurological: Patient awake, alert, oriented as noted, hard of hearing cognitivefunction intact; pupils equally reactive to light and accommodation, cranial nerves grossly normal, moving all 4 extremities, no obvious specific focal deficits, strength moderately to severely globally decreased. Psychiatric: Affect appears mildly flat, fatigued, no acute evidence of depressive or anxiety feelings but does have underlying history. Results Lab / Micro Data 03/23/25 17:41 03/23/25 17:41 Labs: Laboratory Results - last 24 hr 03/23/25 17:41: WBC 8.0, RBC 3.92 L, Hgb 12.6 L, Hct 37.2 L, MCV 94.9 H, MCH 32.1 H, MCHC 33.9, RDW Std Deviation 47.0 H, RDW Coeff of Stefanie 13.5, Plt Count 232, MPV 8.9, Immature Gran % (Auto) 0.500, Neut % (Auto) 75.3 H, Lymph % (Auto)10.3 L, Elliott % (Auto) 10.1 H, Eos % (Auto) 3.3, Baso % (Auto) 0.5, Absolute Neuts (auto) 6.0, Absolute Lymphs (auto) 0.82 L, Nucleated RBC % 0, Sodium 144, Potassium 3.8, Chloride 105, Carbon Dioxide 28.5, Anion Gap 10, BUN 15, Creatinine 0.84, Estim Creat Clear Calc 71.31, Est GFR (MDRD) Non-Af 89, BUN/Creatinine Ratio 17.4, Glucose 95, Calcium 9.2, Total Bilirubin 0.29, AST 16, ALT 9, Alkaline Phosphatase 112, Troponin T High Sens 33 H, NT pro BNP II 417, Total Protein 6.2, Albumin 3.8, Globulin 2.4, Albumin/Globulin Ratio 1.5, Lipase 21 Imaging Radiology Impression Venous Duplex 03/23/25 17:33 IMPRESSION: No DVT. Reading Location: [facility] Brain CT 03/23/25 18:12 IMPRESSION: No acute intracranial abnormality. Reading Location: [facility] Lumbar Spine CT 03/23/25 18:12 IMPRESSION: 1. Severe compression deformity of L1 vertebral body, likely chronic. However,this does results in moderate spinal canal stenosis. 2. If symptoms persist, further evaluation with MRI is recommended. Reading Location: [facility] Thoracic Spine CT 03/23/25 18:12 IMPRESSION: 1. No acute fracture. 2. Moderate to severe compression deformity of T9 vertebral body with lucency along the anterior aspect, acute fracture can not be excluded. Reading Location: [facility] Chest X-Ray 03/23/25 18:20 IMPRESSION: No Acute Findings. Reading Location: [facility] Assessment & Plan Assessment/Plan (1) Acute on chronic back pain: PLAN: Plan The patient is a 80 y/o M w/ PMHx: Possible Chronic macrocytic anemia, CKD stageII per GFR trending, OA, Allergic rhinitis, Former tobacco use who presents to [facility] ED on 03/23/2025 with 2 weeks of progressively worsening swelling to bilateral lower extremities started on a recent diuretic pill 2 weeks previous using it for 3 days however it did not improve his symptoms so potentially discontinued with difficulty walking, worsened back discomfort and balance issues made worse by his recent increased swelling with no specific dyspnea or any recent cough, fevers or chills prompting ED evaluation he notes that his most recent fall was within the last 2 to 3 weeks. #1. Acute significant bilateral lower extremity swelling of unclear etiology, anasarca: Will admit to PCU given mildly elevated troponin concurrently as noted, will maintain on fall precautions, will initiate IV judicious pulse dose Lasix regimen to assist with reduction of swelling, will place snug nikki wraps ofbilateral lower extremity elevation, duplex ultrasound of note negative, echocardiogram requested, will continue treatment and evaluation as noted of also acute on chronic back pain, magnesium level requested, TSH level requested,FLP in AM. Will maintain on baby aspirin in the interim. #2. Acute on chronic back pain, debility with severe compression deformity L1 vertebral body likely chronic resulting in moderate spinal canal stenosis in addition to moderate to severe compression deformity T9 vertebral body with lucency along the anterior aspect potentially secondary to an acute fracture made more difficult by #1: Complicates presentation especially given lower extremity swelling, will maintain on fall precautions, offloading, lidocaine patches, judicious low-dose IV Toradol scheduled x 5 doses, low-dose 3 times daily 100 mg gabapentin, low-dose as needed tizanidine, breakthrough oral pain medication only as needed, PT/OT/case meds consulted for discharge planning. Will request MRI of the thoracic and lumbar spine. Will consult orthospine. #3. Chronic debility, imbalance, admit FTT: Noted to be ongoing for several weeks, likely secondary to chronic findings of the back as noted #2 CT of the brain with mild global parenchymal atrophy, chronic microvascular ischemic changes with no evidence of any acute hemorrhage or infarct and at this point would have expected findings, unfortunately may be a component of the significant parenchymal atrophy component, will as noted continue treatment #1, #2, continue PT/OT/case management consultation for discharge planning. #4. Mildly elevated troponin of unclear significance: Initial troponin 33, repeat delta pending, will maintain on research technician be cautious, will obtain magnesium level, FLP in AM, maintain on low-dose baby aspirin in the interim, if enzymes rise notably would obtain echocardiogram. #5. Chronic Kidney Disease Stage II per GFR trending although not significant amount of data: Admission BUN/Cr 15/0.4, GFR 89, baseline renal function 0.8-0.9only 2 points of data however, repeat BMP in AM. #6. Hypertension: Continue home regimen including Coreg, losartan, amlodipine, IV Lasix as noted, PRN hydralazine. #7. Hyperlipidemia: Per current list not on statin therapy, FLP in AM. #8. Anxiety and depression: Will continue patient home buspirone as well as paroxetine home regimen, encourage continued outpatient follow-up with PCP as previously arranged. #9. BPH with obstructive pathology: Will continue patient on Flomax regimen, monitor for retention. #10. Former tobacco use: Encourage continued tobacco cessation. #11. DVT prophylaxis: Lovenox. #12. CODE status: Patient HCPOA and living will are not in place but his who is present would be his medical decision-maker if necessary. Discussed CODEstatus at length including difference between FULL code, DNR-CCA and DNR-CC status. Following discussions about the differences in these status, requested Full Code status. Advanced Care Planning Face to Face Time: 16 minutes. Charges/Coding Visit Charges Inpatient E&M: 31682 Init Hosp L3 Procedures Hospitalists Procedures: 93861 Advncd Care Plan 30 Min 03/23/259 <Electronically signed by Merry Pham MD> Cosigner Signature (if applicable): CC: LOIS Brand; Dr. Merry Pham MD~ Signed [facility] Work Phone: 1(626) 874-278807-23-2025 Discharge summary [facility] Medical Records Department [address] [place] [address] Emergency Department Summary 03/23/25 MR#: [id number] Acct: [id number] Name: NANCY SY Rep #:[id number] : 1945 80 From: Marco Askew PCP: LOIS Resendiz Status:ADM I N Location: [place] [address] HPI History of Present Illness Chief Complaint: Edema PFSH PFS Medical History CKD (chronic kidney disease), stage II Former tobacco use BPH (benign prostatic hyperplasia) HLD (hyperlipidemia) Chronic anemia Pancreatitis Osteoporosis Osteopenia Kidney stones Arthritis Allergies Hemorrhoids Hypertension Home Medications ?Medication ?Instructions ?Recorded ?Last Taken ?Type carvedilol 3.125 mg tablet 3.125 mg PO BID 07/09/23 History amlodipine 10 mg tablet 10 mg PO QDAY 07/26/2403/22 History buspirone 15 mg tablet 15 mg PO BID 07/26/24 History calcium carbonate 1,000 mg PO QDAY 07/26/24 History cyanocobalamin (vitamin B-12) 1,000 mcg PO QDAY 03/22/25 History 1,000 mcg capsule losartan 25 mg tablet 100 mg PO DAILY 07/26/24 History melatonin 5 mg capsule mg PO 07/26/24 03/22/25 Hist ory paroxetine HCl 40 mg tablet 40 mg PO QDAY 07/26/24 History tamsulosin 0.4 mg capsule (Flomax) 0.4 mg PO QDAY 07/0303/22/25 History cholecalciferol (vitamin D3) 1,250 1,250 mcg PO QWEEK 09/23/24 Unknown History mcg (50,000 unit) capsule acetaminophen 325 mg tablet 650 mg PO Q6H PRN pain 03/23/25 History (Tylenol) Allergy/AdvReac Type Severity Reaction Status Date / Time No Known Allergies Allergy Verified 03/23/25 16:56 Family History Father Alcoholism Brother Depression Suicide attempt Grandmother Parkinson disease Sister Osteoporosis Mother Non-alcoholic cirrhosis Surgical History S/P tonsillectomy S/P appendectomy Hx of cholecystectomy Social History household members: spouse Smoking Status: Former smoker how long ago did patient quit smoking: Quit pipe smoking 15 yrs prior, smoked since 14 ~20 refill/day. alcohol intake: never substance use type: does not use EXAM Physical Exam Const Vital Signs: 03/23/25 15:59 03/23/25 16:56 03/23/25 18:00 Temperature 98.4 F Temperature Source Oral Pulse Rate 102 H 94 Respiratory Rate 16 18 Respiratory Effort Normal Respiratory Pattern Normal Blood Pressure 134/80 H 149/80 H Blood Pressure Mean 98 103 Pulse Ox 94 95 Oxygen Delivery Method Room Air Room Air 03/23/25 19:24 03/23/25 19:30 03/23/25 19:45 Temperature Temperature Source Pulse Rate 93 93 Respiratory Rate 19 H 21 H Respiratory Effort Respiratory Pattern Blood Pressure 148/80 H Blood Pressure Mean 100 Pulse Ox 94 95 Oxygen Delivery Method 03/23/25 20:00 03/23/25 20:00 03/23/25 20:01 Temperature 97.9 F Temperature Source Pulse Rate 97 97 97 Respiratory Rate 20 H 19 H 16 Respiratory Effort Respiratory Pattern Blood Pressure 165/84 H 165/84 H 165/84 H Blood Pressure Mean 111 105 111 Pulse Ox 95 92 98 Oxygen Delivery Method Room Air MDM MDM MDM Narrative Medical decision making narrative: HISTORY OF PRESENT ILLNESS: Chief complaint: Lower extremity swelling, difficulty ambulating 80-year-old male history of osteoporosis, hypertension, presents with a myriad complaints. States last 2 weeks has had worsening swelling in bilateral lower extremities. His daughter and state he started a water pill 2 weeks ago and use it for 3 days but did not relieve his symptoms. Patient is also concerned about difficulty walking and balance issues. Also concerned about chronic back pain. He states balance issues have made been made worse by swelling. He notes shortness of breath and dyspnea on exertion. Denies cough fever chills. Denies any bleeding diathesis. Denies any palpitations. Denies any history of liver dysfunction, alcohol abuse. Denies decreased urination or history of kidney dysfunction. In terms of balance issues his last fall was 1 month ago and has had no imaging of his back despite recent hospitalization. Patient denies active cancer, being bedridden for greater than 3 days, denies unilateral leg swelling, denies any varicose veins, denies any calf tenderness, denies tenderness along deep venous system. Denies major surgery within 12 weeks, recent paralysis, previous DVT. Of note the patient notes a fall approximate 1 month ago which he injured his back. He notes he has a history ofcompression fractures in the back and this was never evaluated despite his recent hospitalization because his pain was thought to be due to already known compression fractures. REVIEW OF SYSTEMS: Pertinent positives: Leg swelling, shortness of breath, back pain, balance difficulties Pertinent negatives: As per HPI PHYSICAL EXAM: Nursing triage notes reviewed, Vital signs reviewed Constitutional: Elderly, chronically ill-appearing male HENT: MMM Eyes: Pupils equal round and reactive to light, Extraocular muscles intact Neck: No stridor, no JVD, full neck ROM Lungs: Clear to auscultation, No wheezing or rales. No increased work of breathing, no conversational dyspnea, no accessory muscle use, no nasal flaring. No respiratory distress noted Heart: Regular rate and rhythm, No murmurs, No rubs and No gallops, 2+ distal pulses (radial, femoral, posterior tibial) in all extremities Abdomen: Soft, there is no tenderness, rigidity, rebound or guarding, no obviousperitoneal signs, no palpable pulsatile abdominal masses, no auscultated abdominal bruit : No CVAT Back: TTP over thoracolumbar junction Extremities: 3+ pitting edema bilaterally, no calf tenderness, no rashes or signs of infection. Compartments are soft Neuro: No new focal neurological deficits, cranial nerves II through XII intact,5/5 strength in allpresent extremities. Intact sensation to light touch in all present extremities, 2+ reflexes bilateral patella tendons. Skin: Skin pallor noted MEDICAL DECISION MAKING: Chief Complaint: please see HPI External records reviewed: Reviewed prior outpatient visits, reviewed medications Factors affecting care: As per HPI Social determinants of health: Elderly History obtained from others: Family Consults: Hospitalist (Dr. Pham) recommended inpatient admission. [facility] Narrative: The patient was initially hemodynamically stable, afebrile and nontoxic- appearing. Exam without focal neurologic deficit. No ataxia, truncal ataxia. Gait was short and shuffling but not ataxic. Cardiopulmonary exam unremarkable for rales or signs of respiratory distress. Lower extremities with symmetric 3+pitting edema bilaterally. I considered the following differential diagnosis: ICH, intracranial mass, CVA, bony injury to thoracic lumbar spine, ACS, arrhythmia, CHF, liver failure, kidney failure, venous insufficiency I obtained a broad lab and imaging workup to further determine if the patient was suffering from a life-threatening etiology. ALL IMAGES (IF OBTAINED) HAVE BEEN PERSONALLY REVIEWED AND INTERPRETED BY MYSELF. Chest x-ray was read and reviewed personally myself showed no evidence of obvious pneumonia, pneumothorax or heart failure. Radiologist agreed my interpretation CT scan of the brain shows no evidence of ICH CT scan of the thoracic spine is remarkable for T9 compression fracture CT scan of the lumbar spine compression fracture L1 vertebra Bilateral DVT ultrasounds negative for acute DVT CBC without leukocytosis, mild anemia, no thrombocytopenia BMP without significant electrolyte abnormalities, no acute kidney injury, LFTs without evidence ofhepatobiliary obstruction Initial troponin negative. Delta troponin remains negative, third troponin remains negative effectively ruling out ACS The synthesis of the patient's history, physical exam, labs and images suggest venous insufficiencycausing lower extremity edema. Chronic compression fractures of the T and L-spine that are causing immobility and difficulty ambulating. Given his advanced age and his difficulty performing ADLs he will require admission to the hospital for further evaluation, management and possible placement. Discussed with hospitalist Dr. Pham The patient and/or family, caregivers express understanding. The patient and/orfamily, caregivers agrees with the plan. Shared decision making: I will have a discussion with the patient and or visitors regarding risk/benefits of further testing or admission. They will be made aware of of the risk/benefits inherent in this decision they will be given the opportunity to voice understanding. Total critical care time today provided was at least 0 minutes. This excludes separately billable procedures. Critical care time (if documented) is secondary to the patient having high probability ofclinically significant/life threatening deterioration in the patient's condition which required my urgent intervention. Impression: 1. Bilateral lower extremity edema 2. Gait dysfunction 3. T9 compression fracture 4. L1 compression fracture Dispo: Admit This note was generated with [employer] dictation software. It may contain incorrectwords, spelling, and punctuation that were not noted in review of the chart prior to signing. Lab Data Labs: Laboratory Results - last 24 hr 03/23/25 03/23/25 17:41 19:41 WBC 8.0 RBC 3.92 L Hgb 12.6 L Hct 37.2 L MCV 94.9 H MCH 32.1 H MCHC 33.9 RDW Std Deviation 47.0 H RDW Coeff of Stefanie 13.5 Plt Count 232 MPV 8.9 Immature Gran % (Auto) 0.500 Neut % (Auto) 75.3 H Lymph % (Auto) 10.3 L Elliott % (Auto) 10.1 H Eos % (Auto) 3.3 Baso % (Auto) 0.5 Absolute Neuts (auto) 6.0 Absolute Lymphs (auto) 0.82 L Nucleated RBC % 0 Sodium 144 Potassium 3.8 Chloride 105 Carbon Dioxide 28.5 Anion Gap 10 BUN 15 Creatinine 0.84 Estim Creat Clear Calc 71.31 Est GFR (MDRD) Non-Af 89 BUN/Creatinine Ratio 17.4 Glucose 95 Calcium 9.2 Magnesium 1.6 Total Bilirubin 0.29 AST 16 ALT 9 Alkaline Phosphatase 112 Troponin T High Sens 33 H Troponin T Hi Sens 2 Hr 27 H NT pro BNP II 417 Total Protein 6.2 Albumin 3.8 Globulin 2.4 Albumin/Globulin Ratio 1.5 Lipase 21 Radiography Diagnostic Testing: Clinical Impression(s) from Imaging Studies Venous Duplex 03/23/25 17:33 IMPRESSION: No DVT. Reading Location: [facility] Brain CT 03/23/25 18:12 IMPRESSION: No acute intracranial abnormality. Reading Location: [facility] Lumbar Spine CT 03/23/25 18:12 IMPRESSION: 1. Severe compression deformity of L1 vertebral body, likely chronic. However,this does results in moderate spinal canal stenosis. 2. If symptoms persist, further evaluation with MRI is recommended. Reading Location: [facility] Thoracic Spine CT 03/23/25 18:12 IMPRESSION: 1. No acute fracture. 2. Moderate to severe compression deformity of T9 vertebral body with lucency along the anterior aspect, acute fracture can not be excluded. Reading Location: [facility] Chest X-Ray 03/23/25 18:20 IMPRESSION: No Acute Findings. Reading Location: [facility] Discharge Plan Disposition Disposition: Acute Care Hospital [facility] Discharge Date/Time: 03/23/25 22:13 What to do if you have Problems For any increased pain, shortness of breath, bleeding, nausea or vomiting, chestpain, or any unexpected problems, contact your Primary Care Provider. Call [facility] ([phone]) or report tothe closest Emergency Room. Call 911 if necessary. 03/23/252326 Cosigner Signature (if applicable): CC: LOIS Brand ~ Signed [facility]07-23-2025 Evaluation note* Diagnosis Onset Date Resolution Status Admit Date Acute on chronic back pain acute March 23, 2025 8:15pm History of kyphoplasty acute 2024 8:15pm Lumbar compression fracture acute March 23, 2025 8:15pm Thoracic compression fracture acute March 23, 2025 8:15pm Thoracolumbar kyphosis acute 2024 8:15pm Osteoporosis chronic March 23, 8:15pm [facility] Work Phone: [phone]) 333-280007-23-2025 History and physical note Author Merry Pham [facility] Note Date/Time March 23, 2025 9:49 pm [facility] Medical Records Department [address] [place] [id number] H&P Exam - Hospitalist 03/23/252008 MR#: [id number] Acct: [id number] Name: NANCY SY Rep #:[id number] : 1945 [id number] From: Merry Pham MD PCP: LOIS Resendiz Status:ADM I N Location: [place] [address] HPI - General General Date of Admission: 03/23/25 Date of Service: 03/23/25 Chief Complaint: Acute on Chronic back pain, increased BL LE edema, chronic debility HPI Narrative The patient is a 80 y/o M w/ PMHx: Possible Chronic macrocytic anemia, CKD stageII per GFR trending, OA, Allergic rhinitis, Former tobacco use who presents to [facility] ED on 03/23/2025 with 2 weeks of progressively worsening swelling to bilateral lower extremities started on a recent diuretic pill 2 weeks previous using it for 3 days however it did not improve his symptoms so potentially discontinued with difficulty walking, worsened back discomfort and balance issues made worse by his recent increased swelling with no specific dyspnea or any recent cough, fevers or chills prompting ED evaluation he notes that his most recent fall was within the last 2 to 3 weeks. He states that his back discomfort is primarily worsened with any activity or standing attempts. He hasbeen much more sessile since this discomfort. When he does attempt any kind of ambulation his pain is severe, 10 out of 10 with significant debility. He has been attempting to use assistive devices. He denies any specific increased paresthesias above his baseline. He denies any urinary or stool incontinence. Workup in the ED included T98.4, heart rate 102, BP 134 bradycardia, respiratoryrate 16, 94% room air with most recent repeat vital signs heart rate 97, BP 165/84, respiratory rate 16, 98% on room air, CBC with WC 8.0, hemoglobin 12.6, MCV 94.9, platelet 232 with lymphopenia, CMP with BUN/creatinine 15/0.84, GFR 89, troponin initial 33 with repeat delta pending, NT proBNP II 417, bilateral lower extremity duplex ultrasounds negative, CT brain with no acute intracranialabnormality with mild global parenchymal atrophy and chronic microvascular ischemia, CT of the lumbar spine with severe compression deformity L1 vertebral body likely chronic however it does result in moderate spinal canal stenosis, CTof the thoracic spine with no acute fracture, moderate to severe compression deformity T9 vertebral body with lucency along the anterior aspect with inability to rule out an acute fracture, chest x-ray with no acute findings. [facility] Medical History CKD (chronic kidney disease), stage II Former tobacco use BPH (benign prostatic hyperplasia) HLD (hyperlipidemia) Chronic anemia Pancreatitis Osteoporosis Osteopenia Kidney stones Arthritis Allergies Hemorrhoids Hypertension Home Medications ?Medication ?Instructions ?Recorded ?Last Taken ?Type carvedilol 3.125 mg tablet 3.125 mg PO BID 07/09/23 History amlodipine 10 mg tablet 10 mg PO QDAY 07/26/2403/22 History buspirone 15 mg tablet 15 mg PO BID 07/26/24 History calcium carbonate 1,000 mg PO QDAY 07/26/24 History cyanocobalamin (vitamin B-12) 1,000 mcg PO QDAY 03/22/25 History 1,000 mcg capsule losartan 25 mg tablet 100 mg PO DAILY 07/26/24 History melatonin 5 mg capsule mg PO 07/26/24 03/22/25 Hist ory paroxetine HCl 40 mg tablet 40 mg PO QDAY 07/26/24 History tamsulosin 0.4 mg capsule (Flomax) 0.4 mg PO QDAY 07/0303/22/25 History cholecalciferol (vitamin D3) 1,250 1,250 mcg PO QWEEK 09/23/24 Unknown History mcg (50,000 unit) capsule acetaminophen 325 mg tablet 650 mg PO Q6H PRN pain 03/23/25 History (Tylenol) Allergy/AdvReac Type Severity Reaction Status Date / Time No Known Allergies Allergy Verified 03/23/25 16:56 Family History (Updated 03/23/25 @ 21:[address] Merry Pham MD) Father Alcoholism Brother Depression Suicide attempt Grandmother Parkinson disease Sister Osteoporosis Mother Non-alcoholic cirrhosis Surgical History S/P tonsillectomy S/P appendectomy Hx of cholecystectomy Social History (Updated 03/23/25 @ 21:[address] Merry Pham MD) household members: spouse Smoking Status: Former smoker how long ago did patient quit smoking: Quit pipe smoking 15 yrs prior, smoked since 14 ~20 refill/day. alcohol intake: never substance use type: does not use ROS ROS Narrative Admission Review of Systems: CONSTITUTIONAL: No weight loss, fever, chills, weakness or fatigue. HEENT: Eyes: No visual loss, blurred vision, double vision or yellow sclerae. Ears, Nose, Throat: No hearing loss, sneezing, congestion, runny nose or sore throat. SKIN: No rash or itching, lesions, wounds except + occasional stage ecchymoses, abrasion, venous stasis skin changes. CARDIOVASCULAR: + Worsened bilateral lower extremity edema. No chest pain, chest pressure or chest discomfort, palpitations, orthopnea, syncopal events. RESPIRATORY: No shortness of breath, cough or sputum, wheezing, hemoptysis. GASTROINTESTINAL: No anorexia, nausea, vomiting or diarrhea, abdominal pain, melena, BRBPR. GENITOURINARY: + BPH with obstructive pathology. No dysuria, frequency, urgencyor acute retention. NEUROLOGICAL: + Gait debility, chronic neuropathy, general debility with falls. No headache, dizziness, syncope, paralysis, ataxia, focal weakness, change in bowel or bladder control, seizure. MUSCULOSKELETAL: + muscle, back pain, joint pain or stiffness. HEMATOLOGIC: + Possible chronic anemia, easy bleeding/bruising. LYMPHATICS: No enlarged nodes. No history of splenectomy. PSYCHIATRIC: + History of anxiety and depression. ENDOCRINOLOGIC: No reports of sweating, cold or heat intolerance. No polyuria orpolydipsia. ALLERGIES: No history of asthma, hives, eczema or rhinitis. Vital Signs Vital Signs Vital Signs: 03/23/25 15:59 03/23/25 16:56 03/23/25 18:00 Temperature 98.4 F Temperature Source Oral Pulse Rate 102 H 94 Respiratory Rate 16 18 Respiratory Effort Normal Respiratory Pattern Normal Blood Pressure 134/80 H 149/80 H Blood Pressure Mean 98 103 Pulse Ox 94 95 Oxygen Delivery Method Room Air Room Air 03/23/25 20:00 03/23/25 20:01 Temperature 97.9 F Temperature Source Pulse Rate 97 97 Respiratory Rate 20 H 16 Respiratory Effort Respiratory Pattern Blood Pressure 165/84 H 165/84 H Blood Pressure Mean 111 111 Pulse Ox 95 98 Oxygen Delivery Method Room Air Weight Weight: 185 lb 13.595 oz Body Mass Index (BMI) 27.4 Physical Exam Narrative Physical Examination: General: Awake, alert, oriented x 3 and cooperative, hard of hearing, seated upright in ED bed in no apparent distress, notes currently at rest his back is not hurting but with any movement attempts 10 out of 10 severe. Skin: Normal color, normal turgor, no icterus, no cyanosis except occasional stage ecchymoses, abrasion, bilateral lower extremity venous stasis skin changes. HEENT: AT/NC, EOMI, PERRLA, MMM, no carotid bruits or overt marked JVD noted. Lungs: Mildly diminished, greater bases, appropriate effort, no appreciated rales, ronchi or wheezing. Heart: Regular rate and rhythm; no gallop, rub audible. Abdomen: Soft, overweight, NTTP, ND, mildly hyperactive BS, no HSM. Extremities: No cyanosis, no clubbing, significant pedal to knee bilateral 3+ pitting edema. Neurological: Patient awake, alert, oriented as noted, hard of hearing cognitivefunction intact; pupils equally reactive to light and accommodation, cranial nerves grossly normal, moving all 4 extremities, no obvious specific focal deficits, strength moderately to severely globally decreased. Psychiatric: Affect appears mildly flat, fatigued, no acute evidence of depressive or anxiety feelings but does have underlying history. Results Lab / Micro Data 03/23/25 17:41 03/23/25 17:41 Labs: Laboratory Results - last 24 hr 03/23/25 17:41: WBC 8.0, RBC 3.92 L, Hgb 12.6 L, Hct 37.2 L, MCV 94.9 H, MCH 32.1 H, MCHC 33.9, RDW Std Deviation 47.0 H, RDW Coeff of Stefanie 13.5, Plt Count 232, MPV 8.9, Immature Gran % (Auto) 0.500, Neut % (Auto) 75.3 H, Lymph % (Auto)10.3 L, Elliott % (Auto) 10.1 H, Eos % (Auto) 3.3, Baso % (Auto) 0.5, Absolute Neuts (auto) 6.0, Absolute Lymphs (auto) 0.82 L, Nucleated RBC % 0, Sodium 144, Potassium 3.8, Chloride 105, Carbon Dioxide 28.5, Anion Gap 10, BUN 15, Creatinine 0.84, Estim Creat Clear Calc 71.31, Est GFR (MDRD) Non-Af 89, BUN/Creatinine Ratio 17.4, Glucose 95, Calcium 9.2, Total Bilirubin 0.29, AST 16, ALT 9, Alkaline Phosphatase 112, Troponin T High Sens 33 H, NT pro BNP II 417, Total Protein 6.2, Albumin 3.8, Globulin 2.4, Albumin/Globulin Ratio 1.5, Lipase 21 Imaging Radiology Impression Venous Duplex 03/23/25 17:33 IMPRESSION: No DVT. Reading Location: [facility] Brain CT 03/23/25 18:12 IMPRESSION: No acute intracranial abnormality. Reading Location: [facility] Lumbar Spine CT 03/23/25 18:12 IMPRESSION: 1. Severe compression deformity of L1 vertebral body, likely chronic. However,this does results in moderate spinal canal stenosis. 2. If symptoms persist, further evaluation with MRI is recommended. Reading Location: [facility] Thoracic Spine CT 03/23/25 18:12 IMPRESSION: 1. No acute fracture. 2. Moderate to severe compression deformity of T9 vertebral body with lucency along the anterior aspect, acute fracture can not be excluded. Reading Location: [facility] Chest X-Ray 03/23/25 18:20 IMPRESSION: No Acute Findings. Reading Location: [facility] Assessment & Plan Assessment/Plan (1) Acute on chronic back pain: PLAN: Plan The patient is a 80 y/o M w/ PMHx: Possible Chronic macrocytic anemia, CKD stageII per GFR trending, OA, Allergic rhinitis, Former tobacco use who presents to [facility] ED on 03/23/2025 with 2 weeks of progressively worsening swelling to bilateral lower extremities started on a recent diuretic pill 2 weeks previous using it for 3 days however it did not improve his symptoms so potentially discontinued with difficulty walking, worsened back discomfort and balance issues made worse by his recent increased swelling with no specific dyspnea or any recent cough, fevers or chills prompting ED evaluation he notes that his most recent fall was within the last 2 to 3 weeks. #1. Acute significant bilateral lower extremity swelling of unclear etiology, anasarca: Will admit to PCU given mildly elevated troponin concurrently as noted, will maintain on fall precautions, will initiate IV judicious pulse dose Lasix regimen to assist with reduction of swelling, will place snug nikki wraps ofbilateral lower extremity elevation, duplex ultrasound of note negative, echocardiogram requested, will continue treatment and evaluation as noted of also acute on chronic back pain, magnesium level requested, TSH level requested,FLP in AM. Will maintain on baby aspirin in the interim. #2. Acute on chronic back pain, debility with severe compression deformity L1 vertebral body likely chronic resulting in moderate spinal canal stenosis in addition to moderate to severe compression deformity T9 vertebral body with lucency along the anterior aspect potentially secondary to an acute fracture made more difficult by #1: Complicates presentation especially given lower extremity swelling, will maintain on fall precautions, offloading, lidocaine patches, judicious low-dose IV Toradol scheduled x 5 doses, low-dose 3 times daily 100 mg gabapentin, low-dose as needed tizanidine, breakthrough oral pain medication only as needed, PT/OT/case meds consulted for discharge planning. Will request MRI of the thoracic and lumbar spine. Will consult orthospine. #3. Chronic debility, imbalance, admit FTT: Noted to be ongoing for several weeks, likely secondary to chronic findings of the back as noted #2 CT of the brain with mild global parenchymal atrophy, chronic microvascular ischemic changes with no evidence of any acute hemorrhage or infarct and at this point would have expected findings, unfortunately may be a component of the significant parenchymal atrophy component, will as noted continue treatment #1, #2, continue PT/OT/case management consultation for discharge planning. #4. Mildly elevated troponin of unclear significance: Initial troponin 33, repeat delta pending, will maintain on research technician be cautious, will obtain magnesium level, FLP in AM, maintain on low-dose baby aspirin in the interim, if enzymes rise notably would obtain echocardiogram. #5. Chronic Kidney Disease Stage II per GFR trending although not significant amount of data: Admission BUN/Cr 15/0.4, GFR 89, baseline renal function 0.8-0.9only 2 points of data however, repeat BMP in AM. #6. Hypertension: Continue home regimen including Coreg, losartan, amlodipine, IV Lasix as noted, PRN hydralazine. #7. Hyperlipidemia: Per current list not on statin therapy, FLP in AM. #8. Anxiety and depression: Will continue patient home buspirone as well as paroxetine home regimen, encourage continued outpatient follow-up with PCP as previously arranged. #9. BPH with obstructive pathology: Will continue patient on Flomax regimen, monitor for retention. #10. Former tobacco use: Encourage continued tobacco cessation. #11. DVT prophylaxis: Lovenox. #12. CODE status: Patient HCPOA and living will are not in place but his who is present would be his medical decision-maker if necessary. Discussed CODEstatus at length including difference between FULL code, DNR-CCA and DNR-CC status. Following discussions about the differences in these status, requested Full Code status. Advanced Care Planning Face to Face Time: 16 minutes. Charges/Coding Visit Charges Inpatient E&M: 16589 Init Hosp L3 Procedures Hospitalists Procedures: 52479 Advncd Care Plan 30 Min 03/23/252148 <Electronically signed by Merry Pham MD> Cosigner Signature (if applicable): CC: LOIS Brand; Dr. Merry Pham MD~ Signed [facility] Work Phone: 1(218) 626-529107-23-2025 History and physical note [facility] Medical Records Department [address] [place] [address] H&P Exam - Hospitalist 03/23/252008 MR#: [id number] Acct: [id number] Name: NANCY SY Rep #:[id number] : [id number] From: Merry Pham MD PCP: LOIS Resendiz Status:ADM I N Location: [place] [address] HPI - General General Date of Admission: 03/23/25 Date of Service: 03/23/25 Chief Complaint: Acute on Chronic back pain, increased BL LE edema, chronic debility HPI Narrative The patient is a 80 y/o M w/ PMHx: Possible Chronic macrocytic anemia, CKD stageII per GFR trending, OA, Allergic rhinitis, Former tobacco use who presents to [facility] ED on 03/23/2025 with 2 weeks of progressively worsening swelling to bilateral lower extremities started on a recent diuretic pill 2 weeks previous using it for 3 days however it did not improve his symptoms so potentially discontinued with difficulty walking, worsened back discomfort and balance issues made worse by his recent increased swelling with no specific dyspnea or any recent cough, fevers or chills prompting ED evaluation he notes that his most recent fall was within the last 2 to 3 weeks. He states that his back discomfort is primarily worsened with any activity or standing attempts. He hasbeen much more sessile since this discomfort. When he does attempt any kind of ambulation his pain is severe, 10 out of 10 with significant debility. He has been attempting to use assistive devices. He denies any specific increased paresthesias above his baseline. He denies any urinary or stool incontinence. Workup in the ED included T98.4, heart rate 102, BP 134 bradycardia, respiratoryrate 16, 94% room air with most recent repeat vital signs heart rate 97, BP 165/84, respiratory rate 16, 98% on room air, CBC with WC 8.0, hemoglobin 12.6, MCV 94.9, platelet 232 with lymphopenia, CMP with BUN/creatinine 15/0.84, GFR 89, troponin initial 33 with repeat delta pending, NT proBNP II 417, bilateral lower extremity duplex ultrasounds negative, CT brain with no acute intracranialabnormality with mild global parenchymal atrophy and chronic microvascular ischemia, CT of the lumbar spine with severe compression deformity L1 vertebral body likely chronic however it does result in moderate spinal canal stenosis, CTof the thoracic spine with no acute fracture, moderate to severe compression deformity T9 vertebral body with lucency along the anterior aspect with inability to rule out an acute fracture, chest x-ray with no acute findings. [facility] Medical History CKD (chronic kidney disease), stage II Former tobacco use BPH (benign prostatic hyperplasia) HLD (hyperlipidemia) Chronic anemia Pancreatitis Osteoporosis Osteopenia Kidney stones Arthritis Allergies Hemorrhoids Hypertension Home Medications ?Medication ?Instructions ?Recorded ?Last Taken ?Type carvedilol 3.125 mg tablet 3.125 mg PO BID 07/09/23 History amlodipine 10 mg tablet 10 mg PO QDAY 07/26/2403/22 History buspirone 15 mg tablet 15 mg PO BID 07/26/24 History calcium carbonate 1,000 mg PO QDAY 07/26/24 History cyanocobalamin (vitamin B-12) 1,000 mcg PO QDAY 03/22/25 History 1,000 mcg capsule losartan 25 mg tablet 100 mg PO DAILY 07/26/24 History melatonin 5 mg capsule mg PO 07/26/24 03/22/25 Hist ory paroxetine HCl 40 mg tablet 40 mg PO QDAY 07/26/24 History tamsulosin 0.4 mg capsule (Flomax) 0.4 mg PO QDAY 07/0303/22/25 History cholecalciferol (vitamin D3) 1,250 1,250 mcg PO QWEEK 09/23/24 Unknown History mcg (50,000 unit) capsule acetaminophen 325 mg tablet 650 mg PO Q6H PRN pain 03/23/25 History (Tylenol) Allergy/AdvReac Type Severity Reaction Status Date / Time No Known Allergies Allergy Verified 03/23/25 16:56 Family History (Updated 03/23/25 @ 21:[address] Merry Pham MD) Father Alcoholism Brother Depression Suicide attempt Grandmother Parkinson disease Sister Osteoporosis Mother Non-alcoholic cirrhosis Surgical History S/P tonsillectomy S/P appendectomy Hx of cholecystectomy Social History (Updated 03/23/25 @ 21:[address] Merry Pham MD) household members: spouse Smoking Status: Former smoker how long ago did patient quit smoking: Quit pipe smoking 15 yrs prior, smoked since 14 ~20 refill/day. alcohol intake: never substance use type: does not use ROS ROS Narrative Admission Review of Systems: CONSTITUTIONAL: No weight loss, fever, chills, weakness or fatigue. HEENT: Eyes: No visual loss, blurred vision, double vision or yellow sclerae. Ears, Nose, Throat: No hearing loss, sneezing, congestion, runny nose or sore throat. SKIN: No rash or itching, lesions, wounds except + occasional stage ecchymoses, abrasion, venous stasis skin changes. CARDIOVASCULAR: + Worsened bilateral lower extremity edema. No chest pain, chest pressure or chest discomfort, palpitations, orthopnea, syncopal events. RESPIRATORY: No shortness of breath, cough or sputum, wheezing, hemoptysis. GASTROINTESTINAL: No anorexia, nausea, vomiting or diarrhea, abdominal pain, melena, BRBPR. GENITOURINARY: + BPH with obstructive pathology. No dysuria, frequency, urgencyor acute retention. NEUROLOGICAL: + Gait debility, chronic neuropathy, general debility with falls. No headache, dizziness, syncope, paralysis, ataxia, focal weakness, change in bowel or bladder control, seizure. MUSCULOSKELETAL: + muscle, back pain, joint pain or stiffness. HEMATOLOGIC: + Possible chronic anemia, easy bleeding/bruising. LYMPHATICS: No enlarged nodes. No history of splenectomy. PSYCHIATRIC: + History of anxiety and depression. ENDOCRINOLOGIC: No reports of sweating, cold or heat intolerance. No polyuria orpolydipsia. ALLERGIES: No history of asthma, hives, eczema or rhinitis. Vital Signs Vital Signs Vital Signs: 03/23/25 15:59 03/23/25 16:56 03/23/25 18:00 Temperature 98.4 F Temperature Source Oral Pulse Rate 102 H 94 Respiratory Rate 16 18 Respiratory Effort Normal Respiratory Pattern Normal Blood Pressure 134/80 H 149/80 H Blood Pressure Mean 98 103 Pulse Ox 94 95 Oxygen Delivery Method Room Air Room Air 03/23/25 20:00 03/23/25 20:01 Temperature 97.9 F Temperature Source Pulse Rate 97 97 Respiratory Rate 20 H 16 Respiratory Effort Respiratory Pattern Blood Pressure 165/84 H 165/84 H Blood Pressure Mean 111 111 Pulse Ox 95 98 Oxygen Delivery Method Room Air Weight Weight: 185 lb 13.595 oz Body Mass Index (BMI) 27.4 Physical Exam Narrative Physical Examination: General: Awake, alert, oriented x 3 and cooperative, hard of hearing, seated upright in ED bed in no apparent distress, notes currently at rest his back is not hurting but with any movement attempts 10 out of 10 severe. Skin: Normal color, normal turgor, no icterus, no cyanosis except occasional stage ecchymoses, abrasion, bilateral lower extremity venous stasis skin changes. HEENT: AT/NC, EOMI, PERRLA, MMM, no carotid bruits or overt marked JVD noted. Lungs: Mildly diminished, greater bases, appropriate effort, no appreciated rales, ronchi or wheezing. Heart: Regular rate and rhythm; no gallop, rub audible. Abdomen: Soft, overweight, NTTP, ND, mildly hyperactive BS, no HSM. Extremities: No cyanosis, no clubbing, significant pedal to knee bilateral 3+ pitting edema. Neurological: Patient awake, alert, oriented as noted, hard of hearing cognitivefunction intact; pupils equally reactive to light and accommodation, cranial nerves grossly normal, moving all 4 extremities, no obvious specific focal deficits, strength moderately to severely globally decreased. Psychiatric: Affect appears mildly flat, fatigued, no acute evidence of depressive or anxiety feelings but does have underlying history. Results Lab / Micro Data 03/23/25 17:41 03/23/25 17:41 Labs: Laboratory Results - last 24 hr 03/23/25 17:41: WBC 8.0, RBC 3.92 L, Hgb 12.6 L, Hct 37.2 L, MCV 94.9 H, MCH 32.1 H, MCHC 33.9, RDWStd Deviation 47.0 H, RDW Coeff of Stefanie 13.5, Plt Count 232, MPV 8.9, Immature Gran % (Auto) 0.500, Neut % (Auto) 75.3 H, Lymph % (Auto)10.3 L, Elliott % (Auto) 10.1 H, Eos % (Auto) 3.3, Baso % (Auto) 0.5, Absolute Neuts (auto) 6.0, Absolute Lymphs (auto) 0.82 L, Nucleated RBC % 0, Sodium 144, Potassium 3.8, Chloride 105, Carbon Dioxide 28.5, Anion Gap 10, BUN 15, Creatinine 0.84, Estim Creat Clear Calc 71.31, Est GFR (MDRD) Non-Af 89, BUN/Creatinine Ratio 17.4, Glucose 95, Calcium 9.2, Total Bilirubin 0.29, AST 16, ALT 9, Alkaline Phosphatase 112, Troponin T High Sens 33 H, NT pro BNP II 417, Total Protein 6.2, Albumin 3.8, Globulin 2.4, Albumin/Globulin Ratio 1.5, Lipase 21 Imaging Radiology Impression Venous Duplex 03/23/25 17:33 IMPRESSION: No DVT. Reading Location: [facility] Brain CT 03/23/25 18:12 IMPRESSION: No acute intracranial abnormality. Reading Location: [facility] Lumbar Spine CT 03/23/25 18:12 IMPRESSION: 1. Severe compression deformity of L1 vertebral body, likely chronic. However,this does results in moderate spinal canal stenosis. 2. If symptoms persist, further evaluation with MRI is recommended. Reading Location: [facility] Thoracic Spine CT 03/23/25 18:12 IMPRESSION: 1. No acute fracture. 2. Moderate to severe compression deformity of T9 vertebral body with lucency along the anterior aspect, acute fracture can not be excluded. Reading Location: [facility] Chest X-Ray 03/23/25 18:20 IMPRESSION: No Acute Findings. Reading Location: [id number] Assessment & Plan Assessment/Plan (1) Acute on chronic back pain: PLAN: Plan The patient is a 80 y/o M w/ PMHx: Possible Chronic macrocytic anemia, CKD stageII per GFR trending, OA, Allergic rhinitis, Former tobacco use who presents to [facility] ED on 03/23/2025 with 2 weeks of progressively worsening swelling to bilateral lower extremities started on a recent diuretic pill 2 weeks previous using it for 3 days however it did not improve his symptoms so potentially discontinued with difficulty walking, worsened back discomfort and balance issues made worse by his recent increased swelling with no specific dyspnea or any recent cough, fevers or chills prompting ED evaluation he notes that his most recent fall was within the last 2 to 3 weeks. #1. Acute significant bilateral lower extremity swelling of unclear etiology, anasarca: Will admit to PCU given mildly elevated troponin concurrently as noted, will maintain on fall precautions, willinitiate IV judicious pulse dose Lasix regimen to assist with reduction of swelling, will place snug nikki wraps ofbilateral lower extremity elevation, duplex ultrasound of note negative, echocardiogram requested, will continue treatment and evaluation as noted of also acute on chronic back pain, magnesium level requested, TSH level requested,FLP in AM. Will maintain on baby aspirin in the interim. #2. Acute on chronic back pain, debility with severe compression deformity L1 vertebral body likelychronic resulting in moderate spinal canal stenosis in addition to moderate to severe compression deformity T9 vertebral body with lucency along the anterior aspect potentially secondary to an acute fracture made more difficult by #1: Complicates presentation especially given lower extremity swelling, will maintain on fall precautions, offloading, lidocaine patches, judicious low-dose IV Toradol scheduled x 5 doses, low-dose 3 times daily 100 mg gabapentin, low-dose as needed tizanidine, breakthrough oral pain medication only as needed, PT/OT/case meds consulted for discharge planning. Will request MRI of the thoracic and lumbar spine. Will consult orthospine. #3. Chronic debility, imbalance, admit FTT: Noted to be ongoing for several weeks, likely secondaryto chronic findings of the back as noted #2 CT of the brain with mild global parenchymal atrophy, chronic microvascular ischemic changes with no evidence of any acute hemorrhage or infarct and at this point would have expected findings, unfortunately may be a component of the significant parenchymal atrophy component, will as noted continue treatment #1, #2, continue PT/OT/case management consultation for discharge planning. #4. Mildly elevated troponin of unclear significance: Initial troponin 33, repeat delta pending, will maintain on research technician be cautious, will obtain magnesium level, FLP in AM, maintain on low-dose baby aspirin in the interim, if enzymes rise notably would obtain echocardiogram. #5. Chronic Kidney Disease Stage II per GFR trending although not significant amount of data: Admission BUN/Cr 15/0.4, GFR 89, baseline renal function 0.8- 0.9only 2 points of data however, repeat BMPin AM. #6. Hypertension: Continue home regimen including Coreg, losartan, amlodipine, IV Lasix as noted, PRN hydralazine. #7. Hyperlipidemia: Per current list not on statin therapy, FLP in AM. #8. Anxiety and depression: Will continue patient home buspirone as well as paroxetine home regimen, encourage continued outpatient follow-up with PCP as previously arranged. #9. BPH with obstructive pathology: Will continue patient on Flomax regimen, monitor for retention. #10. Former tobacco use: Encourage continued tobacco cessation. #11. DVT prophylaxis: Lovenox. #12. CODE status: Patient HCPOA and living will are not in place but his who is present would be his medical decision-maker if necessary. Discussed CODEstatus at length including difference between FULL code, DNR-CCA and DNR-CC status. Following discussions about the differences in these status, requested Full Code status. Advanced Care Planning Face to Face Time: 16 minutes. Charges/Coding Visit Charges Inpatient E&M: 51658 Init Hosp L3 Procedures Hospitalists Procedures: 43304 Advncd Care Plan 30 Min 03/23/25 2672 Cosigner Signature (if applicable): CC: HOUSEKEEPING ROOM INSPECTORLeighann Brand; Dr. Merry Pham MD~ Signed [facility]07-23-2025 Radiology Diagnostic study note [facility] Imaging Services [address] [place] [address] Spine Thoracic without Contras MR#: [id number] Acct: [id number] Name: NANCY SY Rep #: [id number] : 1945 M 80 From: Margarita Baptiste MD PCP: LOIS Resendiz Status: REG E R Study:Spine Thoracic without Contras Date of Exam: 03/23/25 Exam# [id number] Ordering Dr: Tay Camacho DO EXAM: CT Thoracic Spine Without Intravenous Contrast CLINICAL INDICATION: MID BACK PAIN TECHNIQUE: Axial computed tomography images of the thoracic spine without intravenous contrast. This CT exam was performed using one or more of the following dose reduction techniques: automated exposure control, adjustment of the mA and/or kV according to patient size, and/or use of iterative reconstruction technique. COMPARISON: No relevant prior studies available. FINDINGS: VERTEBRAE: Moderate to severe compression deformity of T9 vertebral body with lucency along the anterior aspect, acute fracture can not be excluded. Severe compression deformity of T11 vertebral body status post vertebroplasty.Moderate compression deformity of the L1 vertebral body. No acute fracture. DISCS/SPINAL CANAL/NEURAL FORAMINA: No acute findings. No significant spinal canal stenosis. SOFT TISSUES: Unremarkable. CT/Spine Thoracic without Contras IMPRESSION: 1. No acute fracture. 2. Moderate to severe compression deformity of T9 vertebral body with lucency along the anterior aspect, acute fracture can not be excluded. Reading Location: [facility] CC: HOUSEKEEPING ROOM INSPECTOR-Shahla Brand; Dr. Marco Camacho DO ~ Lard Renderer: Signed [facility]07-23-2025 Radiology Diagnostic study note [facility] Imaging Services [address] [place] [address] Spine Lumbar without Contrast MR#: [id number] Acct: [id number] Name: NANCY SY Rep #: [id number] : 1945 M 80 From: Margarita Baptiste MD PCP: LOIS Resendiz Status: REG E R Study:Spine Lumbar without Contrast Date of E xam: 03/23/25 Exam# [id number] Ordering Dr: Tay Camacho DO EXAM: CT Lumbar Spine Without Intravenous Contrast CLINICAL INDICATION: LOW BACK PAIN TECHNIQUE: Axial computed tomography images of the lumbar spine without intravenous contrast. This CT exam was performed using one or more of the following dose reduction techniques: automated exposure control, adjustment of the mA and/or kV according to patient size, and/or use of iterative reconstruction technique. COMPARISON: No relevant prior studies available. FINDINGS: VERTEBRAE: Severe compression deformity of L1 vertebral body, likely chronic. However, this does results in moderate spinal canal stenosis. DISCS/SPINAL CANAL/NEURAL FORAMINA: See above. SOFT TISSUES: Unremarkable. CT/Spine Lumbar without Contrast IMPRESSION: 1. Severe compression deformity of L1 vertebral body, likely chronic. However,this does results in moderate spinal canal stenosis. 2. If symptoms persist, further evaluation with MRI is recommended. Reading Location: [id number] CC: LOIS Brand; DO Kee Nuñez Lard Renderer: Signed [facility]07-23-2025 Radiology Diagnostic study note [facility] Imaging Services [address] [place] [id number] Chest 1 View (Portable) MR#: [id number] Acct: [id number] Name: NANCY SY Rep #: [id number] : 1945 M 80 From: Bethel Delatorre MD PCP: LOIS Resendiz Status: REG E R Study:Chest 1 View (Portable) Date of Exam: 03/23/25 Exam# [id number] Ordering Dr: Tay Camacho DO PROCEDURE: CHEST 1 VIEW (PORTABLE) 03/23/2025 REASON FOR EXAM: DIZZINESS, SHORTNESS OF BREATH TECHNIQUE: Frontal view of the chest. COMPARISON: None. FINDINGS: The heart is partially obscured due to low lung volumes. Left basilar linear opacities which may represent atelectasis versus scar. The lungs are otherwise clear. No acute osseous abnormalities. RAD/Chest 1 View (Portable) IMPRESSION: No Acute Findings. Reading Location: [facility] CC: LOIS Brand; Dr. Marco Camacho DO ~ Lard Renderer: Signed [facility]07-23-2025 Radiology Diagnostic study note [facility] Imaging Services [address] [place], [place] [id number] Venous Duplex Imag/Efrain Extrem MR#: [id number] Acct: [id number] Name: NANCY SY Rep #: [id number] : 1945 M 80 From: Bethel Delatorre MD PCP: NOAH ResendizC Status: REG E R Study:Venous Duplex Imag/Efrain Extrem Date of E xam: 03/23/25 Exam# [id number] Ordering Dr: Tay Camacho DO PROCEDURE: VENOUS DUPLEX IMAG/EFRAIN EXTREM 03/23/2025 REASON FOR EXAM: M 80 y/o TECHNIQUE: VENOUS DUPLEX IMAG/EFRAIN EXTREM COMPARISON: None. FINDINGS: Normal compressibility and color Doppler flow of the bilateral lower extremities. Edema is visualized in the bilateral calves. US/Venous Duplex Imag/Efrain Extrem IMPRESSION: No DVT. Reading Location: [facility] CC: LOIS Brand; Dr. Macro Camacho DO ~ Lard Renderer: Signed [facility]07-23-2025 Radiology Diagnostic study note [facility] Imaging Services [address] [place], [place] [id number] Brain/Head without Contrast MR#: [id number] Acct: [id number] Name: NANCY SY Rep #: [id number] : 1945 M 80 From: Bethel Delatorre MD PCP: NOAH ResendizC Status: REG E R Study:Brain/Head without Contrast Date of Exa m: 03/23/25 Exam# [id number] Ordering Dr: Tay Camacho DO PROCEDURE: BRAIN/HEAD WITHOUT CONTRAST 03/23/2025 REASON FOR EXAM: DIZZINESS, BALANCE ISSUE TECHNIQUE: BRAIN/HEAD WITHOUT CONTRAST Coronal and Sagittal reconstruction series were provided. One or more dose reduction techniques were used (e.g., Automated exposure control, adjustment of the mA and/or kV according to patient size, use of iterative reconstruction technique. RADIATION DOSE SUMMARY: CTDlvol: 27.09 mGy DLP: 3804.78 mGycm COMPARISON: None. FINDINGS: Mild global parenchymal atrophy. Chronic microvascular ischemia. No evidence of acute hemorrhage orinfarction. No extra-axial blood or fluid collections. The paranasal sinuses are clear. The mastoid air cells are well aerated. The calvarial vault and skull base are intact. CT/Brain/Head without Contrast IMPRESSION: No acute intracranial abnormality. Reading Location: [id number] CC: LOIS Brand; Dr. Marco Camacho, DO ~ Lard Renderer: Signed [facility]06-30-2025 Note. MICRO - Microbiology PROCEDURE: Blood Culture (bacterial) [...] Locations *1: This test was performed at: [facility], [address] [place] [address], [address] [place], [place] [address]-30-2025 Note. MICRO - Microbiology PROCEDURE: Blood Culture (bacterial) [...] Locations *1: This test was performed at: [facility], [address] [place] [address], [phone] , [facility]06-26-2025 Hospital Discharge instructions Patient Education 02/24/2025 12:59:09 Spinal Compression Fracture Spinal Compression Fracture A spinal compression fracture is a collapse of the bones that form the spine (vertebrae). With thistype of fracture, the vertebrae become pushed (compressed) [...] medical history, and a physical exam. During thephysical exam, your health care provider may tap [...] and severity of the condition. Some fractures mayheal on their own with supportive care. Treatment [...] Follow these instructions at home: Medicines Take eboa-rpp-opioara and prescription medicines only as told by [...] as fried or sweet foods. ?Take an trwa-meo-jyczjyi or prescription medicine for constipation. If you [...] your back (physical therapy), as recommended by yourhealth care provider. Exercise regularly as directed by [...] 08/18/2006 Document Revised: 10/14/2019 Document Reviewed: 09/29/2018 [employer] Patient Education 2020 [employer] 02/24/2025 12:58:21 Weakness, Cibp-gb-Dzta Weakness Weakness is a lack of strength. You may feel weak all over your body (generalized), or you may feelweak in one part of your body (focal). [...] 2 days a week or as told byyour doctor. Think about working with a physical therapist or product trainer to help you get stronger. General instructions Take hlwn-xvg-enydybz and prescription medicines only as told by [...] 07/31/2009 Document Revised: 03/24/2019 Document Reviewed: 03/24/2019 [employer] Patient Education 2020 [employer] Follow Up Care 02/22/2025 17:35:43 With:IWONA ARCHER DO Address: [address] [place] [address] [phone] When: Unknown Comments:Please call to schedule with pulmonology for post-hospital appointment regarding 8mm pulmonary nodule. With:ZANDRA FREIRE MD Address: [address] [place] [address] [address] [place] [address]- [phone] When: Unknown Comments:Please call to schedule your post-hospital follow-up appointment with orthopedic spine doctor for worsening lumbar fractures. With:KATHERINE BRAND APRN-BERTHA Address: [address] [place], [place] [phone] When:2-4 days [facility] 06-26-2025 Note Discharge Instructions Thank you for allowing [facility] to assist you with your healthcare needs. [...] a CT scan that showed worsening compression fractureof L1 vertebra. This is the same 1 [...] an additional 3 days that we will start02/25/2025. You had a CT of your chest that showed an 8 mm nodule. Recommend that you follow-up with a lung doctor (control area operator). Your indicated that she would prefer to make your appointments. Scheduled Follow-Up Appointments Appointment Type When With Where Contact Information StatusPC OV 03/09/2025 03:00 PM EDT KATHERINE BRAND APRN-BERTHA [address] [phone] Confirmed PC OV 05/05/2025 03:00 PM EDT KATHERINE BRAND APRN-BERTHA [address] [phone] Confirmed Follow Up Appointments Follow Up with IWONA ARCHER DO Where:[address] [facility] [address] [place] [phone] Additional Information: Please call to schedule with pulmonology for post- hospital appointment regarding 8mm pulmonary nodule. Follow Up with ZANDRA FREIRE MD Where:[address] [facility] [address] [place] [phone] Additional Information: Please call to schedule your post-hospital follow-up appointment with orthopedic spine doctor for worsening lumbar fractures. Follow Up with KATHERINE BRAND APRN-RIP AND GROOVE MACHINE OPERATOR When:Within 2-4 days Where:[address] [place] [phone] The Following Activity and Diet Have Been [...] a meal Duration: 3 Days Pickup at [facility] Unchanged acetaminophen (acetaminophen 500 mg oral tablet) [...] by mouth Once a day Pharmacy Information [facility]: [address] [place], [place] [phone] Please take this list to your next doctor s visit. Bring all medications you take, including over the counter medications, herbals and other supplements with you to your doctor s visit. Patients and families are reminded to discard old lists and to update any records with all medication providers or retail pharmacies. Medication Leaflets prednisone (PRED lori sone) Dimitris What is the most important information I [...] blood cell disorders, kidney disorders, leukemia, lymphoma, multi ple sclerosis, organ transplant rejection, swelling from a brain tumor or injury. Prednisone may also be used for purposes not listed in this medication guide. What should I discuss with my healthcare provider before taking prednisone? You should not use prednisone if you are allergic to it, or if you have a fungal infection anywherein your body. Steroid medication can weaken your [...] you may get an infection more easily. Callyour doctor if you have signs of infection [...] to thinning skin, easy bruising, changes in bodyfat (especially in your face, neck, back, and [...] can be serious or even fatal in peoplewho are using steroid medicine. Avoid drinking alcohol. [...] skin discoloration, craving salty foods, and feeling light- headed; or low potassium level--leg cramps, constipation, irregular heartbeats, fluttering in your chest, increased thirst or urination, numbness or tingling, muscle weakness or limp feeling. Prednisone can affect growth in children. Tell your doctor if your child is not growing at a normalrate while using this medicine. Common side effects [...] may report side effects to FDA at 0-122-SCI-8466. What other drugs will affect prednisone? Sometimes [...] may affect prednisone. This includes prescription and fubw-nhl-zubctyh medicines, vitamins, and herbal products. Not all [...] to ensure that the information provided by Centrify. ('Multum') is accurate, up-to-date, and complete, but no guarantee is made to that effect. Drug information contained herein may be time sensitive. Arganteal information has been compiled for use by healthcare practitioners and consumers in the [place] and therefore Arganteal does not warrant that uses outside of the [place] are appropriate, unless specifically indicated otherwise. Vudus drug information does not endorse drugs, diagnose patients or recommend therapy. Vudus drug information isan informational resource designed to [...] effective or appropriate for any given patient. Arganteal does not assume any responsibility for any aspect of healthcare administered with the aid of information Arganteal provides. The information contained herein is not intended to cover all possible uses, directions, precautions, warnings, drug interactions, allergic reactions, or adverse effects. If you have questions about the drugs you are taking, check with your doctor, nurse or pharmacist. Copyright 4963-6250 Centrify. Version: 10.. Revision Date: 11/26/2018. Education Materials Spinal Compression Fracture A spinal compression fracture is a collapse of the bones that form the spine (vertebrae). With thistype of fracture, the vertebrae become pushed (compressed) [...] medical history, and a physical exam. During thephysical exam, your health care provider may tap [...] and severity of the condition. Some fractures mayheal on their own with supportive care. Treatment [...] Follow these instructions at home: Medicines Take aolm-tou-lwzilpx and prescription medicines only as told by [...] fried or sweet foods. ? Take an cjxm-gdw-vaitbzo or prescription medicine for constipation. If you [...] your back (physical therapy), as recommended by yourhealth care provider. Exercise regularly as directed by [...] 08/18/2006 Document Revised: 10/14/2019 Document Reviewed: 09/29/2018 Ledzworld Patient Education 2020 Ledzworld Inc. Weakness Weakness is a lack of strength. You may feel weak all over your body (generalized), or you may feelweak in one part of your body (focal). [...] 2 days a week or as told byyour doctor. Think about working with a physical therapist or product trainer to help you get stronger. General instructions Take gbgh-dwq-rqkqvbq and prescription medicines only as told by [...] 07/31/2009 Document Revised: 03/24/2019 Document Reviewed: 03/24/2019 Ledzworld Patient Education 2020 [employer]. Additional Information VACCINATE! IT SAVES LIVES! Members of the community who have not yet received the COVID-19 vaccine and would like to receive it can visit one of [facility] vaccine clinics. There are many vaccine clinic locations within the [facility]. For locations and available times, please visit [email or web address] It is important to note that some COVID mobile vaccine clinics are held outdoors and may be canceled in rainy or stormy conditions. To learn more about pediatric vaccinations (ages 5-11), we invite you to visit the [facility] webpage. https://www.[email or web address].org/pages/2661-Zizcq-Swzkwzeuyls-Zxixhyxwfk-Jimbd-Utw stions.htmlTo learn more about the COVID-19 vaccine, we invite you to visit the CDC website for a list of frequently asked questions.https://www.cdc.gov/coronavirus/2019-ncov/vaccines/faq.html [facility] Patient Portal Access Instructions: Stay connected with your healthcare team and access your personal medical information anytime with the [facility] Patient Portal. Please follow the directions below to create your [facility] account: 1.Access the email account you provided upon registration to the hospital/physician office.2.Look for an invitation email from [facility].3.Open the email and access the invitation link: AcceptInvitation to [facility].4.Fill in the required britt to create your account. To access your account, visit [email or web address]. Click the blue button labeled Access Patient [...] who you will allowto register on the [facility] [employer] Patient Portal for access to your information. You can also access the [facility] [employer] Patient Portal on the [facility] dylan. Simply click on Patient Portal and then log into your account. If you would like to receive a full copy of your medical records, please contact the [facility] Medical Records Department by calling [phone], Friday through Friday between 8 a.m. and [...] Call your local pharmacy or go to [email or web address] [email or web address] [email or web address] to find one close to you.3.Make use of household items: Use cat litter or old coffee grounds to dispose medications if other options arenot available. Mix your drugs with these household products, seal them in an airtight container andthrow it into the garbage. Call [facility]: [phone] to be sure your drugs can be [...] Patient Education Materials Spinal Compression Fracture Weakness, Nbgp-go-Psnl Medication Leaflets prednisone My discharge plan and instructions have been reviewed and explained to me and IALVARO KENNETH C understand my current condition and have read and understand these discharge instructions. I have received a written copy of the plan/instructions. If I have questions, I am aware that I should contact my doctor. Patient/Comparator Operator Signature: Date/Time: Relationship to Patient: Witness Name/Signature: Date/Time: [facility]06-25-2025 Note. MICRO - Microbiology PROCEDURE: Legionella Urine [...] Locations *1: This test was performed at: [address], [address] [place], [place] 6267406-25-2025 Note. MICRO - Microbiology PROCEDURE: Streptococcus Pneumoniae [...] Locations *1: This test was performed at: [address], [address] [place], [place] [address]267406-25-2025 Evaluation + Plan noteExtracted from: Title:History and Physical Author:THAO MERINO APRN-RIP AND GROOVE MACHINE OPERATOR Date:02/23/25 1. Bronchitis 2. Acute [...] He will be referred to pulmonology in [place]. Patient and updated on results. L1 compression [...] Date:03/09/2025 03:00:00 PM Scheduled Provider:KATHERINE BRAND Location:[facility] Appointment Type: OV Appointment Date:05/05/2025 03:00:00 PM Scheduled Provider:KATHERINE BRAND Location:[facility] Appointment Type:[facility] Future Scheduled Tests Laboratory* Vitamin D Level 11/03/24 * Vitamin D Level 07/25/24 [facility] 06-25-2025 Note Date of Service 02/23/2025 Chief Complaint c/o rib pain and sob s/p fall on friday. -loc. Pt states he tripped over a pillow on the floor and fell History of Present Illness 80-year-old male with past medical history significant for hypertension, BPH, anxiety, L1 compression fracture, lumbar stenosis, chronic back pain. Patient presented to [facility] emergency department 02/22/2025 with dyspnea, weakness, falls.He [...] He will be referred to pulmonology in [place]. Patient and updated onresults. 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 Days per week: 1-2 times/week., 03/11/2020 Home/Environment OTher risks in environment: no current smoke exposure. Primary Ferryboat Ticket Taker: Self, lives with his Leida, and their [...] (COVID-19) mRNA-1273 vaccine: 0.5 unknown unit (11/01/20) tetanus/diphtheria/pertussMUL.ORD!u72481: 0.5 mL (04/24/23) Code Status Code Status - Ordered -- 02/22/25 20:25:00 EDT, Full Code, Constant Order Digitally Signed by THAO MERINO on 02/23/2025 11:54 AM Digitally Signed by PAULINO MATTSON MD [facility]06-25-2025 Note* Exam Date Time Procedure Performing Provider Status 02/23/25 10:27 AM XR Abdomen AP DERREK JOHN MD ; Auth (Verified) [id number] ORIGINAL EXAMINATION: ONE SUPINE XRAY VIEW(S) OF [...] 02/23/2025 11:03:02 AM Ordering Provider: THAO MERINO [facility]06-24-2025 Note* Exam Date Time Procedure Performing Provider Status 02/22/25 10:[address] Angiography Chest w/ Contrast FAM ROBERT DO; Auth (Verified) [id number] ORIGINAL EXAMINATION: CTA OF THE CHEST 02/22/2025 [...] 02/23/2025 4:22:10 PM Ordering Provider: OSMEL BURRELL [facility]06-24-2025 HCoV HKU1 RNA DARYA+non-probe Ql (Nph) Not Detected *NA* (02/22/25 6:51 PM)AH Auto Viro/Sero [id number] Note* Exam Date Time Procedure Performing Provider Status 02/22/25 6:37 PM XR Chest 1 View FAM WAGNER DO; Auth (Verified) [id number] ORIGINAL EXAMINATION: ONE XRAY VIEW OF THE [...] 02/22/2025 7:30:02 PM Ordering Provider: BRYN CONTRERAS [facility]06-24-2025 Note* Exam Date Time Procedure Performing Provider Status 02/22/25 5:59 PM EKG [ED AOH] - CV BRYN CONTRERAS DO; (Verified) ECG Final Report Sinus tachycardia Multiple premature complexes, vent & supraven Borderline T abnormalities, inferior leads Electronic Signature: BRYN CONTRERAS DO 02/22/2025 18:02:45 [facility]12-18-2024 Hospital Discharge instructions Patient Education 08/18/2024 15:45:08 [...] in vomit, stools (black or red color) 2966-2031 [employer]. [address] [place] [address]. All rights reserved. This information is not intended as a substitute for professional medical care. Always follow yourhealthcare professional's instructions. Follow Up Care 08/18/2024 14:28:40 With:KATHERINE BRAND APRN-RIP AND GROOVE MACHINE OPERATOR Address: [address] [facility] [place] [phone] When:2-4 days [facility] 12-18-2024 Note Discharge Instructions Thank you for allowing [facility] to assist you with your healthcare needs. The following is importantdischarge information regarding your hospital visit. Diagnosis from Today's Visit Fall What to Do Next Instructions from Your Care Team No qualifying data available. Post Acute Orders No qualifying data available. You Need to Schedule the Following Appointments Follow Up with KATHERINE BRAND When:Within 2-4 days Where:[address] [facility] [place] [address] [phone] Allergies Sallie Nausea Claritin Slo-Niacin atenolol buPROPion [...] in vomit, stools (black or red color) 2900-3454 [employer]. [address] [place] [address], [place] [address]. All rights reserved. This information is not intended as a substitute for professional medical care. Always follow yourhealthcare professional's instructions. Additional Information VACCINATE! IT SAVES LIVES! Members of the community who have not yet received the COVID-19 vaccine and would like to receive it can visit one of [facility] vaccine clinics. There are many vaccine clinic locations within the [facility]. For locations and available times, please visit www.[email or web address]/. It is important to note that some COVID mobile vaccine clinics are held outdoors and may be canceled in rainy or stormy conditions. To learn more about pediatric vaccinations (ages 5-11), we invite you to visit the [facility] webpage. https://www.[email or web address].org/pages/6439-Gqewf-Llxzvafxktz-Wtmmcudvzz-Jcyht-Hvd stions.htmlTo learn more about the COVID-19 vaccine, we invite you to visit the CDC website for a list of frequently asked questions. https://www.cdc.gov/coronavirus/2019-ncov/vaccines/faq.html [facility] Patient Portal Access Instructions: Stay connected with your healthcare team and access your personal medical information anytime with the [facility] Patient Portal. If you would like a full copy of your medical records please contact the [facility] Medical Records Department Friday through Friday between 8a.m. and 4:30p.m. Please follow the directions below to access the portal: 1.Access the email account you provided upon registration to the [facility].2.Look for an invitation email from [facility].3.Open the email and access the invitation link: Accept Invitation to [facility]4.Fill in the required britt to create your account. Sign into [email or web address] with your username and password that you [...] you will allow to register on the [facility] Patient Portal for access to your information. You can also access the [facility] Patient Portal on the [employer]. Simply click on Health Records under [employer] and then click on the [employer]ic logo. HOW TO SAFELY DISPOSE OF PRESCRIPTION [...] Call your local pharmacy or go to [email or web address] Valet.[email or web address] [email or web address] to find one close to you.3.Make use of household items: Use cat litter or old coffee grounds to dispose medications if other options arenot available. Mix your drugs with these household products, seal them in an airtight container andthrow it into the garbage. Call [facility]: [phone] to be sure your drugs can be [...] aware that I should contact my doctor. Patient/Comparator Operator Signature: Date/Time: Relationship to Patient: Witness Name/Signature: Date/Time: [facility]12-18-2024 Note* Exam Date Time Procedure Performing Provider Status 08/18/24 3:07 PM XR Ribs 2 Views Left /PA Chest (AO) Auth (Verified) [id number] ORIGINAL EXAMINATION: 2 XRAY VIEWS OF LEFT [...] 08/18/2024 3:31:12 PM Ordering Provider: SIERRA BLACK [facility]12-18-2024 Note* Exam Date Time Procedure Performing Provider Status 08/18/24 3:[address] Head or Brain w/o Contrast Auth (Verified) [id number] ORIGINAL EXAMINATION: CT OF THE HEAD WITHOUT [...] Sign Date: 08/18/2024 3:16:57 PM Ordering Provider: [facility]12-18-2024 Note* Exam Date Time Procedure Performing Provider Status 08/18/24 3:06 PM XR Elbow Minimum 3 Views Left Auth (Verified) [id number] ORIGINAL EXAMINATION: THREE XRAY VIEWS OF THE [...] 08/18/2024 3:28:37 PM Ordering Provider: SIERRA BLACK [facility]12-06-2024 Note. MICRO - Microbiology PROCEDURE: Urine Culture [*1] SOURCE: Urine, Clean Catch BODY SITE: COLLECTED DATE/TIME: 08/05/2024 15:13 EST RECEIVED DATE/TIME: 08/05/2024 19:03 EST START DATE/TIME: 08/05/2024 19:03 EST FREE TEXT SOURCE: FINAL REPORTS Final Report [] Verified Date/Time/Personnel: 08/06/2024 14:49 EST 10,000 - 50,000 cfu/ml Mixed growth consistent with normal urogenital yobany. Performing Locations *1: This test was performed at: [address], [facility]- , [facility]10-11-2024 Note ORIGINAL EXAMINATION: BONE DENSITOMETRY 06/11/2024 [...] Sign Date: 06/11/2024 3:10:47 PM Ordering Provider: [facility]08-31-2024 Hospital Discharge instructions Patient Education [...] Follow these instructions at home: Medicines Take ftpu-jay-airwcxo and prescription medicines only as told by [...] as fried or sweet foods. ?Take an gkxs-zle-xoazsar or prescription medicine for constipation. If you [...] 12/03/2007 Document Revised: 10/03/2018 Document Reviewed: 10/03/2018 Ledzworld Patient Education 2020 [employer]. Follow Up Care 04/26/2024 12:06:12 With:KATHERINE BRAND APRN-RIP AND GROOVE MACHINE OPERATOR Address: [address] [facility] [place] [address] [phone] When: Unknown With:BRODY PATE DO, Orthopedic Address: [address] [place] [address], [address] [facility] [place] [address] [phone] When:05/25/2024 15:00:00 Comments:This appointment can serve as your post-hospital follow-up appointment. Follow-up as scheduled. [facility] 08-31-2024 Note Discharge Instructions Thank you for allowing [facility] to assist you with your healthcare needs. The following is importantdischarge information regarding your hospital visit. Your Care Team [facility] Your Diagnosis Asthenia Compression fracture of spine Hypertension What to do next Scheduled Follow-Up Appointments Appointment Type When With Where Contact Information StatusPC OV 08/18/2024 03:00 PM EST KATHERINE BRAND APRN-BERTHA [facility] [address] [place] [phone] Confirmed Follow Up Appointments Follow Up with KATHERINE BRAND Where:[address] [place] [address] [phone] Follow Up with BRODY PATE DO, Orthopedic When:05/25/2024 03:00 PM EDT Where:[facility] [address] [facility] [place] [phone] Additional Information: This appointment can serve as [...] and or supplements as they may [facility]. What How Much When Instructions Last Dose New lidocaine topical (Lidoderm 5% topical patch) 2 patch(es) Topical Once a day DUE TO BE APPLIED AT BEDTIME ON FOR 12 HOURS AND OFF FOR 12 HOURS Duration: 30 Days remove patches after 12 hours Pickup at [facility] 181104/30/24 New potassium chloride (K-Tab 20 mEq oral tablet, extended release) 3 tab(s) by mouth Once a day DUE 05/02/24 Duration: 30 Days Take with food- 2 tabs qam, 1 tab qpm Pickup at [facility] 181105/01/24 0800 Unchanged acetaminophen (acetaminophen 500 mg oral tablet) [...] by mouth Every day Duration: 90 Days 05/01/24799 Unchanged psyllium (Metamucil) 1.7 gram(s) by mouth Daily after supper 04/30/2024 Unchanged tamsulosin (Flomax 0.4 mg oral capsule) 1 cap by mouth Once a day 05/01/24799 Pharmacy Information [facility]: [address] [place], [place] [phone] Please take this list to your next [...] may report side effects to FDA at 2-491-XKQ-[phone]. What other drugs will affect potassium chloride? Tell your doctor about all your other medicines, especially: medicine to prevent organ transplant rejection; a diuretic or 'water pill'; or heart or blood pressure medication. This list is not complete. Other drugs may affect potassium chloride, including prescription and nkes-fqg-geljdeb medicines, vitamins, and herbal products. Not all [...] to ensure that the information provided by [employer]. ('Multum') is accurate, up-to-date, and complete, but no guarantee is made to that effect. Drug information contained herein may be time sensitive. Arganteal information has been compiled for use by healthcare practitioners and consumers in the [place] and therefore Arganteal does not warrant that uses outside of the [place] are appropriate, unless specifically indicated otherwise. [employer] drug information does not endorse drugs, diagnose patients or recommend therapy. Vudus drug information isan informational resource designed to [...] effective or appropriate for any given patient. Arg[employer]al does not assume any responsibility for any aspect of healthcare administered with the aid of information Arganteal provides. The information contained herein is not intended to cover all possible uses, directions, precautions, warnings, drug interactions, allergic reactions, or adverse effects. If you have questions about the drugs you are taking, check with your doctor, nurse or pharmacist. Copyright 1264-1260 Centr[employer]. Version: 16.. Revision Date: 04/09/2023. Education Materials [...] Follow these instructions at home: Medicines Take zoji-uik-ejcijxy and prescription medicines only as told by [...] fried or sweet foods. ? Take an ykha-eln-owuiiyc or prescription medicine for constipation. If you [...] 12/03/2007 Document Revised: 10/03/2018 Document Reviewed: 10/03/2018 Elsevier Patient Education 2020 Ledzworld Inc. Additional Information VACCINATE! IT SAVES LIVES! Members of the community who have not yet received the COVID-19 vaccine and would like to receive it can visit one of [facility] vaccine clinics. There are many vaccine clinic locations within the [facility]. For locations and available times, please visit [email or web address]/. It is important to note that some COVID mobile vaccine clinics are held outdoors and may be canceled in rainy or stormy conditions. To learn more about pediatric vaccinations (ages 5-11), we invite you to visit the [facility] webpage. https://www.[facility].org/pages/7306-Rjbqh-Koigjatdsri-Hhznwpsasz-Vhuiq-Jwe stions.htmlTo learn more about the COVID-19 vaccine, we invite you to visit the CDC website for a list of frequently asked questions.https://www.cdc.gov/coronavirus/2019-ncov/vaccines/faq.html [facility] Patient Portal Access Instructions: Stay connected with your healthcare team and access your personal medical information anytime with the [facility] Patient Portal. Please follow the directions below to create your [facility] account: 1.Access the email account you provided upon registration to the hospital/physician office.2.Look for an invitation email from [facility].3.Open the email and access the invitation link: AcceptInvitation to [facility].4.Fill in the required britt to create your account. To access your account, visit [email or web address]. Click the blue button labeled Access Patient Portal and then log in with the username and password that you created in the steps above. You will be able to view your test results, lab results, a summary of your visits, upcoming appointments and more. There is also a convenient messaging option where you can send secure messages to your p [employer]. In addition, you will have the ability to download any documents or summaries to your computer and/or send the information securely to a physician. Remember that your healthcare information is confidential, so carefully consider who you will allowto register on the [facility] Patient Portal for access to your information. You can also access the [facility] Patient Portal on the [facility] dylan. Simply click on Patient Portal and then log into your account. If you would like to receive a full copy of your medical records, please contact the [facility] Medical Records Department by calling [phone], Friday through Friday between 8 a.m. and [...] Call your local pharmacy or go to [email or web address] [email or web address] to find one close to you.3.Make use of household items: Use cat litter or old coffee grounds to dispose medications if other options arenot available. Mix your drugs with these household products, seal them in an airtight container andthrow it into the garbage. Call [facility] [place]: [phone] to be sure your drugs can be [...] aware that I should contact my doctor. Patient/Comparator Operator Signature: Date/Time: Relationship to Patient: Witness Name/Signature: Date/Time: [facility]08-27-2024 Note Date of Service 04/27/24 History of Present Illness This is a 79-year-old male With past medical history of T11 compression fracture, hypertension, BPH, anxiety. He presented to [facility] on 04/22/2024 with complaints of severe back [...] mobilization. Was seen by PT/OT who recommended long term facility. Has been maintained on 1 L nasal cannula. Completed 5 days of treatment for pneumonia. He was subsequently admitted to [facility]. 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 Days per week: 1-2 times/week., 03/11/2020 Home/Environment OTher risks in environment: no current smoke exposure. Primary Ferryboat Ticket Taker: Self, lives with his Leida, and their [...] by THAO MERINO on 04/27/2024 06:06 PM [facility]08-27-2024 Evaluation + Plan noteExtracted from: Title:History and Physical Author:THAO MERINO APRN-BERTHA Date:04/27/24 1. Asthenia 2. Hypertension 3. Compression [...] Appointment Date:08/18/2024 03:00:00 PM Scheduled Provider:KATHERINE BRAND Location:[facility] Appointment Type:PC OV [facility] 08-26-2024 Nurse Progress note I read and agree with Yannick Krueger vital signs documentation Digitally Signed by Elissa De La Rosa Shoe Repair Supervisor on 04/26/2024 03:34 PM [facility]08-26-2024 Hospital Discharge instructions Patient Education 04/26/2024 13:32:24 [...] Follow these instructions at home: Medicines Take utsh-osr-xlwmfzf and prescription medicines only as told by [...] pain is severe. ?Do not take other dicz-vdo-iofljrd pain medicines in addition to prescription pain [...] grains, and fresh fruits and vegetables. ?Take mcow-zcb-mqqyatq or prescription medicines. ?Limit foods that are [...] or you are no longer ill. Take kvok-fqa-ykbhxzy and prescription medicines only as told by [...] 09/01/2016 Document Revised: 01/03/2020 Document Reviewed: 01/03/2020 [employer] Patient Education 2020 [employer]. Follow Up Care 04/22/2024 17:53:30 With:KATHERINE BRANDRIP AND GROOVE MACHINE OPERATOR Address: [address] [facility] [place] [address]- [phone] When:3-5 days Comments:Please call to schedule your post-hospital follow-up appointment. With:BRODY PATE DO, Orthopedic Address: [address] [place] [address], [address] [facility] [place] [address] [phone] When:05/25/2024 15:00:00 Comments:This appointment can serve as your post-hospital follow-up appointment with orthopedics. Follow-up as scheduled. [facility] 08-26-2024 Nurse Progress note I agree with Yannick FOX Nurse Midwife/Clinical Instructor assessment and vital signs. [facility] Digitally Signed by Elissa De La Rosa Shoe Repair Supervisor on 04/26/2024 01:36 PM [facility]08-26-2024 Note Discharge Instructions Thank you for allowing [facility] to assist you with your healthcare needs. The following is importantdischarge information regarding your hospital visit. Your Care Team Reji Cao CNP Your Diagnosis Acute hypoxic respiratory failure Anxiety Compression fracture of L1 vertebra HTN (hypertension) Hypernatremia Pneumonia What to do next Scheduled Follow-Up Appointments Appointment Type When With Where Contact Information StatusPC OV 08/18/2024 03:00 PM EST KATHERINE BRAND [facility] [address] [place] [phone] Confirmed Follow Up Appointments Follow Up with KATHERINE BRAND When:Within 3-5 days Where:[address] [place] [address] [phone] Additional Information: Please call to schedule your post-hospital follow-up appointment. Follow Up with BRODY PATE DO, Orthopedic When:05/25/2024 03:00 PM EDT Where:[facility], [address] [facility] [place] [address] [phone] Additional Information: This appointment can serve as [...] Ordered -- 04/26/24 10:43:00 EDT, FORREST CAO Transfer of Care Oxygen Therapy - Ordered [...] Follow these instructions at home: Medicines Take kpqp-jff-bnewges and prescription medicines only as told by [...] is severe. ? Do not take other ejml-oqr-zstzoxs pain medicines in addition to prescription pain [...] and fresh fruits and vegetables. ? Take preq-poq-kykldqy or prescription medicines. ? Limit foods that [...] or you are no longer ill. Take bliw-rrk-alnrutp and prescription medicines only as told by [...] 09/01/2016 Document Revised: 01/03/2020 Document Reviewed: 01/03/2020 [employer] Patient Education 2020 [employer] Additional Information VACCINATE! IT SAVES LIVES! Members of the community who have not yet received the COVID-19 vaccine and would like to receive it can visit one of [facility] vaccine clinics. There are many vaccine clinic locations within the [facility]. For locations and available times, please visit [email or web address]/. It is important to note that some COVID mobile vaccine clinics are held outdoors and may be canceled in rainy or stormy conditions. To learn more about pediatric vaccinations (ages 5-11), we invite you to visit the [facility] webpage. https://www.[facility].org/pages/6252-Iqwxn-Qgtjxgzjimj-Efkuqflzfl-Vykmm-Fky stions.htmlTo learn more about the COVID-19 vaccine, we invite you to visit the CDC website for a list of frequently asked questions.https://www.cdc.gov/coronavirus/2019-ncov/vaccines/faq.html [employer] Patient Portal Access Instructions: Stay connected with your healthcare team and access your personal medical information anytime with the [facility] Patient Portal. Please follow the directions below to create your [facility] account: 1.Access the email account you provided upon registration to the hospital/physician office.2.Look for an invitation email from [facility].3.Open the email and access the invitation link: AcceptInvitation to [facility].4.Fill in the required britt to create your account. To access your account, visit [employer]. Click the blue button labeled Access Patient [...] who you will allowto register on the [facility] Patient Portal for access to your information. You can also access the [facility] Patient Portal on the Pumpic Anywhere dylan. Simply click on Patient Portal and then log into your account. If you would like to receive a full copy of your medical records, please contact the [facility] Medical Records Department by calling [phone], Friday through Friday between 8 a.m. and [...] Call your local pharmacy or go to http://Flash Valet.Shareable Ink/8O6Ge7f to find one close to you.3.Make use of household items: Use cat litter or old coffee grounds to dispose medications if other options arenot available. Mix your drugs with these household products, seal them in an airtight container andthrow it into the garbage. Call [facility]: [phone] to be sure your drugs can be [...] aware that I should contact my doctor. Patient/Comparator Operator Signature: Date/Time: Relationship to Patient: Witness Name/Signature: Date/Time: [facility]08-26-2024 Nurse Progress note I read and agree with Yannick FOX student nursing assessment and vital signs. I was present for all care. Digitally Signed by Elissa De La Rosa Shoe Repair Supervisor on 04/26/2024 11:49 AM [facility]08-26-2024 Pastoral care Progress note Pastoral Care Note Entered On: 04/26/2024 9:52 EDT Performed On: 04/26/2024 9:49 EDT by Shakir Braxton Pastsnyder Care Type of Pastoral Visit : Initial visit Spiritual Care Visit Initiated by : Farm Equipment Assembler Spiritual Care Reason for Visit : General Spiritual Assessment : Spiritual, not Church, Peaceful Spiritual Care Emotional Assessment : Accepting [...] pt identifies self as a hybrid in orthodox and declines further spiritual care support Pastoral Care Visit Length : 5 minute(s) Shakir Braxton - 04/26/2024 9:49 EDT Digitally Signed by Shakir Braxton on 04/26/2024 09:49 AM [facility]08-25-2024 Nurse Progress note Pt frequently encouraged to drink water and use incentive spirometer. Pt usually only drinks cola. at bedside and also updated on plan of care. Digitally Signed by Ines Santiago RN on 04/25/2024 05:12 PM [facility]08-25-2024 Note Date of Service 04/25/2024 Chief Complaint [...] Will need outpatient follow-up with orthospine at [facility] Hypernatremia, sodium 148. Encourage increased water intake. [...] by FORREST CAO on 04/25/2024 11:22 AM [facility]08-24-2024 Note Date of Service 04/04/2024 Chief Complaint [...] Will need outpatient follow-up with orthospine at [place] [facility] Hypertension, blood pressure stable. BPH, continue Flomax Anxiety, continue home medications CODE STATUS: Full code Discussed with Dr. Schmidt Time Spent Total time spent reviewing labs, diagnostics, evaluating the patient, and medical decision makin minutes Digitally Signed by FORREST CAO on 04/24/2024 11:27 AM [facility]08-23-2024 Note. MICRO - Microbiology PROCEDURE: Legionella Urine [...] Locations *1: This test was performed at: [address], [address] [place], [place] [address]65[address]-23-2024 Note. 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 Appointment Type:[facility] 08-23-2024 Note Date of Service 04/23/2024 Chief [...] fracture, hypertension, BPH, anxiety. 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 [...] severe bilateral L4-5, and severe left and ygdx-sm-achjfhdk right at L5-S1. 4. Level by level findings as described. Interpreted by: Modesto Lunsford MD Preliminary Report By: Modesto Lunsford MD Electronically signed By Modesto Lunsford MD Dictated Date: 04/23/2024 10:34:51 AM Prelim Date: 04/23/2024 10:53:15 AM Sign Date: 04/23/2024 10:53:15 AM [facility] Note ORIGINAL EXAMINATION: ONE XRAY VIEW [...] Sign Date: 04/22/2024 10:33:35 PM Ordering Provider: [facility]08-22-2024 Note ORIGINAL EXAMINATION: 3 XRAY VIEWS [...] with vertebral cement augmentation. No significant spondylolisthesis. Orcw-gk-dlrzjsti multilevel degenerative changes with intervertebral disc height [...] Date: 04/22/2024 10:32:15 PM Ordering Provider: [facility] Note Sinus rhythm Borderline repolarization abnormality Compared to ECG at 09/25/2018 15:33:45 BORDERLINE ECG Electronic Signature: SIERRA BLACK DO 04/22/2024 18:29:41[facility] 03-19-2024 Note ORIGINAL HISTORY: Fall in August, [...] Sign Date: 11/18/2023 3:56:09 PM Ordering Provider: [facility]2024 Hospital Discharge instructions Patient Education [...] itchy skin. Ask your healthcare provider about rkss-oqn-djbzpjt pain relievers. If your pain is severe, [...] and which vaccine is best for you. 4690-4685 [employer]. [address] [place] [address]. All rights reserved. This information is not intended as a substitute for professional medical care. Always follow yourhealthcare professional's instructions. Follow Up Care 10/02/2023 19:42:42 With:KATHERINE BRAND Address: [address] [place] [address] [phone] When:2-4 days [facility] 2024 Note Discharge Instructions Thank you for allowing [facility] to assist you with your healthcare needs. The following is importantdischarge information regarding your hospital visit. Diagnosis from Today's Visit Rash Shingles What to Do Next Instructions from Your Care Team No qualifying data available. Post Acute Orders No qualifying data available. You Need to Schedule the Following Appointments Follow Up with KATHERINE BRAND When Within 2-4 days Where: [address] [place] [phone] [phone] Allergies Sallie (Nausea) Claritin Slo-Niacin atenolol buPROPion [...] may report side effects to FDA at 4-228-EOA-4708. What other drugs will affect valacyclovir? Valacyclovir can harm your kidneys, especially if you also use certain medicines for infections, cancer, osteoporosis, organ transplant rejection, bowel disorders, high blood pressure, or pain or arthritis (including Advil, Motrin, and Aleve). Other drugs may affect valacyclovir, including prescription and smfo-bub-ykriuwg medicines, vitamins, and herbal products. Tell your [...] to ensure that the information provided by [employer]. ('Multum') is accurate, up-to-date, and complete, but no guarantee is made to that effect. Drug information contained herein may be time sensitive. [employer] information has been compiled for use by healthcare practitioners and consumers in the [place] and therefore [employer] does not warrant that uses outside of the [place] are appropriate, unless specifically indicated otherwise. [employer] drug information does not endorse drugs, diagnose patients or recommend therapy. [employer] drug information isan informational resource designed to [...] effective or appropriate for any given patient. [employer] does not assume any responsibility for any aspect of healthcare administered with the aid of information [employer] provides. The information contained herein is not intended to cover all possible uses, directions, precautions, warnings, drug interactions, allergic reactions, or adverse effects. If you have questions about the drugs you are taking, check with your doctor, nurse or pharmacist. Copyright 7551-6605 [employer]. Version: .. Revision Date: 10/27/2020. Education Materials Shingles (Herpes [...] itchy skin. Ask your healthcare provider about wxby-ckm-samjafg pain relievers. If your pain is severe, [...] and which vaccine is best for you. 3762-7232 [employer]. [address] [place] [address] 12572. All rights reserved. This information is not intended as a substitute for professional medical care. Always follow yourhealthcare professional's instructions. Additional Information VACCINATE! IT SAVES LIVES! Members of the community who have not yet received the COVID-19 vaccine and would like to receive it can visit one of [facility] vaccine clinics. There are many vaccine clinic locations within the [facility]. For locations and available times, please visit www.[email or web address].[place].gov/. It is important to note that some COVID mobile vaccine clinics are held outdoors and may be canceled in rainy or stormy conditions. To learn more about pediatric vaccinations (ages 5-11), we invite you to visit the [facility] webpage. https://www.[facility].org/pages/8757-Uysud-Aeqbdmbdtbd-Rqurnvsgqb-Ldldb-Tmx stions.htmlTo learn more about the COVID-19 vaccine, we invite you to visit the CDC website for a list of frequently asked questions. https://www.cdc.gov/coronavirus/2019-ncov/vaccines/faq.html [facility] Patient Portal Access Instructions: Stay connected with your healthcare team and access your personal medical information anytime with the [facility] Patient Portal. If you would like a full copy of your medical records please contact the [facility] Medical Records Department Friday through Friday between 8a.m. and 4:30p.m. Please follow the directions below to access the portal: 1.Access the email account you provided upon registration to the [facility].2.Look for an invitation email from [facility].3.Open the email and access the invitation link: Accept Invitation to [facility]4.Fill in the required britt to create your account. Sign into [email or web address] with your username and password that you [...] you will allow to register on the [facility] Patient Portal for access to your information. You can also access the [facility] Patient Portal on the [employer]N Funding. Simply click on Health Records under [employer] and then click on the Pumpic logo. HOW TO SAFELY DISPOSE OF PRESCRIPTION [...] Call your local pharmacy or go to http://bit.Shareable Ink/7U8Hx4r to find one close to you.3.Make use of household items: Use cat litter or old coffee grounds to dispose medications if other options arenot available. Mix your drugs with these household products, seal them in an airtight container andthrow it into the garbage. Call [facility]: [phone] to be sure your drugs can be [...] aware that I should contact my doctor. 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 I CERTIFY THAT POST-HOSPITAL ECF SERVICES ARE REQUIRED TO BE GIVEN ON AN IN-PATIENT BASIS BECAUSE OF THE ABOVE NAMED PATIENT'S NEED FOR ASSISTED CARE ON A CONTINUING BASIS FOR THE CONDITION(S) FOR WHICH HE/SHE WAS RECEIVINGIN-PATIENT HOSPITAL SERVICES PRIOR TO HIS/HER TRANSFER TO THE F. 03/27/25 1224<Electronically signed by Katarina Fabian MD> Diet Diet Order/Speech Therapy: INPATIENT Hospital Diet / Speech Therapy Order(s) 03/23/25 22:15 Diet: Cardiac - Heart Healthy Food consistency:: Regular Liquid Consistency:: Regular/Thin Routine Orders/Code Status Enema Type: Fleetz Enema Frequency: Daily PRN Suppository Frequency: Daily PRN Code Status: Full Code DC O2, CPAP, BIPAP needs Home O2 Discharge instructions: Yes Type of respiratory needs?: Oxygen Oxygen frequency: Continuous Continuous oxygen liters per minute: 2 Wound(s) Intergluteal Cleft: Wound Type: excoriated Therapies Weight Bearing: Weight bearing as tolerated Physical Therapy: Eval and Treat Occupational Therapy: Eval and Treat Problem/Diagnosis (1) Acute on chronic back pain: Status: Acute Code(s): M54.9 - Dorsalgia, unspecified; G89.29 - Other chronic pain Plan #Debility and weakness due to mechanical falls with resultant compression fractures * Patient complaining of acute on chronic back pain. Imaging done showed severe compression fracture of L1 with moderate spinal canal stenosis in addition to moderate to severe compression deformity of T9 vertebral body. * Lumbar spine MRI showed fractures of T11 and L1 vertebral bodies which is chronic with moderate bone marrow edema and foraminal narrowing at L1 and L2 and L3-L4, L4-L5, L5-S1. * Thoracic spine MRI showed straightening of the upper thoracic spine with acute kyphosis of the lower thoracic spine related to multiple fractures and severe exit foraminal narrowing at T9-10. * PT OT on board. Fall precautions. On lidocaine patch as needed as well as IV Toradol and gabapentin. * PT/OT on board. Fall precautions. * orthospine consulted. #Bilateral lower extremity swelling * Etiology is unclear. 2D echo done today showed EF of 55% with no diastolic dysfunction. His got on the phone and give more of his history. She said he had been having this lower extremity edema for some weeks now and was seen at [facility] where he was told that he may need Lasix. She states that he had some cardiac testing done though she does not know the exact ones he had done and these were all negative. He was on Lasix for some time but it did not really help. * Patient currently on IV Lasix. He is diuresing very well. * bilateral LE sweling has resolved. * will switch to PO lasix #Hypoxia: * Patient still on 2 L of oxygen. His lungs have bilateral crackles. He is being diuresed so is not likely fluid overload. * likely has atelectasis. Will repeat CXR today. * encourage incentive spirometry. * Breathing treatments bronchodilators. Titrate oxygen to maintain saturation above 90%. * #Hypokalemia: K is 3.3. Improved from 3.1 yesterday. Hypertension: On Coreg and losartan as well as amlodipine. 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 Will discontinue 120ml EPHP TID with medpass, per pt request. Discharge Plan Admission Admit Date/Time: 03/23/25 20:15 Primary Reason for Your Visit: lower extremity swelling, hypoxia Attending Provider: Katarina Fabian Primary Care Provider: Katherine Brand NP Consulting Providers: Zandra Freire; Merry Pham Instructions Patient Instructions: ED Peripheral Edema, Bilateral Additional Instructions / Restrictions: amlodipine stopped as it can cause lower extremity swelling also Discharge Orders/Prescriptions Prescriptions: New furosemide 40 mg Tablet 40 mg PO DAILY Qty: 30 2RF albuterol sulfate 90 mcg/actuation aerosol powdr breath activated 1 inh inhalation Q6H PRN (Reason: shortness of breath) Qty: 1 0RF potassium chloride [K-Tab] 20 mEq tablet extended release 20 meq PO DAILY Qty: 30 0RF Continued carvedilol 3.125 mg tablet 3.125 mg PO BID Rx Instructions: must administer with a meal/food losartan 25 mg tablet 100 mg PO DAILY calcium carbonate 500 mg calcium (1,250 mg) tablet,chewable 1,000 mg PO QDAY paroxetine HCl 40 mg tablet 40 mg PO QDAY tamsulosin [Flomax] 0.4 mg capsule 0.4 mg PO QDAY buspirone 15 mg tablet 15 mg PO BID cyanocobalamin (vitamin B-12) 1,000 mcg capsule 1,000 mcg PO QDAY melatonin 5 mg capsule 5 mg PO QHS PRN cholecalciferol (vitamin D3) 1,250 mcg (50,000 unit) capsule 1,250 mcg PO QWEEK acetaminophen [Tylenol] 325 mg tablet 650 mg PO Q6H PRN (Reason: pain) hydroxyzine HCl 25 mg tablet 25 mg PO 4X/DAY Discontinued amlodipine 10 mg tablet 10 mg PO QDAY Referrals / Follow Up: Zandra Freire MD [Med Staff - Active Staff] - Within 2 Weeks (see to establish care for back pain) Katherine Brand NP, HOUSEKEEPING ROOM INSPECTOR-C [Primary Care Provider] - Within 1 Week Disposition Disposition (needs filled in before D/C Order can be placed): Care Home Facility 03/27/25 1224 <Electronically signed by Katarina Fabian MD> Cosigner Signature (if applicable): CC: LOIS Brand; Dr. Merry Pham MD; Dr. Zandra Freire MD ~ [facility] Work Phone: Discharge summary Author [facility] Note Date/Time March 27, 2025 1:40 pm [facility] Medical Records Department [address] [place] [address] [place] [address] Discharge Summary 03/27/25 1337 MR#: [id number] Acct: [id number] Name: NANCY SY Rep #:[id number] : [id number] From: Katarina Fabian MD PCP: LOIS Resendiz Status:ADM I N Location: [place] [address] Providers Date of Admission: 03/23/25 Date of Discharge: 03/27/25 Primary Care Physician: LOIS Resendiz Consultations 03/23/25 22:14 Consult: Orthopedics Routine Consulting Provider: Zandra Freire Reason for Consult: Acute on chronic back pain, fall w/ L1 vertebral body comp fx, canal narrow EMERGENT Consult: No MD Notified: Yes Date Notified: 03/23/25 Time Notified: 20:20 Method of Notification: Text Reason For Visit: ACUTE ON CHRONIC BACK PAIN, WORSENING BL LE EDEMA Diagnosis Discharge Diagnosis (1) Acute on chronic back pain: Status: Acute Code(s): M54.9 - Dorsalgia, unspecified; G89.29 - Other chronic pain Plan #Debility and weakness due to mechanical falls with resultant compression fractures * Patient complaining of acute on chronic back pain. Imaging done showed severe compression fracture of L1 with moderate spinal canal stenosis in addition to moderate to severe compression deformity of T9 vertebral body. * Lumbar spine MRI showed fractures of T11 and L1 vertebral bodies which is chronic with moderate bone marrow edema and foraminal narrowing at L1 and L2 and L3-L4, L4-L5, L5-S1. * Thoracic spine MRI showed straightening of the upper thoracic spine with acute kyphosis of the lower thoracic spine related to multiple fractures and severe exit foraminal narrowing at T9-10. * PT OT on board. Fall precautions. On lidocaine patch as needed as well as IV Toradol and gabapentin. * PT/OT on board. Fall precautions. * orthospine consulted. #Bilateral lower extremity swelling * Etiology is unclear. 2D echo done today showed EF of 55% with no diastolic dysfunction. His got on the phone and give more of his history. She said he had been having this lower extremity edema for some weeks now and was seen at [facility] where he was told that he may need Lasix. She states that he had some cardiac testing done though she does not know the exact ones he had done and these were all negative. He was on Lasix for some time but it did not really help. * Patient currently on IV Lasix. He is diuresing very well. * bilateral LE sweling has resolved. * will switch to PO lasix #Hypoxia: * Patient still on 2 L of oxygen. His lungs have bilateral crackles. He is being diuresed so is not likely fluid overload. * likely has atelectasis. Will repeat CXR today. * encourage incentive spirometry. * Breathing treatments bronchodilators. Titrate oxygen to maintain saturation above 90%. * #Hypokalemia: K is 3.3. Improved from 3.1 yesterday. Hypertension: On Coreg and losartan as well as amlodipine. 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 DVT prophylaxis: lovenox COde status: full code Medications at Discharge Home Medications carvedilol 3.125 mg tablet 3.125 mg PO BID 07/09/23 buspirone 15 mg tablet 15 mg PO BID 07/26/24 calcium carbonate 1,000 mg PO QDAY 07/26/24 cyanocobalamin (vitamin B-12) 1,000 mcg capsule 1,000 mcg PO QDAY 07/26/24 losartan 25 mg tablet 100 mg PO DAILY 07/26/24 melatonin 5 mg capsule 5 mg PO QHS PRN Sleep 07/26/24 paroxetine HCl 40 mg tablet 40 mg PO QDAY 07/26/24 tamsulosin 0.4 mg capsule (Flomax) 0.4 mg PO QDAY 07/26/24 cholecalciferol (vitamin D3) 1,250 mcg (50,000 unit) capsule 1,250 mcg PO QWEEK 09/23/24 acetaminophen 325 mg tablet (Tylenol) 650 mg PO Q6H PRN pain 03/23/25 hydroxyzine HCl 25 mg tablet 25 mg PO 4X/DAY Anxiety 03/24/25 albuterol sulfate 90 mcg/actuation breath activated powder inhaler 1 inh inhalation Q6H PRN shortness of breath #1 ea 03/27/25 furosemide 40 mg tablet 40 mg PO DAILY #30 tabs 03/27/25 potassium chloride 20 mEq tablet,extended release (K-Tab) 20 meq PO DAILY #30 tabs 03/27/25 Hospital Course Operations None Procedures 2-D Echocardiogram Summary of Care Provided Minutes Spent on Discharge: 45 Hospital Course: Patient is a 80-year-old male with past medical history as outlined who was admitted through the ED on 03/23/2025 with complaint of progressively worsening swelling of his lower extremities. He had recently been started on Lasix about 2 weeks prior to admission. He used it for 3 days but said his symptoms did notimprove so he stopped the Lasix. He had a history of back pain and balance issues and so went back to the ED after he fell. He said the back pain was worsened by activity. He went back to the ED and proBNP was 417. Bilateral lower extremity duplex were negative and CT brain showed no acute intracranial pathology. CT of the lumbar spine showed severe compression deformity of the [id number] body which was likely chronic and resulting in moderate spinal canal stenosis and CT of the thoracic spine showed no acute fracture and showed moderate to severe compression deformity at T9 vertebral body with inability to rule out acute fracture. Chest x-ray showed no acute cardiopulmonary findings. He was admitted and managed for bilateral lower extremity edema. Patient did develop some hypoxia during this admission requiring 2 L of oxygen. He was diuresed with IV Lasix 40 mg twice daily. He did have 2D echo which showed EF of 55% with no evidence of diastolic dysfunction and no regional wall motion abnormalities noted and pulmonary artery systolic pressure of 35 mmHg. The lower extremity swelling subsequently resolved. Orthopedic surgery was consulted and recommended patient follow-up on outpatient basis with spine surgery. Patient was discharged to transitional care unit on 03/27/2025 on p.o. Lasix 40 mg daily with potassium supplementation. His amlodipine was discontinued as it could be the cause of his lower extremity swelling. He is tofollow-up with his primary care doctor within 1 to 2 weeks. Patient did have walking pulse ox and required 2 L of oxygen. Patient seen and examined prior to discharge. He had no active complaints. He still felt weak due to the back pain. He was encouraged to use his incentive spirometer. Labs and vitals reviewed. Home medication reviewed and reconciled. Physical Exam Const alert, oriented x3 and no apparent distress Constitutional Narrative: frail General Appearance: cooperative HEENT normocephalic and head/scalp atraumatic Mouth: oral and palatal mucosa normal Eyes PERRL, EOMs intact bilaterally and conjunctivae normal Neck no lymphadenopathy and supple Lymph Lymphatic: no lymphadenopathy noted and no lymphedema noted Resp Resp Narrative: mildly diminished breath sounds bibasally, Cardio regular rate, regular rhythm, S1 normal heart sound, S2 normal heart sound and no murmurs GI normal to inspection, nondistended, normoactive bowel sounds and soft to palpation Extremity normal to inspection, full ROM and no clubbing, cyanosis or edema Extremity Narrative: bilateral LE swelling has resolved. General Extremity: no tenderness to palpation of joints or extremities Skin Skin Narrative: as under extremities. Neuro oriented x3, CN's II-XII intact bilaterally and moves all extremities Sensorium / Orientation: awake Motor Exam: general weakness Psych thought process normal and cooperative Mood & Affect: anxious Weight / BMI Weight Weight: 163 lb 2.273 oz Body Mass Index (BMI) 25.5 ABG / Lab / Microbiology Data 03/27/25 05:25 03/27/25 05:25 Laboratory: Laboratory Results - last 24 hr 03/27/25 05:25: WBC 8.2, RBC 3.58 L, Hgb 11.5 L, Hct 33.8 L, MCV 94.4 H, MCH 32.1 H, MCHC 34.0, RDW Std Deviation 45.9 H, RDW Coeff of Stefanie 13.4, Plt Count 211, MPV 9.1, Immature Gran % (Auto) 0.500, Neut % (Auto) 69.0, Lymph % (Auto) 12.6 L, Elliott % (Auto) 11.8 H, Eos % (Auto) 5.7 H, Baso % (Auto) 0.4, Absolute Neuts (auto) 5.7, Absolute Lymphs (auto) 1.03, Nucleated RBC % 0, Sodium 145, Potassium 3.0 L, Chloride 104, Carbon Dioxide 32.2 H, Anion Gap 8, BUN 18, Creatinine 0.67 L, Estim Creat Clear Calc 70.00, Est GFR (MDRD) Non-Af 95, BUN/Creatinine Ratio 26.9 H, Glucose 95, Calcium 8.5 Radiography Diagnostic Testing: Radiology Impression Chest X-Ray 03/26/25 15:20 IMPRESSION: Cardiomegaly with mild congestion. Reading Location: [facility] D/C Instructions Discharge Activity: Return to Normal Activity Weight Bearing Status: Weight bearing as tolerated Call your doctor if you observe: Fever of 101 or Higher, Shortness of breath, Dizziness, Swelling in the ankles and Chest pain DC O2, CPAP, BIPAP Needs Home O2 Discharge instructions: Yes Type of respiratory needs?: Oxygen Oxygen frequency: Continuous Continuous oxygen liters per minute: 2 DC home with Oxygen: Yes Home O2 MD Review: I have reviewed the oxygen testing, and the patient qualifies for home oxygen equipment and portability. The patient is mobile in the home and the community. Meaningful Use Info Meaningful Use Meaningful Use Diagnoses (Choose all that apply): None applicable Discharge Plan Admission Admit Date/Time: 03/23/25 20:15 Primary Reason for Your Visit: lower extremity swelling, hypoxia Attending Provider: Katarina Fabian Primary Care Provider: Katherine Brand NP Consulting Providers: Zandra Freire; Merry Pham Instructions Patient Instructions: ED Peripheral Edema, Bilateral Additional Instructions / Restrictions: amlodipine stopped as it can cause lower extremity swelling also Discharge Orders/Prescriptions Prescriptions: New furosemide 40 mg Tablet 40 mg PO DAILY Qty: 30 2RF albuterol sulfate 90 mcg/actuation aerosol powdr breath activated 1 inh inhalation Q6H PRN (Reason: shortness of breath) Qty: 1 0RF potassium chloride [K-Tab] 20 mEq tablet extended release 20 meq PO DAILY Qty: 30 0RF Continued carvedilol 3.125 mg tablet 3.125 mg PO BID Rx Instructions: must administer with a meal/food losartan 25 mg tablet 100 mg PO DAILY calcium carbonate 500 mg calcium (1,250 mg) tablet,chewable 1,000 mg PO QDAY paroxetine HCl 40 mg tablet 40 mg PO QDAY tamsulosin [Flomax] 0.4 mg capsule 0.4 mg PO QDAY buspirone 15 mg tablet 15 mg PO BID cyanocobalamin (vitamin B-12) 1,000 mcg capsule 1,000 mcg PO QDAY melatonin 5 mg capsule 5 mg PO QHS PRN cholecalciferol (vitamin D3) 1,250 mcg (50,000 unit) capsule 1,250 mcg PO QWEEK acetaminophen [Tylenol] 325 mg tablet 650 mg PO Q6H PRN (Reason: pain) hydroxyzine HCl 25 mg tablet 25 mg PO 4X/DAY Discontinued amlodipine 10 mg tablet 10 mg PO QDAY Referrals / Follow Up: Zandra Freire MD [Med Staff - Active Staff] - Within 2 Weeks (see to establish care for back pain) Katherine Brand NP, HOUSEKEEPING ROOM INSPECTOR-C [Primary Care Provider] - Within 1 Week Disposition Disposition (needs filled in before D/C Order can be placed): Care Home Facility Charges/Coding Visit Charges Inpatient E&M: 97146 Disch Hosp >30min 03/27/25 1344 <Electronically signed by Katarina Fabian MD> Cosigner Signature (if applicable): CC: HOUSEKEEPING ROOM INSPECTOR-C Katherine Brand; Dr. Katarina Fabian MD~ Signed [facility] Work Phone: Evaluation + Plan note No data available for this section [facility] Evaluation + Plan note Future Appointments Appointment Date:12/10/2022 02:30:00 PM Scheduled Provider:KATHERINE BRAND Location:[facility] Appointment Type:PC OV Follow Up [facility] Evaluation + Plan note Future Appointments Appointment Date:06/10/2023 02:30:00 PM Scheduled Provider:KATHERINE BRAND APRN-RIP AND GROOVE MACHINE OPERATOR Location:[facility] Appointment Type:PC OV [facility] Evaluation + Plan note Future Appointments Appointment Date:04/24/2023 01:30:00 PM Scheduled Provider:KATHERINE BRAND APRN-BERTHA Location:[facility] Appointment Type:PC OV Appointment Date:06/10/2023 02:30:00 PM Scheduled Provider:KATHERINE BRAND APRN-RIP AND GROOVE MACHINE OPERATOR Location:[facility] Appointment Type:PC OV Future Scheduled Tests Laboratory* Protein Electrophoresis Urine 04/15/23 [facility] evaluation + Plan note Future Appointments Appointment Date:10/23/2023 02:00:00 PM Scheduled Provider:KATHERINE BRAND PARKING OFFICER-RIP AND GROOVE MACHINE OPERATOR Location:[facility] Appointment Type:PC OV Future Scheduled Tests Laboratory* Ferritin 10/12/23 * Iron Level 10/12/23 * Protein Electrophoresis Urine 04/15/23 * Vitamin B12 Level 10/12/23 * Complete Blood Count 10/12/23 * Lipid Profile 10/12/23 * Complete Metabolic Panel 10/12/23 [facility] Evaluation + Plan note Future Appointments Appointment Date:10/21/2023 03:00:00 PM Scheduled Provider:KATHERINE BRAND PARKING OFFICER-RIP AND GROOVE MACHINE OPERATOR Location:[facility] Appointment Type:PC OV Future Scheduled Tests Laboratory* Ferritin 10/12/23 * Iron Level 10/12/23 * Protein Electrophoresis Urine 04/15/23 * Vitamin B12 Level 10/12/23 * Complete Blood Count 10/12/23 * Lipid Profile 10/12/23 * Complete Metabolic Panel 10/12/23 Radiology* MRI Spine Lumbar w/o Contrast 10/15/23 [facility] evaluation + Plan note Future Appointments Appointment Date:03/09/2024 03:30:00 PM Scheduled Provider:KATHERINE BRAND PARKING OFFICER-RIP AND GROOVE MACHINE OPERATOR Location:[facility] Appointment Type:PC OV Future Scheduled Tests Laboratory* Ferritin 10/12/23 * Iron Level 10/12/23 * Protein Electrophoresis Urine 04/15/23 * Vitamin B12 Level 10/12/23 * Complete Blood Count 10/12/23 * Lipid Profile 10/12/23 * Complete Metabolic Panel 10/12/23 [facility] evaluation + Plan note Future Appointments Appointment Date:08/18/2024 03:00:00 PM Scheduled Provider:KATHERINE BRAND PARKING OFFICER-RIP AND GROOVE MACHINE OPERATOR Location:[facility] Appointment Type:PC OV [facility] [place] aluation + Plan note Future Appointments Appointment Date:07/08/2024 03:00:00 PM Scheduled Provider:KATHERINE BRAND Location:[facility] [place] Appointment Type:PC OV Appointment Date:08/18/2024 03:00:00 PM Scheduled Provider:KATHERINE BRAND Location:[facility] Appointment Type:PC OV Future Scheduled Tests Radiology* BD Bone Density DEXA Axial Skeleton Adult (21 yrs or older) 06/03/24 [facility] Evaluation + Plan note Future Appointments Appointment Date:07/08/2024 03:00:00 PM Scheduled Provider:KATHERINE BRAND Location:[facility] Appointment Type:PC OV Appointment Date:08/18/2024 03:00:00 PM Scheduled Provider:KATHERINE BRAND Location:[facility] Appointment Type:PC OV [facility] Evaluation + Plan note Future Appointments Appointment Date:08/05/2024 02:30:00 PM Scheduled Provider:KATHERINE BRAND APRN-BERTHA Location:[facility] Appointment Type:PC OV Future Scheduled Tests Laboratory* Vitamin D Level 07/25/24 [facility] Evaluation + Plan note Future Appointments Appointment Date:11/03/2024 03:00:00 PM Scheduled Provider:KATHERINE BRAND APRN-BERTHA Location:[facility] Appointment Type:PC OV Future Scheduled Tests Laboratory* Prostate Specific Antigen 11/03/24 * Complete Blood Count 11/03/24 * Lipid Profile 11/03/24 * Vitamin D Level 11/03/24 * Vitamin D Level 07/25/24 * Complete Metabolic Panel 11/03/24 [facility] Evaluation + Plan note Future Appointments Appointment Date:11/03/2024 03:00:00 PM Scheduled Provider:KATHERINE BRAND APRN-BERTHA Location:[facility] Appointment Type:PC OV Diagnostic Tests Pending * Testosterone,Free and Total 10/08/24 Future Scheduled Tests Laboratory* Vitamin D Level 11/03/24 * Vitamin D Level 07/25/24 [facility] Evaluation + Plan note Future Appointments Appointment Date:11/03/2024 03:00:00 PM Scheduled Provider:KATHERINE BRAND APRN-BERTHA Location:[facility] Appointment Type:PC OV Future Scheduled Tests Laboratory* Vitamin D Level 11/03/24 * Vitamin D Level 07/25/24 [facility] Evaluation + Plan note Future Appointments Appointment Date:03/23/2025 02:30:00 PM Scheduled Provider:KATHERINE BRAND APRN-BERTHA Location:[facility] Appointment Type:PC OV Appointment Date:05/05/2025 03:00:00 PM Scheduled Provider:KATHERINE BRAND APRN-BERTHA Location:[facility] Appointment Type:PC OV Future Scheduled Tests Laboratory* Vitamin D Level 11/03/24 * Vitamin D Level 07/25/24 [facility] Evaluation + Plan note Future Appointments Appointment Date:03/23/2025 02:30:00 PM Scheduled Provider:KATHERINE BRAND APRN-BERTHA Location:[facility] Appointment Type:PC OV Appointment Date:05/05/2025 03:00:00 PM Scheduled Provider:KATHERINE BRAND APRN-BERTHA Location:[facility] Appointment Type:PC OV Future Scheduled Tests Laboratory* Basic Metabolic Panel 03/24/25 * Vitamin D Level 11/03/24 * Vitamin D Level 07/25/24 [facility] Evaluation noteNo assessment information available [facility] Work Phone: Evaluation note* Diagnosis Onset Date Resolution Status Admit Date Acute on chronic back pain acute March 23, 2025 8:15pm [facility] Work Phone: Hospital Discharge instructions No data available for this section [facility] Hospital Discharge instructionsAdditional Instructions amlodipine stopped as it can cause lower extremity swelling also [facility]: [facility] Progress note No data available for this section [facility] Reason for referral (narrative)No reason for referral [facility] Work Phone: Chief Complaint and Reason for Visit Chief Complaint THORACIC 11 KYPHOPLA STY Chief Complaint Admit Date ACUTE ON CHRONIC BACK PAIN, WORSENING BL LE EDEMA March 23, 2025 8:15pm Reason for Visit Admit Date Acute on chronic back pain March 23 8:15pm Chief Complaint Admit Date ACUTE ON CHRONIC BACK PAIN, WORSENING BL LE EDEMA March 23, 2025 8:15pm ACUTE ON CHRONIC BACK PAIN, WORSENING BL LE EDEMA March 24, 2025 2:57pm ACUTE ON CHRONIC BACK PAIN, WORSENING BL LE EDEMA March 25, 2025 10:10am ACUTE ON CHRONIC BACK PAIN, WORSENING BL LE EDEMA March 25, 2025 1:07pm ACUTE ON CHRONIC BACK PAIN, WORSENING BL LE EDEMA March 26, 2025 10:57am ACUTE ON CHRONIC BACK PAIN, WORSENING BL LE EDEMA March 27, 2025 12:23pm Reason for Visit Admit Date Acute on chronic back pain March 23 8:15pm History of kyphoplasty March 23, 2025 8 :15pm Lumbar compression fracture March 23, 025 8:15pm Thoracic compression fracture March 23, 2025 8:15pm Thoracolumbar kyphosis March 23, 2025 8 :15pm Osteoporosis March 23, 2025 8:15 pm Summary Purpose Family History Relationship Condition Age at Onset Recorded Date/T naveed father Alcoholism Unknown brother Depression Unknown Attempted suicide Unknown grandmother Parkinson's disease Unknown sister Osteoporosis Unknown mother Non-alcoholic cirrhosis Unknown No Family History Records Found Advance Directives Advance Directive Response Recorded Date/ Time Do you have a Healthcare Power of Extractor And Wringer Operator? No March 23, 2025 4:56pm Advance Directive Response Recorded Date/ Time Do you have a Healthcare Power of Extractor And Wringer Operator? No March 23, 2025 10:27pm Additional Source Comments Care Team (unrecognized sect ion and content) Team Status: Active Member Role Status Dates Dr. Araceli Guerrero MD Family Provider Active Dr. Araceli Guerrero MD Primary Care Provider Active Team Status: Inactive Member Role Status Dates Dr. Araceli Guerrero MD Primary Care Provider Active Dr. Brody Pate DO Attending Provider Active Team Status: Active Member Role/Relationship Status Dates Katherine Brand HOUSEKEEPING ROOM INSPECTOR, HOUSEKEEPING ROOM INSPECTOR-C Primary Care Provider Active Team Status: Active Member Role/Relationship Status Dates Katherine Brand HOUSEKEEPING ROOM INSPECTOR, HOUSEKEEPING ROOM INSPECTOR-C Primary Care Provider Active Start: March 23, 2025 Dr. Marco Camacho DO Emergency Provider Active Start: March 23, 2025 Dr. Merry Pham MD Admit Provider Active St art: March 23, 2025 Dr. Merry Pham MD Attending Provider Active Start: March 23, 2025 Dr. Merry Pham MD Other Provider Active St art: March 23, 2025 Team Status: Inactive Member Role/Relationship Status Dates Katherine Brand HOUSEKEEPING ROOM INSPECTOR, HOUSEKEEPING ROOM INSPECTOR-C Primary Care Provider Active Start: March 23, 2025 End: March 27, 2025 Dr. Marco Camacho DO Emergency Provider Active Start: March 23, 2025 End: March 27, 2025 Dr. Merry Pham MD Admit Provider Active St art: March 23, 2025 End: March 27, 2025 Dr. Merry Pham MD Other Provider Active St art: March 23, 2025 End: March 27, 2025 Dr. Zandra Freire MD Other Provider Active Star t: March 23, 2025 End: March 27, 2025 Dr. Katarina Fabian MD Attending Provider Active Start: March 23, 2025 End: March 27, 2025 Team Status: Active Member Role/Relationship Status Dates Katherine Brand HOUSEKEEPING ROOM INSPECTOR, HOUSEKEEPING ROOM INSPECTOR-C Primary Care Provider Active Start: March 24, 2025 Dr. Shady Loving MD Attending Provider Activ e Start: March 24, 2025 Team Status: Active Member Role/Relationship Status Dates Katherine Brand HOUSEKEEPING ROOM INSPECTOR, HOUSEKEEPING ROOM INSPECTOR-C Primary Care Provider Active Start: March 24, 2025 Dr. Marco Camacho DO Emergency Provider Active Start: March 24, 2025 Dr. Merry Pham MD Admit Provider Active St art: March 24, 2025 Dr. Merry Pham MD Other Provider Active St art: March 24, 2025 Dr. Zandra Freire MD Other Provider Active Star t: March 24, 2025 Dr. Katarina Fabian MD Attending Provider Active Start: March 24, 2025 Dr. Katarina Fabian MD Other Provider Active St art: March 24, 2025 Team Status: Active Member Role/Relationship Status Dates Katherine Brand HOUSEKEEPING ROOM INSPECTOR, HOUSEKEEPING ROOM INSPECTOR-C Primary Care Provider Active Start: March 25, 2025 Dr. Marco Camacho DO Emergency Provider Active Start: March 25, 2025 Dr. Merry Pham MD Admit Provider Active St art: March 25, 2025 Dr. Merry Pham MD Other Provider Active St art: March 25, 2025 Dr. Zandra Freire MD Other Provider Active Star t: March 25, 2025 Dr. Katarina Fabian MD Attending Provider Active Start: March 25, 2025 Dr. Katarina Fabian MD Other Provider Active St art: March 25, 2025 Team Status: Active Member Role/Relationship Status Dates Katherine Brand NP, HOUSEKEEPING ROOM INSPECTOR-C Primary Care Provider Active Start: March 25, 2025 Dr. Marco Camacho DO Emergency Provider Active Start: March 25, 2025 Dr. Merry Pham MD Admit Provider Active St art: March 25, 2025 Dr. Merry Pham MD Other Provider Active St art: March 25, 2025 Dr. Zandra Freire MD Attending Provider Active Start: March 25, 2025 Dr. Zandra Freire MD Other Provider Active Star t: March 25, 2025 Dr. Katarina Fabian MD Other Provider Active St art: March 25, 2025 Team Status: Active Member Role/Relationship Status Dates Katherine Brand NP, HOUSEKEEPING ROOM INSPECTOR-C Primary Care Provider Active Start: March 26, 2025 Dr. Marco Camacho DO Emergency Provider Active Start: March 26, 2025 Dr. Merry Pham MD Admit Provider Active St art: March 26, 2025 Dr. Merry Pham MD Other Provider Active St art: March 26, 2025 Dr. Zandra Freire MD Other Provider Active Star t: March 26, 2025 Dr. Katarina Fabian MD Attending Provider Active Start: March 26, 2025 Dr. Katarina Fabian MD Other Provider Active St art: March 26, 2025 Team Status: Active Member Role/Relationship Status Dates Katherine Brand HOUSEKEEPING ROOM INSPECTOR, HOUSEKEEPING ROOM INSPECTOR-C Primary Care Provider Active Start: March 27, 2025 Dr. Marco Camacho DO Emergency Provider Active Start: March 27, 2025 Dr. Merry Pham MD Admit Provider Active St art: March 27, 2025 Dr. Merry Pham MD Other Provider Active St art: March 27, 2025 Dr. Zandra Freire MD Other Provider Active Star t: March 27, 2025 Dr. Katarina Fabian MD Attending Provider Active Start: March 27, 2025 Dr. Katarina Fabian MD Other Provider Active St art: March 27, 2025 Goals (unrecognized section and content) Goals may be documented in a n alternate section (unrecognized sect ion and content) No Status Records FoundNo Status Records FoundNo Status Records Found INFORMATION SOURCE (unrecogn ized section and content) DATE CREATED AUTHOR 05/06/2024 [facility] ([place]) DATE CREATED AUTHOR AUTHOR'S ORGANIZ ATION 03/13/2025 [facility] DATE CREATED AUTHOR AUTHOR'S ORGANIZ ATION 03/27/2025 [facility] FOR RECORDS PERTAINING TO PATIENTS WHO ARE [...] BE BASED ON THE PRIMARY CLINICAL RECORDS. Matter and Form [facility]. provides no warranty or guarantee of the accuracy or completeness of information in this document.
[2025-03-27 14:53] VITALS: BP 132/70; PULSE 97; RESP 18; TEMP 36.9; O2SAT 97; BMI 24.9
--- NOTE | 2025-03-27 17:18 | HP.PCM_ITS ---
[facility] - General General Date of Admission: 03/27/25 Date of Service: 03/28/25 Chief Complaint: Here for rehabilitation. HPI Narrative NANCY SY, is a 80 Male who presents with followin03/23/2025 [facility] ED edema. Worsening bilateral lower extremity swelling for 2 weeks, took water pill for 3 days, did not help. Difficulty walking, balance issues, History of chronic back pain. Chest X-ray negative, CT brain negative, CT thoracic spine T9 compression fracture. Doppler ultrasound bilateral lower extremity negative DVT. 03/23/2025 Admit [facility]. Lasix IV, POLLY compression wraps, for bilateral lower extremity edema. Lidoderm, Toradol IV, Gabapentin 100mg tid, PT/OT/CM, MRI TL spine, Orthopedics consult, for acute on chronic back pain. Trend troponin for elevated troponin. 03/23/2025 Echo EF 55%. Left atrium mildly enlarged. 03/24/2025 Lower extremity swelling. MRI TL spine, Ortho, Toradol IV, Gabapentin, Lidoderm for back pain. Lasix IV, bilateral lower extremity POLLY wraps for lymphedema. 03/24/2025 MRI thoracic spine: IMPRESSION: 1. Straightening of the upper thoracic spine. Acute kyphosis lower thoracic spine related to multiple fractures. 2. There is contact of the spinal cord by the T9 vertebral body with no abnormal signal seen. 3. Severe exit foraminal narrowing T9/10. Correlate with radiculopathy at T9. 03/24/2025 MRI lumbar spine: IMPRESSION: 1. Fractures of T11 and L1 vertebral bodies. Very mild bone marrow edema involving the T11 vertebral body along with evidence of prior vertebroplasty suggesting it is chronic. Moderate bone marrow edema involving the L1 vertebral body. This is likely subacute to chronic. Retropulsion of T11 of approximately 4 mm, and retropulsion of L1 of approximately 7 mm. This contacts the distal cord. No abnormal cord signal seen. 2. Multilevel degenerative changes throughout the remainder of the lumbar spine. Central stenosis at L4/5. Exit foraminal narrowing at L1/2 on the right, L3/4, L4/5 and L5/S1 as above. 03/25/2025 Short of breath, like he was dying, Oxygen 2 liters, negative balance 1.79 Liters. K 3.1, replete. PT/OT for low back pain. Swelling improved. Aerosols, bronchodilators, oxygen for acute respiratory failure 2/2 atelectasis. 03/26/2025 Bilateral lower extremity swelling markedly improved. Bibasilar crackles 2/2 atelectasis, does not like incentive spirometry. PT/OT, pain control for back pain. Change IV Lasix to PO Lasix fo bilateral lower extremity edema. Oxygen 2 liters per nasal cannula. 03/27/2025 Admit to TCU with debility, here for rehabilitation, strengthening, prior to discharge home with . REPLACED BY [facility] Medical History (Updated 03/27/25 @ 17:[address] Sony Gould MD) CKD (chronic kidney disease), stage II Former tobacco use BPH (benign prostatic hyperplasia) HLD (hyperlipidemia) Chronic anemia Pancreatitis Osteoporosis Osteopenia Kidney stones Arthritis Allergies Hemorrhoids Hypertension Home Medications ?Medication ?Instructions ?Recorded ?Last Taken ?Type carvedilol 3.125 mg tablet 3.125 mg PO BID BP 07/09/23 03/27/25 08:40 History buspirone 15 mg tablet 15 mg PO BID Mood 07/26/24 0 03/27/25 08:40 History calcium carbonate 1,000 mg PO QDAY Supplement 07/26/24 03/22/25 History cyanocobalamin (vitamin B-12) 1,000 mcg PO QDAY Supple ment 07/26/24 03/22/25 History 1,000 mcg capsule losartan 25 mg tablet 100 mg PO DAILY BP 07/26/24 03/27/25 08:40 History melatonin 5 mg capsule 5 mg PO QHS PRN Sleep 03/22/25 History paroxetine HCl 40 mg tablet 40 mg PO QDAY Mood 4 03/27/25 08:40 History tamsulosin 0.4 mg capsule (Flomax) 0.4 mg PO QDAY Urin franci Retention 07/26/24 03/27/25 08:40 History cholecalciferol (vitamin D3) 1,250 1,250 mcg PO QWEEK Supplement 09/23/24 Unknown History mcg (50,000 unit) capsule acetaminophen 325 mg tablet 650 mg PO Q6H PRN pain 03/23/25 History (Tylenol) hydroxyzine HCl 25 mg tablet 25 mg PO 4X/DAY Anxiety 0 03/24/25 03/27/25 History albuterol sulfate 90 mcg/actuation 1 inh inhalation Q6 H PRN shortness 03/27/25 Unknown Rx breath activated powder inhaler of breath #1 ea furosemide 40 mg tablet 40 mg PO DAILY Edema #30 tab s 03/27/25 03/27/25 10:20 Rx potassium chloride 20 mEq 20 meq PO DAILY Supplement # 30 tabs 03/27/25 Unknown Rx tablet,extended release (K-Tab) Allergy/AdvReac Type Severity Reaction Status Date / Time No Known Allergies Allergy Verified 03/23/25 16:56 Family History Father Alcoholism Brother Depression Suicide attempt Grandmother Parkinson disease Sister Osteoporosis Mother Non-alcoholic cirrhosis Surgical History S/P tonsillectomy S/P appendectomy Hx of cholecystectomy Social History household members: spouse Smoking Status: Former smoker how long ago did patient quit smoking: Quit pipe smoking 15 yrs prior, smoked since 14 ~20 refill/day. alcohol intake: never substance use type: does not use ROS Constitutional Constitutional: Reports weakness; Denies chills, fever(s) or weight gain ENT HEENT: Denies headache(s), nasal congestion or nasal discharge Cardiovascular Cardiovascular: Denies chest pain or palpitations Respiratory/Chest Respiratory/Chest: Denies cough, excessive phlegm production or shortness of breath with exertion Gastrointestinal Gastrointestinal: Denies abdominal pain, nausea or vomiting Genitourinary Genitourinary: Denies dysuria Musculoskeletal Musculoskeletal: Denies joint pain or joint swelling Integumentary Integumentary: Denies rash or wounds Neurologic Neurologic: Denies focal weakness, numbness or tingling Psychiatric Psychiatric: Denies anxiety, auditory hallucinations, depression, homicidal ideation or suicidal ideation Vital Signs Vital Signs Vital Signs: 03/27/25 14:53 03/27/25 14:53 Temperature 98.4 F Temperature Source Temporal Pulse Rate 97 97 Pulse Rhythm Regular Pulse Strength Normal (2+) Respiratory Rate 18 Respiratory Effort Short of Breath Respiratory Depth Normal Blood Pressure 132/70 H Blood Pressure Mean 90 Blood Pressure Source Monitor Blood Pressure Position Semi-Fowlers Blood Pressure Location Right Arm Pulse Ox 97 Oxygen Delivery Method Nasal Cannula Nasal Cannula Oxygen Flow Rate (L/min) 2 2 Weight Weight: 72.212 kg Body Mass Index (BMI) 24.9 Physical Exam Const alert General Appearance: cooperative HEENT normocephalic Eyes PERRL and EOMs intact bilaterally Neck supple, no JVD and no carotid bruits Resp normal respiratory effort, normal air movement and clear to auscultation bilaterally Cardio regular rate and regular rhythm GI normal to inspection, nondistended, normoactive bowel sounds, non-tender and non-distended Extremity normal capillary refill General Extremity: Negative for edema Skin no rashes or lesions noted General Skin Exam: no breakdown Psych affect normal Appearance: appropriate Results Lab / Micro Data 03/28/25 05:08 03/28/25 05:08 Assessment & Plan Assessment/Plan (1) Debility: (2) Bilateral lower extremity edema: (3) Acute respiratory failure with hypoxia: (4) Atelectasis: (5) Compression fracture of T9 vertebra: (6) Compression fracture of L1 lumbar vertebra: (7) Osteoporosis: QUALIFIERS: Osteoporosis type: age-related Presence of current pathological fracture: without current pathological fracture Qualified Code(s): M81.0 - Age-related osteoporosis without current pathological fracture (8) Essential (primary) hypertension: (9) Anxiety: (10) B12 deficiency: (11) Insomnia: (12) Depression: (13) BPH (benign prostatic hyperplasia): (14) Vitamin D deficiency: PLAN: Plan 80 year old male with below past medical history hospitalized for bilateral lower extremity edema (dvt ruled out), acute respiratory failure with hypoxia 2/2 atelectasis, complicated by T9 compression fracture, L1 compression fracture, elevated troponin 2/2 demand ischemia, admitted to TCU with debility, here for rehabilitation, strengthening, prior to discharge home with . * Debility - PT/OT. * Pain - Tylenol 1000mg q6 prn pain (1-10). * Bowel - senna/colace 1 tablet bid, Dulcolax 10mg pr daily prn. * Adult immunization - Administer pneumonia vaccine, covid vaccine, flu vaccine as appropriate. * DVT prophylaxis - Lovenox 40mg sc daily. * Compression fracture T9, L1 - Dr. Torres as outpatient. * Atelectasis - Albuterol 2.5mg neb q6 prn * Calcium deficiency - Calcium 1000mg po lunch. * Hypertension - Coreg 3.125mg bidcm, Losartan 100mg daily. * Vitamin B12 deficiency - B12 1000mcg daily. * Vitamin D deficiency - D 1.25mg qweek. * Edema - Furosemide 40mg daily. * Anxiety - Hydroxyzine 25mg 4x/day. * Insomnia - Melatonin 5mg qhs. * Hypokalemia - K 3.2, KCL 40meq po x 1 dose, KCL 20meq twice daily, trend bmp. * BPH - Tamsulosin 0.4mg daily. The following psychotropic medication was present on admission: Buspar 15mg bid. Psychotropic medication therapy is indicated for a diagnosis of: Anxiety. Based on my clinical evaluation, continuation of the medication is necessary at this time. Gradual dose reduction plan (select one): ____ GDR will be attempted. Will monitor patient symptoms and behaviors in response to GDR. __x__ GRD contraindicated. 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 The following psychotropic medication was present on admission: Paroxetine 40mg daily. Psychotropic medication therapy is indicated for a diagnosis of: Major Depression. Based on my clinical evaluation, continuation of the medication is necessary at this time. Gradual dose reduction plan (select one): ____ GDR will be attempted. Will monitor patient symptoms and behaviors in response to GDR. __x__ GRD contraindicated. 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
[2025-03-27] MEDS: MELATONIN 10 MG TABLET 5 MG PO (21:10)
[2025-03-27] MEDS: hydrOXYzine PAM 25 MG Capsule PO (21:11)
[2025-03-27] MEDS: Senna/Docusate Sodium 1 Tablet PO (21:11)
[2025-03-27] MEDS: 0.9% Saline Lock 10 ML Syringe IV (21:12)
[2025-03-27 21:19] VITALS: PULSE 89; O2SAT 96
[2025-03-28 05:15] LABS: Hematocrit 33.6 % (40-54); Hemoglobin 11.1 g/dL (13.0-16.5); Immature Granulocytes Count 0.020 X10^3/uL (0.0-0.0); Mean Corp Hgb Conc 33.0 g/dL (32-36); Mean Corpuscular Volume 96.0 fL (80-94); Mean Platelet Vol. 8.4 fl (6.2-12.0); NRBC Flagged by Analyzer 0 % (0-5); Platelet Count 192 K/mm3 (150-450); RBC Distribution Width CV 13.4 % (11.6-14.6); RBC Distribution Width SD 47.9 fl (35.1-43.9); Red Blood Count 3.50 M/mm3 (4.6-6.2); White Blood Count 6.4 K/mm3 (4.4-11.0)
[2025-03-28] MEDS: hydrOXYzine PAM 25 MG Capsule PO ×2 (05:19→22:52)
[2025-03-28 06:03] LABS: Anion Gap 9 (5-15); BUN 17 mg/dL (4-19); BUN/Creat Ratio 24.8 RATIO (10-20); Calcium,Total 8.8 mg/dL (7.6-11.0); Carbon Dioxide 31.7 mmol/L (21.0-32.0); Chloride 103 mmol/L (98-108); Estimated Creatinine Clearance 70.00 ml/min (50-250); Glucose 103 mg/dL (70-99); Potassium 3.2 mmol/L (3.3-5.1)
[2025-03-28 07:17] VITALS: O2SAT 96
[2025-03-28] MEDS: Potassium Chloride Oral Tablet 20 MEQ 40 MEQ PO (09:06)
[2025-03-28] MEDS: Senna/Docusate Sodium 1 Tablet PO (09:08)
--- NOTE | 2025-03-28 09:33 | NURSING ---
Offered covid vaccine, VIS provided. Thought he might be up to date. Called HOLLY brewer, last covid vaccine in June 2024. Updated resident, he would like to receive vaccine.
[2025-03-28 11:23] VITALS: BP 115/68; PULSE 100; RESP 18; TEMP 36.9; O2SAT 94
[2025-03-28] MEDS: Calcium (Elemental) 500 MG Tablet 1000 MG PO (11:58)
[2025-03-28] MEDS: 0.9% Saline Lock 10 ML Syringe IV (11:59)
[2025-03-28] MEDS: Tuberculin,Purif.prot.deriv. 50 TU/ML Vial 0.1 ML ID (12:10)
--- NOTE | 2025-03-28 13:35 | NURSING ---
State Wildlife Officer Note; Activity Asset: Adryan Juarez prefers to be called Jace. 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 He worked for the [employer] his last few years. He is independent in his choice of daily activities, reading (Not the Paper), watching tv, resting and visiting w/family. He welcomes the architecture internship and therapy dog when available. Staff will remind him of weekly activities, and respect his right to say no.
--- NOTE | 2025-03-28 14:33 | NURSING ---
pt denied covid vaccine. VIS provided. states he had one already and he does not want to double up on it. he had covid vaccine June 2024 at [facility] in [place].
--- NOTE | 2025-03-28 16:39 | PHA.CONS_ITS ---
Documented by User: Bibi Brewster 03/28/25 17:21 TCU RX Drug Regimen Review Subjective/Objective Subjective/Objective Subjective: TCU Admission. 80 YOM presented to the ER with edema. Hospitalized for bilateral lower extremity edema (dvt ruled out), acute respiratory failure with hypoxia 2/2 atelectasis, complicated by T9 compression fracture, L1 compression fracture, elevated troponin 2/2 demand ischemia. Admitted to TCU with debility for strengthening and rehabilitation. Objective: Allergies No Known Allergies Allergy (Verified 03/23/25 16:56) Current Medications Generic Name Dose Route Start Last Admin Trade Name Freq PRN Reason Stop Dose Admin Acetaminophen 1,000 mg 03/27/25 17:35 03/27/25 23:40 Acetaminophen 500 Mg Tablet PO 1,000 mg Q6H PRN PRN Administration Pain Score 1-10 Albuterol Sulfate 2.5 mg 03/27/25 15:12 Albuterol 2.5 Mg/3 Ml Vial.Neb. INHALATION Q6H PRN PRN shortness of breath Bisacodyl 10 mg 03/27/25 15:07 Bisacodyl 10 Mg Suppository RC DAILY PRN PRN Constipation Buspirone HCl 15 mg 03/27/25 22:00 03/28/25 09:07 Buspirone 15 Mg Tablet PO 15 mg BID TANIA Administration COVID-19 Vaccine mRNA LNP-S (MOD) (PF) 50 mcg 03/28/25 17:00 Covid Vac 24-25 (12up)(Moderna)/Pf 50 Mcg/0.5 Ml Syringe IM 03/28/25 17:01 .ONCE ONE Calcium Carbonate 1,000 mg 03/28/25 12:00 03/28/25 11:58 Calcium (Elemental) 500 Mg Tablet PO 1,000 mg LUNCH TANIA Administration Carvedilol 3.125 mg 03/27/25 17:00 03/28/25 09:06 Carvedilol 3.125 Mg Tablet PO 3.125 mg BIDCM TANIA Administration Protocol Cyanocobalamin 1,000 mcg 03/28/25 10:00 03/28/25 09:08 Cyanocobalamin 500 Mcg Tablet PO 1,000 mcg DAILY TANIA Administration Enoxaparin Sodium 40 mg 03/28/25 06:00 03/28/25 05:19 Enoxaparin 40 Mg/0.4 Ml Syringe SC 40 mg DAILY@0600 TANIA Administration Ergocalciferol 1.25 mg 04/02/25 10:00 Ergocalciferol 1.25 Mg (50, 000 Unit) Capsule PO Sa@1000 [facility] Furosemide 40 mg 03/28/25 10:00 03/28/25 09:07 Furosemide 40 Mg Tablet PO 40 mg DAILY TANIA Administration Protocol Hydroxyzine Pamoate 25 mg 03/28/25 07:21 Hydroxyzine Trinidad 25 Mg Capsule PO 4X/DAY PRN ANXIETY/RESTLESSNESS/SLEEP Losartan Potassium 100 mg 03/28/25 10:00 03/28/25 09:07 Losartan Potassium 100 Mg Tablet PO 100 mg DAILY TANIA Administration Protocol Melatonin 5 mg 03/27/25 22:00 03/27/25 21:10 Melatonin 10 Mg Tablet PO 5 mg QHS [facility] Administration Paroxetine HCl 40 mg 03/28/25 10:00 03/28/25 09:07 Paroxetine 20 Mg Tablet PO 40 mg DAILY TANIA Administration Potassium Chloride 20 meq 03/28/25 17:00 Potassium Chloride [facility] Senna/Docusate Sodium 1 tablet 03/27/25 22:00 03/28/25 09:08 Senna/Docusate Sodium 1 Tablet PO 1 tablet BID [facility] Administration Sodium Chloride 10 - 40 ml 03/27/25 15:13 03/28/25 11:59 0.9% Saline Lock 10 Ml Syringe IV 10 ml UD PRN Administration SALINE FLUSH Tamsulosin HCl 0.4 mg 03/28/25 10:00 03/28/25 09:07 Tamsulosin Hcl 0.4 Mg Capsule PO 0.4 mg DAILY TANIA Administration Tuberculin PPD 0.1 ml 04/04/25 10:00 Tuberculin,Purif.Prot.Deriv. 50 Tu/Ml Vial ID 04/04/25 10:01 X1 ONE Problem List Vitamin D deficiency (Acute) BPH (benign prostatic hyperplasia) (Acute) Depression (Acute) Insomnia (Acute) B12 deficiency (Acute) Anxiety (Acute) Essential (primary) hypertension (Acute) Compression fracture of L1 lumbar vertebra (Acute) Compression fracture of T9 vertebra (Acute) Atelectasis (Acute) Acute respiratory failure with hypoxia (Acute) Bilateral lower extremity edema (Acute) Debility (Acute) Osteoporosis (Chronic) Vital Signs Temp Pulse Resp BP Pulse Ox O2 Del Method O2 Flow Rate 98.4 F 100 18 115/68 94 Nasal Cannula 2 03/28/25 11:23 03/28/25 11:23 03/28/25 11:23 03/28/25 11:23 03/28/25 11:23 03/28/25 11:23 03/28/25 14:20 Oxygen Flow Rate (L/min) 2 Oxygen Delivery Method Nasal Cannula Weight: 72.2 kg Body Mass Index (BMI) 24.9 Sodium 144 mmol/L (133-145) 03/28/25 05:08 Potassium 3.2 mmol/L (3.3-5.1) L 03/28/25 05:08 Chloride 103 mmol/L (98-108) 03/28/25 05:08 Carbon Dioxide 31.7 mmol/L (21.0-32.0) 03/28/25 05:08 Anion Gap 9 (5-15) 03/28/25 05:08 BUN 17 mg/dL (4-19) 03/28/25 05:08 Creatinine 0.68 mg/dL (0.70-1.20) L 03/28/25 05:08 Est GFR (MDRD) Non-Af 95 (>60) 03/28/25 05:08 BUN/Creatinine Ratio 24.8 RATIO (10-20) H 03/28/25 05:08 Glucose 103 mg/dL (70-99) H 03/28/25 05:08 Assessment/Plan: 1. Pain: acetaminophen 1000mg PO Q6H PRN pain 1-10. Resident has had 1 dose for a pain score of 6 in the back. Please continue to monitor for increased pain, PRN usage and LFTs (03/24/25). 2. Bowel: senna/docusate 1T PO BID and bisacodyl 10mg RC daily PRN constipation. No PRN doses have been given. Please continue to monitor for PRN usage and constipation. Last documented bowel movement was 03/27/25. 3. DVT prophylaxis: enoxaparin 40mg SC daily. Please continue to monitor for S/S of bleeding, hemoglobin (last 11.1g/dL), platelets (last 192,000) and renal function (CrCl 70mL/min). 4. Hypertension: carvedilol 3.125mg PO BIDCM and losartan 100mg PO daily. Please continue to monitor BP (132/70, 115/68), HR (range 89-100), renal function, potassium (last 3.2mmol/L). 5. Atelectasis: albuterol 2.5mg nebulized solution Q6H PRN SOB. No PRN doses given. Please continue to monitor for SOB and PRN usage. 6. Edema: furosemide 40mg PO daily. Please continue to monitor for edema, renal function (SCr 0.68mg/dL), potassium (last 3.2mmol/L). 7. BPH: tamsulosin 0.4mg PO daily. Please continue to monitor for S/S of BPH, BP (132/70, 115/68), dizziness. 8. Insomnia: melatonin 5mg PO QHS. Please continue to monitor for excessive daytime drowsiness. 9. Hypokalemia: potassium chloride 20mEq PO BIDCM and 40mEq x1 this morning. Please continue to monitor potassium and upset stomach. 10. Calcium and vitamin D/B12 deficiencies: cyanocobalamin 1000mcg PO daily, ergocalciferol 1.25mg PO weekly, calcium 1000mg PO lunch. Please consider decreasing B12 to 500mcg daily as the last level from 03/24/25 was elevated. Thanks. Please consider ordering a vitamin D level as there is no level in the chart. Thanks. Please continue to monitor calcium (last 8.8mg/dL). Assessment/Plan for indications treated with psychotropic medications: 1. Anxiety: buspirone 15mg PO BID and hydroxyzine 25mg PO 4x/day PRN anxiety/restlessness/sleep (no PRN doses given). Please see physician note regarding GDR. Please continue to monitor for dizziness, drowsiness, anxiety, PRN usage. Monitor for efficacy including resident symptoms, behaviors and indications of distress. Monitor for tolerability including mental status, cognition, excessive sleepiness, withdrawal or decreased participation in activities and decline in physical functioning. Maximize use of nonpharmacologic/behavioral interventions to facilitate dose reduction or discontinuation as appropriate. Please evaluate the appropriateness of GDR unless contraindicated. If appropriate, GDR should be attempted in 2 separate quarters within the first year of use or admission to TCU. If GDR attempted, monitor resident symptoms/behaviors. Monitor prn usage and efficacy of prn doses including resident symptoms, behaviors and indications of distress. 2. Major depression: paroxetine 40mg PO daily. Please see physician note regarding GDR. Monitor for diarrhea, nausea, headache, anxiety or drowsiness, suicidal thoughts or behaviors (Boxed Warning), symptoms of bleeding, symptoms of serotonin syndrome (including agitation, confusion, hyperreflexia, rigidity/myoclonus, tremor, tachycardia, tachypnea), sodium levels (last Na = 144mmol/L). Monitor for efficacy including resident symptoms, behaviors and indications of distress. Monitor for tolerability including mental status, cognition, excessive sleepiness, withdrawal or decreased participation in activities and decline in physical functioning. Maximize use of nonpharmacologic/behavioral interventions to facilitate dose reduction or discontinuation as appropriate. Please evaluate the appropriateness of GDR unless contraindicated. If appropriate, GDR should be attempted in 2 separate quarters within the first year of use or admission to TCU. If GDR attempted, monitor resident symptoms/behaviors. Medical chart and medication regimen reviewed. The following medication irregularities or issues were identified: 1. Cyanocobalamin 1000mcg PO daily, ergocalciferol 1.25mg PO weekly. Please consider decreasing B12 to 500mcg daily as the last level from 03/24/25 was elevated. Thanks. Please consider ordering a vitamin D level as there is no level in the chart. Thanks. Date Date of Note: 03/28/25 Documented by User: Dr. Sony Gould MD 03/28/25 18:15 TCU RX Drug Regimen Review Provider Comments Provider responsibility Provider Comments to Recommendations by Pharmacy Agree
[2025-03-28] MEDS: Potassium Chloride Oral Tablet 20 MEQ PO (17:35)
[2025-03-28 19:41] LABS: Vitamin D,25 Hydroxy 72.5 ng/mL (30-100)
[2025-03-28] MEDS: MELATONIN 10 MG TABLET 5 MG PO (22:51)
[2025-03-29 06:09] LABS: Anion Gap 10 (5-15); BUN 16 mg/dL (4-19); BUN/Creat Ratio 23.5 RATIO (10-20); Calcium,Total 9.4 mg/dL (7.6-11.0); Carbon Dioxide 31.5 mmol/L (21.0-32.0); Chloride 102 mmol/L (98-108); Estimated Creatinine Clearance 70.00 ml/min (50-250); Glucose 103 mg/dL (70-99); Potassium 3.6 mmol/L (3.3-5.1)
[2025-03-29 07:00] VITALS: O2SAT 94
[2025-03-29 08:46] VITALS: BP 119/69; PULSE 91; RESP 17; TEMP 36.7; O2SAT 97
[2025-03-29] MEDS: Potassium Chloride Oral Tablet 20 MEQ PO ×2 (08:49→17:01)
[2025-03-29 10:00] VITALS: PULSE 102; RESP 18; O2SAT 89
--- NOTE | 2025-03-29 10:46 | CASEMGMT ---
Social Work SW met with patient to complete initial assessment. Introduced self and role. Verified/updated contacts. Patient confirmed code status as full code. Educated to Medicare benefit and copay coverage. Pt's goal is to return home with at [facility]. SW will continue to follow for DC planning. Sophy Perry TEACHER OF [employer] VERIFY REP
[2025-03-29] MEDS: Calcium (Elemental) 500 MG Tablet 1000 MG PO (11:27)
[2025-03-29] MEDS: 0.9% Saline Lock 10 ML Syringe IV (11:28)
[2025-03-29 15:07] VITALS: BMI 24.3
--- NOTE | 2025-03-29 16:06 | NURSING ---
Addendum entered by Julia Moreno 03/29/25 16:56: rechecked pulse ox at 94% on RA. pt resting in recliner chair. denies any dyspnea. resp even/unlabored at rest Original Note: oxygen removed at this time, therapy reported pt sats high 90's during his ambulation of 200 ft. will monitor this evening. pt sitting in chair talking to on phone. updated as well.
[2025-03-29 16:57] VITALS: O2SAT 94
[2025-03-29 17:05] VITALS: BP 118/70; PULSE 100
--- NOTE | 2025-03-29 17:54 | NURSING ---
dr houston notified of pt urinary frequency and incontinence. pt was not on lasix at home, pt not drinking much fluid. fluids encouraged. edema much improved in BLEs. new order lasix decreased from 40mg to 20mg. pt & updated on order
[2025-03-29] MEDS: hydrOXYzine PAM 25 MG Capsule PO (22:44)
[2025-03-29] MEDS: MELATONIN 10 MG TABLET 5 MG PO (22:46)
[2025-03-30 06:21] LABS: Anion Gap 10 (5-15); BUN 18 mg/dL (4-19); BUN/Creat Ratio 26.9 RATIO (10-20); Calcium,Total 9.3 mg/dL (7.6-11.0); Carbon Dioxide 30.9 mmol/L (21.0-32.0); Chloride 101 mmol/L (98-108); Estimated Creatinine Clearance 70.00 ml/min (50-250); Glucose 101 mg/dL (70-99); Potassium 3.7 mmol/L (3.3-5.1)
[2025-03-30] MEDS: 0.9% Saline Lock 10 ML Syringe IV ×2 (07:03→11:41)
--- NOTE | 2025-03-30 07:24 | NURSING ---
Patient told OPEN DIE INSPECTORPhong, that he has something to report. OPEN DIE INSPECTOR asked this nurse to come to patient's room. Patient reported to this nurse that he may have rolled out of bed last night. This nurse asked patient when this incident occurred and if he had any known injuries. Patient stated, maybe an hour ago, I'm not sure. I don't feel like I am hurting anywhere. This nurse and OPEN DIE INSPECTOR assessed patient for any possible injuries, no new injuries observed. This nurse asked patient how he got back into bed, patient could not recall, stating I think I got up and went back to bed. Patient then continued to say, it felt like a dream. platform attendant rounded and did a check and change on the patient at the hour of this possible incident in which they rolled him in bed to change his brief. Patient could not remember if that was what he was referring to or not. Educated patient the importance of use of call light if an incident like this reported were to occur so staff can be aware and assist patient safely. Patient heavily requesting use of 4 side rails so he does not feel like he can easily roll out of bed. This nurse educated patient on the risks of using all 4 side rails and how [facility] considers them as restraints. Patient not receptive of education, and stated to this nurse, what is ridiculous is when I roll out of bed and break my hip. This nurse educated patient that [facility] staff do hourly rounding and can also implement other safety precautions to prevent falls and injury. Patient asked if he could have a bed from the other side of the hospital since they are bigger. This nurse assured patient that the beds are similar in size. Patient asked if this report can be followed up. This nurse has shared this report with Charge nurse, Lizz. Patient resting in bed, denies injury/pain at this time. Patient denies further assistance, call light in reach.
[2025-03-30 07:44] VITALS: PULSE 92; RESP 20; O2SAT 91
[2025-03-30 07:47] VITALS: BP 149/83; PULSE 91; RESP 17; TEMP 36.2; O2SAT 92
[2025-03-30] MEDS: Potassium Chloride Oral Tablet 20 MEQ PO ×2 (07:52→17:02)
--- NOTE | 2025-03-30 08:02 | NURSING ---
pt asked this nurse if the staff told me about his incident. pt states he thinks he was dreaming, states if he takes strong pain meds that he will have dreams that feel real. pt alert & oriented this AM, talking. pt did take vistaril lastnight. pt feels beds are too small & stated that acute side of hospital had bigger beds. pt requesting to have 4 siderails and educated pt that there is a risk with having 4 siderails, not recommended d/t injury risk. pt verbalized understanding. will update charge nurse.
[2025-03-30] MEDS: Calcium (Elemental) 500 MG Tablet 1000 MG PO (11:29)
--- NOTE | 2025-03-30 12:25 | NURSING ---
pt does not eat lunch, only eats 2 meals a day per his request
--- NOTE | 2025-03-30 12:32 | NURSING ---
pt with odorous urine, pt c/o increased frequency and incontinence of small amts urine. Dr houston notified, new order for UA & culture. pt updated. no urine obtained since admission to hospital.
[2025-03-30 13:00] LABS: Mucous, Urine 0 SEEN /hpf (<or=2+); Red Blood Cells-Urine 0 SEEN /hpf (0-5)
[2025-03-30 13:02] LABS: Color, Urine Yellow (Yellow); Glucose, Dipstick Normal (Normal); Ketone-Dipstick Negative (Negative); Leukocyte Esterase-Dipstick 25 /ul (Negative); Nitrite-Dipstick Negative (Negative); Occult Blood-Urine Negative /ul (Negative); Protein-Dipstick Negative (Negative); Specific Gravity, Urine 1.010 (1.002-1.030); Urine Bilirubin Dipstick Negative (Negative)
[2025-03-30 13:08] LABS: Squamous Epithelial Cells - UA 0-5 SEEN /hpf (0-5)
--- NOTE | 2025-03-30 14:09 | CASEMGMT ---
Social Work IDT met with patient, and dtr at bedside, then SHERRON via conference call, for care plan meeting. Discussed patient's progress in PT/OT/SN/RDN. Educated to Medicare benefit. Provided pt/family with written communication of insurance process and copay coverage during stay. Discussed DC plans. Family has concerns with pt discharging home too soon. Pt verbalized wanting to improve activity tolerance and breathing. Therapy confirms and will continue working on those goals. Answered family's questions. SW provided resources for medical alert, private duty HHC, and home delivered meals. Family is very involved. SW will continue to follow for DC planning. Sophy Perry SIGN SHOP SUPERVISOR ENGINE MAINTENANCE MECHANIC
[2025-03-30 17:02] VITALS: BP 135/75; PULSE 98
--- NOTE | 2025-03-30 18:25 | NURSING ---
pt & requesting that the alarm be set on his bed to alarm staff if pt trying to get up at night, mats placed on floor to each side of bed and bed in low position.
[2025-03-30] MEDS: hydrOXYzine PAM 25 MG Capsule PO (20:07)
[2025-03-30] MEDS: MELATONIN 10 MG TABLET 5 MG PO (20:08)
[2025-03-30 22:35] VITALS: PULSE 94; O2SAT 93
[2025-03-31 05:43] VITALS: RESP 18; O2SAT 93
[2025-03-31] MEDS: Potassium Chloride Oral Tablet 20 MEQ PO ×2 (08:04→17:50)
[2025-03-31 08:05] VITALS: BP 147/89; PULSE 102; RESP 16; TEMP 36.8; O2SAT 92
[2025-03-31] MEDS: 0.9% Saline Lock 10 ML Syringe IV ×2 (08:05→21:06)
[2025-03-31] MEDS: Senna/Docusate Sodium 1 Tablet PO ×2 (08:05→21:02)
[2025-03-31 08:14] LABS: Anion Gap 11 (5-15); BUN 14 mg/dL (4-19); BUN/Creat Ratio 21.2 RATIO (10-20); Calcium,Total 9.2 mg/dL (7.6-11.0); Carbon Dioxide 28.1 mmol/L (21.0-32.0); Chloride 103 mmol/L (98-108); Estimated Creatinine Clearance 70.00 ml/min (50-250); Glucose 100 mg/dL (70-99); Potassium 3.6 mmol/L (3.3-5.1)
[2025-03-31] MEDS: Calcium (Elemental) 500 MG Tablet 1000 MG PO (11:59)
[2025-03-31 17:00] VITALS: BP 157/87; PULSE 102
[2025-03-31] MEDS: MELATONIN 10 MG TABLET 5 MG PO (21:02)
[2025-03-31] MEDS: hydrOXYzine PAM 25 MG Capsule PO (21:04)
[2025-03-31 21:13] VITALS: O2SAT 97
[2025-04-01 09:35] VITALS: BP 138/71; PULSE 89; RESP 17; TEMP 35.7; O2SAT 93
[2025-04-01] MEDS: Potassium Chloride Oral Tablet 20 MEQ PO ×2 (09:39→17:31)
--- NOTE | 2025-04-01 09:52 | NURSING ---
Addendum entered by Julia Moreno 04/01/25 14:37: dr houston notified of pt moist cough & difficulty with expectorating. new order for mucinex Original Note: pt pulled up in bed x2 assist, refuses to sit up in chair. educated pt on importance of sitting up during day for good lung expansion to prevent pneumonia. pt with moist cough, encouraged pt to cough up the sputum and spit it out. pt had asked if he should swallow it. pt resting in bed, sat 90-93% on room air. rest notified of pt needing breathing tx.
[2025-04-01] MEDS: Albuterol 2.5 MG/3 ML VIAL.NEB. INHALATION ×2 (10:00→22:51)
[2025-04-01 10:10] VITALS: PULSE 82; RESP 20
[2025-04-01] MEDS: Calcium (Elemental) 500 MG Tablet 1000 MG PO (11:07)
--- NOTE | 2025-04-01 13:32 | MDS.RN ---
Pain assessment for MDS complete.
[2025-04-01] MEDS: hydrOXYzine PAM 25 MG Capsule PO ×2 (13:38→22:30)
[2025-04-01 13:40] VITALS: RESP 17; O2SAT 94
--- NOTE | 2025-04-01 16:08 | CASEMGMT ---
Social Work SW completed BIMS () and PHQ-2 () for MDS assessment. Sophy Perry POKER MACHINE ATTENDANT CAMPUS AMBASSADOR
[2025-04-01 17:29] VITALS: BP 147/86; PULSE 100
[2025-04-01 20:00] VITALS: O2SAT 93
[2025-04-01] MEDS: 0.9% Saline Lock 10 ML Syringe IV (20:02)
[2025-04-01] MEDS: MELATONIN 10 MG TABLET 5 MG PO (22:25)
[2025-04-01] MEDS: Senna/Docusate Sodium 1 Tablet PO (22:25)
[2025-04-01 22:51] VITALS: PULSE 81; RESP 18
[2025-04-02 05:37] VITALS: PULSE 90; O2SAT 93
[2025-04-02 08:49] VITALS: BP 121/67; PULSE 104; RESP 17; TEMP 36.3; O2SAT 90
[2025-04-02] MEDS: Potassium Chloride Oral Tablet 20 MEQ PO ×2 (08:57→17:14)
[2025-04-02] MEDS: Senna/Docusate Sodium 1 Tablet PO (08:58)
[2025-04-02] MEDS: Ergocalciferol 1.25 MG (50, 000 UNIT) Capsule PO (08:58)
[2025-04-02] MEDS: Calcium (Elemental) 500 MG Tablet 1000 MG PO (12:17)
[2025-04-02] MEDS: MELATONIN 10 MG TABLET 5 MG PO (20:22)
[2025-04-02] MEDS: hydrOXYzine PAM 25 MG Capsule PO (22:53)
[2025-04-03 07:59] VITALS: BP 141/91; PULSE 89; RESP 17; TEMP 36.6; O2SAT 90
[2025-04-03] MEDS: 0.9% Saline Lock 10 ML Syringe IV (08:05)
[2025-04-03] MEDS: Potassium Chloride Oral Tablet 20 MEQ PO ×2 (08:05→18:01)
[2025-04-03] MEDS: Senna/Docusate Sodium 1 Tablet PO (08:06)
[2025-04-03] MEDS: Calcium (Elemental) 500 MG Tablet 1000 MG PO (12:48)
[2025-04-03 22:00] VITALS: PULSE 90; RESP 16; O2SAT 94
[2025-04-03] MEDS: MELATONIN 10 MG TABLET 5 MG PO (22:07)
[2025-04-03] MEDS: hydrOXYzine PAM 25 MG Capsule PO (22:09)
[2025-04-04 05:50] LABS: Hematocrit 36.0 % (40-54); Hemoglobin 12.1 g/dL (13.0-16.5); Immature Granulocytes Count 0.040 X10^3/uL (0.0-0.0); Mean Corp Hgb Conc 33.6 g/dL (32-36); Mean Corpuscular Volume 95.2 fL (80-94); Mean Platelet Vol. 9.3 fl (6.2-12.0); NRBC Flagged by Analyzer 0 % (0-5); Platelet Count 253 K/mm3 (150-450); RBC Distribution Width CV 13.2 % (11.6-14.6); RBC Distribution Width SD 45.9 fl (35.1-43.9); Red Blood Count 3.78 M/mm3 (4.6-6.2); White Blood Count 7.7 K/mm3 (4.4-11.0)
[2025-04-04 06:30] LABS: Anion Gap 11 (5-15); BUN 21 mg/dL (4-19); BUN/Creat Ratio 27.6 RATIO (10-20); Calcium,Total 9.8 mg/dL (7.6-11.0); Carbon Dioxide 26.0 mmol/L (21.0-32.0); Chloride 106 mmol/L (98-108); Estimated Creatinine Clearance 70.00 ml/min (50-250); Glucose 98 mg/dL (70-99); Potassium 4.0 mmol/L (3.3-5.1)
[2025-04-04 07:01] VITALS: PULSE 83; RESP 16; O2SAT 92
--- NOTE | 2025-04-04 08:32 | NURSING ---
Skid Wrapper Note; MDS for 04/03/2025 Complete
[2025-04-04 09:29] VITALS: BP 131/81; PULSE 111; RESP 18; TEMP 36.2; O2SAT 92
[2025-04-04] MEDS: Potassium Chloride Oral Tablet 20 MEQ PO ×2 (09:33→16:20)
[2025-04-04] MEDS: Tuberculin,Purif.prot.deriv. 50 TU/ML Vial 0.1 ML ID (10:59)
[2025-04-04] MEDS: Calcium (Elemental) 500 MG Tablet 1000 MG PO (12:13)
[2025-04-04 12:16] VITALS: O2SAT 94
[2025-04-04 12:37] VITALS: PULSE 82; RESP 18
[2025-04-04] MEDS: Albuterol 2.5 MG/3 ML VIAL.NEB. INHALATION (12:37)
[2025-04-04 16:17] VITALS: BP 139/83; PULSE 95; O2SAT 93
--- NOTE | 2025-04-04 16:31 | NURSING ---
pt has made some odd comments since admit, for example pt stated I sound like I need to be in the intensive care unit, my voice is usually louder than this pt sat 93-94% on room air. pt has claimed that his feet are swollen, this nurse assessed feet, no edema noted to feet, slight edema to ankles. no pitting. offered eva hose this AM & pt declined stating that he hasnt had any swelling last couple days. pt continues to ask same questions daily about oxygen, stated that he doesn't want to use aerosal treatments because he thinks they will put him on oxygen. pt does have moist cough and has difficulty expectorating sputum. pt started on mucinex last friday. pt also feels he is on too many meds and thinks it is causing him to be lethargic. reviewed pt meds & the only 3 pt is on here that he is not on at home is mucinex, potassium, & lasix. Much explanation and teaching needed, reinforced daily by this nurse. speech therapy consult placed.
[2025-04-04] MEDS: MELATONIN 10 MG TABLET 5 MG PO (21:40)
--- NOTE | 2025-04-04 23:53 | NURSING ---
Patient asked if he could walk go for a walk. Assisted patient with walking around unit. Patient tolerated well.
[2025-04-05 08:20] VITALS: BP 120/75; PULSE 101; RESP 16; TEMP 36.6; O2SAT 98
[2025-04-05] MEDS: hydrOXYzine PAM 25 MG Capsule PO (08:24)
[2025-04-05] MEDS: Potassium Chloride Oral Tablet 20 MEQ PO ×2 (08:28→16:53)
[2025-04-05] MEDS: Calcium (Elemental) 500 MG Tablet 1000 MG PO (11:54)
[2025-04-05 15:00] VITALS: BMI 23.6
[2025-04-05 16:55] VITALS: BP 140/82; PULSE 91
[2025-04-05 20:50] VITALS: PULSE 91; RESP 20
[2025-04-05] MEDS: Albuterol 2.5 MG/3 ML VIAL.NEB. INHALATION (20:50)
[2025-04-05] MEDS: MELATONIN 10 MG TABLET 5 MG PO (21:51)
[2025-04-05 21:55] VITALS: PULSE 100; RESP 16
--- OUTSIDE RECORDS SUMMARY | 2025-04-05 22:22 | XMS RPT_ITS | CCD ---
Author Organization [facility] Care Team Providers Care Animal Shelter Supervisor Name Role Phone YOLANDA GOODSON, ARACELI Ontiveros Primary Care Physician SUNDAY PROOF PRESS OPERATOR-MANUFACTURER, KATHERINE S Primary Care Physicia n KATHERINE BRAND Primary Care Unavailable KATHERINE BRAND Attending Unavailable SUNDAY, KATHERINE Primary Care Unavailable KATHERINE BRAND Attending Unavailable SUNDAY, KATHERINE Primary Care Unavailable KATHERINE BRAND Attending Unavailable INDRA PROOF PRESS OPERATOR-MANUFACTURER, OSMEL Chavez Admitting Unavailable SUNDAY, KATHERINE Primary Care Unavailable LIDA SCHMIDT DO Attending Unavailable PATE DOBRODY Consulting Unavailable SUNDAY, KATHERINE Primary Care Unavailable EDUARDA APARICIO, DR BADILLO Attending Unavailable KILEY PROOF PRESS OPERATOR-MANUFACTURERFORREST Admitting Unava ilable KATHERINE BRAND Consulting Unavailable SUNDAY, KATHERINE Primary Care Unavailable CURLY GOODSON, DR BENDER Attending Unavailab SIERRA Keyes DO Attending Unavailable SUNDAY, KATHERINE Primary Care Unavailable SUNDAY, KATHERINE Primary Care Unavailable KATHERINE BRAND Attending Unavailable SUNDAY PROOF PRESS OPERATOR-MANUFACTURER, KATHERINE S Primary Care Unava ilable SUNDAY PROOF PRESS OPERATOR-MANUFACTURER, KATHERINE S Attending Unava ilable SUNDAY PROOF PRESS OPERATOR-MANUFACTURER, KATHERINE S Attending Unava ilable SUNDAY PROOF PRESS OPERATOR-MANUFACTURER, KATHERINE S Primary Care Unava ilable SUNDAY PROOF PRESS OPERATOR-MANUFACTURER, KATHERINE S Primary Care Unava ilable SUDNAY PROOF PRESS OPERATOR-MANUFACTURER, KATHERINE S Attending Unava ilable SUNDAY PROOF PRESS OPERATOR-MANUFACTURER, KATHERINE S Attending Unava ilable SUNDAY PROOF PRESS OPERATOR-MANUFACTURER, KATHERINE S Primary Care Unava ilable SUNDAY PROOF PRESS OPERATOR-MANUFACTURER, KATHERINE S Attending Unava ilable SUNDAY PROOF PRESS OPERATOR-MANUFACTURER, KATHERINE S Primary Care Unava ilable SOFIA, SIERRA Attending Unavailable SUNDAY PROOF PRESS OPERATOR-MANUFACTURER, KATHERINE S Primary Care Unava ilable SUNDAY PROOF PRESS OPERATOR-MANUFACTURER, KATHERINE S Primary Care Unava ilable SHRUTHI-COOPER PROOF PRESS OPERATOR-MANUFACTURER, OSMEL Chavez Admitting Unavailable TWILA GOODSON FACP, PAULINO Glaser Attending Unavail able SUNDAY PROOF PRESS OPERATOR-MANUFACTURER, KATHERINE S Primary Care Unava ilable SHRUTHI-COOPER PROOF PRESS OPERATOR-MANUFACTURER, OSMEL Chavez Admitting Unavailable PATE DO, BRODY Consulting Unavailable PLUNK DO, LIDA Attending Unavailable SUNDAY PROOF PRESS OPERATOR-MANUFACTURER, KATHERINE S Primary Care Unava ilable SEFFENS PROOF PRESS OPERATOR-MANUFACTURER, DANY Attending Unavai lable SUNDAY PROOF PRESS OPERATOR-MANUFACTURER, KATHERINE S Attending Unava ilable SUNDAY PROOF PRESS OPERATOR-MANUFACTURER, KATHERINE S Primary Care Unava ilable KING HAMZAH, AMBER Chavez Attending Unavailable SUNDAY PROOF PRESS OPERATOR-MANUFACTURER, KATHERINE S Primary Care Unava ilable SUNDAY PROOF PRESS OPERATOR-MANUFACTURER, KATHERINE S Primary Care Unava ilable SUNDAY PROOF PRESS OPERATOR-MANUFACTURER, KATHERINE S Attending Unava ilable SUNDAY PROOF PRESS OPERATOR-MANUFACTURER, KATHERINE S Attending Unava ilable SUNDAY PROOF PRESS OPERATOR-MANUFACTURER, KATHERINE S Primary Care Unava ilable Sunday MANAGER PRIVACY-C, Katherine Primary Care Provider Dr. Marco Camacho DO Emergency Provider Vero GOODSON, Dr. Merry Wheat Admit Provider Vero GOODSON, Dr. Merry Wheat Attending Provider Vero GOODSON, Dr. Merry Wheat Other Provider Tani GOODSON, Dr. Mckeon Other Provider Caren GOODSON, Dr. Katarina Bryant Attending Provider Inder GOODSON, Dr. Caruso Attending Provider Caren GOODSON, Dr. Katarina Bryant Other Provider Tani GOODSON, Dr. Mckeon Attending Provider Zandra Freire Consulting Unavailable Merry Pham Admitting Unavailable Koram, Katarina Annette Attending Unavailable Sunday MANAGER PRIVACY, [facility] Care Unavailable White, Merry L Consulting Unavailable Amelie Lovingadee Attending Unavailabl e Sunday MANAGER PRIVACY, [facility] Care Unavailable Freire, Zandra Consulting Unavailable White, Merry L Admitting Unavailable Petal MANAGER PRIVACY, [facility] Care Unavailable Koram, Katarina Annette Attending Unavailable White, Merry L Consulting Unavailable Koram, Katarina Annette Consulting Unavailable White, Merry L Attending Unavailable Luis Fernando, Sony Chi Admitting Unavailable Petal MANAGER PRIVACY, [facility] Care Unavailable Luis Fernando, Sony Chi Attending Unavailable Radha Freireag Attending Unavailable Petal MANAGER PRIVACY, [facility] Referring Unavailable Petal MANAGER PRIVACY, [facility] Care Unavailable Amber Greenwood Attending Unavailable Petal MANAGER PRIVACY, [facility] Referring Unavailable Sunday MANAGER PRIVACY, [facility] Care Unavailable Amber Greenwood Attending Unavailable Sunday MANAGER PRIVACY, [facility] Care Unavailable Lakshmi, [place] Attending Unavailable Allergies Allergy Classification Reported Allergen(s) Allergy Type Date of Onset Reaction(s) Facility (20 sources) Atenolol; Translations: [atenolol] Drug Allergy [facility] (20 sources) buPROPion; Translations: [bupropion] Drug Allergy [facility] (20 sources) Erythromycin; Translations: [erythromycin] Drug Allergy [facility] (20 sources) Loratadine; Translations: [loratadine] Drug Allergy [facility] (20 sources) Niacin; Translations: [niacin] Drug Allergy [facility] (17 sources) cyclobenzaprine; Translations: [cyclobenzaprine ] Drug Allergy Drowsiness, function (observable entity) [facility] (17 sources) fexofenadine; Translations: [fexofenadine] Drug Allergy Nausea (finding) [facility] Medications Current Medications Medication Drug Class(es) [...] 30 tab(s), 1 Refill(s), [id number] 175.3, cm, 10/08/23 13:00:00 EST, Height, kg, 10/08/23 13:00:00 EST, Dosing Weight Start Date: 10/08/23 Status: Ordered busPIRone hydrochloride 30 m g oral tablet (18 sources) Start: 02-15-2025 End: 02-10-2026 busPIRone 30 mg oral tablet Dose : 30 mg = 1 tab(s), Oral, BID, # 180 tab(s), 3 Refill(s), Pharmacy: [facility], 167.5, cm, 02/10/25 14:35:00 EDT, [...] 60 tab(s), 1 Refill(s), [id number], 175.3, cm, 10/08/23 13:00:00 EST, [...] Start: 07-26-2024 take 1 tablet by margareth th once daily Calcium Carbonate 500 mg calcium (1,250 mg) tablet,chewable Active 1000 mg PO daily July 26, 2024 1:00am carvedilol 12.5 mg oral tablet (20 sources) alpha-Adrenergic Alejandro, beta-Adrenergic Alejandro Start: 12-27-2024 carvedilol 12.5 mg oral tablet Dose : 12.5 mg = 1 tab(s), Oral, BID, # 180 tab(s), 3 Refill(s), Pharmacy: [facility], 167.5, cm, 11/03/24 15:02:00 EST, Height, kg, 11/03/24 15:02:00 EST, Dosing Weight Start Date: 12/27/24 Status: Ordered Quantity: 180.0 Unit: tab(s) Repeat number: 4 Start: 01-06-2024 carvedilol 12. 5 mg oral tablet Dose : 12.5 mg = 1 tab(s), Oral, BID, # 180 tab(s), 3 Refill(s), Pharmacy: [facility], 175.3, cm, 11/11/23 14:58:00 EDT, [...] PM, # 135 tab(s), 3 Refill(s), Pharmacy: [facility], 175, cm, 04/24/23 13:34:00 EDT, [...] PM, # 135 tab(s), 3 Refill(s), Pharmacy: [facility], 175, cm, 06/04/22 14:06:00 EDT, [...] Daily, # 90 tab(s), 0 Refill(s), Pharmacy: [facility]/pharmacy #[id number], Seasonal allergies Allergic conjunctivitis, 177.8, cm, 02/07/23 [...] anxiety, # 40 tab(s), 3 Refill(s), Pharmacy: [facility], 167.5, cm, 02/10/25 14:35:00 EDT, Height, kg, 02/10/25 14:35:00 EDT, Dosing Weight Start Date: 02/15/25 Status: Ordered Quantity: 40.0 Unit: tab(s) Repeat number: 4 Start: 10-08-2023 Vistaril 25 mg oral capsule Dose : 25 mg = 1 cap(s), Oral, QID, PRN as needed for anxiety, # 40 cap(s), 0 Refill(s), [id number], 175.3, cm, 10/08/23 13:00:00 EST, Height, kg, 10/08/23 13:00:00 EST, Dosing Weight Start Date: 10/08/23 Status: Ordered lidocaine 0.05 mg/mg medicated patch (3 sources) Antiarrhythmic, Amide Local Anesthetic Start: 05-01-2024 End: 05-31-2024 Lidoderm 5% topical patch Apply 2 patch(es), Topical, qDay, remove patches after 12 hours, X 30 day(s), # 60 patch(es), 0 Refill(s), [id number], 167.6, cm, 04/26/24 13:56:00 EDT, Height, 84, kg, 04/26/24 13:56:00 EDT, Dosing Weight Start Date: 05/01/24 Stop Date: 05/31/24 Status: Ordered losartan potassium 100 mg oral tablet (20 sources) Angiotensin 2 Receptor Alejandro Start: 11-15-2024 End: 11-10-2025 losartan 100 mg oral tablet Dose : 100 mg = 1 tab(s), Oral, qDay, # 90 tab(s), 3 Refill(s), Pharmacy: [facility], 167.5, cm, 11/03/24 15:02:00 EST, Height, kg, 11/03/24 15:02:00 EST, Dosing Weight Start Date: 11/15/24 Stop Date: 11/10/25 Status: Ordered Quantity: 90.0 Unit: tab(s) Repeat number: 4 Start: 07-26-2024 take 4 tablets by [facility] once daily Losartan 25 mg tablet Active 100 mg PO DAILY July 26, 2024 9:46am Start: 11-11-2023 End: 11-05-2024 losartan 100 mg oral tablet Dose : 100 mg = 1 tab(s), Oral, qDay, # 90 tab(s), 3 Refill(s), Pharmacy: [facility], 175.3, cm, 10/21/23 15:04:00 EST, Height, kg, 10/21/23 15:04:00 EST, Dosing Weight Start Date: 11/11/23 Stop Date: 11/05/24 Status: Ordered Quantity: 90.0 Unit: tab(s) Repeat number: 4 Start: 09-25-2023 losartan 100 m g oral tablet Dose : 100 mg = 1 tab(s), Oral, qDay, # 30 tab(s), 0 Refill(s), Pharmacy: [facility], 170, cm, 09/25/23 14:04:00 EST, [...] qDay, # 90 tab(s), 3 Refill(s), Pharmacy: [facility], 177.8, cm, 02/07/23 14:35:00 EDT, Height, kg, 02/07/23 14:35:00 EDT, Dosing Weight Start Date: 02/17/23 Stop Date: 02/12/24 Status: Ordered Start: 12-26-2021 End: 12-21-2022 losartan 50 mg oral tablet D ose : 50 mg = 1 tab(s), Oral, qDay, # 90 tab(s), 3 Refill(s), Pharmacy: [facility], 175.5, cm, 09/20/21 14:05:00 EST, [...] Daily, # 90 tab(s), 3 Refill(s), Pharmacy: [facility], 175, cm, 06/04/22 14:06:00 EDT, Height, kg, 06/04/22 14:06:00 EDT, Dosing Weight Start Date: 06/04/22 Stop Date: 05/30/23 Status: Ordered Start: 06-04-2021 Paxil 40 mg or al tablet Dose : 40 mg = 1 tab(s), Oral, Daily, In absence of PCP, # 90 tab(s), 3 Refill(s), Pharmacy: [facility], 177.8, cm, 02/20/21 13:44:00 EDT, [...] BID, # 60 tab(s), 11 Refill(s), Pharmacy: [facility], 167.6, cm, 03/09/25 15:00:00 EDT, [...] 90 cap(s), 0 Refill(s), [id number], 167.6, cm, 04/26/24 13:56:00 EDT, Height, kg, 04/26/24 13:56:00 EDT, Dosing Weight Start Date: 05/01/24 Stop Date: 05/31/24 Status: Ordered predniSONE 20 mg oral tablet (1 source) Start: 02-27-2025 End: 03-02-2025 predniSONE 20 mg oral tablet Dose : 40 mg = 2 tab(s), Oral, qDayM, X 3 day(s), # 6 tab(s), 0 Refill(s), 03/02/25 8:00:00 AM EDT, Pharmacy: [facility], 167.6, cm, 02/22/25 22:34:00 EDT, [...] 30 cap(s), 1 Refill(s), [id number], 177.8, cm, 06/26/20 16:09:00 EDT, Height, kg, 06/26/20 16:09:00 EDT, Dosing Weight Start Date: 07/03/20 Status: Ordered terazosin 2 mg oral capsule (7 sources) alpha-Adrenergic Alejandro Start: 09-09-2023 teraz osin 2 mg oral capsule Dose : 2 mg = 1 cap(s), Oral, BID, # 180 cap(s), 3 Refill(s), Pharmacy: [facility], 175, cm, 09/09/23 14:33:00 EST, Height, kg, 09/09/23 14:33:00 EST, Dosing Weight Start Date: 09/09/23 Status: Ordered Start: 03-17-2023 terazosin 2 mg oral capsule Dose : 2 mg = 1 cap(s), Oral, BID, filling in lieu of pcp, # 90 cap(s), 0 Refill(s), Pharmacy: [facility], 177.8, cm, 02/07/23 14:35:00 EDT, Height, kg, 02/07/23 14:35:00 EDT, Dosing Weight Start Date: 03/17/23 Status: Ordered Start: 02-03-2023 terazosin 2 mg oral capsule Dose : 2 mg = 1 cap(s), Oral, BID, filling in lieu of pcp, # 90 cap(s), 0 Refill(s), Pharmacy: [facility], 175, cm, 01/08/23 13:11:00 EDT, Height, kg, 01/08/23 13:11:00 EDT, Dosing Weight Start Date: 02/03/23 Status: Ordered Start: 08-08-2022 terazosin 2 mg oral capsule Dose : 2 mg = 1 cap(s), Oral, BID, # 90 cap(s), 3 Refill(s), Pharmacy: [facility], 175, cm, 06/04/22 14:06:00 EDT, Height, kg, 06/04/22 14:06:00 EDT, Dosing Weight Start Date: 08/08/22 Status: Ordered Start: 01-10-2022 terazosin 2 mg oral capsule Dose : 2 mg = 1 cap(s), Oral, qHS, # 90 cap(s), 3 Refill(s), Pharmacy: [facility], 175, cm, 01/10/22 13:17:00 EDT, [...] day(s), # 30 mL, 1 Refill(s), Pharmacy: [facility] #[id number], Allergic conjunctivitis, 177.8, cm, 02/07/23 14:35:00 [...] qWeek, # 12 cap(s), 3 Refill(s), Pharmacy: [facility], 167.5, cm, 06/03/24 14:36:00 EDT, Height, kg, 06/03/24 14:36:00 EDT, Dosing Weight Start Date: 06/07/24 Status: Ordered Quantity: 12.0 Unit: cap(s) Repeat number: 4 Start: 06-07-2024 Vitamin D3 125 0 mcg (50,000 intl units) oral capsule Dose : 1,250 mcg = 1 cap(s), Oral, qWeek, # 12 cap(s), 3 Refill(s), Pharmacy: [facility], 167.5, cm, 06/03/24 14:36:00 EDT, [...] qWeek, # 12 tab(s), 3 Refill(s), Pharmacy: [facility], 167.5, cm, 07/08/24 15:00:00 EST, [...] tablet Discontinued 6 mg PO DAILY 5 0 July 09, 2023 1:00am March 23, 2025 [...] pcp, # 3 tab(s), 0 Refill(s), Pharmacy: [facility], Anxiety, 167.5, cm, 11/03/24 15:02:00 EST, [...] 1 Refill(s), 10/04/24 3:14:00 PM EST, Pharmacy: [facility], Anxiety, 167.5, cm, 08/05/24 14:30:00 EST, [...] anxiety, # 30 tab(s), 1 Refill(s), Pharmacy: [facility], Anxiety, 175, cm, 09/09/23 14:33:00 EST, Height, 89.3, kg, 09/09/23 14:33:00 EST, Dosing Weight Start Date: 09/09/23 Stop Date: 11/08/23 Status: Ordered Start: 09-12-2022 End: 11-11-2022 LORazepam 1 mg oral tablet D ose : 1 mg = 1 tab(s), Oral, qDay, PRN for anxiety, # 30 tab(s), 1 Refill(s), Pharmacy: [facility], Anxiety, 175, cm, 06/04/22 14:06:00 EDT, Height, 90.2, kg, 06/04/22 14:06:00 EDT, Dosing Weight Start Date: 09/12/22 Stop Date: 11/11/22 Status: Ordered Start: 06-04-2021 End: 11-01-2021 LORazepam 1 mg oral tablet D ose : 1 mg = 1 tab(s), Oral, qDay, PRN for anxiety, # 30 tab(s), 4 Refill(s), Pharmacy: [facility], Anxiety, 177.8, cm, 02/20/21 13:44:00 EDT, Height, [...] Onset: 10-27-2024 06-15-2024 Chronic Other acquired deformities (2 sources) Acquired kyphosis; Translations: [Unspecified kyphosis, thoracolumbar region] 03-25-2025 Chronic Other acquired deformities (1 source) Other secondary kyphosis, thoracolumbar region; Translations: [Other secondary kyphosis, thoracolumbar region] Onset: 03-27-2025 Chronic Other connective tissue disease (2 sources) [...] closed fracture] Onset: 02-22-2025 Episodic Other fractures (2 sources) Compression fracture of lumbar spine; Translations: [Wedge compression fracture of unspecified lumbar vertebra, initial encounter for closed fracture] 03-25-2025 Episodic Other fractures (1 source) Wedge compression fracture of T9-T10 vertebra, initial encounter for closed fracture; Translations: [Wedge compression fracture of T9-T10 vertebra, initial encounter for closed fracture] Onset: 03-27-2025 Episodic Other hereditary and degenerative nervous system [...] chronic pain; Translations: [Other chronic pain] Onset: 04-01-2025 Chronic Other nervous system disorders (17 sources) [...] lower leg 03-10-2025 Episodic Residual codes; unclassified (2 sources) H/O Spinal surgery; Translations: [Other specified postprocedural states] 03-25-2025 Episodic Residual codes; unclassified (1 source) Localized edema; Translations: [Localized edema] Onset: 04-04-2025 Episodic Residual codes; unclassified (1 source) Other specified postprocedural states; Translations: [Other specified postprocedural states] Onset: 03-27-2025 Episodic Respiratory failure; insufficiency; arrest (adult) (4 sources) Acute respiratory failure; Translations: [Acute respiratory failure with hypoxia] Onset: 04-23-2024 Episodic Spondylosis; intervertebral disc disorders; other back problems (12 sources) Low back pain; Translations: [Exacerbation of backache] Onset: 04-01-2025 09-09-2023 Episodic Unclassified (20 sources) Patient encounter [...] Test Name Value Interpretation Reference Range Facility Basic Metabolic Profile (BMP )on 04-04-2025 BUN/CRE 27.6 RATIO High 10-20 [facility] Comment on above: Performed By: #### L 100.0100, L500.2500 #### [facility] [address] [place], [address] Calcium [Mass/Vol] 9.8 mg/dL Normal 7.6-11.0 [facility] Comment on above: Performed By: #### L 100.0100, L500.2500 #### [facility] [address] [place], [address] Chloride [Moles/Vol] 106 mmol/L Normal 98-108 [facility] Comment on above: Performed By: #### L 100.0100, L500.2500 #### [facility] [address] [place], [address] CO2 [Moles/Vol] 26.0 mmol/L Normal 21.0-32.0 [facility] Comment on above: Performed By: #### L 100.0100, L500.2500 #### [facility] [address] [place], [address] Creatinine [Mass/Vol] 0.78 mg/dL Normal 0.70-1.20 [facility] Comment on above: Performed By: #### L 100.0100, L500.2500 #### [facility] [address] [place], [address] ECRCL 70.00 ml/min Normal 50-250 [facility] Comment on above: Performed By: #### L 100.0100, L500.2500 #### [facility] [address] [place], [address] GAP 11 Normal 5-15 [facility] Comment on above: Performed By: #### L 100.0100, L500.2500 #### [facility] [address] [place], [address] GFR/1.73 sq M.predicted among non-blacks MDRD (S/P/Bld) [Vol rate/Area] 91 mL/min/{1.73_m2} Normal >60 [facility] Comment on above: Result Comment: mL/m in/1.73m2 CKD-EPI Creatinine Equation (2020) Performed By: #### L 100.0100, L500.2500 #### [facility] [address] [place], [address] Glucose [Mass/Vol] 98 mg/dL Normal 70-99 [facility] Comment on above: Performed By: #### L 100.0100, L500.2500 #### [facility] [address] [place], [address] Potassium [Moles/Vol] 4.0 mmol/L Normal 3.3-5.1 [facility] Comment on above: Performed By: #### L 100.0100, L500.2500 #### [facility] [address] [place], [address] Sodium [Moles/Vol] 143 mmol/L Normal 133-145 [facility] Comment on above: Performed By: #### L 100.0100, L500.2500 #### [facility] [address] [place], [address] Urea nitrogen [Mass/Vol] 21 mg/dL High 4-19 [facility] Comment on above: Performed By: #### L 100.0100, L500.2500 #### [facility] [address] [place], [address] CBC W/Diff, Automatedon 08-0 4-2024 Absolute Lymph 1.40 X10 3/uL Normal 0.83-4.51 [facility] Comment on above: Performed By: #### L 100.0100, L500.2500 #### [facility] [address] [place], [address] Absolute Neut 4.9 X10 3/uL Normal 2.0-7.7 [facility] Comment on above: Performed By: #### L 100.0100, L500.2500 #### [facility] [address] [place], [address] Basophils/100 WBC (Bld) 0.4 % Normal 0-1 [facility] Comment on above: Performed By: #### L 100.0100, L500.2500 #### [facility] [address] [place], [address] Eosinophils/100 WBC (Bld) 4.2 % Normal 0-5 [facility] Comment on above: Performed By: #### L 100.0100, L500.2500 #### [facility] [address] [place], [address] Erythrocyte distribution width (RBC) [Ratio] 13.2 % Normal 11.6-14.6 [facility] Comment on above: Performed By: #### L 100.0100, L500.2500 #### [facility] [address] [place], [address] Hematocrit (Bld) [Volume fraction] 36.0 % Low 40-54 [facility] Comment on above: Performed By: #### L 100.0100, L500.2500 #### [facility] [address] [place], [address] Hemoglobin (Bld) [Mass/Vol] 12.1 g/dL Low 13.0-16.5 [facility] Comment on above: Performed By: #### L 100.0100, L500.2500 #### [facility] [address] [place], [address] IG% 0.500 Normal 0.0-0.9 [facility] Comment on above: Result Comment: IG% - Immature Granulocytes (promyelocytes, myelocytes and metamyelocytes) > 1% indicates that a LEFT SHIFT is Present. Performed By: #### L 100.0100, L500.2500 #### [facility] [address] [place], [address] Lymphocytes/100 WBC (Bld) 18.3 % Low 19-41 [facility] Comment on above: Performed By: #### L 100.0100, L500.2500 #### [facility] [address] [place], [address] MCH (RBC) [Entitic mass] 32.0 pg Normal 27.0-32.0 [facility] Comment on above: Performed By: #### L 100.0100, L500.2500 #### [facility] [address] [place], [address] MCHC (RBC) [Mass/Vol] 33.6 g/dL Normal 32-36 [facility] Comment on above: Performed By: #### L 100.0100, L500.2500 #### [facility] [address] [place], [address] MCV (RBC) [Entitic vol] 95.2 fL High 80-94 [facility] Comment on above: Performed By: #### L 100.0100, L500.2500 #### [facility] [address] [place], [address] Monocytes/100 WBC (Bld) 12.7 % High 0-10 [facility] Comment on above: Performed By: #### L 100.0100, L500.2500 #### [facility] [address] [place], [address] Neutrophils/100 WBC (Bld) 63.9 % Normal 47-70 [facility] Comment on above: Performed By: #### L 100.0100, L500.2500 #### [facility] [address] [place], [address] Nucleated RBC (Bld) [#/Vol] 0 10*3/uL Normal 0-5 [facility] Comment on above: Performed By: #### L 100.0100, L500.2500 #### [facility] [address] [place], [address] Platelet mean volume (Bld) [Entitic vol] 9.3 fL Normal 6.2-12.0 [facility] Comment on above: Performed By: #### L 100.0100, L500.2500 #### [facility] [address] [place], [address] Platelets (Bld) [#/Vol] 253 10*3/uL Normal 150-450 [facility] Comment on above: Performed By: #### L 100.0100, L500.2500 #### [facility] [address] [place], [address] RBC (Bld) [#/Vol] 3.78 10*6/uL Low 4.6-6.2 [facility] Comment on above: Performed By: #### L 100.0100, L500.2500 #### [facility] [address] [place], [address] RDW SD 45.9 fl High 35.1-43.9 [facility] Comment on above: Performed By: #### L 100.0100, L500.2500 #### [facility] [address] [place], [address] WBC (Bld) [#/Vol] 7.7 10*3/uL Normal 4.4-11.0 [facility] Comment on above: Performed By: #### L 100.0100, L500.2500 #### [facility] [address] [place], [address] Basic Metabolic Profile (BMP )on 04-01-2025 BUN Normal 4-19 [facility] Comment on above: Result Comment: Canc elled via OM: Order cancelled - Patient discharged Performed By: #### L 100.0100, L500.2500 #### [facility] [address] [place], [address] BUN/CRE Normal 10-20 [facility] Comment on above: Result Comment: Canc elled via OM: Order cancelled - Patient discharged Performed By: #### L 100.0100, L500.2500 #### [facility] [address] [place], [address] Calcium Normal 7.6-11.0 [facility] Comment on above: Result Comment: Canc elled via OM: Order cancelled - Patient discharged Performed By: #### L 100.0100, L500.2500 #### [facility] [address] [place], [address] CL Normal 98-108 [facility] Comment on above: Result Comment: Canc elled via OM: Order cancelled - Patient discharged Performed By: #### L 100.0100, L500.2500 #### [facility] [address] [place], [address] CO2 Normal 21.0-32.0 [facility] Comment on above: Result Comment: Canc elled via OM: Order cancelled - Patient discharged Performed By: #### L 100.0100, L500.2500 #### [facility] [address] [place], [address] CREAT,SERUM Normal 0.70-1.20 [facility] Comment on above: Result Comment: Canc elled via OM: Order cancelled - Patient discharged Performed By: #### L 100.0100, L500.2500 #### [facility] [address] [place], [address] eGFR Normal >60 [facility] Comment on above: Result Comment: Canc elled via OM: Order cancelled - Patient discharged Performed By: #### L 100.0100, L500.2500 #### [facility] [address] [place], [address] GAP Normal 5-15 [facility] Comment on above: Result Comment: Canc elled via OM: Order cancelled - Patient discharged Performed By: #### L 100.0100, L500.2500 #### [facility] [address] [place], [address] GLU Normal 70-99 [facility] Comment on above: Result Comment: Canc elled via OM: Order cancelled - Patient discharged Performed By: #### L 100.0100, L500.2500 #### [facility] [address] [place], [address] Potassium Normal 3.3-5.1 [facility] Comment on above: Result Comment: Canc elled via OM: Order cancelled - Patient discharged Performed By: #### L 100.0100, L500.2500 #### [facility] [address] [place], [address] Basic Metabolic Profile (BMP) Normal 133-145 [facility] Comment on above: Result Comment: Canc elled via OM: Order cancelled - Patient discharged Performed By: #### L 100.0100, L500.2500 #### [facility] [address] [place], [address] CBC W/Diff, Automatedon 08-0 -2024 Absolute Neut Normal 2.0-7.7 [facility] Comment on above: Result Comment: Canc elled via OM: Order cancelled - Patient discharged Performed By: #### L 100.0100, L500.2500 #### [facility] [address] [place], [address] HCT Normal 40-54 [facility] Comment on above: Result Comment: Canc elled via OM: Order cancelled - Patient discharged Performed By: #### L 100.0100, L500.2500 #### [facility] [address] [place], [address] HGB Normal 13.0-16.5 [facility] Comment on above: Result Comment: Canc elled via OM: Order cancelled - Patient discharged Performed By: #### L 100.0100, L500.2500 #### [facility] [address] [place], [address] MCH Normal 27.0-32.0 [facility] Comment on above: Result Comment: Canc elled via OM: Order cancelled - Patient discharged Performed By: #### L 100.0100, L500.2500 #### [facility] [address] [place], [address] MCHC Normal 32-36 [facility] Comment on above: Result Comment: Canc elled via OM: Order cancelled - Patient discharged Performed By: #### L 100.0100, L500.2500 #### [facility] [address] [place], [address] MCV Normal 80-94 [facility] Comment on above: Result Comment: Canc elled via OM: Order cancelled - Patient discharged Performed By: #### L 100.0100, L500.2500 #### [facility] [address] [place], [address] NEUT% Normal 47-70 [facility] Comment on above: Result Comment: Canc elled via OM: Order cancelled - Patient discharged Performed By: #### L 100.0100, L500.2500 #### [facility] [address] [place], [address] PLT Normal 150-450 [facility] Comment on above: Result Comment: Canc elled via OM: Order cancelled - Patient discharged Performed By: #### L 100.0100, L500.2500 #### [facility] [address] [place], [address] RBC Normal 4.6-6.2 [facility] Comment on above: Result Comment: Canc elled via OM: Order cancelled - Patient discharged Performed By: #### L 100.0100, L500.2500 #### [facility] [address] [place], [address] RDW CV Normal 11.6-14.6 [facility] Comment on above: Result Comment: Canc elled via OM: Order cancelled - Patient discharged Performed By: #### L 100.0100, L500.2500 #### [facility] [address] [place], [address] RDW SD Normal 35.1-43.9 [facility] Comment on above: Result Comment: Canc elled via OM: Order cancelled - Patient discharged Performed By: #### L 100.0100, L500.2500 #### [facility] [address] [place], [address] WBC Normal 4.4-11.0 [facility] Comment on above: Result Comment: Canc elled via OM: Order cancelled - Patient discharged Performed By: #### L 100.0100, L500.2500 #### [facility] [address] [place], [address] Urine Cultureon 04-01-2025 URC Below infection level. Mixed Gram Positive Organisms [place] Count 1000-10,000 MIXC Mixed contaminants. Submit a new specimen if indicated. Normal [facility] Comment on above: Performed By: #### M 100.2200, L400.0001 #### [facility] [address] [place], [address] Basic Metabolic Profile (BMP )on 03-31-2025 BUN/CRE 21.2 RATIO High 10-20 [facility] Comment on above: Performed By: #### L 500.2500 #### [facility] [address] [place], [address] Calcium [Mass/Vol] 9.2 mg/dL Normal 7.6-11.0 [facility] Comment on above: Performed By: #### L 500.2500 #### [facility] [address] [place], [address] Chloride [Moles/Vol] 103 mmol/L Normal 98-108 [facility] Comment on above: Performed By: #### L 500.2500 #### [facility] [address] [place], [address] CO2 [Moles/Vol] 28.1 mmol/L Normal 21.0-32.0 [facility] Comment on above: Performed By: #### L 500.2500 #### [facility] [address] [place], [address] Creatinine [Mass/Vol] 0.68 mg/dL Low 0.70-1.20 [facility] Comment on above: Performed By: #### L 500.2500 #### [facility] [address] [place], [address] ECRCL 70.00 ml/min Normal 50-250 [facility] Comment on above: Performed By: #### L 500.2500 #### [facility] [address] [place], [address] GAP 11 Normal 5-15 [facility] Comment on above: Performed By: #### L 500.2500 #### [facility] [address] [place], [address] GFR/1.73 sq M.predicted among non-blacks MDRD (S/P/Bld) [Vol rate/Area] 95 mL/min/{1.73_m2} Normal >60 [facility] Comment on above: Result Comment: mL/m in/1.73m2 CKD-EPI Creatinine Equation (2020) Performed By: #### L 500.2500 #### [facility] [address] [place], [address] Glucose [Mass/Vol] 100 mg/dL High 70-99 [facility] Comment on above: Performed By: #### L 500.2500 #### [facility] [address] [place], [address] Potassium [Moles/Vol] 3.6 mmol/L Normal 3.3-5.1 [facility] Comment on above: Performed By: #### L 500.2500 #### [facility] [address] [place], [address] Sodium [Moles/Vol] 143 mmol/L Normal 133-145 [facility] Comment on above: Performed By: #### L 500.2500 #### [facility] [address] [place], [address] Urea nitrogen [Mass/Vol] 14 mg/dL Normal 4-19 [facility] Comment on above: Performed By: #### L 500.2500 #### [facility] [address] [place], [address] BUN Normal 4-19 [facility] Comment on above: Result Comment: Canc elled via OM: Order cancelled - Patient discharged Performed By: #### L 100.0100, L500.2500 ####[facility] [address] [place], [address] BUN/CRE Normal 10-20 [facility] Comment on above: Result Comment: Canc elled via OM: Order cancelled - Patient discharged Performed By: #### L 100.0100, L500.2500 ####[facility] [address] [place], [address] Calcium Normal 7.6-11.0 [facility] Comment on above: Result Comment: Canc elled via OM: Order cancelled - Patient discharged Performed By: #### L 100.0100, L500.2500 ####[facility] [address] [place], [address] CL Normal 98-108 [facility] Comment on above: Result Comment: Canc elled via OM: Order cancelled - Patient discharged Performed By: #### L 100.0100, L500.2500 ####[facility] [address] [place], [address] CO2 Normal 21.0-32.0 [facility] Comment on above: Result Comment: Canc elled via OM: Order cancelled - Patient discharged Performed By: #### L 100.0100, L500.2500 ####[facility] [address] [place], [address] CREAT,SERUM Normal 0.70-1.20 [facility] Comment on above: Result Comment: Canc elled via OM: Order cancelled - Patient discharged Performed By: #### L 100.0100, L500.2500 ####[facility] [address] [place], [address] eGFR Normal >60 [facility] Comment on above: Result Comment: Canc elled via OM: Order cancelled - Patient discharged Performed By: #### L 100.0100, L500.2500 ####[facility] [address] [place], [address] GAP Normal 5-15 [facility] Comment on above: Result Comment: Canc elled via OM: Order cancelled - Patient discharged Performed By: #### L 100.0100, L500.2500 ####[facility] [address] [place], [address] GLU Normal 70-99 [facility] Comment on above: Result Comment: Canc elled via OM: Order cancelled - Patient discharged Performed By: #### L 100.0100, L500.2500 ####[facility] [address] [place], [address] Potassium Normal 3.3-5.1 [facility] Comment on above: Result Comment: Canc elled via OM: Order cancelled - Patient discharged Performed By: #### L 100.0100, L500.2500 ####[facility] [address] [place], [address] Basic Metabolic Profile (BMP) Normal 133-145 [facility] Comment on above: Result Comment: Canc elled via OM: Order cancelled - Patient discharged Performed By: #### L 100.0100, L500.2500 ####[facility] [address] [place], [address] CBC W/Diff, Automatedon 07-3 Absolute Neut Normal 2.0-7.7 [facility] Comment on above: Result Comment: Canc elled via OM: Order cancelled - Patient discharged Performed By: #### L 100.0100, L500.2500 ####[facility] [address] [place], [address] HCT Normal 40-54 [facility] Comment on above: Result Comment: Canc elled via OM: Order cancelled - Patient discharged Performed By: #### L 100.0100, L500.2500 ####[facility] [address] [place], [address] HGB Normal 13.0-16.5 [facility] Comment on above: Result Comment: Canc elled via OM: Order cancelled - Patient discharged Performed By: #### L 100.0100, L500.2500 ####[facility] [address] [place], [address] MCH Normal 27.0-32.0 [facility] Comment on above: Result Comment: Canc elled via OM: Order cancelled - Patient discharged Performed By: #### L 100.0100, L500.2500 ####[facility] [address] [place], [address] MCHC Normal 32-36 [facility] Comment on above: Result Comment: Canc elled via OM: Order cancelled - Patient discharged Performed By: #### L 100.0100, L500.2500 ####[facility] [address] [place], [address] MCV Normal 80-94 [facility] Comment on above: Result Comment: Canc elled via OM: Order cancelled - Patient discharged Performed By: #### L 100.0100, L500.2500 ####[facility] [address] [place], [address] NEUT% Normal 47-70 [facility] Comment on above: Result Comment: Canc elled via OM: Order cancelled - Patient discharged Performed By: #### L 100.0100, L500.2500 ####[facility] [address] [place], [address] PLT Normal 150-450 [facility] Comment on above: Result Comment: Canc elled via OM: Order cancelled - Patient discharged Performed By: #### L 100.0100, L500.2500 ####[facility] [address] [place], [address] RBC Normal 4.6-6.2 [facility] Comment on above: Result Comment: Canc elled via OM: Order cancelled - Patient discharged Performed By: #### L 100.0100, L500.2500 ####[facility] [address] [place], [address] RDW CV Normal 11.6-14.6 [facility] Comment on above: Result Comment: Canc elled via OM: Order cancelled - Patient discharged Performed By: #### L 100.0100, L500.2500 ####[facility] [address] [place], [address] RDW SD Normal 35.1-43.9 [facility] Comment on above: Result Comment: Canc elled via OM: Order cancelled - Patient discharged Performed By: #### L 100.0100, L500.2500 ####[facility] [address] [place], [address] WBC Normal 4.4-11.0 [facility] Comment on above: Result Comment: Canc elled via OM: Order cancelled - Patient discharged Performed By: #### L 100.0100, L500.2500 ####[facility] [address] [place], [address] Basic Metabolic Profile (BMP )on 03-30-2025 BUN/CRE 26.9 RATIO High 10-20 [facility] Comment on above: Performed By: #### L 500.2500 #### [facility] [address] [place], [address] Calcium [Mass/Vol] 9.3 mg/dL Normal 7.6-11.0 [facility] Comment on above: Performed By: #### L 500.2500 #### [facility] [address] [place], [address] Chloride [Moles/Vol] 101 mmol/L Normal 98-108 [facility] Comment on above: Performed By: #### L 500.2500 #### [facility] [address] [place], [address] CO2 [Moles/Vol] 30.9 mmol/L Normal 21.0-32.0 [facility] Comment on above: Performed By: #### L 500.2500 #### [facility] [address] [place], [address] Creatinine [Mass/Vol] 0.68 mg/dL Low 0.70-1.20 [facility] Comment on above: Performed By: #### L 500.2500 #### [facility] [address] [place], [address] ECRCL 70.00 ml/min Normal 50-250 [facility] Comment on above: Performed By: #### L 500.2500 #### [facility] [address] [place], [address] GAP 10 Normal 5-15 [facility] Comment on above: Performed By: #### L 500.2500 #### [facility] [address] [place], [address] GFR/1.73 sq M.predicted among non-blacks MDRD (S/P/Bld) [Vol rate/Area] 94 mL/min/{1.73_m2} Normal >60 [facility] Comment on above: Result Comment: mL/m in/1.73m2 CKD-EPI Creatinine Equation (2020) Performed By: #### L 500.2500 #### [facility] [address] [place], [address] Glucose [Mass/Vol] 101 mg/dL High 70-99 [facility] Comment on above: Performed By: #### L 500.2500 #### [facility] [address] [place], [address] Potassium [Moles/Vol] 3.7 mmol/L Normal 3.3-5.1 [facility] Comment on above: Result Comment: Hemo lysis present, Results??could be affected. ?? Performed By: #### L 500.2500 #### [facility] [address] [place], [address] Sodium [Moles/Vol] 142 mmol/L Normal 133-145 [facility] Comment on above: Performed By: #### L 500.2500 #### [facility] [address] [place], [address] Urea nitrogen [Mass/Vol] 18 mg/dL Normal 4-19 [facility] Comment on above: Performed By: #### L 500.2500 #### [facility] [address] [place], [address] BUN Normal 4-19 [facility] Comment on above: Result Comment: Canc elled via OM: Order cancelled - Patient discharged Performed By: #### L 100.0100, L500.2500 ####[facility] [address] [place], [address] BUN/CRE Normal 10-20 [facility] Comment on above: Result Comment: Canc elled via OM: Order cancelled - Patient discharged Performed By: #### L 100.0100, L500.2500 ####[facility] [address] [place], [address] Calcium Normal 7.6-11.0 [facility] Comment on above: Result Comment: Canc elled via OM: Order cancelled - Patient discharged Performed By: #### L 100.0100, L500.2500 ####[facility] [address] [place], [address] CL Normal 98-108 [facility] Comment on above: Result Comment: Canc elled via OM: Order cancelled - Patient discharged Performed By: #### L 100.0100, L500.2500 ####[facility] [address] [place], [address] CO2 Normal 21.0-32.0 [facility] Comment on above: Result Comment: Canc elled via OM: Order cancelled - Patient discharged Performed By: #### L 100.0100, L500.2500 ####[facility] [address] [place], [address] CREAT,SERUM Normal 0.70-1.20 [facility] Comment on above: Result Comment: Canc elled via OM: Order cancelled - Patient discharged Performed By: #### L 100.0100, L500.2500 ####[facility] [address] [place], [address] eGFR Normal >60 [facility] Comment on above: Result Comment: Canc elled via OM: Order cancelled - Patient discharged Performed By: #### L 100.0100, L500.2500 ####[facility] [address] [place], [address] GAP Normal 5-15 [facility] Comment on above: Result Comment: Canc elled via OM: Order cancelled - Patient discharged Performed By: #### L 100.0100, L500.2500 ####[facility] [address] [place], [address] GLU Normal 70-99 [facility] Comment on above: Result Comment: Canc elled via OM: Order cancelled - Patient discharged Performed By: #### L 100.0100, L500.2500 ####[facility] [address] [place], [address] Potassium Normal 3.3-5.1 [facility] Comment on above: Result Comment: Canc elled via OM: Order cancelled - Patient discharged Performed By: #### L 100.0100, L500.2500 ####[facility] [address] [place], [address] Basic Metabolic Profile (BMP) Normal 133-145 [facility] Comment on above: Result Comment: Canc elled via OM: Order cancelled - Patient discharged Performed By: #### L 100.0100, L500.2500 ####[facility] [address] [place], [address] CBC W/Diff, Automatedon 07-3 0-2024 Absolute Neut Normal 2.0-7.7 [facility] Comment on above: Result Comment: Canc elled via OM: Order cancelled - Patient discharged Performed By: #### L 100.0100, L500.2500 ####[facility] [address] [place], [address] HCT Normal 40-54 [facility] Comment on above: Result Comment: Canc elled via OM: Order cancelled - Patient discharged Performed By: #### L 100.0100, L500.2500 ####[facility] [address] [place], [address] HGB Normal 13.0-16.5 [facility] Comment on above: Result Comment: Canc elled via OM: Order cancelled - Patient discharged Performed By: #### L 100.0100, L500.2500 ####[facility] [address] [place], [address] MCH Normal 27.0-32.0 [facility] Comment on above: Result Comment: Canc elled via OM: Order cancelled - Patient discharged Performed By: #### L 100.0100, L500.2500 ####[facility] [address] [place], [address] MCHC Normal 32-36 [facility] Comment on above: Result Comment: Canc elled via OM: Order cancelled - Patient discharged Performed By: #### L 100.0100, L500.2500 ####[facility] [address] [place], [address] MCV Normal 80-94 [facility] Comment on above: Result Comment: Canc elled via OM: Order cancelled - Patient discharged Performed By: #### L 100.0100, L500.2500 ####[facility] [address] [place], [address] NEUT% Normal 47-70 [facility] Comment on above: Result Comment: Canc elled via OM: Order cancelled - Patient discharged Performed By: #### L 100.0100, L500.2500 ####[facility] [address] [place], [address] PLT Normal 150-450 [facility] Comment on above: Result Comment: Canc elled via OM: Order cancelled - Patient discharged Performed By: #### L 100.0100, L500.2500 ####[facility] [address] [place], [address] RBC Normal 4.6-6.2 [facility] Comment on above: Result Comment: Canc elled via OM: Order cancelled - Patient discharged Performed By: #### L 100.0100, L500.2500 ####[facility] [address] [place], [address] RDW CV Normal 11.6-14.6 [facility] Comment on above: Result Comment: Canc elled via OM: Order cancelled - Patient discharged Performed By: #### L 100.0100, L500.2500 ####[facility] [address] [place], [address] RDW SD Normal 35.1-43.9 [facility] Comment on above: Result Comment: Canc elled via OM: Order cancelled - Patient discharged Performed By: #### L 100.0100, L500.2500 ####[facility] [address] [place], [address] WBC Normal 4.4-11.0 [facility] Comment on above: Result Comment: Canc elled via OM: Order cancelled - Patient discharged Performed By: #### L 100.0100, L500.2500 ####[facility] [address] [place], [address] Urinalysis, Completeon 03-30 EPI,SQUAMOUS 0-5 SEEN Normal 0-5 [facility] Comment on above: Order Comment: CLEAN CATCH Performed By: #### M 100.2200, L400.0001 #### [facility] [address] [place], [address] WBC 0-5 SEEN Normal 0-5 [facility] Comment on above: Order Comment: CLEAN CATCH Performed By: #### M 100.2200, L400.0001 #### [facility] [address] [place], [address] BACTERIA 0 SEEN Normal None Seen [facility] Comment on above: Order Comment: CLEAN CATCH Performed By: #### M 100.2200, L400.0001 #### [facility] [address] [place], [address] Mucus Ql (Urine sed) 0 SEEN Normal [facility] Comment on above: Order Comment: CLEAN CATCH Performed By: #### M 100.2200, L400.0001 #### [facility] [address] [place], [address] RBC 0 SEEN Normal 0-5 [facility] Comment on above: Order Comment: CLEAN CATCH Performed By: #### M 100.2200, L400.0001 #### [facility] [address] [place], [address] Basic Metabolic Profile (BMP )on 03-29-2025 BUN/CRE 23.5 RATIO High 10-20 [facility] Comment on above: Performed By: #### L 100.0100, L500.2500 #### [facility] [address] [place], [address] Calcium [Mass/Vol] 9.4 mg/dL Normal 7.6-11.0 [facility] Comment on above: Performed By: #### L 100.0100, L500.2500 #### [facility] [address] [place], [address] Chloride [Moles/Vol] 102 mmol/L Normal 98-108 [facility] Comment on above: Performed By: #### L 100.0100, L500.2500 #### [facility] [address] [place], [address] CO2 [Moles/Vol] 31.5 mmol/L Normal 21.0-32.0 [facility] Comment on above: Performed By: #### L 100.0100, L500.2500 #### [facility] [address] [place], [address] Creatinine [Mass/Vol] 0.68 mg/dL Low 0.70-1.20 [facility] Comment on above: Performed By: #### L 100.0100, L500.2500 #### [facility] [address] [place], [address] ECRCL 70.00 ml/min Normal 50-250 [facility] Comment on above: Performed By: #### L 100.0100, L500.2500 #### [facility] [address] [place], [address] GAP 10 Normal 5-15 [facility] Comment on above: Performed By: #### L 100.0100, L500.2500 #### [facility] [address] [place], [address] GFR/1.73 sq M.predicted among non-blacks MDRD (S/P/Bld) [Vol rate/Area] 95 mL/min/{1.73_m2} Normal >60 [facility] Comment on above: Result Comment: mL/m in/1.73m2 CKD-EPI Creatinine Equation (2020) Performed By: #### L 100.0100, L500.2500 #### [facility] [address] [place], [address] Glucose [Mass/Vol] 103 mg/dL High 70-99 [facility] Comment on above: Performed By: #### L 100.0100, L500.2500 #### [facility] [address] [place], [address] Potassium [Moles/Vol] 3.6 mmol/L Normal 3.3-5.1 [facility] Comment on above: Performed By: #### L 100.0100, L500.2500 #### [facility] [facility] [address] [place], [address] Sodium [Moles/Vol] 144 mmol/L Normal 133-145 [facility] Comment on above: Performed By: #### L 100.0100, L500.2500 #### [facility] [address] [place], [address] Urea nitrogen [Mass/Vol] 16 mg/dL Normal 4-19 [facility] Comment on above: Performed By: #### L 100.0100, L500.2500 #### [facility] [address] [place], [address] BUN Normal 4-19 [facility] Comment on above: Result Comment: Canc elled via OM: Order cancelled - Patient discharged Performed By: #### L 100.0100, L500.2500 #### [facility] [address] [place], [address] BUN/CRE Normal 10-20 [facility] Comment on above: Result Comment: Canc elled via OM: Order cancelled - Patient discharged Performed By: #### L 100.0100, L500.2500 #### [facility] [address] [place], [address] Calcium Normal 7.6-11.0 [facility] Comment on above: Result Comment: Canc elled via OM: Order cancelled - Patient discharged Performed By: #### L 100.0100, L500.2500 #### [facility] [address] [place], [address] CL Normal 98-108 [facility] Comment on above: Result Comment: Canc elled via OM: Order cancelled - Patient discharged Performed By: #### L 100.0100, L500.2500 #### [facility] [address] [place], [address] CO2 Normal 21.0-32.0 [facility] Comment on above: Result Comment: Canc elled via OM: Order cancelled - Patient discharged Performed By: #### L 100.0100, L500.2500 #### [facility] [address] [place], [address] CREAT,SERUM Normal 0.70-1.20 [facility] Comment on above: Result Comment: Canc elled via OM: Order cancelled - Patient discharged Performed By: #### L 100.0100, L500.2500 #### [facility] [address] [place], [address] eGFR Normal >60 [facility] Comment on above: Result Comment: Canc elled via OM: Order cancelled - Patient discharged Performed By: #### L 100.0100, L500.2500 #### [facility] [address] [place], [address] GAP Normal 5-15 [facility] Comment on above: Result Comment: Canc elled via OM: Order cancelled - Patient discharged Performed By: #### L 100.0100, L500.2500 #### [facility] [address] [place], [address] GLU Normal 70-99 [facility] Comment on above: Result Comment: Canc elled via OM: Order cancelled - Patient discharged Performed By: #### L 100.0100, L500.2500 #### [facility] [address] [place], [address] Potassium Normal 3.3-5.1 [facility] Comment on above: Result Comment: Canc elled via OM: Order cancelled - Patient discharged Performed By: #### L 100.0100, L500.2500 #### [facility] [address] [place], [address] Basic Metabolic Profile (BMP) Normal 133-145 [facility] Comment on above: Result Comment: Canc elled via OM: Order cancelled - Patient discharged Performed By: #### L 100.0100, L500.2500 #### [facility] [address] [place], [address] CBC W/Diff, Automatedon 07-2 Absolute Neut Normal 2.0-7.7 [facility] Comment on above: Result Comment: Canc elled via OM: Order cancelled - Patient discharged Performed By: #### L 100.0100, L500.2500 #### [facility] [address] [place], [address] HCT Normal 40-54 [facility] Comment on above: Result Comment: Canc elled via OM: Order cancelled - Patient discharged Performed By: #### L 100.0100, L500.2500 #### [facility] [address] [place], [address] HGB Normal 13.0-16.5 [facility] Comment on above: Result Comment: Canc elled via OM: Order cancelled - Patient discharged Performed By: #### L 100.0100, L500.2500 #### [facility] [address] [place], [address] MCH Normal 27.0-32.0 [facility] Comment on above: Result Comment: Canc elled via OM: Order cancelled - Patient discharged Performed By: #### L 100.0100, L500.2500 #### [facility] [address] [place], [address] MCHC Normal 32-36 [facility] Comment on above: Result Comment: Canc elled via OM: Order cancelled - Patient discharged Performed By: #### L 100.0100, L500.2500 #### [facility] [address] [place], [address] MCV Normal 80-94 [facility] Comment on above: Result Comment: Canc elled via OM: Order cancelled - Patient discharged Performed By: #### L 100.0100, L500.2500 #### [facility] [address] [place], [address] NEUT% Normal 47-70 [facility] Comment on above: Result Comment: Canc elled via OM: Order cancelled - Patient discharged Performed By: #### L 100.0100, L500.2500 #### [facility] [address] [place], [address] PLT Normal 150-450 [facility] Comment on above: Result Comment: Canc elled via OM: Order cancelled - Patient discharged Performed By: #### L 100.0100, L500.2500 #### [facility] [address] [place], [address] RBC Normal 4.6-6.2 [facility] Comment on above: Result Comment: Canc elled via OM: Order cancelled - Patient discharged Performed By: #### L 100.0100, L500.2500 #### [facility] [address] [place], [address] RDW CV Normal 11.6-14.6 [facility] Comment on above: Result Comment: Canc elled via OM: Order cancelled - Patient discharged Performed By: #### L 100.0100, L500.2500 #### [facility] [address] [place], [address] RDW SD Normal 35.1-43.9 [facility] Comment on above: Result Comment: Canc elled via OM: Order cancelled - Patient discharged Performed By: #### L 100.0100, L500.2500 #### [facility] [address] [place], [address] WBC Normal 4.4-11.0 [facility] Comment on above: Result Comment: Canc elled via OM: Order cancelled - Patient discharged Performed By: #### L 100.0100, L500.2500 #### [facility] [address] [place], [address] Basic Metabolic Profile (BMP )on 03-28-2025 BUN/CRE 24.8 RATIO High 10-20 [facility] Comment on above: Performed By: #### L 100.0100, L500.2500 #### [facility] [address] [place], [address] Calcium [Mass/Vol] 8.8 mg/dL Normal 7.6-11.0 [facility] Comment on above: Performed By: #### L 100.0100, L500.2500 #### [facility] [address] [place], [address] Chloride [Moles/Vol] 103 mmol/L Normal 98-108 [facility] Comment on above: Performed By: #### L 100.0100, L500.2500 #### [facility] [address] [place], [address] CO2 [Moles/Vol] 31.7 mmol/L Normal 21.0-32.0 [facility] Comment on above: Performed By: #### L 100.0100, L500.2500 #### [facility] [address] [place], [address] Creatinine [Mass/Vol] 0.68 mg/dL Low 0.70-1.20 [facility] Comment on above: Performed By: #### L 100.0100, L500.2500 #### [facility] [address] [place], [address] ECRCL 70.00 ml/min Normal 50-250 [facility] Comment on above: Performed By: #### L 100.0100, L500.2500 #### [facility] [address] [place], [address] GAP 9 Normal 5-15 [facility] Comment on above: Performed By: #### L 100.0100, L500.2500 #### [facility] [address] [place], [address] GFR/1.73 sq M.predicted among non-blacks MDRD (S/P/Bld) [Vol rate/Area] 95 mL/min/{1.73_m2} Normal >60 [facility] Comment on above: Result Comment: mL/m in/1.73m2 CKD-EPI Creatinine Equation (2020) Performed By: #### L 100.0100, L500.2500 #### [facility] [address] [place], [address] Glucose [Mass/Vol] 103 mg/dL High 70-99 [facility] Comment on above: Performed By: #### L 100.0100, L500.2500 #### [facility] [address] [place], [address] Potassium [Moles/Vol] 3.2 mmol/L Low 3.3-5.1 [facility] Comment on above: Performed By: #### L 100.0100, L500.2500 #### [facility] [address] [place], [address] Sodium [Moles/Vol] 144 mmol/L Normal 133-145 [facility] Comment on above: Performed By: #### L 100.0100, L500.2500 #### [facility] [address] [place], [address] Urea nitrogen [Mass/Vol] 17 mg/dL Normal 4-19 [facility] Comment on above: Performed By: #### L 100.0100, L500.2500 #### [facility] [address] [place], [address] BUN Normal 4-19 [facility] Comment on above: Result Comment: Canc elled via OM: Order cancelled - Patient discharged Performed By: #### L 100.0100, L500.2500 #### [facility] [address] [place], [address] BUN/CRE Normal 10-20 [facility] Comment on above: Result Comment: Canc elled via OM: Order cancelled - Patient discharged Performed By: #### L 100.0100, L500.2500 #### [facility] [address] [place], [address] Calcium Normal 7.6-11.0 [facility] Comment on above: Result Comment: Canc elled via OM: Order cancelled - Patient discharged Performed By: #### L 100.0100, L500.2500 #### [facility] [address] [place], [address] CL Normal 98-108 [facility] Comment on above: Result Comment: Canc elled via OM: Order cancelled - Patient discharged Performed By: #### L 100.0100, L500.2500 #### [facility] [address] [place], [address] CO2 Normal 21.0-32.0 [facility] Comment on above: Result Comment: Canc elled via OM: Order cancelled - Patient discharged Performed By: #### L 100.0100, L500.2500 #### [facility] [address] [place], [address] CREAT,SERUM Normal 0.70-1.20 [facility] Comment on above: Result Comment: Canc elled via OM: Order cancelled - Patient discharged Performed By: #### L 100.0100, L500.2500 #### [facility] [address] [place], [address] eGFR Normal >60 [facility] Comment on above: Result Comment: Canc elled via OM: Order cancelled - Patient discharged Performed By: #### L 100.0100, L500.2500 #### [facility] [address] [place], [address] GAP Normal 5-15 [facility] Comment on above: Result Comment: Canc elled via OM: Order cancelled - Patient discharged Performed By: #### L 100.0100, L500.2500 #### [facility] [address] [place], [address] GLU Normal 70-99 [facility] Comment on above: Result Comment: Canc elled via OM: Order cancelled - Patient discharged Performed By: #### L 100.0100, L500.2500 #### [facility] [address] [place], [address] Potassium Normal 3.3-5.1 [facility] Comment on above: Result Comment: Canc elled via OM: Order cancelled - Patient discharged Performed By: #### L 100.0100, L500.2500 #### [facility] [address] [place], [address] Basic Metabolic Profile (BMP) Normal 133-145 [facility] Comment on above: Result Comment: Canc elled via OM: Order cancelled - Patient discharged Performed By: #### L 100.0100, L500.2500 #### [facility] [address] [place], [address] CBC W/Diff, Automatedon 07-2 Absolute Neut Normal 2.0-7.7 [facility] Comment on above: Result Comment: Canc elled via OM: Order cancelled - Patient discharged Performed By: #### L 100.0100, L500.2500 #### [facility] [address] [place], [address] HCT Normal 40-54 [facility] Comment on above: Result Comment: Canc elled via OM: Order cancelled - Patient discharged Performed By: #### L 100.0100, L500.2500 #### [facility] [address] [place], [address] HGB Normal 13.0-16.5 [facility] Comment on above: Result Comment: Canc elled via OM: Order cancelled - Patient discharged Performed By: #### L 100.0100, L500.2500 #### [facility] [address] [place], [address] MCH Normal 27.0-32.0 [facility] Comment on above: Result Comment: Canc elled via OM: Order cancelled - Patient discharged Performed By: #### L 100.0100, L500.2500 #### [facility] [address] [place], [address] MCHC Normal 32-36 [facility] Comment on above: Result Comment: Canc elled via OM: Order cancelled - Patient discharged Performed By: #### L 100.0100, L500.2500 #### [facility] [address] [place], [address] MCV Normal 80-94 [facility] Comment on above: Result Comment: Canc elled via OM: Order cancelled - Patient discharged Performed By: #### L 100.0100, L500.2500 #### [facility] [address] [place], [address] NEUT% Normal 47-70 [facility] Comment on above: Result Comment: Canc elled via OM: Order cancelled - Patient discharged Performed By: #### L 100.0100, L500.2500 #### [facility] [address] [place], [address] PLT Normal 150-450 [facility] Comment on above: Result Comment: Canc elled via OM: Order cancelled - Patient discharged Performed By: #### L 100.0100, L500.2500 #### [facility] [address] [place], [address] RBC Normal 4.6-6.2 [facility] Comment on above: Result Comment: Canc elled via OM: Order cancelled - Patient discharged Performed By: #### L 100.0100, L500.2500 #### [facility] [address] [place], [address] RDW CV Normal 11.6-14.6 [facility] Comment on above: Result Comment: Canc elled via OM: Order cancelled - Patient discharged Performed By: #### L 100.0100, L500.2500 #### [facility] [address] [place], [address] RDW SD Normal 35.1-43.9 [facility] Comment on above: Result Comment: Canc elled via OM: Order cancelled - Patient discharged Performed By: #### L 100.0100, L500.2500 #### [facility] [address] [place], [address] WBC Normal 4.4-11.0 [facility] Comment on above: Result Comment: Canc elled via OM: Order cancelled - Patient discharged Performed By: #### L 100.0100, L500.2500 #### [facility] [address] [place], [address] Absolute Lymph 1.08 X10 3/uL Normal 0.83-4.51 [facility] Comment on above: Performed By: #### L 100.0100, L500.2500 #### [facility] [address] [place], [address] Absolute Neut 4.0 X10 3/uL Normal 2.0-7.7 [facility] Comment on above: Performed By: #### L 100.0100, L500.2500 #### [facility] [address] [place], [address] Basophils/100 WBC (Bld) 0.3 % Normal 0-1 [facility] Comment on above: Performed By: #### L 100.0100, L500.2500 #### [facility] [address] [place], [address] Eosinophils/100 WBC (Bld) 6.6 % High 0-5 [facility] Comment on above: Performed By: #### L 100.0100, L500.2500 #### [facility] [address] [place], [address] Erythrocyte distribution width (RBC) [Ratio] 13.4 % Normal 11.6-14.6 [facility] Comment on above: Performed By: #### L 100.0100, L500.2500 #### [facility] [address] [place], [address] Hematocrit (Bld) [Volume fraction] 33.6 % Low 40-54 [facility] Comment on above: Performed By: #### L 100.0100, L500.2500 #### [facility] [address] [place], [address] Hemoglobin (Bld) [Mass/Vol] 11.1 g/dL Low 13.0-16.5 [facility] Comment on above: Performed By: #### L 100.0100, L500.2500 #### [facility] [address] [place], [address] IG% 0.300 Normal 0.0-0.9 [facility] Comment on above: Result Comment: IG% - Immature Granulocytes (promyelocytes, myelocytes and metamyelocytes) > 1% indicates that a LEFT SHIFT is Present. Performed By: #### L 100.0100, L500.2500 #### [facility] [address] [place], [address] Lymphocytes/100 WBC (Bld) 16.9 % Low 19-41 [facility] Comment on above: Performed By: #### L 100.0100, L500.2500 #### [facility] [address] [place], [address] MCH (RBC) [Entitic mass] 31.7 pg Normal 27.0-32.0 [facility] Comment on above: Performed By: #### L 100.0100, L500.2500 #### [facility] [address] [place], [address] MCHC (RBC) [Mass/Vol] 33.0 g/dL Normal 32-36 [facility] Comment on above: Performed By: #### L 100.0100, L500.2500 #### [facility] [address] [place], [address] MCV (RBC) [Entitic vol] 96.0 fL High 80-94 [facility] Comment on above: Performed By: #### L 100.0100, L500.2500 #### [facility] [address] [place], [address] Monocytes/100 WBC (Bld) 13.0 % High 0-10 [facility] Comment on above: Performed By: #### L 100.0100, L500.2500 #### [facility] [address] [place], [address] Neutrophils/100 WBC (Bld) 62.9 % Normal 47-70 [facility] Comment on above: Performed By: #### L 100.0100, L500.2500 #### [facility] [address] [place], [address] Nucleated RBC (Bld) [#/Vol] 0 10*3/uL Normal 0-5 [facility] Comment on above: Performed By: #### L 100.0100, L500.2500 #### [facility] [address] [place], [address] Platelet mean volume (Bld) [Entitic vol] 8.4 fL Normal 6.2-12.0 [facility] Comment on above: Performed By: #### L 100.0100, L500.2500 #### [facility] [address] [place], [address] Platelets (Bld) [#/Vol] 192 10*3/uL Normal 150-450 [facility] Comment on above: Performed By: #### L 100.0100, L500.2500 #### [facility] [address] [place], [address] RBC (Bld) [#/Vol] 3.50 10*6/uL Low 4.6-6.2 [facility] Comment on above: Performed By: #### L 100.0100, L500.2500 #### [facility] [address] [place], [address] RDW SD 47.9 fl High 35.1-43.9 [facility] Comment on above: Performed By: #### L 100.0100, L500.2500 #### [facility] [address] [place], [address] WBC (Bld) [#/Vol] 6.4 10*3/uL Normal 4.4-11.0 [facility] Comment on above: Performed By: #### L 100.0100, L500.2500 #### [facility] [address] [place], [address] Vitamin D,25 Hydroxyon 07-28 -2025 Vitamin D 25-OH 72.5 ng/mL Normal 30-100 [facility] Comment on above: Result Comment: Cynthia min D Status Deficiency: <20 ng/mL (50nmol/L) Insufficiency: 20-30 ng/mL (50-75 nmol/L) Sufficiency: 30-100 ng/mL (75-250 nmol/L) Toxicity: >100 ng/mL (>250 nmol/L) Performed By: #### L 506.1001 ####[facility] [address] [place], [address] Absolute lymphocyte countOrd ered By: Katarina Fabian on 03-27-2025 Lymphocytes Auto (Unsp spec) [#/Vol] 1.03 10*3/uL 0.83-4.51 [facility] Absolute neutrophil countOrd ered By: Katarinatrino Fabian on 03-27-2025 Neutrophils (Bld) [#/Vol] 5.7 10*3/uL 2.0-7.7 [facility] Anion gap in Serum or Plasma Ordered By: Katarina Fabian on 03-27-2025 Anion gap [Moles/Vol] 8 mmol/L 5-15 [facility] Automated lymphocyte count a s percentage of total leukocytesOrdered By: Katarina Fabian on 03-27-2025 Lymphocytes/100 WBC Auto (Unsp spec) 12.6 % Low 19-41 [facility] BUN/creatinine ratioOrdered By: Katarina Fabian on 03-27-2025 Urea nitrogen/Creatinine [Mass ratio] 26.9 mg/mg High 10-20 [facility] Basic Metabolic Profile (BMP )on 03-27-2025 BUN/CRE 26.9 RATIO High - [facility] Comment on above: Performed By: #### L 100.0100, L500.2500 #### [facility] [address] [place], [address] Calcium [Mass/Vol] 8.5 mg/dL Normal 7.6-11.0 [facility] Comment on above: Performed By: #### L 100.0100, L500.2500 #### [facility] [address] [place], [address] Chloride [Moles/Vol] 104 mmol/L Normal 98-108 [facility] Comment on above: Performed By: #### L 100.0100, L500.2500 #### [facility] [address] [place], [address] CO2 [Moles/Vol] 32.2 mmol/L High 21.0-32.0 [facility] Comment on above: Performed By: #### L 100.0100, L500.2500 #### [facility] [address] [place], [address] Creatinine [Mass/Vol] 0.67 mg/dL Low 0.70-1.20 [facility] Comment on above: Performed By: #### L 100.0100, L500.2500 #### [facility] [address] [place], [address] ECRCL 70.00 ml/min Normal 50-250 [facility] Comment on above: Performed By: #### L 100.0100, L500.2500 #### [facility] [address] [place], [address] GAP 8 Normal 5-15 [facility] Comment on above: Performed By: #### L 100.0100, L500.2500 #### [facility] [address] [place], [address] GFR/1.73 sq M.predicted among non-blacks MDRD (S/P/Bld) [Vol rate/Area] 95 mL/min/{1.73_m2} Normal >60 [facility] Comment on above: Result Comment: mL/m in/1.73m2 CKD-EPI Creatinine Equation (2020) Performed By: #### L 100.0100, L500.2500 #### [facility] [address] [place], [address] Glucose [Mass/Vol] 95 mg/dL Normal 70-99 [facility] Comment on above: Performed By: #### L 100.0100, L500.2500 #### [facility] [address] [place], [address] Potassium [Moles/Vol] 3.0 mmol/L Low 3.3-5.1 [facility] Comment on above: Performed By: #### L 100.0100, L500.2500 #### [facility] [address] [place], [address] Sodium [Moles/Vol] 145 mmol/L Normal 133-145 [facility] Comment on above: Performed By: #### L 100.0100, L500.2500 #### [facility] [address] [place], [address] Urea nitrogen [Mass/Vol] 18 mg/dL Normal 4-19 [facility] Comment on above: Performed By: #### L 100.0100, L500.2500 #### [facility] [address] [place], [address] Basophil percentageOrdered B y: Katarina Fabian on 03-27-2025 Basophils/100 WBC (Bld) 0.4 % 0-1 [facility] CBC W/Diff, Automatedon 2 Absolute Lymph 1.03 X10 3/uL Normal 0.83-4.51 [facility] Comment on above: Performed By: #### L 100.0100, L500.2500 #### [facility] [address] [place], [address] Absolute Neut 5.7 X10 3/uL Normal 2.0-7.7 [facility] Comment on above: Performed By: #### L 100.0100, L500.2500 #### [facility] [address] [place], [address] Basophils/100 WBC (Bld) 0.4 % Normal 0-1 [facility] Comment on above: Performed By: #### L 100.0100, L500.2500 #### [facility] [address] [place], [address] Eosinophils/100 WBC (Bld) 5.7 % High 0-5 [facility] Comment on above: Performed By: #### L 100.0100, L500.2500 #### [facility] [address] [place], [address] Erythrocyte distribution width (RBC) [Ratio] 13.4 % Normal 11.6-14.6 [facility] Comment on above: Performed By: #### L 100.0100, L500.2500 #### [facility] [address] [place], [address] Hematocrit (Bld) [Volume fraction] 33.8 % Low 40-54 [facility] Comment on above: Performed By: #### L 100.0100, L500.2500 #### [facility] [address] [place], [address] Hemoglobin (Bld) [Mass/Vol] 11.5 g/dL Low 13.0-16.5 [facility] Comment on above: Performed By: #### L 100.0100, L500.2500 #### [facility] [address] [place], [address] IG% 0.500 Normal 0.0-0.9 [facility] Comment on above: Result Comment: IG% - Immature Granulocytes (promyelocytes, myelocytes and metamyelocytes) > 1% indicates that a LEFT SHIFT is Present. Performed By: #### L 100.0100, L500.2500 #### [facility] [address] [place], [address] Lymphocytes/100 WBC (Bld) 12.6 % Low 19-41 [facility] Comment on above: Performed By: #### L 100.0100, L500.2500 #### [facility] [address] [place], [address] MCH (RBC) [Entitic mass] 32.1 pg High 27.0-32.0 [facility] Comment on above: Performed By: #### L 100.0100, L500.2500 #### [facility] [address] [place], [address] MCHC (RBC) [Mass/Vol] 34.0 g/dL Normal 32-36 [facility] Comment on above: Performed By: #### L 100.0100, L500.2500 #### [facility] [address] [place], [address] MCV (RBC) [Entitic vol] 94.4 fL High 80-94 [facility] Comment on above: Performed By: #### L 100.0100, L500.2500 #### [facility] [address] [place], [address] Monocytes/100 WBC (Bld) 11.8 % High 0-10 [facility] Comment on above: Performed By: #### L 100.0100, L500.2500 #### [facility] [address] [place], [address] Neutrophils/100 WBC (Bld) 69.0 % Normal 47-70 [facility] Comment on above: Performed By: #### L 100.0100, L500.2500 #### [facility] [address] [place], [address] Nucleated RBC (Bld) [#/Vol] 0 10*3/uL Normal 0-5 [facility] Comment on above: Performed By: #### L 100.0100, L500.2500 #### [facility] [address] [place], [address] Platelet mean volume (Bld) [Entitic vol] 9.1 fL Normal 6.2-12.0 [facility] Comment on above: Performed By: #### L 100.0100, L500.2500 #### [facility] [address] [place], [address] Platelets (Bld) [#/Vol] 211 10*3/uL Normal 150-450 [facility] Comment on above: Performed By: #### L 100.0100, L500.2500 #### [facility] [address] [place], [address] RBC (Bld) [#/Vol] 3.58 10*6/uL Low 4.6-6.2 [facility] Comment on above: Performed By: #### L 100.0100, L500.2500 #### [facility] [address] [place], [address] RDW SD 45.9 fl High 35.1-43.9 [facility] Comment on above: Performed By: #### L 100.0100, L500.2500 #### [facility] [address] [place], [address] WBC (Bld) [#/Vol] 8.2 10*3/uL Normal 4.4-11.0 [facility] Comment on above: Performed By: #### L 100.0100, L500.2500 #### [facility] [address] [place], [address] Carbon dioxide, total [Moles /volume] in Central venous bloodOrdered By: Katarina Fabian on 03-27-2025 CO2 [Moles/Vol] 32.2 mmol/L High 21.0-32.0 [facility] Chloride assayOrdered By: Ritchie Fabian on 03-27-2025 Chloride [Moles/Vol] 104 mmol/L 98-108 [facility] Eosinophil percentageOrdered By: Katarina Fabian on 03-27-2025 Eosinophils/100 WBC (Bld) 5.7 % High 0-5 [facility] Erythrocyte distribution wid th ratioOrdered By: Katarina Fabian on 03-27-2025 Erythrocyte distribution width (RBC) [Ratio] 13.4 % 11.6-14.6 [facility] Erythrocyte distribution wid th standard deviationOrdered By: Katarinatrino Fabian 03-27-2025 Erythrocyte distribution width (RBC) [Ratio] 45.9 fl High 35.1-43.9 [facility] Glomerular filtration rate ( GFR) estimation/1.73 sq m using serum, plasma, or whole bOrdered By: Katarinatrino Fabian on 03-27-2025 GFR/1.73 sq M.predicted among non-blacks MDRD (S/P/Bld) [Vol rate/Area] 95 mL/min/{1.73_m2} >60 [facility] Comment on above: mL/min/1.73m2 CKD-EP I Creatinine Equation (2020) Hematocrit Auto (Bld) [Volum e fraction][facility]: [facility] 03-27-2025 Hematocrit (Bld) [Volume fraction] 33.8 % Low 40-54 [facility] Hemoglobin measurementOrdere d By: [facility] 03-27-2025 Hemoglobin (Bld) [Mass/Vol] 11.5 g/dL Low 13.0-16.5 [facility] Immature granulocytes/100 WB C Auto (Bld)Ordered By: Katarinatrino Fabian 03-27-2025 Immature granulocytes/100 WBC (Bld) 0.500 % 0.0-0.9 [facility] Comment on above: IG% - Immature Granu locytes (promyelocytes, myelocytes and metamyelocytes) > 1% indicates that a LEFT SHIFT is Present. MCV (mean corpuscular volume ) determinationOrdered By: Katarina [facility] MCV (RBC) [Entitic vol] 94.4 fL High 80-94 [facility] Mean corpuscular hemoglobin (MCH) determinationOrdered By: Katarina [facility] 03-27-2025 MCH (RBC) [Entitic mass] 32.1 pg High 27.0-32.0 [facility] Mean corpuscular hemoglobin concentration (MCHC) determinationOrdered By: Katarina Fabian on 03-27-2025 MCHC (RBC) [Mass/Vol] 34.0 g/dL 32-36 [facility] Mean platelet volume determi nationOrdered By: Katarina Fabian on 03-27-2025 Platelet mean volume (Bld) [Entitic vol] 9.1 fL 6.2-12.0 [facility] Monocyte percentageOrdered B y: Katarina Fabian on 03-27-2025 Monocytes/100 WBC (Bld) 11.8 % High 0-10 [facility] Neutrophil percentageOrdered By: Katarina Fabian on 03-27-2025 Neutrophils/100 WBC (Bld) 69.0 % 47-70 [facility] Nucleated red blood cell per centageOrdered By: Katarina Fabian on 03-27-2025 Nucleated RBC/100 WBC (Bld) [Ratio] 0 % 0-5 [facility] Platelet countOrdered By: Na ritchie Fabian on 03-27-2025 Platelets (Bld) [#/Vol] 211 10*3/uL 150-450 [facility] Potassium measurement (mass/ volume)Ordered By: Katarina Fabian on 03-27-2025 Potassium (Unsp spec) [Mass/Vol] 3.0 mmol/L Low 3.3-5.1 [facility] RBC Auto (Bld) [#/Vol]Ordere d By: Katarina Fabian on 03-27-2025 RBC (Bld) [#/Vol] 3.58 10*6/uL Low 4.6-6.2 [facility] Serum creatinine measurement (mass/volume)Ordered By: Katarina Fabian on 03-27-2025 Creatinine [Mass/Vol] 0.67 mg/dL Low 0.70-1.20 [facility] Serum glucose measurement (m ass/volume)Ordered By: Katarina Fabian on 03-27-2025 Glucose [Mass/Vol] 95 mg/dL 70-99 [facility] Serum or plasma calcium jovita urement (mass/volume)Ordered By: Katarina Fabian on 03-27-2025 Calcium [Mass/Vol] 8.5 mg/dL 7.6-11.0 [facility] Serum or plasma urea nitroge n measurement (mass/volume)Ordered By: Katarina Fabian on 03-27-2025 Urea nitrogen [Mass/Vol] 18 mg/dL 4-19 [facility] Sodium levelOrdered By: Katarina Fabian on 03-27-2025 Sodium [Moles/Vol] 145 mmol/L 133-145 [facility] White blood cell (WBC) count Ordered By: Katarina Fabian on 03-27-2025 WBC (Bld) [#/Vol] 8.2 10*3/uL 4.4-11.0 [facility] Basic Metabolic Profile (BMP )on 03-26-2025 BUN/CRE 21.8 RATIO High 10-20 [facility] Comment on above: Performed By: #### L 100.0100, L500.2500 #### [facility] [address] [place], [address] Calcium [Mass/Vol] 8.5 mg/dL Normal 7.6-11.0 [facility] Comment on above: Performed By: #### L 100.0100, L500.2500 #### [facility] [address] [place], [address] Chloride [Moles/Vol] 103 mmol/L Normal 98-108 [facility] Comment on above: Performed By: #### L 100.0100, L500.2500 #### [facility] [address] [place], [address] CO2 [Moles/Vol] 32.6 mmol/L High 21.0-32.0 [facility] Comment on above: Result Comment: QC O K Performed By: #### L 100.0100, L500.2500 #### [facility] [address] [place], [address] Creatinine [Mass/Vol] 0.79 mg/dL Normal 0.70-1.20 [facility] Comment on above: Performed By: #### L 100.0100, L500.2500 #### [facility] [address] [place], [address] ECRCL 70.00 ml/min Normal 50-250 [facility] Comment on above: Performed By: #### L 100.0100, L500.2500 #### [facility] [address] [place], [address] GAP 8 Normal 5-15 [facility] Comment on above: Performed By: #### L 100.0100, L500.2500 #### [facility] [address] [place], [address] GFR/1.73 sq M.predicted among non-blacks MDRD (S/P/Bld) [Vol rate/Area] 91 mL/min/{1.73_m2} Normal >60 [facility] Comment on above: Result Comment: mL/m in/1.73m2 CKD-EPI Creatinine Equation (2020) Performed By: #### L 100.0100, L500.2500 #### [facility] [address] [place], [address] Glucose [Mass/Vol] 96 mg/dL Normal 70-99 [facility] Comment on above: Performed By: #### L 100.0100, L500.2500 #### [facility] [address] [place], [address] Potassium [Moles/Vol] 3.3 mmol/L Normal 3.3-5.1 [facility] Comment on above: Performed By: #### L 100.0100, L500.2500 #### [facility] [address] [place], [address] Sodium [Moles/Vol] 144 mmol/L Normal 133-145 [facility] Comment on above: Performed By: #### L 100.0100, L500.2500 #### [facility] [address] [place], [address] Urea nitrogen [Mass/Vol] 17 mg/dL Normal 4-19 [facility] Comment on above: Performed By: #### L 100.0100, L500.2500 #### [facility] [address] [place], [address] CBC W/Diff, Automatedon 07-2 -2024 Absolute Lymph 1.01 X10 3/uL Normal 0.83-4.51 [facility] Comment on above: Performed By: #### L 100.0100, L500.2500 #### [facility] [address] [place], [address] Absolute Neut 4.6 X10 3/uL Normal 2.0-7.7 [facility] Comment on above: Performed By: #### L 100.0100, L500.2500 #### [facility] [address] [place], [address] Basophils/100 WBC (Bld) 0.4 % Normal 0-1 [facility] Comment on above: Performed By: #### L 100.0100, L500.2500 #### [facility] [address] [place], [address] Eosinophils/100 WBC (Bld) 7.5 % High 0-5 [facility] Comment on above: Performed By: #### L 100.0100, L500.2500 #### [facility] [address] [place], [address] Erythrocyte distribution width (RBC) [Ratio] 13.2 % Normal 11.6-14.6 [facility] Comment on above: Performed By: #### L 100.0100, L500.2500 #### [facility] [address] [place], [address] Hematocrit (Bld) [Volume fraction] 34.4 % Low 40-54 [facility] Comment on above: Performed By: #### L 100.0100, L500.2500 #### [facility] [address] [place], [address] Hemoglobin (Bld) [Mass/Vol] 11.6 g/dL Low 13.0-16.5 [facility] Comment on above: Performed By: #### L 100.0100, L500.2500 #### [facility] [address] [place], [address] IG% 0.400 Normal 0.0-0.9 [facility] Comment on above: Result Comment: IG% - Immature Granulocytes (promyelocytes, myelocytes and metamyelocytes) > 1% indicates that a LEFT SHIFT is Present. Performed By: #### L 100.0100, L500.2500 #### [facility] [address] [place], [address] Lymphocytes/100 WBC (Bld) 14.1 % Low 19-41 [facility] Comment on above: Performed By: #### L 100.0100, L500.2500 #### [facility] [address] [place], [address] MCH (RBC) [Entitic mass] 32.1 pg High 27.0-32.0 [facility] Comment on above: Performed By: #### L 100.0100, L500.2500 #### [facility] [address] [place], [address] MCHC (RBC) [Mass/Vol] 33.7 g/dL Normal 32-36 [facility] Comment on above: Performed By: #### L 100.0100, L500.2500 #### [facility] [address] [place], [address] MCV (RBC) [Entitic vol] 95.3 fL High 80-94 [facility] Comment on above: Performed By: #### L 100.0100, L500.2500 #### [facility] [address] [place], [address] Monocytes/100 WBC (Bld) 13.0 % High 0-10 [facility] Comment on above: Performed By: #### L 100.0100, L500.2500 #### [facility] [address] [place], [address] Neutrophils/100 WBC (Bld) 64.6 % Normal 47-70 [facility] Comment on above: Performed By: #### L 100.0100, L500.2500 #### [facility] [address] [place], [address] Nucleated RBC (Bld) [#/Vol] 0.3 10*3/uL Normal 0-5 [facility] Comment on above: Performed By: #### L 100.0100, L500.2500 #### [facility] [address] [place], [address] Platelet mean volume (Bld) [Entitic vol] 9.1 fL Normal 6.2-12.0 [facility] Comment on above: Performed By: #### L 100.0100, L500.2500 #### [facility] [address] [place], [address] Platelets (Bld) [#/Vol] 210 10*3/uL Normal 150-450 [facility] Comment on above: Performed By: #### L 100.0100, L500.2500 #### [facility] [address] [place], [address] RBC (Bld) [#/Vol] 3.61 10*6/uL Low 4.6-6.2 [facility] Comment on above: Performed By: #### L 100.0100, L500.2500 #### [facility] [address] [place], [address] RDW SD 46.3 fl High 35.1-43.9 [facility] Comment on above: Performed By: #### L 100.0100, L500.2500 #### [facility] [address] [place], [address] WBC (Bld) [#/Vol] 7.2 10*3/uL Normal 4.4-11.0 [facility] Comment on above: Performed By: #### L 100.0100, L500.2500 #### [facility] [address] [place], [address] Chest 1 View (Portable)on Chest 1 View (Portable) [facility] Imaging Services [address] [place] [address] Chest 1 View (Portable) MR#: [id number] Acct: [id number] Name: NANCY SY Rep #: [id number] : 1945 M 80 From: Izaiah Baptiste MD PCP: Katherine Brand, MANAGER PRIVACY-C Status: ADM IN Study: Chest 1 View (Portable) Date of Exam: 03/26/25 Exam# [id number] Ordering Dr: Katarina Fabian MD EXAM: XR Chest, 1 View CLINICAL INDICATION: 2 L NC REQUIREMENT TECHNIQUE: Frontal view of the chest. COMPARISON: No relevant prior studies available. FINDINGS: LUNGS AND PLEURAL SPACES: See below. HEART: Cardiomegaly with mild congestion. MEDIASTINUM: Unremarkable. Normal mediastinal contour. BONES/JOINTS: Unremarkable. No acute fracture. RAD/Chest 1 View (Portable) IMPRESSION: Cardiomegaly with mild congestion. Reading Location: [id number] CC: MANAGER PRIVACY-C Katherine Brand; Dr. Katarina Fabian MD Vp Training: Signed Normal [facility] Basic Metabolic Profile (BMP )on 03-25-2025 BUN/CRE 22.6 RATIO High 10-20 [facility] Comment on above: Performed By: #### L 100.0100, L500.2500 ####[facility] [address] [place], [address] Calcium [Mass/Vol] 8.1 mg/dL Normal 7.6-11.0 [facility] Comment on above: Performed By: #### L 100.0100, L500.2500 ####[facility] [address] [place], [address] Chloride [Moles/Vol] 104 mmol/L Normal 98-108 [facility] Comment on above: Performed By: #### L 100.0100, L500.2500 ####[facility] [address] [place], [address] CO2 [Moles/Vol] 30.4 mmol/L Normal 21.0-32.0 [facility] Comment on above: Performed By: #### L 100.0100, L500.2500 ####[facility] [address] [place], [address] Creatinine [Mass/Vol] 0.75 mg/dL Normal 0.70-1.20 [facility] Comment on above: Performed By: #### L 100.0100, L500.2500 ####[facility] [address] [place], [address] ECRCL 70.00 ml/min Normal 50-250 [facility] Comment on above: Performed By: #### L 100.0100, L500.2500 ####[facility] [address] [place], [address] GAP 10 Normal 5-15 [facility] Comment on above: Performed By: #### L 100.0100, L500.2500 ####[facility] [address] [place], [address] GFR/1.73 sq M.predicted among non-blacks MDRD (S/P/Bld) [Vol rate/Area] 92 mL/min/{1.73_m2} Normal >60 [facility] Comment on above: Result Comment: mL/m in/1.73m2 CKD-EPI Creatinine Equation (2020) Performed By: #### L 100.0100, L500.2500 ####[facility] [address] [place], [address] Glucose [Mass/Vol] 94 mg/dL Normal 70-99 [facility] Comment on above: Performed By: #### L 100.0100, L500.2500 ####[facility] [address] [place], [address] Potassium [Moles/Vol] 3.1 mmol/L Low 3.3-5.1 [facility] Comment on above: Performed By: #### L 100.0100, L500.2500 ####[facility] [address] [place], [address] Sodium [Moles/Vol] 145 mmol/L Normal 133-145 [facility] Comment on above: Performed By: #### L 100.0100, L500.2500 ####[facility] [address] [place], [address] Urea nitrogen [Mass/Vol] 17 mg/dL Normal 4-19 [facility] Comment on above: Performed By: #### L 100.0100, L500.2500 ####[facility] [address] [place], [address] CBC W/Diff, Automatedon 07-2 -2024 Absolute Lymph 1.31 X10 3/uL Normal 0.83-4.51 [facility] Comment on above: Performed By: #### L 100.0100, L500.2500 ####[facility] [address] [place], [address] Absolute Neut 4.4 X10 3/uL Normal 2.0-7.7 [facility] Comment on above: Performed By: #### L 100.0100, L500.2500 ####[facility] [address] [place], [address] Basophils/100 WBC (Bld) 0.4 % Normal 0-1 [facility] Comment on above: Performed By: #### L 100.0100, L500.2500 ####[facility] [address] [place], [address] Eosinophils/100 WBC (Bld) 6.6 % High 0-5 [facility] Comment on above: Performed By: #### L 100.0100, L500.2500 ####[facility] [address] [place], [address] Erythrocyte distribution width (RBC) [Ratio] 13.4 % Normal 11.6-14.6 [facility] Comment on above: Performed By: #### L 100.0100, L500.2500 ####[facility] [address] [place], [address] Hematocrit (Bld) [Volume fraction] 34.4 % Low 40-54 [facility] Comment on above: Performed By: #### L 100.0100, L500.2500 ####[facility] [address] [place], [address] Hemoglobin (Bld) [Mass/Vol] 11.5 g/dL Low 13.0-16.5 [facility] Comment on above: Performed By: #### L 100.0100, L500.2500 ####[facility] [address] [place], [address] IG% 0.300 Normal 0.0-0.9 [facility] Comment on above: Result Comment: IG% - Immature Granulocytes (promyelocytes, myelocytes and metamyelocytes) > 1% indicates that a LEFT SHIFT is Present. Performed By: #### L 100.0100, L500.2500 ####[facility] [address] [place], [address] Lymphocytes/100 WBC (Bld) 18.3 % Low 19-41 [facility] Comment on above: Performed By: #### L 100.0100, L500.2500 ####[facility] [address] [place], [address] MCH (RBC) [Entitic mass] 31.9 pg Normal 27.0-32.0 [facility] Comment on above: Performed By: #### L 100.0100, L500.2500 ####[facility] [address] [place], [address] MCHC (RBC) [Mass/Vol] 33.4 g/dL Normal 32-36 [facility] Comment on above: Performed By: #### L 100.0100, L500.2500 ####[facility] [address] [place], [address] MCV (RBC) [Entitic vol] 95.3 fL High 80-94 [facility] Comment on above: Performed By: #### L 100.0100, L500.2500 ####[facility] [address] [place], [address] Monocytes/100 WBC (Bld) 13.5 % High 0-10 [facility] Comment on above: Performed By: #### L 100.0100, L500.2500 ####[facility] [address] [place], [address] Neutrophils/100 WBC (Bld) 60.9 % Normal 47-70 [facility] Comment on above: Performed By: #### L 100.0100, L500.2500 ####[facility] [address] [place], [address] Nucleated RBC (Bld) [#/Vol] 0 10*3/uL Normal 0-5 [facility] Comment on above: Performed By: #### L 100.0100, L500.2500 ####[facility] [address] [place], [address] Platelet mean volume (Bld) [Entitic vol] 9.2 fL Normal 6.2-12.0 [facility] Comment on above: Performed By: #### L 100.0100, L500.2500 ####[facility] [address] [place], [address] Platelets (Bld) [#/Vol] 208 10*3/uL Normal 150-450 [facility] Comment on above: Performed By: #### L 100.0100, L500.2500 ####[facility] [address] [place], [address] RBC (Bld) [#/Vol] 3.61 10*6/uL Low 4.6-6.2 [facility] Comment on above: Performed By: #### L 100.0100, L500.2500 ####[facility] [address] [place], [address] RDW SD 47.3 fl High 35.1-43.9 [facility] Comment on above: Performed By: #### L 100.0100, L500.2500 ####[facility] [address] [place], [address] WBC (Bld) [#/Vol] 7.2 10*3/uL Normal 4.4-11.0 [facility] Comment on above: Performed By: #### L 100.0100, L500.2500 ####[facility] [address] [place], [address] Consultation - Orthopedicson 03-25-2025 Consultation - Orthopedics [facility] Medical Records Department [address] [place] [address] Consultation - Orthopedics 03/25/25 1307 MR#: [id number] Acct: [id number] Name: NANCY SY Rep #: [id number] : 1945 80 From: Zandra Freire MD PCP: LOIS Resendiz Status:ADM IN Location: [place] [id number] HPI Consult Data Date of Consult: 03/25/25 [...] trending, OA, Allergic rhinitis, Former tobacco use [facility] Medical History CKD (chronic kidney disease), stage [...] Delivery Metho (more content not included)... Normal [facility] Electrocardiogram reportOrde red By: Shady Loving on 03-25-2025 EKG study [facility] Cardiovascular Services [address] [place] [address] 12 Lead EKG 03/23/25 1734 MR#: [id number] Acct: [id number] Name: NACNY SY Rep #:[id number] : 1945 80 From: Shady wang MD Attending Dr: Dr. Katarina Fabian MD Status: ADM IN Ordering Dr: Marco Camacho DO Date: 03/23/25 Location: U Sex: M C Admitted: 03/23/25 Test Reason [...] normal ECG Confirmed by INDER GOODSON, FRANNY ([id number]), digital editor BEVERLEY ZAPATA ([id number]) on 03/25/2025 1:10:30 PM Referred By: Confirmed By: FRANNY LOVING MD 03/25/25 1310 Date _ Shady Loving MD CC: LOIS Brand; Dr. Katarina Fabian MD; Dr. Marco Camacho DO ~ Signed [facility] Work Phone: Magnetic resonance imaging r eportOrdered By: Abraham Marlow on 03-25-2025 Study report [facility] Imaging Services [address] [place] [address] Spine Thoracic (Routine) MR#: [id number] Acct: [id number] Name: NANCY SY Rep #: [id number] : 1945 M 80 From: Eloise Marlow MD PCP: Katherine Brand, MANAGER PRIVACY-C Status: ADM I N Study:Spine Thoracic (Routine) Date of Exam: 03/24/25 Exam# [id number] Ordering Dr: Kimberlee Pham MD PROCEDURE: SPINE [...] the anterior thecal sac from the fracture [id number] body in the retropulsed portion of the [...] Correlate with radiculopathy at T9. Reading Location: [id number] CC: LOIS Brand; Dr. Merry Pham MD ~ Vp Training: Signed [facility] Study report [facility] Imaging Services [address] [place], [place] [address] Spine Lumbar (Routine) MR#: [id number] Acct: [id number] Name: NANCY SY Rep #: [id number] : 1945 M 80 From: Eloise Marlow MD PCP: LOIS Resendiz Status: ADM I N Study:Spine Lumbar (Routine) Date of Exam: 03/24/25 Exam# [id number] Ordering Dr: Kimberlee Pham MD PROCEDURE: SPINE [...] the right. L2-3: Mild, diffuse disc bulge. Yvjr-gd-mfkwnnmi thickening of ligamentum flavum. Minimal facet hypertrophy. No central stenosis or exit foraminal narrowing. L3-4: Mild, diffuse disc bulge. Moderate thickening of ligamentum flavum. Minimal bilateral facet hypertrophy. Borderline narrowing of the exit foramina. Correlate with L3 radiculopathy. L4-5: Moderate, diffuse disc bulge. Severe thickening of ligamentum flavum. Lrsw-hr-ttuorqrb facet hypertrophy. Central stenosis to 9 mm AP. Nnwbu-cuvtebt-gurn-l eft severe exit foraminal narrowing. Correlate with [...] L4/5 and L5/S1 as above. Reading Location: [id number] CC: LOIS Brand; Dr. Merry Pham MD ~ Vp Training: Signed [facility] Bilirubin, totalOrdered By: Merry Pham on 03-24-2025 Bilirubin [Mass/Vol] 0.36 mg/dL 0.00-1.30 [facility] CBC W/Diff, Automatedon 03-02 Absolute Lymph 1.38 X10 3/uL Normal 0.83-4.51 [facility] Comment on above: Performed By: #### L 499.0042 #### [facility] [address] [place], [address] Absolute Neut 4.4 X10 3/uL Normal 2.0-7.7 [facility] Comment on above: Performed By: #### L 499.0042 #### [facility] [address] [place], [address] Basophils/100 WBC (Bld) 0.4 % Normal 0-1 [facility] Comment on above: Performed By: #### L 499.0042 #### [facility] [address] [place], [address] Eosinophils/100 WBC (Bld) 5.0 % Normal 0-5 [facility] Comment on above: Performed By: #### L 499.0042 #### [facility] [address] [place], [address] Erythrocyte distribution width (RBC) [Ratio] 13.6 % Normal 11.6-14.6 [facility] Comment on above: Performed By: #### L 499.0042 #### [facility] [address] [place], [place], [address] Hematocrit (Bld) [Volume fraction] 34.2 % Low 40-54 [facility] Comment on above: Performed By: #### L 499.0042 #### [facility] [address] [place], [address] Hemoglobin (Bld) [Mass/Vol] 11.6 g/dL Low 13.0-16.5 [facility] Comment on above: Performed By: #### L 499.0042 #### [facility] [address] [place], [address] IG% 0.400 Normal 0.0-0.9 [facility] Comment on above: Result Comment: IG% - Immature Granulocytes (promyelocytes, myelocytes and metamyelocytes) > 1% indicates that a LEFT SHIFT is Present. Performed By: #### L 499.0042 #### [facility] [address] [place], [address] Lymphocytes/100 WBC (Bld) 19.2 % Normal 19-41 [facility] Comment on above: Performed By: #### L 499.0042 #### [facility] [address] [place], [address] MCH (RBC) [Entitic mass] 32.0 pg Normal 27.0-32.0 [facility] Comment on above: Performed By: #### L 499.0042 #### [facility] [address] [place], [address] MCHC (RBC) [Mass/Vol] 33.9 g/dL Normal 32-36 [facility] Comment on above: Performed By: #### L 499.0042 #### [facility] [address] [place], [address] MCV (RBC) [Entitic vol] 94.5 fL High 80-94 [facility] Comment on above: Performed By: #### L 499.0042 #### [facility] [address] [place], [address] Monocytes/100 WBC (Bld) 13.4 % High 0-10 [facility] Comment on above: Performed By: #### L 499.0042 #### [facility] [address] [place], [address] Neutrophils/100 WBC (Bld) 61.6 % Normal 47-70 [facility] Comment on above: Performed By: #### L 499.0042 #### [facility] [address] [place], [address] Nucleated RBC (Bld) [#/Vol] 0 10*3/uL Normal 0-5 [facility] Comment on above: Performed By: #### L 499.0042 #### [facility] [address] [place], [address] Platelet mean volume (Bld) [Entitic vol] 9.0 fL Normal 6.2-12.0 [facility] Comment on above: Performed By: #### L 499.0042 #### [facility] [address] [place], [address] Platelets (Bld) [#/Vol] 219 10*3/uL Normal 150-450 [facility] Comment on above: Performed By: #### L 499.0042 #### [facility] [address] [place], [address] RBC (Bld) [#/Vol] 3.62 10*6/uL Low 4.6-6.2 [facility] Comment on above: Performed By: #### L 499.0042 #### [facility] [address] [place], [address] RDW SD 47.5 fl High 35.1-43.9 [facility] Comment on above: Performed By: #### L 499.0042 #### [facility] [address] [place], [address] WBC (Bld) [#/Vol] 7.2 10*3/uL Normal 4.4-11.0 [facility] Comment on above: Performed By: #### L 499.0042 #### [facility] [address] [place], [address] Calculated very low density lipoprotein (VLDL) cholesterol measurementOrdered By: Merry Vero on 03-24-2025 Calculated very low density lipoprotein (VLDL) cholesterol measurement 9 mg/dL 5-40 [facility] Comprehensive Metabolic Prof ilon 03-24-2025 Albumin [Mass/Vol] 3.3 g/dL Low 3.4-4.8 [facility] Comment on above: Performed By: #### L 499.0042 #### [facility] [address] [place], [address] Albumin/Globulin [Mass ratio] 1.5 {ratio} Normal 0.9-2.4 [facility] Comment on above: Performed By: #### L 499.0042 #### [facility] [address] [place], [address] ALK PHOS 102 U/L Normal 40-129 [facility] Comment on above: Performed By: #### L 499.0042 #### [facility] [address] [place], [address] ALT [Catalytic activity/Vol] 7 U/L Normal <=46 [facility] Comment on above: Performed By: #### L 499.0042 #### [facility] [address] [place], [address] AST [Catalytic activity/Vol] 14 U/L Normal <=37 [facility] Comment on above: Performed By: #### L 499.0042 #### [facility] [address] [place], [address] Bilirubin [Mass/Vol] 0.36 mg/dL Normal 0.00-1.30 [facility] Comment on above: Performed By: #### L 499.0042 #### [facility] [address] [place], [address] BUN/CRE 18.8 RATIO Normal 10-20 [facility] Comment on above: Performed By: #### L 499.0042 #### [facility] [address] [place], [address] Calcium [Mass/Vol] 8.7 mg/dL Normal 7.6-11.0 [facility] Comment on above: Performed By: #### L 499.0042 #### [facility] [address] [place], [address] Chloride [Moles/Vol] 105 mmol/L Normal 98-108 [facility] Comment on above: Performed By: #### L 499.0042 #### [facility] [address] [place], [address] CO2 [Moles/Vol] 30.9 mmol/L Normal 21.0-32.0 [facility] Comment on above: Performed By: #### L 499.0042 #### [facility] [address] [place], [address] Creatinine [Mass/Vol] 0.85 mg/dL Normal 0.70-1.20 [facility] Comment on above: Performed By: #### L 499.0042 #### [facility] [address] [place], [address] ECRCL 65.88 ml/min Normal 50-250 [facility] Comment on above: Performed By: #### L 499.0042 #### [facility] [address] [place], [address] GAP 9 Normal 5-15 [facility] Comment on above: Performed By: #### L 499.0042 #### [facility] [address] [place], [address] GFR/1.73 sq M.predicted among non-blacks MDRD (S/P/Bld) [Vol rate/Area] 88 mL/min/{1.73_m2} Normal >60 [facility] Comment on above: Result Comment: mL/m in/1.73m2 CKD-EPI Creatinine Equation (2020) Performed By: #### L 499.0042 #### [facility] [address] [place], [address] Globulin (S) [Mass/Vol] 2.2 g/dL Normal 2.2-4.2 [facility] Comment on above: Performed By: #### L 499.0042 #### [facility] [address] [place], [address] Glucose [Mass/Vol] 96 mg/dL Normal 70-99 [facility] Comment on above: Performed By: #### L 499.0042 #### [facility] [address] [place], [address] Potassium [Moles/Vol] 3.7 mmol/L Normal 3.3-5.1 [facility] Comment on above: Performed By: #### L 499.0042 #### [facility] [address] [place], [address] Sodium [Moles/Vol] 145 mmol/L Normal 133-145 [facility] Comment on above: Performed By: #### L 499.0042 #### [facility] [address] [place], [address] T PROT 5.6 g/dL Low 5.9-8.4 [facility] Comment on above: Performed By: #### L 499.0042 #### [facility] [address] [place], [address] Urea nitrogen [Mass/Vol] 16 mg/dL Normal 4-19 [facility] Comment on above: Performed By: #### L 499.0042 #### [facility] [address] [place], [address] Echocardiogram study reportO rdered By: Shady Loving on 03-24-2025 Study report [facility] [address] [place] [address] Echo Complete 03/24/25 0814 MR#: [id number] Acct: [id number] Name: NANCY SY Rep #:[id number] : 1945 80 From: Shady lea MD Attending Dr: Dr. Katarina Fabian MD Status: ADM IN Ordering Dr: Merry Pham MD Date: 03/23/25 Location: [facility] Sex: M C Admitted: 03/23/25 Reason For [...] Physician: Merry Pham Performed By: Tommie Gurrola, RCS 03/24/25 1132 Date _ Shady Loving MD CC: MANAGER PRIVACYLeighann Brand; Dr. Merry Pham MD; Dr. Katarina Fabian MD ~ Date Dictated: 03/24/25 08 Date Transcribed: 03/24/251131 Vp Training: Signed [facility] Work Phone: Ferritinon 03-24-2025 Ferritin [Mass/Vol] 680 ng/mL High 37-417 [facility] Comment on above: Performed By: #### L 499.0042 #### [facility] [address] [place], [place], [address] Folate [Mass/volume] in Seru m or PlasmaOrdered By: Merry Pham on 03-24-2025 Folate [Mass/Vol] 8.06 ng/mL 4.60-34.80 [facility] Comment on above: Hemolysis, Results w ill be affected, Requires Recollection. Folates,Serum (Folic Acid)on 03-24-2025 FOLATES,SERUM 8.06 ng/mL Normal 4.60-34.80 [facility] Comment on above: Result Comment: Hemo lysis, Results will be affected, Requires Recollection. Performed By: #### L 100.0100, L500.2500 #### [facility] [address] [place], [place], [address] Iron measurement (mass/mass) Ordered By: Merry Pham on 03-24-2025 Iron (Unsp spec) [Mass/Mass] 49 ug/dL Low 65-175 [facility] Iron+Iron Binding Capacityon 03-24-2025 TIBC 168 ug/dL Low 250-450 [facility] Comment on above: Performed By: #### L 499.0042 #### [facility] [address] [place], [place], [address] LDL calc ser/plasOrdered By: Merry Pham on 03-24-2025 Cholesterol in LDL [Mass/Vol] 62 mg/dL [facility] Comment on above: Ltkjcdegsi=475-084 m g/dL & Higher Wilu=770 mg/dL or greater Laboratory - Chemistry and C hemistry - challengeOrdered By: Merry Pham on 03-24-2025 AST [Catalytic activity/Vol] 14 U/L <38 [facility] Lipid Profileon 03-24-2025 CHOL:HDL 3.02 Normal [facility] Comment on above: Performed By: #### L 499.0042 #### [facility] [address] [place], [place], [address] [phone] Cholesterol [Mass/Vol] 106 mg/dL Normal <=200 [facility] Comment on above: Result Comment: Chol esterol level, Desirable <200 mg/dL Borderline high cholesterol 200-239 mg/dL High cholesterol >=240 mg/dL Recommendations of the NCEP Adult Treatment Panel for the following risk-cutoff thresholds for the [place] population. Performed By: #### L 499.0042 #### [facility] [address] [place], [place], [address] Cholesterol in HDL [Mass/Vol] 35 mg/dL Low [facility] Comment on above: Result Comment: Zenia onal Cholesterol Education Program (NCEP) guidelines: <40 mg/dL: Low HDL-cholesterol (major risk factor for CHD) >= 60 mg/dL: High HDL-cholesterol (negative risk factor for CHD) HDL-cholesterol is affected by a number of factors, e.g. smoking, exercise, hormones, sex and age. Performed By: #### L 499.0042 #### [facility] [address] [place], [address] Cholesterol in LDL [Mass/Vol] 62 mg/dL Normal [facility] Comment on above: Result Comment: Bord omogqx=086-206 mg/dL Higher Bggn=276 mg/dL or greater Performed By: #### L 499.0042 #### [facility] [address] [place], [place], [address] Cholesterol in VLDL [Mass/Vol] 9 mg/dL Normal 5-40 [facility] Comment on above: Performed By: #### L 499.0042 #### [facility] [address] [place], [place], [address] Triglyceride [Mass/Vol] 45 mg/dL Normal [facility] Comment on above: Result Comment: The drugs N-Acetylcysteine and Metamizole may falsely depress this assay. Normal range: <150 mg/dL Borderline High: 150-199 mg/dL High: 200-499 mg/dL Very High: >500 mg/dL Performed By: #### L 499.0042 #### [facility] [address] [place], [place], [address] No Panel InformationOrdered By: Merry Pham on 03-24-2025 Unsaturated Iron Binding Capacity 119 ug/dL Low 228-428 [facility] Screening total cholesterol/ high density lipoprotein (HDL) cholesterol ratioOrdered By: Merry Vero 03-24-2025 Cholesterol.total/Annia sterol in HDL [Mass ratio] 3.02 {ratio} [facility] Serum globulin measurementOr dered By: Merry Pham 03-24-2025 Globulin (S) [Mass/Vol] 2.2 g/dL 2.2-4.2 [facility] Serum or plasma alanine gann otransferase (ALT) measurementOrdered By: Merry Pham 03-24-2025 ALT [Catalytic activity/Vol] 7 U/L <47 [facility] Serum or plasma albumin jovita urement (mass/volume)Ordered By: Merry Pham 03-24-2025 Albumin [Mass/Vol] 3.3 g/dL Low 3.4-4.8 [facility] Serum or plasma albumin/glob ulin mass ratioOrdered By: Merry Pham 03-24-2025 Albumin/Globulin [Mass ratio] 1.5 {ratio} 0.9-2.4 [facility] Serum or plasma alkaline vincent sphatase measurementOrdered By: Merry Pham 5 ALP [Catalytic activity/Vol] 102 U/L 40-129 [facility] Serum or plasma cholesterol in HDL measurement (mass/volume)Ordered By: Merry Pham on 03-24-2025 Cholesterol in HDL [Mass/Vol] 35 mg/dL Low >40 [facility] Comment on above: National Cholesterol Education Program (NCEP) guidelines:<40 mg/dL: Low HDL-cholesterol (major risk factor for CHD)>= 60 mg/dL: High HDL-cholesterol (negative risk factor for CHD)HDL-cholesterol is affected by a number of factors, e.g. smoking, exercise, hormones, sex and age. Serum or plasma cholesterol measurement (mass/volume)Ordered By: Merry Pham on 03-24-2025 Cholesterol [Mass/Vol] 106 mg/dL <201 [facility] Comment on above: Cholesterol level, D esirable <200 mg/dLBorderline high cholesterol 200-239 mg/dLHigh cholesterol >=240 mg/dLRecommendations of the NCEP Adult Treatment Panel for the following risk-cutoff thresholds for the [place] population. Serum or plasma ferritin jermain surement (mass/volume)Ordered By: Merry Pham on 03-24-2025 Ferritin [Mass/Vol] 680 ng/mL High 37-417 [facility] Serum or plasma iron saturat ion measurement (mass fraction)Ordered By: Merry Pham on 03-24-2025 Iron saturation [Mass fraction] 29.2 % 9-55 [facility] Comment on above: Previous reported re sult: 29.0 %Edited by: VIRIDIANA on 03/24/25:0756 AMENDED REPORT 03/24/25 0756 IRON SATURATION previously reported as: 29.0 % Spine Lumbar (Routine)on Spine Lumbar (Routine) [facility] Imaging Services [address] [place] [address] Spine Lumbar (Routine) MR#: [id number] Acct: [id number] Name: NANCY SY Rep #: [id number] : 1945 M 80 From: Abraham Marlow MD PCP: LOIS Resendiz Status: ADM IN Study: Spine Lumbar (Routine) Date of Exam: 03/24/25 Exam# [id number] Ordering Dr: Merry Pham MD PROCEDURE: SPINE [...] the right. L2-3: Mild, diffuse disc bulge. Lvin-es-kkrznkpz thickening of ligamentum flavum. Minimal facet hypertrophy. No central stenosis or exit foraminal narrowing. L3-4: Mild, diffuse disc bulge. Moderate thickening of ligamentum flavum. Minimal bilateral facet hypertrophy. Borderline narrowing of the exit foramina. Correlate with L3 radiculopathy. L4-5: Moderate, diffuse disc bulge. Severe thickening of ligamentum flavum. Jtxy-gt-rdcujsjn facet hypertrophy. Central stenosis to 9 mm AP. Bctpy-ysavnwv-nxau-l eft severe exit foraminal narrowing. Correlate with [...] L4/5 and L5/S1 as above. Reading Location: [id number] CC: MANAGER PRIVACY-C Katherine Brand; Dr. Merry Pham MD Vp Training: Signed Normal [facility] Spine Thoracic (Routine)on 0 03-24-2025 Spine Thoracic (Routine) [facility] Imaging Services [address] [place] [address] Spine Thoracic (Routine) MR#: [id number] Acct: [id number] Name: NANCY SY Rep #: [id number] : 1945 M 80 From: Abraham Marlow MD PCP: Katherine Brand, ISAÍAS-C Status: ADM IN Study: Spine Thoracic (Routine) Date of Exam: Exam# [id number] Ordering Dr: Merry Pham MD PROCEDURE: SPINE [...] Correlate with radiculopathy at T9. Reading Location: [id number] CC: LOIS Brand; Dr. Merry Pham MD Vp Training: Signed Normal [facility] TSH DL <= 0.005 mIU/L QnOrde red By: Merry Pham on 03-24-2025 TSH Qn 0.640 uIU/mL 0.300-4.200 [facility] Thyroid Stim Hormone (TSH)on 03-24-2025 TSH 0.640 uIU/mL Normal 0.300-4.200 [facility] Comment on above: Performed By: #### L 499.0042 #### [facility] [address] [place], [address] Total proteinOrdered By: Ludwig Pham on 03-24-2025 Protein [Mass/Vol] 5.6 g/dL Low 5.9-8.4 [facility] Triglycerides measurementOrd ered By: Merry Pham on 03-24-2025 Triglyceride [Mass/Vol] 45 mg/dL <199 [facility] Comment on above: The drugs N-Acetylcy steine and Metamizole may falsely depress this assay. Normal range: <150 mg/dLBorderline High: 150-199 mg/dLHigh: 200-499 mg/dLVery High: >500 mg/dL Vitamin B12on 03-24-2025 Cobalamin (Vitamin B12) [Mass/Vol] 1246 pg/mL High 180-914 [facility] Comment on above: Performed By: #### L 499.0042 #### [facility] [address] [place], [address] Vitamin B12 ser/plasOrdered By: Merry Vero on 03-24-2025 Cobalamin (Vitamin B12) [Mass/Vol] 1246 pg/mL High 180-914 [facility] 12 Lead EKGon 03-23-2025 12 Lead EKG [facility] Cardiovascular Services [address] [place] [address] 12 Lead EKG 03/23/25 1734 MR#: [id number] Acct: [id number] Name: NANCY SY Rep #: [id number] : 1945 80 From: Shady Loving MD Attending Dr: Dr. Katarina Fabian MD Status: AD M IN Ordering Dr: Marco Camacho DO Date: 03/23/25 Location: [facility] Sex: M C Admitted: 03/23/25 Test Reason [...] normal ECG Confirmed by INDER GOODSON, FRANNY ([id number]), digital editor BEVERLEY ZAPATA ([id number]) on 03/25/2025 1:10:30 PM Referred By: Confirmed By: FRANNY LOVING MD 03/25/25 1310 Date Shady Loving MD CC: MANAGER PRIVACYLeighann Brand; Dr. Katarina Fabian MD; Dr. Marco Camacho, DO Signed Normal [facility] Absolute lymphocyte countOrd ered By: Marco Camacho on 03-23-2025 Lymphocytes Auto (Unsp spec) [#/Vol] 0.82 10*3/uL Low 0.83-4.51 [facility] Absolute neutrophil countOrd ered By: Marco Camacho on 03-23-2025 Neutrophils (Bld) [#/Vol] 6.0 10*3/uL 2.0-7.7 [facility] Anion gap in Serum or Plasma Ordered By: Marco Camacho on 03-23-2025 Anion gap [Moles/Vol] 10 mmol/L 5-15 [facility] Automated lymphocyte count a s percentage of total leukocytesOrdered By: Marco Camacho on 03-23-2025 Lymphocytes/100 WBC Auto (Unsp spec) 10.3 % Low 19-41 [facility] BUN/creatinine ratioOrdered By: Marco Camacho on 03-23-2025 Urea nitrogen/Creatinine [Mass ratio] 17.4 mg/mg 10-20 [facility] Basophil percentageOrdered B y: Marco Camacho on 03-23-2025 Basophils/100 WBC (Bld) 0.5 % 0-1 [facility] Bilirubin, totalOrdered By: Marco Camacho on 03-23-2025 Bilirubin [Mass/Vol] 0.29 mg/dL 0.00-1.30 [facility] Brain/Head without Contrasto n 03-23-2025 Brain/Head without Contrast [facility] Imaging Services [address] [place], [place] [address] Brain/Head without Contrast MR#: [id number] Acct: [id number] Name: NACNY SY Rep #: [id number] : 1945 M 80 From: Presley Delatorre MD PCP: NOAH ResendizC Status: REG ER Study: Brain/Head without Contrast Date of Exam: 03/02 11/23 Exam# [id number] Ordering Dr: Marco Camacho DO PROCEDURE: BRAIN/HEAD [...] IMPRESSION: No acute intracranial abnormality. Reading Location: [id number] CC: MANAGER PRIVACY-C Katherine Brand; Dr. Marco Camacho DO Vp Training: Signed Normal [facility] CBC W/Diff, Automatedon 03-02 Absolute Lymph 0.82 X10 3/uL Low 0.83-4.51 [facility] Comment on above: Performed By: #### L 499.0042 #### [facility] [address] [place], [address] Absolute Neut 6.0 X10 3/uL Normal 2.0-7.7 [facility] Comment on above: Performed By: #### L 499.0042 #### [facility] [address] [place], [address] Basophils/100 WBC (Bld) 0.5 % Normal 0-1 [facility] Comment on above: Performed By: #### L 499.0042 #### [facility] [address] [place], [address] Eosinophils/100 WBC (Bld) 3.3 % Normal 0-5 [facility] Comment on above: Performed By: #### L 499.0042 #### [facility] [address] [place], [address] Erythrocyte distribution width (RBC) [Ratio] 13.5 % Normal 11.6-14.6 [facility] Comment on above: Performed By: #### L 499.0042 #### [facility] [address] [place], [address] Hematocrit (Bld) [Volume fraction] 37.2 % Low 40-54 [facility] Comment on above: Performed By: #### L 499.0042 #### [facility] [address] [place], [address] Hemoglobin (Bld) [Mass/Vol] 12.6 g/dL Low 13.0-16.5 [facility] Comment on above: Performed By: #### L 499.0042 #### [facility] [address] [place], [address] IG% 0.500 Normal 0.0-0.9 [facility] Comment on above: Result Comment: IG% - Immature Granulocytes (promyelocytes, myelocytes and metamyelocytes) > 1% indicates that a LEFT SHIFT is Present. Performed By: #### L 499.0042 #### [facility] [address] [place], [address] Lymphocytes/100 WBC (Bld) 10.3 % Low 19-41 [facility] Comment on above: Performed By: #### L 499.0042 #### [facility] [address] [place], [address] MCH (RBC) [Entitic mass] 32.1 pg High 27.0-32.0 [facility] Comment on above: Performed By: #### L 499.0042 #### [facility] [address] [place], [address] MCHC (RBC) [Mass/Vol] 33.9 g/dL Normal 32-36 [facility] Comment on above: Performed By: #### L 499.0042 #### [facility] [address] [place], [address] MCV (RBC) [Entitic vol] 94.9 fL High 80-94 [facility] Comment on above: Performed By: #### L 499.0042 #### [facility] [address] [place], [address] Monocytes/100 WBC (Bld) 10.1 % High 0-10 [facility] Comment on above: Performed By: #### L 499.0042 #### [facility] [address] [place], [address] Neutrophils/100 WBC (Bld) 75.3 % High 47-70 [facility] Comment on above: Performed By: #### L 499.0042 #### [facility] [address] [place], [address] Nucleated RBC (Bld) [#/Vol] 0 10*3/uL Normal 0-5 [facility] Comment on above: Performed By: #### L 499.0042 #### [facility] [address] [place], [address] Platelet mean volume (Bld) [Entitic vol] 8.9 fL Normal 6.2-12.0 [facility] Comment on above: Performed By: #### L 499.0042 #### [facility] [address] [place], [address] Platelets (Bld) [#/Vol] 232 10*3/uL Normal 150-450 [facility] Comment on above: Performed By: #### L 499.0042 #### [facility] [address] [place], [address] RBC (Bld) [#/Vol] 3.92 10*6/uL Low 4.6-6.2 [facility] Comment on above: Performed By: #### L 499.0042 #### [facility] [address] [place], [address] RDW SD 47.0 fl High 35.1-43.9 [facility] Comment on above: Performed By: #### L 499.0042 #### [facility] [address] [place], [address] WBC (Bld) [#/Vol] 8.0 10*3/uL Normal 4.4-11.0 [facility] Comment on above: Performed By: #### L 499.0042 #### [facility] [address] [place], [address] Carbon dioxide, total [Moles /volume] in Central venous bloodOrdered By: Marco Camacho on 03-23-2025 CO2 [Moles/Vol] 28.5 mmol/L 21.0-32.0 [facility] Chest 1 View (Portable)on Chest 1 View (Portable) [facility] Imaging Services [address] [place] [address] Chest 1 View (Portable) MR#: [id number] Acct: [id number] Name: NANCY SY Rep #: [id number] : 1945 M 80 From: Presley Delatorre MD PCP: Katherine Petal, MANAGER PRIVACY-C Status: REG ER Study: Chest 1 View (Portable) Date of Exam: 03/23/25 Exam# [id number] Ordering Dr: Marco Camacho DO PROCEDURE: CHEST [...] (Portable) IMPRESSION: No Acute Findings. Reading Location: [id number] CC: MANAGER PRIVACY-C Katherine Brand; Dr. Marco Camacho DO Vp Training: Signed Normal [facility] Chloride assayOrdered By: Eric Camacho on 03-23-2025 Chloride [Moles/Vol] 105 mmol/L 98-108 [facility] Comprehensive Metabolic Prof ilon 03-23-2025 Albumin [Mass/Vol] 3.8 g/dL Normal 3.4-4.8 [facility] Comment on above: Performed By: #### L 100.0100, L500.2500 #### [facility] [address] [facility] [address] Albumin/Globulin [Mass ratio] 1.5 {ratio} Normal 0.9-2.4 [facility] Comment on above: Performed By: #### L 100.0100, L500.2500 #### [facility] [address] [place], [address] ALK PHOS 112 U/L Normal 40-129 [facility] Comment on above: Performed By: #### L 100.0100, L500.2500 #### [facility] [address] [place], [address] ALT [Catalytic activity/Vol] 9 U/L Normal <=46 [facility] Comment on above: Performed By: #### L 100.0100, L500.2500 #### [facility] [address] [place], [address] AST [Catalytic activity/Vol] 16 U/L Normal <=37 [facility] Comment on above: Performed By: #### L 100.0100, L500.2500 #### [facility] [address] [place], [address] Bilirubin [Mass/Vol] 0.29 mg/dL Normal 0.00-1.30 [facility] Comment on above: Performed By: #### L 100.0100, L500.2500 #### [facility] [address] [place], [address] BUN/CRE 17.4 RATIO Normal 10-20 [facility] Comment on above: Performed By: #### L 100.0100, L500.2500 #### [facility] [address] [place], [address] Calcium [Mass/Vol] 9.2 mg/dL Normal 7.6-11.0 [facility] Comment on above: Performed By: #### L 100.0100, L500.2500 #### [facility] [address] [place], [address] Chloride [Moles/Vol] 105 mmol/L Normal 98-108 [facility] Comment on above: Performed By: #### L 100.0100, L500.2500 #### [facility] [address] [place], [address] CO2 [Moles/Vol] 28.5 mmol/L Normal 21.0-32.0 [facility] Comment on above: Performed By: #### L 100.0100, L500.2500 #### [facility] [address] [place], [address] Creatinine [Mass/Vol] 0.84 mg/dL Normal 0.70-1.20 [facility] Comment on above: Performed By: #### L 100.0100, L500.2500 #### [facility] [address] [place], [address] ECRCL 71.31 ml/min Normal 50-250 [facility] Comment on above: Performed By: #### L 100.0100, L500.2500 #### [facility] [address] [place], [address] GAP 10 Normal 5-15 [facility] Comment on above: Performed By: #### L 100.0100, L500.2500 #### [facility] [address] [place], [address] GFR/1.73 sq M.predicted among non-blacks MDRD (S/P/Bld) [Vol rate/Area] 89 mL/min/{1.73_m2} Normal >60 [facility] Comment on above: Result Comment: mL/m in/1.73m2 CKD-EPI Creatinine Equation (2020) Performed By: #### L 100.0100, L500.2500 #### [facility] [address] [place], [address] Globulin (S) [Mass/Vol] 2.4 g/dL Normal 2.2-4.2 [facility] Comment on above: Performed By: #### L 100.0100, L500.2500 #### [facility] [address] [place], [address] Glucose [Mass/Vol] 95 mg/dL Normal 70-99 [facility] Comment on above: Performed By: #### L 100.0100, L500.2500 #### [facility] [address] [place], [address] Potassium [Moles/Vol] 3.8 mmol/L Normal 3.3-5.1 [facility] Comment on above: Performed By: #### L 100.0100, L500.2500 #### [facility] [address] [place], [address] Sodium [Moles/Vol] 144 mmol/L Normal 133-145 [facility] Comment on above: Performed By: #### L 100.0100, L500.2500 #### [facility] [address] [place], [address] T PROT 6.2 g/dL Normal 5.9-8.4 [facility] Comment on above: Performed By: #### L 100.0100, L500.2500 #### [facility] [address] [place], [address] Urea nitrogen [Mass/Vol] 15 mg/dL Normal 4-19 [facility] Comment on above: Performed By: #### L 100.0100, L500.2500 #### [facility] [address] [place], [address] Echo Completeon 03-23-2025 Echo Complete [facility] [address] [place] [address] Echo Complete 03/24/25 0814 MR#: [id number] Acct: [id number] Name: NANCY SY Rep #: [id number] : 1945 80 From: Shady Loving MD Attending Dr: Dr. Katarina Fabian MD Status: AD M IN Ordering Dr: Merry Pham MD Date: 03/23/25 Location: PCU Sex: M C Admitted: 03/23/25 Reason For [...] MD; Dr. Katarina Fabian MD Date Dictated: 03/24/2514 Date Transcribed: 03/24/25 113 Vp Training: Signed Normal [facility] Emergency Department Summary on 03-23-2025 Emergency Department Summary [facility] Medical Records Department [address] [place] [address] Emergency Department Summary 03/23/25 MR#: [id number] Acct: [id number] Name: NANCY SY Rep #: [id number] : 1945 80 From: Marco Camacho DO PCP: LOIS Resendiz Status:ADM IN Location: [address] History of Present Illness Chief Complaint: Edema PFSH PFSH Medical History CKD (chronic kidney disease), stage [...] of compre (more content not included)... Normal [facility] Eosinophil percentageOrdered By: Marco Camacho on 03-23-2025 Eosinophils/100 WBC (Bld) 3.3 % 0-5 [facility] Erythrocyte distribution wid th ratioOrdered By: Marco Camacho on 03-23-2025 Erythrocyte distribution width (RBC) [Ratio] 13.5 % 11.6-14.6 [facility] Erythrocyte distribution wid th standard deviationOrdered By: Marco Camacho on 03-23-2025 Erythrocyte distribution width (RBC) [Ratio] 47.0 fl High 35.1-43.9 [facility] Glomerular filtration rate ( GFR) estimation/1.73 sq m using serum, plasma, or whole bOrdered By: Marco Camacho on 03-23-2025 GFR/1.73 sq M.predicted among non-blacks MDRD (S/P/Bld) [Vol rate/Area] 89 mL/min/{1.73_m2} >60 [facility] Comment on above: mL/min/1.73m2 CKD-EP I Creatinine Equation (2020) H AND P Exam - Hospitaliston 03-23-2025 H&P Exam - Hospitalist [facility] Medical Records Department [address] [place] [address] H P Exam - Hospitalist 03/23/252008 MR#: [id number] Acct: [id number] Name: NANCY SY Rep #: [id number] : 1945 80 From: Merry Pham MD PCP: LOIS Resendiz Status:ADM [facility] - [facility] General Date of Admission: 03/23/25 Date of Service: 03/23/25 Chief Complaint: Acute on Chronic back pain, increased BL LE edema, chronic debility HPI Narrative The patient is a 80 y/o M w/ PMHx: Possible Chronic macrocytic anemia, CKD stage II per GFR trending, OA, Allergic rhinitis, Former tobacco use who presents [facility] ED on 03/23/2025 with 2 weeks of [...] fracture, chest x-ray with no acute findings. [facility] Medical History CKD (chronic kidney disease), stage [...] sore throat. (more content not included)... Normal [facility] Hematocrit Auto (Bld) [Volum e fraction]Ordered By: Marco Camacho on 03-23-2025 Hematocrit (Bld) [Volume fraction] 37.2 % Low 40-54 [facility] Hemoglobin measurementOrdere d By: Marco Camacho on 03-23-2025 Hemoglobin (Bld) [Mass/Vol] 12.6 g/dL Low 13.0-16.5 [facility] Immature granulocytes/100 WB C Auto (Bld)Ordered By: Marco Camacho on 03-23-2025 Immature granulocytes/100 WBC (Bld) 0.500 % 0.0-0.9 [facility] Comment on above: IG% - Immature Granu locytes (promyelocytes, myelocytes and metamyelocytes) > 1% indicates that a LEFT SHIFT is Present. L501.4021on 03-23-2025 Trop T High Sen 33 ng/L High <=22 [facility] Comment on above: Performed By: #### L 100.0100, L500.2500 #### [facility] [address] [place], [place], [address] L503.7505on 03-23-2025 Natriuretic peptide B (Bld) [Mass/Vol] 417 pg/mL Normal <=1800 [facility] Comment on above: Result Comment: Hear t Failure Unlikely: < 300 pg/mL Heart Failure Likely < 50 Years: > 450 pg/mL 50-75 Years: > 900 pg/mL >75 Years: > 1800 pg/mL Performed By: #### L 100.0100, L500.2500 #### [facility] [address] [place], [place], [address] Laboratory - Chemistry and C hemistry - challengeOrdered By: Marco Camacho on 03-23-2025 AST [Catalytic activity/Vol] 16 U/L <38 [facility] Lipaseon 03-23-2025 Lipase [Catalytic activity/Vol] 21 U/L Normal 13-75 [facility] Comment on above: Result Comment: Greg blanco note: LIPASE revised reference range effective 22. New Lipase methodology. Expected to produce lower values than the previous assay method. NEW Reference Range: 13 - 75 U/L Performed By: #### L 100.0100, L500.2500 #### [facility] [address] [place], [address] Lipase measurementOrdered By : Marco Camacho on 03-23-2025 Lipase [Catalytic activity/Vol] 21 U/L 13-75 [facility] Comment on above: Please note:LIPASE r evised reference range effective 22. New Lipase methodology. Expected to produce lower values than the previous assay method. NEW Reference Range: 13 - 75 U/L MCV (mean corpuscular volume ) determinationOrdered By: Marco Camacho on 03-23-2025 MCV (RBC) [Entitic vol] 94.9 fL High 80-94 [facility] Magnesiumon 03-23-2025 Magnesium [Mass/Vol] 1.6 mg/dL Normal 1.5-2.2 [facility] Comment on above: Order Comment: Comme nts: may add to ED labs Performed By: #### L 100.0100, L500.2500 #### [facility] [address] [place], [place], [address] Magnesium measurement (mass/ volume)Ordered By: Merry Pham on 03-23-2025 Magnesium (Unsp spec) [Mass/Vol] 1.6 mg/dL 1.5-2.2 [facility] Mean corpuscular hemoglobin (MCH) determinationOrdered By: Marco Camacho on 03-23-2025 MCH (RBC) [Entitic mass] 32.1 pg High 27.0-32.0 [facility] Mean corpuscular hemoglobin concentration (MCHC) determinationOrdered By: Marco Camacho on 03-23-2025 MCHC (RBC) [Mass/Vol] 33.9 g/dL 32-36 [facility] Mean platelet volume determi nationOrdered By: Marco Camacho on 03-23-2025 Platelet mean volume (Bld) [Entitic vol] 8.9 fL 6.2-12.0 [facility] Monocyte percentageOrdered B y: Marco Camacho on 03-23-2025 Monocytes/100 WBC (Bld) 10.1 % High 0-10 [facility] Natriuretic peptide.B prohor jem N-Terminal [Mass/volume] in Serum or PlasmaOrdered By: Marco Camacho on 03-23-2025 Natriuretic peptide.B prohormone N-Terminal [Mass/Vol] 417 pg/mL <1800 [facility] Comment on above: Heart Failure Unlike ly: < 300 pg/mLHeart Failure Likely< 50 Years: > 450 pg/mL50-75 Years: > 900 pg/mL>75 Years: > 1800 pg/mL Neutrophil percentageOrdered By: Marco Camacho on 03-23-2025 Neutrophils/100 WBC (Bld) 75.3 % High 47-70 [facility] Nucleated red blood cell per centageOrdered By: Marco Camacho on 03-23-2025 Nucleated RBC/100 WBC (Bld) [Ratio] 0 % 0-5 [facility] Platelet countOrdered By: Eric Camacho on 03-23-2025 Platelets (Bld) [#/Vol] 232 10*3/uL 150-450 [facility] Potassium measurement (mass/ volume)Ordered By: Marco Camacho on 03-23-2025 Potassium (Unsp spec) [Mass/Vol] 3.8 mmol/L 3.3-5.1 [facility] RBC Auto (Bld) [#/Vol]Ordere d By: Marco Camacho on 03-23-2025 RBC (Bld) [#/Vol] 3.92 10*6/uL Low 4.6-6.2 [facility] Serum creatinine measurement (mass/volume)Ordered By: Marco Camacho on 03-23-2025 Creatinine [Mass/Vol] 0.84 mg/dL 0.70-1.20 [facility] Serum globulin measurementOr dered By: Marco Camacho on 03-23-2025 Globulin (S) [Mass/Vol] 2.4 g/dL 2.2-4.2 [facility] Serum glucose measurement (m ass/volume)Ordered By: Marco Camacho on 03-23-2025 Glucose [Mass/Vol] 95 mg/dL 70-99 [facility] Serum or plasma alanine gann otransferase (ALT) measurementOrdered By: Marco Camacho on 03-23-2025 ALT [Catalytic activity/Vol] 9 U/L <47 [facility] Serum or plasma albumin jovita urement (mass/volume)Ordered By: Marco Camacho on 03-23-2025 Albumin [Mass/Vol] 3.8 g/dL 3.4-4.8 [facility] Serum or plasma albumin/glob ulin mass ratioOrdered By: Marco Camacho on 03-23-2025 Albumin/Globulin [Mass ratio] 1.5 {ratio} 0.9-2.4 [facility] Serum or plasma alkaline vincent sphatase measurementOrdered By: Marco Camacho on 03-23-2025 ALP [Catalytic activity/Vol] 112 U/L 40-129 [facility] Serum or plasma calcium jovita urement (mass/volume)Ordered By: Marco Camacho on 03-23-2025 Calcium [Mass/Vol] 9.2 mg/dL 7.6-11.0 [facility] Serum or plasma urea nitroge n measurement (mass/volume)Ordered By: Marco Camacho on 03-23-2025 Urea nitrogen [Mass/Vol] 15 mg/dL 4-19 [facility] Sodium levelOrdered By: Tianna Camacho on 03-23-2025 Sodium [Moles/Vol] 144 mmol/L 133-145 [facility] Spine Lumbar without Contras ton 03-23-2025 Spine Lumbar without Contrast [facility] [address] [place] [address] Spine Lumbar without Contrast MR#: [id number] Acct: [id number] Name: NANCY SY Rep #: [id number] : 1945 M 80 From: Izaiah Baptiste MD PCP: Katherine Brand, MANAGER PRIVACY-C Status: REG ER Study: Spine Lumbar without Contrast Date of Exam: Exam# [id number] Ordering Dr: Marco Camacho DO EXAM: CT [...] evaluation with MRI is recommended. Reading Location: [facility] CC: LOIS Brand; Dr. Marco Camacho DO Vp Training: Signed Normal [facility] Spine Thoracic without Contr ason 03-23-2025 Spine Thoracic without Contras [facility] [address] [place] [address] Spine Thoracic without Contras MR#: [id number] Acct: [id number] Name: NANCY SY Rep #: [id number] : 1945 M 80 From: Izaiah Baptiste MD PCP: LOIS Resendiz Status: REG ER Study: Spine Thoracic without Contras Date of Exam: 0 03/23/25 Exam# [id number] Ordering Dr: Marco Camacho DO EXAM: CT [...] fracture can not be excluded. Reading Location: [facility] CC: LOIS Brand; Dr. Marco Camacho, Vp Training: Signed Normal [facility] Total proteinOrdered By: Mary Kay Camacho on 03-23-2025 Protein [Mass/Vol] 6.2 g/dL 5.9-8.4 [facility] Troponin T HS 2 HRon 025 Trop T High Sen 27 ng/L High <=22 [facility] Comment on above: Performed By: #### L 499.0042 #### [facility] [address] [place], [address] Troponin T HS 4 HRon 025 Trop T High Sen 28 ng/L High <=22 [facility] Comment on above: Performed By: #### L 100.0100, L500.2500 #### [facility] [address] [place], [address] Troponin T.cardiac [Mass/vol ume] in Serum or Plasma by High sensitivity methodOrdered By: Marco Camacho on 03-23-2025 Troponin T.cardiac High sensitivity method [Mass/Vol] 28 ng/L High <22 [facility] Troponin T.cardiac High sensitivity method [Mass/Vol] 27 ng/L High <22 [facility] Troponin T.cardiac High sensitivity method [Mass/Vol] 33 ng/L High <22 [facility] Venous Duplex Imag/Efrain Extre mon 03-23-2025 Venous Duplex Imag/Efrain Extrem [facility] [address] [place], [place] [address] Venous Duplex Imag/Efrain Extrem MR#: [id number] Acct: [id number] Name: NANCY SY Rep #: [id number] : 1945 M 80 From: Presley Delatorre MD PCP: Katherine Brand, NOA[facility] Status: REG ER Study: Venous Duplex Imag/Efrain Extrem Date of Exam: Exam# [id number] Ordering Dr: Marco Camacho DO PROCEDURE: VENOUS DUPLEX IMAG/EFRAIN EXTREM 03/23/2025 REASON FOR EXAM: M 80 y/o TECHNIQUE: VENOUS DUPLEX IMAG/EFRAIN EXTREM COMPARISON: None. FINDINGS: Normal compressibility and color Doppler flow of the bilateral lower extremities. Edema is visualized in the bilateral calves. US/Venous Duplex Imag/Efrain Extrem IMPRESSION: No DVT. Reading Location: [facility] CC: MANAGER PRIVACY-C Katherine Brand; Dr. Marco Camacho DO Vp Training: Signed Normal [facility] White blood cell (WBC) count Ordered By: Marco Camacho on 03-23-2025 WBC (Bld) [#/Vol] 8.0 10*3/uL 4.4-11.0 [facility] .GFRon 03-10-2025 Estimated Glomerular Filtration Rate 90 ml/min/1.73sqm Normal [facility] Comment on above: Result Comment: Stages [...] results. Performed By: #### V IDH #### [facility] [address] [place] [address] BMPon 03-10-2025 BUN/Creatinine Ratio 26 ratio Normal 7-27 [facility] Comment on above: Order Comment: stat please Performed By: #### V IDH #### [address] [address] Calcium [Mass/Vol] 8.6 mg/dL Normal 8.4-10.2 [facility] Comment on above: Order Comment: stat please Performed By: #### V IDH #### [address] [address] Chloride [Moles/Vol] 103 mmol/L Normal 98-107 [facility] Comment on above: Order Comment: stat please Performed By: #### V IDH #### [address] [address] CO2 [Moles/Vol] 33 mmol/L High 23-31 [facility] Comment on above: Order Comment: stat please Performed By: #### V IDH #### [address] [address] Creatinine [Mass/Vol] 0.81 mg/dL Normal 0.67-1.17 [facility] Comment on above: Order Comment: stat please Performed By: #### V IDH #### [address] [address] Electrolyte Balance 4.0 mEq/L Normal 4.0-15.0 [facility] Comment on above: Order Comment: stat please Performed By: #### V IDH #### [address] [address] Glucose [Mass/Vol] 109 mg/dL Normal 83-110 [facility] Comment on above: Order Comment: stat please Performed By: #### V IDH #### [address] [address] Potassium [Moles/Vol] 3.2 mmol/L Low 3.5-5.1 [facility] Comment on above: Order Comment: stat please Performed By: #### V IDH #### [place] [address] Sodium [Moles/Vol] 140 mmol/L Normal 136-145 [facility] Comment on above: Order Comment: stat please Performed By: #### V IDH #### [facility] [address] [place], [place] [address] Urea nitrogen [Mass/Vol] 21 mg/dL High 7-18 [facility] Comment on above: Order Comment: stat please Performed By: #### V IDH #### [facility] [address] [place], [place] [address] LABORATORYOrdered By: SYSTEM SYSTEM on 03-10-2025 Calcium [...] Basophil, Absolute 0.1 10 3/mcL Normal 0.0-0.3 [facility] Comment on above: Performed By: #### F ERR, BMP, ANEU, MORPH, TSH, ADIFF, CBC, GFR, FE, FT4 ####[facility] [place], [place] [address] Basophils/100 WBC (Bld) 0.5 % Normal 0.0-2.5 [facility] Comment on above: Performed By: #### F ERR, BMP, ANEU, MORPH, TSH, ADIFF, CBC, GFR, FE, FT4 ####[facility] [place], [place] [address] Eosinophil, Absolute 0.2 10 3/mcL Normal 0.0-0.7 [facility] Comment on above: Performed By: #### F ERR, BMP, ANEU, MORPH, TSH, ADIFF, CBC, GFR, FE, FT4 ####[place] [address] [place], [place] [address] Eosinophils/100 WBC (Bld) 2.5 % Normal 0.0-6.0 [facility] Comment on above: Performed By: #### F ERR, BMP, ANEU, MORPH, TSH, ADIFF, CBC, GFR, FE, FT4 ####[place] [address] [place], [place] [address] Lymphocyte, Absolute 0.8 10 3/mcL Low 0.9-4.3 [facility] Comment on above: Performed By: #### F ERR, BMP, ANEU, MORPH, TSH, ADIFF, CBC, GFR, FE, FT4 ####[address] [address] Lymphocytes/100 WBC (Bld) 8.3 % Low 20.0-40.0 [facility] Comment on above: Performed By: #### F ERR, BMP, ANEU, MORPH, TSH, ADIFF, CBC, GFR, FE, FT4 ####[address] [address] Monocyte, Absolute 0.6 10 3/mcL Normal 0.1-1.4 [facility] Comment on above: Performed By: #### F ERR, BMP, ANEU, MORPH, TSH, ADIFF, CBC, GFR, FE, FT4 ####[place] [address] [place], [place] [address] Monocytes/100 WBC (Bld) 6.4 % Normal 2.0-13.0 [facility] Comment on above: Performed By: #### F ERR, BMP, ANEU, MORPH, TSH, ADIFF, CBC, GFR, FE, FT4 ####[place] [address] [place], [place] [address] Neutrophils/100 WBC (Bld) 82.3 % High 50.0-75.0 [facility] Comment on above: Performed By: #### F ERR, BMP, ANEU, MORPH, TSH, ADIFF, CBC, GFR, FE, FT4 ####[place] [address] [place], [place] [address] .GFRon 03-09-2025 Estimated Glomerular Filtration Rate 90 ml/min/1.73sqm Normal [facility] Comment on above: Result Comment: Stages [...] TSH, ADIFF, CBC, GFR, FE, FT4 ####[address] [place], [place] [address] .Morphon 03-09-2025 Platelet Estimate Normal Normal [facility] Comment on above: Performed By: #### F ERR, BMP, ANEU, MORPH, TSH, ADIFF, CBC, GFR, FE, FT4 ####[facility] [place], [place] [address] .NEUABSon 03-09-2025 Neutrophil, Absolute 7.9 10 3/mcL Normal 2.3-8.1 [facility] Comment on above: Performed By: #### F ERR, BMP, ANEU, MORPH, TSH, ADIFF, CBC, GFR, FE, FT4 ####[facility] [place], [place] [address] BMPon 03-09-2025 BUN/Creatinine Ratio 25 ratio Normal 7-27 [facility] Comment on above: Performed By: #### F ERR, BMP, ANEU, MORPH, TSH, ADIFF, CBC, GFR, FE, FT4 ####[place] [address] [place], [place] [address] Calcium [Mass/Vol] 9.1 mg/dL Normal 8.4-10.2 [facility] Comment on above: Performed By: #### F ERR, BMP, ANEU, MORPH, TSH, ADIFF, CBC, GFR, FE, FT4 ####[place] [address] [place], [place] [address] Chloride [Moles/Vol] 108 mmol/L High 98-107 [facility] Comment on above: Performed By: #### F ERR, BMP, ANEU, MORPH, TSH, ADIFF, CBC, GFR, FE, FT4 ####[place] [address] [place], [place] [address] CO2 [Moles/Vol] 33 mmol/L High 23-31 [facility] Comment on above: Performed By: #### F ERR, BMP, ANEU, MORPH, TSH, ADIFF, CBC, GFR, FE, FT4 ####[place] [address] [place], [place] [address] Creatinine [Mass/Vol] 0.80 mg/dL Normal 0.67-1.17 [facility] Comment on above: Performed By: #### F ERR, BMP, ANEU, MORPH, TSH, ADIFF, CBC, GFR, FE, FT4 ####[place] [address] [place] [id number] Electrolyte Balance 8.0 mEq/L Normal 4.0-15.0 [facility] Comment on above: Performed By: #### F ERR, BMP, ANEU, MORPH, TSH, ADIFF, CBC, GFR, FE, FT4 ####[address] [place], [place] [address] Glucose [Mass/Vol] 112 mg/dL High 83-110 [facility] Comment on above: Performed By: #### F ERR, BMP, ANEU, MORPH, TSH, ADIFF, CBC, GFR, FE, FT4 ####[address] [address] Potassium [Moles/Vol] 3.2 mmol/L Low 3.5-5.1 [facility] Comment on above: Performed By: #### F ERR, BMP, ANEU, MORPH, TSH, ADIFF, CBC, GFR, FE, FT4 ####[address] [address] Sodium [Moles/Vol] 149 mmol/L High 136-145 [facility] Comment on above: Performed By: #### F ERR, BMP, ANEU, MORPH, TSH, ADIFF, CBC, GFR, FE, FT4 ####[address] [address] Urea nitrogen [Mass/Vol] 20 mg/dL High 7-18 [facility] Comment on above: Performed By: #### F ERR, BMP, ANEU, MORPH, TSH, ADIFF, CBC, GFR, FE, FT4 ####[address] [address] CBCon 03-09-2025 Erythrocyte distribution width (RBC) [Ratio] 14.2 % Normal 11.5-15.5 [facility] Comment on above: Performed By: #### F ERR, BMP, ANEU, MORPH, TSH, ADIFF, CBC, GFR, FE, FT4 ####[place] [address] [place], [place] [address] Hematocrit (Bld) [Volume fraction] 40.6 % Normal 40.0-52.0 [facility] Comment on above: Performed By: #### F ERR, BMP, ANEU, MORPH, TSH, ADIFF, CBC, GFR, FE, FT4 ####[place] [address] Hgb 13.8 G/dL Normal 13.0-17.5 [facility] Comment on above: Performed By: #### F ERR, BMP, ANEU, MORPH, TSH, ADIFF, CBC, GFR, FE, FT4 ####[place] [address] MCH (RBC) [Entitic mass] 31.9 pg Normal 27.0-33.0 [facility] Comment on above: Performed By: #### F ERR, BMP, ANEU, MORPH, TSH, ADIFF, CBC, GFR, FE, FT4 ####[place] [address] MCHC 34.0 G/dL Normal 32.0-36.0 [facility] Comment on above: Performed By: #### F ERR, BMP, ANEU, MORPH, TSH, ADIFF, CBC, GFR, FE, FT4 ####[place] [address] MCV (RBC) [Entitic vol] 93.9 fL Normal 81.0-100.0 [facility] Comment on above: Performed By: #### F ERR, BMP, ANEU, MORPH, TSH, ADIFF, CBC, GFR, FE, FT4 ####[place] [address] Platelet 281 10 3/mcL Normal 150-450 [facility] Comment on above: Performed By: #### F ERR, BMP, ANEU, MORPH, TSH, ADIFF, CBC, GFR, FE, FT4 ####[place] [address] Platelet mean volume (Bld) [Entitic vol] 7.1 fL Normal 6.4-10.5 [facility] Comment on above: Performed By: #### F ERR, BMP, ANEU, MORPH, TSH, ADIFF, CBC, GFR, FE, FT4 ####[facility] [place], [place] [address] RBC 4.33 10 6/mcL Low 4.50-6.00 [facility] Comment on above: Performed By: #### F ERR, BMP, ANEU, MORPH, TSH, ADIFF, CBC, GFR, FE, FT4 ####[place] [address] [place], [place] [address] WBC 9.7 10 3/mcL Normal 4.5-10.8 [facility] Comment on above: Performed By: #### F ERR, BMP, ANEU, MORPH, TSH, ADIFF, CBC, GFR, FE, FT4 ####[place] [address] [place], [place] [address] FEon 03-09-2025 Iron [Mass/Vol] 83 ug/dL Normal 65-175 [facility] Comment on above: Performed By: #### F ERR, BMP, ANEU, MORPH, TSH, ADIFF, CBC, GFR, FE, FT4 ####[address] [address] [place] 03-09-2025 Ferritin [Mass/Vol] 731.0 ng/mL High 26.0-388.0 [facility] Comment on above: Performed By: #### F ERR, BMP, ANEU, MORPH, TSH, ADIFF, CBC, GFR, FE, FT4 ####[address] [address] FT4on 03-09-2025 Free T4 [Mass/Vol] 1.12 ng/dL Normal 0.76-1.46 [facility] Comment on above: Performed By: #### F ERR, BMP, ANEU, MORPH, TSH, ADIFF, CBC, GFR, FE, FT4 ####[address] [address] LABORATORYOrdered By: SYSTEM SYSTEM on 03-09-2025 Basophils [...] 03-09-2025 TSH Qn 1.32 m[IU]/L Normal 0.36-3.74 [facility] Comment on above: Performed By: #### F ERR, BMP, ANEU, MORPH, TSH, ADIFF, CBC, GFR, FE, FT4 ####[facility] [place], [place] [address] MYCOon 02-26-2025 Mycoplasma IgG Negative Normal [facility] Comment on above: Result Comment: INTE RPRETATION OF MYCOPLASMA IgG BY EIA: Negative: No detectable M. pneumoniae IgG antibody. Positive: Mycoplasma pneumoniae IgG antibody Detected. Equivocal: Equivocal for IgG antibodies to Mycoplasma pneumoniae. Suggest repeat testing in 10-14 days. Performed By: #### V IDH #### [facility] [address] [place] [address] MRSAPCRon 02-24-2025 MRSA (PCR) Not detected Normal Not Detected [facility] Comment on above: Order Comment: 2024 16:17:44 EDT @AO Notified SAMANTHA Dowell of unlabeled specimen and recollect. [facility] Result Comment: Note s [id number] Performed By: #### M RSAPCR, RESCVID #### [facility] [address] [place] [address] MRSA PCR Int See Below Normal [facility] Comment on above: Order Comment: 2024 16:17:44 EDT @AO Notified SAMANTHA Dowell of unlabeled specimen and recollect. [facility] Result Comment: Clinical Interpretation: MRSA DNA [...] Performed By: #### M RSAPCR, RESCVID #### [facility] [address] [place] [address] .Auto Diffon 02-23-2025 Basophil, Absolute 0.1 10 3/mcL Normal 0.0-0.3 [facility] Comment on above: Performed By: #### A DIFF, GFR, CBC, CMP, MG, ANEU #### [address] [address] Lymphocyte, Absolute 0.7 10 3/mcL Low 0.9-4.3 [facility] Comment on above: Performed By: #### A DIFF, GFR, CBC, CMP, MG, ANEU #### [address] [address] Monocyte, Absolute 1.0 10 3/mcL Normal 0.1-1.4 [facility] Comment on above: Performed By: #### A DIFF, GFR, CBC, CMP, MG, ANEU #### [address] [address] .Auto DiffOrdered By: SYSTEM SYSTEM on 02-23-2025 Basophils/100 WBC (Bld) 0.6 % Normal 0.0-2.5 A [facility] Comment on above: Performed By: #### A DIFF, GFR, CBC, CMP, MG, ANEU #### [address] [address] Eosinophil, Absolute 0.1 103/mcL Normal 0.0-0.7 [facility] Comment on above: Performed By: #### A DIFF, GFR, CBC, CMP, MG, ANEU #### [address] [address] Eosinophils/100 WBC (Bld) 1.1 % Normal 0.0-6.0 [facility] Comment on above: Performed By: #### A DIFF, GFR, CBC, CMP, MG, ANEU #### [address] [address] Lymphocytes/100 WBC (Bld) 6.9 % Low 20.0-40.0 [facility] Comment on above: Performed By: #### A DIFF, GFR, CBC, CMP, MG, ANEU #### [address] [address] Monocytes/100 WBC (Bld) 9.4 % Normal 2.0-13.0 [facility] Comment on above: Performed By: #### A DIFF, GFR, CBC, CMP, MG, ANEU #### [place] [address] [place], [place] [address] Neutrophils/100 WBC (Bld) 82.0 % High 50.0-75.0 [facility] Comment on above: Performed By: #### A DIFF, GFR, CBC, CMP, MG, ANEU #### [address] [address] .GFRon 02-23-2025 Estimated Glomerular Filtration Rate 95 ml/min/1.73sqm Normal [facility] Comment on above: Result Comment: Stages [...] Performed By: #### M RSAPCR, RESCVID #### [address] [address] .NEUABSon 02-23-2025 Neutrophil, Absolute 8.8 10 3/mcL High 2.3-8.1 [facility] Comment on above: Performed By: #### M RSAPCR, RESCVID #### [address] [address] CBCon 02-23-2025 Hgb 12.9 G/dL Low 13.0-17.5 [facility] Comment on above: Performed By: #### A DIFF, GFR, CBC, CMP, MG, ANEU #### [place] [id number] [place], [place] [address] Platelet 204 10 3/mcL Normal 150-450 [facility] Comment on above: Performed By: #### A DIFF, GFR, CBC, CMP, MG, ANEU #### [place] [address] RBC 3.96 10 6/mcL Low 4.50-6.00 [facility] Comment on above: Performed By: #### A DIFF, GFR, CBC, CMP, MG, ANEU #### [place] [address] WBC 10.8 10 3/mcL Normal 4.5-10.8 [facility] Comment on above: Performed By: #### A DIFF, GFR, CBC, CMP, MG, ANEU #### [place] [address] CBCOrdered By: SYSTEM SYSTEM on 02-23-2025 Erythrocyte distribution width (RBC) [Ratio] 14.4 % Normal 11.5-15.5 [facility] Comment on above: Performed By: #### A DIFF, GFR, CBC, CMP, MG, ANEU #### [place] [address] Hematocrit (Bld) [Volume fraction] 37.0 % Low 40.0-52.0 [facility] Comment on above: Performed By: #### A DIFF, GFR, CBC, CMP, MG, ANEU #### [place] [address] MCH (RBC) [Entitic mass] 32.5 pg Normal 27.0-33.0 [facility] Comment on above: Performed By: #### A DIFF, GFR, CBC, CMP, MG, ANEU #### [place] [address] MCHC 34.7 G/dL Normal 32.0-36.0 [facility] Comment on above: Performed By: #### A DIFF, GFR, CBC, CMP, MG, ANEU #### [place] [address] MCV (RBC) [Entitic vol] 93.5 fL Normal 81.0-100.0 A O [facility] Comment on above: Performed By: #### A DIFF, GFR, CBC, CMP, MG, ANEU #### [address], [place] [address] Platelet mean volume (Bld) [Entitic vol] 6.8 fL Normal 6.4-10.5 [facility] Comment on above: Performed By: #### A DIFF, GFR, CBC, CMP, MG, ANEU #### [place] [address] [place], [place] [address] CMPon 02-23-2025 Albumin Level 3.2 G/dL Low 3.4-4.8 [facility] Comment on above: Performed By: #### M RSAPCR, RESCVID #### [address] [address] Albumin/Globulin [Mass ratio] 1.0 {ratio} Low 1.1-2.5 [facility] Comment on above: Performed By: #### M RSAPCR, RESCVID #### [address] [address] ALP [Catalytic activity/Vol] 67 U/L Normal 40-135 [facility] Comment on above: Performed By: #### M RSAPCR, RESCVID #### [address] [address] ALT [Catalytic activity/Vol] 15 U/L Low 16-63 [facility] Comment on above: Performed By: #### M RSAPCR, RESCVID #### [address] [address] AST [Catalytic activity/Vol] 15 U/L Normal 10-40 [facility] Comment on above: Performed By: #### M RSAPCR, RESCVID #### [address] [address] Bili Total 0.7 mg/dL Normal 0.2-1.0 [facility] Comment on above: Result Comment: Use of this assay is not recommended for patients undergoing treatment with eltrombopag due to the potential for falsely elevated results. Performed By: #### M RSAPCR, RESCVID #### [address] [address] BUN/Creatinine Ratio 37 ratio High 7-27 [facility] Comment on above: Performed By: #### M RSAPCR, RESCVID #### [address] [address] Calcium [Mass/Vol] 8.0 mg/dL Low 8.4-10.2 [facility] Comment on above: Performed By: #### M RSAPCR, RESCVID #### [address] [address] Chloride [Moles/Vol] 109 mmol/L High 98-107 [facility] Comment on above: Performed By: #### M RSAPCR, RESCVID #### [address] [address] CO2 [Moles/Vol] 27 mmol/L Normal 23-31 [facility] Comment on above: Performed By: #### M RSAPCR, RESCVID #### [address] [address] Creatinine [Mass/Vol] 0.67 mg/dL Normal 0.67-1.17 [facility] Comment on above: Performed By: #### M RSAPCR, RESCVID #### [address] [address] Electrolyte Balance 8.0 mEq/L Normal 4.0-15.0 [facility] Comment on above: Performed By: #### M RSAPCR, RESCVID #### [address] [address] Globulin 3.2 G/dL Normal 2.7-4.4 [facility] Comment on above: Performed By: #### M RSAPCR, RESCVID #### [address] [address] Glucose [Mass/Vol] 107 mg/dL Normal 83-110 [facility] Comment on above: Performed By: #### M RSAPCR, RESCVID #### [address] [address] Potassium [Moles/Vol] 3.4 mmol/L Low 3.5-5.1 [facility] Comment on above: Performed By: #### M RSAPCR, RESCVID #### [place] [address] [place] [address] Sodium [Moles/Vol] 144 mmol/L Normal 136-145 [facility] Comment on above: Performed By: #### M RSAPCR, RESCVID #### [address] [address] Total Protein 6.4 G/dL Normal 6.4-8.2 [facility] Comment on above: Performed By: #### M RSAPCR, RESCVID #### [facility] [address] [place] [address] Urea nitrogen [Mass/Vol] 25 mg/dL High 7-18 [facility] Comment on above: Performed By: #### M RSAPCR, RESCVID #### [address] [address] [address] ANGIOGRAPHY CHEST W/CONTR Diana 02-23-2025 CT [...] Date: 02/23/2025 4:22:10 PM Ordering Provider: OSMEL Smallwood [facility] LABORATORYOrdered By: Rosa Zuniga on 02-23-2025 MRSA (PCR) Not Detected 1 (02/23/25 4:33 PM) Normal Not Detected [facility] Comment on above: Result Comment: Note s [id number] MRSA PCR Int See Below 2 *NA* [...] 02-23-2025 Magnesium [Mass/Vol] 2.2 mg/dL Normal 1.8-2.4 [facility] Comment on above: Performed By: #### M RSAPCR, RESCVID #### [place] [address] MYCOon 02-23-2025 Mycoplasma IgM Negative Normal [facility] Comment on above: Result Comment: INTE RPRETATION OF MYCOPLASMA IgM: Negative: IgM to M. pneumoniae Absent, or at levels below the assay limit of detection. Positive: IgM to M. pneumoniae Present. Invalid: Test results are invalid due to invalid internal control. Assay was performed in duplicate. Repeat testing is suggested if clinically indicated. Performed By: #### V IDH #### [address] [address] RESCVIDon 02-23-2025 Adenovirus Not detected Normal Not Detected [facility] Comment on above: Performed By: #### M RSAPCR, RESCVID #### [address] [address] Bordetella Parapertussis Not detected Normal Not Detected [facility] Comment on above: Performed By: #### M RSAPCR, RESCVID #### [address] [address] Bordetella Pertussis Not detected Normal Not Detected [facility] Comment on above: Performed By: #### M RSAPCR, RESCVID #### [facility] [address] [place] [address] Chlamydophila pneumoniae Not detected Normal Not Detected [facility] Comment on above: Performed By: #### M RSAPCR, RESCVID #### [facility] [address] [place] [address] Coronavirus 229E (Not COVID-19) Not detected Normal Not Detected [facility] Comment on above: Performed By: #### M RSAPCR, RESCVID #### [facility] [address] [place] [address] Coronavirus HKU1 (Not COVID-19) Not detected Normal Not Detected [facility] Comment on above: Performed By: #### M RSAPCR, RESCVID #### [facility] [address] [place] [address] Coronavirus NL63 (Not COVID-19) Not detected Normal Not Detected [facility] Comment on above: Performed By: #### M RSAPCR, RESCVID #### [facility] [address] [place] [address] Coronavirus OC43 (Not COVID-19) Not detected Normal Not Detected [facility] Comment on above: Performed By: #### M RSAPCR, RESCVID #### [facility] [address] [place] [address] Human Metapneumovirus Not detected Normal Not Detected [facility] Comment on above: Performed By: #### M RSAPCR, RESCVID #### [facility] [address] [place] [address] Influenza A Not detected Normal Not Detected [facility] Comment on above: Performed By: #### M RSAPCR, RESCVID #### [facility] [address] [place] [address] Influenza B Not detected Normal Not Detected [facility] Comment on above: Performed By: #### M RSAPCR, RESCVID #### [facility] [address] [place] [address] Mycoplasma pneumoniae Not detected Normal Not Detected [facility] Comment on above: Performed By: #### M RSAPCR, RESCVID #### [facility] [address] [place] [address] Parainfluenza 1 Not detected Normal Not Detected [facility] Comment on above: Performed By: #### M RSAPCR, RESCVID #### [facility] [address] [place] [address] Parainfluenza 2 Not detected Normal Not Detected [facility] Comment on above: Performed By: #### M RSAPCR, RESCVID #### [facility] [address] [place], [place] [address] Parainfluenza 3 Not detected Normal Not Detected [facility] Comment on above: Performed By: #### M RSAPCR, RESCVID #### [facility] [address] [place] [address] Parainfluenza 4 Not detected Normal Not Detected [facility] Comment on above: Performed By: #### M RSAPCR, RESCVID #### [facility] [address] [place] [address] Respiratory Syncytial Virus Not detected Normal Not Detected [facility] Comment on above: Performed By: #### M RSAPCR, RESCVID #### [facility] [address] [place], [place] [address] Rhinovirus/Enterovirus Not detected Normal Not Detecte d [facility] Comment on above: Performed By: #### M RSAPCR, RESCVID #### [facility] [address] [place], [place] [address] SARS-CoV-2 (COVID-19) RNA DARYA+probe Ql (Unsp spec) Not detected Normal Not Detected [facility] Comment on above: Result Comment: This assay has been validated in the [facility] for use with nasopharyngeal specimens in [facility]. If a non-validated specimen or test collection [...] Performed By: #### M RSAPCR, RESCVID #### [place] [address] XR ABDOMEN APon 02-23-2025 XR ABDOMEN AP [...] 02/23/2025 11:03:02 AM Ordering Provider: THAO Smallwood [facility] .Auto Diffon 02-22-2025 Basophil, Absolute 0.0 10 3/mcL Normal 0.0-0.3 [facility] Comment on above: Performed By: #### M RSAPCR, RESCVID #### [address] [address] Basophils/100 WBC (Bld) 0.4 % Normal 0.0-2.5 [facility] Comment on above: Performed By: #### M RSAPCR, RESCVID #### [address] [address] Eosinophil, Absolute 0.2 10 3/mcL Normal 0.0-0.7 [facility] Comment on above: Performed By: #### M RSAPCR, RESCVID #### [address] [address] Eosinophils/100 WBC (Bld) 1.8 % Normal 0.0-6.0 [facility] Comment on above: Performed By: #### M RSAPCR, RESCVID #### [address] [address] Lymphocyte, Absolute 0.8 10 3/mcL Low 0.9-4.3 [facility] Comment on above: Performed By: #### M RSAPCR, RESCVID #### [address] [address] Lymphocytes/100 WBC (Bld) 6.3 % Low 20.0-40.0 [facility] Comment on above: Performed By: #### M RSAPCR, RESCVID #### [address] [address] Monocyte, Absolute 1.2 10 3/mcL Normal 0.1-1.4 [facility] Comment on above: Performed By: #### M RSAPCR, RESCVID #### [address] [address] Monocytes/100 WBC (Bld) 9.5 % Normal 2.0-13.0 [facility] Comment on above: Performed By: #### M RSAPCR, RESCVID #### [address] [address] Neutrophils/100 WBC (Bld) 82.0 % High 50.0-75.0 [facility] Comment on above: Performed By: #### M RSAPCR, RESCVID #### [address] [address] .GFRon 02-22-2025 Estimated Glomerular Filtration Rate 91 ml/min/1.73sqm Normal [facility] Comment on above: Result Comment: Stages [...] results. Performed By: #### V IDH #### [facility] [address] [place] [address] .MDWon 02-22-2025 Monocyte Distribution Width 19.17 Normal 0.00-20.00 [facility] Comment on above: Result Comment: For ED adult patients suspected of sepsis, MDW<=20.0 does not rule out sepsis or risk of sepsis Performed By: #### M RSAPCR, RESCVID #### [address] [address] .NEUABSon 02-22-2025 Neutrophil, Absolute 10.5 10 3/mcL High 2.3-8.1 [facility] Comment on above: Performed By: #### M RSAPCR, RESCVID #### [address] [address] BMPon 02-22-2025 BUN/Creatinine Ratio 38 ratio High 7-27 [facility] Comment on above: Performed By: #### M RSAPCR, RESCVID #### [address] [address] Calcium [Mass/Vol] 9.0 mg/dL Normal 8.4-10.2 [facility] Comment on above: Performed By: #### M RSAPCR, RESCVID #### [address] [address] Chloride [Moles/Vol] 106 mmol/L Normal 98-107 [facility] Comment on above: Performed By: #### M RSAPCR, RESCVID #### [address] [address] CO2 [Moles/Vol] 28 mmol/L Normal 23-31 [facility] Comment on above: Performed By: #### M RSAPCR, RESCVID #### [address] [address] Creatinine [Mass/Vol] 0.77 mg/dL Normal 0.67-1.17 [facility] Comment on above: Performed By: #### M RSAPCR, RESCVID #### [address] [address] Electrolyte Balance 8.0 mEq/L Normal 4.0-15.0 [facility] Comment on above: Performed By: #### M RSAPCR, RESCVID #### [address] [address] Glucose [Mass/Vol] 128 mg/dL High 83-110 [facility] Comment on above: Performed By: #### M RSAPCR, RESCVID #### [address] [address] Potassium [Moles/Vol] 3.7 mmol/L Normal 3.5-5.1 [facility] Comment on above: Performed By: #### M RSAPCR, RESCVID #### [address] [address] Sodium [Moles/Vol] 142 mmol/L Normal 136-145 [facility] Comment on above: Performed By: #### M RSAPCR, RESCVID #### [address] [address] Urea nitrogen [Mass/Vol] 29 mg/dL High 7-18 [facility] Comment on above: Performed By: #### M RSAPCR, RESCVID #### [address] [address] CBCon 06-24-2025 Erythrocyte distribution width (RBC) [Ratio] 14.1 % Normal 11.5-15.5 [facility] Comment on above: Performed By: #### M RSAPCR, RESCVID #### [address] [address] Hematocrit (Bld) [Volume fraction] 41.7 % Normal 40.0-52.0 [facility] Comment on above: Performed By: #### M RSAPCR, RESCVID #### [address] [address] Hgb 14.1 G/dL Normal 13.0-17.5 [facility] Comment on above: Performed By: #### M RSAPCR, RESCVID #### [address] [address] MCH (RBC) [Entitic mass] 32.0 pg Normal 27.0-33.0 [facility] Comment on above: Performed By: #### M RSAPCR, RESCVID #### [address] [address] MCHC 33.9 G/dL Normal 32.0-36.0 [facility] Comment on above: Performed By: #### M RSAPCR, RESCVID #### [address] [address] MCV (RBC) [Entitic vol] 94.3 fL Normal 81.0-100.0 [facility] Comment on above: Performed By: #### M RSAPCR, RESCVID #### [address] [address] Platelet 240 10 3/mcL Normal 150-450 [facility] Comment on above: Performed By: #### M RSAPCR, RESCVID #### [address] [address] Platelet mean volume (Bld) [Entitic vol] 7.2 fL Normal 6.4-10.5 [facility] Comment on above: Performed By: #### M RSAPCR, RESCVID #### [address] [address] RBC 4.42 10 6/mcL Low 4.50-6.00 [facility] Comment on above: Performed By: #### M RSAPCR, RESCVID #### [facility] [address] [place] [address] WBC 12.8 10 3/mcL High 4.5-10.8 [facility] Comment on above: Performed By: #### M RSAPCR, RESCVID #### [facility] [address] [place] [address] CVFLURVon 02-22-2025 FLU A PCR Negative Normal Negative [facility] Comment on above: Performed By: #### C VFLURV ####[place] [address] [place] [address] FLU B PCR Negative Normal Negative [facility] Comment on above: Performed By: #### C VFLURV ####[place] [address] RSV PCR Negative Normal Negative [facility] Comment on above: Performed By: #### C VFLURV ####[place] [address] SARS-CoV-2 (COVID-19) RNA DARYA+probe Ql (Unsp spec) Negative Normal Negative [facility] Comment on above: Result Comment: Resu [...] results. Performed By: #### C VFLURV ####[place] [address] [place], [place] [address] LABORATORYOrdered By: Fili Sotelo on 02-22-2025 Adenovirus DNA DARYA+non-probe Ql (Nph) Not Detected *NA* (02/22/25 6:51 PM) Invalid Interpretation Code Not Detected AH Auto Viro/Sero SS B. parapertussis [id number] DNA DARYA+non-probe Ql (Nph) Not Detected *NA* [...] his assay has been validated in the [facility] for use with nasopharyngeal specimens in [facility]. If a non-validated specimen or test collection [...] ng/L Male: 0-76 ng/L Testing performed on Emulate using a homogeneous sandwich chemiluminescent immunoassay based on [employer] technology. Urea nitrogen [Mass/Vol] 29 mg/dL High [...] serogroups and species may also cause disease. [facility] Microscopic examination of blood, culture Culture has been received in lab and is no growth to date. Routine cultures are held for 5 days. [facility] Streptococcus Pneumoniae Urine Antig Presumptive negative for pneumococcal pneumonia, suggesting no current or recent pneumococcal infection. Infection due to Strep pneumoniae cannot be ruled out since the antigen present in the sample may be below the detection limit of the test. [facility] Comment on above: This test has not be en evaluated on patients taking antibiotics for greater than 24 hours or on patients who have recently completed an antibiotic regimen. The accuracy of this test has not been proven in young children. PBNPon 02-22-2025 Natriuretic peptide B (Bld) [Mass/Vol] 303 pg/mL Normal 0-450 [facility] Comment on above: Result Comment: NT-p roBNP results of less than 300 pg/mL effectively rules out acute congestive heart failure with 99% negative predictive value. Performed By: #### V IDH #### [address] [address] [facility] High Sensitivity Troponin I 9 ng/L Normal 0-76 [facility] Comment on above: Result Comment: High Sensitive Troponin I Reference Ranges: Female: 0-51 ng/L Male: 0-76 ng/L Testing performed on Emulate using a homogeneous sandwich chemiluminescent immunoassay based on [employer] technology. Performed By: #### M RSAPCR, RESCVID #### [facility] [address] [place] [address] UAon 02-22-2025 Color (U) Yellow Normal [facility] Comment on above: Performed By: #### U AMIC, UA ####[place] [address] [place], [place] [address] Glucose (U) [Mass/Vol] Negative Normal Negative [facility] Comment on above: Performed By: #### U AMIC, UA ####[place] [address] [place], [place] [address] Ketones Ql (U) 15 mg/dL Abnormal Negative [facility] Comment on above: Performed By: #### U AMIC, UA ####[place] [address] [place], [place] [address] UA Appear Clear Normal Clear [facility] Comment on above: Performed By: #### U AMIC, UA ####[place] [id number] [place], [place] [address] UA Bili Moderate Abnormal Negative [facility] Comment on above: Performed By: #### U AMIC, UA ####[place] [address] [place], [place] [address] UA Blood Negative Normal Negative [facility] Comment on above: Performed By: #### U AMIC, UA ####[address] [address] [place], [place] [address] UA Leuk Est Negative Normal Negative [facility] Comment on above: Performed By: #### U AMIC, UA ####[address] [address] [place] [address] UA Nitrite Negative Normal Negative [facility] Comment on above: Performed By: #### U AMIC, UA ####[address] [address] [place] [address] UA pH 6.0 Normal 5.0 - 8.0 [facility] Comment on above: Performed By: #### U AMIC, UA ####[address] [place], [place] [address] UA Protein 30 mg/dL Normal Negative [facility] Comment on above: Performed By: #### U AMIC, UA ####[address] [place], [place] [address] UA Spec Grav 1.025 Normal 1.015-1.025 [facility] Comment on above: Performed By: #### U AMIC, UA ####[address] [place], [place] [address] UA Specimen Type Void Normal [facility] Comment on above: Performed By: #### U AMIC, UA ####[address] [place], [place] [address] UA Urobilinogen 2.0 E.U./dL Abnormal 0.2-1.0 [facility] Comment on above: Performed By: #### U AMIC, UA ####[address] [place], [place] [address] UAMICon 02-22-2025 UA RBC 3-5 Abnormal 0-2 [facility] Comment on above: Performed By: #### U AMIC, UA ####[address] [place], [place] [address] UA Squam Epithelial Negative Normal 0-20 [facility] Comment on above: Performed By: #### U AMIC, UA ####[address] [place], [place] [address] UA WBC 0-2 Normal 0-5 [facility] Comment on above: Performed By: #### U AMIC, UA ####[address] [place], [place] [address] XR CHEST 1 VIEWon 02-22-2025 XR CHEST [...] Interpreted by: Fam Wagner Preliminary Report By: Aarceli Berumen Electronically signed By Fam Wagner Dictated Date: 02/22/2025 7:08:15 PM Prelim Date: 02/22/2025 7:11:47 PM Sign Date: 02/22/2025 7:30:02 PM Ordering Provider: BRYN Smallwood [facility] L/S Spine Min 4 Viewson 10-30 L/S Spine Min 4 Views [facility] Imaging Services [address] [place] [address] L/S Spine Min 4 Views MR#: [id number] Acct: [id number] Name: ALVARONANCY C Rep #: [id number] : 1945 M 79 From: Izaiah Fontanez MD PCP: LOIS Resendiz Status: DEP AMB Study: L/S Spine Min 4 Views Date of Exam: 11/09/24 Exam# [id number] Ordering Dr: Brody Malhotra MD PROCEDURE: L/S SPINE MIN 4 VIEWS ([facility]), 11/09/2024 REASON FOR EXAM: HX OF FX, [...] and additional description as above. Reading Location: [facility] CC: LOIS Brand; Dr. Brody Malhotra MD Vp Training: Signed Normal [facility] Thoracic Spine Min 4 Viewson 11-09-2024 Thoracic Spine Min 4 Views [facility] Imaging Services [address] [place] [address] Thoracic Spine Min 4 Views MR#: [id number] Acct: [id number] Name: NANCY SY Rep #: [id number] : 1945 M 79 From: Izaiah Fontanez MD PCP: LOIS Resendiz Status: DEP AMB Study: Thoracic Spine Min 4 Views Date of Exam: 11/09 Exam# [id number] Ordering Dr: Brody Malhotra MD PROCEDURE: THORACIC [...] at additional description as above. Reading Location: [id number] CC: MANAGER PRIVACY-C Katherine Brand; Dr. 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 Man ufacturer 60 mg subcut Left arm 1 mL [id number] 02/28/27 01268-018-46 [facility] Assessment and Plan Assessment and Plan [...] Cosigner Signature: Date (if applicable) CC: Normal [facility] TFTESTon 10-14-2024 Free Testost Direct 1.8 pg/mL Low 6.6-18.1 [facility] Comment on above: Result Comment: Perf ormed At: [facility] [address] [id number] Dominick Rae MD Ph:[phone] Performed At: [facility] [place] [address] [place] [id number] Ernesto Vigil PhD Ph:[phone] Performed By: #### 1 [address], VIDH ####[place] [address]#### PTH ####[place] [address] Testosterone Lvl 489 ng/dL Normal 264-916 [facility] Comment on above: Result Comment: Adul t male reference interval is based on a population of healthy nonobese males (BMI <30) between 19 and 39 years old. Yamilex et.al. JCEM 2017,102;4951-1774. PMID: [id number]. Performed By: #### 1 [address], VIDH ####[place] [address]#### PTH ####[place] [address] .Auto Diffon 10-08-2024 Basophil, Absolute 0.1 10 3/mcL Normal 0.0-0.2 [facility] Comment on above: Performed By: #### A SHERRELL, ADIFF, GFR, LIPID, CBC, PSA, CMP ####[address] [address] Basophils/100 WBC (Bld) 0.8 % Normal 0.0-2.5 [facility] Comment on above: Performed By: #### A SHERRELL, ADIFF, GFR, LIPID, CBC, PSA, CMP ####[address] [address] Eosinophil, Absolute 0.5 10 3/mcL Normal 0.0-0.7 [facility] Comment on above: Performed By: #### A SHERRELL, ADIFF, GFR, LIPID, CBC, PSA, CMP ####[address] [address] Eosinophils/100 WBC (Bld) 7.6 % High 0.0-7.0 [facility] Comment on above: Performed By: #### A SHERRELL, ADIFF, GFR, LIPID, CBC, PSA, CMP ####[address] [address] Lymphocyte, Absolute 1.1 10 3/mcL Normal 0.9-4.3 [facility] Comment on above: Performed By: #### A SHERRELL, ADIFF, GFR, LIPID, CBC, PSA, CMP ####[address] [address] Lymphocytes/100 WBC (Bld) 15.7 % Low 20.0-40.0 [facility] Comment on above: Performed By: #### A SHERRELL, ADIFF, GFR, LIPID, CBC, PSA, CMP ####[address] [address] Monocyte, Absolute 0.8 10 3/mcL Normal 0.1-1.4 [facility] Comment on above: Performed By: #### A SHERRELL, ADIFF, GFR, LIPID, CBC, PSA, CMP ####[address] [address] Monocytes/100 WBC (Bld) 11.4 % Normal 2.0-13.0 [facility] Comment on above: Performed By: #### A SHERRELL, ADIFF, GFR, LIPID, CBC, PSA, CMP ####[address] [address] Neutrophils/100 WBC (Bld) 64.5 % Normal 50.0-75.0 [facility] Comment on above: Performed By: #### A SHERRELL, ADIFF, GFR, LIPID, CBC, PSA, CMP ####[address] [address] .GFRon 10-08-2024 Estimated Glomerular Filtration Rate 87 ml/min/1.73sqm Normal [facility] Comment on above: Result Comment: Stages [...] SHERRELL, ADIFF, GFR, LIPID, CBC, PSA, CMP ####[place] [address] [place] [id number] .NEUABSon 10-08-2024 Neutrophil, Absolute 4.5 10 3/mcL Normal 2.3-8.1 [facility] Comment on above: Performed By: #### A SHERRELL, ADIFF, GFR, LIPID, CBC, PSA, CMP ####[place] [id number] CBCon 10-08-2024 Erythrocyte distribution width (RBC) [Ratio] 13.7 % Normal 11.5-15.5 [facility] Comment on above: Performed By: #### A SHERRELL, ADIFF, GFR, LIPID, CBC, PSA, CMP ####[place] [address] [place] [address] Hematocrit (Bld) [Volume fraction] 39.2 % Low 40.0-52.0 [facility] Comment on above: Performed By: #### A SHERRELL, ADIFF, GFR, LIPID, CBC, PSA, CMP ####[address] [address] Hgb 13.6 G/dL Normal 13.0-17.5 [facility] Comment on above: Performed By: #### A SHERRELL, ADIFF, GFR, LIPID, CBC, PSA, CMP ####[place] [address] [place], [place] [address] MCH (RBC) [Entitic mass] 32.2 pg Normal 27.0-33.0 [facility] Comment on above: Performed By: #### A SHERRELL, ADIFF, GFR, LIPID, CBC, PSA, CMP ####[address] [place], [place] [address] MCHC 34.7 G/dL Normal 32.0-36.0 [facility] Comment on above: Performed By: #### A SHERRELL, ADIFF, GFR, LIPID, CBC, PSA, CMP ####[place] [address] [place], [place] [address] MCV (RBC) [Entitic vol] 92.7 fL Normal 81.0-100.0 [facility] Comment on above: Performed By: #### A SHERRELL, ADIFF, GFR, LIPID, CBC, PSA, CMP ####[address] [place], [place] [address] Platelet 271 10 3/mcL Normal 150-450 [facility] Comment on above: Performed By: #### A SHERRELL, ADIFF, GFR, LIPID, CBC, PSA, CMP ####[address] [address] Platelet mean volume (Bld) [Entitic vol] 7.2 fL Normal 6.4-10.5 [facility] Comment on above: Performed By: #### A SHERRELL, ADIFF, GFR, LIPID, CBC, PSA, CMP ####[place] [address] [place], [place] [address] RBC 4.23 10 6/mcL Low 4.50-6.00 [facility] Comment on above: Performed By: #### A SHERRELL, ADIFF, GFR, LIPID, CBC, PSA, CMP ####[place] [address] [place], [place] [address] WBC 7.0 10 3/mcL Normal 4.5-10.8 [facility] Comment on above: Performed By: #### A SHERRELL, ADIFF, GFR, LIPID, CBC, PSA, CMP ####[address] [place], [place] [address] CMPon 10-08-2024 Albumin Level 3.8 G/dL Normal 3.4-4.8 [facility] Comment on above: Performed By: #### A SHERRELL, ADIFF, GFR, LIPID, CBC, PSA, CMP ####[address] [address] Albumin/Globulin [Mass ratio] 1.3 {ratio} Normal 1.1-2.5 [facility] Comment on above: Performed By: #### A SHERRELL, ADIFF, GFR, LIPID, CBC, PSA, CMP ####[place] [id number] ALP [Catalytic activity/Vol] 124 U/L Normal 40-135 [facility] Comment on above: Performed By: #### A SHERRELL, ADIFF, GFR, LIPID, CBC, PSA, CMP ####[place] [id number] ALT [Catalytic activity/Vol] 15 U/L Low 16-63 [facility] Comment on above: Performed By: #### A SHERRELL, ADIFF, GFR, LIPID, CBC, PSA, CMP ####[place] [address] AST [Catalytic activity/Vol] 15 U/L Normal 10-40 [facility] Comment on above: Performed By: #### A SHERRELL, ADIFF, GFR, LIPID, CBC, PSA, CMP ####[address] [address] Bili Total 0.4 mg/dL Normal 0.2-1.0 [facility] Comment on above: Result Comment: Use of this assay is not recommended for patients undergoing treatment with eltrombopag due to the potential for falsely elevated results. Performed By: #### A SHERRELL, ADIFF, GFR, LIPID, CBC, PSA, CMP ####[place] [id number] BUN/Creatinine Ratio 24 ratio Normal 7-27 [facility] Comment on above: Performed By: #### A SHERRELL, ADIFF, GFR, LIPID, CBC, PSA, CMP ####[place] [phone] Calcium [Mass/Vol] 9.2 mg/dL Normal 8.4-10.2 [facility] Comment on above: Performed By: #### A SHERRELL, ADIFF, GFR, LIPID, CBC, PSA, CMP ####[address] [address] Chloride [Moles/Vol] 106 mmol/L Normal 98-107 [facility] Comment on above: Performed By: #### A SHERRELL, ADIFF, GFR, LIPID, CBC, PSA, CMP ####[place] [id number] CO2 [Moles/Vol] 32 mmol/L High 23-31 [facility] Comment on above: Performed By: #### A SHERRELL, ADIFF, GFR, LIPID, CBC, PSA, CMP ####[place] [address] Creatinine [Mass/Vol] 0.90 mg/dL Normal 0.70-1.30 [facility] Comment on above: Result Comment: Test ing performed on Powered Outcomes Dimension EXL analyzer using a modified kinetic Mars technique. Performed By: #### A SHERRELL, ADIFF, GFR, LIPID, CBC, PSA, CMP ####[place] [address] Electrolyte Balance 5.0 mEq/L Normal 4.0-15.0 [facility] Comment on above: Performed By: #### A SHERRELL, ADIFF, GFR, LIPID, CBC, PSA, CMP ####[place] [address] Globulin 3.0 G/dL Normal 1.5-3.8 [facility] Comment on above: Performed By: #### A SHERRELL, ADIFF, GFR, LIPID, CBC, PSA, CMP ####[place] [address] Glucose [Mass/Vol] 108 mg/dL Normal 83-110 [facility] Comment on above: Performed By: #### A SHERRELL, ADIFF, GFR, LIPID, CBC, PSA, CMP ####[address] [place], [place] [address] Potassium [Moles/Vol] 3.9 mmol/L Normal 3.5-5.1 [facility] Comment on above: Performed By: #### A SHERRELL, ADIFF, GFR, LIPID, CBC, PSA, CMP ####[address] [place], [place] [address] Sodium [Moles/Vol] 143 mmol/L Normal 136-145 [facility] Comment on above: Performed By: #### A SHERRELL, ADIFF, GFR, LIPID, CBC, PSA, CMP ####[address] [place], [place] [address] Total Protein 6.8 G/dL Normal 6.4-8.2 [facility] Comment on above: Performed By: #### A SHERRELL, ADIFF, GFR, LIPID, CBC, PSA, CMP ####[address] [place], [place] [address] Urea nitrogen [Mass/Vol] 22 mg/dL High 7-18 [facility] Comment on above: Performed By: #### A SHERRELL, ADIFF, GFR, LIPID, CBC, PSA, CMP ####[facility] [place], [place] [address] LABORATORYOrdered By: SYSTEM SYSTEM on 10-08-2024 25-hydroxyvitamin [...] 10-08-2024 Cholesterol [Mass/Vol] 153 mg/dL Normal 0-200 [facility] Comment on above: Result Comment: Chol esterol Reference Interval: Less than 200 Desirable 200-239 Borderline high risk 240 and above High risk Performed By: #### A SHERRELL, ADIFF, GFR, LIPID, CBC, PSA, CMP ####[facility] [place], [place] [address] Cholesterol in HDL [Mass/Vol] 46 mg/dL Normal 40-60 [facility] Comment on above: Performed By: #### A SHERRELL, ADIFF, GFR, LIPID, CBC, PSA, CMP ####[facility] [place], [place] [address] Cholesterol in LDL [Mass/Vol] 99 mg/dL Normal 0-130 [facility] Comment on above: Performed By: #### A SHERRELL, ADIFF, GFR, LIPID, CBC, PSA, CMP ####[address] [place], [place] [address] Triglyceride [Mass/Vol] 42 mg/dL Normal 0-150 [facility] Comment on above: Result Comment: Trig lyceride Reference Interval: Less than 150 Normal 150-199 Borderline high risk 200-499 High risk 500 or higher Very high risk Performed By: #### A SHERRELL, ADIFF, GFR, LIPID, CBC, PSA, CMP ####[address] [place], [place] [address] PSAon 10-08-2024 Prostate Specific Antigen 0.90 ng/mL Normal 0.00-4.00 [facility] Comment on above: Performed By: #### A SHERRELL, ADIFF, GFR, LIPID, CBC, PSA, CMP ####[address] [place], [place] [address] PTHon 10-08-2024 PTH, Intact 45.9 pg/mL Normal 18.5-88.0 [facility] Comment on above: Performed By: #### 1 [address], VIDH ####[address] [address]#### PTH ####[address] [address] VIDHon 10-08-2024 Vit. D 25-Hydroxy 68.5 ng/mL Normal [facility] Comment on above: Result Comment: Inte rpretive Values Based on Total 25(OH) Vitamin D: Deficient <20 ng/mL Insufficient 20 - <30 ng/mL Sufficient 30-100 ng/mL Performed By: #### 1 [address], VIDH ####[place] [address] [place], [place] [address]#### PTH ####[address] [address] Endocrinology Visit Reporton 09-23-2024 Endocrinology Visit Report [facility] [address] [place] [address]. [address] [place] [address] OFFICE VISIT Date of Service: 09/23/24 MR#: [id number] Acct: [id number] Name: NANCY SY #: [id number] : 1945 Provider: Kathy Young Age/Sex: 79/M Location: [facility] Status: Signed Intake Vital Signs 07/09/23 14:26 [...] you fallen in the past year?: [facility] Pancreatitis Osteoporosis Osteopenia Kidney stones Gallstones Bone fracture Back problem Arthritis Allergies Hemorrhoids Hypertension Surgical History Hx of cholecystectomy Family History Father Alcoholism Brother Depression Suicide attempt Grandmother Parkinson disease Sister Osteoporosis Social History (Updated 09/23/24 @ 16:[address] Amber Greenwood MD) household members: spouse HPI HPI NANCY SY, is a 79 M who presents [...] rate Rhythm (more content not included)... Normal [facility] CT HEAD OR BRAIN W/O CONTRAS [facility] 08-18-2024 CT HEAD OR BRAIN W/O CONTRAST [...] 08/18/2024 3:16:57 PM Ordering Provider: SIERRA Smallwood [facility] XR ELBOW MINIMUM 3 VIEWS [facility] 08-18-2024 XR ELBOW MINIMUM 3 VIEWS LEFT [...] Sign Date: 08/18/2024 3:28:37 PM Ordering Provider: [facility] XR RIBS 2 VIEWS LEFT/PA CHES T(AO)on [...] Date: 08/18/2024 3:31:12 PM [facility]ing [facility] No Panel Informationon 08-05 Culture Urine 10,000 - 50,000 cfu/ml Mixed growth consistent with normal urogenital yobany. [facility] LABORATORYOrdered By: SYSTEM SYSTEM on 08-03-2024 25-hydroxyvitamin D3 [Mass/Vol] 44.2 ng/mL Invalid Interpretation Code AO ADM SS Comment on above: Interpretive Data: I nterpretive Values Based on Total 25(OH) Vitamin D: Deficient <20 ng/mL Insufficient 20 - <30 ng/mL Sufficient 30-100 ng/mL [facility] 08-03-2024 Vit. D 25-Hydroxy 44.2 ng/mL Normal [facility] Comment on above: Result Comment: Inte rpretive Values Based on Total 25(OH) Vitamin D: Deficient <20 ng/mL Insufficient 20 - <30 ng/mL Sufficient 30-100 ng/mL Performed By: #### [facility] #### [facility] [address] [place], [place] [address] BD BONE DENSITY DEXA AXIAL S [facility] 06-11-2024 BD BONE DENSITY DEXA AXIAL SKELETON [...] Date: 06/11/2024 3:10:47 PM Ordering Provider: KATHERINE Smallwood [facility] .Auto Diffon 06-03-2024 Basophil, Absolute 0.1 10 3/mcL Normal 0.0-0.2 [facility] Comment on above: Performed By: #### A SHERRELL, ADIFF, GFR, CBC, CMP, VIDH ####[place] [address]#### B12 ####[address] [address] Basophils/100 WBC (Bld) 0.5 % Normal 0.0-2.5 [facility] Comment on above: Performed By: #### A SHERRELL, ADIFF, GFR, CBC, CMP, VIDH ####[place] [address]#### B12 ####[address] [address] Eosinophil, Absolute 0.2 10 3/mcL Normal 0.0-0.7 [facility] Comment on above: Performed By: #### A SHERRELL, ADIFF, GFR, CBC, CMP, VIDH ####[place] [address]#### B12 ####[address] [address] Eosinophils/100 WBC (Bld) 2.4 % Normal 0.0-7.0 [facility] Comment on above: Performed By: #### A SHERRELL, ADIFF, GFR, CBC, CMP, VIDH ####[place] [address]#### B12 ####[address] [address] Lymphocyte, Absolute 0.9 10 3/mcL Normal 0.9-4.3 [facility] Comment on above: Performed By: #### A SHERRELL, ADIFF, GFR, CBC, CMP, VIDH ####[place] [address]#### B12 ####[address] [address] Lymphocytes/100 WBC (Bld) 8.6 % Low 20.0-40.0 [facility] Comment on above: Performed By: #### A SHERRELL, ADIFF, GFR, CBC, CMP, VIDH ####[place] [address]#### B12 ####[address] [address] Monocyte, Absolute 0.9 10 3/mcL Normal 0.1-1.4 [facility] Comment on above: Performed By: #### A SHERRELL, ADIFF, GFR, CBC, CMP, VIDH ####[place] [address]#### B12 ####[address] [address] Monocytes/100 WBC (Bld) 8.7 % Normal 2.0-13.0 [facility] Comment on above: Performed By: #### A SHERRELL, ADIFF, GFR, CBC, CMP, VIDH ####[place] [address]#### B12 ####[address] [address] Neutrophils/100 WBC (Bld) 79.8 % High 50.0-75.0 [facility] Comment on above: Performed By: #### A SHERRELL, ADIFF, GFR, CBC, CMP, VIDH ####[place] [address]#### B12 ####[address] [address] .GFRon 06-03-2024 GFR Non- 95 ml/min/1.73sqm Normal [facility] Comment on above: Result Comment: GFR [...] A SHERRELL, ADIFF, GFR, CBC, CMP, VIDH ####[address] [address]#### B12 ####[address] [address] GFR 115 ml/min/1.73sqm [facility] Comment on above: Result Comment: GFR Population [...] A SHERRELL, ADIFF, GFR, CBC, CMP, VIDH ####[address] [address]#### B12 ####[address] [address] .NEUABSon 06-03-2024 Neutrophil, Absolute 8.4 10 3/mcL High 2.3-8.1 [facility] Comment on above: Performed By: #### A SHERRELL, ADIFF, GFR, CBC, CMP, VIDH ####[place] [address]#### B12 ####[address] [address] B12on 06-03-2024 Cobalamin (Vitamin B12) [Mass/Vol] 633 pg/mL Normal 211-911 [facility] Comment on above: Performed By: #### A SHERRELL, ADIFF, GFR, CBC, CMP, VIDH ####[place] [address]#### B12 ####[place] [address] CBCon 06-03-2024 Erythrocyte distribution width (RBC) [Ratio] 13.9 % Normal 11.5-15.5 [facility] Comment on above: Performed By: #### A SHERRELL, ADIFF, GFR, CBC, CMP, VIDH ####[place] [address]#### B12 ####[place] [address] Hematocrit (Bld) [Volume fraction] 39.9 % Low 40.0-52.0 [facility] Comment on above: Performed By: #### A SHERRELL, ADIFF, GFR, CBC, CMP, VIDH ####[place] [address]#### B12 ####[place] [address] Hgb 13.8 G/dL Normal 13.0-17.5 [facility] Comment on above: Performed By: #### A SHERRELL, ADIFF, GFR, CBC, CMP, VIDH ####[place] [address]#### B12 ####[place] [address] MCH (RBC) [Entitic mass] 32.3 pg Normal 27.0-33.0 [facility] Comment on above: Performed By: #### A SHERRELL, ADIFF, GFR, CBC, CMP, VIDH ####[place] [address]#### B12 ####[place] [address] MCHC 34.5 G/dL Normal 32.0-36.0 [facility] Comment on above: Performed By: #### A SHERRELL, ADIFF, GFR, CBC, CMP, VIDH ####[place] [address]#### B12 ####[place] [address] MCV (RBC) [Entitic vol] 93.6 fL Normal 81.0-100.0 [facility] Comment on above: Performed By: #### A SHERRELL, ADIFF, GFR, CBC, CMP, VIDH ####[place] [address]#### B12 ####[place] [address] Platelet 260 10 3/mcL Normal 150-450 [facility] Comment on above: Performed By: #### A SHERRELL, ADIFF, GFR, CBC, CMP, VIDH ####[place] [address]#### B12 ####[place] [address] Platelet mean volume (Bld) [Entitic vol] 7.4 fL Normal 6.4-10.5 [facility] Comment on above: Performed By: #### A SHERRELL, ADIFF, GFR, CBC, CMP, VIDH ####[place] [address]#### B12 ####[place] [address] RBC 4.27 10 6/mcL Low 4.50-6.00 [facility] Comment on above: Performed By: #### A SHERRELL, ADIFF, GFR, CBC, CMP, VIDH ####[place] [address]#### B12 ####[place] [address] WBC 10.5 10 3/mcL Normal 4.5-10.8 [facility] Comment on above: Performed By: #### A SHERRELL, ADIFF, GFR, CBC, CMP, VIDH ####[place] [address]#### B12 ####[place] [address] CMPon 06-03-2024 Albumin Level 3.8 G/dL Normal 3.4-4.8 [facility] Comment on above: Performed By: #### A SHERRELL, ADIFF, GFR, CBC, CMP, VIDH ####[place] [address]#### B12 ####[place] [address] Albumin/Globulin [Mass ratio] 1.5 {ratio} Normal 1.1-2.5 [facility] Comment on above: Performed By: #### A SHERRELL, ADIFF, GFR, CBC, CMP, VIDH ####[place] [address]#### B12 ####[place] [address] ALP [Catalytic activity/Vol] 148 U/L High 40-135 [facility] Comment on above: Performed By: #### A SHERRELL, ADIFF, GFR, CBC, CMP, VIDH ####[place] [address]#### B12 ####[place] [address] ALT [Catalytic activity/Vol] 23 U/L Normal 16-63 [facility] Comment on above: Performed By: #### A SHERRELL, ADIFF, GFR, CBC, CMP, VIDH ####[place] [address]#### B12 ####[place] [id number] AST [Catalytic activity/Vol] 15 U/L Normal 10-40 [facility] Comment on above: Performed By: #### A SHERRELL, ADIFF, GFR, CBC, CMP, VIDH ####[place] [address]#### B12 ####[address] [address] Bili Total 0.4 mg/dL Normal 0.2-1.0 [facility] Comment on above: Result Comment: Use of this assay is not recommended for patients undergoing treatment with eltrombopag due to the potential for falsely elevated results. Performed By: #### A SHERRELL, ADIFF, GFR, CBC, CMP, VIDH ####[place] [address]#### B12 ####[place] [address] BUN/Creatinine Ratio 18 ratio Normal 7-27 [facility] Comment on above: Performed By: #### A SHERRELL, ADIFF, GFR, CBC, CMP, VIDH ####[place] [address]#### B12 ####[address] [address] Calcium [Mass/Vol] 8.9 mg/dL Normal 8.4-10.2 [facility] Comment on above: Performed By: #### A SHERERLL, ADIFF, GFR, CBC, CMP, VIDH ####[place] [address]#### B12 ####[place] [address] Chloride [Moles/Vol] 104 mmol/L Normal 98-107 [facility] Comment on above: Performed By: #### A SHERRELL, ADIFF, GFR, CBC, CMP, VIDH ####[place] [address]#### B12 ####[address] [address] CO2 [Moles/Vol] 30 mmol/L Normal 23-31 [facility] Comment on above: Performed By: #### A SHERRELL, ADIFF, GFR, CBC, CMP, VIDH ####[place] [address]#### B12 ####[address] [address] Creatinine [Mass/Vol] 0.79 mg/dL Normal 0.70-1.30 [facility] Comment on above: Result Comment: Test ing performed on Siemens Dimension EXL analyzer using a modified kinetic Mars technique. Performed By: #### A SHERRELL, ADIFF, GFR, CBC, CMP, VIDH ####[place] [address]#### B12 ####[place] [address] Electrolyte Balance 9.0 mEq/L Normal 4.0-15.0 [facility] Comment on above: Performed By: #### A SHERRELL, ADIFF, GFR, CBC, CMP, VIDH ####[place] [address]#### B12 ####[place] [address] Globulin 2.5 G/dL Normal [facility] Comment on above: Performed By: #### A SHERRELL, ADIFF, GFR, CBC, CMP, VIDH ####[place] [address]#### B12 ####[address] [address] Glucose [Mass/Vol] 106 mg/dL Normal 83-110 [facility] Comment on above: Performed By: #### A SHERRELL, ADIFF, GFR, CBC, CMP, VIDH ####[place] [address]#### B12 ####[address] [address] Potassium [Moles/Vol] 3.5 mmol/L Normal 3.5-5.1 [facility] Comment on above: Performed By: #### A SHERRELL, ADIFF, GFR, CBC, CMP, VIDH ####[place] [address]#### B12 ####[place] [address] Sodium [Moles/Vol] 143 mmol/L Normal 136-145 [facility] Comment on above: Performed By: #### A SHERRELL, ADIFF, GFR, CBC, CMP, VIDH ####[place] [address]#### B12 ####[place] [address] Total Protein 6.3 G/dL Low 6.4-8.2 [facility] Comment on above: Performed By: #### A SHERRELL, ADIFF, GFR, CBC, CMP, VIDH ####[place] [address]#### B12 ####[place] [address] Urea nitrogen [Mass/Vol] 14 mg/dL Normal 7-18 [facility] Comment on above: Performed By: #### A SHERRELL, ADIFF, GFR, CBC, CMP, VIDH ####[place] [address]#### B12 ####[place] [address] LABORATORYOrdered By: SYSTEM SYSTEM on 06-03-2024 25-hydroxyvitamin [...] 06-03-2024 Vit. D 25-Hydroxy 13.5 ng/mL Normal [facility] Comment on above: Result Comment: Inte rpretive Values Based on Total 25(OH) Vitamin D: Deficient <20 ng/mL Insufficient 20 - <30 ng/mL Sufficient 30-100 ng/mL Performed By: #### A SHERRELL, ADIFF, GFR, CBC, CMP, VIDH ####[address] [address]#### B12 ####[address] [address] .Auto Diffon 05-19-2024 Basophil, Absolute 0.0 10 3/mcL Normal 0.0-0.2 [facility] Comment on above: Performed By: #### V IDH #### [address] [address] Basophils/100 WBC (Bld) 0.5 % Normal 0.0-2.5 [facility] Comment on above: Performed By: #### V IDH #### [address] [address] Eosinophil, Absolute 0.2 10 3/mcL Normal 0.0-0.4 [facility] Comment on above: Performed By: #### V IDH #### [address] [address] Eosinophils/100 WBC (Bld) 3.6 % Normal 0.0-7.0 [facility] Comment on above: Performed By: #### V IDH #### [address] [address] Lymphocyte, Absolute 1.0 10 3/mcL Normal 0.8-3.9 [facility] Comment on above: Performed By: #### V IDH #### [address] [address] Lymphocytes/100 WBC (Bld) 15.6 % Normal 10.0-50.0 [facility] Comment on above: Performed By: #### V IDH #### [address] [address] Monocyte, Absolute 0.6 10 3/mcL Normal 0.2-1.0 [facility] Comment on above: Performed By: #### V IDH #### [address] [address] Monocytes/100 WBC (Bld) 8.6 % Normal 1.7-13.0 [facility] Comment on above: Performed By: #### V IDH #### [address] [address] Neutrophils/100 WBC (Bld) 71.7 % Normal 37.0-80.0 [facility] Comment on above: Performed By: #### V IDH #### [address] [address] .GFRon 05-19-2024 GFR Non- 92 ml/min/1.73sqm Normal [facility] Comment on above: Result Comment: GFR [...] meters Performed By: #### V IDH #### [address] [address] GFR 112 ml/min/1.73sqm Normal [facility] Comment on above: Result Comment: GFR [...] meters Performed By: #### V IDH #### [address] [address] .NEUABSon 05-19-2024 Neutrophil, Absolute 4.8 10 3/mcL Normal 2.9-6.2 [facility] Comment on above: Performed By: #### V IDH #### [address] [address] CBCon 05-19-2024 Erythrocyte distribution width (RBC) [Ratio] 13.5 % Normal 11.5-14.5 [facility] Comment on above: Performed By: #### V IDH #### [place] [address] Hematocrit (Bld) [Volume fraction] 39.3 % Low 42.0-52.0 [facility] Comment on above: Performed By: #### V IDH #### [place] [address] Hgb 13.4 G/dL Low 14.0-18.0 [facility] Comment on above: Performed By: #### V IDH #### [place] [address] MCH (RBC) [Entitic mass] 32.1 pg High 27.0-31.2 [facility] Comment on above: Performed By: #### V IDH #### [place] [address] MCHC 34.1 G/dL Normal 31.8-35.4 [facility] Comment on above: Performed By: #### V IDH #### [place] [address] MCV (RBC) [Entitic vol] 94.0 fL Normal 80.0-94.0 [facility] Comment on above: Performed By: #### V IDH #### [place] [address] Platelet 186 10 3/mcL Normal 130-400 [facility] Comment on above: Performed By: #### V IDH #### [place] [address] Platelet mean volume (Bld) [Entitic vol] 7.3 fL Low 7.4-10.4 [facility] Comment on above: Performed By: #### V IDH #### [place] [address] RBC 4.18 10 6/mcL Normal 4.04-6.13 [facility] Comment on above: Performed By: #### V IDH #### [address] [address] WBC 6.6 10 3/mcL Normal 4.6-10.8 [facility] Comment on above: Performed By: #### V IDH #### [address] [address] CMPon 05-19-2024 Albumin Level 3.5 G/dL Normal 3.4-4.8 [facility] Comment on above: Performed By: #### V IDH #### [place] [id number] Albumin/Globulin [Mass ratio] 1.3 {ratio} Normal 1.1-2.5 [facility] Comment on above: Performed By: #### V IDH #### [place] [id number] ALP [Catalytic activity/Vol] 186 U/L High 40-135 [facility] Comment on above: Performed By: #### V IDH #### [place] [id number] ALT [Catalytic activity/Vol] 26 U/L Normal 16-63 [facility] Comment on above: Performed By: #### V IDH #### [place] [phone] AST [Catalytic activity/Vol] 14 U/L Normal 10-40 [facility] Comment on above: Performed By: #### V IDH #### [address] [address] Bili Total 0.5 mg/dL Normal 0.2-1.0 [facility] Comment on above: Result Comment: Use of this assay is not recommended for patients undergoing treatment with eltrombopag due to the potential for falsely elevated results. Performed By: #### V IDH #### [place] [id number] BUN/Creatinine Ratio 21 ratio Normal 7-27 [facility] Comment on above: Performed By: #### V IDH #### [address] [address] Calcium [Mass/Vol] 9.0 mg/dL Normal 8.4-10.2 [facility] Comment on above: Performed By: #### V IDH #### [address] [address] Chloride [Moles/Vol] 108 mmol/L High 98-107 [facility] Comment on above: Performed By: #### V IDH #### [address] [address] CO2 [Moles/Vol] 29 mmol/L Normal 23-31 [facility] Comment on above: Performed By: #### V IDH #### [address] [address] Creatinine [Mass/Vol] 0.81 mg/dL Normal 0.70-1.30 [facility] Comment on above: Result Comment: Test ing performed on Siemens Dimension EXL analyzer using a modified kinetic Mars technique. Performed By: #### V IDH #### [address] [address] Electrolyte Balance 7.0 mEq/L Normal 4.0-15.0 [facility] Comment on above: Performed By: #### V IDH #### [address] [address] Globulin 2.6 G/dL Normal [facility] Comment on above: Performed By: #### V IDH #### [address] [address] Glucose [Mass/Vol] 112 mg/dL High 83-110 [facility] Comment on above: Performed By: #### V IDH #### [address] [address] Potassium [Moles/Vol] 4.1 mmol/L Normal 3.5-5.1 [facility] Comment on above: Performed By: #### V IDH #### [address] [address] Sodium [Moles/Vol] 144 mmol/L Normal 136-145 [facility] Comment on above: Performed By: #### V IDH #### [address] [address] Total Protein 6.1 G/dL Low 6.4-8.2 [facility] Comment on above: Performed By: #### V IDH #### [place] [id number] [place], [place] [address] Urea nitrogen [Mass/Vol] 17 mg/dL Normal 7-18 [facility] Comment on above: Performed By: #### V IDH #### [address] [address] LABORATORYOrdered By: SYSTEM SYSTEM on 05-19-2024 Albumin [...] 05-01-2024 Potassium [Moles/Vol] 3.4 mmol/L Low 3.5-5.1 [facility] ([place]) Comment on above: Performed By: #### C MANNIE, ABDIEL, ANEU, BMP, GFR #### [place] [address] LABORATORYOrdered By: SYSTEM SYSTEM on 05-01-2024 Magnesium [Mass/Vol] 2.1 mg/dL Normal 1.8 - 2 .4 mg/dL AO ADM SS Potassium [Moles/Vol] 3.4 mmol/L Low 3.5 - 5.1 mmol/L AO ADM SS MGon 05-01-2024 Magnesium [Mass/Vol] 2.1 mg/dL Normal 1.8-2.4 [facility] ([place]) Comment on above: Performed By: #### C MANNIE, ABDIEL, ANEU, BMP, GFR #### [place] [address] Brandt 04-30-2024 Potassium [Moles/Vol] 3.2 mmol/L Low 3.5-5.1 [facility] ([place]) Comment on above: Performed By: #### C BC, ADIFF, ANEU, BMP, GFR #### [place] [address] LABORATORYOrdered By: SYSTEM SYSTEM on 04-30-2024 Potassium [Moles/Vol] 3.2 mmol/L Low 3.5 - 5.1 mmol/L AO ADM SS [place] 04-28-2024 Potassium [Moles/Vol] 3.1 mmol/L Low 3.5-5.1 [facility] ([place]) Comment on above: Performed By: #### C BC, ADROSIE, ANEU, BMP, GFR #### [address] [address] LABORATORYOrdered By: SYSTEM SYSTEM on 04-28-2024 Potassium [Moles/Vol] 3.1 mmol/L Low 3.5 - 5.1 mmol/L AO ADM SS .Auto Diffon 04-27-2024 Basophil, Absolute 0.1 10 3/mcL Normal 0.0-0.2 [facility] ([place]) Comment on above: Performed By: #### C BC, ADIFF, ANEU, BMP, GFR #### [address] [address] Basophils/100 WBC (Bld) 0.4 % Normal 0.0-2.5 [facility] ([place]) Comment on above: Performed By: #### C BC, ADIFF, ANEU, BMP, GFR #### [address] [address] Eosinophil, Absolute 0.3 10 3/mcL Normal 0.0-0.4 [facility] ([place]) Comment on above: Performed By: #### C BC, ADIFF, ANEU, BMP, GFR #### [address] [address] Eosinophils/100 WBC (Bld) 2.4 % Normal 0.0-7.0 [facility] ([place]) Comment on above: Performed By: #### C BC, ADIFF, ANEU, BMP, GFR #### [address] [address] Lymphocyte, Absolute 1.0 10 3/mcL Normal 0.8-3.9 [facility] ([place]) Comment on above: Performed By: #### C BC, ADIFF, ANEU, BMP, GFR #### [address] [address] Lymphocytes/100 WBC (Bld) 8.8 % Low 10.0-50.0 [facility] ([place]) Comment on above: Performed By: #### C BC, ADIFF, ANEU, BMP, GFR #### [address] [address] Monocyte, Absolute 1.0 10 3/mcL Normal 0.2-1.0 [facility] ([place]) Comment on above: Performed By: #### C BC, ADIFF, ANEU, BMP, GFR #### [address] [address] Monocytes/100 WBC (Bld) 8.9 % Normal 1.7-13.0 [facility] ([place]) Comment on above: Performed By: #### C BC, ADIFF, ANEU, BMP, GFR #### [address] [address] Neutrophils/100 WBC (Bld) 79.5 % Normal 37.0-80.0 [facility] ([place]) Comment on above: Performed By: #### C BC, ADIFF, ANEU, BMP, GFR #### [address] [address] .GFRon 04-27-2024 GFR 122 ml/min/1.73sqm Normal [facility] ([place]) Comment on above: Result Comment: GFR Population [...] C BC, ADIFF, ANEU, BMP, GFR #### [address] [address] GFR Non- 101 ml/min/1.73sqm Normal [facility] ([place]) Comment on above: Result Comment: GFR Population [...] C BC, ADIFF, ANEU, BMP, GFR #### [place] [id number] .NEUABSon 04-27-2024 Neutrophil, Absolute 9.2 10 3/mcL High 2.9-6.2 [facility] ([place]) Comment on above: Performed By: #### C BC, ADIFF, ANEU, BMP, GFR #### [place] [address] CBCon 04-27-2024 Erythrocyte distribution width (RBC) [Ratio] 13.6 % Normal 11.5-14.5 [facility] ([place]) Comment on above: Performed By: #### C BC, ADIFF, ANEU, BMP, GFR #### [place] [address] Hematocrit (Bld) [Volume fraction] 36.7 % Low 42.0-52.0 [facility] ([place]) Comment on above: Performed By: #### C BC, ADIFF, ANEU, BMP, GFR #### [place] [address] Hgb 12.6 G/dL Low 14.0-18.0 [facility] ([place]) Comment on above: Performed By: #### C BC, ADIFF, ANEU, BMP, GFR #### [place] [address] MCH (RBC) [Entitic mass] 32.3 pg High 27.0-31.2 [facility] ([place]) Comment on above: Performed By: #### C BC, ADIFF, ANEU, BMP, GFR #### [address] [address] MCHC 34.4 G/dL Normal 31.8-35.4 [facility] ([place]) Comment on above: Performed By: #### C BC, ADIFF, ANEU, BMP, GFR #### [address] [address] MCV (RBC) [Entitic vol] 93.9 fL Normal 80.0-94.0 [facility] ([place]) Comment on above: Performed By: #### C BC, ADIFF, ANEU, BMP, GFR #### [address] [address] Platelet 238 10 3/mcL Normal 130-400 [facility] ([place]) Comment on above: Performed By: #### C BC, ADIFF, ANEU, BMP, GFR #### [address] [address] Platelet mean volume (Bld) [Entitic vol] 7.4 fL Normal 7.4-10.4 [facility] ([place]) Comment on above: Performed By: #### C BC, ADIFF, ANEU, BMP, GFR #### [address] [address] RBC 3.91 10 6/mcL Low 4.04-6.13 [facility] ([place]) Comment on above: Performed By: #### C BC, ADIFF, ANEU, BMP, GFR #### [address] [address] WBC 11.5 10 3/mcL High 4.6-10.8 [facility] ([place]) Comment on above: Performed By: #### C BC, ADIFF, ANEU, BMP, GFR #### [address] [address] CMPon 04-27-2024 Albumin Level 3.1 G/dL Low 3.4-4.8 [facility] ([place]) Comment on above: Performed By: #### C BC, ADIFF, ANEU, BMP, GFR #### [address] [address] Albumin/Globulin [Mass ratio] 1.2 {ratio} Normal 1.1-2.5 [facility] ([place]) Comment on above: Performed By: #### C BC, ADIFF, ANEU, BMP, GFR #### [address] [address] ALP [Catalytic activity/Vol] 121 U/L Normal 40-135 [facility] ([place]) Comment on above: Performed By: #### C BC, ADIFF, ANEU, BMP, GFR #### [address] [address] ALT [Catalytic activity/Vol] 58 U/L Normal 16-63 [facility] ([place]) Comment on above: Performed By: #### C BC, ADIFF, ANEU, BMP, GFR #### [address] [address] AST [Catalytic activity/Vol] 26 U/L Normal 10-40 [facility] ([place]) Comment on above: Performed By: #### C BC, ADIFF, ANEU, BMP, GFR #### [address] [address] Bili Total 0.4 mg/dL Normal 0.2-1.0 [facility] ([place]) Comment on above: Result Comment: Use of this assay is not recommended for patients undergoing treatment with eltrombopag due to the potential for falsely elevated results. Performed By: #### C BC, ADIFF, ANEU, BMP, GFR #### [address] [address] BUN/Creatinine Ratio 23 ratio Normal 7-27 [facility] ([place]) Comment on above: Performed By: #### C BC, ADIFF, ANEU, BMP, GFR #### [address] [address] Calcium [Mass/Vol] 8.6 mg/dL Normal 8.4-10.2 [facility] ([place]) Comment on above: Performed By: #### C BC, ADIFF, ANEU, BMP, GFR #### [address] [address] Chloride [Moles/Vol] 107 mmol/L Normal 98-107 [facility] ([place]) Comment on above: Performed By: #### C BC, ADIFF, ANEU, BMP, GFR #### [address] [address] CO2 [Moles/Vol] 32 mmol/L High 23-31 [facility] ([place]) Comment on above: Performed By: #### C BC, ADIFF, ANEU, BMP, GFR #### [address] [address] Creatinine [Mass/Vol] 0.75 mg/dL Normal 0.70-1.30 [facility] ([place]) Comment on above: Performed By: #### C BC, ADIFF, ANEU, BMP, GFR #### [address] [address] Electrolyte Balance 7.0 mEq/L Normal 4.0-15.0 [facility] ([place]) Comment on above: Performed By: #### C BC, ADIFF, ANEU, BMP, GFR #### [address] [address] Globulin 2.6 G/dL Normal [facility] ([place]) Comment on above: Performed By: #### C BC, ADIFF, ANEU, BMP, GFR #### [address] [address] Glucose [Mass/Vol] 98 mg/dL Normal 83-110 [facility] ([place]) Comment on above: Performed By: #### C BC, ADIFF, ANEU, BMP, GFR #### [address] [address] Potassium [Moles/Vol] 3.2 mmol/L Low 3.5-5.1 [facility] ([place]) Comment on above: Performed By: #### C BC, ADIFF, ANEU, BMP, GFR #### [address] [address] Sodium [Moles/Vol] 146 mmol/L High 136-145 [facility] ([place]) Comment on above: Performed By: #### C BC, ADIFF, ANEU, BMP, GFR #### [place] [id number] [place], [place] [address] Total Protein 5.7 G/dL Low 6.4-8.2 [facility] ([place]) Comment on above: Performed By: #### C BC, ADIFF, ANEU, BMP, GFR #### [place] [id number] [place], [place] [address] Urea nitrogen [Mass/Vol] 17 mg/dL Normal 7-18 [facility] ([place]) Comment on above: Performed By: #### C BC, ADIFF, ANEU, BMP, GFR #### [place] [id number] [place], [place] [address] LABORATORYOrdered By: SYSTEM SYSTEM on 04-27-2024 Albumin [...] SS MYCOon 04-27-2024 Mycoplasma IgG Negative Normal [facility] ([place]) Comment on above: Order Comment: Cassie cross called to [facility] [place] [id number] 04/23/2024 15:31:57 EDT.Called and faxed to MenaMaye Tiarra @[address] [place] [address] Result Comment: INTE RPRETATION OF MYCOPLASMA IgG BY EIA: Negative: No detectable M. pneumoniae IgG antibody. Positive: Mycoplasma pneumoniae IgG antibody Detected. Equivocal: Equivocal for IgG antibodies to Mycoplasma pneumoniae. Suggest repeat testing in 10-14 days. Performed By: #### C BC, ABDIEL, ANEU, BMP, GFR #### [place] [address] [address] .GFRon 04-26-2024 GFR 112 ml/min/1.73sqm Normal [facility] ([place]) Comment on above: Result Comment: GFR Population [...] BC, ADIFF, ANEU, BMP, GFR #### [place] [address] [address] GFR Non- 92 ml/min/1.73sqm Normal [facility] ([place]) Comment on above: Result Comment: GFR Population [...] C BC, ADIFF, ANEU, BMP, GFR #### [address] [address] BMPon 04-26-2024 BUN/Creatinine Ratio 23 ratio Normal 7-27 [facility] ([place]) Comment on above: Performed By: #### C BC, ADIFF, ANEU, BMP, GFR #### [address] [address] Calcium [Mass/Vol] 8.9 mg/dL Normal 8.4-10.2 [facility] ([place]) Comment on above: Performed By: #### C BC, ADIFF, ANEU, BMP, GFR #### [address] [address] Chloride [Moles/Vol] 109 mmol/L High 98-107 [facility] ([place]) Comment on above: Performed By: #### C BC, ADIFF, ANEU, BMP, GFR #### [address] [address] CO2 [Moles/Vol] 32 mmol/L High 23-31 [facility] ([place]) Comment on above: Performed By: #### C BC, ADIFF, ANEU, BMP, GFR #### [address] [address] Creatinine [Mass/Vol] 0.81 mg/dL Normal 0.70-1.30 [facility] ([place]) Comment on above: Performed By: #### C BC, ADIFF, ANEU, BMP, GFR #### [address] [address] Electrolyte Balance 6.0 mEq/L Normal 4.0-15.0 [facility] ([place]) Comment on above: Performed By: #### C BC, ADIFF, ANEU, BMP, GFR #### [address] [address] Glucose [Mass/Vol] 108 mg/dL Normal 83-110 [facility] ([place]) Comment on above: Performed By: #### C BC, ADIFF, ANEU, BMP, GFR #### [address] [address] Potassium [Moles/Vol] 3.2 mmol/L Low 3.5-5.1 [facility] ([place]) Comment on above: Performed By: #### C BC, ADIFF, ANEU, BMP, GFR #### [address] [address] Sodium [Moles/Vol] 147 mmol/L High 136-145 [facility] ([place]) Comment on above: Performed By: #### C BC, ADIFF, ANEU, BMP, GFR #### [address] [address] Urea nitrogen [Mass/Vol] 19 mg/dL High 7-18 [facility] ([place]) Comment on above: Performed By: #### C BC, ADIFF, ANEU, BMP, GFR #### [address] [address] LABORATORYOrdered By: SYSTEM SYSTEM on 04-26-2024 Calcium [...] Basophil, Absolute 0.0 10 3/mcL Normal 0.0-0.2 [facility] ([place]) Comment on above: Performed By: #### C BC, ABDIEL, ANEU, BMP, GFR #### [address] [address] Basophils/100 WBC (Bld) 0.4 % Normal 0.0-2.5 [facility] ([place]) Comment on above: Performed By: #### C BC, ADIFF, ANEU, BMP, GFR #### [address] [address] Eosinophil, Absolute 0.3 10 3/mcL Normal 0.0-0.4 [facility] ([place]) Comment on above: Performed By: #### C BC, ADIFF, ANEU, BMP, GFR #### [address] [address] Eosinophils/100 WBC (Bld) 3.1 % Normal 0.0-7.0 [facility] ([place]) Comment on above: Performed By: #### C BC, ADIFF, ANEU, BMP, GFR #### [address] [address] Lymphocyte, Absolute 1.0 10 3/mcL Normal 0.8-3.9 [facility] ([place]) Comment on above: Performed By: #### C BC, ADIFF, ANEU, BMP, GFR #### [address] [address] Lymphocytes/100 WBC (Bld) 10.3 % Normal 10.0-50.0 [facility] ([place]) Comment on above: Performed By: #### C BC, ADIFF, ANEU, BMP, GFR #### [address] [address] Monocyte, Absolute 0.9 10 3/mcL Normal 0.2-1.0 [facility] ([place]) Comment on above: Performed By: #### C BC, ADIFF, ANEU, BMP, GFR #### [address] [address] Monocytes/100 WBC (Bld) 9.1 % Normal 1.7-13.0 [facility] ([place]) Comment on above: Performed By: #### C BC, ADIFF, ANEU, BMP, GFR #### [address] [address] Neutrophils/100 WBC (Bld) 77.1 % Normal 37.0-80.0 [facility] ([place]) Comment on above: Performed By: #### C BC, ADIFF, ANEU, BMP, GFR #### [place] [address] [address] .GFRon 04-25-2024 GFR 107 ml/min/1.73sqm Normal [facility] ([place]) Comment on above: Result Comment: GFR Population [...] C BC, ADIFF, ANEU, BMP, GFR #### [address] [address] GFR Non- 88 ml/min/1.73sqm Normal [facility] ([place]) Comment on above: Result Comment: GFR Population [...] C BC, ADIFF, ANEU, BMP, GFR #### [address] [address] .NEUABSon 04-25-2024 Neutrophil, Absolute 7.4 10 3/mcL High 2.9-6.2 [facility] ([place]) Comment on above: Performed By: #### C BC, ADIFF, ANEU, BMP, GFR #### [address] [address] BMPon 04-25-2024 BUN/Creatinine Ratio 31 ratio High 7-27 [facility] ([place]) Comment on above: Performed By: #### C BC, ADIFF, ANEU, BMP, GFR #### [place] [id number] Calcium [Mass/Vol] 8.9 mg/dL Normal 8.4-10.2 [facility] ([place]) Comment on above: Performed By: #### C BC, ADIFF, ANEU, BMP, GFR #### [place] [id number] Chloride [Moles/Vol] 110 mmol/L High 98-107 [facility] ([place]) Comment on above: Performed By: #### C BC, ADIFF, ANEU, BMP, GFR #### [place] [phone] CO2 [Moles/Vol] 30 mmol/L Normal 23-31 [facility] ([place]) Comment on above: Performed By: #### C BC, ADIFF, ANEU, BMP, GFR #### [address] [address] Creatinine [Mass/Vol] 0.84 mg/dL Normal 0.70-1.30 [facility] ([place]) Comment on above: Performed By: #### C BC, ADIFF, ANEU, BMP, GFR #### [address] [address] Electrolyte Balance 8.0 mEq/L Normal 4.0-15.0 [facility] ([place]) Comment on above: Performed By: #### C BC, ADIFF, ANEU, BMP, GFR #### [address] [address] Glucose [Mass/Vol] 120 mg/dL High 83-110 [facility] ([place]) Comment on above: Performed By: #### C BC, ADIFF, ANEU, BMP, GFR #### [address] [address] Potassium [Moles/Vol] 3.5 mmol/L Normal 3.5-5.1 [facility] ([place]) Comment on above: Performed By: #### C BC, ADIFF, ANEU, BMP, GFR #### [address] [address] Sodium [Moles/Vol] 148 mmol/L High 136-145 [facility] ([place]) Comment on above: Performed By: #### C BC, ADIFF, ANEU, BMP, GFR #### [address] [address] Urea nitrogen [Mass/Vol] 26 mg/dL High 7-18 [facility] ([place]) Comment on above: Performed By: #### C BC, ADIFF, ANEU, BMP, GFR #### [address] [address] CBCon 04-25-2024 Erythrocyte distribution width (RBC) [Ratio] 14.1 % Normal 11.5-14.5 [facility] ([place]) Comment on above: Performed By: #### C BC, ADIFF, ANEU, BMP, GFR #### [address] [address] Hematocrit (Bld) [Volume fraction] 36.6 % Low 42.0-52.0 [facility] ([place]) Comment on above: Performed By: #### C BC, ADIFF, ANEU, BMP, GFR #### [place] [id number] Hgb 12.8 G/dL Low 14.0-18.0 [facility] ([place]) Comment on above: Performed By: #### C BC, ADIFF, ANEU, BMP, GFR #### [address] [id number] MCH (RBC) [Entitic mass] 32.9 pg High 27.0-31.2 [facility] ([place]) Comment on above: Performed By: #### C BC, ADIFF, ANEU, BMP, GFR #### [address] [address] MCHC 34.9 G/dL Normal 31.8-35.4 [facility] ([place]) Comment on above: Performed By: #### C BC, ADIFF, ANEU, BMP, GFR #### [address] [address] MCV (RBC) [Entitic vol] 94.1 fL High 80.0-94.0 [facility] ([place]) Comment on above: Performed By: #### C BC, ADIFF, ANEU, BMP, GFR #### [address] [address] Platelet 218 10 3/mcL Normal 130-400 [facility] ([place]) Comment on above: Performed By: #### C BC, ADIFF, ANEU, BMP, GFR #### [address] [address] Platelet mean volume (Bld) [Entitic vol] 7.3 fL Low 7.4-10.4 [facility] ([place]) Comment on above: Performed By: #### C BC, ADIFF, ANEU, BMP, GFR #### [address] [address] RBC 3.89 10 6/mcL Low 4.04-6.13 [facility] ([place]) Comment on above: Performed By: #### C BC, ADIFF, ANEU, BMP, GFR #### [address] [address] WBC 9.6 10 3/mcL Normal 4.6-10.8 [facility] ([place]) Comment on above: Performed By: #### C BC, ADIFF, ANEU, BMP, GFR #### [address] [address] LABORATORYOrdered By: SYSTEM SYSTEM on 04-25-2024 Basophil, [...] Basophil, Absolute 0.0 10 3/mcL Normal 0.0-0.2 [facility] ([place]) Comment on above: Performed By: #### C BC, ADIFF, ANEU, BMP, GFR #### [address] [address] Basophils/100 WBC (Bld) 0.4 % Normal 0.0-2.5 [facility] ([place]) Comment on above: Performed By: #### C BC, ADIFF, ANEU, BMP, GFR #### [address] [address] Eosinophil, Absolute 0.1 10 3/mcL Normal 0.0-0.4 [facility] ([place]) Comment on above: Performed By: #### C BC, ADIFF, ANEU, BMP, GFR #### [address] [address] Eosinophils/100 WBC (Bld) 0.6 % Normal 0.0-7.0 [facility] ([place]) Comment on above: Performed By: #### C BC, ADIFF, ANEU, BMP, GFR #### [address] [address] Lymphocyte, Absolute 1.1 10 3/mcL Normal 0.8-3.9 [facility] ([place]) Comment on above: Performed By: #### C BC, ADIFF, ANEU, BMP, GFR #### [address] [address] Lymphocytes/100 WBC (Bld) 8.7 % Low 10.0-50.0 [facility] ([place]) Comment on above: Performed By: #### C BC, ADIFF, ANEU, BMP, GFR #### [place] [id number] [place], [place] [address] Monocyte, Absolute 1.0 10 3/mcL Normal 0.2-1.0 [facility] ([place]) Comment on above: Performed By: #### C BC, ADIFF, ANEU, BMP, GFR #### [address] [address] Monocytes/100 WBC (Bld) 7.8 % Normal 1.7-13.0 [facility] ([place]) Comment on above: Performed By: #### C BC, ADIFF, ANEU, BMP, GFR #### [address] [address] Neutrophils/100 WBC (Bld) 82.5 % High 37.0-80.0 [facility] ([place]) Comment on above: Performed By: #### C BC, ADIFF, ANEU, BMP, GFR #### [address] [address] .GFRon 04-24-2024 GFR 107 ml/min/1.73sqm Normal [facility] ([place]) Comment on above: Result Comment: GFR Population [...] meters Performed By: #### M RSAPCR #### [address] [address] GFR Non- 88 ml/min/1.73sqm Normal [facility] ([place]) Comment on above: Result Comment: GFR Population [...] meters Performed By: #### M RSAPCR #### [address] [address] .NEUABSon 04-24-2024 Neutrophil, Absolute 10.2 10 3/mcL High 2.9-6.2 [facility] ([place]) Comment on above: Performed By: #### M RSAPCR #### [address] [address] CBCon 04-24-2024 Erythrocyte distribution width (RBC) [Ratio] 13.5 % Normal 11.5-14.5 [facility] ([place]) Comment on above: Performed By: #### C BC, ADIFF, ANEU, BMP, GFR #### [address] [address] Hematocrit (Bld) [Volume fraction] 37.7 % Low 42.0-52.0 [facility] ([place]) Comment on above: Performed By: #### C BC, ADIFF, ANEU, BMP, GFR #### [address] [address] Hgb 13.1 G/dL Low 14.0-18.0 [facility] ([place]) Comment on above: Performed By: #### C BC, ADIFF, ANEU, BMP, GFR #### [address] [address] MCH (RBC) [Entitic mass] 32.9 pg High 27.0-31.2 [facility] ([place]) Comment on above: Performed By: #### C BC, ADIFF, ANEU, BMP, GFR #### [address] [address] MCHC 34.8 G/dL Normal 31.8-35.4 [facility] ([place]) Comment on above: Performed By: #### C BC, ADIFF, ANEU, BMP, GFR #### [address] [address] MCV (RBC) [Entitic vol] 94.4 fL High 80.0-94.0 [facility] ([place]) Comment on above: Performed By: #### C BC, ADIFF, ANEU, BMP, GFR #### [address] [address] Platelet 226 10 3/mcL Normal 130-400 [facility] ([place]) Comment on above: Performed By: #### C BC, ADIFF, ANEU, BMP, GFR #### [address] [address] Platelet mean volume (Bld) [Entitic vol] 7.5 fL Normal 7.4-10.4 [facility] ([place]) Comment on above: Performed By: #### C BC, ADIFF, ANEU, BMP, GFR #### [address] [address] RBC 4.00 10 6/mcL Low 4.04-6.13 [facility] ([place]) Comment on above: Performed By: #### C BC, ADIFF, ANEU, BMP, GFR #### [address] [address] WBC 12.3 10 3/mcL High 4.6-10.8 [facility] ([place]) Comment on above: Performed By: #### C BC, ADIFF, ANEU, BMP, GFR #### [address] [address] CMPon 04-24-2024 Albumin Level 3.2 G/dL Low 3.4-4.8 [facility] ([place]) Comment on above: Performed By: #### M RSAPCR #### [address] [address] Albumin/Globulin [Mass ratio] 1.1 {ratio} Normal 1.1-2.5 [facility] ([place]) Comment on above: Performed By: #### M RSAPCR #### [address] [address] ALP [Catalytic activity/Vol] 150 U/L High 40-135 [facility] ([place]) Comment on above: Performed By: #### M RSAPCR #### [address] [address] ALT [Catalytic activity/Vol] 90 U/L High 16-63 [facility] ([place]) Comment on above: Performed By: #### M RSAPCR #### [address] [address] AST [Catalytic activity/Vol] 28 U/L Normal 10-40 [facility] ([place]) Comment on above: Performed By: #### M RSAPCR #### [address] [address] Bili Total 0.5 mg/dL Normal 0.2-1.0 [facility] ([place]) Comment on above: Result Comment: Use of this assay is not recommended for patients undergoing treatment with eltrombopag due to the potential for falsely elevated results. Performed By: #### M RSAPCR #### [place] [id number] BUN/Creatinine Ratio 36 ratio High 7-27 [facility] ([place]) Comment on above: Performed By: #### M RSAPCR #### [address] [address] Calcium [Mass/Vol] 8.8 mg/dL Normal 8.4-10.2 [facility] ([place]) Comment on above: Performed By: #### M RSAPCR #### [address] [address] Chloride [Moles/Vol] 109 mmol/L High 98-107 [facility] ([place]) Comment on above: Performed By: #### M RSAPCR #### [address] [address] CO2 [Moles/Vol] 32 mmol/L High 23-31 [facility] ([place]) Comment on above: Performed By: #### M RSAPCR #### [address] [address] Creatinine [Mass/Vol] 0.84 mg/dL Normal 0.70-1.30 [facility] ([place]) Comment on above: Performed By: #### M RSAPCR #### [address] [address] Electrolyte Balance 5.0 mEq/L Normal 4.0-15.0 [facility] ([place]) Comment on above: Performed By: #### M RSAPCR #### [address] [address] Globulin 2.9 G/dL Normal [facility] ([place]) Comment on above: Performed By: #### M RSAPCR #### [address] [address] Glucose [Mass/Vol] 111 mg/dL High 83-110 [facility] ([place]) Comment on above: Performed By: #### M RSAPCR #### [address] [address] Potassium [Moles/Vol] 3.4 mmol/L Low 3.5-5.1 [facility] ([place]) Comment on above: Performed By: #### M RSAPCR #### [address] [address] Sodium [Moles/Vol] 146 mmol/L High 136-145 [facility] ([place]) Comment on above: Performed By: #### M RSAPCR #### [address] [address] Total Protein 6.1 G/dL Low 6.4-8.2 [facility] ([place]) Comment on above: Performed By: #### M RSAPCR #### [address] [address] Urea nitrogen [Mass/Vol] 30 mg/dL High 7-18 [facility] ([place]) Comment on above: Performed By: #### M RSAPCR #### [place] [address] LABORATORYOrdered By: SYSTEM SYSTEM on 04-24-2024 Albumin [...] BC, ADIFF, ANEU, BMP, GFR #### [place] [address] [address] Basophils/100 WBC (Bld) 0.1 % Normal 0.0-2.5 A O Workflow SS Comment on above: Performed By: #### C BC, ADIFF, ANEU, BMP, GFR #### [address] [address] Eosinophil, Absolute 0.0 103/mcL Normal 0.0-0.4 AO [facility] Comment on above: Performed By: #### C BC, ADIFF, ANEU, BMP, GFR #### [address] [address] Eosinophils/100 WBC (Bld) 0.1 % Normal 0.0-7.0 AO [facility] Comment on above: Performed By: #### C BC, ADIFF, ANEU, BMP, GFR #### [address] [address] Lymphocyte, Absolute 0.4 103/mcL Low 0.8-3.9 AO Work[facility] SS Comment on above: Performed By: #### C BC, ADIFF, ANEU, BMP, GFR #### [address] [address] Lymphocytes/100 WBC (Bld) 6.9 % Low 10.0-50.0 AO [facility] Comment on above: Performed By: #### C BC, ADIFF, ANEU, BMP, GFR #### [address] [address] Monocyte, Absolute 0.1 103/mcL Low 0.2-1.0 AO Wo rkflow SS Comment on above: Performed By: #### C BC, ADIFF, ANEU, BMP, GFR #### [address] [address] Monocytes/100 WBC (Bld) 2.7 % Normal 1.7-13.0 A O Workflow SS Comment on above: Performed By: #### C BC, ADIFF, ANEU, BMP, GFR #### [address] [address] Neutrophils/100 WBC (Bld) 90.2 % High 37.0-80.0 AO [facility] Comment on above: Performed By: #### C BC, ADIFF, ANEU, BMP, GFR #### [address] [address] .GFRon 04-23-2024 GFR 95 ml/min/1.73sqm Normal [facility] ([place]) Comment on above: Result Comment: GFR Population [...] C BC, ADIFF, ANEU, BMP, GFR #### [address] [address] GFR Non- 79 ml/min/1.73sqm Normal [facility] ([place]) Comment on above: Result Comment: GFR Population [...] C BC, ADIFF, ANEU, BMP, GFR #### [address] [address] .NEUABSOrdered By: SYSTEM SY STEM on 04-23-2024 Neutrophil, Absolute 4.8 103/mcL Normal 2.9-6.2 AO Workflow SS Comment on above: Performed By: #### C BC, ADIFF, ANEU, BMP, GFR #### [place] [address] .Urinalysis Microscopic (AO) on 04-23-2024 UA RBC None Seen Normal None Seen [facility] ([place]) Comment on above: Performed By: #### C BC, ADIFF, ANEU, BMP, GFR #### [place] [address] UA Squam Epithelial None Seen Normal None Seen [facility] ([place]) Comment on above: Performed By: #### C BC, ADIFF, ANEU, BMP, GFR #### [place] [address] UA WBC None Seen Normal None Seen [facility] ([place]) Comment on above: Performed By: #### C BC, ADIFF, ANEU, BMP, GFR #### [place] [address] CBCOrdered By: SYSTEM SYSTEM on 04-23-2024 Erythrocyte distribution width (RBC) [Ratio] 13.5 % Normal 11.5-14.5 AO Workflow SS Comment on above: Performed By: #### C BC, ADIFF, ANEU, BMP, GFR #### [place] [address] Hematocrit (Bld) [Volume fraction] 38.7 % Low 42.0-52.0 AO Workflow SS Comment on above: Performed By: #### C BC, ADIFF, ANEU, BMP, GFR #### [place] [address] MCH (RBC) [Entitic mass] 32.6 pg High 27.0-31.2 AO Workflow SS Comment on above: Performed By: #### C BC, ADIFF, ANEU, BMP, GFR #### [place] [address] MCHC 34.6 G/dL Normal 31.8-35.4 AO Workflow SS Comment on above: Performed By: #### C BC, ADIFF, ANEU, BMP, GFR #### [address] [address] MCV (RBC) [Entitic vol] 94.4 fL High 80.0-94.0 A O Workflow SS Comment on above: Performed By: #### C BC, ADIFF, ANEU, BMP, GFR #### [address] [address] Platelet mean volume (Bld) [Entitic vol] 7.7 fL Normal 7.4-10.4 AO Workflow SS Comment on above: Performed By: #### C BC, ADIFF, ANEU, BMP, GFR #### [address] [address] CBCon 04-23-2024 Hgb 13.4 G/dL Low 14.0-18.0 [facility] ([place]) Comment on above: Performed By: #### C BC, ADIFF, ANEU, BMP, GFR #### [address] [address] Platelet 235 10 3/mcL Normal 130-400 [facility] ([place]) Comment on above: Performed By: #### C BC, ADIFF, ANEU, BMP, GFR #### [address] [address] RBC 4.10 10 6/mcL Normal 4.04-6.13 [facility] ([place]) Comment on above: Performed By: #### C BC, ADIFF, ANEU, BMP, GFR #### [address] [address] WBC 5.3 10 3/mcL Normal 4.6-10.8 [facility] ([place]) Comment on above: Performed By: #### C BC, ADIFF, ANEU, BMP, GFR #### [address] [address] CMPon 04-23-2024 Albumin Level 3.1 G/dL Low 3.4-4.8 [facility] ([place]) Comment on above: Performed By: #### C BC, ADIFF, ANEU, BMP, GFR #### [address] [address] ALT [Catalytic activity/Vol] 125 U/L High 16-63 [facility] ([place]) Comment on above: Performed By: #### C BC, ADIFF, ANEU, BMP, GFR #### [address] [address] AST [Catalytic activity/Vol] 79 U/L High 10-40 [facility] ([place]) Comment on above: Performed By: #### C BC, ADIFF, ANEU, BMP, GFR #### [address] [address] Bili Total 0.4 mg/dL Normal 0.2-1.0 [facility] ([place]) Comment on above: Result Comment: Use of this assay is not recommended for patients undergoing treatment with eltrombopag due to the potential for falsely elevated results. Performed By: #### C BC, ADIFF, ANEU, BMP, GFR #### [address] [address] BUN/Creatinine Ratio 33 ratio High 7-27 [facility] ([place]) Comment on above: Performed By: #### C BC, ADIFF, ANEU, BMP, GFR #### [address] [address] Calcium [Mass/Vol] 8.7 mg/dL Normal 8.4-10.2 [facility] ([place]) Comment on above: Performed By: #### C BC, ADIFF, ANEU, BMP, GFR #### [address] [address] Chloride [Moles/Vol] 107 mmol/L Normal 98-107 [facility] ([place]) Comment on above: Performed By: #### C BC, ADIFF, ANEU, BMP, GFR #### [address] [address] CO2 [Moles/Vol] 29 mmol/L Normal 23-31 [facility] ([place]) Comment on above: Performed By: #### C BC, ADIFF, ANEU, BMP, GFR #### [address] [address] Creatinine [Mass/Vol] 0.93 mg/dL Normal 0.70-1.30 [facility] ([place]) Comment on above: Performed By: #### C BC, ADIFF, ANEU, BMP, GFR #### [address] [address] Electrolyte Balance 8.0 mEq/L Normal 4.0-15.0 [facility] ([place]) Comment on above: Performed By: #### C BC, ADIFF, ANEU, BMP, GFR #### [address] [address] Glucose [Mass/Vol] 173 mg/dL High 83-110 [facility] ([place]) Comment on above: Performed By: #### C BC, ADIFF, ANEU, BMP, GFR #### [address] [address] Potassium [Moles/Vol] 3.9 mmol/L Normal 3.5-5.1 [facility] ([place]) Comment on above: Performed By: #### C BC, ADIFF, ANEU, BMP, GFR #### [address] [address] Sodium [Moles/Vol] 144 mmol/L Normal 136-145 [facility] ([place]) Comment on above: Performed By: #### C BC, ADIFF, ANEU, BMP, GFR #### [address] [address] Total Protein 6.2 G/dL Low 6.4-8.2 [facility] ([place]) Comment on above: Performed By: #### C BC, ADIFF, ANEU, BMP, GFR #### [address] [address] Urea nitrogen [Mass/Vol] 31 mg/dL High 7-18 [facility] ([place]) Comment on above: Performed By: #### C BC, ADIFF, ANEU, BMP, GFR #### [address] [address] CMPOrdered By: SYSTEM SYSTEM on 04-23-2024 Albumin/Globulin [Mass ratio] 1.0 {ratio} Low 1.1-2.5 AO ADM SS Comment on above: Performed By: #### C BC, ADIFF, ANEU, BMP, GFR #### [place] [address] [address] ALP [Catalytic activity/Vol] 183 U/L High 40-135 AO ADM SS Comment on above: Performed By: #### C BC, ADIFF, ANEU, BMP, GFR #### [place] [address] [address] Globulin 3.1 G/dL Normal AO ADM SS Comment on above: Performed By: #### C BC, ADIFF, ANEU, BMP, GFR #### [place] [address] [place] [id number] LABORATORYOrdered By: Tan De León on 04-23-2024 Adenovirus DNA DARYA+non-probe Ql (Nph) Not Detected *NA* (04/23/24 10:33 AM) Invalid Interpretation Code Not Detected [facility]Sero SS B. parapertussis [id number] DNA DARYA+non-probe Ql (Nph) Not Detected *NA* [...] his assay has been validated in the [facility] for use with nasopharyngeal specimens in [facility]. If a non-validated specimen or test collection [...] Comment on above: Result Comment: Note s [id number] MRSA PCR Int MRSA DNA not detected [...] may not be reproducible. Invalid Interpretation Code AH [facility]/Sero SS LABORATORYOrdered By: SYSTEM SYSTEM [...] BC, ADIFF, ANEU, BMP, GFR #### [place] [address] [place], [place] [address] MRI SPINE LUMBAR W/O CONTRAS Ton 04-23-2024 [...] severe facet arthrosis causes severe left and [id number] right foraminal narrowing without central canal stenosis. [...] severe bilateral L4-5, and severe left and [id number]-[id number] right at L5-S1. 4. Level by level findings as described. Interpreted by: Modesto Lunsford MD Preliminary Report By: Modesto Lunsford MD Electronically signed By Modesto Lunsford MD Dictated Date: 04/23/2024 10:34:51 AM Prelim Date: 04/23/2024 10:53:15 AM Sign Date: 04/23/2024 10:53:15 AM Ordering Provider: OSMEL BURRELL [facility]) MRSAPCRon 04-23-2024 MRSA (PCR) Not detected Normal Not Detected [facility]) Comment on above: Result Comment: [place] [id number] Performed By: #### M RSAPCR #### [place] [address] MRSA PCR Int [facility]) Comment on above: Result Comment: MRSA DNA [...] Below Performed By: #### M RSAPCR #### [place] [address] MYCOon 04-23-2024 Mycoplasma IgM Positive Abnormal [facility] ([place]) Comment on above: Order Comment: Cassie cross called to [facility] [place] [phone] 04/23/2024 15:31:57 EDT.Called and faxed to Archie Mayen @[address] [place] [address] Result Comment: INTE RPRETATION OF MYCOPLASMA IgM: Negative: IgM to M. pneumoniae Absent, or at levels below the assay limit of detection. Positive: IgM to M. pneumoniae Present. Invalid: Test results are invalid due to invalid internal control. Assay was performed in duplicate. Repeat testing is suggested if clinically indicated. Performed By: #### C BC, ADIFF, ANEU, BMP, GFR #### [address] [address] RESCVIDon 04-23-2024 Adenovirus Not detected Normal Not Detected [facility] ([place]) Comment on above: Performed By: #### C BC, ADIFF, ANEU, BMP, GFR #### [address] [address] Bordetella Parapertussis Not detected Normal Not Detected [facility] ([place]) Comment on above: Performed By: #### C BC, ADIFF, ANEU, BMP, GFR #### [address] [address] Bordetella Pertussis Not detected Normal Not Detected [facility] ([place]) Comment on above: Performed By: #### C BC, ADIFF, ANEU, BMP, GFR #### [address] [address] Chlamydophila pneumoniae Not detected Normal Not Detected [facility] ([place]) Comment on above: Performed By: #### C BC, ADIFF, ANEU, BMP, GFR #### [address] [address] Coronavirus 229E (Not COVID-19) Not detected Normal Not Detected [facility] ([place]) Comment on above: Performed By: #### C BC, ADIFF, ANEU, BMP, GFR #### [place] [address] [place], [place] [address] Coronavirus HKU1 (Not COVID-19) Not detected Normal Not Detected [facility] ([place]) Comment on above: Performed By: #### C BC, ADIFF, ANEU, BMP, GFR #### [place] [address] Coronavirus NL63 (Not COVID-19) Not detected Normal Not Detected [facility] ([place]) Comment on above: Performed By: #### C BC, ADIFF, ANEU, BMP, GFR #### [place] [address] Coronavirus OC43 (Not COVID-19) Not detected Normal Not Detected [facility] ([place]) Comment on above: Performed By: #### C BC, ADIFF, ANEU, BMP, GFR #### [place] [address] Human Metapneumovirus Not detected Normal Not Detected [facility] ([place]) Comment on above: Performed By: #### C BC, ADIFF, ANEU, BMP, GFR #### [place] [address] Influenza A Not detected Normal Not Detected [facility] ([place]) Comment on above: Performed By: #### C BC, ADIFF, ANEU, BMP, GFR #### [address] [address] Influenza B Not detected Normal Not Detected [facility] ([place]) Comment on above: Performed By: #### C BC, ADIFF, ANEU, BMP, GFR #### [address] [address] Mycoplasma pneumoniae Not detected Normal Not Detected [facility] ([place]) Comment on above: Performed By: #### C BC, ADIFF, ANEU, BMP, GFR #### [address] [address] Parainfluenza 1 Not detected Normal Not Detected [facility] ([place]) Comment on above: Performed By: #### C BC, ADIFF, ANEU, BMP, GFR #### [place] [address] [place], [place] [address] Parainfluenza 2 Not detected Normal Not Detected [facility] ([place]) Comment on above: Performed By: #### C BC, ADIFF, ANEU, BMP, GFR #### [address] [address] Parainfluenza 3 Not detected Normal Not Detected [facility] ([place]) Comment on above: Performed By: #### C BC, ADIFF, ANEU, BMP, GFR #### [address] [address] Parainfluenza 4 Not detected Normal Not Detected [facility] ([place]) Comment on above: Performed By: #### C BC, ADIFF, ANEU, BMP, GFR #### [address] [address] Respiratory Syncytial Virus Not detected Normal Not Detected [facility] ([place]) Comment on above: Performed By: #### C BC, ADIFF, ANEU, BMP, GFR #### [address] [address] Rhinovirus/Enterovirus Not detected Normal Not Detecte d [facility] ([place]) Comment on above: Performed By: #### C BC, ADIFF, ANEU, BMP, GFR #### [address] [address] SARS-CoV-2 (COVID-19) RNA DARYA+probe Ql (Unsp spec) Not detected Normal Not Detected [facility] ([place]) Comment on above: Result Comment: This assay has been validated in the [facility] for use with nasopharyngeal specimens in [facility]. If a non-validated specimen or test collection [...] health authorities. Performed By: #### C BC, ADIFF, ANEU, BMP, GFR #### [place] [address] UAon 04-23-2024 Color (U) Dark yellow Normal [facility] ([place]) Comment on above: Performed By: #### C BC, ADIFF, ANEU, BMP, GFR #### [place] [address] Glucose (U) [Mass/Vol] Negative Normal Negative [facility] ([place]) Comment on above: Performed By: #### C BC, ADIFF, ANEU, BMP, GFR #### [place] [id number] Ketones Ql (U) 15 mg/dL Abnormal Negative [facility] ([place]) Comment on above: Performed By: #### C BC, ADIFF, ANEU, BMP, GFR #### [place] [id number] UA Appear Clear Normal Clear [facility] ([place]) Comment on above: Performed By: #### C BC, ADIFF, ANEU, BMP, GFR #### [place] [id number] UA Blood Negative Normal Negative [facility] ([place]) Comment on above: Performed By: #### C BC, ADIFF, ANEU, BMP, GFR #### [address] [address] UA Leuk Est Negative Normal Negative [facility] ([place]) Comment on above: Performed By: #### C BC, ADIFF, ANEU, BMP, GFR #### [address] [address] UA Nitrite Negative Normal Negative [facility] ([place]) Comment on above: Performed By: #### C BC, ADIFF, ANEU, BMP, GFR #### [address] [address] UA pH 6.0 Normal 5.0 - 8.0 [facility] ([place]) Comment on above: Performed By: #### C BC, ADIFF, ANEU, BMP, GFR #### [address] [address] UA Protein 30 mg/dL Normal Negative [facility] ([place]) Comment on above: Performed By: #### C BC, ADIFF, ANEU, BMP, GFR #### [address] [address] UA Spec Grav >=1.030 Abnormal 1.015-1.025 [facility] ([place]) Comment on above: Performed By: #### C BC, ADIFF, ANEU, BMP, GFR #### [address] [address] UA Specimen Type Clean Catch Normal [facility] ([place]) Comment on above: Performed By: #### C BC, ADIFF, ANEU, BMP, GFR #### [address] [address] UA Urobilinogen >=8.0 Abnormal 0.2-1.0 [facility] ([place]) Comment on above: Performed By: #### C BC, ADIFF, ANEU, BMP, GFR #### [address] [address] Urobilinogen (U) [Mass/Vol] Negative Normal Negative [facility] ([place]) Comment on above: Performed By: #### C BC, ADIFF, ANEU, BMP, GFR #### [facility] [address] [place], [place] [address] .Auto Diffon 04-22-2024 Basophil, Absolute 0.1 10 3/mcL Normal 0.0-0.2 [facility] ([place]) Comment on above: Performed By: #### M RSAPCR #### [address] [address] Basophils/100 WBC (Bld) 0.6 % Normal 0.0-2.5 [facility] ([place]) Comment on above: Performed By: #### M RSAPCR #### [address] [address] Eosinophil, Absolute 0.4 10 3/mcL Normal 0.0-0.4 [facility] ([place]) Comment on above: Performed By: #### M RSAPCR #### [address] [address] [address] Eosinophils/100 WBC (Bld) 3.4 % Normal 0.0-7.0 [facility] ([place]) Comment on above: Performed By: #### M RSAPCR #### [address] [address] Lymphocyte, Absolute 0.7 10 3/mcL Low 0.8-3.9 [facility] ([place]) Comment on above: Performed By: #### M RSAPCR #### [address] [address] Lymphocytes/100 WBC (Bld) 6.6 % Low 10.0-50.0 [facility] ([place]) Comment on above: Performed By: #### M RSAPCR #### [address] [address] Monocyte, Absolute 0.9 10 3/mcL Normal 0.2-1.0 [facility] ([place]) Comment on above: Performed By: #### M RSAPCR #### [address] [address] Monocytes/100 WBC (Bld) 8.5 % Normal 1.7-13.0 [facility] ([place]) Comment on above: Performed By: #### M RSAPCR #### [address] [address] Neutrophils/100 WBC (Bld) 80.9 % High 37.0-80.0 [facility] ([place]) Comment on above: Performed By: #### M RSAPCR #### [address] [address] .GFRon 04-22-2024 GFR Non- 115 ml/min/1.73sqm Normal [facility] ([place]) Comment on above: Result Comment: GFR Population [...] meters Performed By: #### M RSAPCR #### [address] [address] GFR 139 ml/min/1.73sqm Normal [facility] ([place]) Comment on above: Result Comment: GFR Population [...] meters Performed By: #### M RSAPCR #### [address] [address] .MDWon 04-22-2024 Monocyte Distribution Width 19.45 Normal 0.00-20.00 [facility] ([place]) Comment on above: Result Comment: For ED adult patients suspected of sepsis, MDW<=20.0 does not rule out sepsis or risk of sepsis Performed By: #### M RSAPCR #### [address] [address] .NEUABSon 04-22-2024 Neutrophil, Absolute 8.8 10 3/mcL High 2.9-6.2 [facility] ([place]) Comment on above: Performed By: #### M RSAPCR #### [address] [address] BMPon 04-22-2024 BUN/Creatinine Ratio 33 ratio High 7-27 [facility] ([place]) Comment on above: Performed By: #### M RSAPCR #### [place] [id number] Calcium [Mass/Vol] 8.9 mg/dL Normal 8.4-10.2 [facility] ([place]) Comment on above: Performed By: #### M RSAPCR #### [address] [address] Chloride [Moles/Vol] 106 mmol/L Normal 98-107 [facility] ([place]) Comment on above: Performed By: #### M RSAPCR #### [address] [address] CO2 [Moles/Vol] 30 mmol/L Normal 23-31 [facility] ([place]) Comment on above: Performed By: #### M RSAPCR #### [address] [address] Creatinine [Mass/Vol] 0.67 mg/dL Low 0.70-1.30 [facility] ([place]) Comment on above: Performed By: #### M RSAPCR #### [address] [address] Electrolyte Balance 9.0 mEq/L Normal 4.0-15.0 [facility] ([place]) Comment on above: Performed By: #### M RSAPCR #### [address] [address] Glucose [Mass/Vol] 111 mg/dL High 83-110 [facility] ([place]) Comment on above: Performed By: #### M RSAPCR #### [address] [address] Potassium [Moles/Vol] 3.9 mmol/L Normal 3.5-5.1 [facility] ([place]) Comment on above: Performed By: #### M RSAPCR #### [address] [address] Sodium [Moles/Vol] 145 mmol/L Normal 136-145 [facility] ([place]) Comment on above: Performed By: #### M RSAPCR #### [address] [address] Urea nitrogen [Mass/Vol] 22 mg/dL High 7-18 [facility] ([place]) Comment on above: Performed By: #### M RSAPCR #### [address] [address] CBCon 04-22-2024 Erythrocyte distribution width (RBC) [Ratio] 13.6 % Normal 11.5-14.5 [facility] ([place]) Comment on above: Performed By: #### M RSAPCR #### [address] [address] Hematocrit (Bld) [Volume fraction] 42.5 % Normal 42.0-52.0 [facility] ([place]) Comment on above: Performed By: #### M RSAPCR #### [address] [address] Hgb 14.8 G/dL Normal 14.0-18.0 [facility] ([place]) Comment on above: Performed By: #### M RSAPCR #### [address] [address] MCH (RBC) [Entitic mass] 32.9 pg High 27.0-31.2 [facility] ([place]) Comment on above: Performed By: #### M RSAPCR #### [place] [id number] MCHC 34.7 G/dL Normal 31.8-35.4 [facility] ([place]) Comment on above: Performed By: #### M RSAPCR #### [place] [address] MCV (RBC) [Entitic vol] 94.8 fL High 80.0-94.0 [facility] ([place]) Comment on above: Performed By: #### M RSAPCR #### [place] [address] Platelet 223 10 3/mcL Normal 130-400 [facility] ([place]) Comment on above: Performed By: #### M RSAPCR #### [place] [address] Platelet mean volume (Bld) [Entitic vol] 7.3 fL Low 7.4-10.4 [facility] ([place]) Comment on above: Performed By: #### M RSAPCR #### [place] [address] RBC 4.49 10 6/mcL Normal 4.04-6.13 [facility] ([place]) Comment on above: Performed By: #### M RSAPCR #### [place] [address] WBC 10.8 10 3/mcL Normal 4.6-10.8 [facility] ([place]) Comment on above: Performed By: #### M RSAPCR #### [place] [address] CVFLURVon 04-22-2024 FLU A PCR Negative Normal Negative [facility] ([place]) Comment on above: Performed By: #### M RSAPCR #### [place] [address] FLU B PCR Negative Normal Negative [facility] ([place]) Comment on above: Performed By: #### M RSAPCR #### [place] [address] RSV PCR Negative Normal Negative [facility] ([place]) Comment on above: Performed By: #### M RSAPCR #### [place] [address] SARS-CoV-2 (COVID-19) RNA DARYA+probe Ql (Unsp spec) Negative Normal Negative [facility] ([place]) Comment on above: Result Comment: Resu lts [...] results. Performed By: #### M RSAPCR #### [place] [address] LABORATORYOrdered By: Leida Combs on 04-22-2024 M. pneumoniae IgM IA Ql (S) Positive 9 *ABN* (04/22/24 10:09 PM) Invalid Interpretation Code Man Viro/Sero SS Comment on above: Interpretive [...] ng/L Male: 0-76 ng/L Testing performed on Emulate using a homogeneous sandwich chemiluminescent immunoassay based on [employer] technology. No Panel Informationon 04-22 Legionella Urine Ag Presumptive negative for L. pneumophila serogroup 1 antigen in urine, suggesting no recent or current infection. Legionnaire's disease cannot be ruled out since other serogroups and species may also cause disease. [facility] Streptococcus Pneumoniae Urine Antig Presumptive negative for pneumococcal pneumonia, suggesting no current or recent pneumococcal infection. Infection due to Strep pneumoniae cannot be ruled out since the antigen present in the sample may be below the detection limit of the test. [facility] Comment on above: This test has not be en evaluated on patients taking antibiotics for greater than 24 hours or on patients who have recently completed an antibiotic regimen. The accuracy of this test has not been proven in young children. PBNPon 04-22-2024 Natriuretic peptide B (Bld) [Mass/Vol] 525 pg/mL High 0-450 [facility] ([place]) Comment on above: Result Comment: NT-p roBNP results of less than 300 pg/mL effectively rules out acute congestive heart failure with 99% negative predictive value. Performed By: #### C BC, ADIFF, ANEU, FERR, FE, CMP, GFR, LIPID #### [address] [address] #### B12 #### [place] [address] TROPHSon 04-22-2024 High Sensitivity Troponin I 6 ng/L Normal 0-76 [facility] ([place]) Comment on above: Result Comment: High Sensitive Troponin I Reference Ranges: Female: 0-51 ng/L Male: 0-76 ng/L Testing performed on Emulate using a homogeneous sandwich chemiluminescent immunoassay based on [employer] technology. Performed By: #### C BC, ADIFF, ANEU, FERR, FE, CMP, GFR, LIPID #### [address] [address] #### B12 #### [place] [address] XR CHEST 1 VIEWon 04-22-2024 XR CHEST [...] Date: 04/22/2024 10:33:35 PM Ordering Provider: ANTOINE MEJIA [facility] ([place]) XR SPINE LUMBAR AP/LATon XR SPINE LUMBAR [...] with vertebral cement augmentation. No significant spondylolisthesis. Kywn-on-zfkqtamt multilevel degenerative changes with intervertebral disc height [...] Date: 04/22/2024 10:32:15 PM Ordering Provider: ANTOINE MEJIA [facility] ([place]) B12on 02-20-2024 Cobalamin (Vitamin B12) [Mass/Vol] 696 pg/mL Normal 211-911 [facility] ([place]) Comment on above: Performed By: #### C BC, ADIFF, ANEU, BMP, GFR #### [address] [address] .Auto Diffon 02-19-2024 Basophil, Absolute 0.0 10 3/mcL Normal 0.0-0.2 [facility] ([place]) Comment on above: Performed By: #### C BC, ADIFF, ANEU, FERR, FE, CMP, GFR, LIPID #### [address] [address] #### B12 #### [address] [address] Basophils/100 WBC (Bld) 0.5 % Normal 0.0-2.5 [facility] ([place]) Comment on above: Performed By: #### C BC, ADIFF, ANEU, FERR, FE, CMP, GFR, LIPID #### [address] [address] #### B12 #### [address] [address] Eosinophil, Absolute 0.2 10 3/mcL Normal 0.0-0.4 [facility] ([place]) Comment on above: Performed By: #### C BC, ADIFF, ANEU, FERR, FE, CMP, GFR, LIPID #### [address] [address] #### B12 #### [address] [address] Eosinophils/100 WBC (Bld) 3.2 % Normal 0.0-7.0 [facility] ([place]) Comment on above: Performed By: #### C BC, ADIFF, ANEU, FERR, FE, CMP, GFR, LIPID #### [address] [address] #### B12 #### [address] [address] Lymphocyte, Absolute 0.9 10 3/mcL Normal 0.8-3.9 [facility] ([place]) Comment on above: Performed By: #### C BC, ADIFF, ANEU, FERR, FE, CMP, GFR, LIPID #### [place] [address] #### B12 #### [address] [address] Lymphocytes/100 WBC (Bld) 12.6 % Normal 10.0-50.0 [facility] ([place]) Comment on above: Performed By: #### C BC, ADIFF, ANEU, FERR, FE, CMP, GFR, LIPID #### [place] [address] #### B12 #### [address] [address] Monocyte, Absolute 0.8 10 3/mcL Normal 0.2-1.0 [facility] ([place]) Comment on above: Performed By: #### C BC, ADIFF, ANEU, FERR, FE, CMP, GFR, LIPID #### [place] [address] #### B12 #### [address] [address] Monocytes/100 WBC (Bld) 10.9 % Normal 1.7-13.0 [facility] ([place]) Comment on above: Performed By: #### C BC, ADIFF, ANEU, FERR, FE, CMP, GFR, LIPID #### [place] [address] #### B12 #### [address] [address] Neutrophils/100 WBC (Bld) 72.8 % Normal 37.0-80.0 [facility] ([place]) Comment on above: Performed By: #### C BC, ADIFF, ANEU, FERR, FE, CMP, GFR, LIPID #### [place] [address] #### B12 #### [address] [address] .GFRon 02-19-2024 GFR 99 ml/min/1.73sqm Normal [facility] ([place]) Comment on above: Result Comment: GFR [...] C BC, ADIFF, ANEU, BMP, GFR #### [address] [address] GFR Non- 82 ml/min/1.73sqm Normal [facility] ([place]) Comment on above: Result Comment: GFR Population [...] C BC, ADIFF, ANEU, BMP, GFR #### [address] [address] .NEUABSon 02-19-2024 Neutrophil, Absolute 5.1 10 3/mcL Normal 2.9-6.2 [facility] ([place]) Comment on above: Performed By: #### C BC, ADIFF, ANEU, FERR, FE, CMP, GFR, LIPID #### [address] [address] #### B12 #### [address] [address] CBCon 02-19-2024 Erythrocyte distribution width (RBC) [Ratio] 14.3 % Normal 11.5-14.5 [facility] ([place]) Comment on above: Performed By: #### C BC, ADIFF, ANEU, FERR, FE, CMP, GFR, LIPID #### [place] [address] #### B12 #### [place] [address] Hematocrit (Bld) [Volume fraction] 37.8 % Low 42.0-52.0 [facility] ([place]) Comment on above: Performed By: #### C BC, ADIFF, ANEU, FERR, FE, CMP, GFR, LIPID #### [place] [address] #### B12 #### [place] [address] Hgb 13.1 G/dL Low 14.0-18.0 [facility] ([place]) Comment on above: Performed By: #### C BC, ADIFF, ANEU, FERR, FE, CMP, GFR, LIPID #### [place] [address] #### B12 #### [place] [address] MCH (RBC) [Entitic mass] 32.6 pg High 27.0-31.2 [facility] ([place]) Comment on above: Performed By: #### C BC, ADIFF, ANEU, FERR, FE, CMP, GFR, LIPID #### [place] [address] #### B12 #### [place] [address] MCHC 34.7 G/dL Normal 31.8-35.4 [facility] ([place]) Comment on above: Performed By: #### C BC, ADIFF, ANEU, FERR, FE, CMP, GFR, LIPID #### [place] [address] #### B12 #### [place] [address] MCV (RBC) [Entitic vol] 94.1 fL High 80.0-94.0 [facility] ([place]) Comment on above: Performed By: #### C BC, ADIFF, ANEU, FERR, FE, CMP, GFR, LIPID #### [place] [address] #### B12 #### [place] [address] Platelet 233 10 3/mcL Normal 130-400 [facility] ([place]) Comment on above: Performed By: #### C BC, ADIFF, ANEU, FERR, FE, CMP, GFR, LIPID #### [place] [address] #### B12 #### [place] [address] Platelet mean volume (Bld) [Entitic vol] 6.9 fL Low 7.4-10.4 [facility] ([place]) Comment on above: Performed By: #### C BC, ADIFF, ANEU, FERR, FE, CMP, GFR, LIPID #### [place] [address] #### B12 #### [place] [address] RBC 4.02 10 6/mcL Low 4.04-6.13 [facility] ([place]) Comment on above: Performed By: #### C BC, ADIFF, ANEU, FERR, FE, CMP, GFR, LIPID #### [place] [address] #### B12 #### [place] [address] WBC 7.0 10 3/mcL Normal 4.6-10.8 [facility] ([place]) Comment on above: Performed By: #### C BC, ADIFF, ANEU, FERR, FE, CMP, GFR, LIPID #### [place] [address] #### B12 #### [place] [address] CMPon 02-19-2024 Albumin Level 3.6 G/dL Normal 3.4-4.8 [facility] ([place]) Comment on above: Performed By: #### C BC, ADIFF, ANEU, BMP, GFR #### [address] [address] Albumin/Globulin [Mass ratio] 1.2 {ratio} Normal 1.1-2.5 [facility] ([place]) Comment on above: Performed By: #### C BC, ADIFF, ANEU, BMP, GFR #### [address] [address] ALP [Catalytic activity/Vol] 102 U/L Normal 40-135 [facility] ([place]) Comment on above: Performed By: #### C BC, ADIFF, ANEU, BMP, GFR #### [address] [address] ALT [Catalytic activity/Vol] 24 U/L Normal 16-63 [facility] ([place]) Comment on above: Performed By: #### C BC, ADIFF, ANEU, BMP, GFR #### [address] [address] AST [Catalytic activity/Vol] 14 U/L Normal 10-40 [facility] ([place]) Comment on above: Performed By: #### C BC, ADIFF, ANEU, BMP, GFR #### [address] [address] Bili Total 0.5 mg/dL Normal 0.2-1.0 [facility] ([place]) Comment on above: Result Comment: Use of this assay is not recommended for patients undergoing treatment with eltrombopag due to the potential for falsely elevated results. Performed By: #### C BC, ADIFF, ANEU, BMP, GFR #### [address] [address] BUN/Creatinine Ratio 23 ratio Normal 7-27 [facility] ([place]) Comment on above: Performed By: #### C BC, ADIFF, ANEU, BMP, GFR #### [address] [address] Calcium [Mass/Vol] 8.7 mg/dL Normal 8.4-10.2 [facility] ([place]) Comment on above: Performed By: #### C BC, ADIFF, ANEU, BMP, GFR #### [address] [address] Chloride [Moles/Vol] 104 mmol/L Normal 98-107 [facility] ([place]) Comment on above: Performed By: #### C BC, ADIFF, ANEU, BMP, GFR #### [address] [address] CO2 [Moles/Vol] 29 mmol/L Normal 23-31 [facility] ([place]) Comment on above: Performed By: #### C BC, ADIFF, ANEU, BMP, GFR #### [address] [address] Creatinine [Mass/Vol] 0.90 mg/dL Normal 0.70-1.30 [facility] ([place]) Comment on above: Performed By: #### C BC, ADIFF, ANEU, BMP, GFR #### [address] [address] Electrolyte Balance 10.0 mEq/L Normal 4.0-15.0 [facility] ([place]) Comment on above: Performed By: #### C BC, ADIFF, ANEU, BMP, GFR #### [address] [address] Globulin 2.9 G/dL Normal [facility] ([place]) Comment on above: Performed By: #### C BC, ADIFF, ANEU, BMP, GFR #### [address] [address] Glucose [Mass/Vol] 105 mg/dL Normal 83-110 [facility] ([place]) Comment on above: Performed By: #### C BC, ADIFF, ANEU, BMP, GFR #### [address] [address] Potassium [Moles/Vol] 4.1 mmol/L Normal 3.5-5.1 [facility] ([place]) Comment on above: Performed By: #### C BC, ADIFF, ANEU, BMP, GFR #### [address] [address] Sodium [Moles/Vol] 143 mmol/L Normal 136-145 [facility] ([place]) Comment on above: Performed By: #### C BC, ADIFF, ANEU, BMP, GFR #### [address] [address] Total Protein 6.5 G/dL Normal 6.4-8.2 [facility] ([place]) Comment on above: Performed By: #### C BC, ADIFF, ANEU, BMP, GFR #### [address] [address] Urea nitrogen [Mass/Vol] 21 mg/dL High 7-18 [facility] ([place]) Comment on above: Performed By: #### C BC, ADIFF, ANEU, BMP, GFR #### [address] [address] FEon 02-19-2024 Iron [Mass/Vol] 79 ug/dL Normal 65-175 [facility] ([place]) Comment on above: Performed By: #### C BC, ADIFF, ANEU, BMP, GFR #### [address] [address] [place]ino 02-19-2024 Ferritin [Mass/Vol] 511.0 ng/mL High 26.0-388.0 [facility] ([place]) Comment on above: Performed By: #### C BC, ADIFF, ANEU, FERR, FE, CMP, GFR, LIPID #### [address] [address] #### B12 #### [place] [address] LIPIDon 02-19-2024 Cholesterol [Mass/Vol] 184 mg/dL Normal 0-200 [facility] ([place]) Comment on above: Result Comment: Chol esterol Reference Interval: Less than 200 Desirable 200-239 Borderline high risk 240 and above High risk Performed By: #### C BC, ADIFF, ANEU, BMP, GFR #### [address] [address] Cholesterol in HDL [Mass/Vol] 44 mg/dL Normal 40-60 [facility] ([place]) Comment on above: Performed By: #### C BC, ADIFF, ANEU, BMP, GFR #### [place] [id number] [place], [place] [address] Cholesterol in LDL [Mass/Vol] 125 mg/dL Normal 0-130 [facility] ([place]) Comment on above: Performed By: #### C BC, ADIFF, ANEU, BMP, GFR #### [place] [id number] [place], [place] [address] Triglyceride [Mass/Vol] 75 mg/dL Normal 0-150 [facility] ([place]) Comment on above: Result Comment: Trig lyceride Reference Interval: Less than 150 Normal 150-199 Borderline high risk 200-499 High risk 500 or higher Very high risk Performed By: #### C BC, ADIFF, ANEU, BMP, GFR #### [place] [id number] [place], [place] [address] MRI SPINE LUMBAR W/O CONTRAS Ton 11-18-2023 [...] 11/18/2023 3:56:09 PM Ordering Provider: KATHERINE Smallwood [facility] ([place]) .Auto Diffon 10-20-2023 Basophil, Absolute 0.0 10 3/mcL Normal 0.0-0.2 [facility] ([place]) Comment on above: Performed By: #### C BC, ADIFF, ANEU, BMP, GFR #### [address] [address] Basophils/100 WBC (Bld) 0.6 % Normal 0.0-2.5 [facility] ([place]) Comment on above: Performed By: #### C BC, ADIFF, ANEU, BMP, GFR #### [address] [address] Eosinophil, Absolute 0.5 10 3/mcL High 0.0-0.4 [facility] ([place]) Comment on above: Performed By: #### C BC, ADIFF, ANEU, BMP, GFR #### [address] [address] Eosinophils/100 WBC (Bld) 7.2 % High 0.0-7.0 [facility] ([place]) Comment on above: Performed By: #### C BC, ADIFF, ANEU, BMP, GFR #### [address] [address] Lymphocyte, Absolute 1.0 10 3/mcL Normal 0.8-3.9 [facility] ([place]) Comment on above: Performed By: #### C BC, ADIFF, ANEU, BMP, GFR #### [address] [address] Lymphocytes/100 WBC (Bld) 14.0 % Normal 10.0-50.0 [facility] ([place]) Comment on above: Performed By: #### C BC, ADIFF, ANEU, BMP, GFR #### [address] [address] Monocyte, Absolute 0.7 10 3/mcL Normal 0.2-1.0 [facility] ([place]) Comment on above: Performed By: #### C BC, ADIFF, ANEU, BMP, GFR #### [address] [address] Monocytes/100 WBC (Bld) 9.8 % Normal 1.7-13.0 [facility] ([place]) Comment on above: Performed By: #### C BC, ADIFF, ANEU, BMP, GFR #### [address] [address] Neutrophils/100 WBC (Bld) 68.4 % Normal 37.0-80.0 [facility] ([place]) Comment on above: Performed By: #### C BC, ADIFF, ANEU, BMP, GFR #### [address] [address] .GFRon 10-20-2023 GFR 88 ml/min/1.73sqm Normal [facility] ([place]) Comment on above: Result Comment: GFR Population [...] C BC, ADIFF, ANEU, BMP, GFR #### [address] [address] GFR Non- 72 ml/min/1.73sqm Normal [facility] ([place]) Comment on above: Result Comment: GFR Population [...] C BC, ADIFF, ANEU, BMP, GFR #### [address] [address] .NEUABSon 10-20-2023 Neutrophil, Absolute 4.8 10 3/mcL Normal 2.9-6.2 [facility] ([place]) Comment on above: Performed By: #### C BC, ADIFF, ANEU, BMP, GFR #### [address] [address] CBCon 10-20-2023 Erythrocyte distribution width (RBC) [Ratio] 15.2 % High 11.5-14.5 [facility] ([place]) Comment on above: Performed By: #### C BC, ADIFF, ANEU, BMP, GFR #### [address] [address] Hematocrit (Bld) [Volume fraction] 41.4 % Low 42.0-52.0 [facility] ([place]) Comment on above: Performed By: #### C BC, ADIFF, ANEU, BMP, GFR #### [address] [address] Hgb 14.3 G/dL Normal 14.0-18.0 [facility] ([place]) Comment on above: Performed By: #### C BC, ADIFF, ANEU, BMP, GFR #### [address] [address] MCH (RBC) [Entitic mass] 31.5 pg High 27.0-31.2 [facility] ([place]) Comment on above: Performed By: #### C BC, ADIFF, ANEU, BMP, GFR #### [place] [address] MCHC 34.4 G/dL Normal 31.8-35.4 [facility] ([place]) Comment on above: Performed By: #### C BC, ADIFF, ANEU, BMP, GFR #### [place] [address] MCV (RBC) [Entitic vol] 91.5 fL Normal 80.0-94.0 [facility] ([place]) Comment on above: Performed By: #### C BC, ADIFF, ANEU, BMP, GFR #### [address] [address] Platelet 217 10 3/mcL Normal 130-400 [facility] ([place]) Comment on above: Performed By: #### C BC, ADIFF, ANEU, BMP, GFR #### [address] [address] Platelet mean volume (Bld) [Entitic vol] 6.9 fL Low 7.4-10.4 [facility] ([place]) Comment on above: Performed By: #### C BC, ADIFF, ANEU, BMP, GFR #### [place] [id number] RBC 4.53 10 6/mcL Normal 4.04-6.13 [facility] ([place]) Comment on above: Performed By: #### C BC, ADIFF, ANEU, BMP, GFR #### [address] [address] WBC 7.1 10 3/mcL Normal 4.6-10.8 [facility] ([place]) Comment on above: Performed By: #### C BC, ADIFF, ANEU, BMP, GFR #### [address] [address] CMPon 10-20-2023 Albumin Level 3.6 G/dL Normal 3.4-4.8 [facility] ([place]) Comment on above: Performed By: #### C BC, ADIFF, ANEU, BMP, GFR #### [address] [address] Albumin/Globulin [Mass ratio] 1.2 {ratio} Normal 1.1-2.5 [facility] ([place]) Comment on above: Performed By: #### C BC, ADIFF, ANEU, BMP, GFR #### [address] [address] ALP [Catalytic activity/Vol] 94 U/L Normal 40-135 [facility] ([place]) Comment on above: Performed By: #### C BC, ADIFF, ANEU, BMP, GFR #### [address] [address] ALT [Catalytic activity/Vol] 34 U/L Normal 16-63 [facility] ([place]) Comment on above: Performed By: #### C BC, ADIFF, ANEU, BMP, GFR #### [address] [address] AST [Catalytic activity/Vol] 24 U/L Normal 10-40 [facility] ([place]) Comment on above: Performed By: #### C BC, ADIFF, ANEU, BMP, GFR #### [address] [address] Bili Total 0.4 mg/dL Normal 0.2-1.0 [facility] ([place]) Comment on above: Result Comment: Use of this assay is not recommended for patients undergoing treatment with eltrombopag due to the potential for falsely elevated results. Performed By: #### C BC, ADIFF, ANEU, BMP, GFR #### [address] [address] BUN/Creatinine Ratio 17 ratio Normal 7-27 [facility] ([place]) Comment on above: Performed By: #### C BC, ADIFF, ANEU, BMP, GFR #### [address] [address] Calcium [Mass/Vol] 8.8 mg/dL Normal 8.4-10.2 [facility] ([place]) Comment on above: Performed By: #### C BC, ADIFF, ANEU, BMP, GFR #### [place] [address] Chloride [Moles/Vol] 106 mmol/L Normal 98-107 [facility] ([place]) Comment on above: Performed By: #### C BC, ADIFF, ANEU, BMP, GFR #### [place] [address] CO2 [Moles/Vol] 32 mmol/L High 23-31 [facility] ([place]) Comment on above: Performed By: #### C BC, ADIFF, ANEU, BMP, GFR #### [place] [id number] Creatinine [Mass/Vol] 1.00 mg/dL Normal 0.70-1.30 [facility] ([place]) Comment on above: Performed By: #### C BC, ADIFF, ANEU, BMP, GFR #### [address] [address] Electrolyte Balance 5.0 mEq/L Normal 4.0-15.0 [facility] [facility] ([place]) Comment on above: Performed By: #### C BC, ADIFF, ANEU, BMP, GFR #### [place] [address] Globulin 3.0 G/dL Normal [facility] ([place]) Comment on above: Performed By: #### C BC, ADIFF, ANEU, BMP, GFR #### [place] [address] Glucose [Mass/Vol] 120 mg/dL High 83-110 [facility] ([place]) Comment on above: Performed By: #### C BC, ADIFF, ANEU, BMP, GFR #### [address] [address] Potassium [Moles/Vol] 4.5 mmol/L Normal 3.5-5.1 [facility] ([place]) Comment on above: Performed By: #### C BC, ADIFF, ANEU, BMP, GFR #### [address] [address] Sodium [Moles/Vol] 143 mmol/L Normal 136-145 [facility] ([place]) Comment on above: Performed By: #### C BC, ADIFF, ANEU, BMP, GFR #### [address] [address] Total Protein 6.6 G/dL Normal 6.4-8.2 [facility] ([place]) Comment on above: Performed By: #### C BC, ADIFF, ANEU, BMP, GFR #### [address] [address] Urea nitrogen [Mass/Vol] 17 mg/dL Normal 7-18 [facility] ([place]) Comment on above: Performed By: #### C BC, ADIFF, ANEU, BMP, GFR #### [address] [address] LABORATORYOrdered By: SYSTEM SYSTEM on 10-20-2023 Albumin [...] 10-20-2023 Cholesterol [Mass/Vol] 192 mg/dL Normal 0-200 [facility] ([place]) Comment on above: Result Comment: Chol esterol Reference Interval: Less than 200 Desirable 200-239 Borderline high risk 240 and above High risk Performed By: #### C BC, ADIFF, ANEU, BMP, GFR #### [address] [address] Cholesterol in HDL [Mass/Vol] 39 mg/dL Low 40-60 [facility] ([place]) Comment on above: Performed By: #### C BC, ADIFF, ANEU, BMP, GFR #### [address] [address] Cholesterol in LDL [Mass/Vol] 136 mg/dL High 0-130 [facility] ([place]) Comment on above: Performed By: #### C BC, ADIFF, ANEU, BMP, GFR #### [place] [id number] [place], [place] [address] Triglyceride [Mass/Vol] 85 mg/dL Normal 0-150 [facility] ([place]) Comment on above: Result Comment: Trig lyceride Reference Interval: Less than 150 Normal 150-199 Borderline high risk 200-499 High risk 500 or higher Very high risk Performed By: #### C BC, ADIFF, ANEU, BMP, GFR #### [address] [address] PSAon 10-20-2023 Prostate Specific Antigen 0.81 ng/mL Normal 0.00-4.00 [facility] ([place]) Comment on above: Performed By: #### C BC, ADIFF, ANEU, BMP, GFR #### [address] [address] [address] SPINE LUMBAR W/O CONTRAST on 08-11-2023 [...] 08/11/2023 7:30:27 PM Ordering Provider: VANESSA JAIMES [facility] ([place]) LABORATORYOrdered By: SYSTEM SYSTEM on 04-17-2023 Albumin [...] 175 mcg/dL AO ADM SS LABORATORYOrdered By: [employer] SYSTEM on 12-03-2022 Albumin BCP dye [Mass/Vol] [...] 13:28-0400 Body temperature 97.3 [degF] Katherine Brand NP-C Work Phone: [facility] 03-27-2025 13:28-0400 Diastolic blood pressure 71 mm[Hg] Katherine Brand MANAGER PRIVACY-C Work Phone: [facility] 03-27-2025 13:28-0400 Heart rate 95 /min Katherine Brand MANAGER PRIVACY-C Work Phone: [facility] 03-27-2025 13:28-0400 Inhaled oxygen flow rate 2 L/min Katherine Brand NP-C Work Phone: [facility] 03-27-2025 13:28-0400 Respiratory rate 18 /min Katherine Brand MANAGER PRIVACY-C Work Phone: [facility] 03-27-2025 13:28-0400 SaO2% (BldA) [Mass fraction] 96 % Katherine Brand MANAGER PRIVACY-C Work Phone: [facility] 03-27-2025 13:28-0400 Systolic blood pressure 127 mm[Hg] Katherine Brand MANAGER PRIVACY-C Work Phone: [facility] 03-27-2025 02:42-0400 Body mass index (BMI) [Ratio] 25.5 kg/m2 Katherine Brand MANAGER PRIVACY-C Work Phone: [facility] 03-27-2025 02:42-0400 Body weight 74 kg Katherine rBand MANAGER PRIVACY-C Work Phone: [facility] 03-24-2025 11:16-0400 Body height 170.18 cm Katherine Brand MANAGER PRIVACY-C Work Phone: [facility] 03-23-2025 22:00-0400 Diastolic blood pressure 64 mm[Hg] Katherine Brand MANAGER PRIVACY-C Work Phone: [facility] 03-23-2025 22:00-0400 Heart rate 102 /min Katherine Brand MANAGER PRIVACY-C Work Phone: [facility] 03-23-2025 22:00-0400 Respiratory rate 21 /min Katherine Brand MANAGER PRIVACY-C Work Phone: [facility] 03-23-2025 22:00-0400 SaO2% (BldA) [Mass fraction] 94 % Katherine Brand MANAGER PRIVACY-C Work Phone: [facility] 03-23-2025 22:00-0400 Systolic blood pressure 117 mm[Hg] Katherine Brand MANAGER PRIVACY-C Work Phone: [facility] 03-23-2025 20:00-0400 Body temperature 97.9 [degF] Katherine Brnad MANAGER PRIVACY-C Work Phone: [facility] 03-23-2025 16:53-0400 Body mass index (BMI) [Ratio] 27.4 kg/m2 Katherine Ayalamer MANAGER PRIVACY-C Work Phone: [facility] 03-23-2025 16:53-0400 Body weight 84.3 kg Katherine Ayalamer MANAGER PRIVACY-C Work Phone: [facility] 03-23-2025 15:59-0400 Body height 175.26 cm Katherine Ayalamer MANAGER PRIVACY-C Work Phone: [facility] 08-18-2024 15:56-0500 Diastolic Blood Pressure Non-Invasive 80 mm[Hg] SIERRA LOT DO [facility] 08-18-2024 15:56-0500 Heart rate 88 /min SIERRA FROMMELT DO [facility] 08-18-2024 15:56-0500 Respiratory rate 16 /min SIERRA FROMMELT DO [facility] 08-18-2024 15:56-0500 Systolic Blood Pressure Non-Invasive 145 mm[Hg] SIERRA FROMMELT DO [facility] 08-18-2024 14:28-0500 Body temperature 97.52 [degF] SIERRA FROMMELT DO [facility] 08-18-2024 14:28-0500 Body weight 77 kg SIERRA FROMMELT DO [facility] 08-18-2024 14:28-0500 Diastolic Blood Pressure Non-Invasive 74 mm[Hg] SIERRA FROMMELT DO [facility] 08-18-2024 14:28-0500 Heart rate 93 /min SIERRA FROMMELT DO [facility] 08-18-2024 14:28-0500 Respiratory rate 16 /min SIERRA BLACK DO [facility] 08-18-2024 14:28-0500 Systolic Blood Pressure Non-Invasive 139 mm[Hg] SIERRA BLACK DO [facility] 05-01-2024 06:47-0400 Body temperature 97.7 [degF] FORREST CAO PROOF PRESS OPERATOR-MANUFACTURER [facility] 05-01-2024 06:47-0400 Diastolic Blood Pressure Non-Invasive 89 mm[Hg] FORREST CAO PROOF PRESS OPERATOR-MANUFACTURER [facility] 05-01-2024 06:47-0400 Heart rate 72 /min FORREST CAO PROOF PRESS OPERATOR-MANUFACTURER [facility] 05-01-2024 06:47-0400 Reason For Taking VItal Signs FORREST CAO PROOF PRESS OPERATOR-MANUFACTURER [facility] 05-01-2024 06:47-0400 Systolic Blood Pressure Non-Invasive 156 mm[Hg] FORREST CAO PROOF PRESS OPERATOR-MANUFACTURER [facility] 04-30-2024 19:14-0400 Body temperature 97.88 [degF] FORREST CAO PROOF PRESS OPERATOR-MANUFACTURER [facility] 04-30-2024 19:14-0400 Diastolic Blood Pressure Non-Invasive 84 mm[Hg] FORREST CAO PROOF PRESS OPERATOR-MANUFACTURER [facility] 04-30-2024 19:14-0400 Heart rate 92 /min FORREST CAO PROOF PRESS OPERATOR-MANUFACTURER [facility] 04-30-2024 19:14-0400 Reason For Taking VItal Signs FORREST CAO PROOF PRESS OPERATOR-MANUFACTURER [facility] 04-30-2024 19:14-0400 Systolic Blood Pressure Non-Invasive 158 mm[Hg] FORREST CAO PROOF PRESS OPERATOR-MANUFACTURER [facility] 04-30-2024 11:41-0400 Heart rate 65 /min FORREST RUGGIEROERWIN PROOF PRESS OPERATOR-MANUFACTURER [facility] 04-30-2024 07:31-0400 Body temperature 98.24 [degF] FORREST CAO PROOF PRESS OPERATOR-MANUFACTURER [facility] 04-30-2024 07:31-0400 Diastolic Blood Pressure Non-Invasive 90 mm[Hg] FORREST CAO PROOF PRESS OPERATOR-MANUFACTURER [facility] 04-30-2024 07:31-0400 Heart rate 87 /min FORREST CAO PROOF PRESS OPERATOR-MANUFACTURER [facility] 04-30-2024 07:31-0400 Reason For Taking VItal Signs FORREST CAO PROOF PRESS OPERATOR-MANUFACTURER [facility] 04-30-2024 07:31-0400 Respiratory rate 18 /min FORREST RUGGIEROERWIN PROOF PRESS OPERATOR-MANUFACTURER [facility] 04-30-2024 07:31-0400 Systolic Blood Pressure Non-Invasive 175 mm[Hg] FORREST CAO PROOF PRESS OPERATOR-MANUFACTURER [facility] 04-29-2024 18:38-0400 Respiratory rate 18 /min FORREST CAO PROOF PRESS OPERATOR-MANUFACTURER [facility] 04-29-2024 11:27-0400 Respiratory rate 18 /min FORREST CAO PROOF PRESS OPERATOR-MANUFACTURER [facility] 04-26-2024 19:20-0400 Heart rate 95 /min FORREST CAO PROOF PRESS OPERATOR-MANUFACTURER [facility] 04-26-2024 13:56-0400 Body height 167.6 cm FORREST MARCANOKIMBERLEEERWIN PROOF PRESS OPERATOR-MANUFACTURER [facility] 04-26-2024 13:56-0400 Body weight 84 kg FORREST CAO PROOF PRESS OPERATOR-MANUFACTURER [facility] 04-26-2024 13:56-0400 Body weight 29.9 kg/m2 FORREST CAO PROOF PRESS OPERATOR-MANUFACTURER [facility] 04-26-2024 10:52-0400 Blood Pressure Location OSMEL BURRELL PROOF PRESS OPERATOR-MANUFACTURER [facility] 04-26-2024 10:52-0400 Blood Pressure Method OSMEL BURRELL PROOF PRESS OPERATOR-MANUFACTURER [facility] 04-26-2024 10:52-0400 Respiratory rate 18 /min OSMEL BURRELL PROOF PRESS OPERATOR-MANUFACTURER [facility] 04-26-2024 10:51-0400 Body temperature 97.7 [degF] OSMEL BURRELL PROOF PRESS OPERATOR-MANUFACTURER [facility] 04-26-2024 10:51-0400 Diastolic Blood Pressure Non-Invasive 87 mm[Hg] OSMEL BURRELL PROOF PRESS OPERATOR-MANUFACTURER [facility] 04-26-2024 10:51-0400 Heart rate 90 /min OSMEL BURRELL PROOF PRESS OPERATOR-MANUFACTURER [facility] 04-26-2024 10:51-0400 Systolic Blood Pressure Non-Invasive 142 mm[Hg] OSMEL BURRELL PROOF PRESS OPERATOR-MANUFACTURER [facility] 08-26-2024 10:07-0400 Heart rate 86 /min OSMEL SHRUTHIDarronCOOPER PROOF PRESS OPERATOR-MANUFACTURER [facility] 04-26-2024 10:07-0400 Respiratory rate 18 /min OSMEL HAIRCOOPER PROOF PRESS OPERATOR-MANUFACTURER [facility] 04-26-2024 06:35-0400 Body temperature 98.06 [degF] OSMEL SHRUTHIDarronCOOPER PROOF PRESS OPERATOR-MANUFACTURER [facility] 04-26-2024 06:35-0400 Diastolic Blood Pressure Non-Invasive 71 mm[Hg] OSMEL SHRUTHIDarronCOOPER PROOF PRESS OPERATOR-MANUFACTURER [facility] 04-26-2024 06:35-0400 Heart rate 94 /min OSMEL SHRUTHIDarronCOOPER PROOF PRESS OPERATOR-MANUFACTURER [facility] 04-26-2024 06:35-0400 Reason For Taking VItal Signs OSMEL GARCIAYDarronCOOPER PROOF PRESS OPERATOR-MANUFACTURER [facility] 04-26-2024 06:35-0400 Respiratory rate 18 /min OSMEL HAIRCOOPER PROOF PRESS OPERATOR-MANUFACTURER [facility] 04-26-2024 06:35-0400 Systolic Blood Pressure Non-Invasive 157 mm[Hg] OSMEL BURRELL PROOF PRESS OPERATOR-MANUFACTURER [facility] 04-26-2024 06:14-0400 Heart rate 87 /min OSMEL SHRUTHIDarronCOOPER PROOF PRESS OPERATOR-MANUFACTURER [facility] 04-26-2024 03:04-0400 Body temperature 97.88 [degF] OSMEL SHRUTHIDarronCOOPER PROOF PRESS OPERATOR-MANUFACTURER [facility] 04-26-2024 03:04-0400 Diastolic Blood Pressure Non-Invasive 89 mm[Hg] OSMEL BURRELL PROOF PRESS OPERATOR-MANUFACTURER [facility] 04-26-2024 03:04-0400 Heart rate 93 /min OSMEL HAWKINS-COOPER PROOF PRESS OPERATOR-MANUFACTURER [facility] 04-26-2024 03:04-0400 Reason For Taking VItal Signs OSMEL BURRELL PROOF PRESS OPERATOR-MANUFACTURER [facility] 04-26-2024 03:04-0400 Systolic Blood Pressure Non-Invasive 168 mm[Hg] OSMEL HAWKINS-COOPER PROOF PRESS OPERATOR-MANUFACTURER [facility] 04-25-2024 23:26-0400 Reason For Taking VItal Signs OSMEL BURRELL PROOF PRESS OPERATOR-MANUFACTURER [facility] 04-24-2024 15:40-0400 Heart rate 77 /min OSMEL BURRELL PROOF PRESS OPERATOR-MANUFACTURER [facility] 04-24-2024 06:40-0400 Heart rate 90 /min OSMEL HAWKINS-COOPER PROOF PRESS OPERATOR-MANUFACTURER [facility] 04-22-2024 19:16-0400 Blood Pressure Cuff Size OSMEL BURRELL PROOF PRESS OPERATOR-MANUFACTURER [facility] 04-22-2024 19:16-0400 Blood Pressure Location OSMEL BURRELL PROOF PRESS OPERATOR-MANUFACTURER [facility] 04-22-2024 19:16-0400 Blood Pressure Method OSMEL HAWKINS-COOPER PROOF PRESS OPERATOR-MANUFACTURER [facility] 04-22-2024 18:00-0400 Body height 175.3 cm OSMEL BURRELL PROOF PRESS OPERATOR-MANUFACTURER [facility] 04-22-2024 18:00-0400 Body weight 87.5 kg OSMEL HAWKINSDarronCOOPER PROOF PRESS OPERATOR-MANUFACTURER [facility] 10-02-2023 19:44-0500 Blood Pressure Cuff Size DR NAPOLEON RAWLS MD [facility] 10-02-2023 19:44-[address] NAPOLEON RAWLS MD [facility] 10-02-2023 19:44-[address] NAPOLEON RAWLS MD [facility] 10-02-2023 19:44-0500 Body height 175.[address] NAPOLEON RAWLS MD [facility] 10-02-2023 19:44-0500 Body temperature 96.98 [degF] DR NAPOLEON RAWLS MD [facility] 10-02-2023 19:44-0500 Body weight 87.[address] NAPOLEON RAWLS MD [facility] 10-02-2023 19:44-0500 Diastolic Blood Pressure Non-Invasive 91 mm[Hg] DR NAPOLEON RAWLS MD [facility] 10-02-2023 19:44-0500 Heart rate 90 /min DR NAPOLEON RAWLS MD [facility] 10-02-2023 19:44-0500 Reason For Taking VItal Signs DR NAPOLEON RAWLS MD [facility] 10-02-2023 19:44-0500 Respiratory rate 20 /min DR NAPOLEON RAWLS MD [facility] 10-02-2023 19:44-0500 Systolic Blood Pressure Non-Invasive 170 mm[Hg] DR NAPOLEON RAWLS MD [facility] Encounters Encounter Date Encounter Type Care Provider Facility Start: 03-27-2025 Evaluation and management of inpatient Sony Terrence Gould Facility:[facility] Start: 03-27-2025 Non-patient / Non-visit Dr. Katarina Fabian MD -[facility] Work Phone: Start: 03-26-2025 Non-patient / Non-visit Dr. Katarina Fabian MD -[facility] Work Phone: Start: 03-25-2025 Non-patient / Non-visit Dr. Zandra bucio MD -[facility] Start: 03-25-2025 Non-patient / Non-visit Dr. Katarina Fabian MD -[facility] Work Phone: Start: 03-24-2025 Non-patient / Non-visit Dr. Katarina Fabian MD -[facility] Work Phone: Start: 03-24-2025 ambulatory Shady Loving Fa cility:[facility] Start: 03-24-2025 Non-patient / Non-visit Dr. Ritchie Loving MD -[facility] Start: 03-23-2025 ambulatory Zandra Freire Facility:[facility] Start: 03-23-2025 End: 03-27-2025 Evaluation and management of inpatient Dr. Merry Pham MD -[facility] Work Phone: Start: 03-10-2025 End: 03-10-2025 ambulatory KATHERINE BRAND PROOF PRESS OPERATOR-MANUFACTURER Facility:[facility] Start: 03-10-2025 End: 03-10-2025 Patient encounter procedure KATHERINE BRAND PROOF PRESS OPERATOR-MANUFACTURER [facility] Start: 03-09-2025 End: 03-09-2025 ambulatory KATHERINE BRAND PROOF PRESS OPERATOR-MANUFACTURER Facility:[facility] Start: 03-09-2025 End: 03-09-2025 Patient encounter procedure KATHERINE Jamir SUNDAY PROOF PRESS OPERATOR-MANUFACTURER [facility] Start: 02-22-2025 End: 02-24-2025 Evaluation and management of inpatient OSMEL BURRELL PROOF PRESS OPERATOR-MANUFACTURER [facility] Start: 11-09-2024 End: 11-09-2024 ambulatory Katherinewendi Brand MANAGER PRIVACY Facility:[facility] Start: 10-21-2024 End: 10-21-2024 ambulatory Katherine Sunday MANAGER PRIVACY Facility:[facility] Start: 10-08-2024 End: 10-08-2024 ambulatory KATHERINE S SUNDAY PROOF PRESS OPERATOR-MANUFACTURER Facility:[facility] Start: 10-08-2024 End: 10-08-2024 Patient encounter procedure AMBER GREENWOOD MD [facility] Start: 09-23-2024 End: 09-23-2024 ambulatory Katherinewendi Brand MANAGER PRIVACY Facility:[facility] Start: 08-18-2024 End: 08-18-2024 Emergency department patient visit SIERRA TERESITALourdes APARICIO [facility] Start: 08-05-2024 End: 08-09-2024 ambulatory KATHERINE S SUNDAY PROOF PRESS OPERATOR-MANUFACTURER Facility:[facility] Start: 08-05-2024 End: 08-09-2024 Outreach Lab KATHERINE S SUNDAY PROOF PRESS OPERATOR-MANUFACTURER [facility] Start: 08-03-2024 End: 08-03-2024 ambulatory KATHERINE S SUNDAY PROOF PRESS OPERATOR-MANUFACTURER Facility:[facility] Start: 08-03-2024 End: 08-03-2024 Patient encounter procedure KATHERINE Bowie SUNDAY PROOF PRESS OPERATOR-MANUFACTURER [facility] Start: 07-02-2024 ambulatory KATHERINE S WITM ER PROOF PRESS OPERATOR-MANUFACTURER Facility:[facility] Start: 06-11-2024 End: 06-11-2024 ambulatory KATHERINE BRAND PROOF PRESS OPERATOR-MANUFACTURER Facility:[facility] Start: 06-11-2024 End: 06-11-2024 Patient encounter procedure KATHERINE BRAND PROOF PRESS OPERATOR-MANUFACTURER [facility] Start: 06-03-2024 End: 06-03-2024 ambulatory KATHERINE BRAND PROOF PRESS OPERATOR-MANUFACTURER Facility:[facility] Start: 06-03-2024 End: 06-03-2024 Patient encounter procedure KATHERINE BRAND PROOF PRESS OPERATOR-MANUFACTURER [facility] Start: 05-19-2024 End: 05-23-2024 ambulatory KATHERINE BRAND PROOF PRESS OPERATOR-MANUFACTURER Facility:[facility] Start: 05-19-2024 End: 05-23-2024 Outreach Lab DANY BLANCONAHOMY PROOF PRESS OPERATOR-MANUFACTURER [facility] Start: 05-19-2024 End: 05-19-2024 AMB External Visit DANY BLANCONAHOMY PROOF PRESS OPERATOR-MANUFACTURER [facility] [place] [facility] Start: 04-26-2024 End: 05-01-2024 Evaluation and management of inpatient FORREST MONIKERWIN PROOF PRESS OPERATOR-MANUFACTURER [facility] Start: 04-22-2024 End: 04-26-2024 Evaluation and management of inpatient OSMEL BURRELL PROOF PRESS OPERATOR-MANUFACTURER [facility] Start: 02-19-2024 End: 02-19-2024 ambulatory KATHERINE BRAND Facility:[facility] Start: 12-17-2023 End: 12-17-2023 ambulatory [facility] Work Phone: Start: 12-17-2023 End: 12-17-2023 Patient encounter procedure [facility] Work Phone: Start: 11-18-2023 End: 11-18-2023 ambulatory KATHERINEJOCELYN BRAND Facility:[facility] Start: 11-18-2023 End: 11-18-2023 Patient encounter procedure KATHERINE BRAND PROOF PRESS OPERATOR-MANUFACTURER [facility] Start: 10-20-2023 End: 10-20-2023 ambulatory KATHERINE AYALAMER Facility:[facility] Start: 10-20-2023 End: 10-20-2023 Patient encounter procedure KATHERINE BRAND PROOF PRESS OPERATOR-MANUFACTURER [facility] Start: 10-02-2023 End: 10-02-2023 Emergency department patient visit DR NAPOLEON RAWLS MD [facility] Start: 09-15-2023 End: 04-01-2024 ambulatory KATHERINE AYALAMER Facility:[facility] Start: 08-11-2023 End: 08-11-2023 Emergency department patient visit SIERRA BLACK DO Facility:[facility] Start: 04-17-2023 End: 04-17-2023 Patient encounter procedure KATHERINE BRAND PROOF PRESS OPERATOR-MANUFACTURER [facility] Start: 03-05-2023 End: 03-05-2023 Patient encounter procedure KATHERINE BRAND PROOF PRESS OPERATOR-MANUFACTURER [facility] Start: 12-03-2022 End: 12-03-2022 Patient encounter procedure KATHERINE BRAND PROOF PRESS OPERATOR-MANUFACTURER [facility] Start: 12-03-2022 End: 12-03-2022 Well adult monitoring check done KATHERINE BRAND PROOF PRESS OPERATOR-MANUFACTURER [facility] Start: 01-10-2022 End: 01-10-2022 Patient encounter procedure ARACELI GUERRERO MD [facility] Procedures Date Procedure Procedure Detail Performing Clinician Start: 03-27-2025 Estimated creatinine clearance Katherine Petal MANAGER PRIVACY-C Work Phone: Start: 03-26-2025 Plain chest X-ray Ofelia ca Petal MANAGER PRIVACY-C Work Phone: Start: 03-24-2025 MRI of lumbar spine Allison ferraroa Sunday MANAGER PRIVACY-C Work Phone: Start: 03-24-2025 MRI of thoracic spine Rama esswendi Sunday MANAGER PRIVACY-C Work Phone: Start: 03-24-2025 Total iron binding c apacity measurement Katherine Petal MANAGER PRIVACY-C Work Phone: Start: 03-23-2025 Plain chest X-ray Ofelia ca Petal MANAGER PRIVACY-C Work Phone: Start: 03-23-2025 Computed tomography of thoracic spine without contrast Katherine Sunday MANAGER PRIVACY-C Work Phone: Start: 03-23-2025 CT of head without contrast Katherine Petal MANAGER PRIVACY-C Work Phone: Start: 03-23-2025 CT of lumbar spine Catina ica Petal MANAGER PRIVACY-C Work Phone: Start: 03-23-2025 Estimated creatinine clearance Katherine Sunday MANAGER PRIVACY-C Work Phone: Start: 09-25-2018 Cholecystectomy ARACELI GUERRERO MD Appendectomy ARACELI GUERRERO MD Colonoscopy ARACELI GUERRERO MD CT guided kyphoplast y of fracture of thoracic spine OSMEL BURRELL APRN-MANUFACTURER Comment on above: Pt reports T13 and T 11 Tonsillectomy ARACELI GUERRERO MD Wrist joint structur e (body structure) ARACELI GUERRERO MD Comment on above: Left Plan of Treatment Date Care Activity Detail Author Start: 03-27-2025 Patient discharge [facility] Start: 03-23-2025 Following clinical pathway protocol [facility] Start: 03-23-2025 Application of elastic bandage [facility] Start: 03-23-2025 Assessment of risk of venous thromboembolism [facility] Start: 03-23-2025 Consultation [facility] Start: 03-23-2025 Elevation of head of bed [facility] Start: 03-23-2025 Fall prevention [facility] Start: 03-23-2025 Inhalation therapy procedure [facility] Start: 03-23-2025 Insertion of catheter into peripheral vein [facility] Start: 03-23-2025 Introduction of urinary catheter [facility] Start: 03-23-2025 Measuring intake and output [facility] Start: 03-23-2025 Oxygen therapy [facility] Start: 03-23-2025 Patient referral to dietitian [facility] Start: 03-23-2025 Providing care according to standard [facility] Start: 03-23-2025 Provision of activity privileges [facility] Start: 03-23-2025 Referral to occupational therapist [facility] Start: 03-23-2025 Referral to service [facility] Start: 03-23-2025 [facility] Start: 03-23-2025 Admission procedure [facility] Start: 03-23-2025 Verification routine [facility] Start: 03-23-2025 Hospital admission, emergency, from emergency room, medical nature [facility] Start: 03-23-2025 [facility] Start: 03-23-2025 Patient referral to dietitian [facility] Patient Education ED Peripheral Edema, Bilateral [facility] Work Phone: Troponin T.cardiac [Mass/volume] in Serum or Plasma by High sensitivity method [facility] Immunizations Immunization Date Immunization Notes Care Provider Ines engle 12-07-2024 pneumococcal 21-hang nt [id number] OSMEL BURRELL PROOF PRESS OPERATOR-MANUFACTURER [facility] 06-15-2024 Covid (Spikevax) Katherine presley MANAGER PRIVACY-C Work Phone: [facility] 06-15-2024 influenza virus vacc ine, unspecified formulation KATHERINE BRAND PROOF PRESS OPERATOR-MANUFACTURER [facility] 06-15-2024 influenza, high dose seasonal, preservative-free Katherine Brand MANAGER PRIVACY-C Work Phone: [facility] 06-15-2024 SARS-CoV-2 (COVID-19 ) [id number] KATHERINE BRAND PROOF PRESS OPERATOR-MANUFACTURER [facility] 09-08-2023 influenza virus vacc ine, unspecified formulation DR NAPOLEON RAWLS MD [facility] 09-08-2023 Influenza, injectabl e, Madin [place] Canine Kidney, preservative free, quadrivalent Katherine Brand MANAGER PRIVACY-C Work Phone: [facility] 09-08-2023 RSV Adult Recombinan t (Arexvy) Katherine Brand MANAGER PRIVACY-C Work Phone: [facility] 09-08-2023 RSV vaccine preF3, recombinant DR NAPOLEON RAWLS MD [facility] 04-24-2023 tetanus toxoid, redu hector diphtheria toxoid, and acellular pertussis vaccine, adsorbed; Translations: [Boostrix (Tdap)] DR NAPOLEON RAWLS MD [facility] 07-24-2022 COVID-19, mRNA, LNP- S, bivalent, PF, 50 mcg/0.5 mL dose; Translations: [Moderna COVID-19 Bivalent Booster Vaccine PF] KATHERINE BRAND PROOF PRESS OPERATOR-MANUFACTURER [facility] 07-24-2022 SARS-CoV-2 (CV19)mRNA-1273 bivalent vac; Translations: [Moderna COVID-19 Bivalent Booster Vaccine PF] DR NAPOLEON RAWLS MD [facility] 06-04-2022 influenza, high dose seasonal, preservative-free KATHERINE BRAND PROOF PRESS OPERATOR-MANUFACTURER [facility] 06-04-2022 influenza, injectabl e, quadrivalent, preservative free Katherine Brand MANAGER PRIVACY-C Work Phone: [facility] 01-10-2022 COVID-19, mRNA, LNP- S, PF, 100 mcg or 50 mcg dose; Translations: [Moderna COVID-19 Vaccine] ARACELI GUERRERO MD [facility] 08-17-2021 influenza, high dose seasonal, preservative-free; Translations: [Fluad Quadrivalent PF ] ARACELI GUERRERO MD [facility] 08-17-2021 influenza, injectabl e, quadrivalent, preservative free Katherine Brand MANAGER PRIVACY-C Work Phone: [facility] 07-19-2021 SARS-CoV-2 (COVID-19 ) mRNA-1273 vaccine ARACELI GUERRERO MD [facility] Comment on above: Result Comment: 2020: [id number] 11-29-2020 SARS-CoV-2 (COVID-19 ) mRNA-1273 vaccine ARACELI GUERRERO MD [facility] 11-01-2020 SARS-CoV-2 (COVID-19 ) cJNS-2710 vaccine ARACELI GUERRERO MD [facility] 07-20-2020 Influenza High-Dose Quadrivalent Katherine Petal MANAGER PRIVACY-C Work Phone: [facility] 07-20-2020 influenza virus vacc ine, unspecified formulation ARACELI GUERRERO MD [facility] Comment on above: Result Comment: [facility] 09[facility]2019 influenza, injectabl e, quadrivalent, preservative free; Translations: [Fluarix PF Quadrivalent ] ARACELI GUERRERO MD [facility] 10-28-2018 influenza virus vacc ine, unspecified formulation ARACELI GUERRERO MD [facility] 10-28-2018 influenza, injectabl e, quadrivalent, preservative free Katherine Sunday MANAGER PRIVACY-C Work Phone: [facility] 07-17-2017 influenza virus vacc ine, unspecified formulation ARACELI GUERRERO MD [facility] 07-17-2017 influenza, injectabl e, quadrivalent, preservative free Katherine Petal MANAGER PRIVACY-C Work Phone: [facility] 08-18-2015 influenza virus vacc ine, unspecified formulation ARACELI GUERRERO MD [facility] 08-18-2015 influenza, seasonal, injectable, preservative free Katherine Sunday MANAGER PRIVACY-C Work Phone: [facility] 11-28-2014 pneumococcal conjuga te vaccine, 13 valent ARACELI GUERRERO MD [facility] 07-14-2014 influenza virus vacc ine, unspecified formulation ARACELI GUERRERO MD [facility] 07-14-2014 influenza, seasonal, injectable, preservative free Katherine Brand MANAGER PRIVACY-C Work Phone: [facility] 10-28-2012 pneumococcal polysaccharide vaccine, 23 valent ARACELI GUERRERO MD [facility] Payers Date Payer Category Payer Self-pay [id number] 2024 Medicare [id number] 2023 Private Health Insurance [id number] [id number] 2023 Unknown [id number] 2016 Unknown [id number] 2011 Medicare [id number] 1945 Unknown [id number] 2.16.8 40.1.212595.3.579.2.627 1946 Unknown [id number] 2.16.8 40.1.312099.3.579.2.627 1946 Unknown [id number] 2.16.8 40.1.326392.3.579.2.627 1946 Unknown [id number] 2.16.8 40.1.053892.3.579.2.627 194 Unknown [id number] 2.16.8 40.1.024425.3.579.2.627 1946 Unknown [id number] 2.16.8 40.1.121292.3.579.2.627 194 Unknown [id number] 2.16.8 40.1.958347.3.579.2.627 194 Unknown [id number] 2.16.8 40.1.706166.3.579.2.627 1946 Unknown [id number] 2.16. 840.1.891918.3.579.2.627 1946 Unknown [id number] 2.16. 840.1.034510.3.579.2.627 1946 Unknown [id number] 2.16. 840.1.000103.3.579.2.62 1946 Unknown [id number] 2.16.8 40.1.527762.3.579.2.627 1946 Unknown [id number] 2.16.8 40.1.707366.3.579.2.627 1946 Unknown [id number] 2.16.8 40.1.339344.3.579.2.627 1946 Unknown [id number] 2.16.8 40.1.488512.3.579.2.627 1946 Unknown [id number] 2.16.8 40.1.299643.3.579.2.627 1946 Unknown [id number] 2.16.8 40.1.077037.3.579.2.627 1946 Unknown [id number] 2.16.8 40.1.890036.3.579.2.627 1946 Unknown [id number] 2.16.8 40.1.282779.3.579.2.627 1946 Unknown [id number] 2.16.8 40.1.454431.3.579.2.627 1946 Unknown [id number] 2.16.8 40.1.412453.3.579.2.627 Unknown [id number] 2.16.8 40.1.403450.3.579.2.462 Unknown [id number] 2.16.8 40.1.358888.3.579.2.462 Unknown [id number] 2.16.8 40.1.977311.3.579.2.462 Unknown [id number] 2.16.8 40.1.095891.3.579.2.462 Unknown [id number] 2.16.8 40.1.745991.3.579.2.462 Unknown [id number] 2.16.8 40.1.178718.3.579.2.462 Unknown [id number] 2.16.8 40.1.148358.3.579.2.462 Unknown [id number] 2.16.8 40.1.004734.3.579.2.462 Unknown [id number] 2.16.8 40.1.495446.3.579.2.462 Unknown [id number] 2.16.8 40.1.405419.3.579.2.462 Unknown [id number] 2.16.8 40.1.325139.3.579.2.462 Unknown [id number] 2.16.8 40.1.764356.3.579.2.462 Social History Date Type Detail Facility Start: 09-16-2018 End: 03-23-2025 Tobacco smoking status Ex-smoker (finding) [facility] Start: 1945 Sex Assigned At Male [facility] Sexual Orientation [facility] Start: 10-27-2019 Sex Male (finding) [facility] Goals Date Patient Goal Desired Activity /State Functional Status Date Assessment Result Facility 03-27-2025 Functional status Ambulates [facility] Work Phone: 08-18-2024 Functional Status Independent [facility] 08-18-2024 Functional Status Identified as high risk, Room located near nursing station [facility] 05-01-2024 Functional Status Nurse Jayden jackson q2hrs Performed Other: 7am-250pm [facility] 05-01-2024 Functional Status Walker [facility] 05-01-2024 Functional Status bilateral knee high removed/off [facility] 05-01-2024 Functional Status Non-Slip footw ear, toileting offered, supervised while toileting, Room check performed [facility] 05-01-2024 Functional Status [facility] 05-01-2024 Functional Status [facility] 04-30-2024 Functional Status [facility] 04-30-2024 Functional Status [facility] 04-30-2024 Functional Status [facility] 04-30-2024 Functional Status Mod I [facility] 04-30-2024 Functional Status [facility] 04-29-2024 Functional Status [facility] 04-29-2024 Functional Status [facility] 04-29-2024 Functional Status [facility] 04-28-2024 Functional Status [facility] 04-28-2024 Functional Status [facility] 04-27-2024 Functional Status [facility] 04-27-2024 Functional Status OT Toilet Transfers Sup [facility] 04-26-2024 Functional Status Single level home [facility] 04-26-2024 Functional Status Mod [facility] 04-26-2024 Functional Status Min [facility] 04-26-2024 Functional Status Identified as high risk, Fall ID band on, Room located near nursing station, Bed alert on, Door open, Non-Slip footwear [facility] 04-26-2024 Functional Status [facility] 04-25-2024 Functional Status 7pm-7am [facility] 04-25-2024 Functional Status 25 [facility] 04-25-2024 Functional Status [facility] 04-25-2024 Functional Status [facility] 04-25-2024 Functional Status [facility] 04-25-2024 Functional Status [facility] 04-25-2024 Functional Status [facility] 04-24-2024 Functional Status [facility] 04-24-2024 Functional Status Done [facility] 04-24-2024 Functional Status [facility] 04-24-2024 Functional Status [facility] 04-23-2024 Functional Status Front wheeled walker [facility] 04-23-2024 Functional Status Single level home [facility] 10-02-2023 Functional Status Awake, Resting [facility] Mental Status Date Assessment Result Facility 03-27-2025 Cognitive function Voice/Name [facility] Work Phone: 03-23-2025 Cognitive function Level Of Cons ciousness Awake;Alert;Appropriate;Follow s Commands [facility] Work Phone: 08-18-2024 Mental Status Orientation Oriented x 4 [facility] 08-18-2024 Mental Status [facility] 05-01-2024 [facility] 04-30-2024 Mental Status [facility] 04-30-2024 Mental Status [facility] 04-26-2024 Mental Status [facility] 04[facility]24 [facility] 04-26-2024 Mental Status [facility] 10-02-2023 Mental Status Oriented x 4 [facility] Clinical Notes 10-02-2023 to 03-27-2025 Note Date & Type Note Facility 03-27-2025 Note [facility] Medical Records Department [address] [place] [address] History Physical Exam 03/27/25 1718 MR#: [id number] Acct: [id number] Name: NANCY SY Rep #: [id number] : 1945 80 From: Sony Gould MD PCP: LOIS Resendiz Status:ADM IN Location: [place] [id number] HPI - General General Date of Admission: 03/27/25 Date of Service: 03/28/25 Chief Complaint: Here for rehabilitation. HPI Narrative NANCY SY, is a 80 Male who presents with followin03/23/2025 [facility] ED edema. Worsening bilateral lower extremity swelling for 2 weeks, took water pill for 3 days, did not help. Difficulty walking, balance issues, History of chronic back pain. Chest X-ray negative, CT brain negative, CT thoracic spine T9 compression fracture. Doppler ultrasound bilateral lower extremity negative DVT. 03/23/2025 Admit [facility]. Lasix IV, NIKKI compression wraps, for bilateral lower extremity edema. Lidoderm, Toradol IV, Gabapentin 100mg tid, PT/OT/CM, MRI TL spine, Orthopedics consult, for acute on chronic back pain. Trend troponin for elevated troponin. 03/23/2025 Echo EF 55%. Left atrium mildly enlarged. 03/24/2025 Lower extremity swelling. MRI TL spine, Ortho, Toradol IV, Gabapentin, Lidoderm for back pain. Lasix IV, bilateral lower extremity NIKKI wraps for lymphedema. 03/24/2025 MRI thoracic spine: IMPRESSION: 1. Straightening of the upper thoracic spine. Acute kyphosis lower thoracic spine related to multiple fractures. 2. There is contact of the spinal cord by the T9 vertebral body with no abnormal signal seen. 3. Severe exit foraminal narrowing T9/10. Correlate with radiculopathy at T9. 03/24/2025 MRI lumbar spine: IMPRESSION: 1. Fractures of T11 and L1 [...] right, L3/4, L4/5 and L5/S1 as above. 03/25/2025 Short of breath, like he was dying, Oxygen 2 liters, negative balance 1.79 Liters. K 3.1, replete. PT/OT for low back pain. Swelling improved. Aerosols, bronchodilators, oxygen for acute respiratory failure 2/2 atelectasis. 03/26/2025 Bilateral lower extremity swelling markedly improved. Bibasilar crackles 2/2 atelectasis, does not like incentive spirometry. PT/OT, pain control for back pain. Change IV Lasix to PO Lasix fo bilateral lower extremity edema. Oxygen 2 liters per nasal cannula. 03/27/2025 Admit to TCU with debility, here for rehabilitation, strengthening, prior to discharge home with . [facility] Medical History (Updated 03/27/25 @ 17:[address] Sony Gould MD) CKD (chronic kidney disease), stage II Former tobacco use BPH (benign prostatic hyperplasia) HLD (hyperlipidemia) Chronic anemia Pancreatitis Osteoporosis Osteopenia Kidney stones Arthritis Allergies Hemorrhoids Hypertension Home Medications ???Medication ???Instructions ???Recorded ???Last Taken ???Type carvedilol 3.125 mg tablet 3.125 mg PO BID BP 07/09/23 08:40 History buspirone 15 mg tablet 15 mg PO BID Mood 07/26/24 5 08:40 History calcium carbonate 1,000 mg PO QDAY Supplement 03/22/25 History cyanocobalamin (vitamin B-12) 1,000 mcg PO QDAY Supplement 07/2603/22/25 History 1,000 mcg capsule losartan 25 mg tablet 100 mg PO DAILY BP 07/26/24 08:40 History melatonin 5 mg capsule 5 mg PO QHS PRN Sleep 07/26/24 History paroxetine HCl 40 mg tablet 40 mg PO QDAY Mood 07/26/24 08:40 History tamsulosin 0.4 mg capsule (Flomax) 0.4 mg PO QDAY Urinary Retention 07/26/24 03/27/25 08:40 History cholecalciferol (vitamin D3) 1,250 1,250 mcg PO QWEEK Supplement Unknown History mcg (50,000 unit) capsule acetaminophen 325 mg tablet 650 mg PO Q6H PRN pain 03/23/25 History (Tylenol) hydroxyzine HCl 25 mg tablet 25 mg PO 4X/DAY Anxiety 03/24/25 0 03/27/25 History albuterol sulfate 90 mcg/actuation 1 inh inhalation Q6H PRN shortne ss 03/27/25 Unknown Rx breath activated powder inhaler of breath #1 ea furosemide 40 mg tablet 40 mg PO DAILY Edema #30 tabs 03/0203/27/25 10:20 Rx potassium chloride 20 mEq 20 meq PO DAILY Supplement #30 tab s 03/27/25 Unknown Rx tablet,extended release (K-Tab) Allergy/AdvReac Type Severity Reaction Status Date / Time No Known Allergies Allergy Verified 03/23/25 16:56 Family History (Reviewed (more content not included)... [facility] 03-27-2025 Discharge summary [facility] 03-27-2025 Note [facility] Medical Records Department [address] [place] [address] Discharge Summary 03/27/25 1337 MR#: [id number] Acct: [id number] Name: NANCY SY Rep #: [id number] : 1945 80 From: Katarina Fabian MD PCP: LOIS Resendiz Status:ADM IN Location: [place] [address] Providers Date of Admission: 03/23/25 Date of [...] some weeks now and was seen at [facility] where he was told that [...] 3 days but said his symptoms did not improve so he stopped the Lasix. He had a history of back pain and balance issues and so went back to the ED after he fell. He said the back pain was worsened by activity. He went back to the ED and proBNP was 417. Bilateral lower extremity duplex were negative and CT brain showed no acu (more content not included)... [facility] 03-27-2025 Discharge summary [facility] 03-26-2025 Radiology Diagnostic study note [facility] Imaging Services [address] [place] [address] Chest 1 View (Portable) MR#: [id number] Acct: [id number] Name: NANCY SY Rep #: [id number] : 1945 M 80 From: Margarita Baptiste MD PCP: LOIS Resendiz Status: ADM I N Study:Chest 1 View (Portable) Date of Exam: 03/26/25 Exam# [id number] Ordering Dr: Ritchie Fabian MD EXAM: XR Chest, 1 View CLINICAL INDICATION: 2 L NC REQUIREMENT TECHNIQUE: Frontal view of the chest. COMPARISON: No relevant prior studies available. FINDINGS: LUNGS AND PLEURAL SPACES: See below. HEART: Cardiomegaly with mild congestion. MEDIASTINUM: Unremarkable. Normal mediastinal contour. BONES/JOINTS: Unremarkable. No acute fracture. RAD/Chest 1 View (Portable) IMPRESSION: Cardiomegaly with mild congestion. Reading Location: [facility] CC: MANAGER PRIVACYLeighann Brand; Dr. Katarina Fabian MD ~ Vp Training: Signed [facility] 03-26-2025 Progress note Note Date/Time March 26, 2025 11:10am [facility] Medical Records Department [address] [place] [address] Progress Note 03/26/25 1057 MR#: [id number] Acct: [id number] Name: NANCY SY Rep #:[id number] : 1945 80 From: Katarina Fabian MD PCP: Katherine Brand, MANAGER PRIVACY-C Status:ADM I N Location: [place] [address] Subjective Subjective Patient seen and examined. He [...] (Auto) 64.6, Lymph % (Auto) 14.1 L, Rusk % (Auto) 13.0 H, Eos % (Auto) [...] some weeks now and was seen at [facility] where he was told that [...] full code Charges/Coding Visit Charges Inpatient E&M: 17499 Subs Hosp L2 03/26/25 1110 <Electronically signed by Katarina Fabian MD> Katarina Fabian MD Cosigner Signature (if applicable): CC: ~ Signed [facility] Work Phone: 1(487) 725-803307-26-2025 Progress note [facility] Medical Records Department [address] [place] [address] Progress Note 03/26/25 1057 MR#: [id number] Acct: [id number] Name: NANCY SY Rep #:[id number] : 1945 80 From: Katarina Fabian MD PCP: LOIS Resendiz Status:ADM I N Location: [place] [address] Subjective Subjective Patient seen and examined. He [...] (Auto) 64.6, Lymph % (Auto) 14.1 L, Rusk % (Auto) 13.0 H, Eos % (Auto) [...] some weeks now and was seen at [facility] where he was told that [...] full code Charges/Coding Visit Charges Inpatient E&M: 29485 Subs Hosp L2 03/26/25 1110 Katarina Fabian MD Cosigner Signature (if applicable): CC: ~ Signed [facility]07-25-2025 Consult note Author Zandra Freire [facility] Note Date/Time March 25, 2025 1:18 pm [facility] Medical Records Department [address] [place] [address] Consultation - Orthopedics 03/25/25 1307 MR#: [id number] Acct: [id number] Name: NANCY SY Rep #:[id number] : 1945 80 From: Zandra Freire MD PCP: LOIS Resendiz Status:ADM I N Location: [place] [address] HPI Consult Data Date of Consult: 03/25/25 [...] trending, OA, Allergic rhinitis, Former tobacco use [facility] Medical History CKD (chronic kidney disease), stage [...] (Auto) 60.9, Lymph % (Auto) 18.3 L, Rusk % (Auto) 13.5 H, Eos % (Auto) [...] L4/5 and L5/S1 as above. Reading Location: [facility] Thoracic Spine MRI 03/24/25 09:00 IMPRESSION: 1. Straightening of the upper thoracic spine. Acute kyphosis lower thoracic spine related to multiple fractures. 2. There is contact of the spinal cord by the T9 vertebral body with no abnormal signal seen. 3. Severe exit foraminal narrowing T9/10. Correlate with radiculopathy at T9. Reading Location: [facility] Assessment & Plan Assessment/Plan (1) Thoracic compression [...] outpatient basis. Charges/Coding Visit Charges Inpatient E&M: 54133 Init Hosp L3 03/25/25 1318 <Electronically signed by Zandra Freire MD> Cosigner Signature (if applicable): CC: LOIS Brand; Dr. Katarina Fabian MD~ Signed [facility] Work Phone: 1(470) 547-424507-25-2025 Consult note [facility] Medical Records Department [address] [place] [address] Consultation - Orthopedics 03/25/25 1307 MR#: [id number] Acct: [id number] Name: NANCY SY Rep #:[id number] : 1945 80 From: Zandra Freire MD PCP: LOIS Resendiz Status:ADM I N Location: [place] [address] HPI Consult Data Date of Consult: 03/25/25 [...] trending, OA, Allergic rhinitis, Former tobacco use [facility] Medical History CKD (chronic kidney disease), stage [...] (Auto) 60.9, Lymph % (Auto) 18.3 L, Rusk % (Auto) 13.5 H, Eos % (Auto) [...] L4/5 and L5/S1 as above. Reading Location: [facility] Thoracic Spine MRI 03/24/25 09:00 IMPRESSION: 1. Straightening of the upper thoracic spine. Acute kyphosis lower thoracic spine related to multiple fractures. 2. There is contact of the spinal cord by the T9 vertebral body with no abnormal signal seen. 3. Severe exit foraminal narrowing T9/10. Correlate with radiculopathy at T9. Reading Location: [facility] Assessment & Plan Assessment/Plan (1) Thoracic compression [...] outpatient basis. Charges/Coding Visit Charges Inpatient E&M: 03711 Init Hosp L3 03/25/25 1318 Cosigner Signature (if applicable): CC: LOIS Brand; Dr. Katarina Fabian MD~ Signed [facility]07-25-2025 Progress note Author Katarina [facility] Note Date/Time March 25, 2025 10:3 2am [facility] Medical Records Department [address] [place] [address] Progress Note 03/25/25 1010 MR#: [id number] Acct: [id number] Name: NANCY SY Rep #:[id number] : 1945 80 From: Katarina Fabian MD PCP: Katherine Sunday, MANAGER PRIVACY-C Status:ADM I N Location: [place] [address] Subjective Subjective Patient seen and examined. He [...] (Auto) 60.9, Lymph % (Auto) 18.3 L, Rusk % (Auto) 13.5 H, Eos % (Auto) [...] L4/5 and L5/S1 as above. Reading Location: [facility] Thoracic Spine MRI 03/24/25 09:00 IMPRESSION: 1. Straightening of the upper thoracic spine. Acute kyphosis lower thoracic spine related to multiple fractures. 2. There is contact of the spinal cord by the T9 vertebral body with no abnormal signal seen. 3. Severe exit foraminal narrowing T9/10. Correlate with radiculopathy at T9. Reading Location: [facility] Physical Exam Const alert, oriented x3 and [...] some weeks now and was seen at [facility] where he was told that [...] full code Charges/Coding Visit Charges Inpatient E&M: 01336 Subs Hosp L2 03/25/25 1032 <Electronically signed by Katarina Fabian MD> Katarina Fabian MD Cosigner Signature (if applicable): CC: ~ Signed [facility] Work Phone: 1(390) 105-401507-25-2025 Progress note [facility] Medical Records Department [address] [place] [address] Progress Note 03/25/25 1010 MR#: [id number] Acct: [id number] Name: NANCY SY Rep #:[id number] : 1945 80 From: Katarina Fabian MD PCP: Katherine Brand NP-C Status:ADM I N Location: [place] [address] Subjective Subjective Patient seen and examined. He [...] (Auto) 60.9, Lymph % (Auto) 18.3 L, Rusk % (Auto) 13.5 H, Eos % (Auto) [...] Physician: Merry Pham Performed By: Tommie Gurrola, [facility] Lumbar Spine MRI 03/24/25 09:00 IMPRESSION: [...] L4/5 and L5/S1 as above. Reading Location: [facility] Thoracic Spine MRI 03/24/25 09:00 IMPRESSION: 1. Straightening of the upper thoracic spine. Acute kyphosis lower thoracic spine related to multiple fractures. 2. There is contact of the spinal cord by the T9 vertebral body with no abnormal signal seen. 3. Severe exit foraminal narrowing T9/10. Correlate with radiculopathy at T9. Reading Location: [facility] Physical Exam Const alert, oriented x3 and [...] some weeks now and was seen at [facility] where he was told that [...] full code Charges/Coding Visit Charges Inpatient E&M: 43498 Subs Hosp L2 03/25/25 1032 Katarina Fabian MD Cosigner Signature (if applicable): CC: ~ Signed [facility]07-24-2025 Progress note Author Katarina Fabian [facility] Note Date/Time March 24, 2025 3:20 pm [facility] Medical Records Department [address] [place] [address] Progress Note 03/24/25 1457 MR#: [id number] Acct: [id number] Name: NANCY SY Rep #:[id number] : 1945 80 From: Katarina Fabian MD PCP: Katherine Brand, MANAGER PRIVACY-C Status:ADM I N Location: [place] [address] Subjective Subjective Patient seen and examined. He [...] (Auto) 75.3 H, Lymph % (Auto)10.3 L, Rusk % (Auto) 10.1 H, Eos % (Auto) [...] % (Auto) 61.6, Lymph % (Auto) 19.2, Rusk % (Auto) 13.4 H, Eos % (Auto) [...] 03/23/25 17:33 IMPRESSION: No DVT. Reading Location: [facility] Brain CT 03/23/25 18:12 IMPRESSION: No acute intracranial abnormality. Reading Location: [facility] Lumbar Spine CT 03/23/25 18:12 IMPRESSION: 1. Severe compression deformity of L1 vertebral body, likely chronic. However,this does results in moderate spinal canal stenosis. 2. If symptoms persist, further evaluation with MRI is recommended. Reading Location: [facility] Thoracic Spine CT 03/23/25 18:12 IMPRESSION: 1. No acute fracture. 2. Moderate to severe compression deformity of T9 vertebral body with lucency along the anterior aspect, acute fracture can not be excluded. Reading Location: [facility] Chest X-Ray 03/23/25 18:20 IMPRESSION: No Acute Findings. Reading Location: [facility] Echocardiogram 03/23/25 22:14 Interpretation Summary The [...] some weeks now and was seen at [facility] where he was told that [...] full code Charges/Coding Visit Charges Inpatient E&M: 85128 Subs Hosp L2 03/24/25 1520 <Electronically signed by Katarina Fabian MD> Katarina Fabian MD Cosigner Signature (if applicable): CC: ~ Signed [facility] Work Phone: 1(272) 948-538507-24-2025 Progress note [facility] Medical Records Department [address] [place] [address] Progress Note 03/24/25 4447 MR#: [id number] Acct: [id number] Name: NANCY SY Rep #:[id number] : 1945 80 From: Katarina Fabian MD PCP: NOAH ResendizC Status:ADM I N Location: [place] [address] Subjective Subjective Patient seen and examined. He [...] (Auto) 75.3 H, Lymph % (Auto)10.3 L, Rusk % (Auto) 10.1 H, Eos % (Auto) [...] % (Auto) 61.6, Lymph % (Auto) 19.2, Rusk % (Auto) 13.4 H, Eos % (Auto) [...] Cholesterol, Calc 62, VLDL Cholesterol 9, HDL Mnslgrorknb57 L, Cholesterol/HDL Ratio 3.02, Vitamin B12 1246 H, TSH 0.640 03/24/25 10:38: Serum Folate 8.06 Radiography Diagnostic Testing: Radiology Impression Venous Duplex 03/23/25 17:33 IMPRESSION: No DVT. Reading Location: [facility] Brain CT 03/23/25 18:12 IMPRESSION: No acute intracranial abnormality. Reading Location: [facility] Lumbar Spine CT 03/23/25 18:12 IMPRESSION: 1. Severe compression deformity of L1 vertebral body, likely chronic. However,this does results in moderate spinal canal stenosis. 2. If symptoms persist, further evaluation with MRI is recommended. Reading Location: [facility] Thoracic Spine CT 03/23/25 18:12 IMPRESSION: 1. No acute fracture. 2. Moderate to severe compression deformity of T9 vertebral body with lucency along the anterior aspect, acute fracture can not be excluded. Reading Location: [facility] Chest X-Ray 03/23/25 18:20 IMPRESSION: No Acute Findings. Reading Location: [facility] Echocardiogram 03/23/25 22:14 Interpretation Summary The [...] some weeks now and was seen at [facility] where he was told that [...] full code Charges/Coding Visit Charges Inpatient E&M: 94696 Subs Hosp L2 03/24/25 1520 Katarina Fabian MD Cosigner Signature (if applicable): CC: ~ Signed [facility]07-24-2025 Discharge summary Author Marco Camacho [facility] Note Date/Time March 23, 2025 11:2 7pm [facility] Medical Records Department [address] [place] [address] Emergency Department Summary 03/23/25 MR#: [id number] Acct: [id number] Name: NANCY SY Rep #:[id number] : 1945 80 From: Marco Askew PCP: LOIS Resendiz Status:ADM I N Location: [address] History of Present Illness Chief Complaint: Edema PFSH [facility] Medical History CKD (chronic kidney disease), stage [...] reviewed medications Factors affecting care: As per [facility] Social determinants of health: Elderly History obtained from others: Family Consults: Hospitalist (Dr. Pham) recommended inpatient admission. [facility] Narrative: The patient was initially hemodynamically stable, [...] Dispo: Admit This note was generated with [employer] dictation software. It may contain incorrectwords, spelling, [...] 75.3 H Lymph % (Auto) 10.3 L Rusk % (Auto) 10.1 H Eos % (Auto) [...] 03/23/25 17:33 IMPRESSION: No DVT. Reading Location: [facility] Brain CT 03/23/25 18:12 IMPRESSION: No acute intracranial abnormality. Reading Location: [facility] Lumbar Spine CT 03/23/25 18:12 IMPRESSION: 1. Severe compression deformity of L1 vertebral body, likely chronic. However,this does results in moderate spinal canal stenosis. 2. If symptoms persist, further evaluation with MRI is recommended. Reading Location: [facility] Thoracic Spine CT 03/23/25 18:12 IMPRESSION: 1. No acute fracture. 2. Moderate to severe compression deformity of T9 vertebral body with lucency along the anterior aspect, acute fracture can not be excluded. Reading Location: [facility] Chest X-Ray 03/23/25 18:20 IMPRESSION: No Acute Findings. Reading Location: [facility] Discharge Plan Disposition Disposition: Acute Care Hospital [facility] Discharge Date/Time: 03/23/25 22:13 What to do if you have Problems For any increased pain, shortness of breath, bleeding, nausea or vomiting, chestpain, or any unexpected problems, contact your Primary Care Provider. Call [facility] ([phone]) or report to the closest Emergency Room. Call 911 if necessary. 03/23/252326 <Electronically signed by Marco Camacho DO> Cosigner Signature (if applicable): CC: LOIS Brand ~ Signed [facility] Work Phone: 1(426) 738-133307-23-2025 History and physical note Author Merry Pham [facility] Note Date/Time March 23, 2025 9:49 pm [facility] Medical Records Department [address] [place] [address] H&P Exam - Hospitalist 03/23/252008 MR#: [id number] Acct: [id number] Name: NANCY SY Rep #:[id number] : 1945 80 From: Merry Pham MD PCP: LOIS Resendiz Status:ADM I N Location: [place] [address] HPI - General General Date of Admission: 03/23/25 Date of Service: 03/23/25 Chief Complaint: Acute on Chronic back pain, increased BL LE edema, chronic debility HPI Narrative The patient is a 80 y/o M w/ PMHx: Possible Chronic macrocytic anemia, CKD stageII per GFR trending, OA, Allergic rhinitis, Former tobacco use who presents to [facility] ED on 03/23/2025 with 2 weeks of [...] fracture, chest x-ray with no acute findings. [facility] Medical History CKD (chronic kidney disease), stage [...] (Auto) 75.3 H, Lymph % (Auto)10.3 L, Rusk % (Auto) 10.1 H, Eos % (Auto) [...] 03/23/25 17:33 IMPRESSION: No DVT. Reading Location: [facility] Brain CT 03/23/25 18:12 IMPRESSION: No acute intracranial abnormality. Reading Location: [facility] Lumbar Spine CT 03/23/25 18:12 IMPRESSION: 1. Severe compression deformity of L1 vertebral body, likely chronic. However,this does results in moderate spinal canal stenosis. 2. If symptoms persist, further evaluation with MRI is recommended. Reading Location: [facility] Thoracic Spine CT 03/23/25 18:12 IMPRESSION: 1. No acute fracture. 2. Moderate to severe compression deformity of T9 vertebral body with lucency along the anterior aspect, acute fracture can not be excluded. Reading Location: [facility] Chest X-Ray 03/23/25 18:20 IMPRESSION: No Acute Findings. Reading Location: [facility] Assessment & Plan Assessment/Plan (1) Acute on chronic back pain: PLAN: Plan The patient is a 80 y/o M w/ PMHx: Possible Chronic macrocytic anemia, CKD stageII per GFR trending, OA, Allergic rhinitis, Former tobacco use who presents to [facility] ED on 03/23/2025 with 2 weeks of [...] 33, repeat delta pending, will maintain on satellite project site monitor be cautious, will obtain magnesium level, FLP [...] 16 minutes. Charges/Coding Visit Charges Inpatient E&M: 53089 Init Hosp L3 Procedures Hospitalists Procedures: 40158 Advncd Care Plan 30 Min 03/23/258 <Electronically signed by Merry Pham MD> Cosigner Signature (if applicable): CC: MANAGER PRIVACYDarronC Katherine Brand; Dr. Merry Pham MD~ Signed [facility] Work Phone: 1(985) 397-417507-23-2025 Discharge summary [facility] Medical Records Department [address] [place] [address] Emergency Department Summary 03/23/25 MR#: [id number] Acct: [id number] Name: NANCY SY Rep #:[id number] : 1945 80 From: Marco Askew PCP: LOIS Resendiz Status:ADM I N Location: [address] History of Present Illness Chief Complaint: Edema PFSH [facility] Medical History CKD (chronic kidney disease), stage [...] MEDICAL DECISION MAKING: Chief Complaint: please see [facility] External records reviewed: Reviewed prior outpatient visits, reviewed medications Factors affecting care: As per [facility] Social determinants of health: Elderly History obtained from others: Family Consults: Hospitalist (Dr. Pham) recommended inpatient admission. [facility] Narrative: The patient was initially hemodynamically stable, [...] Dispo: Admit This note was generated with Private [employer] dictation software. It may contain incorrectwords, spelling, [...] 75.3 H Lymph % (Auto) 10.3 L Rusk % (Auto) 10.1 H Eos % (Auto) [...] 03/23/25 17:33 IMPRESSION: No DVT. Reading Location: [facility] Brain CT 03/23/25 18:12 IMPRESSION: No acute intracranial abnormality. Reading Location: [facility] Lumbar Spine CT 03/23/25 18:12 IMPRESSION: 1. Severe compression deformity of L1 vertebral body, likely chronic. However,this does results in moderate spinal canal stenosis. 2. If symptoms persist, further evaluation with MRI is recommended. Reading Location: [facility] Thoracic Spine CT 03/23/25 18:12 IMPRESSION: 1. No acute fracture. 2. Moderate to severe compression deformity of T9 vertebral body with lucency along the anterior aspect, acute fracture can not be excluded. Reading Location: [facility] Chest X-Ray 03/23/25 18:20 IMPRESSION: No Acute Findings. Reading Location: [facility] Discharge Plan Disposition Disposition: Acute Care Hospital [facility] Discharge Date/Time: 03/23/25 22:13 What to do if you have Problems For any increased pain, shortness of breath, bleeding, nausea or vomiting, chestpain, or any unexpected problems, contact your Primary Care Provider. Call [facility] ([phone]) or report tothe closest Emergency Room. Call 911 if necessary. 03/23/252326 Cosigner Signature (if applicable): CC: LOIS Brand ~ Signed [facility]07-23-2025 Evaluation note* Diagnosis Onset Date Resolution Status Admit Date Acute on chronic back pain acute March 23, 2025 8:15pm History of kyphoplasty acute Ju 2024 8:15pm Lumbar compression fracture acute March 23, 2025 8:15pm Thoracic compression fracture acute March 23, 2025 8:15pm Thoracolumbar kyphosis acute Ju 2024 8:15pm Osteoporosis chronic March 23, 025 8:15pm [facility] Work Phone: 1(749) 995-469007-23-2025 History and physical note Author Merry Pham [facility] Note Date/Time March 23, 2025 9:49 pm [facility] Medical Records Department [address] [place] [address] H&P Exam - Hospitalist 03/23/252008 MR#: [id number] Acct: [id number] Name: NANCY SY Rep #:[id number] : 1945 80 From: Merry Pham MD PCP: Katherine Brand NP-C Status:ADM I N Location: [place] [address] HPI - General General Date of Admission: 03/23/25 Date of Service: 03/23/25 Chief Complaint: Acute on Chronic back pain, increased BL LE edema, chronic debility HPI Narrative The patient is a 80 y/o M w/ PMHx: Possible Chronic macrocytic anemia, CKD stageII per GFR trending, OA, Allergic rhinitis, Former tobacco use who presents to [facility] ED on 03/23/2025 with 2 weeks of [...] fracture, chest x-ray with no acute findings. [facility] Medical History CKD (chronic kidney disease), stage [...] (Auto) 75.3 H, Lymph % (Auto)10.3 L, Rusk % (Auto) 10.1 H, Eos % (Auto) [...] 03/23/25 17:33 IMPRESSION: No DVT. Reading Location: [facility] Brain CT 03/23/25 18:12 IMPRESSION: No acute intracranial abnormality. Reading Location: [facility] Lumbar Spine CT 03/23/25 18:12 IMPRESSION: 1. Severe compression deformity of L1 vertebral body, likely chronic. However,this does results in moderate spinal canal stenosis. 2. If symptoms persist, further evaluation with MRI is recommended. Reading Location: [facility] Thoracic Spine CT 03/23/25 18:12 IMPRESSION: 1. No acute fracture. 2. Moderate to severe compression deformity of T9 vertebral body with lucency along the anterior aspect, acute fracture can not be excluded. Reading Location: [facility] Chest X-Ray 03/23/25 18:20 IMPRESSION: No Acute Findings. Reading Location: [facility] Assessment & Plan Assessment/Plan (1) Acute on chronic back pain: PLAN: Plan The patient is a 80 y/o M w/ PMHx: Possible Chronic macrocytic anemia, CKD stageII per GFR trending, OA, Allergic rhinitis, Former tobacco use who presents to [facility] ED on 03/23/2025 with 2 weeks of [...] 33, repeat delta pending, will maintain on satellite project site monitor be cautious, will obtain magnesium level, FLP [...] 16 minutes. Charges/Coding Visit Charges Inpatient E&M: 63619 Init Hosp L3 Procedures Hospitalists Procedures: 79391 Advncd Care Plan 30 Min 03/23/25 0488 <Electronically signed by Merry Pham MD> Cosigner Signature (if applicable): CC: LOIS Brand; Dr. Merry Pham MD~ Signed [facility] Work Phone: 1(427) 672-117707-23-2025 History and physical note [facility] Medical Records Department [address] [place] [address] H&P Exam - Hospitalist 03/23/252008 MR#: [id number] Acct: [id number] Name: NANCY SY Rep #:[id number] : 1945 80 From: Merry Pham MD PCP: Katherine Brand, MANAGER PRIVACY-C Status:ADM I N Location: [place] [address] HPI - General General Date of Admission: 03/23/25 Date of Service: 03/23/25 Chief Complaint: Acute on Chronic back pain, increased BL LE edema, chronic debility HPI Narrative The patient is a 80 y/o M w/ PMHx: Possible Chronic macrocytic anemia, CKD stageII per GFR trending, OA, Allergic rhinitis, Former tobacco use who presents to [facility] ED on 03/23/2025 with 2 weeks of [...] fracture, chest x-ray with no acute findings. [facility] Medical History CKD (chronic kidney disease), stage [...] (Auto) 75.3 H, Lymph % (Auto)10.3 L, Rusk % (Auto) 10.1 H, Eos % (Auto) [...] 03/23/25 17:33 IMPRESSION: No DVT. Reading Location: [facility] Brain CT 03/23/25 18:12 IMPRESSION: No acute intracranial abnormality. Reading Location: [facility] Lumbar Spine CT 03/23/25 18:12 IMPRESSION: 1. Severe compression deformity of L1 vertebral body, likely chronic. However,this does results in moderate spinal canal stenosis. 2. If symptoms persist, further evaluation with MRI is recommended. Reading Location: [facility] Thoracic Spine CT 03/23/25 18:12 IMPRESSION: 1. No acute fracture. 2. Moderate to severe compression deformity of T9 vertebral body with lucency along the anterior aspect, acute fracture can not be excluded. Reading Location: [facility] Chest X-Ray 03/23/25 18:20 IMPRESSION: No Acute Findings. Reading Location: [facility] Assessment & Plan Assessment/Plan (1) Acute on chronic back pain: PLAN: Plan The patient is a 80 y/o M w/ PMHx: Possible Chronic macrocytic anemia, CKD stageII per GFR trending, OA, Allergic rhinitis, Former tobacco use who presents to [facility] ED on 03/23/2025 with 2 weeks of [...] 33, repeat delta pending, will maintain on satellite project site monitor be cautious, will obtain magnesium level, FLP [...] 16 minutes. Charges/Coding Visit Charges Inpatient E&M: 71584 Init Hosp L3 Procedures Hospitalists Procedures: 59470 Advncd Care Plan 30 Min 03/23/259 Cosigner Signature (if applicable): CC: MANAGER PRIVACY-C Katherine Brand; Dr. Merry Pham MD~ Signed [facility]07-23-2025 Radiology Diagnostic study note [facility] Imaging Services [address] [place], [place] [address] Spine Thoracic without Contras MR#: [id number] Acct: [id number] Name: NANCY SY Rep #: [id number] : 1945 M 80 From: Margarita Baptiste MD PCP: LOIS Resendiz Status: REG E R Study:Spine Thoracic without Contras Date of Exam: 03/23/25 Exam# [id number] Ordering Dr: Lourdes Camacho DO EXAM: CT Thoracic Spine Without [...] fracture can not be excluded. Reading Location: [facility] CC: LOIS Brand; Dr. Marco Camacho DO ~ Vp Training: Signed [facility]07-23-2025 Radiology Diagnostic study note [facility] Imaging Services [address] [place] [address]361 Spine Lumbar without Contrast MR#: [id number] Acct: [id number] Name: NANCY SY Rep #: [id number] : 1945 M 80 From: Margarita Baptiste MD PCP: LOIS Resendiz Status: REG E R Study:Spine Lumbar without Contrast Date of E xam: 03/23/25 Exam# [id number] Ordering Dr: Lourdes Camacho DO EXAM: CT Lumbar Spine Without [...] evaluation with MRI is recommended. Reading Location: [facility] CC: MANAGER PRIVACY-C Katherine Brand; Dr. Marco Camacho DO ~ Vp Training: Signed [facility]07-23-2025 Radiology Diagnostic study note [facility] Imaging Services [address] [place], [place] [address] Chest 1 View (Portable) MR#: [id number] Acct: [id number] Name: NANCY SY Rep #: [id number] : 1945 M 80 From: Bethel Delatorre MD PCP: NOAH ResendizC Status: REG E R Study:Chest 1 View (Portable) Date of Exam: 03/23/25 Exam# [id number] Ordering Dr: Lourdes Camacho DO PROCEDURE: CHEST 1 VIEW (PORTABLE) 03/23/2025 REASON FOR EXAM: DIZZINESS, SHORTNESS OF BREATH TECHNIQUE: Frontal view of the chest. COMPARISON: None. FINDINGS: The heart is partially obscured due to low lung volumes. Left basilar linear opacities which may represent atelectasis versus scar. The lungs are otherwise clear. No acute osseous abnormalities. RAD/Chest 1 View (Portable) IMPRESSION: No Acute Findings. Reading Location: [facility] CC: LOIS Brand; Dr. Marco Camacho DO ~ Vp Training: Signed [facility]07-23-2025 Radiology Diagnostic study note [facility] Imaging Services [address] [place] [address] Venous Duplex Imag/Efrain Extrem MR#: [id number] Acct: [id number] Name: NANCY SY Rep #: [id number] : 1945 M 80 From: Bethel Delatorre MD PCP: Katherine Sunday, MANAGER PRIVACY-C Status: REG E R Study:Venous Duplex Imag/Efrain Extrem Date of E xam: 03/23/25 Exam# [id number] Ordering Dr: Lourdes Camacho DO PROCEDURE: VENOUS DUPLEX IMAG/EFRAIN EXTREM 03/23/2025 REASON FOR EXAM: M 80 y/o TECHNIQUE: VENOUS DUPLEX IMAG/EFRAIN EXTREM COMPARISON: None. FINDINGS: Normal compressibility and color Doppler flow of the bilateral lower extremities. Edema is visualized in the bilateral calves. US/Venous Duplex Imag/Efrain Extrem IMPRESSION: No DVT. Reading Location: [facility] CC: MANAGER PRIVACY-C Katherine Brand; Dr. Marco Camacho DO ~ Vp Training: Signed [facility]07-23-2025 Radiology Diagnostic study note [facility] Imaging Services [address] [place] [address] Brain/Head without Contrast MR#: [id number] Acct: [id number] Name: NANCY SY Rep #: [id number] : 1945 M 80 From: Bethel Delatorre MD PCP: LOIS Resendiz Status: REG E R Study:Brain/Head without Contrast Date of Exa m: 03/23/25 Exam# [id number] Ordering Dr: Lourdes Camacho DO PROCEDURE: BRAIN/HEAD WITHOUT CONTRAST 03/23/2025 [...] IMPRESSION: No acute intracranial abnormality. Reading Location: [id number] CC: LOIS Brand; Dr. Marco Camacho, DO ~ Vp Training: Signed [facility]06-30-2025 Note. MICRO - Microbiology PROCEDURE: Blood Culture [...] Locations *1: This test was performed at: [address]06-30-2025 Note. MICRO - Microbiology PROCEDURE: Blood Culture [...] Locations *1: This test was performed at: [address]06-26-2025 Hospital Discharge instructions Patient Education 02/24/2025 12:59:09 [...] Follow these instructions at home: Medicines Take lnpp-uzb-exsgrzs and prescription medicines only as told by [...] as fried or sweet foods. ?Take an aowg-eaq-pqdhrud or prescription medicine for constipation. If you [...] 08/18/2006 Document Revised: 10/14/2019 Document Reviewed: 09/29/2018 [employer] Patient Education 2020 [employer]. 02/24/2025 12:58:21 Weakness, Nzpx-xx-Mihc Weakness Weakness is a lack of strength. [...] about working with a physical therapist or field trainer to help you get stronger. General instructions Take mzcj-alb-cfghiqi and prescription medicines only as told by [...] 07/31/2009 Document Revised: 03/24/2019 Document Reviewed: 03/24/2019 [employer] Patient Education 2020 [employer]. Follow Up Care 02/22/2025 17:35:43 With:IWONA ARCHER DO Address: [address] [facility] [address] [place] [phone] When: Unknown Comments:Please call to schedule with pulmonology for post-hospital appointment regarding 8mm pulmonary nodule. With:ZANDRA FREIRE MD Address: [address] [facility] [address] [place] [phone] When: Unknown Comments:Please call to schedule your post-hospital follow-up appointment with orthopedic spine doctor for worsening lumbar fractures. With:KATHERINE BRAND APRN-MANUFACTURER Address: [address] [place], [place] [address]- [phone] When:2-4 days [facility] 06-26-2025 Note Discharge Instructions Thank you for allowing [facility] to assist you with your healthcare needs. The following is importantdischarge information regarding your hospital visit. Your Care Team KATHERINE BRAND RACHEL APRN - CNP Your Diagnosis Acute hypoxic respiratory failure [...] that you follow-up with a lung doctor (adjuster arbitrator). Your indicated that she would prefer to make your appointments. Scheduled Follow-Up Appointments Appointment Type When With Where Contact Information StatusPC OV 03/09/2025 03:00 PM EDT KATHERINE BRAND [address] [phone] Confirmed PC OV 05/05/2025 03:00 PM EDT KATHERINE BRAND [address] [phone] Confirmed Follow Up Appointments Follow Up with IWONA ARCHER DO Where:[address] [place] [phone] Additional Information: Please call to schedule with pulmonology for post- hospital appointment regarding 8mm pulmonary nodule. Follow Up with ZANDRA FREIRE MD Where:[address] [facility] [address] [place] [phone] Additional Information: Please call to schedule your post-hospital follow-up appointment with orthopedic spine doctor for worsening lumbar fractures. Follow Up with SUNDAY, KATHERINE S PROOF PRESS OPERATOR-MANUFACTURER When:Within 2-4 days Where:[address] [facility] [place] [phone] The Following Activity and Diet Have Been [...] a meal Duration: 3 Days Pickup at [facility] 181 Unchanged acetaminophen (acetaminophen 500 mg oral tablet) [...] by mouth Once a day Pharmacy Information [facility] 1812: [address] [place], [place] [id number] [phone] Please take this list to your next doctor s visit. Bring all medications you take, including over the counter medications, herbals and other supplements with you to your doctor s visit. Patients and families are reminded to discard old lists and to update any records with all medication providers or retail pharmacies. Medication Leaflets prednisone (JANET Shanks What is the most important information [...] may report side effects to FDA at 8-735-IIN-2995. What other drugs will affect prednisone? Sometimes [...] may affect prednisone. This includes prescription and vaeh-akm-juhruhq medicines, vitamins, and herbal products. Not all [...] to ensure that the information provided by [employer] ('[employer]') is accurate, up-to-date, and complete, but no guarantee is made to that effect. Drug information contained herein may be time sensitive. [employer] information has been compiled for use by healthcare practitioners and consumers in the [place] and therefore [employer] does not warrant that uses outside of the [place] are appropriate, unless specifically indicated otherwise. [employer] drug information does not endorse drugs, diagnose patients or recommend therapy. [employer] drug information isan informational resource designed to [...] effective or appropriate for any given patient. [employer] does not assume any responsibility for any aspect of healthcare administered with the aid of information [employer] provides. The information contained herein is not intended to cover all possible uses, directions, precautions, warnings, drug interactions, allergic reactions, or adverse effects. If you have questions about the drugs you are taking, check with your doctor, nurse or pharmacist. Copyright 6033-8222 OurStory. Version: 10.. Revision Date: 11/26/2018. Education Materials [...] Follow these instructions at home: Medicines Take njva-jyp-jckgwma and prescription medicines only as told by [...] fried or sweet foods. ? Take an bszq-ilo-ccnufmn or prescription medicine for constipation. If you [...] 08/18/2006 Document Revised: 10/14/2019 Document Reviewed: 09/29/2018 ElseYoogaia Patient Education 2020 [employer] Weakness Weakness is a lack of [...] about working with a physical therapist or field trainer to help you get stronger. General instructions Take zdix-lrk-deizjta and prescription medicines only as told by [...] 07/31/2009 Document Revised: 03/24/2019 Document Reviewed: 03/24/2019 Elsevier Patient Education 2020 [employer] Inc. Additional Information VACCINATE! IT SAVES LIVES! Members of the community who have not yet received the COVID-19 vaccine and would like to receive it can visit one of [facility] vaccine clinics. There are many vaccine clinic locations within the [facility]. For locations and available times, please visit https://gettheshot.coronavirus.[place].gov/. It is important to note that some COVID mobile vaccine clinics are held outdoors and may be canceled in rainy or stormy conditions. To learn more about pediatric vaccinations (ages 5-11), we invite you to visit the [facility] webpage. https://www.[employer].org/pages/6172-Ubyyi-Exagjojurry-Qqzcbcqkzj-Ncvwx-Sry stions.htmlTo learn more about the COVID-19 vaccine, we invite you to visit the CDC website for a list of frequently asked questions.https://www.cdc.gov/coronavirus/2019-ncov/vaccines/faq.html [employer] Patient Portal Access Instructions: Stay connected with your healthcare team and access your personal medical information anytime with the [employer] Patient Portal. Please follow the directions below to create your [employer] account: 1.Access the email account you provided upon registration to the hospital/physician office.2.Look for an invitation email from [facility].3.Open the email and access the invitation link: AcceptInvitation to [employer].4.Fill in the required britt to create your account. To access your account, visit Fision/SyntaxinOneCMagellan Spine Technologiest. Click the blue button labeled Access Patient [...] who you will allowto register on the [facility] Patient Portal for access to your information. You can also access the [facility] on the [facility] dylan. Simply click on Patient Portal and then log into your account. If you would like to receive a full copy of your medical records, please contact the [facility] Medical Records Department by calling [phone], Friday through Friday between 8 a.m. and [...] Call your local pharmacy or go to http://Learnerator/[email or web address] to find one close to you.3.Make use of household items: Use cat litter or old coffee grounds to dispose medications if other options arenot available. Mix your drugs with these household products, seal them in an airtight container andthrow it into the garbage. Call [facility]: [phone] to be sure your drugs can be [...] Patient Education Materials Spinal Compression Fracture Weakness, Xwho-yz-Scnt Medication Leaflets prednisone My discharge plan and instructions have been reviewed and explained to me and I,NANCY SY understand my current condition and have read and understand these discharge instructions. I have received a written copy of the plan/instructions. If I have questions, I am aware that I should contact my doctor. Patient/Ream Cutter Signature: Date/Time: Relationship to Patient: Witness Name/Signature: Date/Time: [facility]06-25-2025 Note. MICRO - Microbiology PROCEDURE: Legionella Urine [...] Locations *1: This test was performed at: [facility], [address] [place] [address], [phone] , [facility]06-25-2025 Note. MICRO - Microbiology PROCEDURE: Streptococcus Pneumoniae [...] Locations *1: This test was performed at: [address], [facility] , [facility]06-25-2025 Evaluation + Plan noteExtracted from: Title:History and Physical Author:THAO MERINO APRN-MANUFACTURER Date:02/23/25 1. Bronchitis 2. Acute hypoxic respiratory [...] He will be referred to pulmonology in [place]. Patient and updated on results. L1 compression [...] Appointment Date:03/09/2025 03:00:00 PM Scheduled Provider:KATHERINE BRAND [facility] Appointment Type: OV Appointment Date:05/05/2025 03:00:00 PM Scheduled Provider:KATHERINE BRAND Location[facility] Appointment Type: OV Future Scheduled Tests Laboratory* Vitamin D Level 11/03/24 * Vitamin D Level 07/25/24 [facility] 06-25-2025 Note Date of Service 02/23/2025 Chief Complaint c/o rib pain and sob s/p fall on friday. -loc. Pt states he tripped over a pillow on the floor and fell History of Present Illness 80-year-old male with past medical history significant for hypertension, BPH, anxiety, L1 compression fracture, lumbar stenosis, chronic back pain. Patient presented to [facility] emergency department 02/22/2025 with dyspnea, weakness, falls.He [...] He will be referred to pulmonology in [place]. Patient and updated onresults. 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 Days per week: 1-2 times/week., 03/11/2020 Home/Environment OTher risks in environment: no current smoke exposure. Primary Farebox Repairer: Self, lives with his Leida, and their [...] pneumococcal 13-valent conjugate vaccine: 0 unknown unit (03/30/15) pneumococcal 23-valent vaccine(Pneumovax: 0 unknown unit (10/28/12) SARS-CoV-2 (COVID-19) mRNA-1273 vaccine: 50 mcg (01/10/22) SARS-CoV-2 (COVID-19) mRNA-1273 vaccine: 0.25 unknown unit (07/19/21) SARS-CoV-2 (COVID-19) mRNA-1273 vaccine: 0.5 unknown unit (11/29/20) SARS-CoV-2 (COVID-19) mRNA-1273 vaccine: 0.5 unknown unit (11/01/20) tetanus/diphtheria/pertussMUL.ORD![id number]: 0.5 mL (04/24/23) Code Status Code Status - Ordered -- 02/22/25 20:25:00 EDT, Full Code, Constant Order Digitally Signed by THAO MERINO APRN-BERTHA on 02/23/2025 11:54 AM Digitally Signed by PAULINO MATTSON MD [facility]06-25-2025 Note* Exam Date Time Procedure Performing Provider Status 02/23/25 10:27 AM XR Abdomen AP DERREK JOHN MD ; Auth (Verified) [id number] ORIGINAL EXAMINATION: ONE SUPINE XRAY VIEW(S) OF [...] 02/23/2025 11:03:02 AM Ordering Provider: THAO MERINO [facility]06-24-2025 Note* Exam Date Time Procedure Performing Provider Status 02/22/25 10:[address] Angiography Chest w/ Contrast JANAEFMA Powers DO; Auth (Verified) [id number] ORIGINAL EXAMINATION: CTA OF THE CHEST 02/22/2025 [...] 02/23/2025 4:22:10 PM Ordering Provider: OSMEL BURRELL [facility]06-24-2025 HCoV HKU1 RNA DARYA+non-probe Ql (Nph) Not Detected *NA* (02/22/25 6:51 PM)AH Auto Viro/Sero [id number] Note* Exam Date Time Procedure Performing Provider Status 02/22/25 6:37 PM XR Chest 1 View FAM WAGNER DO; Auth (Verified) [id number] ORIGINAL EXAMINATION: ONE XRAY VIEW OF THE [...] 02/22/2025 7:30:02 PM Ordering Provider: BRYN CONTRERAS [facility]06-24-2025 Note* Exam Date Time Procedure Performing Provider Status 02/22/25 5:59 PM EKG [ED AOH] - CV BRYN CONTRERAS DO; (Verified) ECG Final Report Sinus tachycardia Multiple premature complexes, vent & supraven Borderline T abnormalities, inferior leads Electronic Signature: BRYN CONTRERAS DO 02/22/2025 18:02:45 [facility]12-18-2024 Hospital Discharge instructions Patient Education 08/18/2024 15:45:08 [...] in vomit, stools (black or red color) [phone] [employer] [place] [address]. All rights reserved. This information is not intended as a substitute for professional medical care. Always follow yourhealthcare professional's instructions. Follow Up Care 08/18/2024 14:28:40 With:KATHERINE BRAND Address: [address] [place] [phone] When:2-4 days [facility] 12-18-2024 Note Discharge Instructions Thank you for allowing [facility] to assist you with your healthcare needs. The following is importantdischarge information regarding your hospital visit. Diagnosis from Today's Visit Fall What to Do Next Instructions from Your Care Team No qualifying data available. Post Acute Orders No qualifying data available. You Need to Schedule the Following Appointments Follow Up with KATHERINE BRAND When:Within 2-4 days Where:[address] [place] [phone] Allergies Sallie Nausea Claritin Slo-Niacin atenolol buPROPion [...] in vomit, stools (black or red color) [phone] [employer]. [address] [place] [address]. All rights reserved. This information is not intended as a substitute for professional medical care. Always follow yourhealthcare professional's instructions. Additional Information VACCINATE! IT SAVES LIVES! Members of the community who have not yet received the COVID-19 vaccine and would like to receive it can visit one of [facility] vaccine clinics. There are many vaccine clinic locations within the [facility]. For locations and available times, please visit www.gettheshot.coronavirus.[place].gov/. It is important to note that some COVID mobile vaccine clinics are held outdoors and may be canceled in rainy or stormy conditions. To learn more about pediatric vaccinations (ages 5-11), we invite you to visit the [facility] webpage. https://www.[facility].org/pages/7202-Dpfwn-Vdipjpfxfid-Pdjvwegulf-Rioav-Gnb stions.htmlTo learn more about the COVID-19 vaccine, we invite you to visit the CDC website for a list of frequently asked questions. https://www.cdc.gov/coronavirus/2019-ncov/vaccines/faq.html [facility] Patient Portal Access Instructions: Stay connected with your healthcare team and access your personal medical information anytime with the [employer] [facility] Patient Portal. If you would like a full copy of your medical records please contact the [facility] Medical Records Department Friday through Friday between 8a.m. and 4:30p.m. Please follow the directions below to access the portal: 1.Access the email account you provided upon registration to the [facility].2.Look for an invitation email from [facility].3.Open the email and access the invitation link: Accept Invitation to [employer] [facility]4.Fill in the required britt to create your account. Sign into www.Fision with your username and password that you [...] you will allow to register on the [employer] [facility] Patient Portal for access to your information. You can also access the [employer] Patient Portal on the [facility] dylan. Simply click on Health Records under SocialSamba and then click on the [employer] logo. [...] Call your local pharmacy or go to [email or web address] [email or web address] to find one close to you.3.Make use of household items: Use cat litter or old coffee grounds to dispose medications if other options arenot available. Mix your drugs with these household products, seal them in an airtight container andthrow it into the garbage. Call [facility]: [phone] to be sure your drugs can be [...] aware that I should contact my doctor. Patient/Ream Cutter Signature: Date/Time: Relationship to Patient: Witness Name/Signature: Date/Time: [facility]12-18-2024 Note* Exam Date Time Procedure Performing Provider Status 08/18/24 3:07 PM XR Ribs 2 Views Left /PA Chest (AO) Auth (Verified) [id number] ORIGINAL EXAMINATION: 2 XRAY VIEWS OF LEFT [...] 08/18/2024 3:31:12 PM Ordering Provider: SIERRA BLACK [facility]12-18-2024 Note* Exam Date Time Procedure Performing Provider Status 08/18/24 3:[address] Head or Brain w/o Contrast Auth (Verified) [id number] ORIGINAL EXAMINATION: CT OF THE HEAD WITHOUT [...] Sign Date: 08/18/2024 3:16:57 PM Ordering Provider: [facility]12-18-2024 Note* Exam Date Time Procedure Performing Provider Status 08/18/24 3:06 PM XR Elbow Minimum 3 Views Left Auth (Verified) [id number] ORIGINAL EXAMINATION: THREE XRAY VIEWS OF THE [...] Sign Date: 08/18/2024 3:28:37 PM Ordering Provider: [facility]12-06-2024 Note. MICRO - Microbiology PROCEDURE: Urine Culture [*1] SOURCE: Urine, Clean Catch BODY SITE: COLLECTED DATE/TIME: 08/05/2024 15:13 EST RECEIVED DATE/TIME: 08/05/2024 19:03 EST START DATE/TIME: 08/05/2024 19:03 EST FREE TEXT SOURCE: FINAL REPORTS Final Report [] Verified Date/Time/Personnel: 08/06/2024 14:49 EST 10,000 - 50,000 cfu/ml Mixed growth consistent with normal urogenital yobany. Performing Locations *1: This test was performed at: [facility], [address] [place] [address], [phone]- , [facility]10-11-2024 Note ORIGINAL EXAMINATION: BONE DENSITOMETRY 06/11/2024 2:22 [...] Date: 06/11/2024 3:10:47 PM Ordering Provider: KATHERINE [facility]08-31-2024 Hospital Discharge instructions Patient Education 05/01/2024 12:03:53 [...] Follow these instructions at home: Medicines Take wdnt-nzb-fviinlc and prescription medicines only as told by [...] as fried or sweet foods. ?Take an zugx-rdp-fqzdxqk or prescription medicine for constipation. If you [...] 12/03/2007 Document Revised: 10/03/2018 Document Reviewed: 10/03/2018 [employer] Patient Education [employer]. Follow Up Care 04/26/2024 12:06:12 With:KATHERINE BRAND APRN-MANUFACTURER Address: [address] [place], [place] [phone] When: Unknown With:BRODY PATE DO, Orthopedic Address: [address] [place] [address], [address] [facility] [place] [phone] When:05/25/2024 15:00:00 Comments:This appointment can serve as your post-hospital follow-up appointment. Follow-up as scheduled. [facility] 08-31-2024 Note Discharge Instructions Thank you for allowing [facility] to assist you with your healthcare needs. The following is importantdischarge information regarding your hospital visit. Your Care Team [facility] Your Diagnosis Asthenia Compression fracture of spine Hypertension What to do next Scheduled Follow-Up Appointments Appointment Type When With Where Contact Information StatusPC OV 08/18/2024 03:00 PM EST KATHERINE BRAND PROOF PRESS OPERATOR-[address] [phone] Confirmed Follow Up Appointments Follow Up with KATHERINE BRAND Where:[address] [facility] [place] [phone] Follow Up with BRODY APTE DO, Orthopedic When:05/25/2024 03:00 PM EDT Where:[address] [facility], [address] [place] [facility] [place] [phone] Additional Information: This appointment can serve as [...] remove patches after 12 hours Pickup at [facility] 04/30/24 New potassium chloride (K-Tab 20 mEq oral tablet, extended release) 3 tab(s) by mouth Once a day DUE 05/02/24 Duration: 30 Days Take with food- 2 tabs qam, 1 tab qpm Pickup at [facility] 05/01/24 08 Unchanged acetaminophen (acetaminophen 500 mg oral [...] times a day Duration: 100 Days 05/01/24 08 Unchanged carvedilol (carvedilol 12.5 mg oral tablet) 1 tab(s) by mouth Two (2) times a day 05/01/24 08 Unchanged cyanocobalamin (Vitamin B12 1000 mcg oral tablet) 1 tab(s) by mouth Once a day 05/01/24 08 Unchanged ferrous sulfate (ferrous sulfate 325 mg (65 mg elemental iron) oral delayed release tablet) 1 tab(s) by mouth Once a day 05/01/24 08 Unchanged hydrOXYzine (Vistaril 25 mg oral capsule) [...] Once a day Duration: 90 Days 05/01/24 08 Unchanged melatonin (melatonin 5 mg oral tablet) [...] Once a day 05/01/24 08 Pharmacy Information [facility]: [address] [place], [place] [phone] Please take this list to your next [...] may report side effects to FDA at [phone]-0021. What other drugs will affect potassium chloride? Tell your doctor about all your other medicines, especially: medicine to prevent organ transplant rejection; a diuretic or 'water pill'; or heart or blood pressure medication. This list is not complete. Other drugs may affect potassium chloride, including prescription and wuxl-elg-jhjyatm medicines, vitamins, and herbal products. Not all [...] to ensure that the information provided by OurStory. ('Multum') is accurate, up-to-date, and complete, but no guarantee is made to that effect. Drug information contained herein may be time sensitive. [employer] information has been compiled for use by healthcare practitioners and consumers in the [place] and therefore [employer] does not warrant that uses outside of the [place] are appropriate, unless specifically indicated otherwise. [employer] drug information does not endorse drugs, diagnose patients or recommend therapy. [employer] drug information isan informational resource designed to [...] effective or appropriate for any given patient. [facility] does not assume any responsibility for any aspect of healthcare administered with the aid of information [facility] provides. The information contained herein is not intended to cover all possible uses, directions, precautions, warnings, drug interactions, allergic reactions, or adverse effects. If you have questions about the drugs you are taking, check with your doctor, nurse or pharmacist. Copyright 5327-3239 [facility] Active Circle. Version: 16.. Revision Date: 04/09/2023. Education Materials [...] Follow these instructions at home: Medicines Take jaen-sbv-dzxhryq and prescription medicines only as told by [...] fried or sweet foods. ? Take an axvw-amo-izgusjh or prescription medicine for constipation. If you [...] 12/03/2007 Document Revised: 10/03/2018 Document Reviewed: 10/03/2018 [employer] Patient Education 2020 [employer] Additional Information VACCINATE! IT SAVES LIVES! Members of the community who have not yet received the COVID-19 vaccine and would like to receive it can visit one of [facility] vaccine clinics. There are many vaccine clinic locations within the [facility]. For locations and available times, please visit https://gettheshot.coronavirus.[place].gov/. It is important to note that some COVID mobile vaccine clinics are held outdoors and may be canceled in rainy or stormy conditions. To learn more about pediatric vaccinations (ages 5-11), we invite you to visit the [facility] webpage. https://www.[facility].org/pages/0524-Uwcrv-Ovvcuamsogg-Emjbahcqkj-Ypzlx-Gox stions.htmlTo learn more about the COVID-19 vaccine, we invite you to visit the CDC website for a list of frequently asked questions.https://www.cdc.gov/coronavirus/2019-ncov/vaccines/faq.html [facility] Patient Portal Access Instructions: Stay connected with your healthcare team and access your personal medical information anytime with the [employer] Patient Portal. Please follow the directions below to create your [employer] [facility] account: 1.Access the email account you provided upon registration to the hospital/physician office.2.Look for an invitation email from [facility].3.Open the email and access the invitation link: AcceptInvitation to [employer].4.Fill in the required britt to create your account. To access your account, visit [employer]/UniPayt. Click the blue button labeled Access Patient Portal and then log in with the username and password that you created in the steps above. You will be able to view your test results, lab results, a summary of your visits, upcoming appointments and more. There is also a convenient messaging option where you can send secure messages to your [employer]. In addition, you will have the ability to download any documents or summaries to your computer and/or send the information securely to a physician. Remember that your healthcare information is confidential, so carefully consider who you will allowto register on the [facility] Patient Portal for access to your information. You can also access the [employer] [facility] Patient Portal on the [facility] dylan. Simply click on Patient Portal and then log into your account. If you would like to receive a full copy of your medical records, please contact the [facility] Medical Records Department by calling [phone], Friday through Friday between 8 a.m. and [...] Call your local pharmacy or go to http://bit.ly/0Z1Yu4w to find one close to you.3.Make use of household items: Use cat litter or old coffee grounds to dispose medications if other options arenot available. Mix your drugs with these household products, seal them in an airtight container andthrow it into the garbage. Call [facility]: [phone] to be sure your drugs can be [...] aware that I should contact my doctor. Patient/Ream Cutter Signature: Date/Time: Relationship to Patient: Witness Name/Signature: Date/Time: [facility]08-27-2024 Note Date of Service 04/27/24 History of Present Illness This is a 79-year-old male With past medical history of T11 compression fracture, hypertension, BPH, anxiety. He presented to [facility] on 04/22/2024 with complaints of severe back [...] for pneumonia. He was subsequently admitted to [facility] TCU. 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 Days per week: 1-2 times/week., 03/11/2020 Home/Environment OTher risks in environment: no current smoke exposure. Primary Farebox Repairer: Self, lives with his Leida, and their [...] by THAO MERINO on 04/27/2024 06:06 PM [facility]08-27-2024 Evaluation + Plan noteExtracted from: Title:History and [...] Appointment Date:08/18/2024 03:00:00 PM Scheduled Provider:KATHERINE BRAND [facility] Appointment Type:PC OV [facility] 08-26-2024 Nurse Progress note I read and agree with Yannick Krueger vital signs documentation Digitally Signed by Elissa De La Rosa Tune Up Mechanic on 04/26/2024 03:34 PM [facility]08-26-2024 Hospital Discharge instructions Patient Education 04/26/2024 13:32:24 [...] Follow these instructions at home: Medicines Take tjsx-cyv-csccnnm and prescription medicines only as told by [...] pain is severe. ?Do not take other wwzr-tzz-xoecrvp pain medicines in addition to prescription pain [...] grains, and fresh fruits and vegetables. ?Take iffj-pqv-smeziqm or prescription medicines. ?Limit foods that are [...] or you are no longer ill. Take ubue-wym-ciprono and prescription medicines only as told by [...] Document Reviewed: 01/03/2020 Elsevier Patient Education 2020 [employer]. Follow Up Care 04/22/2024 17:53:30 With:KATHERINE BRAND Address: [address] [place] [address] [phone] When:3-5 days Comments:Please call to schedule your post-hospital follow-up appointment. With:BRODY PATE DO, Orthopedic Address: [address] [place] [address], [address] [facility] [place] [address]- [phone] When:05/25/2024 15:00:00 Comments:This appointment can serve as your post-hospital follow-up appointment with orthopedics. Follow-up as scheduled. [facility] 08-26-2024 Nurse Progress note I agree with Yannick FOX Novelty Maker assessment and vital signs. I was present forall care Digitally Signed by Elissa De La Rosa Tune Up Mechanic on 04/26/2024 01:36 PM [facility]08-26-2024 Note Discharge Instructions Thank you for allowing [facility] to assist you with your healthcare needs. The following is importantdischarge information regarding your hospital visit. Your Care Team Reji Cao CNP Your Diagnosis Acute hypoxic respiratory failure Anxiety Compression fracture of L1 vertebra HTN (hypertension) Hypernatremia Pneumonia What to do next Scheduled Follow-Up Appointments Appointment Type When With Where Contact Information StatusPC OV 08/18/2024 03:00 PM EST KATHERINE BRAND [facility] [address] [place] [address] [phone] Confirmed Follow Up Appointments Follow Up with KATHERINE BRAND When:Within 3-5 days Where:[address] [place] [address]- [phone] Additional Information: Please call to schedule your post-hospital follow-up appointment. Follow Up with BRODY PATE DO, Orthopedic When:05/25/2024 03:00 PM EDT Where:[address] [facility], [address] [facility] [place] [address]- [phone] Additional Information: This appointment can serve as [...] Ordered -- 04/26/24 10:43:00 EDT, FORREST CAO APRN-MANUFACTURER Transfer of Care Oxygen Therapy - Ordered [...] Follow these instructions at home: Medicines Take qwgn-eaf-egrcshj and prescription medicines only as told by [...] is severe. ? Do not take other vsji-ftf-krqltln pain medicines in addition to prescription pain [...] and fresh fruits and vegetables. ? Take sgxv-xgf-ufgyemh or prescription medicines. ? Limit foods that [...] or you are no longer ill. Take ozcj-mpv-zkcssik and prescription medicines only as told by [...] 09/01/2016 Document Revised: 01/03/2020 Document Reviewed: 01/03/2020 ElseYoogaia Patient Education 2020 [employer] Additional Information VACCINATE! IT SAVES LIVES! Members of the community who have not yet received the COVID-19 vaccine and would like to receive it can visit one of [facility] vaccine clinics. There are many vaccine clinic locations within the [facility]. For locations and available times, please visit https://gettheshot.coronavirus.[place].gov/. It is important to note that some COVID mobile vaccine clinics are held outdoors and may be canceled in rainy or stormy conditions. To learn more about pediatric vaccinations (ages 5-11), we invite you to visit the [facility] webpage. https://www.[facility].org/pages/6837-Nhijt-Urefllnioaj-Splfoqjaun-Ngvci-Baa stions.htmlTo learn more about the COVID-19 vaccine, we invite you to visit the CDC website for a list of frequently asked questions.https://www.cdc.gov/coronavirus/2019-ncov/vaccines/faq.html [facility] Patient Portal Access Instructions: Stay connected with your healthcare team and access your personal medical information anytime with the [facility] Patient Portal. Please follow the directions below to create your [facility] account: 1.Access the email account you provided upon registration to the hospital/physician office.2.Look for an invitation email from [facility].3.Open the email and access the invitation link: AcceptInvitation to [facility].4.Fill in the required britt to create your account. To access your account, visit Fision/Wagonhart. Click the blue button labeled Access Patient Portal and then log in with the username and password that you created in the steps above. You will be able to view your test results, lab results, a summary of your visits, upcoming appointments and more. There is also a convenient messaging option where you can send secure messages to your p PWAvider. In addition, you will have the ability to download any documents or summaries to your computer and/or send the information securely to a physician. Remember that your healthcare information is confidential, so carefully consider who you will allowto register on the [facility] Patient Portal for access to your information. You can also access the [facility] Patient Portal on the [facility] dylan. Simply click on Patient Portal and then log into your account. If you would like to receive a full copy of your medical records, please contact the [facility] Medical Records Department by calling [phone], Friday through Friday between 8 a.m. and [...] Call your local pharmacy or go to http://bit.Komli Media/1D6Iy7q to find one close to you.3.Make use of household items: Use cat litter or old coffee grounds to dispose medications if other options arenot available. Mix your drugs with these household products, seal them in an airtight container andthrow it into the garbage. Call [facility]: [phone] to be sure your drugs can be [...] aware that I should contact my doctor. Patient/Ream Cutter Signature: Date/Time: Relationship to Patient: Witness Name/Signature: Date/Time: [facility]08-26-2024 Nurse Progress note I read and agree with Yannick FOX student nursing assessment and vital signs. I was present for all care. 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 Pt usually only drinks cola. at bedside and also updated on plan of care. Digitally Signed by Ines Santiago RN on 04/25/2024 05:12 PM [facility]08-25-2024 Note Date of Service 04/25/2024 Chief Complaint [...] Will need outpatient follow-up with orthospine at [facility] Hypernatremia, sodium 148. Encourage increased water intake. [...] by FORREST CAO on 04/25/2024 11:22 AM [facility]08-24-2024 Note Date of Service 04/04/2024 Chief Complaint [...] Will need outpatient follow-up with orthospine at [facility] Hypertension, blood pressure stable. BPH, continue Flomax Anxiety, continue home medications CODE STATUS: Full code Discussed with Dr. Schmidt Time Spent Total time spent reviewing labs, diagnostics, evaluating the patient, and medical decision makin minutes Digitally Signed by FORREST CAO on 04/24/2024 11:27 AM [facility]08-23-2024 Note. MICRO - Microbiology PROCEDURE: Legionella Urine [...] Locations *1: This test was performed at: [address], [address] [place], [place] [address]29104-23-2024 Note. MICRO - Microbiology PROCEDURE: Streptococcus Pneumoniae [...] Locations *1: This test was performed at: [address], [address] [place] [address])04-23-2024 Evaluation + Plan noteExtracted from: Title:History and Physical Author:RADHA CAO PROOF PRESS OPERATOR-MANUFACTURER Date:04/23/24 Acute hypoxic respiratory fa ilure Pneumonia [...] Appointment Date:08/18/2024 03:00:00 PM Scheduled Provider:KATHERINE BRAND [facility] Appointment Type:PC OV [facility] 08-23-2024 Note Date of Service 04/23/2024 Chief [...] fracture, hypertension, BPH, anxiety. 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 Days per week: 1-2 times/week., 03/11/2020 Home/Environment Primary Farebox Repairer: Self, lives with his Leida, and their [...] BRODY PATE DO on 04/23/2024 11:58 AM [facility]08-23-2024 HCoV 229E RNA DARYA+non-probe Ql (Nph) Not Detected *NA* (04/23/24 10:33 AM)AH Auto Viro/Sero [id number] Note ORIGINAL INDICATION:ORDERING SYSTEM PROVIDED HISTORY: Reason [...] severe facet arthrosis causes severe left and kmep-it-jwvcdzri right foraminal narrowing without central canal stenosis. [...] severe bilateral L4-5, and severe left and yutk-rc-vlbeljth right at L5-S1. 4. Level by level findings as described. Interpreted by: Modesto Lunsford MD Preliminary Report By: Modesto Lunsford MD Electronically signed By Modesto Lunsford MD Dictated Date: 04/23/2024 10:34:51 AM Prelim Date: 04/23/2024 10:53:15 AM Sign Date: 04/23/2024 10:53:15 AM Ordering Provider: [facility] 04-22-2024 Note ORIGINAL EXAMINATION: ONE XRAY VIEW [...] Sign Date: 04/22/2024 10:33:35 PM Ordering Provider: [facility]08-22-2024 Note ORIGINAL EXAMINATION: 3 XRAY VIEWS OF [...] with vertebral cement augmentation. No significant spondylolisthesis. Jkzk-lx-ksbaqvyp multilevel degenerative changes with intervertebral disc height [...] Sign Date: 04/22/2024 10:32:15 PM Ordering Provider: [facility]08-22-2024 Note Sinus rhythm Borderline repolarization abnormality Compared to ECG at 09/25/2018 15:33:45 BORDERLINE ECG Electronic Signature: SIERRA BLACK DO 04/22/2024 18:29:41[facility] 03-19-2024 Note ORIGINAL HISTORY: Fall in August, [...] Sign Date: 11/18/2023 3:56:09 PM Ordering Provider: [facility]2024 Hospital Discharge instructions Patient Education 10/02/2023 19:58:09 [...] itchy skin. Ask your healthcare provider about nuxd-qny-yiggbeg pain relievers. If your pain is severe, [...] and which vaccine is best for you. 8642-5632 [employer] [place] [address], [place] [address]. All rights reserved. This information is not intended as a substitute for professional medical care. Always follow yourhealthcare professional's instructions. Follow Up Care 10/02/2023 19:42:42 With:KATHERINE BRAND APRN-MANUFACTURER Address: [address] [place] [phone] When:2-4 days [facility] 2024 Note Discharge Instructions Thank you for allowing [facility] to assist you with your healthcare needs. The following is importantdischarge information regarding your hospital visit. Diagnosis from Today's Visit Rash Shingles What to Do Next Instructions from Your Care Team No qualifying data available. Post Acute Orders No qualifying data available. You Need to Schedule the Following Appointments Follow Up with KATHERINE BRAND When Within 2-4 days Where: [address] [place] [phone] Allergies Sallie (Nausea) Claritin Slo-Niacin atenolol buPROPion [...] may report side effects to FDA at 8-973-XLS-5939. What other drugs will affect valacyclovir? Valacyclovir can harm your kidneys, especially if you also use certain medicines for infections, cancer, osteoporosis, organ transplant rejection, bowel disorders, high blood pressure, or pain or arthritis (including Advil, Motrin, and Aleve). Other drugs may affect valacyclovir, including prescription and vrtt-ywu-bnrdchb medicines, vitamins, and herbal products. Tell your [...] to ensure that the information provided by [employer]. ('[employer]') is accurate, up-to-date, and complete, but no guarantee is made to that effect. Drug information contained herein may be time sensitive. [employer] information has been compiled for use by healthcare practitioners and consumers in the [place] and therefore [employer] does not warrant that uses outside of the [place] are appropriate, unless specifically indicated otherwise. [employer] drug information does not endorse drugs, diagnose patients or recommend therapy. [employer] drug information isan informational resource designed to [...] effective or appropriate for any given patient. [employer] does not assume any responsibility for any aspect of healthcare administered with the aid of information [employer] provides. The information contained herein is not intended to cover all possible uses, directions, precautions, warnings, drug interactions, allergic reactions, or adverse effects. If you have questions about the drugs you are taking, check with your doctor, nurse or pharmacist. Copyright 1888-6664 [employer]. Version: 12.. Revision Date: 10/27/2020. Education Materials [...] itchy skin. Ask your healthcare provider about kztb-aiy-kwelsfw pain relievers. If your pain is severe, [...] and which vaccine is best for you. 1477-2154 [employer]. [address] [place] [address]. All rights reserved. This information is not intended as a substitute for professional medical care. Always follow yourhealthcare professional's instructions. Additional Information VACCINATE! IT SAVES LIVES! Members of the community who have not yet received the COVID-19 vaccine and would like to receive it can visit one of [facility] vaccine clinics. There are many vaccine clinic locations within the [facility]. For locations and available times, please visit www.gettheshot.coronavirus.[place].gov/. It is important to note that some COVID mobile vaccine clinics are held outdoors and may be canceled in rainy or stormy conditions. To learn more about pediatric vaccinations (ages 5-11), we invite you to visit the [facility] webpage. https://www.[facility].org/pages/6721-Mccfg-Mezlbhcbrka-Sxqkjmgfdg-Xvxmv-Phm stions.htmlTo learn more about the COVID-19 vaccine, we invite you to visit the CDC website for a list of frequently asked questions. https://www.cdc.gov/coronavirus/2019-ncov/vaccines/faq.html [facility] Patient Portal Access Instructions: Stay connected with your healthcare team and access your personal medical information anytime with the [facility] Patient Portal. If you would like a full copy of your medical records please contact the [facility] Medical Records Department Friday through Friday between 8a.m. and 4:30p.m. Please follow the directions below to access the portal: 1.Access the email account you provided upon registration to the [facility].2.Look for an invitation email from [facility].3.Open the email and access the invitation link: Accept Invitation to [facility]4.Fill in the required britt to create your account. Sign into www.Fision with your username and password that you [...] you will allow to register on the [facility] Patient Portal for access to your information. You can also access the [facility] Patient Portal on the Keen Home. Simply click on Health Records under SocialSamba and then click on the Syntaxin logo. HOW TO SAFELY DISPOSE OF PRESCRIPTION [...] Call your local pharmacy or go to http://Atosho.Komli Media/0G2Kc2a to find one close to you.3.Make use of household items: Use cat litter or old coffee grounds to dispose medications if other options arenot available. Mix your drugs with these household products, seal them in an airtight container andthrow it into the garbage. Call [facility]: [phone] to be sure your drugs can be [...] aware that I should contact my doctor. Patient/Ream Cutter Signature: Date/Time: Relationship to Patient: Witness Name/Signature: Date/Time: [facility] summary Author Katarina Fabian [facility] Note Date/Time March 27, 2025 12:2 4pm [facility] Medical Records Department [address] [place] [address] Transfer to Extended Care MR#: [id number] Acct: [id number] Name: NANCY SY Rep #:[id number] : 1945 80 From: Katarina Fabian MD PCP: LOIS Resendiz Status:ADM I N Certification of patient admission REQUIRED AT TIME OF ADMISSION. I CERTIFY THAT POST-HOSPITAL ECF SERVICES ARE REQUIRED TO BE GIVEN ON AN IN-PATIENT BASIS BECAUSE OF THE ABOVE NAMED PATIENT'S NEED FOR INTERMEDIATE CARE ON A CONTINUING BASIS FOR THE CONDITION(S) FOR WHICH HE/SHE WAS RECEIVINGIN-PATIENT HOSPITAL SERVICES PRIOR TO HIS/HER TRANSFER TO THE ECF. 03/27/25 1224<Electronically signed by Katarina Fabian MD> [...] some weeks now and was seen at [facility] where he was told that [...] care for back pain) Katherine Brand NP, MANAGER PRIVACY-C [Primary Care Provider] - Within 1 Week Disposition Disposition (needs filled in before D/C Order can be placed): Jail Facility 03/27/25 1224 <Electronically signed by Katarina Fabian MD> Cosigner Signature (if applicable): CC: MANAGER PRIVACY-C Katherine Brand; Dr. Merry Pham MD; Dr. Zandra Freire MD ~ [facility] Work Phone: Discharge summary Author Katarina [facility] Note Date/Time March 27, 2025 1:40 pm [facility] Medical Records Department [address] [place] [address] Discharge Summary 03/27/25 1337 MR#: [id number] Acct: [id number] Name: NANCY SY Rep #:[id number] : 1945 [id number] From: Katarina Fabian MD PCP: LOIS Resendiz Status:ADM I N Location: [place] [address] Providers Date of Admission: 03/23/25 Date of [...] some weeks now and was seen at [facility] where he was told that [...] spine showed 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 Reading Location: [facility] D/C Instructions Discharge Activity: Return to [...] to establish care for back pain) Katherine rBand MANAGER PRIVACY, MANAGER PRIVACY-C [Primary Care Provider] - Within 1 Week Disposition Disposition (needs filled in before D/C Order can be placed): Jail Facility Charges/Coding Visit Charges Inpatient E&M: 11694 Disch Hosp >30min 03/27/25 1344 <Electronically signed by Katarina Fabian MD> Cosigner Signature (if applicable): CC: MANAGER PRIVACY-C Katherine Brand; Dr. Katarina Fabian MD~ Signed [facility] Work Phone: Evaluation + Plan note No data available for this section [facility] Evaluation + Plan note Future Appointments Appointment Date:12/10/2022 02:30:00 PM Scheduled Provider:KATHERINE BRAND APRN-BERTHA Location[facility] Appointment Type:PC OV Follow Up [facility] Evaluation + Plan note Future Appointments Appointment Date:06/10/2023 02:30:00 PM Scheduled Provider:KATHERINE BRAND Location:[facility] Appointment Type:PC OV [facility] Evaluation + Plan note Future Appointments Appointment Date:04/24/2023 01:30:00 PM Scheduled Provider:KATHERINE BRAND Location:[facility] Appointment Type:PC OV Appointment Date:06/10/2023 02:30:00 PM Scheduled Provider:KATHERINE BRAND PROOF PRESS OPERATOR-BERTHA Location:[facility] Appointment Type:PC OV Future Scheduled Tests Laboratory* Protein Electrophoresis Urine 04/15/23 [facility] Evaluation + Plan note Future Appointments Appointment Date:10/23/2023 02:00:00 PM Scheduled Provider:KATHERINE BRAND PROOF PRESS OPERATOR-MANUFACTURER Location:[facility] Appointment Type:PC OV Future Scheduled Tests Laboratory* Ferritin 10/12/23 * Iron Level 10/12/23 * Protein Electrophoresis Urine 04/15/23 * Vitamin B12 Level 10/12/23 * Complete Blood Count 10/12/23 * Lipid Profile 10/12/23 * Complete Metabolic Panel 10/12/23 [facility] Evaluation + Plan note Future Appointments Appointment Date:10/21/2023 03:00:00 PM Scheduled Provider:KATHERINE BRAND PROOF PRESS OPERATOR-MANUFACTURER Location:[facility] Appointment Type:PC OV Future Scheduled Tests Laboratory* Ferritin 10/12/23 * Iron Level 10/12/23 * Protein Electrophoresis Urine 04/15/23 * Vitamin B12 Level 10/12/23 * Complete Blood Count 10/12/23 * Lipid Profile 10/12/23 * Complete Metabolic Panel 10/12/23 Radiology* MRI Spine Lumbar w/o Contrast 10/15/23 [facility] Evaluation + Plan note Future Appointments Appointment Date:03/09/2024 03:30:00 PM Scheduled Provider:KATHERINE BRAND APRN-MANUFACTURER Location:[facility] Appointment Type:PC OV Future Scheduled Tests Laboratory* Ferritin 10/12/23 * Iron Level 10/12/23 * Protein Electrophoresis Urine 04/15/23 * Vitamin B12 Level 10/12/23 * Complete Blood Count 10/12/23 * Lipid Profile 10/12/23 * Complete Metabolic Panel 10/12/23 [facility] Evaluation + Plan note Future Appointments Appointment Date:08/18/2024 03:00:00 PM Scheduled Provider:KATHERINE BRAND PROOF PRESS OPERATOR-MANUFACTURER Location:[facility] Appointment Type:PC OV [facility] aluation + Plan note Future Appointments Appointment Date:07/08/2024 03:00:00 PM Scheduled Provider:KATHERINE BRAND APRN-MANUFACTURER Location:[facility] Appointment Type:PC OV Appointment Date:08/18/2024 03:00:00 PM Scheduled Provider:KATHERINE BRAND PROOF PRESS OPERATOR-MANUFACTURER Location:[facility] Appointment Type:PC OV Future Scheduled Tests Radiology* BD Bone Density DEXA Axial Skeleton Adult (21 yrs or older) 06/03/24 [facility] Evaluation + Plan note Future Appointments Appointment Date:07/08/2024 03:00:00 PM Scheduled Provider:KATHERINE BRAND Location:[facility] Appointment Type:PC OV Appointment Date:08/18/2024 03:00:00 PM Scheduled Provider:KATHERINE BRAND APRN-BERTHA Location:[facility] Appointment Type:PC OV [facility] Evaluation + Plan note Future Appointments Appointment Date:08/05/2024 02:30:00 PM Scheduled Provider:KATHERINE BRAND Location[facility] Appointment Type:PC OV Future Scheduled Tests Laboratory* Vitamin D Level 07/25/24 [facility] Evaluation + Plan note Future Appointments Appointment Date:11/03/2024 03:00:00 PM Scheduled Provider:KATHERINE BRAND APRN-BERTHA Location:[facility] Appointment Type:PC OV Future Scheduled Tests Laboratory* Prostate Specific Antigen 11/03/24 * Complete Blood Count 11/03/24 * Lipid Profile 11/03/24 * Vitamin D Level 11/03/24 * Vitamin D Level 07/25/24 * Complete Metabolic Panel 11/03/24 [facility] Evaluation + Plan note Future Appointments Appointment Date:11/03/2024 03:00:00 PM Scheduled Provider:KATHERINE BRAND APRN-BERTHA Location:[facility] Appointment Type:PC OV Diagnostic Tests Pending * Testosterone,Free and Total 10/08/24 Future Scheduled Tests Laboratory* Vitamin D Level 11/03/24 * Vitamin D Level 07/25/24 [facility] Evaluation + Plan note Future Appointments Appointment Date:11/03/2024 03:00:00 PM Scheduled Provider:KATHERINE BRAND APRN-BERTHA Location:[facility] Appointment Type:PC OV Future Scheduled Tests Laboratory* Vitamin D Level 3/5/25 * Vitamin D Level 07/25/24 [facility] Evaluation + Plan note Future Appointments Appointment Date:03/23/2025 02:30:00 PM Scheduled Provider:KATHERINE BRAND Location:[facility] Appointment Type:PC OV Appointment Date:05/05/2025 03:00:00 PM Scheduled Provider:KATHERINE BRAND Location:[facility] Appointment Type:PC OV Future Scheduled Tests Laboratory* Vitamin D Level 25 * Vitamin D Level 07/25/24 [facility] Evaluation + Plan note Future Appointments Appointment Date:03/23/2025 02:30:00 PM Scheduled Provider:KATHERINE BRAND Location:[facility] Appointment Type:PC OV Appointment Date:05/05/2025 03:00:00 PM Scheduled Provider:KATHERINE BRADN Location:[facility] Appointment Type:PC OV Future Scheduled Tests Laboratory* Basic Metabolic Panel 03/24/25 * Vitamin D Level 25 * Vitamin D Level 07/25/24 [facility] Evaluation noteNo assessment information available [facility] Work Phone: Evaluation note* Diagnosis Onset Date Resolution Status Admit Date Acute on chronic back pain acute March 23, 2025 8:15pm [facility] Work Phone: Hospital Discharge instructions No data available for this section [facility] Discharge instructionsAdditional Instructions amlodipine stopped as it can cause lower extremity swelling also [facility]: [facility] No data available for this section [facility] Reason for referral (narrative)No reason for [facility] Work [facility]: Chief Complaint and Reason for [...] Found Advance Directives No Advanced Directives Records Found Advance Directive Response Recorded Date/ Time Do you have a Healthcare Power of Turbine Engineer? No March 23, 2025 4:56pm Advance Directive Response Recorded Date/ Time Do you have a Healthcare Power of Turbine Engineer? No March 23, 2025 10:27pm Additional Source [...] Active Member Role/Relationship Status Dates Katherine Brand MANAGER PRIVACY, MANAGER PRIVACY-C Primary Care Provider Active Team Status: Active Member Role/Relationship Status Dates Katherine Brand MANAGER PRIVACY, MANAGER PRIVACY-C Primary Care Provider Active Start: March 23, 2025 Dr. Marco Camacho DO Emergency Provider Active Start: March 23, 2025 Dr. Merry Pham MD Admit Provider Active St art: March 23, 2025 Dr. Merry Pham MD Attending Provider Active Start: March 23, 2025 Dr. Merry Pham MD Other Provider Active St art: March 23, 2025 Team Status: Inactive Member Role/Relationship Status Dates Katherine Brand NP, MANAGER PRIVACY-C Primary Care Provider Active Start: March 23, [...] Member Role/Relationship Status Dates Katherine Brand NP, MANAGER PRIVACY-C Primary Care Provider Active Start: March 24, 2025 Dr. Shady Loving MD Attending Provider Activ e Start: March 24, 2025 Team Status: Active Member Role/Relationship Status Dates Katherine Brand NP, MANAGER PRIVACY-C Primary Care Provider Active Start: March 24, [...] Status: Active Member Role/Relationship Status Dates Katherine Sunday MANAGER PRIVACY, MANAGER PRIVACY-C Primary Care Provider Active Start: March 25, [...] Active Member Role/Relationship Status Dates Katherine Brand MANAGER PRIVACY, MANAGER PRIVACY-C Primary Care Provider Active Start: March 25, [...] Active Member Role/Relationship Status Dates Katherine Brand MANAGER PRIVACY, MANAGER PRIVACY-C Primary Care Provider Active Start: March 26, [...] Active Member Role/Relationship Status Dates Katherine Brand MANAGER PRIVACY, MANAGER PRIVACY-C Primary Care Provider Active Start: March 27, [...] section and content) DATE CREATED AUTHOR 05/06/2024 [facility] ([place]) DATE CREATED AUTHOR AUTHOR'S ORGANIZ ATION 03/13/2025 [facility] DATE CREATED AUTHOR AUTHOR'S ORGANIZ ATION 04/05/2025 [facility] FOR RECORDS PERTAINING TO PATIENTS WHO ARE [...] BE BASED ON THE PRIMARY CLINICAL RECORDS. [facility] [employer] [facility]. provides no warranty or guarantee of the accuracy or completeness of information in this document.
[2025-04-06 06:00] VITALS: PULSE 84; RESP 16
[2025-04-06 10:03] VITALS: BP 138/82; PULSE 109; RESP 16; TEMP 36.3; O2SAT 93
[2025-04-06] MEDS: Potassium Chloride Oral Tablet 20 MEQ PO ×2 (10:07→17:08)
[2025-04-06 10:25] VITALS: PULSE 79; RESP 18
[2025-04-06] MEDS: Albuterol 2.5 MG/3 ML VIAL.NEB. INHALATION (10:25)
[2025-04-06] MEDS: Calcium (Elemental) 500 MG Tablet 1000 MG PO (11:40)
[2025-04-06 17:06] VITALS: BP 124/73; PULSE 103
[2025-04-06] MEDS: MELATONIN 10 MG TABLET 5 MG PO (22:20)
[2025-04-07] MEDS: Potassium Chloride Oral Tablet 20 MEQ PO ×2 (09:12→16:47)
[2025-04-07 10:32] VITALS: BP 105/68; PULSE 54; RESP 18; TEMP 36.8; O2SAT 91
--- NOTE | 2025-04-07 11:06 | MDS.RN ---
Information for the MDS was obtained from review of the clinical record, interview of resident, staff, and direct observation of resident?s care.
[2025-04-07] MEDS: Calcium (Elemental) 500 MG Tablet 1000 MG PO (11:58)
[2025-04-07] MEDS: MELATONIN 10 MG TABLET 5 MG PO (20:48)
[2025-04-08 06:14] VITALS: PULSE 81; RESP 18; O2SAT 92
[2025-04-08] MEDS: Potassium Chloride Oral Tablet 20 MEQ PO ×2 (09:25→17:25)
[2025-04-08] MEDS: Senna/Docusate Sodium 1 Tablet PO (09:29)
[2025-04-08] MEDS: Calcium (Elemental) 500 MG Tablet 1000 MG PO (12:28)
[2025-04-08 14:51] VITALS: BP 114/71; PULSE 86; RESP 18; TEMP 36.6; O2SAT 96
[2025-04-08] MEDS: MELATONIN 10 MG TABLET 5 MG PO (22:29)
[2025-04-09 08:32] VITALS: BP 160/84; PULSE 96; RESP 16; TEMP 36.5; O2SAT 90
--- NOTE | 2025-04-09 08:37 | EKG12_ITS ---
Test Reason : chest pressure Blood Pressure : */* mmHG Vent. Rate : 91 BPM Atrial Rate : 91 BPM P-R Int : 136 ms QRS Dur : 80 ms QT Int : 368 ms P-R-T Axes : 42 -15 -8 degrees QTcB Int : 452 ms Normal sinus rhythm Normal ECG When compared with ECG of 23-Mar-2025 17:34, Premature ventricular complexes are no longer Present Nonspecific T wave abnormality no longer evident in Lateral leads Confirmed by KEVEN GOODSON, PABLO ([id number]), editorial clerk BEVERLEY ZAPATA ([id number]) on 04/11/2025 1:00:29 PM Referred By: Luis Fernando Confirmed By: PABLO BACA MD
[2025-04-09 08:40] VITALS: RESP 18; O2SAT 94
--- NOTE | 2025-04-09 08:40 | NURSING ---
Addendum entered by Julia Moreno 04/09/25 09:05: pt also stated his legs were clenched up. Original Note: pt c/o tightness from abdomen up to chest vitals obtained, oxygen sat 90% on room air, oxygen applied 2 liters, sat 94%. pt does have history of anxiety and feels this may be it, was using ativan at home but was having dreams, that felt real. pt resting in bed, EKG ordered. will update dr houston. call light in reach.
[2025-04-09] MEDS: Ergocalciferol 1.25 MG (50, 000 UNIT) Capsule PO (08:46)
[2025-04-09] MEDS: Potassium Chloride Oral Tablet 20 MEQ PO ×2 (08:47→18:08)
[2025-04-09] MEDS: hydrOXYzine PAM 25 MG Capsule PO ×2 (08:53→22:33)
--- NOTE | 2025-04-09 09:01 | NURSING ---
pt feeling better, PRN vistaril given. mats on floor at bedside. EKG NSR. HOB elevated, oxygen maintained.
--- NOTE | 2025-04-09 09:11 | NURSING ---
pt eating uncrustable PB jelly sandwich, pt refused brkfst. Sadia Ensure given from brkShhmoozet tray order. Encouraged pt to drink. spoke with Leida, . she expressed that pt has had anxiety their whole marriage. will monitor. pt states feeling better.
[2025-04-09 09:58] VITALS: O2SAT 95
--- NOTE | 2025-04-09 10:52 | NURSING ---
Addendum entered by Julia Moreno 04/09/25 17:06: dr houston updated on pt c/o this AM & EKG results, no new orders, PRN vistaril effective.continue plan of care. Original Note: pt feeling better, did therapy. oxygen 95% on room air. resting in bed, HOB elevated.
[2025-04-09] MEDS: Calcium (Elemental) 500 MG Tablet 1000 MG PO (12:23)
[2025-04-09 18:11] VITALS: BP 120/71; PULSE 101
[2025-04-09] MEDS: MELATONIN 10 MG TABLET 5 MG PO (22:34)
[2025-04-10 05:21] VITALS: PULSE 65; RESP 16
[2025-04-10 08:24] VITALS: BP 153/87; PULSE 89; RESP 16; TEMP 36.5; O2SAT 92
[2025-04-10] MEDS: Potassium Chloride Oral Tablet 20 MEQ PO ×2 (08:33→17:27)
[2025-04-10] MEDS: hydrOXYzine PAM 25 MG Capsule PO (08:44)
[2025-04-10] MEDS: Albuterol 2.5 MG/3 ML VIAL.NEB. INHALATION (09:05)
[2025-04-10 09:06] VITALS: PULSE 82; RESP 18
[2025-04-10] MEDS: Calcium (Elemental) 500 MG Tablet 1000 MG PO (12:08)
--- NOTE | 2025-04-10 12:10 | NURSING ---
pt was given vistaril this AM per his request. pt was having another episode this AM, this time he states he does not feel like its anxiety that it may be Parkinsons. pt does have tremoring of bilat hands, legs lock up & frequent falls at home.pt reported that his mother was diagnosed with Parkinsons when she was living. teaching booklet given regarding symptoms. will udpate dr houston. pt is up in chair, vistaril effective. call light in reach.
[2025-04-10 17:25] VITALS: BP 150/88; PULSE 85
[2025-04-10] MEDS: MELATONIN 10 MG TABLET 5 MG PO (21:56)
[2025-04-11 05:32] VITALS: PULSE 64; RESP 18; O2SAT 96
[2025-04-11 05:42] LABS: Hematocrit 37.2 % (40-54); Hemoglobin 12.3 g/dL (13.0-16.5); Immature Granulocytes Count 0.050 X10^3/uL (0.0-0.0); Mean Corp Hgb Conc 33.1 g/dL (32-36); Mean Corpuscular Volume 96.1 fL (80-94); Mean Platelet Vol. 9.4 fl (6.2-12.0); NRBC Flagged by Analyzer 0 % (0-5); Platelet Count 278 K/mm3 (150-450); RBC Distribution Width CV 13.1 % (11.6-14.6); RBC Distribution Width SD 46.2 fl (35.1-43.9); Red Blood Count 3.87 M/mm3 (4.6-6.2); White Blood Count 6.5 K/mm3 (4.4-11.0)
[2025-04-11 06:22] LABS: Anion Gap 9 (5-15); BUN 34 mg/dL (4-19); BUN/Creat Ratio 37.3 RATIO (10-20); Calcium,Total 10.0 mg/dL (7.6-11.0); Carbon Dioxide 28.3 mmol/L (21.0-32.0); Chloride 103 mmol/L (98-108); Estimated Creatinine Clearance 61.54 ml/min (50-250); Glucose 103 mg/dL (70-99); Potassium 4.6 mmol/L (3.3-5.1)
--- NOTE | 2025-04-11 08:51 | NURSING ---
dr houston in to speak with pt about his concerns regarding parkinsons. new order for carvidopa/levadopa to start before lunch. pt agreeable.
[2025-04-11 09:47] VITALS: BP 106/63; PULSE 104; RESP 16; TEMP 36.4; O2SAT 92
[2025-04-11] MEDS: Potassium Chloride Oral Tablet 20 MEQ PO ×2 (09:50→16:43)
[2025-04-11] MEDS: Calcium (Elemental) 500 MG Tablet 1000 MG PO (12:06)
[2025-04-11 16:46] VITALS: BP 114/72; PULSE 94
[2025-04-11] MEDS: MELATONIN 10 MG TABLET 5 MG PO (22:44)
[2025-04-12] MEDS: Potassium Chloride Oral Tablet 20 MEQ PO ×2 (08:58→17:23)
[2025-04-12 09:02] VITALS: BP 109/54; PULSE 87; RESP 18; TEMP 36.5; O2SAT 92
[2025-04-12] MEDS: Calcium (Elemental) 500 MG Tablet 1000 MG PO (12:47)
[2025-04-12 15:00] VITALS: BMI 23.7
[2025-04-12 17:26] VITALS: BP 126/74; PULSE 91; O2SAT 95
[2025-04-12 19:47] VITALS: PULSE 65; RESP 16; O2SAT 95
[2025-04-12] MEDS: MELATONIN 10 MG TABLET 5 MG PO (22:14)
--- NOTE | 2025-04-13 00:57 | NURSING ---
Declined routine senna despite education, Patient reports moderate BM on 04/11/25 PM. States I don't need anything to help me with my bowels they are moving fine. Patient A&Ox3.
--- NOTE | 2025-04-13 06:24 | NURSING ---
Patient requesting Lovenox be discontinued despite education, offered x3 attempts, pt. requests Dr. gould be notified of request to D/c med this AM before patient will accept AM dose. Written communication left for Dr. Gould. 0600 dose of lovenox not administered at this time as ordered per pt. request.
[2025-04-13 06:29] VITALS: PULSE 64; RESP 18; O2SAT 94
[2025-04-13] MEDS: Potassium Chloride Oral Tablet 20 MEQ PO ×2 (09:00→16:38)
[2025-04-13] MEDS: Senna/Docusate Sodium 1 Tablet PO (09:00)
[2025-04-13 09:03] VITALS: BP 123/65; PULSE 88; RESP 17; TEMP 36.5; O2SAT 93
[2025-04-13] MEDS: Calcium (Elemental) 500 MG Tablet 1000 MG PO (12:01)
[2025-04-13 16:40] VITALS: BP 107/58; PULSE 69
[2025-04-13] MEDS: MELATONIN 10 MG TABLET 5 MG PO (22:53)
[2025-04-14] MEDS: hydrOXYzine PAM 25 MG Capsule PO (00:29)
[2025-04-14 06:25] VITALS: BP 132/58; PULSE 85; RESP 16; TEMP 36.3; O2SAT 94
--- NOTE | 2025-04-14 06:25 | NURSING ---
Pt found on floor next to bed laying on his right side with his head against the wall. Pt stated he fell out of bed and hit his head on the wall. Neuro assessment completed and vitals taken. With the help of two other nurses, this nurse assisted pt to a sitting position, then up and back to bed. Pt stated, If I had had 4 bed rails on my bed, I wouldn't have fallen out of bed. Are you going to put more rails on my bed now? When educated that bed rails are considered a restraint and that we would not be able to put more bed rails on his bed, pt stated, Why not? Do you want me to fall again? Pt re-educated and teaching reinforced by other nurses. Pt positioned comfortably with call light and personal belongings within reach. Dr. Gould notified and CT of head without contrast ordered.
--- NOTE | 2025-04-14 07:16 | NURSING ---
Pt off unit for head CT
--- NOTE | 2025-04-14 07:30 | NURSING ---
Pt returned from head CT
[2025-04-14 10:30] VITALS: BP 114/73; PULSE 89; RESP 17; TEMP 36.4; O2SAT 93
[2025-04-14] MEDS: Potassium Chloride Oral Tablet 20 MEQ PO ×2 (10:33→16:18)
[2025-04-14] MEDS: Senna/Docusate Sodium 1 Tablet PO (10:35)
[2025-04-14] MEDS: Calcium (Elemental) 500 MG Tablet 1000 MG PO (14:04)
[2025-04-14 16:16] VITALS: BP 111/69; PULSE 103
[2025-04-14] MEDS: MELATONIN 10 MG TABLET 5 MG PO (22:39)
[2025-04-15 10:10] VITALS: BP 122/63; PULSE 90; RESP 17; TEMP 36.4; O2SAT 91
[2025-04-15] MEDS: Potassium Chloride Oral Tablet 20 MEQ PO ×2 (10:13→16:33)
[2025-04-15] MEDS: Calcium (Elemental) 500 MG Tablet 1000 MG PO (12:07)
[2025-04-15 16:42] VITALS: PULSE 84
[2025-04-15] MEDS: MELATONIN 10 MG TABLET 5 MG PO (22:20)
[2025-04-16] MEDS: Potassium Chloride Oral Tablet 20 MEQ PO ×2 (09:19→17:30)
[2025-04-16 09:25] VITALS: BP 103/61; PULSE 99; RESP 18; TEMP 36.4; O2SAT 94
[2025-04-16] MEDS: Ergocalciferol 1.25 MG (50, 000 UNIT) Capsule PO (11:41)
[2025-04-16] MEDS: Calcium (Elemental) 500 MG Tablet 1000 MG PO (11:41)
[2025-04-16 17:35] VITALS: BP 131/73; PULSE 89
[2025-04-16] MEDS: MELATONIN 10 MG TABLET 5 MG PO (21:22)
[2025-04-16 22:12] VITALS: PULSE 80
[2025-04-17 02:39] VITALS: PULSE 78
[2025-04-17] MEDS: Senna/Docusate Sodium 1 Tablet PO ×2 (09:03→22:45)
[2025-04-17] MEDS: Potassium Chloride Oral Tablet 20 MEQ PO ×2 (09:03→17:16)
[2025-04-17 09:06] VITALS: BP 110/63; PULSE 97; RESP 18; TEMP 36.6; O2SAT 92
[2025-04-17] MEDS: Calcium (Elemental) 500 MG Tablet 1000 MG PO (12:22)
[2025-04-17 17:18] VITALS: BP 122/69; PULSE 89
[2025-04-17] MEDS: MELATONIN 10 MG TABLET 5 MG PO (22:43)
[2025-04-18 05:48] LABS: Hematocrit 35.0 % (40-54); Hemoglobin 11.9 g/dL (13.0-16.5); Immature Granulocytes Count 0.040 X10^3/uL (0.0-0.0); Mean Corp Hgb Conc 34.0 g/dL (32-36); Mean Corpuscular Volume 95.1 fL (80-94); Mean Platelet Vol. 9.3 fl (6.2-12.0); NRBC Flagged by Analyzer 0 % (0-5); Platelet Count 219 K/mm3 (150-450); RBC Distribution Width CV 12.6 % (11.6-14.6); RBC Distribution Width SD 44.3 fl (35.1-43.9); Red Blood Count 3.68 M/mm3 (4.6-6.2); White Blood Count 7.1 K/mm3 (4.4-11.0)
[2025-04-18 06:20] LABS: Anion Gap 9 (5-15); BUN 39 mg/dL (4-19); BUN/Creat Ratio 42.0 RATIO (10-20); Calcium,Total 9.6 mg/dL (7.6-11.0); Carbon Dioxide 24.9 mmol/L (21.0-32.0); Chloride 106 mmol/L (98-108); Estimated Creatinine Clearance 60.87 ml/min (50-250); Glucose 103 mg/dL (70-99); Potassium 4.4 mmol/L (3.3-5.1)
[2025-04-18 09:01] VITALS: RESP 19; TEMP 36.3; O2SAT 95
[2025-04-18] MEDS: Senna/Docusate Sodium 1 Tablet PO ×2 (09:03→22:19)
[2025-04-18] MEDS: Potassium Chloride Oral Tablet 20 MEQ PO ×2 (09:03→17:10)
[2025-04-18 09:11] VITALS: BP 132/79
[2025-04-18] MEDS: Calcium (Elemental) 500 MG Tablet 1000 MG PO (12:14)
[2025-04-18 22:00] VITALS: PULSE 82; RESP 16; O2SAT 93
[2025-04-18] MEDS: MELATONIN 10 MG TABLET 5 MG PO (22:17)
[2025-04-19 10:00] VITALS: PULSE 80; RESP 15; O2SAT 95
[2025-04-19] MEDS: Potassium Chloride Oral Tablet 20 MEQ PO ×2 (10:45→17:32)
[2025-04-19] MEDS: Senna/Docusate Sodium 1 Tablet PO ×2 (10:46→22:38)
[2025-04-19] MEDS: Calcium (Elemental) 500 MG Tablet 1000 MG PO (13:36)
[2025-04-19 15:00] VITALS: BMI 23.7
[2025-04-19 16:00] VITALS: BP 130/70; PULSE 85; RESP 17; TEMP 36.7; O2SAT 95
[2025-04-19] MEDS: MELATONIN 10 MG TABLET 5 MG PO (22:38)
[2025-04-20 08:32] VITALS: BP 103/69; PULSE 99; RESP 17; TEMP 36.8; O2SAT 94
[2025-04-20] MEDS: Potassium Chloride Oral Tablet 20 MEQ PO ×2 (08:36→17:03)
[2025-04-20] MEDS: Senna/Docusate Sodium 1 Tablet PO ×2 (08:37→20:05)
[2025-04-20] MEDS: Calcium (Elemental) 500 MG Tablet 1000 MG PO (11:54)
--- NOTE | 2025-04-20 16:13 | CASEMGMT ---
Addendum entered by Sophy Perry 04/21/25 08:56: SW sent referral to [facility] via [facility] Original Note: Social Work SW followed up with pt and at bedside after therapy training. First, pt elected to DC home on 04/23, but after further discussion, pt and elected to DC 04/27. Pt had some questions and concerns about the Sinamet. SW reported that therapy noticed an improved with pt's functional abilities with the medication and a decline since pt elected to stop med. Pt and agreed to restart med and see how the next week goes. Dr. Gould is becoming pt's new PCP and will continue to monitor. Pt/ appreciative. SW offered [facility] vs OP therapy. [facility]. Pt also requesting a 3-in-1 commode. SW to coordinate. can transport home. - Written communication left for DR to restart Sinament. SW phoned referral to [facility] for PT/OT. Plan: DC home with 04/27, [facility] PT/OT, 3-in-1 commode Sophy Perry AFTER SCHOOL PROGRAM COORDINATOR DERRICK BOAT LEVER OPERATOR
[2025-04-20 17:04] VITALS: BP 104/78; PULSE 104
[2025-04-20 17:07] VITALS: RESP 16
--- NOTE | 2025-04-20 17:11 | NURSING ---
Addendum entered by Julia Moreno 04/20/25 18:07: dr houston restarted sinemet first dose tomorrow Original Note: pt requesting to restart sinemet, feels that his limbs/neck/abdomen are stiffening up more since stopping it. message left for dr houston. pt states him and discussed it.
--- NOTE | 2025-04-20 19:48 | DS.PCM_ITS ---
Providers Date of Admission: 03/27/25 Primary Care Physician: LOIS Resendiz Reason For Visit: ACUTE CHRONIC BACK PAIN WORSENING Diagnosis Discharge Diagnosis (1) Debility: Status: Acute Code(s): R53.81 - Other malaise (2) Bilateral lower extremity edema: Status: Acute Code(s): R60.0 - Localized edema (3) Acute respiratory failure with hypoxia: Status: Acute Code(s): J96.01 - Acute respiratory failure with hypoxia (4) Atelectasis: Status: Acute Code(s): J98.11 - Atelectasis (5) Compression fracture of T9 vertebra: Status: Acute Code(s): S22.070A - Wedge compression fracture of T9-T10 vertebra, initial encounter for closed fracture (6) Compression fracture of L1 lumbar vertebra: Status: Acute Code(s): S32.010A - Wedge compression fracture of first lumbar vertebra, initial encounter for closed fracture (7) Osteoporosis: Status: Inactive Code(s): M81.0 - Age-related osteoporosis without current pathological fracture Qualifiers: Osteoporosis type: age-related Presence of current pathological fracture: without current pathological fracture Qualified Code(s): M81.0 - Age- related osteoporosis without current pathological fracture (8) Essential (primary) hypertension: Status: Acute Code(s): I10 - Essential (primary) hypertension (9) Anxiety: Status: Acute Code(s): F41.9 - Anxiety disorder, unspecified (10) B12 deficiency: Status: Acute Code(s): E53.8 - Deficiency of other specified B group vitamins (11) Insomnia: Status: Acute Code(s): G47.00 - Insomnia, unspecified (12) Depression: Status: Acute Code(s): F32.A - Depression, unspecified (13) BPH (benign prostatic hyperplasia): Status: Acute Code(s): N40.0 - Benign prostatic hyperplasia without lower urinary tract symptoms (14) Vitamin D deficiency: Status: Acute Code(s): E55.9 - Vitamin D deficiency, unspecified Plan 80 year old male with below past medical history hospitalized for bilateral lower extremity edema (dvt ruled out), acute respiratory failure with hypoxia 2/2 atelectasis, complicated by T9 compression fracture, L1 compression fracture, elevated troponin 2/2 demand ischemia, admitted to TCU with debility, here for rehabilitation, strengthening, prior to discharge home with . * Debility - PT/OT. * Pain - Tylenol 1000mg q6 prn pain (1-10). * Bowel - senna/colace 1 tablet bid, Dulcolax 10mg pr daily prn. * Adult immunization - Administer pneumonia vaccine, covid vaccine, flu vaccine as appropriate. * DVT prophylaxis - Lovenox 40mg sc daily. * Compression fracture T9, L1 - Dr. Torres as outpatient. * Atelectasis - Albuterol 2.5mg neb q6 prn * Calcium deficiency - Calcium 1000mg po lunch. * Hypertension - Coreg 3.125mg bidcm, Losartan 100mg daily. * Vitamin B12 deficiency - B12 1000mcg daily. * Vitamin D deficiency - D 1.25mg qweek. * Edema - Furosemide 40mg daily. * Anxiety - Hydroxyzine 25mg 4x/day. * Insomnia - Melatonin 5mg qhs. * Hypokalemia - K 3.2, KCL 40meq po x 1 dose, KCL 20meq twice daily, trend bmp. * BPH - Tamsulosin 0.4mg daily. The following psychotropic medication was present on admission: Buspar 15mg bid. Psychotropic medication therapy is indicated for a diagnosis of: Anxiety. Based on my clinical evaluation, continuation of the medication is necessary at this time. Gradual dose reduction plan (select one): ____ GDR will be attempted. Will monitor patient symptoms and behaviors in response to GDR. __x__ GRD contraindicated. 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 The following psychotropic medication was present on admission: Paroxetine 40mg daily. Psychotropic medication therapy is indicated for a diagnosis of: Major Depression. Based on my clinical evaluation, continuation of the medication is necessary at this time. Gradual dose reduction plan (select one): ____ GDR will be attempted. Will monitor patient symptoms and behaviors in response to GDR. __x__ GRD contraindicated. Reason contraindicated: stable chronic chcf use. Medications at Discharge Home Medications carvedilol 3.125 mg tablet 3.125 mg PO BID BP 07/09/23 buspirone 15 mg tablet 15 mg PO BID Mood 07/26/24 calcium carbonate 1,000 mg PO QDAY Supplement 07/26/24 paroxetine HCl 40 mg tablet 40 mg PO QDAY Mood 07/26/24 tamsulosin 0.4 mg capsule (Flomax) 0.4 mg PO QDAY Urinary Retention 07/26/24 cholecalciferol (vitamin D3) 1,250 mcg (50,000 unit) capsule 1,250 mcg PO QWEEK Supplement 09/23/24 acetaminophen 500 mg tablet 1,000 mg (2 x 500 mg) PO Q6H PRN PRN Pain Score 1-10 #0 tabs 04/20/25 carbidopa 25 mg-levodopa 100 mg tablet 1 tab PO TIDAC 30 days #90 tabs 04/20/25 furosemide 20 mg tablet 20 mg PO DAILY 30 days #30 tabs 04/20/25 losartan 100 mg tablet 100 mg PO DAILY 30 days #30 tabs 04/20/25 potassium chloride 20 mEq tablet,extended release(part/cryst) 20 meq PO BIDCM 30 days #60 tabs 04/20/25 Hospital Course Operations None Procedures None Summary of Care Provided Minutes Spent on Discharge: 35 Hospital Course: 80 year old male with below past medical history hospitalized for bilateral lower extremity edema (dvt ruled out), acute respiratory failure with hypoxia 2/2 atelectasis, complicated by T9 compression fracture, L1 compression fracture, elevated troponin 2/2 demand ischemia, admitted to TCU with debility, here for rehabilitation, strengthening, prior to discharge home with . Jace given Sinemet 25/100mg tid therapeutic trial for Parkinson Disease, he benefited, will continue, consider referral to Neurology. Discharge home with 04/27/2025, [facility] PT/OT, 3-in-1 commode. 3-in-1 commode: Patient is confined to a single room unable to safely access toilet. Patient is confined to one level of the home environment and there is no toilet on that level. Physical Exam Const alert General Appearance: cooperative HEENT normocephalic Eyes PERRL and EOMs intact bilaterally Neck supple, no JVD and no carotid bruits Resp normal respiratory effort, normal air movement and clear to auscultation bilaterally Cardio regular rate and regular rhythm GI normal to inspection, nondistended, normoactive bowel sounds, non-tender and non-distended Extremity normal capillary refill General Extremity: Negative for edema Skin no rashes or lesions noted General Skin Exam: no breakdown Psych affect normal Appearance: appropriate Weight / BMI Weight Weight: 68.538 kg Body Mass Index (BMI) 23.7 ABG / Lab / Microbiology Data 04/18/25 05:40 04/18/25 05:40 Microbiology: Microbiology 03/30/25 12:45 Urine, Clean Catch Urine Culture - Final Mixed Gram Positive Organisms D/C Instructions Discharge Activity: Return to Normal Activity, May Shower and Use Walker Weight Bearing Status: Weight bearing as tolerated Call your doctor if you observe: Fever of 101 or Higher, Inability to urinate, Inability to have a bowel movement, Shortness of breath, Dizziness, Fainting spells, Swelling in the ankles, Chest pain and Uncontrolled pain DC O2, CPAP, BIPAP Needs Home O2 Discharge instructions: No Additional Instructions: Discharge home with 04/27/2025, [facility] PT/OT, 3-in-1 commode. 3-in-1 commode: Patient is confined to a single room unable to safely access toilet. Patient is confined to one level of the home environment and there is no toilet on that level. Meaningful Use Info Meaningful Use Meaningful Use Diagnoses (Choose all that apply): None applicable Discharge Plan Admission Admit Date/Time: 03/27/25 14:11 Primary Reason for Your Visit: Debility. Attending Provider: Sony Gould Chi Primary Care Provider: Katherine Brand INDUSTRIAL HYGIENIST Instructions Additional Instructions / Restrictions: Discharge home with 04/27/2025, [facility] PT/OT, 3-in-1 commode. 3-in-1 commode: Patient is confined to a single room unable to safely access toilet. Patient is confined to one level of the home environment and there is no toilet on that level. Discharge Orders/Prescriptions Prescriptions: New acetaminophen 500 mg Tablet 1,000 mg PO Q6H PRN PRN (Reason: Pain Score 1-10) Qty: 0 0RF potassium chloride 20 mEq Tablet,Er Particles/Crystals 20 meq PO BIDCM 30 Days Qty: 60 0RF furosemide 20 mg Tablet 20 mg PO DAILY 30 Days Qty: 30 0RF carbidopa-levodopa 25-100 mg Tablet 1 tab PO TIDAC 30 Days Qty: 90 0RF losartan 100 mg Tablet 100 mg PO DAILY 30 Days Qty: 30 0RF Continued carvedilol 3.125 mg tablet 3.125 mg PO BID Rx Instructions: must administer with a meal/food calcium carbonate 500 mg calcium (1,250 mg) tablet,chewable 1,000 mg PO QDAY paroxetine HCl 40 mg tablet 40 mg PO QDAY tamsulosin [Flomax] 0.4 mg capsule 0.4 mg PO QDAY buspirone 15 mg tablet 15 mg PO BID cholecalciferol (vitamin D3) 1,250 mcg (50,000 unit) capsule 1,250 mcg PO QWEEK Patient Comments: Take weekly on Friday Discontinued losartan 25 mg tablet 100 mg PO DAILY cyanocobalamin (vitamin B-12) 1,000 mcg capsule 1,000 mcg PO QDAY melatonin 5 mg capsule 5 mg PO QHS PRN acetaminophen [Tylenol] 325 mg tablet 650 mg PO Q6H PRN (Reason: pain) hydroxyzine HCl 25 mg tablet 25 mg PO 4X/DAY furosemide 40 mg Tablet 40 mg PO DAILY Qty: 30 2RF albuterol sulfate 90 mcg/actuation aerosol powdr breath activated 1 inh inhalation Q6H PRN (Reason: shortness of breath) Qty: 1 0RF potassium chloride [K-Tab] 20 mEq tablet extended release 20 meq PO DAILY Qty: 30 0RF Referrals / Follow Up: Sony Gould Chi, MD [Med Staff - Active Staff] - Within 1 Week (Transition Care Management appt.) Disposition Disposition (needs filled in before D/C Order can be placed): Home Health Service
[2025-04-20] MEDS: MELATONIN 10 MG TABLET 5 MG PO (20:04)
[2025-04-21 06:37] VITALS: PULSE 82; RESP 16; O2SAT 96
[2025-04-21 09:24] VITALS: BP 140/81; PULSE 114; RESP 16; TEMP 36.6; O2SAT 94
[2025-04-21] MEDS: Potassium Chloride Oral Tablet 20 MEQ PO ×2 (09:29→16:52)
[2025-04-21] MEDS: Senna/Docusate Sodium 1 Tablet PO ×2 (09:30→23:06)
[2025-04-21] MEDS: Calcium (Elemental) 500 MG Tablet 1000 MG PO (11:07)
[2025-04-21 16:57] VITALS: BP 85/47; PULSE 111
--- NOTE | 2025-04-21 18:03 | NURSING ---
pt with low BP & elevated HR. dr houston notified, new order to hold coreg but give sinemet. pt concerned its due to the sinemet medication, educated pt on medication & parkinsons. pt will discuss with dr houston at follow up appt as new patient.
[2025-04-21 19:23] VITALS: BP 98/66; PULSE 92
[2025-04-21 23:00] VITALS: BP 121/73; PULSE 107; RESP 16; O2SAT 94
[2025-04-21] MEDS: MELATONIN 10 MG TABLET 5 MG PO (23:05)
[2025-04-22 10:06] VITALS: BP 101/60; PULSE 101; RESP 17; TEMP 36.3
[2025-04-22] MEDS: Potassium Chloride Oral Tablet 20 MEQ PO ×2 (10:10→16:40)
[2025-04-22] MEDS: Senna/Docusate Sodium 1 Tablet PO ×2 (10:12→23:13)
[2025-04-22] MEDS: Calcium (Elemental) 500 MG Tablet 1000 MG PO (14:21)
[2025-04-22 14:24] VITALS: BP 110/67; PULSE 118; TEMP 36.5; O2SAT 97
[2025-04-22] MEDS: hydrOXYzine PAM 25 MG Capsule PO (18:17)
[2025-04-22] MEDS: MELATONIN 10 MG TABLET 5 MG PO (23:12)
[2025-04-23 07:11] VITALS: PULSE 80; O2SAT 92
[2025-04-23 10:01] VITALS: BP 108/61; PULSE 82; RESP 18; TEMP 36.4; O2SAT 92
[2025-04-23] MEDS: Potassium Chloride Oral Tablet 20 MEQ PO ×2 (10:06→17:14)
[2025-04-23] MEDS: Senna/Docusate Sodium 1 Tablet PO ×2 (10:07→22:11)
[2025-04-23] MEDS: Ergocalciferol 1.25 MG (50, 000 UNIT) Capsule PO (10:07)
[2025-04-23] MEDS: Calcium (Elemental) 500 MG Tablet 1000 MG PO (12:26)
[2025-04-23] MEDS: MELATONIN 10 MG TABLET 5 MG PO (22:10)
[2025-04-24 09:26] VITALS: BP 136/74; PULSE 84; RESP 17; TEMP 36.3; O2SAT 91
[2025-04-24] MEDS: Potassium Chloride Oral Tablet 20 MEQ PO ×2 (09:29→16:47)
[2025-04-24] MEDS: Senna/Docusate Sodium 1 Tablet PO ×2 (09:29→22:17)
[2025-04-24] MEDS: Calcium (Elemental) 500 MG Tablet 1000 MG PO (11:07)
[2025-04-24] MEDS: hydrOXYzine PAM 25 MG Capsule PO (22:15)
[2025-04-24] MEDS: MELATONIN 10 MG TABLET 5 MG PO (22:16)
[2025-04-25 06:30] LABS: Hematocrit 35.1 % (40-54); Hemoglobin 12.1 g/dL (13.0-16.5); Immature Granulocytes Count 0.060 X10^3/uL (0.0-0.0); Mean Corp Hgb Conc 34.5 g/dL (32-36); Mean Corpuscular Volume 93.4 fL (80-94); Mean Platelet Vol. 9.5 fl (6.2-12.0); NRBC Flagged by Analyzer 0 % (0-5); Platelet Count 204 K/mm3 (150-450); RBC Distribution Width CV 12.8 % (11.6-14.6); RBC Distribution Width SD 43.5 fl (35.1-43.9); Red Blood Count 3.76 M/mm3 (4.6-6.2); White Blood Count 7.5 K/mm3 (4.4-11.0)
[2025-04-25 06:57] LABS: Anion Gap 10 (5-15); BUN 38 mg/dL (4-19); BUN/Creat Ratio 42.4 RATIO (10-20); Calcium,Total 9.3 mg/dL (7.6-11.0); Carbon Dioxide 24.9 mmol/L (21.0-32.0); Chloride 105 mmol/L (98-108); Estimated Creatinine Clearance 61.54 ml/min (50-250); Glucose 107 mg/dL (70-99); Potassium 4.5 mmol/L (3.3-5.1)
[2025-04-25 08:13] VITALS: BP 105/67; PULSE 94; RESP 16; TEMP 36.3; O2SAT 93
[2025-04-25] MEDS: Potassium Chloride Oral Tablet 20 MEQ PO ×2 (08:16→17:19)
[2025-04-25] MEDS: Senna/Docusate Sodium 1 Tablet PO ×2 (08:16→21:41)
[2025-04-25] MEDS: Calcium (Elemental) 500 MG Tablet 1000 MG PO (11:01)
[2025-04-25 17:23] VITALS: BP 127/78; PULSE 89
--- NOTE | 2025-04-25 17:29 | NURSING ---
pt questioning whether he should be taking vistaril BID PRN wanted this nurse to ask Dr Gould. Dr Gould notified, wants pt to follow up in his office after discharge for f/u appt as new pt and he will discuss other options. pt updated and agreeable.
[2025-04-25] MEDS: MELATONIN 10 MG TABLET 5 MG PO (21:39)
[2025-04-25] MEDS: hydrOXYzine PAM 25 MG Capsule PO (23:33)
[2025-04-26 08:43] VITALS: BP 114/57; PULSE 87; RESP 17; TEMP 36.3; O2SAT 90
[2025-04-26] MEDS: Potassium Chloride Oral Tablet 20 MEQ PO ×2 (08:49→17:32)
[2025-04-26] MEDS: Senna/Docusate Sodium 1 Tablet PO ×2 (08:50→21:59)
[2025-04-26] MEDS: Calcium (Elemental) 500 MG Tablet 1000 MG PO (11:10)
--- NOTE | 2025-04-26 16:39 | CASEMGMT ---
Social Work SW completed BIMS () and PHQ-2 () for MDS assessment. Sophy Perry [employer]
[2025-04-26 17:33] VITALS: BP 112/73; PULSE 95
[2025-04-26 19:56] VITALS: PULSE 98; RESP 16; O2SAT 98
[2025-04-26] MEDS: MELATONIN 10 MG TABLET 5 MG PO (21:59)
[2025-04-27 06:11] VITALS: PULSE 83; RESP 18; O2SAT 98
[2025-04-27 09:29] VITALS: BP 119/66; PULSE 92; RESP 17; TEMP 36.3; O2SAT 93
[2025-04-27] MEDS: Senna/Docusate Sodium 1 Tablet PO (09:33)
[2025-04-27] MEDS: Potassium Chloride Oral Tablet 20 MEQ PO (09:33)
[2025-04-27] MEDS: Calcium (Elemental) 500 MG Tablet 1000 MG PO (11:11)
== END 2025-04-27 12:50 | disposition home health service (06) | DRG 189 ==
PROVIDERS: Admitting Provider Family Medicine Geriatric Medicine; PCP Nurse Practitioner Primary Care; Visit Provider Family Medicine Geriatric Medicine
DX: J96.01 Acute respiratory failure with hypoxia (principal); I24.89 Other forms of acute ischemic heart disease; J98.11 Atelectasis; G20.A1 Parkinson's disease without dyskinesia, without mention of fluctuations; I12.9 Hypertensive chronic kidney disease with stage 1 through stage 4 chronic kidney disease, or unspecified chronic kidney disease; F32.9 Major depressive disorder, single episode, unspecified; E53.8 Deficiency of other specified B group vitamins; F41.9 Anxiety disorder, unspecified; E87.6 Hypokalemia; N18.2 Chronic kidney disease, stage 2 (mild); M40.204 Unspecified kyphosis, thoracic region; E78.5 Hyperlipidemia, unspecified; E55.9 Vitamin D deficiency, unspecified; M80.08XD Age-related osteoporosis with current pathological fracture, vertebra(e), subsequent encounter for fracture with routine healing; G47.00 Insomnia, unspecified; Z87.891 Personal history of nicotine dependence; R60.0 Localized edema; N40.0 Benign prostatic hyperplasia without lower urinary tract symptoms; Z79.899 Other long term (current) drug therapy; G89.29 Other chronic pain
CPT/HCPCS: 36415; 80048; 81001; 82306; 85025; 87086; 87088; 87811; 92507; 92523; 93005; 94640; 94762; 97110; 97116; 97129; 97130; 97162; 97166; 97530; 97535; 97802; A4216

== ENCOUNTER → 2025-04-14 | Outpatient (CLI) | payer MEDICARE, BC, SELFPAY ==
--- NOTE | 2025-04-14 07:00 | CT_ITS ---
PROCEDURE: BRAIN/HEAD WITHOUT CONTRAST 04/14/2025 REASON FOR EXAM: FALL TECHNIQUE: BRAIN/HEAD WITHOUT CONTRAST Coronal and Sagittal reconstruction series were provided. One or more dose reduction techniques were used (e.g., Automated exposure control, adjustment of the mA and/or kV according to patient size, use of iterative reconstruction technique. RADIATION DOSE SUMMARY: CTDlvol: 44.99 mGy DLP: 863.6 mGycm COMPARISON: Prior study dated March 23 2025. FINDINGS: Brain: Low density in the periventricular white matter suggests mild chronic small vessel ischemic changes. Calcification of the cavernous portions of the internal carotid arteries bilaterally. CSF Spaces: Mild generalized cerebral atrophy Sinuses/Mastoids: Clear at visualized levels Bones: Unremarkable CT/Brain/Head without Contrast IMPRESSION: CHRONIC CHANGES. NO ACUTE FINDINGS. Reading Location: [place] [id number]
--- OUTSIDE RECORDS SUMMARY | 2025-04-14 07:05 | XMS RPT_ITS | CCD ---
Author Organization [facility] Care Team Providers Care Watershed Engineer Name Role Phone YOLANDA GOODSON, ARACELI Ontiveros Primary Care Physician [phone] SUNDAY MANAGER PERIOPERATIVE-SENSITOMETRIST, KATHERINE S Primary Care Physicia n KATHERINE BRAND Primary Care Unavailable KATHERINE BRAND Attending Unavailable SUNDAY, KATHERINE Primary Care Unavailable KTAHERINE BRAND Attending Unavailable SUNDAY, KATHERINE Primary Care Unavailable KATHERINE BRAND Attending Unavailable INDRA MANAGER PERIOPERATIVE-SENSITOMETRIST, OSMEL Chavez Admitting Unavailable SUNDAY, KATHERINE Primary Care Unavailable LIDA SCHMIDT DO Attending Unavailable PATE DOBRODY Consulting Unavailable SUNDAY, KATHERINE Primary Care Unavailable EDUARDA APARICIO, DR BADILLO Attending Unavailable KILEY MANAGER PERIOPERATIVE-SENSITOMETRISTFORREST Admitting Unava ilable KATHERINE BRAND Consulting Unavailable SUNDAY, KATHERINE Primary Care Unavailable CURLY GOODSON, DR BENDER Attending Unavailab SIERRA Keyes DO Attending Unavailable SUNDAY, KATHERINE Primary Care Unavailable SUNDAY, KATHERINE Primary Care Unavailable KATHERINE BRAND Attending Unavailable SUNDAY MANAGER PERIOPERATIVE-SENSITOMETRIST, KATHERINE S Primary Care Unava ilable SUNDAY MANAGER PERIOPERATIVE-SENSITOMETRIST, KATHERINE S Attending Unava ilable SUNDAY MANAGER PERIOPERATIVE-SENSITOMETRIST, KATHERINE S Attending Unava ilable SUNDAY MANAGER PERIOPERATIVE-SENSITOMETRIST, KATHERINE S Primary Care Unava ilable SUNDAY MANAGER PERIOPERATIVE-SENSITOMETRIST, KATHERINE S Primary Care Unava ilable SUNDAY MANAGER PERIOPERATIVE-SENSITOMETRIST, KATHERINE S Attending Unava ilable SUNDAY MANAGER PERIOPERATIVE-SENSITOMETRIST, KATHERINE S Attending Unava ilable SUNDAY MANAGER PERIOPERATIVE-SENSITOMETRIST, KATHERINE S Primary Care Unava ilable SUNDAY MANAGER PERIOPERATIVE-SENSITOMETRIST, KATHERINE S Attending Unava ilable SUNDAY MANAGER PERIOPERATIVE-SENSITOMETRIST, KATHERINE S Primary Care Unava ilable SOFIA, SIERRA Attending Unavailable SUNDAY MANAGER PERIOPERATIVE-SENSITOMETRIST, KATHERINE S Primary Care Unava ilable SUNDAY MANAGER PERIOPERATIVE-SENSITOMETRIST, KATHERINE S Primary Care Unava ilable SHRUTHI-COOPER MANAGER PERIOPERATIVE-SENSITOMETRIST, OSMEL Chavez Admitting Unavailable TWILA GOODSON FACP, PAULINO Glaser Attending Unavail able SUNDAY MANAGER PERIOPERATIVE-SENSITOMETRIST, KATHERINE S Primary Care Unava ilable SHRUTHI-COOPER MANAGER PERIOPERATIVE-SENSITOMETRIST, OSMEL Chavez Admitting Unavailable PATE DO, BRODY Consulting Unavailable PLUNK DO, LIDA Attending Unavailable SUNDAY MANAGER PERIOPERATIVE-SENSITOMETRIST, KATHERINE S Primary Care Unava ilable SEFFENS MANAGER PERIOPERATIVE-SENSITOMETRIST, DANY Attending Unavai lable SUNDAY MANAGER PERIOPERATIVE-SENSITOMETRIST, KATHERINE S Attending Unava ilable SUNDAY MANAGER PERIOPERATIVE-SENSITOMETRIST, KATHERINE S Primary Care Unava ilable KING HAMZAH, AMBER Chavez Attending Unavailable SUNDAY MANAGER PERIOPERATIVE-SENSITOMETRIST, KATHERINE S Primary Care Unava ilable SUNDAY MANAGER PERIOPERATIVE-SENSITOMETRIST, KATHERINE S Primary Care Unava ilable SUNDAY MANAGER PERIOPERATIVE-SENSITOMETRIST, KATHERINE S Attending Unava ilable SUNDAY MANAGER PERIOPERATIVE-SENSITOMETRIST, KATHERINE S Attending Unava ilable SUNDAY MANAGER PERIOPERATIVE-SENSITOMETRIST, KATHERINE S Primary Care Unava ilable Sunday OPEN CLAIMS REPRESENTATIVE-C, Katherine Primary Care Provider Dr. Marco Camacho [...] Unavailable Koram, Katarina Annette Attending Unavailable Sunday OPEN CLAIMS REPRESENTATIVE, [facility] Care Unavailable White, Merry L Consulting Unavailable Amelie Lovingadee Attending Unavailabl e Sunday OPEN CLAIMS REPRESENTATIVE, [facility] Care Unavailable Freire, Zandra Consulting Unavailable White, Merry L Admitting Unavailable Sunday OPEN CLAIMS REPRESENTATIVE, [facility] Care Unavailable Koram, Katarina Annette Attending Unavailable White, Merry L Consulting Unavailable Koram, Katarina Annette Consulting Unavailable White, Merry L Attending Unavailable Luis Fernando, Sony Chi Admitting Unavailable Chetek OPEN CLAIMS REPRESENTATIVE, [facility] Care Unavailable Luis Fernando, Sony Chi Attending Unavailable Radha Freireag Attending Unavailable Sunday OPEN CLAIMS REPRESENTATIVE, [facility] Referring Unavailable [place] OPEN CLAIMS REPRESENTATIVE, [facility] Care Unavailable Amber Greenwood Attending Unavailable Sunday OPEN CLAIMS REPRESENTATIVE, [facility] Referring Unavailable [place] OPEN CLAIMS REPRESENTATIVE, [facility] Care Unavailable Amber Greenwood Attending Unavailable Sunday OPEN CLAIMS REPRESENTATIVE, [facility] Care Unavailable Lakshmi, Dolores Attending Unavailable Allergies Allergy Classification Reported Allergen(s) Allergy Type Date of Onset Reaction(s) Facility (20 sources) Atenolol; Translations: [atenolol] Drug Allergy [facility] (20 sources) buPROPion; Translations: [bupropion] Drug Allergy [facility] (20 sources) Erythromycin; Translations: [erythromycin] Drug Allergy [facility] (20 sources) Loratadine; Translations: [loratadine] Drug Allergy [facility] (20 sources) Niacin; Translations: [niacin] Drug Allergy [facility] (17 sources) cyclobenzaprine; Translations: [cyclobenzaprine ] Drug Allergy Drowsiness, function (observable entity) [facility] (17 sources) fexofenadine; Translations: [fexofenadine] Drug Allergy Nausea (finding) [facility] Medications Current Medications Medication Drug Class(es) Dates [...] qDay, # 30 tab(s), 1 Refill(s), [id number] 175.3, cm, 10/08/23 13:00:00 EST, Height, kg, 10/08/23 13:00:00 EST, Dosing Weight Start Date: 10/08/23 Status: Ordered busPIRone hydrochloride 30 m g oral tablet (18 sources) Start: 02-15-2025 End: 02-10-2026 busPIRone 30 mg oral tablet Dose : 30 mg = 1 tab(s), Oral, BID, # 180 tab(s), 3 Refill(s), Pharmacy: [facility], 167.5, cm, 02/10/25 14:35:00 [...] BID, # 60 tab(s), 1 Refill(s), [id number], 175.3, cm, 10/08/23 13:00:00 EST, Height, [...] BID, # 180 tab(s), 3 Refill(s), Pharmacy: [facility], 167.5, cm, 11/03/24 15:02:00 EST, Height, kg, 11/03/24 15:02:00 EST, Dosing Weight Start Date: 12/27/24 Status: Ordered Quantity: 180.0 Unit: tab(s) Repeat number: 4 Start: 01-06-2024 carvedilol 12. 5 mg oral tablet Dose : 12.5 mg = 1 tab(s), Oral, BID, # 180 tab(s), 3 Refill(s), Pharmacy: [facility], 175.3, cm, 11/11/23 14:58:00 [...] PM, # 135 tab(s), 3 Refill(s), Pharmacy: [facility], 175, cm, 04/24/23 13:34:00 [...] PM, # 135 tab(s), 3 Refill(s), Pharmacy: [facility], 175, cm, 06/04/22 14:06:00 [...] Daily, # 90 tab(s), 0 Refill(s), Pharmacy: [facility]/pharmacy #[id number], Seasonal allergies Allergic conjunctivitis, 177.8, cm, 02/07/23 [...] anxiety, # 40 tab(s), 3 Refill(s), Pharmacy: [facility], 167.5, cm, 02/10/25 14:35:00 EDT, Height, kg, 02/10/25 14:35:00 EDT, Dosing Weight Start Date: 02/15/25 Status: Ordered Quantity: 40.0 Unit: tab(s) Repeat number: 4 Start: 10-08-2023 Vistaril 25 mg oral capsule Dose : 25 mg = 1 cap(s), Oral, QID, PRN as needed for anxiety, # 40 cap(s), 0 Refill(s), [id number], 175.3, cm, 10/08/23 13:00:00 EST, Height, kg, 10/08/23 13:00:00 EST, Dosing Weight Start Date: 10/08/23 Status: Ordered lidocaine 0.05 mg/mg medicated patch (3 sources) Antiarrhythmic, Amide Local Anesthetic Start: 05-01-2024 End: 05-31-2024 Lidoderm 5% topical patch Apply 2 patch(es), Topical, qDay, remove patches after 12 hours, X 30 day(s), # 60 patch(es), 0 Refill(s), [id number], 167.6, cm, 04/26/24 13:56:00 EDT, Height, 84, kg, 04/26/24 13:56:00 EDT, Dosing Weight Start Date: 05/01/24 Stop Date: 05/31/24 Status: Ordered losartan potassium 100 mg oral tablet (20 sources) Angiotensin 2 Receptor Alejandro Start: 11-15-2024 End: 11-10-2025 losartan 100 mg oral tablet Dose : 100 mg = 1 tab(s), Oral, qDay, # 90 tab(s), 3 Refill(s), Pharmacy: [facility], 167.5, cm, 11/03/24 15:02:00 EST, Height, kg, 11/03/24 15:02:00 EST, Dosing Weight Start Date: 11/15/24 Stop Date: 11/10/25 Status: Ordered Quantity: 90.0 Unit: tab(s) Repeat number: 4 Start: 07-26-2024 take 4 tablets by [facility] once daily Losartan 25 mg tablet Active 100 mg PO DAILY July 26, 2024 9:46am Start: 11-11-2023 End: 11-05-2024 losartan 100 mg oral tablet Dose : 100 mg = 1 tab(s), Oral, qDay, # 90 tab(s), 3 Refill(s), Pharmacy: [facility], 175.3, cm, 10/21/23 15:04:00 EST, Height, kg, 10/21/23 15:04:00 EST, Dosing Weight Start Date: 11/11/23 Stop Date: 11/05/24 Status: Ordered Quantity: 90.0 Unit: tab(s) Repeat number: 4 Start: 09-25-2023 losartan 100 m g oral tablet Dose : 100 mg = 1 tab(s), Oral, qDay, # 30 tab(s), 0 Refill(s), Pharmacy: [facility], 170, cm, 09/25/23 14:04:00 [...] qDay, # 90 tab(s), 3 Refill(s), Pharmacy: [facility], 177.8, cm, 02/07/23 14:35:00 EDT, Height, kg, 02/07/23 14:35:00 EDT, Dosing Weight Start Date: 02/17/23 Stop Date: 02/12/24 Status: Ordered Start: 12-26-2021 End: 12-21-2022 losartan 50 mg oral tablet D ose : 50 mg = 1 tab(s), Oral, qDay, # 90 tab(s), 3 Refill(s), Pharmacy: [facility], 175.5, cm, 09/20/21 14:05:00 [...] Daily, # 90 tab(s), 3 Refill(s), Pharmacy: [facility], 175, cm, 06/04/22 14:06:00 EDT, Height, kg, 06/04/22 14:06:00 EDT, Dosing Weight Start Date: 06/04/22 Stop Date: 05/30/23 Status: Ordered Start: 06-04-2021 Paxil 40 mg or al tablet Dose : 40 mg = 1 tab(s), Oral, Daily, In absence of PCP, # 90 tab(s), 3 Refill(s), Pharmacy: [facility], 177.8, cm, 02/20/21 13:44:00 [...] BID, # 60 tab(s), 11 Refill(s), Pharmacy: [facility], 167.6, cm, 03/09/25 15:00:00 EDT, Height, kg, 03/09/25 15:00:00 EDT, Dosing Weight Start Date: 03/10/25 Status: Ordered Quantity: 60.0 Unit: tab(s) Repeat number: 12 Start: 05-01-2024 End: 05-31-2024 K-Tab 20 mEq oral tablet, ex tended release Dose : 60 mEq = 3 tab(s), Oral, qDay, Take with food- 2 tabs qam, 1 tab qpm, # 90 cap(s), 0 Refill(s), [id number], 167.6, cm, 04/26/24 13:56:00 EDT, Height, kg, 04/26/24 13:56:00 EDT, Dosing Weight Start Date: 05/01/24 Stop Date: 05/31/24 Status: Ordered predniSONE 20 mg oral tablet (1 source) Start: 02-27-2025 End: 03-02-2025 predniSONE 20 mg oral tablet Dose : 40 mg = 2 tab(s), Oral, qDayM, X 3 day(s), # 6 tab(s), 0 Refill(s), 03/02/25 8:00:00 AM EDT, Pharmacy: [facility], 167.6, cm, 02/22/25 22:34:00 [...] qDayPC, # 30 cap(s), 1 Refill(s), [id number], 177.8, cm, 06/26/20 16:09:00 EDT, Height, kg, 06/26/20 16:09:00 EDT, Dosing Weight Start Date: 07/03/20 Status: Ordered terazosin 2 mg oral capsule (7 sources) alpha-Adrenergic Alejandro Start: 09-09-2023 teraz osin 2 mg oral capsule Dose : 2 mg = 1 cap(s), Oral, BID, # 180 cap(s), 3 Refill(s), Pharmacy: [facility], 175, cm, 09/09/23 14:33:00 EST, Height, kg, 09/09/23 14:33:00 EST, Dosing Weight Start Date: 09/09/23 Status: Ordered Start: 03-17-2023 terazosin 2 mg oral capsule Dose : 2 mg = 1 cap(s), Oral, BID, filling in lieu of pcp, # 90 cap(s), 0 Refill(s), Pharmacy: [facility], 177.8, cm, 02/07/23 14:35:00 EDT, Height, kg, 02/07/23 14:35:00 EDT, Dosing Weight Start Date: 03/17/23 Status: Ordered Start: 02-03-2023 terazosin 2 mg oral capsule Dose : 2 mg = 1 cap(s), Oral, BID, filling in lieu of pcp, # 90 cap(s), 0 Refill(s), Pharmacy: [facility], 175, cm, 01/08/23 13:11:00 EDT, Height, kg, 01/08/23 13:11:00 EDT, Dosing Weight Start Date: 02/03/23 Status: Ordered Start: 08-08-2022 terazosin 2 mg oral capsule Dose : 2 mg = 1 cap(s), Oral, BID, # 90 cap(s), 3 Refill(s), Pharmacy: [facility], 175, cm, 06/04/22 14:06:00 EDT, Height, kg, 06/04/22 14:06:00 EDT, Dosing Weight Start Date: 08/08/22 Status: Ordered Start: 01-10-2022 terazosin 2 mg oral capsule Dose : 2 mg = 1 cap(s), Oral, qHS, # 90 cap(s), 3 Refill(s), Pharmacy: [facility], 175, cm, 01/10/22 13:17:00 [...] day(s), # 30 mL, 1 Refill(s), Pharmacy: [facility]/pharmacy #[id number], Allergic conjunctivitis, 177.8, cm, 02/07/23 14:35:00 [...] qWeek, # 12 cap(s), 3 Refill(s), Pharmacy: [facility], 167.5, cm, 06/03/24 14:36:00 EDT, Height, kg, 06/03/24 14:36:00 EDT, Dosing Weight Start Date: 06/07/24 Status: Ordered Quantity: 12.0 Unit: cap(s) Repeat number: 4 Start: 06-07-2024 Vitamin D3 125 0 mcg (50,000 intl units) oral capsule Dose : 1,250 mcg = 1 cap(s), Oral, qWeek, # 12 cap(s), 3 Refill(s), Pharmacy: [facility], 167.5, cm, 06/03/24 14:36:00 [...] qWeek, # 12 tab(s), 3 Refill(s), Pharmacy: [facility], 167.5, cm, 07/08/24 15:00:00 [...] pcp, # 3 tab(s), 0 Refill(s), Pharmacy: [facility], Anxiety, 167.5, cm, 11/03/24 15:02:00 [...] 1 Refill(s), 10/04/24 3:14:00 PM EST, Pharmacy: [facility], Anxiety, 167.5, cm, 08/05/24 14:30:00 [...] anxiety, # 30 tab(s), 1 Refill(s), Pharmacy: [facility], Anxiety, 175, cm, 09/09/23 14:33:00 EST, Height, 89.3, kg, 09/09/23 14:33:00 EST, Dosing Weight Start Date: 09/09/23 Stop Date: 11/08/23 Status: Ordered Start: 09-12-2022 End: 11-11-2022 LORazepam 1 mg oral tablet D ose : 1 mg = 1 tab(s), Oral, qDay, PRN for anxiety, # 30 tab(s), 1 Refill(s), Pharmacy: [facility], Anxiety, 175, cm, 06/04/22 14:06:00 EDT, Height, 90.2, kg, 06/04/22 14:06:00 EDT, Dosing Weight Start Date: 09/12/22 Stop Date: 11/11/22 Status: Ordered Start: 06-04-2021 End: 11-01-2021 LORazepam 1 mg oral tablet D ose : 1 mg = 1 tab(s), Oral, qDay, PRN for anxiety, # 30 tab(s), 4 Refill(s), Pharmacy: [facility], Anxiety, 177.8, cm, 02/20/21 13:44:00 [...] Range Facility Basic Metabolic Profile (BMP )on 04-11-2025 BUN/CRE 37.3 RATIO High 10-20 [facility] Comment on above: Performed By: #### L 500.2500, L100.0100 #### [facility] [address] [place], [address] Calcium [Mass/Vol] 10.0 mg/dL Normal 7.6-11.0 [facility] Comment on above: Performed By: #### L 500.2500, L100.0100 #### [facility] [address] [place], [address] Chloride [Moles/Vol] 103 mmol/L Normal 98-108 [facility] Comment on above: Performed By: #### L 500.2500, L100.0100 #### [facility] [address] [place], [address] CO2 [Moles/Vol] 28.3 mmol/L Normal 21.0-32.0 [facility] Comment on above: Performed By: #### L 500.2500, L100.0100 #### [facility] [address] [place], [address] Creatinine [Mass/Vol] 0.91 mg/dL Normal 0.70-1.20 [facility] Comment on above: Performed By: #### L 500.2500, L100.0100 #### [facility] [address] [place], [address] ECRCL 61.54 ml/min Normal 50-250 [facility] Comment on above: Performed By: #### L 500.2500, L100.0100 #### [facility] [address] [place], [address] GAP 9 Normal 5-15 [facility] Comment on above: Performed By: #### L 500.2500, L100.0100 #### [facility] [address] [place], [address] GFR/1.73 sq M.predicted among non-blacks MDRD (S/P/Bld) [Vol rate/Area] 85 mL/min/{1.73_m2} Normal >60 [facility] Comment on above: Result Comment: mL/m in/1.73m2 CKD-EPI Creatinine Equation (2020) Performed By: #### L 500.2500, L100.0100 #### [facility] [address] [place], [address] Glucose [Mass/Vol] 103 mg/dL High 70-99 [facility] Comment on above: Performed By: #### L 500.2500, L100.0100 #### [facility] [address] [place], [address] Potassium [Moles/Vol] 4.6 mmol/L Normal 3.3-5.1 [place] [facility] Comment on above: Performed By: #### L 500.2500, L100.0100 #### [facility] [address] [place], [address] Sodium [Moles/Vol] 140 mmol/L Normal 133-145 [facility] Comment on above: Performed By: #### L 500.2500, L100.0100 #### [facility] [address] [place], [address] Urea nitrogen [Mass/Vol] 34 mg/dL High 4-19 [facility] Comment on above: Performed By: #### L 500.2500, L100.0100 #### [facility] [address] [place], [address] CBC W/Diff, Automatedon 04-01 Absolute Lymph 1.29 X10 3/uL Normal 0.83-4.51 [facility] Comment on above: Performed By: #### L 500.2500, L100.0100 #### [facility] [address] [place], [address] Absolute Neut 3.9 X10 3/uL Normal 2.0-7.7 [facility] Comment on above: Performed By: #### L 500.2500, L100.0100 #### [facility] [address] [place], [address] Basophils/100 WBC (Bld) 0.6 % Normal 0-1 [facility] Comment on above: Performed By: #### L 500.2500, L100.0100 #### [facility] [address] [place], [address] Eosinophils/100 WBC (Bld) 4.8 % Normal 0-5 [facility] Comment on above: Performed By: #### L 500.2500, L100.0100 #### [facility] [address] [place], [address] Erythrocyte distribution width (RBC) [Ratio] 13.1 % Normal 11.6-14.6 [facility] Comment on above: Performed By: #### L 500.2500, L100.0100 #### [facility] [address] [place], [address] Hematocrit (Bld) [Volume fraction] 37.2 % Low 40-54 [facility] Comment on above: Performed By: #### L 500.2500, L100.0100 #### [facility] [address] [place], [address] Hemoglobin (Bld) [Mass/Vol] 12.3 g/dL Low 13.0-16.5 [facility] Comment on above: Performed By: #### L 500.2500, L100.0100 #### [facility] [address] [place], [address] IG% 0.800 Normal 0.0-0.9 [facility] Comment on above: Result Comment: IG% - Immature Granulocytes (promyelocytes, myelocytes and metamyelocytes) > 1% indicates that a LEFT SHIFT is Present. Performed By: #### L 500.2500, L100.0100 #### [facility] [address] [place], [address] Lymphocytes/100 WBC (Bld) 19.8 % Normal 19-41 [facility] Comment on above: Performed By: #### L 500.2500, L100.0100 #### [facility] [address] [place], [address] MCH (RBC) [Entitic mass] 31.8 pg Normal 27.0-32.0 [facility] Comment on above: Performed By: #### L 500.2500, L100.0100 #### [facility] [address] [place], [address] MCHC (RBC) [Mass/Vol] 33.1 g/dL Normal 32-36 [facility] Comment on above: Performed By: #### L 500.2500, L100.0100 #### [facility] [address] [place], [address] MCV (RBC) [Entitic vol] 96.1 fL High 80-94 [facility] Comment on above: Performed By: #### L 500.2500, L100.0100 #### [facility] [address] [place], [address] Monocytes/100 WBC (Bld) 14.4 % High 0-10 [facility] Comment on above: Performed By: #### L 500.2500, L100.0100 #### [facility] [address] [place], [address] Neutrophils/100 WBC (Bld) 59.6 % Normal 47-70 [facility] Comment on above: Performed By: #### L 500.2500, L100.0100 #### [facility] [address] [place], [address] Nucleated RBC (Bld) [#/Vol] 0 10*3/uL Normal 0-5 [facility] Comment on above: Performed By: #### L 500.2500, L100.0100 #### [facility] [address] [place], [address] Platelet mean volume (Bld) [Entitic vol] 9.4 fL Normal 6.2-12.0 [facility] Comment on above: Performed By: #### L 500.2500, L100.0100 #### [facility] [address] [place], [address] Platelets (Bld) [#/Vol] 278 10*3/uL Normal 150-450 [facility] Comment on above: Performed By: #### L 500.2500, L100.0100 #### [facility] [address] [place], [address] RBC (Bld) [#/Vol] 3.87 10*6/uL Low 4.6-6.2 [facility] Comment on above: Performed By: #### L 500.2500, L100.0100 #### [facility] [address] [place], [address] RDW SD 46.2 fl High 35.1-43.9 [facility] Comment on above: Performed By: #### L 500.2500, L100.0100 #### [facility] [address] [place], [address] WBC (Bld) [#/Vol] 6.5 10*3/uL Normal 4.4-11.0 [facility] Comment on above: Performed By: #### L 500.2500, L100.0100 #### [facility] [address] [place], [address] 12 Lead EKGon 04-09-2025 12 Lead EKG [facility] [address] [place] [address] 12 Lead EKG 04/09/25 0848 MR#: [id number] Acct: [id number] Name: NANCY SY Rep #: [id number] : 1945 80 From: Abraham Martins MD Attending Dr: Dr. Sony Gould MD Status: ADM IN Ordering Dr: Sony Gould MD Date: 04/09/25 Location: [facility] Sex: M C Admitted: 03/27/25 Test Reason : chest pressure Blood Pressure : */* mmHG Vent. Rate : 91 BPM Atrial Rate : 91 BPM P-R Int : 136 ms QRS Dur : 80 ms QT Int : 368 ms P-R-T Axes : 42 -15 -8 degrees QTcB Int : 452 ms Normal sinus rhythm Normal ECG When compared with ECG of 23-Mar-2025 17:34, Premature ventricular complexes are no longer Present Nonspecific T wave abnormality no longer evident in Lateral leads Confirmed by ABRAHAM MARTINS MD ([id number]), fan mail editor BEVERLEY ZAPATA ([id number]) on 04/11/2025 1:00:29 PM Referred By: Luis Fernando Confirmed By: ABRAHAM MARTINS MD 04/11/25 1300 Date Abraham Martins MD CC: LOIS Brand; Dr. Sony Gould MD Signed Normal [facility] Basic Metabolic Profile (BMP )on 04-04-2025 BUN/CRE 27.6 RATIO High 10-20 [facility] Comment on above: Performed By: #### L 500.2500, L100.0100 #### [facility] [address] [place], [address] Calcium [Mass/Vol] 9.8 mg/dL Normal 7.6-11.0 [facility] Comment on above: Performed By: #### L 500.2500, L100.0100 #### [facility] [address] [place], [address] Chloride [Moles/Vol] 106 mmol/L Normal 98-108 [facility] Comment on above: Performed By: #### L 500.2500, L100.0100 #### [facility] [address] [place], [address] CO2 [Moles/Vol] 26.0 mmol/L Normal 21.0-32.0 [facility] Comment on above: Performed By: #### L 500.2500, L100.0100 #### [facility] [address] [place], [address] Creatinine [Mass/Vol] 0.78 mg/dL Normal 0.70-1.20 [facility] Comment on above: Performed By: #### L 500.2500, L100.0100 #### [facility] [address] [place], [address] ECRCL 70.00 ml/min Normal 50-250 [facility] Comment on above: Performed By: #### L 500.2500, L100.0100 #### [facility] [address] [place], [address] GAP 11 Normal 5-15 [facility] Comment on above: Performed By: #### L 500.2500, L100.0100 #### [facility] [address] [place], [address] GFR/1.73 sq M.predicted among non-blacks MDRD (S/P/Bld) [Vol rate/Area] 91 mL/min/{1.73_m2} Normal >60 [facility] Comment on above: Result Comment: mL/m in/1.73m2 CKD-EPI Creatinine Equation (2020) Performed By: #### L 500.2500, L100.0100 #### [facility] [address] [place], [address] Glucose [Mass/Vol] 98 mg/dL Normal 70-99 [facility] Comment on above: Performed By: #### L 500.2500, L100.0100 #### [facility] [address] [place], [address] Potassium [Moles/Vol] 4.0 mmol/L Normal 3.3-5.1 [facility] Comment on above: Performed By: #### L 500.2500, L100.0100 #### [facility] [address] [place], [address] Sodium [Moles/Vol] 143 mmol/L Normal 133-145 [facility] Comment on above: Performed By: #### L 500.2500, L100.0100 #### [facility] [address] [place], [address] Urea nitrogen [Mass/Vol] 21 mg/dL High 4-19 [facility] Comment on above: Performed By: #### L 500.2500, L100.0100 #### [facility] [address] [place], [address] CBC W/Diff, Automatedon 08-0 4-2025 Absolute Lymph 1.40 X10 3/uL Normal 0.83-4.51 [facility] Comment on above: Performed By: #### L 500.2500, L100.0100 #### [facility] [address] [place], [address] Absolute Neut 4.9 X10 3/uL Normal 2.0-7.7 [facility] Comment on above: Performed By: #### L 500.2500, L100.0100 #### [facility] [address] [place], [address] Basophils/100 WBC (Bld) 0.4 % Normal 0-1 [facility] Comment on above: Performed By: #### L 500.2500, L100.0100 #### [facility] [address] [place], [address] Eosinophils/100 WBC (Bld) 4.2 % Normal 0-5 [facility] Comment on above: Performed By: #### L 500.2500, L100.0100 #### [facility] [address] [place], [address] Erythrocyte distribution width (RBC) [Ratio] 13.2 % Normal 11.6-14.6 [facility] Comment on above: Performed By: #### L 500.2500, L100.0100 #### [facility] [address] [place], [address] Hematocrit (Bld) [Volume fraction] 36.0 % Low 40-54 [facility] Comment on above: Performed By: #### L 500.2500, L100.0100 #### [facility] [address] [place], [address] Hemoglobin (Bld) [Mass/Vol] 12.1 g/dL Low 13.0-16.5 [facility] Comment on above: Performed By: #### L 500.2500, L100.0100 #### [facility] [address] [place], [address] IG% 0.500 Normal 0.0-0.9 [facility] Comment on above: Result Comment: IG% - Immature Granulocytes (promyelocytes, myelocytes and metamyelocytes) > 1% indicates that a LEFT SHIFT is Present. Performed By: #### L 500.2500, L100.0100 #### [facility] [address] [place], [address] Lymphocytes/100 WBC (Bld) 18.3 % Low 19-41 [facility] Comment on above: Performed By: #### L 500.2500, L100.0100 #### [facility] [address] [place], [address] MCH (RBC) [Entitic mass] 32.0 pg Normal 27.0-32.0 [facility] Comment on above: Performed By: #### L 500.2500, L100.0100 #### [facility] [address] [place], [address] MCHC (RBC) [Mass/Vol] 33.6 g/dL Normal 32-36 [facility] Comment on above: Performed By: #### L 500.2500, L100.0100 #### [facility] [address] [place], [address] MCV (RBC) [Entitic vol] 95.2 fL High 80-94 [facility] Comment on above: Performed By: #### L 500.2500, L100.0100 #### [facility] [address] [place], [address] Monocytes/100 WBC (Bld) 12.7 % High 0-10 [facility] Comment on above: Performed By: #### L 500.2500, L100.0100 #### [facility] [address] [place], [address] Neutrophils/100 WBC (Bld) 63.9 % Normal 47-70 [facility] Comment on above: Performed By: #### L 500.2500, L100.0100 #### [facility] [address] [place], [address] Nucleated RBC (Bld) [#/Vol] 0 10*3/uL Normal 0-5 [facility] Comment on above: Performed By: #### L 500.2500, L100.0100 #### [facility] [address] [place], [address] Platelet mean volume (Bld) [Entitic vol] 9.3 fL Normal 6.2-12.0 [facility] Comment on above: Performed By: #### L 500.2500, L100.0100 #### [facility] [address] [place], [address] Platelets (Bld) [#/Vol] 253 10*3/uL Normal 150-450 [facility] Comment on above: Performed By: #### L 500.2500, L100.0100 #### [facility] [address] [place], [address] RBC (Bld) [#/Vol] 3.78 10*6/uL Low 4.6-6.2 [facility] Comment on above: Performed By: #### L 500.2500, L100.0100 #### [facility] [address] [place], [address] RDW SD 45.9 fl High 35.1-43.9 [facility] Comment on above: Performed By: #### L 500.2500, L100.0100 #### [facility] [address] [place], [address] WBC (Bld) [#/Vol] 7.7 10*3/uL Normal 4.4-11.0 [facility] Comment on above: Performed By: #### L 500.2500, L100.0100 #### [facility] [address] [place], [address] Basic Metabolic Profile (BMP )on 04-01-2025 BUN Normal 4-19 [facility] Comment on above: Result Comment: Canc elled via OM: Order cancelled - Patient discharged Performed By: #### L 500.2500, L100.0100 #### [facility] [address] [place], [address] BUN/CRE Normal 10-20 [facility] Comment on above: Result Comment: Canc elled via OM: Order cancelled - Patient discharged Performed By: #### L 500.2500, L100.0100 #### [facility] [address] [place], [address] Calcium Normal 7.6-11.0 [facility] Comment on above: Result Comment: Canc elled via OM: Order cancelled - Patient discharged Performed By: #### L 500.2500, L100.0100 #### [facility] [address] [place], [address] CL Normal 98-108 [facility] Comment on above: Result Comment: Canc elled via OM: Order cancelled - Patient discharged Performed By: #### L 500.2500, L100.0100 #### [facility] [address] [place], [address] CO2 Normal 21.0-32.0 [facility] Comment on above: Result Comment: Canc elled via OM: Order cancelled - Patient discharged Performed By: #### L 500.2500, L100.0100 #### [facility] [address] [place], [address] CREAT,SERUM Normal 0.70-1.20 [facility] Comment on above: Result Comment: Canc elled via OM: Order cancelled - Patient discharged Performed By: #### L 500.2500, L100.0100 #### [facility] [address] [place], [address] eGFR Normal >60 [facility] Comment on above: Result Comment: Canc elled via OM: Order cancelled - Patient discharged Performed By: #### L 500.2500, L100.0100 #### [facility] [address] [place], [address] GAP Normal 5-15 [facility] Comment on above: Result Comment: Canc elled via OM: Order cancelled - Patient discharged Performed By: #### L 500.2500, L100.0100 #### [facility] [address] [place], [address] GLU Normal 70-99 [facility] Comment on above: Result Comment: Canc elled via OM: Order cancelled - Patient discharged Performed By: #### L 500.2500, L100.0100 #### [facility] [address] [place], [address] Potassium Normal 3.3-5.1 [facility] Comment on above: Result Comment: Canc elled via OM: Order cancelled - Patient discharged Performed By: #### L 500.2500, L100.0100 #### [facility] [address] [place], [address] Basic Metabolic Profile (BMP) Normal 133-145 [facility] Comment on above: Result Comment: Canc elled via OM: Order cancelled - Patient discharged Performed By: #### L 500.2500, L100.0100 #### [facility] [address] [place], [address] CBC W/Diff, Automatedon 08-0 -2024 Absolute Neut Normal 2.0-7.7 [facility] Comment on above: Result Comment: Canc elled via OM: Order cancelled - Patient discharged Performed By: #### L 500.2500, L100.0100 #### [facility] [address] [place], [address] HCT Normal 40-54 [facility] Comment on above: Result Comment: Canc elled via OM: Order cancelled - Patient discharged Performed By: #### L 500.2500, L100.0100 #### [facility] [address] [place], [address] HGB Normal 13.0-16.5 [facility] Comment on above: Result Comment: Canc elled via OM: Order cancelled - Patient discharged Performed By: #### L 500.2500, L100.0100 #### [facility] [address] [place], [address] MCH Normal 27.0-32.0 [facility] Comment on above: Result Comment: Canc elled via OM: Order cancelled - Patient discharged Performed By: #### L 500.2500, L100.0100 #### [facility] [address] [place], [address] MCHC Normal 32-36 [facility] Comment on above: Result Comment: Canc elled via OM: Order cancelled - Patient discharged Performed By: #### L 500.2500, L100.0100 #### [facility] [address] [place], [address] MCV Normal 80-94 [facility] Comment on above: Result Comment: Canc elled via OM: Order cancelled - Patient discharged Performed By: #### L 500.2500, L100.0100 #### [facility] [address] [place], [address] NEUT% Normal 47-70 [facility] Comment on above: Result Comment: Canc elled via OM: Order cancelled - Patient discharged Performed By: #### L 500.2500, L100.0100 #### [facility] [address] [place], [address] PLT Normal 150-450 [facility] Comment on above: Result Comment: Canc elled via OM: Order cancelled - Patient discharged Performed By: #### L 500.2500, L100.0100 #### [facility] [address] [place], [address] RBC Normal 4.6-6.2 [facility] Comment on above: Result Comment: Canc elled via OM: Order cancelled - Patient discharged Performed By: #### L 500.2500, L100.0100 #### [facility] [address] [place], [address] RDW CV Normal 11.6-14.6 [facility] Comment on above: Result Comment: Canc elled via OM: Order cancelled - Patient discharged Performed By: #### L 500.2500, L100.0100 #### [facility] [address] [place], [address] RDW SD Normal 35.1-43.9 [facility] Comment on above: Result Comment: Canc elled via OM: Order cancelled - Patient discharged Performed By: #### L 500.2500, L100.0100 #### [facility] [address] [place], [address] WBC Normal 4.4-11.0 [facility] Comment on above: Result Comment: Canc elled via OM: Order cancelled - Patient discharged Performed By: #### L 500.2500, L100.0100 #### [facility] [address] [place], [address] Urine Cultureon 04-01-2025 URC Below infection level. Mixed Gram Positive Organisms [place] Count 1000-10,000 MIXC Mixed contaminants. Submit a new specimen if indicated. Normal [facility] Comment on above: Performed By: #### M 100.2200, L400.0001 ####[facility] [address] [place], [address] Basic Metabolic Profile (BMP )on 03-31-2025 BUN/CRE 21.2 RATIO High 10-20 [facility] Comment on above: Performed By: #### L 500.2500 #### [facility] [address] [place], [address] Calcium [Mass/Vol] 9.2 mg/dL Normal 7.6-11.0 [facility] Comment on above: Performed By: #### L 500.2500 #### [facility] [address] [place], [address] Chloride [Moles/Vol] 103 mmol/L Normal 98-108 [facility] Comment on above: Performed By: #### L 500.2500 #### [facility] [address] [place], [address] CO2 [Moles/Vol] 28.1 mmol/L Normal 21.0-32.0 [facility] Comment on above: Performed By: #### L 500.2500 #### [facility] [address] [place], [address] Creatinine [Mass/Vol] 0.68 mg/dL Low 0.70-1.20 [facility] Comment on above: Performed By: #### L 500.2500 #### [facility] [address] [place], [address] ECRCL 70.00 ml/min Normal 50-250 [facility] Comment on above: Performed By: #### L 500.2500 #### [facility] [address] [place], [address] GAP 11 Normal 5-15 [facility] Comment on above: Performed By: #### L 500.2500 #### [facility] [address] [place], [address] GFR/1.73 sq M.predicted among non-blacks MDRD (S/P/Bld) [Vol rate/Area] 95 mL/min/{1.73_m2} Normal >60 [facility] Comment on above: Result Comment: mL/m in/1.73m2 CKD-EPI Creatinine Equation (2020) Performed By: #### L 500.2500 #### [facility] [address] [place], [address] Glucose [Mass/Vol] 100 mg/dL High 70-99 [facility] Comment on above: Performed By: #### L 500.2500 #### [facility] [address] [place], [address] Potassium [Moles/Vol] 3.6 mmol/L Normal 3.3-5.1 [facility] Comment on above: Performed By: #### L 500.2500 #### [facility] [address] [place], [address] Sodium [Moles/Vol] 143 mmol/L Normal 133-145 [facility] Comment on above: Performed By: #### L 500.2500 #### [facility] [address] [place], [address] Urea nitrogen [Mass/Vol] 14 mg/dL Normal - [facility] Comment on above: Performed By: #### L 500.2500 #### [facility] [address] [place], [address] BUN Normal - [facility] Comment on above: Result Comment: Canc elled via OM: Order cancelled - Patient discharged Performed By: #### L 100.0100, L500.2500 ####[facility] [address] [place], [address] BUN/CRE Normal -20 [facility] Comment on above: Result Comment: Canc elled via OM: Order cancelled - Patient discharged Performed By: #### L 100.0100, L500.2500 ####[facility] [address] [place], [address] Calcium Normal 7.6-11.0 [facility] Comment on above: Result Comment: Canc elled via OM: Order cancelled - Patient discharged Performed By: #### L 100.0100, L500.2500 ####[facility] [address] [place], [address] CL Normal 98-108 [facility] Comment on above: Result Comment: Canc elled via OM: Order cancelled - Patient discharged Performed By: #### L 100.0100, L500.2500 ####[facility] [address] [place], [address] CO2 Normal 21.0-32.0 [facility] Comment on above: Result Comment: Canc elled via OM: Order cancelled - Patient discharged Performed By: #### L 100.0100, L500.2500 ####[facility] [address] [place], [address] CREAT,SERUM Normal 0.70-1.20 [facility] Comment on above: Result Comment: Canc elled via OM: Order cancelled - Patient discharged Performed By: #### L 100.0100, L500.2500 ####[facility] [address] [place], [address] eGFR Normal >60 [facility] Comment on above: Result Comment: Canc elled via OM: Order cancelled - Patient discharged Performed By: #### L 100.0100, L500.2500 ####[facility] [address] [place], [address] GAP Normal 5-15 [facility] Comment on above: Result Comment: Canc elled via OM: Order cancelled - Patient discharged Performed By: #### L 100.0100, L500.2500 ####[facility] [address] [place], [address] GLU Normal 70-99 [facility] Comment on above: Result Comment: Canc elled via OM: Order cancelled - Patient discharged Performed By: #### L 100.0100, L500.2500 ####[facility] [address] [place], [address] Potassium Normal 3.3-5.1 [facility] Comment on above: Result Comment: Canc elled via OM: Order cancelled - Patient discharged Performed By: #### L 100.0100, L500.2500 ####[facility] [address] [place], [address] Basic Metabolic Profile (BMP) Normal 133-145 [facility] Comment on above: Result Comment: Canc elled via OM: Order cancelled - Patient discharged Performed By: #### L 100.0100, L500.2500 ####[facility] [address] [place], [address] CBC W/Diff, Automatedon 07-3 Absolute Neut Normal 2.0-7.7 [facility] Comment on above: Result Comment: Canc elled via OM: Order cancelled - Patient discharged Performed By: #### L 100.0100, L500.2500 ####[facility] [address] [place], [address] HCT Normal 40-54 [facility] Comment on above: Result Comment: Canc elled via OM: Order cancelled - Patient discharged Performed By: #### L 100.0100, L500.2500 ####[facility] [address] [place], [address] HGB Normal 13.0-16.5 [facility] Comment on above: Result Comment: Canc elled via OM: Order cancelled - Patient discharged Performed By: #### L 100.0100, L500.2500 ####[facility] [address] [place], [address] MCH Normal 27.0-32.0 [facility] Comment on above: Result Comment: Canc elled via OM: Order cancelled - Patient discharged Performed By: #### L 100.0100, L500.2500 ####[facility] [address] [place], [address] MCHC Normal 32-36 [facility] Comment on above: Result Comment: Canc elled via OM: Order cancelled - Patient discharged Performed By: #### L 100.0100, L500.2500 ####[facility] [address] [place], [address] MCV Normal 80-94 [facility] Comment on above: Result Comment: Canc elled via OM: Order cancelled - Patient discharged Performed By: #### L 100.0100, L500.2500 ####[facility] [address] [place], [address] NEUT% Normal 47-70 [facility] Comment on above: Result Comment: Canc elled via OM: Order cancelled - Patient discharged Performed By: #### L 100.0100, L500.2500 ####[facility] [address] [place], [address] PLT Normal 150-450 [facility] Comment on above: Result Comment: Canc elled via OM: Order cancelled - Patient discharged Performed By: #### L 100.0100, L500.2500 ####[facility] [address] [place], [address] RBC Normal 4.6-6.2 [facility] Comment on above: Result Comment: Canc elled via OM: Order cancelled - Patient discharged Performed By: #### L 100.0100, L500.2500 ####[facility] [address] [place], [address] RDW CV Normal 11.6-14.6 [facility] Comment on above: Result Comment: Canc elled via OM: Order cancelled - Patient discharged Performed By: #### L 100.0100, L500.2500 ####[facility] [address] [place], [address] RDW SD Normal 35.1-43.9 [facility] Comment on above: Result Comment: Canc elled via OM: Order cancelled - Patient discharged Performed By: #### L 100.0100, L500.2500 ####[facility] [address] [place], [address] WBC Normal 4.4-11.0 [facility] Comment on above: Result Comment: Canc elled via OM: Order cancelled - Patient discharged Performed By: #### L 100.0100, L500.2500 ####[facility] [address] [place], [address] Basic Metabolic Profile (BMP )on 03-30-2025 BUN/CRE 26.9 RATIO High 10-20 [facility] Comment on above: Performed By: #### L 500.2500 ####[facility] [address] [place], [address] Calcium [Mass/Vol] 9.3 mg/dL Normal 7.6-11.0 [facility] Comment on above: Performed By: #### L 500.2500 ####[facility] [address] [place], [address] Chloride [Moles/Vol] 101 mmol/L Normal 98-108 [facility] Comment on above: Performed By: #### L 500.2500 ####[facility] [address] [place], [address] CO2 [Moles/Vol] 30.9 mmol/L Normal 21.0-32.0 [facility] Comment on above: Performed By: #### L 500.2500 ####[facility] [address] [place], [address] Creatinine [Mass/Vol] 0.68 mg/dL Low 0.70-1.20 [facility] Comment on above: Performed By: #### L 500.2500 ####[facility] [address] [place], [address] ECRCL 70.00 ml/min Normal 50-250 [facility] Comment on above: Performed By: #### L 500.2500 ####[facility] [address] [place], [address] GAP 10 Normal 5-15 [facility] Comment on above: Performed By: #### L 500.2500 ####[facility] [address] [place], [address] GFR/1.73 sq M.predicted among non-blacks MDRD (S/P/Bld) [Vol rate/Area] 94 mL/min/{1.73_m2} Normal >60 [facility] Comment on above: Result Comment: mL/m in/1.73m2 CKD-EPI Creatinine Equation (2020) Performed By: #### L 500.2500 ####[facility] [address] [place], [address] Glucose [Mass/Vol] 101 mg/dL High 70-99 [facility] Comment on above: Performed By: #### L 500.2500 ####[facility] [address] [place], [address] Potassium [Moles/Vol] 3.7 mmol/L Normal 3.3-5.1 [facility] Comment on above: Result Comment: Hemo lysis present, Results??could be affected. ?? Performed By: #### L 500.2500 ####[facility] [address] [place], [address] Sodium [Moles/Vol] 142 mmol/L Normal 133-145 [facility] Comment on above: Performed By: #### L 500.2500 ####[facility] [address] [place], [address] Urea nitrogen [Mass/Vol] 18 mg/dL Normal 4-19 [facility] Comment on above: Performed By: #### L 500.2500 ####[facility] [address] [place], [address] BUN Normal 4-19 [facility] Comment on above: Result Comment: Canc elled via OM: Order cancelled - Patient discharged Performed By: #### L 100.0100, L500.2500 ####[facility] [address] [place], [address] BUN/CRE Normal 10-20 [facility] Comment on above: Result Comment: Canc elled via OM: Order cancelled - Patient discharged Performed By: #### L 100.0100, L500.2500 ####[facility] [address] [place], [address] Calcium Normal 7.6-11.0 [facility] Comment on above: Result Comment: Canc elled via OM: Order cancelled - Patient discharged Performed By: #### L 100.0100, L500.2500 ####[facility] [address] [place], [address] CL Normal 98-108 [facility] Comment on above: Result Comment: Canc elled via OM: Order cancelled - Patient discharged Performed By: #### L 100.0100, L500.2500 ####[facility] [address] [place], [address] CO2 Normal 21.0-32.0 [facility] Comment on above: Result Comment: Canc elled via OM: Order cancelled - Patient discharged Performed By: #### L 100.0100, L500.2500 ####[facility] [address] [place], [address] CREAT,SERUM Normal 0.70-1.20 [facility] Comment on above: Result Comment: Canc elled via OM: Order cancelled - Patient discharged Performed By: #### L 100.0100, L500.2500 ####[facility] [address] [place], [address] eGFR Normal >60 [facility] Comment on above: Result Comment: Canc elled via OM: Order cancelled - Patient discharged Performed By: #### L 100.0100, L500.2500 ####[facility] [address] [place], [address] GAP Normal 5-15 [facility] Comment on above: Result Comment: Canc elled via OM: Order cancelled - Patient discharged Performed By: #### L 100.0100, L500.2500 ####[facility] [address] [place], [address] GLU Normal 70-99 [facility] Comment on above: Result Comment: Canc elled via OM: Order cancelled - Patient discharged Performed By: #### L 100.0100, L500.2500 ####[facility] [address] [place], [address] Potassium Normal 3.3-5.1 [facility] Comment on above: Result Comment: Canc elled via OM: Order cancelled - Patient discharged Performed By: #### L 100.0100, L500.2500 ####[facility] [address] [place], [address] Basic Metabolic Profile (BMP) Normal 133-145 [facility] Comment on above: Result Comment: Canc elled via OM: Order cancelled - Patient discharged Performed By: #### L 100.0100, L500.2500 ####[facility] [address] [place], [address] CBC W/Diff, Automatedon 07-3 0-2024 Absolute Neut Normal 2.0-7.7 [facility] Comment on above: Result Comment: Canc elled via OM: Order cancelled - Patient discharged Performed By: #### L 100.0100, L500.2500 ####[facility] [address] [place], [address] HCT Normal 40-54 [facility] Comment on above: Result Comment: Canc elled via OM: Order cancelled - Patient discharged Performed By: #### L 100.0100, L500.2500 ####[facility] [address] [place], [address] HGB Normal 13.0-16.5 [facility] Comment on above: Result Comment: Canc elled via OM: Order cancelled - Patient discharged Performed By: #### L 100.0100, L500.2500 ####[facility] [address] [place], [address] MCH Normal 27.0-32.0 [facility] Comment on above: Result Comment: Canc elled via OM: Order cancelled - Patient discharged Performed By: #### L 100.0100, L500.2500 ####[facility] [address] [place], [address] MCHC Normal 32-36 [facility] Comment on above: Result Comment: Canc elled via OM: Order cancelled - Patient discharged Performed By: #### L 100.0100, L500.2500 ####[facility] [address] [place], [address] MCV Normal 80-94 [facility] Comment on above: Result Comment: Canc elled via OM: Order cancelled - Patient discharged Performed By: #### L 100.0100, L500.2500 ####[facility] [address] [place], [address] NEUT% Normal 47-70 [facility] Comment on above: Result Comment: Canc elled via OM: Order cancelled - Patient discharged Performed By: #### L 100.0100, L500.2500 ####[facility] [address] [place], [address] PLT Normal 150-450 [facility] Comment on above: Result Comment: Canc elled via OM: Order cancelled - Patient discharged Performed By: #### L 100.0100, L500.2500 ####[facility] [address] [place], [address] RBC Normal 4.6-6.2 [facility] Comment on above: Result Comment: Canc elled via OM: Order cancelled - Patient discharged Performed By: #### L 100.0100, L500.2500 ####[facility] [address] [place], [address] RDW CV Normal 11.6-14.6 [facility] Comment on above: Result Comment: Canc elled via OM: Order cancelled - Patient discharged Performed By: #### L 100.0100, L500.2500 ####[facility] [address] [place], [address] RDW SD Normal 35.1-43.9 [facility] Comment on above: Result Comment: Canc elled via OM: Order cancelled - Patient discharged Performed By: #### L 100.0100, L500.2500 ####[facility] [address] [place], [address] WBC Normal 4.4-11.0 [facility] Comment on above: Result Comment: Canc elled via OM: Order cancelled - Patient discharged Performed By: #### L 100.0100, L500.2500 ####[facility] [address] [place], [address] Urinalysis, Completeon 03-30 EPI,SQUAMOUS 0-5 SEEN Normal 0-5 [facility] Comment on above: Order Comment: CLEAN CATCH Performed By: #### M 100.2200, L400.0001 #### [facility] [address] [place], [address] WBC 0-5 SEEN Normal 0-5 [facility] Comment on above: Order Comment: CLEAN CATCH Performed By: #### M 100.2200, L400.0001 #### [facility] [address] [place], [address] BACTERIA 0 SEEN Normal None Seen [facility] Comment on above: Order Comment: CLEAN CATCH Performed By: #### M 100.2200, L400.0001 #### [facility] [address] [place], [address] Mucus Ql (Urine sed) 0 SEEN Normal [facility] Comment on above: Order Comment: CLEAN CATCH Performed By: #### M 100.2200, L400.0001 #### [facility] [address] [place], [address] RBC 0 SEEN Normal 0-5 [facility] Comment on above: Order Comment: CLEAN CATCH Performed By: #### M 100.2200, L400.0001 #### [facility] [address] [place], [address] Basic Metabolic Profile (BMP )on 03-29-2025 BUN/CRE 23.5 RATIO High 10-20 [facility] Comment on above: Performed By: #### L 500.2500, L100.0100 #### [facility] [address] [place], [address] Calcium [Mass/Vol] 9.4 mg/dL Normal 7.6-11.0 [facility] Comment on above: Performed By: #### L 500.2500, L100.0100 #### [facility] [address] [place], [address] Chloride [Moles/Vol] 102 mmol/L Normal 98-108 [facility] Comment on above: Performed By: #### L 500.2500, L100.0100 #### [facility] [address] [place], [address] CO2 [Moles/Vol] 31.5 mmol/L Normal 21.0-32.0 [facility] Comment on above: Performed By: #### L 500.2500, L100.0100 #### [facility] [address] [place], [address] Creatinine [Mass/Vol] 0.68 mg/dL Low 0.70-1.20 [facility] Comment on above: Performed By: #### L 500.2500, L100.0100 #### [facility] [address] [place], [address] ECRCL 70.00 ml/min Normal 50-250 [facility] Comment on above: Performed By: #### L 500.2500, L100.0100 #### [facility] [address] [place], [address] GAP 10 Normal 5-15 [facility] Comment on above: Performed By: #### L 500.2500, L100.0100 #### [facility] [address] [place], [address] GFR/1.73 sq M.predicted among non-blacks MDRD (S/P/Bld) [Vol rate/Area] 95 mL/min/{1.73_m2} Normal >60 [facility] Comment on above: Result Comment: mL/m in/1.73m2 CKD-EPI Creatinine Equation (2020) Performed By: #### L 500.2500, L100.0100 #### [facility] [address] [place], [address] Glucose [Mass/Vol] 103 mg/dL High 70-99 [facility] Comment on above: Performed By: #### L 500.2500, L100.0100 #### [facility] [address] [place], [address] Potassium [Moles/Vol] 3.6 mmol/L Normal 3.3-5.1 [facility] Comment on above: Performed By: #### L 500.2500, L100.0100 #### [facility] [address] [place], [address] Sodium [Moles/Vol] 144 mmol/L Normal 133-145 [facility] Comment on above: Performed By: #### L 500.2500, L100.0100 #### [facility] [address] [place], [address] Urea nitrogen [Mass/Vol] 16 mg/dL Normal 4-19 [facility] Comment on above: Performed By: #### L 500.2500, L100.0100 #### [facility] [address] [place], [address] BUN Normal 4-19 [facility] Comment on above: Result Comment: Canc elled via OM: Order cancelled - Patient discharged Performed By: #### L 500.2500, L100.0100 #### [facility] [address] [place], [address] BUN/CRE Normal 10-20 [facility] Comment on above: Result Comment: Canc elled via OM: Order cancelled - Patient discharged Performed By: #### L 500.2500, L100.0100 #### [facility] [address] [place], [address] Calcium Normal 7.6-11.0 [facility] Comment on above: Result Comment: Canc elled via OM: Order cancelled - Patient discharged Performed By: #### L 500.2500, L100.0100 #### [facility] [address] [place], [address] CL Normal 98-108 [facility] Comment on above: Result Comment: Canc elled via OM: Order cancelled - Patient discharged Performed By: #### L 500.2500, L100.0100 #### [facility] [address] [place], [address] CO2 Normal 21.0-32.0 [facility] Comment on above: Result Comment: Canc elled via OM: Order cancelled - Patient discharged Performed By: #### L 500.2500, L100.0100 #### [facility] [address] [place], [address] CREAT,SERUM Normal 0.70-1.20 [facility] Comment on above: Result Comment: Canc elled via OM: Order cancelled - Patient discharged Performed By: #### L 500.2500, L100.0100 #### [facility] [address] [place], [address] eGFR Normal >60 [facility] Comment on above: Result Comment: Canc elled via OM: Order cancelled - Patient discharged Performed By: #### L 500.2500, L100.0100 #### [facility] [address] [place], [address] GAP Normal 5-15 [facility] Comment on above: Result Comment: Canc elled via OM: Order cancelled - Patient discharged Performed By: #### L 500.2500, L100.0100 #### [facility] [address] [place], [address] GLU Normal 70-99 [facility] Comment on above: Result Comment: Canc elled via OM: Order cancelled - Patient discharged Performed By: #### L 500.2500, L100.0100 #### [facility] [address] [place], [address] Potassium Normal 3.3-5.1 [facility] Comment on above: Result Comment: Canc elled via OM: Order cancelled - Patient discharged Performed By: #### L 500.2500, L100.0100 #### [facility] [address] [place], [address] Basic Metabolic Profile (BMP) Normal 133-145 [facility] Comment on above: Result Comment: Canc elled via OM: Order cancelled - Patient discharged Performed By: #### L 500.2500, L100.0100 #### [facility] [address] [place], [address] CBC W/Diff, Automatedon 07-2 Absolute Neut Normal 2.0-7.7 [facility] Comment on above: Result Comment: Canc elled via OM: Order cancelled - Patient discharged Performed By: #### L 500.2500, L100.0100 #### [facility] [address] [place], [address] HCT Normal 40-54 [facility] Comment on above: Result Comment: Canc elled via OM: Order cancelled - Patient discharged Performed By: #### L 500.2500, L100.0100 #### [facility] [address] [place], [address] HGB Normal 13.0-16.5 [facility] Comment on above: Result Comment: Canc elled via OM: Order cancelled - Patient discharged Performed By: #### L 500.2500, L100.0100 #### [facility] [address] [place], [address] MCH Normal 27.0-32.0 [facility] Comment on above: Result Comment: Canc elled via OM: Order cancelled - Patient discharged Performed By: #### L 500.2500, L100.0100 #### [facility] [address] [place], [address] MCHC Normal 32-36 [facility] Comment on above: Result Comment: Canc elled via OM: Order cancelled - Patient discharged Performed By: #### L 500.2500, L100.0100 #### [facility] [address] [place], [address] MCV Normal 80-94 [facility] Comment on above: Result Comment: Canc elled via OM: Order cancelled - Patient discharged Performed By: #### L 500.2500, L100.0100 #### [facility] [address] [place], [address] NEUT% Normal 47-70 [facility] Comment on above: Result Comment: Canc elled via OM: Order cancelled - Patient discharged Performed By: #### L 500.2500, L100.0100 #### [facility] [address] [place], [address] PLT Normal 150-450 [facility] Comment on above: Result Comment: Canc elled via OM: Order cancelled - Patient discharged Performed By: #### L 500.2500, L100.0100 #### [facility] [address] [place], [address] RBC Normal 4.6-6.2 [facility] Comment on above: Result Comment: Canc elled via OM: Order cancelled - Patient discharged Performed By: #### L 500.2500, L100.0100 #### [facility] [address] [place], [address] RDW CV Normal 11.6-14.6 [facility] Comment on above: Result Comment: Canc elled via OM: Order cancelled - Patient discharged Performed By: #### L 500.2500, L100.0100 #### [facility] [address] [place], [address] RDW SD Normal 35.1-43.9 [facility] Comment on above: Result Comment: Canc elled via OM: Order cancelled - Patient discharged Performed By: #### L 500.2500, L100.0100 #### [facility] [address] [place], [address] WBC Normal 4.4-11.0 [facility] Comment on above: Result Comment: Canc elled via OM: Order cancelled - Patient discharged Performed By: #### L 500.2500, L100.0100 #### [facility] [address] [place], [address] Basic Metabolic Profile (BMP )on 03-28-2025 BUN/CRE 24.8 RATIO High 10-20 [facility] Comment on above: Performed By: #### L 500.2500, L100.0100 #### [facility] [address] [place], [address] Calcium [Mass/Vol] 8.8 mg/dL Normal 7.6-11.0 [facility] Comment on above: Performed By: #### L 500.2500, L100.0100 #### [facility] [address] [place], [address] Chloride [Moles/Vol] 103 mmol/L Normal 98-108 [facility] Comment on above: Performed By: #### L 500.2500, L100.0100 #### [facility] [address] [place], [address] CO2 [Moles/Vol] 31.7 mmol/L Normal 21.0-32.0 [facility] Comment on above: Performed By: #### L 500.2500, L100.0100 #### [facility] [address] [place], [address] Creatinine [Mass/Vol] 0.68 mg/dL Low 0.70-1.20 [facility] Comment on above: Performed By: #### L 500.2500, L100.0100 #### [facility] [address] [place], [address] ECRCL 70.00 ml/min Normal 50-250 [facility] Comment on above: Performed By: #### L 500.2500, L100.0100 #### [facility] [address] [place], [address] GAP 9 Normal 5-15 [facility] Comment on above: Performed By: #### L 500.2500, L100.0100 #### [facility] [address] [place], [address] GFR/1.73 sq M.predicted among non-blacks MDRD (S/P/Bld) [Vol rate/Area] 95 mL/min/{1.73_m2} Normal >60 [facility] Comment on above: Result Comment: mL/m in/1.73m2 CKD-EPI Creatinine Equation (2020) Performed By: #### L 500.2500, L100.0100 #### [facility] [address] [place], [address] Glucose [Mass/Vol] 103 mg/dL High 70-99 [facility] Comment on above: Performed By: #### L 500.2500, L100.0100 #### [facility] [address] [place], [address] Potassium [Moles/Vol] 3.2 mmol/L Low 3.3-5.1 [facility] Comment on above: Performed By: #### L 500.2500, L100.0100 #### [facility] [address] [place], [address] Sodium [Moles/Vol] 144 mmol/L Normal 133-145 [facility] Comment on above: Performed By: #### L 500.2500, L100.0100 #### [facility] [address] [place], [address] Urea nitrogen [Mass/Vol] 17 mg/dL Normal 4-19 [facility] Comment on above: Performed By: #### L 500.2500, L100.0100 #### [facility] [address] [place], [address] BUN Normal 4-19 [facility] Comment on above: Result Comment: Canc elled via OM: Order cancelled - Patient discharged Performed By: #### L 500.2500, L100.0100 #### [facility] [address] [place], [address] BUN/CRE Normal 10-20 [facility] Comment on above: Result Comment: Canc elled via OM: Order cancelled - Patient discharged Performed By: #### L 500.2500, L100.0100 #### [facility] [address] [place], [address] Calcium Normal 7.6-11.0 [facility] Comment on above: Result Comment: Canc elled via OM: Order cancelled - Patient discharged Performed By: #### L 500.2500, L100.0100 #### [facility] [address] [place], [address] CL Normal 98-108 [facility] Comment on above: Result Comment: Canc elled via OM: Order cancelled - Patient discharged Performed By: #### L 500.2500, L100.0100 #### [facility] [address] [place], [address] CO2 Normal 21.0-32.0 [facility] Comment on above: Result Comment: Canc elled via OM: Order cancelled - Patient discharged Performed By: #### L 500.2500, L100.0100 #### [facility] [address] [place], [address] CREAT,SERUM Normal 0.70-1.20 [facility] Comment on above: Result Comment: Canc elled via OM: Order cancelled - Patient discharged Performed By: #### L 500.2500, L100.0100 #### [facility] [address] [place], [address] eGFR Normal >60 [facility] Comment on above: Result Comment: Canc elled via OM: Order cancelled - Patient discharged Performed By: #### L 500.2500, L100.0100 #### [facility] [address] [place], [address] GAP Normal 5-15 [facility] Comment on above: Result Comment: Canc elled via OM: Order cancelled - Patient discharged Performed By: #### L 500.2500, L100.0100 #### [facility] [address] [place], [address] GLU Normal 70-99 [facility] Comment on above: Result Comment: Canc elled via OM: Order cancelled - Patient discharged Performed By: #### L 500.2500, L100.0100 #### [facility] [address] [place], [address] Potassium Normal 3.3-5.1 [facility] Comment on above: Result Comment: Canc elled via OM: Order cancelled - Patient discharged Performed By: #### L 500.2500, L100.0100 #### [facility] [address] [place], [address] Basic Metabolic Profile (BMP) Normal 133-145 [facility] Comment on above: Result Comment: Canc elled via OM: Order cancelled - Patient discharged Performed By: #### L 500.2500, L100.0100 #### [facility] [address] [place], [address] CBC W/Diff, Automatedon 07-2 Absolute Neut Normal 2.0-7.7 [facility] Comment on above: Result Comment: Canc elled via OM: Order cancelled - Patient discharged Performed By: #### L 500.2500, L100.0100 #### [facility] [address] [place], [address] HCT Normal 40-54 [facility] Comment on above: Result Comment: Canc elled via OM: Order cancelled - Patient discharged Performed By: #### L 500.2500, L100.0100 #### [facility] [address] [place], [address] HGB Normal 13.0-16.5 [facility] Comment on above: Result Comment: Canc elled via OM: Order cancelled - Patient discharged Performed By: #### L 500.2500, L100.0100 #### [facility] [address] [place], [address] MCH Normal 27.0-32.0 [facility] Comment on above: Result Comment: Canc elled via OM: Order cancelled - Patient discharged Performed By: #### L 500.2500, L100.0100 #### [facility] [address] [place], [address] MCHC Normal 32-36 [facility] Comment on above: Result Comment: Canc elled via OM: Order cancelled - Patient discharged Performed By: #### L 500.2500, L100.0100 #### [facility] [address] [place], [address] MCV Normal 80-94 [facility] Comment on above: Result Comment: Canc elled via OM: Order cancelled - Patient discharged Performed By: #### L 500.2500, L100.0100 #### [facility] [address] [place], [address] NEUT% Normal 47-70 [facility] Comment on above: Result Comment: Canc elled via OM: Order cancelled - Patient discharged Performed By: #### L 500.2500, L100.0100 #### [facility] [address] [place], [address] PLT Normal 150-450 [facility] Comment on above: Result Comment: Canc elled via OM: Order cancelled - Patient discharged Performed By: #### L 500.2500, L100.0100 #### [facility] [address] [place], [address] RBC Normal 4.6-6.2 [facility] Comment on above: Result Comment: Canc elled via OM: Order cancelled - Patient discharged Performed By: #### L 500.2500, L100.0100 #### [facility] [address] [place], [address] RDW CV Normal 11.6-14.6 [facility] Comment on above: Result Comment: Canc elled via OM: Order cancelled - Patient discharged Performed By: #### L 500.2500, L100.0100 #### [facility] [address] [place], [address] RDW SD Normal 35.1-43.9 [facility] Comment on above: Result Comment: Canc elled via OM: Order cancelled - Patient discharged Performed By: #### L 500.2500, L100.0100 #### [facility] [address] [place], [address] WBC Normal 4.4-11.0 [facility] Comment on above: Result Comment: Canc elled via OM: Order cancelled - Patient discharged Performed By: #### L 500.2500, L100.0100 #### [facility] [address] [place], [address] Absolute Lymph 1.08 X10 3/uL Normal 0.83-4.51 [facility] Comment on above: Performed By: #### L 500.2500, L100.0100 #### [facility] [address] [place], [address] Absolute Neut 4.0 X10 3/uL Normal 2.0-7.7 [facility] Comment on above: Performed By: #### L 500.2500, L100.0100 #### [facility] [address] [place], [address] Basophils/100 WBC (Bld) 0.3 % Normal 0-1 [facility] Comment on above: Performed By: #### L 500.2500, L100.0100 #### [facility] [address] [place], [address] Eosinophils/100 WBC (Bld) 6.6 % High 0-5 [facility] Comment on above: Performed By: #### L 500.2500, L100.0100 #### [facility] [address] [place], [address] Erythrocyte distribution width (RBC) [Ratio] 13.4 % Normal 11.6-14.6 [facility] Comment on above: Performed By: #### L 500.2500, L100.0100 #### [facility] [address] [place], [address] Hematocrit (Bld) [Volume fraction] 33.6 % Low 40-54 [facility] Comment on above: Performed By: #### L 500.2500, L100.0100 #### [facility] [address] [place], [address] Hemoglobin (Bld) [Mass/Vol] 11.1 g/dL Low 13.0-16.5 [facility] Comment on above: Performed By: #### L 500.2500, L100.0100 #### [facility] [address] [place], [address] IG% 0.300 Normal 0.0-0.9 [facility] Comment on above: Result Comment: IG% - Immature Granulocytes (promyelocytes, myelocytes and metamyelocytes) > 1% indicates that a LEFT SHIFT is Present. Performed By: #### L 500.2500, L100.0100 #### [facility] [address] [place], [address] Lymphocytes/100 WBC (Bld) 16.9 % Low 19-41 [facility] Comment on above: Performed By: #### L 500.2500, L100.0100 #### [facility] [address] [place], [address] MCH (RBC) [Entitic mass] 31.7 pg Normal 27.0-32.0 [facility] Comment on above: Performed By: #### L 500.2500, L100.0100 #### [facility] [address] [place], [address] MCHC (RBC) [Mass/Vol] 33.0 g/dL Normal 32-36 [facility] Comment on above: Performed By: #### L 500.2500, L100.0100 #### [facility] [address] [place], [address] MCV (RBC) [Entitic vol] 96.0 fL High 80-94 [facility] Comment on above: Performed By: #### L 500.2500, L100.0100 #### [facility] [address] [place], [address] Monocytes/100 WBC (Bld) 13.0 % High 0-10 [facility] Comment on above: Performed By: #### L 500.2500, L100.0100 #### [facility] [address] [place], [address] Neutrophils/100 WBC (Bld) 62.9 % Normal 47-70 [facility] Comment on above: Performed By: #### L 500.2500, L100.0100 #### [facility] [address] [place], [address] Nucleated RBC (Bld) [#/Vol] 0 10*3/uL Normal 0-5 [facility] Comment on above: Performed By: #### L 500.2500, L100.0100 #### [facility] [address] [place], [address] Platelet mean volume (Bld) [Entitic vol] 8.4 fL Normal 6.2-12.0 [facility] Comment on above: Performed By: #### L 500.2500, L100.0100 #### [facility] [address] [place], [address] Platelets (Bld) [#/Vol] 192 10*3/uL Normal 150-450 [facility] Comment on above: Performed By: #### L 500.2500, L100.0100 #### [facility] [address] [place], [address] RBC (Bld) [#/Vol] 3.50 10*6/uL Low 4.6-6.2 [facility] Comment on above: Performed By: #### L 500.2500, L100.0100 #### [facility] [address] [place], [address] RDW SD 47.9 fl High 35.1-43.9 [facility] Comment on above: Performed By: #### L 500.2500, L100.0100 #### [facility] [address] [place], [address] WBC (Bld) [#/Vol] 6.4 10*3/uL Normal 4.4-11.0 [facility] Comment on above: Performed By: #### L 500.2500, L100.0100 #### [facility] [address] [place], [address] Vitamin D,25 Hydroxyon 03-28 Vitamin D 25-OH 72.5 ng/mL Normal 30-100 [facility] Comment on above: Result Comment: Cynthia min D Status Deficiency: <20 ng/mL (50nmol/L) Insufficiency: 20-30 ng/mL (50-75 nmol/L) Sufficiency: 30-100 ng/mL (75-250 nmol/L) Toxicity: >100 ng/mL (>250 nmol/L) Performed By: #### L 506.1001 ####[facility] [address] [place], [address] Absolute lymphocyte countOrd ered By: Katarina Fabian on 03-27-2025 Lymphocytes Auto (Unsp spec) [#/Vol] 1.03 10*3/uL 0.83-4.51 [facility] Absolute neutrophil countOrd ered By: Katarina Fabian on 03-27-2025 Neutrophils (Bld) [#/Vol] 5.7 10*3/uL 2.0-7.7 [facility] Anion gap in Serum or Plasma Ordered By: Katarina Rosendojakub on 03-27-2025 Anion gap [Moles/Vol] 8 mmol/L 5-15 [facility] Automated lymphocyte count a s percentage of total leukocytesOrdered By: Katarina Robbinsjakub on 03-27-2025 Lymphocytes/100 WBC Auto (Unsp spec) 12.6 % Low 19-41 [facility] BUN/creatinine ratioOrdered By: Katarina Rosendojakub on 03-27-2025 Urea nitrogen/Creatinine [Mass ratio] 26.9 mg/mg High 10-20 [facility] Basic Metabolic Profile (BMP )on 03-27-2025 BUN/CRE 26.9 RATIO High 10-20 [facility] Comment on above: Performed By: #### L 500.2500, L100.0100 #### [facility] [address] [place], [address] Calcium [Mass/Vol] 8.5 mg/dL Normal 7.6-11.0 [facility] Comment on above: Performed By: #### L 500.2500, L100.0100 #### [facility] [address] [place], [address] Chloride [Moles/Vol] 104 mmol/L Normal 98-108 [facility] Comment on above: Performed By: #### L 500.2500, L100.0100 #### [facility] [address] [place], [address] CO2 [Moles/Vol] 32.2 mmol/L High 21.0-32.0 [facility] Comment on above: Performed By: #### L 500.2500, L100.0100 #### [facility] [address] [place], [address] Creatinine [Mass/Vol] 0.67 mg/dL Low 0.70-1.20 [facility] Comment on above: Performed By: #### L 500.2500, L100.0100 #### [facility] [address] [place], [address] ECRCL 70.00 ml/min Normal 50-250 [facility] Comment on above: Performed By: #### L 500.2500, L100.0100 #### [facility] [address] [place], [address] GAP 8 Normal 5-15 [facility] Comment on above: Performed By: #### L 500.2500, L100.0100 #### [facility] [address] [place], [address] GFR/1.73 sq M.predicted among non-blacks MDRD (S/P/Bld) [Vol rate/Area] 95 mL/min/{1.73_m2} Normal >60 [facility] Comment on above: Result Comment: mL/m in/1.73m2 CKD-EPI Creatinine Equation (2020) Performed By: #### L 500.2500, L100.0100 #### [facility] [address] [place], [address] Glucose [Mass/Vol] 95 mg/dL Normal 70-99 [facility] Comment on above: Performed By: #### L 500.2500, L100.0100 #### [facility] [address] [place], [address] Potassium [Moles/Vol] 3.0 mmol/L Low 3.3-5.1 [facility] Comment on above: Performed By: #### L 500.2500, L100.0100 #### [facility] [address] [place], [address] Sodium [Moles/Vol] 145 mmol/L Normal 133-145 [facility] Comment on above: Performed By: #### L 500.2500, L100.0100 #### [facility] [address] [place], [address] Urea nitrogen [Mass/Vol] 18 mg/dL Normal 4-19 [facility] Comment on above: Performed By: #### L 500.2500, L100.0100 #### [facility] [address] [place], [address] Basophil percentageOrdered B y: Katarina Fabian on 03-27-2025 Basophils/100 WBC (Bld) 0.4 % 0-1 [facility] CBC W/Diff, Automatedon 03-02 Absolute Lymph 1.03 X10 3/uL Normal 0.83-4.51 [facility] Comment on above: Performed By: #### L 500.2500, L100.0100 #### [facility] [address] [place], [address] Absolute Neut 5.7 X10 3/uL Normal 2.0-7.7 [facility] Comment on above: Performed By: #### L 500.2500, L100.0100 #### [facility] [address] [place], [address] Basophils/100 WBC (Bld) 0.4 % Normal 0-1 [facility] Comment on above: Performed By: #### L 500.2500, L100.0100 #### [facility] [address] [place], [address] Eosinophils/100 WBC (Bld) 5.7 % High 0-5 [facility] Comment on above: Performed By: #### L 500.2500, L100.0100 #### [facility] [address] [place], [address] Erythrocyte distribution width (RBC) [Ratio] 13.4 % Normal 11.6-14.6 [facility] Comment on above: Performed By: #### L 500.2500, L100.0100 #### [facility] [address] [place], [address] Hematocrit (Bld) [Volume fraction] 33.8 % Low 40-54 [facility] Comment on above: Performed By: #### L 500.2500, L100.0100 #### [facility] [address] [place], [address] Hemoglobin (Bld) [Mass/Vol] 11.5 g/dL Low 13.0-16.5 [facility] Comment on above: Performed By: #### L 500.2500, L100.0100 #### [facility] [address] [place], [address] IG% 0.500 Normal 0.0-0.9 [facility] Comment on above: Result Comment: IG% - Immature Granulocytes (promyelocytes, myelocytes and metamyelocytes) > 1% indicates that a LEFT SHIFT is Present. Performed By: #### L 500.2500, L100.0100 #### [facility] [address] [place], [address] Lymphocytes/100 WBC (Bld) 12.6 % Low 19-41 [facility] Comment on above: Performed By: #### L 500.2500, L100.0100 #### [facility] [address] [place], [address] MCH (RBC) [Entitic mass] 32.1 pg High 27.0-32.0 [facility] Comment on above: Performed By: #### L 500.2500, L100.0100 #### [facility] [address] [place], [address] MCHC (RBC) [Mass/Vol] 34.0 g/dL Normal 32-36 [facility] Comment on above: Performed By: #### L 500.2500, L100.0100 #### [facility] [address] [place], [address] MCV (RBC) [Entitic vol] 94.4 fL High 80-94 [facility] Comment on above: Performed By: #### L 500.2500, L100.0100 #### [facility] [address] [place], [address] Monocytes/100 WBC (Bld) 11.8 % High 0-10 [facility] Comment on above: Performed By: #### L 500.2500, L100.0100 #### [facility] [address] [place], [address] Neutrophils/100 WBC (Bld) 69.0 % Normal 47-70 [facility] Comment on above: Performed By: #### L 500.2500, L100.0100 #### [facility] [address] [place], [address] Nucleated RBC (Bld) [#/Vol] 0 10*3/uL Normal 0-5 [facility] Comment on above: Performed By: #### L 500.2500, L100.0100 #### [facility] [address] [place], [address] Platelet mean volume (Bld) [Entitic vol] 9.1 fL Normal 6.2-12.0 [facility] Comment on above: Performed By: #### L 500.2500, L100.0100 #### [facility] [address] [place], [address] Platelets (Bld) [#/Vol] 211 10*3/uL Normal 150-450 [facility] Comment on above: Performed By: #### L 500.2500, L100.0100 #### [facility] [address] [place], [address] RBC (Bld) [#/Vol] 3.58 10*6/uL Low 4.6-6.2 [facility] Comment on above: Performed By: #### L 500.2500, L100.0100 #### [facility] [address] [place], [address] RDW SD 45.9 fl High 35.1-43.9 [facility] Comment on above: Performed By: #### L 500.2500, L100.0100 #### [facility] [address] [place], [address] WBC (Bld) [#/Vol] 8.2 10*3/uL Normal 4.4-11.0 [facility] Comment on above: Performed By: #### L 500.2500, L100.0100 #### [facility] [address] [place], [address] Carbon dioxide, total [Moles /volume] in Central venous bloodOrdered By: Katarina Fabian on 03-27-2025 CO2 [Moles/Vol] 32.2 mmol/L High 21.0-32.0 [facility] Chloride assayOrdered By: Smiley Fabian on 03-27-2025 Chloride [Moles/Vol] 104 mmol/L 98-108 [facility] Eosinophil percentageOrdered By: Katarina Fabian on 03-27-2025 Eosinophils/100 WBC (Bld) 5.7 % High 0-5 [facility] Erythrocyte distribution wid th ratioOrdered By: Katarina Fbaian on 03-27-2025 Erythrocyte distribution width (RBC) [Ratio] 13.4 % 11.6-14.6 [facility] Erythrocyte distribution wid th standard deviationOrdered By: Katarina Fabian on 03-27-2025 Erythrocyte distribution width (RBC) [Ratio] 45.9 fl High 35.1-43.9 [facility] Glomerular filtration rate ( GFR) estimation/1.73 sq m using serum, plasma, or whole bOrdered By: Katarina Fabian on 03-27-2025 GFR/1.73 sq M.predicted among non-blacks MDRD (S/P/Bld) [Vol rate/Area] 95 mL/min/{1.73_m2} >60 [facility] Comment on above: mL/min/1.73m2 CKD-EP I Creatinine Equation (2020) Hematocrit Auto (Bld) [Volum e fraction]Ordered By: Katarina Fabian on 03-27-2025 Hematocrit (Bld) [Volume fraction] 33.8 % Low 40-54 [facility] Hemoglobin measurementOrdere d By: Katarina Fabian on 03-27-2025 Hemoglobin (Bld) [Mass/Vol] 11.5 g/dL Low 13.0-16.5 [facility] Immature granulocytes/100 WB C Auto (Bld)Ordered By: Katarina Fabian on 03-27-2025 Immature granulocytes/100 WBC (Bld) 0.500 % 0.0-0.9 [facility] Comment on above: IG% - Immature Granu locytes (promyelocytes, myelocytes and metamyelocytes) > 1% indicates that a LEFT SHIFT is Present. MCV (mean corpuscular volume ) determinationOrdered By: Katarina Fabian 03-27-2025 MCV (RBC) [Entitic vol] 94.4 fL High 80-94 [facility] Mean corpuscular hemoglobin (MCH) determinationOrdered By: Katarina Fabian 03-27-2025 MCH (RBC) [Entitic mass] 32.1 pg High 27.0-32.0 [facility] Mean corpuscular hemoglobin concentration (MCHC) determinationOrdered By: Katarina Fabian 03-27-2025 MCHC (RBC) [Mass/Vol] 34.0 g/dL 32-36 [facility] Mean platelet volume determi nationOrdered By: Katarina Fabian 03-27-2025 Platelet mean volume (Bld) [Entitic vol] 9.1 fL 6.2-12.0 [facility] Monocyte percentageOrdered B y: Katarina Fabian on 03-27-2025 Monocytes/100 WBC (Bld) 11.8 % High 0-10 [facility] Neutrophil percentageOrdered By: Katarina Fabian 03-27-2025 Neutrophils/100 WBC (Bld) 69.0 % 47-70 [facility] Nucleated red blood cell per centageOrdered By: Katarina Fabian on 03-27-2025 Nucleated RBC/100 WBC (Bld) [Ratio] 0 % 0-5 [facility] Platelet countOrdered By: Smiley Fabian on 03-27-2025 Platelets (Bld) [#/Vol] 211 10*3/uL 150-450 [facility] Potassium measurement (mass/ volume)Ordered By: Katarina Fabian on 03-27-2025 Potassium (Unsp spec) [Mass/Vol] 3.0 mmol/L Low 3.3-5.1 [facility] RBC Auto (Bld) [#/Vol]Ordere d By: Katarina Fabian on 03-27-2025 RBC (Bld) [#/Vol] 3.58 10*6/uL Low 4.6-6.2 [facility] Serum creatinine measurement (mass/volume)Ordered By: Katarina Fabian on 03-27-2025 Creatinine [Mass/Vol] 0.67 mg/dL Low 0.70-1.20 [facility] Serum glucose measurement (m ass/volume)Ordered By: Katarina Fabian on 03-27-2025 Glucose [Mass/Vol] 95 mg/dL 70-99 [facility] Serum or plasma calcium jovita urement (mass/volume)Ordered By: Katarina Fabian on 03-27-2025 Calcium [Mass/Vol] 8.5 mg/dL 7.6-11.0 [facility] Serum or plasma urea nitroge n measurement (mass/volume)Ordered By: Katarina Fabian on 03-27-2025 Urea nitrogen [Mass/Vol] 18 mg/dL 4-19 [facility] Sodium levelOrdered By: Katarina Fabian on 03-27-2025 Sodium [Moles/Vol] 145 mmol/L 133-145 [facility] White blood cell (WBC) count Ordered By: Katarina Fabian on 03-27-2025 WBC (Bld) [#/Vol] 8.2 10*3/uL 4.4-11.0 [facility] Basic Metabolic Profile (BMP )on 03-26-2025 BUN/CRE 21.8 RATIO High 10-20 [facility] Comment on above: Performed By: #### L 500.2500, L100.0100 #### [facility] [address] [place], [address] Calcium [Mass/Vol] 8.5 mg/dL Normal 7.6-11.0 [facility] Comment on above: Performed By: #### L 500.2500, L100.0100 #### [facility] [address] [place], [address] Chloride [Moles/Vol] 103 mmol/L Normal 98-108 [facility] Comment on above: Performed By: #### L 500.2500, L100.0100 #### [facility] [address] [place], [address] CO2 [Moles/Vol] 32.6 mmol/L High 21.0-32.0 [facility] Comment on above: Result Comment: QC O K Performed By: #### L 500.2500, L100.0100 #### [facility] [address] [place], [address] Creatinine [Mass/Vol] 0.79 mg/dL Normal 0.70-1.20 [facility] Comment on above: Performed By: #### L 500.2500, L100.0100 #### [facility] [address] [place], [address] ECRCL 70.00 ml/min Normal 50-250 [facility] Comment on above: Performed By: #### L 500.2500, L100.0100 #### [facility] [address] [place], [address] GAP 8 Normal 5-15 [facility] Comment on above: Performed By: #### L 500.2500, L100.0100 #### [facility] [address] [place], [address] GFR/1.73 sq M.predicted among non-blacks MDRD (S/P/Bld) [Vol rate/Area] 91 mL/min/{1.73_m2} Normal >60 [facility] Comment on above: Result Comment: mL/m in/1.73m2 CKD-EPI Creatinine Equation (2020) Performed By: #### L 500.2500, L100.0100 #### [facility] [address] [place], [address] Glucose [Mass/Vol] 96 mg/dL Normal 70-99 [facility] Comment on above: Performed By: #### L 500.2500, L100.0100 #### [facility] [address] [place], [address] Potassium [Moles/Vol] 3.3 mmol/L Normal 3.3-5.1 [facility] Comment on above: Performed By: #### L 500.2500, L100.0100 #### [facility] [address] [place], [address] Sodium [Moles/Vol] 144 mmol/L Normal 133-145 [facility] Comment on above: Performed By: #### L 500.2500, L100.0100 #### [facility] [address] [place], [address] Urea nitrogen [Mass/Vol] 17 mg/dL Normal 4-19 [facility] Comment on above: Performed By: #### L 500.2500, L100.0100 #### [facility] [address] [place], [address] CBC W/Diff, Automatedon 07-2 Absolute Lymph 1.01 X10 3/uL Normal 0.83-4.51 [facility] Comment on above: Performed By: #### L 500.2500, L100.0100 #### [facility] [address] [place], [address] Absolute Neut 4.6 X10 3/uL Normal 2.0-7.7 [facility] Comment on above: Performed By: #### L 500.2500, L100.0100 #### [facility] [address] [place], [address] Basophils/100 WBC (Bld) 0.4 % Normal 0-1 [facility] Comment on above: Performed By: #### L 500.2500, L100.0100 #### [facility] [address] [place], [address] Eosinophils/100 WBC (Bld) 7.5 % High 0-5 [facility] Comment on above: Performed By: #### L 500.2500, L100.0100 #### [facility] [address] [place], [address] Erythrocyte distribution width (RBC) [Ratio] 13.2 % Normal 11.6-14.6 [facility] Comment on above: Performed By: #### L 500.2500, L100.0100 #### [facility] [address] [place], [address] Hematocrit (Bld) [Volume fraction] 34.4 % Low 40-54 [facility] Comment on above: Performed By: #### L 500.2500, L100.0100 #### [facility] [address] [place], [address] Hemoglobin (Bld) [Mass/Vol] 11.6 g/dL Low 13.0-16.5 [facility] Comment on above: Performed By: #### L 500.2500, L100.0100 #### [facility] [address] [place], [address] IG% 0.400 Normal 0.0-0.9 [facility] Comment on above: Result Comment: IG% - Immature Granulocytes (promyelocytes, myelocytes and metamyelocytes) > 1% indicates that a LEFT SHIFT is Present. Performed By: #### L 500.2500, L100.0100 #### [facility] [address] [place], [address] Lymphocytes/100 WBC (Bld) 14.1 % Low 19-41 [facility] Comment on above: Performed By: #### L 500.2500, L100.0100 #### [facility] [address] [place], [address] MCH (RBC) [Entitic mass] 32.1 pg High 27.0-32.0 [facility] Comment on above: Performed By: #### L 500.2500, L100.0100 #### [facility] [address] [place], [address] MCHC (RBC) [Mass/Vol] 33.7 g/dL Normal 32-36 [facility] Comment on above: Performed By: #### L 500.2500, L100.0100 #### [facility] [address] [place], [address] MCV (RBC) [Entitic vol] 95.3 fL High 80-94 [facility] Comment on above: Performed By: #### L 500.2500, L100.0100 #### [facility] [address] [place], [address] Monocytes/100 WBC (Bld) 13.0 % High 0-10 [facility] Comment on above: Performed By: #### L 500.2500, L100.0100 #### [facility] [address] [place], [address] Neutrophils/100 WBC (Bld) 64.6 % Normal 47-70 [facility] Comment on above: Performed By: #### L 500.2500, L100.0100 #### [facility] [address] [place], [address] Nucleated RBC (Bld) [#/Vol] 0.3 10*3/uL Normal 0-5 [facility] Comment on above: Performed By: #### L 500.2500, L100.0100 #### [facility] [address] [place], [address] Platelet mean volume (Bld) [Entitic vol] 9.1 fL Normal 6.2-12.0 [facility] Comment on above: Performed By: #### L 500.2500, L100.0100 #### [facility] [address] [place], [address] Platelets (Bld) [#/Vol] 210 10*3/uL Normal 150-450 [facility] Comment on above: Performed By: #### L 500.2500, L100.0100 #### [facility] [address] [place], [address] RBC (Bld) [#/Vol] 3.61 10*6/uL Low 4.6-6.2 [facility] Comment on above: Performed By: #### L 500.2500, L100.0100 #### [facility] [address] [place], [address] RDW SD 46.3 fl High 35.1-43.9 [facility] Comment on above: Performed By: #### L 500.2500, L100.0100 #### [facility] [address] [place], [address] WBC (Bld) [#/Vol] 7.2 10*3/uL Normal 4.4-11.0 [facility] Comment on above: Performed By: #### L 500.2500, L100.0100 #### [facility] [address] [place], [address] Chest 1 View (Portable)on Chest 1 View (Portable) [facility] Imaging Services [address] [place] [address] Chest 1 View (Portable) MR#: [id number] Acct: [id number] Name: NANCY SY Rep #: [id number] : 1945 M 80 From: Izaiah Baptiste MD PCP: LOIS Resendiz Status: ADM IN Study: Chest 1 View (Portable) Date of Exam: 03/26/25 Exam# [id number] Ordering Dr: Katarina Fabian MD EXAM: XR Chest, 1 View CLINICAL INDICATION: 2 L NC REQUIREMENT TECHNIQUE: Frontal view of the chest. COMPARISON: No relevant prior studies available. FINDINGS: LUNGS AND PLEURAL SPACES: See below. HEART: Cardiomegaly with mild congestion. MEDIASTINUM: Unremarkable. Normal mediastinal contour. BONES/JOINTS: Unremarkable. No acute fracture. RAD/Chest 1 View (Portable) IMPRESSION: Cardiomegaly with mild congestion. Reading Location: [facility] CC: ISAÍAS-Shahla Brand; Dr. Katarina Fabian MD [employer] Manager: Signed Normal [facility] Basic Metabolic Profile (BMP )on 03-25-2025 BUN/CRE 22.6 RATIO High 10-20 [facility] Comment on above: Performed By: #### L 500.2500, L100.0100 #### [facility] [address] [place], [address] Calcium [Mass/Vol] 8.1 mg/dL Normal 7.6-11.0 [facility] Comment on above: Performed By: #### L 500.2500, L100.0100 #### [facility] [address] [place], [address] Chloride [Moles/Vol] 104 mmol/L Normal 98-108 [facility] [facility] Comment on above: Performed By: #### L 500.2500, L100.0100 #### [facility] [address] [place], [address] CO2 [Moles/Vol] 30.4 mmol/L Normal 21.0-32.0 [facility] Comment on above: Performed By: #### L 500.2500, L100.0100 #### [facility] [address] [place], [address] Creatinine [Mass/Vol] 0.75 mg/dL Normal 0.70-1.20 [facility] Comment on above: Performed By: #### L 500.2500, L100.0100 #### [facility] [address] [place], [address] ECRCL 70.00 ml/min Normal 50-250 [facility] Comment on above: Performed By: #### L 500.2499, L100.0100 #### [facility] [address] [place], [address] GAP 10 Normal 5-15 [facility] Comment on above: Performed By: #### L 500.2499, L100.0100 #### [facility] [address] [place], [address] GFR/1.73 sq M.predicted among non-blacks MDRD (S/P/Bld) [Vol rate/Area] 92 mL/min/{1.73_m2} Normal >60 [facility] Comment on above: Result Comment: mL/m in/1.73m2 CKD-EPI Creatinine Equation (2020) Performed By: #### L 500.2499, L100.0100 #### [facility] [address] [place], [address] Glucose [Mass/Vol] 94 mg/dL Normal 70-99 [facility] Comment on above: Performed By: #### L 500.2500, L100.0100 #### [facility] [address] [place], [address] Potassium [Moles/Vol] 3.1 mmol/L Low 3.3-5.1 [facility] Comment on above: Performed By: #### L 500.2500, L100.0100 #### [facility] [address] [place], [address] Sodium [Moles/Vol] 145 mmol/L Normal 133-145 [facility] Comment on above: Performed By: #### L 500.2500, L100.0100 #### [facility] [address] [place], [address] Urea nitrogen [Mass/Vol] 17 mg/dL Normal 4-19 [facility] Comment on above: Performed By: #### L 500.2500, L100.0100 #### [facility] [address] [place], [address] CBC W/Diff, Automatedon 07-2 5-2024 Absolute Lymph 1.31 X10 3/uL Normal 0.83-4.51 [facility] Comment on above: Performed By: #### L 500.2500, L100.0100 #### [facility] [address] [place], [address] Absolute Neut 4.4 X10 3/uL Normal 2.0-7.7 [facility] Comment on above: Performed By: #### L 500.2500, L100.0100 #### [facility] [address] [place], [address] Basophils/100 WBC (Bld) 0.4 % Normal 0-1 [facility] Comment on above: Performed By: #### L 500.2500, L100.0100 #### [facility] [address] [place], [address] Eosinophils/100 WBC (Bld) 6.6 % High 0-5 [facility] Comment on above: Performed By: #### L 500.2500, L100.0100 #### [facility] [address] [place], [address] Erythrocyte distribution width (RBC) [Ratio] 13.4 % Normal 11.6-14.6 [facility] Comment on above: Performed By: #### L 500.2500, L100.0100 #### [facility] [address] [place], [address] Hematocrit (Bld) [Volume fraction] 34.4 % Low 40-54 [facility] Comment on above: Performed By: #### L 500.2500, L100.0100 #### [facility] [address] [place], [address] Hemoglobin (Bld) [Mass/Vol] 11.5 g/dL Low 13.0-16.5 [facility] Comment on above: Performed By: #### L 500.2500, L100.0100 #### [facility] [address] [place], [address] IG% 0.300 Normal 0.0-0.9 [facility] Comment on above: Result Comment: IG% - Immature Granulocytes (promyelocytes, myelocytes and metamyelocytes) > 1% indicates that a LEFT SHIFT is Present. Performed By: #### L 500.2500, L100.0100 #### [facility] [address] [place], [address] Lymphocytes/100 WBC (Bld) 18.3 % Low 19-41 [facility] Comment on above: Performed By: #### L 500.2500, L100.0100 #### [facility] [address] [place], [address] MCH (RBC) [Entitic mass] 31.9 pg Normal 27.0-32.0 [facility] Comment on above: Performed By: #### L 500.2500, L100.0100 #### [facility] [address] [place], [address] MCHC (RBC) [Mass/Vol] 33.4 g/dL Normal 32-36 [facility] Comment on above: Performed By: #### L 500.2500, L100.0100 #### [facility] [address] [place], [address] MCV (RBC) [Entitic vol] 95.3 fL High 80-94 [facility] Comment on above: Performed By: #### L 500.2500, L100.0100 #### [facility] [address] [place], [address] Monocytes/100 WBC (Bld) 13.5 % High 0-10 [facility] Comment on above: Performed By: #### L 500.2500, L100.0100 #### [facility] [address] [place], [address] Neutrophils/100 WBC (Bld) 60.9 % Normal 47-70 [facility] Comment on above: Performed By: #### L 500.2500, L100.0100 #### [facility] [address] [place], [address] Nucleated RBC (Bld) [#/Vol] 0 10*3/uL Normal 0-5 [facility] Comment on above: Performed By: #### L 500.2500, L100.0100 #### [facility] [address] [place], [address] Platelet mean volume (Bld) [Entitic vol] 9.2 fL Normal 6.2-12.0 [facility] Comment on above: Performed By: #### L 500.2500, L100.0100 #### [facility] [address] [place], [address] Platelets (Bld) [#/Vol] 208 10*3/uL Normal 150-450 [facility] Comment on above: Performed By: #### L 500.2500, L100.0100 #### [facility] [address] [place], [address] RBC (Bld) [#/Vol] 3.61 10*6/uL Low 4.6-6.2 [facility] Comment on above: Performed By: #### L 500.2500, L100.0100 #### [facility] [address] [place], [address] RDW SD 47.3 fl High 35.1-43.9 [facility] Comment on above: Performed By: #### L 500.2500, L100.0100 #### [facility] [address] [place], [address] WBC (Bld) [#/Vol] 7.2 10*3/uL Normal 4.4-11.0 [facility] Comment on above: Performed By: #### L 500.2500, L100.0100 #### [facility] [address] [place], [address] Consultation - Orthopedicson 03-25-2025 Consultation - Orthopedics [facility] Medical Records Department [address] [place] [address] Consultation - Orthopedics 03/25/25 1307 MR#: [id number] Acct: [id number] Name: NANCY SY Rep #: [id number] : 1945 80 From: Zandra Freire MD PCP: LOIS Resendiz Status:ADM IN Location: [place] [id number] HPI Consult Data Date of Consult: 03/25/25 [...] trending, OA, Allergic rhinitis, Former tobacco use [facility] Medical History CKD (chronic kidney disease), stage [...] Delivery Metho (more content not included)... Normal [facility] Electrocardiogram reportOrde red By: Shady Loving on 03-25-2025 EKG study [facility] Cardiovascular Services [address] [place] [address] 12 Lead EKG 03/23/25 1734 MR#: [id number] Acct: [id number] Name: NANCY SY Rep #:[id number] : 1945 80 From: Shady wang MD Attending Dr: Dr. Katarina Fabian MD Status: ADM IN Ordering Dr: Marco Camacho DO Date: 03/23/25 Location: [facility] Sex: M C Admitted: 03/23/25 Test [...] normal ECG Confirmed by INDER GOODSON, FRANNY ([id number]), fan mail editor BEVERLEY ZAPATA ([id number]) on 03/25/2025 1:10:30 PM Referred By: Confirmed By: FRANNY LOVING MD 03/25/25 1310 Date _ Shady Loving MD CC: LOIS Brand; Dr. Katarina Fabian MD; Dr. Marco Camacho DO ~ Signed [facility] Work Phone: Magnetic resonance imaging r eportOrdered By: Abraham Mralow on 03-25-2025 Study report [facility] Imaging Services [address] [place] [phone] Spine Thoracic (Routine) MR#: [id number] Acct: [id number] Name: NANCY SY Rep #: [id number] : 1945 M 80 From: Eloise Marlow MD PCP: LOIS Resendiz Status: ADM I N Study:Spine Thoracic (Routine) Date of Exam: 03/24/25 Exam# [id number] Ordering Dr: Kimberlee Pham MD PROCEDURE: SPINE [...] the anterior thecal sac from the fracture K2ehxdihjcj body in the retropulsed portion of the [...] Correlate with radiculopathy at T9. Reading Location: [id number] CC: LOIS Brand; Dr. Merry Pham MD ~ Warehouse Logistics Manager: Signed [facility] Study report [facility] Imaging Services [address] [place] [address] [phone] Spine Lumbar (Routine) MR#: [id number] Acct: [id number] Name: NANCY SY Rep #: [id number] : 1945 M 80 From: Eloise Marlow MD PCP: Katherine Brand, OPEN CLAIMS REPRESENTATIVE-C Status: ADM I N Study:Spine Lumbar (Routine) Date of Exam: 03/24/25 Exam# [id number] Ordering Dr: Kimberlee Pham MD PROCEDURE: SPINE [...] the right. L2-3: Mild, diffuse disc bulge. Dpih-zh-qelgpqfs thickening of ligamentum flavum. Minimal facet hypertrophy. No central stenosis or exit foraminal narrowing. L3-4: Mild, diffuse disc bulge. Moderate thickening of ligamentum flavum. Minimal bilateral facet hypertrophy. Borderline narrowing of the exit foramina. Correlate with L3 radiculopathy. L4-5: Moderate, diffuse disc bulge. Severe thickening of ligamentum flavum. Gxge-rs-xwubgnpe facet hypertrophy. Central stenosis to 9 mm AP. Pzumd-bvmhewr-yumm-l eft severe exit foraminal narrowing. Correlate with [...] L4/5 and L5/S1 as above. Reading Location: [facility] CC: LOIS Brand; Dr. Merry Pham MD ~ Warehouse Logistics Manager: Signed [facility] Bilirubin, totalOrdered By: Merry Pham on 03-24-2025 Bilirubin [Mass/Vol] 0.36 mg/dL 0.00-1.30 [facility] CBC W/Diff, Automatedon 03-02 Absolute Lymph 1.38 X10 3/uL Normal 0.83-4.51 [facility] Comment on above: Performed By: #### L 499.0042 #### [facility] [place], [address] Absolute Neut 4.4 X10 3/uL Normal 2.0-7.7 [facility] Comment on above: Performed By: #### L 499.0042 #### [facility] [address] [place], [address] Basophils/100 WBC (Bld) 0.4 % Normal 0-1 [facility] Comment on above: Performed By: #### L 499.0042 #### [facility] [address] [place], [address] Eosinophils/100 WBC (Bld) 5.0 % Normal 0-5 [facility] Comment on above: Performed By: #### L 499.0042 #### [facility] [address] [place], [address] Erythrocyte distribution width (RBC) [Ratio] 13.6 % Normal 11.6-14.6 [facility] Comment on above: Performed By: #### L 499.0042 #### [facility] [address] [place], [address] Hematocrit (Bld) [Volume fraction] 34.2 % Low 40-54 [facility] Comment on above: Performed By: #### L 499.0042 #### [facility] [address] [place], [address] Hemoglobin (Bld) [Mass/Vol] 11.6 g/dL Low 13.0-16.5 [facility] Comment on above: Performed By: #### L 499.0042 #### [facility] [address] [place], [address] IG% 0.400 Normal 0.0-0.9 [facility] Comment on above: Result Comment: IG% - Immature Granulocytes (promyelocytes, myelocytes and metamyelocytes) > 1% indicates that a LEFT SHIFT is Present. Performed By: #### L 499.0042 #### [facility] [address] [place], [address] Lymphocytes/100 WBC (Bld) 19.2 % Normal 19-41 [facility] Comment on above: Performed By: #### L 499.0042 #### [facility] [address] [place], [address] MCH (RBC) [Entitic mass] 32.0 pg Normal 27.0-32.0 [facility] Comment on above: Performed By: #### L 499.0042 #### [facility] [address] [place], [address] MCHC (RBC) [Mass/Vol] 33.9 g/dL Normal 32-36 [facility] Comment on above: Performed By: #### L 499.0042 #### [facility] [address] [place], [address] MCV (RBC) [Entitic vol] 94.5 fL High 80-94 [facility] Comment on above: Performed By: #### L 499.0042 #### [facility] [address] [place], [address] Monocytes/100 WBC (Bld) 13.4 % High 0-10 [facility] Comment on above: Performed By: #### L 499.0042 #### [facility] [address] [place], [address] Neutrophils/100 WBC (Bld) 61.6 % Normal 47-70 [facility] Comment on above: Performed By: #### L 499.0042 #### [facility] [address] [place], [address] Nucleated RBC (Bld) [#/Vol] 0 10*3/uL Normal 0-5 [facility] Comment on above: Performed By: #### L 499.0042 #### [facility] [address] [place], [address] Platelet mean volume (Bld) [Entitic vol] 9.0 fL Normal 6.2-12.0 [facility] Comment on above: Performed By: #### L 499.0042 #### [facility] [address] [place], [address] Platelets (Bld) [#/Vol] 219 10*3/uL Normal 150-450 [facility] Comment on above: Performed By: #### L 499.0042 #### [facility] [address] [place], [address] RBC (Bld) [#/Vol] 3.62 10*6/uL Low 4.6-6.2 [facility] Comment on above: Performed By: #### L 499.0042 #### [facility] [address] [place], [address] RDW SD 47.5 fl High 35.1-43.9 [facility] Comment on above: Performed By: #### L 499.0042 #### [facility] [address] [place], [address] WBC (Bld) [#/Vol] 7.2 10*3/uL Normal 4.4-11.0 [facility] Comment on above: Performed By: #### L 499.0042 #### [facility] [address] [place], [address] Calculated very low density lipoprotein (VLDL) cholesterol measurementOrdered By: Merry Pham on 03-24-2025 Calculated very low density lipoprotein (VLDL) cholesterol measurement 9 mg/dL 5-40 [facility] Comprehensive Metabolic Prof ilon 03-24-2025 Albumin [Mass/Vol] 3.3 g/dL Low 3.4-4.8 [facility] Comment on above: Performed By: #### L 499.0042 #### [facility] [address] [place], [address] Albumin/Globulin [Mass ratio] 1.5 {ratio} Normal 0.9-2.4 [facility] Comment on above: Performed By: #### L 499.0042 #### [facility] [address] [place], [address] ALK PHOS 102 U/L Normal 40-129 [facility] Comment on above: Performed By: #### L 499.0042 #### [facility] [address] [place], [address] ALT [Catalytic activity/Vol] 7 U/L Normal <=46 [facility] Comment on above: Performed By: #### L 499.0042 #### [facility] [address] [place], [address] AST [Catalytic activity/Vol] 14 U/L Normal <=37 [facility] Comment on above: Performed By: #### L 499.0042 #### [facility] [address] [place], [address] Bilirubin [Mass/Vol] 0.36 mg/dL Normal 0.00-1.30 [facility] Comment on above: Performed By: #### L 499.0042 #### [facility] [address] [place], [address] BUN/CRE 18.8 RATIO Normal 10-20 [facility] Comment on above: Performed By: #### L 499.0042 #### [facility] [address] [place], [address] Calcium [Mass/Vol] 8.7 mg/dL Normal 7.6-11.0 [facility] Comment on above: Performed By: #### L 499.0042 #### [facility] [address] [place], [address] Chloride [Moles/Vol] 105 mmol/L Normal 98-108 [facility] Comment on above: Performed By: #### L 499.0042 #### [facility] [address] [place], [address] CO2 [Moles/Vol] 30.9 mmol/L Normal 21.0-32.0 [facility] Comment on above: Performed By: #### L 499.0042 #### [facility] [address] [place], [address] Creatinine [Mass/Vol] 0.85 mg/dL Normal 0.70-1.20 [facility] Comment on above: Performed By: #### L 499.0042 #### [facility] [address] [place], [address] ECRCL 65.88 ml/min Normal 50-250 [facility] Comment on above: Performed By: #### L 499.0042 #### [facility] [address] [place], [address] GAP 9 Normal 5-15 [facility] Comment on above: Performed By: #### L 499.0042 #### [facility] [address] [place], [address] GFR/1.73 sq M.predicted among non-blacks MDRD (S/P/Bld) [Vol rate/Area] 88 mL/min/{1.73_m2} Normal >60 [facility] Comment on above: Result Comment: mL/m in/1.73m2 CKD-EPI Creatinine Equation (2020) Performed By: #### L 499.0042 #### [facility] [address] [place], [address] Globulin (S) [Mass/Vol] 2.2 g/dL Normal 2.2-4.2 [facility] Comment on above: Performed By: #### L 499.0042 #### [facility] [address] [place], [address] Glucose [Mass/Vol] 96 mg/dL Normal 70-99 [facility] Comment on above: Performed By: #### L 499.0042 #### [facility] [address] [place], [address] Potassium [Moles/Vol] 3.7 mmol/L Normal 3.3-5.1 [facility] Comment on above: Performed By: #### L 499.0042 #### [facility] [address] [place], [address] Sodium [Moles/Vol] 145 mmol/L Normal 133-145 [facility] Comment on above: Performed By: #### L 499.0042 #### [facility] [address] [place], [address] T PROT 5.6 g/dL Low 5.9-8.4 [facility] Comment on above: Performed By: #### L 499.0042 #### [facility] [address] [place], [address] Urea nitrogen [Mass/Vol] 16 mg/dL Normal 4-19 [facility] Comment on above: Performed By: #### L 499.0042 #### [facility] [address] [place], [address] Echocardiogram study reportO rdered By: Shady Loving on 03-24-2025 Study report [facility] [address] [place] [address] Echo Complete 03/24/25 0814 MR#: [id number] Acct: [id number] Name: NANCY SY Rep #:[id number] : 1945 80 From: Shady lea MD Attending Dr: Dr. Katarina Fabian MD Status: ADM IN Ordering Dr: Merry Pham MD Date: 03/23/25 Location: U Sex: M C Admitted: 03/23/25 Reason For [...] Date Dictated: 03/24/25813 Date Transcribed: 03/24/25 1132 Warehouse Logistics Manager: Signed [facility] Work Phone: Ferritinon 03-24-2025 Ferritin [Mass/Vol] 680 ng/mL High 37-417 [facility] Comment on above: Performed By: #### L 499.0042 #### [facility] [address] [place], [place], [address] Folate [Mass/volume] in Seru m or PlasmaOrdered By: Merry Pham on 03-24-2025 Folate [Mass/Vol] 8.06 ng/mL 4.60-34.80 [facility] Comment on above: Hemolysis, Results w ill be affected, Requires Recollection. Folates,Serum (Folic Acid)on 03-24-2025 FOLATES,SERUM 8.06 ng/mL Normal 4.60-34.80 [facility] Comment on above: Result Comment: Hemo lysis, Results will be affected, Requires Recollection. Performed By: #### L 500.2500, L100.0100 #### [facility] [address] [place], [place], [address] Iron measurement (mass/mass) Ordered By: Merry Pham on 03-24-2025 Iron (Unsp spec) [Mass/Mass] 49 ug/dL Low 65-175 [facility] Iron+Iron Binding Capacityon 03-24-2025 TIBC 168 ug/dL Low 250-450 [facility] Comment on above: Performed By: #### L 499.0042 #### [facility] [address] [place], [place], [address] LDL calc ser/plasOrdered By: Merry Pham on 03-24-2025 Cholesterol in LDL [Mass/Vol] 62 mg/dL [facility] Comment on above: Ccxyrfnyzt=042-592 m g/dL & Higher Tgwt=808 mg/dL or greater Laboratory - Chemistry and C hemistry - challengeOrdered By: Merry Pham on 03-24-2025 AST [Catalytic activity/Vol] 14 U/L <38 [facility] Lipid Profileon 03-24-2025 CHOL:HDL 3.02 Normal [facility] Comment on above: Performed By: #### L 499.0042 #### [facility] [address] [place], [address] Cholesterol [Mass/Vol] 106 mg/dL Normal <=200 [facility] Comment on above: Result Comment: Chol esterol level, Desirable <200 mg/dL Borderline high cholesterol 200-239 mg/dL High cholesterol >=240 mg/dL Recommendations of the NCEP Adult Treatment Panel for the following risk-cutoff thresholds for the [place] population. Performed By: #### L 499.0042 #### [facility] [address] [place], [address] Cholesterol in HDL [Mass/Vol] 35 mg/dL Low [facility] Comment on above: Result Comment: Zenia onal Cholesterol Education Program (NCEP) guidelines: <40 mg/dL: Low HDL-cholesterol (major risk factor for CHD) >= 60 mg/dL: High HDL-cholesterol (negative risk factor for CHD) HDL-cholesterol is affected by a number of factors, e.g. smoking, exercise, hormones, sex and age. Performed By: #### L 499.0042 #### [facility] [address] [place], [address] Cholesterol in LDL [Mass/Vol] 62 mg/dL Normal [facility] Comment on above: Result Comment: Bord ecvqkx=169-277 mg/dL Higher Qxwt=323 mg/dL or greater Performed By: #### L 499.0042 #### [facility] [address] [place], [address] Cholesterol in VLDL [Mass/Vol] 9 mg/dL Normal 5-40 [facility] Comment on above: Performed By: #### L 499.0042 #### [facility] [address] [place], [address] Triglyceride [Mass/Vol] 45 mg/dL Normal [facility] Comment on above: Result Comment: The drugs N-Acetylcysteine and Metamizole may falsely depress this assay. Normal range: <150 mg/dL Borderline High: 150-199 mg/dL High: 200-499 mg/dL Very High: >500 mg/dL Performed By: #### L 499.0042 #### [facility] [place], [address] No Panel InformationOrdered By: Merry Pham on 03-24-2025 Unsaturated Iron Binding Capacity 119 ug/dL Low 228-428 [facility] Screening total cholesterol/ high density lipoprotein (HDL) cholesterol ratioOrdered By: Merry Pham on 03-24-2025 Cholesterol.total/Annia sterol in HDL [Mass ratio] 3.02 {ratio} [facility] Serum globulin measurementOr dered By: Merry Pham on 03-24-2025 Globulin (S) [Mass/Vol] 2.2 g/dL 2.2-4.2 [facility] Serum or plasma alanine gann otransferase (ALT) measurementOrdered By: Merry Pham 03-24-2025 ALT [Catalytic activity/Vol] 7 U/L <47 [facility] Serum or plasma albumin jovita urement (mass/volume)Ordered By: Merry Pham 03-24-2025 Albumin [Mass/Vol] 3.3 g/dL Low 3.4-4.8 [facility] Serum or plasma albumin/glob ulin mass ratioOrdered By: Merry Vero 03-24-2025 Albumin/Globulin [Mass ratio] 1.5 {ratio} 0.9-2.4 [facility] Serum or plasma alkaline vincent sphatase measurementOrdered By: Merry Pham 03-24-2025 ALP [Catalytic activity/Vol] 102 U/L 40-129 [facility] Serum or plasma cholesterol in HDL measurement (mass/volume)Ordered By: [facility] Vero 03-24-2025 Cholesterol in HDL [Mass/Vol] 35 mg/dL Low >40 [facility] Comment on above: National Cholesterol Education Program (NCEP) guidelines:<40 mg/dL: Low HDL-cholesterol (major risk factor for CHD)>= 60 mg/dL: High HDL-cholesterol (negative risk factor for CHD)HDL-cholesterol is affected by a number of factors, e.g. smoking, exercise, hormones, sex and age. Serum or plasma cholesterol measurement (mass/volume)Ordered By: Merry Pham on 03-24-2025 Cholesterol [Mass/Vol] 106 mg/dL <201 [facility] Comment on above: Cholesterol level, D esirable <200 mg/dLBorderline high cholesterol 200-239 mg/dLHigh cholesterol >=240 mg/dLRecommendations of the NCEP Adult Treatment Panel for the following risk-cutoff thresholds for the [place] population. Serum or plasma ferritin jermain surement (mass/volume)Ordered By: Merry Pham on 03-24-2025 Ferritin [Mass/Vol] 680 ng/mL High 37-417 [facility] Serum or plasma iron saturat ion measurement (mass fraction)Ordered By: Merry Pham on 03-24-2025 Iron saturation [Mass fraction] 29.2 % 9-55 [facility] Comment on above: Previous reported re sult: 29.0 %Edited by: VIRIDIANA on 03/24/25:0756 AMENDED REPORT 03/24/25 0756 IRON SATURATION previously reported as: 29.0 % Spine Lumbar (Routine)on Spine Lumbar (Routine) [facility] Imaging Services [address] [place], [place] [id number] Spine Lumbar (Routine) MR#: [id number] Acct: [id number] Name: NANCY SY Rep #: [id number] : 1945 M 80 From: Abraham Marlow MD PCP: LOIS Resendiz Status: ADM IN Study: Spine Lumbar (Routine) Date of Exam: 03/24/25 Exam# [id number] Ordering Dr: Merry Pham MD PROCEDURE: SPINE [...] the right. L2-3: Mild, diffuse disc bulge. Hhqt-ja-nctmcfzo thickening of ligamentum flavum. Minimal facet hypertrophy. No central stenosis or exit foraminal narrowing. L3-4: Mild, diffuse disc bulge. Moderate thickening of ligamentum flavum. Minimal bilateral facet hypertrophy. Borderline narrowing of the exit foramina. Correlate with L3 radiculopathy. L4-5: Moderate, diffuse disc bulge. Severe thickening of ligamentum flavum. Bwwr-qe-nnlrrmpw facet hypertrophy. Central stenosis to 9 mm AP. Lhsws-apelatj-ucbu-l eft severe exit foraminal narrowing. Correlate with [...] L4/5 and L5/S1 as above. Reading Location: [id number] CC: OPEN CLAIMS REPRESENTATIVE-C Katherine Brand; Dr. Merry Pham MD Warehouse Logistics Manager: Signed Normal [facility] Spine Thoracic (Routine)on 0 03-24-2025 Spine Thoracic (Routine) [facility] Imaging Services [address] [place] [address] Spine Thoracic (Routine) MR#: [id number] Acct: [id number] Name: NANCY SY Rep #: [id number] : 1945 M 80 From: Abraham Marlow MD PCP: LOIS Resendiz Status: ADM IN Study: Spine Thoracic (Routine) Date of Exam: Exam# [id number] Ordering Dr: Merry Pham MD PROCEDURE: SPINE [...] Correlate with radiculopathy at T9. Reading Location: [id number] CC: LOIS Brand; Dr. Merry Pham MD Warehouse Logistics Manager: Signed Normal [facility] TSH DL <= 0.005 mIU/L QnOrde red By: Merry Pham on 03-24-2025 TSH Qn 0.640 uIU/mL 0.300-4.200 [facility] Thyroid Stim Hormone (TSH)on 03-24-2025 TSH 0.640 uIU/mL Normal 0.300-4.200 [facility] Comment on above: Performed By: #### L 499.0042 #### [facility] Laboratory [address] [place], [address] Total proteinOrdered By: Ludwig Pham on 03-24-2025 Protein [Mass/Vol] 5.6 g/dL Low 5.9-8.4 [facility] Triglycerides measurementOrd ered By: Merry Pham on 03-24-2025 Triglyceride [Mass/Vol] 45 mg/dL <199 [facility] Comment on above: The drugs N-Acetylcy steine and Metamizole may falsely depress this assay. Normal range: <150 mg/dLBorderline High: 150-199 mg/dLHigh: 200-499 mg/dLVery High: >500 mg/dL Vitamin B12on 03-24-2025 Cobalamin (Vitamin B12) [Mass/Vol] 1246 pg/mL High 180-914 [facility] Comment on above: Performed By: #### L 499.0042 #### [facility] [address] [facility] [place], [address] Vitamin B12 ser/plasOrdered By: Merry Pham on 03-24-2025 Cobalamin (Vitamin B12) [Mass/Vol] 1246 pg/mL High 180-914 [facility] 12 Lead EKGon 03-23-2025 12 Lead EKG [facility] Cardiovascular Services [address] [place] [address] 12 Lead EKG 03/23/25 1734 MR#: [id number] Acct: [id number] Name: NANCY SY Rep #: [id number] : 1945 80 From: Shady Loving MD Attending Dr: Dr. Katarina Fabian MD Status: AD M IN Ordering Dr: Marco Camacho DO Date: 03/23/25 Location: [facility] Sex: M C Admitted: 03/23/25 Test [...] normal ECG Confirmed by INDER GOODSON, FRANNY ([id number]), fan mail editor BEVERLEY ZAPATA ([id number]) on 03/25/2025 1:10:30 PM Referred By: Confirmed By: FRANNY LOVING MD 03/25/25 1310 Date Shady Loving MD CC: OPEN CLAIMS REPRESENTATIVE-C Katherine Brand; Dr. Katarina Fabian MD; Dr. Marco Camacho DO Signed Normal [facility] Absolute lymphocyte countOrd ered By: Marco Camacho on 03-23-2025 Lymphocytes Auto (Unsp spec) [#/Vol] 0.82 10*3/uL Low 0.83-4.51 [facility] Absolute neutrophil countOrd ered By: Marco Camacho on 03-23-2025 Neutrophils (Bld) [#/Vol] 6.0 10*3/uL 2.0-7.7 [facility] Anion gap in Serum or Plasma Ordered By: Marco Camacho on 03-23-2025 Anion gap [Moles/Vol] 10 mmol/L 5-15 [facility] Automated lymphocyte count a s percentage of total leukocytesOrdered By: Marco Camacho on 03-23-2025 Lymphocytes/100 WBC Auto (Unsp spec) 10.3 % Low 19-41 [facility] BUN/creatinine ratioOrdered By: Marco Camacho on 03-23-2025 Urea nitrogen/Creatinine [Mass ratio] 17.4 mg/mg 10-20 [facility] Basophil percentageOrdered B y: Marco Camacho on 03-23-2025 Basophils/100 WBC (Bld) 0.5 % 0-1 [facility] Bilirubin, totalOrdered By: Marco Camacho on 03-23-2025 Bilirubin [Mass/Vol] 0.29 mg/dL 0.00-1.30 [facility] Brain/Head without Contrasto n 03-23-2025 Brain/Head without Contrast [facility] Imaging Services [address] [place], [place] [address] Brain/Head without Contrast MR#: [id number] Acct: [id number] Name: NANCY SY Rep #: [id number] : 1945 M 80 From: Presley Delatorre MD PCP: Katherine Brand, OPEN CLAIMS REPRESENTATIVE-C Status: REG ER Study: Brain/Head without Contrast Date of Exam: 03/02 11/23 Exam# [id number] Ordering Dr: Marco Camacho DO PROCEDURE: BRAIN/HEAD [...] IMPRESSION: No acute intracranial abnormality. Reading Location: [facility] CC: LOIS Brand; Dr. Marco Camacho DO Warehouse Logistics Manager: Signed Normal [facility] CBC W/Diff, Automatedon 07-2 -2024 Absolute Lymph 0.82 X10 3/uL Low 0.83-4.51 [facility] Comment on above: Performed By: #### L 499.0042 #### [facility] [address] [facility] [place], [address] Absolute Neut 6.0 X10 3/uL Normal 2.0-7.7 [facility] Comment on above: Performed By: #### L 499.0042 #### [facility] [address] [facility] [place], [address] Basophils/100 WBC (Bld) 0.5 % Normal 0-1 [facility] Comment on above: Performed By: #### L 499.0042 #### [facility] [address] [facility] [place], [address] Eosinophils/100 WBC (Bld) 3.3 % Normal 0-5 [facility] Comment on above: Performed By: #### L 499.0042 #### [facility] [address] [place], [address] Erythrocyte distribution width (RBC) [Ratio] 13.5 % Normal 11.6-14.6 [facility] Comment on above: Performed By: #### L 499.0042 #### [facility] [address] [place], [address] Hematocrit (Bld) [Volume fraction] 37.2 % Low 40-54 [facility] Comment on above: Performed By: #### L 499.0042 #### [facility] [address] [place], [address] Hemoglobin (Bld) [Mass/Vol] 12.6 g/dL Low 13.0-16.5 [facility] Comment on above: Performed By: #### L 499.0042 #### [facility] [address] [place], [address] IG% 0.500 Normal 0.0-0.9 [facility] Comment on above: Result Comment: IG% - Immature Granulocytes (promyelocytes, myelocytes and metamyelocytes) > 1% indicates that a LEFT SHIFT is Present. Performed By: #### L 499.0042 #### [facility] [address] [place], [address] Lymphocytes/100 WBC (Bld) 10.3 % Low 19-41 [facility] Comment on above: Performed By: #### L 499.0042 #### [facility] [address] [place], [address] MCH (RBC) [Entitic mass] 32.1 pg High 27.0-32.0 [facility] Comment on above: Performed By: #### L 499.0042 #### [facility] [address] [place], [address] MCHC (RBC) [Mass/Vol] 33.9 g/dL Normal 32-36 [place] [facility] Comment on above: Performed By: #### L 499.0042 #### [facility] [address] [place], [address] MCV (RBC) [Entitic vol] 94.9 fL High 80-94 [facility] Comment on above: Performed By: #### L 499.0042 #### [facility] [address] [place], [address] Monocytes/100 WBC (Bld) 10.1 % High 0-10 [facility] Comment on above: Performed By: #### L 499.0042 #### [facility] [address] [place], [address] Neutrophils/100 WBC (Bld) 75.3 % High 47-70 [facility] Comment on above: Performed By: #### L 499.0042 #### [facility] [address] [place], [address] Nucleated RBC (Bld) [#/Vol] 0 10*3/uL Normal 0-5 [facility] Comment on above: Performed By: #### L 499.0042 #### [facility] [address] [place], [address] Platelet mean volume (Bld) [Entitic vol] 8.9 fL Normal 6.2-12.0 [facility] Comment on above: Performed By: #### L 499.0042 #### [facility] [address] [place], [address] Platelets (Bld) [#/Vol] 232 10*3/uL Normal 150-450 [facility] Comment on above: Performed By: #### L 499.0042 #### [facility] [address] [place], [address] RBC (Bld) [#/Vol] 3.92 10*6/uL Low 4.6-6.2 [facility] Comment on above: Performed By: #### L 499.0042 #### [facility] [address] [place], [address] RDW SD 47.0 fl High 35.1-43.9 [facility] Comment on above: Performed By: #### L 499.0042 #### [facility] [address] [place], [address] WBC (Bld) [#/Vol] 8.0 10*3/uL Normal 4.4-11.0 [facility] Comment on above: Performed By: #### L 499.0042 #### [facility] [address] [place], [address] Carbon dioxide, total [Moles /volume] in Central venous bloodOrdered By: Marco Camacho on 03-23-2025 CO2 [Moles/Vol] 28.5 mmol/L 21.0-32.0 [facility] Chest 1 View (Portable)on Chest 1 View (Portable) [facility] Imaging Services [address] [facility] [place], [place] [address] Chest 1 View (Portable) MR#: [id number] Acct: [id number] Name: NANCY SY Rep #: [id number] : 1945 M 80 From: Presley Delatorre MD PCP: LOIS Resendiz Status: REG ER Study: Chest 1 View (Portable) Date of Exam: 03/23/25 Exam# [id number] Ordering Dr: Marco Camacho DO PROCEDURE: CHEST [...] (Portable) IMPRESSION: No Acute Findings. Reading Location: [facility] CC: LOIS Brand; Dr. Marco Camacho, Warehouse Logistics Manager: Signed Normal [facility] Chloride assayOrdered By: Eric Camacho on 03-23-2025 Chloride [Moles/Vol] 105 mmol/L 98-108 [facility] Comprehensive Metabolic Prof ilon 03-23-2025 Albumin [Mass/Vol] 3.8 g/dL Normal 3.4-4.8 [facility] Comment on above: Performed By: #### L 499.0042 #### [facility] [address] [place], [address] Albumin/Globulin [Mass ratio] 1.5 {ratio} Normal 0.9-2.4 [facility] Comment on above: Performed By: #### L 499.0042 #### [facility] [address] [place], [address] ALK PHOS 112 U/L Normal 40-129 [facility] Comment on above: Performed By: #### L 499.0042 #### [facility] [address] [place], [address] ALT [Catalytic activity/Vol] 9 U/L Normal <=46 [facility] Comment on above: Performed By: #### L 499.0042 #### [facility] [address] [place], [address] AST [Catalytic activity/Vol] 16 U/L Normal <=37 [facility] Comment on above: Performed By: #### L 499.0042 #### [facility] [address] [place], [address] Bilirubin [Mass/Vol] 0.29 mg/dL Normal 0.00-1.30 [facility] Comment on above: Performed By: #### L 499.0042 #### [facility] [address] [place], [address] BUN/CRE 17.4 RATIO Normal 10-20 [facility] Comment on above: Performed By: #### L 499.0042 #### [facility] [address] [place], [address] Calcium [Mass/Vol] 9.2 mg/dL Normal 7.6-11.0 [facility] Comment on above: Performed By: #### L 499.0042 #### [facility] [address] [place], [address] Chloride [Moles/Vol] 105 mmol/L Normal 98-108 [facility] Comment on above: Performed By: #### L 499.0042 #### [facility] [address] [place], [address] CO2 [Moles/Vol] 28.5 mmol/L Normal 21.0-32.0 [facility] Comment on above: Performed By: #### L 499.0042 #### [facility] [address] [place], [address] Creatinine [Mass/Vol] 0.84 mg/dL Normal 0.70-1.20 [facility] Comment on above: Performed By: #### L 499.0042 #### [facility] [address] [place], [address] ECRCL 71.31 ml/min Normal 50-250 [facility] Comment on above: Performed By: #### L 499.0042 #### [facility] [address] [place], [address] GAP 10 Normal 5-15 [facility] Comment on above: Performed By: #### L 499.0042 #### [facility] [address] [place], [address] GFR/1.73 sq M.predicted among non-blacks MDRD (S/P/Bld) [Vol rate/Area] 89 mL/min/{1.73_m2} Normal >60 [facility] Comment on above: Result Comment: mL/m in/1.73m2 CKD-EPI Creatinine Equation (2020) Performed By: #### L 499.0042 #### [facility] [address] [place], [address] Globulin (S) [Mass/Vol] 2.4 g/dL Normal 2.2-4.2 [facility] Comment on above: Performed By: #### L 499.0042 #### [facility] [address] [place], [address] Glucose [Mass/Vol] 95 mg/dL Normal 70-99 [facility] Comment on above: Performed By: #### L 499.0042 #### [facility] [address] [place], [address] Potassium [Moles/Vol] 3.8 mmol/L Normal 3.3-5.1 [facility] Comment on above: Performed By: #### L 499.0042 #### [facility] [address] [place], [address] Sodium [Moles/Vol] 144 mmol/L Normal 133-145 [facility] Comment on above: Performed By: #### L 499.0042 #### [facility] [address] [place], [address] T PROT 6.2 g/dL Normal 5.9-8.4 [facility] Comment on above: Performed By: #### L 499.0042 #### [facility] [address] [place], [address] Urea nitrogen [Mass/Vol] 15 mg/dL Normal 4-19 [facility] Comment on above: Performed By: #### L 499.0042 #### [facility] [address] [place], [address] Echo Completeon 07-23-2025 Echo Complete [facility] Cardiovascular Services [address] [facility] [place] [address] Echo Complete 03/24/25 0814 MR#: [id number] Acct: [id number] Name: NANCY SY Rep #: [id number] : 1945 80 From: Shady Loving MD Attending Dr: Dr. Katarina Fabian MD Status: AD M IN Ordering Dr: Merry Pham MD Date: 03/23/25 Location: [facility] Sex: M C Admitted: 03/23/25 Reason [...] 03/24/25 1132 Date Shady Loving MD CC: OPEN CLAIMS REPRESENTATIVE-C Katherine Brand; Dr. Merry Pham MD; Dr. Katarina Fabian MD Date Dictated: 03/24/25 0814 Date Transcribed: 03/24/25 113 Warehouse Logistics Manager: Signed Normal [facility] Emergency Department Summary on 03-23-2025 Emergency Department Summary [facility] Medical Records Department [address] [place] [address] Emergency Department Summary 03/23/25 MR#: [id number] Acct: [id number] Name: NANCY SY Rep #: [id number] : 1945 80 From: Marco Camacho DO PCP: LOIS Resendiz Status:ADM IN Location: [address] History of Present Illness Chief Complaint: Edema [facility] Medical History CKD (chronic kidney disease), stage [...] of compre (more content not included)... Normal [facility] Eosinophil percentageOrdered By: Marco Camacho on 03-23-2025 Eosinophils/100 WBC (Bld) 3.3 % 0-5 [facility] Erythrocyte distribution wid th ratioOrdered By: Marco Camacho on 03-23-2025 Erythrocyte distribution width (RBC) [Ratio] 13.5 % 11.6-14.6 [facility] Erythrocyte distribution wid th standard deviationOrdered By: Marco Camacho on 03-23-2025 Erythrocyte distribution width (RBC) [Ratio] 47.0 fl High 35.1-43.9 [facility] Glomerular filtration rate ( GFR) estimation/1.73 sq m using serum, plasma, or whole bOrdered By: Marco Camacho on 03-23-2025 GFR/1.73 sq M.predicted among non-blacks MDRD (S/P/Bld) [Vol rate/Area] 89 mL/min/{1.73_m2} >60 [facility] Comment on above: mL/min/1.73m2 CKD-EP I Creatinine Equation (2020) H AND P Exam - Hospitaliston 03-23-2025 H&P Exam - Hospitalist [facility] Medical Records Department [address] [facility] [facility] [place] [address] H P Exam - Hospitalist 03/23/252008 MR#: [id number] Acct: [id number] Name: NANCY SY Rep #: [id number] : 1945 80 From: Merry Pham MD PCP: LOIS Resendiz Status:ADM IN [facility] General Date of Admission: 03/23/25 Date of Service: 03/23/25 Chief Complaint: Acute on Chronic back pain, increased BL LE edema, chronic debility HPI Narrative The patient is a 80 y/o M w/ PMHx: Possible Chronic macrocytic anemia, CKD stage II per GFR trending, OA, Allergic rhinitis, Former tobacco use who presents to [facility] ED on 03/23/2025 with 2 [...] fracture, chest x-ray with no acute findings. [facility] Medical History CKD (chronic kidney disease), stage [...] sore throat. (more content not included)... Normal [facility] Hematocrit Auto (Bld) [Volum e fraction]Ordered By: Marco Camacho on 03-23-2025 Hematocrit (Bld) [Volume fraction] 37.2 % Low 40-54 [facility] Hemoglobin measurementOrdere d By: Marco Camacho on 03-23-2025 Hemoglobin (Bld) [Mass/Vol] 12.6 g/dL Low 13.0-16.5 [facility] Immature granulocytes/100 WB C Auto (Bld)Ordered By: Marco Camacho on 03-23-2025 Immature granulocytes/100 WBC (Bld) 0.500 % 0.0-0.9 [facility] Comment on above: IG% - Immature Granu locytes (promyelocytes, myelocytes and metamyelocytes) > 1% indicates that a LEFT SHIFT is Present. L501.4021on 03-23-2025 Trop T High Sen 33 ng/L High <=22 [facility] Comment on above: Performed By: #### L 500.2500, L100.0100 #### [facility] [address] [place], [address] L503.7505on 03-23-2025 Natriuretic peptide B (Bld) [Mass/Vol] 417 pg/mL Normal <=1800 [facility] Comment on above: Result Comment: Hear t Failure Unlikely: < 300 pg/mL Heart Failure Likely < 50 Years: > 450 pg/mL 50-75 Years: > 900 pg/mL >75 Years: > 1800 pg/mL Performed By: #### L 500.2500, L100.0100 #### [facility] [address] [place], [address] Laboratory - Chemistry and C hemistry - challengeOrdered By: Marco Camacho on 03-23-2025 AST [Catalytic activity/Vol] 16 U/L <38 [facility] Lipaseon 03-23-2025 Lipase [Catalytic activity/Vol] 21 U/L Normal 13-75 [facility] Comment on above: Result Comment: Plea note: LIPASE revised reference range effective 22. New Lipase methodology. Expected to produce lower values than the previous assay method. NEW Reference Range: 13 - 75 U/L Performed By: #### L 500.2500, L100.0100 #### [facility] [address] [place], [address] Lipase measurementOrdered By : Marco Camacho on 03-23-2025 Lipase [Catalytic activity/Vol] 21 U/L 13-75 [facility] Comment on above: Please note:LIPASE r evised reference range effective 22. New Lipase methodology. Expected to produce lower values than the previous assay method. NEW Reference Range: 13 - 75 U/L MCV (mean corpuscular volume ) determinationOrdered By: Marco Camacho on 03-23-2025 MCV (RBC) [Entitic vol] 94.9 fL High 80-94 [facility] Magnesiumon 03-23-2025 Magnesium [Mass/Vol] 1.6 mg/dL Normal 1.5-2.2 [facility] Comment on above: Order Comment: Comme nts: may add to ED labs Performed By: #### L 500.2500, L100.0100 #### [facility] [address] [place], [address] Magnesium measurement (mass/ volume)Ordered By: Merry Pham on 03-23-2025 Magnesium (Unsp spec) [Mass/Vol] 1.6 mg/dL 1.5-2.2 [facility] Mean corpuscular hemoglobin (MCH) determinationOrdered By: Marco Camacho on 03-23-2025 MCH (RBC) [Entitic mass] 32.1 pg High 27.0-32.0 [facility] Mean corpuscular hemoglobin concentration (MCHC) determinationOrdered By: Marco Camacho on 03-23-2025 MCHC (RBC) [Mass/Vol] 33.9 g/dL 32-36 [facility] Mean platelet volume determi nationOrdered By: Marco Camacho on 03-23-2025 Platelet mean volume (Bld) [Entitic vol] 8.9 fL 6.2-12.0 [facility] Monocyte percentageOrdered B y: Marco Camacho on 03-23-2025 Monocytes/100 WBC (Bld) 10.1 % High 0-10 [facility] Natriuretic peptide.B prohor jem N-Terminal [Mass/volume] in Serum or PlasmaOrdered By: Marco Camacho on 03-23-2025 Natriuretic peptide.B prohormone N-Terminal [Mass/Vol] 417 pg/mL <1800 [facility] Comment on above: Heart Failure Unlike ly: < 300 pg/mLHeart Failure Likely< 50 Years: > 450 pg/mL50-75 Years: > 900 pg/mL>75 Years: > 1800 pg/mL Neutrophil percentageOrdered By: Marco Camacho on 03-23-2025 Neutrophils/100 WBC (Bld) 75.3 % High 47-70 [facility] Nucleated red blood cell per centageOrdered By: Marco Camacho on 03-23-2025 Nucleated RBC/100 WBC (Bld) [Ratio] 0 % 0-5 [facility] Platelet countOrdered By: Eric Camacho on 03-23-2025 Platelets (Bld) [#/Vol] 232 10*3/uL 150-450 [facility] Potassium measurement (mass/ volume)Ordered By: Marco Camacho on 03-23-2025 Potassium (Unsp spec) [Mass/Vol] 3.8 mmol/L 3.3-5.1 [facility] RBC Auto (Bld) [#/Vol]Ordere d By: Marco Camacho on 03-23-2025 RBC (Bld) [#/Vol] 3.92 10*6/uL Low 4.6-6.2 [facility] Serum creatinine measurement (mass/volume)Ordered By: Marco Camacho on 03-23-2025 Creatinine [Mass/Vol] 0.84 mg/dL 0.70-1.20 [facility] Serum globulin measurementOr dered By: Marco Camacho on 03-23-2025 Globulin (S) [Mass/Vol] 2.4 g/dL 2.2-4.2 [facility] Serum glucose measurement (m ass/volume)Ordered By: Marco Camacho on 03-23-2025 Glucose [Mass/Vol] 95 mg/dL 70-99 [facility] Serum or plasma alanine gann otransferase (ALT) measurementOrdered By: Marco Camacho on 03-23-2025 ALT [Catalytic activity/Vol] 9 U/L <47 [facility] Serum or plasma albumin jovita urement (mass/volume)Ordered By: Marco Camacho on 03-23-2025 Albumin [Mass/Vol] 3.8 g/dL 3.4-4.8 [facility] Serum or plasma albumin/glob ulin mass ratioOrdered By: Marco Camacho on 03-23-2025 Albumin/Globulin [Mass ratio] 1.5 {ratio} 0.9-2.4 [facility] Serum or plasma alkaline vincent sphatase measurementOrdered By: Marco Camacho on 03-23-2025 ALP [Catalytic activity/Vol] 112 U/L 40-129 [facility] Serum or plasma calcium jovita urement (mass/volume)Ordered By: Marco Camacho on 03-23-2025 Calcium [Mass/Vol] 9.2 mg/dL 7.6-11.0 [facility] Serum or plasma urea nitroge n measurement (mass/volume)Ordered By: Marco Camacho on 03-23-2025 Urea nitrogen [Mass/Vol] 15 mg/dL 4-19 [facility] Sodium levelOrdered By: Tianna Camacho on 03-23-2025 Sodium [Moles/Vol] 144 mmol/L 133-145 [facility] Spine Lumbar without Contras ton 03-23-2025 Spine Lumbar without Contrast [facility] [address] [place], [place] [id number] Spine Lumbar without Contrast MR#: [id number] Acct: [id number] Name: NANCY SY Rep #: [id number] : 1945 M 80 From: Izaiah Baptiste MD PCP: LOIS Resendiz Status: REG ER Study: Spine Lumbar without Contrast Date of Exam: Exam# [id number] Ordering Dr: Marco Camacho DO EXAM: CT [...] evaluation with MRI is recommended. Reading Location: [facility] CC: LOIS Brand; Dr. Marco Camacho DO Warehouse Logistics Manager: Signed Normal [facility] Spine Thoracic without Contr ason 03-23-2025 Spine Thoracic without Contras [facility] [address] [place], [place] [address] Spine Thoracic without Contras MR#: [id number] Acct: [id number] Name: NANCY SY Rep #: [id number] : 1945 M 80 From: Izaiah Baptiste MD PCP: LOIS Resendiz Status: REG ER Study: Spine Thoracic without Contras Date of Exam: 0 03/23/25 Exam# [id number] Ordering Dr: Marco Camacho DO EXAM: CT [...] fracture can not be excluded. Reading Location: [facility] CC: OPEN CLAIMS REPRESENTATIVE-C Katherine Brand; Dr. Marco Camacho DO Warehouse Logistics Manager: Signed Normal [facility] Total proteinOrdered By: Mary Kay Camacho on 03-23-2025 Protein [Mass/Vol] 6.2 g/dL 5.9-8.4 [facility] Troponin T HS 2 HRon 025 Trop T High Sen 27 ng/L High <=22 [facility] Comment on above: Performed By: #### L 499.0042 #### [facility] [address] [place], [place], [id number] Troponin T HS 4 HRon 025 Trop T High Sen 28 ng/L High <=22 [facility] Comment on above: Performed By: #### L 500.2500, L100.0100 #### [facility] [address] [facility]. [place], [place], [address] Troponin T.cardiac [Mass/vol ume] in Serum or Plasma by High sensitivity methodOrdered By: Marco Camacho on 03-23-2025 Troponin T.cardiac High sensitivity method [Mass/Vol] 28 ng/L High <22 [facility] Troponin T.cardiac High sensitivity method [Mass/Vol] 27 ng/L High <22 [facility] Troponin T.cardiac High sensitivity method [Mass/Vol] 33 ng/L High <22 [facility] Venous Duplex Imag/Efrain Extre mon 03-23-2025 Venous Duplex Imag/Efrain Extrem [facility] [address] [place] [address] Venous Duplex Imag/Efrain Extrem MR#: [id number] Acct: [id number] Name: NANCY SY Rep #: [id number] : 1945 M 80 From: Presley Delatorre MD PCP: LOIS Resendiz Status: REG ER Study: Venous Duplex Imag/Efrain Extrem Date of Exam: Exam# [id number] Ordering Dr: Marco Camacho DO PROCEDURE: VENOUS DUPLEX IMAG/EFRAIN EXTREM 03/23/2025 REASON FOR EXAM: M 80 y/o TECHNIQUE: VENOUS DUPLEX IMAG/EFRAIN EXTREM COMPARISON: None. FINDINGS: Normal compressibility and color Doppler flow of the bilateral lower extremities. Edema is visualized in the bilateral calves. US/Venous Duplex Imag/Efrain Extrem IMPRESSION: No DVT. Reading Location: [id number] CC: OPEN CLAIMS REPRESENTATIVE-C Katherine Brand; Dr. Marco Camacho DO Warehouse Logistics Manager: Signed Normal [facility] White blood cell (WBC) count Ordered By: Marco Camacho on 03-23-2025 WBC (Bld) [#/Vol] 8.0 10*3/uL 4.4-11.0 [facility] .GFRon 03-10-2025 Estimated Glomerular Filtration Rate 90 ml/min/1.73sqm Normal [facility] Comment on above: Result Comment: Stages of [...] results. Performed By: #### V IDH #### [address] [address] BMPon 03-10-2025 BUN/Creatinine Ratio 26 ratio Normal 7-27 [facility] Comment on above: Order Comment: stat please Performed By: #### V IDH #### [address] [address] Calcium [Mass/Vol] 8.6 mg/dL Normal 8.4-10.[address] [facility] Comment on above: Order Comment: stat please Performed By: #### V IDH #### [address] [address] Chloride [Moles/Vol] 103 mmol/L Normal 98-107 [facility] Comment on above: Order Comment: stat please Performed By: #### V IDH #### [address] [address] CO2 [Moles/Vol] 33 mmol/L High 23-31 [facility] Comment on above: Order Comment: stat please Performed By: #### V IDH #### [address] [address] Creatinine [Mass/Vol] 0.81 mg/dL Normal 0.67-1.17 [facility] Comment on above: Order Comment: stat please Performed By: #### V IDH #### [address] [address] Electrolyte Balance 4.0 mEq/L Normal 4.0-15.0 [facility] Comment on above: Order Comment: stat please Performed By: #### V IDH #### [address] [address] Glucose [Mass/Vol] 109 mg/dL Normal 83-[address] [facility] Comment on above: Order Comment: stat please Performed By: #### V IDH #### [address] [address] Potassium [Moles/Vol] 3.2 mmol/L Low 3.5-5.1 [facility] Comment on above: Order Comment: stat please Performed By: #### V IDH #### [place] [id number] Sodium [Moles/Vol] 140 mmol/L Normal 136-[address] [facility] Comment on above: Order Comment: stat please Performed By: #### V IDH #### [address] [address] Urea nitrogen [Mass/Vol] 21 mg/dL High 7-18 [facility] Comment on above: Order Comment: stat please Performed By: #### V IDH #### [address] [address] LABORATORYOrdered By: SYSTEM SYSTEM on 03-10-2025 Calcium [...] Basophil, Absolute 0.1 10 3/mcL Normal 0.0-0.3 [facility] Comment on above: Performed By: #### F ERR, BMP, ANEU, MORPH, TSH, ADIFF, CBC, GFR, FE, FT4 ####[place] [address] [place], [place] [address] Basophils/100 WBC (Bld) 0.5 % Normal 0.0-2.5 [facility] Comment on above: Performed By: #### F ERR, BMP, ANEU, MORPH, TSH, ADIFF, CBC, GFR, FE, FT4 ####[facility] [place], [place] [address] Eosinophil, Absolute 0.2 10 3/mcL Normal 0.0-0.7 [facility] Comment on above: Performed By: #### F ERR, BMP, ANEU, MORPH, TSH, ADIFF, CBC, GFR, FE, FT4 ####[facility] [place], [place] [address] Eosinophils/100 WBC (Bld) 2.5 % Normal 0.0-6.0 [facility] Comment on above: Performed By: #### F ERR, BMP, ANEU, MORPH, TSH, ADIFF, CBC, GFR, FE, FT4 ####[place] [address] [place], [place] [address] Lymphocyte, Absolute 0.8 10 3/mcL Low 0.9-4.3 [facility] Comment on above: Performed By: #### F ERR, BMP, ANEU, MORPH, TSH, ADIFF, CBC, GFR, FE, FT4 ####[address] [address] Lymphocytes/100 WBC (Bld) 8.3 % Low 20.0-40.0 [facility] Comment on above: Performed By: #### F ERR, BMP, ANEU, MORPH, TSH, ADIFF, CBC, GFR, FE, FT4 ####[place] [address] [place], [place] [address] Monocyte, Absolute 0.6 10 3/mcL Normal 0.1-1.4 [facility] Comment on above: Performed By: #### F ERR, BMP, ANEU, MORPH, TSH, ADIFF, CBC, GFR, FE, FT4 ####[address] [address] Monocytes/100 WBC (Bld) 6.4 % Normal 2.0-13.0 [facility] Comment on above: Performed By: #### F ERR, BMP, ANEU, MORPH, TSH, ADIFF, CBC, GFR, FE, FT4 ####[address] [address] Neutrophils/100 WBC (Bld) 82.3 % High 50.0-75.0 [facility] Comment on above: Performed By: #### F ERR, BMP, ANEU, MORPH, TSH, ADIFF, CBC, GFR, FE, FT4 ####[address] [address] .GFRon 03-09-2025 Estimated Glomerular Filtration Rate 90 ml/min/1.73sqm Normal [facility] Comment on above: Result Comment: Stages of [...] MORPH, TSH, ADIFF, CBC, GFR, FE, FT4 ####[place] [address] [place], [place] [address] .Morphon 03-09-2025 Platelet Estimate Normal Normal [facility] Comment on above: Performed By: #### F ERR, BMP, ANEU, MORPH, TSH, ADIFF, CBC, GFR, FE, FT4 ####[place] [address] [place], [place] [address] .NEUABSon 03-09-2025 Neutrophil, Absolute 7.9 10 3/mcL Normal 2.3-8.1 [facility] Comment on above: Performed By: #### F ERR, BMP, ANEU, MORPH, TSH, ADIFF, CBC, GFR, FE, FT4 ####[place] [address] [place], [place] [address] BMPon 03-09-2025 BUN/Creatinine Ratio 25 ratio Normal 7-27 [facility] Comment on above: Performed By: #### F ERR, BMP, ANEU, MORPH, TSH, ADIFF, CBC, GFR, FE, FT4 ####[place] [address] [place], [place] [address] Calcium [Mass/Vol] 9.1 mg/dL Normal 8.4-10.[address] [facility] Comment on above: Performed By: #### F ERR, BMP, ANEU, MORPH, TSH, ADIFF, CBC, GFR, FE, FT4 ####[place] [address] [place], [place] [address] Chloride [Moles/Vol] 108 mmol/L High 98-107 [facility] Comment on above: Performed By: #### F ERR, BMP, ANEU, MORPH, TSH, ADIFF, CBC, GFR, FE, FT4 ####[facility] [place], [place] [address] CO2 [Moles/Vol] 33 mmol/L High 23-31 [facility] Comment on above: Performed By: #### F ERR, BMP, ANEU, MORPH, TSH, ADIFF, CBC, GFR, FE, FT4 ####[place] [address] [place], [place] [address] Creatinine [Mass/Vol] 0.80 mg/dL Normal 0.67-1.17 [facility] Comment on above: Performed By: #### F ERR, BMP, ANEU, MORPH, TSH, ADIFF, CBC, GFR, FE, FT4 ####[address] [address] Electrolyte Balance 8.0 mEq/L Normal 4.0-15.0 [facility] Comment on above: Performed By: #### F ERR, BMP, ANEU, MORPH, TSH, ADIFF, CBC, GFR, FE, FT4 ####[place] [address] [place], [place] [address] Glucose [Mass/Vol] 112 mg/dL High 83-[address] [facility] Comment on above: Performed By: #### F ERR, BMP, ANEU, MORPH, TSH, ADIFF, CBC, GFR, FE, FT4 ####[place] [address] [place], [place] [address] Potassium [Moles/Vol] 3.2 mmol/L Low 3.5-5.1 [facility] Comment on above: Performed By: #### F ERR, BMP, ANEU, MORPH, TSH, ADIFF, CBC, GFR, FE, FT4 ####[place] [address] [place], [place] [address] Sodium [Moles/Vol] 149 mmol/L High 136-[address] [facility] Comment on above: Performed By: #### F ERR, BMP, ANEU, MORPH, TSH, ADIFF, CBC, GFR, FE, FT4 ####[address] [address] Urea nitrogen [Mass/Vol] 20 mg/dL High 7-18 [facility] Comment on above: Performed By: #### F ERR, BMP, ANEU, MORPH, TSH, ADIFF, CBC, GFR, FE, FT4 ####[place] [address] CBCon 03-09-2025 Erythrocyte distribution width (RBC) [Ratio] 14.2 % Normal 11.5-15.5 [facility] Comment on above: Performed By: #### F ERR, BMP, ANEU, MORPH, TSH, ADIFF, CBC, GFR, FE, FT4 ####[place] [address] Hematocrit (Bld) [Volume fraction] 40.6 % Normal 40.0-52.0 [facility] Comment on above: Performed By: #### F ERR, BMP, ANEU, MORPH, TSH, ADIFF, CBC, GFR, FE, FT4 ####[address] [address] Hgb 13.8 G/dL Normal 13.0-17.5 [facility] Comment on above: Performed By: #### F ERR, BMP, ANEU, MORPH, TSH, ADIFF, CBC, GFR, FE, FT4 ####[place] [address] MCH (RBC) [Entitic mass] 31.9 pg Normal 27.0-33.0 [facility] Comment on above: Performed By: #### F ERR, BMP, ANEU, MORPH, TSH, ADIFF, CBC, GFR, FE, FT4 ####[place] [id number] MCHC 34.0 G/dL Normal 32.0-36.0 [facility] Comment on above: Performed By: #### F ERR, BMP, ANEU, MORPH, TSH, ADIFF, CBC, GFR, FE, FT4 ####[facility] [place], [place] [address] MCV (RBC) [Entitic vol] 93.9 fL Normal 81.0-100.0 [facility] Comment on above: Performed By: #### F ERR, BMP, ANEU, MORPH, TSH, ADIFF, CBC, GFR, FE, FT4 ####[id number] [place], [place] [address] Platelet 281 10 3/mcL Normal 150-450 [facility] Comment on above: Performed By: #### F ERR, BMP, ANEU, MORPH, TSH, ADIFF, CBC, GFR, FE, FT4 ####[place] [address] [place], [place] [address] Platelet mean volume (Bld) [Entitic vol] 7.1 fL Normal 6.4-10.5 [facility] Comment on above: Performed By: #### F ERR, BMP, ANEU, MORPH, TSH, ADIFF, CBC, GFR, FE, FT4 ####[place] [address] [place], [place] [address] RBC 4.33 10 6/mcL Low 4.50-6.00 [facility] Comment on above: Performed By: #### F ERR, BMP, ANEU, MORPH, TSH, ADIFF, CBC, GFR, FE, FT4 ####[place] [address] [place], [place] [address] WBC 9.7 10 3/mcL Normal 4.5-10.8 [facility] Comment on above: Performed By: #### F ERR, BMP, ANEU, MORPH, TSH, ADIFF, CBC, GFR, FE, FT4 ####[facility] [place], [place] [address] FEon 03-09-2025 Iron [Mass/Vol] 83 ug/dL Normal 65-175 [facility] Comment on above: Performed By: #### F ERR, BMP, ANEU, MORPH, TSH, ADIFF, CBC, GFR, FE, FT4 ####[address] [place], [place] [address] Saturnino 03-09-2025 Ferritin [Mass/Vol] 731.0 ng/mL High 26.0-388.0 [facility] Comment on above: Performed By: #### F ERR, BMP, ANEU, MORPH, TSH, ADIFF, CBC, GFR, FE, FT4 ####[address] [place], [place] [address] FT4on 03-09-2025 Free T4 [Mass/Vol] 1.12 ng/dL Normal 0.76-1.[address] [facility] Comment on above: Performed By: #### F ERR, BMP, ANEU, MORPH, TSH, ADIFF, CBC, GFR, FE, FT4 ####[id number] [place], [place] [address] LABORATORYOrdered By: SYSTEM SYSTEM on 03-09-2025 Basophils [...] 03-09-2025 TSH Qn 1.32 m[IU]/L Normal 0.36-3.74 [facility] Comment on above: Performed By: #### F ERR, BMP, ANEU, MORPH, TSH, ADIFF, CBC, GFR, FE, FT4 ####[place] [address] [place], [place] [address] MYCOon 02-26-2025 Mycoplasma IgG Negative Normal [facility] Comment on above: Result Comment: INTE RPRETATION OF MYCOPLASMA IgG BY EIA: Negative: No detectable M. pneumoniae IgG antibody. Positive: Mycoplasma pneumoniae IgG antibody Detected. Equivocal: Equivocal for IgG antibodies to Mycoplasma pneumoniae. Suggest repeat testing in 10-14 days. Performed By: #### V IDH #### [facility] [address] [place], [place] [address] MRSAPCRon 02-24-2025 MRSA (PCR) Not detected Normal Not Detected [facility] Comment on above: Order Comment: 2024 16:17:44 EDT @AO Notified SAMANTHA Dowell of unlabeled specimen and recollect. [facility] Result Comment: Note s [id number] Performed By: #### M RSAPCR, RESCVID #### [address] [address] MRSA PCR Int See Below Normal [facility] Comment on above: Order Comment: 2024 16:17:44 EDT @AO Notified SAMANTHA Dowell of unlabeled specimen and recollect. [facility] Result Comment: Clinical Interpretation: MRSA [...] Performed By: #### M RSAPCR, RESCVID #### [address] [address] .Auto Diffon 02-23-2025 Basophil, Absolute 0.1 10 3/mcL Normal 0.0-0.3 [facility] Comment on above: Performed By: #### A DIFF, GFR, CBC, CMP, MG, ANEU #### [address] [address] Lymphocyte, Absolute 0.7 10 3/mcL Low 0.9-4.3 [facility] Comment on above: Performed By: #### A DIFF, GFR, CBC, CMP, MG, ANEU #### [address] [address] Monocyte, Absolute 1.0 10 3/mcL Normal 0.1-1.4 [facility] Comment on above: Performed By: #### A DIFF, GFR, CBC, CMP, MG, ANEU #### [address] [address] .Auto DiffOrdered By: SYSTEM SYSTEM on 02-23-2025 Basophils/100 WBC (Bld) 0.6 % Normal 0.0-2.5 [facility] Comment on above: Performed By: #### A DIFF, GFR, CBC, CMP, MG, ANEU #### [address] [address] Eosinophil, Absolute 0.1 103/mcL Normal 0.0-0.7 [facility] Comment on above: Performed By: #### A DIFF, GFR, CBC, CMP, MG, ANEU #### [address] [address] Eosinophils/100 WBC (Bld) 1.1 % Normal 0.0-6.0 [facility] Comment on above: Performed By: #### A DIFF, GFR, CBC, CMP, MG, ANEU #### [address] [address] Lymphocytes/100 WBC (Bld) 6.9 % Low 20.0-40.0 [facility] Comment on above: Performed By: #### A DIFF, GFR, CBC, CMP, MG, ANEU #### [address] [address] Monocytes/100 WBC (Bld) 9.4 % Normal 2.0-13.0 [facility] Comment on above: Performed By: #### A DIFF, GFR, CBC, CMP, MG, ANEU #### [address] [address] Neutrophils/100 WBC (Bld) 82.0 % High 50.0-75.0 [facility] Comment on above: Performed By: #### A DIFF, GFR, CBC, CMP, MG, ANEU #### [address] [address] .GFRon 02-23-2025 Estimated Glomerular Filtration Rate 95 ml/min/1.73sqm Normal [facility] Comment on above: Result Comment: Stages of [...] Performed By: #### M RSAPCR, RESCVID #### [address] [address] .NEUABSon 02-23-2025 Neutrophil, Absolute 8.8 10 3/mcL High 2.3-8.1 [facility] Comment on above: Performed By: #### M RSAPCR, RESCVID #### [facility] [address] [place] [address] CBCon 02-23-2025 Hgb 12.9 G/dL Low 13.0-17.5 [facility] Comment on above: Performed By: #### A DIFF, GFR, CBC, CMP, MG, ANEU #### [address] [address] Platelet 204 10 3/mcL Normal 150-450 [facility] Comment on above: Performed By: #### A DIFF, GFR, CBC, CMP, MG, ANEU #### [address] [address] RBC 3.96 10 6/mcL Low 4.50-6.00 [facility] Comment on above: Performed By: #### A DIFF, GFR, CBC, CMP, MG, ANEU #### [address] [address] WBC 10.8 10 3/mcL Normal 4.5-10.8 [facility] Comment on above: Performed By: #### A DIFF, GFR, CBC, CMP, MG, ANEU #### [address] [address] CBCOrdered By: SYSTEM SYSTEM on 02-23-2025 Erythrocyte distribution width (RBC) [Ratio] 14.4 % Normal 11.5-15.5 [facility] Comment on above: Performed By: #### A DIFF, GFR, CBC, CMP, MG, ANEU #### [address] [address] Hematocrit (Bld) [Volume fraction] 37.0 % Low 40.0-52.0 [facility] Comment on above: Performed By: #### A DIFF, GFR, CBC, CMP, MG, ANEU #### [address] [address] MCH (RBC) [Entitic mass] 32.5 pg Normal 27.0-33.0 [facility] Comment on above: Performed By: #### A DIFF, GFR, CBC, CMP, MG, ANEU #### [address] [address] MCHC 34.7 G/dL Normal 32.0-36.0 [facility] Comment on above: Performed By: #### A DIFF, GFR, CBC, CMP, MG, ANEU #### [address] [address] MCV (RBC) [Entitic vol] 93.5 fL Normal 81.0-100.0 [facility] Comment on above: Performed By: #### A DIFF, GFR, CBC, CMP, MG, ANEU #### [address] [address] Platelet mean volume (Bld) [Entitic vol] 6.8 fL Normal 6.4-10.5 [facility] Comment on above: Performed By: #### A DIFF, GFR, CBC, CMP, MG, ANEU #### [address] [address] CMPon 02-23-2025 Albumin Level 3.2 G/dL Low 3.4-4.8 [facility] Comment on above: Performed By: #### M RSAPCR, RESCVID #### [address] [address] Albumin/Globulin [Mass ratio] 1.0 {ratio} Low 1.1-2.5 [facility] Comment on above: Performed By: #### M RSAPCR, RESCVID #### [address] [address] ALP [Catalytic activity/Vol] 67 U/L Normal 40-135 [facility] Comment on above: Performed By: #### M RSAPCR, RESCVID #### [address] [address] ALT [Catalytic activity/Vol] 15 U/L Low 16-63 [facility] Comment on above: Performed By: #### M RSAPCR, RESCVID #### [address] [address] AST [Catalytic activity/Vol] 15 U/L Normal 10-40 [facility] Comment on above: Performed By: #### M RSAPCR, RESCVID #### [address] [address] Bili Total 0.7 mg/dL Normal 0.2-1.0 [facility] Comment on above: Result Comment: Use of this assay is not recommended for patients undergoing treatment with eltrombopag due to the potential for falsely elevated results. Performed By: #### M RSAPCR, RESCVID #### [address] [address] BUN/Creatinine Ratio 37 ratio High 7-27 [facility] Comment on above: Performed By: #### M RSAPCR, RESCVID #### [address] [address] Calcium [Mass/Vol] 8.0 mg/dL Low 8.4-10.[address] [facility] Comment on above: Performed By: #### M RSAPCR, RESCVID #### [address] [address] Chloride [Moles/Vol] 109 mmol/L High 98-107 [facility] Comment on above: Performed By: #### M RSAPCR, RESCVID #### [address] [address] CO2 [Moles/Vol] 27 mmol/L Normal 23-31 [facility] Comment on above: Performed By: #### M RSAPCR, RESCVID #### [address] [address] Creatinine [Mass/Vol] 0.67 mg/dL Normal 0.67-1.17 [facility] Comment on above: Performed By: #### M RSAPCR, RESCVID #### [address] [address] Electrolyte Balance 8.0 mEq/L Normal 4.0-15.0 [facility] Comment on above: Performed By: #### M RSAPCR, RESCVID #### [address] [address] Globulin 3.2 G/dL Normal 2.7-4.4 [facility] Comment on above: Performed By: #### M RSAPCR, RESCVID #### [address] [address] Glucose [Mass/Vol] 107 mg/dL Normal 83-[address] [facility] Comment on above: Performed By: #### M RSAPCR, RESCVID #### [address] [address] Potassium [Moles/Vol] 3.4 mmol/L Low 3.5-5.1 [facility] Comment on above: Performed By: #### M RSAPCR, RESCVID #### [address] [address] Sodium [Moles/Vol] 144 mmol/L Normal 136-[address] [facility] Comment on above: Performed By: #### M RSAPCR, RESCVID #### [address] [address] Total Protein 6.4 G/dL Normal 6.4-8.2 [facility] Comment on above: Performed By: #### M RSAPCR, RESCVID #### [address] [address] Urea nitrogen [Mass/Vol] 25 mg/dL High 7-18 [facility] Comment on above: Performed By: #### M RSAPCR, RESCVID #### [address] [address] [address] ANGIOGRAPHY CHEST W/CONTR Diana 02-23-2025 CT [...] 4:22:10 PM Ordering Provider: OSMEL BURRELL Normal [facility] LABORATORYOrdered By: Rosa Zuniga on 02-23-2025 MRSA (PCR) Not Detected 1 (02/23/25 4:33 PM) Normal Not Detected [facility] Comment on above: Result Comment: Note s [id number] MRSA PCR Int See Below 2 *NA* [...] (S) Negative 11 (02/23/25 5:52 AM) Normal [facility] Comment on above: Interpretive Data: I NTERPRETATION OF MYCOPLASMA IgM: Negative: IgM to M. pneumoniae Absent, or at levels below the assay limit of detection. Positive: IgM to M. pneumoniae Present. Invalid: Test results are invalid due to invalid internal control. Assay was performed in duplicate. Repeat testing is suggested if clinically indicated. MGon 02-23-2025 Magnesium [Mass/Vol] 2.2 mg/dL Normal 1.8-2.4 [facility] Comment on above: Performed By: #### M RSAPCR, RESCVID #### [place] [address] MYCOon 02-23-2025 Mycoplasma IgM Negative Normal [facility] Comment on above: Result Comment: INTE RPRETATION OF MYCOPLASMA IgM: Negative: IgM to M. pneumoniae Absent, or at levels below the assay limit of detection. Positive: IgM to M. pneumoniae Present. Invalid: Test results are invalid due to invalid internal control. Assay was performed in duplicate. Repeat testing is suggested if clinically indicated. Performed By: #### V IDH #### [facility] [address] [place], [place] [address] RESCVIDon 02-23-2025 Adenovirus Not detected Normal Not Detected [facility] [place] Comment on above: Performed By: #### M RSAPCR, RESCVID #### [address] [id number] Bordetella Parapertussis Not detected Normal Not Detected [facility] [place] Comment on above: Performed By: #### M RSAPCR, RESCVID #### [address] [id number] Bordetella Pertussis Not detected Normal Not Detected [facility] [place] Comment on above: Performed By: #### M RSAPCR, RESCVID #### [address] [id number] Chlamydophila pneumoniae Not detected Normal Not Detected [facility] [place] Comment on above: Performed By: #### M RSAPCR, RESCVID #### [address] [address] Coronavirus 229E (Not COVID-19) Not detected Normal Not Detected [facility] [place] Comment on above: Performed By: #### M RSAPCR, RESCVID #### [facility] [address] [place] [address] Coronavirus HKU1 (Not COVID-19) Not detected Normal Not Detected [facility] Comment on above: Performed By: #### M RSAPCR, RESCVID #### [facility] [address] [place] [address] 26701 Coronavirus NL63 (Not COVID-19) Not detected Normal Not Detected [facility] Comment on above: Performed By: #### M RSAPCR, RESCVID #### [address] [address] Coronavirus OC43 (Not COVID-19) Not detected Normal Not Detected [facility] Comment on above: Performed By: #### M RSAPCR, RESCVID #### [facility] [address] [place] [address]239 Human Metapneumovirus Not detected Normal Not Detected [facility] Comment on above: Performed By: #### M RSAPCR, RESCVID #### [facility] [address] [place] [address] Influenza A Not detected Normal Not Detected [facility] Comment on above: Performed By: #### M RSAPCR, RESCVID #### [facility] [address] [place] [address]96 Influenza B Not detected Normal Not Detected [facility] Comment on above: Performed By: #### M RSAPCR, RESCVID #### [facility] [address] [place] [address] 48036 Mycoplasma pneumoniae Not detected Normal Not Detected [facility] Comment on above: Performed By: #### M RSAPCR, RESCVID #### [facility] [address] [place] [address] Parainfluenza 1 Not detected Normal Not Detected [facility] Comment on above: Performed By: #### M RSAPCR, RESCVID #### [facility] [address] [place] [address] Parainfluenza 2 Not detected Normal Not Detected [facility] Comment on above: Performed By: #### M RSAPCR, RESCVID #### [facility] [address] [place] [address] 49912 Parainfluenza 3 Not detected Normal Not Detected [facility] Comment on above: Performed By: #### M RSAPCR, RESCVID #### [facility] [address] [place] [address]2475 Parainfluenza 4 Not detected Normal Not Detected [facility] Comment on above: Performed By: #### M RSAPCR, RESCVID #### [facility] [address] [place] [address] 18528 Respiratory Syncytial Virus Not detected Normal Not Detected [facility] Comment on above: Performed By: #### M RSAPCR, RESCVID #### [facility] [address] [place] [address] 96279 Rhinovirus/Enterovirus Not detected Normal Not Detecte d [facility] Comment on above: Performed By: #### M RSAPCR, RESCVID #### [facility] [address] [place] [address] 24492 SARS-CoV-2 (COVID-19) RNA DARYA+probe Ql (Unsp spec) Not detected Normal Not Detected [facility] Comment on above: Result Comment: This assay has been validated in the [facility] for use with nasopharyngeal specimens in [facility]. If a non-validated specimen or test collection [...] Performed By: #### M RSAPCR, RESCVID #### [facility] [address] [place] [address] XR ABDOMEN APon 02-23-2025 XR ABDOMEN AP [...] 02/23/2025 11:03:02 AM Ordering Provider: THAO Smallwood [facility] .Auto Diffon 02-22-2025 Basophil, Absolute 0.0 10 3/mcL Normal 0.0-0.3 [facility] Comment on above: Performed By: #### M RSAPCR, RESCVID #### [address] [address] Basophils/100 WBC (Bld) 0.4 % Normal 0.0-2.5 [facility] Comment on above: Performed By: #### M RSAPCR, RESCVID #### [address] [address] Eosinophil, Absolute 0.2 10 3/mcL Normal 0.0-0.7 [facility] Comment on above: Performed By: #### M RSAPCR, RESCVID #### [address] [address] Eosinophils/100 WBC (Bld) 1.8 % Normal 0.0-6.0 [facility] Comment on above: Performed By: #### M RSAPCR, RESCVID #### [address] [address] Lymphocyte, Absolute 0.8 10 3/mcL Low 0.9-4.3 [facility] Comment on above: Performed By: #### M RSAPCR, RESCVID #### [facility] [address] [place] [address] 15581 Lymphocytes/100 WBC (Bld) 6.3 % Low 20.0-40.0 [facility] Comment on above: Performed By: #### M RSAPCR, RESCVID #### [facility] [address] [place] [address] 97131 Monocyte, Absolute 1.2 10 3/mcL Normal 0.1-1.4 [facility] Comment on above: Performed By: #### M RSAPCR, RESCVID #### [facility] [address] [place] [address] Monocytes/100 WBC (Bld) 9.5 % Normal 2.0-13.0 [facility] Comment on above: Performed By: #### M RSAPCR, RESCVID #### [address] [address] Neutrophils/100 WBC (Bld) 82.0 % High 50.0-75.0 [facility] Comment on above: Performed By: #### M RSAPCR, RESCVID #### [address] [address] .GFRon 02-22-2025 Estimated Glomerular Filtration Rate 91 ml/min/1.73sqm Normal [facility] Comment on above: Result Comment: Stages of [...] results. Performed By: #### V IDH #### [facility] [address] [place], [place] [address] .MDWon 02-22-2025 Monocyte Distribution Width 19.17 Normal 0.00-20.00 [facility] Comment on above: Result Comment: For ED adult patients suspected of sepsis, MDW<=20.0 does not rule out sepsis or risk of sepsis Performed By: #### M RSAPCR, RESCVID #### [address] [address] .NEUABSon 02-22-2025 Neutrophil, Absolute 10.5 10 3/mcL High 2.3-8.1 [facility] Comment on above: Performed By: #### M RSAPCR, RESCVID #### [address] [address] BMPon 02-22-2025 BUN/Creatinine Ratio 38 ratio High 7-27 [facility] Comment on above: Performed By: #### M RSAPCR, RESCVID #### [address] [address] Calcium [Mass/Vol] 9.0 mg/dL Normal 8.4-10.[address] [facility] Comment on above: Performed By: #### M RSAPCR, RESCVID #### [address] [address] Chloride [Moles/Vol] 106 mmol/L Normal 98-107 [facility] Comment on above: Performed By: #### M RSAPCR, RESCVID #### [address] [address] CO2 [Moles/Vol] 28 mmol/L Normal 23-31 [facility] Comment on above: Performed By: #### M RSAPCR, RESCVID #### [address] [address] Creatinine [Mass/Vol] 0.77 mg/dL Normal 0.67-1.17 [facility] Comment on above: Performed By: #### M RSAPCR, RESCVID #### [address] [address] Electrolyte Balance 8.0 mEq/L Normal 4.0-15.0 [facility] Comment on above: Performed By: #### M RSAPCR, RESCVID #### [address] [address] Glucose [Mass/Vol] 128 mg/dL High 83-[address] [facility] Comment on above: Performed By: #### M RSAPCR, RESCVID #### [place] [address] [place] [address]773 Potassium [Moles/Vol] 3.7 mmol/L Normal 3.5-5.1 [facility] Comment on above: Performed By: #### M RSAPCR, RESCVID #### [address] [address] Sodium [Moles/Vol] 142 mmol/L Normal 136-[address] [facility] Comment on above: Performed By: #### M RSAPCR, RESCVID #### [address] [address] Urea nitrogen [Mass/Vol] 29 mg/dL High 7-18 [facility] Comment on above: Performed By: #### M RSAPCR, RESCVID #### [address] [address] CBCon 02-22-2025 Erythrocyte distribution width (RBC) [Ratio] 14.1 % Normal 11.5-15.5 [facility] Comment on above: Performed By: #### M RSAPCR, RESCVID #### [address] [address] Hematocrit (Bld) [Volume fraction] 41.7 % Normal 40.0-52.0 [facility] Comment on above: Performed By: #### M RSAPCR, RESCVID #### [address] [address] Hgb 14.1 G/dL Normal 13.0-17.5 [facility] Comment on above: Performed By: #### M RSAPCR, RESCVID #### [address] [address] MCH (RBC) [Entitic mass] 32.0 pg Normal 27.0-33.0 [facility] Comment on above: Performed By: #### M RSAPCR, RESCVID #### [address] [address] MCHC 33.9 G/dL Normal 32.0-36.0 [facility] Comment on above: Performed By: #### M RSAPCR, RESCVID #### [address] [address] MCV (RBC) [Entitic vol] 94.3 fL Normal 81.0-100.0 [facility] Comment on above: Performed By: #### M RSAPCR, RESCVID #### [address] [address] Platelet 240 10 3/mcL Normal 150-450 [facility] Comment on above: Performed By: #### M RSAPCR, RESCVID #### [address] [address] Platelet mean volume (Bld) [Entitic vol] 7.2 fL Normal 6.4-10.5 [facility] Comment on above: Performed By: #### M RSAPCR, RESCVID #### [place] [address] RBC 4.42 10 6/mcL Low 4.50-6.00 [facility] Comment on above: Performed By: #### M RSAPCR, RESCVID #### [place] [id number] WBC 12.8 10 3/mcL High 4.5-10.8 [facility] Comment on above: Performed By: #### M RSAPCR, RESCVID #### [address] [address] CVFLURVon 02-22-2025 FLU A PCR Negative Normal Negative [facility] Comment on above: Performed By: #### C VFLURV ####[place] [address] FLU B PCR Negative Normal Negative [facility] Comment on above: Performed By: #### C VFLURV ####[place] [id number] RSV PCR Negative Normal Negative [facility] Comment on above: Performed By: #### C VFLURV ####[place] [address] [place], [place] [address] SARS-CoV-2 (COVID-19) RNA DARYA+probe Ql (Unsp spec) Negative Normal Negative [facility] Comment on above: Result Comment: Resu lts [...] results. Performed By: #### C VFLURV ####[facility] [address] [place], [place] [address] LABORATORYOrdered By: Fili Sotelo on 02-22-2025 Adenovirus DNA DARYA+non-probe Ql (Nph) Not Detected *NA* (02/22/25 6:51 PM) Invalid Interpretation Code Not Detected AH Auto Viro/Sero SS B. parapertussis [id number] DNA DARYA+non-probe Ql (Nph) Not Detected *NA* [...] his assay has been validated in the [facility] for use with nasopharyngeal specimens in [facility]. If a non-validated specimen or test collection [...] ng/L Male: 0-76 ng/L Testing performed on [employer] using a homogeneous sandwich chemiluminescent immunoassay based on [employer] technology. Urea nitrogen [Mass/Vol] 29 mg/dL High [...] serogroups and species may also cause disease. [facility] Microscopic examination of blood, culture Culture has been received in lab and is no growth to date. Routine cultures are held for 5 days. [facility] Streptococcus Pneumoniae Urine Antig Presumptive negative for pneumococcal pneumonia, suggesting no current or recent pneumococcal infection. Infection due to Strep pneumoniae cannot be ruled out since the antigen present in the sample may be below the detection limit of the test. [facility] Comment on above: This test has not be en evaluated on patients taking antibiotics for greater than 24 hours or on patients who have recently completed an antibiotic regimen. The accuracy of this test has not been proven in young children. PBNPon 02-22-2025 Natriuretic peptide B (Bld) [Mass/Vol] 303 pg/mL Normal 0-450 [facility] Comment on above: Result Comment: NT-p roBNP results of less than 300 pg/mL effectively rules out acute congestive heart failure with 99% negative predictive value. Performed By: #### V IDH #### [facility] [address] [place], [place] [address] formerly [facility] 02-22-2025 High Sensitivity Troponin I 9 ng/L Normal 0-76 [facility] Comment on above: Result Comment: High Sensitive Troponin I Reference Ranges: Female: 0-51 ng/L Male: 0-76 ng/L Testing performed on [employer] using a homogeneous sandwich chemiluminescent immunoassay based on [employer] technology. Performed By: #### M RSAPCR, RESCVID #### [facility] [address] [place] [address] UAon 02-22-2025 Color (U) Yellow Normal [facility] Comment on above: Performed By: #### U AMIC, UA ####[place] [address] [place], [place] [address] Glucose (U) [Mass/Vol] Negative Normal Negative [facility] Comment on above: Performed By: #### U AMIC, UA ####[place] [address] [place] [address] Ketones Ql (U) 15 mg/dL Abnormal Negative [facility] Comment on above: Performed By: #### U AMIC, UA ####[place] [address] [place] [address] UA Appear Clear Normal Clear [facility] Comment on above: Performed By: #### U AMIC, UA ####[place] [address] [place], [place] [address] UA Bili Moderate Abnormal Negative [facility] Comment on above: Performed By: #### U AMIC, UA ####[place] [address] [place], [place] [address] UA Blood Negative Normal Negative [facility] Comment on above: Performed By: #### U AMIC, UA ####[place] [address] [place], [place] [address] UA Leuk Est Negative Normal Negative [facility] Comment on above: Performed By: #### U AMIC, UA ####[place] [address] [place], [place] [address] UA Nitrite Negative Normal Negative [facility] Comment on above: Performed By: #### U AMIC, UA ####[place] [address] [place], [place] [address] UA pH 6.0 Normal 5.0 - 8.0 [facility] Comment on above: Performed By: #### U AMIC, UA ####[place] [address] [place], [place] [address] UA Protein 30 mg/dL Normal Negative [facility] Comment on above: Performed By: #### U AMIC, UA ####[place] [address] [place], [place] [address] UA Spec Grav 1.025 Normal 1.015-1.025 [facility] Comment on above: Performed By: #### U AMIC, UA ####[place] [address] [place], [place] [address] UA Specimen Type Void Normal [facility] Comment on above: Performed By: #### U AMIC, UA ####[facility] [address] [place] [id number] UA Urobilinogen 2.0 E.U./dL Abnormal 0.2-1.0 [facility] Comment on above: Performed By: #### U AMIC, UA ####[place] [address] [place], [place] [address] UAMICon 02-22-2025 UA RBC 3-5 Abnormal 0-2 [facility] Comment on above: Performed By: #### U AMIC, UA ####[place] [address] [place] [address]227 UA Squam Epithelial Negative Normal 0-20 [facility] Comment on above: Performed By: #### U AMIC, UA ####[place] [address] [place] [address] UA WBC 0-2 Normal 0-5 [facility] Comment on above: Performed By: #### U AMIC, UA ####[place] [address] [place], [place] [address] XR CHEST 1 VIEWon 02-22-2025 XR CHEST [...] 02/22/2025 7:30:02 PM Ordering Provider: BRYN Smallwood [facility] L/S Spine Min 4 Viewson 10-30 L/S Spine Min 4 Views [facility] Services [address] [place] [address] L/S Spine Min 4 Views MR#: [id number] Acct: [id number] Name: NANCY SY Rep #: [id number] : 1945 M 79 From: Izaiah Fontanez MD PCP: LOIS Resendiz Status: DEP AMB Study: L/S Spine Min 4 Views Date of Exam: 11/09/24 Exam# [id number] Ordering Dr: Brody Malhotra MD PROCEDURE: L/S [...] and additional description as above. Reading Location: [id number] CC: OPEN CLAIMS REPRESENTATIVE-C Katherine Brand; Dr. Brody Malhotra MD Warehouse Logistics Manager: Signed Normal [facility] Thoracic Spine Min 4 Viewson 11-09-2024 Thoracic Spine Min 4 Views [facility] [address] [place], [place] [address] Thoracic Spine Min 4 Views MR#: [id number] Acct: [id number] Name: NANCY SY Rep #: [id number] : 1945 79 From: Izaiah Fontanez MD PCP: LOIS Resendiz Status: DEP AMB Study: Thoracic Spine Min 4 Views Date of Exam: 11/09 Exam# [id number] Ordering Dr: Brody Malhotra MD PROCEDURE: THORACIC [...] at additional description as above. Reading Location: [id number] CC: OPEN CLAIMS REPRESENTATIVELeighann Brand; Dr. Brody Malhotra MD Warehouse Logistics Manager: Signed Normal [facility] Office Visit Reporton 2024 Office Visit Report [facility] [address] [place] [address] OFFICE VISIT Date of Service: 10/21/24 MR#: [id number] Acct: [id number] Patient: NANCY SY Rep #: [id number] : 1945 Provider: Kathy Young Age/Sex: 79/M Location: [facility] Status: Signed Intake Vital Signs 09/23/24 15:33 [...] Procedure performed by: Norma Quezada Lot number: [id number] [employer] Operator: [employer] date: 02/28/27 Dose of injection: 1 mL Site of injection: Sub-Q Medication Given: Yes Is this a patient provided medication?: No Office Meds Prolia 60 mg/mL subcutaneous syringe Performing Provider: Amber Greenwood MD Performing Location: [facility] Administered by: Norma Quezada RN on 10/21/24 15:55 Dose Route Admin Location Dispensed Lot Number Expiration Date [facility] Man ufacturer 60 mg subcut Left arm 1 mL [id number] 02/28/27 92039-894-66 [employer] Assessment and Plan Assessment and Plan [...] past year?: No 10/22/24 0806 Date Amber Bo Signature: Date (if applicable) CC: Normal [facility] TFTESTon 10-14-2024 Free Testost Direct 1.8 pg/mL Low 6.6-18.1 [facility] Comment on above: Result Comment: Perf ormed At: [facility] [id number] Dominick Rae MD Ph:[phone] Performed At: [facility] [id number] Ernesto Vigil PhD Ph:[phone] Performed By: #### 1 [address], CAROLA ####[address] [address]#### PTH ####[place] [address] Testosterone Lvl 489 ng/dL Normal 264-916 [facility] Comment on above: Result Comment: Adul t male reference interval is based on a population of healthy nonobese males (BMI <30) between 19 and 39 years old. Yamilex et.al. JCEM 2017,102;0126-3083. PMID: [id number]. Performed By: #### 1 99338, JAELYN ####[facility] [place], [place] [address]#### PTH ####[place] [address] .Auto Diffon 10-08-2024 Basophil, Absolute 0.1 10 3/mcL Normal 0.0-0.2 [facility] Comment on above: Performed By: #### A SHERRELL, ADIFF, GFR, LIPID, CBC, PSA, CMP ####[place] [address] [place], [place] [address] Basophils/100 WBC (Bld) 0.8 % Normal 0.0-2.5 [facility] Comment on above: Performed By: #### A SHERRELL, ADIFF, GFR, LIPID, CBC, PSA, CMP ####[place] [address] [place], [place] [address] Eosinophil, Absolute 0.5 10 3/mcL Normal 0.0-0.7 [facility] Comment on above: Performed By: #### A SHERRELL, ADIFF, GFR, LIPID, CBC, PSA, CMP ####[address] [address] Eosinophils/100 WBC (Bld) 7.6 % High 0.0-7.0 [facility] Comment on above: Performed By: #### A SHERRELL, ADIFF, GFR, LIPID, CBC, PSA, CMP ####[address] [address] Lymphocyte, Absolute 1.1 10 3/mcL Normal 0.9-4.3 [facility] Comment on above: Performed By: #### A SHERRELL, ADIFF, GFR, LIPID, CBC, PSA, CMP ####[address] [address] Lymphocytes/100 WBC (Bld) 15.7 % Low 20.0-40.0 [facility] Comment on above: Performed By: #### A SHERRELL, ADIFF, GFR, LIPID, CBC, PSA, CMP ####[address] [address] Monocyte, Absolute 0.8 10 3/mcL Normal 0.1-1.4 [facility] Comment on above: Performed By: #### A SHERRELL, ADIFF, GFR, LIPID, CBC, PSA, CMP ####[place] [address] [place], [place] [address] Monocytes/100 WBC (Bld) 11.4 % Normal 2.0-13.0 [facility] Comment on above: Performed By: #### A SHERRELL, ADIFF, GFR, LIPID, CBC, PSA, CMP ####[address] [address] Neutrophils/100 WBC (Bld) 64.5 % Normal 50.0-75.0 [facility] Comment on above: Performed By: #### A SHERRELL, ADIFF, GFR, LIPID, CBC, PSA, CMP ####[place] [address] [place], [place] [address] .GFRon 10-08-2024 Estimated Glomerular Filtration Rate 87 ml/min/1.73sqm Normal [facility] Comment on above: Result Comment: Stages of [...] SHERRELL, ADIFF, GFR, LIPID, CBC, PSA, CMP ####[place] [address] [place], [place] [address] .NEUABSon 10-08-2024 Neutrophil, Absolute 4.5 10 3/mcL Normal 2.3-8.1 [facility] Comment on above: Performed By: #### A SHERRELL, ADIFF, GFR, LIPID, CBC, PSA, CMP ####[address] [address] CBCon 10-08-2024 Erythrocyte distribution width (RBC) [Ratio] 13.7 % Normal 11.5-15.5 [facility] Comment on above: Performed By: #### A SHERRELL, ADIFF, GFR, LIPID, CBC, PSA, CMP ####[place] [address] Hematocrit (Bld) [Volume fraction] 39.2 % Low 40.0-52.0 [facility] Comment on above: Performed By: #### A SHERRELL, ADIFF, GFR, LIPID, CBC, PSA, CMP ####[place] [address] Hgb 13.6 G/dL Normal 13.0-17.5 [facility] Comment on above: Performed By: #### A SHERRELL, ADIFF, GFR, LIPID, CBC, PSA, CMP ####[place] [address] MCH (RBC) [Entitic mass] 32.2 pg Normal 27.0-33.0 [facility] Comment on above: Performed By: #### A SHERRELL, ADIFF, GFR, LIPID, CBC, PSA, CMP ####[place] [address] MCHC 34.7 G/dL Normal 32.0-36.0 [facility] Comment on above: Performed By: #### A SHERRELL, ADIFF, GFR, LIPID, CBC, PSA, CMP ####[place] [id number] MCV (RBC) [Entitic vol] 92.7 fL Normal 81.0-100.0 [facility] Comment on above: Performed By: #### A SHERRELL, ADIFF, GFR, LIPID, CBC, PSA, CMP ####[place] [id number] Platelet 271 10 3/mcL Normal 150-450 [facility] Comment on above: Performed By: #### A SHERRELL, ADIFF, GFR, LIPID, CBC, PSA, CMP ####[place] [address] [place], [place] [address] Platelet mean volume (Bld) [Entitic vol] 7.2 fL Normal 6.4-10.5 [facility] Comment on above: Performed By: #### A SHERRELL, ADIFF, GFR, LIPID, CBC, PSA, CMP ####[place] [address] [place], [place] [address] RBC 4.23 10 6/mcL Low 4.50-6.00 [facility] Comment on above: Performed By: #### A SHERRELL, ADIFF, GFR, LIPID, CBC, PSA, CMP ####[place] [address] [place], [place] [address] WBC 7.0 10 3/mcL Normal 4.5-10.8 [facility] Comment on above: Performed By: #### A SHERRELL, ADIFF, GFR, LIPID, CBC, PSA, CMP ####[place] [address] [place], [place] [address] CMPon 10-08-2024 Albumin Level 3.8 G/dL Normal 3.4-4.8 [facility] Comment on above: Performed By: #### A SHERRELL, ADIFF, GFR, LIPID, CBC, PSA, CMP ####[address] [address] Albumin/Globulin [Mass ratio] 1.3 {ratio} Normal 1.1-2.5 [facility] Comment on above: Performed By: #### A SHERRELL, ADIFF, GFR, LIPID, CBC, PSA, CMP ####[address] [address] ALP [Catalytic activity/Vol] 124 U/L Normal 40-135 [facility] Comment on above: Performed By: #### A SHERRELL, ADIFF, GFR, LIPID, CBC, PSA, CMP ####[place] [address] [place], [place] [address] ALT [Catalytic activity/Vol] 15 U/L Low 16-63 [facility] Comment on above: Performed By: #### A SHERRELL, ADIFF, GFR, LIPID, CBC, PSA, CMP ####[place] [address] [place], [place] [address] AST [Catalytic activity/Vol] 15 U/L Normal 10-40 [facility] Comment on above: Performed By: #### A SHERRELL, ADIFF, GFR, LIPID, CBC, PSA, CMP ####[address] [address] Bili Total 0.4 mg/dL Normal 0.2-1.0 [facility] Comment on above: Result Comment: Use of this assay is not recommended for patients undergoing treatment with eltrombopag due to the potential for falsely elevated results. Performed By: #### A SHERRELL, ADIFF, GFR, LIPID, CBC, PSA, CMP ####[place] [address] [place], [place] [address] BUN/Creatinine Ratio 24 ratio Normal 7-27 [facility] Comment on above: Performed By: #### A SHERRELL, ADIFF, GFR, LIPID, CBC, PSA, CMP ####[address] [address] Calcium [Mass/Vol] 9.2 mg/dL Normal 8.4-10.[address] [facility] Comment on above: Performed By: #### A SHERRELL, ADIFF, GFR, LIPID, CBC, PSA, CMP ####[address] [address] Chloride [Moles/Vol] 106 mmol/L Normal 98-107 [facility] Comment on above: Performed By: #### A SHERRELL, ADIFF, GFR, LIPID, CBC, PSA, CMP ####[address] [address] CO2 [Moles/Vol] 32 mmol/L High 23-31 [facility] Comment on above: Performed By: #### A SHERRELL, ADIFF, GFR, LIPID, CBC, PSA, CMP ####[place] [address] [place], [place] [address] Creatinine [Mass/Vol] 0.90 mg/dL Normal 0.70-1.30 [facility] Comment on above: Result Comment: Test ing performed on Siemens Dimension EXL analyzer using a modified kinetic Mars technique. Performed By: #### A SHERRELL, ADIFF, GFR, LIPID, CBC, PSA, CMP ####[place] [place], [place] [address] Electrolyte Balance 5.0 mEq/L Normal 4.0-15.0 [facility] Comment on above: Performed By: #### A SHERRELL, ADIFF, GFR, LIPID, CBC, PSA, CMP ####[address] [address] Globulin 3.0 G/dL Normal 1.5-3.8 [facility] Comment on above: Performed By: #### A SHERRELL, ADIFF, GFR, LIPID, CBC, PSA, CMP ####[place] [address] [place], [place] [address] Glucose [Mass/Vol] 108 mg/dL Normal 83-[address] [facility] Comment on above: Performed By: #### A SHERRELL, ADIFF, GFR, LIPID, CBC, PSA, CMP ####[address] [address] Potassium [Moles/Vol] 3.9 mmol/L Normal 3.5-5.1 [facility] Comment on above: Performed By: #### A SHERRELL, ADIFF, GFR, LIPID, CBC, PSA, CMP ####[address] [address] Sodium [Moles/Vol] 143 mmol/L Normal 136-[address] [facility] Comment on above: Performed By: #### A SHERRELL, ADIFF, GFR, LIPID, CBC, PSA, CMP ####[address] [address] Total Protein 6.8 G/dL Normal 6.4-8.2 [facility] Comment on above: Performed By: #### A SHERRELL, ADIFF, GFR, LIPID, CBC, PSA, CMP ####[address] [address] Urea nitrogen [Mass/Vol] 22 mg/dL High 7-18 [facility] Comment on above: Performed By: #### A SHERRELL, ADIFF, GFR, LIPID, CBC, PSA, CMP ####[place] [id number] [place] [address] LABORATORYOrdered By: SYSTEM SYSTEM on 10-08-2024 25-hydroxyvitamin [...] above: Interpretive Data: T esting performed on [employer] Dimension EXL analyzer using a modified kinetic [...] 10-08-2024 Cholesterol [Mass/Vol] 153 mg/dL Normal 0-200 [facility] Comment on above: Result Comment: Chol esterol Reference Interval: Less than 200 Desirable 200-239 Borderline high risk 240 and above High risk Performed By: #### A SHERRELL, ADIFF, GFR, LIPID, CBC, PSA, CMP ####[place] [address] [place], [place] [address] Cholesterol in HDL [Mass/Vol] 46 mg/dL Normal 40-60 [facility] Comment on above: Performed By: #### A SHERRELL, ADIFF, GFR, LIPID, CBC, PSA, CMP ####[address] [address] [place], [place] [address] Cholesterol in LDL [Mass/Vol] 99 mg/dL Normal 0-130 [facility] Comment on above: Performed By: #### A SHERRELL, ADIFF, GFR, LIPID, CBC, PSA, CMP ####[address] [address] Triglyceride [Mass/Vol] 42 mg/dL Normal 0-150 [facility] Comment on above: Result Comment: Trig lyceride Reference Interval: Less than 150 Normal 150-199 Borderline high risk 200-499 High risk 500 or higher Very high risk Performed By: #### A SHERRELL, ADIFF, GFR, LIPID, CBC, PSA, CMP ####[address] [address] PSAon 10-08-2024 Prostate Specific Antigen 0.90 ng/mL Normal 0.00-4.00 [facility] Comment on above: Performed By: #### A SHERRELL, ADIFF, GFR, LIPID, CBC, PSA, CMP ####[place] [address] [place], [place] [address] PTHon 10-08-2024 PTH, Intact 45.9 pg/mL Normal 18.5-88.0 [facility] Comment on above: Performed By: #### 1 [address], JAELYN ####[address] [id number] [place], [place] [address]#### PTH ####[place] [address] [place] [address] VIDHon 10-08-2024 Vit. D 25-Hydroxy 68.5 ng/mL Normal [facility] Comment on above: Result Comment: Inte rpretive Values Based on Total 25(OH) Vitamin D: Deficient <20 ng/mL Insufficient 20 - <30 ng/mL Sufficient 30-100 ng/mL Performed By: #### 1 [address], VI ####[place] [id number] [place], [place] [address]#### PTH ####[place] [address] [place], [place] [id number] Endocrinology Visit Reporton 09-23-2024 Endocrinology Visit Report [facility] [place] [address] OFFICE VISIT Date of Service: 09/23/24 MR#: [id number] Acct: [id number] Name: NANCY SY Rep #: [id number] : 1945 Provider: Kathy Young Age/Sex: 79/M Location: [facility] Status: Signed Intake Vital Signs 07/09/23 14:26 [...] Amber Greenwood MD) household members: spouse HPI JNOA SY, is a 79 M who presents [...] rate Rhythm (more content not included)... Normal [facility] CT HEAD OR BRAIN W/O CONTRAS [...] Sign Date: 08/18/2024 3:16:57 PM Ordering Provider: [facility] XR ELBOW MINIMUM 3 VIEWS LEF Ton [...] by: Vasu Hathaway Preliminary Report By: Kanu Norht Electronically signed By Vasu Hathaway Dictated Date: 08/18/2024 3:16:46 PM Prelim Date: 08/18/2024 3:28:37 PM Sign Date: 08/18/2024 3:28:37 PM Ordering Provider: [facility] XR RIBS 2 VIEWS LEFT/PA CHES [...] 08/18/2024 3:31:12 PM Ordering Provider: SIERRA BLACK [facility] No Panel Informationon 08-05 Culture Urine 10,000 - 50,000 cfu/ml Mixed growth consistent with normal urogenital yobany. [facility] LABORATORYOrdered By: SYSTEM SYSTEM on 08-03-2024 25-hydroxyvitamin D3 [Mass/Vol] 44.2 ng/mL Invalid Interpretation Code AO ADM SS Comment on above: Interpretive Data: I nterpretive Values Based on Total 25(OH) Vitamin D: Deficient <20 ng/mL Insufficient 20 - <30 ng/mL Sufficient 30-100 ng/mL VIon 08-03-2024 Vit. D 25-Hydroxy 44.2 ng/mL [facility] Comment on above: Result Comment: Inte rpretive Values Based on Total 25(OH) Vitamin D: Deficient <20 ng/mL Insufficient 20 - <30 ng/mL Sufficient 30-100 ng/mL Performed By: #### V [facility] #### [address] [address] BD BONE DENSITY DEXA AXIAL S [facility] 06-11-2024 BD BONE DENSITY DEXA AXIAL [...] 06/11/2024 3:10:47 PM Ordering Provider: KATHERINE Smallwood [facility] .Auto Diffon 06-03-2024 Basophil, Absolute 0.1 10 3/mcL Normal 0.0-0.2 [facility] Comment on above: Performed By: #### A SHERRELL, ADIFF, GFR, CBC, CMP, VIDH ####[facility] [place], [place] [address]#### B12 ####[facility] [place] [address] Basophils/100 WBC (Bld) 0.5 % Normal 0.0-2.5 [facility] Comment on above: Performed By: #### A SHERRELL, ADIFF, GFR, CBC, CMP, VIDH ####[place] [id number] [address]#### B12 ####[address] [address] Eosinophil, Absolute 0.2 10 3/mcL Normal 0.0-0.7 [facility] Comment on above: Performed By: #### A SHERRELL, ADIFF, GFR, CBC, CMP, VIDH ####[place] [address]#### B12 ####[address] [address] Eosinophils/100 WBC (Bld) 2.4 % Normal 0.0-7.0 [facility] Comment on above: Performed By: #### A SHERRELL, ADIFF, GFR, CBC, CMP, VIDH ####[place] [address]#### B12 ####[place] [address] Lymphocyte, Absolute 0.9 10 3/mcL Normal 0.9-4.3 [facility] Comment on above: Performed By: #### A SHERRELL, ADIFF, GFR, CBC, CMP, VIDH ####[place] [address]#### B12 ####[place] [address] Lymphocytes/100 WBC (Bld) 8.6 % Low 20.0-40.0 [facility] Comment on above: Performed By: #### A SHERRELL, ADIFF, GFR, CBC, CMP, VIDH ####[place] [address]#### B12 ####[place] [address] Monocyte, Absolute 0.9 10 3/mcL Normal 0.1-1.4 [facility] Comment on above: Performed By: #### A SHERRELL, ADIFF, GFR, CBC, CMP, VIDH ####[place] [address]#### B12 ####[address] [place] [address] Monocytes/100 WBC (Bld) 8.7 % Normal 2.0-13.0 [facility] Comment on above: Performed By: #### A SHERRELL, ADIFF, GFR, CBC, CMP, VIDH ####[place] [address] [place], [place] [address]#### B12 ####[address] [address] Neutrophils/100 WBC (Bld) 79.8 % High 50.0-75.0 [facility] Comment on above: Performed By: #### A SHERRELL, ADIFF, GFR, CBC, CMP, VIDH ####[address] [address]#### B12 ####[address] [address] .GFRon 06-03-2024 GFR Non- 95 ml/min/1.73sqm Normal [facility] Comment on above: Result Comment: GFR Population [...] A SHERRELL, ADIFF, GFR, CBC, CMP, VIDH ####[place] [address] [place], [place] [address]#### B12 ####[address] [address] GFR 115 ml/min/1.73sqm Normal [facility] Comment on above: Result Comment: GFR Population [...] A SHERRELL, ADIFF, GFR, CBC, CMP, VIDH ####[place] [address]#### B12 ####[place] [address] .NEUABSon 06-03-2024 Neutrophil, Absolute 8.4 10 3/mcL High 2.3-8.1 [facility] Comment on above: Performed By: #### A SHERRELL, ADIFF, GFR, CBC, CMP, VIDH ####[place] [address]#### B12 ####[place] [address] B12on 06-03-2024 Cobalamin (Vitamin B12) [Mass/Vol] 633 pg/mL Normal 211-911 [facility] Comment on above: Performed By: #### A SHERRELL, ADIFF, GFR, CBC, CMP, VIDH ####[place] [address]#### B12 ####[place] [address] CBCon 06-03-2024 Erythrocyte distribution width (RBC) [Ratio] 13.9 % Normal 11.5-15.5 [facility] Comment on above: Performed By: #### A SHERRELL, ADIFF, GFR, CBC, CMP, VIDH ####[place] [address]#### B12 ####[place] [address] Hematocrit (Bld) [Volume fraction] 39.9 % Low 40.0-52.0 [facility] Comment on above: Performed By: #### A SHERRELL, ADIFF, GFR, CBC, CMP, VIDH ####[place] [address]#### B12 ####[place] [address] Hgb 13.8 G/dL Normal 13.0-17.5 [facility] Comment on above: Performed By: #### A SHERRELL, ADIFF, GFR, CBC, CMP, VIDH ####[place] [address]#### B12 ####[place] [address] MCH (RBC) [Entitic mass] 32.3 pg Normal 27.0-33.0 [facility] Comment on above: Performed By: #### A SHERRELL, ADIFF, GFR, CBC, CMP, VIDH ####[place] [address]#### B12 ####[place] [address] MCHC 34.5 G/dL Normal 32.0-36.0 [facility] Comment on above: Performed By: #### A SHERRELL, ADIFF, GFR, CBC, CMP, VIDH ####[place] [address]#### B12 ####[place] [address] MCV (RBC) [Entitic vol] 93.6 fL Normal 81.0-100.0 [facility] Comment on above: Performed By: #### A SHERRELL, ADIFF, GFR, CBC, CMP, VIDH ####[place] [address]#### B12 ####[place] [address] Platelet 260 10 3/mcL Normal 150-450 [facility] Comment on above: Performed By: #### A SHERRELL, ADIFF, GFR, CBC, CMP, VIDH ####[place] [address]#### B12 ####[place] [address] Platelet mean volume (Bld) [Entitic vol] 7.4 fL Normal 6.4-10.5 [facility] Comment on above: Performed By: #### A SHERRELL, ADIFF, GFR, CBC, CMP, VIDH ####[place] [address]#### B12 ####[place] [address] RBC 4.27 10 6/mcL Low 4.50-6.00 [facility] Comment on above: Performed By: #### A SHERRELL, ADIFF, GFR, CBC, CMP, VIDH ####[place] [address]#### B12 ####[place] [address] WBC 10.5 10 3/mcL Normal 4.5-10.8 [facility] Comment on above: Performed By: #### A SHERRELL, ADIFF, GFR, CBC, CMP, VIDH ####[place] [address]#### B12 ####[place] [address] CMPon 06-03-2024 Albumin Level 3.8 G/dL Normal 3.4-4.8 [facility] Comment on above: Performed By: #### A SHERRELL, ADIFF, GFR, CBC, CMP, VIDH ####[place] [address]#### B12 ####[place] [address] Albumin/Globulin [Mass ratio] 1.5 {ratio} Normal 1.1-2.5 [facility] Comment on above: Performed By: #### A SHERRELL, ADIFF, GFR, CBC, CMP, VIDH ####[place] [address]#### B12 ####[place] [address] ALP [Catalytic activity/Vol] 148 U/L High 40-135 [facility] Comment on above: Performed By: #### A SHERRELL, ADIFF, GFR, CBC, CMP, VIDH ####[place] [address]#### B12 ####[place] [address] ALT [Catalytic activity/Vol] 23 U/L Normal 16-63 [facility] Comment on above: Performed By: #### A SHERRELL, ADIFF, GFR, CBC, CMP, VIDH ####[place] [address]#### B12 ####[place] [address] AST [Catalytic activity/Vol] 15 U/L Normal 10-40 [facility] Comment on above: Performed By: #### A SHERRELL, ADIFF, GFR, CBC, CMP, VIDH ####[place] [address]#### B12 ####[place] [address] Bili Total 0.4 mg/dL Normal 0.2-1.0 [facility] Comment on above: Result Comment: Use of this assay is not recommended for patients undergoing treatment with eltrombopag due to the potential for falsely elevated results. Performed By: #### A SHERRELL, ADIFF, GFR, CBC, CMP, VIDH ####[place] [address]#### B12 ####[place] [address] BUN/Creatinine Ratio 18 ratio Normal 7-27 [facility] Comment on above: Performed By: #### A SHERRELL, ADIFF, GFR, CBC, CMP, VIDH ####[place] [address]#### B12 ####[address] [address] Calcium [Mass/Vol] 8.9 mg/dL Normal 8.4-10.[address] [facility] Comment on above: Performed By: #### A SHERRELL, ADIFF, GFR, CBC, CMP, VIDH ####[place] [address]#### B12 ####[place] [address] Chloride [Moles/Vol] 104 mmol/L Normal 98-107 [facility] Comment on above: Performed By: #### A SHERRELL, ADIFF, GFR, CBC, CMP, VIDH ####[place] [address]#### B12 ####[place] [address] CO2 [Moles/Vol] 30 mmol/L Normal 23-31 [facility] Comment on above: Performed By: #### A SHERRELL, ADIFF, GFR, CBC, CMP, VIDH ####[place] [address]#### B12 ####[place] [address] Creatinine [Mass/Vol] 0.79 mg/dL Normal 0.70-1.30 [facility] Comment on above: Result Comment: Test ing performed on Siemens Dimension EXL analyzer using a modified kinetic Mars technique. Performed By: #### A SHERRELL, ADIFF, GFR, CBC, CMP, VIDH ####[place] [address]#### B12 ####[place] [address] Electrolyte Balance 9.0 mEq/L Normal 4.0-15.0 [facility] Comment on above: Performed By: #### A SHERRELL, ADIFF, GFR, CBC, CMP, VIDH ####[place] [address]#### B12 ####[address] [address] Globulin 2.5 G/dL Normal [facility] Comment on above: Performed By: #### A SHERRELL, ADIFF, GFR, CBC, CMP, VIDH ####[place] [address]#### B12 ####[address] [address] Glucose [Mass/Vol] 106 mg/dL Normal 83-[address] [facility] Comment on above: Performed By: #### A SHERRELL, ADIFF, GFR, CBC, CMP, VIDH ####[place] [address]#### B12 ####[address] [address] Potassium [Moles/Vol] 3.5 mmol/L Normal 3.5-5.1 [facility] Comment on above: Performed By: #### A SHERRELL, ADIFF, GFR, CBC, CMP, VIDH ####[place] [address]#### B12 ####[place] [address] Sodium [Moles/Vol] 143 mmol/L Normal 136-[address] [facility] Comment on above: Performed By: #### A SHERRELL, ADIFF, GFR, CBC, CMP, VIDH ####[place] [address]#### B12 ####[place] [address] Total Protein 6.3 G/dL Low 6.4-8.2 [facility] Comment on above: Performed By: #### A SHERRELL, ADIFF, GFR, CBC, CMP, VIDH ####[place] [address]#### B12 ####[place] [address] Urea nitrogen [Mass/Vol] 14 mg/dL Normal 7-18 [facility] Comment on above: Performed By: #### A SHERRELL, ADIFF, GFR, CBC, CMP, VIDH ####[place] [id number] [place], [place] [address]#### B12 ####[place] [address] LABORATORYOrdered By: SYSTEM SYSTEM on 06-03-2024 25-hydroxyvitamin [...] 06-03-2024 Vit. D 25-Hydroxy 13.5 ng/mL Normal [facility] Comment on above: Result Comment: Inte rpretive Values Based on Total 25(OH) Vitamin D: Deficient <20 ng/mL Insufficient 20 - <30 ng/mL Sufficient 30-100 ng/mL Performed By: #### A SHERRELL, ADIFF, GFR, CBC, CMP, VIDH ####[address] [address]#### B12 ####[place] [address] .Auto Diffon 05-19-2024 Basophil, Absolute 0.0 10 3/mcL Normal 0.0-0.2 [facility] Comment on above: Performed By: #### V IDH #### [address] [address] Basophils/100 WBC (Bld) 0.5 % Normal 0.0-2.5 [facility] Comment on above: Performed By: #### V IDH #### [address] [address] Eosinophil, Absolute 0.2 10 3/mcL Normal 0.0-0.4 [facility] Comment on above: Performed By: #### V IDH #### [address] [address] Eosinophils/100 WBC (Bld) 3.6 % Normal 0.0-7.0 [facility] Comment on above: Performed By: #### V IDH #### [address] [address] Lymphocyte, Absolute 1.0 10 3/mcL Normal 0.8-3.9 [facility] Comment on above: Performed By: #### V IDH #### [address] [address] Lymphocytes/100 WBC (Bld) 15.6 % Normal 10.0-50.0 [facility] Comment on above: Performed By: #### V IDH #### [address] [address] Monocyte, Absolute 0.6 10 3/mcL Normal 0.2-1.0 [facility] Comment on above: Performed By: #### V IDH #### [address] [address] Monocytes/100 WBC (Bld) 8.6 % Normal 1.7-13.0 [facility] Comment on above: Performed By: #### V IDH #### [address] [address] Neutrophils/100 WBC (Bld) 71.7 % Normal 37.0-80.0 [facility] Comment on above: Performed By: #### V IDH #### [address] [address] .GFRon 05-19-2024 GFR Non- 92 ml/min/1.73sqm Normal [facility] Comment on above: Result Comment: GFR Population [...] meters Performed By: #### V IDH #### [address] [address] GFR 112 ml/min/1.73sqm Normal [facility] Comment on above: Result Comment: GFR Population [...] meters Performed By: #### V IDH #### [address] [address] .NEUABSon 05-19-2024 Neutrophil, Absolute 4.8 10 3/mcL Normal 2.9-6.2 [facility] Comment on above: Performed By: #### V IDH #### [address] [address] CBCon 05-19-2024 Erythrocyte distribution width (RBC) [Ratio] 13.5 % Normal 11.5-14.5 [facility] Comment on above: Performed By: #### V IDH #### [address] [address] Hematocrit (Bld) [Volume fraction] 39.3 % Low 42.0-52.0 [facility] Comment on above: Performed By: #### V IDH #### [address] [address] Hgb 13.4 G/dL Low 14.0-18.0 [facility] Comment on above: Performed By: #### V IDH #### [address] [address] MCH (RBC) [Entitic mass] 32.1 pg High 27.0-31.2 [facility] Comment on above: Performed By: #### V IDH #### [address] [address] MCHC 34.1 G/dL Normal 31.8-35.4 [facility] Comment on above: Performed By: #### V IDH #### [address] [address] MCV (RBC) [Entitic vol] 94.0 fL Normal 80.0-94.0 [facility] Comment on above: Performed By: #### V IDH #### [address] [address] Platelet 186 10 3/mcL Normal 130-400 [facility] Comment on above: Performed By: #### V IDH #### [address] [address] Platelet mean volume (Bld) [Entitic vol] 7.3 fL Low 7.4-10.4 [facility] Comment on above: Performed By: #### V IDH #### [address] [address] RBC 4.18 10 6/mcL Normal 4.04-6.13 [facility] Comment on above: Performed By: #### V IDH #### [address] [address] WBC 6.6 10 3/mcL Normal 4.6-10.8 [facility] Comment on above: Performed By: #### V IDH #### [address] [address] CMPon 05-19-2024 Albumin Level 3.5 G/dL Normal 3.4-4.8 [facility] Comment on above: Performed By: #### V IDH #### [address] [address] Albumin/Globulin [Mass ratio] 1.3 {ratio} Normal 1.1-2.5 [facility] Comment on above: Performed By: #### V IDH #### [address] [address] ALP [Catalytic activity/Vol] 186 U/L High 40-135 [facility] Comment on above: Performed By: #### V IDH #### [address] [address] ALT [Catalytic activity/Vol] 26 U/L Normal 16-63 [facility] Comment on above: Performed By: #### V IDH #### [address] [address] AST [Catalytic activity/Vol] 14 U/L Normal 10-40 [facility] Comment on above: Performed By: #### V IDH #### [address] [address] Bili Total 0.5 mg/dL Normal 0.2-1.0 [facility] Comment on above: Result Comment: Use of this assay is not recommended for patients undergoing treatment with eltrombopag due to the potential for falsely elevated results. Performed By: #### V IDH #### [address] [address] BUN/Creatinine Ratio 21 ratio Normal 7-27 [facility] Comment on above: Performed By: #### V IDH #### [address] [address] Calcium [Mass/Vol] 9.0 mg/dL Normal 8.4-10.[address] [facility] Comment on above: Performed By: #### V IDH #### [address] [address] Chloride [Moles/Vol] 108 mmol/L High 98-107 [facility] Comment on above: Performed By: #### V IDH #### [address] [address] CO2 [Moles/Vol] 29 mmol/L Normal 23-31 [facility] Comment on above: Performed By: #### V IDH #### [address] [address] Creatinine [Mass/Vol] 0.81 mg/dL Normal 0.70-1.30 [facility] Comment on above: Result Comment: Test ing performed on Siemens Dimension EXL analyzer using a modified kinetic Mars technique. Performed By: #### V IDH #### [address] [address] Electrolyte Balance 7.0 mEq/L Normal 4.0-15.0 [facility] Comment on above: Performed By: #### V IDH #### [address] [address] Globulin 2.6 G/dL Normal [facility] Comment on above: Performed By: #### V IDH #### [address] [address] Glucose [Mass/Vol] 112 mg/dL High 83-[address] [facility] Comment on above: Performed By: #### V IDH #### [place] [address] Potassium [Moles/Vol] 4.1 mmol/L Normal 3.5-5.1 [facility] Comment on above: Performed By: #### V IDH #### [address] [address] Sodium [Moles/Vol] 144 mmol/L Normal 136-[address] [facility] Comment on above: Performed By: #### V IDH #### [address] [address] Total Protein 6.1 G/dL Low 6.4-8.2 [facility] Comment on above: Performed By: #### V IDH #### [place] [address] Urea nitrogen [Mass/Vol] 17 mg/dL Normal 7-18 [facility] Comment on above: Performed By: #### V IDH #### [address] [id number] LABORATORYOrdered By: SYSTEM SYSTEM on 05-19-2024 Albumin [...] 05-01-2024 Potassium [Moles/Vol] 3.4 mmol/L Low 3.5-5.1 [facility] ([place]) Comment on above: Performed By: #### C BC, ADIFF, ANEU, BMP, GFR #### [place] [id number] LABORATORYOrdered By: SYSTEM SYSTEM on 05-01-2024 Magnesium [Mass/Vol] 2.1 mg/dL Normal 1.8 - 2 .4 mg/dL AO ADM SS Potassium [Moles/Vol] 3.4 mmol/L Low 3.5 - 5.1 mmol/L AO ADM SS MGon 05-01-2024 Magnesium [Mass/Vol] 2.1 mg/dL Normal 1.8-2.4 [facility] ([place]) Comment on above: Performed By: #### C BC, ADIFF, ANEU, BMP, GFR #### [place] [address] [address] [place] 04-30-2024 Potassium [Moles/Vol] 3.2 mmol/L Low 3.5-5.1 [facility] ([place]) Comment on above: Performed By: #### C BC, ADIFF, ANEU, BMP, GFR #### [place] [id number] LABORATORYOrdered By: SYSTEM SYSTEM on 04-30-2024 Potassium [Moles/Vol] 3.2 mmol/L Low 3.5 - 5.1 mmol/L AO ADM SS [place] 04-28-2024 Potassium [Moles/Vol] 3.1 mmol/L Low 3.5-5.1 [facility] ([place]) Comment on above: Performed By: #### C BC, ADIFF, ANEU, BMP, GFR #### [place] [id number] LABORATORYOrdered By: SYSTEM SYSTEM on 04-28-2024 Potassium [Moles/Vol] 3.1 mmol/L Low 3.5 - 5.1 mmol/L AO ADM SS .Auto Diffon 04-27-2024 Basophil, Absolute 0.1 10 3/mcL Normal 0.0-0.2 [facility] [facility] ([place]) Comment on above: Performed By: #### C BC, ADIFF, ANEU, BMP, GFR #### [address] [address] Basophils/100 WBC (Bld) 0.4 % Normal 0.0-2.5 A [facility] ([place]) Comment on above: Performed By: #### C BC, ADIFF, ANEU, BMP, GFR #### [address] [address] Eosinophil, Absolute 0.3 10 3/mcL Normal 0.0-0.4 [facility] ([place]) Comment on above: Performed By: #### C BC, ADIFF, ANEU, BMP, GFR #### [address] [address] Eosinophils/100 WBC (Bld) 2.4 % Normal 0.0-7.0 [facility] ([place]) Comment on above: Performed By: #### C BC, ADIFF, ANEU, BMP, GFR #### [address] [address] Lymphocyte, Absolute 1.0 10 3/mcL Normal 0.8-3.9 [facility] ([place]) Comment on above: Performed By: #### C BC, ADIFF, ANEU, BMP, GFR #### [address] [address] Lymphocytes/100 WBC (Bld) 8.8 % Low 10.0-50.0 [facility] ([place]) Comment on above: Performed By: #### C BC, ADIFF, ANEU, BMP, GFR #### [address] [address] Monocyte, Absolute 1.0 10 3/mcL Normal 0.2-1.0 [facility] ([place]) Comment on above: Performed By: #### C BC, ADIFF, ANEU, BMP, GFR #### [address] [address] Monocytes/100 WBC (Bld) 8.9 % Normal 1.7-13.0 Replaced by [facility] ([place]) Comment on above: Performed By: #### C BC, ADIFF, ANEU, BMP, GFR #### [address] [address] Neutrophils/100 WBC (Bld) 79.5 % Normal 37.0-80.0 [facility] ([place]) Comment on above: Performed By: #### C BC, ADIFF, ANEU, BMP, GFR #### [address] [address] .GFRon 04-27-2024 GFR 122 ml/min/1.73sqm Normal [facility] ([place]) Comment on above: Result Comment: GFR Population [...] C BC, ADIFF, ANEU, BMP, GFR #### [address] [address] GFR Non- 101 ml/min/1.73sqm Normal [facility] ([place]) Comment on above: Result Comment: GFR Population [...] C BC, ADIFF, ANEU, BMP, GFR #### [address] [address] .NEUABSon 04-27-2024 Neutrophil, Absolute 9.2 10 3/mcL High 2.9-6.2 [facility] ([place]) Comment on above: Performed By: #### C BC, ADIFF, ANEU, BMP, GFR #### [address] [address] CBCon 04-27-2024 Erythrocyte distribution width (RBC) [Ratio] 13.6 % Normal 11.5-14.5 [facility] ([place]) Comment on above: Performed By: #### C BC, ADIFF, ANEU, BMP, GFR #### [address] [address] Hematocrit (Bld) [Volume fraction] 36.7 % Low 42.0-52.0 [facility] ([place]) Comment on above: Performed By: #### C BC, ADIFF, ANEU, BMP, GFR #### [address] [address] Hgb 12.6 G/dL Low 14.0-18.0 [facility] ([place]) Comment on above: Performed By: #### C BC, ADIFF, ANEU, BMP, GFR #### [address] [address] MCH (RBC) [Entitic mass] 32.3 pg High 27.0-31.2 [facility] ([place]) Comment on above: Performed By: #### C BC, ADIFF, ANEU, BMP, GFR #### [address] [address] MCHC 34.4 G/dL Normal 31.8-35.4 [facility] ([place]) Comment on above: Performed By: #### C BC, ADIFF, ANEU, BMP, GFR #### [address] [address] MCV (RBC) [Entitic vol] 93.9 fL Normal 80.0-94.0 A [facility] ([place]) Comment on above: Performed By: #### C BC, ADIFF, ANEU, BMP, GFR #### [address] [address] Platelet 238 10 3/mcL Normal 130-400 [facility] ([place]) Comment on above: Performed By: #### C BC, ADIFF, ANEU, BMP, GFR #### [address] [address] Platelet mean volume (Bld) [Entitic vol] 7.4 fL Normal 7.4-10.4 [facility] ([place]) Comment on above: Performed By: #### C BC, ADIFF, ANEU, BMP, GFR #### [address] [address] RBC 3.91 10 6/mcL Low 4.04-6.13 [facility] ([place]) Comment on above: Performed By: #### C BC, ADIFF, ANEU, BMP, GFR #### [address] [address] WBC 11.5 10 3/mcL High 4.6-10.8 [facility] ([place]) Comment on above: Performed By: #### C BC, ADIFF, ANEU, BMP, GFR #### [address] [address] CMPon 04-27-2024 Albumin Level 3.1 G/dL Low 3.4-4.8 [facility] ([place]) Comment on above: Performed By: #### C BC, ADIFF, ANEU, BMP, GFR #### [address] [address] Albumin/Globulin [Mass ratio] 1.2 {ratio} Normal 1.1-2.5 [facility] ([place]) Comment on above: Performed By: #### C BC, ADIFF, ANEU, BMP, GFR #### [address] [address] ALP [Catalytic activity/Vol] 121 U/L Normal 40-135 [facility] ([place]) Comment on above: Performed By: #### C BC, ADIFF, ANEU, BMP, GFR #### [address] [address] ALT [Catalytic activity/Vol] 58 U/L Normal 16-63 [facility] ([place]) Comment on above: Performed By: #### C BC, ADIFF, ANEU, BMP, GFR #### [address] [address] AST [Catalytic activity/Vol] 26 U/L Normal 10-40 [facility] ([place]) Comment on above: Performed By: #### C BC, ADIFF, ANEU, BMP, GFR #### [address] [address] Bili Total 0.4 mg/dL Normal 0.2-1.0 [facility] ([place]) Comment on above: Result Comment: Use of this assay is not recommended for patients undergoing treatment with eltrombopag due to the potential for falsely elevated results. Performed By: #### C BC, ADIFF, ANEU, BMP, GFR #### [address] [address] BUN/Creatinine Ratio 23 ratio Normal 7-27 [facility] ([place]) Comment on above: Performed By: #### C BC, ADIFF, ANEU, BMP, GFR #### [address] [address] Calcium [Mass/Vol] 8.6 mg/dL Normal 8.4-10.2 [facility] ([place]) Comment on above: Performed By: #### C BC, ADIFF, ANEU, BMP, GFR #### [address] [address] Chloride [Moles/Vol] 107 mmol/L Normal 98-107 [facility] ([place]) Comment on above: Performed By: #### C BC, ADIFF, ANEU, BMP, GFR #### [address] [address] CO2 [Moles/Vol] 32 mmol/L High 23-31 [facility] ([place]) Comment on above: Performed By: #### C BC, ADIFF, ANEU, BMP, GFR #### [address] [address] Creatinine [Mass/Vol] 0.75 mg/dL Normal 0.70-1.30 [facility] ([place]) Comment on above: Performed By: #### C BC, ADIFF, ANEU, BMP, GFR #### [address] [address] Electrolyte Balance 7.0 mEq/L Normal 4.0-15.0 [facility] ([place]) Comment on above: Performed By: #### C BC, ADIFF, ANEU, BMP, GFR #### [address] [address] Globulin 2.6 G/dL Normal [facility] ([place]) Comment on above: Performed By: #### C BC, ADIFF, ANEU, BMP, GFR #### [address] [address] Glucose [Mass/Vol] 98 mg/dL Normal 83-110 [facility] ([place]) Comment on above: Performed By: #### C BC, ADIFF, ANEU, BMP, GFR #### [address] [address] Potassium [Moles/Vol] 3.2 mmol/L Low 3.5-5.1 [facility] ([place]) Comment on above: Performed By: #### C BC, ADIFF, ANEU, BMP, GFR #### [address] [address] Sodium [Moles/Vol] 146 mmol/L High 136-145 [facility] ([place]) Comment on above: Performed By: #### C BC, ADIFF, ANEU, BMP, GFR #### [address] [address] Total Protein 5.7 G/dL Low 6.4-8.2 [facility] ([place]) Comment on above: Performed By: #### C BC, ADIFF, ANEU, BMP, GFR #### [address] [address] Urea nitrogen [Mass/Vol] 17 mg/dL Normal 7-18 [facility] ([place]) Comment on above: Performed By: #### C BC, ADIFF, ANEU, BMP, GFR #### [address] [address] LABORATORYOrdered By: SYSTEM SYSTEM on 04-27-2024 Albumin [...] SS MYCOon 04-27-2024 Mycoplasma IgG Negative Normal [facility] ([place]) Comment on above: Order Comment: [place]ul [place] [facility] [id number] 04/23/2024 15:31:57 EDT.Called and faxed to Archie Mayen @[address] [place] [address] Result Comment: INTE RPRETATION OF MYCOPLASMA IgG BY EIA: Negative: No detectable M. pneumoniae IgG antibody. Positive: Mycoplasma pneumoniae IgG antibody Detected. Equivocal: Equivocal for IgG antibodies to Mycoplasma pneumoniae. Suggest repeat testing in 10-14 days. Performed By: #### C BC, ADIFF, ANEU, BMP, GFR #### [place] Vel[address] [address] .GFRon 04-26-2024 GFR 112 ml/min/1.73sqm Normal [facility] ([place]) Comment on above: Result Comment: GFR Population [...] C BC, ADIFF, ANEU, BMP, GFR #### [address] [address] GFR Non- 92 ml/min/1.73sqm Normal [facility] ([place]) Comment on above: Result Comment: GFR Population [...] C BC, ADIFF, ANEU, BMP, GFR #### [address] [address] BMPon 04-26-2024 BUN/Creatinine Ratio 23 ratio Normal 7-27 [facility] ([place]) Comment on above: Performed By: #### C BC, ADROSIE, ANEU, BMP, GFR #### [address] [address] Calcium [Mass/Vol] 8.9 mg/dL Normal 8.4-10.2 [facility] ([place]) Comment on above: Performed By: #### C BC, ADIFF, ANEU, BMP, GFR #### [address] [address] Chloride [Moles/Vol] 109 mmol/L High 98-107 [facility] ([place]) Comment on above: Performed By: #### C BC, ADIFF, ANEU, BMP, GFR #### [address] [address] CO2 [Moles/Vol] 32 mmol/L High 23-31 [facility] ([place]) Comment on above: Performed By: #### C BC, ADIFF, ANEU, BMP, GFR #### [place] [address] Creatinine [Mass/Vol] 0.81 mg/dL Normal 0.70-1.30 [facility] ([place]) Comment on above: Performed By: #### C BC, ADIFF, ANEU, BMP, GFR #### [place] [address] Electrolyte Balance 6.0 mEq/L Normal 4.0-15.0 [facility] ([place]) Comment on above: Performed By: #### C BC, ADIFF, ANEU, BMP, GFR #### [place] [address] Glucose [Mass/Vol] 108 mg/dL Normal 83-110 [facility] ([place]) Comment on above: Performed By: #### C BC, ADIFF, ANEU, BMP, GFR #### [place] [address] Potassium [Moles/Vol] 3.2 mmol/L Low 3.5-5.1 [facility] ([place]) Comment on above: Performed By: #### C BC, ADIFF, ANEU, BMP, GFR #### [place] [address] Sodium [Moles/Vol] 147 mmol/L High 136-145 [facility] ([place]) Comment on above: Performed By: #### C BC, ADIFF, ANEU, BMP, GFR #### [place] [address] Urea nitrogen [Mass/Vol] 19 mg/dL High 7-18 [facility] ([place]) Comment on above: Performed By: #### C BC, ABDIEL, ANEU, BMP, GFR #### [place] [address] [place], [place] [address] LABORATORYOrdered By: SYSTEM SYSTEM on 04-26-2024 Calcium [...] 0.0 10 3/mcL Normal 0.0-0.2 [facility] ([place]) Comment on above: Performed By: #### C BC, ADIFF, ANEU, BMP, GFR #### [address] [address] Basophils/100 WBC (Bld) 0.4 % Normal 0.0-2.5 A [facility] ([place]) Comment on above: Performed By: #### C BC, ADIFF, ANEU, BMP, GFR #### [address] [address] Eosinophil, Absolute 0.3 10 3/mcL Normal 0.0-0.4 [facility] ([place]) Comment on above: Performed By: #### C BC, ADIFF, ANEU, BMP, GFR #### [address] [address] Eosinophils/100 WBC (Bld) 3.1 % Normal 0.0-7.0 [facility] ([place]) Comment on above: Performed By: #### C BC, ADIFF, ANEU, BMP, GFR #### [address] [address] Lymphocyte, Absolute 1.0 10 3/mcL Normal 0.8-3.9 [facility] ([place]) Comment on above: Performed By: #### C BC, ADIFF, ANEU, BMP, GFR #### [address] [address] Lymphocytes/100 WBC (Bld) 10.3 % Normal 10.0-50.0 [facility] ([place]) Comment on above: Performed By: #### C BC, ADIFF, ANEU, BMP, GFR #### [address] [address] Monocyte, Absolute 0.9 10 3/mcL Normal 0.2-1.0 [facility] ([place]) Comment on above: Performed By: #### C BC, ADIFF, ANEU, BMP, GFR #### [address] [address] Monocytes/100 WBC (Bld) 9.1 % Normal 1.7-13.0 A [facility] ([place]) Comment on above: Performed By: #### C BC, ADIFF, ANEU, BMP, GFR #### [address] [address] Neutrophils/100 WBC (Bld) 77.1 % Normal 37.0-80.0 [facility] ([place]) Comment on above: Performed By: #### C BC, ADIFF, ANEU, BMP, GFR #### [address] [address] .GFRon 04-25-2024 GFR 107 ml/min/1.73sqm Normal [facility] ([place]) Comment on above: Result Comment: GFR Population [...] C BC, ADIFF, ANEU, BMP, GFR #### [address] [address] GFR Non- 88 ml/min/1.73sqm Normal [facility] ([place]) Comment on above: Result Comment: GFR Population [...] C BC, ADIFF, ANEU, BMP, GFR #### [address] [address] .NEUABSon 04-25-2024 Neutrophil, Absolute 7.4 10 3/mcL High 2.9-6.2 [facility] ([place]) Comment on above: Performed By: #### C BC, ADIFF, ANEU, BMP, GFR #### [address] [address] BMPon 04-25-2024 BUN/Creatinine Ratio 31 ratio High 7-27 [facility] ([place]) Comment on above: Performed By: #### C BC, ADIFF, ANEU, BMP, GFR #### [address] [address] Calcium [Mass/Vol] 8.9 mg/dL Normal 8.4-10.2 [facility] ([place]) Comment on above: Performed By: #### C BC, ADIFF, ANEU, BMP, GFR #### [address] [address] Chloride [Moles/Vol] 110 mmol/L High 98-107 [facility] ([place]) Comment on above: Performed By: #### C BC, ADIFF, ANEU, BMP, GFR #### [address] [address] CO2 [Moles/Vol] 30 mmol/L Normal 23-31 [facility] ([place]) Comment on above: Performed By: #### C BC, ADIFF, ANEU, BMP, GFR #### [address] [address] Creatinine [Mass/Vol] 0.84 mg/dL Normal 0.70-1.30 [facility] ([place]) Comment on above: Performed By: #### C BC, ADIFF, ANEU, BMP, GFR #### [address] [address] Electrolyte Balance 8.0 mEq/L Normal 4.0-15.0 [facility] ([place]) Comment on above: Performed By: #### C BC, ADIFF, ANEU, BMP, GFR #### [address] [address] Glucose [Mass/Vol] 120 mg/dL High 83-110 [facility] ([place]) Comment on above: Performed By: #### C BC, ADIFF, ANEU, BMP, GFR #### [address] [address] Potassium [Moles/Vol] 3.5 mmol/L Normal 3.5-5.1 [facility] ([place]) Comment on above: Performed By: #### C BC, ADIFF, ANEU, BMP, GFR #### [address] [address] Sodium [Moles/Vol] 148 mmol/L High 136-145 [facility] ([place]) Comment on above: Performed By: #### C BC, ADIFF, ANEU, BMP, GFR #### [address] [address] Urea nitrogen [Mass/Vol] 26 mg/dL High 7-18 [facility] ([place]) Comment on above: Performed By: #### C BC, ADIFF, ANEU, BMP, GFR #### [address] [address] CBCon 04-25-2024 Erythrocyte distribution width (RBC) [Ratio] 14.1 % Normal 11.5-14.5 [facility] ([place]) Comment on above: Performed By: #### C BC, ADIFF, ANEU, BMP, GFR #### [place] [address] Hematocrit (Bld) [Volume fraction] 36.6 % Low 42.0-52.0 [facility] ([place]) Comment on above: Performed By: #### C BC, ADIFF, ANEU, BMP, GFR #### [place] [address] Hgb 12.8 G/dL Low 14.0-18.0 [facility] ([place]) Comment on above: Performed By: #### C BC, ADIFF, ANEU, BMP, GFR #### [address] [address] MCH (RBC) [Entitic mass] 32.9 pg High 27.0-31.2 [facility] ([place]) Comment on above: Performed By: #### C BC, ADIFF, ANEU, BMP, GFR #### [place] [address]507 MCHC 34.9 G/dL Normal 31.8-35.4 [facility] ([place]) Comment on above: Performed By: #### C BC, ADIFF, ANEU, BMP, GFR #### [place] [address]507 MCV (RBC) [Entitic vol] 94.1 fL High 80.0-94.0 A [facility] ([place]) Comment on above: Performed By: #### C BC, ADIFF, ANEU, BMP, GFR #### [address] [address] Platelet 218 10 3/mcL Normal 130-400 [facility] ([place]) Comment on above: Performed By: #### C BC, ADIFF, ANEU, BMP, GFR #### [address] [address] Platelet mean volume (Bld) [Entitic vol] 7.3 fL Low 7.4-10.4 [facility] ([place]) Comment on above: Performed By: #### C BC, ADIFF, ANEU, BMP, GFR #### [place] [address] RBC 3.89 10 6/mcL Low 4.04-6.13 [facility] ([place]) Comment on above: Performed By: #### C BC, ADIFF, ANEU, BMP, GFR #### [place] [address] WBC 9.6 10 3/mcL Normal 4.6-10.8 [facility] ([place]) Comment on above: Performed By: #### C BC, ADIFF, ANEU, BMP, GFR #### [address] [address] LABORATORYOrdered By: SYSTEM SYSTEM on 04-25-2024 Basophil, [...] 0.0 10 3/mcL Normal 0.0-0.2 [facility] ([place]) Comment on above: Performed By: #### C BC, ADIFF, ANEU, BMP, GFR #### [place] [address] [address] Basophils/100 WBC (Bld) 0.4 % Normal 0.0-2.5 A [facility] ([place]) Comment on above: Performed By: #### C BC, ADIFF, ANEU, BMP, GFR #### [address] [address] Eosinophil, Absolute 0.1 10 3/mcL Normal 0.0-0.4 [facility] ([place]) Comment on above: Performed By: #### C BC, ADIFF, ANEU, BMP, GFR #### [address] [address] Eosinophils/100 WBC (Bld) 0.6 % Normal 0.0-7.0 [facility] ([place]) Comment on above: Performed By: #### C BC, ADIFF, ANEU, BMP, GFR #### [address] [address] Lymphocyte, Absolute 1.1 10 3/mcL Normal 0.8-3.9 [facility] ([place]) Comment on above: Performed By: #### C BC, ADIFF, ANEU, BMP, GFR #### [address] [address] Lymphocytes/100 WBC (Bld) 8.7 % Low 10.0-50.0 [facility] ([place]) Comment on above: Performed By: #### C BC, ADIFF, ANEU, BMP, GFR #### [address] [address] Monocyte, Absolute 1.0 10 3/mcL Normal 0.2-1.0 [facility] ([place]) Comment on above: Performed By: #### C BC, ADIFF, ANEU, BMP, GFR #### [address] [address] Monocytes/100 WBC (Bld) 7.8 % Normal 1.7-13.0 Replaced by [facility] ([place]) Comment on above: Performed By: #### C BC, ADIFF, ANEU, BMP, GFR #### [address] [address] Neutrophils/100 WBC (Bld) 82.5 % High 37.0-80.0 [facility] ([place]) Comment on above: Performed By: #### C BC, ADIFF, ANEU, BMP, GFR #### [place] [address] [address] .GFRon 04-24-2024 GFR 107 ml/min/1.73sqm Normal [facility] ([place]) Comment on above: Result Comment: GFR Population [...] meters Performed By: #### M RSAPCR #### [place] [address] GFR Non- 88 ml/min/1.73sqm Normal [facility] ([place]) Comment on above: Result Comment: GFR Population [...] meters Performed By: #### M RSAPCR #### [address] [address] .NEUABSon 04-24-2024 Neutrophil, Absolute 10.2 10 3/mcL High 2.9-6.2 A [facility] ([place]) Comment on above: Performed By: #### M RSAPCR #### [facility] [address] [place] [address] CBCon 04-24-2024 Erythrocyte distribution width (RBC) [Ratio] 13.5 % Normal 11.5-14.5 [facility] ([place]) Comment on above: Performed By: #### C BC, ADIFF, ANEU, BMP, GFR #### [address] [address] Hematocrit (Bld) [Volume fraction] 37.7 % Low 42.0-52.0 [facility] ([place]) Comment on above: Performed By: #### C BC, ADIFF, ANEU, BMP, GFR #### [address] [address] Hgb 13.1 G/dL Low 14.0-18.0 [facility] ([place]) Comment on above: Performed By: #### C BC, ADIFF, ANEU, BMP, GFR #### [address] [address] MCH (RBC) [Entitic mass] 32.9 pg High 27.0-31.2 [facility] ([place]) Comment on above: Performed By: #### C BC, ADIFF, ANEU, BMP, GFR #### [address] [address] MCHC 34.8 G/dL Normal 31.8-35.4 [facility] ([place]) Comment on above: Performed By: #### C BC, ADIFF, ANEU, BMP, GFR #### [address] [address] MCV (RBC) [Entitic vol] 94.4 fL High 80.0-94.0 [facility] ([place]) Comment on above: Performed By: #### C BC, ADIFF, ANEU, BMP, GFR #### [address] [address] Platelet 226 10 3/mcL Normal 130-400 [facility] ([place]) Comment on above: Performed By: #### C BC, ADIFF, ANEU, BMP, GFR #### [place] [address] [address] Platelet mean volume (Bld) [Entitic vol] 7.5 fL Normal 7.4-10.4 [facility] ([place]) Comment on above: Performed By: #### C BC, ADIFF, ANEU, BMP, GFR #### [place] [address] [address] RBC 4.00 10 6/mcL Low 4.04-6.13 [facility] ([place]) Comment on above: Performed By: #### C BC, ADIFF, ANEU, BMP, GFR #### [place] [address] [address] WBC 12.3 10 3/mcL High 4.6-10.8 [facility] ([place]) Comment on above: Performed By: #### C BC, ADIFF, ANEU, BMP, GFR #### [address] [address] CMPon 04-24-2024 Albumin Level 3.2 G/dL Low 3.4-4.8 [facility] ([place]) Comment on above: Performed By: #### M RSAPCR #### [address] [address] Albumin/Globulin [Mass ratio] 1.1 {ratio} Normal 1.1-2.5 [facility] ([place]) Comment on above: Performed By: #### M RSAPCR #### [address] [address] ALP [Catalytic activity/Vol] 150 U/L High 40-135 [facility] ([place]) Comment on above: Performed By: #### M RSAPCR #### [address] [address] ALT [Catalytic activity/Vol] 90 U/L High 16-63 [facility] ([place]) Comment on above: Performed By: #### M RSAPCR #### [address] [address] AST [Catalytic activity/Vol] 28 U/L Normal 10-40 [facility] ([place]) Comment on above: Performed By: #### M RSAPCR #### [address] [address] Bili Total 0.5 mg/dL Normal 0.2-1.0 [facility] ([place]) Comment on above: Result Comment: Use of this assay is not recommended for patients undergoing treatment with eltrombopag due to the potential for falsely elevated results. Performed By: #### M RSAPCR #### [place] [id number] BUN/Creatinine Ratio 36 ratio High 7-27 [facility] ([place]) Comment on above: Performed By: #### M RSAPCR #### [place] [id number] Calcium [Mass/Vol] 8.8 mg/dL Normal 8.4-10.2 [facility] ([place]) Comment on above: Performed By: #### M RSAPCR #### [place] [address] Chloride [Moles/Vol] 109 mmol/L High 98-107 [facility] ([place]) Comment on above: Performed By: #### M RSAPCR #### [place] [id number] CO2 [Moles/Vol] 32 mmol/L High 23-31 [facility] ([place]) Comment on above: Performed By: #### M RSAPCR #### [place] [address] Creatinine [Mass/Vol] 0.84 mg/dL Normal 0.70-1.30 [facility] ([place]) Comment on above: Performed By: #### M RSAPCR #### [place] [id number] Electrolyte Balance 5.0 mEq/L Normal 4.0-15.0 [facility] ([place] Comment on above: Performed By: #### M RSAPCR #### [place] [id number] Globulin 2.9 G/dL Normal [facility] ([place]) Comment on above: Performed By: #### M RSAPCR #### [place] [id number] Glucose [Mass/Vol] 111 mg/dL High 83-110 [facility] ([place]) Comment on above: Performed By: #### M RSAPCR #### [address] [address] Potassium [Moles/Vol] 3.4 mmol/L Low 3.5-5.1 [facility] ([place]) Comment on above: Performed By: #### M RSAPCR #### [address] [address] Sodium [Moles/Vol] 146 mmol/L High 136-145 [facility] ([place]) Comment on above: Performed By: #### M RSAPCR #### [address] [address] Total Protein 6.1 G/dL Low 6.4-8.2 [facility] ([place]) Comment on above: Performed By: #### M RSAPCR #### [address] [address] Urea nitrogen [Mass/Vol] 30 mg/dL High 7-18 [facility] ([place]) Comment on above: Performed By: #### M RSAPCR #### [address] [address] LABORATORYOrdered By: SYSTEM SYSTEM on 04-24-2024 Albumin [...] C BC, ADIFF, ANEU, BMP, GFR #### [address] [address] Basophils/100 WBC (Bld) 0.1 % Normal 0.0-2.5 A O Workflow SS Comment on above: Performed By: #### C BC, ADIFF, ANEU, BMP, GFR #### [address] [address] Eosinophil, Absolute 0.0 103/mcL Normal 0.0-0.4 AO Workflow SS Comment on above: Performed By: #### C BC, ADIFF, ANEU, BMP, GFR #### [address] [address] Eosinophils/100 WBC (Bld) 0.1 % Normal 0.0-7.0 AO Workflow SS Comment on above: Performed By: #### C BC, ADIFF, ANEU, BMP, GFR #### [address] [address] Lymphocyte, Absolute 0.4 103/mcL Low 0.8-3.9 AO Workflow SS Comment on above: Performed By: #### C BC, ADIFF, ANEU, BMP, GFR #### [address] [address] Lymphocytes/100 WBC (Bld) 6.9 % Low 10.0-50.0 AO Workflow SS Comment on above: Performed By: #### C BC, ADIFF, ANEU, BMP, GFR #### [address] [address] Monocyte, Absolute 0.1 103/mcL Low 0.2-1.0 AO Wo rkflow SS Comment on above: Performed By: #### C BC, ADIFF, ANEU, BMP, GFR #### [address] [address] Monocytes/100 WBC (Bld) 2.7 % Normal 1.7-13.0 A O Workflow SS Comment on above: Performed By: #### C BC, ADIFF, ANEU, BMP, GFR #### [address] [address] Neutrophils/100 WBC (Bld) 90.2 % High 37.0-80.0 AO Workflow SS Comment on above: Performed By: #### C BC, ADIFF, ANEU, BMP, GFR #### [address] [address] .GFRon 04-23-2024 GFR 95 ml/min/1.73sqm Normal [facility] ([place]) Comment on above: Result Comment: GFR Population [...] C BC, ADIFF, ANEU, BMP, GFR #### [address] [address] GFR Non- 79 ml/min/1.73sqm Normal [facility] ([place]) Comment on above: Result Comment: GFR Population [...] C BC, ADIFF, ANEU, BMP, GFR #### [place] [address] .NEUABSOrdered By: SYSTEM SY STEM on 04-23-2024 Neutrophil, Absolute 4.8 103/mcL Normal 2.9-6.2 AO Workflow SS Comment on above: Performed By: #### C BC, ADIFF, ANEU, BMP, GFR #### [place] [address] .Urinalysis Microscopic (AO) on 04-23-2024 UA RBC None Seen Normal None Seen [facility] ([place]) Comment on above: Performed By: #### C BC, ADIFF, ANEU, BMP, GFR #### [place] [address] UA Squam Epithelial None Seen Normal None Seen [facility] ([place]) Comment on above: Performed By: #### C BC, ADIFF, ANEU, BMP, GFR #### [place] [address] UA WBC None Seen Normal None Seen [facility] ([place]) Comment on above: Performed By: #### C BC, ADIFF, ANEU, BMP, GFR #### [place] [address] CBCOrdered By: SYSTEM SYSTEM on 04-23-2024 Erythrocyte distribution width (RBC) [Ratio] 13.5 % Normal 11.5-14.5 AO Workflow SS Comment on above: Performed By: #### C BC, ADIFF, ANEU, BMP, GFR #### [address] [address] Hematocrit (Bld) [Volume fraction] 38.7 % Low 42.0-52.0 AO Workflow SS Comment on above: Performed By: #### C BC, ADIFF, ANEU, BMP, GFR #### [address] [address] MCH (RBC) [Entitic mass] 32.6 pg High 27.0-31.2 AO Workflow SS Comment on above: Performed By: #### C BC, ADIFF, ANEU, BMP, GFR #### [address] [address] MCHC 34.6 G/dL Normal 31.8-35.4 AO Workflow SS Comment on above: Performed By: #### C BC, ADIFF, ANEU, BMP, GFR #### [address] [address] MCV (RBC) [Entitic vol] 94.4 fL High 80.0-94.0 A O Workflow SS Comment on above: Performed By: #### C BC, ADIFF, ANEU, BMP, GFR #### [address] [address] Platelet mean volume (Bld) [Entitic vol] 7.7 fL Normal 7.4-10.4 AO Workflow SS Comment on above: Performed By: #### C BC, ADIFF, ANEU, BMP, GFR #### [address] [address] CBCon 04-23-2024 Hgb 13.4 G/dL Low 14.0-18.0 [facility] ([place]) Comment on above: Performed By: #### C BC, ADIFF, ANEU, BMP, GFR #### [address] [address] Platelet 235 10 3/mcL Normal 130-400 [facility] ([place]) Comment on above: Performed By: #### C BC, ADIFF, ANEU, BMP, GFR #### [place] [id number] RBC 4.10 10 6/mcL Normal 4.04-6.13 [facility] ([place]) Comment on above: Performed By: #### C BC, ADIFF, ANEU, BMP, GFR #### [place] [id number] WBC 5.3 10 3/mcL Normal 4.6-10.8 [facility] ([place]) Comment on above: Performed By: #### C BC, ADIFF, ANEU, BMP, GFR #### [place] [id number] CMPon 04-23-2024 Albumin Level 3.1 G/dL Low 3.4-4.8 [facility] ([place]) Comment on above: Performed By: #### C BC, ADIFF, ANEU, BMP, GFR #### [place] [id number] ALT [Catalytic activity/Vol] 125 U/L High 16-63 [facility] ([place]) Comment on above: Performed By: #### C BC, ADIFF, ANEU, BMP, GFR #### [place] [id number] AST [Catalytic activity/Vol] 79 U/L High 10-40 [facility] ([place]) Comment on above: Performed By: #### C BC, ADIFF, ANEU, BMP, GFR #### [place] [id number] Bili Total 0.4 mg/dL Normal 0.2-1.0 [facility] ([place]) Comment on above: Result Comment: Use of this assay is not recommended for patients undergoing treatment with eltrombopag due to the potential for falsely elevated results. Performed By: #### C BC, ADIFF, ANEU, BMP, GFR #### [place] [address]507 BUN/Creatinine Ratio 33 ratio High 7-27 [facility] ([place]) Comment on above: Performed By: #### C BC, ADIFF, ANEU, BMP, GFR #### [address] [address] Calcium [Mass/Vol] 8.7 mg/dL Normal 8.4-10.2 [facility] ([place]) Comment on above: Performed By: #### C BC, ADIFF, ANEU, BMP, GFR #### [address] [address] Chloride [Moles/Vol] 107 mmol/L Normal 98-107 [facility] ([place]) Comment on above: Performed By: #### C BC, ADIFF, ANEU, BMP, GFR #### [place] [address] CO2 [Moles/Vol] 29 mmol/L Normal 23-31 [facility] ([place]) Comment on above: Performed By: #### C BC, ADIFF, ANEU, BMP, GFR #### [place] [address] Creatinine [Mass/Vol] 0.93 mg/dL Normal 0.70-1.30 [facility] ([place]) Comment on above: Performed By: #### C BC, ADIFF, ANEU, BMP, GFR #### [address] [address] Electrolyte Balance 8.0 mEq/L Normal 4.0-15.0 [facility] ([place]) Comment on above: Performed By: #### C BC, ADIFF, ANEU, BMP, GFR #### [address] [address] Glucose [Mass/Vol] 173 mg/dL High 83-110 [facility] ([place]) Comment on above: Performed By: #### C BC, ADIFF, ANEU, BMP, GFR #### [address] [address] Potassium [Moles/Vol] 3.9 mmol/L Normal 3.5-5.1 [facility] ([place]) Comment on above: Performed By: #### C BC, ADIFF, ANEU, BMP, GFR #### [place] [phone] Sodium [Moles/Vol] 144 mmol/L Normal 136-145 [facility] ([place]) Comment on above: Performed By: #### C BC, ADIFF, ANEU, BMP, GFR #### [address] [address] Total Protein 6.2 G/dL Low 6.4-8.2 [facility] ([place]) Comment on above: Performed By: #### C BC, ADIFF, ANEU, BMP, GFR #### [place] [address] Urea nitrogen [Mass/Vol] 31 mg/dL High 7-18 [facility] ([place]) Comment on above: Performed By: #### C BC, ADIFF, ANEU, BMP, GFR #### [place] [address] CMPOrdered By: SYSTEM SYSTEM on 04-23-2024 Albumin/Globulin [Mass ratio] 1.0 {ratio} Low 1.1-2.5 AO ADM SS Comment on above: Performed By: #### C BC, ADIFF, ANEU, BMP, GFR #### [place] [address] ALP [Catalytic activity/Vol] 183 U/L High 40-135 AO ADM SS Comment on above: Performed By: #### C BC, ADIFF, ANEU, BMP, GFR #### [place] [address] Globulin 3.1 G/dL Normal AO ADM SS Comment on above: Performed By: #### C BC, ADIFF, ANEU, BMP, GFR #### [place] [address] LABORATORYOrdered By: Tan De León on 04-23-2024 Adenovirus DNA DARYA+non-probe Ql (Nph) Not Detected *NA* (04/23/24 10:33 AM) Invalid Interpretation Code Not Detected AH Auto Viro/Sero SS B. parapertussis [id number] DNA DARYA+non-probe Ql (Nph) Not Detected *NA* [...] his assay has been validated in the [facility] for use with nasopharyngeal specimens in [facility]. If a non-validated specimen or test collection [...] 1 (04/23/24 3:29 AM) Normal Not Detected [facility]Sero SS Comment on above: Result Comment: [place] [id number] MRSA PCR Int MRSA DNA not detected [...] BC, ADIFF, ANEU, BMP, GFR #### [place] [address] MRI SPINE LUMBAR W/O CONTRAS Ton 04-23-2024 [...] severe facet arthrosis causes severe left and arxw-kz-eqkseocd right foraminal narrowing without central canal stenosis. [...] severe bilateral L4-5, and severe left and fodn-gy-wgbyimmc right at L5-S1. 4. Level by level findings as described. Interpreted by: Modesto Lunsford MD Preliminary Report By: Modesto Lunsford MD Electronically signed By Modesto Lunsford MD Dictated Date: 04/23/2024 10:34:51 AM Prelim Date: 04/23/2024 10:53:15 AM Sign Date: 04/23/2024 10:53:15 AM Ordering Provider: OSMEL BURRELL Normal [facility] ([place]) MRSAPCRon 04-23-2024 MRSA (PCR) Not detected Normal Not Detected [facility]) Comment on above: Result Comment: [place] [id number] Performed By: #### M RSAPCR #### [address] [address] MRSA PCR Int Normal [facility] ([place]) Comment on above: Result Comment: MRSA DNA [...] Below Performed By: #### M RSAPCR #### [address] [address] MYCOon 04-23-2024 Mycoplasma IgM Positive Abnormal [facility] ([place]) Comment on above: Order Comment: Resul t [place] [facility] [place] [id number] 04/23/2024 15:31:57 EDT.Called and faxed to Archie Mayen @[address] [place] [address] Result Comment: INTE RPRETATION OF MYCOPLASMA IgM: Negative: IgM to M. pneumoniae Absent, or at levels below the assay limit of detection. Positive: IgM to M. pneumoniae Present. Invalid: Test results are invalid due to invalid internal control. Assay was performed in duplicate. Repeat testing is suggested if clinically indicated. Performed By: #### C ABDIEL CHAND ANEU, BMP, GFR #### [place] [address] [address] RESCVIDon 04-23-2024 Adenovirus Not detected Normal Not Detected [facility]) Comment on above: Performed By: #### C BC, ADIFF, ANEU, BMP, GFR #### [address] [address] Bordetella Parapertussis Not detected Normal Not Detected [facility] ([place] Comment on above: Performed By: #### C BC, ADIFF, ANEU, BMP, GFR #### [address] [address] Bordetella Pertussis Not detected Normal Not Detected [facility] ([place]) Comment on above: Performed By: #### C BC, ADIFF, ANEU, BMP, GFR #### [address] [address] Chlamydophila pneumoniae Not detected Normal Not Detected [facility] ([place]) Comment on above: Performed By: #### C BC, ADIFF, ANEU, BMP, GFR #### [address] [address] Coronavirus 229E (Not COVID-19) Not detected Normal Not Detected [facility] ([place]) Comment on above: Performed By: #### C BC, ADIFF, ANEU, BMP, GFR #### [address] [address] Coronavirus HKU1 (Not COVID-19) Not detected Normal Not Detected [facility] ([place]) Comment on above: Performed By: #### C BC, ADIFF, ANEU, BMP, GFR #### [address] [address] Coronavirus NL63 (Not COVID-19) Not detected Normal Not Detected [facility] ([place]) Comment on above: Performed By: #### C BC, ADIFF, ANEU, BMP, GFR #### [address] [address] Coronavirus OC43 (Not COVID-19) Not detected Normal Not Detected [facility] ([place]) Comment on above: Performed By: #### C BC, ADIFF, ANEU, BMP, GFR #### [address] [address] Human Metapneumovirus Not detected Normal Not Detected [facility] ([place]) Comment on above: Performed By: #### C BC, ADIFF, ANEU, BMP, GFR #### [address] [address] Influenza A Not detected Normal Not Detected [facility] ([place] Comment on above: Performed By: #### C BC, ADIFF, ANEU, BMP, GFR #### [address] [address] Influenza B Not detected Normal Not Detected [facility] ([place] Comment on above: Performed By: #### C BC, ADIFF, ANEU, BMP, GFR #### [address] [address] Mycoplasma pneumoniae Not detected Normal Not Detected [facility] ([place] Comment on above: Performed By: #### C BC, ADIFF, ANEU, BMP, GFR #### [place] [address] Parainfluenza 1 Not detected Normal Not Detected [facility] ([place] Comment on above: Performed By: #### C BC, ADIFF, ANEU, BMP, GFR #### [address] [address] Parainfluenza 2 Not detected Normal Not Detected [facility] ([place] Comment on above: Performed By: #### C BC, ADIFF, ANEU, BMP, GFR #### [address] [address] Parainfluenza 3 Not detected Normal Not Detected [facility] ([place] Comment on above: Performed By: #### C BC, ADIFF, ANEU, BMP, GFR #### [address] [address] Parainfluenza 4 Not detected Normal Not Detected [facility] ([place] Comment on above: Performed By: #### C BC, ADIFF, ANEU, BMP, GFR #### [address] [address] Respiratory Syncytial Virus Not detected Normal Not Detected [facility] ([place] Comment on above: Performed By: #### C BC, ADIFF, ANEU, BMP, GFR #### [place] [address] [place], [place] [address] Rhinovirus/Enterovirus Not detected Normal Not Detecte d [facility] ([place]) Comment on above: Performed By: #### C MANNIE, ABDIEL, ANEU, BMP, GFR #### [place] [address] [place], [place] [address] SARS-CoV-2 (COVID-19) RNA DARYA+probe Ql (Unsp spec) Not detected Normal Not Detected [facility] ([place]) Comment on above: Result Comment: This assay has been validated in the [facility] for use with nasopharyngeal specimens in [facility]. If a non-validated specimen or test collection [...] health authorities. Performed By: #### C BC, ADROSIE, ANEU, BMP, GFR #### [place] [address] [place], [place] [address] UAon 04-23-2024 Color (U) Dark yellow Normal [facility] ([place]) Comment on above: Performed By: #### C BC, ADIFF, ANEU, BMP, GFR #### [address] [address] Glucose (U) [Mass/Vol] Negative Normal Negative [facility] ([place]) Comment on above: Performed By: #### C BC, ADIFF, ANEU, BMP, GFR #### [address] [address] Ketones Ql (U) 15 mg/dL Abnormal Negative [facility] ([place]) Comment on above: Performed By: #### C BC, ADIFF, ANEU, BMP, GFR #### [address] [address] UA Appear Clear Normal Clear [facility] ([place] Comment on above: Performed By: #### C BC, ADIFF, ANEU, BMP, GFR #### [address] [address] UA Blood Negative Normal Negative [facility] ([place] Comment on above: Performed By: #### C BC, ADIFF, ANEU, BMP, GFR #### [address] [address] UA Leuk Est Negative Normal Negative [facility] ([place] Comment on above: Performed By: #### C BC, ADIFF, ANEU, BMP, GFR #### [address] [address] UA Nitrite Negative Normal Negative [facility] ([place]) Comment on above: Performed By: #### C BC, ADIFF, ANEU, BMP, GFR #### [address] [address] UA pH 6.0 Normal 5.0 - 8.0 [facility] ([place]) Comment on above: Performed By: #### C BC, ADIFF, ANEU, BMP, GFR #### [address] [address] UA Protein 30 mg/dL Normal Negative [facility] ([place]) Comment on above: Performed By: #### C BC, ADIFF, ANEU, BMP, GFR #### [address] [address] UA Spec Grav >=1.030 Abnormal 1.015-1.025 [facility] ([place]) Comment on above: Performed By: #### C BC, ADIFF, ANEU, BMP, GFR #### [address] [address] UA Specimen Type Clean Catch Normal [facility] ([place]) Comment on above: Performed By: #### C BC, ADIFF, ANEU, BMP, GFR #### [address] [address] UA Urobilinogen >=8.0 Abnormal 0.2-1.0 [facility] ([place]) Comment on above: Performed By: #### C BC, ADIFF, ANEU, BMP, GFR #### [address] [address] Urobilinogen (U) [Mass/Vol] Negative Normal Negative [facility] ([place]) Comment on above: Performed By: #### C BC, ADIFF, ANEU, BMP, GFR #### [address] [address] .Auto Diffon 04-22-2024 Basophil, Absolute 0.1 10 3/mcL Normal 0.0-0.2 [facility] ([place]) Comment on above: Performed By: #### M RSAPCR #### [address] [address] Basophils/100 WBC (Bld) 0.6 % Normal 0.0-2.5 A [facility] ([place]) Comment on above: Performed By: #### M RSAPCR #### [address] [address] Eosinophil, Absolute 0.4 10 3/mcL Normal 0.0-0.4 [facility] ([place]) Comment on above: Performed By: #### M RSAPCR #### [address] [address] Eosinophils/100 WBC (Bld) 3.4 % Normal 0.0-7.0 [facility] ([place]) Comment on above: Performed By: #### M RSAPCR #### [facility] [address] [place] [address] Lymphocyte, Absolute 0.7 10 3/mcL Low 0.8-3.9 [facility] ([place]) Comment on above: Performed By: #### M RSAPCR #### [facility] [address] [place] [address] Lymphocytes/100 WBC (Bld) 6.6 % Low 10.0-50.0 [facility] ([place]) Comment on above: Performed By: #### M RSAPCR #### [address] [address] Monocyte, Absolute 0.9 10 3/mcL Normal 0.2-1.0 [facility] ([place]) Comment on above: Performed By: #### M RSAPCR #### [address] [address] Monocytes/100 WBC (Bld) 8.5 % Normal 1.7-13.0 A [facility] ([place]) Comment on above: Performed By: #### M RSAPCR #### [address] [address] Neutrophils/100 WBC (Bld) 80.9 % High 37.0-80.0 [facility] ([place]) Comment on above: Performed By: #### M RSAPCR #### [address] [address] .GFRon 04-22-2024 GFR Non- 115 ml/min/1.73sqm Normal [facility] ([place]) Comment on above: Result Comment: GFR Population [...] meters Performed By: #### M RSAPCR #### [address] [address] GFR 139 ml/min/1.73sqm Normal [facility] ([place]) Comment on above: Result Comment: GFR Population [...] meters Performed By: #### M RSAPCR #### [place] [id number] .MDWon 04-22-2024 Monocyte Distribution Width 19.45 Normal 0.00-20.00 [facility] ([place]) Comment on above: Result Comment: For ED adult patients suspected of sepsis, MDW<=20.0 does not rule out sepsis or risk of sepsis Performed By: #### M RSAPCR #### [address] [address] .NEUABSon 04-22-2024 Neutrophil, Absolute 8.8 10 3/mcL High 2.9-6.2 [facility] ([place]) Comment on above: Performed By: #### M RSAPCR #### [address] [address] BMPon 04-22-2024 BUN/Creatinine Ratio 33 ratio High 7-27 [facility] ([place]) Comment on above: Performed By: #### M RSAPCR #### [address] [address] Calcium [Mass/Vol] 8.9 mg/dL Normal 8.4-10.2 [facility] ([place]) Comment on above: Performed By: #### M RSAPCR #### [address] [address] Chloride [Moles/Vol] 106 mmol/L Normal 98-107 [facility] ([place]) Comment on above: Performed By: #### M RSAPCR #### [address] [address] CO2 [Moles/Vol] 30 mmol/L Normal 23-31 [facility] ([place]) Comment on above: Performed By: #### M RSAPCR #### [address] [address] Creatinine [Mass/Vol] 0.67 mg/dL Low 0.70-1.30 [facility] ([place]) Comment on above: Performed By: #### M RSAPCR #### [address] [address] Electrolyte Balance 9.0 mEq/L Normal 4.0-15.0 [facility] ([place]) Comment on above: Performed By: #### M RSAPCR #### [address] [address] Glucose [Mass/Vol] 111 mg/dL High 83-110 [facility] ([place]) Comment on above: Performed By: #### M RSAPCR #### [address] [address] Potassium [Moles/Vol] 3.9 mmol/L Normal 3.5-5.1 [facility] ([place]) Comment on above: Performed By: #### M RSAPCR #### [address] [address] Sodium [Moles/Vol] 145 mmol/L Normal 136-145 [facility] ([place]) Comment on above: Performed By: #### M RSAPCR #### [address] [address] Urea nitrogen [Mass/Vol] 22 mg/dL High 7-18 [facility] ([place]) Comment on above: Performed By: #### M RSAPCR #### [address] [address] CBCon 04-22-2024 Erythrocyte distribution width (RBC) [Ratio] 13.6 % Normal 11.5-14.5 [facility] ([place]) Comment on above: Performed By: #### M RSAPCR #### [place] [address] Hematocrit (Bld) [Volume fraction] 42.5 % Normal 42.0-52.0 [facility] ([place]) Comment on above: Performed By: #### M RSAPCR #### [place] [address] Hgb 14.8 G/dL Normal 14.0-18.0 [facility] ([place]) Comment on above: Performed By: #### M RSAPCR #### [place] [address] MCH (RBC) [Entitic mass] 32.9 pg High 27.0-31.2 [facility] ([place]) Comment on above: Performed By: #### M RSAPCR #### [place] [address] MCHC 34.7 G/dL Normal 31.8-35.4 [facility] ([place] Comment on above: Performed By: #### M RSAPCR #### [place] [address] MCV (RBC) [Entitic vol] 94.8 fL High 80.0-94.0 A [facility] ([place]) Comment on above: Performed By: #### M RSAPCR #### [place] [address] Platelet 223 10 3/mcL Normal 130-400 [facility] ([place]) Comment on above: Performed By: #### M RSAPCR #### [place] [id number] Platelet mean volume (Bld) [Entitic vol] 7.3 fL Low 7.4-10.4 [facility] ([place] Comment on above: Performed By: #### M RSAPCR #### [place] [address] RBC 4.49 10 6/mcL Normal 4.04-6.13 [facility] ([place] Comment on above: Performed By: #### M RSAPCR #### [place] [address] WBC 10.8 10 3/mcL Normal 4.6-10.8 [facility] ([place]) Comment on above: Performed By: #### M RSAPCR #### [place] [address] CVFLURVon 04-22-2024 FLU A PCR Negative Normal Negative [facility] ([place]) Comment on above: Performed By: #### M RSAPCR #### [place] [address] FLU B PCR Negative Normal Negative [facility] ([place]) Comment on above: Performed By: #### M RSAPCR #### [place] [address] RSV PCR Negative Normal Negative [facility] ([place]) Comment on above: Performed By: #### M RSAPCR #### [place] [address] SARS-CoV-2 (COVID-19) RNA DARYA+probe Ql (Unsp spec) Negative Normal Negative [facility] ([place]) Comment on above: Result Comment: Resu lts [...] results. Performed By: #### M RSAPCR #### [place] [address] LABORATORYOrdered By: Leida Combs on 04-22-2024 M. [...] ng/L Male: 0-76 ng/L Testing performed on [employer] using a homogeneous sandwich chemiluminescent immunoassay based on [employer] technology. No Panel Informationon 04-22 Legionella Urine Ag Presumptive negative for L. pneumophila serogroup 1 antigen in urine, suggesting no recent or current infection. Legionnaire's disease cannot be ruled out since other serogroups and species may also cause disease. [facility] Streptococcus Pneumoniae Urine Antig Presumptive negative for pneumococcal pneumonia, suggesting no current or recent pneumococcal infection. Infection due to Strep pneumoniae cannot be ruled out since the antigen present in the sample may be below the detection limit of the test. [facility] Comment on above: This test has not be en evaluated on patients taking antibiotics for greater than 24 hours or on patients who have recently completed an antibiotic regimen. The accuracy of this test has not been proven in young children. PBNPon 04-22-2024 Natriuretic peptide B (Bld) [Mass/Vol] 525 pg/mL High 0-450 [facility] ([place]) Comment on above: Result Comment: NT-p roBNP results of less than 300 pg/mL effectively rules out acute congestive heart failure with 99% negative predictive value. Performed By: #### C BC, ADIFF, ANEU, FERR, FE, CMP, GFR, LIPID #### [facility] [address] [place], [place] [address] #### B12 #### [facility] [address] [place] [id number] [place], [place] [address]Son 04-22-2024 High Sensitivity Troponin I 6 ng/L Normal 0-76 [facility] ([place]) Comment on above: Result Comment: High Sensitive Troponin I Reference Ranges: Female: 0-51 ng/L Male: 0-76 ng/L Testing performed on [employer] using a homogeneous sandwich chemiluminescent immunoassay based on [employer] technology. Performed By: #### C BC, ADIFF, ANEU, FERR, FE, CMP, GFR, LIPID #### [facility] [address] [place], [place] [address] #### B12 #### [address] [address] XR CHEST 1 VIEWon 04-22-2024 XR CHEST [...] 04/22/2024 10:33:35 PM Ordering Provider: ANTOINE [place] [facility] ([place] XR SPINE LUMBAR AP/LATon XR SPINE LUMBAR [...] with vertebral cement augmentation. No significant spondylolisthesis. Bhcn-ew-wsdokmju multilevel degenerative changes with intervertebral disc height [...] 04/22/2024 10:32:15 PM Ordering Provider: ANTOINE [place] [facility] ([place]) B12on 02-20-2024 Cobalamin (Vitamin B12) [Mass/Vol] 696 pg/mL Normal 211-911 [facility] ([place] Comment on above: Performed By: #### C BC, ADIFF, ANEU, BMP, GFR #### [address] [address] .Auto Diffon 02-19-2024 Basophil, Absolute 0.0 10 3/mcL Normal 0.0-0.2 [facility]) Comment on above: Performed By: #### C BC, ADIFF, ANEU, FERR, FE, CMP, GFR, LIPID #### [place] [address] #### B12 #### [address] [address] Basophils/100 WBC (Bld) 0.5 % Normal 0.0-2.5 A [facility] ([place]) Comment on above: Performed By: #### C BC, ADIFF, ANEU, FERR, FE, CMP, GFR, LIPID #### [place] [address] #### B12 #### [address] [address] Eosinophil, Absolute 0.2 10 3/mcL Normal 0.0-0.4 [facility] ([place]) Comment on above: Performed By: #### C BC, ADIFF, ANEU, FERR, FE, CMP, GFR, LIPID #### [address] [address] #### B12 #### [address] [address] Eosinophils/100 WBC (Bld) 3.2 % Normal 0.0-7.0 [facility] ([place]) Comment on above: Performed By: #### C BC, ADIFF, ANEU, FERR, FE, CMP, GFR, LIPID #### [place] [address] #### B12 #### [address] [address] Lymphocyte, Absolute 0.9 10 3/mcL Normal 0.8-3.9 [facility] ([place]) Comment on above: Performed By: #### C BC, ADIFF, ANEU, FERR, FE, CMP, GFR, LIPID #### [place] [address] #### B12 #### [address] [address] Lymphocytes/100 WBC (Bld) 12.6 % Normal 10.0-50.0 [facility] ([place]) Comment on above: Performed By: #### C BC, ADIFF, ANEU, FERR, FE, CMP, GFR, LIPID #### [place] [address] #### B12 #### [address] [address] Monocyte, Absolute 0.8 10 3/mcL Normal 0.2-1.0 [facility] ([place]) Comment on above: Performed By: #### C BC, ADIFF, ANEU, FERR, FE, CMP, GFR, LIPID #### [place] [address] #### B12 #### [address] [address] Monocytes/100 WBC (Bld) 10.9 % Normal 1.7-13.0 A [facility] ([place]) Comment on above: Performed By: #### C BC, ADIFF, ANEU, FERR, FE, CMP, GFR, LIPID #### [address] [address] #### B12 #### [address] [address] Neutrophils/100 WBC (Bld) 72.8 % Normal 37.0-80.0 [facility] ([place]) Comment on above: Performed By: #### C BC, ADIFF, ANEU, FERR, FE, CMP, GFR, LIPID #### [address] [address] #### B12 #### [address] [address] .GFRon 02-19-2024 GFR 99 ml/min/1.73sqm Normal [facility] ([place]) Comment on above: Result Comment: GFR Population [...] C BC, ADIFF, ANEU, BMP, GFR #### [address] [address] GFR Non- 82 ml/min/1.73sqm Normal [facility] ([place]) Comment on above: Result Comment: GFR Population [...] C BC, ADIFF, ANEU, BMP, GFR #### [place] [address] .NEUABSon 02-19-2024 Neutrophil, Absolute 5.1 10 3/mcL Normal 2.9-6.2 [facility] ([place]) Comment on above: Performed By: #### C BC, ADIFF, ANEU, FERR, FE, CMP, GFR, LIPID #### [place] [address] #### B12 #### [place] [address] CBCon 02-19-2024 Erythrocyte distribution width (RBC) [Ratio] 14.3 % Normal 11.5-14.5 [facility] ([place]) Comment on above: Performed By: #### C BC, ADIFF, ANEU, FERR, FE, CMP, GFR, LIPID #### [place] [address] #### B12 #### [place] [address] Hematocrit (Bld) [Volume fraction] 37.8 % Low 42.0-52.0 [facility] ([place]) Comment on above: Performed By: #### C BC, ADIFF, ANEU, FERR, FE, CMP, GFR, LIPID #### [place] [address] #### B12 #### [place] [address] Hgb 13.1 G/dL Low 14.0-18.0 [facility] ([place]) Comment on above: Performed By: #### C BC, ADIFF, ANEU, FERR, FE, CMP, GFR, LIPID #### [place] [address] #### B12 #### [place] [address] MCH (RBC) [Entitic mass] 32.6 pg High 27.0-31.2 [facility] ([place]) Comment on above: Performed By: #### C BC, ADIFF, ANEU, FERR, FE, CMP, GFR, LIPID #### [place] [address] #### B12 #### [place] [address] MCHC 34.7 G/dL Normal 31.8-35.4 [facility] ([place]) Comment on above: Performed By: #### C BC, ADIFF, ANEU, FERR, FE, CMP, GFR, LIPID #### [place] [address] #### B12 #### [place] [address] MCV (RBC) [Entitic vol] 94.1 fL High 80.0-94.0 A [facility] ([place]) Comment on above: Performed By: #### C BC, ADIFF, ANEU, FERR, FE, CMP, GFR, LIPID #### [place] [address] #### B12 #### [place] [address] Platelet 233 10 3/mcL Normal 130-400 [facility] ([place]) Comment on above: Performed By: #### C BC, ADIFF, ANEU, FERR, FE, CMP, GFR, LIPID #### [place] [address] #### B12 #### [place] [address] Platelet mean volume (Bld) [Entitic vol] 6.9 fL Low 7.4-10.4 [facility] ([place]) Comment on above: Performed By: #### C BC, ADIFF, ANEU, FERR, FE, CMP, GFR, LIPID #### [address] [address] #### B12 #### [place] [address] RBC 4.02 10 6/mcL Low 4.04-6.13 [facility] ([place]) Comment on above: Performed By: #### C BC, ADIFF, ANEU, FERR, FE, CMP, GFR, LIPID #### [place] [address] #### B12 #### [place] [address] WBC 7.0 10 3/mcL Normal 4.6-10.8 [facility] ([place]) Comment on above: Performed By: #### C BC, ADIFF, ANEU, FERR, FE, CMP, GFR, LIPID #### [place] [address] #### B12 #### [place] [address] CMPon 02-19-2024 Albumin Level 3.6 G/dL Normal 3.4-4.8 [facility] ([place]) Comment on above: Performed By: #### C BC, ADIFF, ANEU, BMP, GFR #### [address] [address] Albumin/Globulin [Mass ratio] 1.2 {ratio} Normal 1.1-2.5 [facility] ([place]) Comment on above: Performed By: #### C BC, ADIFF, ANEU, BMP, GFR #### [address] [address] ALP [Catalytic activity/Vol] 102 U/L Normal 40-135 [facility] ([place]) Comment on above: Performed By: #### C BC, ADIFF, ANEU, BMP, GFR #### [address] [address] ALT [Catalytic activity/Vol] 24 U/L Normal 16-63 [facility] ([place]) Comment on above: Performed By: #### C BC, ADIFF, ANEU, BMP, GFR #### [address] [address] AST [Catalytic activity/Vol] 14 U/L Normal 10-40 [facility] ([place]) Comment on above: Performed By: #### C BC, ADIFF, ANEU, BMP, GFR #### [address] [address] Bili Total 0.5 mg/dL Normal 0.2-1.0 [facility] ([place]) Comment on above: Result Comment: Use of this assay is not recommended for patients undergoing treatment with eltrombopag due to the potential for falsely elevated results. Performed By: #### C BC, ADIFF, ANEU, BMP, GFR #### [address] [address] BUN/Creatinine Ratio 23 ratio Normal 7-27 [facility] ([place]) Comment on above: Performed By: #### C BC, ADIFF, ANEU, BMP, GFR #### [address] [address] Calcium [Mass/Vol] 8.7 mg/dL Normal 8.4-10.2 [facility] ([place]) Comment on above: Performed By: #### C BC, ADIFF, ANEU, BMP, GFR #### [address] [address] Chloride [Moles/Vol] 104 mmol/L Normal 98-107 [facility] ([place]) Comment on above: Performed By: #### C BC, ADIFF, ANEU, BMP, GFR #### [address] [address] CO2 [Moles/Vol] 29 mmol/L Normal 23-31 [facility] ([place]) Comment on above: Performed By: #### C BC, ADIFF, ANEU, BMP, GFR #### [address] [address] Creatinine [Mass/Vol] 0.90 mg/dL Normal 0.70-1.30 [facility] ([place]) Comment on above: Performed By: #### C BC, ADIFF, ANEU, BMP, GFR #### [address] [address] Electrolyte Balance 10.0 mEq/L Normal 4.0-15.0 [facility] ([place]) Comment on above: Performed By: #### C BC, ADIFF, ANEU, BMP, GFR #### [address] [address] Globulin 2.9 G/dL Normal [facility] ([place]) Comment on above: Performed By: #### C BC, ADIFF, ANEU, BMP, GFR #### [address] [address] Glucose [Mass/Vol] 105 mg/dL Normal 83-110 [facility] ([place]) Comment on above: Performed By: #### C BC, ADIFF, ANEU, BMP, GFR #### [address] [address] Potassium [Moles/Vol] 4.1 mmol/L Normal 3.5-5.1 [facility] ([place]) Comment on above: Performed By: #### C BC, ADIFF, ANEU, BMP, GFR #### [address] [address] Sodium [Moles/Vol] 143 mmol/L Normal 136-145 [facility] ([place]) Comment on above: Performed By: #### C BC, ADIFF, ANEU, BMP, GFR #### [address] [address] Total Protein 6.5 G/dL Normal 6.4-8.2 [facility] ([place]) Comment on above: Performed By: #### C BC, ADIFF, ANEU, BMP, GFR #### [address] [address] Urea nitrogen [Mass/Vol] 21 mg/dL High 7-18 [facility] ([place]) Comment on above: Performed By: #### C BC, ADIFF, ANEU, BMP, GFR #### [address] [address] FEon 02-19-2024 Iron [Mass/Vol] 79 ug/dL Normal 65-175 [facility] ([place]) Comment on above: Performed By: #### C BC, ADIFF, ANEU, BMP, GFR #### [address] [address] Saturnino 02-19-2024 Ferritin [Mass/Vol] 511.0 ng/mL High 26.0-388.0 [facility] ([place]) Comment on above: Performed By: #### C BC, ADIFF, ANEU, FERR, FE, CMP, GFR, LIPID #### [address] [address] #### B12 #### [place] [address] LIPIDon 02-19-2024 Cholesterol [Mass/Vol] 184 mg/dL Normal 0-200 [facility] ([place]) Comment on above: Result Comment: Chol esterol Reference Interval: Less than 200 Desirable 200-239 Borderline high risk 240 and above High risk Performed By: #### C BC, ADIFF, ANEU, BMP, GFR #### [address] [address] Cholesterol in HDL [Mass/Vol] 44 mg/dL Normal 40-60 [facility] ([place]) Comment on above: Performed By: #### C BC, ADIFF, ANEU, BMP, GFR #### [address] [address] Cholesterol in LDL [Mass/Vol] 125 mg/dL Normal 0-130 [facility] ([place]) Comment on above: Performed By: #### C BC, ADIFF, ANEU, BMP, GFR #### [address] [address] Triglyceride [Mass/Vol] 75 mg/dL Normal 0-150 Replaced by [facility] ([place]) Comment on above: Result Comment: Trig lyceride Reference Interval: Less than 150 Normal 150-199 Borderline high risk 200-499 High risk 500 or higher Very high risk Performed By: #### C BC, ADIFF, ANEU, BMP, GFR #### [address] [address] MRI SPINE LUMBAR W/O CONTRAS Ton 11-18-2023 [...] Date: 11/18/2023 3:56:09 PM Ordering Provider: KATHERINE BRAND [facility] ([place]) .Auto Diffon 10-20-2023 Basophil, Absolute 0.0 10 3/mcL Normal 0.0-0.2 [facility] ([place]) Comment on above: Performed By: #### C BC, ADIFF, ANEU, BMP, GFR #### [address] [address] Basophils/100 WBC (Bld) 0.6 % Normal 0.0-2.5 A [facility] ([place]) Comment on above: Performed By: #### C BC, ADIFF, ANEU, BMP, GFR #### [address] [address] Eosinophil, Absolute 0.5 10 3/mcL High 0.0-0.4 [facility] ([place]) Comment on above: Performed By: #### C BC, ADIFF, ANEU, BMP, GFR #### [address] [address] Eosinophils/100 WBC (Bld) 7.2 % High 0.0-7.0 [facility] ([place]) Comment on above: Performed By: #### C BC, ADIFF, ANEU, BMP, GFR #### [address] [address] Lymphocyte, Absolute 1.0 10 3/mcL Normal 0.8-3.9 [facility] ([place]) Comment on above: Performed By: #### C BC, ADIFF, ANEU, BMP, GFR #### [address] [address] Lymphocytes/100 WBC (Bld) 14.0 % Normal 10.0-50.0 [facility] ([place]) Comment on above: Performed By: #### C BC, ADIFF, ANEU, BMP, GFR #### [address] [address] Monocyte, Absolute 0.7 10 3/mcL Normal 0.2-1.0 [facility] ([place]) Comment on above: Performed By: #### C BC, ADIFF, ANEU, BMP, GFR #### [address] [address] Monocytes/100 WBC (Bld) 9.8 % Normal 1.7-13.0 A [facility] ([place]) Comment on above: Performed By: #### C BC, ADIFF, ANEU, BMP, GFR #### [address] [address] Neutrophils/100 WBC (Bld) 68.4 % Normal 37.0-80.0 [facility] ([place]) Comment on above: Performed By: #### C BC, ADIFF, ANEU, BMP, GFR #### [address] [address] .GFRon 10-20-2023 GFR 88 ml/min/1.73sqm Normal [facility] ([place]) Comment on above: Result Comment: GFR Population [...] C BC, ADIFF, ANEU, BMP, GFR #### [address] [address] GFR Non- 72 ml/min/1.73sqm Normal [facility] ([place]) Comment on above: Result Comment: GFR Population [...] C BC, ADIFF, ANEU, BMP, GFR #### [place] [address] .NEUABSon 10-20-2023 Neutrophil, Absolute 4.8 10 3/mcL Normal 2.9-6.2 [facility] ([place]) Comment on above: Performed By: #### C BC, ADIFF, ANEU, BMP, GFR #### [place] [address] CBCon 10-20-2023 Erythrocyte distribution width (RBC) [Ratio] 15.2 % High 11.5-14.5 [facility] ([place]) Comment on above: Performed By: #### C BC, ADIFF, ANEU, BMP, GFR #### [place] [address] Hematocrit (Bld) [Volume fraction] 41.4 % Low 42.0-52.0 [facility] ([place]) Comment on above: Performed By: #### C BC, ADIFF, ANEU, BMP, GFR #### [place] [address] Hgb 14.3 G/dL Normal 14.0-18.0 [facility] ([place]) Comment on above: Performed By: #### C BC, ADIFF, ANEU, BMP, GFR #### [place] [address] MCH (RBC) [Entitic mass] 31.5 pg High 27.0-31.2 [facility] ([place]) Comment on above: Performed By: #### C BC, ADIFF, ANEU, BMP, GFR #### [place] [address] MCHC 34.4 G/dL Normal 31.8-35.4 [facility] ([place]) Comment on above: Performed By: #### C BC, ADIFF, ANEU, BMP, GFR #### [place] [address] MCV (RBC) [Entitic vol] 91.5 fL Normal 80.0-94.0 A [facility] ([place]) Comment on above: Performed By: #### C BC, ADIFF, ANEU, BMP, GFR #### [address] [address] Platelet 217 10 3/mcL Normal 130-400 [facility] ([place]) Comment on above: Performed By: #### C BC, ADIFF, ANEU, BMP, GFR #### [address] [address] Platelet mean volume (Bld) [Entitic vol] 6.9 fL Low 7.4-10.4 [facility] ([place]) Comment on above: Performed By: #### C BC, ADIFF, ANEU, BMP, GFR #### [address] [address] RBC 4.53 10 6/mcL Normal 4.04-6.13 [facility] ([place]) Comment on above: Performed By: #### C BC, ADIFF, ANEU, BMP, GFR #### [address] [address] WBC 7.1 10 3/mcL Normal 4.6-10.8 [facility] ([place]) Comment on above: Performed By: #### C BC, ADIFF, ANEU, BMP, GFR #### [address] [address] CMPon 10-20-2023 Albumin Level 3.6 G/dL Normal 3.4-4.8 [facility] ([place]) Comment on above: Performed By: #### C BC, ADIFF, ANEU, BMP, GFR #### [address] [address] Albumin/Globulin [Mass ratio] 1.2 {ratio} Normal 1.1-2.5 [facility] ([place]) Comment on above: Performed By: #### C BC, ADIFF, ANEU, BMP, GFR #### [address] [address] ALP [Catalytic activity/Vol] 94 U/L Normal 40-135 [facility] ([place]) Comment on above: Performed By: #### C BC, ADIFF, ANEU, BMP, GFR #### [address] [address] ALT [Catalytic activity/Vol] 34 U/L Normal 16-63 [facility] ([place]) Comment on above: Performed By: #### C BC, ADIFF, ANEU, BMP, GFR #### [address] [address] AST [Catalytic activity/Vol] 24 U/L Normal 10-40 [facility] ([place]) Comment on above: Performed By: #### C BC, ADIFF, ANEU, BMP, GFR #### [address] [address] Bili Total 0.4 mg/dL Normal 0.2-1.0 [facility] ([place]) Comment on above: Result Comment: Use of this assay is not recommended for patients undergoing treatment with eltrombopag due to the potential for falsely elevated results. Performed By: #### C BC, ADIFF, ANEU, BMP, GFR #### [address] [address] BUN/Creatinine Ratio 17 ratio Normal 7-27 [facility] ([place]) Comment on above: Performed By: #### C BC, ADIFF, ANEU, BMP, GFR #### [address] [address] Calcium [Mass/Vol] 8.8 mg/dL Normal 8.4-10.2 [facility] ([place]) Comment on above: Performed By: #### C BC, ADIFF, ANEU, BMP, GFR #### [address] [address] Chloride [Moles/Vol] 106 mmol/L Normal 98-107 [facility] ([place]) Comment on above: Performed By: #### C BC, ADIFF, ANEU, BMP, GFR #### [address] [address] CO2 [Moles/Vol] 32 mmol/L High 23-31 [facility] ([place]) Comment on above: Performed By: #### C BC, ADIFF, ANEU, BMP, GFR #### [address] [address] Creatinine [Mass/Vol] 1.00 mg/dL Normal 0.70-1.30 [facility] ([place]) Comment on above: Performed By: #### C BC, ADIFF, ANEU, BMP, GFR #### [address] [address] Electrolyte Balance 5.0 mEq/L Normal 4.0-15.0 [facility] ([place]) Comment on above: Performed By: #### C BC, ADIFF, ANEU, BMP, GFR #### [address] [address] Globulin 3.0 G/dL Normal [facility] ([place]) Comment on above: Performed By: #### C BC, ADIFF, ANEU, BMP, GFR #### [place] [id number] Glucose [Mass/Vol] 120 mg/dL High 83-110 [facility] ([place]) Comment on above: Performed By: #### C BC, ADIFF, ANEU, BMP, GFR #### [address] [address] Potassium [Moles/Vol] 4.5 mmol/L Normal 3.5-5.1 [facility] ([place]) Comment on above: Performed By: #### C BC, ADIFF, ANEU, BMP, GFR #### [address] [address] Sodium [Moles/Vol] 143 mmol/L Normal 136-145 [facility] ([place]) Comment on above: Performed By: #### C BC, ADIFF, ANEU, BMP, GFR #### [address] [address] Total Protein 6.6 G/dL Normal 6.4-8.2 [facility] ([place]) Comment on above: Performed By: #### C BC, ADIFF, ANEU, BMP, GFR #### [facility] [address] [place], [place] [address] Urea nitrogen [Mass/Vol] 17 mg/dL Normal 7-18 [facility] ([place]) Comment on above: Performed By: #### C BC, ADIFF, ANEU, BMP, GFR #### [facility] [place] [address] [place], [place] [address] LABORATORYOrdered By: SYSTEM SYSTEM on 10-20-2023 Albumin [...] [Mass/Vol] 192 mg/dL Normal 0-200 [facility] ([place]) Comment on above: Result Comment: Chol esterol Reference Interval: Less than 200 Desirable 200-239 Borderline high risk 240 and above High risk Performed By: #### C BC, ADIFF, ANEU, BMP, GFR #### [address] [address] Cholesterol in HDL [Mass/Vol] 39 mg/dL Low 40-60 [facility] ([place]) Comment on above: Performed By: #### C BC, ADIFF, ANEU, BMP, GFR #### [address] [address] Cholesterol in LDL [Mass/Vol] 136 mg/dL High 0-130 [facility] ([place]) Comment on above: Performed By: #### C BC, ADIFF, ANEU, BMP, GFR #### [address] [address] Triglyceride [Mass/Vol] 85 mg/dL Normal 0-150 A [facility] ([place]) Comment on above: Result Comment: Trig lyceride Reference Interval: Less than 150 Normal 150-199 Borderline high risk 200-499 High risk 500 or higher Very high risk Performed By: #### C BC, ADIFF, ANEU, BMP, GFR #### [address] [address] PSAon 10-20-2023 Prostate Specific Antigen 0.81 ng/mL Normal 0.00-4.00 [facility] ([place]) Comment on above: Performed By: #### C BC, ABDIEL, ANEU, BMP, GFR #### [place] [address] [place], [place] [address] CT SPINE LUMBAR W/O CONTRAST on 08-11-2023 [...] Date: 08/11/2023 7:30:27 PM Ordering Provider: VANESSA Smallwood [facility] ([place]) LABORATORYOrdered By: SYSTEM SYSTEM on 04-17-2023 Albumin [...] 13:28-0400 Body temperature 97.3 [degF] Katherine Brand OPEN CLAIMS REPRESENTATIVE-C Work Phone: [facility] 03-27-2025 13:28-0400 Diastolic blood pressure 71 mm[Hg] Katherine Brand OPEN CLAIMS REPRESENTATIVE-C Work Phone: [facility] 03-27-2025 13:28-0400 Heart rate 95 /min Katherine Brand OPEN CLAIMS REPRESENTATIVE-C Work Phone: [facility] 03-27-2025 13:28-0400 Inhaled oxygen flow rate 2 L/min Katherine Brand OPEN CLAIMS REPRESENTATIVE-C Work Phone: [facility] 03-27-2025 13:28-0400 Respiratory rate 18 /min Katherine Brand OPEN CLAIMS REPRESENTATIVE-C Work Phone: [facility] 03-27-2025 13:28-0400 SaO2% (BldA) [Mass fraction] 96 % Katherine Brand OPEN CLAIMS REPRESENTATIVE-C Work Phone: [facility] 03-27-2025 13:28-0400 Systolic blood pressure 127 mm[Hg] Katherine Brand OPEN CLAIMS REPRESENTATIVE-C Work Phone: [facility] 03-27-2025 02:42-0400 Body mass index (BMI) [Ratio] 25.5 kg/m2 Katherine Brand OPEN CLAIMS REPRESENTATIVE-C Work Phone: [facility] 03-27-2025 02:42-0400 Body weight 74 kg Katherine Brand OPEN CLAIMS REPRESENTATIVE-C Work Phone: [facility] 03-24-2025 11:16-0400 Body height 170.18 cm Katherine Brand OPEN CLAIMS REPRESENTATIVE-C Work Phone: [facility] 03-23-2025 22:00-0400 Diastolic blood pressure 64 mm[Hg] Katherine Brand OPEN CLAIMS REPRESENTATIVE-C Work Phone: [facility] 03-23-2025 22:00-0400 Heart rate 102 /min Katherine Brand OPEN CLAIMS REPRESENTATIVE-C Work Phone: [facility] 03-23-2025 22:00-0400 Respiratory rate 21 /min Katherine Brand OPEN CLAIMS REPRESENTATIVE-C Work Phone: [facility] 03-23-2025 22:00-0400 SaO2% (BldA) [Mass fraction] 94 % Katherine Brand OPEN CLAIMS REPRESENTATIVE-C Work Phone: [facility] 03-23-2025 22:00-0400 Systolic blood pressure 117 mm[Hg] Katherine Brand OPEN CLAIMS REPRESENTATIVE-C Work Phone: [facility] 03-23-2025 20:00-0400 Body temperature 97.9 [degF] Katherine Brand OPEN CLAIMS REPRESENTATIVE-C Work Phone: [facility] 03-23-2025 16:53-0400 Body mass index (BMI) [Ratio] 27.4 kg/m2 Katherine Brand OPEN CLAIMS REPRESENTATIVE-C Work Phone: [facility] 03-23-2025 16:53-0400 Body weight 84.3 kg Katherine Brand OPEN CLAIMS REPRESENTATIVE-C Work Phone: [facility] 03-23-2025 15:59-0400 Body height 175.26 cm Katherine Brand OPEN CLAIMS REPRESENTATIVE-C Work Phone: [facility] 08-18-2024 15:56-0500 Diastolic Blood Pressure Non-Invasive 80 mm[Hg] SIERRA BLACK DO [facility] 08-18-2024 15:56-0500 Heart rate 88 /min SIERRA BLACK DO [facility] 08-18-2024 15:56-0500 Respiratory rate 16 /min SIERRA FROMLEIT DO [facility] 08-18-2024 15:56-0500 Systolic Blood Pressure Non-Invasive 145 mm[Hg] SIERRA FROMMELT DO [facility] 08-18-2024 14:28-0500 Body temperature 97.52 [degF] SIERRA FROMMELT DO [facility] 08-18-2024 14:28-0500 Body weight 77 kg SIERRA FROMLEIT DO [facility] 08-18-2024 14:28-0500 Diastolic Blood Pressure Non-Invasive 74 mm[Hg] SIERRA FROMMELT DO [facility] 08-18-2024 14:28-0500 Heart rate 93 /min SIERRA LOT DO [facility] 08-18-2024 14:28-0500 Respiratory rate 16 /min SIERRA LOT DO [facility] 08-18-2024 14:28-0500 Systolic Blood Pressure Non-Invasive 139 mm[Hg] SIERRA LOT DO [facility] 05-01-2024 06:47-0400 Body temperature 97.7 [degF] FORREST CAO APRN-SENSITOMETRIST [facility] 05-01-2024 06:47-0400 Diastolic Blood Pressure Non-Invasive 89 mm[Hg] FORREST CAO APRN-SENSITOMETRIST [facility] 05-01-2024 06:47-0400 Heart rate 72 /min FORREST CAO APRN-SENSITOMETRIST [facility] 05-01-2024 06:47-0400 Reason For Taking VItal Signs FORREST CAO APRN-SENSITOMETRIST [facility] 05-01-2024 06:47-0400 Systolic Blood Pressure Non-Invasive 156 mm[Hg] FORREST CAO MANAGER PERIOPERATIVE-SENSITOMETRIST [facility] 04-30-2024 19:14-0400 Body temperature 97.88 [degF] FORREST CAO MANAGER PERIOPERATIVE-SENSITOMETRIST [facility] 04-30-2024 19:14-0400 Diastolic Blood Pressure Non-Invasive 84 mm[Hg] FORREST CAO MANAGER PERIOPERATIVE-SENSITOMETRIST [facility] 04-30-2024 19:14-0400 Heart rate 92 /min FORREST CAO MANAGER PERIOPERATIVE-SENSITOMETRIST [facility] 04-30-2024 19:14-0400 Reason For Taking VItal Signs FORREST CAO MANAGER PERIOPERATIVE-SENSITOMETRIST [facility] 04-30-2024 19:14-0400 Systolic Blood Pressure Non-Invasive 158 mm[Hg] FORREST CAO MANAGER PERIOPERATIVE-SENSITOMETRIST [facility] 04-30-2024 11:41-0400 Heart rate 65 /min FORREST CAO MANAGER PERIOPERATIVE-SENSITOMETRIST [facility] 04-30-2024 07:31-0400 Body temperature 98.24 [degF] FORREST CAO MANAGER PERIOPERATIVE-SENSITOMETRIST [facility] 04-30-2024 07:31-0400 Diastolic Blood Pressure Non-Invasive 90 mm[Hg] FORREST CAO MANAGER PERIOPERATIVE-SENSITOMETRIST [facility] 04-30-2024 07:31-0400 Heart rate 87 /min FORREST CAO MANAGER PERIOPERATIVE-SENSITOMETRIST [facility] 04-30-2024 07:31-0400 Reason For Taking VItal Signs FORREST CAO MANAGER PERIOPERATIVE-SENSITOMETRIST [facility] [facility] 04-30-2024 07:31-0400 Respiratory rate 18 /min FORREST CAO MANAGER PERIOPERATIVE-SENSITOMETRIST [facility] 04-30-2024 07:31-0400 Systolic Blood Pressure Non-Invasive 175 mm[Hg] FORREST MARCANOKIMBERLEEERWIN MANAGER PERIOPERATIVE-SENSITOMETRIST [facility] 04-29-2024 18:38-0400 Respiratory rate 18 /min FORREST MARCANOKIMBERLEEERWIN MANAGER PERIOPERATIVE-SENSITOMETRIST [facility] 04-29-2024 11:27-0400 Respiratory rate 18 /min FORREST MARCANOKIMBERLEEERWIN MANAGER PERIOPERATIVE-SENSITOMETRIST [facility] 04-26-2024 19:20-0400 Heart rate 95 /min FORREST CAO MANAGER PERIOPERATIVE-SENSITOMETRIST [facility] 04-26-2024 13:56-0400 Body height 167.6 cm FORREST MARCANOKIMBERLEEERWIN MANAGER PERIOPERATIVE-SENSITOMETRIST [facility] 04-26-2024 13:56-0400 Body weight 84 kg FORREST MARCANOKIMBERLEEERWIN MANAGER PERIOPERATIVE-SENSITOMETRIST [facility] 04-26-2024 13:56-0400 Body weight 29.9 kg/m2 FORREST CAO MANAGER PERIOPERATIVE-SENSITOMETRIST [facility] 04-26-2024 10:52-0400 Blood Pressure Location OSMEL BURRELL MANAGER PERIOPERATIVE-SENSITOMETRIST [facility] 04-26-2024 10:52-0400 Blood Pressure Method OSMEL BURRELL MANAGER PERIOPERATIVE-SENSITOMETRIST [facility] 04-26-2024 10:52-0400 Respiratory rate 18 /min OSMEL FINKLEY MANAGER PERIOPERATIVE-SENSITOMETRIST [facility] 04-26-2024 10:51-0400 Body temperature 97.7 [degF] OSMEL HAWKINS-COOPER MANAGER PERIOPERATIVE-SENSITOMETRIST [facility] 04-26-2024 10:51-0400 Diastolic Blood Pressure Non-Invasive 87 mm[Hg] OSMEL HAWKINS-COOPER MANAGER PERIOPERATIVE-SENSITOMETRIST [facility] 04-26-2024 10:51-0400 Heart rate 90 /min OSMEL HAWKINS-COOPER MANAGER PERIOPERATIVE-SENSITOMETRIST [facility] 04-26-2024 10:51-0400 Systolic Blood Pressure Non-Invasive 142 mm[Hg] OSMEL HAWKINS-COOPER MANAGER PERIOPERATIVE-SENSITOMETRIST [facility] 04-26-2024 10:07-0400 Heart rate 86 /min OSMEL HAWKINS-COOPER MANAGER PERIOPERATIVE-SENSITOMETRIST [facility] 04-26-2024 10:07-0400 Respiratory rate 18 /min OSMEL FINKLEY MANAGER PERIOPERATIVE-SENSITOMETRIST [facility] 04-26-2024 06:35-0400 Body temperature 98.06 [degF] OSMEL BURRELL MANAGER PERIOPERATIVE-SENSITOMETRIST [facility] 04-26-2024 06:35-0400 Diastolic Blood Pressure Non-Invasive 71 mm[Hg] OSMEL HAWKINS-COOPER MANAGER PERIOPERATIVE-SENSITOMETRIST [facility] 04-26-2024 06:35-0400 Heart rate 94 /min OSMEL HAWKINS-COOPER MANAGER PERIOPERATIVE-SENSITOMETRIST [facility] 04-26-2024 06:35-0400 Reason For Taking VItal Signs OSMEL HAIRCOOPER MANAGER PERIOPERATIVE-SENSITOMETRIST [facility] 04-26-2024 06:35-0400 Respiratory rate 18 /min OSMEL FINKLEY MANAGER PERIOPERATIVE-SENSITOMETRIST [facility] 04-26-2024 06:35-0400 Systolic Blood Pressure Non-Invasive 157 mm[Hg] OSMEL HAWKINS-COOPER MANAGER PERIOPERATIVE-SENSITOMETRIST [facility] 04-26-2024 06:14-0400 Heart rate 87 /min OSMEL SHRUTHIDarronCOOPER MANAGER PERIOPERATIVE-SENSITOMETRIST [facility] 04-26-2024 03:04-0400 Body temperature 97.88 [degF] OSMEL JAY-COOPER MANAGER PERIOPERATIVE-SENSITOMETRIST [facility] 04-26-2024 03:04-0400 Diastolic Blood Pressure Non-Invasive 89 mm[Hg] OSMEL HAWKINS-COOPER MANAGER PERIOPERATIVE-SENSITOMETRIST [facility] 04-26-2024 03:04-0400 Heart rate 93 /min OSMEL SHRUTHIDarronCOOPER MANAGER PERIOPERATIVE-SENSITOMETRIST [facility] 04-26-2024 03:04-0400 Reason For Taking VItal Signs OSMEL INDRA MANAGER PERIOPERATIVE-SENSITOMETRIST [facility] 04-26-2024 03:04-0400 Systolic Blood Pressure Non-Invasive 168 mm[Hg] OSMEL JAY-COOPER MANAGER PERIOPERATIVE-SENSITOMETRIST [facility] 04-25-2024 23:26-0400 Reason For Taking VItal Signs OSMEL SHRUTHIDOMINIK MANAGER PERIOPERATIVE-SENSITOMETRIST [facility] 04-24-2024 15:40-0400 Heart rate 77 /min OSMEL BURRELL MANAGER PERIOPERATIVE-SENSITOMETRIST [facility] 04-24-2024 06:40-0400 Heart rate 90 /min OSMEL BURRELL MANAGER PERIOPERATIVE-SENSITOMETRIST [facility] 04-22-2024 19:16-0400 Blood Pressure Cuff Size OSMEL BURRELL MANAGER PERIOPERATIVE-SENSITOMETRIST [facility] 04-22-2024 19:16-0400 Blood Pressure Location OSMEL BURRELL MANAGER PERIOPERATIVE-SENSITOMETRIST [facility] 04-22-2024 19:16-0400 Blood Pressure Method OSMEL HAWKINS-COOPER MANAGER PERIOPERATIVE-SENSITOMETRIST [facility] 04-22-2024 18:00-0400 Body height 175.3 cm OSMEL BURRELL MANAGER PERIOPERATIVE-SENSITOMETRIST [facility] 04-22-2024 18:00-0400 Body weight 87.5 kg OSMEL BURRELL MANAGER PERIOPERATIVE-SENSITOMETRIST [facility] 10-02-2023 19:44-0500 Blood Pressure Cuff Size DR NAPOLEON RAWLS MD [facility] 10-02-2023 19:44-[address] NAPOLEON RAWLS MD [facility] 10-02-2023 19:44-[address] NAPOLEON RAWLS MD [facility] 10-02-2023 19:44-0500 Body height 175.[address] NAPOLEON RAWLS MD [facility] 10-02-2023 19:44-0500 Body temperature 96.98 [degF] DR NAPOLEON RAWLS MD [facility] 10-02-2023 19:44-0500 Body weight 87.[address] NAPOLEON RAWLS MD [facility] 10-02-2023 19:44-0500 Diastolic Blood Pressure Non-Invasive 91 mm[Hg] DR NAPOLEON RAWLS MD [facility] 10-02-2023 19:44-0500 Heart rate 90 /min DR NAPOLEON RAWLS MD [facility] 10-02-2023 19:44-0500 Reason For Taking VItal Signs DR NAPOLEON RAWLS MD [facility] 10-02-2023 19:44-0500 Respiratory rate 20 /min DR NAPOLEON RAWLS MD [facility] 10-02-2023 19:44-0500 Systolic Blood Pressure Non-Invasive 170 mm[Hg] DR NAPOLEON RAWLS MD [facility] Encounters Encounter Date Encounter Type Care Provider Facility Start: 03-27-2025 Evaluation and management of inpatient Sony Chi Luis Fernando Facility:[facility] Start: 03-27-2025 Non-patient / Non-visit Dr. Katarina Fabian MD -[facility] Work Phone: Start: 03-26-2025 Non-patient / Non-visit Dr. Katarina Fabian MD -[facility] Work Phone: Start: 03-25-2025 Non-patient / Non-visit Dr. Zandra bucio MD -[facility] Start: 03-25-2025 Non-patient / Non-visit Dr. Katarina Fabian MD -[facility] Work Phone: Start: 03-24-2025 Non-patient / Non-visit Dr. Katarina Fabian MD -[facility] Work Phone: Start: 03-24-2025 ambulatory Shady Loving Fa cility:[facility] Start: 03-24-2025 Non-patient / Non-visit Dr. Smiley Loving MD -[facility] Start: 03-23-2025 ambulatory Zandra Freire Facility:[facility] Start: 03-23-2025 End: 03-27-2025 Evaluation and management of inpatient Dr. Merry Pham MD -[facility] Work Phone: Start: 03-10-2025 End: 03-10-2025 ambulatory KATHERINE Jmair SUNDAY MANAGER PERIOPERATIVE-SENSITOMETRIST Facility:[facility] Start: 03-10-2025 End: 03-10-2025 Patient encounter procedure KATHERINE Bowie SUNDAY MANAGER PERIOPERATIVE-SENSITOMETRIST [facility] Start: 03-09-2025 End: 03-09-2025 ambulatory KATHERINE S SUNDAY MANAGER PERIOPERATIVE-SENSITOMETRIST Facility:[facility] Start: 03-09-2025 End: 03-09-2025 Patient encounter procedure KATHERINE Jamir SUNDAY MANAGER PERIOPERATIVE-SENSITOMETRIST [facility] Start: 02-22-2025 End: 02-24-2025 Evaluation and management of inpatient OSMEL BURRELL MANAGER PERIOPERATIVE-SENSITOMETRIST [facility] Start: 11-09-2024 End: 11-09-2024 ambulatory Katherine Brand OPEN CLAIMS REPRESENTATIVE Facility:[facility] Start: 10-21-2024 End: 10-21-2024 ambulatory Katherinengozi Brand OPEN CLAIMS REPRESENTATIVE Facility:[facility] Start: 10-08-2024 End: 10-08-2024 ambulatory KATHERINE S SUNDAY MANAGER PERIOPERATIVE-SENSITOMETRIST Facility:[facility] Start: 10-08-2024 End: 10-08-2024 Patient encounter procedure AMBER GREENWOOD MD [facility] Start: 09-23-2024 End: 09-23-2024 ambulatory Katherine Brand OPEN CLAIMS REPRESENTATIVE Facility:[facility] Start: 08-18-2024 End: 08-18-2024 Emergency department patient visit SIERRA BLACK DO [facility] Start: 08-05-2024 End: 08-09-2024 ambulatory KATHERINE BRAND MANAGER PERIOPERATIVE-SENSITOMETRIST Facility:[facility] Start: 08-05-2024 End: 08-09-2024 Outreach Lab KATHERINE BRAND MANAGER PERIOPERATIVE-SENSITOMETRIST [facility] Start: 08-03-2024 End: 08-03-2024 ambulatory KATHERINE BRAND MANAGER PERIOPERATIVE-SENSITOMETRIST Facility:[facility] Start: 08-03-2024 End: 08-03-2024 Patient encounter procedure KATHERINE BRAND MANAGER PERIOPERATIVE-SENSITOMETRIST [facility] Start: 07-02-2024 ambulatory KATHERINE TOTH ER MANAGER PERIOPERATIVE-SENSITOMETRIST Facility:[facility] Start: 06-11-2024 End: 06-11-2024 ambulatory KATHERINE BRAND MANAGER PERIOPERATIVE-SENSITOMETRIST Facility:[facility] Start: 06-11-2024 End: 06-11-2024 Patient encounter procedure KATHERINE BRAND MANAGER PERIOPERATIVE-SENSITOMETRIST [facility] Start: 06-03-2024 End: 06-03-2024 ambulatory KATHERINE Bowie SUNDAY MANAGER PERIOPERATIVE-SENSITOMETRIST Facility:[facility] Start: 06-03-2024 End: 06-03-2024 Patient encounter procedure KATHERINE BRAND MANAGER PERIOPERATIVE-SENSITOMETRIST [facility] Start: 05-19-2024 End: 05-23-2024 ambulatory KATHERINENGOZI BRAND MANAGER PERIOPERATIVE-SENSITOMETRIST Facility:[facility] Start: 05-19-2024 End: 05-23-2024 Outreach Lab DANY TORRES MANAGER PERIOPERATIVE-SENSITOMETRIST [facility] Start: 05-19-2024 End: 05-19-2024 AMB External Visit DANY JCNAHOMY MANAGER PERIOPERATIVE-SENSITOMETRIST [facility] [place] [facility] Start: 04-26-2024 End: 05-01-2024 Evaluation and management of inpatient FORREST CAO MANAGER PERIOPERATIVE-SENSITOMETRIST [facility] Start: 04-22-2024 End: 04-26-2024 Evaluation and management of inpatient OSMEL Chavez SHRUTHIDarronCOOPER MANAGER PERIOPERATIVE-SENSITOMETRIST [facility] Start: 02-19-2024 End: 02-19-2024 [facility] Start: 12-17-2023 End: 12-17-2023 ambulatory [facility] Work Phone: Start: 12-17-2023 End: 12-17-2023 Patient encounter procedure [facility], Specimen Work Phone: Start: 11-18-2023 End: 11-18-2023 ambulatory [facility] Facility:[facility] Start: 11-18-2023 End: 11-18-2023 Patient encounter procedure KATHERINE BRAND MANAGER PERIOPERATIVE-SENSITOMETRIST [facility] Start: 10-20-2023 End: 10-20-2023 [facility] Start: 10-20-2023 End: 10-20-2023 Patient encounter procedure KATHERINE Jamir SUNDAY MANAGER PERIOPERATIVE-SENSITOMETRIST [facility] Start: 10-02-2023 End: 10-02-2023 Emergency department patient visit DR NAPOLEON RAWLS MD [facility] Start: 09-15-2023 End: 04-01-2024 ambulatory KATHERINEJOCELYN BRAND Facility:[facility] Start: 08-11-2023 End: 08-11-2023 Emergency department patient visit SIERRA BLACK DO Facility:[facility] Start: 04-17-2023 End: 04-17-2023 Patient encounter procedure AKTHERINE BRAND MANAGER PERIOPERATIVE-SENSITOMETRIST [facility] Start: 03-05-2023 End: 03-05-2023 Patient encounter procedure KATHERINE BRAND MANAGER PERIOPERATIVE-SENSITOMETRIST [facility] Start: 12-03-2022 End: 12-03-2022 Patient encounter procedure KATHERINE BRAND MANAGER PERIOPERATIVE-SENSITOMETRIST [facility] Start: 12-03-2022 End: 12-03-2022 Well adult monitoring check done KATHERINE Bowie SUNDAY MANAGER PERIOPERATIVE-SENSITOMETRIST [facility] Start: 01-10-2022 End: 01-10-2022 Patient encounter procedure ARACELI GUERRERO MD [facility] Procedures Date Procedure Procedure Detail Performing Clinician Start: 03-27-2025 Estimated creatinine clearance Katherine Brand OPEN CLAIMS REPRESENTATIVE-C Work Phone: Start: 03-26-2025 Plain chest X-ray Ofelia Brand OPEN CLAIMS REPRESENTATIVE-C Work Phone: Start: 03-24-2025 MRI of lumbar spine Allison Brand OPEN CLAIMS REPRESENTATIVE-C Work Phone: Start: 03-24-2025 MRI of thoracic spine Rama Brand OPEN CLAIMS REPRESENTATIVE-C Work Phone: Start: 03-24-2025 Total iron binding c apacity measurement Katherine Brand OPEN CLAIMS REPRESENTATIVE-C Work Phone: Start: 03-23-2025 Plain chest X-ray Ofelia cespedes Sunday OPEN CLAIMS REPRESENTATIVE-C Work Phone: Start: 03-23-2025 Computed tomography of thoracic spine without contrast Katherine Brand OPEN CLAIMS REPRESENTATIVE-C Work Phone: Start: 03-23-2025 CT of head without contrast Katheirne Sunday OPEN CLAIMS REPRESENTATIVE-C Work Phone: Start: 03-23-2025 CT of lumbar spine Catina adame Sunday OPEN CLAIMS REPRESENTATIVE-C Work Phone: Start: 03-23-2025 Estimated creatinine clearance Katherine Sunday OPEN CLAIMS REPRESENTATIVE-C Work Phone: Start: 09-25-2018 Cholecystectomy ARACELI GUERRERO MD Appendectomy ARACELI GUERRERO MD Colonoscopy ARACELI GUERRERO MD CT guided kyphoplast y of fracture of thoracic spine OSMEL GALINDOSENSITOMETRIST Comment on above: Pt reports T13 and T 11 Tonsillectomy ARACELI GUERRERO MD Wrist joint structur e (body structure) ARACELI GUERRERO MD Comment on above: Left Plan of Treatment Date Care Activity Detail Author Start: 03-27-2025 Patient discharge [facility] Start: 03-23-2025 Following clinical pathway protocol [facility] Start: 03-23-2025 Application of elastic bandage [facility] Start: 03-23-2025 Assessment of risk of venous thromboembolism [facility] Start: 03-23-2025 Consultation [facility] Start: 03-23-2025 Elevation of head of bed [facility] Start: 03-23-2025 Fall prevention [facility] Start: 03-23-2025 Inhalation therapy procedure [facility] Start: 03-23-2025 Insertion of catheter into peripheral vein [facility] Start: 03-23-2025 Introduction of urinary catheter [facility] Start: 03-23-2025 Measuring intake and output [facility] Start: 03-23-2025 Oxygen therapy [facility] Start: 03-23-2025 Patient referral to dietitian [facility] Start: 03-23-2025 Providing care according to standard [facility] Start: 03-23-2025 Provision of activity privileges [facility] Start: 03-23-2025 Referral to occupational therapist [facility] Start: 03-23-2025 Referral to service [facility] Start: 03-23-2025 [facility] Start: 03-23-2025 Admission procedure [facility] Start: 03-23-2025 Verification routine [facility] Start: 03-23-2025 Hospital admission, emergency, from emergency room, medical nature [facility] Start: 03-23-2025 [facility] Start: 03-23-2025 Patient referral to dietitian [facility] Patient Education ED Peripheral Edema, Bilateral [facility] Work Phone: Troponin T.cardiac [Mass/volume] in Serum or Plasma by High sensitivity method [facility] Immunizations Immunization Date Immunization Notes Care Provider Ines engle 12-07-2024 pneumococcal 21-hang nt [id number] OSMEL BURRELL MANAGER PERIOPERATIVE-SENSITOMETRIST [facility] 06-15-2024 Covid (Spikevax) Katherine presley OPEN CLAIMS REPRESENTATIVE-C Work Phone: [facility] 06-15-2024 influenza virus vacc ine, unspecified formulation KATHERINE BRAND MANAGER PERIOPERATIVE-SENSITOMETRIST [facility] 06-15-2024 influenza, high dose seasonal, preservative-free Katherine Brand OPEN CLAIMS REPRESENTATIVE-C Work Phone: [facility] 06-15-2024 SARS-CoV-2 (COVID-19 ) [id number] KATHERINE BRAND MANAGER PERIOPERATIVE-SENSITOMETRIST [facility] 09-08-2023 influenza virus vacc ine, unspecified formulation DR NAPOLEON RAWLS MD [facility] 09-08-2023 Influenza, injectabl e, Madin Vaishali Canine Kidney, preservative free, quadrivalent Katherine Brand OPEN CLAIMS REPRESENTATIVE-C Work Phone: [facility] 09-08-2023 RSV Adult Recombinan t (Arexvy) Katherine Brand OPEN CLAIMS REPRESENTATIVE-C Work Phone: [facility] 09-08-2023 RSV vaccine preF3, recombinant DR NAPOLEON RAWLS MD [facility] 04-24-2023 tetanus toxoid, redu hector diphtheria toxoid, and acellular pertussis vaccine, adsorbed; Translations: [Boostrix (Tdap)] DR NAPOLEON RAWLS MD [facility] 07-24-2022 COVID-19, mRNA, LNP- S, bivalent, PF, 50 mcg/0.5 mL dose; Translations: [Moderna COVID-19 Bivalent Booster Vaccine PF] KATHERINE BRAND MANAGER PERIOPERATIVE-SENSITOMETRIST [facility] 07-24-2022 SARS-CoV-2 (CV19)mRNA-1273 bivalent vac; Translations: [Moderna COVID-19 Bivalent Booster Vaccine PF] DR NAPOLEON RAWLS MD [facility] 06-04-2022 influenza, high dose seasonal, preservative-free KATHERINE BRAND MANAGER PERIOPERATIVE-SENSITOMETRIST [facility] 06-04-2022 influenza, injectabl e, quadrivalent, preservative free Katherine Brand OPEN CLAIMS REPRESENTATIVE-C Work Phone: [facility] 01-10-2022 COVID-19, mRNA, LNP- S, PF, 100 mcg or 50 mcg dose; Translations: [Moderna COVID-19 Vaccine] ARACELI GUERRERO MD [facility] 08-17-2021 influenza, high dose seasonal, preservative-free; Translations: [Fluad Quadrivalent PF ] ARACELI GUERRERO MD [facility] 08-17-2021 influenza, injectabl e, quadrivalent, preservative free Katherine Brand OPEN CLAIMS REPRESENTATIVE-C Work Phone: [facility] 07-19-2021 SARS-CoV-2 (COVID-19 ) mRNA-1273 vaccine ARACELI GUERRERO MD [facility] Comment on above: Result Comment: 2020: [id number] 11-29-2020 SARS-CoV-2 (COVID-19 ) mRNA-1273 vaccine ARACELI GUERRERO MD [facility] 11-01-2020 SARS-CoV-2 (COVID-19 ) mRNA-1273 vaccine ARACELI GUERRERO MD [facility] 07-20-2020 Influenza High-Dose Quadrivalent Katherine Brand OPEN CLAIMS REPRESENTATIVE-C Work Phone: [facility] 07-20-2020 influenza virus vacc ine, unspecified formulation ARACELI GUERRERO MD [facility] Comment on above: Result Comment: [facility] 09-08-2019 influenza, injectabl e, quadrivalent, preservative free; Translations: [Fluarix PF Quadrivalent ] ARACELI GUERRERO MD [facility] 10-28-2018 influenza virus vacc ine, unspecified formulation ARACELI GUERRERO MD [facility] 10-28-2018 influenza, injectabl e, quadrivalent, preservative free Katherine Sunday OPEN CLAIMS REPRESENTATIVE-C Work Phone: [facility] 07-17-2017 influenza virus vacc ine, unspecified formulation ARACELI GUERRERO MD [facility] 07-17-2017 influenza, injectabl e, quadrivalent, preservative free Katherine Sunday OPEN CLAIMS REPRESENTATIVE-C Work Phone: [facility] 08-18-2015 influenza virus vacc ine, unspecified formulation ARACELI GUERRERO MD [facility] 08-18-2015 influenza, seasonal, injectable, preservative free Katherine Chetek OPEN CLAIMS REPRESENTATIVE-C Work Phone: [facility] 11-28-2014 pneumococcal conjuga te vaccine, 13 valent ARACELI GUERRERO MD [facility] 07-14-2014 influenza virus vacc ine, unspecified formulation ARACELI GUERRERO MD [facility] 07-14-2014 influenza, seasonal, injectable, preservative free Katherine Chetek OPEN CLAIMS REPRESENTATIVE-C Work Phone: [facility] 10-28-2012 pneumococcal polysaccharide vaccine, 23 valent ARACELI GUERRERO MD [facility] Payers Date Payer Category Payer Self-pay [id number] 2024 Medicare [id number] 2023 Private Health Insurance [id number] [id number] Unknown [id number] 2016 Unknown [id number] 2011 Medicare [id number] 1946 Unknown [id number] 2.16.8 40.1.321013.3.579.2.627 1946 Unknown [id number] 2.16.8 40.1.584150.3.579.2.627 1946 Unknown [id number] 2.16.8 40.1.358065.3.579.2.627 1946 Unknown [id number] 2.16.8 40.1.374613.3.579.2.627 1946 Unknown [id number] 2.16.8 40.1.343780.3.579.2.627 1946 Unknown [id number] 2.16.8 40.1.525434.3.579.2.627 1946 Unknown [id number] 2.16.8 40.1.166969.3.579.2.627 1946 Unknown [id number] 2.16.8 40.1.817360.3.579.2.627 194 Unknown [id number] 2.16. 840.1.278128.3.579.2.627 1946 Unknown [id number] 2.16. 840.1.928195.3.579.2.627 1946 Unknown [id number] 2.16. 840.1.202343.3.579.2.627 1946 Unknown [id number] 2.16.8 40.1.734114.3.579.2.627 1946 Unknown [id number] 2.16.8 40.1.958092.3.579.2.627 1946 Unknown [id number] 2.16.8 40.1.606141.3.579.2.627 1946 Unknown [id number] 2.16.8 40.1.916044.3.579.2.627 1946 Unknown [id number] 2.16.8 40.1.593354.3.579.2.627 1946 Unknown [id number] 2.16.8 40.1.895097.3.579.2.627 1946 Unknown [id number] 2.16.8 40.1.436020.3.579.2.62 1946 Unknown [id number] 2.16.8 40.1.019467.3.579.2.627 1946 Unknown [id number] 2.16.8 40.1.057671.3.579.2.627 1946 Unknown [id number] 2.16.8 40.1.334527.3.579.2.627 Unknown [id number] 2.16.8 40.1.070575.3.579.2.462 Unknown [id number] 2.16.8 40.1.215085.3.579.2.462 Unknown [id number] 2.16.8 40.1.397789.3.579.2.462 Unknown [id number] 2.16.8 40.1.731536.3.579.2.462 Unknown [id number] 2.16.8 40.1.653163.3.579.2.462 Unknown [id number] 2.16.8 40.1.835353.3.579.2.462 Unknown [id number] 2.16.8 40.1.900469.3.579.2.462 Unknown [id number] 2.16.8 40.1.036261.3.579.2.462 Unknown [id number] 2.16.8 40.1.280682.3.579.2.462 Unknown [id number] 2.16.8 40.1.917747.3.579.2.462 Unknown [id number] 2.16.8 40.1.764260.3.579.2.462 Unknown [id number] 2.16.8 40.1.827301.3.579.2.462 Social History Date Type Detail Facility Start: 09-16-2018 End: 03-23-2025 Tobacco smoking status Ex-smoker (finding) [facility] Start: 1945 Sex Assigned At Male [facility] Sexual Orientation [facility] Start: 10-27-2019 Sex Male (finding) [facility] Goals Date Patient Goal Desired Activity /State Functional Status Date Assessment Result Facility 03-27-2025 Functional status Ambulates [facility] Work Phone: 08-18-2024 Functional Status Independent [facility] 08-18-2024 Functional Status Identified as high risk, Room located near nursing station [facility] 05-01-2024 Functional Status Nurse Jayden jackson q2hrs Performed Other: 7am-250pm [facility] 05-01-2024 Functional Status Walker [facility] 05-01-2024 Functional Status bilateral knee high removed/off [facility] 05-01-2024 Functional Status Non-Slip footw ear, toileting offered, supervised while toileting, Room check performed [facility] 05-01-2024 [facility] Status [facility] Functional Status [facility] Functional Status [facility]kley Ho [facility]-30-[facility]24 Functional Status Berkley Ho brianne Agosto [place] 04-30-2024 Functional Status Mod I Berkley Ho brianne Agosto [place] 04-30-2024 Functional Status Berkley Ho brianne Agosto [place] 04-29-2024 Functional Status Berkley Ho brianne Agosto [place] 04-29-2024 Functional Status [facility]kley Ho [facility] Functional Status [facility]kley Ho [facility] 04-28-2024 [facility] 04-27-2024 Functional Status [facility] 04-27-2024 Functional Status OT Toilet Transfers [facility] 04-26-2024 Functional Status Single level home [facility] 04-26-2024 Functional Status Mod A Berkley Ho [facility] 04-26-2024 Functional Status Min A Berkleydirk Lu[facility] [facility] Functional Status Identified as high risk, Fall ID band on, Room located near nursing station, Bed alert on, Door open, Non-Slip footwear [facility] 04-26-2024 [facility] Functional Status 7pm-7am [facility] 04-25-2024 Functional Status 25 [facility] 04-25-2024 Functional [facility]-25[facility]24 [facility] 04-25-2024 Functional Status [facility] 04-25-2024 Functional Status [facility] 04-25-2024 Functional Status [facility]ley [facility] 04-24-2024 Functional Status [facility]kley Luong [facility] 04-24-2024 Functional Status Done [facility]kley Luong [facility] 04-24-2024 Functional Status [facility] Lu[facility] 04-24-2024 Functional Status [facility] Luong [facility] 04-23-2024 Functional Status Front wheeled walker [facility] 04-23-2024 Functional Status Single level home [facility] 10-02-2023 Functional Status Awake, Resting [facility] Mental Status Date Assessment Result Facility 03-27-2025 Cognitive function Voice/Name [facility] Work Phone: 03-23-2025 Cognitive function Level Of Cons ciousness Awake;Alert;Appropriate;Follow s Commands [facility] Work Phone: 08-18-2024 Mental Status Orientation Oriented x 4 [facility] 08-18-2024 Mental Status [facility] 05-01-2024 Mental Status Oriented x 4 [facility] 04-30-2024 Mental Status [facility] 04-30-2024 [facility]-26[facility]24 Mental Status Oriented x 4 [facility] 04-26-2024 Mental Status [facility]-26[facility]24 [facility] 10-02-2023 Mental Status Oriented x 4 [facility] Clinical Notes 10-02-2023 to 03-27-2025 Note Date & Type Note Facility 03-27-2025 Note [facility] Medical Records Department [facility] [place] [address] History Physical Exam 03/27/25 1718 MR#: [id number] Acct: [id number] Name: NANCY SY Rep #: [id number] : 1945 80 From: Sony Gould MD PCP: Katherine Brand, OPEN CLAIMS REPRESENTATIVE-C Status:ADM IN Location: [facility] [id number] [facility] - General General Date of Admission: 03/27/25 Date of Service: 03/28/25 Chief Complaint: Here for rehabilitation. HPI Narrative NANCY SY, is a 80 Male who presents with followin03/23/2025 [facility] ED edema. Worsening bilateral lower extremity swelling for 2 weeks, took water pill for 3 days, did not help. Difficulty walking, balance issues, History of chronic back pain. Chest X-ray negative, CT brain negative, CT thoracic spine T9 compression fracture. Doppler ultrasound bilateral lower extremity negative DVT. 03/23/2025 Admit [facility]. Lasix IV, NIKKI compression wraps, for bilateral [...] strengthening, prior to discharge home with . [facility] Medical History (Updated 03/27/25 @ 17:33 by [...] Family History (Reviewed (more content not included)... [facility] 03-27-2025 Discharge summary [facility] 03-27-2025 Note [facility] Medical Records Department [address] [place] [address] Discharge Summary 03/27/25 1337 MR#: [id number] Acct: [id number] Name: NANCY SY Rep #: [id number] : 1945 80 From: Katarina Fabian MD PCP: LOIS Resendiz Status:ADM IN Location: [place] [address] Providers Date of Admission: 03/23/25 Date of [...] some weeks now and was seen at [facility] where he was told that he may [...] showed no acu (more content not included)... [facility] 03-27-2025 Discharge summary [facility] 03-26-2025 Radiology Diagnostic study note [facility] Imaging Services [address] [place], [place] [id number] Chest 1 View (Portable) MR#: [id number] Acct: [id number] Name: NANCY SY Rep #: [id number] : 1945 M 80 From: Margarita Baptiste MD PCP: LOIS Resendiz Status: ADM I N Study:Chest 1 View (Portable) Date of Exam: 03/26/25 Exam# [id number] Ordering Dr: Smiley Fabian MD EXAM: XR Chest, 1 View CLINICAL INDICATION: 2 L NC REQUIREMENT TECHNIQUE: Frontal view of the chest. COMPARISON: No relevant prior studies available. FINDINGS: LUNGS AND PLEURAL SPACES: See below. HEART: Cardiomegaly with mild congestion. MEDIASTINUM: Unremarkable. Normal mediastinal contour. BONES/JOINTS: Unremarkable. No acute fracture. RAD/Chest 1 View (Portable) IMPRESSION: Cardiomegaly with mild congestion. Reading Location: [facility] CC: OPEN CLAIMS REPRESENTATIVE-C Katherine Brand; Dr. Katarina Fabian MD ~ Warehouse Logistics Manager: Signed [facility] 03-26-2025 Progress note Note Date/Time March 26, 2025 11:10am [facility] Medical Records Department [address] [place] [address] Progress Note 03/26/25 1057 MR#: [id number] Acct: [id number] Name: NANCY SY Rep #:[id number] : 1945 80 From: Katarina Fabian MD PCP: LOIS Resendiz Status:ADM I N Location: [place] [address] Subjective Subjective Patient seen and examined. He [...] (Auto) 64.6, Lymph % (Auto) 14.1 L, Doddridge % (Auto) 13.0 H, Eos % (Auto) [...] some weeks now and was seen at [facility] where he was told that he may [...] full code Charges/Coding Visit Charges Inpatient E&M: 33770 Subs Hosp L2 03/26/25 1110 <Electronically signed by Katarina Fabian MD> Katarina Fabian MD Cosigner Signature (if applicable): CC: ~ Signed [facility] Work Phone: 1(792) 135-725107-26-2025 Progress note [facility] Medical Records Department [address] [place] [address] Progress Note 03/26/25 1057 MR#: [id number] Acct: [id number] Name: NANCY SY Rep #:[id number] : 1945 80 From: Katarina Fabian MD PCP: Katherine Brand, OPEN CLAIMS REPRESENTATIVE-C Status:ADM I N Location: [place] [address] Subjective Subjective Patient seen and examined. He [...] (Auto) 64.6, Lymph % (Auto) 14.1 L, Doddridge % (Auto) 13.0 H, Eos % (Auto) [...] some weeks now and was seen at [facility] where he was told that he may [...] full code Charges/Coding Visit Charges Inpatient E&M: 74585 Subs Hosp L2 03/26/25 1110 Katarina Fabian MD Cosigner Signature (if applicable): CC: ~ Signed [facility]07-25-2025 Consult note Author Zandra Freire [facility] Note Date/Time March 25, 2025 1:18 pm [facility] Medical Records Department [address] [place] [address] Consultation - Orthopedics 03/25/25 1307 MR#: [id number] Acct: [id number] Name: NANCY SY Rep #:[id number] : 1945 80 From: Zandra Freire MD PCP: Katherine Brand, OPEN CLAIMS REPRESENTATIVE-C Status:ADM I N Location: [place] [address] HPI Consult Data Date of Consult: 03/25/25 [...] trending, OA, Allergic rhinitis, Former tobacco use [facility] Medical History CKD (chronic kidney disease), stage [...] (Auto) 60.9, Lymph % (Auto) 18.3 L, Doddridge % (Auto) 13.5 H, Eos % (Auto) [...] L4/5 and L5/S1 as above. Reading Location: [facility] Thoracic Spine MRI 03/24/25 09:00 IMPRESSION: 1. Straightening of the upper thoracic spine. Acute kyphosis lower thoracic spine related to multiple fractures. 2. There is contact of the spinal cord by the T9 vertebral body with no abnormal signal seen. 3. Severe exit foraminal narrowing T9/10. Correlate with radiculopathy at T9. Reading Location: [facility] Assessment & Plan Assessment/Plan (1) Thoracic [...] outpatient basis. Charges/Coding Visit Charges Inpatient E&M: 57761 Init Hosp L3 03/25/25 1318 <Electronically signed by Zandra Freire MD> Cosigner Signature (if applicable): CC: LOIS Brand; Dr. Katarina Fabian MD~ Signed [facility] Work Phone: 1(205) 340-187907-25-2025 Consult note [facility] Medical Records Department [address] [place] [address] Consultation - Orthopedics 03/25/25 1307 MR#: [id number] Acct: [id number] Name: NANCY SY Rep #:[id number] : 1945 80 From: Zandra Freire MD PCP: LOIS Resendiz Status:ADM I N Location: [place] [address] HPI Consult Data Date of Consult: 03/25/25 [...] trending, OA, Allergic rhinitis, Former tobacco use [facility] Medical History CKD (chronic kidney disease), stage [...] (Auto) 60.9, Lymph % (Auto) 18.3 L, Doddridge % (Auto) 13.5 H, Eos % (Auto) [...] L4/5 and L5/S1 as above. Reading Location: [id number] Thoracic Spine MRI 03/24/25 09:00 IMPRESSION: 1. Straightening of the upper thoracic spine. Acute kyphosis lower thoracic spine related to multiple fractures. 2. There is contact of the spinal cord by the T9 vertebral body with no abnormal signal seen. 3. Severe exit foraminal narrowing T9/10. Correlate with radiculopathy at T9. Reading Location: [facility] Assessment & Plan Assessment/Plan (1) Thoracic [...] outpatient basis. Charges/Coding Visit Charges Inpatient E&M: 64788 Init Hosp L3 03/25/25 1318 Cosigner Signature (if applicable): CC: OPEN CLAIMS REPRESENTATIVE-C Katherine Brand; Dr. Katarina Fabian MD~ Signed [facility]07-25-2025 Progress note Author Katarina [facility] Note Date/Time March 25, 2025 10:3 2am [facility] Medical Records Department [address] [place] [address] Progress Note 03/25/25 1010 MR#: [id number] Acct: [id number] Name: NANCY SY Rep #:[id number] : 1945 80 From: Katarina Fabian MD PCP: LOIS Resendiz Status:ADM I N Location: [place] [address] Subjective Subjective Patient seen and examined. He [...] (Auto) 60.9, Lymph % (Auto) 18.3 L, Doddridge % (Auto) 13.5 H, Eos % (Auto) [...] L4/5 and L5/S1 as above. Reading Location: [facility] Thoracic Spine MRI 03/24/25 09:00 IMPRESSION: 1. Straightening of the upper thoracic spine. Acute kyphosis lower thoracic spine related to multiple fractures. 2. There is contact of the spinal cord by the T9 vertebral body with no abnormal signal seen. 3. Severe exit foraminal narrowing T9/10. Correlate with radiculopathy at T9. Reading Location: [facility] Physical Exam Const alert, oriented x3 [...] some weeks now and was seen at [facility] where he was told that he may [...] full code Charges/Coding Visit Charges Inpatient E&M: 60372 Subs Hosp L2 03/25/25 1032 <Electronically signed by Katarina Fabian MD> Katarina Fabian MD Cosigner Signature (if applicable): CC: ~ Signed [facility] Work Phone: 1(675) 342-350107-25-2025 Progress note [facility] Medical Records Department [address] [place] [address] Progress Note 03/25/25 1010 MR#: [id number] Acct: [id number] Name: NANCY SY Rep #:[id number] : 1945 80 From: Katarina Fabian MD PCP: Katherine Brand, OPEN CLAIMS REPRESENTATIVE-C Status:ADM I N Location: [place] [address] Subjective Subjective Patient seen and examined. He [...] (Auto) 60.9, Lymph % (Auto) 18.3 L, Doddridge % (Auto) 13.5 H, Eos % (Auto) [...] Physician: Merry Pham Performed By: Tommie Gurrola, [facility] Lumbar Spine MRI 03/24/25 09:00 [...] L4/5 and L5/S1 as above. Reading Location: [id number] Thoracic Spine MRI 03/24/25 09:00 IMPRESSION: 1. Straightening of the upper thoracic spine. Acute kyphosis lower thoracic spine related to multiple fractures. 2. There is contact of the spinal cord by the T9 vertebral body with no abnormal signal seen. 3. Severe exit foraminal narrowing T9/10. Correlate with radiculopathy at T9. Reading Location: [facility] Physical Exam Const alert, oriented x3 [...] some weeks now and was seen at [facility] where he was told that he may [...] full code Charges/Coding Visit Charges Inpatient E&M: 77062 Subs Hosp L2 03/25/25 1032 Katarina Fabian MD Cosigner Signature (if applicable): CC: ~ Signed [facility]07-24-2025 Progress note Author [facility] Note Date/Time March 24, 2025 3:20 pm [facility] Medical Records Department [address] [place] [address] Progress Note 03/24/25 1457 MR#: [id number] Acct: [id number] Name: NANCY SY Rep #:[id number] : 1945 80 From: Katarina Fabian MD PCP: Katherine Brand NP-C Status:ADM I N Location: [place] [address] Subjective Subjective Patient seen and examined. He [...] (Auto) 75.3 H, Lymph % (Auto)10.3 L, Doddridge % (Auto) 10.1 H, Eos % (Auto) [...] % (Auto) 61.6, Lymph % (Auto) 19.2, Doddridge % (Auto) 13.4 H, Eos % (Auto) [...] 03/23/25 17:33 IMPRESSION: No DVT. Reading Location: [facility] Brain CT 03/23/25 18:12 IMPRESSION: No acute intracranial abnormality. Reading Location: [facility] Lumbar Spine CT 03/23/25 18:12 IMPRESSION: 1. Severe compression deformity of L1 vertebral body, likely chronic. However,this does results in moderate spinal canal stenosis. 2. If symptoms persist, further evaluation with MRI is recommended. Reading Location: [id number] Thoracic Spine CT 03/23/25 18:12 IMPRESSION: 1. No acute fracture. 2. Moderate to severe compression deformity of T9 vertebral body with lucency along the anterior aspect, acute fracture can not be excluded. Reading Location: [facility] Chest X-Ray 03/23/25 18:20 IMPRESSION: No Acute Findings. Reading Location: [facility] Echocardiogram 03/23/25 22:14 Interpretation Summary The [...] some weeks now and was seen at [facility] where he was told that he may [...] full code Charges/Coding Visit Charges Inpatient E&M: 43335 Subs Hosp L2 03/24/25 1520 <Electronically signed by Katarina Fabian MD> Katarina Fabian MD Cosigner Signature (if applicable): CC: ~ Signed [facility] Work Phone: 1(905) 748-387207-24-2025 Progress note [facility] Medical Records Department [address] [place] [address] Progress Note 03/24/25 1457 MR#: [id number] Acct: [id number] Name: NANCY SY Rep #:[id number] : 1945 80 From: Katarina Fabian MD PCP: NOAH ResendizC Status:ADM I N Location: [place] [address] Subjective Subjective Patient seen and examined. He [...] (Auto) 75.3 H, Lymph % (Auto)10.3 L, Doddridge % (Auto) 10.1 H, Eos % (Auto) [...] % (Auto) 61.6, Lymph % (Auto) 19.2, Doddridge % (Auto) 13.4 H, Eos % (Auto) [...] Cholesterol, Calc 62, VLDL Cholesterol 9, HDL Hvfihgeqfmf19 L, Cholesterol/HDL Ratio 3.02, Vitamin B12 1246 H, TSH 0.640 03/24/25 10:38: Serum Folate 8.06 Radiography Diagnostic Testing: Radiology Impression Venous Duplex 03/23/25 17:33 IMPRESSION: No DVT. Reading Location: [facility] Brain CT 03/23/25 18:12 IMPRESSION: No acute intracranial abnormality. Reading Location: [facility] Lumbar Spine CT 03/23/25 18:12 IMPRESSION: 1. Severe compression deformity of L1 vertebral body, likely chronic. However,this does results in moderate spinal canal stenosis. 2. If symptoms persist, further evaluation with MRI is recommended. Reading Location: [facility] Thoracic Spine CT 03/23/25 18:12 IMPRESSION: 1. No acute fracture. 2. Moderate to severe compression deformity of T9 vertebral body with lucency along the anterior aspect, acute fracture can not be excluded. Reading Location: [facility] Chest X-Ray 03/23/25 18:20 IMPRESSION: No Acute Findings. Reading Location: [facility] Echocardiogram 03/23/25 22:14 Interpretation Summary The [...] some weeks now and was seen at [facility] where he was told that he may [...] full code Charges/Coding Visit Charges Inpatient E&M: 14726 Subs Hosp L2 03/24/25 1520 Katarina Fabian MD Cosigner Signature (if applicable): CC: ~ Signed [facility]07-24-2025 Discharge summary Author Marco Camacho [facility] Note Date/Time March 23, 2025 11:2 7pm [facility] Medical Records Department [address] [place] [address] Emergency Department Summary 03/23/25 MR#: [id number] Acct: [id number] Name: NANCY SY Shahla Rep #:[id number] : 1945 80 From: Marco Askew PCP: LOIS Resendiz Status:ADM I N Location: [place] [address] HPI History of Present Illness Chief Complaint: Edema [facility] Medical History CKD (chronic kidney disease), stage [...] (Dr. Pham) recommended inpatient admission. [facility] Narrative: The patient was initially hemodynamically stable, [...] Dispo: Admit This note was generated with [employer] dictation software. It may contain incorrectwords, spelling, [...] 75.3 H Lymph % (Auto) 10.3 L Doddridge % (Auto) 10.1 H Eos % (Auto) [...] 03/23/25 17:33 IMPRESSION: No DVT. Reading Location: [facility] Brain CT 03/23/25 18:12 IMPRESSION: No acute intracranial abnormality. Reading Location: [facility] Lumbar Spine CT 03/23/25 18:12 IMPRESSION: 1. Severe compression deformity of L1 vertebral body, likely chronic. However,this does results in moderate spinal canal stenosis. 2. If symptoms persist, further evaluation with MRI is recommended. Reading Location: [facility] Thoracic Spine CT 03/23/25 18:12 IMPRESSION: 1. No acute fracture. 2. Moderate to severe compression deformity of T9 vertebral body with lucency along the anterior aspect, acute fracture can not be excluded. Reading Location: [facility] Chest X-Ray 03/23/25 18:20 IMPRESSION: No Acute Findings. Reading Location: [facility] Discharge Plan Disposition Disposition: Acute Care Hospital [facility] Discharge Date/Time: 03/23/25 22:13 What to do if you have Problems For any increased pain, shortness of breath, bleeding, nausea or vomiting, chestpain, or any unexpected problems, contact your Primary Care Provider. Call [facility] ([phone]) or report to the closest Emergency Room. Call 911 if necessary. 03/23/252326 <Electronically signed by Marco Camacho DO> Cosigner Signature (if applicable): CC: LOIS Brand ~ Signed [facility] Work Phone: 1(624) 615-648007-23-2025 History and physical note Author Merry Pham [facility] Note Date/Time March 23, 2025 9:49 pm [facility] Medical Records Department [address] [facility] [place] [address] H&P Exam - Hospitalist 03/23/252008 MR#: [id number] Acct: [id number] Name: NANCY SY Rep #:[id number] : 1945 80 From: Merry Pham MD PCP: LOIS Resendiz Status:ADM I N Location: [place] [address] HPI - General General Date of Admission: 03/23/25 Date of Service: 03/23/25 Chief Complaint: Acute on Chronic back pain, increased BL LE edema, chronic debility HPI Narrative The patient is a 80 y/o M w/ PMHx: Possible Chronic macrocytic anemia, CKD stageII per GFR trending, OA, Allergic rhinitis, Former tobacco use who presents to [facility] ED on 03/23/2025 with 2 [...] fracture, chest x-ray with no acute findings. [facility] Medical History CKD (chronic kidney disease), stage [...] (Auto) 75.3 H, Lymph % (Auto)10.3 L, Doddridge % (Auto) 10.1 H, Eos % (Auto) [...] 03/23/25 17:33 IMPRESSION: No DVT. Reading Location: [facility] Brain CT 03/23/25 18:12 IMPRESSION: No acute intracranial abnormality. Reading Location: [facility] Lumbar Spine CT 03/23/25 18:12 IMPRESSION: 1. Severe compression deformity of L1 vertebral body, likely chronic. However,this does results in moderate spinal canal stenosis. 2. If symptoms persist, further evaluation with MRI is recommended. Reading Location: [facility] Thoracic Spine CT 03/23/25 18:12 IMPRESSION: 1. No acute fracture. 2. Moderate to severe compression deformity of T9 vertebral body with lucency along the anterior aspect, acute fracture can not be excluded. Reading Location: [facility] Chest X-Ray 03/23/25 18:20 IMPRESSION: No Acute Findings. Reading Location: [facility] Assessment & Plan Assessment/Plan (1) Acute on chronic back pain: PLAN: Plan The patient is a 80 y/o M w/ PMHx: Possible Chronic macrocytic anemia, CKD stageII per GFR trending, OA, Allergic rhinitis, Former tobacco use who presents to [facility] ED on 03/23/2025 with 2 [...] 33, repeat delta pending, will maintain on ekg monitor be cautious, will obtain magnesium level, [...] 16 minutes. Charges/Coding Visit Charges Inpatient E&M: 65835 Init Hosp L3 Procedures Hospitalists Procedures: 35871 Advncd Care Plan 30 Min 03/23/252148 <Electronically signed by Merry Pham MD> Cosigner Signature (if applicable): CC: LOIS Brand; Dr. Merry Pham MD~ Signed [facility] Work Phone: 1(272) 687-587007-23-2025 Discharge summary [facility] Medical Records Department [address] [place] [address] Emergency Department Summary 03/23/25 MR#: [id number] Acct: [id number] Name: NANCY SY Rep #:[id number] : 1945 80 From: Marco Askew PCP: Katherine Brand, OPEN CLAIMS REPRESENTATIVE-C Status:ADM I N Location: [address] History of Present Illness Chief Complaint: [...] Consults: Hospitalist (Dr. Pham) recommended inpatient admission. MDM Narrative: The patient was initially hemodynamically stable, [...] Dispo: Admit This note was generated with [employer] dictation software. It may contain incorrectwords, spelling, [...] 75.3 H Lymph % (Auto) 10.3 L Doddridge % (Auto) 10.1 H Eos % (Auto) [...] 03/23/25 17:33 IMPRESSION: No DVT. Reading Location: [facility] Brain CT 03/23/25 18:12 IMPRESSION: No acute intracranial abnormality. Reading Location: [facility] Lumbar Spine CT 03/23/25 18:12 IMPRESSION: 1. Severe compression deformity of L1 vertebral body, likely chronic. However,this does results in moderate spinal canal stenosis. 2. If symptoms persist, further evaluation with MRI is recommended. Reading Location: [id number] Thoracic Spine CT 03/23/25 18:12 IMPRESSION: 1. No acute fracture. 2. Moderate to severe compression deformity of T9 vertebral body with lucency along the anterior aspect, acute fracture can not be excluded. Reading Location: [facility] Chest X-Ray 03/23/25 18:20 IMPRESSION: No Acute Findings. Reading Location: [facility] Discharge Plan Disposition Disposition: Acute Care Hospital [facility] Discharge Date/Time: 03/23/25 22:13 What to do if you have Problems For any increased pain, shortness of breath, bleeding, nausea or vomiting, chestpain, or any unexpected problems, contact your Primary Care Provider. Call [facility] ([phone]) or report tothe closest Emergency Room. Call 911 if necessary. 03/23/252326 Cosigner Signature (if applicable): CC: LOIS Brand ~ Signed [facility]07-23-2025 Evaluation note* Diagnosis Onset Date Resolution Status Admit Date Acute on chronic back pain acute March 23, 2025 8:15pm History of kyphoplasty acute [facility] 2024 8:15pm Lumbar compression fracture acute March 23, 2025 8:15pm Thoracic compression fracture acute March 23, 2025 8:15pm Thoracolumbar kyphosis acute [facility] 2024 8:15pm Osteoporosis chronic March 23, 2 025 8:15pm [facility] Work Phone: 1(757) 104-713307-23-2025 History and physical note Author Merry Phma [facility] Note Date/Time March 23, 2025 9:49 pm [facility] Medical Records Department [address] [place] [address] H&P Exam - Hospitalist 03/23/252008 MR#: [id number] Acct: [id number] Name: NANCY SY Rep #:[id number] : 1945 80 From: Merry Pham MD PCP: LOIS Resendiz Status:ADM I N Location: [place] [address] HPI - General General Date of Admission: 03/23/25 Date of Service: 03/23/25 Chief Complaint: Acute on Chronic back pain, increased BL LE edema, chronic debility HPI Narrative The patient is a 80 y/o M w/ PMHx: Possible Chronic macrocytic anemia, CKD stageII per GFR trending, OA, Allergic rhinitis, Former tobacco use who presents to [facility] ED on 03/23/2025 with 2 [...] fracture, chest x-ray with no acute findings. [facility] Medical History CKD (chronic kidney disease), stage [...] (Auto) 75.3 H, Lymph % (Auto)10.3 L, Doddridge % (Auto) 10.1 H, Eos % (Auto) [...] 03/23/25 17:33 IMPRESSION: No DVT. Reading Location: [facility] Brain CT 03/23/25 18:12 IMPRESSION: No acute intracranial abnormality. Reading Location: [facility] Lumbar Spine CT 03/23/25 18:12 IMPRESSION: 1. Severe compression deformity of L1 vertebral body, likely chronic. However,this does results in moderate spinal canal stenosis. 2. If symptoms persist, further evaluation with MRI is recommended. Reading Location: [facility] Thoracic Spine CT 03/23/25 18:12 IMPRESSION: 1. No acute fracture. 2. Moderate to severe compression deformity of T9 vertebral body with lucency along the anterior aspect, acute fracture can not be excluded. Reading Location: [facility] Chest X-Ray 03/23/25 18:20 IMPRESSION: No Acute Findings. Reading Location: [facility] Assessment & Plan Assessment/Plan (1) Acute on chronic back pain: PLAN: Plan The patient is a 80 y/o M w/ PMHx: Possible Chronic macrocytic anemia, CKD stageII per GFR trending, OA, Allergic rhinitis, Former tobacco use who presents to [facility] ED on 03/23/2025 with 2 [...] 33, repeat delta pending, will maintain on ekg monitor be cautious, will obtain magnesium level, [...] 16 minutes. Charges/Coding Visit Charges Inpatient E&M: 37816 Init Hosp L3 Procedures Hospitalists Procedures: 87800 Advncd Care Plan 30 Min 03/23/252148 <Electronically signed by Merry Pham MD> Cosigner Signature (if applicable): CC: OPEN CLAIMS REPRESENTATIVE-C Katherine Barnd; Dr. Merry Pham MD~ Signed [facility] Work Phone: 1(393) 773-679007-23-2025 History and physical note [facility] Medical Records Department [address] [place] [address] H&P Exam - Hospitalist 03/23/252008 MR#: [id number] Acct: [id number] Name: NANCY SY Rep #:[id number] : 1945 80 From: Merry Pham MD PCP: LOIS Resendiz Status:ADM I N Location: [place] [address] HPI - General General Date of Admission: 03/23/25 Date of Service: 03/23/25 Chief Complaint: Acute on Chronic back pain, increased BL LE edema, chronic debility HPI Narrative The patient is a 80 y/o M w/ PMHx: Possible Chronic macrocytic anemia, CKD stageII per GFR trending, OA, Allergic rhinitis, Former tobacco use who presents to [facility] ED on 03/23/2025 with 2 [...] fracture, chest x-ray with no acute findings. [facility] Medical History CKD (chronic kidney disease), stage [...] (Auto) 75.3 H, Lymph % (Auto)10.3 L, Doddridge % (Auto) 10.1 H, Eos % (Auto) [...] 03/23/25 17:33 IMPRESSION: No DVT. Reading Location: [facility] Brain CT 03/23/25 18:12 IMPRESSION: No acute intracranial abnormality. Reading Location: [facility] Lumbar Spine CT 03/23/25 18:12 IMPRESSION: 1. Severe compression deformity of L1 vertebral body, likely chronic. However,this does results in moderate spinal canal stenosis. 2. If symptoms persist, further evaluation with MRI is recommended. Reading Location: [facility] Thoracic Spine CT 03/23/25 18:12 IMPRESSION: 1. No acute fracture. 2. Moderate to severe compression deformity of T9 vertebral body with lucency along the anterior aspect, acute fracture can not be excluded. Reading Location: [facility] Chest X-Ray 03/23/25 18:20 IMPRESSION: No Acute Findings. Reading Location: [facility] Assessment & Plan Assessment/Plan (1) Acute on chronic back pain: PLAN: Plan The patient is a 80 y/o M w/ PMHx: Possible Chronic macrocytic anemia, CKD stageII per GFR trending, OA, Allergic rhinitis, Former tobacco use who presents to [facility] ED on 03/23/2025 with 2 [...] 33, repeat delta pending, will maintain on ekg monitor be cautious, will obtain magnesium level, [...] 16 minutes. Charges/Coding Visit Charges Inpatient E&M: 10658 Init Hosp L3 Procedures Hospitalists Procedures: 25665 Advncd Care Plan 30 Min 03/23/259 Cosigner Signature (if applicable): CC: LOIS Brand; Dr. Merry Pham MD~ Signed [facility]07-23-2025 Radiology Diagnostic study note [facility] Imaging Services [address] [place], [place] [address] Spine Thoracic without Contras MR#: [id number] Acct: [id number] Name: NANCY SY Rep #: [id number] : 1945 M 80 From: Margarita Baptiste MD PCP: LOIS Resendiz Status: REG E R Study:Spine Thoracic without Contras Date of Exam: 03/23/25 Exam# [id number] Ordering Dr: Lourdes Camacho DO EXAM: CT [...] fracture can not be excluded. Reading Location: [facility] CC: LOIS Brand; Dr. Marco Camacho DO ~ Warehouse Logistics Manager: Signed [facility]07-23-2025 Radiology Diagnostic study note [facility] Imaging Services [address] [place], [place] [address] Spine Lumbar without Contrast MR#: [id number] Acct: [id number] Name: NANCY SY Rep #: [id number] : 1945 M 80 From: Margarita Baptiste MD PCP: Katherine Brand, OPEN CLAIMS REPRESENTATIVE-C Status: REG E R Study:Spine Lumbar without Contrast Date of E xam: 03/23/25 Exam# [id number] Ordering Dr: Lourdes Camacho DO EXAM: CT [...] evaluation with MRI is recommended. Reading Location: [facility] CC: OPEN CLAIMS REPRESENTATIVE-C Katherine Brand; Dr. Marco Camacho DO ~ Warehouse Logistics Manager: Signed [facility]07-23-2025 Radiology Diagnostic study note [facility] Imaging Services [address] [place], [place] [address] Chest 1 View (Portable) MR#: [id number] Acct: [id number] Name: NANCY SY Rep #: [id number] : 1945 M 80 From: Bethel Delatorre MD PCP: Katherine Brand, OPEN CLAIMS REPRESENTATIVE-C Status: REG E R Study:Chest 1 View (Portable) Date of Exam: 03/23/25 Exam# [id number] Ordering Dr: Doug,T andreea DO PROCEDURE: CHEST 1 VIEW (PORTABLE) 03/23/2025 REASON FOR EXAM: DIZZINESS, SHORTNESS OF BREATH TECHNIQUE: Frontal view of the chest. COMPARISON: None. FINDINGS: The heart is partially obscured due to low lung volumes. Left basilar linear opacities which may represent atelectasis versus scar. The lungs are otherwise clear. No acute osseous abnormalities. RAD/Chest 1 View (Portable) IMPRESSION: No Acute Findings. Reading Location: [id number] CC: ISAÍAS-Shahla Brand; Dr. Marco Camacho DO ~ Warehouse Logistics Manager: Signed [facility]07-23-2025 Radiology Diagnostic study note [facility] Imaging Services [address] [place] [address] Venous Duplex Imag/Efrain Extrem MR#: [id number] Acct: [id number] Name: NANCY SY Rep #: [id number] : 1945 M 80 From: Bethel Delatorre MD PCP: LOIS Resendiz Status: REG E R Study:Venous Duplex Imag/Efrain Extrem Date of E xam: 03/23/25 Exam# [id number] Ordering Dr: Lourdes Camacho DO PROCEDURE: VENOUS DUPLEX IMAG/EFRAIN EXTREM 03/23/2025 REASON FOR EXAM: M 80 y/o TECHNIQUE: VENOUS DUPLEX IMAG/EFRAIN EXTREM COMPARISON: None. FINDINGS: Normal compressibility and color Doppler flow of the bilateral lower extremities. Edema is visualized in the bilateral calves. US/Venous Duplex Imag/Efrain Extrem IMPRESSION: No DVT. Reading Location: [id number] CC: LOIS Brand; Dr. Marco Camacho DO ~ Warehouse Logistics Manager: Signed [facility]07-23-2025 Radiology Diagnostic study note [facility] Imaging Services [address] [place] [address] Brain/Head without Contrast MR#: [id number] Acct: [id number] Name: NANCY SY Rep #: [id number] : 1945 M 80 From: Bethel Delatorre MD PCP: LOIS Resendiz Status: REG E R Study:Brain/Head without Contrast Date of Exa m: 03/23/25 Exam# [id number] Ordering Dr: Lourdes Camacho DO PROCEDURE: BRAIN/HEAD [...] IMPRESSION: No acute intracranial abnormality. Reading Location: [facility] CC: LOIS Brand; Dr. Marco Camacho DO ~ Warehouse Logistics Manager: Signed [facility]06-30-2025 Note. MICRO - Microbiology PROCEDURE: Blood [...] Locations *1: This test was performed at: [address], [address] [place], [place] [address]6-30-2025 Note. MICRO - Microbiology PROCEDURE: Blood Culture [...] Locations *1: This test was performed at: [address], [address] [place], [place] [address]6-26-2025 Hospital Discharge instructions Patient Education 02/24/2025 12:59:09 [...] Follow these instructions at home: Medicines Take euqx-kzr-omrsdhq and prescription medicines only as told by [...] as fried or sweet foods. ?Take an jruh-znz-iumkywb or prescription medicine for constipation. If you [...] 08/18/2006 Document Revised: 10/14/2019 Document Reviewed: 09/29/2018 [employer] Patient Education 2020 [employer]. 02/24/2025 12:58:21 Weakness, Ozqb-ti-Kcvy Weakness Weakness is a lack of strength. [...] about working with a physical therapist or pet trainer to help you get stronger. General instructions Take yilo-tgx-hcgujco and prescription medicines only as told by [...] 07/31/2009 Document Revised: 03/24/2019 Document Reviewed: 03/24/2019 [employer] Patient Education 2020 [employer]. Follow Up Care 02/22/2025 17:35:43 With:IWONA ARCHER DO Address: [address] [address] [place] [phone] When: Unknown Comments:Please call to schedule with pulmonology for post-hospital appointment regarding 8mm pulmonary nodule. With:ZANDRA FREIRE MD Address: [address] [place] [phone] When: Unknown Comments:Please call to schedule your post-hospital follow-up appointment with orthopedic spine doctor for worsening lumbar fractures. With:KATHERINE BRAND APRN-BERTHA Address: [address] [facility] [place], [place] [phone] When:2-4 days [facility] 06-26-2025 Note Discharge Instructions Thank you for allowing [facility] to assist you with your healthcare needs. The following is importantdischarge information regarding your hospital visit. Your Care Team KATHERINE BRAND APRN-THAO JAIMES APRN - BERTHA Your Diagnosis Acute hypoxic respiratory failure Bronchitis [...] that you follow-up with a lung doctor (clinical training specialist). Your indicated that she would prefer to make your appointments. Scheduled Follow-Up Appointments Appointment Type When With Where Contact Information StatusPC OV 03/09/2025 03:00 PM EDT KATHERINE BRAND [address] [address] Confirmed PC OV 05/05/2025 03:00 PM EDT KATHERINE BRAND [address] [address] Confirmed Follow Up Appointments Follow Up with IWONA ARCHER DO Where:[address] [place] [phone] Additional Information: Please call to schedule with pulmonology for post- hospital appointment regarding 8mm pulmonary nodule. Follow Up with ZANDRA FREIRE MD Where:[address] [place] [phone] Additional Information: Please call to schedule your post-hospital follow-up appointment with orthopedic spine doctor for worsening lumbar fractures. Follow Up with KATHERINE BRAND When:Within 2-4 days Where:[address] [place], [place] [phone]- [phone] The Following Activity and Diet Have Been [...] a meal Duration: 3 Days Pickup at [facility] Unchanged acetaminophen (acetaminophen 500 mg oral [...] by mouth Once a day Pharmacy Information [facility]: [address] [place], [place] [phone] Please take this list to your next doctor s visit. Bring all medications you take, including over the counter medications, herbals and other supplements with you to your doctor s visit. Patients and families are reminded to discard old lists and to update any records with all medication providers or retail pharmacies. Medication Leaflets prednisone (PRED ni sone) Dimitris What is the most important [...] may report side effects to FDA at [phone]. What other drugs will affect prednisone? Sometimes [...] may affect prednisone. This includes prescription and wfke-upl-oatbcgb medicines, vitamins, and herbal products. Not all [...] to ensure that the information provided by [employer]. ('[employer]') is accurate, up-to-date, and complete, but no guarantee is made to that effect. Drug information contained herein may be time sensitive. [employer]aid information has been compiled for use by healthcare practitioners and consumers in the [place] and therefore [employer] does not warrant that uses outside of the [place] are appropriate, unless specifically indicated otherwise. [employer] drug information does not endorse drugs, diagnose patients or recommend therapy. [employer] drug information isan informational resource designed to [...] effective or appropriate for any given patient. [employer] does not assume any responsibility for any aspect of healthcare administered with the aid of information [employer] provides. The information contained herein is not intended to cover all possible uses, directions, precautions, warnings, drug interactions, allergic reactions, or adverse effects. If you have questions about the drugs you are taking, check with your doctor, nurse or pharmacist. Copyright 5038-7952 [employer]. Version: 10.01. Revision Date: 11/26/2018. Education Materials Spinal Compression [...] Follow these instructions at home: Medicines Take hbqj-sxm-gqfhfhe and prescription medicines only as told by [...] fried or sweet foods. ? Take an yugz-iei-xvzupki or prescription medicine for constipation. If you [...] 08/18/2006 Document Revised: 10/14/2019 Document Reviewed: 09/29/2018 [employer] Patient Education 2020 [employer]. Weakness Weakness is a lack of [...] about working with a physical therapist or pet trainer to help you get stronger. General instructions Take dxst-zaw-dcprrub and prescription medicines only as told by [...] 07/31/2009 Document Revised: 03/24/2019 Document Reviewed: 03/24/2019 [employer] Patient Education 2020 [employer]. Additional Information VACCINATE! IT SAVES LIVES! Members of the community who have not yet received the COVID-19 vaccine and would like to receive it can visit one of [facility] vaccine clinics. There are many vaccine clinic locations within the [facility]. For locations and available times, please visit [email or web address].gov/. It is important to note that some COVID mobile vaccine clinics are held outdoors and may be canceled in rainy or stormy conditions. To learn more about pediatric vaccinations (ages 5-11), we invite you to visit the [facility] webpage. https://www.[facility].org/pages/7065-Adxzf-Qdqtgrkgjnk-Nljasynins-Mybms-Kbl stions.htmlTo learn more about the COVID-19 vaccine, we invite you to visit the CDC website for a list of frequently asked questions.https://www.cdc.gov/coronavirus/2019-ncov/vaccines/faq.html [facility] Patient Portal Access Instructions: Stay connected with your healthcare team and access your personal medical information anytime with the [facility] Patient Portal. Please follow the directions below to create your [facility] account: 1.Access the email account you provided upon registration to the hospital/physician office.2.Look for an invitation email from [facility].3.Open the email and access the invitation link: AcceptInvitation to [facility].4.Fill in the required britt to create your account. To access your account, visit [email or web address]. Click the blue button labeled Access Patient Portal and then log in with the username and password that you created in the steps above. You will be able to view your test results, lab results, a summary of your visits, upcoming appointments and more. There is also a convenient messaging option where you can send secure messages to your HarQender. In addition, you will have the ability to download any documents or summaries to your computer and/or send the information securely to a physician. Remember that your healthcare information is confidential, so carefully consider who you will allowto register on the [facility] Patient Portal for access to your information. You can also access the [facility] Patient Portal on the [facility] dylan. Simply click on Patient Portal and then log into your account. If you would like to receive a full copy of your medical records, please contact the [facility] Medical Records Department by calling [phone], Friday through Friday between 8 a.m. and [...] Call your local pharmacy or go to http://bit.Fanium/7E7Jf0q to find one close to you.3.Make use of household items: Use cat litter or old coffee grounds to dispose medications if other options arenot available. Mix your drugs with these household products, seal them in an airtight container andthrow it into the garbage. Call [facility]: [phone] to be sure your drugs can be [...] Patient Education Materials Spinal Compression Fracture Weakness, Hgsz-du-Ggot Medication Leaflets prednisone My discharge plan and instructions have been reviewed and explained to me and IALVARO KENNETH C understand my current condition and have read and understand these discharge instructions. I have received a written copy of the plan/instructions. If I have questions, I am aware that I should contact my doctor. Patient/Tandem Mill Sticker Signature: Date/Time: Relationship to Patient: Witness Name/Signature: Date/Time: [facility]06-25-2025 Note. MICRO - Microbiology PROCEDURE: Legionella Urine [...] Locations *1: This test was performed at: [address]06-25-2025 Note. MICRO - Microbiology PROCEDURE: Streptococcus Pneumoniae [...] Locations *1: This test was performed at: [address]06-25-2025 Evaluation + Plan noteExtracted from: Title:History and Physical Author:THAO MERINO Date:02/23/25 1. Bronchitis 2. Acute hypoxic respiratory [...] He will be referred to pulmonology in [place]. Patient and updated on results. L1 compression [...] Appointment Date:03/09/2025 03:00:00 PM Scheduled Provider:KATHERINE BRAND Location:[facility] Appointment Type:PC OV Appointment Date:05/05/2025 03:00:00 PM Scheduled Provider:KATHERINE BRANDSENSITOMETRIST Location:[facility] Appointment Type:PC OV Future Scheduled Tests Laboratory* Vitamin D Level 11/03/24 * Vitamin D Level 07/25/24 [facility] 06-25-2025 Note Date of Service 02/23/2025 Chief Complaint c/o rib pain and sob s/p fall on friday. -loc. Pt states he tripped over a pillow on the floor and fell History of Present Illness 80-year-old male with past medical history significant for hypertension, BPH, anxiety, L1 compression fracture, lumbar stenosis, chronic back pain. Patient presented to [facility] emergency department 02/22/2025 with [...] He will be referred to pulmonology in [place]. Patient and updated onresults. 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 Days per week: 1-2 times/week., 03/11/2020 Home/Environment OTher risks in environment: no current smoke exposure. Primary Director Of Athletics: Self, lives with his Leida, and their [...] (COVID-19) mRNA-1273 vaccine: 0.5 unknown unit (11/01/20) tetanus/diphtheria/pertussMUL.ORD!d76754: 0.5 mL (04/24/23) Code Status Code Status - Ordered -- 02/22/25 20:25:00 EDT, Full Code, Constant Order Digitally Signed by THAO MERINO on 02/23/2025 11:54 AM Digitally Signed by PAULINO MATTSON MD [facility]06-25-2025 Note* Exam Date Time Procedure Performing Provider Status 02/23/25 10:27 AM XR Abdomen AP DERREK JOHN MD ; Auth (Verified) [id number] ORIGINAL EXAMINATION: ONE SUPINE XRAY VIEW(S) OF [...] Date: 02/23/2025 11:03:02 AM Ordering Provider: THAO [facility]3]06-24-2025 Note* Exam Date Time Procedure Performing Provider Status 02/22/25 10:[address] Angiography Chest w/ Contrast FAM ROBERT DO; Auth (Verified) [id number] ORIGINAL EXAMINATION: CTA OF THE CHEST 02/22/2025 [...] 02/23/2025 4:22:10 PM Ordering Provider: OSMEL BURRELL [facility]06-24-2025 HCoV HKU1 RNA DARYA+non-probe Ql (Nph) Not Detected *NA* (02/22/25 6:51 PM)AH Auto Viro/Sero [id number] Note* Exam Date Time Procedure Performing Provider Status 02/22/25 6:37 PM XR Chest 1 View FAM WAGNER DO; Auth (Verified) [id number] ORIGINAL EXAMINATION: ONE XRAY VIEW OF THE [...] 02/22/2025 7:30:02 PM Ordering Provider: BRYN CONTRERAS [facility]06-24-2025 Note* Exam Date Time Procedure Performing Provider Status 02/22/25 5:59 PM EKG [ED AOH] - CV BRYN CONTRERAS DO; (Verified) ECG Final Report Sinus tachycardia Multiple premature complexes, vent & supraven Borderline T abnormalities, inferior leads Electronic Signature: BRYN CONTRERAS DO 02/22/2025 18:02:45 [facility]12-18-2024 Hospital Discharge instructions Patient Education 08/18/2024 [...] in vomit, stools (black or red color) [phone] The [employer]. [address] [place] [address], [place] [address]. All rights reserved. This information is not intended as a substitute for professional medical care. Always follow [facility] professional's instructions. Follow Up Care 08/18/2024 14:28:40 With:KATHERINE BRAND Address: [address] [place] [phone] When:2-4 days [facility] 12-18-2024 Note Discharge Instructions Thank you for allowing [facility] to assist you with your healthcare needs. The following is importantdischarge information regarding your hospital visit. Diagnosis from Today's Visit Fall What to Do Next Instructions from Your Care Team No qualifying data available. Post Acute Orders No qualifying data available. You Need to Schedule the Following Appointments Follow Up with KATHERINE BRAND When:Within 2-4 days Where:[address] [place] [phone] Allergies Sallie Nausea Claritin Slo-Niacin atenolol buPROPion [...] in vomit, stools (black or red color) [phone] [employer]. [address] [place] [address]. All rights reserved. This information is not intended as a substitute for professional medical care. Always follow yourhealthcare professional's instructions. Additional Information VACCINATE! IT SAVES LIVES! Members of the community who have not yet received the COVID-19 vaccine and would like to receive it can visit one of [facility] vaccine clinics. There are many vaccine clinic locations within the [facility]. For locations and available times, please visit www.gettheshot.coronavirus.[place].gov/. It is important to note that some COVID mobile vaccine clinics are held outdoors and may be canceled in rainy or stormy conditions. To learn more about pediatric vaccinations (ages 5-11), we invite you to visit the [facility] webpage. https://www.[facility].org/pages/1919-Lklux-Ltstwskkqpf-Olwiqvpxhn-Sqsfs-Xgc stions.htmlTo learn more about the COVID-19 vaccine, we invite you to visit the CDC website for a list of frequently asked questions. https://www.cdc.gov/coronavirus/2019-ncov/vaccines/faq.html [facility] Patient Portal Access Instructions: Stay connected with your healthcare team and access your personal medical information anytime with the [facility] Patient Portal. If you would like a full copy of your medical records please contact the [facility] Medical Records Department Friday through Friday between 8a.m. and 4:30p.m. Please follow the directions below to access the portal: 1.Access the email account you provided upon registration to the [facility].2.Look for an invitation email from [facility].3.Open the email and access the invitation link: Accept Invitation to Berkleywripl4.Fill in the required britt to create your account. Sign into [email or web address] with your username and password that you [...] you will allow to register on the Berkleywripl Patient Portal for access to your information. You can also access the [facility] Patient Portal on the [employer] Simply click on Health Records under FitBionic and then click on the Alminder logo. HOW TO SAFELY DISPOSE OF PRESCRIPTION [...] Call your local pharmacy or go to [email or web address]/[email or web address] to find one close to you.3.Make use of household items: Use cat litter or old coffee grounds to dispose medications if other options arenot available. Mix your drugs with these household products, seal them in an airtight container andthrow it into the garbage. Call [facility]: [phone] to be sure your drugs can be [...] aware that I should contact my doctor. Patient/Tandem Mill Sticker Signature: Date/Time: Relationship to Patient: Witness Name/Signature: Date/Time: [facility]12-18-2024 Note* Exam Date Time Procedure Performing Provider Status 08/18/24 3:07 PM XR Ribs 2 Views Left /PA Chest (AO) Auth (Verified) [id number] ORIGINAL EXAMINATION: 2 XRAY VIEWS OF LEFT [...] Sign Date: 08/18/2024 3:31:12 PM Ordering Provider: [facility]12-18-2024 Note* Exam Date Time Procedure Performing Provider Status 08/18/24 3:[address] Head or Brain w/o Contrast Auth (Verified) [id number] ORIGINAL EXAMINATION: CT OF THE HEAD WITHOUT [...] Sign Date: 08/18/2024 3:16:57 PM Ordering Provider: [facility]12-18-2024 Note* Exam Date Time Procedure Performing Provider Status 08/18/24 3:06 PM XR Elbow Minimum 3 Views Left Auth (Verified) [id number] ORIGINAL EXAMINATION: THREE XRAY VIEWS OF THE [...] 08/18/2024 3:28:37 PM Ordering Provider: SIERRA BLACK [facility]12-06-2024 Note. MICRO - Microbiology PROCEDURE: Urine Culture [*1] SOURCE: Urine, Clean Catch BODY SITE: COLLECTED DATE/TIME: 08/05/2024 15:13 EST RECEIVED DATE/TIME: 08/05/2024 19:03 EST START DATE/TIME: 08/05/2024 19:03 EST FREE TEXT SOURCE: FINAL REPORTS Final Report [] Verified Date/Time/Personnel: 08/06/2024 14:49 EST 10,000 - 50,000 cfu/ml Mixed growth consistent with normal urogenital yobany. Performing Locations *1: This test was performed at: [address], [facility] , [facility]10-11-2024 Note ORIGINAL EXAMINATION: BONE DENSITOMETRY 06/11/2024 [...] Sign Date: 06/11/2024 3:10:47 PM Ordering Provider: [facility]08-31-2024 Hospital Discharge instructions Patient Education 05/01/2024 12:03:53 [...] Follow these instructions at home: Medicines Take hwcd-uis-ptemejf and prescription medicines only as told by [...] as fried or sweet foods. ?Take an ixjh-anr-fqamcai or prescription medicine for constipation. If you [...] 12/03/2007 Document Revised: 10/03/2018 Document Reviewed: 10/03/2018 CalAmp Patient Education 2020 Cloudyn. Follow Up Care 04/26/2024 12:06:12 With:KATHERINE BRAND APRN-SENSITOMETRIST Address: [address] [place] [address] [phone] When: Unknown With:BRODY PATE DO, Orthopedic Address: [facility], [address] [facility] [place] [address]- [phone] When:05/25/2024 15:00:00 Comments:This appointment can serve as your post-hospital follow-up appointment. Follow-up as scheduled. [facility] 08-31-2024 Note Discharge Instructions Thank you for allowing [facility] to assist you with your healthcare needs. The following is importantdischarge information regarding your hospital visit. Your Care Team [facility] Your Diagnosis Asthenia Compression fracture of spine Hypertension What to do next Scheduled Follow-Up Appointments Appointment Type When With Where Contact Information StatusPC OV 08/18/2024 03:00 PM EST KATHERINE BRAND APRN-BERTHA [facility] [address] [place] [phone] Confirmed Follow Up Appointments Follow Up with KATHERINE BRAND APRN-BERTHA Where:[address] [place] [phone] Follow Up with BRODY PATE DO, Orthopedic When:05/25/2024 03:00 PM EDT Where:[address] [place] [address], [facility] [address] [place] [address]- [phone] Additional Information: This appointment can serve as [...] within: 3-5 days, Results Notify to: KATHERINE BRAND MANAGER PERIOPERATIVE-SENSITOMETRIST, 05/01/24 11:30:00 EDT Discharge Radiology No qualifying [...] remove patches after 12 hours Pickup at [facility] 181104/30/24 New potassium chloride (K-Tab 20 mEq oral tablet, extended release) 3 tab(s) by mouth Once a day DUE 05/02/24 Duration: 30 Days Take with food- 2 tabs qam, 1 tab qpm Pickup at [facility] 181105/01/24 0800 Unchanged acetaminophen (acetaminophen [...] mouth Once a day 05/01/24799 Pharmacy Information [facility]: [address] [phone] Please take this list to your next [...] may report side effects to FDA at 8-144-QHU-8968. What other drugs will affect potassium chloride? Tell your doctor about all your other medicines, especially: medicine to prevent organ transplant rejection; a diuretic or 'water pill'; or heart or blood pressure medication. This list is not complete. Other drugs may affect potassium chloride, including prescription and pagp-lcp-nkfynnn medicines, vitamins, and herbal products. Not all [...] to ensure that the information provided by Frontier [employer]. ('Multum') is accurate, up-to-date, and complete, but no guarantee is made to that effect. Drug information contained herein may be time sensitive. Plaid information has been compiled for use by healthcare practitioners and consumers in the [place] and therefore Plaid does not warrant that uses outside of the [place] are appropriate, unless specifically indicated otherwise. RotoPops drug information does not endorse drugs, diagnose patients or recommend therapy. RotoPops drug information isan informational resource designed to [...] effective or appropriate for any given patient. Plaid does not assume any responsibility for any aspect of healthcare administered with the aid of information Plaid provides. The information contained herein is not intended to cover all possible uses, directions, precautions, warnings, drug interactions, allergic reactions, or adverse effects. If you have questions about the drugs you are taking, check with your doctor, nurse or pharmacist. Copyright 5311-8652 Frontier Silicon. Version: 16.. Revision Date: 04/09/2023. Education Materials [...] Follow these instructions at home: Medicines Take mkfw-zbh-viwmqvv and prescription medicines only as told by [...] fried or sweet foods. ? Take an vzgs-kny-lyeugol or prescription medicine for constipation. If you [...] Document Reviewed: 10/03/2018 Elsevier Patient Education 2020 Elsevier Inc. Additional Information VACCINATE! IT SAVES LIVES! Members of the community who have not yet received the COVID-19 vaccine and would like to receive it can visit one of [facility] vaccine clinics. There are many vaccine clinic locations within the [facility]. For locations and available times, please visit https://[email or web address].[place].gov/. It is important to note that some COVID mobile vaccine clinics are held outdoors and may be canceled in rainy or stormy conditions. To learn more about pediatric vaccinations (ages 5-11), we invite you to visit the [employer] webpage. https://www.Docalyticss.org/pages/0057-Jcpti-Hihrbvovgtm-Jptjkexwcx-Wsdrx-Trf stions.htmlTo learn more about the COVID-19 vaccine, we invite you to visit the CDC website for a list of frequently asked questions.https://www.cdc.gov/coronavirus/2019-ncov/vaccines/faq.html [facility] Patient Portal Access Instructions: Stay connected with your healthcare team and access your personal medical information anytime with the [facility] Patient Portal. Please follow the directions below to create your [facility]ialMED account: 1.Access the email account you provided upon registration to the hospital/physician office.2.Look for an invitation email from [facility].3.Open the email and access the invitation link: AcceptInvitation to [facility]ialMED.4.Fill in the required britt to create your account. To access your account, visit Viedea/[email or web address]. Click the blue button labeled Access Patient [...] who you will allowto register on the [facility] OneChart Patient Portal for access to your information. You can also access the [facility] on the [facility] Anywhere dylan. Simply click on Patient Portal and then log into your account. If you would like to receive a full copy of your medical records, please contact the [facility] Medical Records Department by calling [phone], Friday through Friday between 8 a.m. and [...] Call your local pharmacy or go to http://adRise/7O0Fz3l to find one close to you.3.Make use of household items: Use cat litter or old coffee grounds to dispose medications if other options arenot available. Mix your drugs with these household products, seal them in an airtight container andthrow it into the garbage. Call [facility]: [phone] to be sure your drugs can be [...] aware that I should contact my doctor. Patient/Tandem Mill Sticker Signature: Date/Time: Relationship to Patient: Witness Name/Signature: Date/Time: [facility]08-27-2024 Note Date of Service 04/27/24 History of Present Illness This is a 79-year-old male With past medical history of T11 compression fracture, hypertension, BPH, anxiety. He presented to [facility] on 04/22/2024 with complaints of severe [...] for pneumonia. He was subsequently admitted to [facility]. 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 Days per week: 1-2 times/week., 03/11/2020 Home/Environment OTher risks in environment: no current smoke exposure. Primary Director Of Athletics: Self, lives with his Leida, and their [...] by THAO MERINO on 04/27/2024 06:06 PM [facility]08-27-2024 Evaluation + Plan noteExtracted from: Title:History [...] Appointment Date:08/18/2024 03:00:00 PM Scheduled Provider:KATHERINE BRAND Location:[facility] Appointment Type:PC OV [facility] 08-26-2024 Nurse Progress note I read and agree with Yannick Krueger vital signs documentation Digitally Signed by Elissa De La Rosa Halal Butcher on 04/26/2024 03:34 PM [facility]08-26-2024 Hospital Discharge instructions Patient Education 04/26/2024 [...] Follow these instructions at home: Medicines Take cflz-loh-eafytxv and prescription medicines only as told by [...] pain is severe. ?Do not take other ntuo-kfd-zuoomig pain medicines in addition to prescription pain [...] grains, and fresh fruits and vegetables. ?Take mbge-ylx-nogklou or prescription medicines. ?Limit foods that are [...] or you are no longer ill. Take wzmj-lai-ksrdoal and prescription medicines only as told by [...] 09/01/2016 Document Revised: 01/03/2020 Document Reviewed: 01/03/2020 CalAmp Patient Education 2020 Cloudyn. Follow Up Care 04/22/2024 17:53:30 With:KATHERINE BRAND APRN-SENSITOMETRIST Address: [address] [facility] [place] [address]- [phone] When:3-5 days Comments:Please call to schedule your post-hospital follow-up appointment. With:BRODY PATE DO, Orthopedic Address: [address] [place] [address], [address] [facility] [place] [phone] When:05/25/2024 15:00:00 Comments:This appointment can serve as your post-hospital follow-up appointment with orthopedics. Follow-up as scheduled. [facility] 08-26-2024 Nurse Progress note I agree with Yannick FOX Balance Wheel Facer assessment and vital signs. [facility] Digitally Signed by Elissa De La Rosa Halal Butcher on 04/26/2024 01:36 PM [facility]08-26-2024 Note Discharge Instructions Thank you for allowing [facility] to assist you with your healthcare needs. The following is importantdischarge information regarding your hospital visit. Your Care Team Reji Cao CNP Your Diagnosis Acute hypoxic respiratory failure Anxiety Compression fracture of L1 vertebra HTN (hypertension) Hypernatremia Pneumonia What to do next Scheduled Follow-Up Appointments Appointment Type When With Where Contact Information StatusPC OV 08/18/2024 03:00 PM EST KATHERINE BRAND [address] [phone] Confirmed Follow Up Appointments Follow Up with KATHERINE BRAND When:Within 3-5 days Where:0 [place] [address]- [phone] Additional Information: Please call to schedule your post-hospital follow-up appointment. Follow Up with BRODY PATE DO, Orthopedic When:05/25/2024 03:00 PM EDT Where:[address] [place] [address] [address] [facility] [place] [phone] Additional Information: This appointment can serve as [...] Ordered -- 04/26/24 10:43:00 EDT, FORREST CAO APRN-SENSITOMETRIST Transfer of Care Oxygen Therapy - Ordered [...] Follow these instructions at home: Medicines Take cvgn-jbw-aazguju and prescription medicines only as told by [...] is severe. ? Do not take other vkfi-nhr-vowmbuk pain medicines in addition to prescription pain [...] and fresh fruits and vegetables. ? Take ptjh-xtx-njszmyi or prescription medicines. ? Limit foods that [...] or you are no longer ill. Take eagb-zxe-gmbsmbb and prescription medicines only as told by [...] 09/01/2016 Document Revised: 01/03/2020 Document Reviewed: 01/03/2020 ElseEachNet Patient Education 2019 Cloudyn. Additional Information VACCINATE! IT SAVES LIVES! Members of the community who have not yet received the COVID-19 vaccine and would like to receive it can visit one of [facility] vaccine clinics. There are many vaccine clinic locations within the [facility]. For locations and available times, please visit https://gettheshot.coronavirus.[place].gov/. It is important to note that some COVID mobile vaccine clinics are held outdoors and may be canceled in rainy or stormy conditions. To learn more about pediatric vaccinations (ages 5-11), we invite you to visit the [facility] webpage. https://www.akSmartCare systems.org/pages/4780-Vmnsh-Udazxoakswd-Ncrarhbvwg-Ioixq-Pbj stions.htmlTo learn more about the COVID-19 vaccine, we invite you to visit the CDC website for a list of frequently asked questions.https://www.cdc.gov/coronavirus/2019-ncov/vaccines/faq.html [facility]ial[facility] Patient Portal Access Instructions: Stay connected with your healthcare team and access your personal medical information anytime with the AxialMED Patient Portal. Please follow the directions below to create your [facility]ialMED account: 1.Access the email account you provided upon registration to the hospital/physician office.2.Look for an invitation email from [facility].3.Open the email and access the invitation link: AcceptInvitation to [facility]ialMED.4.Fill in the required britt to create your account. To access your account, visit [email or web address]/[email or web address]. Click the blue button labeled Access Patient [...] who you will allowto register on the [facility] ixigo Patient Portal for access to your information. You can also access the [facility] iHydroRunChart Patient Portal on the [facility] Any[facility] dylan. Simply click on Patient Portal and then log into your account. If you would like to receive a full copy of your medical records, please contact the [facility] Medical Records Department by calling [phone], Friday through Friday between 8 a.m. and [...] Call your local pharmacy or go to http://Soocial.Fanium/5O5Jm6e to find one close to you.3.Make use of household items: Use cat litter or old coffee grounds to dispose medications if other options arenot available. Mix your drugs with these household products, seal them in an airtight container andthrow it into the garbage. Call [facility]: [phone] to be sure your drugs can be [...] aware that I should contact my doctor. Patient/Tandem Mill Sticker Signature: Date/Time: Relationship to Patient: Witness Name/Signature: Date/Time: [facility]08-26-2024 Nurse Progress note I read and agree with Yannick FOX student nursing assessment and vital signs. I was present for all care. Digitally Signed by Elissa De La Rosa Halal Butcher on 04/26/2024 11:49 AM [facility]08-26-2024 Pastoral care Progress note Pastoral Care Note Entered On: 04/26/2024 9:52 EDT Performed On: 04/26/2024 9:49 EDT by Shakir Braxton Pastoral Care Type of Pastoral Visit : Initial visit Spiritual Care Visit Initiated by : Lens Coating Technician Spiritual Care Reason for Visit : General Spiritual Assessment : Spiritual, not Yarsani, Peaceful Spiritual Care Emotional Assessment : Accepting [...] pt identifies self as a hybrid in congregation and declines further spiritual care support Pastoral Care Visit Length : 5 minute(s) Shakir Braxton - 04/26/2024 9:49 EDT Digitally Signed by Shakir Braxton on 04/26/2024 09:49 AM [facility]08-25-2024 Nurse Progress note Pt frequently encouraged to drink water and use incentive spirometer. Pt usually only drinks cola. at bedside and also updated on plan of care. Digitally Signed by Ines Santiago RN on 04/25/2024 05:12 PM [facility]08-25-2024 Note Date of Service 04/25/2024 Chief [...] by FORREST CAO on 04/25/2024 11:22 AM [facility] WorrellCyrlqidv[facility]-2456 Note Date of Service 04/04/2024 Chief Complaint [...] Will need outpatient follow-up with orthospine at [facility] Hypertension, blood pressure stable. BPH, continue Flomax Anxiety, continue home medications CODE STATUS: Full code Discussed with Dr. Schmidt Time Spent Total time spent reviewing labs, diagnostics, evaluating the patient, and medical decision makin minutes Digitally Signed by FORREST CAO on 04/24/2024 11:27 AM [facility]08-23-2024 Note. MICRO - Microbiology PROCEDURE: Legionella [...] Locations *1: This test was performed at: [facility], [address] [place] [address], [facility] , [facility] ([place])04-23-2024 Note. MICRO - Microbiology PROCEDURE: Streptococcus Pneumoniae [...] Locations *1: This test was performed at: [facility], [address] [place] [address], [phone] , [facility] ([place])04-23-2024 Evaluation + Plan noteExtracted from: Title:History and Physical Author:RADHA CAO MANAGER PERIOPERATIVE-SENSITOMETRIST Date:04/23/24 Acute hypoxic respiratory fa ilure Pneumonia [...] Appointment Date:08/18/2024 03:00:00 PM Scheduled Provider:KATHERINE BRAND APRN-SENSITOMETRIST Location:[facility] Appointment Type: OV [facility] 08-23-2024 Note Date of Service 04/23/2024 Chief [...] fracture, hypertension, BPH, anxiety. 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 Days per week: 1-2 times/week., 03/11/2020 Home/Environment Primary Director Of Athletics: Self, lives with his Leida, and their [...] BRODY PATE DO on 04/23/2024 11:58 AM [facility]08-23-2024 HCoV 229E RNA DARYA+non-probe Ql (Nph) Not Detected *NA* (04/23/24 10:33 AM) Auto Viro/Sero [id number] Note ORIGINAL INDICATION:ORDERING SYSTEM PROVIDED HISTORY: Reason [...] severe facet arthrosis causes severe left and nryb-ea-hiavfzej right foraminal narrowing without central canal stenosis. [...] severe bilateral L4-5, and severe left and gudp-kx-hgjxgpaw right at L5-S1. 4. Level by level findings as described. Interpreted by: Modesto Lunsford MD Preliminary Report By: Modesto Lunsford MD Electronically signed By Modesto Lunsford MD Dictated Date: 04/23/2024 10:34:51 AM Prelim Date: 04/23/2024 10:53:15 AM Sign Date: 04/23/2024 10:53:15 AM Ordering Provider: [facility] 04-22-2024 Note ORIGINAL EXAMINATION: ONE XRAY VIEW [...] Sign Date: 04/22/2024 10:33:35 PM Ordering Provider: [facility]08-22-2024 Note ORIGINAL EXAMINATION: 3 XRAY VIEWS OF [...] with vertebral cement augmentation. No significant spondylolisthesis. Scyg-xl-pnedsyll multilevel degenerative changes with intervertebral disc height [...] Date: 04/22/2024 10:32:15 PM [facility] Note Sinus rhythm Borderline repolarization abnormality Compared to ECG at 09/25/2018 15:33:45 BORDERLINE ECG Electronic Signature: SIERRA BLACK DO 04/22/2024 18:29:41[facility] 03-19-2024 Note ORIGINAL HISTORY: Fall in [...] Sign Date: 11/18/2023 3:56:09 PM Ordering Provider: [facility]2024 Hospital Discharge instructions Patient Education 10/02/2023 19:58:09 [...] itchy skin. Ask your healthcare provider about jekj-szo-sytoijr pain relievers. If your pain is severe, [...] and which vaccine is best for you. 2061-9798 The Get[employer]. [address] [place] [address]. All rights reserved. This information is not intended as a substitute for professional medical care. Always follow yourhealthcare professional's instructions. Follow Up Care 10/02/2023 19:42:42 With:KATHERINE BRAND Address: [address] [place] [phone] When:2-4 days [facility] 2024 Note Discharge Instructions Thank you for allowing [facility] to assist you with your healthcare needs. The following is importantdischarge information regarding your hospital visit. Diagnosis from Today's Visit Rash Shingles What to Do Next Instructions from Your Care Team No qualifying data available. Post Acute Orders No qualifying data available. You Need to Schedule the Following Appointments Follow Up with KATHERINE BRAND APRN-BERTHA When Within 2-4 days Where: [address] [place] [phone] Allergies Sallie (Nausea) Claritin Slo-Niacin atenolol buPROPion [...] may report side effects to FDA at 4-205-VHQ-3538. What other drugs will affect valacyclovir? Valacyclovir can harm your kidneys, especially if you also use certain medicines for infections, cancer, osteoporosis, organ transplant rejection, bowel disorders, high blood pressure, or pain or arthritis (including Advil, Motrin, and Aleve). Other drugs may affect valacyclovir, including prescription and dirx-grj-frzadkt medicines, vitamins, and herbal products. Tell your [...] to ensure that the information provided by Frontier Silicon. ('Multum') is accurate, up-to-date, and complete, but no guarantee is made to that effect. Drug information contained herein may be time sensitive. Plaid information has been compiled for use by healthcare practitioners and consumers in the [place] and therefore Plaid does not warrant that uses outside of the [place] are appropriate, unless specifically indicated otherwise. RotoPops drug information does not endorse drugs, diagnose patients or recommend therapy. RotoPops drug information isan informational resource designed to [...] effective or appropriate for any given patient. Plaid does not assume any responsibility for any aspect of healthcare administered with the aid of information Plaid provides. The information contained herein is not intended to cover all possible uses, directions, precautions, warnings, drug interactions, allergic reactions, or adverse effects. If you have questions about the drugs you are taking, check with your doctor, nurse or pharmacist. Copyright 6384-0402 [employer]. Version: .. Revision Date: 10/27/2020. Education Materials [...] itchy skin. Ask your healthcare provider about ftxv-jeh-kakcqdv pain relievers. If your pain is severe, [...] and which vaccine is best for you. 2642-5870 [employer]. [address] [place] [address], [place] [address]. All rights reserved. This information is not intended as a substitute for professional medical care. Always follow yourhealthcare professional's instructions. Additional Information VACCINATE! IT SAVES LIVES! Members of the community who have not yet received the COVID-19 vaccine and would like to receive it can visit one of [facility] vaccine clinics. There are many vaccine clinic locations within the [facility]. For locations and available times, please visit www.gettheshot.coronavirus.[place].gov/. It is important to note that some COVID mobile vaccine clinics are held outdoors and may be canceled in rainy or stormy conditions. To learn more about pediatric vaccinations (ages 5-11), we invite you to visit the [employer] webpage. https://www.Docalyticss.org/pages/6025-Ejgmn-Uorlvgzfsbc-Knjbzhqzxn-Ffawp-Vhp stions.htmlTo learn more about the COVID-19 vaccine, we invite you to visit the CDC website for a list of frequently asked questions. https://www.cdc.gov/coronavirus/2019-ncov/vaccines/faq.html [facility] Patient Portal Access Instructions: Stay connected with your healthcare team and access your personal medical information anytime with the [facility] Patient Portal. If you would like a full copy of your medical records please contact the [facility] Medical Records Department Friday through Friday between 8a.m. and 4:30p.m. Please follow the directions below to access the portal: 1.Access the email account you provided upon registration to the [facility].2.Look for an invitation email from [facility].3.Open the email and access the invitation link: Accept Invitation to [facility].Fill in the required britt to create your account. Sign into [email or web address] with your username and password that you [...] you will allow to register on the [facility] Patient Portal for access to your information. You can also access the [facility] Patient Portal on the [employer] dylan. Simply click on Health Records under FitBionic and then click on the Alminder logo. HOW TO SAFELY DISPOSE OF PRESCRIPTION [...] Call your local pharmacy or go to http://Soocial.Fanium/9E9Hd9a to find one close to you.3.Make use of household items: Use cat litter or old coffee grounds to dispose medications if other options arenot available. Mix your drugs with these household products, seal them in an airtight container andthrow it into the garbage. Call [facility]: [phone] to be sure your drugs can be [...] aware that I should contact my doctor. Patient/Tandem Mill Sticker Signature: Date/Time: Relationship to Patient: Witness Name/Signature: Date/Time: [facility] summary Author Katarina [facility] Note Date/Time March 27, 2025 12:2 4pm [facility] Medical Records Department [address] [place] [address] Transfer to [facility] MR#: [id number] Acct: [id number] Name: NANCY SY Rep #:[id number] : 1945 80 From: Katarina Fabian MD PCP: LOIS Resendiz Status:ADM I N Certification of patient admission REQUIRED AT TIME OF ADMISSION. I CERTIFY THAT POST-HOSPITAL ECF SERVICES ARE REQUIRED TO BE GIVEN ON AN IN-PATIENT BASIS BECAUSE OF THE ABOVE NAMED PATIENT'S NEED FOR [facility] CARE ON A CONTINUING BASIS FOR THE CONDITION(S) FOR WHICH HE/SHE WAS RECEIVINGIN-PATIENT HOSPITAL SERVICES PRIOR TO HIS/HER [facility]. 03/27/25 1224<Electronically signed by Katarina Fbaian MD> Diet Diet Order/Speech Therapy: INPATIENT Hospital [...] some weeks now and was seen at [facility] where he was told that he may [...] care for back pain) Katherine Brand NP, NP-C [Primary Care Provider] - Within 1 Week Disposition Disposition (needs filled in before D/C Order can be placed): Intermediate Facility 03/27/25 1224 <Electronically signed by Katarina Fabian MD> Cosigner Signature (if applicable): CC: LOIS Brnad; Dr. Merry Pham MD; Dr. Zandra Freire MD ~ [facility] Work Phone: Discharge summary Author [facility] Note Date/Time March 27, 2025 1:40 pm [facility] Medical Records Department [address] [place] [id number] Discharge Summary 03/27/25 1337 MR#: [id number] Acct: [id number] Name: NANCY SY Rep #:[id number] : 1945 80 From: Katarina Fabian MD PCP: LOIS Resendiz Status:ADM I N Location: [place] [address] Providers Date of Admission: 03/23/25 Date of [...] some weeks now and was seen at [facility] where he was told that he may [...] spine showed severe compression deformity of the L1farysvgdr body which was likely chronic and resulting [...] (Auto) 69.0, Lymph % (Auto) 12.6 L, Doddridge % (Auto) 11.8 H, Eos % (Auto) [...] IMPRESSION: Cardiomegaly with mild congestion. Reading Location: [facility] D/C Instructions Discharge Activity: Return to Normal [...] care for back pain) Katherine Brand NP, OPEN CLAIMS REPRESENTATIVE-C [Primary Care Provider] - Within 1 Week Disposition Disposition (needs filled in before D/C Order can be placed): Intermediate Facility Charges/Coding Visit Charges Inpatient E&M: 05840 Disch Hosp >30min 03/27/25 1344 <Electronically signed by Katarina Fabian MD> Cosigner Signature (if applicable): CC: OPEN CLAIMS REPRESENTATIVE-C Katherine Brand; Dr. Katarina Fabian MD~ Signed [facility] Work Phone: Evaluation + Plan note No data available for this section [facility] Evaluation + Plan note Future Appointments Appointment Date:12/10/2022 02:30:00 PM Scheduled Provider:KATHERINE BRAND Location:[facility] Appointment Type:PC OV Follow Up [facility] Evaluation + Plan note Future Appointments Appointment Date:06/10/2023 02:30:00 PM Scheduled Provider:KATHERINE BRAND APRN-SENSITOMETRIST Location:[facility] Appointment Type:PC OV [facility] Evaluation + Plan note Future Appointments Appointment Date:04/24/2023 01:30:00 PM Scheduled Provider:KATHERINE BRAND MANAGER PERIOPERATIVE-SENSITOMETRIST Location:[facility] Appointment Type:PC OV Appointment Date:06/10/2023 02:30:00 PM Scheduled Provider:KATHERINE BRAND MANAGER PERIOPERATIVE-SENSITOMETRIST Location:[facility] Appointment Type:PC OV Future Scheduled Tests Laboratory* Protein Electrophoresis Urine 04/15/23 [facility] Evaluation + Plan note Future Appointments Appointment Date:10/23/2023 02:00:00 PM Scheduled Provider:KATHERINE BRAND APRN-SENSITOMETRIST Location:[facility] Appointment Type:PC OV Future Scheduled Tests Laboratory* Ferritin 10/12/23 * Iron Level 10/12/23 * Protein Electrophoresis Urine 04/15/23 * Vitamin B12 Level 10/12/23 * Complete Blood Count 10/12/23 * Lipid Profile 10/12/23 * Complete Metabolic Panel 10/12/23 [facility] Evaluation + Plan note Future Appointments Appointment Date:10/21/2023 03:00:00 PM Scheduled Provider:KATHERINE BRAND MANAGER PERIOPERATIVE-SENSITOMETRIST Location:[facility] Appointment Type:PC OV Future Scheduled Tests Laboratory* Ferritin 10/12/23 * Iron Level 10/12/23 * Protein Electrophoresis Urine 04/15/23 * Vitamin B12 Level 10/12/23 * Complete Blood Count 10/12/23 * Lipid Profile 10/12/23 * Complete Metabolic Panel 10/12/23 Radiology* MRI Spine Lumbar w/o Contrast 10/15/23 [facility] Evaluation + Plan note Future Appointments Appointment Date:03/09/2024 03:30:00 PM Scheduled Provider:KATHERINE BRAND MANAGER PERIOPERATIVE-SENSITOMETRIST Location:[facility] Appointment Type:PC OV Future Scheduled Tests Laboratory* Ferritin 10/12/23 * Iron Level 10/12/23 * Protein Electrophoresis Urine 04/15/23 * Vitamin B12 Level 10/12/23 * Complete Blood Count 10/12/23 * Lipid Profile 10/12/23 * Complete Metabolic Panel 10/12/23 [facility] Evaluation + Plan note Future Appointments Appointment Date:08/18/2024 03:00:00 PM Scheduled Provider:KATHERINE BRAND APRN-BERTHA Location:[facility] Appointment Type:PC OV [facility] [place] aluation + Plan note Future Appointments Appointment Date:07/08/2024 03:00:00 PM Scheduled Provider:KATHERINE BRAND Location:[facility] Appointment Type:PC OV Appointment Date:08/18/2024 03:00:00 PM Scheduled Provider:KATHERINE BRAND Location:[facility] Appointment Type:PC OV Future Scheduled Tests Radiology* BD Bone Density DEXA Axial Skeleton Adult (21 yrs or older) 06/03/24 [facility] Evaluation + Plan note Future Appointments Appointment Date:07/08/2024 03:00:00 PM Scheduled Provider:KATHERINE BRAND APRN-BERTHA Location:[facility] Appointment Type:PC OV Appointment Date:08/18/2024 03:00:00 PM Scheduled Provider:KATHERINE BRAND APRN-BERTHA Location:[facility] Appointment Type:PC OV [facility] Evaluation + Plan note Future Appointments Appointment Date:08/05/2024 02:30:00 PM Scheduled Provider:KATHERINE BRAND APRN-BERTHA Location:[facility] Appointment Type:PC OV Future Scheduled Tests Laboratory* Vitamin D Level 07/25/24 [facility] Evaluation + Plan note Future Appointments Appointment Date:11/03/2024 03:00:00 PM Scheduled Provider:KATHERINE BRAND APRN-SENSITOMETRIST Location:[facility] Appointment Type:PC OV Future Scheduled Tests Laboratory* Prostate Specific Antigen 11/03/24 * Complete Blood Count 11/03/24 * Lipid Profile 11/03/24 * Vitamin D Level 11/03/24 * Vitamin D Level 07/25/24 * Complete Metabolic Panel 11/03/24 [facility] Evaluation + Plan note Future Appointments Appointment Date:11/03/2024 03:00:00 PM Scheduled Provider:KATHERINE BRAND APRN-SENSITOMETRIST Location:[facility] Appointment Type:PC OV Diagnostic Tests Pending * Testosterone,Free and Total 10/08/24 Future Scheduled Tests Laboratory* Vitamin D Level 11/03/24 * Vitamin D Level 07/25/24 [facility] Evaluation + Plan note Future Appointments Appointment Date:11/03/2024 03:00:00 PM Scheduled Provider:KATHERINE BRAND APRN-BERTHA Location:[facility] Appointment Type:PC OV Future Scheduled Tests Laboratory* Vitamin D Level 11/03/24 * Vitamin D Level 07/25/24 [facility] picoChipaluation + Plan note Future Appointments Appointment Date:03/23/2025 02:30:00 PM Scheduled Provider:KATHERINE BRAND APRN-BERTHA Location:[facility] Appointment Type:PC OV Appointment Date:05/05/2025 03:00:00 PM Scheduled Provider:KATHERINE BRAND APRN-BERTHA Location:[facility] Appointment Type:PC OV Future Scheduled Tests Laboratory* Vitamin D Level 11/03/24 * Vitamin D Level 07/25/24 [facility] picoChipaluation + Plan note Future Appointments Appointment Date:03/23/2025 02:30:00 PM Scheduled Provider:KATHERINE BRAND APRN-BERTHA Location:[facility] Appointment Type:PC OV Appointment Date:05/05/2025 03:00:00 PM Scheduled Provider:KATHERINE BRAND APRN-BERTHA Location:[facility] Appointment Type:PC OV Future Scheduled Tests Laboratory* Basic Metabolic Panel 03/24/25 * Vitamin D Level 11/03/24 * Vitamin D Level 07/25/24 [facility] Evaluation noteNo assessment information available [facility] Work Phone: Evaluation note* Diagnosis Onset Date Resolution Status Admit Date Acute on chronic back pain acute March 23, 2025 8:15pm [facility] Work Phone: Hospital Discharge instructions No data available for this section [facility] Hospital Discharge instructionsAdditional Instructions amlodipine stopped as it can cause lower extremity swelling also Date of Discharge: 03/27/25[facility] Work Phone: Progress note No data available for this section [facility] Reason for referral (narrative)No reason for referral information availableMartin [facility] Hospital Work Phone: Chief Complaint and Reason [...] 8 :15pm Lumbar compression fracture March 23, 2 025 8:15pm Thoracic compression fracture March 23, [...] Do you have a Healthcare Power of Consumer Marketing Analyst? No March 23, 2025 4:56pm Advance Directive Response Recorded Date/ Time Do you have a Healthcare Power of Consumer Marketing Analyst? No March 23, 2025 10:27pm Additional Source [...] Active Member Role/Relationship Status Dates Katherine Brand OPEN CLAIMS REPRESENTATIVE, OPEN CLAIMS REPRESENTATIVE-C Primary Care Provider Active Team Status: Active Member Role/Relationship Status Dates Katherine Brand OPEN CLAIMS REPRESENTATIVE, OPEN CLAIMS REPRESENTATIVE-C Primary Care Provider Active Start: March 23, 2025 Dr. Marco Camacho DO Emergency Provider Active Start: March 23, 2025 Dr. Merry Pham MD Admit Provider Active St art: March 23, 2025 Dr. Merry Pham MD Attending Provider Active Start: March 23, 2025 Dr. Merry Pham MD Other Provider Active St art: March 23, 2025 Team Status: Inactive Member Role/Relationship Status Dates Katherine Brand OPEN CLAIMS REPRESENTATIVE, OPEN CLAIMS REPRESENTATIVE-C Primary Care Provider Active Start: March 23, 2025 End: March 27, 2025 Dr. Marco Camacho DO Emergency Provider Active Start: March 23, 2025 End: March 27, 2025 Dr. Merry Pham MD Admit Provider Active St art: March 23, 2025 End: March 27, 2025 Dr. Merry Pham MD Other Provider Active St art: March 23, 2025 End: March 27, 2025 Dr. Zandra Freier MD Other Provider Active Star t: March 23, 2025 End: March 27, 2025 Dr. Katarina Fabian MD Attending Provider Active Start: March 23, 2025 End: March 27, 2025 Team Status: Active Member Role/Relationship Status Dates Katherine Brand OPEN CLAIMS REPRESENTATIVE, OPEN CLAIMS REPRESENTATIVE-C Primary Care Provider Active Start: March 24, 2025 Dr. Shady Loving MD Attending Provider Activ e Start: March 24, 2025 Team Status: Active Member Role/Relationship Status Dates Katherine Brand OPEN CLAIMS REPRESENTATIVE, OPEN CLAIMS REPRESENTATIVE-C Primary Care Provider Active Start: March 24, [...] Member Role/Relationship Status Dates Katherine Brand NP, OPEN CLAIMS REPRESENTATIVE-C Primary Care Provider Active Start: March 25, [...] Member Role/Relationship Status Dates Katherine Brand NP, OPEN CLAIMS REPRESENTATIVE-C Primary Care Provider Active Start: March 25, [...] Member Role/Relationship Status Dates Katherine Brand NP, OPEN CLAIMS REPRESENTATIVE-C Primary Care Provider Active Start: March 26, [...] Active Member Role/Relationship Status Dates Katherine Brand OPEN CLAIMS REPRESENTATIVE, OPEN CLAIMS REPRESENTATIVE-C Primary Care Provider Active Start: March 27, [...] content) DATE CREATED AUTHOR 05/06/2024 [facility] ([place]) DATE CREATED AUTHOR AUTHOR'S ORGANIZ ATION 03/13/2025 [facility] DATE CREATED AUTHOR AUTHOR'S ORGANIZ ATION 04/11/2025 [facility] FOR RECORDS PERTAINING TO PATIENTS WHO ARE [...] BE BASED ON THE PRIMARY CLINICAL RECORDS. [facility] [employer] [facility]. provides no warranty or guarantee of the accuracy or completeness of information in this document.
== END | disposition home or self-care (01) ==
LOC: CT 06:58
PROVIDERS: PCP Nurse Practitioner Primary Care; Referring Provider Family Medicine Geriatric Medicine; Visit Provider Family Medicine Geriatric Medicine
DX: G31.9 Degenerative disease of nervous system, unspecified (principal); W18.09XA Striking against other object with subsequent fall, initial encounter
CPT/HCPCS: 70450

== ENCOUNTER → 2025-06-22 | Outpatient (CLI) | payer MEDICARE, BC, SELFPAY ==
[2025-06-22 14:40] LABS: Hematocrit 39.0 % (40-54); Hemoglobin 13.1 g/dL (13.0-16.5); Immature Granulocytes Count 0.080 X10^3/uL (0.0-0.0); Mean Corp Hgb Conc 33.6 g/dL (32-36); Mean Corpuscular Volume 94.7 fL (80-94); Mean Platelet Vol. 8.7 fl (6.2-12.0); NRBC Flagged by Analyzer 0 % (0-5); Platelet Count 324 K/mm3 (150-450); RBC Distribution Width CV 15.1 % (11.6-14.6); RBC Distribution Width SD 52.1 fl (35.1-43.9); Red Blood Count 4.12 M/mm3 (4.6-6.2); White Blood Count 9.5 K/mm3 (4.4-11.0)
[2025-06-22 16:18] LABS: AST(SGOT) 16 U/L (<=37); Alanine Aminotransfer ALT/SGPT 9 U/L (<=46); Albumin, Serum 3.9 g/dL (3.4-4.8); Alkaline Phosphatase 72 U/L (40-129); Anion Gap 8 (5-15); BUN 11 mg/dL (4-19); BUN/Creat Ratio 16.6 RATIO (10-20); Calcium,Total 9.1 mg/dL (7.6-11.0); Carbon Dioxide 28.8 mmol/L (21.0-32.0); Chloride 106 mmol/L (98-108); Globulin 2.8 g/dL (2.2-4.2); Glucose 100 mg/dL (70-99); Potassium 3.7 mmol/L (3.3-5.1); Vitamin D,25 Hydroxy 95.7 ng/mL (30-100)
[2025-06-22 16:23] LABS: PTHIN 50 pg/mL (11-61)
[2025-06-30 13:08] LABS: Testosterone, % Free 1.20 % (1.50-4.20); Testosterone, Free 6.00 ng/dL (5.00-21.00)
== END | disposition home or self-care (01) ==
LOC: POLAB3 14:14
PROVIDERS: Internal Medicine Endocrinology, Diabetes & Metabolism; PCP Family Medicine Geriatric Medicine; Visit Provider Family Medicine Geriatric Medicine
DX: I10 Essential (primary) hypertension (principal); E55.9 Vitamin D deficiency, unspecified
CPT/HCPCS: 36415; 80053; 82306; 83970; 84402; 84403; 84443; 85025